=== PATIENT | female | born 1975 | race Caucasian/White ===

== ENCOUNTER → 2017-05-08 06:37 | Outpatient (CLI) | payer OTHER, SELFPAY ==
[2017-05-08 08:39] LABS: ALB/GLOB Ratio 1.1 RATIO (0.9-2.4); AST(SGOT) 11 U/L (15-37); Alanine Aminotransfer ALT/SGPT 33 U/L (13-56); Albumin, Serum 3.6 g/dL (3.2-5.0); Alkaline Phosphatase 66 U/L (45-117); Anion Gap 6 (5-15); BUN 11 mg/dL (7-18); BUN/Creat Ratio 15.3 RATIO (10-20); Calcium,Total 8.6 mg/dL (8.5-10.1); Chloride 106 mmol/L (98-107); Creatinine, Serum 0.72 mg/dL (0.55-1.02); EST Glomerular Filtration Rate 95 mL/min (>60); Est Glom Filt Rate - Afr Amer 115 mL/min (>60); Globulin 3.4 g/dL (2.2-4.2); Glucose 116 mg/dL (74-106); Potassium 3.6 mmol/L (3.5-5.1); Sodium Level 140 mmol/L (136-145); Thyroid Stim Hormone (TSH) 1.88 uIU/mL (0.358-3.74)
[2017-05-08 09:09] LABS: Vitamin D,25 Hydroxy 27.4 ng/mL (19.95-100.01)
== END ==
PROVIDERS: Family Provider Family Medicine; PCP Family Medicine; Visit Provider Internal Medicine Endocrinology, Diabetes & Metabolism
DX: E66.09 Other obesity due to excess calories (principal); E04.2 Nontoxic multinodular goiter; E55.9 Vitamin D deficiency, unspecified
CPT/HCPCS: 36415; 80053; 82306; 84443

== ENCOUNTER → 2017-08-13 09:47 | Outpatient (CLI) | payer OTHER, SELFPAY ==
[2017-08-13 11:11] LABS: ALB/GLOB Ratio 1.2 RATIO (0.9-2.4); AST(SGOT) 20 U/L (15-37); Alanine Aminotransfer ALT/SGPT 44 U/L (13-56); Alkaline Phosphatase 64 U/L (45-117); Anion Gap 7 (5-15); BUN 13 mg/dL (7-18); BUN/Creat Ratio 19.7 RATIO (10-20); Calcium,Total 8.8 mg/dL (8.5-10.1); Chloride 107 mmol/L (98-107); Creatinine, Serum 0.66 mg/dL (0.55-1.02); EST Glomerular Filtration Rate 105 mL/min (>60); Est Glom Filt Rate - Afr Amer 127 mL/min (>60); Globulin 3.3 g/dL (2.2-4.2); Glucose 86 mg/dL (74-106); Potassium 3.9 mmol/L (3.5-5.1); Protein, Total 7.3 g/dL (6.4-8.2); Sodium Level 140 mmol/L (136-145); Thyroid Stim Hormone (TSH) 0.99 uIU/mL (0.358-3.74)
== END ==
PROVIDERS: Family Provider Family Medicine; PCP Family Medicine; Visit Provider Internal Medicine Endocrinology, Diabetes & Metabolism
DX: E03.8 Other specified hypothyroidism (principal)
CPT/HCPCS: 80053; 84443

== ENCOUNTER 2017-08-20 12:31 | Day surgery (SDC) | payer OTHER, SELFPAY ==
--- NOTE | 2017-08-20 | IMM_PTH ---
PATIENT: BHAVYA ALBERTO LOC: EN U#:[id number] AGE/SX: 42/F ROOM: RE08/20/[address]: Dr. Chau Preston MD : 1975 BED: DIS: 08/20/2017 SPEC #: [id number] RECD: 08/22/17 12:53 STATUS: RYAN REManisha #: [id number] SAM: 08/20/17 00:[address]: Chau Preston DEPT: IMMUNOHISTOCHEMISTRY RECD BY: Daphney Blankenship ENTERED: 08/22/17 12:54 SP TYPE: IMMUNO OTHR DR: Dr. Krystina Calle DO Tissues: A - Stomach, NOS Procedures: H Pylori (initial) PHYSICIAN & INSTITUTION [place] [address] SPECIMEN INFORMATION: Tissue Source: A ? Antral biopsy Clinical Info: Reflux, epigastric pain Specimen Number: [id number] CPT code: 62352 METHODOLOGY: Deparaffinized sections of prefer/formalin-fixed tissue or PAP/DQ stained slides are incubated with monoclonal/polyclonal antibodies/oligonucleotide probes. Localization is made via biotin free immunoperoxidase method. Appropriate controls are performed and reacted as expected. Results on target cell population are indicated in the following table: RESULTS: ANTIBODY / CLONE RESULT Block A H Pylori (polyclonal) negative These tests were developed and their performance characteristics determined by [facility]. They may not have been cleared or approved by the U.S. Food and Drug Administration. The FDA has determined that such clearance or approval is not necessary. INTERPRETATION: A. Antral biopsy: Negative for Helicobacter pylori organisms. SJ:judy 08/22/17
--- NOTE | 2017-08-20 | EGD_PTH ---
PATIENT: BHAVYA ALBERTO LOC: EN U#:[id number] AGE/SX: 42/F ROOM: RE08/20/[address]: Dr. Chau Preston MD : 1975 BED: DIS: 08/20/2017 SPEC #: [id number] RECD: 08/20/17 16:25 STATUS: GUTIERREZMica ROBI #: [id number] SAM: 08/20/17 00:[address]: Chau Preston DEPT: SURGICAL PATHOLOGY RECD BY: Duong Hameed ENTERED: 08/21/17 08:58 SP TYPE: EGD BIOPSY JUNG DR: Dr. Krystina Calle DO Tissues: A - Gastric mucous membrane B - Gastric fundus C - Gastric mucous membrane D - Esophageal mucous membrane Procedures: Surgery Specimen Level IV HEADER OPERATION: EGD PRE-OP DIAGNOSIS: Reflux, epigastric pain TISSUE SUBMITTED: A ? Antral biopsy for path, B ? Fundic polyp biopsy, C ? GE function biopsy, D ? Mid esophageal biopsy MICROSCOPIC DIAGNOSIS A. Antral biopsy: Mild gastritis. See microscopic description and comment. B. Fundic polyp, biopsy: Consistent with fundic gland polyp. C. GE junction biopsy: Fragment of squamous mucosa with changes consistent with gastroesophageal reflux disease. D. Mid esophageal biopsy: Fragment of squamous mucosa with mild chronic inflammation. SJ:rg 08/22/17 COMMENT A. The results of immunohistochemistry for Helicobacter pylori will be reported separately ([id number]). MICROSCOPIC DESCRIPTION Slides are reviewed. A. The specimen shows fragments of gastric mucosa with chronic inflammatory cell infiltrates in the lamina propria consisting of lymphocytes and plasma cells, consistent with mild chronic gastritis. GROSS DESCRIPTION A - Received in fixative is one container labeled with the patient's name and designated antral biopsy. The specimen consists of one irregular fragment of light roach soft tissue that measures 0.5 x 0.2 x 0.1 cm. The specimen is totally submitted in one cassette. B - Received in fixative is one container labeled with the patient's name and designated fundic polyp biopsy. The specimen consists of one irregular fragment of light roach soft tissue that measures 0.4 x 0.3 x 0.1 cm. The specimen is totally submitted in one cassette. C - Received in fixative is one container labeled with the patient's name and designated GE junction biopsy. The specimen consists of one irregular fragment of light roach soft tissue that measures 0.7 x 0.2 x 0.1 cm. The specimen is totally submitted in one cassette. D - Received in fixative is one container labeled with the patient's name and designated mid esophageal biopsy. The specimen consists of one irregular fragment of light roach soft tissue that measures 0.7 x 0.3 x 0.1 cm. The specimen is totally submitted in one cassette. / SJ:rg 08/21/17 TC:3 CPT: 31146 x4
[2017-08-20 12:48] LABS: Internal QC Validated? YES +Cl - CLEAR BKGD; Pregnancy, Urine Negative Negative
[2017-08-20 13:01] VITALS: BP 112/54; PULSE 77; RESP 14; TEMP 36.9; O2SAT 97; BMI 37.2
[2017-08-20 16:16] VITALS: BP 105/69; BP 112/54; PULSE 87; RESP 16; TEMP 37; O2SAT 94
--- NOTE | 2017-08-20 16:18 | OP.PCM_ITS ---
Report of Operation Date of Procedure: 08/20/17 Pre-Operative Diagnosis: GERD, dysphagia to pills Post-Operative Diagnosis: proximal gastritis, small hiatal hernia, gastric polyp , distal esophagitis, Surgery/Procedure Performed:: EGD with Biopsy Type of Anesthesia:: MAC Anesthesiologist: Christian Roberts - ASA2 Specimen's removed: gastric, h pylori and path, gastric polyp, distal esophagus , mid esophagus Description of Procedure: The patient was brought to the endoscopy suite. Sign in was performed verifying patient, site, planned procedure, critical nursing information, the patient was monitored with cardiac, pulse oximetric, and blood pressure monitoring devices. Monitored anesthetic care was provided for sedation. Following IV sedation and after the oropharynx was sprayed with Cetacaine spray , a video gastroscope was inserted in the oropharynx and advanced down the esophagus without difficulty. The scope was advanced through the stomach, through the pylorus through the duodenum to the proximal jejunum. the jejunum and duodenum appeared unremarkable. The antral region appeared normal to trace gastritis. Biopsies obtained for H. pylori and pathology. As the scope was retroflexed. The patient noted to have a polyp in the proximal stomach. This was removed via polypectomy, biopsy with cold biopsy forceps. There was also some proximal gastric erosions consistent with proximal gastritis. The patient is small hiatal hernia. The distal esophagus demonstrated was felt to be reflux changes. A biopsy was performed. The distal esophagus. The mid esophagus appeared unremarkable. There was a mid esophageal biopsy to rule out eosinophilic esophagitis. The patient tolerated the procedure well and was brought to recovery in stable condition. she is being discharged with prescription for Prilosec and plans to follow up my office in one week.
[2017-08-20 16:20] VITALS: BP 105/69; BP 112/54; PULSE 80; RESP 18; O2SAT 95
[2017-08-20 16:25] VITALS: BP 112/54; BP 113/70; PULSE 78; RESP 18; O2SAT 96
[2017-08-20 16:34] VITALS: BP 112/54; BP 117/73; PULSE 70; RESP 16; TEMP 37; O2SAT 97
[2017-08-20 16:57] VITALS: BP 112/54
--- NOTE | 2017-08-21 19:12 | HP.PCM_ITS ---
History and Physical Date of Admission: 08/20/17 HISTORY AND PHYSICAL ? Libia Olivas 1975 ? REFERRING PHYSICIAN: ~~Krystina Calle DO ? CHIEF COMPLAINT: ~~Consult (Consult Gastritis/ dysphagia) ? HPI: The patient is a 42 year old female referred for endoscopy. ~Libia notes no history of colon complaints. ? The patient notes epigastric pain and difficulty swallowing for at least the last 2 months. ~She notes a burning more in the epigastrium. ~She notes the pain gets worse after eating foods. ~She has a long-standing history of acid reflux and has taken Tums in the past, but notes that her symptoms of worsened again over these last 2 months. ~The patient start [id number]-lhe-bxiotnd Prilosec for a few weeks and this caused resolution of her symptoms. ~When she stopped her medications, the symptoms returned immediately. ? Libia has not~undergone prior endoscopy. ~ ? The patient is being seen by me today at the request of Dr. Krystina Calle, ~ for my opinion and advice regarding epigastric pain likely peptic ulcer disease. ? ? PAST MEDICAL HISTORY PAST MEDICAL HISTORY Diagnosis Date ? Hypothyroid ? ? Obesity ? ? Sleep apnea ? ? ? PAST SURGICAL HISTORY PAST SURGICAL HISTORY Procedure Laterality Date ? SECTION HX ? ? ? D&C (MISSED AB 2ND TRIMESTER) ? ? HYSTERECTOMY HX ? 2013 ? LAP CHOLECYSTECT/CHOLANGIOGRAPHY ? 09/06/09 ? Normal IOC ? LASIK Bilateral 2006 ? ? CURRENT MEDICATIONS ? Current Outpatient Prescriptions: Cholecalciferol, Vitamin D3, (VITAMIN D) 1,000 unit cap Take 1,000 Units by mouth once daily. cyanocobalamin (VITAMIN B-12) 1,000 mcg tab Take 1,000 mcg by mouth once daily. Ascorbic Acid (VITAMIN C) 1,000 mg tablet Take 1,000 mg by mouth once daily. calcium carbonate (CALCARB 600 ORAL) Take by mouth. PROGESTERONE MICRONIZED ORAL Take ~by mouth. levothyroxine (SYNTHROID) 50 mcg tablet Take 75 mcg by mouth daily before breakfast. MULTI-VITAMIN ORAL Take ~by mouth. ? No current facility-administered medications for this visit. ? ALLERGIES: Nubain [Nalbuphine Hcl] ? PERSONAL HISTORY: SOCIAL HISTORY Social History ~~Marital status: ~~~~~~~~~~~~Spouse name: ~~~~~~~~~~~~~~~~~~ ~~Years of education: ~~~~~~~~~~~~~~~~Number of children: ~~~~~~~~~~ ? Social History Main Topics ~~Smoking status: Never Smoker ~~~~~~~~~~~~~~~~~~~~~~~~~~~~~~~~~~~~~~~~~~~~~~~~~ ~~~~~~~~ ? ~~Alcohol use: Yes ~~~~~~~~ ~~~~~Comment: Not often ~~Drug use: No ~~~~~~~~~ ~~Sexual activity: Yes ~~~~~~~~~~~~~~Partners with: Male ~~~~~ control/protection: Tubal Ligation ? ? FAMILY HISTORY: FAMILY HISTORY FAMILY HISTORY Problem Relation Age of Onset ? Hypertension Mother ? ? Heart Mother ? ? Heart Father ? ? Cancer Father ? ? ? thyroid ? Lipids Father ? ? Hypertension Father ? ? Stroke Paternal Grandfather ? ? REVIEW OF SYMPTOMS: ~~The review of systems data was entered by the nurse and reviewed by me ? There are no exam notes on file for this visit. ? REVIEW OF SYSTEMS: ?General:???The patient denies?fatigue, denies?weight loss, denies?weight gain, denies?feeling hot, and denies?feelings of cold. ?Eyes: ?The patient denies?glaucoma, denies?eye injury/surgery, wears? glasses or contacts. ?Ear/Nose/Throat: ?The patient denies?allergies, denies?hayfever, denies? ear infections, and denies?bloody noses. ?Cardiovascular: ?The patient denies?chest pain, denies?heart disease, denies?high blood pressure,denies?cardiac stent, denies?prior heart attack, denies?irregular heart beat, denies?high cholesterol, ?denies?poor circulation, denies?heart failure, other cardiac issues, denies?claudication, denies?cold feet, denies?peripheral arterial stent. ?Respiratory: ?The patient denies?tuberculosis, denies?pneumonia, denies? frequent cough, denies?pulmonary embolism, denies?shortness of breath, and denies?coughing up blood. ?Gastrointestinal: ?The patient NOTES?difficulty swallowing, denies?acid reflux, denies?ulcers, denies?vomiting, denies?jaundice/hepatitis, denies? gallbladder problems, denies?black or tarry stools, denies?hemorrhoids, denies? bleeding from rectum, denies?diverticulitis, denies?constipation, denies? diarrhea, denies?loss of stool control, and denies?hernias. ?Kidney/Bladder: ?The patient denies?kidney stones, denies?urine infections , and denies?bloody urine. ?Skin: ?The patient denies?a history of skin cancer, denies?bleeding/ changing moles, and denies?a history of skin rash. ?Neurologic: ?The patient denies?a history of epilepsy/convulsions, denies? headaches, denies?head/spinal injuries, and denies?stroke/TIA. ?Psychiatric: ?The patient denies?psychiatric medications, denies?depression , and denies?voices, denies?substance abuse. ?Endocrine: ?The patient NOTES?thyroid disorders, denies?diabetes, and denies?hormonal problems. ?Hematologic: ?The patient denies?a history of bruising, denies?bleeding, and denies?anemia, denies?blood clots. ?Infections: ?The patient denies?a history of measles and mumps, denies? rheumatic fever, and denies?sexually transmitted diseases. ?Musculoskeletal: ?The patient denies?back pain/injury, denies?back problems , denies?sciatica, denies?knee/foot trouble, denies?arthritis, or denies?gout. ? ? When was patient's last Mammogram screening? None ? ?Last Colonoscopy: ?None? ? Anika Cunningham LPN ? ? ~ PHYSICAL EXAMINATION: ? General: ~The patient is 42 year old female, well nourished, well hydrated in no acute distress. ~The patient is oriented to time, place, and person. ? VITALS: Blood pressure 128/68, pulse 84, temperature 37.2 ?C (98.9 ?F), height 167.6 cm (5' 6), weight 100.6 kg (221 lb 12.8 oz).~Body mass index is 35.8 kg/m ?.~ ? HEENT: ~Normal cephalic, ataumatic, pupils are equally round, sclera are anicteric, mucous membranes are moist, oropharynx is clear. ~Neck has no masses , asymmetry or lymphadenopathy. ~Thyroid is unremarkable. ? Respiratory: ~Clear to auscultation and percussion. ~Normal respiratory excursion and pattern. ? Cardiac: ~Examination is regular rate and rhythm. ? Abdominal exam: ~Soft, nontender, ~with no palpable masses. ~No hepatosplenomegaly. ~No palpable hernias. ? Rectal exam: exam deferred ? Extremities: ~no clubbing, cyanosis or edema. ~No adenopathy. ? Other: ? LABORATORY VALUES: As Noted ? RADIOLOGIC STUDIES: ~As Noted ? Assessment ~ IMPRESSION: Epigastric pain likely peptic ulcer disease ? PLAN: ~I plan to perform upper~endoscopy. ~~We discussed the risks and benefits of the planned endoscopy. ~I have informed the patient that complications can occur including failure to complete the endoscopy and perforation. ~The patient had the opportunity to ask questions concerning the planned endoscopy. ~My staff has also explained the procedure to the patient in understandable terms and has given the patient printed material concerning the procedure. ~The patient freely consents to surgery. ? ? ? I plan for monitored anesthetic care. ? Diagnoses: (R10.13) Epigastric pain ~(primary encounter diagnosis) ? A letter was sent to Dr. Krystina Calle DO~indicating the above finding for this patient. ~~ Return to Clinic: The patient is instructed to follow-up with me 1 week post operatively. ? Chau Preston MD
== END 2017-08-20 16:59 | disposition home or self-care (01) ==
LOC: EN 12:32 → AC 12:33
PROVIDERS: Family Provider Family Medicine; PCP Family Medicine; Visit Provider Surgery
PROC: 0DJ08ZZ Inspection of Upper Intestinal Tract, Via Natural or Artificial Opening Endoscopic (ICD-10-PCS; CPT 43235; principal; 2017-08-20 13:40)
DX: K21.9 Gastro-esophageal reflux disease without esophagitis (principal); K44.9 Diaphragmatic hernia without obstruction or gangrene; R13.10 Dysphagia, unspecified; K31.7 Polyp of stomach and duodenum; K29.70 Gastritis, unspecified, without bleeding; E03.9 Hypothyroidism, unspecified; E66.9 Obesity, unspecified; Z68.37 Body mass index [BMI] 37.0-37.9, adult; G47.30 Sleep apnea, unspecified; Z79.899 Other long term (current) drug therapy
CPT/HCPCS: 43239; 81025; 88305; 88342; J7120

== ENCOUNTER → 2018-01-29 11:31 | Outpatient (CLI) | payer OTHER, SELFPAY ==
[2018-02-01 11:06] LABS: HPV Reflexed? NOT INDICATED
== END ==
PROVIDERS: Visit Provider Obstetrics & Gynecology
DX: Z12.4 Encounter for screening for malignant neoplasm of cervix (principal)
CPT/HCPCS: 88175; G0145

== ENCOUNTER 2018-03-26 08:18 | Emergency (ER) | payer OTHER, SELFPAY ==
[2018-03-26 08:20] VITALS: BP 157/72; PULSE 83; RESP 12; TEMP 37.1; O2SAT 98; BMI 38.2
--- NOTE | 2018-03-26 08:32 | RAD_ITS ---
STUDY: X-RAY - LEFT KNEE REASON FOR EXAM: Female, 43 years old. Increasing knee pain and swelling. TECHNIQUE: 4 view(s) of the knee. COMPARISON: None. FINDINGS: Normal visualized distal femur. There is evidence of cortical scalloping in the proximal anterior tibia with overlying soft tissue swelling. Clinical correlation is recommended. Normal proximal tibiofibular articulation. Normal medial femorotibial compartment. Normal lateral femorotibial compartment. Normal patellofemoral articulation. Soft tissue swelling overlying the anterior proximal tibia. RAD/Knee 4 or More Views IMPRESSION: Cortical scalloping in the anterior proximal tibia as described with overlying soft tissue swelling. Clinical correlation is recommended with respect to the site of the pain. Electronically Signed: Gregg Flores MD at 9:30 EST Tel [phone], Service support ,
--- NOTE | 2018-03-26 08:32 | VDLE_ITS ---
Reason For Study: LLE pain RIGHT LEFT CFV is compressible, spontaneous, phasic, GSV is normal. competent and demonstrates normal CFV is compressible, spontaneous, phasic, augmentation. competent, and demonstrates normal Procedure augmentation. Exam performed portable in ED. FV is compressible, spontaneous, phasic, The exam was diagnostic. competent and demonstrates normal A preliminary report was called and/or faxed augmentation. to Dr. Leung & ED. POP V is compressible, spontaneous, phasic, competent and demonstrates normal augmentation. T/P Trunk is compressible. PTV is compressible. LT PerV is compressible. Interpretation Summary There is no evidence of left lower extremity deep vein thrombosis. Left greater saphenous vein appears patent and compressible segmentally. Normal flow patterns right common femoral vein. Ordering Physician: Popeye Leung Referring Physician: Krystina Calle Performed By: Conchis Bueno, PRINCE, RVT
--- NOTE | 2018-03-26 08:33 | ED.VISSUMM ---
- ER Visit Summary Date of Service: 03/26/18 Chief Complaint: Left knee and leg pain History of Present Illness: The patient is a 43 F who presents with pain to her left knee and leg that began approximately 10 days ago. Patient states the pain is constant. Patient states the pain started in her knee but is now going into her calf and ankle. Patient denies any specific trauma or injury. Patient does admit to some clicking and popping in her left knee. Patient states her swelling is worse after she has been on her feet for a long time. Patient states her pain and swelling is better in the morning when she first wakes up. Patient denies any paresthesias or weakness. She denies any fevers or chills. Physical Examination: Vital signs are stable. Patient is afebrile. Patient is in no acute distress. Musculoskeletal exam reveals tenderness over the medial aspect of the left knee. There is no effusion. There is no bony crepitance or step-off. There is no ecchymosis noted. There is no deformity noted. Range of motion was limited in flexion of the knee secondary to pain. There is pain with valgus stress testing. There is pain with Afia testing. There is no laxity appreciated. There is some mild tenderness of the left calf. There is no edema noted. Pedal pulses are equal bilateral. Sensation was intact to light touch in all digits. Test Results: X-rays of the left knee were obtained. There is no acute fracture or bony abnormality. Venous duplex of the left lower extremity was obtained. No evidence of DVT. Emergency Department Course and Treatment: Patient declined analgesics here in the emergency department. Patient was instructed to ice and elevate the left knee. Patient was instructed to follow-up with her primary care physician or Dr. Muñiz from orthopedics. Patient understood and was agreeable with the plan. All questions were answered. Disposition: Discharged home Impression: Left knee pain This note was generated with [employer] dictation software. It may contain incorrect words, spelling, and punctuation that were not noted in review of the chart prior to signing ED Disposition - Plan for ED Patient: Disposition: Home or Assisted Living Chief Complaint: Lower Extremity Injury Diagnosis: Left knee pain Instructions: ED Meniscal Injury Knee Poss Referrals: Krystina Calle DO [Primary Care Provider] - Escobar Muñiz DO [STAFF PHYSICIAN] -
== END 2018-03-26 09:41 | disposition home or self-care (01) ==
PROVIDERS: Emergency Provider Emergency Medicine; Family Provider Family Medicine; PCP Family Medicine
DX: M25.562 Pain in left knee (principal); M79.605 Pain in left leg; M79.89 Other specified soft tissue disorders; E03.9 Hypothyroidism, unspecified; Z79.899 Other long term (current) drug therapy
CPT/HCPCS: 73564; 93971; 99282

== ENCOUNTER → 2018-04-10 08:40 | Outpatient (CLI) | payer OTHER, SELFPAY ==
[2018-03-26 08:20] VITALS: BMI 38.2
--- NOTE | 2018-04-10 08:42 | BI_ITS ---
MAMMOGRAPHY - BILATERAL SCREENING REASON FOR EXAM: Female, 43 years old. Routine annual screening examination. PERTINENT HISTORY: Non-contributory. Occasional left breast pain. TECHNIQUE: Digital bilateral breast abdifatah (3D mammographic acquisition) in the CC and MLO projections. 2-D mediolateral oblique (MLO) and craniocaudad (CC) views of both breasts were obtained. CAD: Full Field Digital Mammography with Computer Added Detection was performed. COMPARISON: Comparison is made with prior study dated January 16, 2017 and May 27, 2015. FINDINGS: Breast Composition: There are scattered areas of fibroglandular density. There are no dominant masses or suspicious calcifications. The previously seen well-defined nodular density in the deep retroareolar region of the left breast is not seen at this time. No other significant abnormalities are identified. BI/SCREENING MAMM (CAD), BILAT IMPRESSION: Stable bilateral screening mammogram. Yearly follow-up mammogram recommended. (A) ASSESSMENT CATEGORY: BIRADS Category 1: Negative. A letter regarding these results will be sent to the patient by the facility within 30 days. Approximately 10% of breast cancers are not detected by mammography. A normal mammogram should not delay biopsy of a clinically suspicious abnormality. [id number] Electronically Signed: Gregg Flores MD at 10:51 EST Tel [phone], Service support ,
--- OUTSIDE RECORDS SUMMARY | 2018-06-14 21:39 | XMS RPT_ITS ---
:1975 Author Organization [facility] Support Name Relationship Address Phone MALISSA LARSON Unavailable [address] + [place] [address] PAXTON ALBERTO Unavailable [address] + [address] Unavailable [address] + [place] [address] MALISSA LARSON Unavailable [address] + [place] [address] PAXTON ALBERTO Unavailable [address] + [place] [id number] [facility] Unavailable [address] + [place] [address] MALISSA LARSON Unavailable [address] + [place] [address] PAXTON ALBERTO Unavailable [address] + [place] [phone] [facility] Unavailable [address] + [place] [address] MALISSA LARSON Unavailable [address] + [place] [address] PAXTON ALBERTO Unavailable [address] + [address] Unavailable [address] + [place] [address] MALISSA LARSON Unavailable [address] + [place] [address] PAXTON ALBERTO Unavailable [address] + [place] [phone] [facility] Unavailable [address] + [place] [address] MALISSA LARSON Unavailable [address] + [place] [phone] PAXTON ALBERTO Unavailable [address] + [address] Unavailable [address] + [place] [address] MALISSA LARSON Unavailable [address] + [place] [address] PAXTON ALBERTO Unavailable [address] + [address] Unavailable [address] + [place] [address] MALISSA LARSON Unavailable [address] + [place] [phone] PAXTON MATTA Unavailable [address] + [address] Unavailable [address] + [place] [address] Care Team Providers Name Role Phone CHAU MARTINEZ Attending Unavailable MALYS, KRYSTINA A Referring Unavailable Popeye Leung Attending Unavailable Malys, Krystina Primary Care Unavailable Deepa Shankar Attending Unavailable Deepa Shankar Referring Unavailable Malys, Krystina Primary Care Unavailable WIMYLENE, MIN Attending Unavailable WIMYLENE, MIN Referring Unavailable Malys, Krystina Primary Care Unavailable ALFREDO, MIN Attending Unavailable WIMYLENE, MIN Referring Unavailable Malys, Krystina Primary Care Unavailable Kary, Chau Attending Unavailable Malys, Krystina Primary Care Unavailable Kary, Chau Referring Unavailable Kary, Chau Attending Unavailable Malys, Krystina Primary Care Unavailable ASSESSMENT, HEALTH RISK Attending Unavailable ASSESSMENT, HEALTH RISK Referring Unavailable Malys, Krystina Primary Care Unavailable Deepa Shankar Attending Unavailable PROBLEMS PROBLEMS DATE TYPE CONDITION / CODE ATTENDING STATUS SOURCE 01/29/2018 Unknown Z12.4 - Encounter Deepa Shankar Active [facility] for screening for Community malignant neoplasm Hospital of cervix / Repository Z12.4(ICD-10) 08/13/2017 Unknown E03.8 - Other MIN FUENTES Active [facility] specified Community hypothyroidism / Hospital E03.8(ICD-10) Repository 05/08/2017 Unknown E66.09 - Other MIN FUENTES Active [facility] obesity due to Community excess calories / Hospital E66.09(ICD-10) Repository 05/08/2017 Unknown E04.2 - Nontoxic MIN FUENTES Active [facility] multinodular goiter Community / E04.2(ICD-10) Hospital Repository 05/08/2017 Unknown E55.9 - Vitamin D MIN FUENTES Active [facility] deficiency, Community unspecified / Hospital E55.9(ICD-10) Repository PROCEDURES PROCEDURES No Procedure Records FoundRESULTS RESULTS SCREENING MAMM (CAD), Observed: 04/10/2018 Status: F Source: [place] BILAT 8:42 AM [facility] REPOSITORY [facility] Imaging Services [address] [place] [address] SCREENING MAMM (CAD), BILAT MR#: [id number] Acct: [id number] Name: LIBIA ALBERTO Rep #: [id number] : 1975 F 43 From: Gregg Flores MD PCP: Krystina Calle DO Status: REG CLI Study: SCREENING MAMM (CAD), BILAT Date of Exam: 04/10/18 Exam# [id number] Ordering Dr: Deepa Shankar MD MAMMOGRAPHY - BILATERAL SCREENING REASON FOR EXAM: Female, 43 years old. Routine annual screening examination. PERTINENT HISTORY: Non-contributory. Occasional left breast pain. TECHNIQUE: Digital bilateral breast abdifatah (3D mammographic acquisition) in the CC and MLO projections. 2-D mediolateral oblique (MLO) and craniocaudad (CC) views of both breasts were obtained. CAD: Full Field Digital Mammography with Computer Added Detection was performed. COMPARISON: Comparison is made with prior study dated January 16, 2017 and May 27, 2015. FINDINGS: Breast Composition: There are scattered areas of fibroglandular density. There are no dominant masses or suspicious calcifications. The previously seen well-defined nodular density in the deep retroareolar region of the left breast is not seen at this time. No other significant abnormalities are identified. BI/SCREENING MAMM (CAD), BILAT IMPRESSION: Stable bilateral screening mammogram. Yearly follow-up mammogram recommended. (A) ASSESSMENT CATEGORY: BIRADS Category 1: Negative. A letter regarding these results will be sent to the patient by the facility within 30 days. Approximately 10% of breast cancers are not detected by mammography. A normal mammogram should not delay biopsy of a clinically suspicious abnormality. [id number] Electronically Signed: Gregg Flores MD at 10:51 EST Tel [phone], Service support , CC: Deepa Shankar MD; Krystina Calle DO Salt Refiner: Signed VENOUS DUPLEX LOWER Observed: 03/26/2018 Status: F Source: [place] EXTREMITY 4:55 PM [facility] REPOSITORY [facility] Cardiovascular Services [address] [place] [address] Venous Duplex US, Unilateral 03/26/18 0844 MR#: [id number] Acct: [id number] Name: LIBIA ALBERTO Rep #: [id number] : 1975 43 From: Ezra Tran MD Attending Dr: Status: DEP ER Ordering Dr: Popeye Leung DO Date: 03/26/18 Location: ED Sex: F C Admitted: Reason For Study: LLE pain RIGHT LEFT CFV is compressible, spontaneous, phasic, GSV is normal. competent and demonstrates normal CFV is compressible, spontaneous, phasic, augmentation. competent, and demonstrates normal Procedure augmentation. Exam performed portable in ED. FV is compressible, spontaneous, phasic, The exam was diagnostic. competent and demonstrates normal A preliminary report was called and/or faxed augmentation. to Dr. Leung AND ED. POP V is compressible, spontaneous, phasic, competent and demonstrates normal augmentation. T/P Trunk is compressible. PTV is compressible. LT PerV is compressible. Interpretation Summary There is no evidence of left lower extremity deep vein thrombosis. Left greater saphenous vein appears patent and compressible segmentally. Normal flow patterns right common femoral vein. Ordering Physician: Popeye Leung Referring Physician: Krystina Calle Performed By: Conchis Bueno RDCS, RVT 03/26/18 1654 Date Ezra Tran MD CC: Popeye Leung DO; Krystina Calle DO Date Dictated: 03/26/18 0844 Date Transcribed: 03/26/181653 Salt Refiner: Signed EMERGENCY DEPARTMENT Observed: 03/26/2018 Status: F Source: [place] SUMMARY 9:36 AM [facility] REPOSITORY [facility] Medical Records Department [address] [place] [address] Emergency Department Summary 03/26/18 0833 MR#: [id number] Acct: [id number] Name: LIBIA ALBERTO Rep #: [id number] : 1975 43 From: Popeye Leung DO PCP: Krystina Calle DO Status: REG ER - ER Visit Summary Date of Service: 03/26/18 Chief Complaint: Left knee and leg pain History of Present Illness: The patient is a 43 F who presents with pain to her left knee and leg that began approximately 10 days ago. Patient states the pain is constant. Patient states the pain started in her knee but is now going into her calf and ankle. Patient denies any specific trauma or injury. Patient does admit to some clicking and popping in her left knee. Patient states her swelling is worse after she has been on her feet for a long time. Patient states her pain and swelling is better in the morning when she first wakes up. Patient denies any paresthesias or weakness. She denies any fevers or chills. Physical Examination: Vital signs are stable. Patient is afebrile. Patient is in no acute distress. Musculoskeletal exam reveals tenderness over the medial aspect of the left knee. There is no effusion. There is no bony crepitance or step- off. There is no ecchymosis noted. There is no deformity noted. Range of motion was limited in flexion of the knee secondary to pain. There is pain with valgus stress testing. There is pain with Afia testing. There is no laxity appreciated. There is some mild tenderness of the left calf. There is no edema noted. Pedal pulses are equal bilateral. Sensation was intact to light touch in all digits. Test Results: X-rays of the left knee were obtained. There is no acute fracture or bony abnormality. Venous duplex of the left lower extremity was obtained. No evidence of DVT. Emergency Department Course and Treatment: Patient declined analgesics here in the emergency department. Patient was instructed to ice and elevate the left knee. Patient was instructed to follow-up with her primary care physician or Dr. Muñiz from orthopedics. Patient understood and was agreeable with the plan. All questions were answered. Disposition: Discharged home Impression: Left knee pain This note was generated with [email or web address] dictation software. It may contain incorrect words, spelling, and punctuation that were not noted in review of the chart prior to signing ED Disposition - Plan for ED Patient: Disposition: Home or Assisted Living Chief Complaint: Lower Extremity Injury Diagnosis: Left knee pain Instructions: ED Meniscal Injury Knee Poss Referrals: Krystina Calle DO [Primary Care Provider] - Escobar Muñiz DO [STAFF PHYSICIAN] - What to do if you have Problems For any increased pain, shortness of breath, bleeding, nausea or vomiting, chest pain, or any unexpected problems, contact your Primary Care Provider. Call [facility] ([phone]) or report to the closest Emergency Room. Call 911 if necessary. 03/26/18 0936 <Electronically signed by Popeye Leung DO> Date Popeye Leung DO Cosigner Signature (If Indicated): Date CC: Krystina Calle DO KNEE 4 OR MORE Observed: 03/26/2018 Status: F Source: [place] VIEWS 8:33 AM [facility] REPOSITORY [facility] Imaging Services [address] [place] [address] Knee 4 or More Views MR#: [id number] Acct: [id number] Name: LIBIA ALBERTO Rep #: [id number] : 1975 F 43 From: Gregg Flores MD PCP: Krystina Calle DO Status: REG ER Study: Knee 4 or More Views Date of Exam: 03/26/18 Exam# [id number] Ordering Dr: Popeye Leung DO STUDY: X-RAY - LEFT KNEE REASON FOR EXAM: Female, 43 years old. Increasing knee pain and swelling. TECHNIQUE: 4 view(s) of the knee. COMPARISON: None. FINDINGS: Normal visualized distal femur. There is evidence of cortical scalloping in the proximal anterior tibia with overlying soft tissue swelling. Clinical correlation is recommended. Normal proximal tibiofibular articulation. Normal medial femorotibial compartment. Normal lateral femorotibial compartment. Normal patellofemoral articulation. Soft tissue swelling overlying the anterior proximal tibia. RAD/Knee 4 or More Views IMPRESSION: Cortical scalloping in the anterior proximal tibia as described with overlying soft tissue swelling. Clinical correlation is recommended with respect to the site of the pain. Electronically Signed: Gregg Flores MD at 9:30 EST Tel [phone], Service support , CC: Popeye Leung DO; Krystina Calle DO Salt Refiner: Signed PAP I-G W/RFX HRHPV Collected: 01/29/2018 Status: F Source: [place] 9:45 AM [facility] REPOSITORY Order Comment: CYTOLOGY INFORMATION: - CLINICAL INFORMATION: HYSTERECTOMY - DATE LMP/MENOPAUSE: - COLLECTION VIAL: Thin Prep Vial - OBEDIENCE TRAINER SOURCE: VAGINAL - COLLECTION TECHNIQUE: BRUSH/SPATULA Specimen Comment: [id number] Specimen Comment: Source.............Vagina Specimen Comment: LMP / Prev Treat...Hyst Specimen Comment: No. of containers..01 ThinPrep Vial TYPE CODE TESTS RESULT OUT OF RANGE REFERENCE UNITS LAB L7400.0800 . Normal DIAGN Comment Result Comment: NEGATIVE FOR INTRAEPITHELIAL LESION AND MALIGNANCY. LAB L7400.0900 . Normal ADEQ Comment Result Comment: Satisfactory for evaluation. No endocervical cells are present. This is consistent with a history of hysterectomy. LAB L7400.1400 . Normal PERFORM Comment Result Comment: Irene Oakley, Teletypist (ASCP) LAB L7400.2575 . Normal TEST METHOD Comment Result Comment: This liquid based ThinPrep(R) pap test was screened with the use of an image guided system. LAB L7400.2600 . Normal . COMM LAB L7400.2700 . Normal PAPSMR Comment Result Comment: The Pap smear is a screening test designed to aid in the detection of premalignant and malignant conditions of the uterine cervix. It is not a diagnostic procedure and should not be used as the sole means of detecting cervical cancer. Both false-positive and false-negative reports do occur. LAB L7400.2800 . Normal HPV RFLX Comment Result Comment: The HPV DNA reflex criteria were not met with this specimen result therefore, no HPV testing was performed. Performed at: - [facility] [id number] Supervisor Paste Plant: Kira Pearl MD, Phone: [phone] Performed By: #### L7400.0350 #### [facility] (refer to report for specific site) refer to report for address and phone number SELENA MILLER Collected: 11/26/2017 Status: F Source: [place] 6:37 AM [facility] REPOSITORY TYPE CODE TESTS RESULT OUT OF RANGE REFERENCE UNITS LAB L100.1000 4.4-11.0 K/mm3 Normal WBC 7.3 LAB L100.1200 4.2-5.4 M/mm3 Normal RBC 4.83 LAB L100.1300 12.0-15.0 g/dl Normal HGB 13.0 LAB L100.1400 37-47 % Normal HCT 39.8 LAB L100.1500 81-99 fL Normal MCV 82.4 LAB L100.1600 27.0-32.0 pg Low MCH 26.9 LAB L100.1700 32-36 g/gl Normal MCHC 32.7 LAB L100.1810 11.6-14.6 % Normal RDW CV 13.3 LAB L100.1820 35.1-43.9 fl Normal RDW SD 39.6 LAB L100.1900 150-450 K/mm3 Normal PLT 286 LAB L100.2000 6.2-12.0 fl Normal MPV 9.9 LAB L100.2110 47-70 % Normal NEUT% 66.5 LAB L100.2210 19-41 % Normal LY% 22.9 LAB L100.2310 0-10 % Normal MONO% 7.1 LAB L100.2410 0-5 % Normal EO% 2.7 LAB L100.2510 0-1 % Normal BASO% 0.5 LAB L100.2620 2.0-7.7 X10 3/uL Normal Absolute Neut 4.9 LAB L100.2720 0.83-4.51 X10 3/ul Normal Absolute Lymph 1.68 Performed By: #### L100.0200 #### [facility] [address] [facility] [place], [address] NICOTINE URINE DRUG Collected: 11/26/2017 Status: F Source: [place] SCREEN 6:37 AM [facility] REPOSITORY TYPE CODE TESTS RESULT OUT OF RANGE REFERENCE UNITS LAB L505.6250 TO BE Normal CONFIRMED Result Comment: CONFIRMATORY TESTING FOR ALL POSITIVE URINE DRUG SCREEN RESULTS WILL ONLY BE SENT OUT UPON PHYSICIAN ORDER. The results of Urine Drug Screen methods provide only preliminary analytical test results. A more specific alternate chemical method must be used in order to obtain a confirmed analytical result. Gas chromatography/mass spectrometery (GC/MS) is the preferred confirmatory method. Clinical consideration and professional judgement should be applied to any drug of abuse test result, particularly when preliminary positive results are used. LAB L505.6270 <200 ng/mL Normal COT DRG Negative SCREEN Result Comment: Cotinine is the first-stage metabolite of Nicotine. Performed By: #### L505.6240 #### [facility] [address] [place], [address] EMPLOYEE PROFILE Collected: 11/26/2017 Status: F Source: [place] 6:37 AM [facility] REPOSITORY TYPE CODE TESTS RESULT OUT OF RANGE REFERENCE UNITS LAB L501.0100 74-106 mg/dL High GLU 120 Result Comment: Fasting Glucose result from 100 to 125 mg/dL suggests IMPAIRED HOMEOSTASIS per A.D.A. criteria. Please note revised GLUCOSE reference range effective 2017. LAB L501.1000 7-18 mg/dL Normal BUN 11 LAB L501.1100 0.55-1.02 mg/dL Normal CREAT,SERUM 0.73 Result Comment: The validity of the calculated GFR AND GFRAA in patients over 70 years has not been determined. Clinical correlation is essential. LAB L501.1110 >60 mL/min Normal EST GFR 94 Result Comment: Non- GFR Calc LAB L501.1115 >60 mL/min Normal EST GFR - AA 113 Result Comment: GFR Calc LAB L501.1300 10-20 RATIO Normal BUN/CRE 15.1 LAB L501.1400 2.6-6.0 mg/dL Normal URIC 5.8 Result Comment: The drugs N-Acetylcysteine and Metamizole may falsely depress this assay. LAB L501.1500 6.4-8.2 g/dL Normal T PROT 6.8 LAB L501.1800 3.2-5.0 g/dL Normal ALB 3.6 LAB L501.1950 2.2-4.2 g/dL Normal GLOB 3.2 LAB L501.2000 0.9-2.4 RATIO Normal A/G 1.1 LAB L501.2200 8.5-10.1 mg/dL Low CA 8.4 LAB L501.2300 2.5-4.9 mg/dL Normal PHOS 3.8 LAB L501.4100 15-37 U/L Normal AST 20 LAB L501.4305 45-117 U/L Normal ALK P 70 LAB L501.4405 13-56 U/L Normal ALT 49 LAB L501.4600 0.20-1.00 mg/dL Normal T BILI 0.40 LAB L501.4700 0.00-0.30 mg/dL Normal D BILI 0.11 LAB L501.4900 200 mg/dL Normal CHOL 150 Result Comment: <200 mg/dL Desirable 200-240 mg/dL Borderline >240 mg/dL High Risk LAB L501.5000 mg/dL Normal TRIG 130 Result Comment: The drugs N-Acetylcysteine and Metamizole may falsely depress this assay. Serum Triglycerides Reference Interval Normal <150 mg/dL Borderline high 150 - 199 mg/dL High 200 - 499 mg/dL Very High > or = 500 mg/dL LAB L501.5300 136-145 mmol/L Normal NA 144 LAB L501.5600 3.5-5.1 mmol/L Normal K 3.7 LAB L501.5900 98-107 mmol/L High CL 108 LAB L501.6100 21.0-32.0 mmol/L Normal CO2 26.0 LAB L501.6200 5-15 Normal GAP 10 LAB L501.6400 mg/dL Low HDL 32 Result Comment: The drugs N-Acetylcysteine and Metamizole may falsely depress this assay. Reference Range HDL <40 mg/dL Low HDL Cholesterol HDL >or= 60 mg/dL High HDL Cholesterol LAB L501.6475 Normal CHOL:HDL 4.70 LAB L501.6500 0-130 mg/dL Normal LDL 92 LAB L501.6600 5-40 mg/dL Normal VLDL 26 LAB L504.2610 84-246 U/L Normal LDH 132 Performed By: #### L500.2900 #### [facility] [address] [place], [address] URINALYSIS, EMPLOYEE Collected: 11/26/2017 Status: F Source: [place] 6:37 AM [facility] REPOSITORY TYPE CODE TESTS RESULT OUT OF RANGE REFERENCE UNITS LAB L400.3000 Yellow COLOR Normal Yellow LAB L400.3050 Clear Normal CLARITY Sl. Cloudy LAB L400.3200 Normal mg/dl Normal GLUCOSE, UR Normal LAB L400.3300 Negative mg/dL Normal BILIRUBIN URINE Negative LAB L400.3400 Negative mg/dl Normal KETONE UR Negative LAB L400.3465 1.002-1.030 Normal SP.GR. DIPSTX 1.025 LAB L400.3550 5.0 - 8.0 pH UR Normal 5.0 LAB L400.3600 Negative mg/dl High PROT 15 DIPSTX LAB L400.3700 Normal mg/dl Normal UROBILI Normal LAB L400.3750 Negative Normal NITRITE UR Negative LAB L400.3780 Negative /ul High 10 OCCULT BLOOD-UR LAB L400.3800 Negative /ul LEUK Normal ESTERASE Negative Performed By: #### L400.0100 #### [facility] [address] [place], [address] PROGRESS Observed: 08/25/2017 Status: COMPLETED Source: [place] 11:29 AM [facility] REPOSITORY O ID: [id number] Author: Chau Martinez Service: (none) Author Type: Physician Type: Progress Notes Filed: 08/25/2017 11:32 AM Note Text: OPERATIVE NOTATION FOR [facility] SURGICAL PROCEDURE. August 20, 2017 Libia Alberto 1975 [id number] female PROCEDURE: EGD WITH BIOPSY - [id number] SURGEON: Sukhjinder Martinez M.D. FACS RN CIRCULATING: None DEPT: W PROVIDER: [id number] Martinez MD POS: [id number] DIAGNOSIS: (K21.9) Gastroesophageal reflux disease without esophagitis (primary encounter diagnosis) ASA CLASS: 2 - mild FINDINGS: mild gastritis, mild GERD with esophagitis COMPLICATIONS: None PMHx - PAST MEDICAL HISTORY Diagnosis Date - Hypothyroid - Obesity - Sleep apnea COMORBIDITIES - None Post Op Occurrences - None Wound Classification - Clean Contaminated Operative note dictated in the [facility] dictation system. Chau Martinez MD HISTORY AND PHYSICAL Observed: 08/21/2017 Status: F Source: [place] EXAM 7:12 PM [facility] REPOSITORY [facility] Medical Records Department [address] [place] [address] History and Physical 08/21/17 191 MR#: [id number] Acct: [id number] Name: LIBIA ALBERTO Rep #: [id number] : 1975 42 From: Chau Martinez MD PCP: Krystina Calle DO Status: DEP [facility] Location: EN History and Physical Date of Admission: 08/20/17 HISTORY AND PHYSICAL Libia Alberto 1975 REFERRING PHYSICIAN: Krystina Calle DO CHIEF COMPLAINT: Consult (Consult Gastritis/ dysphagia) HPI: The patient is a 42 year old female referred for endoscopy. Libia notes no history of colon complaints. The patient notes epigastric pain and difficulty swallowing for at least the last 2 months. She notes a burning more in the epigastrium. She notes the pain gets worse after eating foods. She has a long-standing history of acid reflux and has taken Tums in the past, but notes that her symptoms of worsened again over these last 2 months. The patient start [id number] Prilosec for a few weeks and this caused resolution of her symptoms. When she stopped her medications, the symptoms returned immediately. Libia has not undergone prior endoscopy. The patient is being seen by me today at the request of Dr. Krystina Calle DO for my opinion and advice regarding epigastric pain likely peptic ulcer disease. PAST MEDICAL HISTORY PAST MEDICAL HISTORY Diagnosis Date Hypothyroid Obesity Sleep apnea PAST SURGICAL HISTORY PAST SURGICAL HISTORY Procedure Laterality Date SECTION HX D AND C (MISSED AB 2 ND TRIMESTER) 03 HYSTERECTOMY HX 2013 LAP CHOLECYSTECT/CHOLANGIOGRAPHY 09/06/09 N ormal IOCLASIK Bilateral 2006 CURRENT MEDICATIONS ALLERGIES: Nubain [Nalbuphine Hcl] PERSONAL HISTORY: SOCIAL HISTORY Social History Marital status: Spouse name: Years of education: Number of children: Social History Main Topics Smoki ng status: Never Smoker Alcohol u se: Yes Comment: Not often Drug use: No Sexual activity: Yes Partners with: Male control/protection: Tubal Ligation FAMILY HISTORY: FAMILY HISTORY FAMILY HISTORY Problem Relation Age of Onset Hypertension Mother Heart Mother He art Father Cancer Father thyroid Lipids Father Hypertension Father Str vivien Paternal Grandfather REVIEW OF SYMPTOMS: The review of systems data was entered by the nurse and reviewed by me There are no exam notes on file for this visit. REVIEW OF SYSTEMS: General: The patient denies fatigue, denies weight loss, denies weigh t gain, denies feeling hot, and denies feelings of cold. Eyes: The patient denies glaucom a, denies eye injury/surgery, wears glasses or contacts. Ear/Nose/Throat: The patient den ies allergies, denies hayfever, denies ear infections, and denies bloody noses. Cardiovasc ular: The patient denies chest pain, denies heart disease, denies high blood pressure,denies c ardiac stent, denies prior heart attack, denies irregular heart beat, denies high cholesterol, denies poor circulation, denies heart failure, other cardiac issues, denies claudication, trinidad es cold feet, denies peripheral arterial stent. Respiratory: The patient denies tuberculo sis, denies pneumonia, denies frequent cough, denies pulmonary embolism, denies shortness of br eath, and denies coughing up blood. Gastrointestinal: The patient NOTES difficulty swallo wing, denies acid reflux, denies ulcers, deniesvomiting, denies jaundice/hepatitis, denies gall bladder problems, denies black or tarry stools, denies hemorrhoids, denies bleeding from rectum , denies diverticulitis, denies constipation, denies diarrhea, denies loss of stool control, an d denies hernias. Kidney/Bladder: The patient denies kidney stones, denies urine infectio ns, and denies bloody urine. Skin: The patient denies a history of skin cancer, denies bl eeding/changing moles, and denies a history of skin rash. Neurologic: The patient denies a history of epilepsy/convulsions, denies headaches, denies head/spinal injuries, and denies st roke/TIA. Psychiatric: The patient denies psychiatric medications, denies depression, and denies voices, denies substance abuse. Endocrine: The patient NOTES thyroid disorders, d enies diabetes, and denies hormonal problems. Hematologic: The patient denies a history o f bruising, denies bleeding, and denies anemia, denies blood clots. Infections: The jose lemus denies a history of measles and mumps, denies rheumatic fever, and denies sexually transmitt ed diseases. Musculoskeletal: The patient denies back pain/injury, denies back problems, denies sciatica, denies knee/foot trouble, denies arthritis, or denies gout. When was jose lemus's last Mammogram screening? None Last Colonoscopy: None Anika Cunningham LPN PHYSICAL EXAMINATION: General: The patient is 42 year old female, well nourished, well hydrated in no acute distress. The patient is oriented to time, place, and person. VITALS: Blood pressure 128/68, pulse 84, temperature 37.2 C (98.9 F), height 167.6 cm (5' 6), weight 100.6 kg (221 lb 12.8 oz). Body mass index is 35.8 kg/m . HEENT: Normal cephalic, ataumatic, pupils are equally round, sclera are anicteric, mucous membranes are moist, oropharynx is clear. Neck has no masses, asymmetry or lymphadenopathy. Thyroid is unremarkable. Respiratory: Clear to auscultation and percussion. Normal respiratory excursion and pattern. Cardiac: Examination is regular rate and rhythm. Abdominal exam: Soft, nontender, with no palpable masses. No hepatosplenomegaly. No palpable hernias. Rectal exam: exam deferred Extremities: no clubbing, cyanosis or edema. No adenopathy. Other: LABORATORY VALUES: As Noted RADIOLOGIC STUDIES: As Noted Assessment IMPRESSION: Epigastric pain likely peptic ulcer disease PLAN: I plan to perform upper endoscopy. We discussed the risks and benefits of the planned endoscopy. I have informed the patient that complications can occur including failure to complete the endoscopy and perforation. The patient had the opportunity to ask questions concerning the planned endoscopy. My staff has also explained the procedure to the patient in understandable terms and has given the patient printed material concerning the procedure. The patient freely consents to surgery. I plan for monitored anesthetic care. Diagnoses: (R10.13) Epigastric pain (primary encounter diagnosis) A letter was sent to Dr. Krystina Calle DO indicating the above finding for this patient. Return to Clinic: The patient is instructed to follow-up with me 1 week post operatively. Chau Martinez MD 08/21/171911 <Electronically signed by Cahu Martinez MD> Date Chau Martinez MD Cosigner Signature: Date (if applicable) CC: Krystina Calle DO; hCau Martinez MD Signed OPERATIVE REPORT Observed: 08/20/2017 Status: F Source: [place] 7:00 PM [facility] REPOSITORY [facility] Medical Records Department [address] [place] [address] Operative Report 08/20/17 1616 MR#: [id number] Acct: [id number] Name: LIBIA ALBERTO Rep #: [id number] : 1975 42 From: Chau Martinez MD PCP: Krystina Calle DO Status: DEP [facility] Location: EN Report of Operation Date of Procedure: 08/20/17 Pre-Operative Diagnosis: GERD, dysphagia to pills Post-Operative Diagnosis: proximal gastritis, small hiatal hernia, gastric polyp, distal esophagitis, Surgery/Procedure Performed:: EGD with Biopsy Type of Anesthesia:: MAC Anesthesiologist: Christian Roberts - ASA2 Specimen's removed: gastric, h pylori and path, gastric polyp, distal esophagus, mid esophagus Description of Procedure: The patient was brought to the endoscopy suite. Sign in was performed verifying patient, site, planned procedure, critical nursing information, the patient was monitored with cardiac, pulse oximetric, and blood pressure monitoring devices. Monitored anesthetic care was provided for sedation. Following IV sedation and after the oropharynx was sprayed with Cetacaine spray, a video gastroscope was inserted in the oropharynx and advanced down the esophagus without difficulty. The scope was advanced through the stomach, through the pylorus through the duodenum to the proximal jejunum. the jejunum and duodenum appeared unremarkable. The antral region appeared normal to trace gastritis. Biopsies obtained for H. pylori and pathology. As the scope was retroflexed. The patient noted to have a polyp in the proximal stomach. This was removed via polypectomy, biopsy with cold biopsy forceps. There was also some proximal gastric erosions consistent with proximal gastritis. The patient is small hiatal hernia. The distal esophagus demonstrated was felt to be reflux changes. A biopsy was performed. The distal esophagus. The mid esophagus appeared unremarkable. There was a mid esophageal biopsy to rule out eosinophilic esophagitis. The patient tolerated the procedure well and was brought to recovery in stable condition. she is being discharged with prescription for Prilosec and plans to follow up my office in one week. 08/20/17 1900 <Electronically signed by Chau Martinez MD> Date Chau Martinez MD CC: Krystina Calle DO; Chau Martinez MD Signed ,URINE Collected: 08/20/2017 Status: F Source: [place] 12:40 PM [facility] REPOSITORY TYPE CODE TESTS RESULT OUT OF REFERENCE UNITS RANGE LAB L400.8000 Negative Normal HCGUQUAL Negative Result Comment: Very dilute urine specimens, as indicated by a low specific gravity, may not contain enrollment eligibility representative levels of hCG. If is still suspected, a first morning urine specimen should be collected 48 hours later and tested. Performed By: #### [id number] #### [facility] [address] [place], [address] CNOP Observed: 08/20/2017 Status: COMPLETED Source: [place] 12:00 AM [facility] REPOSITORY Operative Note (Enc) (GENSWS) Progress Notes: Chau Martinez MD 08/25/2017 11:32 AM Signed OPERATIVE NOTATION FOR [facility] SURGICAL PROCEDURE. August 20, 2017 Libia Alberto 1975 [id number] female PROCEDURE: EGD WITH BIOPSY - [id number] SURGEON: Sukhjinder Martinez M.D. FACS RN CIRCULATING: None DEPT: WQ PROVIDER: [id number] Martinez MD POS: [id number] DIAGNOSIS: (K21.9) Gastroesophageal reflux disease without esophagitis (primary encounter diagnosis) ASA CLASS: 2 - mild FINDINGS: mild gastritis, mild GERD with esophagitis COMPLICATIONS: None PMHx - PAST MEDICAL HISTORY Diagnosis Date - Hypothyroid - Obesity - Sleep apnea COMORBIDITIES - None Post Op Occurrences - None Wound Classification - Clean Contaminated Operative note dictated in the [facility] dictation system. Chau Martinez MD Encounter Status:Closed by CHAU MARTINEZ MD on 08/25/17 EGD ([facility] SITE) Observed: 08/20/2017 Status: F Source: [place] 12:00 AM [facility] REPOSITORY Patient: LIBIA ALBERTO : 1975 (42/F) Acct Num: [id number] Phys: Chau Martinez MD Unit Num: [id number] Loc: EN Specimen: [id number] Received: 08/20/17 - 1625 Spec Type: EGD BIOPSY TISSUES TISSUES: A. Gastric mucous membrane B. Gastric fundus C. Gastric mucous membrane D. Esophageal mucous membrane COMMENT A. The results of immunohistochemistry for Helicobacter pylori will be reported separately ([id number]). GROSS DESCRIPTION A - Received in fixative is one container labeled with the patient's name and designated antral biopsy. The specimen consists of one irregular fragment of light roach soft tissue that measures 0.5 x 0.2 x 0.1 cm. The specimen is totally submitted in one cassette. B - Received in fixative is one container labeled with the patient's name and designated fundic polyp biopsy. The specimen consists of one irregular fragment of light roach soft tissue that measures 0.4 x 0.3 x 0.1 cm. The specimen is totally submitted in one cassette. C - Received in fixative is one container labeled with the patient's name and designated GE junction biopsy. The specimen consists of one irregular fragment of light roach soft tissue that measures 0.7 x 0.2 x 0.1 cm. The specimen is totally submitted in one cassette. D - Received in fixative is one container labeled with the patient's name and designated mid esophageal biopsy. The specimen consists of one irregular fragment of light roach soft tissue that measures 0.7 x 0.3 x 0.1 cm. The specimen is totally submitted in one cassette. / SJ:judy 08/21/17 TC:3 CPT: 68627 x4 HEADER OPERATION: EGD PRE-OP DIAGNOSIS: Reflux, epigastric pain TISSUE SUBMITTED: A Antral biopsy for path, B Fundic polyp biopsy, C GE function biopsy, D Mid esophageal biopsy MICROSCOPIC DESCRIPTION Slides are reviewed. A. The specimen shows fragments of gastric mucosa with chronic inflammatory cell infiltrates in the lamina propria consisting of lymphocytes and plasma cells, consistent with mild chronic gastritis. MICROSCOPIC DIAGNOSIS A. Antral biopsy: Mild gastritis. See microscopic description and comment. B. Fundic polyp, biopsy: Consistent with fundic gland polyp. C. GE junction biopsy: Fragment of squamous mucosa with changes consistent with gastroesophageal reflux disease. D. Mid esophageal biopsy: Fragment of squamous mucosa with mild chronic inflammation. SJ:judy 08/22/17 Signed Erik Jarrett 08/22/17 <signature on file> Performed By: #### PEGD #### [facility] [address] [place] [address]. [place], [place], [id number] IMMUNOHISTOCHEMISTRY Observed: 08/20/2017 Status: F Source: [place] 12:00 [facility] REPOSITORY Patient: LIBIA ALBERTO : 1975 (42/F) Acct Num: [id number] Phys: Chau Martinez MD Unit Num: [id number] Loc: EN Specimen: [id number] Received: 08/22/17 - 1253 Spec Type: IMMUNO TISSUES TISSUES: A. Stomach, NOS SPECIMEN INFORMATION: Tissue Source: A Antral biopsy Clinical Info: Reflux, epigastric pain Specimen Number: [id number] CPT code: 29868 METHODOLOGY: Deparaffinized sections of prefer/formalin-fixed tissue or PAP/DQ stained slides are incubated with monoclonal/polyclonal antibodies/oligonucleotide probes. Localization is made via biotin free immunoperoxidase method. Appropriate controls are performed and reacted as expected. Results on target cell population are indicated in the following table: RESULTS: ANTIBODY / CLONE RESULT Block A H Pylori (polyclonal) negative These tests were developed and their performance characteristics determined by [facility]. They may not have been cleared or approved by the U.S. Food and Drug Administration. The FDA has determined that such clearance or approval is not necessary. INTERPRETATION: A. Antral biopsy: Negative for Helicobacter pylori organisms. SJ:judy 08/22/17 PHYSICIAN AND INSTITUTION [address] [address] Signed Erik Harrisin 08/22/17 <signature on file> Performed By: #### PIMM #### [facility] [address] [place], [address] PROGRESS Observed: 08/16/2017 Status: COMPLETED Source: [place] 1:[address] [facility] REPOSITORY HNO ID: [id number] Author: Chau Martinez Service: (none) Author Type: Physician Type: Progress Notes Filed: 08/17/2017 12:03 PM Note Text: HISTORY AND PHYSICAL Libia Alberto 1975 REFERRING PHYSICIAN: Krystina Calle DO CHIEF COMPLAINT: Consult (Consult Gastritis/ dysphagia) HPI: The patient is a 42 year old female referred for endoscopy. Libia notes no history of colon complaints. The patient notes epigastric pain and difficulty swallowing for at least the last 2 months. She notes a burning more in the epigastrium. She notes the pain gets worse after eating foods. She has a long-standing history of acid reflux and has taken Tums in the past, but notes that her symptoms of worsened again over these last 2 months. The patient start [id number] Prilosec for a few weeks and this caused resolution of her symptoms. When she stopped her medications, the symptoms returned immediately. Libia has not undergone prior endoscopy. The patient is being seen by me today at the request of Dr. Krystina Calle DO for my opinion and advice regarding epigastric pain likely peptic ulcer disease. PAST MEDICAL HISTORY Diagnosis Date - Hypothyroid - Obesity - Sleep apnea PAST SURGICAL HISTORY Procedure Laterality Date - SECTION HX - DANDC (MISSED AB 2ND TRIMESTER) 03 - HYSTERECTOMY HX 2013 - LAP CHOLECYSTECT/CHOLANGIOGRAPHY 09/06/09 Normal IOC - LASIK Bilateral 2006 Current Outpatient Prescriptions: Cholecalciferol, Vitamin D3, (VITAMIN D) 1,000 unit cap Take 1,000 Units by mouth once daily. cyanocobalamin (VITAMIN B-12) 1,000 mcg tab Take 1,000 mcg by mouth once daily. Ascorbic Acid (VITAMIN C) 1,000 mg tablet Take 1,000 mg by mouth once daily. calcium carbonate (CALCARB 600 ORAL) Take by mouth. PROGESTERONE MICRONIZED ORAL Take by mouth. levothyroxine (SYNTHROID) 50 mcg tablet Take 75 mcg by mouth daily before breakfast. MULTI-VITAMIN ORAL Take by mouth. No current facility-administered medications for this visit. ALLERGIES: Nubain [Nalbuphine Hcl] PERSONAL HISTORY: Social History Marital status: Spouse name: Years of education: Number of children: Social History Main Topics Smoking status: Never Smoker Alcohol use: Yes Comment: Not often Drug use: No Sexual activity: Yes Partners with: Male control/protection: Tubal Ligation FAMILY HISTORY: FAMILY HISTORY Problem Relation Age of Onset - Hypertension Mother - Heart Mother - Heart Father - Cancer Father thyroid - Lipids Father - Hypertension Father - Stroke Paternal Grandfather REVIEW OF SYMPTOMS: The review of systems data was entered by the nurse and reviewed by me There are no exam notes on file for this visit. REVIEW OF SYSTEMS: General: The patient denies fatigue, denies weight loss, denies weight gain, denies feeling hot, and denies feelings of cold. Eyes: The patient denies glaucoma, denies eye injury/surgery, wears glasses or contacts. Ear/Nose/Throat: The patient denies allergies, denies hayfever, denies ear infections, and denies bloody noses. Cardiovascular: The patient denies chest pain, denies heart disease, denies high blood pressure,denies cardiac stent, denies prior heart attack, denies irregular heart beat, denies high cholesterol, denies poor circulation, denies heart failure, other cardiac issues, denies claudication, denies cold feet, denies peripheral arterial stent. Respiratory: The patient denies tuberculosis, denies pneumonia, denies frequent cough, denies pulmonary embolism, denies shortness of breath, and denies coughing up blood. Gastrointestinal: The patient NOTES difficulty swallowing, denies acid reflux, denies ulcers, denies vomiting, denies jaundice/hepatitis, denies gallbladder problems, denies black or tarry stools, denies hemorrhoids, denies bleeding from rectum, denies diverticulitis, denies constipation, denies diarrhea, denies loss of stool control, and denies hernias. Kidney/Bladder: The patient denies kidney stones, denies urine infections, and denies bloody urine. Skin: The patient denies a history of skin cancer, denies bleeding/changing moles, and denies a history of skin rash. Neurologic: The patient denies a history of epilepsy/convulsions, denies headaches, denies head/spinal injuries, and denies stroke/TIA. Psychiatric: The patient denies psychiatric medications, denies depression, and denies voices, denies substance abuse. Endocrine: The patient NOTES thyroid disorders, denies diabetes, and denies hormonal problems. Hematologic: The patient denies a history of bruising, denies bleeding, and denies anemia, denies blood clots. Infections: The patient denies a history of measles and mumps, denies rheumatic fever, and denies sexually transmitted diseases. Musculoskeletal: The patient denies back pain/injury, denies back problems, denies sciatica, denies knee/foot trouble, denies arthritis, or denies gout. ? ? When was patient's last Mammogram screening? None ? Last Colonoscopy: None ? Anika Cunningham LPN ? PHYSICAL EXAMINATION: General: The patient is 42 year old female, well nourished, well hydrated in no acute distress. The patient is oriented to time, place, and person. VITALS: Blood pressure 128/68, pulse 84, temperature 37.2 ?C (98.9 ?F), height 167.6 cm (5' 6), weight 100.6 kg (221 lb 12.8 oz). Body mass index is 35.8 kg/m?. HEENT: Normal cephalic, ataumatic, pupils are equally round, sclera are anicteric, mucous membranes are moist, oropharynx is clear. Neck has no masses, asymmetry or lymphadenopathy. Thyroid is unremarkable. Respiratory: Clear to auscultation and percussion. Normal respiratory excursion and pattern. Cardiac: Examination is regular rate and rhythm. Abdominal exam: Soft, nontender, with no palpable masses. No hepatosplenomegaly. No palpable hernias. Rectal exam: exam deferred Extremities: no clubbing, cyanosis or edema. No adenopathy. Other: LABORATORY VALUES: As Noted RADIOLOGIC STUDIES: As Noted Assessment IMPRESSION: Epigastric pain likely peptic ulcer disease PLAN: I plan to perform upper endoscopy. We discussed the risks and benefits of the planned endoscopy. I have informed the patient that complications can occur including failure to complete the endoscopy and perforation. The patient had the opportunity to ask questions concerning the planned endoscopy. My staff has also explained the procedure to the patient in understandable terms and has given the patient printed material concerning the procedure. The patient freely consents to surgery. I plan for monitored anesthetic care. Diagnoses: (R10.13) Epigastric pain (primary encounter diagnosis) A letter was sent to Dr. Krystina Calle DO indicating the above finding for this patient. Return to Clinic: The patient is instructed to follow-up with me 1 week post operatively. Chau Martinez MD CNOV Observed: 08/15/2017 Status: COMPLETED Source: [place] 1:00 PM [facility] REPOSITORY Office Visit (GENSWS) LIBIA ALBERTO ([id number]) 1975 F Date Time Provider Department 08/15/17 1:00 PM CHAU MARTINEZ During your visit today, we recorded the following information about you: Temperature Pulse Blood pressure Weight 98.9 degrees 84/minute 128/68 100.6 kg Height 1.676 m Chau Martinez MD 08/17/2017 12:03 PM Signed HISTORY AND PHYSICAL Libia Deisy 1975 REFERRING PHYSICIAN: Krystina Calle DO CHIEF COMPLAINT: Consult (Consult Gastritis/ dysphagia) HPI: The patient is a 42 year old female referred for endoscopy. Libia notes no history of colon complaints. The patient notes epigastric pain and difficulty swallowing for at least the last 2 months. She notes a burning more in the epigastrium. She notes the pain gets worse after eating foods. She has a long-standing history of acid reflux and has taken Tums in the past, but notes that her symptoms of worsened again over these last 2 months. The patient start [id number] Prilosec for a few weeks and this caused resolution of her symptoms. When she stopped her medications, the symptoms returned immediately. Libia has not undergone prior endoscopy. The patient is being seen by me today at the request of Dr. Krystina A Malys, DO for my opinion and advice regarding epigastric pain likely peptic ulcer disease. PAST MEDICAL HISTORY Diagnosis Date - Hypothyroid - Obesity - Sleep apnea PAST SURGICAL HISTORY Procedure Laterality Date - SECTION HX - DANDC (MISSED AB 2ND TRIMESTER) 03 - HYSTERECTOMY HX 2013 - LAP CHOLECYSTECT/CHOLANGIOGRAPHY 09/06/09 Normal IOC - LASIK Bilateral 2006 Current Outpatient Prescriptions: Cholecalciferol, Vitamin D3, (VITAMIN D) 1,000 unit cap Take 1,000 Units by mouth once daily. cyanocobalamin (VITAMIN B-12) 1,000 mcg tab Take 1,000 mcg by mouth once daily. Ascorbic Acid (VITAMIN C) 1,000 mg tablet Take 1,000 mg by mouth once daily. calcium carbonate (CALCARB 600 ORAL) Take by mouth. PROGESTERONE MICRONIZED ORAL Take by mouth. levothyroxine (SYNTHROID) 50 mcg tablet Take 75 mcg by mouth daily before breakfast. MULTI-VITAMIN ORAL Take by mouth. No current facility-administered medications for this visit. ALLERGIES: Nubain [Nalbuphine Hcl] PERSONAL HISTORY: Social History Marital status: Spouse name: Years of education: Number of children: Social History Main Topics Smoking status: Never Smoker Alcohol use: Yes Comment: Not often Drug use: No Sexual activity: Yes Partners with: Male control/protection: Tubal Ligation FAMILY HISTORY: FAMILY HISTORY Problem Relation Age of Onset - Hypertension Mother - Heart Mother - Heart Father - Cancer Father thyroid - Lipids Father - Hypertension Father - Stroke Paternal Grandfather REVIEW OF SYMPTOMS: The review of systems data was entered by the nurse and reviewed by me There are no exam notes on file for this visit. REVIEW OF SYSTEMS: General: The patient denies fatigue, denies weight loss, denies weight gain, denies feeling hot, and denies feelings of cold. Eyes: The patient denies glaucoma, denies eye injury/surgery, wears glasses or contacts. Ear/Nose/Throat: The patient denies allergies, denies hayfever, denies ear infections, and denies bloody noses. Cardiovascular: The patient denies chest pain, denies heart disease, denies high blood pressure,denies cardiac stent, denies prior heart attack, denies irregular heart beat, denies high cholesterol, denies poor circulation, denies heart failure, other cardiac issues, denies claudication, denies cold feet, denies peripheral arterial stent. Respiratory: The patient denies tuberculosis, denies pneumonia, denies frequent cough, denies pulmonary embolism, denies shortness of breath, and denies coughing up blood. Gastrointestinal: The patient NOTES difficulty swallowing, denies acid reflux, denies ulcers, denies vomiting, denies jaundice/hepatitis, denies gallbladder problems, denies black or tarry stools, denies hemorrhoids, denies bleeding from rectum, denies diverticulitis, denies constipation, denies diarrhea, denies loss of stool control, and denies hernias. Kidney/Bladder: The patient denies kidney stones, denies urine infections, and denies bloody urine. Skin: The patient denies a history of skin cancer, denies bleeding/changing moles, and denies a history of skin rash. Neurologic: The patient denies a history of epilepsy/convulsions, denies headaches, denies head/spinal injuries, and denies stroke/TIA. Psychiatric: The patient denies psychiatric medications, denies depression, and denies voices, denies substance abuse. Endocrine: The patient NOTES thyroid disorders, denies diabetes, and denies hormonal problems. Hematologic: The patient denies a history of bruising, denies bleeding, and denies anemia, denies blood clots. Infections: The patient denies a history of measles and mumps, denies rheumatic fever, and denies sexually transmitted diseases. Musculoskeletal: The patient denies back pain/injury, denies back problems, denies sciatica, denies knee/foot trouble, denies arthritis, or denies gout. ? ? When was patient's last Mammogram screening? None ? Last Colonoscopy: None ? Anika Cunningham LPN ? PHYSICAL EXAMINATION: General: The patient is 42 year old female, well nourished, well hydrated in no acute distress. The patient is oriented to time, place, and person. VITALS: Blood pressure 128/68, pulse 84, temperature 37.2 ?C (98.9 ?F), height 167.6 cm (5' 6), weight 100.6 kg (221 lb 12.8 oz). Body mass index is 35.8 kg/m?. HEENT: Normal cephalic, ataumatic, pupils are equally round, sclera are anicteric, mucous membranes are moist, oropharynx is clear. Neck has no masses, asymmetry or lymphadenopathy. Thyroid is unremarkable. Respiratory: Clear to auscultation and percussion. Normal respiratory excursion and pattern. Cardiac: Examination is regular rate and rhythm. Abdominal exam: Soft, nontender, with no palpable masses. No hepatosplenomegaly. No palpable hernias. Rectal exam: exam deferred Extremities: no clubbing, cyanosis or edema. No adenopathy. Other: LABORATORY VALUES: As Noted RADIOLOGIC STUDIES: As Noted Assessment IMPRESSION: Epigastric pain likely peptic ulcer disease PLAN: I plan to perform upper endoscopy. We discussed the risks and benefits of the planned endoscopy. I have informed the patient that complications can occur including failure to complete the endoscopy and perforation. The patient had the opportunity to ask questions concerning the planned endoscopy. My staff has also explained the procedure to the patient in understandable terms and has given the patient printed material concerning the procedure. The patient freely consents to surgery. I plan for monitored anesthetic care. Diagnoses: (R10.13) Epigastric pain (primary encounter diagnosis) A letter was sent to Dr. Krystina Calle DO indicating the above finding for this patient. Return to Clinic: The patient is instructed to follow-up with me 1 week post operatively. MD Anika Richardson LPN 08/16/2017 3:29 PM Signed REVIEW OF SYSTEMS: General: The patient denies fatigue, denies weight loss, denies weight gain, denies feeling hot, and denies feelings of cold. Eyes: The patient denies glaucoma, denies eye injury/surgery, wears glasses or contacts. Ear/Nose/Throat: The patient denies allergies, denies hayfever, denies ear infections, and denies bloody noses. Cardiovascular: The patient denies chest pain, denies heart disease, denies high blood pressure,denies cardiac stent, denies prior heart attack, denies irregular heart beat, denies high cholesterol, denies poor circulation, denies heart failure, other cardiac issues, denies claudication, denies cold feet, denies peripheral arterial stent. Respiratory: The patient denies tuberculosis, denies pneumonia, denies frequent cough, denies pulmonary embolism, denies shortness of breath, and denies coughing up blood. Gastrointestinal: The patient NOTES difficulty swallowing, denies acid reflux, denies ulcers, denies vomiting, denies jaundice/hepatitis, denies gallbladder problems, denies black or tarry stools, denies hemorrhoids, denies bleeding from rectum, denies diverticulitis, denies constipation, denies diarrhea, denies loss of stool control, and denies hernias. Kidney/Bladder: The patient denies kidney stones, denies urine infections, and denies bloody urine. Skin: The patient denies a history of skin cancer, denies bleeding/changing moles, and denies a history of skin rash. Neurologic: The patient denies a history of epilepsy/convulsions, denies headaches, denies head/spinal injuries, and denies stroke/TIA. Psychiatric: The patient denies psychiatric medications, denies depression, and denies voices, denies substance abuse. Endocrine: The patient NOTES thyroid disorders, denies diabetes, and denies hormonal problems. Hematologic: The patient denies a history of bruising, denies bleeding, and denies anemia, denies blood clots. Infections: The patient denies a history of measles and mumps, denies rheumatic fever, and denies sexually transmitted diseases. Musculoskeletal: The patient denies back pain/injury, denies back problems, denies sciatica, denies knee/foot trouble, denies arthritis, or denies gout. When was patient's last Mammogram screening? None Last Colonoscopy: None Anika Cunningham LPN Referring Provider: KRYSTINA CALLE [[id number]] Allergies As of Date: 08/15/2017 Noted Allergy Reaction NUBAIN (NALBUPHINE HCL) 05/23/2015 11 - Vomiting Date Reviewed: 08/15/2017 Reviewed by: Teto Mazariegos LPN - Fully Assessed Reason for Visit: Consult [173] Cmt: Consult Gastritis/ dysphagia Reason For Visit History Recorded Primary Visit Diagnosis:Epigastric pain [R10.13] Prescriptions as of 08/15/2017 Sig: CHOLECALCIFEROL (VITAMIN D3) * Take 1,000 Units by mouth onc* CYANOCOBALAMIN (VIT B-12) 1,0* Take 1,000 mcg by mouth once * ASCORBIC ACID (VITAMIN C) 1,0* Take 1,000 mg by mouth once d* CALCARB 600 ORAL Take by mouth. PROGESTERONE MICRONIZED ORAL Take by mouth. LEVOTHYROXINE 50 MCG TABLET Take 75 mcg by mouth daily be* MULTI-VITAMIN ORAL Take by mouth. Problem List As Of Date 08/15/2017 Noted Resolved Other Specified Disorder of Gallbladder [K82.8] INVALID FOR* Sebaceous cyst [L72.3] INVALID FOR* Melanocytic nevi of scalp and neck [D22.4] INVALID FOR* Intradermal nevus [D23.9] INVALID FOR* Visit Notes: >> Anika Cunningham WILIAN SatAugust 16, 2017 3:28 PM Status: Signed REVIEW OF SYSTEMS: General: The patient denies fatigue, denies weight loss, denies weight gain, denies feeling hot, and denies feelings of cold. Eyes: The patient denies glaucoma, denies eye injury/surgery, wears glasses or contacts. Ear/Nose/Throat: The patient denies allergies, denies hayfever, denies ear infections, and denies bloody noses. Cardiovascular: The patient denies chest pain, denies heart disease, denies high blood pressure,denies cardiac stent, denies prior heart attack, denies irregular heart beat, denies high cholesterol, denies poor circulation, denies heart failure, other cardiac issues, denies claudication, denies cold feet, denies peripheral arterial stent. Respiratory: The patient denies tuberculosis, denies pneumonia, denies frequent cough, denies pulmonary embolism, denies shortness of breath, and denies coughing up blood. Gastrointestinal: The patient NOTES difficulty swallowing, denies acid reflux, denies ulcers, denies vomiting, denies jaundice/hepatitis, denies gallbladder problems, denies black or tarry stools, denies hemorrhoids, denies bleeding from rectum, denies diverticulitis, denies constipation, denies diarrhea, denies loss of stool control, and denies hernias. Kidney/Bladder: The patient denies kidney stones, denies urine infections, and denies bloody urine. Skin: The patient denies a history of skin cancer, denies bleeding/changing moles, and denies a history of skin rash. Neurologic: The patient denies a history of epilepsy/convulsions, denies headaches, denies head/spinal injuries, and denies stroke/TIA. Psychiatric: The patient denies psychiatric medications, denies depression, and denies voices, denies substance abuse. Endocrine: The patient NOTES thyroid disorders, denies diabetes, and denies hormonal problems. Hematologic: The patient denies a history of bruising, denies bleeding, and denies anemia, denies blood clots. Infections: The patient denies a history of measles and mumps, denies rheumatic fever, and denies sexually transmitted diseases. Musculoskeletal: The patient denies back pain/injury, denies back problems, denies sciatica, denies knee/foot trouble, denies arthritis, or denies gout. When was patient's last Mammogram screening? None Last Colonoscopy: None Anika Cunningham LPN Letter Text Encounter Status:Closed by CHAU MARTINEZ MD on 08/17/17 COMPREHENSIVE METABOLIC Collected: 08/13/2017 Status: F Source: AVELINO LORY 10:15 AM [facility] REPOSITORY TYPE CODE TESTS RESULT OUT OF RANGE REFERENCE UNITS LAB L501.0100 74-106 mg/dL Normal GLU 86 Result Comment: Please note revised GLUCOSE reference range effective 2017. LAB L501.1000 7-18 mg/dL Normal BUN 13 LAB L501.1100 0.55-1.02 mg/dL Normal CREAT,SERUM 0.66 Result Comment: The validity of the calculated GFR AND GFRAA in patients over 70 years has not been determined. Clinical correlation is essential. LAB L501.1110 >60 mL/min Normal EST GFR 105 Result Comment: Non- GFR Calc LAB L501.1115 >60 mL/min Normal EST GFR - AA 127 Result Comment: GFR Calc LAB L501.1300 10-20 RATIO Normal BUN/CRE 19.7 LAB L501.1500 6.4-8.2 g/dL T Normal PROT 7.3 LAB L501.1800 3.2-5.0 g/dL Normal ALB 4.0 LAB L501.1950 2.2-4.2 g/dL Normal GLOB 3.3 LAB L501.2000 0.9-2.4 RATIO Normal A/G 1.2 LAB L501.2200 8.5-10.1 mg/dL CA Normal 8.8 LAB L501.4100 15-37 U/L Normal AST 20 LAB L501.4305 45-117 U/L Normal ALK P 64 LAB L501.4405 13-56 U/L Normal ALT 44 LAB L501.4600 0.20-1.00 mg/dL T Normal BILI 0.40 LAB L501.5300 136-145 mmol/L NA Normal 140 LAB L501.5600 3.5-5.1 mmol/L K Normal 3.9 LAB L501.5900 98-107 mmol/L CL Normal 107 LAB L501.6100 21.0-32.0 mmol/L Normal CO2 26.0 LAB L501.6200 5-15 Normal GAP 7 Performed By: #### L500.4050, L501.9520 #### [facility] [address] [facility]. [place], [place], [address] THYROID STIM HORMONE Collected: 08/13/2017 Status: F Source: AVELINO (TSH) 10:15 AM [facility] REPOSITORY TYPE CODE TESTS RESULT OUT OF RANGE REFERENCE UNITS LAB L501.9520 0.358-3.74 uIU/mL Normal TSH 0.99 Performed By: #### L500.4050, L501.9520 #### [facility] [address] [facility] [place], [address] COMPREHENSIVE METABOLIC Collected: 05/08/2017 Status: F Source: AVELINO PROFIL 6:41 AM [facility] REPOSITORY TYPE CODE TESTS RESULT OUT OF RANGE REFERENCE UNITS LAB L501.0100 74-106 mg/dL High GLU 116 Result Comment: Fasting Glucose result from 100 to 125 mg/dL suggests IMPAIRED HOMEOSTASIS per A.D.A. criteria. Please note revised GLUCOSE reference range effective 2017. LAB L501.1000 7-18 mg/dL Normal BUN 11 LAB L501.1100 0.55-1.02 mg/dL Normal CREAT,SERUM 0.72 Result Comment: The validity of the calculated GFR AND GFRAA in patients over 70 years has not been determined. Clinical correlation is essential. LAB L501.1110 >60 mL/min Normal EST GFR 95 Result Comment: Non- GFR Calc LAB L501.1115 >60 mL/min Normal EST GFR - AA 115 Result Comment: GFR Calc LAB L501.1300 10-20 RATIO Normal BUN/CRE 15.3 LAB L501.1500 6.4-8.2 g/dL T Normal PROT 7.0 LAB L501.1800 3.2-5.0 g/dL Normal ALB 3.6 LAB L501.1950 2.2-4.2 g/dL Normal GLOB 3.4 LAB L501.2000 0.9-2.4 RATIO Normal A/G 1.1 LAB L501.2200 8.5-10.1 mg/dL CA Normal 8.6 LAB L501.4100 15-37 U/L Low AST 11 LAB L501.4305 45-117 U/L Normal ALK P 66 LAB L501.4405 13-56 U/L Normal ALT 33 Result Comment: Please note revised ALT reference range effective 2017. LAB L501.4600 0.20-1.00 mg/dL Normal T BILI 0.50 LAB L501.5300 136-145 mmol/L Normal NA 140 LAB L501.5600 3.5-5.1 mmol/L Normal K 3.6 LAB L501.5900 98-107 mmol/L Normal CL 106 LAB L501.6100 21.0-32.0 mmol/L Normal CO2 28.0 LAB L501.6200 5-15 Normal GAP 6 Performed By: #### L500.4050, L501.9520 #### [facility] [address] [facility]. [place], [place], [id number] THYROID STIM HORMONE Collected: 05/08/2017 Status: F Source: AVELINO (TSH) 6:41 AM [facility] REPOSITORY TYPE CODE TESTS RESULT OUT OF RANGE REFERENCE UNITS LAB L501.9520 0.358-3.74 uIU/mL Normal TSH 1.88 Performed By: #### L500.4050, L501.9520 #### [facility] [address] [facility] [place], [address] VITAMIN D,25 HYDROXY Collected: 05/08/2017 Status: F Source: AVELINO 6:41 AM [facility] REPOSITORY TYPE CODE TESTS RESULT OUT OF RANGE REFERENCE UNITS LAB L506.1000 19.95-100.01 ng/mL Normal Vitamin D 27.4 25-OH Result Comment: Vitamin D 25(OH) Status Range Deficiency <20 ng/mL (50nmol/L) Insuffciency 20 - 30 ng/mL (50 - 75 nmol/L) Sufficiency 30 - 100 ng/mL (75 - 250 nmol/L) Toxicity >100 ng/mL (>250 nmol/L) Performed By: #### L506.1000 #### [facility] [address] [place], [address] ALLERGIES ALLERGIES DATE TYPE / CODE NAME / CODE REACTION SEVERITY SOURCE 03/26/2018 Drug nalbuphine Vomiting Unknown Avelino Allergy/416 HCl/[id number](RX Community [id number]([facility] ED CT) Repository 05/23/2015 DRUG NALBUPHINE HCL Vomiting [facility] INGREDI/[address] [place] [id number](SN Repository ED CT) ENCOUNTERS ENCOUNTERS ADMIT/DISCHARGE ACCOUNT ADMITTING ENCOUNTER LOCATION SOURCE NUMBER CLASS 04/10/2018 [id number] [facility] ing:OPBI Repository 03/26/2018/03/26/19 [id number] Emergency [address] ing:ED Repository 01/29/2018 [id number] Ambulatory [facility] ing:LABSPEC Repository 11/26/2017 [id number] [facility] ing:EMPH Repository 08/20/2017/08/21/[id number] ing:ENRoom: Repository AC12 08/20/2017 [id number] [facility] ing:EN Repository 08/15/2017/08/21/19 [id number] Ambulatory [address] Repository 08/13/2017 [id number] [facility] ing:LAB Repository 05/08/2017 [id number] [facility] ing:LAB Repository PAYERS PAYERS ENCOUNTER GUARANTOR PAYER SUBSCRIBER SOURCE 04/10/2018 LIBIA Sharp Primary Insurance:[facility] LIBIA Sharp [address] [facility] B: [id number] Number: Repository [id number]: [phone] [id number] [phone] () Date:8430-59-96QN [address] [address], [place] [address]MF: CHECK WEBSITE 04/10/2018 Secondary NOT GIVENUNK Avelino Insurance:SELF PAY [facility] Number: Effective Repository Date:2018-01-31 03/26/2018 PEPPER A Primary Insurance:[facility] LIBIA Lawrenceoster [id number] [address] SERVICESPolicy B: [id number] Number: Repository [id number]: 419 [id number] [phone] () Date:7348-45-12LM [address] [address]QFRQE[place]X, [place] [address]UB: CHECK WEBSITE 03/26/2018 Secondary NOT GIVENUNK Avelino Insurance:SELF PAY [facility] Number: Effective Repository Date:2018-03-26 01/29/2018 PEPPER A Primary Insurance:[facility] LIBIA Sharp Wall [id number] [address] SERVICESPolicy B: [id number], [place] Number: Repository [id number]: 419 [id number] [phone] () Date:6063-71-78GT [address] [address], [place] [address]BX: CHECK WEBSITE 01/29/2018 Secondary NOT GIVENUNK Avelino Insurance:SELF PAY [facility] Number: Effective Repository Date:2018-01-29 11/26/2017 PEPPER A Primary NOT GIVENUNK Wall [id number] Insurance:SELF PAY [address] Number: Effective Repository [id number]: (419) Date:2017-11-26 [phone] () 08/20/2017 PEPPER A Primary Insurance:[facility] LIBIA Lawrenceoster [id number] [address] SERVICESPoly B: [id number] Number: Repository [address]Rfi: 419 [id number] [phone] () Date:2676-99-20HJ [address] [address], [place] [address]DZ: CHECK WEBSITE 08/20/2017 Secondary NOT GIVENUNK Avelino Insurance:SELF PAY [facility] Number: Effective Repository Date:2017-08-16 08/20/2017 PEPPER A Primary Insurance:[facility] LIBIA T[address]UBER[address] [place] [address] [address] SERVICESPolicy B: [id number] Number: Repository [address]Ygt: 419 [id number] [phone] () Date:6446-31-84JL [address] [address], [place] [address]UT: CHECK WEBSITE 08/20/2017 Secondary NOT GIVENUNK Avelino Insurance:SELF PAY [facility]ending [facility] Number: Effective Repository Date:2017-08-16 08/13/2017 Pepper Primary Insurance:[facility] Libia Alberto[address] SERVICESPolicy B: [id number] Number: Repository [address]Day: 419 [id number] [phone] () Date:7794-12-12NF [address] [address], [place] [address]PO: CHECK WEBSITE 08/13/2017 Secondary NOT GIVENUNK Wall Insurance:SELF PAY [facility] Number: Effective Repository Date:2017-08-13 05/08/2017 Pepper Primary Insurance:[facility] Libia [address]er[address] [place] [address] [address] SERVICESPolicy B: [id number] Number: Repository [address]Bwh: 419 [id number] [phone] () Date:9257-89-40PQ [address] [address], [place] [address]EF: CHECK WEBSITE 05/08/2017 Secondary NOT GIVENUNK Avelino Insurance:SELF PAY [facility] Number: Effective Repository Date:2017-05-08
== END ==
PROVIDERS: Family Provider Family Medicine; PCP Family Medicine; Referring Provider Obstetrics & Gynecology; Visit Provider Obstetrics & Gynecology
DX: Z12.31 Encounter for screening mammogram for malignant neoplasm of breast (principal)
CPT/HCPCS: 77063; 77067

== ENCOUNTER → 2018-05-06 17:35 | Outpatient (CLI) | payer OTHER, SELFPAY ==
--- NOTE | 2018-05-06 18:15 | MRI_ITS ---
STUDY: MRI LEFT KNEE REASON FOR EXAM: Female, 43 years old. Pain and swelling. TECHNIQUE: Standardized fat and water weighted pulse sequences were obtained in all 3 orthogonal planes. COMPARISON: x-ray March 26, 2018. FINDINGS: Normal medial meniscus. There is diffuse, less than 50% thickness articular cartilage loss of the medial femorotibial compartment. Normal medial femoral condyle and tibial plateau. There is a partial sprain of the MCL with interstitial and periligamentous edema. Normal distal semimembranosus, gracilis and semitendinosus tendons. Normal lateral meniscus. Normal hyaline cartilage of the lateral femorotibial compartment. Normal lateral femoral condyle and tibial plateau. Normal proximal tibiofibular articulation. Normal lateral collateral (fibular) ligament. Normal popliteus tendon. Normal biceps femoris tendon. Normal anterior cruciate ligament (ACL). Normal posterior cruciate ligament (PCL). Normal congruent patellofemoral articulation. There is focal, greater than 50% thickness articular cartilage loss of the patellofemoral compartment, series 3 image 13/30. Normal medial and lateral patellar retinaculum. Normal quadriceps tendon. Normal patellar tendon. Normal Hoffa's fat pad. There is a small volume joint effusion. There is a Casper's cyst. The soft tissues are unremarkable. The otherwise visualized osseous structures are unremarkable. MRI/Lower Ext Joint Only (Routine) IMPRESSION: No meniscal tear. Focal cartilaginous irregularity of the posterior patella. Medial collateral ligament sprain. Joint effusion with popliteal cyst. Electronically Signed: Evan Thompson MD at 22:04 EST , Service support ,
== END ==
PROVIDERS: Family Provider Family Medicine; PCP Family Medicine; Referring Provider Physician Assistant; Visit Provider Physician Assistant
DX: M25.562 Pain in left knee (principal)
CPT/HCPCS: 73721

== ENCOUNTER → 2018-05-22 12:33 | Outpatient (CLI) | payer OTHER, SELFPAY ==
[2018-05-22 16:09] LABS: Progesterone Level 3.93 ng/mL (See Comment); T3 Total - Triiodothyronine 1.02 ng/mL (0.6-1.81); Vitamin B12 1157 pg/mL (211-911)
[2018-05-22 22:48] LABS: ALB/GLOB Ratio 1.1 RATIO (0.9-2.4); Albumin, Serum 3.6 g/dL (3.2-5.0); BUN 10 mg/dL (7-18); BUN/Creat Ratio 14.9 RATIO (10-20); Globulin 3.3 g/dL (2.2-4.2)
[2018-05-22 22:49] LABS: Anion Gap 10 (5-15); Chloride 108 mmol/L (98-107); Potassium 4.1 mmol/L (3.5-5.1); Sodium Level 142 mmol/L (136-145); T4 Free Direct 0.92 ng/dL (0.76-1.46)
[2018-05-22 23:08] LABS: AST(SGOT) 23 U/L (15-37); Alanine Aminotransfer ALT/SGPT 55 U/L (13-56); Alkaline Phosphatase 72 U/L (45-117); Calcium,Total 8.3 mg/dL (8.5-10.1); Creatinine, Serum 0.64 mg/dL (0.55-1.02); EST Glomerular Filtration Rate 109 mL/min (>60); Est Glom Filt Rate - Afr Amer 132 mL/min (>60); Free T3 2.3 pg/mL (2.18-3.98); Glucose 72 mg/dL (74-106); Protein, Total 6.8 g/dL (6.4-8.2); Thyroid Stim Hormone (TSH) 1.07 uIU/mL (0.358-3.74)
== END ==
PROVIDERS: Family Provider Family Medicine; PCP Family Medicine; Visit Provider Family Medicine
DX: E03.9 Hypothyroidism, unspecified (principal); E55.9 Vitamin D deficiency, unspecified; R53.83 Other fatigue; E34.8 Other specified endocrine disorders; Z51.81 Encounter for therapeutic drug level monitoring
CPT/HCPCS: 36415; 80053; 82306; 82607; 82670; 84144; 84439; 84443; 84480; 84481

== ENCOUNTER → 2018-06-13 09:51 | Outpatient (CLI) | payer OTHER, SELFPAY ==
--- NOTE | 2018-06-13 09:52 | US_ITS ---
HISTORY: NODULES TECHNIQUE: Oquendo scale and color doppler imaging was performed of the thyroid gland. COMPARISON: 11/14/15 thyroid ultrasound. FINDINGS: RIGHT THYROID LOBE: 4.4 x 1.1 x 1.9 cm. Homogeneous echotexture with normal vascularity. No thyroid nodules are present. LEFT THYROID LOBE: 3.5 x 1.3 x 1.2 cm. Homogeneous echotexture with normal vascularity. No thyroid nodules are present. ISTHMUS: 0.2 cm thick. No thyroid nodules are present. The subcentimeter nodule in the right lobe seen on the previous study is not evident today. US/Thyroid IMPRESSION: Normal thyroid ultrasound examination. at 0452 Reported and signed by: Darion Delgado MD Electronically Signed: Darion Delgado, at 4:51 EDT Tel , Service support ,
== END ==
PROVIDERS: Family Provider Family Medicine; PCP Family Medicine; Referring Provider Family Medicine; Visit Provider Family Medicine
DX: E04.2 Nontoxic multinodular goiter (principal)
CPT/HCPCS: 76536

== ENCOUNTER → 2018-06-26 06:29 | Outpatient (CLI) | payer OTHER, SELFPAY ==
[2018-06-26 08:31] LABS: Magnesium 2.3 mg/dL (1.6-2.6)
[2018-06-26 11:10] LABS: PTHIN 36.3 pg/mL (18.4-80.1)
== END ==
PROVIDERS: Family Provider Family Medicine; PCP Family Medicine; Referring Provider Family Medicine; Visit Provider Family Medicine
DX: E83.51 Hypocalcemia (principal); R53.83 Other fatigue; E03.9 Hypothyroidism, unspecified; M62.838 Other muscle spasm; E27.40 Unspecified adrenocortical insufficiency
CPT/HCPCS: 36415; 82330; 82533; 83735; 83970

== ENCOUNTER 2019-01-13 07:05 | Emergency (ER) | payer OTHER, SELFPAY ==
[2019-01-13 07:06] VITALS: BP 150/72; PULSE 83; RESP 16; TEMP 36.5; O2SAT 98; BMI 39.9
[2019-01-13 07:24] LABS: Bacteria 0 SEEN /hpf (None Seen); Mucous, Urine 0 SEEN /hpf (<or=2+); Red Blood Cells-Urine 0 SEEN /hpf (0-5); White Blood Cells 0 SEEN /hpf (0-5)
[2019-01-13 07:27] LABS: Color, Urine Yellow (Yellow); Glucose, Dipstick Normal (Normal); Ketone-Dipstick Negative (Negative); Leukocyte Esterase-Dipstick Negative /ul (Negative); Nitrite-Dipstick Negative (Negative); Occult Blood-Urine 10 /ul (Negative); Protein-Dipstick Negative (Negative); Urine Bilirubin Dipstick Negative (Negative); Urine Clarity Clear (Clear); Urine Urobilinogen Normal (Normal)
[2019-01-13] MEDS: Ondansetron ODT 4 MG Tablet PO (07:30)
[2019-01-13 07:35] LABS: Squamous Epithelial Cells - UA 0-5 SEEN /hpf (5-10)
--- NOTE | 2019-01-13 07:40 | CT_ITS ---
STUDY: CT ABDOMEN AND PELVIS WITHOUT CONTRAST REASON FOR EXAM: Female, 43 years old. Abdominal pain RADIATION DOSAGE (If Supplied By Facility): CTDIvol = ( 20.39 ) mGy, DLP = ( 1059.59 ) mGycm TECHNIQUE: Transaxial images were obtained from the dome of the diaphragm to the symphysis pubis without oral contrast, and without intravenous contrast. Sagittal and coronal images were reconstructed. Individualized dose optimization techniques were used for this CT. COMPARISON: 09/02/2009 FINDINGS: The visualized lung bases are unremarkable. The visualized portions of the heart are within normal limits. There is decreased attenuation of the liver consistent with steatosis. There is non-visualization of the gallbladder, which may be secondary to either contraction or a prior cholecystectomy. Normal spleen. Normal pancreas. Normal bilateral adrenal glands. Normal right kidney. Normal left kidney. Normal visualized stomach. Normal small intestine. Normal colon. The appendix is visualized and appears normal. Normal abdominal aorta. Normal inferior vena cava. Normal retroperitoneum. Normal urinary bladder. Normal abdominal wall. Normal osseous structures. CT/Abdomen/Pelvis without Cont IMPRESSION: No acute abnormality. Fatty infiltration of the liver. Electronically Signed: Chau Martinez MD at 8:42 EDT Tel , Service support ,
[2019-01-13 08:00] LABS: Absolute Lymphocyte Count 1.62 X10^3/uL (0.83-4.51); Absolute Neutrophil Count 6.1 X10^3/uL (2.0-7.7); Basophil# 0.07 X10^3/uL; Basophil% 0.8 % (0-1); Eosinophil# 0.23 X10^3/uL; Eosinophils% 2.7 % (0-5); Hematocrit 40.1 % (37-47); Hemoglobin 13.2 g/dL (12.0-15.0); Lymphocyte # 1.62 X10^3/ul (4.0); Mean Corp Hgb Conc 32.9 g/dL (32-36); Mean Corpuscular Hgb 27.1 pg (27.0-32.0); Mean Corpuscular Volume 82.3 fL (81-99); Mean Platelet Vol. 9.7 fl (6.2-12.0); Monocyte# 0.51 X10^3/uL; NRBC Flagged by Analyzer 0 % (0-5); Neutrophil # 6.06 X10^3/uL (2.7-7.7); Platelet Count 317 K/mm3 (150-450); RBC Distribution Width CV 12.8 % (11.6-14.6); RBC Distribution Width SD 38.2 fl (35.1-43.9); Red Blood Count 4.87 M/mm3 (4.2-5.4); White Blood Count 8.5 K/mm3 (4.4-11.0)
[2019-01-13 08:15] LABS: ALB/GLOB Ratio 1.1 RATIO (0.9-2.4); AST(SGOT) 18 U/L (15-37); Alanine Aminotransfer ALT/SGPT 51 U/L (13-56); Albumin, Serum 3.7 g/dL (3.2-5.0); Alkaline Phosphatase 75 U/L (45-117); Anion Gap 5 (5-15); BUN 9 mg/dL (7-18); BUN/Creat Ratio 12.9 RATIO (10-20); Calcium,Total 9.4 mg/dL (8.5-10.1); Chloride 107 mmol/L (98-107); EST Glomerular Filtration Rate 98 mL/min (>60); Est Glom Filt Rate - Afr Amer 119 mL/min (>60); Estimated Creatinine Clearance 95.17 ml/min; Globulin 3.3 g/dL (2.2-4.2); Glucose 134 mg/dL (74-106); Lipase 74 U/L (73-393); Potassium 3.8 mmol/L (3.5-5.1); Sodium Level 139 mmol/L (136-145)
[2019-01-13 08:23] LABS: Lactic Acid 1.7 mmol/L (0.4-2.0)
[2019-01-13] MEDS: Ketorolac 30 MG/ML Syringe IV (08:34)
[2019-01-13] MEDS: 0.9% Normal Saline 1,000 ML 125 ML IV (08:34)
--- NOTE | 2019-01-13 08:53 | ED.DCSUM_ITS ---
- ER Visit Summary Date of Service: 01/13/19 Chief Complaint: [Back pain, abdominal pain, nausea] History of Present Illness: The patient is a 43 F [presents to the ER with 3 to 4-day history of lower back discomfort that is bilateral. Patient also complains of some lower abdominal discomfort. Patient had nausea. Patient had a headache yesterday that mostly resolved today. She denies any fever. She denies urinary symptoms other than she thinks there is a strong odor to the urine. Patient denies sick contacts. Denies any trauma to her back. She denies any pain rating down her legs. She denies weakness in extremities. She denies any paresthesias.] Physical Examination: [HEENT-PERRLA, EOMI. Cranial nerves II through XII grossly intact. TMs clear. Mucous membranes moist. No adenopathy. Cardiovascular-regular rate and rhythm without murmur or ectopy Lungs-clear to auscultation, chest wall stable without crepitus or subcu emphysema Abdomen-normoactive bowel sounds, soft. Patient has some mild diffuse tenderness to the lower abdomen. No rebound, rigidity, or perineal signs. Back exam-patient has bilateral CVA tenderness. Patient has tenderness over the paraspinal musculature bilaterally in the lumbar spine. No bony tenderness on exam. Negative straight leg raises. Extremities-intact ?4, normal range of motion, normal pulses, atraumatic] Test Results: [Urinalysis obtained was normal. CBC with differential obtained was normal. Chemistries normal. LFTs normal. Lipase was 74. CT flank showed nothing acute.] Emergency Department Course and Treatment: [Patient was given Toradol 30 mill grams IV as well as Zofran 4 mg.] Treatment Plan: [Will be given a prescription for naproxen as well as Flexeril. Patient given a prescription for Zofran.] Disposition: [Discharged home in stable condition.] Impression: [Back pain-suspect lumbar strain] This note was generated with [employer] dictation software. It may contain incorrect words, spelling, and punctuation that were not noted in review of the chart prior to signing ED Disposition - Plan for ED Patient: Referrals: Krystina Calle DO [Primary Care Provider] -
--- NOTE | 2019-01-13 08:56 | ED.DEP ---
ED Disposition - Plan for ED Patient: Instructions: FLANK PAIN, Uncertain Cause, BACK AND NECK PAIN, General, ABDOMINAL PAIN, Unknown Cause, (Female) Prescriptions: cycloBENZAPRine HCl [Flexeril] 10 mg PO TID PRN #20 tab PRN Reason: Muscle Spasm Prescription Printed Naproxen [Naprosyn] 500 mg PO BID PRN #20 tab Prescription Printed Ondansetron [Zofran Odt] 4 mg PO Q8H PRN PRN #10 tab PRN Reason: Nausea Prescription Printed Referrals: Krystina Calle DO [Primary Care Provider] - 5-7 Days
[2019-01-13 08:59] VITALS: BP 136/71; PULSE 82; RESP 16; O2SAT 98
== END 2019-01-13 09:01 | disposition home or self-care (01) ==
LOC: ED 07:25
PROVIDERS: Emergency Provider Emergency Medicine; Family Provider Family Medicine; PCP Family Medicine
DX: M54.5 Low back pain (principal); R10.30 Lower abdominal pain, unspecified; R11.0 Nausea; R51 Headache; E03.9 Hypothyroidism, unspecified; Z90.49 Acquired absence of other specified parts of digestive tract; Z79.899 Other long term (current) drug therapy
CPT/HCPCS: 74176; 80053; 81001; 83605; 83690; 85025; 96374; 99284; J7030; A4216

== ENCOUNTER → 2019-03-06 06:35 | Outpatient (CLI) | payer OTHER, SELFPAY ==
--- NOTE | 2019-03-06 06:42 | RAD_ITS ---
STUDY: X-RAY - CERVICAL SPINE REASON FOR EXAM: Female, 44 years old. Radiculopathy. TECHNIQUE: 7 view(s) of the cervical spine were obtained. COMPARISON: None FINDINGS: There are mild degenerative changes of the anterior atlantoaxial articulation. Normal odontoid process. There is 1.7 mm anterior subluxation of C4 in relation to C5. There is straightening of the normal cervical lordosis. Normal vertebral bodies and endplates. Normal disc space heights. Normal visualized intervertebral neuroforamina. The soft tissue structures are unremarkable. There is no demonstrated fracture of the cervical spine. RAD/Cerv Spine 4 or 5 Views IMPRESSION: Minimal anterolisthesis of C4 on C5 described above. If indicated, stability can be assessed with flexion extension views. Otherwise cervical spine unremarkable. Electronically Signed: Candis Mckay MD at 2:28 EST , Service support ,
== END ==
PROVIDERS: Family Provider Family Medicine; PCP Family Medicine
DX: M99.01 Segmental and somatic dysfunction of cervical region (principal); M54.12 Radiculopathy, cervical region
CPT/HCPCS: 72050

== ENCOUNTER 2019-05-08 11:25 | Emergency (ER) | payer OTHER, SELFPAY ==
[2019-03-26 13:42] VITALS: BMI 39.9
[2019-05-08 11:26] VITALS: BP 138/68; PULSE 108; RESP 20; TEMP 37.4; O2SAT 97; BMI 37.6
--- NOTE | 2019-05-08 11:38 | RAD_ITS ---
STUDY: X-RAY CHEST REASON FOR EXAM: Female, 44 years old. COUGH X 6 WEEKS, INTERMITTENT FEVER TECHNIQUE: PA and lateral views of the chest. COMPARISON: None. FINDINGS: The lungs are clear and expanded. Scattered calcified granulomas. There is no demonstrated pleural abnormality. Normal size heart. Normal mediastinum and staci. Normal visualized pulmonary arteries. Normal visualized aortic arch and descending thoracic aorta. Normal visualized thoracic spine. Normal visualized ribs, clavicles, and shoulders. There is no demonstrated abnormality of the visualized soft tissue structures of the upper abdomen. RAD/Chest PA and Lateral IMPRESSION: Normal x-ray examination of the chest. Electronically Signed: Gregg Flores, at 12:44 EST , Service support ,
--- NOTE | 2019-05-08 11:39 | ED.DCSUM_ITS ---
- ER Visit Summary Date of Service: 05/08/19 Chief Complaint: Fever, cough, headache History of Present Illness: The patient is a 44 F who presents with fever, cough, and headache that began yesterday. Patient states her fever was 101 at home. Patient states she took Tylenol approximately 2 hours prior to arrival. Patient admits to a sore throat and rhinorrhea. Patient admits to a cough with some green and white sputum. Patient admits to occasional shortness of breath. Patient also admits to occasional nausea but denies any vomiting. Patient denies any chest pain or palpitations. Patient does admit to general myalgias and back pain. Physical Examination: Vital signs are stable. Patient is afebrile. Patient is in no acute distress. Pupils are equal, round, and reactive to light bilaterally. Extraocular muscles are intact. Tympanic membranes are clear bilaterally. Oral mucosa is pink and moist. Neck is supple. Trachea is midline. There is no JVD or lymphadenopathy. Heart was regular rate and rhythm. Lungs are clear and equal bilaterally. Abdomen is soft. Bowel sounds are normal. There is no tenderness. Cranial nerves II through XII are intact. There are no focal motor or sensory deficits noted. Extremities are intact. There is no calf tenderness or edema. Test Results: CBC and comprehensive metabolic profile were within normal limits. PA and lateral chest x-ray does not show any acute cardiopulmonary process. This was interpreted by the radiologist and reviewed by myself. Rapid strep was negative. Influenza swab was positive for influenza A. Emergency Department Course and Treatment: Patient was given IV fluids. Patient was given her first dose of Tamiflu here. Patient was given a prescription for Tamiflu. Patient was instructed to follow-up with her primary care physician in 5 to 7 days. Patient was instructed to drink plenty of fluids. Patient was instructed to take Tylenol or ibuprofen as needed for any aches or fevers. Patient understood and was agreeable with the plan. All questions were answered. Disposition: Discharge home Impression: Influenza A This note was generated with [employer] dictation software. It may contain incorrect words, spelling, and punctuation that were not noted in review of the chart prior to signing ED Disposition - Plan for ED Patient: Disposition: Home or Assisted Living Diagnosis: Influenza A Instructions: INFLUENZA (Adult) Prescriptions: Oseltamivir Phosphate [Tamiflu] 75 mg PO BID #9 cap Transmission Status: Pending to [facility] Referrals: Krystina Calle DO [Primary Care Provider] - 5-7 Days
[2019-05-08 11:47] LABS: Absolute Neutrophil Count 5.1 X10^3/uL (2.0-7.7); Basophil# 0.03 X10^3/uL; Basophil% 0.5 % (0-1); Eosinophil# 0.05 X10^3/uL; Eosinophils% 0.8 % (0-5); Hematocrit 37.4 % (37-47); Hemoglobin 12.3 g/dL (12.0-15.0); Mean Corp Hgb Conc 32.9 g/dL (32-36); Mean Corpuscular Hgb 27.5 pg (27.0-32.0); Mean Corpuscular Volume 83.5 fL (81-99); Mean Platelet Vol. 9.8 fl (6.2-12.0); Monocyte# 0.55 X10^3/uL; Monocyte% 8.8 % (0-10); NRBC Flagged by Analyzer 0 % (0-5); Neutrophil # 5.12 X10^3/uL (2.7-7.7); Neutrophil % 81.7 % (47-70); POSITIVE DIFFERENTIAL YES; Platelet Count 227 K/mm3 (150-450); RBC Distribution Width CV 13.4 % (11.6-14.6); RBC Distribution Width SD 40.8 fl (35.1-43.9); Red Blood Count 4.48 M/mm3 (4.2-5.4); White Blood Count 6.3 K/mm3 (4.4-11.0)
[2019-05-08] MEDS: 0.9% Normal Saline 1,000 ML 1000 ML IV (11:57)
[2019-05-08 11:58] LABS: Differential Indicated SCAN CRITERIA MET
[2019-05-08 12:00] VITALS: BP 138/68; PULSE 108; RESP 20; TEMP 37.4; O2SAT 97
[2019-05-08 12:01] LABS: ALB/GLOB Ratio 1.1 RATIO (0.9-2.4); AST(SGOT) 12 U/L (15-37); Alanine Aminotransfer ALT/SGPT 35 U/L (13-56); Albumin, Serum 3.6 g/dL (3.2-5.0); Alkaline Phosphatase 72 U/L (45-117); Anion Gap 8 (5-15); BUN 11 mg/dL (7-18); BUN/Creat Ratio 14.7 RATIO (10-20); Calcium,Total 8.6 mg/dL (8.5-10.1); Chloride 111 mmol/L (98-107); Creatinine, Serum 0.75 mg/dL (0.55-1.02); EST Glomerular Filtration Rate 90 mL/min (>60); Est Glom Filt Rate - Afr Amer 109 mL/min (>60); Estimated Creatinine Clearance 87.93 ml/min; Globulin 3.4 g/dL (2.2-4.2); Glucose 122 mg/dL (74-106); Potassium 3.5 mmol/L (3.5-5.1); Sodium Level 141 mmol/L (136-145)
[2019-05-08] MEDS: Oseltamivir Phosphate 75 MG Capsule PO (13:02)
[2019-05-08 13:29] VITALS: TEMP 36.7
== END 2019-05-08 13:30 | disposition home or self-care (01) ==
PROVIDERS: Emergency Provider Emergency Medicine; PCP Family Medicine
DX: J10.1 Influenza due to other identified influenza virus with other respiratory manifestations (principal); E66.9 Obesity, unspecified; E03.9 Hypothyroidism, unspecified; Z79.899 Other long term (current) drug therapy
CPT/HCPCS: 71046; 80053; 85025; 87804; 87880; 96360; 99283; J7030; A4216

== ENCOUNTER → 2019-12-10 11:54 | Outpatient (CLI) | payer OTHER, SELFPAY ==
[2019-12-10 16:40] LABS: Free T3 2.5 pg/mL (2.18-3.98); T4 Free Direct 0.97 ng/dL (0.76-1.46)
== END ==
PROVIDERS: PCP Family Medicine; Visit Provider Family Medicine
DX: Z00.00 Encounter for general adult medical examination without abnormal findings (principal); E03.9 Hypothyroidism, unspecified
CPT/HCPCS: 84439; 84443; 84481

== ENCOUNTER → 2020-01-18 06:59 | Outpatient (CLI) | payer OTHER, SELFPAY ==
[2019-12-24 11:36] VITALS: BMI 37.6
--- NOTE | 2020-01-18 07:01 | BI_ITS ---
MAMMOGRAPHY - BILATERAL SCREENING REASON FOR EXAM: Female, 45 years old. Routine annual screening examination. PERTINENT HISTORY: Non-contributory. TECHNIQUE: Digital bilateral breast mi (3D mammographic acquisition) in the CC and MLO projections. 2-D mediolateral oblique (MLO) and craniocaudad (CC) views of both breasts were obtained. CAD: Full Field Digital Mammography with Computer Added Detection was performed. COMPARISON: Comparison is made with prior study dated 10/08/2018 and 01/16/2017. FINDINGS: Breast Composition: There are scattered areas of fibroglandular density. There are no dominant masses or suspicious calcifications. No other significant abnormalities are identified. There has been no significant change since the prior study. BI/SCREEN MAMM (CAD) W/MI BILAT IMPRESSION: Stable bilateral screening mammogram. Yearly follow-up mammogram recommended. (A) ASSESSMENT CATEGORY: BIRADS Category 1: Negative. A letter regarding these results will be sent to the patient by the facility within 30 days. Approximately 10% of breast cancers are not detected by mammography. A normal mammogram should not delay biopsy of a clinically suspicious abnormality. [id number] Electronically Signed: Gregg Flores, at 8:17 EDT , Service support ,
== END ==
PROVIDERS: PCP Family Medicine; Referring Provider Obstetrics & Gynecology; Visit Provider Obstetrics & Gynecology
DX: Z12.31 Encounter for screening mammogram for malignant neoplasm of breast (principal)
CPT/HCPCS: 77063; 77067

== ENCOUNTER → 2020-12-08 | Outpatient (CLI) | payer OTHER, SELFPAY | END | disposition home or self-care (01) | LOC: LABSPEC 10:17 | PROVIDERS: PCP Family Medicine; Referring Provider Family Medicine; Visit Provider Family Medicine | DX: R82.90 Unspecified abnormal findings in urine (principal) | CPT/HCPCS: 87086; 87088 ==

== ENCOUNTER → 2021-02-06 09:49 | Outpatient (CLI) | payer OTHER, SELFPAY ==
--- NOTE | 2021-02-06 09:51 | BI_ITS ---
MAMMOGRAPHY - BILATERAL SCREENING REASON FOR EXAM: Female, 46 years old. Routine annual screening examination. PERTINENT HISTORY: Non-contributory. TECHNIQUE: Digital bilateral breast mi (3D mammographic acquisition) in the CC and MLO projections. 2-D mediolateral oblique (MLO) and craniocaudad (CC) views of both breasts were obtained. CAD: Full Field Digital Mammography with Computer Added Detection was performed. COMPARISON: Comparison is made with prior study dated 01/18/2020 and 04/10/2018. FINDINGS: Breast Composition: There are scattered areas of fibroglandular density. There are no dominant masses or suspicious calcifications. Stable small benign-appearing bilateral axillary lymph nodes. No other significant abnormalities are identified. There has been no significant change since the prior study. BI/SCRN MAMM (CAD)W/MI BILAT IMPRESSION: Stable bilateral screening mammogram. Yearly follow-up mammogram recommended. (A) ASSESSMENT CATEGORY: BIRADS Category 2: Benign. A letter regarding these results will be sent to the patient by the facility within 30 days. Approximately 10% of breast cancers are not detected by mammography. A normal mammogram should not delay biopsy of a clinically suspicious abnormality. [id number] Electronically Signed: Gregg Flores MD at 10:55 EST , Service support ,
== END ==
PROVIDERS: PCP Family Medicine; Visit Provider Obstetrics & Gynecology
DX: Z12.31 Encounter for screening mammogram for malignant neoplasm of breast (principal)
CPT/HCPCS: 77063; 77067

== ENCOUNTER → 2021-03-10 | Outpatient (CLI) | payer OTHER, SELFPAY ==
--- NOTE | 2021-03-09 | IMM_PTH ---
PATIENT: BHAVYA ALBERTO LOC: [facility] U#:[id number] AGE/SX: 46/F ROOM: RE03/10/[address]: Dr. Krystina Calle DO : 1975 BED: DIS: 03/10/2021 SPEC #: [id number] RECD: 03/13/21 14:42 STATUS: RYAN REManisha #: [id number] SAM: 03/09/21 00:[address]: Krystina Calle DEPT: IMMUNOHISTOCHEMISTRY RECD BY: Daphney Blankenship Tissues: Skin of chest Procedures: P53 (add) Vimentin (add) Pankeratin (add) MELAN-A (add) S100 (initial) PHYSICIAN & INSTITUTION [place] [id number] SPECIMEN INFORMATION: Tissue Source: B ? Right medial chest, excision Clinical Info: Abnormal nevi Specimen Number: [id number] CPT code: 49726, 20142 x4 METHODOLOGY: Deparaffinized sections of prefer/formalin-fixed tissue or PAP/DQ stained slides are incubated with monoclonal/polyclonal antibodies/oligonucleotide probes. Localization is made via biotin free immunoperoxidase method. Appropriate controls are performed and reacted as expected. Results on target cell population are indicated in the following table: RESULTS: ANTIBODY / CLONE RESULT Block B S-100 (4C4.9) positive Vimentin (V9) positive Melan A (A103) positive P53 (DO-7) negative AE1-3 (AE1/AE3/PCK26) negative These tests were developed and their performance characteristics determined by [facility]. They may not have been cleared or approved by the U.S. Food and Drug Administration. The FDA has determined that such clearance or approval is not necessary. The above immunohistochemical/dualISH markers are ordered and reviewed by the Pathologist. INTERPRETATION: Right medial chest, excision: Compound nevus with moderate to severe melanocytic atypia. AM:judy 03/27/2021
--- NOTE | 2021-03-09 | LES_PTH ---
PATIENT: BHAVYA ALBERTO LOC: [facility]#:[id number] AGE/SX: 46/F ROOM: RE03/10/[address]: Dr. Krystina Calle DO : 1975 BED: DIS: 03/10/2021 SPEC #: [id number] RECD: 03/09/21 17:25 STATUS: RYAN ROBI #: [id number] SAM: 03/09/21 00:[address]: Krystina Calle DEPT: SURGICAL PATHOLOGY RECD BY: Jose Luis David Tissues: A - Skin of nipple B - Skin of chest Procedures: Surgery Specimen Level IV HEADER OPERATION: Excision lesion PRE-OP DIAGNOSIS: Abnormal nevi TISSUE SUBMITTED: A ? Left breast superior nipple, B ? Right chest medial FIXATION TIME: 80.5 hours MICROSCOPIC DIAGNOSIS A. Left breast, superior nipple, biopsy: Dermal fibrosis. No evidence of malignancy. B. Right medial chest, excision: Compound nevus with moderate to severe melanocytic atypia. See comment. AM:judy 03/27/2021 COMMENT B. Immunohistochemistry ([id number]) supports the above diagnosis. The lesion focally extends to the peripheral inked margin of excision. Re-excision of lesion is recommended. This case is reviewed in consultation with Dr. Muniz of [facility]. The complete consultative report is viewable in EMR. MICROSCOPIC DESCRIPTION Slides are reviewed. GROSS DESCRIPTION A - Received in fixative is one container labeled with the patient's name and designated left breast superior nipple. The specimen consists of two irregular fragments of roach tissue that in aggregate measure 0.6 x 0.6 x 0.1 cm. The specimen is totally submitted in one cassette. B - Received in fixative is one container labeled with the patient's name and designated right chest medial. The specimen consists of an irregular fragment of light roach excised skin measuring 1 x 1 x 0.2 cm. The specimen is inked, serially sectioned and totally submitted in one cassette. / AM:judy 03/10/21 TC:? CPT: 11136 x2
== END | disposition home or self-care (01) ==
LOC: LABSPEC 08:25
PROVIDERS: PCP Family Medicine; Referring Provider Family Medicine; Visit Provider Family Medicine
DX: D22.5 Melanocytic nevi of trunk (principal)
CPT/HCPCS: 88305; 88341; 88342

== ENCOUNTER → 2021-07-20 | Outpatient (CLI) | payer OTHER, SELFPAY | END | disposition home or self-care (01) | PROVIDERS: PCP Family Medicine; Referring Provider Family Medicine; Visit Provider Family Medicine | DX: R82.90 Unspecified abnormal findings in urine (principal) | CPT/HCPCS: 87086; 87088 ==

== ENCOUNTER → 2021-07-21 | Outpatient (CLI) | payer OTHER, SELFPAY ==
[2021-07-21 09:32] LABS: Absolute Lymphocyte Count 1.49 X10^3/uL (0.83-4.51); Absolute Neutrophil Count 5.3 X10^3/uL (2.0-7.7); Basophil# 0.04 X10^3/uL; Basophil% 0.5 % (0-1); Eosinophil# 0.14 X10^3/uL; Eosinophils% 1.9 % (0-5); Hematocrit 42.1 % (37-47); Hemoglobin 13.7 g/dL (12.0-15.0); Lymphocyte # 1.49 X10^3/ul (0.83-4.51); Lymphocyte % 19.9 % (19-41); Mean Corp Hgb Conc 32.5 g/dL (32-36); Mean Corpuscular Hgb 27.1 pg (27.0-32.0); Mean Corpuscular Volume 83.2 fL (81-99); Mean Platelet Vol. 10.2 fl (6.2-12.0); Monocyte% 6.7 % (0-10); NRBC Flagged by Analyzer 0 % (0-5); Neutrophil # 5.26 X10^3/uL (2.7-7.7); Neutrophil % 70.3 % (47-70); Platelet Count 287 K/mm3 (150-450); RBC Distribution Width CV 13.2 % (11.6-14.6); Red Blood Count 5.06 M/mm3 (4.2-5.4); White Blood Count 7.5 K/mm3 (4.4-11.0)
[2021-07-21 10:07] LABS: Hemoglobin A1c 5.4 % (3.8-5.6)
[2021-07-21 10:16] LABS: ALB/GLOB Ratio 0.9 RATIO (0.9-2.4); AST(SGOT) 21 U/L (15-37); Alanine Aminotransfer ALT/SGPT 56 U/L (13-56); Albumin, Serum 3.4 g/dL (3.2-5.0); Alkaline Phosphatase 84 U/L (45-117); Anion Gap 5 (5-15); BUN 12 mg/dL (7-18); BUN/Creat Ratio 17.6 RATIO (10-20); Calcium,Total 8.6 mg/dL (8.5-10.1); Chloride 112 mmol/L (98-107); Creatinine, Serum 0.68 mg/dL (0.55-1.02); EST Glomerular Filtration Rate 100 mL/min (>60); Est Glom Filt Rate - Afr Amer 120 mL/min (>60); Free T3 2.1 pg/mL (2.18-3.98); Globulin 3.6 g/dL (2.2-4.2); Glucose 126 mg/dL (74-106); Potassium 3.7 mmol/L (3.5-5.1); Sodium Level 141 mmol/L (136-145); T4 Free Direct 1.01 ng/dL (0.76-1.46); Thyroid Stim Hormone (TSH) 1.18 uIU/mL (0.358-3.74)
[2021-07-22 09:45] LABS: Cancer Antigen 125 22.3 U/mL (0.0-38.1); H. Pylori Antibody (IgG) 0.59 (0.00-0.79)
== END | disposition home or self-care (01) ==
LOC: LAB 08:18
PROVIDERS: PCP Family Medicine; Referring Provider Family Medicine; Visit Provider Family Medicine
DX: E03.9 Hypothyroidism, unspecified (principal); R10.9 Unspecified abdominal pain; R14.0 Abdominal distension (gaseous); R19.7 Diarrhea, unspecified; R81 Glycosuria
CPT/HCPCS: 36415; 80053; 83036; 84439; 84443; 84481; 85025; 86304; 86677

== ENCOUNTER → 2021-07-27 | Outpatient (CLI) | payer OTHER, SELFPAY ==
--- NOTE | 2021-07-27 12:28 | CT_ITS ---
STUDY: CT ABDOMEN AND PELVIS WITH CONTRAST REASON FOR EXAM: Female, 46 years old. ABDOMINAL PAIN, DIARRHEA. Postprandial bloating. RADIATION DOSAGE (If Supplied By Facility): CTDIvol = ( 14.39 ) mGy, DLP = ( 1152.18 ) mGycm TECHNIQUE: Transaxial images were obtained from the dome of the diaphragm to the symphysis pubis with oral contrast. Oral and amp; IV Gastrografin and amp; 100mL Isovue-300 was administered. Sagittal and coronal images were reconstructed. Individualized dose optimization techniques were used for this CT. COMPARISON: Comparison is made with prior study dated 01/13/2019. FINDINGS: The visualized lung bases are unremarkable. The visualized portions of the heart are within normal limits. There is decreased attenuation of the liver consistent with steatosis. The patient is status post cholecystectomy. Normal spleen. Normal pancreas. Normal bilateral adrenal glands. Normal right kidney. Normal left kidney. Normal visualized stomach. Normal small intestine. Normal colon. The appendix is visualized and appears normal. Normal abdominal aorta. Normal inferior vena cava. Normal retroperitoneum. Normal urinary bladder. There is absence of the uterus consistent with a prior hysterectomy. Normal abdominal wall. Loss of the normal lumbar lordosis. Marked degree of disc space narrowing and spondylosis at the L5-S1 level. Central disc bulge. CT/Abdomen/Pelvis WITH Contrast IMPRESSION: Diffuse fatty infiltration of the liver. Electronically Signed: Gregg Flores MD at 14:03 EDT ,
[2021-07-27] MEDS: Loratadine 10 MG Tablet PO (13:25)
[2021-07-27] MEDS: DiphenhydrAMINE 25 MG Capsule 50 MG PO (13:25)
--- NOTE | 2021-07-27 13:33 | NURSING ---
After contrast injection, patient's face immediately flush evolving into hives on face and neck. Patient denies SOB. Verbal order for PO benadryl and loratadine from Dr. Flores. Given per order.
== END | disposition home or self-care (01) ==
LOC: CT 12:27
PROVIDERS: PCP Family Medicine; Referring Provider Family Medicine; Visit Provider Family Medicine
DX: R10.9 Unspecified abdominal pain (principal); R19.7 Diarrhea, unspecified
CPT/HCPCS: 74177; Q9967

== ENCOUNTER → 2021-12-29 | Outpatient (CLI) | payer OTHER, SELFPAY ==
--- NOTE | 2021-12-29 06:40 | MRI_ITS ---
STUDY: MRI LUMBAR SPINE WITHOUT CONTRAST REASON FOR EXAM: Female, 46 years old. LUMBAR SPONDYLOLISTHESIS, PAIN INTO R LEG TECHNIQUE: Standardized fat and water weighted pulse sequences were obtained in the sagittal and axial planes. COMPARISON: CT abdomen and pelvis with contrast 07/27/2021 and 01/13/2019. FINDINGS: T10-T11, T11-T12 and T12-L1: (Sagittal only). Normal endplates. Normal disc height, hydration and morphology. No ventral extradural defects. Normal central canal and bilateral intervertebral neural foramina. Normal lumbar lordosis. There is no substantial scoliosis. Normal conus medullaris that terminates at the upper L1 vertebral body level. L1-2: Normal endplates. Normal disc height, hydration and morphology. Normal bilateral facet joints. Normal central canal and bilateral lateral recesses. Normal bilateral intervertebral neural foramina. L2-3: Normal endplates. Normal disc height, hydration and morphology. Normal bilateral facet joints. Normal central canal and bilateral lateral recesses. Normal bilateral intervertebral neural foramina. L3-4: Normal endplates. Minimal disc space height narrowing. No ventral extradural defect. Normal facet joints. Prominent dorsal epidural lipomatosis. Mild central canal stenosis with an AP canal diameter of 8.6 mm. Normal bilateral lateral recesses. Normal bilateral intervertebral neural foramina. L4-5: Normal endplates. Mild disc space height narrowing. Minimal ventral extradural defect due to small posterior bulging annulus. Mild bilateral degenerative facet arthropathy. Mild dorsal epidural lipomatosis. Moderate central canal stenosis with an AP canal diameter of 7 mm. Normal bilateral lateral recesses. Normal bilateral intervertebral neural foramina. L5-S1: Normal endplates. Pronounced disc space height narrowing. Prominent ventral extradural defect is slightly eccentric to the right of midline and protrudes slightly caudally. This corresponds to the calcified disc protrusion but unchanged when compared to CT abdomen and pelvis of 07/27/2021 and 01/13/2019. There is suspicious minimal lateral displacement of the right S1 nerve root sleeve. There is mild stenosis of the right lateral recess. Normal left lateral recess. Normal tapered termination of the thecal sac at the upper S1 body level rather than central canal stenosis. Normal bilateral intervertebral neural foramina. Normal visualized sacral ala. Normal visualized paraspinous soft tissue structures. MRI/Spine Lumbar (Routine) IMPRESSION: 1. Pronounced L5-S1 disc space height narrowing with partially calcified right posterior paramedian and slightly caudal disc protrusion causing mild right lateral recess stenosis and possible minimal lateral displacement of the right S1 nerve root sleeve. This corresponds to the calcified posterior annulus and the calcified disc protrusion seen on CT abdomen and pelvis of 07/27/2021 and 01/13/2019. In my opinion, this is unchanged. 2. Moderate central canal stenosis at L4-L5 disc space level with an AP canal diameter of 7 mm and small posterior bulging annulus. This is also unchanged. 3. Mild central canal stenosis at L3-L4 disc space level with an AP canal diameter of 8.6 mm. This level is unchanged. 4. No significant interval changes or any obvious new findings since CT abdomen and pelvis of 07/27/2021 and 01/13/2019. Electronically Signed: Jd Govea MD at 8:47 EDT ,
== END | disposition home or self-care (01) ==
LOC: MRI 06:11
PROVIDERS: PCP Family Medicine; Visit Provider Family Medicine
DX: M54.17 Radiculopathy, lumbosacral region (principal); M47.817 Spondylosis without myelopathy or radiculopathy, lumbosacral region; M51.36 Other intervertebral disc degeneration, lumbar region
CPT/HCPCS: 72148

== ENCOUNTER 2022-02-08 07:58 | Outpatient (CLI) | payer OTHER, SELFPAY ==
--- NOTE | 2022-02-08 08:03 | BI_ITS ---
MAMMOGRAPHY - BILATERAL SCREENING REASON FOR EXAM: Female, 47 years old. Routine annual screening examination. PERTINENT HISTORY: Non-contributory. TECHNIQUE: Digital bilateral breast mi (3D mammographic acquisition) in the CC and MLO projections. 2-D mediolateral oblique (MLO) and craniocaudad (CC) views of both breasts were obtained. CAD: Full Field Digital Mammography with Computer Added Detection was performed. COMPARISON: Comparison is made with prior study dated 02/06/2021 and 01/18/2020. FINDINGS: Breast Composition: There are scattered areas of fibroglandular density. There are no dominant masses or suspicious calcifications. Stable small benign-appearing bilateral axillary lymph nodes. No other significant abnormalities are identified. There has been no significant change since the prior study. BI/SCRN MAMM (CAD)W/MI BILAT IMPRESSION: Stable bilateral screening mammogram. Yearly follow-up mammogram recommended. (A) ASSESSMENT CATEGORY: BIRADS Category 2: Benign. A letter regarding these results will be sent to the patient by the facility within 30 days. Approximately 10% of breast cancers are not detected by mammography. A normal mammogram should not delay biopsy of a clinically suspicious abnormality. [id number] Electronically Signed: Gregg Flores MD at 9:24 EST ,
== END 2022-02-08 23:59 | disposition home or self-care (01) ==
LOC: OPBI 08:02
PROVIDERS: PCP Family Medicine; Visit Provider Obstetrics & Gynecology
DX: Z12.31 Encounter for screening mammogram for malignant neoplasm of breast (principal)
CPT/HCPCS: 77063; 77067

== ENCOUNTER → 2022-03-01 | Outpatient (CLI) | payer OTHER, SELFPAY ==
[2022-03-01 16:09] LABS: Free T3 2.6 pg/mL (2.18-3.98); Thyroid Stim Hormone (TSH) 0.59 uIU/mL (0.358-3.74)
== END | disposition home or self-care (01) ==
LOC: LAB 14:42
PROVIDERS: PCP Family Medicine; Visit Provider Obstetrics & Gynecology
DX: E07.9 Disorder of thyroid, unspecified (principal)
CPT/HCPCS: 36415; 84439; 84443; 84481

== ENCOUNTER → 2022-03-03 | Outpatient (CLI) | payer OTHER, SELFPAY ==
--- NOTE | 2022-03-03 08:15 | EKG12_ITS ---
Test Reason : NEW MEDICATION Blood Pressure : / mmHG Vent. Rate : 070 BPM Atrial Rate : 070 BPM P-R Int : 190 ms QRS Dur : 102 ms QT Int : 428 ms P-R-T Axes : 022 059 018 degrees QTc Int : 462 ms Normal sinus rhythm Normal ECG Confirmed by SAMANTHA RIVERA, MEREDITH ([id number]), editor in chief VANESA RUELAS ([id number]) on 03/06/2022 11:12:26 AM Referred By: REJI Confirmed By:IAN SINGH MD
== END | disposition home or self-care (01) ==
LOC: PSN 08:15
PROVIDERS: PCP Family Medicine; Visit Provider Obstetrics & Gynecology
DX: E66.8 Other obesity (principal); Z68.39 Body mass index [BMI] 39.0-39.9, adult
CPT/HCPCS: 93005

== ENCOUNTER → 2022-06-16 | Outpatient (CLI) | payer OTHER, SELFPAY ==
[2022-06-16 12:19] LABS: Cholesterol 151 mg/dL (200); Glucose 108 mg/dL (74-106); High Density Lipoprotein 23 mg/dL; Triglycerides 351 mg/dL; Very Low Density Lipoprotein 70 mg/dL (5-40)
[2022-06-17 18:43] LABS: Hemoglobin A1c 5.3 % (3.8-5.6)
[2022-06-19 16:31] LABS: Vitamin D 1,25-Dihydroxy 43.8 pg/mL (24.8-81.5)
== END | disposition home or self-care (01) ==
LOC: LAB 11:11
PROVIDERS: PCP Family Medicine; Visit Provider Obstetrics & Gynecology
DX: E66.8 Other obesity (principal)
CPT/HCPCS: 36415; 80061; 82652; 82947; 83036

== ENCOUNTER → 2022-07-21 | Outpatient (CLI) | payer OTHER, SELFPAY ==
[2022-07-21 08:33] LABS: Hematocrit 39.5 % (37-47); Hemoglobin 12.3 g/dL (12.0-15.0); Mean Corp Hgb Conc 31.1 g/dL (32-36); Mean Corpuscular Hgb 28.9 pg (27.0-32.0); Mean Corpuscular Volume 92.9 fL (81-99); Mean Platelet Vol. 10.2 fl (6.2-12.0); POSITIVE COUNT YES; POSITIVE DIFFERENTIAL YES; POSITIVE MORPHOLOGY YES; Platelet Count 211 K/mm3 (150-450); RBC Distribution Width CV 17.4 % (11.6-14.6); RBC Distribution Width SD 59.3 fl (35.1-43.9); Red Blood Count 4.25 M/mm3 (4.2-5.4)
[2022-07-21 09:02] LABS: Cholesterol 141 mg/dL (200); High Density Lipoprotein 24 mg/dL; Triglycerides 300 mg/dL; Very Low Density Lipoprotein 60 mg/dL (5-40)
[2022-07-21 09:22] LABS: Differential Indicated MANUAL DIFF; White Blood Count 131.8 K/mm3 (4.4-11.0)
[2022-07-21 10:38] LABS: Eosinophil 3 % (0-5); Lymphocyte 6 % (19-41); Metamyelocyte 6 % (0-1); Monocyte 2 % (0-10); Myelocyte 5 % (0-0); Neutrophil-Band 15 % (0-5); Neutrophil-Segmented 54 % (47-70); Promyelocyte 3 % (0-0); Total Cells Counted 100 (MANUAL DIFF)
[2022-07-21 10:39] LABS: Platelet Estimate ADEQUATE (ADEQ); Red Cell Morphology NORM C+C NORMAL (NORM C&C)
[2022-07-21 10:46] LABS: Blast 6 % (0-0)
[2022-07-21 10:47] LABS: Absolute Lymphocyte Count 7.91 X10^3/uL (0.83-4.51); Absolute Neutrophil Count 90.9 X10^3/uL (2.0-7.7)
[2022-07-24 09:58] LABS: Pathologist Review Reviewed
== END | disposition home or self-care (01) ==
LOC: LAB 08:22
PROVIDERS: PCP Family Medicine; Referring Provider Family Medicine; Visit Provider Family Medicine
DX: D72.829 Elevated white blood cell count, unspecified (principal); E78.1 Pure hyperglyceridemia
CPT/HCPCS: 36415; 80061; 85025

== ENCOUNTER → 2022-11-01 | Outpatient (CLI) | payer OTHER, SELFPAY ==
--- NOTE | 2022-11-01 09:43 | ECHOD_ITS ---
Reason For Study: CARDIOTOXIC DRUG MONITORING Procedure This was a 2D Doppler, Color Flow transthoracic echocardiogram. Myocardial strain analysis was performed in this exam to aid in the assessment of cardiac function. Exam performed in department. Left Ventricle Normal LV size. The estimated ejection fraction is 60-65 %. Normal diastology for age. No regional wall motion abnormalities noted. Right Ventricle Normal RV size. Normal systolic function. Atria The left atrium is mildly enlarged. Normal right atrium. No doppler evidence for ASD. Mitral Valve There is no mitral valve stenosis. No mitral valve insufficiency. Tricuspid Valve There is no tricuspid stenosis. Trivial tricuspid valve insufficiency. Pulmonary artery systolic pressure is 20-25 mmHg. Aortic Valve Trisinus/trileaflet aortic valve. There is no aortic stenosis. No aortic valve insufficiency. Pulmonic Valve There is no pulmonic valvular stenosis. No pulmonic valve insufficiency. Great Vessels Normal aortic root. Pericardium/Pleural No pericardial effusion. MMode/2D Measurements & Calculations LVIDd: 6.0 cm IVSd: 1.0 cm Ao root diam: 3.4 cm LVIDs: 4.5 cm LVPWd: 1.2 cm RVDd: 3.2 cm FS: 24.4 % LAV(MOD-bp): 86.3 ml LVAd ap4: 38.5 cm2 SV(MOD-sp4): 71.7 ml LAV(MOD-bp) Indexed: 41.1 ml/m2 LVLd ap4: 8.9 cm LAV(MOD-sp2): 86.6 ml EDV(MOD-sp4): 135.2 ml LAV(MOD-sp4): 75.0 ml EDV(sp4-el): 142.2 ml LVAs ap4: 23.5 cm2 LVLs ap4: 7.3 cm ESV(MOD-sp4): 63.6 ml ESV(sp4-el): 63.9 ml EF(MOD-sp4): 53.0 % EF(sp4-el): 55.0 % SV(sp4-el): 78.2 ml LA A4 area: 24.4 cm2 LA dimension(2D): 4.4 cm RA A4 area: 16.6 cm2 TAPSE: 2.5 cm Time Measurements MV dec time: 0.25 sec Doppler Measurements & Calculations MV E max vahid: 111.9 cm/sec Lat Peak E' Vahid: 9.4 cm/sec Med Peak E' Vahid: 8.5 cm/sec MV A max vahid: 89.2 cm/sec E/E' lat: 11.9 E/E' med: 13.2 MV E/A: 1.3 MV V2 max: 117.9 cm/sec Ao V2 max: 164.7 cm/sec MV max P.6 mmHg MV dec slope: 444.3 cm/sec2 Ao max P.9 mmHg MV V2 mean: 73.3 cm/sec Ao V2 mean: 115.4 cm/sec MV mean P.4 mmHg Ao mean P.0 mmHg MV V2 VTI: 46.6 cm Ao V2 VTI: 40.6 cm AV (velocity ratio): 0.78 LV V1 max: 126.7 cm/sec PA V2 max: 89.4 cm/sec LV V1 max P.4 mmHg PA V2 mean: 67.7 cm/sec LV V1 mean P.9 mmHg LV V1 mean: 93.0 cm/sec LV V1 VTI: 31.7 cm ECHO/Echo Complete Interpretation Summary The estimated ejection fraction is 60-65 %. The left atrium is mildly enlarged. Ordering Physician: Fabiano Liz Referring Physician: Fabiano Liz Performed By: Lizette Perkins RCS
== END | disposition home or self-care (01) ==
LOC: CVS 09:41
PROVIDERS: PCP Family Medicine; Referring Provider Internal Medicine Hematology & Oncology; Visit Provider Internal Medicine Hematology & Oncology
DX: C92.10 Chronic myeloid leukemia, BCR/ABL-positive, not having achieved remission (principal); Z51.81 Encounter for therapeutic drug level monitoring; Z79.899 Other long term (current) drug therapy
CPT/HCPCS: 93306

== ENCOUNTER → 2023-01-07 | Outpatient (CLI) | payer OTHER, SELFPAY ==
--- NOTE | 2023-01-07 08:53 | US_ITS ---
STUDY: ULTRASOUND BREAST - RIGHT REASON FOR EXAM: Female, 47 years old. Palpable lump in the right breast. TECHNIQUE: Axial and longitudinal images of the RIGHT breast were performed with a high resolution ultrasound transducer. # OF IMAGES: 20 COMPARISON: Comparison is made with prior mammogram done earlier in the day. FINDINGS: RIGHT Breast: The upper inner quadrant of the right breast was examined with ultrasound. There is a 5 mm x 4 mm x 3 mm cyst at the 1:00 position of the breast at 15 cm from the nipple. 2 benign appearing lymph nodes are seen in the region as well. US/Breast Limited Unilateral IMPRESSION: Small cyst and small benign-appearing lymph nodes seen at the 1:00 position of the breast at 5 cm from the nipple. ASSESSMENT CATEGORY: BIRADS Category 2: Benign. A letter regarding these results will be sent to the patient by the facility within 30 days. Electronically Signed: Gregg Flores MD at 9:33 EDT ,
--- NOTE | 2023-01-07 08:53 | BI_ITS ---
MAMMOGRAPHY - BILATERAL DIAGNOSTIC REASON FOR EXAM: Female, 47 years old. right breast lump PERTINENT HISTORY: Non-contributory. TECHNIQUE: Digital examination. Mediolateral oblique (MLO) and craniocaudad (CC) views of both breasts were obtained. CAD: CAD was performed on this study. COMPARISON: 02/08/2022 FINDINGS: Breast Composition: There are scattered areas of fibroglandular density. There are no dominant masses or suspicious calcifications. No other significant abnormalities are identified. BI/DIAG MAMM W/CAD, BILAT IMPRESSION: Stable bilateral diagnostic mammogram. Ultrasound of the palpable abnormality will be obtained. ASSESSMENT CATEGORY: BIRADS Category 0: Incomplete. Need additional imaging evaluation. A letter regarding these results will be sent to the patient by the facility within 30 days. FOLLOW UP RECOMMENDATION: Ultrasound Recommended. (I) Approximately 10% of breast cancers are not detected by mammography. A normal mammogram should not delay biopsy of a clinically suspicious abnormality. Electronically Signed: Chau Martinez MD at 10:59 EDT ,
== END | disposition home or self-care (01) ==
PROVIDERS: PCP Family Medicine; Referring Provider Nurse Practitioner Women's Health; Visit Provider Nurse Practitioner Women's Health
DX: N63.12 Unspecified lump in the right breast, upper inner quadrant (principal); C92.10 Chronic myeloid leukemia, BCR/ABL-positive, not having achieved remission
CPT/HCPCS: 76642; 77062; 77066; G0279

== ENCOUNTER → 2023-06-11 | Outpatient (CLI) | payer OTHER, SELFPAY ==
--- NOTE | 2023-06-11 12:47 | ECHOD_ITS ---
Reason For Study: Chronic Myeloid Leukemia Procedure This was a 2D Doppler, Color Flow transthoracic echocardiogram. Myocardial strain analysis was performed in this exam to aid in the assessment of cardiac function. Exam performed in department. Left Ventricle Normal LV size. Left ventricular systolic function is normal. The estimated ejection fraction is 55 %. No regional wall motion abnormalities noted. Right Ventricle Normal RV size. Normal systolic function. Atria The left atrium is mildly enlarged. Normal right atrium. Mitral Valve Normal mitral valve. Tricuspid Valve Normal tricuspid valve. Aortic Valve Trisinus/trileaflet aortic valve. Pulmonic Valve Normal pulmonic valve. Great Vessels Normal aortic root. The pulmonary artery is normal size. Inferior vena cava collapse with respiration. Pericardium/Pleural No pericardial effusion. MMode/2D Measurements & Calculations LVIDd: 5.9 cm IVSd: 1.3 cm Ao root diam: 3.7 cm LVIDs: 3.9 cm LVPWd: 0.96 cm LA dimension: 4.7 cm RVDd: 4.3 cm FS: 34.1 % LAV(MOD-bp): 83.7 ml LVAd ap4: 35.3 cm2 LVAd ap2: 35.5 cm2 LAV(MOD-bp) Indexed: 39.3 ml/m2 LVLd ap4: 8.2 cm LVLd ap2: 7.7 cm LAV(MOD-sp2): 79.4 ml EDV(MOD-sp4): 122.6 ml EDV(MOD-sp2): 134.7 ml LAV(MOD-sp4): 79.5 ml EDV(sp4-el): 128.6 ml EDV(sp2-el): 137.9 ml LVAs ap4: 21.5 cm2 LVAs ap2: 20.8 cm2 LVLs ap4: 6.8 cm LVLs ap2: 7.0 cm ESV(MOD-sp4): 55.8 ml ESV(MOD-sp2): 52.7 ml ESV(sp4-el): 57.2 ml ESV(sp2-el): 52.2 ml EF(MOD-sp4): 54.4 % EF(MOD-sp2): 60.9 % EF(sp4-el): 55.5 % SV(MOD-sp4): 66.7 ml SV(MOD-sp2): 82.1 ml SV(sp4-el): 71.4 ml TAPSE: 2.5 cm LA A4 area: 24.1 cm2 RA A4 area: 20.2 cm2 Time Measurements MV dec time: 0.27 sec Doppler Measurements & Calculations MV E max vahid: 109.9 cm/sec Lat Peak E' Vahid: 11.3 cm/sec Med Peak E' Vahid: 10.8 cm/sec MV A max vahid: 85.5 cm/sec E/E' lat: 9.7 E/E' med: 10.2 MV E/A: 1.3 MV V2 max: 126.5 cm/sec MV P1/2t max vahid: 129.6 cm/sec Ao V2 max: 181.6 cm/sec MV max P.4 mmHg MV P1/2t: 95.3 msec Ao max P.2 mmHg MV V2 mean: 67.2 cm/sec MV dec slope: 398.3 cm/sec2 Ao V2 mean: 126.5 cm/sec MV mean P.2 mmHg Ao mean P.3 mmHg MV V2 VTI: 42.0 cm MVA(P1/2t): 2.3 cm2 Ao V2 VTI: 41.8 cm AV (velocity ratio): 0.74 LV V1 max: 124.0 cm/sec PA V2 max: 103.3 cm/sec LV V1 max P.2 mmHg LV V1 mean P.7 mmHg LV V1 mean: 90.5 cm/sec LV V1 VTI: 31.0 cm ECHO/Echo Complete Interpretation Summary Normal LV size. Left ventricular systolic function is normal. The estimated ejection fraction is 55 %. The left atrium is mildly enlarged. The global longitudinal strain is normal. The global longitudinal strain = -17. 6 % (normal). Ordering Physician: Fabiano Liz Referring Physician: Krystina Calle Performed By: Ricardo Henry RCS
== END | disposition home or self-care (01) ==
PROVIDERS: PCP Family Medicine; Referring Provider Internal Medicine Hematology & Oncology; Visit Provider Internal Medicine Hematology & Oncology
DX: C92.10 Chronic myeloid leukemia, BCR/ABL-positive, not having achieved remission (principal); I51.7 Cardiomegaly
CPT/HCPCS: 93306

== ENCOUNTER → 2023-10-23 | Outpatient (CLI) | payer OTHER, SELFPAY | END | disposition home or self-care (01) | LOC: BFHLAB 13:43 → LABSPEC 13:45 | PROVIDERS: PCP Family Medicine; Referring Provider Family Medicine; Visit Provider Family Medicine | DX: R82.90 Unspecified abnormal findings in urine (principal) | CPT/HCPCS: 87086; 87088; 87186 ==

== ENCOUNTER → 2023-10-30 | Outpatient (CLI) | payer OTHER, SELFPAY ==
[2023-10-30 11:27] LABS: Ferritin 42 ng/mL (8-252); Iron 40 ug/dL (50-170); Iron Binding Capacity,Total 380 ug/dL (250-450); PERCENT IRON SATURATION 10.5 % (15.0-55.0)
== END | disposition home or self-care (01) ==
LOC: LAB 09:26
PROVIDERS: PCP Family Medicine; Referring Provider Internal Medicine Hematology & Oncology; Visit Provider Internal Medicine Hematology & Oncology
DX: D50.8 Other iron deficiency anemias (principal)
CPT/HCPCS: 36415; 82728; 83540; 83550

== ENCOUNTER 2023-11-04 06:54 | Day surgery (SDC) | payer OTHER, SELFPAY ==
--- NOTE | 2023-11-04 07:06 | PCM.PRE.AN2 ---
ASA Classification* ASA Classification ASA Classification: 2 Assessment & Plan Anesthesia* Anesthesia Assessment Anesthesia Assessment: Discussed sedation and/or anesthesia options, risks, benefits, and alternatives with patient/parents/legal guardian/POA. Questions invited. The patient/parents/legal guardian/POA seems to understand and agrees to proceed with anesthesia plan. Reviewed the physical assessment, medical history, allergy history and patient home medications list prior to surgery/procedure/anesthetic and documented any changes. Performed airway and anesthesia risk assessments. Anesthesia Type Anesthesia Type: MAC Anesthesia Focused Assessment* Airway Assessment Mouth opens: >3 cm Mallampati Score: II Focused Labs Anesthesia Preop lab: CBC WBC 131.8 K/mm3 (4.4-11.0) H* 07/21/22 08: RBC 4.25 M/mm3 (4.2-5.4) 07/21/22 08:23 Hgb 12.3 g/dL (12.0-15.0) 07/21/22 08:23 Hct 39.5 % (37-47) 07/21/22 08:23 Plt Count 211 K/mm3 (150-450) 07/21/22 08:23 CHEMISTRY Potassium 3.7 mmol/L (3.5-5.1) 07/21/21 08:27 Sodium 141 mmol/L (136-145) 07/21/21 08:27 Magnesium 2.3 mg/dL (1.6-2.6) 06/26/18 06:32 Phosphorus 3.6 mg/dL (2.5-4.9) 12/10/19 11:38 BUN 12 mg/dL (7-18) 07/21/21 08:27 Creatinine 0.68 mg/dL (0.55-1.02) 07/21/21 08:27 Glucose 108 mg/dL (74-106) H 06/16/22 11:29 TSH 0.59 uIU/mL (0.358-3.74) 03/01/22 14:45 COAG Urine Test Negative Negative 08/20/17 12:40 Pre-Assessment Diagnosis/Proposed Procedure Planned Operative Procedure(s): CSCOPE Anesthesia History 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 When Was Last Pacemaker Check QUESTION #4 FULL TEXT: You/Your Family Experience fever (hyperthermia) with Anesthesia Last Oral Intake Last Oral intake: Last Oral Intake NPO since Meds taken in AM with sips of water? 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 jack mechanic Female Yes 10/30/23 10:59 HX of Motion Sickness Yes 10/30/23 10:59 HX of N/V After Surgery Yes 10/30/23 10:59 Non-Smoker Yes 10/30/23 10:59 Duration of Surgery greater No 10/30/23 10:59 than 60 minutes Number of Risk Factors 4 10/30/23 10:59 PONV Score Severe Risk 10/30/23 10:59 Height & Weight Height & Weight: Anesthesia: Height & Weight Height 5 ft 5 in 09/16/23 14:51 Respiratory Assessment Respiratory Assessment - hydraulic jack mechanic: Respiratory Tract Infection Hx - hydraulic jack mechanic Hx Respiratory Tract Infection No 10/30/23 10:59 STOP Sleep Apnea STOP Sleep Apnea - hydraulic jack mechanic: STOP Sleep Apnea - hydraulic jack mechanic Hx Hypertension No 10/30/23 10:59 Hx Sleep Apnea Yes 10/30/23 10:59 CPAP Yes 10/30/23 10:59 BIPAP No 10/30/23 10:59 Do you snore loudly (louder than talking or can be heard Do you often feel tired/ fatigued/ sleepy during daytime? Has anyone observed you stop breathing during sleep? STOP Results Positive 10/30/23 10:59 QUESTION #5 FULL TEXT : Do you snore loudly (louder than talking or can be heard through closed doors)? 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 Specify any problems Hx of Preganancy in last 3 N/A 10/30/23 10:59 Months Nurse Filling Out Transfusion NBUCHER 10/30/23 10:59 & Questions: Date: 10/30/23 10/30/23 10:59 Time: 11:00 10/30/23 10:59 Patient unable to answer at this time (ie. confused, unrespo /Reproduction History /Reproductive History - hydraulic jack mechanic: /Reproductive Hx- hydraulic jack mechanic Hx Now No 10/30/23 10:59 Gestational Age (in weeks): EDC: Hx Hx Para Hx Section SAB No 10/30/23 10:59 Active Medications Active Medications: Current Medications Generic Name Dose Route Start Last Admin Trade Name Freq PRN Reason Stop Dose Admin Lactated Ringer's 1,000 mls @ 15 mls/hr 11/04/23 07:00 IV .Q48H BUCKY PFSH Medical History Wears glasses Wears contact lenses Post-menopausal Thyroid disease Fatty liver Low iron Gastric reflux Heartburn Non-smoker Shortness of breath on exertion CPAP (continuous positive airway pressure) dependence Sleep apnea History of edema History of leukemia Cancer History of irregular heartbeat History of echocardiogram 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 GERD (gastroesophageal reflux disease) Anemia Home Medications ?Medication ?Instructions ?Recorded ?Last Taken ?Type levothyroxine 125 mcg capsule 125 mcg PO DAILY #90 caps 04/13/19 Unknown Rx (Tirosint) allopurinol 300 mg tablet 300 mg PO DAILY 02/19/23 Unknown History bosutinib 400 mg tablet (Bosulif) 400 mg PO DAILY 02/19/23 Unknown History furosemide 20 mg tablet 20 mg PO Q OTHER DAY PRN edema 02/19/23 Unknown History potassium chloride 10 mEq 10 meq PO BID 02/19/23 Unknown History tablet,extended release (Klor-Con) ondansetron HCl 8 mg tablet 8 mg PO Q8H PRN nausea and vomiting 09/16/23 Unknown History Allergy/AdvReac Type Severity Reaction Status Date / Time Iodinated Contrast Media Allergy Hives Verified 10/30/23 10:57 nalbuphine HCl (From Nubain) AdvReac Vomiting Verified 10/30/23 10:57 Family History Father CAD (coronary artery disease) Diabetes Other Hypertension Myocardial infarction Thyroid disorder Surgical History History of bone marrow biopsy H/O tubal ligation (~2005) delivery delivered H/O: hysterectomy History of cholecystectomy Social History household members: spouse current occupational status: employed Smoking Status: Never smoker alcohol intake: current alcohol intake frequency: holidays/special occasions only details: social substance use type: does not use caffeine: Yes what type of physical activity do you participate in: walking and weight training seatbelt use: always do you feel safe at home: Yes additional 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: - [facility] ER NURSE YAKOV [facility] Review of Systems (Anesthesia) ROS Narrative System reviewed and no additional complaints, except as documented.
[2023-11-04 07:10] VITALS: BP 138/78; PULSE 68; RESP 16; TEMP 36.6; O2SAT 98; BMI 39.2
[2023-11-04] MEDS: Lactated Ringers 1,000 ML 15 ML IV (07:30)
--- NOTE | 2023-11-04 07:51 | PCM.HP.STD ---
[facility] - General General Date of Admission: 11/27/23 Date of Service: 11/04/23 Chief Complaint: Screening colonoscopy HPI Benigno ALBERTO, is a 48 F who presents today for screening colonoscopy. She has a past medical history of CML, hypercholesterolemia, gastroesophageal reflux disease who arrives here today for first colonoscopy. She is not have abdominal pain. Denied any cramping. She denied any chest pain or shortness of breath. 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 GERD (gastroesophageal reflux disease) Anemia Home Medications ?Medication ?Instructions ?Recorded ?Last Taken ?Type levothyroxine 125 mcg capsule 125 mcg PO DAILY #90 caps 04/13/19 Unknown Rx (Tirosint) allopurinol 300 mg tablet 300 mg PO DAILY 02/19/23 Unknown History bosutinib 400 mg tablet (Bosulif) 400 mg PO DAILY 02/19/23 Unknown History furosemide 20 mg tablet 20 mg PO Q OTHER DAY PRN edema 02/19/23 Unknown History potassium chloride 10 mEq 10 meq PO BID 02/19/23 Unknown History tablet,extended release (Klor-Con) ondansetron HCl 8 mg tablet 8 mg PO Q8H PRN nausea and vomiting 09/16/23 Unknown History Allergy/AdvReac Type Severity Reaction Status Date / Time Iodinated Contrast Media Allergy Hives Verified 11/04/23 07:08 nalbuphine HCl (From Nubain) AdvReac Vomiting Verified 11/04/23 07:08 Family History Father CAD (coronary artery disease) Diabetes Other Hypertension Myocardial infarction Thyroid disorder Surgical History History of bone marrow biopsy H/O tubal ligation (~2005) delivery delivered H/O: hysterectomy History of cholecystectomy Social History household members: spouse current occupational status: employed Smoking Status: Never smoker alcohol intake: current alcohol intake frequency: holidays/special occasions only details: social substance use type: does not use caffeine: Yes what type of physical activity do you participate in: walking and weight training seatbelt use: always do you feel safe at home: Yes additional 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: - [facility] ER NURSE YAKOV [facility] ROS Review of Systems ROS Unobtainable: other Constitutional Constitutional: Denies fatigue, fever(s), poor appetite, weight gain or weight loss ENT HEENT: Denies mouth lesions Cardiovascular Cardiovascular: Denies abdominal bloating, abdominal edema or abdominal pain Respiratory/Chest Respiratory/Chest: Denies change in mental status, change in phlegm color, chest congestion or chest tightness Gastrointestinal Gastrointestinal: Denies belching, bloating, change in bowel habits, change in stool character, chewing difficulty, coffee ground emesis, constipation, cramping, diarrhea, dyspepsia, dysphagia, early satiety, excessive flatus, fecal incontinence, heartburn, hematemesis, hematochezia, hemorrhoids, loose stools, melena, nausea, odynophagia, rectal bleeding, tenesmus, vomiting or weight changes Genitourinary Genitourinary: Denies abdominal discomfort, burning urination or itching Musculoskeletal Musculoskeletal: Reports as per HPI; Denies muscle weakness or myalgias Integumentary Integumentary: Denies jaundice Neurologic Neurologic: Denies lack of coordination or weakness Psychiatric Psychiatric: Denies confusion, depression, memory loss, mood swings, paranoia or suicidal ideation Endocrine Endocrinology: Denies systems reviewed and no addt'l complaints, except as documented Hematologic/Lymphatic Hematologic/Lymphatic: Denies anemia, easy bleeding, easy bruising or lymphadenopathy Allergic/Immunologic Allergic/Immunologic: Denies systems reviewed and no addt'l complaints, except as documented Vital Signs Vital Signs Vital Signs: 11/04/23 07:10 11/04/23 07:10 Temperature 98 F Temperature Source Temporal Pulse Rate 68 Respiratory Rate 16 Respiratory Pattern Normal Blood Pressure 138/78 H Blood Pressure Mean 98 Blood Pressure Source Monitor Blood Pressure Position Semi-Fowlers Blood Pressure Location Left Arm Pulse Ox 98 Oxygen Delivery Method Room Air Weight Weight: 235 lb 14.314 oz Body Mass Index (BMI) 39.2 Physical Exam Const alert General Appearance: cooperative Orientation / Consciousness: oriented to person HEENT hearing grossly normal bilaterally Head and Scalp: normal to inspection Face and Sinus: face symmetric Nose: external nose normal Mouth: oral and palatal mucosa normal Eyes conjunctivae normal General Eye: normal appearance of both eyes Neck full ROM General: normal visual inspection Lymph Lymphatic: no lymphadenopathy noted Chest inspection of chest normal and palpation of chest normal Chest: symmetrical chest wall rise Resp normal respiratory effort Effort and Inspection: able to speak in complete sentences Cardio regular rate GI non-distended Percussion: normal to percussion Rectal Exam: deferred Neuro Speech: speech normal Gait (Neuro): normal gait Assessment & Plan Assessment/Plan (1) Encounter for screening for malignant neoplasm of colon: PLAN: She was explained alternatives, risk, benefits include not withstanding bleeding, infection, sepsis, perforation, need for emergent urgent . She will have an ASA of 3.
[2023-11-04 08:22] VITALS: BP 138/78; BP 98/59; PULSE 67; RESP 16; TEMP 36.3; O2SAT 97
--- NOTE | 2023-11-04 08:24 | OP.CCLET_ITS ---
11/04/2023 Krystina Calle [address] [place] [address] Re : Colonoscopy procedure for Libia Cronintaniyamaikol Dear Dr. Calle This procedure was performed on Saturday, November 04, 2023. My impressions and recommendations are as follows: Impressions : - Diverticulosis in the recto-sigmoid colon and in the sigmoid colon. - The examination was otherwise normal. - No specimens collected. Recommendations : - Discharge patient to home. - Resume previous diet. - Continue present medications. - Repeat colonoscopy in 10 years for screening purposes. My findings are described in the full procedure note, which is enclosed. If I can be of further assistance, please feel free to contact me at . Sincerely, Ugo Friend, 11/04/2023 8:24:14 AM This report has been signed electronically.
--- NOTE | 2023-11-04 08:24 | OP.COLON_ITS ---
Patient Name: Libia Olivas Procedure Date: 11/04/2023 7:58 AM Date of : 1975 Age: 48 Procedure: Colonoscopy Indications: Screening for colorectal malignant neoplasm Providers: Ugo Kelley DO Referring MD: Krystina Calle Medicines: Monitored Anesthesia Care Patient Profile: This is a 48 year old female. Refer to note in patient chart for documentation of history and physical. Last Colonoscopy: 10 years ago. Complications: No immediate complications. Procedure: Pre-Anesthesia Assessment: - Prior to the procedure, a History and Physical was performed, and patient medications and allergies were reviewed. The patient is competent. The risks and benefits of the procedure and the sedation options and risks were discussed with the patient. All questions were answered and informed consent was obtained. Patient identification and proposed procedure were verified by the physician in the pre-procedure area. Mental Status Examination: alert and oriented. Airway Examination: normal oropharyngeal airway and neck mobility. Respiratory Examination: clear to auscultation. CV Examination: normal. Prophylactic Antibiotics: The patient does not require prophylactic antibiotics. Prior Anticoagulants: The patient has taken no anticoagulant or antiplatelet agents. ASA Grade Assessment: II - A patient with mild systemic disease. After reviewing the risks and benefits, the patient was deemed in satisfactory condition to undergo the procedure. The anesthesia plan was to use monitored anesthesia care (MAC). Immediately prior to administration of medications, the patient was re-assessed for adequacy to receive sedatives. The heart rate, respiratory rate, oxygen saturations, blood pressure, adequacy of pulmonary ventilation, and response to care were monitored throughout the procedure. The physical status of the patient was re-assessed after the procedure. After I obtained informed consent, the scope was passed under direct vision. Throughout the procedure, the patient's blood pressure, pulse, and oxygen saturations were monitored continuously. The colonoscope was introduced through the anus and advanced to the cecum, identified by appendiceal orifice and ileocecal valve. The colonoscopy was performed without difficulty. The patient tolerated the procedure well. The quality of the bowel preparation was adequate. The terminal ileum, ileocecal valve, appendiceal orifice, and rectum were photographed. Scope In: 8:07:01 AM Scope Withdrawal Time 0 hours 9 minutes 13 seconds Scope Out: 8:18:58 AM Total Procedure Duration Time 0 hours 11 minutes 57 seconds Findings: The perianal and digital rectal examinations were normal. Multiple small-mouthed diverticula were found in the recto-sigmoid colon and sigmoid colon. No additional abnormalities were found on retroflexion. The exam was otherwise without abnormality. Impression: - Diverticulosis in the recto-sigmoid colon and in the sigmoid colon. - The examination was otherwise normal. - No specimens collected. Recommendation: - Discharge patient to home. - Resume previous diet. - Continue present medications. - Repeat colonoscopy in 10 years for screening purposes. Procedure Code(s): --- Professional --- G0121, Colorectal cancer screening; colonoscopy on individual not meeting criteria for high risk CPT copyright 2021 [employer]. All rights reserved. The codes documented in this report are preliminary and upon global marketing operations manager review may be revised to meet current compliance requirements. Ugo Kelley DO 11/04/2023 8:24:14 AM This report has been signed electronically. Number of Addenda: 0 Note Initiated On: 11/04/2023 7:58 AM
[2023-11-04 08:25] VITALS: BP 138/78; BP 89/71; BP 98/59; PULSE 68; RESP 16; TEMP 36.2; O2SAT 96; O2SAT 97
--- NOTE | 2023-11-04 08:25 | PCM.POST.ANE ---
Anesthesia: Postop Eval I Current Vital Signs Temperature: 97.2 F Pulse Rate: 68 Blood Pressure: 98/59 Respiratory Rate: 16 Pulse Ox: 96 Oxygen Delivery Method: Room Air Assessment Airway patent: Yes Spontaneous unlabored respirations: Yes Mental status: Awake and Calm nausea: No Vomiting: No Anesthesia Complication: No Fluid Hydration Crystalloid volume administer (ml): 600 Total IV fluid infused: 600 Progress Note Anesthesia document: Postop Eval 1 completed: Yes
[2023-11-04 08:30] VITALS: BP 103/60; BP 138/78; PULSE 63; RESP 16; O2SAT 95
[2023-11-04 08:35] VITALS: BP 113/63; BP 138/78; PULSE 62; RESP 16; TEMP 36.2; O2SAT 97
[2023-11-04 08:59] VITALS: BP 138/78
--- NOTE | 2023-11-04 11:44 | PCM.POSTANE2 ---
Anesthesia Postop Eval I Sum Postop Eval Completion status Anesthesia document: Postop Eval 1 completed: Yes Anesthesia Postop Eval I Summary Anesthesia Postop Eval I Summary: Anesthesia Postop Eval I: Assessment Summary Airway patent Yes 11/04/23 08:25 [email or web address] Spontaneous unlabored Yes 11/04/23 08:25 [email or web address] respirations Mental status Awake,Calm 11/04/23 08:25 [email or web address] nausea No 11/04/23 08:25 [email or web address] Vomiting No 11/04/23 08:25 [email or web address] Anesthesia Postop Eval I: Fluid Summary Crystalloid volume administer 600 11/04/23 08:25 [email or web address] (ml) Colloids volume administered ( ml) Blood Product volume administered (ml) Total IV fluid infused 600 11/04/23 08:25 [email or web address] Anesthesia Postop Eval I: Summary Notes Anesthesia Complication No 11/04/23 08:25 [email or web address] Anesthesia Complication Comment: Post-operative progress note Anesthesia: Postop Eval II Evaluation Mental status: Awake and Calm Pain Level: 0 nausea: No Vomiting: No Complications Anesthesia Complication: No
== END 2023-11-04 09:01 | disposition home or self-care (01) ==
LOC: EN 06:54 → AC 06:55
PROVIDERS: PCP Family Medicine; Referring Provider Family Medicine; Visit Provider Internal Medicine Gastroenterology
PROC: 0DJD8ZZ Inspection of Lower Intestinal Tract, Via Natural or Artificial Opening Endoscopic (ICD-10-PCS; CPT 45378; principal; 2023-11-04 07:55)
DX: Z12.11 Encounter for screening for malignant neoplasm of colon (principal); C92.10 Chronic myeloid leukemia, BCR/ABL-positive, not having achieved remission; K57.30 Diverticulosis of large intestine without perforation or abscess without bleeding; E78.00 Pure hypercholesterolemia, unspecified; K21.9 Gastro-esophageal reflux disease without esophagitis; Z79.899 Other long term (current) drug therapy; E66.8 Other obesity; Z68.37 Body mass index [BMI] 37.0-37.9, adult
CPT/HCPCS: 45378; J7120; J2405

== ENCOUNTER 2023-11-08 09:15 | Outpatient (CLI) | payer OTHER, SELFPAY ==
[2023-11-08 09:34] VITALS: BP 131/75; PULSE 92; RESP 16; TEMP 36.3; O2SAT 95; BMI 39.1
[2023-11-08] MEDS: Sodium Ferric Gluconat/Sucrose 125 MG in 0.9% Normal Saline (100mL Bag) 100 ML 110 MG IV (09:46)
[2023-11-08 11:34] VITALS: BP 122/79; PULSE 61
== END 2023-11-08 23:59 | disposition home or self-care (01) ==
LOC: MEDOUTP 09:16
PROVIDERS: PCP Family Medicine; Referring Provider Internal Medicine Hematology & Oncology; Visit Provider Internal Medicine Hematology & Oncology
DX: D50.9 Iron deficiency anemia, unspecified (principal)
CPT/HCPCS: 96365; A4216; J2916

== ENCOUNTER 2023-11-12 12:56 | Outpatient (CLI) | payer OTHER, SELFPAY ==
[2023-11-12 13:23] VITALS: BP 129/73; PULSE 66; RESP 16; TEMP 36.2; O2SAT 98; BMI 39.1
[2023-11-12] MEDS: Sodium Ferric Gluconat/Sucrose 125 MG in 0.9% Normal Saline (100mL Bag) 100 ML 110 MG IV (13:39)
[2023-11-12 15:02] VITALS: BP 131/58; PULSE 63; RESP 16
== END 2023-11-12 23:59 | disposition home or self-care (01) ==
LOC: MEDOUTP 12:56
PROVIDERS: PCP Family Medicine; Referring Provider Internal Medicine Hematology & Oncology; Visit Provider Internal Medicine Hematology & Oncology
DX: D50.9 Iron deficiency anemia, unspecified (principal)
CPT/HCPCS: 96365; A4216; J2916

== ENCOUNTER 2023-11-22 09:44 | Outpatient (CLI) | payer OTHER, SELFPAY ==
[2023-11-22 09:56] VITALS: BP 129/62; PULSE 68; RESP 16; TEMP 36.3; O2SAT 99; BMI 39.1
[2023-11-22] MEDS: Sodium Ferric Gluconat/Sucrose 125 MG in 0.9% Normal Saline (100mL Bag) 100 ML 110 MG IV (10:10)
[2023-11-22 11:49] VITALS: BP 140/62; PULSE 66; RESP 16; TEMP 36.5; O2SAT 99
== END 2023-11-22 23:59 | disposition home or self-care (01) ==
LOC: MEDOUTP 09:44
PROVIDERS: PCP Family Medicine; Referring Provider Internal Medicine Hematology & Oncology; Visit Provider Internal Medicine Hematology & Oncology
DX: D50.9 Iron deficiency anemia, unspecified (principal)
CPT/HCPCS: 96365; J7050; A4216; J2916

== ENCOUNTER 2023-11-29 08:44 | Outpatient (CLI) | payer OTHER, SELFPAY ==
[2023-11-29 09:01] VITALS: BP 138/56; PULSE 72; RESP 16; TEMP 36.2; O2SAT 97; BMI 39.4
[2023-11-29] MEDS: Sodium Ferric Gluconat/Sucrose 125 MG in 0.9% Normal Saline (100mL Bag) 100 ML 110 MG IV (09:39)
[2023-11-29 11:13] VITALS: BP 135/71; PULSE 63; RESP 16; TEMP 36.4; O2SAT 99
== END 2023-11-29 23:59 | disposition home or self-care (01) ==
LOC: MEDOUTP 08:44
PROVIDERS: PCP Family Medicine; Referring Provider Internal Medicine Hematology & Oncology; Visit Provider Internal Medicine Hematology & Oncology
DX: D50.9 Iron deficiency anemia, unspecified (principal)
CPT/HCPCS: 96365; J7050; A4216; J2916

== ENCOUNTER 2023-12-02 10:23 | Outpatient (CLI) | payer OTHER, SELFPAY ==
[2023-12-02 10:49] VITALS: BP 138/57; PULSE 70; RESP 16; TEMP 36.6; O2SAT 95
[2023-12-02] MEDS: Sodium Ferric Gluconat/Sucrose 125 MG in 0.9% Normal Saline (100mL Bag) 100 ML 110 MG IV (11:14)
== END 2023-12-02 23:59 | disposition home or self-care (01) ==
LOC: MEDOUTP 10:23
PROVIDERS: PCP Family Medicine; Referring Provider Internal Medicine Hematology & Oncology; Visit Provider Internal Medicine Hematology & Oncology
DX: D50.9 Iron deficiency anemia, unspecified (principal)
CPT/HCPCS: 96365; J2916

== ENCOUNTER 2023-12-09 12:53 | Outpatient (CLI) | payer OTHER, SELFPAY ==
[2023-12-09] MEDS: Sodium Ferric Gluconat/Sucrose 125 MG in 0.9% Normal Saline (100mL Bag) 100 ML 110 MG IV (13:36)
[2023-12-09 13:37] VITALS: BP 117/67; PULSE 62; RESP 16; TEMP 36.8; O2SAT 100; BMI 39.1
[2023-12-09 14:56] VITALS: BP 117/58; PULSE 57; RESP 16; TEMP 36.5; O2SAT 100
== END 2023-12-09 23:59 | disposition home or self-care (01) ==
LOC: MEDOUTP 12:53
PROVIDERS: PCP Family Medicine; Referring Provider Internal Medicine Hematology & Oncology; Visit Provider Internal Medicine Hematology & Oncology
DX: D50.9 Iron deficiency anemia, unspecified (principal)
CPT/HCPCS: 96365; A4216; J2916

== ENCOUNTER 2023-12-19 08:53 | Outpatient (CLI) | payer OTHER, SELFPAY ==
[2023-12-19 09:09] VITALS: BP 126/57; PULSE 65; RESP 16; TEMP 35.9; O2SAT 99; BMI 39.1
[2023-12-19] MEDS: Sodium Ferric Gluconat/Sucrose 125 MG in 0.9% Normal Saline (100mL Bag) 100 ML 110 MG IV (09:34)
[2023-12-19 10:56] VITALS: BP 123/63; PULSE 67; RESP 16; TEMP 36.2; O2SAT 98
== END 2023-12-19 23:59 | disposition home or self-care (01) ==
LOC: MEDOUTP 08:53
PROVIDERS: PCP Family Medicine; Referring Provider Internal Medicine Hematology & Oncology; Visit Provider Internal Medicine Hematology & Oncology
DX: D50.9 Iron deficiency anemia, unspecified (principal)
CPT/HCPCS: 96365; J7050; A4216; J2916

== ENCOUNTER 2023-12-23 08:55 | Outpatient (CLI) | payer OTHER, SELFPAY ==
[2023-12-23 09:07] VITALS: BP 133/61; PULSE 67; RESP 16; TEMP 36.1; O2SAT 97
[2023-12-23] MEDS: 0.9% NaCl Peripheral Flush Adult/Peds IV (09:09)
[2023-12-23] MEDS: 0.9% NaCl IVPB Med Flush (250 mL) 15 ML IV (09:17)
[2023-12-23] MEDS: Sodium Ferric Gluconat 125 MG in 0.9% Normal Saline 100 ML 110 MG IV (09:26)
[2023-12-23 10:56] VITALS: BP 131/80; PULSE 58
== END 2023-12-23 23:59 | disposition home or self-care (01) ==
LOC: MEDOUTP 08:55
PROVIDERS: PCP Family Medicine; Referring Provider Internal Medicine Hematology & Oncology; Visit Provider Internal Medicine Hematology & Oncology
DX: D50.9 Iron deficiency anemia, unspecified (principal)
CPT/HCPCS: 96365; J7050; A4216; J2916

== ENCOUNTER → 2024-01-09 | Outpatient (CLI) | payer OTHER, SELFPAY ==
--- NOTE | 2024-01-09 09:41 | BI_ITS ---
MAMMOGRAPHY - BILATERAL SCREENING 3-D TOMOSYNTHESIS REASON FOR EXAM: Female, 48 years old. SCREENING PERTINENT HISTORY: No significant family history. TECHNIQUE: 2-D mammograms and 3-D Tomosynthesis of the breast (s) were performed. CAD was performed. COMPARISON: 01/07/2023 FINDINGS: The breast composition is composed of scattered fibroglandular density. Scattered benign calcifications are seen. No dense spiculated masses or suspicious microcalcifications are identified. No architectural distortion is identified. There is no skin thickening or retraction. There has been no significant change since the prior study. BI/SCRN MAMM (CAD)W/MI BILAT IMPRESSION: No mammographic signs of malignancy. Routine yearly mammograms recommended. ASSESSMENT CATEGORY: BIRADS Category 1: Negative. A letter regarding these results will be sent to the patient by the facility within 30 days. FOLLOW UP RECOMMENDATION: Yearly follow up mammogram recommended. (A) Approximately 10% of breast cancers are not detected by mammography. A normal mammogram should not delay biopsy of a clinically suspicious abnormality. Electronically Signed: Chau Martinez MD at 13:23 EDT ,
== END | disposition home or self-care (01) ==
LOC: OPBI 09:39
PROVIDERS: PCP Family Medicine; Referring Provider Family Medicine; Visit Provider Family Medicine
DX: Z12.31 Encounter for screening mammogram for malignant neoplasm of breast (principal)
CPT/HCPCS: 77063; 77067

== ENCOUNTER → 2024-06-15 | Outpatient (CLI) | payer OTHER, SELFPAY ==
[2024-06-15 14:44] LABS: Lipase 18 U/L (13-75)
== END | disposition home or self-care (01) ==
LOC: LAB 12:14
PROVIDERS: PCP Family Medicine; Referring Provider Internal Medicine Hematology & Oncology; Visit Provider Internal Medicine Hematology & Oncology
DX: C92.10 Chronic myeloid leukemia, BCR/ABL-positive, not having achieved remission (principal)
CPT/HCPCS: 36415; 83690

== ENCOUNTER → 2024-06-18 | Outpatient (CLI) | payer OTHER, SELFPAY ==
--- NOTE | 2024-06-18 11:50 | RAD_ITS ---
PROCEDURE: LUMBAR SPINE 2 OR 3 VIEWS 06/18/2024 REASON FOR EXAM: ACUTE LOW BACK PAIN TECHNIQUE: 3 view(s) of the lumbar spine COMPARISON: MRI lumbar spine dated 12/29/2021 FINDINGS: There are 5 lumbar-type vertebral bodies below the last set of paired ribs. The vertebral body heights are within normal limits. There is a proximally 3 mm of retrolisthesis of L5 in relationship to S1. There is a proximally 2 mm of anterolisthesis of L4 in relationship to L5. Very mild degenerative changes of the lumbar spine are noted. There is disc space narrowing involving the L4-L5 and L5-S1 disc spaces. The remaining disc spaces appear to be well preserved. Sacrum appears grossly unremarkable. RAD/Lumbar Spine 2 or 3 Views IMPRESSION: Degenerative disc disease involving the L4-L5 and L5-S1 disc spaces. This is mo st pronounced at the L5-S1 disc space. Recommendation: An MRI of the lumbar spine may be of value for further evaluati on of the disc space and nerve roots in this patient who has having increasing low back pain with radiculopathy type symptom s and abnormal plain film findings. Reading Location: [id number]
== END | disposition home or self-care (01) ==
PROVIDERS: PCP Family Medicine
DX: M54.41 Lumbago with sciatica, right side (principal)
CPT/HCPCS: 72100

== ENCOUNTER → 2024-07-14 | Outpatient (CLI) | payer OTHER, SELFPAY ==
--- NOTE | 2024-07-14 17:22 | RAD_ITS ---
PROCEDURE: L/S SPINE BENDING FLEX/EXT 07/14/2024 REASON FOR EXAM: PAIN TECHNIQUE: 2 view of the lumbar spine FINDINGS: Vertebrae: No fracture. Discs: Mild multilevel disc space narrowing. Alignment: 5 mm of retrolisthesis of L5 on S1. This is unchanged on the flexion and extension views. Other: RAD/L/S Spine Bending Flex/Ext IMPRESSION: 5 mm of retrolisthesis of L5 on S1 unchanged on the flexion and extension views . Reading Location: [id number]
== END | disposition home or self-care (01) ==
LOC: RAD 17:20
PROVIDERS: PCP Family Medicine; Visit Provider Student in an Organized Health Care Education/Training Program
DX: M54.50 Low back pain, unspecified (principal)
CPT/HCPCS: 72120

== ENCOUNTER → 2024-08-10 | Outpatient (CLI) | payer OTHER, SELFPAY ==
--- NOTE | 2024-08-10 16:06 | MRI_ITS ---
PROCEDURE: SPINE LUMBAR (ROUTINE) 08/10/2024 REASON FOR EXAM: PAIN TECHNIQUE: Multiplanar and multisequence images were obtained without IV contrast administration. COMPARISON: July 14, 2024 x-ray, December 29, 2021 MRI FINDINGS: There is grade 1 retrolisthesis at L5-S1, 0.6 cm. The vertebral body height is maintained. Vertebral body marrow signal is normal. Intervertebral disc signal shows desiccation from L3-S1. Normal appearing facets are noted. The L1-L2 level: There is no significant disk protrusion. There is no lateral recess stenosis or foraminal stenosis. There is no critical central canal stenosis. The L2-L3 level: There is no significant disk protrusion. There is no lateral recess stenosis or foraminal stenosis. There is no critical central canal stenosis. The L3-L4 level: There is disc extrusion which extends into the right lateral recess and into the right neural foramen, attached at the margin, measuring 0.3 by 0.9 by 1.5 cm. There is moderate right lateral recess effacement. There is moderate right foraminal narrowing secondary to disc protrusion and facet hypertrophy. There is no central canal stenosis. The L4-L5 level: There is mild central and moderate right and left paracentral disc protrusion. There is mild bilateral lateral recess effacement. There is mild bilateral foraminal narrowing secondary to disc protrusion and facet hypertrophy. There is mild central canal stenosis. The L5-S1 level: There is disc extrusion which extends beyond the S1 endplate, attached at the margin, measuring 0.6 by 1.0 by 1.0 cm. There is severe right and moderate left lateral recess effacement. There is mild right and moderate left foraminal narrowing secondary to disc protrusion and facet hypertrophy. There is moderate central canal stenosis. The visualized conus shows normal signal characteristics. Adjacent soft tissues are unremarkable. MRI/Spine Lumbar (Routine) IMPRESSION: There is grade 1 retrolisthesis at L5-S1, 0.6 cm. There is disc extrusion at L3-4 and L5-S1. There is mild central canal stenosis at L4-5, moderate central canal stenosis a t L5-S1, with lateral recess and foraminal narrowing. There is no significant interval change. Reading Location: [id number]
== END | disposition home or self-care (01) ==
LOC: MRI 16:02
PROVIDERS: PCP Family Medicine
DX: M48.061 Spinal stenosis, lumbar region without neurogenic claudication (principal)
CPT/HCPCS: 72148

== ENCOUNTER → 2024-10-29 | Outpatient (CLI) | payer OTHER, SELFPAY ==
--- OUTSIDE RECORDS SUMMARY | 2024-10-29 08:42 | XMS RPT_ITS | CCD ---
Author Organization [facility] Care Team Providers Care Fur Stretcher Name Role Phone EMPLOYEE, HEALTH Attending Unavailable MISC, DOCTOR Primary Care Unavailable EMPLOYEE, HEALTH Attending Unavailable MISC, DOCTOR Primary Care Unavailable Dr. Krystina Calle Primary Care Provider [phone] Dr. Krystina Calle Referring Provider [phone] Monie Mckeon Attending Provider [phone] Dr. Krystina Calle Primary Care Provider [phone] Dr. Krystina Calle Referring Provider Dr. Monie Mckeon Attending Provider Dr. Anabelle Peña Attending Provider Dr. Monie Mckeon Referring Provider Marycarmen GLOBAL MARKETING MANAGER, GLOBAL MARKETING MANAGER-C Mee Attending Provider Krystina Calle DO Primary Care Provider Dr. Krystina Calle Primary Care Provider Dr. Krystina Calle Referring Provider [phone] Monie Mckeon Attending Provider Monie Mckeon Unavailable Bibi RN, Ligia Unavailable Unavailable Dr. Krystina Calle Primary Care Provider Dr. Anabelle Peña Attending Provider Bibi RN, Ligia Unavailable Unavailable Dr. Krystina Calle Referring Provider [phone] Marycarmen GLOBAL MARKETING MANAGER, GLOBAL MARKETING MANAGERChinmay Caban Attending Provider Kasandra Rg Unavailable Unavailabl e Malys DO, Krystina A Primary Care Provider Erichi Fabiano HART Unavailable Luc, Dr. Flaherty Primary Care Provider Dr. Krystina Calle Referring Provider [phone]([facility])[phone] [facility] Mcke[facility] Malys DO, Krystina Sharp Primary Care Provider Monie Mckeon MD Unavailable Luc HART, Dr. Flaherty Primary Care Provider 1([facility])[phone] Luc HART, Dr. Flaherty Referring Provider 1([facility])[phone] Dr. Monie Mckeon MD Attending Provider Masci , Dr. Mario Attending Provider Masci DO, Dr. Mario Referring Provider ESHA READ Attending Provider ESHA READ Referring Provider Dr. Krystina Calle DO Primary Care Provider 1([facility])[phone] Mireya Ashton Attending Provider ESHA READ Attending Provider 1([facility])[phone] ESHA READ Referring Provider 1([facility])[phone] Luc HART, Dr. Flaherty Referring Provider [phone] Dallas Rojas MD Attending Provider Malys, Krystina Primary Care Unavailable Malys, Krystina Referring Unavailable Malys, Krystina Attending Unavailable Dallas Rojas Referring Unavailable Dallas Rojas Attending Unavailable Malys, Krystina Primary Care Unavailable Malys, Krystina Primary Care Unavailable Masci, Fabiano Attending Unavailable Masci, Fabiano Referring Unavailable Malys, Krystina Primary Care Unavailable Masci, Fabiano Attending Unavailable Masci, Fabiano Referring Unavailable Malys, Krystina Primary Care Unavailable Masci, Fabiano Attending Unavailable Masci, Fabiano Referring Unavailable Masci, Fabiano Referring Unavailable Malys, Krystina Primary Care Unavailable Masci, Fabiano Attending Unavailable Malys, Krystina Primary Care Unavailable Masci, Fabiano Attending Unavailable Masci, Fabiano Referring Unavailable Malys, Krystina Attending Unavailable Malys, Krystina Primary Care Unavailable Malys, Krystina Referring Unavailable Malys, Krystina Primary Care Unavailable Masci, Fabiano Referring Unavailable Masci, Fabiano Attending Unavailable Friend, Ugo Attending Unavailable Malys, Krystina Primary Care Unavailable Malys, Krystina Referring Unavailable Malys, Krystina Primary Care Unavailable Masci, Fabiano Attending Unavailable Masci, Fabiano Referring Unavailable NIRMALNATH Referring Unavailable NIRMALNATH Attending Unavailable Malys, Krystina Primary Care Unavailable NIRMALNATH Referring Unavailable NIRMALNATH Attending Unavailable Malys, Krystina Primary Care Unavailable Friend, Ugo Attending Unavailable Friend, Ugo Consulting Unavailable Malys, Krystina Primary Care Unavailable Malys, Krystina Referring Unavailable Monie Mckeon Attending Unavailable Malys, Krystina Primary Care Unavailable Malys, Krsytina Referring Unavailable Dallas Rojas Attending Unavailable Malys, Krystina Primary Care Unavailable Malys, Krystina Referring Unavailable Malys, Krystina Primary Care Unavailable Masci, Fabiano Referring Unavailable Masci, Fabiano Attending Unavailable Malys, Krystina Primary Care Unavailable Masci, Fabiano Attending Unavailable Masci, Fabiano Referring Unavailable Malys, Krystina Primary Care Unavailable Masci, Fabiano Attending Unavailable Masci, Fabiano Referring Unavailable Mireya Cortez Attending Unavailable Malys, Krystina Primary Care Unavailable MASCI, FABIANO A Attending Unavailable MASCI, FABIANO A Referring Unavailable MALYS, KRYSTINA A Primary Care Unavailable MALYS, KRYSTINA A Primary Care Unavailable MALYS, KRYSTINA A Primary Care Unavailable MASCI, FABIANO A Referring Unavailable MALYS, KRYSTINA A Primary Care Unavailable MASCI, FABIANO A Attending Unavailable MASCI, FABIANO A Referring Unavailable MALYS, KRYSTINA A Primary Care Unavailable MASCI, FABIANO A Referring Unavailable MALYS, KRYSTINA A Primary Care Unavailable DEVIKA BRUSH Attending Unavailable MASCI, FABIANO A Referring Unavailable MALYS, KRYSTINA A Primary Care Unavailable MASCI, FABIANO A Referring Unavailable MALYS, KRYSTINA A Primary Care Unavailable MASCI, FABIANO A Attending Unavailable MASCI, FABIANO A Referring Unavailable MALYS, KRYSTINA A Primary Care Unavailable MALYS, KRYSTINA A Primary Care Unavailable MASCI, FABIANO A Referring Unavailable MALYS, KRYSTINA A Primary Care Unavailable ESHA READ Attending Unavailable MASCI, FABIANO A Referring Unavailable KRYSTINA CALLE Primary Care Unavailable Allergies Allergy Classification Reported Allergen(s) Allergy Type Date of Onset Reaction(s) Facility (20 sources) Nalbuphine; Translations: [nalbuphine HCl] Drug Allergy 6 Vomiting [facility] (20 sources) Iodinated Contrast Media; Translations: [Iodinated Contrast Media] Allergy to substance 2 Hives, Swelling [facility] Medications Current Medications Medication Drug Class(es) Dates Sig (Normalized) Sig (Original) acetaminophen 325 mg oral tablet (20 sources) take 1 tablet by mouth every six hours as needed acetaminophen (TYLENOL) 325 mg tablet Take 325 mg by mouth every 6 hours as needed. Active Comment on above: Take 325 mg by mouth every 6 hours as needed. allopurinol 300 mg oral tablet (20 sources) Xanthine Oxidase Inhibitor Start: 07-23-2022 End: 05-13-2024 take 1 tablet by mouth once daily allopurinol (ZYLOPRIM) 300 mg tablet Take 1 tablet by mouth once daily. 30 tablet 5 05/14/2024 Active Comment on above: Take 1 tablet by [facility] once daily. asciminib (SCEMBLIX) 40 mg tablet (17 sources) Start: 09-29-2024 take 2 tablets by mouth once daily asciminib (SCEMBLIX) 40 mg tablet Take 2 tablets (80 mg) by mouth once daily on an empty stomach, 1 hour before or 2 hours after eating 60 tablet 5 10/01/2024 11:14 AM EDT 09/29/2024 Active Start: 09-29-[address] [facility] once daily asciminib (SCEMBLIX) 40 mg tablet Take 2 tablets (80 mg) by mouth once daily on an empty stomach, 1 hour before or 2 hours after eating 60 tablet 5 09/29/2024 Active Start: 06-08-2024 take 2 tablets by mo [facility] once daily asciminib (SCEMBLIX) 40 mg tablet Take 2 tablets (80 mg) by mouth once daily on an empty stomach, 1 hour before or 2 hours after eating 60 tablet 5 06/08/2024 Active Start: 04-27-2024 End: 06-08-2024 take 2 tablets by mouth once daily asciminib (SCEMBLIX) 40 mg tablet Take 2 tablets (80 mg) by mouth once daily on an empty stomach, 1 hour before or 2 hours after eating 60 tablet 5 06/01/2024 3:18 PM EDT 04/27/2024 06/08/2024 Discontinued Start: 04-27-2024 take 2 tablets by mo [facility] once daily asciminib (SCEMBLIX) 40 mg tablet Take 2 tablets (80 mg) by mouth once daily on an empty stomach, 1 hour before or 2 hours after eating 60 tablet 5 06/01/2024 3:18 PM EDT 04/27/2024 Active Start: 04-27-2024 take 2 tablets by mo [facility] once daily asciminib (SCEMBLIX) 40 mg tablet Take 2 tablets (80 mg) by mouth once daily. 60 tablet 5 04/27/2024 Active furosemide 20 mg oral tablet (20 sources) Loop Diuretic Start: 02-19-2023 take 1 tablet by mouth every other day as needed for edema Furosemide 20 mg tablet Active 20 mg PO every other day as needed for edema February 19, 2023 1:00am Start: 10-22-2022 take 1 tablet by todd th once daily furosemide (LASIX) 20 mg tablet Take 1 tablet by mouth once daily. 30 tablet 2 10/22/2022 Active Comment on above: Take 1 tablet by todd th once daily. ibuprofen 200 mg oral capsule (20 sources) Nonsteroidal Anti-inflammatory Drug take 1 capsule by mouth every six hours as needed Ibuprofen 200 mg cap Take 1 capsule by mouth every 6 hours as needed. Active Comment on above: Take by mouth every 6 hours as needed. levothyroxine sodium 0.125 mg oral capsule (20 sources) l-Thyroxine Start: 04-13-19 take 1 capsule by mouth once daily Levothyroxine (Tirosint) 125 mcg capsule Active 125 ug PO DAILY April 13, 2019 1:00am Start: 10-01-2013 End: 07-25-2022 Levothyroxine 50 MCG tablet Discontinued 75 ug PO DAILY October 01, 2013 12:00am April 13, 2019 5:03pm Start: 10-01-2013 End: 04-13-2019 take 75 ug by mouth once daily Levothyroxine Discontin ued 75 MCG PO DAILY October 01, 2013 12:00am April 13, 2019 5:03pm take 1 tablet by todd th once daily levothyroxine (SYNTHROID) 125 mcg tablet Take 125 mcg by mouth once daily. Active Comment on above: Take 75 mcg by mouth daily before breakfast. Take 125 mcg by mout h once daily. ondansetron 8 mg oral tablet (20 sources) Serotonin-3 Receptor Antagonist Start: 08-11-19 End: 03-31-19 take 1 tablet by mouth every eight hours as needed for nausea and vomiting ondansetron (ZOFRAN) 8 mg tablet Indications: CML (chronic myelocytic leukemia) (HCC) Take 1 tablet by mouth every 8 hours as needed (For chemotherapy induced nausea and vomiting). 30 tablet 2 03/31/2024 Active Comment on above: Take 1 tablet by todd th every 8 hours as needed (For chemotherapy induced nausea and vomiting). pantoprazole 40 mg delayed release oral tablet (5 sources) Proton Pump Inhibitor Start: 07-02-19 take 1 tablet by mouth once daily pantoprazole DR (PROTONIX) 40 mg tablet Take 1 tablet by mouth once daily. 90 tablet 3 07/01/2024 Active perflutren lipid microspheres 1.3 mL in NaCl (PF) 0.9% 10 mL injection (DEFINITY) (20 sources) Start: 10-25-19 End: 01-23-20 24 perflutren lipid microspheres 1.3 mL in NaCl (PF) 0.9% 10 mL injection (DEFINITY) potassium chloride 10 meq extended release oral tablet (20 sources) Start: 05-13-19 take 2 tablets by mouth once daily potassium chloride (K-TAB) 10 mEq tablet Take 2 tablets by mouth once daily. 180 tablet 3 05/13/2024 Active Start: 02-24-2024 Potassium Chlo ride (Klor-Con 10) 10 mEq tablet extended release Active 20 meq PO TWICE A DAY February 24, 2024 10:10am Start: 10-03-2023 End: 05-13-2024 potassium chloride (K-TAB) 1 0 mEq tablet Take 1 tablet by mouth once daily. Daily, If using Lasix BID 60 tablet 5 10/03/2023 05/13/2024 Discontinued Start: 02-19-2023 Potassium Chlo ride (Klor-Con 10) 10 mEq tablet extended release Active 10 MEQ PO DAILY February 19, 2023 1:00am Start: 10-22-2022 End: 02-24-2024 Potassium Chloride (Klor-Con 10) 10 mEq tablet extended release Discontinued 10 meq PO TWICE A DAY February 19, 2023 1:00am February 24, 2024 10:10am Start: 10-11-2022 End: 10-22-2022 take 1 tablet by mouth once daily potassium chloride (K-TAB) 10 mEq tablet Take 1 tablet by mouth once daily. 30 tablet 5 10/11/2022 10/22/2022 Discontinued Comment on above: Take 1 tablet by todd th twice daily. Take 1 tablet by todd th once daily. predniSONE 20 mg oral tablet (1 source) Start: 07-01-2024 End: 07-13-2024 take 2 tablets by mouth once daily, then take 1 tablet by mouth once daily, then take 0.5 tablet by mouth once daily predniSONE (DELTASONE) 20 mg tablet Take 2 tablets by mouth once daily for 4 days, THEN 1 tablet once daily for 4 days, THEN 0.5 tablets once daily for 4 days. 14 tablet 07/01/2024 07/13/2024 Active 125 ml sodium chloride 9 mg/ml prefilled syringe (20 sources) Start: 10-24-2022 End: 01-23-2024 sodium chloride 0.9 % (flush) 10 mL (BD POSIFLUSH) Vit E-Vit K-Safflower Oil (11 sources) Start: 01-13-2019 Vit E-Vit K-Safflower Oil Active January 13, 2019 7:31am Start: 01-13-2019 End: 02-19-2023 Vit E-Vit K-Safflower Oil Di scontinued January 13, 2019 12:00am February 19, 2023 10:31am Start: 01-13-2019 Vit E-Vit K-Sa fflower Oil Active January 13, 2019 12:00am Start: 01-13-2019 Vit E-Vit K-Sa fflower Oil Active January 12, 2019 11:00pm Completed/Discontinued Medications Medication Drug Class(es) Dates Sig (Normalized) Sig (Original) acetaminophen 325 mg / oxyCODONE hydrochloride 5 mg oral tablet (6 sources) Opioid Agonist Start: 07-25-2022 End: 07-25-2022 oxyCODONE-acetamin ophen (PERCOCET) 5-325 mg tablet Indications: Other elevated white blood cell (WBC) count , CML (chronic myelocytic leukemia) (HCC) Take 1 tablet by mouth one time only for 1 dose. Take 1 tablet 1 hour prior to bone marrow biopsy. Do not start before July 25, 2022. 1 tablet 0 07/25/2022 07/25/2022 Comment on above: Take 1 tablet by todd one time only for 1 dose. Take 1 tablet 1 hour prior to bone marrow biopsy. Do not start before July 25, 2022. ascorbic acid 1000 mg oral tablet (20 sources) Vitamin C Start: 08-16-2017 End: 02-19-2023 take 1 tablet by mouth once daily Ascorbic Acid (Vitamin C) (Vitamin C) 1,000 MG tablet Discontinued 1000 mg PO DAILY August 16, 2017 12:00am February 19, 2023 10:30am Comment on above: Take 1,000 mg by todd once daily. bosutinib 400 mg oral tablet (20 sources) Kinase Inhibitor Start: 07-26-2022 End: 08-20-2024 take 1 tablet by mouth once daily at mealtime Bosutinib (Bosulif) 400 mg tablet Discontinued 400 mg PO DAILY February 19, 2023 1:00am August 20, 2024 8:22am must administer with a meal/food Comment on above: Take 1 tablet (400 m g) by mouth once daily. Take 1 tablet (400 m g) by mouth once daily with food. TAKE 1 TABLET ONCE D AILY WITH FOOD. Calcium Carbonate (3 sources) End: 07-24-2022 calcium carbonate (CALCARB 600 ORAL) Take by mouth. 0 07/24/2022 Discontinued calcium carbonat e (CALCARB 600 ORAL) Take by mouth. 0 Active Comment on above: Take by mouth. calcium carbonate 1250 mg / cholecalciferol 600 unt oral tablet (16 sources) Vitamin D Start: 08-16-2017 End: 02-19-2023 Calcium Carbonate-Vitamin D3 1 EACH tablet Discontinued 2 NMA PO DAILY August 16, 2017 12:00am February 19, 2023 10:30am Start: 08-16-2017 End: 02-19-2023 Calcium Carbonate-Vitamin D3 Discontinued 2 EACH PO DAILY August 16, 2017 12:00am February 19, 2023 10:30am celecoxib 200 mg oral capsule (16 sources) Nonsteroidal Anti-inflammatory Drug Start: 05-08-2019 End: 12-24-2019 take 1 capsule by mouth once daily Celecoxib 200 MG capsule Discontinued 200 mg PO DAILY May 08, 2019 1:00am December 24, 2019 11:33am cholecalciferol 0.025 mg oral tablet (20 sources) Vitamin D Start: 08-16-2017 End: 02-19-2023 take 2 tablets by mouth once daily Cholecalciferol (Vitamin D3) 1,000 UNIT tablet Discontinued 2000 U PO DAILY August 16, 2017 12:00am February 19, 2023 10:30am Start: 08-16-2017 End: 02-19-2023 take 2000 [IU] by mouth once daily Cholecalciferol (Vitamin D3) Discontinued 2000 UNIT PO DAILY August 16, 2017 12:00am February 19, 2023 10:30am End: 07-25-2022 take 1 capsule by mouth once daily Cholecalciferol, Vitamin D3, (VITAMIN D) 1,000 unit cap Take 1,000 Units by mouth once daily. 0 07/25/2022 Discontinued Comment on above: Take 1,000 Units by mouth once daily. cyclobenzaprine hydrochloride 10 mg oral tablet (16 sources) Muscle Relaxant Start: End: take 1 tablet by mouth three times daily as needed for muscle spasms Cyclobenzaprine 10 MG tablet Discontinued 10 mg PO THREE TIMES A DAY as needed for Muscle Spasm January 13, 2019 12:00am December 24, 2019 11:34am LORazepam 1 mg oral tablet (6 sources) Benzodiazepine Start: 023 End: LORazepam (ATIVAN) 1 mg tablet Indications: Other elevated white blood cell (WBC) count , CML (chronic myelocytic leukemia) (HCC) Take 1 tablet by mouth one time only for 1 dose. Take 1 tablet 1 hour prior to bone marrow biopsy. Do not start before July 25, 2022. 1 tablet 0 07/25/2022 07/25/2022 Comment on above: Take 1 tablet by [facility] one time only for 1 dose. Take 1 tablet 1 hour prior to bone marrow biopsy. Do not start before July 25, 2022. MULTI-VITAMIN ORAL (5 sources) End: 023 MULTI-VITAMIN ORAL Take by mouth. 0 07/25/2022 Discontinued MULTI-VITAMIN OR AL Take by mouth. 0 Active Comment on above: Take by mouth. omeprazole 20 mg delayed release oral capsule (20 sources) Proton Pump Inhibitor Start: 08-20-2017 End: 02-19-2023 Omeprazole 20 MG capsule Discontinued 40 mg PO NEEDED as needed for reflux January 13, 2019 7:35am February 19, 2023 10:31am Start: 08-20-2017 End: 02-19-2023 Omeprazole Discontinued 40 M G PO NEEDED January 13, 2019 7:35am February 19, 2023 10:31am oseltamivir 75 mg oral capsule (16 sources) Neuraminidase Inhibitor Start: 05-08-2019 End: 12-24-2019 take 1 capsule by mouth twice daily Oseltamivir 75 MG capsule Discontinued 75 mg PO TWICE A DAY May 08, 2019 1:00am December 24, 2019 11:34am phentermine hydrochloride 37.5 mg oral tablet (20 sources) Sympathomimetic Amine Anorectic Start: 05-21-2022 End: 02-19-2023 Phentermine (Adipex-P) 37.5 mg tablet Discontinued 18.75 mg PO daily June 28, 2022 9:49am February 19, 2023 10:31am BMI 36 Start: 03-01-2022 End: 05-21-2022 take 1 tablet by mouth once daily Phentermine (Adipex-P) 37.5 mg tablet Discontinued 37.5 mg PO daily April 24, 2022 5:07pm May 21, 2022 5:27pm BMI 37 Progesterone (5 sources) Progesterone End: 07-25-2022 PROGESTERONE MICRONIZED ORAL Take by mouth. 0 07/25/2022 Discontinued PROGESTERONE MISSY RONIZED ORAL Take by mouth. 0 Active Comment on above: Take by mouth. topiramate 25 mg oral tablet (20 sources) Start: 06-28-2022 End: 07-04-2022 take 1 capsule by mouth once daily Topiramate 50 mg capsule,extended release 24hr Discontinued 50 mg PO DAILY June 28, 2022 12:00am July 04, 2022 7:58am Start: 06-28-2022 End: 07-04-2022 take 50 mg by mouth once daily Topiramate Discontinued 50 MG PO DAILY 30 June 28, 2022 12:00am July 04, 2022 7:58am Start: 05-21-2022 End: 02-19-2023 take 1-2 tablets by mouth once daily Topiramate (Topamax) 25 mg tablet Discontinued 25 mg PO TWICE A DAY 60 July 04, 2022 7:57am February 19, 2023 10:31am 1-2 x daily. Vit E-Vit K-Safflower Oil 52 ML oil (5 sources) Start: 01-13-2019 End: 02-19-2023 Vit E-Vit K-Safflower Oil 52 ML oil Discontinued January 13, 2019 12:00am February 19, 2023 10:31am vitamin a 2.4 mg oral capsule (16 sources) Vitamin A Start: 12-24-2019 End: 02-19-2023 Vitamin A 8,000 unit capsule Discontinued 8000 U PO DAILY December 24, 2019 12:00am February 19, 2023 10:31am vitamin b12 1 mg oral tablet (20 sources) Vitamin B12 Start: 08-16-2017 End: 02-19-2023 take 1 tablet by mouth once daily Cyanocobalamin (Vitamin B-12) (Vitamin B-12) 1,000 MCG tablet Discontinued 1000 ug PO DAILY August 16, 2017 12:00am February 19, 2023 10:30am Comment on above: Take 1,000 mcg by mo ut once daily. Problems Active Problems Problem Classification Problem Date Documented Date Episodic/Chronic Deficiency and other anemia (2 sources) Iron deficiency anemia; Translations: [Iron deficiency anemia, unspecified] 10-22-2022 Episodic Deficiency and other anemia (1 source) Iron deficiency anemia secondary to inadequate dietary iron intake; Translations: [Other iron deficiency anemias] 10-30-2023 Episodic Diabetes mellitus without complication (1 source) Impaired fasting glucose; Translations: [Impaired fasting glucose] Onset: 10-27-2024 Episodic Diseases of white blood cells (5 sources) Leukocytosis; Translations: [Other elevated white blood cell count] Chronic Disorders of lipid metabolism (11 sources) Hypercholesterolemia; Translations: [Pure hypercholesterolemia, unspecified] 06-18-2022 Chronic Comment on above: continue weight loss , nutrition consult placed, referral to PCP to see if medication is desired Esophageal disorders (20 sources) Gastroesophageal reflux disease; Translations: [Gastro-esophageal reflux disease without esophagitis] Onset: 10-12-2024 Chronic Comment on above: weight loss planned Influenza (16 sources) Influenza due to Influenza A virus; Translations: [Influenza due to other identified influenza virus with other respiratory manifestations] 05-09-2019 Episodic Leukemias (20 sources) Chronic myeloid leukemia; Translations: [Chronic myeloid leukemia, BCR/ABL-positive, not having achieved remission] Onset: 06-22-2024 Chronic Menopausal disorders (20 sources) Menopausal syndrome; Translations: [Menopausal and female climacteric states] Chronic Comment on above: vaginal dryness, patrizia allie and sensation changes. support given reviewed interventions if desired. AEH ordered Nonmalignant breast conditions (8 sources) Breast lump; Translations: [Unspecified lump in the right breast, unspecified quadrant] 12-31-2022 Episodic Other acquired deformities (1 source) Spondylolisthesis, lumbar region; Translations: [Spondylolisthesis, lumbar region] Onset: 10-26-2024 Episodic Other aftercare (1 source) Drug therapy finding; Translations: [Encounter for therapeutic drug level monitoring] 10-24-2022 Episodic Other ear and sense organ disorders (1 source) Impacted cerumen in left ear; Translations: [Impacted cerumen, left ear] Episodic Other ear and sense organ disorders (1 source) Hearing loss of left ear; Translations: [Impacted cerumen, left ear] Episodic Other lower respiratory disease (2 sources) Cough; Translations: [Acute cough] Episodic Other lower respiratory disease (2 sources) Dyspnea; Translations: [Dyspnea, unspecified] 04-26-2023 Episodic Other non-traumatic joint disorders (16 sources) Pain in left knee; Translations: [Left knee pain] 03-27-2018 Episodic Other nutritional; endocrine; and metabolic disorders (13 sources) Obesity; Translations: [Other obesity] 05-21-2022 Chronic Comment on above: IF 16:8. discussed w eight management options, patient to decide on nutritional plan. [id number] discussed options- plan making generic qsymia with 1/2 dose phenteramine and switch to topamax extended release 50 mg. discussed calorie restriction [id number] mahi when in her eating window. use [employer] for tracking. nutrition consult Other nutritional; endocrine; and metabolic disorders (13 sources) Body mass index 30+ - obesity; Translations: [Body mass index (BMI) 39.0-39.9, adult] 05-21-2022 Chronic Comment on above: discussed calorie re striction during fasting window- [id number] mahi depending on activity Other nutritional; endocrine; and metabolic disorders (5 sources) Body mass index (BMI) 39.0-39.9, adult; Translations: [Body Mass Index 39.0-39.9, adult] Chronic Other nutritional; endocrine; and metabolic disorders (11 sources) Other obesity; Translations: [Obesity, unspecified] Chronic Other nutritional; endocrine; and metabolic disorders (3 sources) Body mass index (BMI) 37.0-37.9, adult; Translations: [Body Mass Index 37.0-37.9, adult] 05-21-2022 Chronic Other nutritional; endocrine; and metabolic disorders (1 source) History of iron deficiency; Translations: [Personal history of other endocrine, nutritional and metabolic disease] 04-27-2024 Episodic Other upper respiratory infections (1 source) Acute upper respiratory infection; Translations: [Acute upper respiratory infection, unspecified] 06-11-2023 Episodic Spondylosis; intervertebral disc disorders; other back problems (12 sources) Acute back pain with sciatica; Translations: [Lumbago with sciatica, right side] Onset: 06-23-2024 06-19-2024 Episodic Thyroid disorders (3 sources) Acquired hypothyroidism; Translations: [Hypothyroidism, unspecified] Onset: 10-27-2024 10-22-2022 Chronic Unclassified (1 source) Low back pain, unspecified; Translations: [Low back pain, unspecified] Onset: 08-20-2024 Past or Other Problems Problem Classification Problem Date Documented Da te Episodic/Chronic Biliary tract disease (20 sources) Disorder of gallbladder; Translations: [Other specified diseases of gallbladder] Onset: 09-07-2009 09-07-2009 Episodic Deficiency and other anemia (1 source) Iron deficiency anemia, unspecified; Translations: [Iron deficiency anemia, unspecified] Onset: 01-15-2024 Episodic Deficiency and other anemia (2 sources) Other iron deficiency anemias; Translations: [Other iron deficiency anemias] Onset: 11-28-2023 Episodic Other and unspecified benign neoplasm (20 sources) Melanocytic nevus of skin ; Translations: [Melanocytic nevi of scalp and neck] Onset: 05-23-2015 05-23-2015 Episodic Other and unspecified benign neoplasm (20 sources) Dermal cellular nevus ; Translations: [Other benign neoplasm of skin, unspecified] Onset: 06-14-2015 06-14-2015 Episodic Other screening for suspected conditions (not mental disorders or infectious disease) (8 sources) Patient encounter status; Translations: [Encounter for screening for malignant neoplasm of colon] Onset: 11-12-2023 09-16-2023 Episodic Other skin disorders (20 sources) Sebaceous cyst of skin; Translations: [Sebaceous cyst] Onset: 05-23-2015 05-23-2015 Episodic Results Test Name Value Interpretation Reference Range Facility BCR/ABL1 P190 QUANTITATIVE P CR BLOODon 10-12-2024 BCR/ABL1 P190 INTERPRETATION Normal [facility] Comment on above: Order Comment: Speci men Type: BLOOD SPECIMEN Ordering Facility: [facility] Address: [address] [place] [address] Result Comment: BCR/ ABL1 p190 Quantitative PCR Laboratory Accession Number: [id number] Result: UNDETECTED NCN: N/A Interpretation: p190 BCR/ABL1 transcripts were not detected. This result does not exclude the possibility of very low level transcripts below the limit of detection of this assay (>MR4.6), and a result of not detected does not exclude the presence of other BCR/ABL1 transcripts not targeted by this assay. Clinical correlation is suggested. Methodology: RNA was extracted from this sample, and cDNA prepared by reverse talent acquisition operations manager. Real time PCR was performed using primers for e1a2 BCR/ABL1 fusion transcripts and ABL1 transcripts (qPCR BCR/ABL minor, [employer], [place], [place]). This test does not detect p210 (e13a2 or e14a2) or other rare BCR/ABL1 transcripts. This assay has a limit of quantification of 0.0036% (LR4.4) and limit of detection of 0.0025% (LR4.6). Disclaimer: This test was developed and its performance characteristics determined by [facility]'s Pathology and Laboratory Medicine Department. It has not been cleared or approved by the FDA. [facility]'s Pathology and Laboratory Medicine Department is regulated under CLIA as certified to perform high-complexity testing. This test is used for clinical purposes. It should not be regarded as investigational or for research. Test performed at [facility], [address] [place] [address]. CLIA Number: [id number] Interpretation performed by Jessica Bennett, PhD, [facility] Performed By: #### 2 4323-8 #### [facility] CLIA [id number] [address] [place] [address] [place] BCR/ABL1 [id number] BLOOD( AND BCR/ABL1:ABL1)on 10-12-2024 BCR/ABL1 P190 NCN(%BCR/ABL1:ABL1) N/A Normal [facility] Comment on above: Order Comment: Speci men Type: BLOOD SPECIMENOrdering Facility: [facility] Address: [address] [place] [address] Performed By: #### P 210P, P190P ####[facility] LIMSCLIA [id number] [place] [address] [place]#### 190NCBP, 210ISBP ####[facility] LABCLIA [id number] [place] [address] [place] BCR/ABL1 P210 %IS PANELon BCR/ABL1 P210 %IS 0.003 Normal [facility] Comment on above: Order Comment: Speci men Type: BLOOD SPECIMENOrdering Facility: [facility] Address: [address] [place] [address] Performed By: #### P 210P, P190P ####[facility] LIMSCLIA [id number] [place] [address] [place]#### 190NCBP, 210ISBP ####[facility] LABCLIA [id number] [place] [address] [place] BCR/ABL1 P210 MR 4.53 Normal [facility] Comment on above: Order Comment: Speci men Type: BLOOD SPECIMENOrdering Facility: [facility] Address: [address] [place] [address] Performed By: #### P 210P, P190P ####[facility] LIMSCLIA [id number] [place] [address] [place]#### 190NCBP, 210ISBP ####[facility] LABCLIA [id number] [place] [address] [place] BCR/ABL1 P210 QUANTITATIVE P CR BLOODon 10-12-2024 BCR/ABL1 P210 INTERPRETATION Normal [facility] Comment on above: Order Comment: Speci men Type: BLOOD SPECIMEN Ordering Facility: [facility] Address: [address] [place] [address] Result Comment: BCR/ ABL1 p210 Quantitative PCR Laboratory Accession Number: [id number] Result: DETECTED MR: 4.53 %IS: 0.003 Interpretation: p210 BCR/ABL1 transcripts were detected. Quantitative results are expressed on the International Scale (IS) and a log molecular response (MR) is calculated. On this scale, a value of less than or equal to 0.1% corresponds to a major molecular response (MMR or MR3.0). Methodology: The [employer] QuantideX BCR/ABL IS assay is an FDA-cleared in vitro diagnostic test for the quantitation of BCR/ABL1 and ABL1 transcripts in total RNA from whole blood of diagnosed t(9;22) positive chronic myeloid leukemia patients expressing e13a2 and/or e14a2 fusion transcripts. This test does not detect p190 (e1a2) or other rare BCR/ABL1 transcripts. This assay has a limit of quantification and limit of detection of 0.002% IS or MR4.7. References: 1) Jaciel et al, Blood 2006;108:28-37; Cross et al, Leukemia 2015;29:999-1003 Interpretation performed by Jessica Bennett, PhD, [facility] Performed By: #### 2 4323-8 #### [facility] CLIA [id number] [address] [place] [address] [place] CBC W Auto Differential pane l (Bld)on 10-12-2024 Basophils (Bld) [#/Vol] 0.06 10*3/uL Normal <0.11 [facility] Comment on above: Order Comment: Speci men Type: BLOOD SPECIMENOrdering Facility: [facility] Address: [address] [place] [address] Performed By: #### 5 7021-8 ####[facility]LIA [id number] [place] [address] [place] Basophils/100 WBC (Bld) 0.6 % Normal [facility] Comment on above: Order Comment: Speci men Type: BLOOD SPECIMENOrdering Facility: [facility] Address: [address] [place] [address] Performed By: #### 5 7021-8 ####[facility]LIA [id number] [place] [address] [place] Differential cell count method Nom (Bld) Auto Normal [facility] Comment on above: Order Comment: Speci men Type: BLOOD SPECIMENOrdering Facility: [facility] Address: [address] [place] [address] Performed By: #### 5 7021-8 ####[facility] ERA [id number] [place] [address] [place] Eosinophils (Bld) [#/Vol] 0.18 10*3/uL Normal <0.46 [facility] Comment on above: Order Comment: Speci men Type: BLOOD SPECIMENOrdering Facility: [facility] Address: [address] [place] [address] Performed By: #### 5 7021-8 ####[facility]IA [id number] [place] [address] [place] Eosinophils/100 WBC (Bld) 1.8 % Normal [facility] Comment on above: Order Comment: Speci men Type: BLOOD SPECIMENOrdering Facility: [facility] Address: [address] [place] [address] Performed By: #### 5 7021-8 ####[facility]ITAL[facility]CLIA [id number] [place] [address] [place] Erythrocyte distribution width (RBC) [Ratio] 13.2 % Normal 11.5-15.0 [facility] Comment on above: Order Comment: Speci men Type: BLOOD SPECIMENOrdering Facility: [facility] Address: [address] [place] [address] Performed By: #### 5 7021-8 ####[facility] [id number] [place] [address] [place] Hematocrit (Bld) [Volume fraction] 39.8 % Normal 36.0-46.0 [facility] Comment on above: Order Comment: Speci men Type: BLOOD SPECIMENOrdering Facility: [facility] Address: [address] [place] [address] Performed By: #### 5 7021-8 ####[facility] [id number] [place] [address] [place] Hemoglobin (Bld) [Mass/Vol] 13.4 g/dL Normal 11.5-15.5 [facility] Comment on above: Order Comment: Speci men Type: BLOOD SPECIMENOrdering Facility: [facility] Address: [address] [place] [address] Performed By: #### 5 7021-8 ####[facility]LI [id number] [place] [address] [place] Immature granulocytes (Bld) [#/Vol] 0.06 10*3/uL Normal <0.10 [facility] Comment on above: Order Comment: Speci men Type: BLOOD SPECIMENOrdering Facility: [facility] Address: [address] [place] [address] Performed By: #### 5 7021-8 ####[facility] [id number] [place] [address] [place] Immature granulocytes/100 WBC (Bld) 0.6 % Normal [facility] Comment on above: Order Comment: Speci men Type: BLOOD SPECIMENOrdering Facility: [facility] Address: [address] [place] [address] Performed By: #### 5 7021-8 ####[facility] [id number] [place] [address] [place] Lymphocytes (Bld) [#/Vol] 1.85 10*3/uL Normal 1.00-4.00 [facility] Comment on above: Order Comment: Speci men Type: BLOOD SPECIMENOrdering Facility: [facility] Address: [address] [place] [address] Performed By: #### 5 7021-8 ####[facility] [id number] [place] [address] [place] Lymphocytes/100 WBC (Bld) 18.1 % Normal [facility] Comment on above: Order Comment: Speci men Type: BLOOD SPECIMENOrdering Facility: [facility] Address: [address] [place] [address] Performed By: #### 5 7021-8 ####[facility]ITALNCLI [id number] [place] [address] [place] MCH (RBC) [Entitic mass] 26.8 pg Normal 26.0-34.0 [facility] Comment on above: Order Comment: Speci men Type: BLOOD SPECIMENOrdering Facility: [facility] Address: [address] [place] [address] Performed By: #### 5 7021-8 ####[facility]ITALNCLI [id number] [place] [address] [place] MCHC (RBC) [Mass/Vol] 33.7 g/dL Normal 30.5-36.0 [facility] Comment on above: Order Comment: Speci men Type: BLOOD SPECIMENOrdering Facility: [facility] Address: [address] [place] [address] Performed By: #### 5 7021-8 ####[facility] DEEJAYMandyNCLETICIA [id number] [place] [address] [place] MCV (RBC) [Entitic vol] 79.6 fL Low 80.0-100.0 [facility] Comment on above: Order Comment: Speci men Type: BLOOD SPECIMENOrdering Facility: [facility] Address: [address] [place] [address] Performed By: #### 5 7021-8 ####[facility]OSPITALNCAron [id number] [place] [address] [place] Monocytes (Bld) [#/Vol] 0.55 10*3/uL Normal <0.87 [facility] Comment on above: Order Comment: Speci men Type: BLOOD SPECIMENOrdering Facility: [facility] Address: [address] [place] [address] Performed By: #### 5 7021-8 ####[facility]ITALNCLIA [id number] [place] [address] [place] Monocytes/100 WBC (Bld) 5.4 % Normal [facility] Comment on above: Order Comment: Speci men Type: BLOOD SPECIMENOrdering Facility: [facility] Address: [address] [place] [address] Performed By: #### 5 7021-8 ####[facility]ITALNCLIA [id number] [place] [address] [place] Neutrophils (Bld) [#/Vol] 7.53 10*3/uL High 1.45-7.50 [facility] Comment on above: Order Comment: Speci men Type: BLOOD SPECIMENOrdering Facility: [facility] Address: [address] [place] [address] Performed By: #### 5 7021-8 ####[facility] CENTERWTINALIA [id number] [place] [address] [place] Neutrophils/100 WBC (Bld) 73.5 % Normal [facility] Comment on above: Order Comment: Speci men Type: BLOOD SPECIMENOrdering Facility: [facility] Address: [address] [place] [address] Performed By: #### 5 7021-8 ####[facility]LIA [id number] [place] [address] [place] Nucleated RBC (Bld) [#/Vol] 10*3/uL Normal <0.01 [facility] Comment on above: Order Comment: Speci men Type: BLOOD SPECIMENOrdering Facility: [facility] Address: [address] [place] [address] Performed By: #### 5 7021-8 ####[facility] [id number] [place] [address] [place] Nucleated RBC/100 WBC (Bld) [Ratio] 0.0 /100 WBC Normal [facility] Comment on above: Order Comment: Speci men Type: BLOOD SPECIMENOrdering Facility: [facility] Address: [address] [place] [address] Performed By: #### 5 7021-8 ####[facility]BUSLIA [id number] [place] [address] [place] Platelet mean volume (Bld) [Entitic vol] 10.0 fL Normal 9.0-12.7 [facility] Comment on above: Order Comment: Speci men Type: BLOOD SPECIMENOrdering Facility: [facility] Address: [address] [place] [address] Performed By: #### 5 7021-8 ####[facility]ITALNCCEN[facility] [id number] [place] [address] [place] Platelets (Bld) [#/Vol] 254 10*3/uL Normal 150-400 [facility] Comment on above: Order Comment: Speci men Type: BLOOD SPECIMENOrdering Facility: [facility] Address: [address] [place] [address] Performed By: #### 5 7021-8 ####[facility]OSPITALNCJOANA [id number] [place] [address] [place] RBC (Bld) [#/Vol] 5.00 10*6/uL Normal 3.90-5.20 [facility] Comment on above: Order Comment: Speci men Type: BLOOD SPECIMENOrdering Facility: [facility] Address: [address] [place] [address] Performed By: #### 5 7021-8 ####[facility] ERA [id number] [place] [address] [place] WBC (Bld) [#/Vol] 10.23 10*3/uL Normal 3.70-11.00 [facility] Comment on above: Order Comment: Speci men Type: BLOOD SPECIMENOrdering Facility: [facility] Address: [address] [place] [address] Performed By: #### 5 7021-8 ####[facility] COLUMBUSJOANA [id number] [place] [address] [place] Comprehensive metabolic 2000 panelon 10-12-2024 Albumin [Mass/Vol] 4.4 g/dL Normal 3.9-4.9 [facility] Comment on above: Order Comment: Speci men Type: BLOOD SPECIMEN [facility]ing Facility[facility] Address: [address] [place] [address] Performed By: #### 2 4323-8 #### [facility] CLIA [id number] [address] [place] [address] [place] ALP [Catalytic activity/Vol] 81 U/L Normal 34-123 [facility] Comment on above: Order Comment: Speci men Type: BLOOD SPECIMEN [facility]ing Facility: [facility] Address: [facility] [place] [address] Performed By: #### 2 4323-8 #### [facility] CLIA [id number] [address] [place] [address] [place] ALT [Catalytic activity/Vol] 34 U/L Normal 7-38 [facility] Comment on above: Order Comment: Speci men Type: BLOOD SPECIMEN [facility]ing Facility: [facility] Address: [address] [place] [address] Performed By: #### 2 4323-8 #### [facility] CLIA [id number] [address] [place] [address] [place] Anion gap [Moles/Vol] 16 mmol/L High 8-15 [facility] Comment on above: Order Comment: Speci men Type: BLOOD SPECIMEN [facility] Address: [address] [place] [address] Performed By: #### 2 4323-8 #### [facility] CLIA [id number] [address] [place] [address] [place] AST [Catalytic activity/Vol] 14 U/L Normal 13-35 [facility] Comment on above: Order Comment: Speci men Type: BLOOD SPECIMEN Ordering Facility: [facility] Address: [address] [place] [address] Performed By: #### 2 4323-8 #### [facility] CLIA [id number] [address] [place] [address] [place] Bilirubin [Mass/Vol] 0.5 mg/dL Normal 0.2-1.3 [facility] Comment on above: Order Comment: Speci men Type: BLOOD SPECIMEN [facility] Address: [address] [place] [address] Performed By: #### 2 4323-8 #### [facility] MILLW CLIA [id number] [address] [place] [address] [place] Calcium [Mass/Vol] 9.0 mg/dL Normal 8.5-10.2 [facility] Comment on above: Order Comment: Speci men Type: BLOOD SPECIMEN [facility]ing Facility[facility] Address: [address] [place] [address] Performed By: #### 2 4323-8 #### [facility] CLIA [id number] [address] [place] [address] [place] Chloride [Moles/Vol] 104 mmol/L Normal 98-107 [facility] Comment on above: Order Comment: Speci men Type: BLOOD SPECIMEN [facility]ing Facility[facility] Address: [address] [place] [address] Performed By: #### 2 4323-8 #### [facility] CLIA [id number] [address] [place] [address] [place] CO2 [Moles/Vol] 21 mmol/L Low 22-30 [facility] Comment on above: Order Comment: Speci men Type: BLOOD SPECIMEN [facility]ing Facility[facility] Address: [address] [place] [address] Performed By: #### 2 4323-8 #### [facility] CLIA [id number] [address] [place] [address] [place] Creatinine [Mass/Vol] 0.60 mg/dL Normal 0.58-0.96 [facility] Comment on above: Order Comment: Speci men Type: BLOOD SPECIMEN [facility] Address: [address] [place] [address] Performed By: #### 2 4323-8 #### [facility] CLIA [id number] [address] [place] [address] [place] eGFRcr SerPlBld CKD-EPI 2020 112 mL/min/1.73m??? Normal >=60 [facility] Comment on above: Order Comment: Kaitlin shafer Type: BLOOD SPECIMEN Ordering Facility: [facility] Address: [address] [place] [address] Result Comment: Antoinette mated Glomerular Filtration Rate (eGFR) is calculated using the 2020 CKD-EPI creatinine equation. This equation utilizes serum creatinine, sex, and age as parameters. The creatinine assay has traceable calibration to isotope dilution-mass spectrometry. Refer to KDIGO guidelines for clinical interpretation. In patients with unstable renal function, e.g. those with acute kidney injury, the eGFR may not accurately reflect actual GFR. Performed By: #### 2 4323-8 #### [facility]PITALIA [id number] [address] [place] [address] [place] Glucose [Mass/Vol] 116 mg/dL High 74-99 [facility] Comment on above: Order Comment: Kaitlin shafer Type: BLOOD SPECIMEN [facility]ing [facility]: [facility] Address: [address] [place] [address] Result Comment: The [place] [employer] (ADA) provides guidance for cutoff values for fasting glucose and random glucose. The ADA defines fasting as no caloric intake for at least 8 hours. Fasting plasma glucose results between 100 to 125 mg/dL indicate increased risk for diabetes (prediabetes). Fasting plasma glucose results greater than or equal to 126 mg/dL meet the criteria for diagnosis of diabetes. In the absence of unequivocal hyperglycemia, results should be confirmed by repeat testing. In a patient with classic symptoms of hyperglycemia or hyperglycemic crisis, random plasma glucose results greater than or equal to 200 mg/dL meet the criteria for diagnosis of diabetes. Reference: Standards of Medical Care in Diabetes 2016, [place] [employer]. Diabetes Care. 2016.39(Suppl 1). Performed By: #### 2 4323-8 #### [facility]PITALIA [id number] [address] [place] [address] [place] Potassium [Moles/Vol] 3.9 mmol/L Normal 3.7-5.1 [facility] Comment on above: Order Comment: Speci men Type: BLOOD SPECIMEN [facility]ing Facility[facility] Address: [address] [place] [id number] Performed By: #### 2 4323-8 #### [facility] CLIA [id number] [address] [place] [address] [place] Protein [Mass/Vol] 6.8 g/dL Normal 6.3-8.0 [facility] Comment on above: Order Comment: Speci men Type: BLOOD SPECIMEN [facility]ing Facility: [facility] Address: [address] [place] [address] Performed By: #### 2 4323-8 #### [facility] CLIA [id number] [address] [place] [address] [place] Sodium [Moles/Vol] 141 mmol/L Normal 136-144 [facility] Comment on above: Order Comment: Speci men Type: BLOOD SPECIMEN [facility]ing [facility] Address: [address] [place] [address] Performed By: #### 2 4323-8 #### [facility] CLIA [id number] [address] [place] [address] [place] Urea nitrogen [Mass/Vol] 10 mg/dL Normal 7-21 [facility] Comment on above: Order Comment: Speci men Type: BLOOD SPECIMEN [facility] Address: [address] [place] [address] Performed By: #### 2 4323-8 #### [facility] CLIA [id number] [address] [place] [address] [place] CNPChristina 09-28-2024 [place] Telephone (PATRICK) REMYLIBIA ([id number]) 1975 F Date Time Provider Department 09/28/24 FABIANO LIZ HEMMIRYAM During your visit today, we recorded the following information about you: Sona Carlos 09/28/2024 3:45 PM Signed Patient called stating she contacted [facility] to fill prescription Scemblix. She was informed that is not available. They do not know when they would get it in. Patient has 2 days left of medication. She states if we contact [facility] they will be able to transfer the prescription to another location. Patient says that will save her some money. Please advise patient. Alisha Romero LPN 09/28/2024 4:06 PM Signed I reached out to [facility] and to the patient. Transfers are pharmacy to pharmacy, therefore, [facility] will need to reach out to [facility] to initiate the transfer of the Rx. I contacted [facility] and a message will be given to the pharmacist to contact [facility] to transfer the Rx. Dr. Liz is currently out of the office. WILIAN Mei Melissa 09/30/2024 10:55 AM Signed Patient calling on status of medication. She states she has 1 left. Please advise. Alisha Romero LPN 09/30/2024 11:02 AM Signed Patient is aware that [facility] will contact her today to schedule delivery. Alisha Romero LPN Allergies As of Date: 09/28/2024 Noted Allergy Reaction IV DYE (IODINATED CONTRAST MEDIA) 07/25/2022 4 - Hives 7 - Swelling NUBAIN (NALBUPHINE HCL) 05/23/2015 11 - Vomiting Date Reviewed: 07/01/2024 Reviewed by: Fabiano Liz DO - Fully Assessed Reason for Visit: Medication Problem [65] Prescriptions as of 09/30/2024 - asciminib (SCEMBLIX) 40 mg tablet Take 2 tablets (80 mg) by mouth once daily on an empty stomach, 1 hour before or 2 hours after eating - pantoprazole DR (PROTONIX) 40 mg tablet Take 1 tablet by mouth once daily. - asciminib (SCEMBLIX) 40 mg tablet Take 2 tablets (80 mg) by mouth once daily on an empty stomach, 1 hour before or 2 hours after eating - allopurinol (ZYLOPRIM) 300 mg tablet Take 1 tablet by mouth once daily. - potassium chloride (K-TAB) 10 mEq tablet Take 2 tablets by mouth once daily. - ondansetron (ZOFRAN) 8 mg tablet Take 1 tablet by mouth every 8 hours as needed (For chemotherapy induced nausea and vomiting). - acetaminophen (TYLENOL) 325 mg tablet Take 325 mg by mouth every 6 hours as needed. - Ibuprofen 200 mg cap Take 1 capsule by mouth every 6 hours as needed. - furosemide (LASIX) 20 mg tablet Take 1 tablet by mouth once daily. - levothyroxine (SYNTHROID) 125 mcg tablet Take 125 mcg by mouth once daily. Problem List As Of Date 09/28/2024 Noted Resolved Other Specified Disorder of Gallbladder [K82.8] 09/07/2009 Sebaceous cyst [L72.3] 05/23/2015 Melanocytic nevi of scalp and neck [D22.4] 05/23/2015 Intradermal nevus [D23.9] 06/14/2015 Encounter Status:Closed by ALISHA ROMERO on 09/29/24 Normal [facility] Orthopedic Visit Reporton Orthopedic Visit Report [facility] [address] [place] [address] OFFICE VISIT Date of Service: 08/20/24 MR#: [id number] Acct: [id number] Name: LIBIA OLIVAS FRIDA Rep #: [id number] : 1975 Provider: Dr. Dallas Rojas MD Age/Sex: 49/F Location: [facility] Status: Signed Intake Vital Signs 02/24/24 09:07 08/20/24 08:06 Height 5 ft 5 in 5 ft 5 in Weight: 234 lb BMI 38.9 Intake Visit Reasons: LUMBAR SPINE Accompanied by: Self Is patient in pain?: Yes Pain scale (1-10): 2 Allergies Iodinated Contrast Media Allergy (Verified 08/20/24 08:07) Hives nalbuphine HCl (From Nubain) Adverse Reaction (Verified 08/20/24 08:07) Vomiting Medications ???Medication ???Instructions ???Recorded ???Confirmed ???Type levothyroxine 125 mcg capsule 125 mcg PO DAILY #90 caps 04/13/19 08/20/24 Rx (Tirosint) allopurinol 300 mg tablet 300 mg PO DAILY 02/19/23 08/20/24 History furosemide 20 mg tablet 20 mg PO Q OTHER DAY PRN edema 08/20/24 History ondansetron HCl 8 mg tablet 8 mg PO Q8H PRN nausea and vomitin g 09/16/23 08/20/24 History potassium chloride 10 mEq 20 meq PO BID 02/24/24 08/20/24 Hi story tablet,extended release (Klor-Con) 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 GERD (gastroesophageal reflux disease) Anemia Surgical History History of bone marrow biopsy H/O tubal ligation ( 2005) delivery delivered H/O: hysterectomy History of cholecystectomy Family History Father CAD (coronary artery disease) Diabetes Other Hypertension Myocardial infarction Thyroid disorder Social History (Updated 02/24/24 @ 09:11 by Mee Irizaryr) household members: spouse current occupational status: employed Smoking Status: Never smoker alcohol intake: current alcohol intake frequency: holidays/special occasions only details: social substance use type: does not use caffeine: Yes what type of physical activity do you participate in: walking and weight training seatbelt use: always do you feel safe at home: Yes additional 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: - [facility] ER NURSE HPI LUMBAR SPINE Details: This documentation accurately reflects the service provided and the decisions made by me, Dr. Dallas Rojas MD 08/20/24 7951. Part of today???s visit was documented by [ ], acting as scribe. LIBIA OLIVAS is a 49 year old F here today for lumbar spine pain. Patient notes that she has had pain for about 21 years after having her daughter. She had a blood patch completed and as soon as the needle was inserted she had a right leg pain. 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 She was diagnosed 2 years ago and has been doing the chemo since. Patient notes that her pain is over her right sided low back and into her right leg. The pain goes into her right foot. Patient is unable to lay on her right side or lay flat due to pain. 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 She denies any physical therapy. She was put on a short dose of prednisone which was helpful while she was taking. She takes 2 tylenol and 4 ibuprofen which is helpful, which her oncologist does not like her taking. She denies any injections. She had xrays or MRI. When she does have an episode she can take the Tylenol and Ibuprofen and it will go away in a couple days. This episode it has been ongoing for at least 2 months. She was prescribed a taper dose of prednisone. Non-diabetic, not currently taking blood thinners, denies balance issues, denies numbness in the feet, no history of strokes. Ortho Exam General General: Yes no acute distress and Yes well groomed Neurologic: Yes alert and Yes oriented x3 Psychologic: Yes reasonable and appropriate Spine SPINE TESTING CERVICAL THORACIC LUMBAR Musculoskeletal Strength 0=absent - 5=normal Details: Examination of the back shows midline right paraspinal tenderness to lower lumbar spine. Neurologic valuation of lower extremity shows 5 out of 5 power lower extremities normal sensations in all dermatomes. Right s (more content not included)... Normal [facility] Magnetic resonance imaging r eportOrdered By: Lalit Romero on 08-11-2024 Study report [facility] Imaging Services [address] [place], [place] [address] Spine Lumbar (Routine) MR#: [id number] Acct: [id number] Name: LIBIA OLIVAS FRIDA Rep #: [id number] : 1975 F 49 From: Lupe Romero MD PCP: Dr. Krystina Calle, DO Status: REG CLI Study:Spine Lumbar (Routine) Date of Exam: 08/10/24 Exam# [id number] Ordering Dr: Avelino READ PROCEDURE: SPINE LUMBAR (ROUTINE) 08/10/2024 REASON FOR EXAM: PAIN TECHNIQUE: Multiplanar and multisequence images were obtained without IV contrast administration. COMPARISON: July 14, 2024 x-ray, December 29, 2021 MRI FINDINGS: There is grade 1 retrolisthesis at L5-S1, 0.6 cm. The vertebral body height is maintained. Vertebral body marrow signal is normal. Intervertebral disc signal shows desiccation from L3-S1. Normal appearing facets are noted. The L1-L2 level: There is no significant disk protrusion. There is no lateral recess stenosis or foraminal stenosis. There is no critical central canal stenosis. The L2-L3 level: There is no significant disk protrusion. There is no lateral recess stenosis or foraminal stenosis. There is no critical central canal stenosis. The L3-L4 level: There is disc extrusion which extends into the right lateral recess and into the right neural foramen, attached at the margin, measuring 0.3 by 0.9 by 1.5 cm. There is moderate right lateral recess effacement. There is moderate right foraminal narrowing secondary to disc protrusion and facet hypertrophy. There is no central canal stenosis. The L4-L5 level: There is mild central and moderate right and left paracentral disc protrusion. There is mild bilateral lateral recess effacement. There is mild bilateral foraminal narrowing secondary to disc protrusion and facet hypertrophy. There is mild central canal stenosis. The L5-S1 level: There is disc extrusion which extends beyond the S1 endplate, attached at the margin, measuring 0.6 by 1.0 by 1.0 cm. There is severe right and moderate left lateral recess effacement. There is mild right and moderate left foraminal narrowing secondary to disc protrusion and facet hypertrophy. There is moderatecentral canal stenosis. The visualized conus shows normal signal characteristics. Adjacent soft tissuesare unremarkable. MRI/Spine Lumbar (Routine) IMPRESSION: There is grade 1 retrolisthesis at L5-S1, 0.6 cm. There is disc extrusion at L3-4 and L5-S1. There is mild central canal stenosis at L4-5, moderate central canal stenosis atL5-S1, with lateral recess and foraminal narrowing. There is no significant interval change. Reading Location: [place] CC: ESHA READ; Dr. Krystina Calle DO ~ Dye Box Operator: Signed [facility] Spine Lumbar (Routine)on Spine Lumbar (Routine) [facility] Imaging Services [address] [place] [address] Spine Lumbar (Routine) MR#: [id number] Acct: [id number] Name: LIBIA OLIVAS FRIDA Rep #: [id number] : 1975 F 49 From: Lalit Romero MD PCP: Dr. Krystina Calle DO Status: REG CLI Study: Spine Lumbar (Routine) Date of Exam: 08/10/24 Exam# [id number] Ordering Dr: ESHA READ PROCEDURE: SPINE LUMBAR (ROUTINE) 08/10/2024 REASON FOR EXAM: PAIN TECHNIQUE: Multiplanar and multisequence images were obtained without IV contrast administration. COMPARISON: July 14, 2024 x-ray, December 29, 2021 MRI FINDINGS: There is grade 1 retrolisthesis at L5-S1, 0.6 cm. The vertebral body height is maintained. Vertebral body marrow signal is normal. Intervertebral disc signal shows desiccation from L3-S1. Normal appearing facets are noted. The L1-L2 level: There is no significant disk protrusion. There is no lateral recess stenosis or foraminal stenosis. There is no critical central canal stenosis. The L2-L3 level: There is no significant disk protrusion. There is no lateral recess stenosis or foraminal stenosis. There is no critical central canal stenosis. The L3-L4 level: There is disc extrusion which extends into the right lateral recess and into the right neural foramen, attached at the margin, measuring 0.3 by 0.9 by 1.5 cm. There is moderate right lateral recess effacement. There is moderate right foraminal narrowing secondary to disc protrusion and facet hypertrophy. There is no central canal stenosis. The L4-L5 level: There is mild central and moderate right and left paracentral disc protrusion. There is mild bilateral lateral recess effacement. There is mild bilateral foraminal narrowing secondary to disc protrusion and facet hypertrophy. There is mild central canal stenosis. The L5-S1 level: There is disc extrusion which extends beyond the S1 endplate, attached at the margin, measuring 0.6 by 1.0 by 1.0 cm. There is severe right and moderate left lateral recess effacement. There is mild right and moderate left foraminal narrowing secondary to disc protrusion and facet hypertrophy. There is moderate central canal stenosis. The visualized conus shows normal signal characteristics. Adjacent soft tissues are unremarkable. MRI/Spine Lumbar (Routine) IMPRESSION: There is grade 1 retrolisthesis at L5-S1, 0.6 cm. There is disc extrusion at L3-4 and L5-S1. There is mild central canal stenosis at L4-5, moderate central canal stenosis at L5-S1, with lateral recess and foraminal narrowing. There is no significant interval change. Reading Location: [place] CC: ESHA READ; Dr. Krystina Calle DO Dye Box Operator: Signed Normal [facility] CBC W Auto Differential pane l (Bld)on 07-29-2024 Basophils (Bld) [#/Vol] 0.07 10*3/uL Normal <0.11 [facility] Comment on above: Order Comment: Speci men Type: BLOOD SPECIMEN Ordering Facility: [facility] Address: [address] [place] [address] Performed By: #### 2 4323-8 #### [facility] CLIA [id number] [address] [place] [address] [place] Basophils/100 WBC (Bld) 0.7 % Normal [facility] Comment on above: Order Comment: Speci men Type: BLOOD SPECIMEN Ordering Facility: [facility] Address: [address] [place] [address] Performed By: #### 2 4323-8 #### [facility] CLIA [id number] [address] [place] [address] [place] Differential cell count method Nom (Bld) Auto Normal [facility] Comment on above: Order Comment: Speci men Type: BLOOD SPECIMEN Ordering Facility: [facility] Address: [address] [place] [address] Performed By: #### 2 4323-8 #### [facility] CLIA [id number] [address] [place] [address] [place] Eosinophils (Bld) [#/Vol] 0.22 10*3/uL Normal <0.46 [facility] Comment on above: Order Comment: Speci men Type: BLOOD SPECIMEN Ordering Facility: [facility] Address: [address] [place] [address] Performed By: #### 2 4323-8 #### [facility] CLIA [id number] [address] [place] [address] [place] Eosinophils/100 WBC (Bld) 2.4 % Normal [facility] Comment on above: Order Comment: Speci men Type: BLOOD SPECIMEN Ordering Facility: [facility] Address: [address] [place] [address] Performed By: #### 2 4323-8 #### [facility] CLIA [id number] [address] [place] [address] [place] Erythrocyte distribution width (RBC) [Ratio] 13.2 % Normal 11.5-15.0 [facility] Comment on above: Order Comment: Speci men Type: BLOOD SPECIMEN Ordering Facility: [facility] Address: [address] [place] [address] Performed By: #### 2 4323-8 #### [facility] CLIA [id number] [address] [place] [address] [place] Hematocrit (Bld) [Volume fraction] 39.1 % Normal 36.0-46.0 [facility] Comment on above: Order Comment: Speci men Type: BLOOD SPECIMEN Ordering Facility: [facility] Address: [address] [place] [address] Performed By: #### 2 4323-8 #### [facility] CLIA [id number] [address] [place] [address] [place] Hemoglobin (Bld) [Mass/Vol] 13.0 g/dL Normal 11.5-15.5 [facility] Comment on above: Order Comment: Speci men Type: BLOOD SPECIMEN Ordering Facility: [facility] Address: [address] [place] [address] Performed By: #### 2 4323-8 #### [facility] CLIA [id number] [address] [place] [address] [place] Immature granulocytes (Bld) [#/Vol] 0.06 10*3/uL Normal <0.10 [facility] Comment on above: Order Comment: Speci men Type: BLOOD SPECIMEN Ordering Facility: [facility] Address: [address] [place] [address] Performed By: #### 2 4323-8 #### [facility] CLIA [id number] [address] [place] [address] [place] Immature granulocytes/100 WBC (Bld) 0.6 % Normal [facility] Comment on above: Order Comment: Speci men Type: BLOOD SPECIMEN Ordering Facility: [facility] Address: [address] [place] [address] Performed By: #### 2 4323-8 #### [facility] CLIA [id number] [address] [place] [address] [place] Lymphocytes (Bld) [#/Vol] 1.48 10*3/uL Normal 1.00-4.00 [facility] Comment on above: Order Comment: Speci men Type: BLOOD SPECIMEN Ordering Facility: [facility] Address: [address] [place] [address] Performed By: #### 2 4323-8 #### [facility] CLIA [id number] [address] [place] [address] [place] Lymphocytes/100 WBC (Bld) 15.8 % Normal [facility] Comment on above: Order Comment: Speci men Type: BLOOD SPECIMEN Ordering Facility: [facility] Address: [address] [place] [address] Performed By: #### 2 4323-8 #### [facility] CLIA [id number] [address] [place] [address] [place] MCH (RBC) [Entitic mass] 27.0 pg Normal 26.0-34.0 [facility] Comment on above: Order Comment: Speci men Type: BLOOD SPECIMEN Ordering Facility: [facility] Address: [address] [place] [address] Performed By: #### 2 4323-8 #### [facility] CLIA [id number] [address] [place] [address] [place] MCHC (RBC) [Mass/Vol] 33.2 g/dL Normal 30.5-36.0 [facility] Comment on above: Order Comment: Speci men Type: BLOOD SPECIMEN Ordering Facility: [facility] Address: [address] [place] [address] Performed By: #### 2 4323-8 #### [facility] CLIA [id number] [address] [place] [address] [place] MCV (RBC) [Entitic vol] 81.3 fL Normal 80.0-100.0 [facility] Comment on above: Order Comment: Speci men Type: BLOOD SPECIMEN Ordering Facility: [facility] Address: [address] [place] [address] Performed By: #### 2 4323-8 #### [facility] CLIA [id number] [address] [place] [address] [place] Monocytes (Bld) [#/Vol] 0.67 10*3/uL Normal <0.87 [facility] Comment on above: Order Comment: Speci men Type: BLOOD SPECIMEN Ordering Facility: [facility] Address: [address] [place] [address] Performed By: #### 2 4323-8 #### [facility] CLIA [id number] [address] [place] [address] [place] Monocytes/100 WBC (Bld) 7.2 % Normal [facility] Comment on above: Order Comment: Speci men Type: BLOOD SPECIMEN Ordering Facility: [facility] Address: [address] [place] [address] Performed By: #### 2 4323-8 #### [facility] CLIA [id number] [address] [place] [address] [place] Neutrophils (Bld) [#/Vol] 6.84 10*3/uL Normal 1.45-7.50 [facility] Comment on above: Order Comment: Speci men Type: BLOOD SPECIMEN Ordering Facility: [facility] Address: [address] [place] [address] Performed By: #### 2 4323-8 #### [facility] CLIA [id number] [address] [place] [address] [place] Neutrophils/100 WBC (Bld) 73.3 % Normal [facility] Comment on above: Order Comment: Speci men Type: BLOOD SPECIMEN Ordering Facility: [facility] Address: [address] [place] [address] Performed By: #### 2 4323-8 #### [facility] CLIA [id number] [address] [place] [address] [place] Nucleated RBC (Bld) [#/Vol] 10*3/uL Normal <0.01 [facility] Comment on above: Order Comment: Speci men Type: BLOOD SPECIMEN Ordering Facility: [facility] Address: [address] [place] [address] Performed By: #### 2 4323-8 #### [facility] CLIA [id number] [address] [place] [address] [place] Nucleated RBC/100 WBC (Bld) [Ratio] 0.0 /100 WBC Normal [facility] Comment on above: Order Comment: Speci men Type: BLOOD SPECIMEN Ordering Facility: [facility] Address: [address] [place] [address] Performed By: #### 2 4323-8 #### [facility] CLIA [id number] [address] [place] [address] [place] Platelet mean volume (Bld) [Entitic vol] 9.5 fL Normal 9.0-12.7 [facility] Comment on above: Order Comment: Speci men Type: BLOOD SPECIMEN Ordering Facility: [facility] Address: [address] [place] [address] Performed By: #### 2 4323-8 #### [facility] CLIA [id number] [address] [place] [address] [place] Platelets (Bld) [#/Vol] 227 10*3/uL Normal 150-400 [facility] Comment on above: Order Comment: Speci men Type: BLOOD SPECIMEN Ordering Facility: [facility] Address: [address] [place] [address] Performed By: #### 2 4323-8 #### [facility] CLIA [id number] [address] [place] [address] [place] RBC (Bld) [#/Vol] 4.81 10*6/uL Normal 3.90-5.20 [facility] Comment on above: Order Comment: Speci men Type: BLOOD SPECIMEN Ordering Facility: [facility] Address: [address] [place] [address] Performed By: #### 2 4323-8 #### [facility] CLIA [id number] [address] [place] [address] [place] WBC (Bld) [#/Vol] 9.34 10*3/uL Normal 3.70-11.00 [facility] Comment on above: Order Comment: Speci men Type: BLOOD SPECIMEN Ordering Facility: [facility] Address: [address] [place] [address] Performed By: #### 2 4323-8 #### [facility] CLIA [id number] [address] [place] [address] [place] Comprehensive metabolic 2000 panelon 07-29-2024 Albumin [Mass/Vol] 4.1 g/dL Normal 3.9-4.9 [facility] Comment on above: Order Comment: Speci men Type: BLOOD SPECIMENOrdering Facility: [facility] Address: [address] [place] [address] Performed By: #### 2 4323-8 ####[facility] [id number] [place] [address] [place] ALP [Catalytic activity/Vol] 71 U/L Normal 34-123 [facility] Comment on above: Order Comment: Speci men Type: BLOOD SPECIMENOrdering Facility: [facility] Address: [address] [place] [address] Performed By: #### 2 4323-8 ####[facility] [id number] [address] [place] ALT [Catalytic activity/Vol] 22 U/L Normal 7-38 [facility] Comment on above: Order Comment: Speci men Type: BLOOD SPECIMENOrdering Facility: [facility] Address: [address] [place] [address] Performed By: #### 2 4323-8 ####[facility] [id number] [place] [address] [place] Anion gap [Moles/Vol] 7 mmol/L Low 8-15 [facility] Comment on above: Order Comment: Speci men Type: BLOOD SPECIMENOrdering Facility: [facility] Address: [address] [place] [address] Performed By: #### 2 4323-8 ####[facility] MILL[facility]OWNCL[facility] [id number] [place] [address] [place] AST [Catalytic activity/Vol] 10 U/L Low 13-35 [facility] Comment on above: Order Comment: Speci men Type: BLOOD SPECIMENOrdering Facility: [facility] Address: [address] [place] [address] Performed By: #### 2 4323-8 ####[facility] MILL[facility]OWNCLIA [id number] [place] [address] [place] Bilirubin [Mass/Vol] 0.4 mg/dL Normal 0.2-1.3 [facility] Comment on above: Order Comment: Speci men Type: BLOOD SPECIMENOrdering Facility: [facility] Address: [address] [place] [address] Performed By: #### 2 4323-8 ####[facility]ENTERWNCLIA [id number] [place] [address] [place] Calcium [Mass/Vol] 8.9 mg/dL Normal 8.5-10.2 [facility] Comment on above: Order Comment: Speci men Type: BLOOD SPECIMENOrdering Facility: [facility] Address: [address] [place] [address] Performed By: #### 2 4323-8 ####[facility]ENTERWNCLIA [id number] [place] [address] [place] Chloride [Moles/Vol] 107 mmol/L Normal 98-107 [facility] Comment on above: Order Comment: Speci men Type: BLOOD SPECIMENOrdering Facility: [facility] Address: [address] [place] [address] Performed By: #### 2 4323-8 ####[facility] [facility] [id number] [place] [address] [place] CO2 [Moles/Vol] 26 mmol/L Normal 22-30 [facility] Comment on above: Order Comment: Speci men Type: BLOOD SPECIMENOrdering Facility: [facility] Address: [address] [place] [address] Performed By: #### 2 4323-8 ####[facility] [id number] [place] [address] [place] Creatinine [Mass/Vol] 0.65 mg/dL Normal 0.58-0.96 [facility] Comment on above: Order Comment: Speci men Type: BLOOD SPECIMENOrdering Facility: [facility] Address: [address] [place] [address] Performed By: #### 2 4323-8 ####[facility] [id number] [place] [address] [place] Creatinine and Glomerular filtration rate.predicted panel (S/P/Bld) 109 mL/min/1.73m??? Normal >=60 [facility] Comment on above: Order Comment: Speci men Type: BLOOD SPECIMENOrdering Facility: [facility] Address: [address] [place] [address] Result Comment: Antoinette mated Glomerular Filtration Rate (eGFR) is calculated using the 2020 CKD-EPI creatinine equation. This equation utilizes serum creatinine, sex, and age as parameters. The creatinine assay has traceable calibration to isotope dilution-mass spectrometry. Refer to KDIGO guidelines for clinical interpretation. In patients with unstable renal function, e.g. those with acute kidney injury, the eGFR may not accurately reflect actual GFR. Performed By: #### 2 4323-8 ####[facility] [id number] [place] [address] [place] Glucose [Mass/Vol] 130 mg/dL High 74-99 [facility] Comment on above: Order Comment: Speci men Type: BLOOD SPECIMENOrdering Facility: [facility] Address: [address] [place] [address] Result Comment: The [place] Diabetes Association (ADA) provides guidance for cutoff values for fasting glucose and random glucose. The ADA defines fasting as no caloric intake for at least 8 hours. Fasting plasma glucose results between 100 to 125 mg/dL indicate increased risk for diabetes (prediabetes). Fasting plasma glucose results greater than or equal to 126 mg/dL meet the criteria for diagnosis of diabetes. In the absence of unequivocal hyperglycemia, results should be confirmed by repeat testing. In a patient with classic symptoms of hyperglycemia or hyperglycemic crisis, random plasma glucose results greater than or equal to 200 mg/dL meet the criteria for diagnosis of diabetes. Reference: Standards of Medical Care in Diabetes 2016, [place] [employer] Association. Diabetes Care. 2016.39(Suppl 1). Performed By: #### 2 4323-8 ####[facility] [id number] [place] [address] [place] Potassium [Moles/Vol] 4.1 mmol/L Normal 3.7-5.1 [facility] Comment on above: Order Comment: Speci men Type: BLOOD SPECIMENOrdering Facility: [facility] Address: [address] [place] [address] Performed By: #### 2 4323-8 ####[facility] [id number] [place] [address] [place] Protein [Mass/Vol] 6.4 g/dL Normal 6.3-8.0 [facility] Comment on above: Order Comment: Speci men Type: BLOOD SPECIMENOrdering Facility: [facility] Address: [address] [place] [address] Performed By: #### 2 4323-8 ####[facility] [id number] [place] [address] [place] Sodium [Moles/Vol] 140 mmol/L Normal 136-144 [facility] Comment on above: Order Comment: Speci men Type: BLOOD SPECIMENOrdering Facility: [facility] Address: [address] [place] [address] Performed By: #### 2 4323-8 ####[facility] [id number] [place] [address] [place] Urea nitrogen [Mass/Vol] 10 mg/dL Normal 7-21 [facility] Comment on above: Order Comment: Speci men Type: BLOOD SPECIMENOrdering Facility: [facility] Address: [address] [place] [address] Performed By: #### 2 4323-8 ####[facility] [id number] [place] [address] [place] L/S Spine Bending Flex/Viola 07-14-2024 L/S Spine Bending Flex/Ext [facility] [address] [place] [address] L/S Spine Bending Flex/Ext MR#: [id number] Acct: [id number] Name: LIBIA OLIVAS FRIDA Rep #: [id number] : 1975 F 49 From: Chau aMrtinez MD PCP: Dr. Krystina Calle DO Status: REG CLI Study: L/S Spine Bending Flex/Ext Date of Exam: 07/14 Exam# [id number] Ordering Dr: Mireya Cortez PROCEDURE: L/S SPINE BENDING FLEX/EXT 07/14/2024 REASON FOR EXAM: PAIN TECHNIQUE: 2 view of the lumbar spine FINDINGS: Vertebrae: No fracture. Discs: Mild multilevel disc space narrowing. Alignment: 5 mm of retrolisthesis of L5 on S1. This is unchanged on the flexion and extension views. Other: RAD/L/S Spine Bending Flex/Ext IMPRESSION: 5 mm of retrolisthesis of L5 on S1 unchanged on the flexion and extension views. Reading Location: TPL-[id number]-ES CC: AZEB Love; Dr. Krystina Calle DO Dye Box Operator: Signed Normal [facility] CBC W Auto Differential pane l (Bld)on 07-01-2024 Basophils (Bld) [#/Vol] 0.05 10*3/uL Normal <0.11 [facility] Comment on above: Order Comment: Speci men Type: BLOOD SPECIMEN [facility] Address: [facility] [place] [address] Performed By: #### 5 7021-8 #### [facility] CLIA [id number] [address] [place] [address] [place] Basophils/100 WBC (Bld) 0.9 % Normal [facility] Comment on above: Order Comment: Speci men Type: BLOOD SPECIMEN [facility] Address: [address] [place] [address] Performed By: #### 5 7021-8 #### [facility] CLIA [id number] [address] [place] [address] [place] Differential cell count method Nom (Bld) Auto Normal [facility] Comment on above: Order Comment: Speci men Type: BLOOD SPECIMEN [facility] Address: [address] [place] [address] Performed By: #### 5 7021-8 #### [facility] CLIA [id number] [address] [place] [address] [place] Eosinophils (Bld) [#/Vol] 0.18 10*3/uL Normal <0.46 [facility] Comment on above: Order Comment: Speci men Type: BLOOD SPECIMEN [facility] Address: [address] [place] [address] Performed By: #### 5 7021-8 #### [facility] CLIA [id number] [address] [place] [address] [place] Eosinophils/100 WBC (Bld) 3.2 % Normal [facility] Comment on above: Order Comment: Speci men Type: BLOOD SPECIMEN [facility] Address: [address] [place] [address] Performed By: #### 5 7021-8 #### [facility] CLIA [id number] [address] [place] [address] [place] Erythrocyte distribution width (RBC) [Ratio] 12.8 % Normal 11.5-15.0 [facility] Comment on above: Order Comment: Speci men Type: BLOOD SPECIMEN [facility] Address: [address] [place] [address] Performed By: #### 5 7021-8 #### [facility] CLIA [id number] [address] [place] [address] [place] Hematocrit (Bld) [Volume fraction] 39.1 % Normal 36.0-46.0 [facility] Comment on above: Order Comment: Speci men Type: BLOOD SPECIMEN [facility] Address: [address] [place] [address] Performed By: #### 5 7021-8 #### [facility] [id number] [address] [place] [address] [place] Hemoglobin (Bld) [Mass/Vol] 13.2 g/dL Normal 11.5-15.5 [facility] Comment on above: Order Comment: Speci men Type: BLOOD SPECIMEN [facility] Address: [address] [place] [address] Performed By: #### 5 7021-8 #### [facility] CLIA [id number] [address] [place] [address] [place] Immature granulocytes (Bld) [#/Vol] 0.03 10*3/uL Normal <0.10 [facility] Comment on above: Order Comment: Speci men Type: BLOOD SPECIMEN [facility] Address: [address] [place] [address] Performed By: #### 5 7021-8 #### [facility] [id number] [address] [place] [address] [place] Immature granulocytes/100 WBC (Bld) 0.5 % Normal [facility] Comment on above: Order Comment: Speci men Type: BLOOD SPECIMEN [facility] Address: [address] [place] [address] Performed By: #### 5 7021-8 #### [facility] CLIA [id number] [address] [place] [address] [place] Lymphocytes (Bld) [#/Vol] 1.25 10*3/uL Normal 1.00-4.00 [facility] Comment on above: Order Comment: Speci men Type: BLOOD SPECIMEN [facility] Address: [address] [place], [place] [address] Performed By: #### 5 7021-8 #### [facility] [id number] [address] [place] [address] [place] Lymphocytes/100 WBC (Bld) 22.2 % Normal [facility] Comment on above: Order Comment: Speci men Type: BLOOD SPECIMEN [facility] Address: [address] [place] [address] Performed By: #### 5 7021-8 #### [facility] CLIA [id number] [address] [place] [address] [place] MCH (RBC) [Entitic mass] 27.3 pg Normal 26.0-34.0 [facility] Comment on above: Order Comment: Speci men Type: BLOOD SPECIMEN [facility] Address: [address] [place] [address] Performed By: #### 5 7021-8 #### [facility] [id number] [address] [place] [address] [place] MCHC (RBC) [Mass/Vol] 33.8 g/dL Normal 30.5-36.0 [facility] Comment on above: Order Comment: Speci men Type: BLOOD SPECIMEN [facility] Address: [address] [place] [address] Performed By: #### 5 7021-8 #### [facility] CLIA [id number] [address] [place] [address] [place] MCV (RBC) [Entitic vol] 81.0 fL Normal 80.0-100.0 [facility] Comment on above: Order Comment: Speci men Type: BLOOD SPECIMEN [facility] Address: [address] [place] [address] Performed By: #### 5 7021-8 #### [facility] CLIA [id number] [address] [place] [address] [place] Monocytes (Bld) [#/Vol] 0.48 10*3/uL Normal <0.87 [facility] Comment on above: Order Comment: Speci men Type: BLOOD SPECIMEN [facility] Address: [address] [place] [address] Performed By: #### 5 7021-8 #### [facility] CLIA [id number] [address] [place] [address] [place] Monocytes/100 WBC (Bld) 8.5 % Normal [facility] Comment on above: Order Comment: Speci men Type: BLOOD SPECIMEN [facility] Address: [address] [place] [address] Performed By: #### 5 7021-8 #### [facility] CLIA [id number] [address] [place] [address] [place] Neutrophils (Bld) [#/Vol] 3.65 10*3/uL Normal 1.45-7.50 [facility] Comment on above: Order Comment: Speci men Type: BLOOD SPECIMEN [facility] Address: [address] [place] [address] Performed By: #### 5 7021-8 #### [facility] CLIA [id number] [address] [place] [address] [place] Neutrophils/100 WBC (Bld) 64.7 % Normal [facility] Comment on above: Order Comment: Speci men Type: BLOOD SPECIMEN [facility] Address: [address] [place] [address] Performed By: #### 5 7021-8 #### [facility] CLIA [id number] [address] [place] [address] [place] Nucleated RBC (Bld) [#/Vol] 10*3/uL Normal <0.01 [facility] Comment on above: Order Comment: Speci men Type: BLOOD SPECIMEN [facility] Address: [address] [place] [address] Performed By: #### 5 7021-8 #### [facility] CLIA [id number] [address] [place] [address] [place] Nucleated RBC/100 WBC (Bld) [Ratio] 0.0 /100 WBC Normal [facility] Comment on above: Order Comment: Speci men Type: BLOOD SPECIMEN [facility] Address: [address] [place] [address] Performed By: #### 5 7021-8 #### [facility] CLIA [id number] [address] [place] [address] [place] Platelet mean volume (Bld) [Entitic vol] 10.1 fL Normal 9.0-12.7 [facility] Comment on above: Order Comment: Speci men Type: BLOOD SPECIMEN [facility] Address: [address] [place] [address] Performed By: #### 5 7021-8 #### [facility] CLIA [id number] [address] [place] [address] [place] Platelets (Bld) [#/Vol] 209 10*3/uL Normal 150-400 [facility] Comment on above: Order Comment: Speci men Type: BLOOD SPECIMEN [facility] Address: [address] [place] [address] Performed By: #### 5 7021-8 #### [facility] CLIA [id number] [address] [place] [address] [place] RBC (Bld) [#/Vol] 4.83 10*6/uL Normal 3.90-5.20 [facility] Comment on above: Order Comment: Speci men Type: BLOOD SPECIMEN [facility] Address: [address] [place] [address] Performed By: #### 5 7021-8 #### [facility] CLIA [id number] [address] [place] [address] [place] WBC (Bld) [#/Vol] 5.64 10*3/uL Normal 3.70-11.00 [facility] Comment on above: Order Comment: Speci men Type: BLOOD SPECIMEN [facility] Address: [address] [place] [address] Performed By: #### 5 7021-8 #### [facility] CLIA [id number] [address] [place] [address] [place] CNOVSPon 07-01-2024 CNOVSP Visit (SP) Office (H EMAWS) LIBIA OLIVAS ([id number]) 1975 F Date Time Provider Department 07/01/24 11:10 AM FABIANO LIZ During your visit today, we recorded the following information about you: Temperature Pulse Blood pressure Weight 98.7 degrees 73/minute 155/82 104.6 kg Fabiano Liz DO 07/01/2024 11:54 AM Signed Diagnosis: 1) Chronic phase CML. HPI: The patient is a 49-year-old female with past medical history significant for hypothyroidism, sleep apnea (CPAP) and obesity. Was in [place]. On return had found to have elevated triglycerides when had labs done by Dr. Mckeon as part of screening labs for weight loss medications. Had recheck of triglycerides (and a CBC since hadn't had in a year) at [facility] and incidental leukocytosis with WBC count 135.68K. Hgb and platelets normal. Recheck at [facility] 07/21/2022 revealed total white count 131.8 thousand. Hemoglobin 12.3 g/dL. Platelet count 211,000. Absolute neutrophil count 90,000. Absolute lymphocyte count 8000. 15% bands, 2% monocytes, 3% eosinophils, 6% metamyelocytes, 5% myelocytes, 3% promyelocytes and 6% blasts were quantitated on the differential. She does not have any chronic recurring fever or drenching night sweats. Normal appetite. No early satiety. No left upper quadrant pain. No bleeding issues or unexplained bruising. Had partial hysterectomy previously. No longer has menses. No history of cardiac disease, renal disease or pancreatic disease. No chronic respiratory illnesses. Uses omeprazole on occasion as needed. Previous therapy: 1) Bosutinib. Began 08/11/2022. Current therapy: 1) Asciminib. Changed so she could resume PPI. Presents for ongoing oncologic management. Interim history: Shortly after starting Scemblix, she had worsening right sided sciatica pain. Evidently years ago she had a blood patch done following an epidural after delivery of one of her children. This was done on the right paralumbar region. She has had occasional sciatica pain but significantly worsened after starting Scemblix. Plain film was done at [facility] indicating disc space narrowing at L4-L5 and L5-S1 most pronounced at the L5-S1 space. There was an approximate 3 mm retrolisthesis of L5 on S1 and approximately 2 mm anterolisthesis of L4 on L5. Other very mild degenerative changes lumbar spine were noted. She is scheduled for MRI August 10. She has some cervical pain. No other pain. No other side effects from Scemblix. PMH, medications and allergies personally reviewed by me today. Any changes documented in appropriate section. ROS: Constitutional: See HPI. Neuro: Denies BAÑUELOS, vertigo, dizziness and imbalance. Denies symptoms of neuropathy. HEENT: No recent change in voice, vision or hearing. Resp: Denies cough, wheeze and hemoptysis. Denies shortness of breath at rest. CVS: Denies exertional chest pain, PND, orthopnea and LE edema. GI: See HPI. : Denies dysuria or gross hematuria. No symptoms of bladder outlet obstruction. Endo: Denies hot flashes. Denies polyuria and polydipsia. Denies heat and cold intolerance. Musculoskeletal: Chronic right posterior hip pain--see above. Derm: See HPI. Heme: Denies unusual bleeding and unexplained bruising. Psych: Normal mood. PHYSICAL EXAM: Vitals: Blood pressure 155/82, pulse 73, temperature 37.1 ?C (98.7 ?F), temperature source Temporal, weight 104.6 kg (230 lb 8 oz), SpO2 97%. Well-appearing and in no acute distress. EYES: Sclerae are anicteric bilaterally. LYMPHATIC: There is no palpable cervical, supraclavicular adenopathy. RESPIRATORY: Inspiratory breath sounds are of normal intensity in all thakur. No rales, wheezes or rhonchi. CARDIOVASCULAR: Rhythm is regular. ABDOMEN: The abdomen is nondistended. Cannot appreciate splenomegaly. Extremities: No swelling currently. SKIN: No jaundice. Absent patellar reflex on the right. Straight leg test on right positive. ASSESSMENT/PLAN: (C92.10) CML (chronic myelocytic leukemia) (HCC) (primary encounter diagnosis) (K21.9) Gastroesophageal reflux disease, unspecified whether esophagitis Right sided sciatica. 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 She had not had any bleeding or bruising issues. No recent illnesses at the time of presentation. No fever, night sweats or early satiety. -Initial diagnostic PCR for BCR/ABL on peripheral blood demonstrated both p210 and p190 fusion transcripts with p210 being far greater. -MR for p210 at 9 months. p190 undetectable in under 2 months. -DMR. -Tolerating Scemblix very well. Reviewed CBC. Normal. - Discussed a trial of prednisone to see if gives her some relief from sciatica. She has an appointment with orthomattie galeas (more content not included)... Normal [facility] Lipase SerPl-cCncon 07-02-19 25 Lipase [Catalytic activity/Vol] 13 U/L Low 16-61 [facility] Comment on above: Order Comment: Speci men Type: BLOOD SPECIMENOrdering Facility: [facility] Address: [address] [place] [address] Performed By: #### 3 040-3 ####[facility] LABCLIA [id number] [address] [facility] Nelli 06-26-2024 MARY Telephone (PATRICK) LIBIA OLIVAS ([id number]) 1975 F Date Time Provider Department 06/26/24 ESHA READ During your visit today, we recorded the following information about you: Esha Read 06/26/2024 2:22 PM Signed Called patient to review XR of spine. Recommend MRI lumbar to further evaluate. Should also get in to see ortho. Pt is agreeable. Will need imaging at [facility]. PSR: Can you please fax orders and get her set up to have MRI lumbar at [facility] please? Referral placed to ORTHO also at [facility]. Esha Read APRN.Mode Clark 06/26/2024 3:51 PM Signed Referrals have been faxed to [facility], confirmation scanned into docs. Mode Moss Allergies As of Date: 06/26/2024 Noted Allergy Reaction IV DYE (IODINATED CONTRAST MEDIA) 07/25/2022 4 - Hives 7 - Swelling NUBAIN (NALBUPHINE HCL) 05/23/2015 11 - Vomiting Date Reviewed: 06/18/2024 Reviewed by: Esha Read - Fully Assessed Primary Visit Diagnosis:Spinal stenosis of lumbar region, unspecified whether neurogenic claudication present [M48.061] Order(s):MRI LUMBAR SPINE WO IVCON [5092540] Order #: [id number] FUTURE CONSULT TO ORTHOPAEDICS [9055] Order #: [id number]: 1 FUTURE Prescriptions as of 06/26/2024 - asciminib (SCEMBLIX) 40 mg tablet Take 2 tablets (80 mg) by mouth once daily on an empty stomach, 1 hour before or 2 hours after eating - allopurinol (ZYLOPRIM) 300 mg tablet Take 1 tablet by mouth once daily. - potassium chloride (K-TAB) 10 mEq tablet Take 2 tablets by mouth once daily. - ondansetron (ZOFRAN) 8 mg tablet Take 1 tablet by mouth every 8 hours as needed (For chemotherapy induced nausea and vomiting). - acetaminophen (TYLENOL) 325 mg tablet Take 325 mg by mouth every 6 hours as needed. - Ibuprofen 200 mg cap Take by mouth every 6 hours as needed. - furosemide (LASIX) 20 mg tablet Take 1 tablet by mouth once daily. - levothyroxine (SYNTHROID) 125 mcg tablet Take 125 mcg by mouth once daily. Problem List As Of Date 06/26/2024 Noted Resolved Other Specified Disorder of Gallbladder [K82.8] 09/07/2009 Sebaceous cyst [L72.3] 05/23/2015 Melanocytic nevi of scalp and neck [D22.4] 05/23/2015 Intradermal nevus [D23.9] 06/14/2015 Encounter Status:Closed by MODE MOSS on 06/26/24 Normal [facility] CBC W Auto Differential pane l (Bld)on 06-18-2024 Basophils (Bld) [#/Vol] 0.06 10*3/uL Normal <0.11 [facility] Comment on above: Order Comment: Speci men Type: BLOOD SPECIMEN [facility] Address: [address] [facility] [place] [address] Performed By: #### 2 4323-8 #### [facility] CLIA [id number] [address] [place], [place] [id number] [place] Basophils/100 WBC (Bld) 0.8 % Normal [facility] Comment on above: Order Comment: Speci men Type: BLOOD SPECIMEN [facility] Address: [address] [place] [address] Performed By: #### 2 4323-8 #### [facility] CLIA [id number] [address] [place] [address] [place] Differential cell count method Nom (Bld) Auto Normal [facility] Comment on above: Order Comment: Speci men Type: BLOOD SPECIMEN [facility] Address: [address] [place] [address] Performed By: #### 2 4323-8 #### [facility] CLIA [id number] [address] [place] [address] [place] Eosinophils (Bld) [#/Vol] 0.18 10*3/uL Normal <0.46 [facility] Comment on above: Order Comment: Speci men Type: BLOOD SPECIMEN [facility] Address: [address] [place] [address] Performed By: #### 2 4323-8 #### [facility] CLIA [id number] [address] [place] [address] [place] Eosinophils/100 WBC (Bld) 2.3 % Normal [facility] Comment on above: Order Comment: Speci men Type: BLOOD SPECIMEN Ordering Facility: [facility] Address: [address] [place] [address] Performed By: #### 2 4323-8 #### [facility] CLIA [id number] [address] [place] [address] [place] Erythrocyte distribution width (RBC) [Ratio] 13.0 % Normal 11.5-15.0 [facility] Comment on above: Order Comment: Speci men Type: BLOOD SPECIMEN Ordering Facility: [facility] Address: [address] [place] [address] Performed By: #### 2 4323-8 #### [facility] CLIA [id number] [address] [place] [address] [place] Hematocrit (Bld) [Volume fraction] 36.0 % Normal 36.0-46.0 [facility] Comment on above: Order Comment: Speci men Type: BLOOD SPECIMEN Ordering Facility: [facility] Address: [address] [place] [address] Performed By: #### 2 4323-8 #### [facility] CLIA [id number] [address] [place] [address] [place] Hemoglobin (Bld) [Mass/Vol] 12.4 g/dL Normal 11.5-15.5 [facility] Comment on above: Order Comment: Speci men Type: BLOOD SPECIMEN Ordering Facility: [facility] Address: [address] [place] [address] Performed By: #### 2 4323-8 #### [facility] CLIA [id number] [address] [place] [address] [place] Immature granulocytes (Bld) [#/Vol] 0.05 10*3/uL Normal <0.10 [facility] Comment on above: Order Comment: Speci men Type: BLOOD SPECIMEN Ordering Facility: [facility] Address: [address] [place] [address] Performed By: #### 2 4323-8 #### [facility] CLIA [id number] [address] [place] [address] [place] Immature granulocytes/100 WBC (Bld) 0.6 % Normal [facility] Comment on above: Order Comment: Speci men Type: BLOOD SPECIMEN Ordering Facility: [facility] Address: [address] [place] [address] Performed By: #### 2 4323-8 #### [facility] CLIA [id number] [address] [place] [address] [place] Lymphocytes (Bld) [#/Vol] 1.50 10*3/uL Normal 1.00-4.00 [facility] Comment on above: Order Comment: Speci men Type: BLOOD SPECIMEN Ordering Facility: [facility] Address: [address] [place] [address] Performed By: #### 2 4323-8 #### [facility] CLIA [id number] [address] [place] [address] [place] Lymphocytes/100 WBC (Bld) 18.9 % Normal [facility] Comment on above: Order Comment: Speci men Type: BLOOD SPECIMEN Ordering Facility: [facility] Address: [address] [place] [address] Performed By: #### 2 4323-8 #### [id number] [address] [place] [address] [place] MCH (RBC) [Entitic mass] 28.1 pg Normal 26.0-34.0 [facility] Comment on above: Order Comment: Speci men Type: BLOOD SPECIMEN Ordering Facility: [facility] Address: [address] [place] [address] Performed By: #### 2 4323-8 #### [facility] [id number] [address] [place] [address] [place] MCHC (RBC) [Mass/Vol] 34.4 g/dL Normal 30.5-36.0 [facility] Comment on above: Order Comment: Speci men Type: BLOOD SPECIMEN Ordering Facility: [facility] Address: [address] [place] [address] Performed By: #### 2 4323-8 #### [facility] [id number] [address] [place] [address] [place] MCV (RBC) [Entitic vol] 81.6 fL Normal 80.0-100.0 [facility] Comment on above: Order Comment: Speci men Type: BLOOD SPECIMEN Ordering Facility: [facility] Address: [address] [place] [address] Performed By: #### 2 4323-8 #### [facility] CLIA [id number] [address] [place] [address] [place] Monocytes (Bld) [#/Vol] 0.47 10*3/uL Normal <0.87 [facility] Comment on above: Order Comment: Speci men Type: BLOOD SPECIMEN Ordering Facility: [facility] Address: [address] [place] [address] Performed By: #### 2 4323-8 #### [facility] CLIA [id number] [address] [place] [address] [place] Monocytes/100 WBC (Bld) 5.9 % Normal [facility] Comment on above: Order Comment: Speci men Type: BLOOD SPECIMEN Ordering Facility: [facility] Address: [address] [place] [address] Performed By: #### 2 4323-8 #### [facility] CLIA [id number] [address] [place] [address] [place] Neutrophils (Bld) [#/Vol] 5.66 10*3/uL Normal 1.45-7.50 [facility] Comment on above: Order Comment: Speci men Type: BLOOD SPECIMEN Ordering Facility: [facility] Address: [address] [place] [address] Performed By: #### 2 4323-8 #### [facility] CLIA [id number] [address] [place] [address] [place] Neutrophils/100 WBC (Bld) 71.5 % Normal [facility] Comment on above: Order Comment: Speci men Type: BLOOD SPECIMEN Ordering Facility: [facility] Address: [address] [place] [address] Performed By: #### 2 4323-8 #### [facility] CLIA [id number] [address] [place] [address] [place] Nucleated RBC (Bld) [#/Vol] 10*3/uL Normal <0.01 [facility] Comment on above: Order Comment: Speci men Type: BLOOD SPECIMEN Ordering Facility: [facility] Address: [address] [place] [address] Performed By: #### 2 4323-8 #### [facility] CLIA [id number] [address] [place] [address] [place] Nucleated RBC/100 WBC (Bld) [Ratio] 0.0 /100 WBC Normal [facility] Comment on above: Order Comment: Speci men Type: BLOOD SPECIMEN Ordering Facility: [facility] Address: [address] [place] [address] Performed By: #### 2 4323-8 #### [facility] CLIA [id number] [address] [place] [address] [place] Platelet mean volume (Bld) [Entitic vol] 10.5 fL Normal 9.0-12.7 [facility] Comment on above: Order Comment: Speci men Type: BLOOD SPECIMEN Ordering Facility: [facility] Address: [address] [place] [address] Performed By: #### 2 4323-8 #### [facility] CLIA [id number] [address] [place] [address] [place] Platelets (Bld) [#/Vol] 240 10*3/uL Normal 150-400 [facility] Comment on above: Order Comment: Speci men Type: BLOOD SPECIMEN Ordering Facility: [facility] Address: [address] [place] [address] Performed By: #### 2 4323-8 #### [facility] CLIA [id number] [address] [place] [address] [place] RBC (Bld) [#/Vol] 4.41 10*6/uL Normal 3.90-5.20 [facility] Comment on above: Order Comment: Speci men Type: BLOOD SPECIMEN Ordering Facility: [facility] Address: [address] [place] [address] Performed By: #### 2 4323-8 #### [facility] CLIA [id number] [address] [place] [address] [place] WBC (Bld) [#/Vol] 7.92 10*3/uL Normal 3.70-11.00 [facility] Comment on above: Order Comment: Speci men Type: BLOOD SPECIMEN Ordering Facility: [facility] Address: [address] [place], [place] [address] Performed By: #### 2 4323-8 #### [facility] CLIA [id number] [address] [place] [address] OF [place] CNOVSPon 06-18-2024 CNOVSP Visit (SP) Office (H EMAWS) LIBIA OLIVAS ([id number]) 1975 F Date Time Provider Department 06/18/24 10:30 AM ESHA READ During your visit today, we recorded the following information about you: Temperature Pulse Blood pressure Weight 98.6 degrees 53/minute 146/86 105 kg Esha Read 06/19/2024 12:27 PM Signed Diagnosis: 1) Chronic phase CML. HPI: The patient is a 49-year-old female with past medical history significant for hypothyroidism, sleep apnea (CPAP) and obesity. Was in [place]. On return had found to have elevated triglycerides when had labs done by Dr. Mckeon as part of screening labs for weight loss medications. Had recheck of triglycerides (and a CBC since hadn't had in a year) at [facility] and incidental leukocytosis with WBC count 135.68K. Hgb and platelets normal. Recheck at [facility] 07/21/2022 revealed total white count 131.8 thousand. Hemoglobin 12.3 g/dL. Platelet count 211,000. Absolute neutrophil count 90,000. Absolute lymphocyte count 8000. 15% bands, 2% monocytes, 3% eosinophils, 6% metamyelocytes, 5% myelocytes, 3% promyelocytes and 6% blasts were quantitated on the differential. She does not have any chronic recurring fever or drenching night sweats. Normal appetite. No early satiety. No left upper quadrant pain. No bleeding issues or unexplained bruising. Had partial hysterectomy previously. No longer has menses. No history of cardiac disease, renal disease or pancreatic disease. No chronic respiratory illnesses. Uses omeprazole on occasion as needed. Current therapy: 1) Bosutinib. Began 08/11/2022. Presents for ongoing oncologic management. Interim history: Back pain starting after blood patch 21 years ago, nerve sheath disruption indicated on MRI Dec [address] Felix. Stenosis. She has not seen ortho or spine in the past. Physical job, Worsening pain starting 3 days after starting new medication. Now constant low back pain. Also has bulging disc C spine causing pain which is also more promenent. Sciatic pain to knee regularly all the way down leg if laying down. Unable to lay flat or on right - r sciatic Heat helps, taking ibuprofen and tylenol 2-3 times daily. Has been following with Chiropractor for several years was regularly seeing once ever few weeks, now up to a few times a week. Helps for a tiny bit, maybe a day. Bowel habits have changed since being on the bosutinib, previously having diarrhea, now can go a few days without a BM. PMH, medications and allergies personally reviewed by me today. Any changes documented in appropriate section. ROS: Constitutional: No fevers, chills or NS. PHYSICAL EXAM: Vitals: Blood pressure 146/86, pulse (!) 53, temperature 37 ?C (98.6 ?F), temperature source Temporal, weight 105 kg (231 lb 8 oz), SpO2 98%. Well-appearing and in no acute distress. EYES: Sclerae are anicteric bilaterally. LYMPHATIC: There is no palpable cervical, supraclavicular adenopathy. RESPIRATORY: Inspiratory breath sounds are of normal intensity in all thakur. No rales, wheezes or rhonchi. CARDIOVASCULAR: Rhythm is regular. ABDOMEN: The abdomen is nondistended. Cannot appreciate splenomegaly. Extremities: No swelling currently. SKIN: No jaundice. LABS: ASSESSMENT/PLAN: (C92.10) CML (chronic myelocytic leukemia) (HCC) (primary encounter diagnosis) (K21.9) Gastroesophageal reflux disease, unspecified whether esophagitis present (Z86.39) History of iron deficiency (K21.9) Gastroesophageal reflux disease, unspecified whether esophagitis Assessment: -The patient is a 49-year-old female incidentally found to have leukocytosis with immature granulocytes and mild splenomegaly suggestive of CML. She had not had any bleeding or bruising issues. No recent illnesses at the time of presentation. No fever, night sweats or early satiety. -Initial diagnostic PCR for BCR/ABL on peripheral blood demonstrated both p210 and p190 fusion transcripts with p210 being far greater. -MR for p210 at 9 months. p190 undetectable and under 2 months. -Now in DMR. -She was tolerating bosutinib overall well other than the prevents her from using PPI and reflux continues to be a significant symptom for her. -She was rotated to Scemblix so she can resume PPI. Started about a month ago Plan: -Continue with CBC/CMP in 3 months, as scheduled Acute on chronic lowe back pain - started >20 years ago following blood patch per MRI from 2021 nerve sheath disruption, spinal stenosis - pain worse and now constant after starting Scemblix - following with chiropractor - lipase pending - will plan for xray to be done at [facility] - also recommended establishing with ortho for chronic spinal issues. - follow up pending XR, otherwise keep future appts as scheduled Esha Read, NATALIA.SHOVEL LOG LOADER OPERATOR I spent (more content not included)... Normal [facility] Lipase SerPl-cCncon 06-19-19 25 Lipase [Catalytic activity/Vol] 15 U/L Low 16-61 [facility] Comment on above: Order Comment: Speci men Type: BLOOD SPECIMENOrdering Facility: [facility] Address: [address] [place] [address] Performed By: #### 3 040-3 ####[facility] LABCLIA [id number] [place] [id number] [place] [facility] Lumbar Spine 2 or 3 Viewson 06-18-2024 Lumbar Spine 2 or 3 Views [facility] Imaging Services [address] [place] [address] Lumbar Spine 2 or 3 Views MR#: [id number] Acct: [id number] Name: LIBIA OLIVAS FRIDA Rep #: [id number] : 1975 F 49 From: Jana Emerson PCP: Dr. Krystina Calle DO Status: REG CLI Study: Lumbar Spine 2 or 3 Views Date of Exam: Exam# [id number] Ordering Dr: Toño Brandon o. PROCEDURE: LUMBAR SPINE 2 OR 3 VIEWS 06/18/2024 REASON FOR EXAM: ACUTE LOW BACK PAIN TECHNIQUE: 3 view(s) of the lumbar spine COMPARISON: MRI lumbar spine dated 12/29/2021 FINDINGS: There are 5 lumbar-type vertebral bodies below the last set of paired ribs. The vertebral body heights are within normal limits. There is a proximally 3 mm of retrolisthesis of L5 in relationship to S1. There is a proximally 2 mm of anterolisthesis of L4 in relationship to L5. Very mild degenerative changes of the lumbar spine are noted. There is disc space narrowing involving the L4-L5 and L5-S1 disc spaces. The remaining disc spaces appear to be well preserved. Sacrum appears grossly unremarkable. RAD/Lumbar Spine 2 or 3 Views IMPRESSION: Degenerative disc disease involving the L4-L5 and L5-S1 disc spaces. This is most pronounced at the L5-S1 disc space. Recommendation: An MRI of the lumbar spine may be of value for further evaluation of the disc space and nerve roots in this patient who has having increasing low back pain with radiculopathy type symptoms and abnormal plain film findings. Reading Location: [id number] CC: ESHA READ; Dr. Krystina Calle DO Dye Box Operator: Signed Normal [facility] Lipaseon 06-15-2024 Lipase [Catalytic activity/Vol] 18 U/L Normal 13-75 [facility] Comment on above: Result Comment: Plea se note: LIPASE revised reference range effective 22. New Lipase methodology. Expected to produce lower values than the previous assay method. NEW Reference Range: 13 - 75 U/L Performed By: #### L [phone] #### [facility] [address] [place], [address] Lipase measurementOrdered By : Fabiano Liz on 06-15-2024 Lipase [Catalytic activity/Vol] 18 U/L 13-75 [facility] Comment on above: Please note:LIPASE r evised reference range effective 22. New Lipase methodology. Expected to produce lower values than the previous assay method. NEW Reference Range: 13 - 75 U/L Nelli 06-12-2024 MARY Telephone (PATRICK) LIBIA OLIVAS ([id number]) 1975 F Date Time Provider Department 06/12/24 LIGIA MTZ During your visit today, we recorded the following information about you: Ligia Mtz RN 06/12/2024 1:32 PM Signed ORAL ANTI-CANCER AGENTS FOLLOW-UP PHONE CALL/VISIT Called patient, no answer, left a VM requesting a call back from patient. WENDIE To Amber, RN 06/15/2024 11:15 AM Signed [facility] ANTI-CANCER AGENTS FOLLOW-UP PHONE CALL/VISIT Patient identified by name and date of . YES Patient started asciminib 06/03 for Chronic Myelogenous Leukemia (CML). SYMPTOM ASSESSMENT Headache: No Visual Changes: Yes blurry vision that happens when my neck starts hurting, that disc just throws everything off. Goes to a chiropractor which helps. Dizziness: No Do you have any periods of confusion? No Mood changes: No Mouth or throat pain: No Appetite: no changes in appetite, appetite fair Taste changes: No Nausea: Yes every once in awhile-- possible acid reflux Vomiting: No Heartburn: Yes: taking tums for acid reflux. Weight gain/loss: scale is stable but has been told it looks like she has lost weight. 225-230 lbs. Episodes of palpitations/chest discomfort/pressure/pain No Shortness of breath: No Cough: No Diarrhea: no Constipation: yes, started Miralax. Bladder/Urinary Changes: None Pain: Yes, pain rated 2-5 on a scale of 0-10 (0=none, 10=worst). Location: back pain mid and lower back. Also has neck discomfort I have a disc that keeps slipping out. Character: aching. Duration: last week and a half Frequency: occurs constantly. Not a new pain but worse from baseline. Going to a chiropractor twice a week which helps with the pain for a day. Ibuprofen 4 tablets and tylenol 2 tablets together; took twice yesterday. Patient has not taken anything for pain today because she is not on her feet. Aggravating: sitting, lifting, bending over with mopping (5/10), and up/down steps Alleviating: ibuprofen/tylenol, heat helps. Fever: No Chills: No Cold sensitivity: No Numbness/weakness: Yes in my arms but I think that's also related to my neck, that's not a new thing Edema: Not anymore than normal. Skin changes: my face is breaking out like crazy, cheeks, nose, mouth has pimples. Using normal soap and water. Started after asciminib. Itching: No Yellowing of skin or eyes: No Musculoskeletal/joint changes/issues achy at times not any worse, the back is the worst Bleeding issues: No Activity Level: okay Do you need to take naps? No Does the patient need interventions or same day appointment: will discuss pain with Dr. Liz. ADDITIONAL FOLLOW UP: The next outreach call is due on: TBD and was scheduled patient instructed to call with any new questions/concerns. The following lab tests are due: CBC/lipase/BP check 06/18 Verified patient is aware of next appointment in the cancer center: Yes. Verified patient verbalized how to correctly refill the oral agent prescription. Yes Does the patient have any financial difficulties affording this medication? No Patient verbalizes understanding of when to seek Medical Attention? YES Patient verbalizes understanding of after-hours and weekend phone number? YES Patient verbalized importance of medication compliance in taking the oral agent as prescribed. Patient instructed to call if unable to comply. WENDIE To Amber, RN 06/15/2024 11:[address] Liz would like to check a lipase today. Called patient, no answer, left a VM requesting a call back. Order pended. WENDIE To Paul A, DO 06/15/2024 11:39 AM Signed Thank you. Order filed. If lipase is normal then we will obtain plain film x-rays and schedule an GLOBAL MARKETING MANAGER visit. DO Bibi Rodriguez Amber, RN 06/15/2024 11:46 AM Signed Patient would like to have lab checked at [facility]. Order faxed. Patient informed of Dr. Liz's response and stated understanding. WENDIE To Amber, RN 06/15/2024 4:14 PM Addendum Copied from [facility]: LIPASE 18 13-75 U/L Please note: LIPASE revised reference range effective 22. New Lipase methodology. Expected to produce lower values than the previous assay method. NEW Reference Range: 13 - 75 U/L WENDIE To Paul A, DO 06/15/2024 4:55 PM Signed That's good. Can we set up OV with GLOBAL MARKETING MANAGER to assess back pain further? DO Leilani Rodriguez, Judith 06/15/2024 5:04 PM Addendum I called and spoke to Pepper and schedule her to see Esha Read on 06/18/24 she was schedule already that day for blood pressure check Patient confirmed this date and time Judith Duke Pss Allergies As of Date: 06/12/2024 Noted Allergy Reaction IV DYE (IODINATED CONTRAST MEDIA) 07/25/2022 4 - Hives 7 - Swelling NUBAIN (NALBUPHINE HCL) 05/23/2015 11 - Vomiting Date Reviewed: 0 (more content not included)... Normal [facility] Nelli 05-05-2024 CNPN Telephone (HEMNutonian) LIBIA OLIVAS ([id number]) 1975 F Date Time Provider Department 05/05/24 MARCIOLIGIA During your visit today, we recorded the following information about you: Ligia Mtz, RN 05/05/2024 3:12 PM Signed ORAL ANTI-CANCER AGENTS EDUCATION patient called today for oral medication education of asciminib for Chronic Myelogenous Leukemia (CML) Anticipated/Scheduled start date: TBD READINESS TO LEARN Cognitive Ability: Alert and oriented Motivation to Learn: Interested Family Support: Unable to assess - Family not present Instruction Provided to: Patient Patient learns best by: Multiple Methods Factors affecting learning: None Physical limitation affecting learning: None SANTIAGO ASSESSMENT: 1.) Verified that patient knows that the oral agents are for cancer and are taken by mouth. Yes 2.) Medication review completed during visit. No 3.) Patient is able to swallow pills. Yes 4.) Patient is able to read the drug label/information. Yes 5.) Patient is able to open the medication bottles and packages. Yes 6.) Has patient taken other pills for cancer? YES, please explain: currently on bosutinib but will be switching to asciminib d/t needing to be on a PPI. 7.) Is patient experiencing any symptoms that would affect their ability to keep down pills, for example nausea or vomiting? No 8.) Verified that patient understands prescription delivery, benefit investigation and refill process. Yes DRUG-SPECIFIC EDUCATION: 1.) Verified patient knows the drug name. Yes 2.) Verified patient understands the dose and schedule of oral anti cancer agent. Yes 3.) Verified patient knows what to do if a medication dose is missed. Yes 4.) Verified patient understands where to store the drug. Yes 5.) Verified patient understands potential side effects and how to manage them. Yes 6.)Verified patient understands handling precautions of oral anti cancer agent. Yes 7.) Verified patient was given written instructions and understands when and whom to call with questions. Yes 8.) Verified patient understands where and how to return drug. Yes 9.) Verified patient received drug specific adult education handout and neutropenic wallet card Yes EVALUATE: The patient demonstrated an understanding of all the above education using the teach-back method. Yes Instructed to call us with any questions, concerns, and/or unresolved symptoms. Will continue to follow up and provide reinforcement of teaching topics as needed. 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 - potassium chloride (K-TAB) 10 mEq tablet Take 2 tablets by mouth once daily. - asciminib (SCEMBLIX) 40 mg tablet Take 2 tablets (80 mg) by mouth once daily on an empty stomach, 1 hour before or 2 hours after eating - ondansetron (ZOFRAN) 8 mg tablet Take 1 tablet by mouth every 8 hours as needed (For chemotherapy induced nausea and vomiting). - acetaminophen (TYLENOL) 325 mg tablet Take 325 mg by mouth every 6 hours as needed. - Ibuprofen 200 mg cap Take by mouth every 6 hours as needed. - furosemide (LASIX) 20 mg tablet Take 1 tablet by mouth once daily. - levothyroxine (SYNTHROID) 125 mcg tablet Take 125 mcg by mouth once daily. Problem List As Of Date 05/05/2024 Noted Resolved Other Specified Disorder of Gallbladder [K82.8] 09/07/2009 Sebaceous cyst [L72.3] 05/23/2015 Melanocytic nevi of scalp and neck [D22.4] 05/23/2015 Intradermal nevus [D23.9] 06/14/2015 Encounter Status:Closed by LIGIA MTZ on 06/02/24 [facility] CNOVSPon 04-27-2024 CNOVSP Visit (SP) Office (H EMAWS) REMYLIBIA ([id number]) 1975 F Date Time Provider Department 04/27/24 8:30 AM FABIANO LIZ During your visit today, we recorded the following information about you: Temperature Pulse Blood pressure Weight 97.6 degrees 69/minute 120/77 103.2 kg Fabiano Liz DO 04/27/2024 9:06 AM Signed Diagnosis: 1) Chronic phase CML. HPI: The patient is a 49-year-old female with past medical history significant for hypothyroidism, sleep apnea (CPAP) and obesity. Was in [place]. On return had found to have elevated triglycerides when had labs done by Dr. Mckeon as part of screening labs for weight loss medications. Had recheck of triglycerides (and a CBC since hadn't had in a year) at [facility] and incidental leukocytosis with WBC count 135.68K. Hgb and platelets normal. Recheck at [facility] 07/21/2022 revealed total white count 131.8 thousand. Hemoglobin 12.3 g/dL. Platelet count 211,000. Absolute neutrophil count 90,000. Absolute lymphocyte count 8000. 15% bands, 2% monocytes, 3% eosinophils, 6% metamyelocytes, 5% myelocytes, 3% promyelocytes and 6% blasts were quantitated on the differential. She does not have any chronic recurring fever or drenching night sweats. Normal appetite. No early satiety. No left upper quadrant pain. No bleeding issues or unexplained bruising. Had partial hysterectomy previously. No longer has menses. No history of cardiac disease, renal disease or pancreatic disease. No chronic respiratory illnesses. Uses omeprazole on occasion as needed. Current therapy: 1) Bosutinib. Began 08/11/2022. Presents for ongoing oncologic management. Interim history: Several day h/o fever, nausea/vomiting and diarrhea. No fever since Saturday. N/V and diarrhea slowing. Has Zofran on hand--helped. Home Covid test negative. Still having a lot of difficulty with reflux. Not using Gaviscon due to the texture. Only using Tums. PMH, medications and allergies personally reviewed by me today. Any changes documented in appropriate section. ROS: Constitutional: See HPI. Neuro: Denies BAÑUELOS, vertigo, dizziness and imbalance. Denies symptoms of neuropathy. HEENT: No recent change in voice, vision or hearing. Resp: Denies cough, wheeze and hemoptysis. Denies shortness of breath at rest. CVS: Denies exertional chest pain, PND, orthopnea and LE edema. GI: See HPI. : Denies dysuria or gross hematuria. No symptoms of bladder outlet obstruction. Endo: Denies hot flashes. Denies polyuria and polydipsia. Denies heat and cold intolerance. Musculoskeletal: Chronic right posterior hip pain. Derm: See HPI. Heme: Denies unusual bleeding and unexplained bruising. Psych: Normal mood. PHYSICAL EXAM: Vitals: Blood pressure 120/77, pulse 69, temperature 36.4 ?C (97.6 ?F), temperature source Temporal, weight 103.2 kg (227 lb 8 oz), SpO2 99%. Well-appearing and in no acute distress. EYES: Sclerae are anicteric bilaterally. LYMPHATIC: There is no palpable cervical, supraclavicular adenopathy. RESPIRATORY: Inspiratory breath sounds are of normal intensity in all thakur. No rales, wheezes or rhonchi. CARDIOVASCULAR: Rhythm is regular. ABDOMEN: The abdomen is nondistended. Cannot appreciate splenomegaly. Extremities: No swelling currently. SKIN: No jaundice. LABS: ASSESSMENT/PLAN: (C92.10) CML (chronic myelocytic leukemia) (HCC) (primary encounter diagnosis) (K21.9) Gastroesophageal reflux disease, unspecified whether esophagitis present (Z86.39) History of iron deficiency (K21.9) Gastroesophageal reflux disease, unspecified whether esophagitis Assessment: -The patient is a 49-year-old female incidentally found to have leukocytosis with immature granulocytes and mild splenomegaly suggestive of CML. She had not had any bleeding or bruising issues. No recent illnesses at the time of presentation. No fever, night sweats or early satiety. -Initial diagnostic PCR for BCR/ABL on peripheral blood demonstrated both p210 and p190 fusion transcripts with p210 being far greater. -MR for p210 at 9 months. p190 undetectable and under 2 months. -Now in DMR. -Tolerating bosutinib overall well other than the prevents her from using PPI and reflux continues to be a significant symptom for her. -Discussed rotating to Scemblix so she can resume PPI. Plan: -Triall of rotating to Scemblix. Rx sent. -CBC/CMP in 3 months. -Continue Tums taken at least 2 hours before or at least 2 hours after taking bosutinib. Portions of this documentation were copied and pasted from my previous office visit note dated 10/30/2023 in order to provide a cohesive continuity of the history. The note has been reviewed and edited and updated as necessary. Fabiano Liz DO Referring Provider: FABIANO LIZ [[id number]] Allergies As of Date: 04/27/2024 (more content not included)... Normal [facility] BCR/ABL1 P210 %IS PANELon BCR/ABL1 P210 %IS 0.01 Normal [facility] Comment on above: Order Comment: Kaitlin shafer Type: BLOOD SPECIMEN Ordering Facility: [facility] Address: [address] [place] [address] Performed By: #### 2 4323-8 #### [facility] CLIA [id number] [address] [place] [address] [place] BCR/ABL1 P210 MR 4 Normal [facility] Comment on above: Order Comment: Kaitlin shafer Type: BLOOD SPECIMEN Ordering Facility: [facility] Address: [address] [place] [address] Performed By: #### 2 4323-8 #### [facility] CLIA [id number] [address] [place] [address] [place] BCR/ABL1 P210 QUANTITATIVE P CR BLOODon 04-20-2024 BCR/ABL1 P210 INTERPRETATION Normal [facility] Comment on above: Order Comment: Kaitlin shafer Type: BLOOD SPECIMEN Ordering Facility: [facility] Address: [address] [place] [address] Result Comment: BCR/ ABL1 p210 Quantitative PCR Laboratory Accession Number: [id number] Result: DETECTED MR: 4 %IS: 0.01 Interpretation: p210 BCR/ABL1 transcripts were detected. Quantitative results are expressed on the International Scale (IS) and a log molecular response (MR) is calculated. On this scale, a value of less than or equal to 0.1% corresponds to a major molecular response (MMR or MR3.0). Methodology: The [employer] QuantideX BCR/ABL IS assay is an FDA-cleared in vitro diagnostic test for the quantitation of BCR/ABL1 and ABL1 transcripts in total RNA from whole blood of diagnosed t(9;22) positive chronic myeloid leukemia patients expressing e13a2 and/or e14a2 fusion transcripts. This test does not detect p190 (e1a2) or other rare BCR/ABL1 transcripts. This assay has a limit of quantification and limit of detection of 0.002% IS or MR4.7. References: 1) Jaciel et al, Blood 2006;108:28-37; Cornelio et al, Leukemia 2015;29:999-1003 As reviewed by Aaron Garcia MD Performed By: #### 2 4323-8 #### [facility] CLIA [id number] [address] [place] [address] [place] CBC W Auto Differential pane l (Bld)on 04-20-2024 Basophils (Bld) [#/Vol] 0.04 10*3/uL Normal <0.11 [facility] Comment on above: Order Comment: Speci men Type: BLOOD SPECIMEN Ordering Facility: [facility] Address: [address] [place] [address] Performed By: #### 2 4323-8 #### [facility] CLIA [id number] [address] [place] [address] [place] Basophils/100 WBC (Bld) 0.6 % Normal [facility] Comment on above: Order Comment: Speci men Type: BLOOD SPECIMEN Ordering Facility: [facility] Address: [address] [place] [address] Performed By: #### 2 4323-8 #### [facility] CLIA [id number] [address] [place] [address] [place] Differential cell count method Nom (Bld) Auto Normal [facility] Comment on above: Order Comment: Speci men Type: BLOOD SPECIMEN Ordering Facility: [facility] Address: [address] [place] [address] Performed By: #### 2 4323-8 #### [facility] CLIA [id number] [address] [place] [address] [place] Eosinophils (Bld) [#/Vol] 0.25 10*3/uL Normal <0.46 [facility] Comment on above: Order Comment: Speci men Type: BLOOD SPECIMEN Ordering Facility: [facility] Address: [address] [place] [address] Performed By: #### 2 4323-8 #### [facility] CLIA [id number] [address] [place] [address] [place] Eosinophils/100 WBC (Bld) 3.5 % Normal [facility] Comment on above: Order Comment: Speci men Type: BLOOD SPECIMEN Ordering Facility: [facility] Address: [address] [place] [address] Performed By: #### 2 4323-8 #### [facility] CLIA [id number] [address] [place] [address] [place] Erythrocyte distribution width (RBC) [Ratio] 13.8 % Normal 11.5-15.0 [facility] Comment on above: Order Comment: Speci men Type: BLOOD SPECIMEN Ordering Facility: [facility] Address: [address] [place] [address] Performed By: #### 2 4323-8 #### [facility] CLIA [id number] [address] [place] [address] [place] Hematocrit (Bld) [Volume fraction] 37.1 % Normal 36.0-46.0 [facility] Comment on above: Order Comment: Speci men Type: BLOOD SPECIMEN Ordering Facility: [facility] Address: [address] [place] [address] Performed By: #### 2 4323-8 #### [facility] CLIA [id number] [address] [place] [address] [place] Hemoglobin (Bld) [Mass/Vol] 12.4 g/dL Normal 11.5-15.5 [facility] Comment on above: Order Comment: Speci men Type: BLOOD SPECIMEN Ordering Facility: [facility] Address: [address] [place] [address] Performed By: #### 2 4323-8 #### [facility] CLIA [id number] [address] [place] [address] [place] Immature granulocytes (Bld) [#/Vol] 10*3/uL Normal <0.10 [facility] Comment on above: Order Comment: Speci men Type: BLOOD SPECIMEN Ordering Facility: [facility] Address: [address] [place] [address] Performed By: #### 2 4323-8 #### [facility] CLIA [id number] [address] [place] [address] [place] Immature granulocytes/100 WBC (Bld) 0.1 % Normal [facility] Comment on above: Order Comment: Speci men Type: BLOOD SPECIMEN Ordering Facility: [facility] Address: [address] [place] [address] Performed By: #### 2 4323-8 #### [facility] CLIA [id number] [address] [place] [address] [place] Lymphocytes (Bld) [#/Vol] 1.47 10*3/uL Normal 1.00-4.00 [facility] Comment on above: Order Comment: Speci men Type: BLOOD SPECIMEN Ordering Facility: [facility] Address: [address] [place] [address] Performed By: #### 2 4323-8 #### [facility] CLIA [id number] [address] [place] [address] [place] Lymphocytes/100 WBC (Bld) 20.9 % Normal [facility] Comment on above: Order Comment: Speci men Type: BLOOD SPECIMEN Ordering Facility: [facility] Address: [address] [place] [address] Performed By: #### 2 4323-8 #### [facility] CLIA [id number] [address] [place] [address] [place] MCH (RBC) [Entitic mass] 27.7 pg Normal 26.0-34.0 [facility] Comment on above: Order Comment: Speci men Type: BLOOD SPECIMEN Ordering Facility: [facility] Address: [address] [place] [address] Performed By: #### 2 4323-8 #### [facility] CLIA [id number] [address] [place] [address] [place] MCHC (RBC) [Mass/Vol] 33.4 g/dL Normal 30.5-36.0 [facility] Comment on above: Order Comment: Speci men Type: BLOOD SPECIMEN Ordering Facility: [facility] Address: [address] [place] [address] Performed By: #### 2 4323-8 #### [facility] CLIA [id number] [address] [place] [address] [place] MCV (RBC) [Entitic vol] 83.0 fL Normal 80.0-100.0 [facility] Comment on above: Order Comment: Speci men Type: BLOOD SPECIMEN Ordering Facility: [facility] Address: [address] [place] [address] Performed By: #### 2 4323-8 #### [facility] [id number] [address] [place] [address] [place] Monocytes (Bld) [#/Vol] 0.38 10*3/uL Normal <0.87 [facility] Comment on above: Order Comment: Speci men Type: BLOOD SPECIMEN Ordering Facility: [facility] Address: [address] [place] [address] Performed By: #### 2 4323-8 #### [facility] CLIA [id number] [address] [place] [address] [place] Monocytes/100 WBC (Bld) 5.4 % Normal [facility] Comment on above: Order Comment: Speci men Type: BLOOD SPECIMEN Ordering Facility: [facility] Address: [address] [place] [address] Performed By: #### 2 4323-8 #### [facility] CLIA [id number] [address] [place] [address] [place] Neutrophils (Bld) [#/Vol] 4.90 10*3/uL Normal 1.45-7.50 [facility] Comment on above: Order Comment: Speci men Type: BLOOD SPECIMEN Ordering Facility: [facility] Address: [address] [place] [address] Performed By: #### 2 4323-8 #### [facility] CLIA [id number] [address] [place] [address] [place] Neutrophils/100 WBC (Bld) 69.5 % Normal [facility] Comment on above: Order Comment: Speci men Type: BLOOD SPECIMEN Ordering Facility: [facility] Address: [address] [place] [address] Performed By: #### 2 4323-8 #### [facility] CLIA [id number] [address] [place] [address] [place] Nucleated RBC (Bld) [#/Vol] 10*3/uL Normal <0.01 [facility] Comment on above: Order Comment: Speci men Type: BLOOD SPECIMEN Ordering Facility: [facility] Address: [address] [place] [address] Performed By: #### 2 4323-8 #### [facility] CLIA [id number] [address] [place] [address] [place] Nucleated RBC/100 WBC (Bld) [Ratio] 0.0 /100 WBC Normal [facility] Comment on above: Order Comment: Speci men Type: BLOOD SPECIMEN Ordering Facility: [facility] Address: [address] [place] [address] Performed By: #### 2 4323-8 #### [facility] CLIA [id number] [address] [place] [address] [place] Platelet mean volume (Bld) [Entitic vol] 10.4 fL Normal 9.0-12.7 [facility] Comment on above: Order Comment: Speci men Type: BLOOD SPECIMEN Ordering Facility: [facility] Address: [address] [place] [address] Performed By: #### 2 4323-8 #### [facility] CLIA [id number] [address] [place] [address] [place] Platelets (Bld) [#/Vol] 221 10*3/uL Normal 150-400 [facility] Comment on above: Order Comment: Speci men Type: BLOOD SPECIMEN Ordering Facility: [facility] Address: [address] [place] [address] Performed By: #### 2 4323-8 #### [facility] CLIA [id number] [address] [place] [address] [place] RBC (Bld) [#/Vol] 4.47 10*6/uL Normal 3.90-5.20 [facility] Comment on above: Order Comment: Speci men Type: BLOOD SPECIMEN Ordering Facility: [facility] Address: [address] [place] [address] Performed By: #### 2 4323-8 #### [facility] CLIA [id number] [address] [place] [address] [place] WBC (Bld) [#/Vol] 7.05 10*3/uL Normal 3.70-11.00 [facility] Comment on above: Order Comment: Speci men Type: BLOOD SPECIMEN Ordering Facility: [facility] Address: [address] [place] [address] Performed By: #### 2 4323-8 #### [facility] CLIA [id number] [address] [place] [id number] [place] Comprehensive metabolic 2000 panelon 04-20-2024 Albumin [Mass/Vol] 4.2 g/dL Normal 3.9-4.9 [facility] Comment on above: Order Comment: Speci men Type: BLOOD SPECIMENOrdering Facility: [facility] Address: [address] [place] [address] Performed By: #### 2 4323-8, 30963-7, 1 ####[facility] [id number] [place] [address] [place] ALP [Catalytic activity/Vol] 75 U/L Normal 34-123 [facility] Comment on above: Order Comment: Speci men Type: BLOOD SPECIMENOrdering Facility: [facility] Address: [address] [place] [address] Performed By: #### 2 4323-8, 34351-0, 2771 ####[facility] [id number] [place] [address] [place] ALT [Catalytic activity/Vol] 24 U/L Normal 7-38 [facility] Comment on above: Order Comment: Speci men Type: BLOOD SPECIMENOrdering Facility: [facility] Address: [address] [place] [address] Performed By: #### 2 4323-8, , 2776-03 ####[facility] [id number] [place] [address] [place] Anion gap [Moles/Vol] 8 mmol/L Normal 8-15 [facility] Comment on above: Order Comment: Speci men Type: BLOOD SPECIMENOrdering Facility: [facility] Address: [address] [place] [address] Performed By: #### 2 4323-8, 91463-3, 2776-03 ####[facility] AVELINO HENSLEYWNCJOANA [id number] [place] [address] [place] AST [Catalytic activity/Vol] 11 U/L Low 13-35 [facility] Comment on above: Order Comment: Speci men Type: BLOOD SPECIMENOrdering Facility: [facility] Address: [address] [place] [address] Performed By: #### 2 4323-8, , 2776-03 ####[facility] DEEJAYHERMELINDONCJOANA [id number] [place] [address] [place] Bilirubin [Mass/Vol] 0.3 mg/dL Normal 0.2-1.3 [facility] Comment on above: Order Comment: Speci men Type: BLOOD SPECIMENOrdering Facility: [facility] Address: [address] [place] [address] Performed By: #### 2 4323-8, , 27709-22 ####[facility] DEEJAYALEXANDRIANCJOANA [id number] [place] [address] [place] Calcium [Mass/Vol] 8.8 mg/dL Normal 8.5-10.2 [facility] Comment on above: Order Comment: Speci men Type: BLOOD SPECIMENOrdering Facility: [facility] Address: [address] [place], [place] [address] Performed By: #### 2 4323-8, 33451-3, 27709-22 ####[facility] [id number] [place] [address] [place] Chloride [Moles/Vol] 109 mmol/L High 98-107 [facility] Comment on above: Order Comment: Speci men Type: BLOOD SPECIMENOrdering Facility: [facility] Address: [address] [place], [place] [address] Performed By: #### 2 4323-8, 26938-4, 1 ####[facility] AVELINO VILLALBAALEXANDRIANCLETICIA [id number] [place] [address] [place] CO2 [Moles/Vol] 25 mmol/L Normal 22-30 [facility] Comment on above: Order Comment: Speci men Type: BLOOD SPECIMENOrdering Facility: [facility] Address: [address] [place], [place] [address] Performed By: #### 2 4323-8, , 2776-03 ####[facility] DEEJAYALEXANDRIANCLIA [id number] [place] [address] [place] Creatinine [Mass/Vol] 0.70 mg/dL Normal 0.58-0.96 [facility] Comment on above: Order Comment: Speci men Type: BLOOD SPECIMENOrdering Facility: [facility] Address: [address] [place] [address] Performed By: #### 2 4323-8, , 1 ####[facility] [id number] [address] [place] Creatinine and Glomerular filtration rate.predicted panel (S/P/Bld) 108 mL/min/1.73m??? Normal >=60 [facility] Comment on above: Order Comment: Kaitlin shafer Type: BLOOD SPECIMENOrdering Facility: [facility] Address: [address] [place] [address] Result Comment: Antoinette mated Glomerular Filtration Rate (eGFR) is calculated using the 2020 CKD-EPI creatinine equation. This equation utilizes serum creatinine, sex, and age as parameters. The creatinine assay has traceable calibration to isotope dilution-mass spectrometry. Refer to KDIGO guidelines for clinical interpretation. In patients with unstable renal function, e.g. those with acute kidney injury, the eGFR may not accurately reflect actual GFR. Performed By: #### 2 4323-8, 59715-9, 2776-03 ####[facility] DEEJAYTOWNCLIA [id number] [place] [address] [place] Glucose [Mass/Vol] 97 mg/dL Normal 74-99 [facility] Comment on above: Order Comment: Speci men Type: BLOOD SPECIMENOrdering Facility: [facility] Address: [address] [place] [address] Result Comment: The [place] [employer] (ADA) provides guidance for cutoff values for fasting glucose and random glucose. The ADA defines fasting as no caloric intake for at least 8 hours. Fasting plasma glucose results between 100 to 125 mg/dL indicate increased risk for diabetes (prediabetes). Fasting plasma glucose results greater than or equal to 126 mg/dL meet the criteria for diagnosis of diabetes. In the absence of unequivocal hyperglycemia, results should be confirmed by repeat testing. In a patient with classic symptoms of hyperglycemia or hyperglycemic crisis, random plasma glucose results greater than or equal to 200 mg/dL meet the criteria for diagnosis of diabetes. Reference: Standards of Medical Care in Diabetes 2016, [place] [employer]. Diabetes Care. 2016.39(Suppl 1). Performed By: #### 2 4323-8, 97534-6, 2776-03 ####[facility] DEEJAYWNCLIA [id number] [place] [address] [place] Potassium [Moles/Vol] 3.7 mmol/L Normal 3.7-5.1 [facility] Comment on above: Order Comment: Speci men Type: BLOOD SPECIMENOrdering Facility: [facility] Address: [address] [id number] Performed By: #### 2 4323-8, 12164-5, 277-1 ####[facility] DEEJAYWNCLIA [id number] [place] [address] [place] Protein [Mass/Vol] 6.1 g/dL Low 6.3-8.0 [facility] Comment on above: Order Comment: Speci men Type: BLOOD SPECIMENOrdering Facility: [facility] Address: [address] [place], [place] [address] Performed By: #### 2 4323-8, 91759-2, 2777-1 ####[facility] [id number] [place] [address] [place] Sodium [Moles/Vol] 142 mmol/L Normal 136-144 [facility] Comment on above: Order Comment: Speci men Type: BLOOD SPECIMENOrdering Facility: [facility] Address: [address] [place] [address] Performed By: #### 2 4323-8, 20167-3, 2777-1 ####[facility] [id number] [place] [address] [place] Urea nitrogen [Mass/Vol] 11 mg/dL Normal 7-21 [facility] Comment on above: Order Comment: Speci men Type: BLOOD SPECIMENOrdering Facility: [facility] Address: [address] [place] [address] Performed By: #### 2 4323-8, 34272-3, 2777-1 ####[facility]CL[facility] [id number] [place] [address] [place] Ferritin SerPl-mCncon 2024 Ferritin [Mass/Vol] 169.0 ng/mL Normal 14.7-205.1 [facility] Comment on above: Order Comment: Speci men Type: BLOOD SPECIMENOrdering Facility: [facility] Address: [address] [place] [address] Performed By: #### 2 276-4, 06747-0 ####[facility] [facility] LABCLIA [id number] [place] [id number] [place] Iron and Iron binding capaci ty panelon 04-20-2024 Iron [Mass/Vol] 55 ug/dL Normal 41-186 [facility] Comment on above: Order Comment: Speci men Type: BLOOD SPECIMENOrdering Facility: [facility] Address: [address] [place], [place] [address] Performed By: #### 2 276-4, 41816-9 ####[facility] LABIA [id number] [place] [id number] [place] Iron binding capacity [Mass/Vol] 318 ug/dL Normal 232-386 [facility] Comment on above: Order Comment: Speci men Type: BLOOD SPECIMENOrdering Facility: [facility] Address: [address] [place], [place] [address] Performed By: #### 2 276-4, 81835-0 ####[facility] LABIA [id number] [place] [address] [place] Iron/TIBC [Molar ratio] 17.3 % Normal 15.0-57.0 [facility] Comment on above: Order Comment: Speci men Type: BLOOD SPECIMENOrdering Facility: [facility] Address: [address] [place] [address] Performed By: #### 2 276-4, 23338-7 ####[facility] LABIA [id number] [place] [address] [place] Magnesium SerPl-mCncon 04-20 Magnesium [Mass/Vol] 2.0 mg/dL Normal 1.7-2.3 [facility] Comment on above: Order Comment: Speci men Type: BLOOD SPECIMENOrdering Facility: [facility] Address: [address] [place] [address] Performed By: #### 2 4323-8, 80671-6, 2777-1 ####[facility]ENTERCARYL [id number] [place] [address] [place] Phosphate SerPl-mCncon 04-20 Phosphate [Mass/Vol] 2.9 mg/dL Normal 2.7-4.8 [facility] Comment on above: Order Comment: Speci men Type: BLOOD SPECIMENOrdering Facility: [facility] Address: [address] [place], [place] [address] [address] Performed By: #### 2 4323-8, 90410-2, 2777-1 ####[facility] [id number] [place] [address] [place] Automation Consultant Office Visit Reporton 02-24-2024 Automation Consultant Office Visit Report [facility] [address], [address] [place] [address] OFFICE VISIT Date of Service: 02/24/24 MR#: [id number] Acct: [id number] Name: LIBIA OLIVAS FRIDA Rep #: [id number] : 1975 Provider: Dr. 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: No Is patient in pain?: No Feel stressed/tense/nervous/anxi ous/difficulty sleeping: not at all Allergies Iodinated Contrast Media Allergy (Verified 02/24/24 09:09) Hives nalbuphine HCl (From Nubain) Adverse Reaction (Verified 02/24/24 09:09) Vomiting Medications ???Medication ???Instructions ???Recorded ???Confirmed ???Type levothyroxine 125 mcg capsule 125 mcg PO DAILY #90 caps 04/13/19 12/19/23 Rx (Tirosint) allopurinol 300 mg tablet 300 mg PO DAILY 02/19/23 12/19/23 History bosutinib 400 mg tablet (Bosulif) 400 mg PO DAILY 02/19/23 12/19/23 History furosemide 20 mg tablet 20 mg PO Q OTHER DAY PRN edema 02/19/23 12/19/23 History ondansetron HCl 8 mg tablet 8 mg PO Q8H PRN nausea and vomiting 09/16/23 12/19/23 History potassium chloride 10 mEq 20 meq PO BID 02/24/24 02/24/24 History tablet,extended release (Klor-Con) Is last menstrual period known: No Patient : No : No PFSH Medical History Wears glasses Wears contact lenses Post-menopausal Thyroid disease Fatty liver Low iron Gastric reflux Heartburn Non-smoker Shortness of breath on exertion CPAP (continuous positive airway pressure) dependence Sleep apnea History of edema History of leukemia Cancer History of irregular heartbeat History of echocardiogram 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 GERD (gastroesophageal reflux disease) Anemia Surgical History History of bone marrow biopsy H/O tubal ligation ( 2005) delivery delivered H/O: hysterectomy History of cholecystectomy Family History Father CAD (coronary artery disease) Diabetes Other Hypertension Myocardial infarction Thyroid disorder Social History (Updated 02/24/24 @ 09:11 by Mee Irizarry) household members: spouse current occupational status: employed Smoking Status: Never smoker alcohol intake: current alcohol intake frequency: holidays/special occasions only details: social substance use type: does not use caffeine: Yes what type of physical activity do you participate in: walking and weight training seatbelt use: always do you feel safe at home: Yes 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 Date Name GA/Weeks Outcome Route Bth Weight Gen Labor Lgth Anesthesia Del Locatn Provider FOB Unknown 1995 Ciaran Unknown summer Unknown 2003 [place] HPI Encounter for routine gynecological examination Details: LIBIA OLIVAS is a 49 year old who presents for annual exam. Last PAP: partial hyst History of abnormal PAP: Last mammogram: 01/09/2024 History of abnormal mammogram: Colon cancer screening: colonoscopy in December - normal, due in 10 years Other preventative health care screenings: PCP is Dr. Malys - labs have been getting done through oncologist. ROS Const Constitutional: Reports as per HPI; Denies fatigue, increased appetite, poor appetite, weight gain or weight loss Cardio Card: Denies chest pain Resp Resp: Denies cough or dyspnea GI GI: Reports as per HPI; Denies abdominal pain, bloating, constipation, nausea or vomiting : Reports as per HPI and other; Denies difficulty voiding, dysuria, hematuria, nipple discharge, pelvic pain, prolapse symptoms, urinary frequency, urinary incontinence, urinary urgency, vaginal discharge, vaginal dryness, vaginal odor or vaginal pruritus Skin Skin/Breast: Denies changing lesions, breast mass, breast pain, breast skin changes or nipple discharge Psych Psych: Denies anxiety or depression Exam Const General: cooperative, healthy appearing, comfortable, no acute distress, well developed and well groomed HENCA Head: normal to inspection and normocephalic Ears: hearing grossly normal bilaterally and external ea (more content not included)... Normal [facility] CBC W Auto Differential pane l (Bld)on 01-30-2024 Basophils (Bld) [#/Vol] 0.07 10*3/uL Normal <0.11 [facility] Comment on above: Order Comment: Speci men Type: BLOOD SPECIMEN [facility] Address: [address] [place] [address] Performed By: #### 2 4323-8 #### [facility] CLIA [id number] [address] [place] [address] [place] Basophils/100 WBC (Bld) 0.8 % Normal [facility] Comment on above: Order Comment: Speci men Type: BLOOD SPECIMEN [facility] Address: [address] [place] [address] Performed By: #### 2 4323-8 #### [facility] CLIA [id number] [address] [place] [address] [place] Differential cell count method Nom (Bld) Auto Normal [facility] Comment on above: Order Comment: Speci men Type: BLOOD SPECIMEN [facility] Address: [address] [place] [address] Performed By: #### 2 4323-8 #### [facility] CLIA [id number] [address] [place] [address] [place] Eosinophils (Bld) [#/Vol] 0.27 10*3/uL Normal <0.46 [facility] Comment on above: Order Comment: Speci men Type: BLOOD SPECIMEN [facility] Address: [address] [place] [address] Performed By: #### 2 4323-8 #### [facility] CLIA [id number] [address] [place] [address] [place] Eosinophils/100 WBC (Bld) 2.9 % Normal [facility] Comment on above: Order Comment: Speci men Type: BLOOD SPECIMEN [facility] Address: [address] [place] [address] Performed By: #### 2 4323-8 #### [facility] CLIA [id number] [address] [place] [address] [place] Erythrocyte distribution width (RBC) [Ratio] 14.2 % Normal 11.5-15.0 [facility] Comment on above: Order Comment: Speci men Type: BLOOD SPECIMEN [facility] Address: [address] [place] [address] Performed By: #### 2 4323-8 #### [facility] CLIA [id number] [address] [place] [address] [place] Hematocrit (Bld) [Volume fraction] 37.7 % Normal 36.0-46.0 [facility] Comment on above: Order Comment: Speci men Type: BLOOD SPECIMEN [facility] Address: [address] [place] [address] Performed By: #### 2 4323-8 #### [facility] CLIA [id number] [address] [place] [address] [place] Hemoglobin (Bld) [Mass/Vol] 12.3 g/dL Normal 11.5-15.5 [facility] Comment on above: Order Comment: Speci men Type: BLOOD SPECIMEN [facility] Address: [address] [place] [address] Performed By: #### 2 4323-8 #### [facility] CLIA [id number] [address] [place] [address] [place] Immature granulocytes (Bld) [#/Vol] 0.04 10*3/uL Normal <0.10 [facility] Comment on above: Order Comment: Speci men Type: BLOOD SPECIMEN [facility] Address: [address] [place] [address] Performed By: #### 2 4323-8 #### [facility] CLIA [id number] [address] [place] [address] [place] Immature granulocytes/100 WBC (Bld) 0.4 % Normal [facility] Comment on above: Order Comment: Speci men Type: BLOOD SPECIMEN [facility] Address: [address] [place] [address] Performed By: #### 2 4323-8 #### [facility] CLIA [id number] [address] [place] [address] [place] Lymphocytes (Bld) [#/Vol] 1.54 10*3/uL Normal 1.00-4.00 [facility] Comment on above: Order Comment: Speci men Type: BLOOD SPECIMEN [facility] Address: [address] [place] [address] Performed By: #### 2 4323-8 #### [facility] CLIA [id number] [address] [place] [address] [place] Lymphocytes/100 WBC (Bld) 16.7 % Normal [facility] Comment on above: Order Comment: Speci men Type: BLOOD SPECIMEN [facility] Address: [address] [place] [address] Performed By: #### 2 4323-8 #### [facility] CLIA [id number] [address] [place] [address] MCH (RBC) [Entitic mass] 27.3 pg Normal 26.0-34.0 [facility] Comment on above: Order Comment: Speci men Type: BLOOD SPECIMEN [facility] Address: [address] [place] [address] Performed By: #### 2 4323-8 #### [facility] CLIA [id number] [address] [place] [address] [place] MCHC (RBC) [Mass/Vol] 32.6 g/dL Normal 30.5-36.0 [facility] Comment on above: Order Comment: Speci men Type: BLOOD SPECIMEN [facility] Address: [address] [place] [address] Performed By: #### 2 4323-8 #### [facility] [id number] [address] [place] [address] [place] MCV (RBC) [Entitic vol] 83.6 fL Normal 80.0-100.0 [facility] Comment on above: Order Comment: Speci men Type: BLOOD SPECIMEN [facility] Address: [address] [place] [address] Performed By: #### 2 4323-8 #### [facility] CLIA [id number] [address] [place] [address] [place] Monocytes (Bld) [#/Vol] 0.49 10*3/uL Normal <0.87 [facility] Comment on above: Order Comment: Speci men Type: BLOOD SPECIMEN [facility] Address: [address] [place] [address] Performed By: #### 2 4323-8 #### [facility] CLIA [id number] [address] [place] [address] [place] Monocytes/100 WBC (Bld) 5.3 % Normal [facility] Comment on above: Order Comment: Speci men Type: BLOOD SPECIMEN [facility] Address: [address] [place] [address] Performed By: #### 2 4323-8 #### [facility] CLIA [id number] [address] [place] [address] [place] Neutrophils (Bld) [#/Vol] 6.83 10*3/uL Normal 1.45-7.50 [facility] Comment on above: Order Comment: Speci men Type: BLOOD SPECIMEN [facility] Address: [address] [place] [address] Performed By: #### 2 4323-8 #### [facility] CLIA [id number] [address] [place] [address] [place] Neutrophils/100 WBC (Bld) 73.9 % Normal [facility] Comment on above: Order Comment: Speci men Type: BLOOD SPECIMEN [facility] Address: [address] [place] [address] Performed By: #### 2 4323-8 #### [facility] CLIA [id number] [address] [place] [address] [place] Nucleated RBC (Bld) [#/Vol] 10*3/uL Normal <0.01 [facility] Comment on above: Order Comment: Speci men Type: BLOOD SPECIMEN [facility] Address: [address] [place] [address] Performed By: #### 2 4323-8 #### [facility] CLIA [id number] [address] [place] [address] [place] Nucleated RBC/100 WBC (Bld) [Ratio] 0.0 /100 WBC Normal [facility] Comment on above: Order Comment: Speci men Type: BLOOD SPECIMEN [facility] Address: [address] [place] [address] Performed By: #### 2 4323-8 #### [facility] CLIA [id number] [address] [place] [address] [place] Platelet mean volume (Bld) [Entitic vol] 10.3 fL Normal 9.0-12.7 [facility] Comment on above: Order Comment: Speci men Type: BLOOD SPECIMEN [facility] Address: [address] [place] [address] Performed By: #### 2 4323-8 #### [facility] CLIA [id number] [address] [place] [address] [place] Platelets (Bld) [#/Vol] 236 10*3/uL Normal 150-400 [facility] Comment on above: Order Comment: Speci men Type: BLOOD SPECIMEN [facility] Address: [address] [place] [address] Performed By: #### 2 4323-8 #### [facility] CLIA [id number] [address] [place] [address] [place] RBC (Bld) [#/Vol] 4.51 10*6/uL Normal 3.90-5.20 [facility] Comment on above: Order Comment: Speci men Type: BLOOD SPECIMEN [facility] Address: [address] [place] [address] Performed By: #### 2 4323-8 #### [facility] CLIA [id number] [address] [place] [address] [place] WBC (Bld) [#/Vol] 9.24 10*3/uL Normal 3.70-11.00 [facility] Comment on above: Order Comment: Speci men Type: BLOOD SPECIMEN [facility] Address: [address] [place] [address] Performed By: #### 2 4323-8 #### [facility] CLIA [id number] [address] [place] [address] [place] CNOVSPon 01-30-2024 CNOVSP Visit (SP) Office (H EMAWS) RENULIBIA TELLES ([id number]) 1975 F Date Time Provider Department 01/30/24 8:00 AM DEVIKA BRUSH During your visit today, we recorded the following information about you: Temperature Pulse Blood pressure Weight 97.5 degrees 99/minute 126/82 106.5 kg Devika Brush APRN.SHOVEL LOG LOADER OPERATOR 01/30/2024 1:04 PM Signed Chief Complaint Patient presents with: Established Patient HPI: Libia Grangernorimaikol is a 49 year old female who presents here today for follow up CML. Per Dr. Liz's previous note: H/o hypothyroidism, sleep apnea (CPAP) and obesity. Was in [place]. On return had found to have elevated triglycerides when had labs done by Dr. Mckeon as part of screening labs for weight loss medications. Had recheck of triglycerides (and a CBC since hadn't had in a year) at [facility] and incidental leukocytosis with WBC count 135.68K. Hgb and platelets normal. Recheck at [facility] 07/21/2022 revealed total white count 131.8 thousand. Hemoglobin 12.3 g/dL. Platelet count 211,000. Absolute neutrophil count 90,000. Absolute lymphocyte count 8000. 15% bands, 2% monocytes, 3% eosinophils, 6% metamyelocytes, 5% myelocytes, 3% promyelocytes and 6% blasts were quantitated on the differential. She does not have any chronic recurring fever or drenching night sweats. Normal appetite. No early satiety. No left upper quadrant pain. No bleeding issues or unexplained bruising. Had partial hysterectomy previously. No longer has menses. No history of cardiac disease, renal disease or pancreatic disease. No chronic respiratory illnesses. Uses omeprazole on occasion as needed. Current therapy: 1) Bosutinib. Began 08/11/2022. Pt. here today with spouse. Appetite:Comes and goes. Energy level:Ok. Denies fevers. Mouth:denies sores Resp:denies cough or sob Cardiac:denies chest pain/palpitations GI:occ. abd pain, occ. nausea, denies vomiting, +reflux, moving bowels regularly :denies dysuria/hematuria Extrem:denies pain Neuro:denies symptoms of neuropathy Skin:denies rashes Heme:denies bleeding The ROS is otherwise negative. Past medical history, appointments, medications, allergies reviewed. No changes. EXAM: BP 126/82 Pulse 99 Temp 36.4 ?C (97.5 ?F) (Temporal) Wt 106.5 kg (234 lb 12.6 oz) SpO2 93% BMI 38.77 kg/m? APPEARANCE Well appearing, alert, in no acute distress, well-hydrated, well nourished. HEART RRR with normal S1 and S2, no murmurs LUNG clear to auscultation LYMPH NODES No cervical lymphadenopathy, No supraclavicular lymphadenopathy, and No axillary lymphadenopathy. ABDOMEN bowel sounds normoactive, soft, non-tender EXTREMITIES No edema NEURO Awake, alert and oriented x 3, Normal gait, and No involuntary motions. SKIN Skin color, texture, turgor normal, no suspicious rashes or lesions LABS: Latest Ref Rng 10/23/2023 01/30/2024 WBC 3.70 - 11.00 k/uL 9.47 9.24 RBC 3.90 - 5.20 m/uL 4.79 4.51 Hemoglobin 11.5 - 15.5 g/dL 12.3 12.3 Hematocrit 36.0 - 46.0 % 38.5 37.7 MCV 80.0 - 100.0 fL 80.4 83.6 MCH 26.0 - 34.0 pg 25.7 (L) 27.3 MCHC 30.5 - 36.0 g/dL 31.9 32.6 RDW-CV 11.5 - 15.0 % 14.2 14.2 Platelet Count 150 - 400 k/uL 243 236 MPV 9.0 - 12.7 fL 10.7 10.3 Neut% % 75.4 73.9 Abs Neut (ANC) 1.45 - 7.50 k/uL 7.14 6.83 Lymph% % 16.8 16.7 Abs Lymph 1.00 - 4.00 k/uL 1.59 1.54 Robeson% % 5.5 5.3 Abs Robeson <0.87 k/uL 0.52 0.49 Eosin% % 1.6 2.9 Abs Eosin <0.46 k/uL 0.15 0.27 Baso% % 0.5 0.8 Abs Baso <0.11 k/uL 0.05 0.07 Immature Gran % % 0.2 0.4 IMMATURE GRANS (ABS) <0.10 k/uL <0.03 0.04 NRBC /100 WBC 0.0 0.0 Absolute nRBC <0.01 k/uL <0.01 <0.01 DTYPE Auto Auto Latest Ref Rng 10/23/2023 01/30/2024 Protein, Total 6.3 - 8.0 g/dL 6.3 6.2 (L) Albumin 3.9 - 4.9 g/dL 4.3 4.1 Calcium 8.5 - 10.2 mg/dL 8.8 9.3 Bilirubin, Total 0.2 - 1.3 mg/dL 0.4 0.4 Alkaline Phosphatase 34 - 123 U/L 79 89 AST 13 - 35 U/L 16 11 (L) ALT 7 - 38 U/L 29 25 Glucose 74 - 99 mg/dL 118 (H) 142 (H) BUN 7 - 21 mg/dL 10 14 Creatinine 0.58 - 0.96 mg/dL 0.70 0.75 Sodium 136 - 144 mmol/L 140 136 Potassium 3.7 - 5.1 mmol/L 3.8 3.8 Chloride 98 - 107 mmol/L 107 105 CO2 22 - 30 mmol/L 23 21 (L) Anion Gap 8 - 15 mmol/L 10 10 eGFR >=60 mL/min/1.73m? 108 99 ASSESSMENT/PLAN: 1. 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 - Tolerating bosulif well except for relfux-unable to take PPI. - Reviewed labs with pt. - Continue bosulif at current dose. - Continue follow up with GI. - Continue current medications. - Add iron studies to labs end of 2024. - Follow up with Dr. Liz as scheduled. - Pt. aware to call office with any questions/concerns. The patient indicates understanding of these issues and agrees with the plan. All documentation from previous visit of 10/29 (more content not included)... Normal [facility] Comprehensive metabolic 2000 panelon 01-30-2024 Albumin [Mass/Vol] 4.1 g/dL Normal 3.9-4.9 [facility] Comment on above: Order Comment: Speci men Type: BLOOD SPECIMENOrdering Facility: [facility] Address: [address] [place] [address] Performed By: #### 2 4323-8 ####[facility] MILLTOWNCLIA [id number] [place] [address] [place] ALP [Catalytic activity/Vol] 89 U/L Normal 34-123 [facility] Comment on above: Order Comment: Speci men Type: BLOOD SPECIMENOrdering Facility: [facility] Address: [address] [place] [address] Performed By: #### 2 4323-8 ####[facility]CLIA [id number] [place] [address] [place] ALT [Catalytic activity/Vol] 25 U/L Normal 7-38 [facility] Comment on above: Order Comment: Speci men Type: BLOOD SPECIMENOrdering Facility: [facility] Address: [address] [place] [address] Performed By: #### 2 4323-8 ####[facility] [id number] [place] [address] [place] Anion gap [Moles/Vol] 10 mmol/L Normal 8-15 [facility] Comment on above: Order Comment: Speci men Type: BLOOD SPECIMENOrdering Facility: [facility] Address: [address] [place] [address] Performed By: #### 2 4323-8 ####[facility] MILLTOWNCLIA [id number] [place] [address] [place] AST [Catalytic activity/Vol] 11 U/L Low 13-35 [facility] Comment on above: Order Comment: Speci men Type: BLOOD SPECIMENOrdering Facility: [facility] Address: [address] [place] [address] Performed By: #### 2 4323-8 ####[facility] MILLTOWNCLIA [id number] [place] [address] [place] Bilirubin [Mass/Vol] 0.4 mg/dL Normal 0.2-1.3 [facility] Comment on above: Order Comment: Speci men Type: BLOOD SPECIMENOrdering Facility: [facility] Address: [address] [place] [address] Performed By: #### 2 4323-8 ####[facility]ENTERWNCLIA [id number] [place] [address] [place] Calcium [Mass/Vol] 9.3 mg/dL Normal 8.5-10.2 [facility] Comment on above: Order Comment: Speci men Type: BLOOD SPECIMENOrdering Facility: [facility] Address: [address] [place] [address] Performed By: #### 2 4323-8 ####[facility]ENTERWNCLIA [id number] [place] [address] [place] Chloride [Moles/Vol] 105 mmol/L Normal 98-107 [facility] Comment on above: Order Comment: Speci men Type: BLOOD SPECIMENOrdering Facility: [facility] Address: [address] [place], [place] [address] Performed By: #### 2 4323-8 ####[facility] [id number] [place] [address] [place] CO2 [Moles/Vol] 21 mmol/L Low 22-30 [facility] Comment on above: Order Comment: Speci men Type: BLOOD SPECIMENOrdering Facility: [facility] Address: [address] [place] [address] Performed By: #### 2 4323-8 ####[facility] [facility] [id number] [place] [address] [place] Creatinine [Mass/Vol] 0.75 mg/dL Normal 0.58-0.96 [facility] Comment on above: Order Comment: Speci men Type: BLOOD SPECIMENOrdering Facility: [facility] Address: [address] [place] [address] Performed By: #### 2 4323-8 ####[facility] [id number] [address] [place] Creatinine and Glomerular filtration rate.predicted panel (S/P/Bld) 99 mL/min/1.73m??? Normal >=60 [facility] Comment on above: Order Comment: Speci men Type: BLOOD SPECIMENOrdering Facility: [facility] Address: [address] [place] [address] Result Comment: Antoinette mated Glomerular Filtration Rate (eGFR) is calculated using the 2020 CKD-EPI creatinine equation. This equation utilizes serum creatinine, sex, and age as parameters. The creatinine assay has traceable calibration to isotope dilution-mass spectrometry. Refer to KDIGO guidelines for clinical interpretation. In patients with unstable renal function, e.g. those with acute kidney injury, the eGFR may not accurately reflect actual GFR. Performed By: #### 2 4323-8 ####[facility] [id number] [place] [address] [place] Glucose [Mass/Vol] 142 mg/dL High 74-99 [facility] Comment on above: Order Comment: Speci men Type: BLOOD SPECIMENOrdering Facility: [facility] Address: [address] [place] [address] Result Comment: The [place] Diabetes Association (ADA) provides guidance for cutoff values for fasting glucose and random glucose. The ADA defines fasting as no caloric intake for at least 8 hours. Fasting plasma glucose results between 100 to 125 mg/dL indicate increased risk for diabetes (prediabetes). Fasting plasma glucose results greater than or equal to 126 mg/dL meet the criteria for diagnosis of diabetes. In the absence of unequivocal hyperglycemia, results should be confirmed by repeat testing. In a patient with classic symptoms of hyperglycemia or hyperglycemic crisis, random plasma glucose results greater than or equal to 200 mg/dL meet the criteria for diagnosis of diabetes. Reference: Standards of Medical Care in Diabetes 2016, [place] [employer] Association. Diabetes Care. 2016.39(Suppl 1). Performed By: #### 2 4323-8 ####[facility] [id number] [place] [address] [place] Potassium [Moles/Vol] 3.8 mmol/L Normal 3.7-5.1 [facility] Comment on above: Order Comment: Speci men Type: BLOOD SPECIMENOrdering Facility: [facility] Address: [address] [place], [place] [id number] Performed By: #### 2 4323-8 ####[facility]LETICIA [id number] [place] [address] [place] Protein [Mass/Vol] 6.2 g/dL Low 6.3-8.0 [facility] Comment on above: Order Comment: Speci men Type: BLOOD SPECIMENOrdering Facility: [facility] Address: [address] [place] [address] Performed By: #### 2 4323-8 ####[facility] ERAron [id number] [place] [address] [place] Sodium [Moles/Vol] 136 mmol/L Normal 136-144 [facility] Comment on above: Order Comment: Speci men Type: BLOOD SPECIMENOrdering Facility: [facility] Address: [address] [id number] Performed By: #### 2 4323-8 ####[facility]ENTERWNCLIA [id number] [place] [address] [place] Urea nitrogen [Mass/Vol] 14 mg/dL Normal 7-21 [facility] Comment on above: Order Comment: Speci men Type: BLOOD SPECIMENOrdering Facility: [facility] Address: [facility] [address] [place] [id number] Performed By: #### 2 4323-8 ####[facility] [id number] [place] [address] [place] SCRN MAMM (CAD)W/MI BILATo n 01-09-2024 SCRN MAMM (CAD)W/MI BILAT [facility] Imaging Services [address] [place] [address] SCRN MAMM (CAD)W/MI BILAT MR#: [id number] Acct: [id number] Name: NEELNORILIBIA TELLES FRIDA Rep #: [id number] : 1975 F 48 From: Chau Martinez MD PCP: Dr. Krystina Calle DO Status: [facility] Study: SCRN MAMM (CAD)W/MI BILAT Date of Exam: 12/23 10/15 Exam# [id number] Ordering Dr: Krystina Calle DO [id number] MAMMOGRAPHY - BILATERAL SCREENING 3-D TOMOSYNTHESIS REASON FOR EXAM: Female, 48 years old. SCREENING PERTINENT HISTORY: No significant family history. TECHNIQUE: 2-D mammograms and 3-D Tomosynthesis of the breast (s) were performed. CAD was performed. COMPARISON: 01/07/2023 FINDINGS: The breast composition is composed of scattered fibroglandular density. Scattered benign calcifications are seen. No dense spiculated masses or suspicious microcalcifications are identified. No architectural distortion is identified. There is no skin thickening or retraction. There has been no significant change since the prior study. BI/SCRN MAMM (CAD)W/MI BILAT IMPRESSION: No mammographic signs of malignancy. Routine yearly mammograms recommended. ASSESSMENT CATEGORY: BIRADS Category 1: Negative. A letter regarding these results will be sent to the patient by the facility within 30 days. FOLLOW UP RECOMMENDATION: Yearly follow up mammogram recommended. (A) Approximately 10% of breast cancers are not detected by mammography. A normal mammogram should not delay biopsy of a clinically suspicious abnormality. Electronically Signed: Chau Martinez MD at 13:23 EDT , CC: Dr. Krystina Calle DO Dye Box Operator: Signed Normal [facility] C[facility] Telephone (HEMAWS) LIBIA OLIVAS ([id number]) 1975 F Date Time Provider Department 11/04/23 FABIANO LIZ During your visit today, we recorded the following information about you: Alisha Romero LPN 11/04/2023 3:53 PM Addendum Per OV note 10/30/2023- Intolerant to oral iron. Iron study result received from [facility]. Patient is iron deficient. Patient prefers to have her iron infusions at [facility] d/t insurance. Orders and demographics faxed to [facility] Infusion Suite. Patient is aware. Alisha Romero LPN Allergies As of Date: 11/04/2023 Noted Allergy Reaction IV DYE (IODINATED CONTRAST MEDIA) 07/25/2022 4 - Hives 7 - Swelling NUBAIN (NALBUPHINE HCL) 05/23/2015 11 - Vomiting Date Reviewed: 10/30/2023 Reviewed by: Fabiano Liz DO - Fully Assessed Reason for Visit: Orders [681] Prescriptions as of 11/04/2023 - allopurinol (ZYLOPRIM) 300 mg tablet Take 1 tablet by mouth once daily. - potassium chloride (K-TAB) 10 mEq tablet Take 1 tablet by mouth once daily. Daily, If using Lasix BID - bosutinib (BOSULIF) 400 mg tablet Take 1 tablet once daily with food. - acetaminophen (TYLENOL) 325 mg tablet Take 325 mg by mouth every 6 hours as needed. - Ibuprofen 200 mg cap Take by mouth every 6 hours as needed. - furosemide (LASIX) 20 mg tablet Take 1 tablet by mouth once daily. - ondansetron (ZOFRAN) 8 mg tablet Take 1 tablet by mouth every 8 hours as needed (For chemotherapy induced nausea and vomiting). - levothyroxine (SYNTHROID) 125 mcg tablet Take 125 mcg by mouth once daily. Facility-Administered Medications as of 11/04/2023 - perflutren lipid microspheres 1.3 mL in NaCl (PF) 0.9% 10 mL injection (DEFINITY) - sodium chloride 0.9 % (flush) 10 mL (BD POSIFLUSH) Problem List As Of Date 11/04/2023 Noted Resolved Other Specified Disorder of Gallbladder [K82.8] 09/07/2009 Sebaceous cyst [L72.3] 05/23/2015 Melanocytic nevi of scalp and neck [D22.4] 05/23/2015 Intradermal nevus [D23.9] 06/14/2015 Encounter Status:Closed by ALISHA ROMERO on 11/04/23 Normal [facility] Colonoscopy Reporton 024 Colonoscopy [address] [facility] Medical Records Department [address] [place] [address] Colonoscopy Report MR#: [id number] Acct: [id number] Name: NEELNORILIBIA TELLES FRIDA Rep #: [id number] : 1975 48 From: Ugo Kelley DO PCP: Dr. Krystina Calle DO Status:[facility] Patient Name: Libia Olivas Procedure Date: 11/04/2023 7:58 AM Date of : 1975 Age: 48 Procedure: Colonoscopy Indications: Screening for colorectal malignant neoplasm Providers: Ugo Kelley DO Referring MD: Krystina Calle Medicines: Monitored Anesthesia Care Patient Profile: This is a 48 year old female. Refer to note in patient chart for documentation of history and physical. Last Colonoscopy: 10 years ago. Complications: No immediate complications. Procedure: Pre-Anesthesia Assessment: - Prior to the procedure, a History and Physical was performed, and patient medications and allergies were reviewed. The patient is competent. The risks and benefits of the procedure and the sedation options and risks were discussed with the patient. All questions were answered and informed consent was obtained. Patient identification and proposed procedure were verified by the physician in the pre-procedure area. Mental Status Examination: alert and oriented. Airway Examination: normal oropharyngeal airway and neck mobility. Respiratory Examination: clear to auscultation. CV Examination: normal. Prophylactic Antibiotics: The patient does not require prophylactic antibiotics. Prior Anticoagulants: The patient has taken no anticoagulant or antiplatelet agents. ASA Grade Assessment: II - A patient with mild systemic disease. After reviewing the risks and benefits, the patient was deemed in satisfactory condition to undergo the procedure. The anesthesia plan was to use monitored anesthesia care (MAC). Immediately prior to administration of medications, the patient was re-assessed for adequacy to receive sedatives. The heart rate, respiratory rate, oxygen saturations, blood pressure, adequacy of pulmonary ventilation, and response to care were monitored throughout the procedure. The physical status of the patient was re-assessed after the procedure. After I obtained informed consent, the scope was passed under direct vision. Throughout the procedure, the patient's blood pressure, pulse, and oxygen saturations were monitored continuously. The colonoscope was introduced through the anus and advanced to the cecum, identified by appendiceal orifice and ileocecal valve. The colonoscopy was performed without difficulty. The patient tolerated the procedure well. The quality of the bowel preparation was adequate. The terminal ileum, ileocecal valve, appendiceal orifice, and rectum were photographed. Scope In: 8:07:01 AM Scope Withdrawal Time 0 hours 9 minutes 13 seconds Scope Out: 8:18:58 AM Total Procedure Duration Time 0 hours 11 minutes 57 seconds Findings: The perianal and digital rectal examinations were normal. Multiple small-mouthed diverticula were found in the recto-sigmoid colon and sigmoid colon. No additional abnormalities were found on retroflexion. The exam was otherwise without abnormality. Impression: - Diverticulosis in the recto-sigmoid colon and in the sigmoid colon. - The examination was otherwise normal. - No specimens collected. Recommendation: - Discharge patient to home. - Resume previous diet. - Continue present medications. - Repeat colonoscopy in 10 years for screening purposes. Procedure Code(s): --- Professional --- G0121, Colorectal cancer screening; colonoscopy on individual not meeting criteria for high risk CPT copyright 2021 [place] [employer]. All rights reserved. The codes documented in this report are preliminary and upon assembler dc field ring review may be revised to meet current compliance requirements. Ugo Kelley DO 11/04/2023 8:24:14 AM This report has been signed electronically. Number of Addenda: 0 Note Initiated On: 11/04/2023 7:58 AM 11/04/23823 Date Ugo Kelley DO Cosigner Signature: Date (if indicated) CC: Dr. Krystina Calle DO; Ugo Kelley DO Date Dictated: 11/04/23757 Date Transcribed: Dye Box Operator: MISHA Signed [facility] MR/POSTOP.[facility] 11-04-2023 MR/POSTOP.[facility] Medical Records Department [address] [place] [address] Anesthesia Postop Eval I 11/04/23824 MR#: [id number] Acct: [id number] Name: NEELNORILIBIA TELLES FRIDA Rep #: [id number] : 1975 48 From: Tulio Pond PCP: Dr. Krystina Calle DO Status:REG SDC Y Race: C Location: [address] Anesthesia: Postop Eval I Current Vital Signs Temperature: 97.2 F Pulse Rate: 68 Blood Pressure: 98/59 Respiratory Rate: 16 Pulse Ox: 96 Oxygen Delivery Method: Room Air Assessment Airway patent: Yes Spontaneous unlabored respirations: Yes Mental status: Awake and Calm nausea: No Vomiting: No Anesthesia Complication: No Fluid Hydration Crystalloid volume administer (ml): 600 Total IV fluid infused: 600 Progress Note Anesthesia document: Postop Eval 1 completed: Yes 11/04/23825 Tulio Moreno Signature: Date CC: Signed Normal [facility] MR/OHTAPNTK2fj 11-04-2023 MR/POSTOPAN2 [facility] Medical Records Department [address] [facility] [place] [address] Anesthesia Postop Eval II 11/04/23 1144 MR#: [id number] Acct: [id number] Name: LIBIA OLIVAS FRIDA Rep #: [id number] : 1975 48 From: Christian Roberts MD PCP: Dr. Krystina Calle, DO Status:[facility] Y Race: C Location: EN Anesthesia Postop Eval I Sum Postop Eval Completion status Anesthesia document: Postop Eval 1 completed: Yes Anesthesia Postop Eval I Summary Anesthesia Postop Eval I Summary: Anesthesia Postop Eval I: Assessment Summary Airway patent Yes 11/04/23 08:25 [email or web address] Spontaneous unlabored Yes 11/04/23 08:25 [email or web address] respirations Mental status Awake,Calm 11/04/23 08:25 [email or web address] nausea No 11/04/23 08:25 [email or web address] Vomiting No 11/04/23 08:25 [email or web address] Anesthesia Postop Eval I: Fluid Summary Crystalloid volume administer 600 11/04/23 08:25 [email or web address] (ml) Colloids volume administered ( ml) Blood Product volume administered (ml) Total IV fluid infused 600 11/04/23 08:25 [email or web address] Anesthesia Postop Eval I: Summary Notes Anesthesia Complication No 11/04/23 08:25 [email or web address] Anesthesia Complication Comment: Post-operative progress note Anesthesia: Postop Eval II Evaluation Mental status: Awake and Calm Pain Level: 0 nausea: No Vomiting: No Complications Anesthesia Complication: No 11/04/23 1145 Date Christian Robledoignshane Signature: Date CC: Signed Normal [facility] CNOVSPon 10-30-2023 CNOVSP Visit (SP) Office (H EMAWS) LIBIA OLIVAS ([id number]) 1975 F Date Time Provider Department 10/30/23 8:30 AM AFBIANO LIZ During your visit today, we recorded the following information about you: Temperature Pulse Blood pressure Weight 98.5 degrees 65/minute 135/78 108.2 kg Fabiano Liz DO 10/30/2023 9:05 AM Signed Diagnosis: 1) Chronic phase CML. HPI: The patient is a 48-year-old female with past medical history significant for hypothyroidism, sleep apnea (CPAP) and obesity. Was in [place]. On return had found to have elevated triglycerides when had labs done by Dr. Mckeon as part of screening labs for weight loss medications. Had recheck of triglycerides (and a CBC since hadn't had in a year) at [facility] and incidental leukocytosis with WBC count 135.68K. Hgb and platelets normal. Recheck at [facility] 07/21/2022 revealed total white count 131.8 thousand. Hemoglobin 12.3 g/dL. Platelet count 211,000. Absolute neutrophil count 90,000. Absolute lymphocyte count 8000. 15% bands, 2% monocytes, 3% eosinophils, 6% metamyelocytes, 5% myelocytes, 3% promyelocytes and 6% blasts were quantitated on the differential. She does not have any chronic recurring fever or drenching night sweats. Normal appetite. No early satiety. No left upper quadrant pain. No bleeding issues or unexplained bruising. Had partial hysterectomy previously. No longer has menses. No history of cardiac disease, renal disease or pancreatic disease. No chronic respiratory illnesses. Uses omeprazole on occasion as needed. Current therapy: 1) Bosutinib. Began 08/11/2022. Presents for ongoing oncologic management. Interim history: AKERS continues. Currently on cipro for UTI. Symptoms getting better. PMH, medications and allergies personally reviewed by me today. Any changes documented in appropriate section. ROS: Constitutional: See HPI. Neuro: Denies BAÑUELOS, vertigo, dizziness and imbalance. Denies symptoms of neuropathy. HEENT: No recent change in voice, vision or hearing. Resp: Denies cough, wheeze and hemoptysis. Denies shortness of breath at rest. CVS: Denies exertional chest pain, PND, orthopnea and LE edema. GI: See HPI. : Denies dysuria or gross hematuria. No symptoms of bladder outlet obstruction. Endo: Denies hot flashes. Denies polyuria and polydipsia. Denies heat and cold intolerance. Musculoskeletal: Chronic right posterior hip pain. Derm: See HPI. Heme: Denies unusual bleeding and unexplained bruising. Psych: Normal mood. PHYSICAL EXAM: Vitals: Blood pressure 135/78, pulse 65, temperature 36.9 ?C (98.5 ?F), temperature source Temporal, weight 108.2 kg (238 lb 8 oz), SpO2 98%. Well-appearing and in no acute distress. EYES: Sclerae are anicteric bilaterally. LYMPHATIC: There is no palpable cervical, supraclavicular, axillary adenopathy. RESPIRATORY: Inspiratory breath sounds are of normal intensity in all thakur. No rales, wheezes or rhonchi. CARDIOVASCULAR: Rhythm is regular. ABDOMEN: The abdomen is nondistended. Cannot appreciate splenomegaly. Extremities: No swelling currently. SKIN: No jaundice. LABS: Latest Ref Rng 10/23/2023 WBC 3.70 - 11.00 k/uL 9.47 RBC 3.90 - 5.20 m/uL 4.79 Hemoglobin 11.5 - 15.5 g/dL 12.3 Hematocrit 36.0 - 46.0 % 38.5 MCV 80.0 - 100.0 fL 80.4 MCH 26.0 - 34.0 pg 25.7 (L) MCHC 30.5 - 36.0 g/dL 31.9 RDW-CV 11.5 - 15.0 % 14.2 Platelet Count 150 - 400 k/uL 243 MPV 9.0 - 12.7 fL 10.7 Neut% % 75.4 Abs Neut (ANC) 1.45 - 7.50 k/uL 7.14 Lymph% % 16.8 Abs Lymph 1.00 - 4.00 k/uL 1.59 Robeson% % 5.5 Abs Robeson <0.87 k/uL 0.52 Eosin% % 1.6 Abs Eosin <0.46 k/uL 0.15 Baso% % 0.5 Abs Baso <0.11 k/uL 0.05 Immature Gran % % 0.2 IMMATURE GRANS (ABS) <0.10 k/uL <0.03 NRBC /100 WBC 0.0 Absolute nRBC <0.01 k/uL <0.01 DTYPE Auto Protein, Total 6.3 - 8.0 g/dL 6.3 Albumin 3.9 - 4.9 g/dL 4.3 Calcium 8.5 - 10.2 mg/dL 8.8 Bilirubin, Total 0.2 - 1.3 mg/dL 0.4 Alkaline Phosphatase 34 - 123 U/L 79 AST 13 - 35 U/L 16 ALT 7 - 38 U/L 29 Glucose 74 - 99 mg/dL 118 (H) BUN 7 - 21 mg/dL 10 Creatinine 0.58 - 0.96 mg/dL 0.70 Sodium 136 - 144 mmol/L 140 Potassium 3.7 - 5.1 mmol/L 3.8 Chloride 98 - 107 mmol/L 107 CO2 22 - 30 mmol/L 23 Anion Gap 8 - 15 mmol/L 10 eGFR >=60 mL/min/1.73m? 108 ASSESSMENT/PLAN: (C92.10) CML (chronic myelocytic leukemia) (HCC) (primary encounter diagnosis) (R06.00, R06.89) Dyspnea and respiratory abnormalities (K21.9) Gastroesophageal reflux disease, unspecified whether esophagitis present Assessment: -The patient is a 48-year-old female incidentally found to have leukocytosis with immature granulocytes and mild splenomegaly suggestive of CML. She had not had any bleeding or bruising issues. No recent illnesses at the time of presentation. No fever, night sweats or early satiet (more content not included)... Normal [facility] Ferritinon 10-30-2023 Ferritin [Mass/Vol] 42 ng/mL Normal 8-252 [facility] Comment on above: Performed By: #### L 503.6550, L503.6030 #### [facility] [address] [place], [address] Iron+Iron Binding Capacityon 10-30-2023 Iron [Mass/Vol] 40 ug/dL Low 50-170 [facility] Comment on above: Performed By: #### L 503.6550, L503.6030 #### [facility] [address] [place], [address] IRON SATURATION 10.5 Low 15.0-55.0 [facility] Comment on above: Performed By: #### L 503.6550, L503.6030 #### [facility] [address] [place], [address] TIBC 380 ug/dL Normal 250-450 [facility] Comment on above: Performed By: #### L 503.6550, L503.6030 #### [facility] [address] [place], [address] COVID & INFLUENZA A/B & RSV NAAT, ROUTINEon 06-11-2023 FLUAV RNA ABBIE+probe Ql (Unsp spec) Detected Abnormal Not Detected [facility] FLUBV RNA ABBIE+probe Ql (Unsp spec) Not detected Not Detected [facility] RSV A RNA ABBIE+probe Ql (Unsp spec) Not detected Not Detected [facility] SARS-CoV-2 (COVID-19) RNA ABBIE+probe Ql (Resp) Not detected See comment [facility] No Panel Informationon 04-26 [facility] FERRITIN BLDon 10-23-2022 Ferritin [Mass/Vol] 109.0 ng/mL 14.7 - 205.1 ng/mL [facility] Iron and Iron binding capaci ty panelon 10-23-2022 Iron [Mass/Vol] 39 ug/dL Low 41 - 186 ug/dL [facility] Iron binding capacity [Mass/Vol] 325 ug/dL 232 - 386 ug/dL [facility] Iron/TIBC [Molar ratio] 12.0 % Low 15.0 - 57.0 % [facility]2022 Lipase [Catalytic activity/Vol] 38 U/L 16 - 61 U/L [facility] T4 FREE/FREE THYROXon 2022 Free T4 [Mass/Vol] 1.4 ng/dL 0.9 - 1.7 ng/dL [facility] TSH [facility] 10-23-2022 TSH Qn 0.762 m[IU]/L 0.270 - 4.200 mIU/L [facility]ESIUM [facility] 10-22-2022 Magnesium [Mass/Vol] 2.2 mg/dL 1.7 - 2 .3 mg/dL [facility] PHOSPHORUS INORGANICon 10-22 Phosphate [Mass/Vol] 3.6 mg/dL 2.7 - 4 .8 mg/dL [facility] XR CHEST 2V FRONTAL/LATon [facility] XR CHEST 2V FRONTAL/LATon [facility] XR Chest PA and Lateralon IMPRESSION: Within normal limits. No acute radiographic abnormality. Dye Box Operator: CHRISTINA Transcribe Date/Time: Aug 27 2022 5:37P Dictated by : LEN BONNER MD This examination was interpreted and the report reviewed and electronically signed by: LEN BONNER MD on Aug 27 2022 5:37PM [facility] DIVISION OF RADIOLOGY * * *Final Report* * * DATE OF EXAM: Aug 27 2022 5:35PM WOX [id number] - XR CHEST 2V FRONTAL/LAT / PROCEDURE REASON: Acute cough * * * * Physician Interpretation * * * * EXAMINATION: CHEST RADIOGRAPH (2 VIEW FRONTAL & LATERAL), 08/27/2022 CLINICAL HISTORY: Acute cough MQ: XC2_6 EXAM DATE/TIME: 08/27/2022 5:35 PM COMPARISON: No relevant prior studies available. RESULT: Lines, tubes, and devices: None. Lungs and pleura: The lungs appear clear. No pleural effusion. No pneumothorax. Cardiomediastinal silhouette: Normal cardiomediastinal silhouette. Bones and soft tissues: Mild degenerative changes in the thoracic spine. DIVISION OF RADIOLOGY Provider, Jennifer Genao [facility] - 08/27/2022 * * *Final Report* * * DATE OF EXAM: Aug 27 2022 5:35PM WOX [id number] - XR CHEST 2V FRONTAL/LAT / PROCEDURE REASON: Acute cough * * * * Physician Interpretation * * * * EXAMINATION: CHEST RADIOGRAPH (2 VIEW FRONTAL & LATERAL), 08/27/2022 CLINICAL HISTORY: Acute cough MQ: XC2_6 EXAM DATE/TIME: 08/27/2022 5:35 PM COMPARISON: No relevant prior studies available. RESULT: Lines, tubes, and devices: None. Lungs and pleura: The lungs appear clear. No pleural effusion. No pneumothorax. Cardiomediastinal silhouette: Normal cardiomediastinal silhouette. Bones and soft tissues: Mild degenerative changes in the thoracic spine. IMPRESSION IMPRESSION: Within normal limits. No acute radiographic abnormality. Dye Box Operator: PSCB Transcribe Date/Time: Aug 27 2022 5:37P Dictated by : LEN BONNER MD This examination was interpreted and the report reviewed and electronically signed by: LEN BONNER MD on Aug 27 2022 5:37PM EST [facility] Radiology Study observation (narrative) [facility] XR Chest PA and LateralOrder ed By: [facility] Provider on 08-27-2022 [facility] BONE MARROW ANALYSISon 07-27 Case Report Bone Marrow Patholog y Report Case: [id number] Authorizing Provider: Fabiano Liz DO Collected: 07/25/2022 12:40 PM Ordering Location: Hematology/Oncology Received: 07/25/2022 02:43 PM Pathologist: Flora Rosas MD Specimens: A) - BONE MARROW ASPIRATE RIGHT POSTERIOR ILIAC CREST B) - BONE MARROW BIOPSY RIGHT POSTERIOR ILIAC CREST C) - BONE MARROW CLOT RIGHT POSTERIOR ILIAC CREST [facility] Diagnosis Comment The patient is a 47-year-old female presenting with marked peripheral blood leukocytosis with left shift. Morphologic review demonstrates a markedly hypercellular bone marrow (greater than 90%) showing marked granulocytic hyperplasia with left shift. There is no evidence of increase in blasts or basophils. Molecular BCR::ABL1 quantitative PCR studies performed on the peripheral blood were positive, detecting high levels of BCR::ABL1 p210 fusion transcripts. Overall, the findings are diagnostic of chronic myeloid leukemia (2021 ICC and 2021 WHO). Correlation with the clinical findings and the results of the pending cytogenetic and molecular studies is recommended. [facility] FINAL DIAGNOSIS A-C. Bone marrow, as pirate smear, touch imprint and core biopsy, with clot section: - Chronic myeloid leukemia. - Stainable iron is decreased. - See comment. July 27, 2022 [facility] Gross Description A. BONE MARROW ASPIR ATE RIGHT POSTERIOR ILIAC CREST Received are air-dried bone marrow aspirate smears. Submitted for light microscopy. B. BONE MARROW BIOPSY RIGHT POSTERIOR ILIAC CREST Received in formalin is one segment of cylindrical tissue measuring 1.7 x 0.4 x 0.3 cm, roach and of a firm consistency. Totally submitted in one cassette after decalcification. Bone marrow touch imprints also received. Submitted for light microscopy. C. BONE MARROW CLOT RIGHT POSTERIOR ILIAC CREST Received in formalin is one segment of red, hemorrhagic material measuring 2.3 x 1.8 x 0.9 cm. Totally submitted in one cassette. Gross examination performed at [facility], [address] [place] [address] FFS 07/25/2022 7:59 PM [facility] Microscopic Description PERIPHERAL BLOOD: CBC (07/25/2022 11:07 AM) Diff: Manual WBC 134.09 k/uL Neutrophils % 63 Hemoglobin 11.9 g/dL Lymphocytes % 5 MCV 89.3 fL Monocytes % 6 RDW-CV 17.2 % Eosinophils % 0 Platelet Count 220 k/uL Basophils % 1 Other: 10% Friendship, 14% Myelo, 1% Blasts Morphology/Interpretation: A peripheral blood smear is not available for review. BONE MARROW ASPIRATE: Result Normal Range 2 % Blasts 0-2 6 % Promyelocytes 1-5 74 % Myelos/Metas/Bands/Segs 32-72 6 % Eosinophils 1-6 1 % Basophils 0-1 3 % Monocytes 0-4 6 % Erythroid precursors 13-37 2 % Lymphocytes 7-23 0 % Plasma cells 0-2 Myeloid/Erythro (1.5-4): 12 Cells counted: 300. Iron stain result: Stainable iron is decreased. No ring sideroblasts are seen. Specimen Quality: Adequately spicular and hypercellular aspirate smears. Megakaryocytes: Present, morphologically unremarkable forms and dwarf megakaryocytes seen. Erythropoiesis: Significantly reduced in number, show progressive maturation. Granulopoiesis: Markedly increased number, showing progressive maturation with left shift. Other: Blasts and basophils are not increased. BONE MARROW BIOPSY: Adequacy: Adequate, but with aspiration artifact. Cellularity: Markedly increased (greater than 90%). ME ratio: Markedly increased. Hematopoiesis: Marked granulocytic hyperplasia with left shift. Megakaryocytes: Adequate. 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 Lymphoid infiltrate: No aggregates. Bone trabeculae: Unremarkable. CLOT SECTION: Marrow particles: Many. Morphology: Similar to biopsy. ANCILLARY TESTS: Flow cytometry: Performed. See associated flow cytometry report [id number]. Cytogenetics: Pending. FISH: Not performed. Molecular: Buffy coat stored. BCR::ABL1 quantitative PCR studies performed on the peripheral blood were positive, detecting high levels of BCR::ABL1 p210 fusion transcripts. [facility] Performing Lab Diagnostic interpret ation performed at [facility], [address] [place] [address] CLIA# [id number] Program Manager Rn: Jesus Sands M.D. [facility] FLOW CYTOMETRY BONE MARROW R EFLEXon 07-27-2022 Case Report Flow Cytometry Case: [id number] Authorizing Provider: Fabiano Liz DO Collected: 07/25/2022 01:17 PM Ordering Location: Hematology/Oncology Received: 07/26/2022 09:23 AM Pathologist: Flora Rosas MD Specimen: Bone Marrow [facility] Diagnosis Comment This assay is not de signed to detect minimal residual disease, plasma cell neoplasms, or myeloid antigen maturational patterns. This test was developed and its performance characteristics determined by [facility]'s Ezra JBriseyda [facility] Pathology and Laboratory Medicine [place] ([facility]). It has not been cleared or approved by the FDA. [facility] is regulated under CLIA as qualified to perform high-complexity testing. This test is used for clinical purposes. It should not be regarded as investigational or for research. [facility] Gross Description A. Bone Marrow Received 8 mL bone marrow in sodium heparin. [facility] Interpretation There is no evidence of involvement by a lymphoproliferative disorder or abnormal blast population. There is a notable granulocytic predominance. Correlation with the clinical and bone marrow histopathologic findings is suggested. [facility] Performing Lab Diagnostic interpret ation performed at [facility], [address] [place] [address] CLIA# [id number] Program Manager Rn: Jesus Sands M.D. [facility] Results Specimen type: Bone marrow aspirate Morphology comments: See associated bone marrow pathology report [id number]. Viability: 89% Flow Cytometry Bone Marrow Immunophenotyping Marker Normal Cell Type Result (Lymphocytes) CD3 T-cells Normal Pattern CD4 T-cell subset Normal Pattern CD5 T-cells Normal Pattern CD7 T/NK-cells Normal Pattern CD8 T-cell subset Normal Pattern CD13 Myeloid Normal Pattern CD16/56 NK cells Normal Pattern CD19 B-cells Normal Pattern CD34 Blasts Normal Pattern CD45 Dejesus-leukocyte Normal Pattern kappa/lambda B-cells Normal Pattern Flow cytometric analysis of the bone marrow aspirate reveals that 1% of total events have the CD45 and light scatter properties of lymphocytes. The lymphocytes are composed of T cells (84%, CD4:CD8 ratio = 1.88), NK cells (less than 1%) and polytypic B cells (14%). Granulocytic elements are 90% of events. Blasts are not increased. SB/NZ 07/26/2022 [facility] FLOW CYTOMETRY BONE MARROW H OLD (BMHOLD)on 07-26-2022 Flow Cytometry Order Status See Results in chart under F case ID [facility] ACTIVATED PTTon 07-23-2022 aPTT Coag (PPP) [Time] 24.8 s 23.0 - 32.4 sec [facility] Comprehensive metabolic 2000 panelon 07-23-2022 Albumin [Mass/Vol] 4.7 g/dL 3.9 - 4.9 g/dL [facility] ALP [Catalytic activity/Vol] 92 U/L 34 - 123 U/L [facility] ALT [Catalytic activity/Vol] 38 U/L 7 - 38 U/L [facility] Anion gap [Moles/Vol] 13 mmol/L 9 - 18 mmol/L [facility] AST [Catalytic activity/Vol] 25 U/L 13 - 35 U/L [facility] Bilirubin [Mass/Vol] 0.4 mg/dL 0.2 - 1 .3 mg/dL [facility] Calcium [Mass/Vol] 9.1 mg/dL 8.5 - 10. 2 mg/dL [facility] Chloride [Moles/Vol] 105 mmol/L 97 - 10 5 mmol/L [facility] CO2 [Moles/Vol] 22 mmol/L 22 - 30 mmol/L [facility] Creatinine [Mass/Vol] 0.76 mg/dL 0.58 - 0.96 mg/dL [facility] Estimated Glomerular Filtration Rate 99 mL/min/1.73m >=60 mL/min/1.73 m [facility] Glucose [Mass/Vol] 92 mg/dL 74 - 99 mg/dL [facility] Potassium [Moles/Vol] 3.4 mmol/L Low 3.7 - 5.1 mmol/L [facility] Protein [Mass/Vol] 6.9 g/dL 6.3 - 8.0 g/dL [facility] Sodium [Moles/Vol] 140 mmol/L 136 - 144 mmol/L [facility] Urea nitrogen [Mass/Vol] 12 mg/dL 7 - 21 mg/dL [facility] LD LACTATE DEHYDROon 023 LDH [Catalytic activity/Vol] 771 U/L High 135 - 214 U/L [facility] PT panel Coag (PPP)on 2022 INR Coag (PPP) [Relative time] 1.0 {INR} 0.9 - 1.3 [facility] PT Coag (PPP) [Time] 10.0 s <13.1 sec [facility] RETIC COUNTon 07-23-2022 Reticulocytes (Bld) [#/Vol] 0.94850 10*3/uL High 0.018 - 0.100 M/uL [facility] Reticulocytes (Bld) [#/Vol]o n 07-23-2022 Reticulocytes/100 RBC (Bld) 3.4 % High 0.4 - 2.0 % [facility] URIC ACID BLOODon 07-23-2022 Urate [Mass/Vol] 8.7 mg/dL High 2.5 - 6.6 mg/dL [facility] Absolute lymphocyte countOrd ered By: Dr. Calle on 07-21-2022 Lymphocytes Auto (Unsp spec) [#/Vol] 7.91 10*3/uL 0.83-4.51 [facility] Basophil percentageOrdered B y: Dr. Calle on 07-21-2022 Basophil percentage Not Reportable [facility] Cholesterol [Mass/Vol] 141 mg/dL <200 [facility] Comment on above: <200 mg/dL Desirable 200-240 mg/dL Borderline >240 mg/dL High Risk Neutrophils (Bld) [#/Vol] 90.9 10*3/uL 2.0-7.7 [facility] Triglyceride [Mass/Vol] 300 mg/dL <199 [facility] Comment on above: The drugs N-Acetylcy steine and Metamizole may falsely depress this assay.Serum Triglycerides Reference Interval Normal <150 mg/dL Borderline high 150 - 199 mg/dL High 200 - 499 mg/dL Very High > or = 500 mg/dL WBC (Bld) [#/Vol] 131.8 10*3/uL 4.4-11.0 [facility] Comment on above: CRITICAL VALUE VERIF IED. CALLED TO DR. CALLE07/21/22 0922 Yanely Duran.RESULTS READ BACK BY SAME . Blood band neutrophil count as percentage of total leukocytesOrdered By: Dr. Calle on 07-21-2022 Band form neutrophils/100 WBC (Bld) 15 % 0-5 [facility] Blood blasts/100 leukocytesO rdered By: Dr. Calle on 07-21-2022 Blasts/100 WBC (Bld) 6 % 0-0 [facility] Comment on above: RESULTS CALLED TO DR Briseyda CALLE 07/21/22 1042 Yanely Duran.REPORT READ BACK BY [].Previous reported result: 6 %Edited by: OSCAR on 07/21/22:1046 AMENDED REPORT 07/21/22 1046 BLAST previously reported as: 6 *H % Blood eosinophils/100 leukoc ytesOrdered By: Dr. Calle on 07-21-2022 Eosinophils/100 WBC (Bld) 3 % 0-5 [facility] Blood erythrocytes count (nu mber/volume)Ordered By: Dr. Calle on 07-21-2022 RBC (Bld) [#/Vol] 4.25 10*6/uL 4.2-5.4 [facility] Blood hemoglobin measurement (mass/volume)Ordered By: Dr. Calle on 07-21-2022 Hemoglobin (Bld) [Mass/Vol] 12.3 g/dL 12.0-15.0 [facility] Blood lymphocytes/100 leukoc ytesOrdered By: Dr. Calle on 07-21-2022 Lymphocytes/100 WBC (Bld) 6 % 19-41 [facility] Blood metamyelocytes/100 nancy kocytesOrdered By: Dr. Calle on 07-21-2022 Metamyelocytes/100 WBC (Bld) 6 % 0-1 [facility] Blood monocytes/100 leukocyt esOrdered By: Dr. Calle on 07-21-2022 Monocytes/100 WBC (Bld) 2 % 0-10 [facility] Blood platelet adequacy dete ction by light microscopyOrdered By: Dr. Calle on 07-21-2022 Platelets LM Ql (Bld) ADEQUATE ADEQ [facility] Blood platelet mean volumeOr dered By: Dr. Calle on 07-21-2022 Platelet mean volume (Bld) [Entitic vol] 10.2 fL 6.2-12.0 [facility] Blood promyelocytes/100 leuk ocytesOrdered By: Dr. Calle on 07-21-2022 Promyelocytes/100 WBC (Bld) 3 % 0-0 [facility] Blood segmented neutrophils/ [address]: [address] Calle on 07-21-2022 Segmented neutrophils/100 WBC (Bld) 54 % 47-70 [facility] Determination of erythrocyte mean corpuscular volume (MCV)Ordered By: Dr. Calle on 07-21-2022 MCV (RBC) [Entitic vol] 92.9 fL 81-99 [facility] Hematocrit Auto (Bld) [Volum e fraction]Ordered By: Dr. Calle on 07-21-2022 Hematocrit (Bld) [Volume fraction] 39.5 % 37-47 [facility] Laboratory - Hematology and Cell countsOrdered By: Dr. Calle on 07-21-2022 Erythrocyte distribution width (RBC) [Entitic vol] 59.3 fL 35.1-43.9 [facility] Erythrocyte distribution width (RBC) [Ratio] 17.4 % 11.6-14.6 [facility] MCH (RBC) [Entitic mass] 28.9 pg 27.0-32.0 [facility] Myelocytes/100 WBC (Bld) 5 % 0-0 [facility] MCHC Auto (RBC) [Mass/Vol]Or dered By: Dr. Calle on 07-21-2022 MCHC (RBC) [Mass/Vol] 31.1 g/dL 32-36 [facility] Platelets bldOrdered By: Dr. Calle on 07-21-2022 Platelets (Bld) [#/Vol] 211 10*3/uL 150-450 [facility] RBC morphologyOrdered By: Dr Briseyda Calle on 07-21-2022 RBC morphology finding Nom (Bld) NORM C+C NORMAL NORM C&C [facility] Review by pathologistOrdered By: Dr. Calle on 07-21-2022 Pathologist review Martinez (Unsp spec) [Interp] Reviewed [facility] Comment on above: Previous reported re sult: Gayle jefferson Edited by: RGOOD on 07/24/22:0955Neutrophilic leukemoid reaction with left shift. Immature cells consistent with blasts.NRBCs are noted.Clinical correlation necessary.Erik Jarrett M.D. 07/24/22This case was reviewed with Dr. Torres who concurs with the above diagnosis.This case is discussed with Dr. Calle and Dr. Liz on 07/23/22. AMENDED REPORT 07/24/22 0955 PATH REV previously reported as: Gayle jefferson Serum or plasma cholesterol in HDL measurement (mass/volume)Ordered By: Dr. Calle on 07-21-2022 Cholesterol in HDL [Mass/Vol] 24 mg/dL >40 [facility] Comment on above: The drugs N-Acetylcy steine and Metamizole may falsely depress this assay. Reference Range HDL <40 mg/dL Low HDL Cholesterol HDL >or= 60 mg/dL High HDL Cholesterol Serum or plasma cholesterol in VLDL measurement (mass/volume)Ordered By: Dr. Calle on 07-21-2022 Cholesterol in VLDL [Mass/Vol] 60 mg/dL 5-40 [facility] Serum or plasma low density lipoprotein (LDL) cholesterol measurement (mass/volume)Ordered By: Dr. Calle on 07-21-2022 Cholesterol in LDL [Mass/Vol] 57 mg/dL 0-130 [facility] Total cell countOrdered By: Dr. Calle on 07-21-2022 Cells counted Molgen (Bld/Tiss) [#] 100 MANUAL DIFF [facility] Basophil percentageOrdered B y: Dr. Mckeon on 06-16-2022 Cholesterol [Mass/Vol] 151 mg/dL <200 [facility] Comment on above: <200 mg/dL Desirable 200-240 mg/dL Borderline >240 mg/dL High Risk Glucose [Mass/Vol] 108 mg/dL 74-106 [facility] Comment on above: Fasting Glucose resu lt from 100 to 125 mg/dL suggests IMPAIRED HOMEOSTASIS per A.D.A. criteria. Triglyceride [Mass/Vol] 351 mg/dL <199 [facility] Comment on above: The drugs N-Acetylcy steine and Metamizole may falsely depress this assay.Serum Triglycerides Reference Interval Normal <150 mg/dL Borderline high 150 - 199 mg/dL High 200 - 499 mg/dL Very High > or = 500 mg/dL Serum or plasma calcitriol m easurement (mass/volume)Ordered By: Dr. Mckeon on 06-16-2022 1,25-dihydroxyvitamin D3 [Mass/Vol] 43.8 pg/mL 24.8-81.5 [facility] Comment on above: Performed at: [address] [id number] Director: Anette Johnson MD, Phone: [phone] Serum or plasma cholesterol in HDL measurement (mass/volume)Ordered By: Dr. Mckeon on 06-16-2022 Cholesterol in HDL [Mass/Vol] 23 mg/dL >40 [facility] Comment on above: The drugs N-Acetylcy steine and Metamizole may falsely depress this assay. Reference Range HDL <40 mg/dL Low HDL Cholesterol HDL >or= 60 mg/dL High HDL Cholesterol Serum or plasma cholesterol in VLDL measurement (mass/volume)Ordered By: Dr. Mckeon on 06-16-2022 Cholesterol in VLDL [Mass/Vol] 70 mg/dL 5-40 [facility] Serum or plasma low density lipoprotein (LDL) cholesterol measurement (mass/volume)Ordered By: Dr. Mckeon on 06-16-2022 Cholesterol in LDL [Mass/Vol] 58 mg/dL 0-130 [facility] Whole blood hemoglobin A1c/t otal hemoglobin ratio (mass fraction)Ordered By: Dr. Mckeon on 06-16-2022 HbA1c (Bld) [Mass fraction] 5.3 % 3.8-5.6 [facility] Comment on above: Normal < 5.7 % Predi abetic 5.7 - 6.4 % Diabetic >or= 6.5 % Please note range changes. Laboratory - Chemistry and C hemistry - challengeOrdered By: Dr. Mckeon on 03-01-2022 Free T4 [Mass/Vol] 1.20 ng/dL 0.76-1.46 [facility] No Panel InformationOrdered By: Dr. Mckeon on 03-01-2022 Free Triiodothyronine (T3) pg/dL 2.6 pg/mL 2.18-3.98 [facility] Thyroid Stimulating Hormone (TSH) 0.59 uIU/mL 0.358-3.74 [facility] Varicella-Zoster V Ab, IgGon 01-02-2022 Varicella-Zoster V Ab, IgG Assay performed using [employer] CLIA methodology. VARICELLA ZOSTER IGG: Immune Testing Performed At: [facility] [address] [place] [address] [facility] Comment on above: Performed By: #### V ARG #### [facility] (DEFAULT) [address] [place] [address] Absolute lymphocyte counton 07-21-2021 Lymphocytes Auto (Unsp spec) [#/Vol] 1.49 10*3/uL 0.83-4.51 [facility] Work Phone: Basophil percentageon 2021 Basophils/100 WBC (Bld) 0.5 % 0-1 [facility] Work Phone: Bilirubin [Mass/Vol] 0.40 mg/dL 0.20-1.00 [facility] Work Phone: Comment on above: For patients on eltr ombopag therapy, use of Dimension [place] TBIL is not recommended. Chloride [Moles/Vol] 112 mmol/L 98-107 [facility] Work Phone: Eosinophils/100 WBC (Bld) 1.9 % 0-5 [facility] Work Phone: [phone] Glucose [Mass/Vol] 126 mg/dL 74-106 [facility] Work Phone: Comment on above: Fasting Glucose resu lt greater than or equal to 126 mg/dL suggests DIABETES MELLITUS per A.D.A. criteria. Neutrophils (Bld) [#/Vol] 5.3 10*3/uL 2.0-7.7 [facility] Work Phone: [phone] Neutrophils/100 WBC (Bld) 70.3 % 47-70 [facility] Work Phone: Potassium [Moles/Vol] 3.7 mmol/L 3.5-5.1 [facility] Work Phone: [phone] Protein [Mass/Vol] 7.0 g/dL 6.4-8.2 [facility] Work Phone: [phone] Sodium [Moles/Vol] 141 mmol/L 136-145 [facility] Work Phone: [phone] WBC (Bld) [#/Vol] 7.5 10*3/uL 4.4-11.0 [facility] Work Phone: [phone] Blood erythrocytes count (nu mber/volume)on 07-21-2021 RBC (Bld) [#/Vol] 5.06 10*6/uL 4.2-5.4 [facility] Work Phone: [phone] Blood hemoglobin measurement (mass/volume)on 07-21-2021 Hemoglobin (Bld) [Mass/Vol] 13.7 g/dL 12.0-15.0 [facility] Work Phone: [phone] Blood lymphocytes/100 leukoc yteson 07-21-2021 Lymphocytes/100 WBC (Bld) 19.9 % 19-41 [facility] Work Phone: [phone] Blood monocytes/100 leukocyt eson 07-21-2021 Monocytes/100 WBC (Bld) 6.7 % 0-10 [facility] Work Phone: Blood platelet mean volumeon 07-21-2021 Platelet mean volume (Bld) [Entitic vol] 10.2 fL 6.2-12.0 [facility] Work Phone: Determination of erythrocyte mean corpuscular volume (MCV)on 07-21-2021 MCV (RBC) [Entitic vol] 83.2 fL 81-99 [facility] Work Phone: Hematocrit Auto (Bld) [Volum e fraction]on 07-21-2021 Hematocrit (Bld) [Volume fraction] 42.1 % 37-47 [facility] Work Phone: Laboratory - Chemistry and C hemistry - challengeon 07-21-2021 ALP [Catalytic activity/Vol] 84 U/L 45-117 [facility] Work Phone: ALT [Catalytic activity/Vol] 56 U/L 13-56 [facility] Work Phone: CO2 [Moles/Vol] 24.0 mmol/L 21.0-32.0 [facility] Work Phone: Free T4 [Mass/Vol] 1.01 ng/dL 0.76-1.46 [facility] Work Phone: Globulin (S) [Mass/Vol] 3.6 g/dL 2.2-4.2 [facility] Work Phone: Urea nitrogen/Creatinine [Mass ratio] 17.6 mg/mg 10-20 [facility] Work Phone: Laboratory - Hematology and Cell countson 07-21-2021 Erythrocyte distribution width (RBC) [Entitic vol] 40.0 fL 35.1-43.9 [facility] Work Phone: Erythrocyte distribution width (RBC) [Ratio] 13.2 % 11.6-14.6 [facility] Work Phone: Immature granulocytes/100 WBC (Bld) 0.700 % 0.0-0.9 [facility] Work Phone: Comment on above: IG% - Immature Granu locytes (promyelocytes, myelocytes and metamyelocytes) > 1% indicates that a LEFT SHIFT is Present. MCH (RBC) [Entitic mass] 27.1 pg 27.0-32.0 [facility] Work Phone: Nucleated RBC/100 WBC (Bld) [Ratio] 0 % 0-5 [facility] Work Phone: MCHC Auto (RBC) [Mass/Vol]on 07-21-2021 MCHC (RBC) [Mass/Vol] 32.5 g/dL 32-36 [facility] Work Phone: No Panel Informationon 07-21 CA 125 Antigen 22.3 U/mL [facility] Work Phone: Comment on above: [facility] El ectrochemiluminescence Immunoassay(ECLIA)Values obtained with different assay methods or kits cannotbe used interchangeably. Results cannot be interpreted asabsolute evidence of the presence or absence of malignantdisease. Estimated GFR (MDRD) Amer 120 mL/min >60 [facility] Work Phone: Comment on above: GFR Calc Estimated GFR (MDRD) Non-Af Amer 100 mL/min >60 [facility] Work Phone: Comment on above: Non- GFR Calc Free Triiodothyronine (T3) pg/dL 2.1 pg/mL 2.18-3.98 [facility] Work Phone: Thyroid Stimulating Hormone (TSH) 1.18 uIU/mL 0.358-3.74 [facility] Work Phone: Platelets bldon 07-21-2021 Platelets (Bld) [#/Vol] 287 10*3/uL 150-450 [facility] Work Phone: Serum Helicobacter pylori Ig G antibody assay (units/volume)on 07-21-2021 H. pylori IgG Qn (S) 0.59 [facility] Work Phone: Comment on above: Result Units: Index Value Negative <0.80 Equivocal 0.80 - 0.89 Positive >0.89Performed at: [facility] - [facility] [id number] [place], [place] [id number] Director: Raffaele Barrera PhD, Phone: [phone] Serum or plasma albumin emmanuelle urement (mass/volume)on 07-21-2021 Albumin [Mass/Vol] 3.4 g/dL 3.2-5.0 [facility] Work Phone: Serum or plasma albumin/glob ulin mass ratioon 07-21-2021 Albumin/Globulin [Mass ratio] 0.9 {ratio} 0.9-2.4 [facility] Work Phone: Serum or plasma calcium emmanuelle urement (mass/volume)on 07-21-2021 Calcium [Mass/Vol] 8.6 mg/dL 8.5-10.1 [facility] Work Phone: Serum or plasma creatinine m easurement (mass/volume)on 07-21-2021 Creatinine [Mass/Vol] 0.68 mg/dL 0.55-1.02 [facility] Work Phone: Comment on above: The validity of the calculated GFR & GFRAA in patients over 70 years has not been determined. Clinical correlation is essential. Serum or plasma urea nitroge n measurement (mass/volume)on 07-21-2021 Urea nitrogen [Mass/Vol] 12 mg/dL 7-18 [facility] Work Phone: Thin prep Papanicolaou smear with manual screeningon 07-21-2021 Thin prep Papanicolaou smear with manual screening 21 U/L 15-37 [facility] Work Phone: Thin prep Papanicolaou smear with manual screening 5 5-15 [facility] Work Phone: Whole blood hemoglobin A1c/t otal hemoglobin ratio (mass fraction)on 07-21-2021 HbA1c (Bld) [Mass fraction] 5.4 % 3.8-5.6 [facility] Work Phone: Comment on above: Normal < 5.7 % Predi abetic 5.7 - 6.4 % Diabetic >or= 6.5 % Please note range changes. Culture, urineon 07-20-2021 Bacteria identified Cx Nom (U) Positive [facility] Work Phone: BONE MARROW BIOPSY [facility] Vital Signs Date Time Vital Sign Value Performing Clinician Facility 08-20-2024 08:06-0400 Body height 165.[address] Krystina Calle DO Work Phone: [facility] 08-20-2024 08:06-0400 Body mass index (BMI) [Ratio] 38.9 kg/m2 Dr. Krystina Calle DO Work Phone: [facility] 08-20-2024 08:06-0400 Body weight 106.[address] Krystina Calle DO Work Phone: [facility] 07-01-2024 11:00-0400 Body mass index (BMI) [Ratio] 38.06 kg/m2 Fabiano Netsket Work Phone: [facility] 07-01-2024 11:00-0400 Body temperature 98.71 [degF] Fabiano Agilysi DO Work Phone: [facility] 07-01-2024 11:00-0400 Body weight 104.55 kg Fabiano Agilysi DO Work Phone: [facility] 07-01-2024 11:00-0400 Diastolic blood pressure 82 mm[Hg] Fabiano Agilysi DO Work Phone: [facility] 07-01-2024 11:00-0400 Heart rate 73 /min Fabiano Agilysi DO Work Phone: [facility] 07-01-2024 11:00-0400 SaO2% (BldA) [Mass fraction] 97 % Fabiano Agilysi DO Work Phone: [facility] 07-01-2024 11:00-0400 Systolic blood pressure 155 mm[Hg] Fabiano Masci DO Work Phone: [facility] 06-18-2024 10:33-0400 Body mass index (BMI) [Ratio] 38.23 kg/m2 Esha Read Work Phone: [facility] 06-18-2024 10:33-0400 Body temperature 98.6 [degF] Esha Read Work Phone: [facility] 06-18-2024 10:33-0400 Body weight 105.01 kg Esha Read Work Phone: [facility] 06-18-2024 10:33-0400 Diastolic blood pressure 86 mm[Hg] Esha Read Work Phone: [facility] 06-18-2024 10:33-0400 Heart rate 53 /min Esha Read Work Phone: [facility] 06-18-2024 10:33-0400 SaO2% (BldA) [Mass fraction] 98 % Esha Read Work Phone: [facility] 06-18-2024 10:33-0400 Systolic blood pressure 146 mm[Hg] Esha Read Work Phone: [facility] 04-27-2024 08:23-0500 Body mass index (BMI) [Ratio] 37.57 kg/m2 Fabiano Erichi DO Work Phone: [facility] 04-27-2024 08:23-0500 Body temperature 97.59 [degF] Fabiano Masci DO Work Phone: [facility] 04-27-2024 08:23-0500 Body weight 103.19 kg Fabiano Masci DO Work Phone: [facility] 04-27-2024 08:23-0500 Diastolic blood pressure 77 mm[Hg] Fabiano Masci DO Work Phone: [facility] 04-27-2024 08:23-0500 Heart rate 69 /min Fabiano Masci DO Work Phone: [facility] 04-27-2024 08:23-0500 SaO2% (BldA) [Mass fraction] 99 % Fabiano Masci DO Work Phone: [facility] 04-27-2024 08:23-0500 Systolic blood pressure 120 mm[Hg] Fabiano Masci DO Work Phone: [facility] 02-24-2024 09:13-0500 Diastolic blood pressure 83 mm[Hg] Dr. Krystina Calle DO Work Phone: [facility] 02-24-2024 09:13-0500 Systolic blood pressure 144 mm[Hg] Dr. Krystina Calle DO Work Phone: [facility] 02-24-2024 09:07-0500 Body height 165.[address] Krystina Calle DO Work Phone: [facility] 02-24-2024 09:07-0500 Body mass index (BMI) [Ratio] 39.2 kg/m2 Dr. Krystina Calle DO Work Phone: [facility] 02-24-2024 09:07-0500 Body weight 106.[address] Krystina aClle DO Work Phone: [facility] 01-30-2024 07:56-0500 Body mass index (BMI) [Ratio] 38.77 kg/m2 Devika Brush PHLEBOTOMY SUPERVISOR.SHOVEL LOG LOADER OPERATOR Work Phone: [facility] 01-30-2024 07:56-0500 Body temperature 97.5 [degF] Devika Brush PHLEBOTOMY SUPERVISOR.SHOVEL LOG LOADER OPERATOR Work Phone: [facility] 01-30-2024 07:56-0500 Body weight 106.5 kg Devika Brush PHLEBOTOMY SUPERVISOR.SHOVEL LOG LOADER OPERATOR Work Phone: [facility] 01-30-2024 07:56-0500 Diastolic blood pressure 82 mm[Hg] Devika Brush PHLEBOTOMY SUPERVISOR.SHOVEL LOG LOADER OPERATOR Work Phone: [facility] 01-30-2024 07:56-0500 Heart rate 99 /min Devika Brush PHLEBOTOMY SUPERVISOR.SHOVEL LOG LOADER OPERATOR Work Phone: [facility] 01-30-2024 07:56-0500 SaO2% (BldA) [Mass fraction] 93 % Devika Brush PHLEBOTOMY SUPERVISOR.SHOVEL LOG LOADER OPERATOR Work Phone: [facility] 11-07-2024 07:56-0500 Systolic blood pressure 126 mm[Hg] Brussels Brush PHLEBOTOMY SUPERVISOR.SHOVEL LOG LOADER OPERATOR Work Phone: [facility] 10-30-2023 08:31-0400 Body mass index (BMI) [Ratio] 39.38 kg/m2 Fabiano Masci DO Work Phone: [facility] 10-30-2023 08:31-0400 Body temperature 98.49 [degF] Fabiano Masci DO Work Phone: [facility] 10-30-2023 08:31-0400 Body weight 108.18 kg Fabiano Masci DO Work Phone: [facility] 10-30-2023 08:31-0400 Diastolic blood pressure 78 mm[Hg] Fabiano Masci DO Work Phone: [facility] 10-30-2023 08:31-0400 Heart rate 65 /min Fabiano Masci DO Work Phone: [facility] 10-30-2023 08:31-0400 SaO2% (BldA) [Mass fraction] 98 % Fabiano Masci DO Work Phone: [facility] 10-30-2023 08:31-0400 Systolic blood pressure 135 mm[Hg] Fabiano Masci DO Work Phone: [facility] 07-25-2023 08:24-0400 Body mass index (BMI) [Ratio] 38.86 kg/m2 Brussels Brush PHLEBOTOMY SUPERVISOR.SHOVEL LOG LOADER OPERATOR Work Phone: [facility] 07-25-2023 08:24-0400 Body temperature 98.71 [degF] Devika Brush PHLEBOTOMY SUPERVISOR.SHOVEL LOG LOADER OPERATOR Work Phone: [facility] 07-25-2023 08:24-0400 Body weight 106.73 kg Brussels Brush PHLEBOTOMY SUPERVISOR.SHOVEL LOG LOADER OPERATOR Work Phone: [facility] 07-25-2023 08:24-0400 Diastolic blood pressure 70 mm[Hg] Devika Brush PHLEBOTOMY SUPERVISOR.SHOVEL LOG LOADER OPERATOR Work Phone: [facility] 07-25-2023 08:24-0400 Heart rate 70 /min Devika Brush PHLEBOTOMY SUPERVISOR.SHOVEL LOG LOADER OPERATOR Work Phone: [facility] 07-25-2023 08:24-0400 SaO2% (BldA) [Mass fraction] 99 % Devika Brothersenter PHLEBOTOMY SUPERVISOR.SHOVEL LOG LOADER OPERATOR Work Phone: [facility] 07-25-2023 08:24-0400 Systolic blood pressure 152 mm[Hg] Devika Brothersenter PHLEBOTOMY SUPERVISOR.SHOVEL LOG LOADER OPERATOR Work Phone: [facility] 06-11-2023 13:43-0400 Body temperature 98.01 [degF] Bee Athy PA-C Work Phone: [facility] 06-11-2023 13:43-0400 Body weight 106.7 kg Bee Athy PA-C Work Phone: [facility] 06-11-2023 13:43-0400 Diastolic blood pressure 72 mm[Hg] Bee Athy PA-C Work Phone: [facility] 06-11-2023 13:43-0400 Heart rate 76 /min Bee Athy PA-C Work Phone: [facility] 06-11-2023 13:43-0400 Respiratory rate 16 /min Bee Athy PA-C Work Phone: [facility] 06-11-2023 13:43-0400 SaO2% (BldA) [Mass fraction] 98 % Bee Athy PA-C Work Phone: [facility] 06-11-2023 13:43-0400 Systolic blood pressure 134 mm[Hg] Bee Athy PA-C Work Phone: [facility] 04-26-2023 08:36-0500 Body temperature 98.71 [degF] Fabiano Jungi DO Work Phone: [facility] 04-26-2023 08:36-0500 Body weight 105.69 kg Fabiano Jungi DO Work Phone: [facility] 04-26-2023 08:36-0500 Diastolic blood pressure 69 mm[Hg] Fabiano Jungi DO Work Phone: [facility] 04-26-2023 08:36-0500 Heart rate 62 /min Fabiano Liz DO Work Phone: [facility] 04-26-2023 08:36-0500 SaO2% (BldA) [Mass fraction] 99 % Fabiano Liz DO Work Phone: [facility] 04-26-2023 08:36-0500 Systolic blood pressure 135 mm[Hg] Fabiano Jungjesenia HART Work Phone: [facility] 02-19-2023 09:39-0500 Body height 167.[address] Krystina Calle Work Phone: [facility] 02-19-2023 09:28-0500 Body mass index (BMI) [Ratio] 37.5 kg/m2 Dr. Krystina Calle Work Phone: [facility] 02-19-2023 09:28-0500 Body weight 105.[address] Krystina Calle Work Phone: [facility] 02-19-2023 09:28-0500 Diastolic blood pressure 85 mm[Hg] Dr. Krystina Calle Work Phone: [facility] 02-19-2023 09:28-0500 Systolic blood pressure 137 mm[Hg] Dr. Krystina Calle Work Phone: [facility] 12-31-2022 12:59-0400 Body height 167.[address] Krystina Calle Work Phone: [facility] 12-31-2022 12:55-0400 Body mass index (BMI) [Ratio] 37.7 kg/m2 Dr. Krystina Calle Work Phone: [facility] 12-31-2022 12:55-0400 Body weight 105.[address] Krystina Calle Work Phone: [facility] 12-31-2022 12:55-0400 Diastolic blood pressure 88 mm[Hg] Dr. Krystina Calle Work Phone: [facility] 12-31-2022 12:55-0400 Systolic blood pressure 120 mm[Hg] Dr. Krystina Calle Work Phone: [facility] 10-22-2022 15:47-0400 Body temperature 99.1 [degF] Fabiano Erichi DO Work Phone: [facility] 10-22-2022 15:47-0400 Body weight 104.1 kg Fabiano Masci DO Work Phone: [facility] 10-22-2022 15:47-0400 Diastolic blood pressure 79 mm[Hg] Fabiano Masci DO Work Phone: [facility] 10-22-2022 15:47-0400 Heart rate 70 /min Fabiano Masci DO Work Phone: [facility] 10-22-2022 15:47-0400 SaO2% (BldA) [Mass fraction] 98 % Fabiano Erichi DO Work Phone: [facility] 10-22-2022 15:47-0400 Systolic blood pressure 122 mm[Hg] Fabiano Masci DO Work Phone: [facility] 08-27-2022 17:07-0400 Body temperature 98.91 [degF] Lori Solano PHLEBOTOMY SUPERVISOR.SHOVEL LOG LOADER OPERATOR Work Phone: [facility] 08-27-2022 17:07-0400 Body weight 102.06 kg Lori Solano PHLEBOTOMY SUPERVISOR.SHOVEL LOG LOADER OPERATOR Work Phone: [facility] 08-27-2022 17:07-0400 Diastolic blood pressure 74 mm[Hg] Lori Solano PHLEBOTOMY SUPERVISOR.SHOVEL LOG LOADER OPERATOR Work Phone: [facility] 08-27-2022 17:07-0400 Heart rate 76 /min Lori Solano PHLEBOTOMY SUPERVISOR.SHOVEL LOG LOADER OPERATOR Work Phone: [facility] 08-27-2022 17:07-0400 Respiratory rate 16 /min Lori Solano PHLEBOTOMY SUPERVISOR.SHOVEL LOG LOADER OPERATOR Work Phone: [facility] 08-27-2022 17:07-0400 SaO2% (BldA) [Mass fraction] 95 % Lori Solano PHLEBOTOMY SUPERVISOR.SHOVEL LOG LOADER OPERATOR Work Phone: [facility] 08-27-2022 17:07-0400 Systolic blood pressure 124 mm[Hg] Lori Solano PHLEBOTOMY SUPERVISOR.SHOVEL LOG LOADER OPERATOR Work Phone: [facility] 07-25-2022 13:08-0400 Diastolic blood pressure 80 mm[Hg] Fabiano Masci DO Work Phone: [facility] 07-25-2022 13:08-0400 Heart rate 79 /min Fabiano Masci DO Work Phone: [facility] 07-25-2022 13:08-0400 Systolic blood pressure 127 mm[Hg] Fabiano Masci DO Work Phone: [facility] 07-25-2022 11:23-0400 Body height 165.7 cm Fabiano Masci DO Work Phone: [facility] 07-25-2022 11:23-0400 Body temperature 98.4 [degF] Fabiano Masci DO Work Phone: [facility] 07-25-2022 11:23-0400 Body weight 102.06 kg Fabiano Masci DO Work Phone: [facility] 07-25-2022 11:23-0400 Diastolic blood pressure 83 mm[Hg] Fabiano Masci DO Work Phone: [facility] 07-25-2022 11:23-0400 Heart rate 80 /min Fabiano Masci DO Work Phone: [facility] 07-25-2022 11:23-0400 Systolic blood pressure 136 mm[Hg] Fabiano Masci DO Work Phone: [facility] 06-28-2022 09:18-0400 Body height 167.[address] Krystina Calle Work Phone: [facility] 06-28-2022 09:16-0400 Body mass index (BMI) [Ratio] 36.5 kg/m2 Dr. Krystina Calle Work Phone: [facility] 06-28-2022 09:16-0400 Body weight 102.[address] Krystina Calle Work Phone: [facility] 06-28-2022 09:16-0400 Diastolic blood pressure 82 mm[Hg] Dr. Krystina Calle Work Phone: [facility] 06-28-2022 09:16-0400 Systolic blood pressure 132 mm[Hg] Dr. Krystina Calle Work Phone: [facility] 05-21-2022 15:55-0500 Body mass index (BMI) [Ratio] 37.8 kg/m2 Dr. Krystina Calle Work Phone: [facility] 05-21-2022 15:55-0500 Body weight 106.[address] Krystina Calle Work Phone: [facility] 05-21-2022 15:55-0500 Diastolic blood pressure 85 mm[Hg] Dr. Krystina Calle Work Phone: [facility] 05-21-2022 15:55-0500 Systolic blood pressure 134 mm[Hg] Dr. Krystina Calle Work Phone: [facility] 04-24-2022 15:29-0500 Body mass index (BMI) [Ratio] 37.8 kg/m2 Dr. Krystina Calle Work Phone: [facility] 04-24-2022 15:29-0500 Body weight 106.[address] Krystina Calle Work Phone: [facility] 04-24-2022 15:29-0500 Diastolic blood pressure 83 mm[Hg] Dr. Krystina Calle Work Phone: [facility] 04-24-2022 15:29-0500 Systolic blood pressure 130 mm[Hg] Dr. Krystina Calle Work Phone: [facility] 03-27-2022 15:47-0500 Body mass index (BMI) [Ratio] 39.2 kg/m2 Dr. Krystina Calle Work Phone: [facility] 03-27-2022 15:47-0500 Body weight 110.[address] Krystina Calle Work Phone: [facility] 03-27-2022 15:47-0500 Diastolic blood pressure 83 mm[Hg] Dr. Krystina Calle Work Phone: [facility] 03-27-2022 15:47-0500 Heart rate 85 /min Dr. Krystina Calle Work Phone: [facility] 03-27-2022 15:47-0500 Systolic blood pressure 134 mm[Hg] Dr. Krystina Calle Work Phone: [facility] 03-01-2022 15:01-0500 Body height 167.[address] Krystina Calle Work Phone: [facility] Work Phone: 03-01-2022 15:01-0500 Body mass index (BMI) [Ratio] 43 kg/m2 Dr. Krystina Calle Work Phone: [facility] 03-01-2022 15:01-0500 Body weight 110.[address] Krystina Calle Work Phone: [facility] 03-01-2022 15:01-0500 Diastolic blood pressure 73 mm[Hg] Dr. Krystina Calle Work Phone: [facility] 03-01-2022 15:01-0500 Heart rate 79 /min Dr. Krystina Calle Work Phone: [facility] 03-01-2022 15:01-0500 Systolic blood pressure 118 mm[Hg] Dr. Krystina Calle Work Phone: [facility] 02-08-2022 08:28-0500 Body height 167.[address] Krystina Calle Work Phone: [facility] Work Phone: 02-08-2022 08:25-0500 Body mass index (BMI) [Ratio] 39.6 kg/m2 Dr. Krystina Calle Work Phone: [facility] Work Phone: 02-08-2022 08:25-0500 Body weight 111.[address] Krystina Calle Work Phone: [facility] Work Phone: 02-08-2022 08:25-0500 Diastolic blood pressure 81 mm[Hg] Dr. Krystina Calle Work Phone: [facility] Work Phone: 02-08-2022 08:25-0500 Systolic blood pressure 148 mm[Hg] Dr. Krystina Calle Work Phone: [facility] Work Phone: Encounters Encounter Date Encounter Type Care Provider Facility Start: 11-02-2024 ambulatory Krystina Calle Facility:[facility] Start: 10-26-2024 End: 10-26-2024 Specialty Pharmacy [facility] Comment on above: SPP Oral Oncology/he matology - Medication Refill (Scemblix) Start: 10-12-2024 End: 10-12-2024 ambulatory KRYSTINA CALLE Facility:[facility] Start: 09-30-2024 End: 09-30-2024 Specialty Pharmacy [facility] Comment on above: SPP Oral Oncology/he matology - Medication Refill (Scemblix) Start: 09-28-2024 End: 09-29-2024 Refill Fabiano Liz DO Work Phone: Hematology/Oncology Comment on above: Refill Request Medication Problem Start: 08-20-2024 End: 08-20-[address] Dallas Rojas MD -[facility] Work Phone: Start: 08-20-2024 End: 08-20-[address] Krystina Calle DO Work Phone: [facility] Work Phone: Start: 08-10-2024 End: 08-10-[address] Krystina aClle DO Work Phone: [facility] Work Phone: Start: 08-10-2024 End: 08-10-[address] Krystina Calle DO Work Phone: [facility] Work Phone: Start: 08-10-2024 End: 08-10-2024 ambulatory QING Facility:[facility] Start: 07-29-2024 End: 07-29-2024 ambulatory KRYSTINA CALLE Facility:[facility] Start: 07-14-2024 End: 07-14-[address] Krystina Calle DO Work Phone: [facility] Work Phone: Start: 07-14-2024 End: 07-14-2024 Patient encounter procedure Mireya BOWIE -Radiology, [facility] Work Phone: Start: 07-14-2024 End: 07-14-2024 ambulatory Mireya Cortez Facility:[facility] Start: 07-01-2024 End: 07-01-2024 Office outpatient visit 25 minutes Fabiano Liz DO Work Phone: Hematology/Oncology Comment on above: CML (chronic myelocy tic leukemia) (HCC) (Primary Dx); Gastroesophageal reflux disease, unspecified whether esophagitis present; Sciatica, right side Start: 07-01-2024 End: 07-01-2024 ambulatory FABIANO LIZ Facility:[facility] Start: 06-26-2024 End: 06-26-2024 Telephone encounter Esha Read Work Phone: Hematology/Oncology Start: 06-18-2024 End: 06-18-[address] Krystina Calle DO Work Phone: [facility] Work Phone: Start: 06-18-2024 End: 06-18-[address] Krystina Calle DO Work Phone: -Radiology, [facility] Work Phone: Start: 06-18-2024 End: 06-18-2024 Patient encounter procedure Esha Read Work Phone: Hematology/Oncology Start: 06-18-2024 End: 06-18-2024 ambulatory Esha Roro Work Phone: Hematology/Oncology Comment on above: Acute bilateral low back pain with right-sided sciatica (Primary Dx); CML (chronic myelocytic leukemia) (HCC) Start: 06-18-2024 End: 06-18-2024 ambulatory [facility] Facility:[facility] Start: 06-15-2024 End: 06-15-[address] Krystina Calle DO Work Phone: [facility] Work Phone: Start: 06-15-2024 End: 06-15-[address] Fabiano Liz DO -Laboratory Work Phone: Start: 06-15-2024 End: 06-15-2024 [facility] Start: 06-12-2024 End: 06-15-2024 Telephone encounter Ligia Mtz RN Hematology/Oncology Comment on above: 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 - O ther (Oral Anti-Cancer Agents Follow-up ) Start: 06-09-2024 End: 06-23-2024 ambulatory KRYSTINA CALLE Facility:[facility] Start: 06-08-2024 End: 06-08-2024 ambulatory Fabiano Liz DO Work Phone: Hematology/Oncology Comment on above: Scemblix Start: 05-13-2024 End: 05-13-2024 Refill Devika Brush PHLEBOTOMY SUPERVISOR.SHOVEL LOG LOADER OPERATOR Work Phone: Hematology/Oncology Comment on above: Refill Request Start: 05-13-2024 End: 05-14-2024 Refill Devika Brush PHLEBOTOMY SUPERVISOR.SHOVEL LOG LOADER OPERATOR Work Phone: Hematology/Oncology Comment on above: Refill Request Start: 05-05-2024 End: 06-02-2024 Telephone encounter Ligia Mtz RN Hematology/Oncology Comment on above: 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 - O ther (Oral Anti-Cancer Agents Education (asciminib)) Start: 04-28-2024 End: 04-28-2024 ambulatory Jefferson Vuong [facility] Start: 04-28-2024 End: 04-28-2024 Patient encounter procedure Jefferson Vuong [facility] Comment on above: SPP Oral Oncology/he matology - Treatment Referral (Scemblix 40 mg) Start: 04-27-2024 End: 04-27-2024 ambulatory FABIANO LIZ Facility:[facility] Start: 04-27-2024 End: 04-27-2024 Office outpatient visit 25 minutes Fabiano Liz DO Work Phone: Hematology/Oncology Comment on above: CML (chronic myelocy tic leukemia) (HCC) (Primary Dx); History of iron deficiency; Gastroesophageal reflux disease, unspecified whether esophagitis present Start: 04-20-2024 End: 04-20-2024 ambulatory FABIANO LIZ Facility:[facility] Start: 04-03-2024 End: 04-03-2024 Refill Fabiano Liz DO Work Phone: Hematology/Oncology Comment on above: Refill Request Start: 03-31-2024 End: 03-31-2024 Refill Fabiano Liz DO Work Phone: Hematology/Oncology Comment on above: Refill Request Start: 02-24-2024 End: 02-24-[address] Monie Mckeon MD -[facility] Work Phone: Start: 02-24-2024 End: 02-24-[address] Monie Mckeon MD [facility] Start: 02-24-2024 End: 02-24-2024 ambulatory Monie Mckeon Facility:[facility] Start: 01-30-2024 End: 01-30-2024 Patient encounter procedure Devika Brush APRN.SHOVEL LOG LOADER OPERATOR Work Phone: Hematology/Oncology Start: 01-30-2024 End: 01-30-2024 ambulatory Devika Brush APRN.SHOVEL LOG LOADER OPERATOR Work Phone: Hematology/Oncology Comment on above: CML (chronic myelocy tic leukemia) (HCC) (Primary Dx) Start: 01-28-2024 End: 01-28-2024 Orders Only Fabiano Liz DO Work Phone: Hematology/Oncology Start: 01-09-2024 End: 01-09-2024 ambulatory Krystina Malys Facility:[facility] Start: 12-23-2023 End: 12-23-2023 ambulatory Krystina Malys Facility:[facility] Start: 12-19-2023 End: 12-19-2023 ambulatory Krystina Malys Facility:[facility] Start: 12-09-2023 End: 12-09-2023 ambulatory Fabiano Liz Facility:[facility] Start: 12-02-2023 End: 12-02-2023 ambulatory Krystina Malys Facility:[facility] Start: 11-29-2023 End: 11-29-2023 [facility] Start: 11-22-2023 End: 11-22-2023 ambulatory Krystina Malys Facility:[facility] Start: 11-12-2023 End: 11-12-2023 [facility] Start: 11-10-2023 End: 11-11-2023 Refill Fabiano Liz DO Work Phone: Hematology/Oncology Comment on above: Refill Request Start: 11-08-2023 End: 11-08-2023 [facility] Start: 11-04-2023 Telephone encounter Fabiano ventura DO Work Phone: Hematology/Oncology Comment on above: Orders Start: 11-04-2023 End: 11-04-2023 ambulatory [place] Friend Facility:[facility] Start: 10-30-2023 End: 10-30-2023 ambulatory Fabiano Liz DO Work Phone: Hematology/Oncology Comment on above: CML (chronic myelocy tic leukemia) (HCC) (Primary Dx); Iron deficiency anemia secondary to inadequate dietary iron intake Start: 10-30-2023 End: 10-30-2023 Patient encounter procedure Fabiano A Masci DO Work Phone: Hematology/Oncology Start: 10-30-2023 End: 10-30-2023 [facility] Start: 09-30-2023 ambulatory Fabiano Anderson O Work Phone: Hematology/Oncology Comment on above: New pharmacy Start: 07-30-2023 ambulatory Brussels Carpente r PHLEBOTOMY SUPERVISOR.SHOVEL LOG LOADER OPERATOR Work Phone: Hematology/Oncology Start: 07-30-2023 Patient encounter procedure Devika Brush PHLEBOTOMY SUPERVISOR.SHOVEL LOG LOADER OPERATOR Work Phone: Hematology/Oncology Comment on above: Next appointment Start: 07-29-2023 ambulatory Devika Carpente r PHLEBOTOMY SUPERVISOR.SHOVEL LOG LOADER OPERATOR Work Phone: Hematology/Oncology Comment on above: Response to voicemai l Start: 07-29-2023 Telephone encounter Devika carlson PHLEBOTOMY SUPERVISOR.SHOVEL LOG LOADER OPERATOR Work Phone: Hematology/Oncology Start: 07-25-2023 End: 07-25-2023 Subsequent hospital visit by physician [facility] Work Phone: Radiology Comment on above: 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] Start: 07-25-2023 End: 07-25-2023 ambulatory Brussels Brush PHLEBOTOMY SUPERVISOR.SHOVEL LOG LOADER OPERATOR Work Phone: Hematology/Oncology Comment on above: CML (chronic myelocy tic leukemia) (HCC) (Primary Dx) Start: 07-25-2023 End: 07-25-2023 Patient encounter procedure Brussels Brush PHLEBOTOMY SUPERVISOR.SHOVEL LOG LOADER OPERATOR Work Phone: Hematology/Oncology Start: 07-16-2023 Orders Only Fabiano Anderson O Work Phone: Hematology/Oncology Comment on above: CML (chronic myelocy tic leukemia) (HCC) (Primary Dx) Start: 07-15-2023 Refill Brussels Carpente r PHLEBOTOMY SUPERVISOR.SHOVEL LOG LOADER OPERATOR Work Phone: Hematology/Oncology Comment on above: Refill Request Start: 06-12-2023 ambulatory Fabiano Anderson O Work Phone: Hematology/Oncology Comment on above: Viral test Start: 06-11-2023 End: 06-11-2023 ambulatory Fabiano Liz DO Work Phone: Hematology/Oncology Comment on above: Fever Start: 06-11-2023 End: 06-11-2023 Patient encounter procedure Bee LITTLEC Work Phone: [facility] Comment on above: URI, acute (Primary Dx) Start: 06-11-2023 Non-patient / Non-visit Dr. Joan Calle Work Phone: [facility] Start: 06-11-2023 End: 06-11-[address] Krystina Calle Work Phone: [facility]-Cardiovascul ar Services Work Phone: Start: 06-03-2023 Telephone encounter Fabiano ventura DO Work Phone: Hematology/Oncology Comment on above: medication PA Start: 05-30-2023 ambulatory Fabiano Liz D O Work Phone: Hematology/Oncology Comment on above: Bosulif Start: 04-26-2023 End: 04-26-2023 Subsequent hospital visit by physician Xr [facility] [place] Work Phone: Radiology Comment on above: 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] Start: 04-26-2023 End: 04-26-2023 Office outpatient visit 25 minutes Fabiano Liz DO Work Phone: Hematology/Oncology Comment on above: CML (chronic myelocy tic leukemia) (HCC) (Primary Dx); Dyspnea and respiratory abnormalities; Gastroesophageal reflux disease, unspecified whether esophagitis present Start: 02-19-[address] Octavio Calle Work Phone: [facility] Start: 02-19-2023 End: 02-19-[address] Krystina Calle Work Phone: [facility] Start: 02-19-2023 End: 02-19-[address] Krystina Calle Work Phone: [facility] Work Phone: Start: 02-03-2023 Telephone encounter Fabiano ventura DO Work Phone: Hematology/Oncology Comment on above: Results Start: 01-23-2023 Orders Only Fabiano Emerson Work Phone: Hematology/Oncology Comment on above: CML (chronic myelocy tic leukemia) (HCC) (Primary Dx) Start: 01-07-2023 End: 01-07-[address] Krystina Calle Work Phone: [facility] Work Phone: Start: 01-07-2023 End: 01-07-[address] Krystina Calle Work Phone: [facility]-Outpatient Breast Imaging Work Phone: Start: 12-31-2022 End: 12-31-[address] Krystina Calle Work Phone: [facility] Work Phone: Start: 12-28-2022 Refill Devika francis APRN.CNP Work Phone: Hematology/Oncology Comment on above: Refill Request Allopurinal Start: 11-01-2022 Non-patient / Non-visit Dr. Joan Calle Work Phone: [facility] Start: 11-01-2022 End: 11-01-[address] Krystina Calle Work Phone: [facility] Work Phone: Start: 11-01-2022 End: 11-01-[address] Krystina Calle Work Phone: [facility]-Cardiovascul ar Services Work Phone: Start: 10-24-2022 Telephone encounter Fabiano ventura DO Work Phone: Hematology/Oncology Comment on above: Results (CXR) Start: 10-23-2022 ambulatory Fabiano Anderson O Work Phone: Hematology/Oncology Comment on above: Blood work Start: 10-22-2022 End: 10-22-2022 Subsequent hospital visit by physician Ehsan [facility] Work Phone: Radiology Comment on above: Acquired hypothyroid ism [E03.9] Start: 10-22-2022 End: 10-22-2022 ambulatory Fabiano Liz DO Work Phone: Hematology/Oncology Comment on above: CML (chronic myelocy tic leukemia) (HCC) (Primary Dx); Acquired hypothyroidism; Iron deficiency anemia, unspecified iron deficiency anemia type Start: 10-22-2022 End: 10-22-2022 Patient encounter procedure Fabiano Liz DO Work Phone: [facility] Start: 09-20-2022 ambulatory Fabiano Anderson O Work Phone: Hematology/Oncology Comment on above: Dental implant infec tion Start: 08-30-2022 Telephone encounter Fabiano ventura DO Work Phone: Hematology/Oncology Comment on above: Results Start: 08-27-2022 End: 08-27-2022 Subsequent hospital visit by physician Ehsan [facility] Work Phone: Radiology Comment on above: Acute cough [R05.1] Start: 08-27-2022 End: 08-27-2022 Patient encounter procedure Lori Solano APRN.SHOVEL LOG LOADER OPERATOR Work Phone: [facility] Comment on above: Acute cough (Primary Dx); Impacted cerumen, left ear; Hearing loss due to cerumen impaction, left Start: 08-23-2022 Telephone encounter Ligia Mtz RN He matology/Oncology Comment on above: 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 - O ther (Follow-up ) Start: 08-17-2022 Telephone encounter Ligia Navarro matology/Oncology Comment on above: 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 - O ther (Oral Anti-Cancer Agents Follow-up (Bosutinib) ) Start: 08-02-2022 Telephone encounter Fabiano ventura DO Work Phone: Hematology/Oncology Comment on above: Refill Request Start: 07-26-2022 ambulatory Duong Avila [facility] Start: 07-26-2022 Patient encounter procedure Duong Avila [facility] Comment on above: SPP Oral Oncology/he matology - Treatment Referral (Kalebf); Insurance Authorization ([place] pending) Start: 07-26-2022 Telephone encounter Fabiano ventura DO Work Phone: Hematology/Oncology Comment on above: Results (Blood PCR t esting) Start: 07-25-2022 Telephone encounter Fabiano ventura DO Work Phone: Hematology/Oncology Comment on above: urgent results Start: 07-25-2022 End: 07-25-2022 ambulatory Fabiano Liz DO Work Phone: Hematology/Oncology Comment on above: Bandemia (Primary Dx ) Start: 07-25-2022 End: 07-25-2022 Patient encounter procedure Fabiano Liz DO Work Phone: [facility] Start: 07-24-2022 Orders Only Fabiano Anderson O Work Phone: Hematology/Oncology Comment on above: CML (chronic myelocy tic leukemia) (HCC) (Primary Dx); Other elevated white blood cell (WBC) count Start: 07-23-2022 Refill Fabiano Emerson Work Phone: Hematology/Oncology Comment on above: Results (High uric a brad) Start: 07-21-2022 End: 07-21-[address] Krystina Calle Work Phone: [facility] Work Phone: Start: 07-21-2022 End: 07-21-[address] Krystina Calle Work Phone: [facility]-Laboratory Start: 06-28-2022 End: 06-28-[address] Krystina Calle Work Phone: [facility] Start: 06-16-2022 End: 06-16-[address] Krystina Calle Work Phone: [facility] Work Phone: Start: 06-16-2022 End: 06-16-[address] Krystina Calle Work Phone: [facility]Labor[facility] Start: 05-21-2022 End: 05-21-[address] Krystina Calle Work Phone: [facility] Start: 04-24-2022 End: 04-24-[address] Krystnia Calle Work Phone: [facility] Start: 03-27-2022 End: 03-27-[address] Krystina Calle Work Phone: [facility] Start: 03-03-2022 End: 03-03-2022 Non-patient / Non-visit Dr. Krystina Calle Work Phone: [facility] Start: 03-03-2022 End: 03-03-[address] Krystina Calle Work Phone: [facility] Work Phone: Start: 03-03-2022 End: 03-03-[address] Krystina Calle Work Phone: [facility]-Pulmonary Services/Neurology Start: 03-01-2022 End: 03-01-[address] Krystina Calle Work Phone: [facility] Work Phone: Start: 03-01-2022 End: 03-01-[address] Krystina Calle Work Phone: [facility] Start: 02-08-2022 End: 02-08-[address] Krystina Calle Work Phone: [facility] Work Phone: Start: 02-08-2022 End: 02-08-[address] Krystina Calle Work Phone: [facility] Start: 01-02-2022 End: 01-02-2022 ambulatory [employer] EM[employer]OYEE Facility:[facility] Start: 12-29-2021 End: 12-29-[address] Krystina Calle Work Phone: [facility]-MRI - [facility] Start: 12-19-2021 End: 12-19-2021 ambulatory HEALTH EMPLOYEE Facility:[facility] Start: 07-27-2021 End: 07-27-2021 Patient encounter procedure [facility]-Cat Scan, [facility] Start: 07-21-2021 End: 07-21-2021 Patient encounter procedure [facility] Start: 07-20-2021 End: 07-20-2021 Patient encounter procedure [facility]Laboratory, Specimen Procedures Date Procedure Procedure Detail Performing Clinician Start: 08-10-2024 MRI of lumbar spine Dr. Krystina Calle DO Work Phone: Start: 07-14-2024 X-ray of lumbosacral spine Dr. Krystina Calle DO Work Phone: Start: 06-18-2024 X-ray of lumbar spin e, two or three views Dr. Krystina Calle DO Work Phone: Start: 06-11-2023 COVID & INFLUENZA A/ B & RSV NAAT, ROUTINE Bee R Athy PA-C Work Phone: Start: 04-26-2023 Radiologic exam ches t 2 views Fabiano Liz DO Work Phone: Start: 01-07-2023 Bilateral mammography Monica Calle Work Phone: Start: 01-07-[address] Krystina Calle Work Phone: Start: 10-22-2022 Radiologic exam ches t 2 views Fabiano Aron Masci DO Work Phone: Start: 08-27-2022 Radiologic exam ches t 2 views Lori Solano PHLEBOTOMY SUPERVISOR.SHOVEL LOG LOADER OPERATOR Work Phone: Start: 07-25-2022 FLOW CYTOMETRY BONE MARROW HOLD (BMHOLD) Fabiano Aron Masci DO Work Phone: Start: 07-25-2022 FLOW CYTOMETRY BONE MARROW REFLEX Fabiano A Masci DO Work Phone: Start: 07-25-2022 Diagnostic bone idania ow biopsies & aspirations Fabiano Aron Masci DO Work Phone: Start: 07-25-2022 BONE MARROW ANALYSIS Pa meli A Masci DO Work Phone: Start: 02-08-2022 Screening mammography Monica Calle Work Phone: Start: 12-29-2021 MRI of lumbar spine Dr. Krystina Calle Work Phone: Start: 07-27-2021 Computed tomography of abdomen and pelvis with contrast Start: 07-20-2021 Urine culture Plan of Treatment Date Care Activity Detail Author Start: 10-13-2027 Diabetes Screening Diabetes Screening [facility] Start: 07-30-2027 Diabetes Screening Diabetes Screening [facility] Start: 04-20-2027 Diabetes Screening Diabetes Screening [facility] Start: 01-29-2027 Diabetes Screening Diabetes Screening [facility] Start: 10-22-2026 Diabetes Screening Diabetes Screening [facility] Start: 07-16-2026 Diabetes Screening Diabetes Screening [facility] Start: 04-26-2026 Diabetes Screening Diabetes Screening [facility] Start: 01-24-2026 Diabetes Screening Diabetes Screening [facility] Start: 12-20-2025 Diabetes Screening Diabetes Screening [facility] Start: 10-22-2025 DIABETES SCREEN DIABETES SCREEN [facility] Start: 09-20-2025 DIABETES SCREEN DIABETES SCREEN [facility] Start: 08-29-2025 DIABETES SCREEN DIABETES SCREEN [facility] Start: 08-16-2025 DIABETES SCREEN DIABETES SCREEN [facility] Start: 07-23-2025 DIABETES SCREEN DIABETES SCREEN [facility] Start: 11-23-2024 Influenza [facility] Start: 11-20-2024 End: 11-20-2024 Specialty Pharmacy 11/20/2024 7:45 AM EDT Specialty Pharmacy [facility] [address] [place] [address]- [place] [address] Pharmacist, [facility] [address] [place], [place] [address] [address] Refill Scemblix (30 mg) [facility] Comment on above: Refill Scemblix (30 mg) Start: 11-04-2024 End: 11-04-2024 ambulatory Hematology/Oncolog y Comment on above: Q6MO OV/ LABS 07/29 & 10/26* Q6MO OV/ LABS 10/12* Start: 10-26-2024 End: 10-26-2024 ambulatory 10/26/2024 8:00 AM EDT Results Only [facility] [address] [place] [address] CBC/CMP* [facility] Comment on above: CBC/CMP* Start: 10-22-2024 End: 10-22-2024 ambulatory 10/22/2024 9:10 AM EDT Visit (SP) Office Hematology/Oncology [address] [place] [address] Fabiano Liz, [address] [place] [address] OV/LABS 10/12* Hematology/Oncolog y Comment on above: OV/LABS 10/12* Start: 10-21-2024 End: 10-21-2024 Specialty Pharmacy 10/21/2024 7:30 AM EDT Specialty Pharmacy [facility] [address] [place] [address] [place] [address] Pharmacist, [facility] [address] [place] [address] [place] [address] Refill Scemblix (30 mg) [facility] Comment on above: Refill Scemblix (30 mg) Start: 10-12-2024 End: 10-12-2024 ambulatory 10/12/2024 10:00 AM EDT Results [facility] [address] [place] [id number] CBC/CMP/BCR ABL P210 and P190 [facility] Comment on above: CBC/CMP/BCR ABL P210 and P190 Start: 07-29-2024 End: 07-29-2024 ambulatory 07/29/2024 8:00 AM EDT Results Only [facility] [address] [place] [id number] CBC/CMP* [facility] Comment on above: CBC/CMP* Start: 07-01-2024 End: 07-01-2024 ambulatory [facility] Comment on above: CBC/Lipase-On Scemblix CBC/LIPASE/OV-On Sce mblix* Start: 06-23-2024 End: 06-23-2024 Specialty Pharmacy 06/23/2024 7:15 AM EDT Specialty Pharmacy [facility] [address] [place] [id number] [place] [address] Pharmacist, [facility] [address] [place] [id number] Refill - Scemblix [30ds] [facility] Comment on above: Refill - Scemblix [30ds] Start: 06-18-2024 End: 06-18-2024 ambulatory [facility] Comment on above: CBC/Lipase-On Scemblix Blood pressure check -On Scemblix CBC/Lipase-On Scembl ix(LIPASE COMPLETED AT [facility]) OV-Per ,see phone note 06/15 Start: 06-15-2024 End: 09-14-2024 CBC W Auto Differential panel - Blood COMPLETE BLOOD COUNT AND DIFFERENTIAL Lab STAT CML (chronic myelocytic leukemia) (HCC) Expected: 06/15/2024, Expires: 09/14/2024 [facility] Work Phone: Comment on above: Expected: 06/15/2024, Expires: Start: 06-15-2024 End: 09-14-2024 Lipase [Enzymatic activity/volume] in Serum or Plasma LIPASE Lab Routine CML (chronic myelocytic leukemia) (HCC) Expected: 06/15/2024, Expires: 09/14/2024 [facility] Comment on above: Expected: 06/15/2024, Expires: Start: 04-27-2024 End: 04-27-2024 ambulatory 04/27/2024 8:30 AM EST Visit (SP) Office Hematology/Oncology [address] [place] [address] Fabiano Liz DO [address], [place] [id number] Q3MO OV/ LABS 04/20* Hematology/Oncolog y Comment on above: Q3MO OV/ LABS 04/20* Start: 04-20-2024 End: 04-20-2024 ambulatory [facility] Comment on above: CBC/CMP/MAG/PHOS/BCR ABL1 P190 and P210* CBC/CMP/MAG/PHOS/BCR ABL1 P190 and P210* IRON STUDIES Start: 01-30-2024 End: 01-30-2024 ambulatory [facility] Comment on above: CBC/CMP* Q3MO OV/ LABS EARLY* CBC/CMP(S)* Start: 11-24-2023 Influenza [facility] Start: 10-30-2023 End: 01-29-2024 Ferritin [Mass/volume] in Serum or Plasma FERRITIN Lab Routine Iron deficiency anemia secondary to inadequate dietary iron intake Expected: 10/30/2023, Expires: 01/29/2024 [facility] Comment on above: Expected: 10/30/2023, Expires: Start: 10-30-2023 End: 01-29-2024 Iron and Iron binding capacity panel - Serum or Plasma IRON AND TIBC Lab Routine Iron deficiency anemia secondary to inadequate dietary iron intake Expected: 10/30/2023, Expires: 01/29/2024 [facility] Work Phone: Comment on above: Expected: 10/30/2023, Expires: Start: 10-30-2023 End: 10-30-2023 ambulatory 10/30/2023 8:30 AM EDT Visit (SP) Office Hematology/Oncology [address] [place], [place] [id number] Fabiano Liz, DO [address] [place] [address] Q3MO OV/ LABS 10/22* Hematology/Oncolog y Comment on above: Q3MO OV/ LABS 10/22* Start: 10-23-2023 End: 10-23-2023 ambulatory 10/23/2023 4:00 PM EDT Results Only [facility] [address] [place] [address] (SO)CBC/CMP(S)/PCR BCR/ABL for both p210 and p190* [facility] Comment on above: (SO)CBC/CMP(S)/PCR BCR/ABL for both p210 and p190* Start: 07-25-2023 End: 07-25-2023 ambulatory 07/25/2023 8:30 AM EDT Visit (SP) Office Hematology/Oncology [address] [place], [place] [id number] Fabiano Liz, DO [address] [place] [address] Q3MO OV/ LABS 07/16* Hematology/Oncolog y Comment on above: Q3MO OV/ LABS 07/16* Start: 07-17-2023 End: 07-17-2023 ambulatory [facility] Comment on above: CBC/CMP/PCR BCR/ABL for both p210 and p1 90 (SO)CBC/CMP(S)/PCR B CR/ABL for both p210 and p190* Start: 07-17-2023 End: 10-16-2023 BCR/ABL1 P190 QUANTITATIVE PCR BLOOD BCR/ABL1 P190 QUANTITATIVE PCR BLOOD Lab Routine CML (chronic myelocytic leukemia) ([facility]) Expected: 07/17/2023, Expires: 10/16/2023 [facility] Work Phone: Comment on above: Expected: 07/17/2023, Expires: Start: 07-17-2023 End: 10-16-2023 BCR/ABL1 P210 QUANTITATIVE PCR BLOOD BCR/ABL1 P210 QUANTITATIVE PCR BLOOD Lab Routine CML (chronic myelocytic leukemia) ([facility]) Expected: 07/17/2023, Expires: 10/16/2023 [facility] Comment on above: Expected: 07/17/2023, Expires: Start: 04-26-2023 End: 07-26-2023 BCR/ABL1 P190 QUANTITATIVE PCR BLOOD [facility] Work Phone: Comment on above: Expected: 04/26/2023, Expires: Start: 04-26-2023 End: 07-26-2023 BCR/ABL1 P210 QUANTITATIVE PCR BLOOD [facility] Work Phone: Comment on above: Expected: 04/26/2023, Expires: Start: 03-25-2023 Behavioral Health Screening Behavioral Health Screening [facility] Start: 03-25-2023 Depression Assessment Depression Assessment [facility] Start: 01-24-2023 End: 04-25-2023 BCR/ABL1 P210 QUANTITATIVE PCR BLOOD BCR/ABL1 P210 QUANTITATIVE PCR BLOOD Lab Routine CML (chronic myelocytic leukemia) ([facility]) Expected: 01/24/2023, Expires: 04/25/2023 [facility] Work Phone: Comment on above: Expected: 01/24/2023, Expires: Start: 01-23-2023 End: 04-24-2023 BCR/ABL1 P190 QUANTITATIVE PCR BLOOD BCR/ABL1 P190 QUANTITATIVE PCR BLOOD Lab Routine CML (chronic myelocytic leukemia) ([facility]) Expected: 01/23/2023, Expires: 04/24/2023 [facility] Work Phone: Comment on above: Expected: 01/23/2023, Expires: 4 Start: 11-23-2022 Influenza vaccination INFLUENZA (#1) [facility] Start: 10-22-2022 End: 12-22-2022 BCR/ABL1 P190 QUANTITATIVE PCR BLOOD [facility] Work Phone: Comment on above: Expected: 10/22/2022, Expires: 3 Start: 10-22-2022 End: 12-22-2022 BCR/ABL1 P210 QUANTITATIVE PCR BLOOD [facility] Work Phone: Comment on above: Expected: 10/22/2022, Expires: 3 Start: 07-25-2022 End: 09-24-2022 CBC W Auto Differential panel - Blood CBC + DIFF Lab STAT CML (chronic myelocytic leukemia) (HCC) Other elevated white blood cell (WBC) count Expected: 07/25/2022, Expires: 09/24/2022 [facility] Work Phone: Comment on above: Expected: 07/25/2022, Expires: 3 Start: 07-23-2022 End: 09-22-2022 BCR/ABL1 P210 AND P190 DIAGNOSTIC PCR BLOOD [facility] Work Phone: Comment on above: Expected: 07/23/2022, Expires: 3 Start: 07-23-2022 End: 09-22-2022 Chronic hepatitis differentiation between hepatitis B and C virus panel - Serum or Plasma [facility] Work Phone: Comment on above: Expected: 07/23/2022, Expires: 3 Start: 07-23-2022 End: 09-22-2022 HIV 1+2 Ab [Presence] in Serum or Plasma by Immunoassay [facility] Work Phone: Comment on above: Expected: 07/23/2022, Expires: 3 Start: 03-25-2022 DEPRESSION ASSESSMENT DEPRESSION ASSESSMENT [facility] Start: 2022 COLOGUARD (FIT-DNA) COLOGUARD (FIT-DNA) [facility] Start: 2022 Colonoscopy COLONOSCOPY [facility] Start: 2022 COLORECTAL CANCER SCREENING COLORECTAL CANCER SCREENING [facility] Start: [address] COLONOGRAPHY [facility] Start: 2022 FECAL OCCULT BLOOD FECAL OCCULT BLOOD [facility] Start: 2022 Lipid 1996 panel - Serum or Plasma Lipid Screening [facility] Start: 2022 Lipid panel Lipid Screening [facility] Start: 2022 LIPID SCREEN LIPID SCREEN [facility] Start: 2022 Screening for malignant neoplasm of colon [facility] Start: 2022 SIGMOIDOSCOPY SIGMOIDOSCOPY [facility] Start: 03-03-2021 COVID-19 VACCINE (3 - Booster for Moderna series) COVID-19 VACCINE (3 - Booster for Moderna series) [facility] Start: 02-03-2021 COVID-19 VACCINE (3 - Moderna risk series) COVID-19 VACCINE (3 - Moderna risk series) [facility] Start: 10-23-2017 Urine microalbumin profile DTaP,Tdap,Td Vaccine (2 - Td or Tdap) [facility] Start: 2017 Mammography [facility] Start: 2017 Screening for malignant neoplasm of breast Mammogram Screening [facility] Start: 06-28-2007 PAP TESTING PAP TESTING [facility] Start: 06-28-2007 Screening for malignant neoplasm of cervix Pap Testing [facility] Start: 2007 HPV TESTING HPV TESTING [facility] Start: 2007 Screening for malignant neoplasm of cervix HPV Testing [facility] Start: 06-28-2003 Screening for malignant neoplasm of cervix Cervical Cancer Screening [facility] Start: 01-18-1996 Pneumococcal vaccination Pneumococcal Vaccine (1 of 2 - PCV) [facility] Start: 01-18-1996 SHINGRIX VACCINE (1 of 2) SHINGRIX VACCINE (1 of 2) [facility] Start: 01-18-1996 Urine microalbumin profile [facility] Start: 1995 Anxiety Screening Anxiety Screening [facility] Start: 1995 Depression Screening Depression Screening [facility] Start: 1995 HEPATITIS C SCREENING HEPATITIS C SCREENING [facility] Start: 1995 HIV SCREENING HIV SCREENING [facility] Start: 1983 PNEUMOCOCCAL (1 - PCV) PNEUMOCOCCAL (1 - PCV) [facility] Start: 1983 [facility] Start: [facility] HEPATITIS B (1 of 3 - 3-dose series) HEPATITIS B (1 of 3 - 3-dose series) [facility] BCR/ABL1 P190 NCN P2 10 % IS MR BONE MARROW BCR/ABL1 P190 NCN P210 % IS MR BONE MARROW Lab Routine Bandemia 07/25/2022 1:17 PM EDT [facility] Work Phone: BCR/ABL1 P210 AND P1 90 DIAGNOSTIC PCR BONE MARROW BCR/ABL1 P210 AND P190 DIAGNOSTIC PCR BONE MARROW Lab Routine Bandemia 07/25/2022 1:17 PM EDT [facility] Work Phone: BCR/ABL1 P210 AND P1 90 DIAGNOSTIC PCR BONE MARROW BCR/ABL1 P210 AND P190 DIAGNOSTIC PCR BONE MARROW Lab Routine Bandemia 07/25/2022 1:17 PM EDT [facility] Work Phone: BONE MARROW CHROMOSOME ANAL BONE MARROW CHROMOSOME ANAL Lab Routine Bandemia 07/25/2022 1:17 PM EDT [facility] Work Phone: CBC W Ordered Manual Differential panel - Blood PATHOLOGIST INTERPRETATION WITH CBC AND DIFF Lab STAT Other elevated white blood cell (WBC) count 07/23/2022 2:52 PM EDT [facility] Work Phone: DNA EXTRACTION BONE MARROW (BUFFY COAT) DNA EXTRACTION BONE MARROW (BUFFY COAT) Lab Routine Bandemia 07/25/2022 1:17 PM T [facility] Work Phone: End: 04-26-2024 ECG COMPLETE ECG COMPLETE ECG Routine CML (chronic myelocytic leukemia) (HCC) Dyspnea and respiratory abnormalities 1 Occurrences starting 04/26/2023 until 04/26/2024 [facility] Work Phone: Comment on above: 1 Occurrences starting 04/26/2023 until 04/26/2024 End: 10-25-2023 Echocardiography ECHO Cardiology Routine CML (chronic myeloid leukemia) (HCC) Encounter for monitoring cardiotoxic drug therapy 1 Occurrences starting 10/24/2022 until 10/25/2023 [facility] Work Phone: Comment on above: 1 Occurrences starting 10/24/2022 until 10/25/2023 End: 04-26-2024 Echocardiography ECHO Cardiology Routine CML (chronic myelocytic leukemia) ([facility]) 1 Occurrences starting 04/26/2023 until 04/26/2024 [facility] Work Phone: Comment on above: 1 Occurrences starting 04/26/2023 until 04/26/2024 Electrocardiographic procedure [facility] Work Phone: End: 07-26-2025 MR Lumbar spine WO contrast MRI LUMBAR SPINE WO IVCON Radiology Routine Spinal stenosis of lumbar region, unspecified whether neurogenic claudication present 1 Occurrences starting 06/26/2024 until 07/26/2025 [facility] Work Phone: Comment on above: 1 Occurrences starting 06/26/2024 until 07/26/2025 End: 11-21-2023 Radiologic exam chest 2 views XR CHEST 2V FRONTAL/LAT Radiology Routine Acquired hypothyroidism Iron deficiency anemia, unspecified iron deficiency anemia type CML (chronic myelocytic leukemia) ([facility]) 1 Occurrences starting 10/22/2022 until 11/21/2023 [facility] Work Phone: Comment on above: 1 Occurrences starting 10/22/2022 until 11/21/2023 Radiologic exam chest 2 views XR CHEST 2V FRONTAL/LAT Radiology Routine Acquired hypothyroidism Iron deficiency anemia, unspecified iron deficiency anemia type CML (chronic myelocytic leukemia) ([facility]) 10/22/2022 4:56 PM EDT [facility] Work Phone: Removal impacted cer umen irrigation/lvg unilat AMBULATORY EAR LAVAGE/IRRIGATION Procedures Routine Impacted cerumen, left ear Ordered: 08/27/2022 [facility] Work Phone: Comment on above: Ordered: 08/27/2022 T4 free measurement [facility] Work Phone: Thyroid stimulating hormone measurement [facility] Work Phone: Triiodothyronine, fr ee measurement [facility] Work Phone: XR Femur - left AP a nd Lateral XR FEMUR GENERAL 2V AP/LAT LEFT Radiology Routine CML (chronic myelocytic leukemia) (HCC) 07/25/2023 9:12 AM EDT [facility] Work Phone: End: 08-23-2024 XR Femur - left AP and Lateral XR FEMUR GENERAL 2V AP/LAT LEFT Radiology Routine CML (chronic myelocytic leukemia) ([facility]) 1 Occurrences starting 07/25/2023 until 08/23/2024 [facility] Work Phone: Comment on above: 1 Occurrences starting 07/25/2023 until 08/23/2024 End: 07-18-2025 XR Lumbar spine AP and Lateral XR LUMBAR LIMITED 2V AP/LAT Radiology Routine Acute bilateral low back pain with right-sided sciatica 1 Occurrences starting 06/18/2024 until 07/18/2025 [facility] Work Phone: Comment on above: 1 Occurrences starting 06/18/2024 until 07/18/2025 [facility] Immunizations Immunization Date Immunization Notes Care Provider [facility] 01-23-2024 influenza, seasonal, injectable, preservative free Dr. Krystina Calle DO Work Phone: [facility] 01-23-2024 influenza virus vaccine, unspecified formulation Fabiano Liz DO Work Phone: [facility] 12-07-2022 influenza virus vaccine, unspecified formulation Fabiano Liz DO Work Phone: [facility] 01-06-2021 Covid (Moderna) [facility] 12-20-2020 influenza, injectabl e, quadrivalent, preservative free Dr. Krystina Calle Work Phone: [facility] 12-20-2020 influenza, seasonal, injectable [facility] 12-09-2020 Covid (Moderna) [facility] 12-22-2019 influenza, injectabl e, quadrivalent, preservative free Dr. Krystina Calle Work Phone: [facility] 12-22-2019 influenza, seasonal, injectable [facility] 12-18-2018 influenza, injectabl e, quadrivalent, preservative free Dr. Krystina Calle Work Phone: [facility] 12-18-2018 influenza, seasonal, injectable [facility] 12-18-2017 influenza, injectabl e, quadrivalent, preservative free Dr. Krystina Calle Work Phone: [facility] 12-18-2017 influenza, seasonal, injectable [facility] 12-19-2016 influenza, injectabl e, quadrivalent, preservative free Dr. Krystina Calle Work Phone: [facility] 12-19-2016 influenza, seasonal, injectable [facility] 12-22-2015 influenza, injectabl e, quadrivalent, preservative free Dr. Krystina Calle Work Phone: [facility] 12-22-2015 influenza, seasonal, injectable [facility] 12-22-2014 influenza, injectabl e, quadrivalent, preservative free Dr. Krystina Calle Work Phone: [facility] 12-22-2014 influenza, seasonal, injectable [facility] 12-23-2013 influenza, injectabl e, quadrivalent, preservative free Dr. Krystina Calle Work Phone: [facility] 12-23-2013 influenza, seasonal, injectable [facility] Payers Date Payer Category Payer Self-pay [id number] 2023 Private Health Insurance [id number] 2023 Unknown [id number] 2022 Unknown [id number] 2016 Unknown [id number] Unknown 0000 Unknown [id number] 2.16.8 [id number] Unknown [id number] 2.16.8 40.1.750626.3.579.2.383 Unknown [id number] 2.16.8 40.1.389813.3.579.2.462 Unknown [id number] 2.16.8 40.1.508715.3.579.2.462 Unknown [id number] 2.16.8 40.1.354077.3.579.2.462 Unknown [id number] 2.16.8 40.1.930075.3.579.2.462 Unknown [id number] 2.16.8 40.1.153046.3.579.2.462 Unknown [id number] 2.16.8 40.1.110480.3.579.2.462 Unknown [id number] 2.16.8 40.1.764442.3.579.2.462 Unknown [id number] 2.16.8 40.1.385604.3.579.2.462 Unknown [id number] 2.16.8 40.1.892581.3.579.2.462 Unknown [id number] 2.16.8 40.1.767352.3.579.2.462 Unknown [id number] 2.16.8 40.1.592511.3.579.2.462 Unknown [id number] 2.16.8 40.1.655595.3.579.2.462 Unknown [id number] 2.16.8 40.1.141974.3.579.2.462 Unknown [id number] 2.16.8 40.1.945403.3.579.2.462 Unknown [id number] 2.16.8 40.1.270275.3.579.2.462 Unknown [id number] 2.16.8 40.1.127231.3.579.2.462 Unknown [id number] 2.16.8 40.1.515370.3.579.2.462 Unknown [id number] 2.16.8 40.1.051513.3.579.2.462 Unknown [id number] 2.16.8 40.1.545094.3.579.2.462 Unknown [id number] 2.16.8 40.1.758893.3.579.2.462 Social History Date Type Detail Facility Start: 12-26-2020 End: 02-19-2023 Tobacco smoking status INIS Unknown if ever smoked [facility] Start: 1975 Sex Assigned At Female [facility] Start: 07-25-2022 End: 02-24-2024 Tobacco smoking status INIS Never smoked tobacco [facility] Start: 08-25-2017 End: 08-27-2022 Alcohol intake Current drinker of alcohol (finding) [facility] Start: 09-20-2009 Alcohol Comment Not often [facility] Start: 1975 Sex Assigned At Not on file [facility] Start: 07-25-2022 Tobacco use and exposure Smokeless tobacco non-user [facility] Start: 10-22-2022 End: 07-01-2024 Alcohol intake Ex-drinker (finding) [facility] Start: 10-22-2022 End: 06-18-2024 History of Social function [facility] Start: 10-22-2022 End: 06-18-2024 Tobacco use panel [facility] Adult Depression Screening Assessment 0 [facility] Start: 06-22-2024 End: 07-20-2024 Sex Female (finding) [facility] Clinical Notes 07-23-2022 to 10-26-2024 Mila (Manager Solar)Margaret - 10/26/2024 12:20 PM EDTStacia Grady - 09/30/2024 11:39 AM EDTTelephone Encounter - Marie Malhotra [facility] - 09/28/2024 4:29 PM EDT Note Date & Type Note Facility 10-26-2024 History of Presen t illness Narrative [facility] Refill Assessment Medication(s): Scemblix Patient's current medication list and adherence status to current therapy were reviewed by Specialty Pharmacy clinical pharmacist to identify any new drug interactions or non-compliance to therapy. Therapy continues to be appropriate for disease, patient response, and medical condition. Verification of therapeutic benefit and effectiveness with current therapy was completed. Adverse events, barriers in adherence, and side effects were assessed and addressed if applicable. Will proceed with refill with no changes in therapy - patient progressing towards achieving therapeutic goals based on medication-specific laboratory parameters, disease state markers and outcomes. Office/provider notes have been reviewed prior to dispensing the medication. 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 Patient confirmed: Yes Med/dose confirmed: Yes Supplies needed: No supplies needed Missed doses: No Estimated days supply on hand: 6 Copay amount: 0 Payment confirmed: Yes Delivery method: FedEx Signature required: Waived on patient request Delivery address: [address] [place] [address] [address] [place] [address] Delivery date: 10/29/24 Questions or concerns for the pharmacist?: No Did you have any side effects believed to be related to this medication, that resulted in hospitalization?: No Current Outpatient Medications on File Prior to Visit Medication Sig asciminib (SCEMBLIX) 40 mg tablet Take 2 tablets (80 mg) by mouth once daily on an empty stomach, 1 hour before or [address] hours after eating pantoprazole [address] (PROTONIX) 40 mg tablet Take 1 tablet by mouth once daily. allopurinol (ZYLOPRIM) 300 mg tablet Take 1 tablet by mouth once daily. potassium chloride (K-TAB) 10 mEq tablet Take 2 tablets by mouth once daily. ondansetron (ZOFRAN) 8 mg tablet Take 1 tablet by mouth every 8 hours as needed (For chemotherapy induced nausea and vomiting). acetaminophen (TYLENOL) 325 mg tablet Take 325 mg by mouth every 6 hours as needed. Ibuprofen 200 mg cap Take 1 capsule by mouth every 6 hours as needed. furosemide (LASIX) 20 mg tablet Take 1 tablet by mouth once daily. levothyroxine (SYNTHROID) 125 mcg tablet Take 125 mcg by mouth once daily. No current facility-administered medications on file prior to visit. [facility] RX SPECIALTY CLINICAL ASSESSMENT - HEMATOLOGY ONCOLOGY V6: Assessment to use: Refill Date of influenza vaccination reminder: 05/28/2024 Date of most recent vaccination assessment: 05/28/2024 Treatment Plan Information: Diagnosis: CML Previous treatment(s): bosulif New treatment regimen: Scemblix (asciminib) Starting Dose/Titration: 80mg Sig:Take 2 tablets (80 mg) by mouth once daily on an empty stomach, 1 hour before or 2 hours after eating Administration: - Take on an empty stomach (1 hour before or 2 hours after eating) - Swallow whole, take at the same time(s) every day Warnings: include but are not limited to - Bone marrow suppress (thrombocytopenia, anemia, and neutropenia) - can be G3/4 - Cardio toxicity (ischemic cardiac and ORTHOPEDIC PODIATRIST events, thrombotic and embolic events, HF reported) - GI Toxicity (pancreatitis) - HTN (G3/4 elevations possible, med onset 14 weeks) Side effects: include but are not limited to - HTN*, skin rash, low Ca/phos; elevated TC, TG, uric acid; diarrhea; N/V (min - low); elevated AST/ALT/T Bili; Fatigue; BAÑUELOS; musculoskeletal pain Monitoring: - CBC (every 2 weeks x 3 months, then monthly) - Lipase / Amylas (Monthly or as clinically needed) - BP - S/S hypersensitivity reactions, myelosuppression, CV toxicity, pancreatic toxicity - Adherence - Hep B screening Drug-Drug Interactions: No major interactions identified 06/01/24 Baseline: - CBC: Hgb 12.4, plt 221, anc 4.9 - BP: 120/77 - Hep B: 07/23/22 14:51 Hep B Core Ab, Total: Negative Hep B Surf Ab Quant: 23.54 Hep B Surface Ab, Qual: Positive Hep B Surface Ag: Negative Baseline: 04/20/24 09:54 BCR/ABL1 p210 MR: 4 BCR/ABL1 p210 Interpretation: BCR/ABL1 p210 Quantitative PCR Est. Tx Plan Start Date: No information available Estimated Start Date Info: Per Dr. Liz Est. Estimated Treatment Duration: Continue until disease progression or unacceptable toxicity. Margaret Zaragoza ([employer]) documented in this encounter [facility] 10-26-2024 Note HNO ID: [id number] Author: JEFFERSON VUONG RPh Service: ? Author Type: ? Type: Progress Notes Filed: 10/27/2024 11:26 Note Text: [facility] Refill Assessment Medication(s): Scemblix No new clinic notes to review since last [facility] refill encounter. Labs from 10/12 reviewed. - CMP/CBC stable with no dose limiting toxicities 10/12/24 09:44 BCR/ABL1 p210 MR 4.53 BCR/ABL1 P210 %IS 0.003 Next OV scheduled 11/04/24. ALLERGIES Allergen Reactions Iv Dye [Iodinated C* Hives, Swelling Nubain [Nalbuphine * Vomiting Patient's current medication list and adherence status to current therapy were reviewed by Specialty Pharmacy clinical pharmacist to identify any new drug interactions or non-compliance to therapy. Therapy continues to be appropriate for disease, patient response, and medical condition. Verification of therapeutic benefit and effectiveness with current therapy was completed. Adverse events, barriers in adherence, and side effects were assessed and addressed if applicable. Will proceed with refill with no changes in therapy - patient progressing towards achieving therapeutic goals based on medication-specific laboratory parameters, disease state markers and outcomes. Office/provider notes have been reviewed prior to dispensing the medication. Jefferson Vuong, DavidD Clinical Pharmacist, Oncology [facility] P: , F: Pool: P [facility] ONCOLOG[facility] Pool #: [id number] 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 Patient confirmed: Yes Med/dose confirmed: Yes Supplies needed: No supplies needed Missed doses: No Estimated days supply on hand: 6 Copay amount: 0 Payment confirmed: Yes Delivery method: FedEx Signature required: Waived on patient request Delivery address: [address] [place] [address] [address] [place] [address] Delivery date: 10/29/24 Questions or concerns for the pharmacist?: No Did you have any side effects believed to be related to this medication, that resulted in hospitalization?: No Current Outpatient Medications on File Prior to Visit Medication Sig asciminib (SCEMBLIX) 40 mg tablet Take 2 tablets (80 mg) by mouth once daily on an empty stomach, 1 hour before or 2 hours after eating pantoprazole DR (PROTONIX) 40 mg tablet Take 1 tablet by mouth once daily. allopurinol (ZYLOPRIM) 300 mg tablet Take 1 tablet by mouth once daily. potassium chloride (K-TAB) 10 mEq tablet Take 2 tablets by mouth once daily. ondansetron (ZOFRAN) 8 mg tablet Take 1 tablet by mouth every 8 hours as needed (For chemotherapy induced nausea and vomiting). acetaminophen (TYLENOL) 325 mg tablet Take 325 mg by mouth every 6 hours as needed. Ibuprofen 200 mg cap Take 1 capsule by mouth every 6 hours as needed. furosemide (LASIX) 20 mg tablet Take 1 tablet by mouth once daily. levothyroxine (SYNTHROID) 125 mcg tablet Take 125 mcg by mouth once daily. No current facility-administered medications on file prior to visit. [facility] RX SPECIALTY CLINICAL ASSESSMENT - HEMATOLOGY ONCOLOGY V6: Assessment to use: Refill Date of influenza vaccination reminder: 05/28/2024 Date of most recent vaccination assessment: 05/28/2024 Treatment Plan Information: Diagnosis: CML Previous treatment(s): bosulif New treatment regimen: Scemblix (asciminib) Starting Dose/Titration: 80mg Sig:Take 2 tablets (80 mg) by mouth once daily on an empty stomach, 1 hour before or 2 hours after eating Administration: - Take on an empty stomach (1 hour before or 2 hours after eating) - Swallow whole, take at the same time(s) every day Warnings: include but are not limited to - Bone marrow suppress (thrombocytopenia, anemia, and neutropenia) - can be G3/4 - Cardio toxicity (ischemic cardiac and ORTHOPEDIC PODIATRIST events, thrombotic and embolic events, HF reported) - GI Toxicity (pancreatitis) - HTN (G3/4 elevations possible, med onset 14 weeks) Side effects: include but are not limited to - HTN*, skin rash, low Ca/phos; elevated TC, TG, uric acid; diarrhea; N/V (min - low); elevated AST/ALT/T Bili; Fatigue; BAÑUELOS; musculoskeletal pain Monitoring: - CBC (every 2 weeks x 3 months, then monthly) - Lipase / Amylas (Monthly or as clinically needed) - BP - S/S hypersensitivity reactions, myelosuppression, CV toxicity, pancreatic toxicity - Adherence - Hep B screening Drug-Drug Interactions: No major interactions identified 06/01/24 Baseline: - CBC: Hgb 12.4, plt 221, anc 4.9 - BP: 120/77 - Hep B: 07/23/22 14:51 Hep B Core Ab, Total: Negative Hep B Surf Ab Quant: 23.54 Hep B Surface Ab, Qual: Positive Hep B Surface Ag: Negative Baseline: 04/20/24 09:54 BCR/ABL1 p210 MR: 4 BCR/ABL1 p210 Interpretation: BCR/ABL1 p210 Quantitative PCR Est. Tx Plan Start Date: No information available Estimated Start Date Info: Per Dr. Liz Est. Estimated Treatment Duration: Continue until disease progression or unacceptable toxicity. Margaret Zaragoza (Manager Solar) [facility] 09-30-2024 History of Presen t illness Narrative [facility] Ref[facility] Assessment Medication(s): scemblix Patient's current medication list and adherence status to current therapy were reviewed by Specialty Pharmacy clinical pharmacist to identify any new drug interactions or non-compliance to therapy. Therapy continues to be appropriate for disease, patient response, and medical condition. Verification of therapeutic benefit and effectiveness with current therapy was completed. Adverse events, barriers in adherence, and side effects were assessed and addressed if applicable. Will proceed with refill with no changes in therapy - patient progressing towards achieving therapeutic goals based on medication-specific laboratory parameters, disease state markers and outcomes. Office/provider notes have been reviewed prior to dispensing the medication. 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 Patient confirmed: Yes Med/dose confirmed: Yes Supplies needed: No supplies needed Missed doses: No Estimated days supply on hand: 1 Copay amount: 0 Payment confirmed: Yes Delivery method: FedEx Signature required: No Delivery address: [address] [place] [address] Delivery date: 10/02/24 Questions or concerns for the pharmacist?: No Did you have any side effects believed to be related to this medication, that resulted in hospitalization?: No Current Outpatient Medications on File Prior to Visit Medication Sig asciminib (SCEMBLIX) 40 mg tablet Take 2 tablets (80 mg) by mouth once daily on an empty stomach, 1 hour before or 2 hours after eating pantoprazole DR (PROTONIX) 40 mg tablet Take 1 tablet by mouth once daily. asciminib (SCEMBLIX) 40 mg tablet Take 2 tablets (80 mg) by mouth once daily on an empty stomach, 1 hour before or 2 hours after eating allopurinol (ZYLOPRIM) 300 mg tablet Take 1 tablet by mouth once daily. potassium chloride (K-TAB) 10 mEq tablet Take 2 tablets by mouth once daily. ondansetron (ZOFRAN) 8 mg tablet Take 1 tablet by mouth every 8 hours as needed (For chemotherapy induced nausea and vomiting). acetaminophen (TYLENOL) 325 mg tablet Take 325 mg by mouth every 6 hours as needed. Ibuprofen 200 mg cap Take 1 capsule by mouth every 6 hours as needed. furosemide (LASIX) 20 mg tablet Take 1 tablet by mouth once daily. levothyroxine (SYNTHROID) 125 mcg tablet Take 125 mcg by mouth once daily. No current facility-administered medications on file prior to visit. [facility] RX SPECIALTY CLINICAL ASSESSMENT - HEMATOLOGY ONCOLOGY V6: Assessment to use: Refill Date of influenza vaccination reminder: 05/28/2024 Date of most recent vaccination assessment: 05/28/2024 Treatment Plan Information: Diagnosis: CML Previous treatment(s): bosulif New treatment regimen: Scemblix (asciminib) Starting Dose/Titration: 80mg Sig:Take 2 tablets (80 mg) by mouth once daily on an empty stomach, 1 hour before or 2 hours after eating Administration: - Take on an empty stomach (1 hour before or 2 hours after eating) - Swallow whole, take at the same time(s) every day Warnings: include but are not limited to - Bone marrow suppress (thrombocytopenia, anemia, and neutropenia) - can be G3/4 - Cardio toxicity (ischemic cardiac and ORTHOPEDIC PODIATRIST events, thrombotic and embolic events, HF reported) - GI Toxicity (pancreatitis) - HTN (G3/4 elevations possible, med onset 14 weeks) Side effects: include but are not limited to - HTN*, skin rash, low Ca/phos; elevated TC, TG, uric acid; diarrhea; N/V (min - low); elevated AST/ALT/T Bili; Fatigue; BAÑUELOS; musculoskeletal pain Monitoring: - CBC (every 2 weeks x 3 months, then monthly) - Lipase / Amylas (Monthly or as clinically needed) - BP - S/S hypersensitivity reactions, myelosuppression, CV toxicity, pancreatic toxicity - Adherence - Hep B screening Drug-Drug Interactions: No major interactions identified 06/01/24 Baseline: - CBC: Hgb 12.4, plt 221, anc 4.9 - BP: 120/77 - Hep B: 07/23/22 14:51 Hep B Core Ab, Total: Negative Hep B Surf Ab Quant: 23.54 Hep B Surface Ab, Qual: Positive Hep B Surface Ag: Negative Baseline: 04/20/24 09:54 BCR/ABL1 p210 MR: 4 BCR/ABL1 p210 Interpretation: BCR/ABL1 p210 Quantitative PCR Est. Tx Plan Start Date: No information available Estimated Start Date Info: Per Dr. Liz Est. Estimated Treatment Duration: Continue until disease progression or unacceptable toxicity. Stacia Grady documented in this encounter [facility] 09-30-2024 Note HNO ID: [id number] Author: JEFFERSON VUONG RPh Service: ? Author Type: ? Type: Progress Notes Filed: 10/01/2024 09:42 Note Text: [facility] Specialty Refill Assessment Medication(s): scemblix Reviewed OV note on 07/01. Pt previously endorsed worsening right sided sciatica pain and some cervical pain - otherwise no other concerns or ADRS reported. Dr. Liz recommends continuation of therapy with no changes at this time. Refill appropriate. Labs reviewed from 07/29: - CBC/CMP stable within treatment parameters - no dose limiting toxicities Next clinic visit scheduled 11/04/24. ALLERGIES Allergen Reactions Iv Dye [Iodinated C* Hives, Swelling Nubain [Nalbuphine * Vomiting Patient's current medication list and adherence status to current therapy were reviewed by Specialty Pharmacy clinical pharmacist to identify any new drug interactions or non-compliance to therapy. Therapy continues to be appropriate for disease, patient response, and medical condition. Verification of therapeutic benefit and effectiveness with current therapy was completed. Adverse events, barriers in adherence, and side effects were assessed and addressed if applicable. Will proceed with refill with no changes in therapy - patient progressing towards achieving therapeutic goals based on medication-specific laboratory parameters, disease state markers and outcomes. Office/provider notes have been reviewed prior to dispensing the medication. Dispensing Note: Pt has filled medication through another pharmacy the last few months out of preference, but they now are on backorder of medication so she is transferring back to [facility] for refills at this time. Jefferson Vuong, PharmD Clinical Pharmacist, Oncology [facility] P: , F: Pool: P [facility] Pool #: [id number] 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 Patient confirmed: Yes Med/dose confirmed: Yes Supplies needed: No supplies needed Missed doses: No Estimated days supply on hand: 1 Copay amount: 0 Payment confirmed: Yes Delivery method: FedEx Signature required: No Delivery address: [facility] [address] [place], [place] [id number] Delivery date: 10/02/24 Questions or concerns for the pharmacist?: No Did you have any side effects believed to be related to this medication, that resulted in hospitalization?: No Current Outpatient Medications on File Prior to Visit Medication Sig asciminib (SCEMBLIX) 40 mg tablet Take 2 tablets (80 mg) by mouth once daily on an empty stomach, 1 hour before or [address] eating pantop[address]ole [address] (PROTONIX) 40 mg tablet Take 1 tablet by mouth once daily. asciminib (SCEMBLIX) 40 mg tablet Take 2 tablets (80 mg) by mouth once daily on an empty stomach, 1 hour before or 2 hours after eating allopurinol (ZYLOPRIM) 300 mg tablet Take 1 tablet by mouth once daily. potassium chloride (K-TAB) 10 mEq tablet Take 2 tablets by mouth once daily. ondansetron (ZOFRAN) 8 mg tablet Take 1 tablet by mouth every 8 hours as needed (For chemotherapy induced nausea and vomiting). acetaminophen (TYLENOL) 325 mg tablet Take 325 mg by mouth every 6 hours as needed. Ibuprofen 200 mg cap Take 1 capsule by mouth every 6 hours as needed. furosemide (LASIX) 20 mg tablet Take 1 tablet by mouth once daily. levothyroxine (SYNTHROID) 125 mcg tablet Take 125 mcg by mouth once daily. No current facility-administered medications on file prior to visit. [facility] CLINICAL ASSESSMENT - HEMATOLOGY ONCOLOGY V6: Ivent complete: No Assessment to use: Refill Lab monitoring inclusive of CBC, Chem-7, and other labs as pertinent for therapy: Yes Chemo cycle timing assessment: N/A Assessment of injection issues: N/A Current medication list (including drug interaction assessment): Yes Experience of adverse reactions to the medication: Yes Date of influenza vaccination reminder: 05/28/2024 Date of most recent vaccination assessment: 05/28/2024 Treatment Plan Information: Diagnosis: CML Previous treatment(s): bosulif New treatment regimen: Scemblix (asciminib) Starting Dose/Titration: 80mg Sig:Take 2 tablets (80 mg) by mouth once daily on an empty stomach, 1 hour before or 2 hours after eating Administration: - Take on an empty stomach (1 hour before or 2 hours after eating) - Swallow whole, take at the same time(s) every day Warnings: include but are not limited to - Bone marrow suppress (thrombocytopenia, anemia, and neutropenia) - can be G3/4 - Cardio toxicity (ischemic cardiac and ORTHOPEDIC PODIATRIST events, thrombotic and embolic events, HF reported) - GI Toxicity (pancreatitis) - HTN (G3/4 elevations possible, med onset 14 weeks) Side effects: include but are not limited to - HTN*, skin rash, low Ca/phos; elevated TC, TG, uric acid; diarrhea; N/V (min - low); elevated AST/ALT/T Bili; Fatigue; BAÑUELOS; musculoskeletal pain Monitoring: - CBC (every 2 weeks x 3 months, then monthly) - Lipase / Amylas (Mo (more content not included)... [facility] 09-28-2024 Miscellaneous Notes Patient would like to fill Scemblix through [facility], please sign attached prescription as appropriate. Marie Malhotra PharmD, ALEX, JENY Clinical Pharmacist, Oncology [facility] P: , F: Pool: P [facility] Pool #: [id number] documented in this encounter [facility] 09-28-2024 Telephone encounter Note Patient would like to fill Scemblix through [facility], please sign attached prescription as appropriate. Marie Malhotra PharmD, ALEX, JENY Clinical Pharmacist, Oncology [facility] P: , F: Pool: P [facility] Pool #: [id number] [facility] 09-28-2024 Telephone encounter Note I reached out to [facility] and to the patient. Transfers are pharmacy to pharmacy, therefore, [facility] will need to reach out to [facility] to initiate the transfer of the Rx. I contacted [facility] and a message will be given to the pharmacist to contact [facility] to transfer the Rx. Dr. Liz is currently out of the office. Alisha Romero LPN [facility] 09-28-2024 Miscellaneous Notes I reached out to [facility] and to the patient. Transfers are pharmacy to pharmacy, therefore, [facility] will need to reach out to [facility] to initiate the transfer of the Rx. I contacted [facility] and a message will be given to the pharmacist to contact [facility] to transfer the Rx. Dr. Liz is currently out of the office. Alisha Romero LPN Patient called stating she contacted [facility] to fill prescription Scemblix. She was informed that is not available. They do not know when they would get it in. Patient has 2 days left of medication. She states if we contact [facility] they will be able to transfer the prescription to another location. Patient says that will save her some money. Please advise patient. documented in this encounter [facility] 09-28-2024 Telephone encounter Note Patient called stating she contacted [facility] to fill prescription Scemblix. She was informed that is not available. They do not know when they would get it in. Patient has 2 days left of medication. She states if we contact [facility] they will be able to transfer the prescription to another location. Patient says that will save her some money. Please advise patient. [facility] Work Phone: 07-14-2024 Radiology Diagnostic study note [facility] Imaging Services [address] [place], [place] [id number] L/S Spine Bending Flex/Ext MR#: [id number] Acct: [id number] Name: LIBIA OLIVAS FRIDA Rep #: [id number] : 1975 F 49 From: Roverto Martinez MD PCP: Dr. Krystina Calle DO Status: REG CLI Study:L/S Spine Bending Flex/Ext Date of Exam : 07/14/24 Exam# [id number] Ordering Dr: Murray Cortez PROCEDURE: L/S SPINE BENDING FLEX/EXT 07/14/2024 REASON FOR EXAM: PAIN TECHNIQUE: 2 view of the lumbar spine FINDINGS: Vertebrae: No fracture. Discs: Mild multilevel disc space narrowing. Alignment: 5 mm of retrolisthesis of L5 on S1. This is unchanged on the flexionand extension views. Other: RAD/L/S Spine Bending Flex/Ext IMPRESSION: 5 mm of retrolisthesis of L5 on S1 unchanged on the flexion and extension views. Reading Location: [id number] CC: AZEB Love; Dr. Krystina Calle DO ~ Dye Box Operator: Signed [facility] 07-01-2024 Note HNO ID: [id number] Author: FABIANO LIZ DO Service: ? Author Type: Physician Type: Progress Notes Filed: 07/01/2024 11:54 Note Text: Diagnosis: 1) Chronic phase CML. HPI: The patient is a 49-year-old female with past medical history significant for hypothyroidism, sleep apnea (CPAP) and obesity. Was in [place]. On return had found to have elevated triglycerides when had labs done by Dr. Mckeon as part of screening labs for weight loss medications. Had recheck of triglycerides (and a CBC since hadn't had in a year) at [facility] and incidental leukocytosis with WBC count 135.68K. Hgb and platelets normal. Recheck at [facility] 07/21/2022 revealed total white count 131.8 thousand. Hemoglobin 12.3 g/dL. Platelet count 211,000. Absolute neutrophil count 90,000. Absolute lymphocyte count 8000. 15% bands, 2% monocytes, 3% eosinophils, 6% metamyelocytes, 5% myelocytes, 3% promyelocytes and 6% blasts were quantitated on the differential. She does not have any chronic recurring fever or drenching night sweats. Normal appetite. No early satiety. No left upper quadrant pain. No bleeding issues or unexplained bruising. Had partial hysterectomy previously. No longer has menses. No history of cardiac disease, renal disease or pancreatic disease. No chronic respiratory illnesses. Uses omeprazole on occasion as needed. Previous therapy: 1) Bosutinib. Began 08/11/2022. Current therapy: 1) Asciminib. Changed so she could resume PPI. Presents for ongoing oncologic management. Interim history: Shortly after starting Scemblix, she had worsening right sided sciatica pain. Evidently years ago she had a blood patch done following an epidural after delivery of one of her children. This was done on the right paralumbar region. She has had occasional sciatica pain but significantly worsened after starting Scemblix. Plain film was done at [facility] indicating disc space narrowing at L4-L5 and L5-S1 most pronounced at the L5-S1 space. There was an approximate 3 mm retrolisthesis of L5 on S1 and approximately 2 mm anterolisthesis of L4 on L5. Other very mild degenerative changes lumbar spine were noted. She is scheduled for MRI August 10. She has some cervical pain. No other pain. No other side effects from Scemblix. PMH, medications and allergies personally reviewed by me today. Any changes documented in appropriate section. ROS: Constitutional: See HPI. Neuro: Denies BAÑUELOS, vertigo, dizziness and imbalance. Denies symptoms of neuropathy. HEENT: No recent change in voice, vision or hearing. Resp: Denies cough, wheeze and hemoptysis. Denies shortness of breath at rest. CVS: Denies exertional chest pain, PND, orthopnea and LE edema. GI: See HPI. : Denies dysuria or gross hematuria. No symptoms of bladder outlet obstruction. Endo: Denies hot flashes. Denies polyuria and polydipsia. Denies heat and cold intolerance. Musculoskeletal: Chronic right posterior hip pain--see above. Derm: See HPI. Heme: Denies unusual bleeding and unexplained bruising. Psych: Normal mood. PHYSICAL EXAM: Vitals: Blood pressure 155/82, pulse 73, temperature 37.1 ?C (98.7 ?F), temperature source Temporal, weight 104.6 kg (230 lb 8 oz), SpO2 97%. Well-appearing and in no acute distress. EYES: Sclerae are anicteric bilaterally. LYMPHATIC: There is no palpable cervical, supraclavicular adenopathy. RESPIRATORY: Inspiratory breath sounds are of normal intensity in all thakur. No rales, wheezes or rhonchi. CARDIOVASCULAR: Rhythm is regular. ABDOMEN: The abdomen is nondistended. Cannot appreciate splenomegaly. Extremities: No swelling currently. SKIN: No jaundice. Absent patellar reflex on the right. Straight leg test on right positive. ASSESSMENT/PLAN: (C92.10) CML (chronic myelocytic leukemia) (HCC) (primary encounter diagnosis) (K21.9) Gastroesophageal reflux disease, unspecified whether esophagitis Right sided sciatica. 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 She had not had any bleeding or bruising issues. No recent illnesses at the time of presentation. No fever, night sweats or early satiety. -Initial diagnostic PCR for BCR/ABL on peripheral blood demonstrated both p210 and p190 fusion transcripts with p210 being far greater. -MR for p210 at 9 months. p190 undetectable in under 2 months. -DMR. -Tolerating Scemblix very well. Reviewed CBC. Normal. - Discussed a trial of prednisone to see if gives her some relief from sciatica. She has an appointment with orthospine following upcoming MRI. Also advised her to resume PPI particularly since going on prednisone. Plan: -Continue Scemblix. - Lab work including CBC/CMP and PCR for BCR::ABL for both the P190 and P210 transcript in September. -Rx pantoprazole 40 mg once daily. -Rx prednisone taper. P (more content not included)... [facility] 07-01-2024 History of Presen t illness Narrative Diagnosis: 1) Chronic phase CML. HPI: The patient is a 49-year-old female with past medical history significant for hypothyroidism, sleep apnea (CPAP) and obesity. Was in [place]. On return had found to have elevated triglycerides when had labs done by Dr. Mckeon as part of screening labs for weight loss medications. Had recheck of triglycerides (and a CBC since hadn't had in a year) at [facility] and incidental leukocytosis with WBC count 135.68K. Hgb and platelets normal. Recheck at [facility] 07/21/2022 revealed total white count 131.8 thousand. Hemoglobin 12.3 g/dL. Platelet count 211,000. Absolute neutrophil count 90,000. Absolute lymphocyte count 8000. 15% bands, 2% monocytes, 3% eosinophils, 6% metamyelocytes, 5% myelocytes, 3% promyelocytes and 6% blasts were quantitated on the differential. She does not have any chronic recurring fever or drenching night sweats. Normal appetite. No early satiety. No left upper quadrant pain. No bleeding issues or unexplained bruising. Had partial hysterectomy previously. No longer has menses. No history of cardiac disease, renal disease or pancreatic disease. No chronic respiratory illnesses. Uses omeprazole on occasion as needed. Previous therapy: 1) Bosutinib. Began 08/11/2022. Current therapy: 1) Asciminib. Changed so she could resume PPI. Presents for ongoing oncologic management. Interim history: Shortly after starting Scemblix, she had worsening right sided sciatica pain. Evidently years ago she had a blood patch done following an epidural after delivery of one of her children. This was done on the right paralumbar region. She has had occasional sciatica pain but significantly worsened after starting Scemblix. Plain film was done at [facility] indicating disc space narrowing at L4-L5 and L5-S1 most pronounced at the L5-S1 space. There was an approximate 3 mm retrolisthesis of L5 on S1 and approximately 2 mm anterolisthesis of L4 on L5. Other very mild degenerative changes lumbar spine were noted. She is scheduled for MRI August 10. She has some cervical pain. No other pain. No other side effects from Scemblix. PMH, medications and allergies personally reviewed by me today. Any changes documented in appropriate section. ROS: Constitutional: See HPI. Neuro: Denies BAÑUELOS, vertigo, dizziness and imbalance. Denies symptoms of neuropathy. HEENT: No recent change in voice, vision or hearing. Resp: Denies cough, wheeze and hemoptysis. Denies shortness of breath at rest. CVS: Denies exertional chest pain, PND, orthopnea and LE edema. GI: See HPI. : Denies dysuria or gross hematuria. No symptoms of bladder outlet obstruction. Endo: Denies hot flashes. Denies polyuria and polydipsia. Denies heat and cold intolerance. Musculoskeletal: Chronic right posterior hip pain--see above. Derm: See HPI. Heme: Denies unusual bleeding and unexplained bruising. Psych: Normal mood. PHYSICAL EXAM: Vitals: Blood pressure 155/82, pulse 73, temperature 37.1 C (98.7 F), temperature source Temporal, weight 104.6 kg (230 lb 8 oz), SpO2 97%. Well-appearing and in no acute distress. EYES: Sclerae are anicteric bilaterally. LYMPHATIC: There is no palpable cervical, supraclavicular adenopathy. RESPIRATORY: Inspiratory breath sounds are of normal intensity in all thakur. No rales, wheezes or rhonchi. CARDIOVASCULAR: Rhythm is regular. ABDOMEN: The abdomen is nondistended. Cannot appreciate splenomegaly. Extremities: No swelling currently. SKIN: No jaundice. Absent patellar reflex on the right. Straight leg test on right positive. ASSESSMENT/PLAN: (C92.10) CML (chronic myelocytic leukemia) (HCC) (primary encounter diagnosis) (K21.9) Gastroesophageal reflux disease, unspecified whether esophagitis Right sided sciatica. 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 She had not had any bleeding or bruising issues. No recent illnesses at the time of presentation. No fever, night sweats or early satiety. -Initial diagnostic PCR for BCR/ABL on peripheral blood demonstrated both p210 and p190 fusion transcripts with p210 being far greater. -MR for p210 at 9 months. p190 undetectable in under 2 months. -DMR. -Tolerating Scemblix very well. Reviewed CBC. Normal. - Discussed a trial of prednisone to see if gives her some relief from sciatica. She has an appointment with orthospine following upcoming MRI. Also advised her to resume PPI particularly since going on prednisone. Plan: -Continue Scemblix. - Lab work including CBC/CMP and PCR for BCR::ABL for both the P190 and P210 transcript in September. -Rx pantoprazole 40 mg once daily. -Rx prednisone taper. Portions of this documentation were copied and pasted from my previous office visit note dated 04/27/2024 in order to provide a cohesive continuity of the history. The note has been reviewed and edited and updated as necessary. Fabiano Liz DO documented in this encounter [facility] 06-26-2024 Telephone encounter Note Referrals have been faxed to [facility], confirmation scanned into docs. Mode Moss [facility] 06-26-2024 Miscellaneous Notes Referrals have been faxed to [facility], confirmation scanned into docs. Mode Moss Called patient to review XR of spine. Recommend MRI lumbar to further evaluate. Should also get in to see ortho. Pt is agreeable. Will need imaging at [facility]. PSR: Can you please fax orders and get her set up to have MRI lumbar at [facility] please? Referral placed to ORTHO also at [facility]. Esha Read APRN.SHOVEL LOG LOADER OPERATOR documented in this encounter [facility] 06-26-2024 Telephone encounter Note Called patient to review XR of spine. Recommend MRI lumbar to further evaluate. Should also get in to see ortho. Pt is agreeable. Will need imaging at [facility]. PSR: Can you please fax orders and get her set up to have MRI lumbar at [facility] please? Referral placed to ORTHO also at [facility]. Esha Read APRN.SHOVEL LOG LOADER OPERATOR [facility] 06-19-2024 Radiology Diagnostic study note [facility] Imaging Services [address] [place] [address] Lumbar Spine 2 or 3 Views MR#: [id number] Acct: [id number] Name: LIBIA OLIVAS FRIDA Rep #: [id number] : 1975 F 49 From: Ezekiel Rock DO PCP: Dr. Krystina Calle DO Status: REG CLI Study:Lumbar Spine 2 or 3 Views Date of Exam: 06/18/24 Exam# [id number] Ordering Dr: Milana harrison,Out o. PROCEDURE: LUMBAR SPINE 2 OR 3 VIEWS 06/18/2024 REASON FOR EXAM: ACUTE LOW BACK PAIN TECHNIQUE: 3 view(s) of the lumbar spine COMPARISON: MRI lumbar spine dated 12/29/2021 FINDINGS: There are 5 lumbar-type vertebral bodies below the last set of paired ribs. Thevertebral body heights are within normal limits. There is a proximally 3 mm of retrolisthesis of L5 in relationship to S1. Thereis a proximally 2 mm of anterolisthesis of L4 in relationship to L5. Very mild degenerative changes of the lumbar spine are noted. There is disc space narrowing involving the L4-L5 and L5-S1 disc spaces. The remaining disc spaces appear to be well preserved. Sacrum appears grossly unremarkable. RAD/Lumbar Spine 2 or 3 Views IMPRESSION: Degenerative disc disease involving the L4-L5 and L5-S1 disc spaces. This is most pronounced at the L5-S1 disc space. Recommendation: An MRI of the lumbar spine may be of value for further evaluation of the disc space and nerve roots in this patient who has having increasing low back pain with radiculopathy type symptomsand abnormal plain film findings. Reading Location: [id number] CC: ESHA READ; Dr. Krystina Calle DO ~ Dye Box Operator: Signed [facility] 06-18-2024 History of Presen t illness Narrative Diagnosis: 1) Chronic phase CML. HPI: The patient is a 49-year-old female with past medical history significant for hypothyroidism, sleep apnea (CPAP) and obesity. Was in [place]. On return had found to have elevated triglycerides when had labs done by Dr. Mckeon as part of screening labs for weight loss medications. Had recheck of triglycerides (and a CBC since hadn't had in a year) at [facility] and incidental leukocytosis with WBC count 135.68K. Hgb and platelets normal. Recheck at [facility] 07/21/2022 revealed total white count 131.8 thousand. Hemoglobin 12.3 g/dL. Platelet count 211,000. Absolute neutrophil count 90,000. Absolute lymphocyte count 8000. 15% bands, 2% monocytes, 3% eosinophils, 6% metamyelocytes, 5% myelocytes, 3% promyelocytes and 6% blasts were quantitated on the differential. She does not have any chronic recurring fever or drenching night sweats. Normal appetite. No early satiety. No left upper quadrant pain. No bleeding issues or unexplained bruising. Had partial hysterectomy previously. No longer has menses. No history of cardiac disease, renal disease or pancreatic disease. No chronic respiratory illnesses. Uses omeprazole on occasion as needed. Current therapy: 1) Bosutinib. Began 08/11/2022. Presents for ongoing oncologic management. Interim history: Back pain starting after blood patch 21 years ago, nerve sheath disruption indicated on MRI Dec [address] Felix. Stenosis. She has not seen ortho or spine in the past. Physical job, Worsening pain starting 3 days after starting new medication. Now constant low back pain. Also has bulging disc C spine causing pain which is also more promenent. Sciatic pain to knee regularly all the way down leg if laying down. Unable to lay flat or on right - r sciatic Heat helps, taking ibuprofen and tylenol 2-3 times daily. Has been following with Chiropractor for several years was regularly seeing once ever few weeks, now up to a few times a week. Helps for a tiny bit, maybe a day. Bowel habits have changed since being on the bosutinib, previously having diarrhea, now can go a few days without a BM. PMH, medications and allergies personally reviewed by me today. Any changes documented in appropriate section. ROS: Constitutional: No fevers, chills or NS. PHYSICAL EXAM: Vitals: Blood pressure 146/86, pulse (!) 53, temperature 37 C (98.6 F), temperature source Temporal, weight 105 kg (231 lb 8 oz), SpO2 98%. Well-appearing and in no acute distress. EYES: Sclerae are anicteric bilaterally. LYMPHATIC: There is no palpable cervical, supraclavicular adenopathy. RESPIRATORY: Inspiratory breath sounds are of normal intensity in all thakur. No rales, wheezes or rhonchi. CARDIOVASCULAR: Rhythm is regular. ABDOMEN: The abdomen is nondistended. Cannot appreciate splenomegaly. Extremities: No swelling currently. SKIN: No jaundice. LABS: ASSESSMENT/PLAN: (C92.10) CML (chronic myelocytic leukemia) (HCC) (primary encounter diagnosis) (K21.9) Gastroesophageal reflux disease, unspecified whether esophagitis present (Z86.39) History of iron deficiency (K21.9) Gastroesophageal reflux disease, unspecified whether esophagitis Assessment: -The patient is a 49-year-old female incidentally found to have leukocytosis with immature granulocytes and mild splenomegaly suggestive of CML. She had not had any bleeding or bruising issues. No recent illnesses at the time of presentation. No fever, night sweats or early satiety. -Initial diagnostic PCR for BCR/ABL on peripheral blood demonstrated both p210 and p190 fusion transcripts with p210 being far greater. -MR for p210 at 9 months. p190 undetectable and under 2 months. -Now in DMR. -She was tolerating bosutinib overall well other than the prevents her from using PPI and reflux continues to be a significant symptom for her. -She was rotated to Scemblix so she can resume PPI. Started about a month ago Plan: -Continue with CBC/CMP in 3 months, as scheduled Acute on chronic lowe back pain - started >20 years ago following blood patch per MRI from 2021 nerve sheath disruption, spinal stenosis - pain worse and now constant after starting Scemblix - following with chiropractor - lipase pending - will plan for xray to be done at [facility] - also recommended establishing with ortho for chronic spinal issues. - follow up pending XR, otherwise keep future appts as scheduled Esha Read APRN.SHOVEL LOG LOADER OPERATOR I spent a total of 35 minutes on the date of the service which included preparing to see the patient, [id number] patient care, completing clinical documentation, obtaining and/or reviewing separately obtained history, performing a medically appropriate examination, and ordering medications, tests, or procedures. Portions of this note including HPI, ROS, impression/plan may have been copied forward as to provide important historical information essential in contributing to medical decision making. Documentation has been reviewed and edited as necessary to support clinical decision making for today's visit and to reflect my own independent evaluation of this patient. documented in this encounter [facility] 06-18-2024 Note HNO ID: [id number] Author: ESHA READ, ? Service: ? Author Type: Nurse Practitioner Type: Progress Notes Filed: 06/19/2024 12:27 Note Text: Diagnosis: 1) Chronic phase CML. HPI: The patient is a 49-year-old female with past medical history significant for hypothyroidism, sleep apnea (CPAP) and obesity. Was in [place]. On return had found to have elevated triglycerides when had labs done by Dr. Mckeon as part of screening labs for weight loss medications. Had recheck of triglycerides (and a CBC since hadn't had in a year) at [facility] and incidental leukocytosis with WBC count 135.68K. Hgb and platelets normal. Recheck at [facility] 07/21/2022 revealed total white count 131.8 thousand. Hemoglobin 12.3 g/dL. Platelet count 211,000. Absolute neutrophil count 90,000. Absolute lymphocyte count 8000. 15% bands, 2% monocytes, 3% eosinophils, 6% metamyelocytes, 5% myelocytes, 3% promyelocytes and 6% blasts were quantitated on the differential. She does not have any chronic recurring fever or drenching night sweats. Normal appetite. No early satiety. No left upper quadrant pain. No bleeding issues or unexplained bruising. Had partial hysterectomy previously. No longer has menses. No history of cardiac disease, renal disease or pancreatic disease. No chronic respiratory illnesses. Uses omeprazole on occasion as needed. Current therapy: 1) Bosutinib. Began 08/11/2022. Presents for ongoing oncologic management. Interim history: Back pain starting after blood patch 21 years ago, nerve sheath disruption indicated on MRI Dec [address] Felix. Stenosis. She has not seen ortho or spine in the past. Physical job, Worsening pain starting 3 days after starting new medication. Now constant low back pain. Also has bulging disc C spine causing pain which is also more promenent. Sciatic pain to knee regularly all the way down leg if laying down. Unable to lay flat or on right - r sciatic Heat helps, taking ibuprofen and tylenol 2-3 times daily. Has been following with Chiropractor for several years was regularly seeing once ever few weeks, now up to a few times a week. Helps for a tiny bit, maybe a day. Bowel habits have changed since being on the bosutinib, previously having diarrhea, now can go a few days without a BM. PMH, medications and allergies personally reviewed by me today. Any changes documented in appropriate section. ROS: Constitutional: No fevers, chills or NS. PHYSICAL EXAM: Vitals: Blood pressure 146/86, pulse (!) 53, temperature 37 ?C (98.6 ?F), temperature source Temporal, weight 105 kg (231 lb 8 oz), SpO2 98%. Well-appearing and in no acute distress. EYES: Sclerae are anicteric bilaterally. LYMPHATIC: There is no palpable cervical, supraclavicular adenopathy. RESPIRATORY: Inspiratory breath sounds are of normal intensity in all thakur. No rales, wheezes or rhonchi. CARDIOVASCULAR: Rhythm is regular. ABDOMEN: The abdomen is nondistended. Cannot appreciate splenomegaly. Extremities: No swelling currently. SKIN: No jaundice. LABS: ASSESSMENT/PLAN: (C92.10) CML (chronic myelocytic leukemia) (HCC) (primary encounter diagnosis) (K21.9) Gastroesophageal reflux disease, unspecified whether esophagitis present (Z86.39) History of iron deficiency (K21.9) Gastroesophageal reflux disease, unspecified whether esophagitis Assessment: -The patient is a 49-year-old female incidentally found to have leukocytosis with immature granulocytes and mild splenomegaly suggestive of CML. She had not had any bleeding or bruising issues. No recent illnesses at the time of presentation. No fever, night sweats or early satiety. -Initial diagnostic PCR for BCR/ABL on peripheral blood demonstrated both p210 and p190 fusion transcripts with p210 being far greater. -MR for p210 at 9 months. p190 undetectable and under 2 months. -Now in DMR. -She was tolerating bosutinib overall well other than the prevents her from using PPI and reflux continues to be a significant symptom for her. -She was rotated to Scemblix so she can resume PPI. Started about a month ago Plan: -Continue with CBC/CMP in 3 months, as scheduled Acute on chronic lowe back pain - started >20 years ago following blood patch per MRI from 2021 nerve sheath disruption, spinal stenosis - pain worse and now constant after starting Scemblix - following with chiropractor - lipase pending - will plan for xray to be done at [facility] - also recommended establishing with ortho for chronic spinal issues. - follow up pending XR, otherwise keep future appts as scheduled Esha Read APRN.SHOVEL LOG LOADER OPERATOR I spent a total of 35 minutes on the date of the service which included preparing to see the patient, [id number] patient care, completing clinical documentation, obtaining and/or reviewing separately obtained history, performing a medically appropriate examination, and orderi (more content not included)... [facility] 06-15-2024 Telephone encounter Note I called and spoke to Libia and schedule her to see Esha Roro on 06/18/24 she was schedule already that day for blood pressure check Patient confirmed this date and time Judith Yeboah [facility] 06-15-2024 Miscellaneous Notes I called and spoke to Libia and schedule her to see Esha Roro on 06/18/24 she was schedule already that day for blood pressure check Patient confirmed this date and time Judith Duke Pss That's good. Can we set up OV with GLOBAL MARKETING MANAGER to assess back pain further? Fabiano Liz DO Copied from [facility]: LIPASE 18 13-75 U/L Please note: LIPASE revised reference range effective 22. New Lipase methodology. Expected to produce lower values than the previous assay method. NEW Reference Range: 13 - 75 U/L Ligia Mtz RN Patient would like to have lab checked at [facility]. Order faxed. Patient informed of Dr. Liz's response and stated understanding. Ligia Mtz RN Thank you. Order filed. If lipase is normal then we will obtain plain film x-rays and schedule an GLOBAL MARKETING MANAGER visit. Fabiano Liz DO Dr. Liz would like to check a lipase today. Called patient, no answer, left a VM requesting a call back. Order pended. Ligia Mtz RN ORAL ANTI-CANCER AGENTS FOLLOW-UP PHONE CALL/VISIT Patient identified by name and date of . YES Patient started asciminib 06/03 for Chronic Myelogenous Leukemia (CML). SYMPTOM ASSESSMENT Headache: No Visual Changes: Yes blurry vision that happens when my neck starts hurting, that disc just throws everything off. Goes to a chiropractor which helps. Dizziness: No Do you have any periods of confusion? No Mood changes: No Mouth or throat pain: No Appetite: no changes in appetite, appetite fair Taste changes: No Nausea: Yes every once in awhile-- possible acid reflux Vomiting: No Heartburn: Yes: taking tums for acid reflux. Weight gain/loss: scale is stable but has been told it looks like she has lost weight. 225-230 lbs. Episodes of palpitations/chest discomfort/pressure/pain No Shortness of breath: No Cough: No Diarrhea: no Constipation: yes, started Miralax. Bladder/Urinary Changes: None Pain: Yes, pain rated 2-5 on a scale of 0-10 (0=none, 10=worst). Location: back pain mid and lower back. Also has neck discomfort I have a disc that keeps slipping out. Character: aching. Duration: last week and a half Frequency: occurs constantly. Not a new pain but worse from baseline. Going to a chiropractor twice a week which helps with the pain for a day. Ibuprofen 4 tablets and tylenol 2 tablets together; took twice yesterday. Patient has not taken anything for pain today because she is not on her feet. Aggravating: sitting, lifting, bending over with mopping (5/10), and up/down steps Alleviating: ibuprofen/tylenol, heat helps. Fever: No Chills: No Cold sensitivity: No Numbness/weakness: Yes in my arms but I think that's also related to my neck, that's not a new thing Edema: Not anymore than normal. Skin changes: my face is breaking out like crazy, cheeks, nose, mouth has pimples. Using normal soap and water. Started after asciminib. Itching: No Yellowing of skin or eyes: No Musculoskeletal/joint changes/issues achy at times not any worse, the back is the worst Bleeding issues: No Activity Level: okay Do you need to take naps? No Does the patient need interventions or same day appointment: will discuss pain with Dr. Liz. ADDITIONAL FOLLOW UP: The next outreach call is due on: TBD and was scheduled patient instructed to call with any new questions/concerns. The following lab tests are due: CBC/lipase/BP check 06/18 Verified patient is aware of next appointment in the cancer center: Yes. Verified patient verbalized how to correctly refill the oral agent prescription. Yes Does the patient have any financial difficulties affording this medication? No Patient verbalizes understanding of when to seek Medical Attention? YES Patient verbalizes understanding of after-hours and weekend phone number? YES Patient verbalized importance of medication compliance in taking the oral agent as prescribed. Patient instructed to call if unable to comply. Ligia Mtz RN ORAL ANTI-CANCER AGENTS FOLLOW-UP PHONE CALL/VISIT Called patient, no answer, left a VM requesting a call back from patient. Ligia Mtz RN documented in this encounter [facility] 06-15-2024 Telephone encounter Note That's good. Can we set up OV with GLOBAL MARKETING MANAGER to assess back pain further? Fabiano Liz DO [facility] 06-15-2024 Telephone encounter Note Copied from [facility]: LIPASE 18 13-75 U/L Please note: LIPASE revised reference range effective 22. New Lipase methodology. Expected to produce lower values than the previous assay method. NEW Reference Range: 13 - 75 U/L Ligia Mtz RN [facility] 06-15-2024 Telephone encounter Note Patient would like to have lab checked at [facility]. Order faxed. Patient informed of Dr. Liz's response and stated understanding. Ligia Mtz RN [facility] 06-15-2024 Telephone encounter Note Thank you. Order filed. If lipase is normal then we will obtain plain film x-rays and schedule an GLOBAL MARKETING MANAGER visit. Fabiano Liz DO [facility] 06-15-[address] Liz would like to check a lipase today. Called patient, no answer, left a VM requesting a call back. Order pended. Ligia Mtz RN [facility] 06-15-2024 Telephone encounter Note ORAL ANTI-CANCER AGENTS FOLLOW-UP PHONE CALL/VISIT Patient identified by name and date of . YES Patient started asciminib 06/03 for Chronic Myelogenous Leukemia (CML). SYMPTOM ASSESSMENT Headache: No Visual Changes: Yes blurry vision that happens when my neck starts hurting, that disc just throws everything off. Goes to a chiropractor which helps. Dizziness: No Do you have any periods of confusion? No Mood changes: No Mouth or throat pain: No Appetite: no changes in appetite, appetite fair Taste changes: No Nausea: Yes every once in awhile-- possible acid reflux Vomiting: No Heartburn: Yes: taking tums for acid reflux. Weight gain/loss: scale is stable but has been told it looks like she has lost weight. 225-230 lbs. Episodes of palpitations/chest discomfort/pressure/pain No Shortness of breath: No Cough: No Diarrhea: no Constipation: yes, started Miralax. Bladder/Urinary Changes: None Pain: Yes, pain rated 2-5 on a scale of 0-10 (0=none, 10=worst). Location: back pain mid and lower back. Also has neck discomfort I have a disc that keeps slipping out. Character: aching. Duration: last week and a half Frequency: occurs constantly. Not a new pain but worse from baseline. Going to a chiropractor twice a week which helps with the pain for a day. Ibuprofen 4 tablets and tylenol 2 tablets together; took twice yesterday. Patient has not taken anything for pain today because she is not on her feet. Aggravating: sitting, lifting, bending over with mopping (5/10), and up/down steps Alleviating: ibuprofen/tylenol, heat helps. Fever: No Chills: No Cold sensitivity: No Numbness/weakness: Yes in my arms but I think that's also related to my neck, that's not a new thing Edema: Not anymore than normal. Skin changes: my face is breaking out like crazy, cheeks, nose, mouth has pimples. Using normal soap and water. Started after asciminib. Itching: No Yellowing of skin or eyes: No Musculoskeletal/joint changes/issues achy at times not any worse, the back is the worst Bleeding issues: No Activity Level: okay Do you need to take naps? No Does the patient need interventions or same day appointment: will discuss pain with Dr. Liz. ADDITIONAL FOLLOW UP: The next outreach call is due on: TBD and was scheduled patient instructed to call with any new questions/concerns. The following lab tests are due: CBC/lipase/BP check 06/18 Verified patient is aware of next appointment in the cancer center: Yes. Verified patient verbalized how to correctly refill the oral agent prescription. Yes Does the patient have any financial difficulties affording this medication? No Patient verbalizes understanding of when to seek Medical Attention? YES Patient verbalizes understanding of after-hours and weekend phone number? YES Patient verbalized importance of medication compliance in taking the oral agent as prescribed. Patient instructed to call if unable to comply. Ligia Mtz RN [facility] 06-12-2024 Telephone encounter Note ORAL ANTI-CANCER AGENTS FOLLOW-UP PHONE CALL/VISIT Called patient, no answer, left a VM requesting a call back from patient. Ligia Mtz RN [facility] 05-13-2024 Telephone encounter Note Patient states she is taking potassium 10 meq, 2 tabs, once a day (20 meq). She is only taking Lasix prn and it's been a while since she's used that. Alisha Romero LPN [facility] 05-13-2024 Miscellaneous Notes Patient states she is taking potassium 10 meq, 2 tabs, once a day (20 meq). She is only taking Lasix prn and it's been a while since she's used that. Alisha Romero LPN documented in this encounter [facility] 05-13-2024 Miscellaneous Notes Refill request received from [facility] Next follow up 11/04/24 documented in this encounter [facility] 05-13-2024 Telephone encounter Note Refill request received from [facility] Next follow up 11/04/24 [facility] 05-05-2024 Telephone encounter Note ORAL ANTI-CANCER AGENTS EDUCATION patient called today for oral medication education of asciminib for Chronic Myelogenous Leukemia (CML) Anticipated/Scheduled start date: TBD READINESS TO LEARN Cognitive Ability: Alert and oriented Motivation to Learn: Interested Family Support: Unable to assess - Family not present Instruction Provided to: Patient Patient learns best by: Multiple Methods Factors affecting learning: None Physical limitation affecting learning: None SANTIAGO ASSESSMENT: 1.) Verified that patient knows that the oral agents are for cancer and are taken by mouth. Yes 2.) Medication review completed during visit. No 3.) Patient is able to swallow pills. Yes 4.) Patient is able to read the drug label/information. Yes 5.) Patient is able to open the medication bottles and packages. Yes 6.) Has patient taken other pills for cancer? YES, please explain: currently on bosutinib but will be switching to asciminib d/t needing to be on a PPI. 7.) Is patient experiencing any symptoms that would affect their ability to keep down pills, for example nausea or vomiting? No 8.) Verified that patient understands prescription delivery, benefit investigation and refill process. Yes DRUG-SPECIFIC EDUCATION: 1.) Verified patient knows the drug name. Yes 2.) Verified patient understands the dose and schedule of oral anti cancer agent. Yes 3.) Verified patient knows what to do if a medication dose is missed. Yes 4.) Verified patient understands where to store the drug. Yes 5.) Verified patient understands potential side effects and how to manage them. Yes 6.)Verified patient understands handling precautions of oral anti cancer agent. Yes 7.) Verified patient was given written instructions and understands when and whom to call with questions. Yes 8.) Verified patient understands where and how to return drug. Yes 9.) Verified patient received drug specific adult education handout and neutropenic wallet card Yes EVALUATE: The patient demonstrated an understanding of all the above education using the teach-back method. Yes Instructed to call us with any questions, concerns, and/or unresolved symptoms. Will continue to follow up and provide reinforcement of teaching topics as needed. Ligia Mtz RN [facility] 05-05-2024 Miscellaneous Notes ORAL ANTI-CANCER AGENTS EDUCATION patient called today for oral medication education of asciminib for Chronic Myelogenous Leukemia (CML) Anticipated/Scheduled start date: TBD READINESS TO LEARN Cognitive Ability: Alert and oriented Motivation to Learn: Interested Family Support: Unable to assess - Family not present Instruction Provided to: Patient Patient learns best by: Multiple Methods Factors affecting learning: None Physical limitation affecting learning: None SANTIAGO ASSESSMENT: 1.) Verified that patient knows that the oral agents are for cancer and are taken by mouth. Yes 2.) Medication review completed during visit. No 3.) Patient is able to swallow pills. Yes 4.) Patient is able to read the drug label/information. Yes 5.) Patient is able to open the medication bottles and packages. Yes 6.) Has patient taken other pills for cancer? YES, please explain: currently on bosutinib but will be switching to asciminib d/t needing to be on a PPI. 7.) Is patient experiencing any symptoms that would affect their ability to keep down pills, for example nausea or vomiting? No 8.) Verified that patient understands prescription delivery, benefit investigation and refill process. Yes DRUG-SPECIFIC EDUCATION: 1.) Verified patient knows the drug name. Yes 2.) Verified patient understands the dose and schedule of oral anti cancer agent. Yes 3.) Verified patient knows what to do if a medication dose is missed. Yes 4.) Verified patient understands where to store the drug. Yes 5.) Verified patient understands potential side effects and how to manage them. Yes 6.)Verified patient understands handling precautions of oral anti cancer agent. Yes 7.) Verified patient was given written instructions and understands when and whom to call with questions. Yes 8.) Verified patient understands where and how to return drug. Yes 9.) Verified patient received drug specific adult education handout and neutropenic wallet card Yes EVALUATE: The patient demonstrated an understanding of all the above education using the teach-back method. Yes Instructed to call us with any questions, concerns, and/or unresolved symptoms. Will continue to follow up and provide reinforcement of teaching topics as needed. Ligia Mtz RN documented in this encounter [facility] 04-28-2024 History of Presen t illness Narrative [facility] received prescription(s) for Scemblix [address] Liz's office. Benefits investigation was conducted, indicating that a prior authorization is required by patient's insurance plan with [employer]. Encounter will be updated once prior authorization has been submitted by [facility]. Margaret Zaragoza WOOD GRINDER documented in this encounter [facility] 04-28-2024 Note HNO ID: [id number] Author: JEFFERSON VUONG RPh Service: ? Author Type: Pharmacist Type: Progress Notes Filed: 06/01/2024 11:47 Note Text: [facility] received prescription(s) for asciminib from Dr. Liz's office. Benefits investigation was conducted, indicating that a prior authorization is required. PA was approved with details listed below: Plan Name: [employer] / Rx Benefits Commercial [place] reference number: Prior Auth (EOC) ID: [id number] Approval Dates: 05/27/24 - 05/26/25 Pt's copay is $0 (copay card applied). Shipment has been arranged, and pt will receive medication(s) on 06/02/24. Pt has been instructed to follow-up with clinic to confirm start date. A full drug interaction report was conducted, and no pertinent interactions identified. I reviewed with Pepper appropriate dose and dosing frequency, administration directions (Take 2 tablets (80 mg) by mouth once daily on an empty stomach, 1 hour before or 2 hours after eating), potential side effects, ability to self-administer and proper storage and handling requirements. She expressed understanding of the information we provided today, and received our contact information for the pharmacy if she had any other questions. Office/provider notes have been reviewed prior to dispensing the medication. PAST MEDICAL HISTORY Diagnosis Date Hypothyroid Obesity Sleep apnea Current Outpatient Medications on File Prior to Visit Medication Sig asciminib (SCEMBLIX) 40 mg tablet Take 2 tablets (80 mg) by mouth once daily on an empty stomach, 1 hour before or 2 hours after eating bosutinib (BOSULIF) 400 mg tablet TAKE 1 TABLET BY MOUTH ONCE DAILY WITH FOOD ondansetron (ZOFRAN) 8 mg tablet Take 1 tablet by mouth every 8 hours as needed (For chemotherapy induced nausea and vomiting). acetaminophen (TYLENOL) 325 mg tablet Take 325 mg by mouth every 6 hours as needed. Ibuprofen 200 mg cap Take by mouth every 6 hours as needed. furosemide (LASIX) 20 mg tablet Take 1 tablet by mouth once daily. (Patient taking differently: Take 20 mg by mouth as needed.) levothyroxine (SYNTHROID) 125 mcg tablet Take 125 mcg by mouth once daily. No current facility-administered medications on file prior to visit. ALLERGIES Allergen Reactions Iv Dye [Iodinated C* Hives, Swelling Nubain [Nalbuphine * Vomiting Problem List Noted Noted By Resolved Resolved By Intradermal nevus 06/14/2015 Katheryn Dinh PA-C No Sebaceous cyst 05/23/2015 Chau Preston MD No Melanocytic nevi of scalp and neck 05/23/2015 Chau Preston MD No Other specified disorder of gallbladder 09/07/2009 Chau Preston MD No 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 Patient confirmed: Yes Med/dose confirmed: Yes Supplies needed: Welcome packet Missed doses: No Estimated days supply on hand: 0 Next cycle/dose due: (Per Dr. Liz's discretion) Copay amount: 30 Copay form of payment: (Copay Card) Payment confirmed: Yes Delivery method: FedEx Signature required: Waived on patient request Delivery address: [address] [place] [address] Delivery date: 06/02/24 Questions or concerns for the pharmacist?: Yes Patient questions/concerns: Medication cost, Co-pay/assistance programs, Medication dose, Medication route, Medication storage, Side effects, Delivery Did you have any side effects believed to be related to this medication, that resulted in hospitalization?: No [facility] SPECIALTY CLINICAL ASSESSMENT - HEMATOLOGY ONCOLOGY V6: Ivent complete: No Assessment to use: Initial testing and baseline labs: Yes Reviewed supportive care medication appropriateness based on emetogenic risk of therapy: Yes Counseling on intended outcome of therapy: Palliative Reviewed intended chemotherapy cycling and dosing regimen: N/A Patient device teaching: N/A Diagnosis: Yes Prior therapy and current medication list (including drug interaction assessment): Yes Comorbidities: Yes Medical history: Yes Ability to properly self-adminster medication: Yes Therapeutic goals based on possible outcomes of therapy: Yes Does the patient have any additional functional limitations, dietary needs, or safety measures?: No Date of influenza vaccination reminder: 05/28/2024 Date of most recent vaccination assessment: 05/28/2024 Treatment Plan Information: Diagnosis: CML Previous treatment(s): bosulif New treatment regimen: Scemblix (asciminib) Starting Dose/Titration: 80mg Sig:Take 2 tablets (80 mg) by mouth once daily on an empty stomach, 1 hour before or 2 hours after eating Administration: - Take on an empty stomach (1 hour before or 2 hours after eating) - Swallow whole, take at the same time(s) every day Warnings: include but are not limited to - Bone marrow suppress (thrombocytopenia, anemia, and neutropenia) - can be G3/4 - Cardio toxicity (ischemic cardiac and ORTHOPEDIC PODIATRIST events, thrombotic and embolic events, HF reported) - GI Toxici (more content not included)... [facility] 04-28-2024 Note HNO ID: [id number] Author: MARIE MALHOTRA Formerly [facility] Service: ? Author Type: Pharmacist Type: Progress Notes Filed: 06/09/2024 16:42 Note Text: [facility] Discontinuation Assessment: Disease group: Oral Oncology/Hematology Medication: SCEMBLIX ORAL Discontinue reason: Change of pharmacy Chart notes indicate patient is filling through [facility] pharmacy, office already sent rx. No further follow-up required from [facility]. Marie Malhotra, PharmD, BCACP, BCOP Clinical Pharmacist, Oncology [facility] P: , F: Pool: P [facility] Pool #: [id number] [facility] 04-28-2024 Note HNO ID: [id number] Author: ?, ?, ? Service: ? Author Type: ? Type: Progress Notes Filed: 04/28/2024 08:03 Note Text: [facility] received prescription(s) for Scemblix [address] Liz's office. Benefits investigation was conducted, indicating that a prior authorization is required by patient's insurance plan with [employer]. Encounter will be updated once prior authorization has been submitted by [facility]. Margaret Zaragoza [facility] 04-28-2024 Note HNO ID: [id number] Author: MARIE MALHOTRA RPh Service: ? Author Type: Pharmacist Type: Progress Notes Filed: 05/28/2024 09:33 Note Text: [facility] received prescription(s) for asciminib (Scemblix) from Agusto's office. Benefits investigation was conducted, indicating that a prior authorization is required. PA was initiated and pending review. Plan Name: [employer] / Rx Benefits Commercial (Prompt PA portal: [email or web address]) Case: Prior Auth (EOC) ID: [id number] Timeline: Urgent Esperanza Seay PharmD, BCPS, BCOP Clinical Coordinator, Specialty Pharmacy [facility] P: , F: Pool: P [facility] Pool #: [id number] Addendum May 28, 2024 5:47 AM : PA approved but unclear for how long. Will await letter and if not received by next week this pharmacist will check chart and call for dates. Esperanza Seay PharmD, BCPS, BCOP Clinical Coordinator, Specialty Pharmacy [facility] P: , F: Pool: P [facility] Pool #: [id number] Marie Malhotra PharmD, BCACP, BCOP Clinical Pharmacist, Oncology [facility] P: , F: Pool: P [facility] Pool #: [id number] [facility] 04-27-2024 Note HNO ID: [id number] Author: FABIANO LIZ DO Service: ? Author Type: Physician Type: Progress Notes Filed: 04/27/2024 09:06 Note Text: Diagnosis: 1) Chronic phase CML. HPI: The patient is a 49-year-old female with past medical history significant for hypothyroidism, sleep apnea (CPAP) and obesity. Was in [place]. On return had found to have elevated triglycerides when had labs done by Dr. Mckeon as part of screening labs for weight loss medications. Had recheck of triglycerides (and a CBC since hadn't had in a year) at [facility] and incidental leukocytosis with WBC count 135.68K. Hgb and platelets normal. Recheck at [facility] 07/21/2022 revealed total white count 131.8 thousand. Hemoglobin 12.3 g/dL. Platelet count 211,000. Absolute neutrophil count 90,000. Absolute lymphocyte count 8000. 15% bands, 2% monocytes, 3% eosinophils, 6% metamyelocytes, 5% myelocytes, 3% promyelocytes and 6% blasts were quantitated on the differential. She does not have any chronic recurring fever or drenching night sweats. Normal appetite. No early satiety. No left upper quadrant pain. No bleeding issues or unexplained bruising. Had partial hysterectomy previously. No longer has menses. No history of cardiac disease, renal disease or pancreatic disease. No chronic respiratory illnesses. Uses omeprazole on occasion as needed. Current therapy: 1) Bosutinib. Began 08/11/2022. Presents for ongoing oncologic management. Interim history: Several day h/o fever, nausea/vomiting and diarrhea. No fever since Saturday. N/V and diarrhea slowing. Has Zofran on hand--helped. Home Covid test negative. Still having a lot of difficulty with reflux. Not using Gaviscon due to the texture. Only using Tums. PMH, medications and allergies personally reviewed by me today. Any changes documented in appropriate section. ROS: Constitutional: See HPI. Neuro: Denies BAÑUELOS, vertigo, dizziness and imbalance. Denies symptoms of neuropathy. HEENT: No recent change in voice, vision or hearing. Resp: Denies cough, wheeze and hemoptysis. Denies shortness of breath at rest. CVS: Denies exertional chest pain, PND, orthopnea and LE edema. GI: See HPI. : Denies dysuria or gross hematuria. No symptoms of bladder outlet obstruction. Endo: Denies hot flashes. Denies polyuria and polydipsia. Denies heat and cold intolerance. Musculoskeletal: Chronic right posterior hip pain. Derm: See HPI. Heme: Denies unusual bleeding and unexplained bruising. Psych: Normal mood. PHYSICAL EXAM: Vitals: Blood pressure 120/77, pulse 69, temperature 36.4 ?C (97.6 ?F), temperature source Temporal, weight 103.2 kg (227 lb 8 oz), SpO2 99%. Well-appearing and in no acute distress. EYES: Sclerae are anicteric bilaterally. LYMPHATIC: There is no palpable cervical, supraclavicular adenopathy. RESPIRATORY: Inspiratory breath sounds are of normal intensity in all thakur. No rales, wheezes or rhonchi. CARDIOVASCULAR: Rhythm is regular. ABDOMEN: The abdomen is nondistended. Cannot appreciate splenomegaly. Extremities: No swelling currently. SKIN: No jaundice. LABS: ASSESSMENT/PLAN: (C92.10) CML (chronic myelocytic leukemia) (HCC) (primary encounter diagnosis) (K21.9) Gastroesophageal reflux disease, unspecified whether esophagitis present (Z86.39) History of iron deficiency (K21.9) Gastroesophageal reflux disease, unspecified whether esophagitis Assessment: -The patient is a 49-year-old female incidentally found to have leukocytosis with immature granulocytes and mild splenomegaly suggestive of CML. She had not had any bleeding or bruising issues. No recent illnesses at the time of presentation. No fever, night sweats or early satiety. -Initial diagnostic PCR for BCR/ABL on peripheral blood demonstrated both p210 and p190 fusion transcripts with p210 being far greater. -MR for p210 at 9 months. p190 undetectable and under 2 months. -Now in DMR. -Tolerating bosutinib overall well other than the prevents her from using PPI and reflux continues to be a significant symptom for her. -Discussed rotating to Scemblix so she can resume PPI. Plan: -Triall of rotating to Scemblix. Rx sent. -CBC/CMP in 3 months. -Continue Tums taken at least 2 hours before or at least 2 hours after taking bosutinib. Portions of this documentation were copied and pasted from my previous office visit note dated 10/30/2023 in order to provide a cohesive continuity of the history. The note has been reviewed and edited and updated as necessary. Fabiano Liz DO [facility] 04-27-2024 History of Presen t illness Narrative Diagnosis: 1) Chronic phase CML. HPI: The patient is a 49-year-old female with past medical history significant for hypothyroidism, sleep apnea (CPAP) and obesity. Was in [place]. On return had found to have elevated triglycerides when had labs done by Dr. Mckeon as part of screening labs for weight loss medications. Had recheck of triglycerides (and a CBC since hadn't had in a year) at [facility] and incidental leukocytosis with WBC count 135.68K. Hgb and platelets normal. Recheck at [facility] 07/21/2022 revealed total white count 131.8 thousand. Hemoglobin 12.3 g/dL. Platelet count 211,000. Absolute neutrophil count 90,000. Absolute lymphocyte count 8000. 15% bands, 2% monocytes, 3% eosinophils, 6% metamyelocytes, 5% myelocytes, 3% promyelocytes and 6% blasts were quantitated on the differential. She does not have any chronic recurring fever or drenching night sweats. Normal appetite. No early satiety. No left upper quadrant pain. No bleeding issues or unexplained bruising. Had partial hysterectomy previously. No longer has menses. No history of cardiac disease, renal disease or pancreatic disease. No chronic respiratory illnesses. Uses omeprazole on occasion as needed. Current therapy: 1) Bosutinib. Began 08/11/2022. Presents for ongoing oncologic management. Interim history: Several day h/o fever, nausea/vomiting and diarrhea. No fever since Saturday. N/V and diarrhea slowing. Has Zofran on hand--helped. Home Covid test negative. Still having a lot of difficulty with reflux. Not using Gaviscon due to the texture. Only using Tums. PMH, medications and allergies personally reviewed by me today. Any changes documented in appropriate section. ROS: Constitutional: See HPI. Neuro: Denies BAÑUELOS, vertigo, dizziness and imbalance. Denies symptoms of neuropathy. HEENT: No recent change in voice, vision or hearing. Resp: Denies cough, wheeze and hemoptysis. Denies shortness of breath at rest. CVS: Denies exertional chest pain, PND, orthopnea and LE edema. GI: See HPI. : Denies dysuria or gross hematuria. No symptoms of bladder outlet obstruction. Endo: Denies hot flashes. Denies polyuria and polydipsia. Denies heat and cold intolerance. Musculoskeletal: Chronic right posterior hip pain. Derm: See HPI. Heme: Denies unusual bleeding and unexplained bruising. Psych: Normal mood. PHYSICAL EXAM: Vitals: Blood pressure 120/77, pulse 69, temperature 36.4 C (97.6 F), temperature source Temporal, weight 103.2 kg (227 lb 8 oz), SpO2 99%. Well-appearing and in no acute distress. EYES: Sclerae are anicteric bilaterally. LYMPHATIC: There is no palpable cervical, supraclavicular adenopathy. RESPIRATORY: Inspiratory breath sounds are of normal intensity in all thakur. No rales, wheezes or rhonchi. CARDIOVASCULAR: Rhythm is regular. ABDOMEN: The abdomen is nondistended. Cannot appreciate splenomegaly. Extremities: No swelling currently. SKIN: No jaundice. LABS: ASSESSMENT/PLAN: (C92.10) CML (chronic myelocytic leukemia) (HCC) (primary encounter diagnosis) (K21.9) Gastroesophageal reflux disease, unspecified whether esophagitis present (Z86.39) History of iron deficiency (K21.9) Gastroesophageal reflux disease, unspecified whether esophagitis Assessment: -The patient is a 49-year-old female incidentally found to have leukocytosis with immature granulocytes and mild splenomegaly suggestive of CML. She had not had any bleeding or bruising issues. No recent illnesses at the time of presentation. No fever, night sweats or early satiety. -Initial diagnostic PCR for BCR/ABL on peripheral blood demonstrated both p210 and p190 fusion transcripts with p210 being far greater. -MR for p210 at 9 months. p190 undetectable and under 2 months. -Now in DMR. -Tolerating bosutinib overall well other than the prevents her from using PPI and reflux continues to be a significant symptom for her. -Discussed rotating to Scemblix so she can resume PPI. Plan: -Triall of rotating to Scemblix. Rx sent. -CBC/CMP in 3 months. -Continue Tums taken at least 2 hours before or at least 2 hours after taking bosutinib. Portions of this documentation were copied and pasted from my previous office visit note dated 10/30/2023 in order to provide a cohesive continuity of the history. The note has been reviewed and edited and updated as necessary. Fabiano Liz DO documented in this encounter [facility] 02-24-2024 Evaluation note Diagnosis Onset Date Resolution Climacteric acute February 24, 2024 9:00am Encounter for routine gynecological examination noneactive February 23 9:00am [facility] Work Phone: [phone] 602-284311-07-2024 NoteHNO ID: [id number] Author: DEVIKA BRUSH APRN.SHOVEL LOG LOADER OPERATOR Service: ? Author Type: Nurse Practitioner Type: Progress Notes Filed: 01/30/2024 13:04 Note Text: Chief Complaint Patient presents with: Established Patient HPI: Libia Olivas is a 49 year old female who presents here today for follow up CML. Per Dr. Liz's previous note: H/o hypothyroidism, sleep apnea (CPAP) and obesity. Was in [place]. On return had found to have elevated triglycerides when had labs done by Dr. Mckeon as part of screening labs for weight loss medications. Had recheck of triglycerides (and a CBC since hadn't had in a year) at [facility] and incidental leukocytosis with WBC count 135.68K. Hgb and platelets normal. Recheck at [facility] 07/21/2022 revealed total white count 131.8 thousand. Hemoglobin 12.3 g/dL. Platelet count 211,000. Absolute neutrophil count 90,000. Absolute lymphocyte count 8000. 15% bands, 2% monocytes, 3% eosinophils, 6% metamyelocytes, 5% myelocytes, 3% promyelocytes and 6% blasts were quantitated on the differential. She does not have any chronic recurring fever or drenching night sweats. Normal appetite. No early satiety. No left upper quadrant pain. No bleeding issues or unexplained bruising. Had partial hysterectomy previously. No longer has menses. No history of cardiac disease, renal disease or pancreatic disease. No chronic respiratory illnesses. Uses omeprazole on occasion as needed. Current therapy: 1) Bosutinib. Began 08/11/2022. Pt. here today with spouse. Appetite:Comes and goes. Energy level:Ok. Denies fevers. Mouth:denies sores Resp:denies cough or sob Cardiac:denies chest pain/palpitations GI:occ. abd pain, occ. nausea, denies vomiting, +reflux, moving bowels regularly :denies dysuria/hematuria Extrem:denies pain Neuro:denies symptoms of neuropathy Skin:denies rashes Heme:denies bleeding The ROS is otherwise negative. Past medical history, appointments, medications, allergies reviewed. No changes. EXAM: BP 126/82 Pulse 99 Temp 36.4 ?C (97.5 ?F) (Temporal) Wt 106.5 kg (234 lb 12.6 oz) SpO2 93% BMI 38.77 kg/m? APPEARANCE Well appearing, alert, in no acute distress, well-hydrated, well nourished. HEART RRR with normal S1 and S2, no murmurs LUNG clear to auscultation LYMPH NODES No cervical lymphadenopathy, No supraclavicular lymphadenopathy, and No axillary lymphadenopathy. ABDOMEN bowel sounds normoactive, soft, non-tender EXTREMITIES No edema NEURO Awake, alert and oriented x 3, Normal gait, and No involuntary motions. SKIN Skin color, texture, turgor normal, no suspicious rashes or lesions LABS: Latest Ref Rng 10/23/2023 01/30/2024 WBC 3.70 - 11.00 k/uL 9.47 9.24 RBC 3.90 - 5.20 m/uL 4.79 4.51 Hemoglobin 11.5 - 15.5 g/dL 12.3 12.3 Hematocrit 36.0 - 46.0 % 38.5 37.7 MCV 80.0 - 100.0 fL 80.4 83.6 MCH 26.0 - 34.0 pg 25.7 (L) 27.3 MCHC 30.5 - 36.0 g/dL 31.9 32.6 RDW-CV 11.5 - 15.0 % 14.2 14.2 Platelet Count 150 - 400 k/uL 243 236 MPV 9.0 - 12.7 fL 10.7 10.3 Neut% % 75.4 73.9 Abs Neut (ANC) 1.45 - 7.50 k/uL 7.14 6.83 Lymph% % 16.8 16.7 Abs Lymph 1.00 - 4.00 k/uL 1.59 1.54 Robeson% % 5.5 5.3 Abs Robeson <0.87 k/uL 0.52 0.49 Eosin% % 1.6 2.9 Abs Eosin <0.46 k/uL 0.15 0.27 Baso% % 0.5 0.8 Abs Baso <0.11 k/uL 0.05 0.07 Immature Gran % % 0.2 0.4 IMMATURE GRANS (ABS) <0.10 k/uL <0.03 0.04 NRBC /100 WBC 0.0 0.0 Absolute nRBC <0.01 k/uL <0.01 <0.01 DTYPE Auto Auto Latest Ref Rng 10/23/2023 01/30/2024 Protein, Total 6.3 - 8.0 g/dL 6.3 6.2 (L) Albumin 3.9 - 4.9 g/dL 4.3 4.1 Calcium 8.5 - 10.2 mg/dL 8.8 9.3 Bilirubin, Total 0.2 - 1.3 mg/dL 0.4 0.4 Alkaline Phosphatase 34 - 123 U/L 79 89 AST 13 - 35 U/L 16 11 (L) ALT 7 - 38 U/L 29 25 Glucose 74 - 99 mg/dL 118 (H) 142 (H) BUN 7 - 21 mg/dL 10 14 Creatinine 0.58 - 0.96 mg/dL 0.70 0.75 Sodium 136 - 144 mmol/L 140 136 Potassium 3.7 - 5.1 mmol/L 3.8 3.8 Chloride 98 - 107 mmol/L 107 105 CO2 22 - 30 mmol/L 23 21 (L) Anion Gap 8 - 15 mmol/L 10 10 eGFR >=60 mL/min/1.73m? 108 99 ASSESSMENT/PLAN: 1. 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 - Tolerating bosulif well except for relfux-unable to take PPI. - Reviewed labs with pt. - Continue bosulif at current dose. - Continue follow up with GI. - Continue current medications. - Add iron studies to labs end of 2024. - Follow up with Dr. Liz as scheduled. - Pt. aware to call office with any questions/concerns. The patient indicates understanding of these issues and agrees with the plan. All documentation from previous visit of 10/30/23-Dr. Liz was copied and pasted, documentation has been reviewed and edited as necessary for today's visit. Dev[facility] Brush APRN.[facility] History of Present illness Narrative* Devika Brush APRN.SHOVEL LOG LOADER OPERATOR - 01/30/2024 8:15 AM EST Chief Complaint Patient presents with: Established Patient HPI: Libia Olivas is a 49 year old female who presents here today for follow up CML. Per Dr. Liz's previous note: H/o hypothyroidism, sleep apnea (CPAP) and obesity. Was in [place]. On return had found to have elevated triglycerides when had labs done by Dr. Mckeon as part of screening labs for weight loss medications. Had recheck of triglycerides (and a CBC since hadn't had in a year) at [facility] and incidental leukocytosis with WBC count 135.68K. Hgb and platelets normal. Recheck at [facility] 07/21/2022 revealed total white count 131.8 thousand. Hemoglobin 12.3 g/dL. Platelet count 211,000. Absolute neutrophil count 90,000. Absolute lymphocyte count 8000. 15% bands, 2% monocytes, 3% eosinophils, 6% metamyelocytes, 5% myelocytes, 3% promyelocytes and 6% blasts were quantitated on the differential. She does not have any chronic recurring fever or drenching night sweats. Normal appetite. No early satiety. No left upper quadrant pain. No bleeding issues or unexplained bruising. Had partial hysterectomy previously. No longer has menses. No history of cardiac disease, renal disease or pancreatic disease. No chronic respiratory illnesses. Uses omeprazole on occasion as needed. Current therapy: 1) Bosutinib. Began 08/11/2022. Pt. here today with spouse. Appetite:Comes and goes. Energy level:Ok. Denies fevers. Mouth:denies sores Resp:denies cough or sob Cardiac:denies chest pain/palpitations GI:occ. abd pain, occ. nausea, denies vomiting, +reflux, moving bowels regularly :denies dysuria/hematuria Extrem:denies pain Neuro:denies symptoms of neuropathy Skin:denies rashes Heme:denies bleeding The ROS is otherwise negative. Past medical history, appointments, medications, allergies reviewed. No changes. EXAM: BP 126/82 Pulse 99 Temp 36.4 C (97.5 F) (Temporal) Wt 106.5 kg (234 lb 12.6 oz) SpO2 93% BMI 38.77 kg/m APPEARANCE Well appearing, alert, in no acute distress, well-hydrated, well nourished. HEART RRR with normal S1 and S2, no murmurs LUNG clear to auscultation LYMPH NODES No cervical lymphadenopathy, No supraclavicular lymphadenopathy, and No axillary lymphadenopathy. ABDOMEN bowel sounds normoactive, soft, non-tender EXTREMITIES No edema NEURO Awake, alert and oriented x 3, Normal gait, and No involuntary motions. SKIN Skin color, texture, turgor normal, no suspicious rashes or lesions LABS: Latest Ref Rng 10/23/2023 01/30/2024 WBC 3.70 - 11.00 k/uL 9.47 9.24 RBC 3.90 - 5.20 m/uL 4.79 4.51 Hemoglobin 11.5 - 15.5 g/dL 12.3 12.3 Hematocrit 36.0 - 46.0 % 38.5 37.7 MCV 80.0 - 100.0 fL 80.4 83.6 MCH 26.0 - 34.0 pg 25.7 (L) 27.3 MCHC 30.5 - 36.0 g/dL 31.9 32.6 RDW-CV 11.5 - 15.0 % 14.2 14.2 Platelet Count 150 - 400 k/uL 243 236 MPV 9.0 - 12.7 fL 10.7 10.3 Neut% % 75.4 73.9 Abs Neut (ANC) 1.45 - 7.50 k/uL 7.14 6.83 Lymph% % 16.8 16.7 Abs Lymph 1.00 - 4.00 k/uL 1.59 1.54 Robeson% % 5.5 5.3 Abs Robeson <0.87 k/uL 0.52 0.49 Eosin% % 1.6 2.9 Abs Eosin <0.46 k/uL 0.15 0.27 Baso% % 0.5 0.8 Abs Baso <0.11 k/uL 0.05 0.07 Immature Gran % % 0.2 0.4 IMMATURE GRANS (ABS) <0.10 k/uL <0.03 0.04 NRBC /100 WBC 0.0 0.0 Absolute nRBC <0.01 k/uL <0.01 <0.01 DTYPE Auto Auto Latest Ref Rng 10/23/2023 01/30/2024 Protein, Total 6.3 - 8.0 g/dL 6.3 6.2 (L) Albumin 3.9 - 4.9 g/dL 4.3 4.1 Calcium 8.5 - 10.2 mg/dL 8.8 9.3 Bilirubin, Total 0.2 - 1.3 mg/dL 0.4 0.4 Alkaline Phosphatase 34 - 123 U/L 79 89 AST 13 - 35 U/L 16 11 (L) ALT 7 - 38 U/L 29 25 Glucose 74 - 99 mg/dL 118 (H) 142 (H) BUN 7 - 21 mg/dL 10 14 Creatinine 0.58 - 0.96 mg/dL 0.70 0.75 Sodium 136 - 144 mmol/L 140 136 Potassium 3.7 - 5.1 mmol/L 3.8 3.8 Chloride 98 - 107 mmol/L 107 105 CO2 22 - 30 mmol/L 23 21 (L) Anion Gap 8 - 15 mmol/L 10 10 eGFR >=60 mL/min/1.73m 108 99 ASSESSMENT/PLAN: 1. 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 - Tolerating bosulif well except for relfux-unable to take PPI. - Reviewed labs with pt. - Continue bosulif at current dose. - Continue follow up with GI. - Continue current medications. - Add iron studies to labs end of 2024. - Follow up with Dr. Liz as scheduled. - Pt. aware to call office with any questions/concerns. The patient indicates understanding of these issues and agrees with the plan. All documentation from previous visit of 10/30/23-Dr. Liz was copied and pasted, documentation has been reviewed and edited as necessary for today's visit. Devika Brush APRN.[place] documented in this encounterOhio[facility]24 Telephone encounter Note * Telephone Encounter - Gia Reinoso LPN - 11/11/2023 7:52 AM EDT Prescription Refill Information The patient has been identified by name and date of : Yes Caregiver verified no other encounters exist for this prescription request: Yes Caregiver confirmed with patient/requestor that no other refills are due, in the near future, with this provider at this time: Yes The last office visit in the department:10/30/2023 Does the patient have a future office visit with this provider/department: Yes Requested Prescriptions Pending Prescriptions Disp Refills bosutinib (BOSULIF) 400 mg tablet [Pharmacy Med Name: BOSULIF 400MG TAB] 5 Sig: TAKE 1 TABLET BY MOUTH ONCE DAILY WITH FOOD Gia Reinoso LPN November 11, 2023 7:53 AM [facility]08-19-2024 Miscellaneous Notes* Telephone Encounter - Gia Reinoso LPN - 11/11/2023 7:52 AM EDT Prescription Refill Information The patient has been identified by name and date of : Yes Caregiver verified no other encounters exist for this prescription request: Yes Caregiver confirmed with patient/requestor that no other refills are due, in the near future, with this provider at this time: Yes The last office visit in the department:10/30/2023 Does the patient have a future office visit with this provider/department: Yes Requested Prescriptions Pending Prescriptions Disp Refills bosutinib (BOSULIF) 400 mg tablet [Pharmacy Med Name: BOSULIF 400MG TAB] 5 Sig: TAKE 1 TABLET BY MOUTH ONCE DAILY WITH FOOD Gia Reinoso LPN November 11, 2023 7:53 AM documented in this encounterOhiohealth [facility]in [facility]08-12-2024 Telephone encounter Note * Telephone Encounter - Alisha Romero LPN - 11/04/2023 3:26 PM EDT Per OV note 10/30/2023- Intolerant to oral iron. Iron study result received from [facility]. Patient is iron deficient. Patient prefers to have her iron infusions at [facility] d/t insurance. Orders and demographics faxed to [facility] Infusion Suite. Patient is aware. Alisha Romero LPN [facility]08-12-2024 Miscellaneous Notes* Telephone Encounter - Alisha Romero LPN - 11/04/2023 3:26 PM EDT Per OV note 10/30/2023- Intolerant to oral iron. Iron study result received from [facility]. Patient is iron deficient. Patient prefers to have her iron infusions at [facility] d/t insurance. Orders and demographics faxed to [facility] Infusion Suite. Patient is aware. Alisha Romero LPN documented in this encounterOhiohealth [facility]in [facility]08-12-2024 [facility] Medical Records Department [address] [place] [id number] History Physical Exam 11/04/23 0751 MR#: [id number] Acct: [id number] Name: LIBIA OLIVAS FRIDA Rep #: [id number] : 1975 48 From: Ugo Kelley DO PCP: Dr. Krystina Calle, Status:[facility] Location: [place] [address] HPI - General General Date of Admission: 11/27/23 Date of Service: 11/04/23 Chief Complaint: Screening colonoscopy HPI Narrative LIBIA OLIVAS, is a 48 F who presents today for screening colonoscopy. She has a past medical history of CML, hypercholesterolemia, gastroesophageal reflux disease who arrives here today for first colonoscopy. She is not have abdominal pain. Denied any cramping. She denied any chest pain or shortness of breath. 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 GERD (gastroesophageal reflux disease) Anemia Home Medications ???Medication ???Instructions ???Recorded ???Last Taken ???Type levothyroxine 125 mcg capsule 125 mcg PO DAILY #90 caps 04/13/19 Unknown Rx (Tirosint) allopurinol 300 mg tablet 300 mg PO DAILY 02/19/23 Unknown History bosutinib 400 mg tablet (Bosulif) 400 mg PO DAILY 02/19/23 Unknown History furosemide 20 mg tablet 20 mg PO Q OTHER DAY PRN edema 02/19/23 Unknown History potassium chloride 10 mEq 10 meq PO BID 02/19/23 Unknown History tablet,extended release (Klor-Con) ondansetron HCl 8 mg tablet 8 mg PO Q8H PRN nausea and vomiting 09/16/23 Unknown History Allergy/AdvReac Type Severity Reaction Status Date / Time Iodinated Contrast Media Allergy Hives Verified 11/04/23 07:08 nalbuphine HCl (From Nubain) AdvReac Vomiting Verified 11/04/23 07:08 Family History Father CAD (coronary artery disease) Diabetes Other Hypertension Myocardial infarction Thyroid disorder Surgical History History of bone marrow biopsy H/O tubal ligation ( 2005) delivery delivered H/O: hysterectomy History of cholecystectomy Social History household members: spouse current occupational status: employed Smoking Status: Never smoker alcohol intake: current alcohol intake frequency: holidays/special occasions only details: social substance use type: does not use caffeine: Yes what type of physical activity do you participate in: walking and weight training seatbelt use: always do you feel safe at home: Yes additional 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: - [facility] ER NURSE YAKOV [facility] ROS Review of Systems ROS Unobtainable: other Constitutional Constitutional: Denies fatigue, fever(s), poor appetite, weight gain or weight loss ENT HEENT: Denies mouth lesions Cardiovascular Cardiovascular: Denies abdominal bloating, abdominal edema or abdominal pain Respiratory/Chest Respiratory/Chest: Denies change in mental status, change in phlegm color, chest congestion or chest tightness Gastrointestinal Gastrointestinal: Denies belching, bloating, change in bowel habits, change in stool character, chewing difficulty, coffee ground emesis, constipation, cramping, diarrhea, dyspepsia, dysphagia, early satiety, excessive flatus, fecal incontinence, heartburn, hematemesis, hematochezia, hemorrhoids, loose stools, melena, nausea, odynophagia, rectal bleeding, tenesmus, vomiting or weight changes Genitourinary Genitourinary: Denies abdominal discomfort, burning urination or itching Musculoskeletal Musculoskeletal: Reports as per HPI; Denies muscle weakness or myalgias Integumentary Integumentary: Denies jaundice Neurologic Neurologic: Denies lack of coordination or weakness Psychiatric Psychiatric: Denies confusion, depression, memory loss, mood swings, paranoia or suicidal ideation Endocrine Endocrinology: Denies systems reviewed and no addt'l complaints, except as documented Hematologic/Lymphatic Hematologic/Lymphatic: Denies anemia, easy bleeding, easy bruising or lymphadenopathy Allergic/Immunologic Allergic/Immunologic: Denies systems reviewed and no addt'l complaints, except as documented Vital Signs Vital Signs Vital Signs: 11/04/23 07:10 11/04/23 07:10 Temperature 98 F Temperature Source Temporal Pulse Rate 68 Respiratory Rate 16 Respira (more content not included)...[facility]08-07-2024 Note HNO ID: [id number] Author: FABIANO LIZ, DO Service: ? Author Type: Physician Type: Progress Notes Filed: 10/30/2023 09:05 Note Text: Diagnosis: 1) Chronic phase CML. HPI: The patient is a 48-year-old female with past medical history significant for hypothyroidism, sleep apnea (CPAP) and obesity. Was in [place]. On return had found to have elevated triglycerides when had labs done by Dr. Mckeon as part of screening labs for weight loss medications. Had recheck of triglycerides (and a CBC since hadn't had in a year) at [facility] and incidental leukocytosis with WBC count 135.68K. Hgb and platelets normal. Recheck at [facility] 07/21/2022 revealed total white count 131.8 thousand. Hemoglobin 12.3 g/dL. Platelet count 211,000. Absolute neutrophil count 90,000. Absolute lymphocyte count 8000. 15% bands, 2% monocytes, 3% eosinophils, 6% metamyelocytes, 5% myelocytes, 3% promyelocytes and 6% blasts were quantitated on the differential. She does not have any chronic recurring fever or drenching night sweats. Normal appetite. No early satiety. No left upper quadrant pain. No bleeding issues or unexplained bruising. Had partial hysterectomy previously. No longer has menses. No history of cardiac disease, renal disease or pancreatic disease. No chronic respiratory illnesses. Uses omeprazole on occasion as needed. Current therapy: 1) Bosutinib. Began 08/11/2022. Presents for ongoing oncologic management. Interim history: AKERS continues. Currently on cipro for UTI. Symptoms getting better. PMH, medications and allergies personally reviewed by me today. Any changes documented in appropriate section. ROS: Constitutional: See HPI. Neuro: Denies BAÑUELOS, vertigo, dizziness and imbalance. Denies symptoms of neuropathy. HEENT: No recent change in voice, vision or hearing. Resp: Denies cough, wheeze and hemoptysis. Denies shortness of breath at rest. CVS: Denies exertional chest pain, PND, orthopnea and LE edema. GI: See HPI. : Denies dysuria or gross hematuria. No symptoms of bladder outlet obstruction. Endo: Denies hot flashes. Denies polyuria and polydipsia. Denies heat and cold intolerance. Musculoskeletal: Chronic right posterior hip pain. Derm: See HPI. Heme: Denies unusual bleeding and unexplained bruising. Psych: Normal mood. PHYSICAL EXAM: Vitals: Blood pressure 135/78, pulse 65, temperature 36.9 ?C (98.5 ?F), temperature source Temporal, weight 108.2 kg (238 lb 8 oz), SpO2 98%. Well-appearing and in no acute distress. EYES: Sclerae are anicteric bilaterally. LYMPHATIC: There is no palpable cervical, supraclavicular, axillary adenopathy. RESPIRATORY: Inspiratory breath sounds are of normal intensity in all thakur. No rales, wheezes or rhonchi. CARDIOVASCULAR: Rhythm is regular. ABDOMEN: The abdomen is nondistended. Cannot appreciate splenomegaly. Extremities: No swelling currently. SKIN: No jaundice. LABS: Latest Ref Rng 10/23/2023 WBC 3.70 - 11.00 k/uL 9.47 RBC 3.90 - 5.20 m/uL 4.79 Hemoglobin 11.5 - 15.5 g/dL 12.3 Hematocrit 36.0 - 46.0 % 38.5 MCV 80.0 - 100.0 fL 80.4 MCH 26.0 - 34.0 pg 25.7 (L) MCHC 30.5 - 36.0 g/dL 31.9 RDW-CV 11.5 - 15.0 % 14.2 Platelet Count 150 - 400 k/uL 243 MPV 9.0 - 12.7 fL 10.7 Neut% % 75.4 Abs Neut (ANC) 1.45 - 7.50 k/uL 7.14 Lymph% % 16.8 Abs Lymph 1.00 - 4.00 k/uL 1.59 Robeson% % 5.5 Abs Robeson <0.87 k/uL 0.52 Eosin% % 1.6 Abs Eosin <0.46 k/uL 0.15 Baso% % 0.5 Abs Baso <0.11 k/uL 0.05 Immature Gran % % 0.2 IMMATURE GRANS (ABS) <0.10 k/uL <0.03 NRBC /100 WBC 0.0 Absolute nRBC <0.01 k/uL <0.01 DTYPE Auto Protein, Total 6.3 - 8.0 g/dL 6.3 Albumin 3.9 - 4.9 g/dL 4.3 Calcium 8.5 - 10.2 mg/dL 8.8 Bilirubin, Total 0.2 - 1.3 mg/dL 0.4 Alkaline Phosphatase 34 - 123 U/L 79 AST 13 - 35 U/L 16 ALT 7 - 38 U/L 29 Glucose 74 - 99 mg/dL 118 (H) BUN 7 - 21 mg/dL 10 Creatinine 0.58 - 0.96 mg/dL 0.70 Sodium 136 - 144 mmol/L 140 Potassium 3.7 - 5.1 mmol/L 3.8 Chloride 98 - 107 mmol/L 107 CO2 22 - 30 mmol/L 23 Anion Gap 8 - 15 mmol/L 10 eGFR >=60 mL/min/1.73m? 108 ASSESSMENT/PLAN: (C92.10) CML (chronic myelocytic leukemia) (HCC) (primary encounter diagnosis) (R06.00, R06.89) Dyspnea and respiratory abnormalities (K21.9) Gastroesophageal reflux disease, unspecified whether esophagitis present Assessment: -The patient is a 48-year-old female incidentally found to have leukocytosis with immature granulocytes and mild splenomegaly suggestive of CML. She had not had any bleeding or bruising issues. No recent illnesses at the time of presentation. No fever, night sweats or early satiety. -Initial diagnostic PCR for BCR/ABL on peripheral blood demonstrated both p210 and p190 fusion transcripts with p210 being far greater. -MR for p210 at 9 months. p190 undetectable and under 2 months. -Tolerating bosutinib overall well. Reviewed CBC and chemistry panel. No (more content not included)...[facility]08-07-2024 History of Present illness Narrative* Fabiano Liz, - 10/30/2023 8:39 AM EDT Diagnosis: 1) Chronic phase CML. HPI: The patient is a 48-year-old female with past medical history significant for hypothyroidism, sleep apnea (CPAP) and obesity. Was in [place]. On return had found to have elevated triglycerides when had labs done by Dr. Mckeon as part of screening labs for weight loss medications. Had recheck of triglycerides (and a CBC since hadn't had in a year) at [facility] and incidental leukocytosis with WBC count 135.68K. Hgb and platelets normal. Recheck at [facility] 07/21/2022 revealed total white count 131.8 thousand. Hemoglobin 12.3 g/dL. Platelet count 211,000. Absolute neutrophil count 90,000. Absolute lymphocyte count 8000. 15% bands, 2% monocytes, 3% eosinophils, 6% metamyelocytes, 5% myelocytes, 3% promyelocytes and 6% blasts were quantitated on the differential. She does not have any chronic recurring fever or drenching night sweats. Normal appetite. No early satiety. No left upper quadrant pain. No bleeding issues or unexplained bruising. Had partial hysterectomy previously. No longer has menses. No history of cardiac disease, renal disease or pancreatic disease. No chronic respiratory illnesses. Uses omeprazole on occasion as needed. Current therapy: 1) Bosutinib. Began 08/11/2022. Presents for ongoing oncologic management. Interim history: AKERS continues. Currently on cipro for UTI. Symptoms getting better. PMH, medications and allergies personally reviewed by me today. Any changes documented in appropriate section. ROS: Constitutional: See HPI. Neuro: Denies BAÑUELOS, vertigo, dizziness and imbalance. Denies symptoms of neuropathy. HEENT: No recent change in voice, vision or hearing. Resp: Denies cough, wheeze and hemoptysis. Denies shortness of breath at rest. CVS: Denies exertional chest pain, PND, orthopnea and LE edema. GI: See HPI. : Denies dysuria or gross hematuria. No symptoms of bladder outlet obstruction. Endo: Denies hot flashes. Denies polyuria and polydipsia. Denies heat and cold intolerance. Musculoskeletal: Chronic right posterior hip pain. Derm: See HPI. Heme: Denies unusual bleeding and unexplained bruising. Psych: Normal mood. PHYSICAL EXAM: Vitals: Blood pressure 135/78, pulse 65, temperature 36.9 C (98.5 F), temperature source Temporal, weight 108.2 kg (238 lb 8 oz), SpO2 98%. Well-appearing and in no acute distress. EYES: Sclerae are anicteric bilaterally. LYMPHATIC: There is no palpable cervical, supraclavicular, axillary adenopathy. RESPIRATORY: Inspiratory breath sounds are of normal intensity in all thakur. No rales, wheezes or rhonchi. CARDIOVASCULAR: Rhythm is regular. ABDOMEN: The abdomen is nondistended. Cannot appreciate splenomegaly. Extremities: No swelling currently. SKIN: No jaundice. LABS: Latest Ref [facility] 10/23/2023 WBC 3.70 - 11.00 k/uL 9.47 RBC 3.90 - 5.20 m/uL 4.79 Hemoglobin 11.5 - 15.5 g/dL 12.3 Hematocrit 36.0 - 46.0 % 38.5 MCV 80.0 - 100.0 fL 80.4 MCH 26.0 - 34.0 pg 25.7 (L) MCHC 30.5 - 36.0 g/dL 31.9 RDW-CV 11.5 - 15.0 % 14.2 Platelet Count 150 - 400 k/uL 243 MPV 9.0 - 12.7 fL 10.7 Neut% % 75.4 Abs Neut (ANC) 1.45 - 7.50 k/uL 7.14 Lymph% % 16.8 Abs Lymph 1.00 - 4.00 k/uL 1.59 Robeson% % 5.5 Abs Robeson <0.87 k/uL 0.52 Eosin% % 1.6 Abs Eosin <0.46 k/uL 0.15 Baso% % 0.5 Abs Baso <0.11 k/uL 0.05 Immature Gran % % 0.2 IMMATURE GRANS (ABS) <0.10 k/uL <0.03 NRBC /100 WBC 0.0 Absolute nRBC <0.01 k/uL <0.01 DTYPE Auto Protein, Total 6.3 - 8.0 g/dL 6.3 Albumin 3.9 - 4.9 g/dL 4.3 Calcium 8.5 - 10.2 mg/dL 8.8 Bilirubin, Total 0.2 - 1.3 mg/dL 0.4 Alkaline Phosphatase 34 - 123 U/L 79 AST 13 - 35 U/L 16 ALT 7 - 38 U/L 29 Glucose 74 - 99 mg/dL 118 (H) BUN 7 - 21 mg/dL 10 Creatinine 0.58 - 0.96 mg/dL 0.70 Sodium 136 - 144 mmol/L 140 Potassium 3.7 - 5.1 mmol/L 3.8 Chloride 98 - 107 mmol/L 107 CO2 22 - 30 mmol/L 23 Anion Gap 8 - 15 mmol/L 10 eGFR >=60 mL/min/1.73m 108 ASSESSMENT/PLAN: (C92.10) CML (chronic myelocytic leukemia) (HCC) (primary encounter diagnosis) (R06.00, R06.89) Dyspnea and respiratory abnormalities (K21.9) Gastroesophageal reflux disease, unspecified whether esophagitis present Assessment: -The patient is a 48-year-old female incidentally found to have leukocytosis with immature granulocytes and mild splenomegaly suggestive of CML. She had not had any bleeding or bruising issues. No recent illnesses at the time of presentation. No fever, night sweats or early satiety. -Initial diagnostic PCR for BCR/ABL on peripheral blood demonstrated both p210 and p190 fusion transcripts with p210 being far greater. -MR for p210 at 9 months. p190 undetectable and under 2 months. -Tolerating bosutinib overall well. Reviewed CBC and chemistry panel. No evidence of hepatotoxicity. CBC low MCV and MCH. -Acid reflux. Cannot use PPI while on bosutinib. Affecting her teeth. -Low MCV and MCH. Still with AKERS. Likely iron deficiency. Intolerant to oral iron. Partial hysterectomy 2015 for fibroid. Heavy menses prior to that. -CXR 04/2023 and Echo 05/2023 normal. -Not requiring Lasix. Plan: -Check iron. Will need parenteral iron if low. -Scheduled for screening colonoscopy next week. -Labs in 3 months. PCR in 6 months. -Can use Gaviscon or Tums if taken at least 2 hours before or at least 2 hours after taking bosutinib. Portions of this documentation were copied and pasted from previous office visit notes in order to provide a cohesive continuity of the history. The note has been reviewed and edited and updated as necessary. I spent a total of 20 minutes on the date of the service which included preparing to see the patient, [id number] patient care, completing clinical documentation, obtaining and/or reviewing separately obtained history, performing a medically appropriate examination, counseling and educating the pat ient/family/caregiver, ordering medications, tests, or procedures, communicating with other HCPs (not separately reported), and communicating results to the patient/family/caregiver. Fabiano Liz DO documented in this encounterOhio[facility]07-[facility]-2024 Telephone encounter Note * Telephone Encounter - Devika Brush APRN.CNP - 10/03/2023 11:30 AM EDT The following approved medication requests have been transmitted electronically. Requested Prescriptions Signed Prescriptions Disp Refills allopurinol (ZYLOPRIM) 300 mg tablet 30 tablet 5 Sig: Take 1 tablet by mouth once daily. potassium chloride (K-TAB) 10 mEq tablet 60 tablet 5 Sig: Take 1 tablet by mouth once daily. Daily, If using Lasix BID Devika Brush APRN.CNP [facility]07-11-2024 Miscellaneous Notes* Telephone Encounter - Devika Brush APRN.CNP - 10/03/2023 11:30 AM EDT The following approved medication requests have been transmitted electronically. Requested Prescriptions Signed Prescriptions Disp Refills allopurinol (ZYLOPRIM) 300 mg tablet 30 tablet 5 Sig: Take 1 tablet by mouth once daily. potassium chloride (K-TAB) 10 mEq tablet 60 tablet 5 Sig: Take 1 tablet by mouth once daily. Daily, If using Lasix BID Devika Brush APRN.SHOVEL LOG LOADER OPERATOR * Telephone Encounter - Alisha Romero LPN - 10/03/2023 10:06 AM EDT Please send Rx. Alisha Romero LPN * Telephone Encounter - Sona Carlos - 10/03/2023 9:50 AM EDT Patient calling on status of refills to be sent to [facility]. * Telephone Encounter - Alisha Romero LPN - 09/30/2023 10:53 AM EDT It doesn't look like we prescribe the levothyroxine. Alisha Romero LPN documented in this encounterOhiohealth [facility]07-11-2024 Telephone encounter Note * Telephone Encounter - Alisha Romero LPN - 10/03/2023 10:06 AM EDT Please send Rx. Alisha Romero LPN [facility] Telephone encounter Note* Telephone Encounter - Sona Carlos - 10/03/2023 9:50 AM EDT Patient calling on status of refills to be sent to [facility]. [facility]07-08-2024 Telephone encounter Note* Telephone Encounter - Alisha Romero LPN - 09/30/2023 10:53 AM EDT It doesn't look like we prescribe the levothyroxine. Alisha Romero LPN [facility]05-07-20[facility] Telephone encounter Note* Telephone Encounter - Devika Brush APRN.CNP - 07/30/2023 12:58 PM EDT Please schedule follow up OV with Dr. Liz in 3 months with same labs as on 07/16. Thank you. Devika Brush APRN.SHOVEL LOG LOADER OPERATOR [facility]05-07-2024 Miscellaneous Notes* Telephone Encounter - Devika Brush APRN.[place] - 07/30/2023 12:58 PM EDT Please schedule follow up OV with Dr. Liz in 3 months with same labs as on 07/16. Thank you. Devika Brush APRN.SHOVEL LOG LOADER OPERATOR documented in this encounterOhiohealth [facility]in [facility]05-07-2024 Telephone encounter Note * Telephone Encounter - Ligia Mtz RN - 07/30/2023 12:28 PM EDT See MC message. Ligia Mtz RN [facility]05-07-2024 Miscellaneous Notes* Telephone Encounter - Ligia Mtz RN - 07/30/2023 12:28 PM EDT See MC message. Ligia Mtz RN * Telephone Encounter - Devika Brush APRN.CNP - 07/29/2023 2:34 PM EDT Left VM for pt. re:her labs last week and discussing plan with Dr. Liz. Advised pt. to call/my chart back with her decision on keeping current treatment or pricing Sprycel. Current therapy is very expensive out of pocket for pt. Devika Brush APRN.CNP documented in this encounterOhiohealth [facility]05-06-2024 Telephone encounter Note * Telephone Encounter - Devika Brush APRN.CNP - 07/29/2023 2:59 PM EDT Pt. prefers [facility] for future refills of bosutinib. Devika Brush APRN.CNP [facility]05-06-2024 Miscellaneous Notes* Telephone Encounter - Devika Brush APRN.CNP - 07/29/2023 2:59 PM EDT Pt. prefers [facility] for future refills of bosutinib. Devika Brush APRN.CNP documented in this encounterOhiohealth [facility]in [facility]05-06-2024 Telephone encounter Note * Telephone Encounter - Devika Brush APRN.CNP - 07/29/2023 2:34 PM EDT Left VM for pt. re:her labs last week and discussing plan with Dr. Liz. Advised pt. to call/my chart back with her decision on keeping current treatment or pricing Sprycel. Current therapy is very expensive out of pocket for pt. Devika Brush APRN.SHOVEL LOG LOADER OPERATOR [facility] History of Present illness Narrative* Beatris Saba RT(R) - 07/25/2023 9:10 AM EDT Radiology Service Progress Note PATIENT NAME: Libia Olivas DATE OF SERVICE: July 25, 2023 TIME: 9:03 AM PATIENT IDENTITY VERIFICATION COMPLETED USING TWO (2) IDENTIFIERS: Name and Date of confirmedby patient verbally. FALL SCREENING: Has the patient had 2 falls in the last year or 1 fall with injury or currently using an Ambulatory Assistive Device (Walker, Cane, Wheelchair, Crutches, etc.)? No PATIENT GENDER DATA: Female. status: : No status: NO. PATIENT RELEVANT IMPLANT DATA REVIEWED: Not Applicable PATIENT PRESENTS WITH AN IMPLANTABLE OR ATTACHED COMMERCIAL APPRAISER: No RADIOLOGY DEPARTMENT: General X-ray: Exam(s) Completed: Lower Extremity X- Ray(s): Femur, Left PERIPHERAL IV DATA: Not applicable SIGNED BY: RT Velma(R) July 25, 2023 9:03 AM documented in this encounterOhiohealth [facility]in [facility]05-02-2024 History of Present illness Narrative* Devika Brush APRN.SHOVEL LOG LOADER OPERATOR - 07/25/2023 8:28 AM EDT Chief Complaint Patient presents with: Established Patient HPI: Libia Olivas is a 48 year old female who presents here today for follow up CML. Per Dr. Liz's previous note: H/o hypothyroidism, sleep apnea (CPAP) and obesity. Was in [place]. On return had found to have elevated triglycerides when had labs done by Dr. Mckeon as part of screening labs for weight loss medications. Had recheck of triglycerides (and a CBC since hadn't had in a year) at [facility] and incidental leukocytosis with WBC count 135.68K. Hgb and platelets normal. Recheck at [facility] 07/21/2022 revealed total white count 131.8 thousand. Hemoglobin 12.3 g/dL. Platelet count 211,000. Absolute neutrophil count 90,000. Absolute lymphocyte count 8000. 15% bands, 2% monocytes, 3% eosinophils, 6% metamyelocytes, 5% myelocytes, 3% promyelocytes and 6% blasts were quantitated on the differential. She does not have any chronic recurring fever or drenching night sweats. Normal appetite. No early satiety. No left upper quadrant pain. No bleeding issues or unexplained bruising. Had partial hysterectomy previously. No longer has menses. No history of cardiac disease, renal disease or pancreatic disease. No chronic respiratory illnesses. Uses omeprazole on occasion as needed. Current therapy: 1) Bosutinib. Began 08/11/2022. Appetite:Fine. Energy level:I'm working almost 80 hours/week. Denies fevers or recent illness. Noro virus in 2023 Resp:denies cough or sob Cardiac:denies chest pain/palpitations h/o PVC's GI:denies abd pain, n/v, occ. diarrhea-takes imodium prn :denies dysuria/hematuria Extrem:L femur pain-denies injury, denies pain elsewhere Neuro:denies symptoms of neuropathy Skin:denies rashes/lesions Heme:denies bleeding The ROS is otherwise negative. Past medical history, appointments, medications, allergies reviewed. No changes. EXAM: BP 152/70 Pulse 70 Temp 37.1 C (98.7 F) (Temporal) Wt 106.7 kg (235 lb 4.8 oz) SpO2 99% BMI 38.86 kg/m APPEARANCE Well appearing, alert, in no acute distress, well-hydrated, well nourished. HEART RRR with normal S1 and S2, no murmurs LUNG clear to auscultation LYMPH NODES No cervical lymphadenopathy, No supraclavicular lymphadenopathy, and No axillary lymphadenopathy. ABDOMEN bowel sounds normoactive, soft, non-tender EXTREMITIES No edema NEURO Awake, alert and oriented x 3, Normal gait, and No involuntary motions. SKIN Skin color, texture, turgor normal, no suspicious rashes or lesions LABS: Latest Ref Rng 03/28/2023 04/26/2023 07/17/2023 WBC 3.70 - 11.00 k/uL 8.58 6.57 6.91 RBC 3.90 - 5.20 m/uL 4.70 4.61 4.67 Hemoglobin 11.5 - 15.5 g/dL 12.4 12.3 12.2 Hematocrit 36.0 - 46.0 % 38.1 38.0 37.9 MCV 80.0 - 100.0 fL 81.1 82.4 81.2 MCH 26.0 - 34.0 pg 26.4 26.7 26.1 MCHC 30.5 - 36.0 g/dL 32.5 32.4 32.2 RDW-CV 11.5 - 15.0 % 14.5 13.9 14.6 Platelet Count 150 - 400 k/uL 264 244 238 MPV 9.0 - 12.7 fL 10.4 10.3 10.4 Neut% % 68.1 68.1 64.0 Abs Neut (ANC) 1.45 - 7.50 k/uL 5.84 4.48 4.42 Lymph% % 21.7 23.3 24.0 Abs Lymph 1.00 - 4.00 k/uL 1.86 1.53 1.66 Robeson% % 6.9 5.5 7.2 Abs Robeson <0.87 k/uL 0.59 0.36 0.50 Eosin% % 2.3 2.1 3.6 Abs Eosin <0.46 k/uL 0.20 0.14 0.25 Baso% % 0.8 0.8 0.9 Abs Baso <0.11 k/uL 0.07 0.05 0.06 Immature Gran % % 0.2 0.2 0.3 IMMATURE GRANS (ABS) <0.10 k/uL <0.03 <0.03 <0.03 NRBC /100 WBC 0.0 0.0 0.0 Absolute nRBC <0.01 k/uL <0.01 <0.01 <0.01 DTYPE Auto Auto Auto Latest Ref Rng 03/28/2023 04/26/2023 07/17/2023 Protein, Total 6.3 - 8.0 g/dL 6.6 6.6 6.9 Albumin 3.9 - 4.9 g/dL 4.4 4.4 4.4 Calcium 8.5 - 10.2 mg/dL 8.9 8.5 9.8 Bilirubin, Total 0.2 - 1.3 mg/dL 0.3 0.3 0.5 Alkaline Phosphatase 34 - 123 U/L 85 84 86 AST 13 - 35 U/L 17 15 16 ALT 7 - 38 U/L 38 27 30 Glucose 74 - 99 mg/dL 118 (H) 107 (H) 96 BUN 7 - 21 mg/dL 10 11 7 Creatinine 0.58 - 0.96 mg/dL 0.77 0.79 0.80 Sodium 136 - 144 mmol/L 139 142 140 Potassium 3.7 - 5.1 mmol/L 3.5 (L) 3.8 3.5 (L) Chloride 97 - 105 mmol/L 106 (H) 109 (H) 105 CO2 22 - 30 mmol/L 26 24 28 Anion Gap 9 - 18 mmol/L 7 (L) 9 7 (L) eGFR >=60 mL/min/1.73m 96 94 92 ASSESSMENT/PLAN: 1. 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 Incidentally found to have leukocytosis with immature granulocytes and mild splenomegaly suggestiveof CML. She had not had any bleeding or bruising issues. No recent illnesses at the time of presentation. No fever, night sweats or early satiety. -Initial diagnostic PCR for BCR/ABL on peripheral blood demonstrated both p210 and p190 fusion transcripts with p210 being far greater. - L femur pain. - Overall tolerating bosutinib well. - Reviewed labs with pt. - Continue current medications. - Continue bosutinib. - Xray femur today. - Follow up pending review of labs with Dr. Liz and xray results. - Pt. aware to call office with any questions/concerns. The patient indicates understanding of these issues and agrees with the plan. All documentation from previous visit of 04/26/23-Dr. Liz was copied and pasted, documentation has been reviewed and edited as necessary for today's visit. Devika Brush APRN.[place] documented in this encounterOhiohealth [facility]in [facility]04-22-2024 Telephone encounter Note * Telephone Encounter - Gia Reinoso LPN - 07/15/2023 11:00 AM EDT Patient has been identified by name and date of : Yes Requested Prescriptions Pending Prescriptions Disp Refills allopurinol (ZYLOPRIM) 300 mg tablet [Pharmacy Med Name: allopurinol 300 mg tablet] 30 tablet 5 Sig: take 1 tablet by mouth once daily. RX INSTRUCTIONS: Patient aware RX will be sent to pharmacy. No need to notify patient. Gia Reinoso LPN [facility]04-22-2024 Miscellaneous Notes* Telephone Encounter - Gia Reinoso LPN - 07/15/2023 11:00 AM EDT Patient has been identified by name and date of : Yes Requested Prescriptions Pending Prescriptions Disp Refills allopurinol (ZYLOPRIM) 300 mg tablet [Pharmacy Med Name: allopurinol 300 mg tablet] 30 tablet 5 Sig: take 1 tablet by mouth once daily. RX INSTRUCTIONS: Patient aware RX will be sent to pharmacy. No need to notify patient. Gia Reinoso LPN documented in this encounterOhiohealth [facility]in [facility]03-20-2024 Miscellaneous Notes* Telephone Encounter - Ligia Mtz RN - 06/12/2023 11:36 AM EDT Spoke to patient. Patient stated she was feeling much better this morning but went to work and started to feel worse so she is heading home to rest. Encouraged pushing fluids, rest, mucinex, and OTC medications for symptom management. Patient instructed to see PCP or express care if she feels symptoms are not improving. Patient stated understanding. Ligia Mtz RN documented in this encounterOhiohealth Hardin [facility]03-19-2024 History of Present illness Narrative* Bee Patterson PA-C - 06/11/2023 2:18 PM EDT This note was created using [employer]. Shiva Olvias is a 48 year old female. HPI Patient presents with cough, congestion, fever over the past 2 and half days. Fevers seem to have resolved today, she did take Mucinex max a couple of hours ago. 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 She states she has been exposed to RSV twice this week on peoplewho were sick and have her shorts and mo her sheets and denies normal bleeding Tylenol admitted. She does have a history of CML and is currently under active treatment for this. She has a cough, sometimes productive. She denies chest pain. Sometimes in a coughing fit she will feel short of breath. She did do a COVID test this morning which was negative. No vomiting or diarrhea. She has had bodya ches. She has not had influenza this season. Review of Systems Constitutional: Positive for chills, fatigue and fever. HENT: Positive for congestion, rhinorrhea and sore throat. Negative for ear pain. Respiratory: Positive for cough and shortness of breath. Negative for wheezing. Cardiovascular: Negative. Gastrointestinal: Negative. Genitourinary: Negative. Musculoskeletal: Positive for myalgias. Neurological: Positive for headaches. All other systems reviewed and are negative. PAST MEDICAL HISTORY Diagnosis Date Hypothyroid Obesity Sleep apnea Current Outpatient Medications Medication Sig Dispense Refill bosutinib (BOSULIF) 400 mg tablet Take 1 tablet once daily with food. 30 tablet 5 allopurinol (ZYLOPRIM) 300 mg tablet Take 1 tablet by mouth once daily. 30 tablet 5 acetaminophen (TYLENOL) 325 mg tablet Take 325 mg by mouth every 6 hours as needed. Ibuprofen 200 mg cap Take by mouth every 6 hours as needed. furosemide (LASIX) 20 mg tablet Take 1 tablet by mouth once daily. (Patient taking differently: Take 20 mg by mouth as needed.) 30 tablet 2 potassium chloride (K-TAB) 10 mEq tablet Take 1 tablet by mouth twice daily. (Patient taking differently: Take 10 mEq by mouth once daily. Daily, If using Lasix BID) 60 tablet 5 ondansetron (ZOFRAN) 8 mg tablet Take 1 tablet by mouth every 8 hours as needed (For chemotherapy induced nausea and vomiting). 30 tablet 2 levothyroxine (SYNTHROID) 125 mcg tablet Take 125 mcg by mouth once daily. Current Facility-Administered Medications Medication Dose Route Frequency Provider Last Rate Last Admin perflutren lipid microspheres 1.3 mL in NaCl (PF) 0.9% 10 mL injection (DEFINITY) INTRAVENOUS DIRECTED PRN Fabiano Liz DO sodium chloride 0.9 % (flush) 10 mL (BD POSIFLUSH) 10 mL INTRAVENOUS DIRECTED PRN Fabiano Liz DO PAST SURGICAL HISTORY Procedure Laterality Date SECTION HX 08/28/1995 SECTION HX 06/29/2003 D&C (MISSED AB 2ND TRIMESTER) 2002 ESOPHAGOGASTRODUODENOSCOPY TRANSORAL DIAGNOSTIC 08/20/2017 EGD - gastritis, mild reflux esophagitis HYSTERECTOMY HX 2014 LAPS SURG CHOLECYSTECTOMY W/CHOLANGIOGRAPHY 09/06/2009 Normal IOC LASIK Bilateral 2006 FAMILY HISTORY Problem Relation Age of Onset Hypertension Mother Heart Mother other (Thoracic outlet syndrome) Mother Heart Father Cancer Father thyroid Lipids Father Hypertension Father Stroke Paternal Grandfather Dementia Paternal Grandfather other (Neuroblastoma) Granddaughter other (other) Granddaughter Social History Tobacco Use Smoking status: Never Smokeless tobacco: Never Vaping Use Vaping Use: Never used Substance Use Topics Alcohol use: Not Currently Comment: Not often Drug use: No Objective BP 134/72 Pulse 76 Temp 36.7 C (98 F) Resp 16 Wt 106.7 kg (235 lb 3.7 oz) SpO2 98% BMI 38.85 kg/m Physical Exam Vitals reviewed. Constitutional: Appearance: Normal appearance. HENT: Head: Normocephalic and atraumatic. Right Ear: Tympanic membrane, ear canal and external ear normal. Left Ear: Tympanic membrane, ear canal and external ear normal. Nose: Congestion present. Mouth/Throat: Mouth: Mucous membranes are moist. Pharynx: Oropharynx is clear. Cardiovascular: Rate and Rhythm: Normal rate and regular rhythm. Heart sounds: Normal heart sounds. Pulmonary: Effort: Pulmonary effort is normal. No respiratory distress. Breath sounds: No wheezing or rhonchi. Musculoskeletal: Cervical back: Neck supple. Lymphadenopathy: Cervical: No cervical adenopathy. Skin: General: Skin is warm and dry. Findings: No rash. Neurological: Mental Status: She is alert. Assessment and Plan ASSESSMENT/PLAN: 1. URI, acute - ICD9: 465.9, ICD10: J06.9 - Discussed viral etiology and rationale for treatment. - Symptomatic treatment with prn analgesia - Supportive care with fluids and rest - The patient may also use OTC cough and cold meds as needed. -COVID flu RSV test pending. She is out of the window for Tamiflu at this point. Lungs are clear, Idid discuss possibly doing a chest x-ray due to the shortness of breath and productive cough however symptoms have only been for 2-1/2 days. Patient declined. Discussed if worsening be seen again or fevers persist past 5 days. Patient agreeable with plan. Patient agreeable with plan. - COVID & INFLUENZA A/B & RSV NAAT, ROUTINE Bee R Athy, PA-C documented in this encounterOhiohealth Hardin [facility]03-19-2024 Miscellaneous Notes* Telephone Encounter - Ligia Mtz RN - 06/11/2023 8:54 AM EDT Care Coordination Triage Note [facility] Situation: Patient reports Cough/Respiratory Concerns/SOB, Fever, and Flu/Covid Background: CML- on bosutinib Assessment: When did your symptoms first start? Saturday Do you have a fever, cough, diarrhea, body aches, congestion, runny nose, sore throat or feel shortof breath? Intermittent fevers/chills since Saturday. Currently afebrile, last dose of motrin was last night before bed. Saturday she was SOB, has SOB with exertion still. Pulse oximeter is 97%. Positivefor congestion and body aches. Cough-green mucous so thick I'm having a hard time getting it out.Fluid intake- not as much as I need to. Appetite decreased. Taking Mucinex. Advised increasing her fluids, taking mucinex around the clock, express/urgent care evaluation to rule out influenza/RSV/covid. Patient instructed to send this nurse a message with an update after she is evaluated today. Patient stated understanding. Have you been around anyone diagnosed with strep or the flu/influenza? 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 Have you been tested for covid? Yes, negative today. Recommendations: Per RNCC, patient directed to: express/urgent care. Send [facility] message with an update. Ligia Mtz RN June 11, 2023 9:01 AM documented in this encounterOhiohealth Hardin [facility] Hospital03-11-2024 Miscellaneous Notes* Telephone Encounter - Gia Reinoso LPN - 06/03/2023 8:50 AM EDT PA obtained for Bosulif 400 mg daily. 05/31/2023 thru 05/29/2024 Gia Reinoso LPN documented in this encounterOhiohealth Hardin [facility]03-07-2024 Miscellaneous Notes* Telephone Encounter - Fabiano Liz DO - 05/30/2023 12:50 PM EST Thank you. The following approved medication requests have been transmitted electronically. Requested Prescriptions Signed Prescriptions Disp Refills bosutinib (BOSULIF) 400 mg tablet 30 tablet 5 Sig: Take 1 tablet once daily with food. Fabiano Liz DO * Telephone Encounter - Alisha Romero LPN - 05/30/2023 10:13 AM EST Rx pended to [facility]. Alisha Romero LPN documented in this encounterOhiohealth Hardin [facility] Hospital02-02-2024 History of Present illness Narrative* Ángela Johnson RT(R) - 04/26/2023 9:40 AM EST Radiology Service Progress Note PATIENT NAME: Libia Olivas DATE OF SERVICE: April 26, 2023 TIME: 9:38 AM PATIENT IDENTITY VERIFICATION COMPLETED USING TWO (2) IDENTIFIERS: Name and Date of confirmedby patient verbally. FALL SCREENING: Has the patient had 2 falls in the last year or 1 fall with injury or currently using an Ambulatory Assistive Device (Walker, Cane, Wheelchair, Crutches, etc.)? No PATIENT GENDER DATA: Female. status: : No status: NO. PATIENT RELEVANT IMPLANT DATA REVIEWED: Yes PATIENT PRESENTS WITH AN IMPLANTABLE OR ATTACHED COMMERCIAL APPRAISER: No RADIOLOGY DEPARTMENT: General X-ray: Exam(s) Completed: Chest X-Ray PERIPHERAL IV DATA: Not applicable SIGNED BY: RT Stanford(R) April 26, 2023 9:38 AM documented in this encounterOhiohealth Hardin [facility] Hospital02-02-2024 History of Present illness Narrative* Fabiano Liz DO - 04/26/2023 8:47 AM EST Diagnosis: 1) Chronic phase CML. HPI: The patient is a 48-year-old female with past medical history significant for hypothyroidism, sleep apnea (CPAP) and obesity. Was in [place]. On return had found to have elevated triglycerides when had labs done by Dr. Mckeon as part of screening labs for weight loss medications. Had recheck of triglycerides (and a CBC since hadn't had in a year) at [facility] and incidental leukocytosis with WBC count 135.68K. Hgb and platelets normal. Recheck at [facility] 07/21/2022 revealed total white count 131.8 thousand. Hemoglobin 12.3 g/dL. Platelet count 211,000. Absolute neutrophil count 90,000. Absolute lymphocyte count 8000. 15% bands, 2% monocytes, 3% eosinophils, 6% metamyelocytes, 5% myelocytes, 3% promyelocytes and 6% blasts were quantitated on the differential. She does not have any chronic recurring fever or drenching night sweats. Normal appetite. No early satiety. No left upper quadrant pain. No bleeding issues or unexplained bruising. Had partial hysterectomy previously. No longer has menses. No history of cardiac disease, renal disease or pancreatic disease. No chronic respiratory illnesses. Uses omeprazole on occasion as needed. Current therapy: 1) Bosutinib. Began 08/11/2022. Presents for ongoing oncologic management. Interim history: Change in visual acuity rather abruptly--about 2 weeks. Saw consumer loan processor. No structural abnormality of eye. Got new Rx and okay now. Legs well end of day. 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 Down in the mornings. Diarrhea off and on. Imodium stops if for a couple days. Her dentist asked her to inquire about the use of Tums or Gaviscon for acid reflux. Evidently her reflux is starting to affect her teeth. Has noticed change in resting pulse rate--has gone from the 60s to the 50s on average. More short of breath with walking. She is on her feet most of the day working in the ER. No chest pain but gets occasional pain in her left shoulder blade. No chest pressure. PMH, medications and allergies personally reviewed by me today. Any changes documented in appropriate section. ROS: Constitutional: See HPI. Neuro: Denies BAÑUELOS, vertigo, dizziness and imbalance. Denies symptoms of neuropathy. HEENT: No recent change in voice, vision or hearing. Resp: Denies cough, wheeze and hemoptysis. Denies shortness of breath at rest. CVS: Denies exertional chest pain, PND, orthopnea and LE edema. GI: See HPI. : Denies dysuria or gross hematuria. No symptoms of bladder outlet obstruction. Endo: Denies hot flashes. Denies polyuria and polydipsia. Denies heat and cold intolerance. Musculoskeletal: Chronic right posterior hip pain. Derm: See HPI. Heme: Denies unusual bleeding and unexplained bruising. Psych: Normal mood. PHYSICAL EXAM: Vitals: Blood pressure 135/69, pulse 62, temperature 37.1 C (98.7 F), weight 105.7 kg (233 lb), SpO2 99%. Well-appearing and in no acute distress. EYES: Sclerae are anicteric bilaterally. ENT: Oral mucosa is unremarkable. There is no sign of thrush or mucositis. LYMPHATIC: There is no palpable cervical, supraclavicular, axillary adenopathy. RESPIRATORY: Inspiratory breath sounds are of normal intensity in all thakur. No rales, wheezes or rhonchi. CARDIOVASCULAR: Rhythm is regular. ABDOMEN: The abdomen is nondistended. Cannot appreciate splenomegaly. Extremities: No swelling currently. SKIN: No jaundice. LABORATORY DATA: Component Latest Ref Rng & Units 04/26/2023 WBC 3.70 - 11.00 k/uL 6.57 RBC 3.90 - 5.20 m/uL 4.61 Hemoglobin 11.5 - 15.5 g/dL 12.3 Hematocrit 36.0 - 46.0 % 38.0 MCV 80.0 - 100.0 fL 82.4 MCH 26.0 - 34.0 pg 26.7 MCHC 30.5 - 36.0 g/dL 32.4 RDW-CV 11.5 - 15.0 % 13.9 Platelet Count 150 - 400 k/uL 244 MPV 9.0 - 12.7 fL 10.3 Neut% % 68.1 Abs Neut (ANC) 1.45 - 7.50 k/uL 4.48 Lymph% % 23.3 Abs Lymph 1.00 - 4.00 k/uL 1.53 Robeson% % 5.5 Abs Robeson <0.87 k/uL 0.36 Eosin% % 2.1 Abs Eosin <0.46 k/uL 0.14 Baso% % 0.8 Abs Baso <0.11 k/uL 0.05 Immature Gran % % 0.2 IMMATURE GRANS (ABS) <0.10 k/uL <0.03 NRBC /100 WBC 0.0 Absolute nRBC <0.01 k/uL <0.01 DTYPE Auto ASSESSMENT/PLAN: (C92.10) CML (chronic myelocytic leukemia) (HCC) (primary encounter diagnosis) (R06.00, R06.89) Dyspnea and respiratory abnormalities (K21.9) Gastroesophageal reflux disease, unspecified whether esophagitis present Assessment: -The patient is a 48-year-old female incidentally found to have leukocytosis with immature granulocytes and mild splenomegaly suggestive of CML. She had not had any bleeding or bruising issues. No recent illnesses at the time of presentation. No fever, night sweats or early satiety. -Initial diagnostic PCR for BCR/ABL on peripheral blood demonstrated both p210 and p190 fusion transcripts with p210 being far greater. -As of 01/2023, meeting milestones for decrease in percent I-S. -Tolerating bosutinib overall well. Reviewed CBC and chemistry panel. No evidence of hepatotoxicity. CBC now normal. -Increasing dyspnea with exertion. No findings suggestive of cardiomyopathy or pleural effusion presently. -Acid reflux. Cannot use PPI while on bosutinib. Affecting her teeth. Plan: -Lasix 20 mg as needed for greater than 3 pound weight gain from the preceding day. She will take 20 mEq of potassium on days she takes Lasix. -EKG and chest x-ray today. -Echocardiogram. -Add on quantification of BCR/ABL both p190 and p210 transcript today. This will assess her 9-monthLa Gamaliel. -Lab work including repeat PCR followed by office visit in 3 months. -Can use Gaviscon or Tums if taken at least 2 hours before or at least 2 hours after taking bosutinib. Portions of this documentation were copied and pasted from previous office visit notes in order to provide a cohesive continuity of the history. The note has been reviewed and edited and updated as necessary. Fabiano Liz DO documented in this encounterOhiohealth Hardin [facility] Hospital11-13-2023 Miscellaneous Notes* Telephone Encounter - Gia Reinoso LPN - 02/04/2023 9:28 AM EST Pt. Notifed molecular testing shows the leukemia is responding very well to current medication. Deeper molecular response. Pt. Voiced understanding. Gia Reinoso LPN * Telephone Encounter - Fabiano Liz DO - 02/03/2023 3:28 PM EST Can let her know that her molecular testing shows the leukemia is responding very well to current medication. Deeper molecular response. Fabiano Liz DO documented in this encounterOhiohealth Hardin [facility] Hospital10-06-2023 Miscellaneous Notes* Telephone Encounter - Alisha Romero LPN - 12/28/2022 1:07 PM EDT Patient notified that Rx was sent in to [facility] in [place] as requested. Alisha Romero LPN documented in this encounterOhiohealth Hardin [facility] Hospital10-06-2023 Miscellaneous Notes* Telephone Encounter - Gia Reinoso LPN - 12/28/2022 10:55 AM EDT Per my chart request , pt. Is completely out of medication Patient has been identified by name and date of : Yes Requested Prescriptions Pending Prescriptions Disp Refills allopurinol (ZYLOPRIM) 300 mg tablet 30 tablet 5 Sig: Take 1 tablet by mouth once daily. RX INSTRUCTIONS: Patient aware RX will be sent to pharmacy. No need to notify patient. Gia Reinoso LPN documented in this [facility]08-02-2023 Miscellaneous Notes* Telephone Encounter - Alisha Romero LPN - 10/24/2022 9:39 AM EDT Order and demographics faxed to [facility]. Alisha Romero LPN * Telephone Encounter - Sona Carlos - 10/24/2022 9:32 AM EDT Message relayed to patient. She is requesting order to be faxed to [facility] for Echo * Telephone Encounter - Alisha Romero LPN - 10/24/2022 8:54 AM EDT Message left on patient's VM asking her to contact the office. GMEX message also sent. Alisha Romero LPN * Telephone Encounter - Fabiano Liz DO - 10/24/2022 7:52 AM EDT Can let her know that the lab testing showed her serum iron was a little low so she may benefit from starting OTC ferrous sulfate 325 mg tablet 1 every other day. Chest x-ray was clear. Radiologist thought the heart was a little enlarged which is a subjective interpretation, but since medication for CML can cause pericardial effusion, I recommend echocardiogram to further evaluate. Can be done at [facility] if better for her. Still awaiting molecular testing which may take several more days. Fabiano Liz DO documented in this encounterOhiohealth [facility]07-31-[facility]23 History of Present illness Narrative* Fabiano Liz DO - 10/22/2022 3:53 PM EDT Diagnosis: 1) Chronic phase CML. HPI: The patient is a 47-year-old female with past medical history significant for hypothyroidism, sleep apnea (CPAP) and obesity. Was in [place]. On return had found to have elevated triglycerides when had labs done by Dr. Mckeon as part of screening labs for weight loss medications. Had recheck of triglycerides (and a CBC since hadn't had in a year) at [facility] and incidental leukocytosis with WBC count 135.68K. Hgb and platelets normal. Recheck at [facility] 07/21/2022 revealed total white count 131.8 thousand. Hemoglobin 12.3 g/dL. Platelet count 211,000. Absolute neutrophil count 90,000. Absolute lymphocyte count 8000. 15% bands, 2% monocytes, 3% eosinophils, 6% metamyelocytes, 5% myelocytes, 3% promyelocytes and 6% blasts were quantitated on the differential. She does not have any chronic recurring fever or drenching night sweats. Normal appetite. No early satiety. No left upper quadrant pain. No bleeding issues or unexplained bruising. Had partial hysterectomy previously. No longer has menses. No history of cardiac disease, renal disease or pancreatic disease. No chronic respiratory illnesses. Uses omeprazole on occasion as needed. Current therapy: 1) Bosutinib. Began 08/11/2022. Presents for ongoing oncologic management. Interim history: Has noticed quite a bit of hair thinning. More acne lesion face. Tattoo borders puffed up. Leg and arm swelling depending on how much she is doing that day. Weight can go up 10 lbs in a day. Choking on food when swallowing in the evening. Always had hard time swallowing food. Insomnia. Fatigue. Diarrhea off an on. PMH, medications and allergies personally reviewed by me today. Any changes documented in appropriate section. ROS: Constitutional: See HPI. Neuro: Denies BAÑUELOS, vertigo, dizziness and imbalance. Denies symptoms of neuropathy. HEENT: No recent change in voice, vision or hearing. Resp: Denies cough, wheeze and hemoptysis. Denies shortness of breath at rest. CVS: Denies exertional chest pain, PND, orthopnea and LE edema. GI: See HPI. : Denies dysuria or gross hematuria. No symptoms of bladder outlet obstruction. Endo: Denies hot flashes. Denies polyuria and polydipsia. Denies heat and cold intolerance. Musculoskeletal: Chronic right posterior hip pain. Derm: See HPI. Heme: Denies unusual bleeding and unexplained bruising. Psych: Normal mood. PHYSICAL EXAM: Vitals: Blood pressure 122/79, pulse 70, temperature 37.3 C (99.1 F), weight 104.1 kg (229 lb 8 oz), SpO2 98 %. Well-appearing and in no acute distress. Mild generalized hair thinning. EYES: Sclerae are anicteric bilaterally. ENT: Oral mucosa is unremarkable. There is no sign of thrush or mucositis. LYMPHATIC: There is no palpable cervical, supraclavicular, axillary adenopathy. RESPIRATORY: Inspiratory breath sounds are of normal intensity in all thakur. No rales, wheezes or rhonchi. CARDIOVASCULAR: Rhythm is regular. ABDOMEN: The abdomen is nondistended. Cannot appreciate splenomegaly today. Extremities: Mild symmetric swelling of both lower extremities without pitting. SKIN: No jaundice. Tattoo lower back okay now. Small rectangular shaped black nevus left side of tattoo. LABORATORY DATA: Component Latest Ref Rng & Units 08/16/2022 09/06/2022 09/27/2022 10/18/2022 WBC 3.70 - 11.00 k/uL 156.84 (H) 7.07 7.14 8.41 RBC 3.90 - 5.20 m/uL 4.03 3.58 (L) 3.96 4.45 Hemoglobin 11.5 - 15.5 g/dL 11.7 10.5 (L) 11.3 (L) 12.1 Hematocrit 36.0 - 46.0 % 36.2 32.9 (L) 34.8 (L) 38.0 MCV 80.0 - 100.0 fL 89.8 91.9 87.9 85.4 MCH 26.0 - 34.0 pg 29.0 29.3 28.5 27.2 MCHC 30.5 - 36.0 g/dL 32.3 31.9 32.5 31.8 RDW-CV 11.5 - 15.0 % 17.8 (H) 18.4 (H) 15.2 (H) 14.1 Platelet Count 150 - 400 k/uL 177 159 229 279 MPV 9.0 - 12.7 fL 9.6 10.2 9.7 9.8 NRBC /100 WBC 0.0 0.0 0.0 0.0 Absolute nRBC <0.01 k/uL <0.01 <0.01 <0.01 <0.01 Neut% % 57.0 58.2 65.6 66.7 Abs Neut (ANC) 1.45 - 7.50 k/uL 89.40 (H) 4.11 4.68 5.61 Lymph% % 6.0 20.9 21.7 21.8 Abs Lymph 1.00 - 4.00 k/uL 9.41 (H) 1.48 1.55 1.83 Robeson% % 8.0 10.6 9.5 7.1 Abs Robeson <0.87 k/uL 12.55 (H) 0.75 0.68 0.60 Eosin% % 5.0 6.9 1.8 3.2 Abs Eosin <0.46 k/uL 7.84 (H) 0.49 (H) 0.13 0.27 Baso% % 6.0 1.7 1.1 1.0 Abs Baso <0.11 k/uL 9.41 (H) 0.12 (H) 0.08 0.08 Friendship% % 6.0 Myelo% % 10.0 Blast <=0.0 % 2.0 (H) Left Shift Present Platelet Estimate Adequate Red Cell Morph Reviewed: see results of individual morphologies Polychromasia Slight Anisocytosis Present Tear Drop Few DTYPE Manual Auto Auto Auto Immature Gran % % 1.7 0.3 0.2 IMMATURE GRANS (ABS) <0.10 k/uL 0.12 (H) <0.03 <0.03 Protein, Total 6.3 - 8.0 g/dL 7.3 7.2 Albumin 3.9 - 4.9 g/dL 4.6 4.7 Calcium 8.5 - 10.2 mg/dL 9.6 9.0 Bilirubin, Total 0.2 - 1.3 mg/dL 0.4 0.4 Alkaline Phosphatase 34 - 123 U/L 95 97 AST 13 - 35 U/L 25 14 ALT 7 - 38 U/L 34 33 Glucose 74 - 99 mg/dL 85 88 BUN 7 - 21 mg/dL 12 10 Creatinine 0.58 - 0.96 mg/dL 0.80 0.79 Sodium 136 - 144 mmol/L 140 140 Potassium 3.7 - 5.1 mmol/L 3.8 3.7 Chloride 97 - 105 mmol/L 103 106 (H) CO2 22 - 30 mmol/L 23 22 Anion Gap 9 - 18 mmol/L 14 12 eGFR >=60 mL/min/1.73m 93 94 ASSESSMENT/PLAN: (D72.825) Bandemia (primary encounter diagnosis) Assessment: -The patient is a 47-year-old female incidentally found to have leukocytosis with immature granulocytes and mild splenomegaly suggestive of CML. She had not had any bleeding or bruising issues. No recent illnesses at the time of presentation. No fever, night sweats or early satiety. -Initial diagnostic PCR for BCR/ABL on peripheral blood demonstrated both P2 10 and P1 90 fusion transcripts with P210 being far greater. -She is having a lot of side effects from bosutinib although it is working very nicely. -Discussed checking iron and thyroid function due to hair thinning. -She feels diarrhea is manageable. -Discussed strategy for mitigating fluid retention. Plan: -Lasix 20 mg as needed for greater than 3 pound weight gain from the preceding day. She will take 20 mill equivalents of potassium on days she takes Lasix. -Check TSH and T4. -Check iron studies. -Chest x-ray today. -Check lipase and phosphorus. -Assess quantification of BCR ABL both P190 and P210 transcript today. -Continue monthly CBC/CMP. -Lab work including repeat PCR followed by office visit in 3 months. Portions of this documentation were copied and pasted from previous office visit notes in order to provide a cohesive continuity of the history. The note has been reviewed and edited and updated as necessary. I spent a total of 40 minutes on the date of the service which included preparing to see the patient, [id number] patient care, completing clinical documentation, obtaining and/or reviewing separately obtained history, performing a medically appropriate examination, counseling and educating the pat ient/family/caregiver, ordering medications, tests, or procedures, communicating with other HCPs (not separately reported), and communicating results to the patient/family/caregiver. Fabiano Liz DO documented in this encounterOhiohealth [facility]in [facility]06-29-2023 Miscellaneous Notes* Telephone Encounter - Ligia Mtz RN - 09/20/2022 4:29 PM EDT Patient informed of Dr. Liz's verbal response, stated understanding. Patient informed to contact her dentist if she has any worsening s/s. Patient stated understanding. Ligia Mtz RN documented in this encounterOhiohealth [facility]in [facility]06-08-2023 Miscellaneous Notes* Telephone Encounter - Alisha Romero LPN - 08/30/2022 8:32 AM EDT Patient aware of all information. Appointment notes updated for CMP. Alisha Romero LPN * Telephone Encounter - Fabiano Liz DO - 08/30/2022 6:14 AM EDT Blood counts continue to improve very nicely. ALT mildly elevated which can occur with bosutinib. Continue present therapy and add weekly CMP. Currently getting every other week CMP. Fabiano Liz DO documented in this encounterOhiohealth [facility]in [facility]06-06-2023 Miscellaneous Notes* Telephone Encounter - Ligia Mtz RN - 08/28/2022 4:02 PM EDT Patient went to express care yesterday. CXR unremarkable. NO antibiotics were given. Patient was instructed to continue with zyrtec and OTC decongestants. Ligia Mtz RN * Telephone Encounter - Fabiano Liz DO - 08/27/2022 4:48 PM EDT Agree. Thank you. Fabiano Liz DO * Telephone Encounter - Ligia Mtz RN - 08/27/2022 4:42 PM EDT Disposition: per Dr. Liz, patient directed to: Same day/next day appointment in [place] Patient should proceed to urgent/express care to be evaluated. Patient is on her way to the [facility] on [facility]. Patient stated she is prone to yeast infections if she goes on antibiotics;per mauromp diflucan and Bosutinib should be avoided. Patient advised to picket [employer] (if prescribed antibiotics), increase probiotics and space out 2 hours apart from antibiotics, and eat yogurt . Patient stated understanding. This nurse will review express care notes tomorrow. Ligia Mtz RN * Telephone Encounter - Ligia Mtz RN - 08/27/2022 4:05 PM EDT [facility] Coordination FOLLOW-UP NOTE Patient identified by name and date of . YES Spoke to patient. Patient stated she is now coughing up green mucous, still has a hoarse voice, has pain in her chestand back from coughing rates pain 3/10 and only has pain when she coughs, denies chest pressure. Patient stated she has SOB from time to time but not on a regular basis.Patient stated she no longer has stuffy sinuses and feels this has moved into her chest. Patient denies fever or chills. Patient has not tired Mucinex but she has increased fluid intake. Patient has continued zyrtec. Care Coordination Plan: will discuss with Dr. Liz. Ligia Mtz RN August 27, 2022 * Telephone Encounter - Sona Berrios Pss - 08/27/2022 10:26 AM EDT Patient called to update. Phone rings busy. Please call when able. * Telephone Encounter - Ligia Mtz RN - 08/23/2022 4:32 PM EDT [facility] Coord[facility] FOLLOW-UP NOTE Patient identified by name and date of . YES Spoke to patient Summary: (Reason for follow-up) Called patient to follow-up on symptoms. Patient stated she was nauseous earlier, took Zofran whichalleviated the nausea. Diarrhea has resolved. Patient stated she still has an occasional cough thathas changed from a dry cough to a more productive cough. Patient stated she doesn't feel terrible but she does have a hoarse voice. Stuffy nose has resolved. Patient denies fever, chills, chest pain/pressure/discomfort, SOB or wheezing. Patient is still taking zyrtec at night. Patient stated she has also been taking motrin 800 mg once daily if that if she has any body aches or pains. Patient has not taken motrin today. Patient had labs drawn today. Patient aware our office will notify her if there are any concerns with her lab work. Patient was also instructed to use Mucinex if needed for the cough and increase decaffeinated fluids since she has only had 2 cups of coffee and 1 cup of water today. Patient instructed to call if he has worsening symptoms, continues to have cold or URI symptoms that do not get better with discussed interventions, or if she has any further questions/concern s. Patient stated understanding. Care Coordination Plan: Will follow up pending labs and if there are further instructions from Dr. Liz. Ligia Mtz RN August 23, 2022 documented in this encounterOhiohealth [facility]in [facility]06-05-2023 History of Present illness Narrative* Beatris Saba RT(R) - 08/27/2022 5:20 PM EDT Radiology Service Progress Note PATIENT NAME: Libia Olivas DATE OF SERVICE: August 27, 2022 TIME: 5:29 PM PATIENT IDENTITY VERIFICATION COMPLETED USING TWO (2) IDENTIFIERS: Name and Date of confirmedby patient verbally. FALL SCREENING: Has the patient had 2 falls in the last year or 1 fall with injury or currently using an Ambulatory Assistive Device (Walker, Cane, Wheelchair, Crutches, etc.)? No PATIENT GENDER DATA: Female. status: : No status: NO. PATIENT RELEVANT IMPLANT DATA REVIEWED: Not Applicable RADIOLOGY DEPARTMENT: General X-ray: Exam(s) Completed: Chest X-Ray PERIPHERAL IV DATA: Not applicable SIGNED BY: RT Velma(R) August 27, 2022 5:29 PM documented in this encounterOhiohealth Hardin [facility]06-05-2023 History of Present illness Narrative* Lori Solano APRN.SHOVEL LOG LOADER OPERATOR - 08/27/2022 5:14 PM EDT This note was created using ClickMagicriter. Subjective Libia Olivas is a 47 year old female. 47 year old female with PMH CML presents for illness. Acute onset 8 days ago +cough +productive, initially clear sputum Has since turned green. Endorses cough is worsening. Morning she will experience wheezing. Denies hemoptysis. Denies SOB or CP Denies fever or chills. She is complaining of left ear fullness. Of note recent diagnosis CML Dr. Liz hem/onc and referred patient for CXR. Denies tobacco usage Has been using Zyrtec She is leaving for [place] this . The history is provided by the patient. No sign language interpreter was used. Cough This is a new problem. The current episode started more than 1 week ago. The problem occurs constantly. The problem has been gradually worsening. The cough is Productive of sputum. There has been no fever. Associated symptoms include ear congestion and wheezing (in mornings). Pertinent negatives include no chest pain, no chills, no sweats, no weight loss, no ear pain, no headaches, no rhinorrhea,no sore throat, no myalgias, no shortness of breath and no eye redness. Treatments tried: Zyrtec. The treatment provided mild relief. She is not a smoker. Her past medical history does not include bronchitis, pneumonia, bronchiectasis, COPD, emphysema or asthma. PAST MEDICAL HISTORY Diagnosis Date Hypothyroid Obesity Sleep apnea PAST SURGICAL HISTORY Procedure Laterality Date SECTION HX 08/28/1995 SECTION HX 06/29/2003 D&C (MISSED AB 2ND TRIMESTER) 2003 ESOPHAGOGASTRODUODENOSCOPY TRANSORAL DIAGNOSTIC 08/20/2017 EGD - gastritis, mild reflux esophagitis HYSTERECTOMY HX 2014 LAPS SURG CHOLECYSTECTOMY W/CHOLANGIOGRAPHY 09/06/2009 Normal IOC LASIK Bilateral 2006 ALLERGIES Iv Dye [Iodinated Contrast Media] and Nubain [Nalbuphine Hcl] MEDICATIONS ondansetron (ZOFRAN) 8 mg tablet Take 1 tablet by mouth every 8 hours as needed (For chemotherapy induced nausea and vomiting). bosutinib (BOSULIF) 400 mg tablet Take 1 tablet (400 mg) by mouth once daily with food. levothyroxine (SYNTHROID) 125 mcg tablet Take 125 mcg by mouth once daily. allopurinol (ZYLOPRIM) 300 mg tablet Take 1 tablet by mouth once daily. FAMILY HISTORY Problem Relation Age of Onset Hypertension Mother Heart Mother other (Thoracic outlet syndrome) Mother Heart Father Cancer Father thyroid Lipids Father Hypertension Father Stroke Paternal Grandfather Dementia Paternal Grandfather other (Neuroblastoma) Granddaughter other (other) Granddaughter Social History Tobacco Use Smoking status: Never Smokeless tobacco: Never Substance Use Topics Alcohol use: Yes Comment: Not often Drug use: No Review of Systems Constitutional: Negative for chills, fatigue, fever and weight loss. HENT: Positive for hearing loss. Negative for ear pain, rhinorrhea and sore throat. Eyes: Negative for pain, discharge, redness and itching. Respiratory: Positive for cough and wheezing (in mornings). Negative for shortness of breath. Cardiovascular: Negative for chest pain. Gastrointestinal: Negative for abdominal pain, diarrhea, nausea and vomiting. Musculoskeletal: Negative for arthralgias, back pain, gait problem and myalgias. Skin: Negative for pallor. Allergic/Immunologic: Negative for environmental allergies, food allergies and immunocompromised state. Neurological: Negative for dizziness, facial asymmetry, light-headedness, numbness and headaches. Hematological: Negative for adenopathy. Does not bruise/bleed easily. Psychiatric/Behavioral: Negative for agitation and behavioral problems. Objective BP 124/74 Pulse 76 Temp 37.2 C (98.9 F) Resp 16 Wt 102.1 kg (225 lb) SpO2 95% BMI 37.16kg/m Physical Exam Vitals and nursing note reviewed. Constitutional: General: She is not in acute distress. Appearance: Normal appearance. She is normal weight. She is not ill-appearing, toxic-appearing or diaphoretic. HENT: Head: Normocephalic and atraumatic. Right Ear: Ear canal and external ear normal. Left Ear: There is impacted cerumen. Ears: Comments: Left EAC with impacted cerumen. Nursing staff irrigates and resolves impaction TM visualized and normal. Hearing improved. Nose: Nose normal. No congestion or rhinorrhea. Mouth/Throat: Mouth: Mucous membranes are moist. Pharynx: No oropharyngeal exudate or posterior oropharyngeal erythema. Eyes: General: Right eye: No discharge. Left eye: No discharge. Extraocular Movements: Extraocular movements intact. Conjunctiva/sclera: Conjunctivae normal. Pupils: Pupils are equal, round, and reactive to light. Cardiovascular: Rate and Rhythm: Normal rate and regular rhythm. Pulses: Normal pulses. Heart sounds: Normal heart sounds. No murmur heard. No friction rub. Pulmonary: Effort: Pulmonary effort is normal. No respiratory distress. Breath sounds: Normal breath sounds. No stridor. No wheezing, rhonchi or rales. Chest: Chest wall: No tenderness. Abdominal: General: Abdomen is flat. There is no distension. Palpations: Abdomen is soft. There is no mass. Tenderness: There is no abdominal tenderness. There is no right CVA tenderness, left CVA tenderness, guarding or rebound. Hernia: No hernia is present. Musculoskeletal: General: No swelling, tenderness, deformity or signs of injury. Normal range of motion. Cervical back: Normal range of motion and neck supple. No rigidity. Right lower leg: No edema. Left lower leg: No edema. Lymphadenopathy: Cervical: No cervical adenopathy. Skin: General: Skin is warm and dry. Coloration: Skin is not jaundiced or pale. Findings: No bruising, erythema, lesion or rash. Neurological: General: No focal deficit present. Mental Status: She is alert and oriented to person, place, and time. Cranial Nerves: No cranial nerve deficit. Sensory: No sensory deficit. Motor: No weakness. Coordination: Coordination normal. Gait: Gait normal. Psychiatric: Mood and Affect: Mood normal. Behavior: Behavior normal. Thought Content: Thought content normal. Judgment: Judgment normal. Assessment and Plan ASSESSMENT/PLAN: 1. Acute cough - ICD9: 786.2, ICD10: R05.1 (primary diagnosis) X 8 days No red flags Lungs CTA - XR CHEST 2V FRONTAL/LAT-negative for acute process Continue Zyrtec May utilize decongestants 2. Impacted cerumen, left ear - ICD9: 380.4, ICD10: H61.22 Left EAC with impacted cerumen. Nursing staff irrigates and resolves impaction TM visualized and normal. Hearing improved. - AMBULATORY EAR LAVAGE/IRRIGATION 3. Hearing loss due to cerumen impaction, left - ICD9: 389.8, 380.4, ICD10: H61.22 Left EAC with impacted cerumen. Nursing staff irrigates and resolves impaction TM visualized and normal. Hearing improved. Lori Solano APRN.SHOVEL LOG LOADER OPERATOR documented in this encounterOhiohealth [facility]in [facility]05-31-2023 Miscellaneous Notes* Telephone Encounter - Sona Berrois Pss - 08/22/2022 3:10 PM EDT Scheduled appts with pt * Telephone Encounter - Ligia Mtz RN - 08/22/2022 2:[address] Liz's note on 08/10 in 08/09 phone encounter: Can start medication tomorrow. Then schedule for weekly CBC beginning next or Saturday. Every 2 weeks CMP beginning with for CBC. Office visit in about 8 weeks. Patient started medication on 08/11/22. Patient needs the rest of her weekly lab draws scheduled andalso an OV. Thank you. Ligia Mtz RN * Telephone Encounter - Ligia Mtz RN - 08/22/2022 1:22 PM EDT Patient informed of Dr. Liz's response, stated understanding. Patient stated she has had difficulty sleeping the past two nights. The first night she was achy, last night she had 4 episodes of semi-formed stool. Patient denies having watery stool. Patient took imodium with the first two episodes. Since she has been up today, she has had three more episodes and has not taken anymore imodium. Patient stated she was getting ready to take another imodium tablet. Patient stated she took Zofran and zyrtec at bedtime last night d/t feeling nauseous and unwell. Patient stated she checked her temperature last night and it was 97 F. Reviewed how to take imodium, encouraged the BRAT diet, and increase fluid intake. Discussed fiber with patient before and she hasnot started yet. Patient informed she can take benadryl or melatonin at night to help her sleep if needed. Patient is going to increase imodium today, patient instructed to call this nurse tomorrow morning if she is still having diarrhea issues despite taking imodium. Patient instructed to call our office or after hour number if she develops a temperature of 100.4 F or higher. Patient stated understanding. Ligia Mtz RN * Telephone Encounter - Ligia Mtz RN - 08/21/2022 10:25 AM EDT [facility] [employer] FOLLOW-UP PHONE CALL/VISIT Patient identified by name and date of . YES Patient is on bosutinib SYMPTOM ASSESSMENT Headache: No Mouth or throat pain: Yes tickle in her throat Episodes of palpitations/chest discomfort/pressure/pain No Shortness of breath: Yes felt SOB when she was outside yesterday. Patient stated she felt better when she came inside in the A/C. Patient stated a year ago she was on a motorcycle ride and felt like she was going to have a panic attack due to the heat and feeling SOB. Pulse oximeter within normal range. Cough: Yes; started yesterday, yellow sputum. Patient stated she get this every year around this time d/t allergies. Patient has sinus drainage, denies wheezing or chest pain/pressure. Pain: body aches Fever: No Chills: No Patient denies having a headache over the weekend or needing Tums. Patient stated she gets hay fever symptoms every year this time of year for a few days and then symptoms resolve without intervention. Patient has body aches, sinus drainage, and an occasional cough with yellow phlegm. Patient stated yesterday when she was outside in the heat, she felt SOB and had a harder time catching her breath. Patient stated when she went inside in the A/C, symptoms resolved. Patient stated a year ago she was on a motorcycle ride and felt like she was going to have a panic attack due to the heat and feeling SOB. Pulse oximeter within normal range. Patient stated she was not drinking enough water yesterday and realizes she needs to increase fluid intake. Patient denies fever, chills, wheezing, irregular heartbeats, or dizziness with standing. Patient informed she can take Claritin or Flonase if needed; verified in lexicomp that there are no drug interactions. Will provide Dr. Liz with an update and will call back if needed. Patient stated she received literature from the pharmacy that states patient should avoid hot tubs,saunas, and swimming pools. Patient is asking if it would be okay for her to use her own hot tub swimming pool. Patient aware this nurse will call back after speaking to Dr. Liz. Ligia Mtz RN * Telephone Encounter - Sasha Bulladr - 08/17/2022 4:59 PM EDT Patient called to return Ligia's call. Please call back on Saturday. Sasha Bullard * Telephone Encounter - Ligia Mtz RN - 08/17/2022 1:00 PM EDT [employer]ER [employer] FOLLOW-UP PHONE CALL/VISIT Patient identified by name and date of . YES Patient is on cycle 1, week 1, day 7 of Bosulif (bosutinib) for Chronic Myelogenous Leukemia (CML). SYMPTOM ASSESSMENT Headache: Yes 2-3/10 in the morning. Patient takes tylenol or ibuprofen in the morning and the headache resolves until the next morning. Patient wears a CPAP at night but this has never bothered her before. Visual Changes: No Dizziness: No Do you have any periods of confusion? No Mood changes: No Mouth or throat pain: No Appetite: no changes in appetite, appetite fair Taste changes: No Nausea: Yes in the morning that feels like morning sickness patient denies emesis. Vomiting: No Heartburn: Yes: I do all the time, if I eat anything tomato it's real bad. Patient stated she hasbeen eating more fruits and vegetables and a glass of milk at bedtime which helps. Patient was on omeprazole which was discontinued for bosutinib. Weight gain/loss: 220 lbs this morning, naked weight Episodes of palpitations/chest discomfort/pressure/pain Yes I had PVCs before every once in awhile, and every once in awhile I can feel those. Does not occur every often, not continuous. Shortness of breath: No Cough: Yes; every once in awhile, dry Diarrhea: yes, 3 days not consecutively. One day patient had 10 episodes. Patient has used imodium when needed. See constipation notes. Constipation: yes, last BM patient has alternated with diarrhea. Patient went 1.5 days without a BM. Patient stated she had straining which is not normal for her. Patient stated yesterday and today her bowels have been normal. This nurse recommended fiber supplement like metamucil, take 1/2 dose for 1 week and increase to full dose. Bladder/Urinary Changes: I'm going a lot, but patient stated she is drinking a lot of water. Pain: No=0 (pain 0 on a scale of 0-10). Fever: No Chills: No Cold sensitivity: No Numbness/weakness: No Edema: No Skin changes: No. Itching: No Yellowing of skin or eyes: No Musculoskeletal/joint changes/issues Yes patient stated she has had muscle spasms in her right foot3/5 days. Patient stated its usually at night when she puts her feet up. Patient advised to roll the bottom of her foot on a hard or glass bottle to stretch out her foot to see if that helps alleviate the discomfort. Bleeding issues: Yes patient stated if she hits her arm on something she does seem to bruise easier. Denies unusual bleeding. Activity Level: Good until 2 pm then she hits a wall and then she feels more fatigued. Do you need to take naps? Once a day, about an hour nap. Blood sugar: patient stated she is concerned about her blood sugar. Yesterday prior to having labs drawn, she had chicken nuggets with honey and a sweet tea and her glucose was only 85. Patient started bosutinib on 08/11/22. Patient has c/o 2-3 headache pain every morning that resolvesafter taking tylenol or motrin. Patient denies visual changes with headache. Patient has nausea in the morning that feels like morning sickness. Per patient, the nausea is not bad enough to take Zofran. Patient has issues with reflux and used to take omeprazole but this was discontinued d/t taking bosutinib. Spoke to Dr. Liz. Patient can take tess's as long as its 2 hours before or 2 hours after taking bosutinib. Called patient to inform her of Dr. Liz's response with tums, there was no answer, a message was left requesting a call back from patient. Called patient again, no answer, left a detailed message on how she can take tums. Does the patient need interventions or same day appointment:No ADDITIONAL FOLLOW UP: The next outreach call is due on: TBD and was scheduled patient instructed to call with any questions or concerns. The following lab tests are due: CBC 08/23/22 Verified patient is aware of next appointment in the cancer center: Yes. Verified patient verbalized how to correctly refill the oral agent prescription. Yes Does the patient have any financial difficulties affording this medication? No Patient verbalizes understanding of when to seek Medical Attention? YES Patient verbalizes understanding of after-hours and weekend phone number? YES Patient verbalized importance of medication compliance in taking the oral agent as prescribed. Patient instructed to call if unable to comply. Ligia Mtz RN documented in this encounterOhio[facility]05-11-2023 Miscellaneous Notes* Telephone Encounter - Fabiano Liz DO - 08/02/2022 10:50 PM EDT The following approved medication requests have been transmitted electronically. Requested Prescriptions Signed Prescriptions Disp Refills bosutinib (BOSULIF) 400 mg tablet 30 tablet 5 Sig: Take 1 tablet (400 mg) by mouth once daily with food. Authorizing Provider: FABIANO LIZ DO * Telephone Encounter - Vilma Naqvi, [facility] - 08/02/2022 2:22 PM EDT Prior authorization was approved for Bosulif. Plan Name: Jasmyne BOWIE reference number: [id number] Approval Dates: 07/01/2022 - 07/31/2023 However, s/he is required to use [facility] to fill this medication. Will queue prescription(s) to go to designated specialty pharmacy. For reference, their pharmacy phone number is [phone]. No further action by [facility]. Vilma Naqvi, PharmD Clinical Pharmacist, Oncology [facility] P: , F: Pool: P CC [facility] Pool #: [id number] documented in this encounterOhiohealth Hardin [facility]05-04-2023 History of Present illness Narrative* Margaret Zaragoza ([employer]) - 07/26/2022 2:52 PM EDT [facility] received prescription(s) for Bosulif from Dr. Liz's office. Benefits investigation was conducted, indicating that a prior authorization is required by patient's insurance plan with [employer]. Encounter will be updated once prior authorization has been submitted by [facility]. Margaret Zaragoza [facility] documented in this encounterOhiohealth Hardin [facility]05-04-2023 Miscellaneous Notes* Telephone Encounter - Gia Marsh LPN - 07/26/2022 2:03 PM EDT Pt. Notified of blood results confirmed the Dx of CML. Rx was sent to specialty pharmacy. Informed it may take a couple of weekds she gets medications due to benefits investigations. She is to contact office once she receives the medication. We will then instruct her when to start and lab protocol. Pt. Voiced understanding. Gia Marsh LPN * Telephone Encounter - Fabiano Liz DO - 07/26/2022 1:51 PM EDT Can let her know that the blood testing confirmed the diagnosis of CML. I will send a prescription for bosutinib to the specialty pharmacy. Fabiano Liz DO documented in this encounterOhiohealth [facility]in [facility]05-03-2023 Miscellaneous Notes* Telephone Encounter - Gia Marsh LPN - 07/25/2022 2:41 PM EDT Patient s identity has been confirmed by name and birthdate: Yes Call received from Ray at 2:40 PM to report an urgent value for WBC with a result of 134.[address] Liz was notified of the result at 11:07AM. When Dr. Liz seen pt. In office. Gia Marsh LPN documented in this encounterOhiohealth Hardin [facility]05-03-2023 Procedure note* Fabiano Liz DO - 07/25/2022 1:13 PM EDTAssociated Order(s): BONE MARROW BIOPSY Post-Procedure Diagnose(s): Bandemia BEDSIDE PROCEDURE NOTE BONE MARROW BIOPSY Performed by: Fabiano Liz DO Authorized by: Fabiano Liz DO Where was Patient When this Procedure was Performed [facility] Informed Consent Consent Obtained: Written [place] Protocol A moment to CARE was completed. SIGN IN Personnel directly involved with the procedure wore the appropriate PPE. Special Equipment: Yes (OnCShoulder Tap biopsy system) Patient/Surrogate Stated/Verified: Patient name, Date of , Relevant allergies and Intended procedure TIME OUT Intended patient and procedure match the source document(s). Consent documented and matches the intended procedure. No relevant labs, photos, and/or imaging studies were applicable for review. Correct side/site marked and visible. No medications required for procedure. Fire risk assessed and interventions discussed. No implant(s) inserted. Pre-procedure Details: The area was prepped with povidone Iodine (Betadine) and allowed to dry. A sterile partial body drape was applied following the usual aseptic technique. Medications: Local Anesthesia (see MAR): Lidocaine 1% Procedure Details: Patient Position: Left lateral decubitus Aspiration Laterality: Unilateral Aspiration Site: Right posterior superior iliac crest Biopsy Laterality: Unilateral Biopsy Site: Right posterior sperior iliac crest . OnControl biopsy system was used. Using aseptic technique, bone marrow aspiration was performed. A touch prep was taken. Core biopsy was obtained 2 cm. The core biopsy was confirmed. Post-procedure Details: Patient tolerated the procedure well with no immediate complications Estimated Blood Loss: Scant Specimens Sent: bone marrow analysis, DNA extraction, flow cytometry and bone marrow chromosome analysis (Additional specimen for marrow BCR/ABL P210 and P190 PCR) Teaching Complete: Bone Marrow Biopsy Post-procedure teaching complete Post-procedure care was reviewed and explained. Patient instructed to communicate complaints of redness, swelling, increased or unresolved pain, bleeding chills, bruising, and/or fever. Patient verbalized understanding. SIGN OUT No instruments, equipment or retained foreign bodies applicable. SIGNATURE: Fabiano Liz DO PATIENT NAME: Libia Olivas DATE: July 25, 2022 TIME: 1:13 PM documented in this encounterOhiohealth Hardin [facility]05-03-2023 History of Present illness Narrative* Claudia Foote RN - 07/25/2022 1:00 PM EDT Pt discharged to home with after BMBX with dry sterile dressing in place. No drainage noted. Post-procedure care reviewed with patient. Pt to call with any complaints of redness, swelling, increased or unresolved pain, bleeding, chills, bruising, and/or fever. Pt verbalized understanding. Claudia Foote RN documented in this encounterOhiohealth Hardin [facility]05-03-2023 History of Present illness Narrative* Fabiano Liz DO - 07/25/2022 11:49 AM EDT Patient referred by Dr. Calle for leukocytosis with blasts. The impression and plan will be communicated by way of the shared electronic record or faxed under separate cover letter. HPI: The patient is a 47-year-old female with past medical history significant for hypothyroidism, sleep apnea (CPAP) and obesity. Was in [place]. On return had found to have elevated triglycerides when had labs done by Dr. Mckeon as part of screening labs for weight loss medications. Had recheck of triglycerides (and a CBC since hadn't had in a year) at [facility] and incidental leukocytosis with WBC count 135.68K. Hgb and platelets normal. Recheck at [facility] 07/21/2022 revealed total white count 131.8 thousand. Hemoglobin 12.3 g/dL. Platelet count 211,000. Absolute neutrophil count 90,000. Absolute lymphocyte count 8000. 15% bands, 2% monocytes, 3% eosinophils, 6% metamyelocytes, 5% myelocytes, 3% promyelocytes and 6% blasts were quantitated on the differential. Feels well in general and offers no complaints today. She does not have any chronic recurring fever or drenching night sweats. Normal appetite. No early satiety. No left upper quadrant pain. No bleeding issues or unexplained bruising. Had partial hysterectomy previously. No longer has menses. No history of cardiac disease, renal disease or pancreatic disease. No chronic respiratory illnesses. Uses omeprazole on occasion as needed. PAST MEDICAL HISTORY Diagnosis Date Hypothyroid Obesity Sleep apnea PAST SURGICAL HISTORY Procedure Laterality Date SECTION HX 08/28/1995 SECTION HX 06/29/2003 D&C (MISSED AB 2ND TRIMESTER) 2002 ESOPHAGOGASTRODUODENOSCOPY TRANSORAL DIAGNOSTIC 08/20/2017 EGD - gastritis, mild reflux esophagitis HYSTERECTOMY HX 2014 LAPS SURG CHOLECYSTECTOMY W/CHOLANGIOGRAPHY 09/06/2009 Normal IOC LASIK Bilateral 2006 ALLERGIES Allergen Reactions Iv Dye [Iodinated C* Hives, Swelling Nubain [Nalbuphine * Vomiting Current Outpatient Medications Medication Sig levothyroxine (SYNTHROID) 125 mcg tablet Take 125 mcg by mouth once daily. LORazepam (ATIVAN) 1 mg tablet Take 1 tablet by mouth one time only for 1 dose. Take 1 tablet 1 hour prior to bone marrow biopsy. Do not start before July 25, 2022. oxyCODONE-acetaminophen (PERCOCET) 5-325 mg tablet Take 1 tablet by mouth one time only for 1 dose.Take 1 tablet 1 hour prior to bone marrow biopsy. Do not start before July 25, 2022. allopurinol (ZYLOPRIM) 300 mg tablet Take 1 tablet by mouth once daily. No current facility-administered medications for this visit. Social History Tobacco Use Smoking status: Never Smokeless tobacco: Never Substance Use Topics Alcohol use: Yes Comment: Not often Drug use: No Family History Problem Relation Age of Onset Hypertension Mother Heart Mother other (Thoracic outlet syndrome) Mother Heart Father Cancer Father thyroid Lipids Father Hypertension Father Stroke Paternal Grandfather Dementia Paternal Grandfather other (Neuroblastoma) Granddaughter other (other) Granddaughter Father thyroid cancer age 19. Two granddaughters with neuroblastoma. ROS: Constitutional: See HPI. Neuro: Denies BAÑUELOS, vertigo, dizziness and imbalance. Denies symptoms of neuropathy. HEENT: No recent change in voice, vision or hearing. Resp: Denies cough, wheeze and hemoptysis. Denies shortness of breath at rest. Denies AKERS. CVS: Denies exertional chest pain, PND, orthopnea and LE edema. GI: Denies dysphagia and odynophagia. Denies n/v, change in bowel habits and abdominal pain. : Denies dysuria or gross hematuria. No symptoms of bladder outlet obstruction. Endo: Denies hot flashes. Denies polyuria and polydipsia. Denies heat and cold intolerance. Musculoskeletal: Chronic right posterior hip pain. Derm: Denies rash. Denies jaundice and diffuse pruritis. Heme: Denies unusual bleeding and unexplained bruising. Psych: Normal mood. PHYSICAL EXAM: Vitals: Blood pressure 136/83, pulse 80, temperature 36.9 C (98.4 F), temperature source Temporal, height 165.7 cm (5' 5.25), weight 102.1 kg (225 lb). Well-appearing and in no acute distress. EYES: Sclerae are anicteric bilaterally. ENT: Oral mucosa is unremarkable. There is no sign of thrush or mucositis. LYMPHATIC: There is no palpable cervical, supraclavicular, axillary or inguinal adenopathy. RESPIRATORY: Inspiratory breath sounds are of normal intensity in all thakur. No rales, wheezes or rhonchi. CARDIOVASCULAR: Rhythm is regular. ABDOMEN: The abdomen is nondistended. Non-tender splenomegaly to two fingerbreadths below left costal margin in mid-clavicular line. Extremities: No swelling or edema. SKIN: No jaundice or rash. No petechiae. NEUROLOGIC: transmission design engineer II-XII are grossly intact. No focal motor weakness. DTRs are symmetric and normal. MUSCULOSKELETAL: No muscle wasting. LABORATORY DATA: Component Latest Ref Rng & Units 07/23/2022 07/25/2022 WBC 3.70 - 11.00 k/uL 140.79 (H) RBC 3.90 - 5.20 m/uL 4.20 4.03 Hemoglobin 11.5 - 15.5 g/dL 12.3 11.9 Hematocrit 36.0 - 46.0 % 37.5 36.0 MCV 80.0 - 100.0 fL 89.3 89.3 MCH 26.0 - 34.0 pg 29.3 29.5 MCHC 30.5 - 36.0 g/dL 32.8 33.1 RDW-CV 11.5 - 15.0 % 17.4 (H) 17.2 (H) Platelet Count 150 - 400 k/uL 226 220 MPV 9.0 - 12.7 fL 10.0 10.4 NRBC /100 WBC 0.0 Absolute nRBC <0.01 k/uL <0.01 Neut% % 58.0 Abs Neut (ANC) 1.45 - 7.50 k/uL 81.66 (H) Lymph% % 3.0 Abs Lymph 1.00 - 4.00 k/uL 4.22 (H) Robeson% % 11.0 Abs Robeson <0.87 k/uL 15.49 (H) Eosin% % 2.0 Abs Eosin <0.46 k/uL 2.82 (H) Baso% % 1.0 Abs Baso <0.11 k/uL 1.41 (H) Friendship% % 6.0 Myelo% % 17.0 Blast <=0.0 % 2.0 (H) Left Shift Present Platelet Estimate Adequate Red Cell Morph Reviewed: see results of individual morphologies Polychromasia Slight Anisocytosis Present Ovalocytes Few DTYPE Manual Protein, Total 6.3 - 8.0 g/dL 6.9 Albumin 3.9 - 4.9 g/dL 4.7 Calcium 8.5 - 10.2 mg/dL 9.1 Bilirubin, Total 0.2 - 1.3 mg/dL 0.4 Alkaline Phosphatase 34 - 123 U/L 92 AST 13 - 35 U/L 25 ALT 7 - 38 U/L 38 Glucose 74 - 99 mg/dL 92 BUN 7 - 21 mg/dL 12 Creatinine 0.58 - 0.96 mg/dL 0.76 Sodium 136 - 144 mmol/L 140 Potassium 3.7 - 5.1 mmol/L 3.4 (L) Chloride 97 - 105 mmol/L 105 CO2 22 - 30 mmol/L 22 Anion Gap 9 - 18 mmol/L 13 eGFR >=60 mL/min/1.73m 99 HIV 12 Combo (Ag/Ab) Nonreactive Nonreactive HIV 1/2 Ab HIV Interpretation Retic % 0.4 - 2.0 % 3.4 (H) Abs Retic 0.018 - 0.100 M/uL 0.142 (H) PT Sec <13.1 sec 10.0 PT INR 0.9 - 1.3 1.0 Hep B Surface Ab, Qual Positive Positive Hep B Surf Ab Quant >=12.00 mIU/mL 23.54 Pathologist Interpretation, CBCDIF Neutrophilic leukocytosis with left shift. . . . Pathologist (POWER) Reviewed by Virginie Agosto MD LD 135 - 214 U/L 771 (H) Uric Acid 2.5 - 6.6 mg/dL 8.7 (H) APTT 23.0 - 32.4 sec 24.8 Hep C Antibody IA Negative Negative Hep B Surface Ag Negative Negative Hep B Core Ab, Total Negative Negative ASSESSMENT/PLAN: (D72.825) Bandemia (primary encounter diagnosis) Assessment: -The patient is a 47-year-old female recently incidentally found to have leukocytosis with immaturegranulocytes and mild splenomegaly suggestive of CML. She has not had any bleeding or bruising issues. No recent illnesses. No fever, night sweats or early satiety. -I reviewed her recent CBC and differential done at [facility] and discussed the work- up with her and her . -Discussed typical approach to therapy with TKI. Will use second generation TKI pending if her insurance has a preference. -Discussed RBA of bone marrow biopsy. She agrees to proceed. Plan: -PCR for BCR/ABL translocation on peripheral blood pending from Saturday. -Bone marrow aspiration and biopsy today. -She will be contacted with the results of the above. Plan to send Rx for TKI once diagnosis confirmed with peripheral blood PCR. I spent a total of 60 minutes on the date of the service which included preparing to see the patient, [id number] patient care, completing clinical documentation, obtaining and/or reviewing separately obtained history, performing a medically appropriate examination, counseling and educating the pat ient/family/caregiver, communicating with other HCPs (not separately reported), independently interpreting results (not separately reported), and communicating results to the patient/family/caregiver. Fabiano Liz DO documented in this encounterMatthew Ville [id number] Miscellaneous Notes* Telephone Encounter - Alisha Romero LPN - 07/24/2022 8:53 AM EDT Patient read [employer] message. Alisha Romero LPN * Telephone Encounter - Fabiano Liz DO - 07/23/2022 6:06 PM EDT Her uric acid is elevated. Please advise her to start allopurinol 300 mg tablet once daily beginning tomorrow if possible. Fabiano Liz DO documented in this encounterOhiohealth [facility]in [facility]05-01-2023 Miscellaneous Notes* Telephone Encounter - Alisha Romero LPN - 07/23/2022 3:12 PM EDT Patient has taken Percocet in the past without incident. Pharmacy updated. Medications pended. Patient is aware of all instructions. Alisha Romero LPN * Telephone Encounter - Judith Duke Pss - 07/23/2022 2:17 PM EDT Patient is scheduled as requested below. We do need to get her insurance card form her when she comes in so please have patient stop at the Hem./Onc. PSS desk. Thank you, Judith Duke Pss * Telephone Encounter - Fabiano Liz DO - 07/23/2022 1:28 PM EDT Thank you. She does not have a pharmacy listed. Also has an allergy to Nubain so see if she is evertaken Percocet before. Fabiano Liz DO * Telephone Encounter - Alisha Romero LPN - 07/23/2022 1:12 PM EDT PSS- please schedule patient for a lab appointment for now, TODAY. Also schedule patient to see on 07/25/2022 @ 11:30 with a BMBX to follow OV. Patient is aware of all information and will stop by to see this nurse today for information regarding BMBX. Pharmacy (for BMBX premeds) to be added once patient stops in. Dr. Liz- please file lab orders. All changed to STAT. Alisha Romero LPN * Telephone Encounter - Alisha Romreo LPN - 07/23/2022 12:00 PM EDT Information received placed in Dr. Liz's mailbox for review. Requested OV note and additional labs. Alisha Romero LPN * Telephone Encounter - Judith Duke Pss - 07/23/2022 11:12 AM EDT , Dr.Lisa Calle called wanting to speak to you about Pepper. She stated they had sent over a new patient referral, our nurses have requested additional information from their office. Krystina is requesting a call back to her on her cell phone when you are able at [phone] Judith Duke Pss documented in this encounterOhiohealth Hardin Memorial HospitalEvaluation noteNo assessment information availableWFort Hamilton Hospital Work Phone: Evaluation note* Diagnosis Onset Date Resolution Status BMI 39.0-39.9,adult acute Climacteric acute Other obesity acute Encounter for routine gynecological examination noneactive [facility] Work Phone: Evaluation note* Diagnosis Onset Date Resolution Status BMI 39.0-39.9,adult acute Climacteric acute Other obesity acute Encounter for routine gynecological examination noneactive BMI 39.0-39.9,adult acute Climacteric acute GERD (gastroesophageal reflux disease) acute Other obesity acute [facility] Work Phone: evaluation note* Diagnosis Onset Date Resolution Status Climacteric acute GERD (gastroesophageal reflux disease) acute Other obesity acute Other obesity acute BMI 37.0-37.9, adult acute GERD (gastroesophageal reflux disease) acute Other obesity acute [facility] Work Phone: Evaluation note* Diagnosis Other elevated white blood cell (WBC) count- Primary CML (chronic myelocytic leukemia) (HCC) Chronic myeloid leukemia, without mention of having achieved remission [facility] Diagnosis Onset Date Resolution Status Other obesity acute BMI 37.0-37.9, adult acute GERD (gastroesophageal reflux disease) acute Other obesity acute BMI 37.0-37.9, adult acute GERD (gastroesophageal reflux disease) acute Hypercholesterolemia acute Other obesity acute [facility] Work Phone: evaluation note* Diagnosis CML (chronic myelocytic leukemia) (HCC)- Primary Chronic myeloid leukemia, without mention of having achieved remission Other elevated white blood cell (WBC) count [facility]* Diagnosis Bandemia- Primary [facility]* Diagnosis Bandemia- Primary [facility]* Diagnosis Bandemia- Primary [facility] Diagnosis CML (chronic myelocytic leukemia) (HCC)- Primary Chronic myeloid leukemia, without mention of having achieved remission [facility]* Diagnosis Acute cough- Primary Impacted cerumen, left ear Hearing loss due to cerumen impaction, left [facility]* Diagnosis CML (chronic myelocytic leukemia) (HCC)- Primary Chronic myeloid leukemia, without mention of having achieved remission Acquired hypothyroidism Unspecified hypothyroidism Iron deficiency anemia, unspecified iron deficiency anemia type [facility]* Diagnosis Encounter for monitoring cardiotoxic drug therapy- Primary Encounter for therapeutic drug monitoring CML (chronic myeloid leukemia) (HCC) Chronic myeloid leukemia, without mention of having achieved remission [facility]* Diagnosis Onset Date Resolution Status Breast mass, right acute [facility] Work Phone: Evaluation note* Diagnosis CML (chronic myelocytic leukemia) (HCC)- Primary Chronic myeloid leukemia, without mention of having achieved remission [facility] Diagnosis Acquired hypothyroidism Unspecified hypothyroidism Iron deficiency anemia, unspecified iron deficiency anemia type CML (chronic myelocytic leukemia) (HCC) Chronic myeloid leukemia, without mention of having achieved remission [facility] Diagnosis CML (chronic myelocytic leukemia) (HCC)- Primary Chronic myeloid leukemia, without mention of having achieved remission Dyspnea and respiratory abnormalities Other dyspnea and respiratory abnormality Gastroesophageal reflux disease, unspecified whether esophagitis present [facility] Diagnosis CML (chronic myelocytic leukemia) (HCC) Chronic myeloid leukemia, without mention of having achieved remission Dyspnea and respiratory abnormalities Other dyspnea and respiratory abnormality [facility] Diagnosis CML (chronic myelocytic leukemia) (HCC) Chronic myeloid leukemia, without mention of having achieved remission [facility] Diagnosis URI, acute- Primary Acute upper respiratory infections of unspecified site [facility] Diagnosis Onset Date Resolution Status Climacteric acute [id number] acute [facility] Work Phone: Evaluation note* Diagnosis CML (chronic myelocytic leukemia) (HCC)- Primary Chronic myeloid leukemia, without mention of having achieved remission [facility] Diagnosis CML (chronic myelocytic leukemia) (HCC) Chronic myeloid leukemia, without mention of having achieved remission [facility] Diagnosis CML (chronic myelocytic leukemia) (HCC)- Primary Chronic myeloid leukemia, without mention of having achieved remission [facility] Diagnosis CML (chronic myelocytic leukemia) (HCC)- Primary Chronic myeloid leukemia, without mention of having achieved remission Iron deficiency anemia secondary to inadequate dietary iron intake [facility] Diagnosis CML (chronic myelocytic leukemia) (HCC) Chronic myeloid leukemia, without mention of having achieved remission [facility] Diagnosis Acute cough [facility] Diagnosis CML (chronic myelocytic leukemia) (HCC)- Primary Chronic myeloid leukemia, without mention of having achieved remission [facility] Diagnosis CML (chronic myelocytic leukemia) (HCC) Chronic myeloid leukemia, without mention of having achieved remission [facility] Diagnosis CML (chronic myelocytic leukemia) (HCC)- Primary Chronic myeloid leukemia, without mention of having achieved remission History of iron deficiency Personal history of diseases of blood and blood-forming organs Gastroesophageal reflux disease, unspecified whether esophagitis present [facility] Diagnosis CML (chronic myelocytic leukemia) (HCC)- Primary Chronic myeloid leukemia, without mention of having achieved remission [facility] Diagnosis CML (chronic myelocytic leukemia) (HCC)- Primary Chronic myeloid leukemia, without mention of having achieved remission [facility] Diagnosis Acute bilateral low back pain with right-sided sciatica- Primary CML (chronic myelocytic leukemia) (HCC) Chronic myeloid leukemia, without mention of having achieved remission [facility]* Diagnosis Spinal stenosis of lumbar region, unspecified whether neurogenic claudication present- Primary [facility] CML (chronic myelocytic leukemia) (HCC)- Primary Chronic myeloid leukemia, without mention of having achieved remission Gastroesophageal reflux disease, unspecified whether esophagitis present Sciatica, right side [facility] Diagnosis CML (chronic myelocytic leukemia) (HCC)- Primary Chronic myeloid leukemia, without mention of having achieved remission [facility] Diagnosis CML (chronic myelocytic leukemia) (HCC)- Primary Chronic myeloid leukemia, without mention of having achieved remission [facility] Outpatient Procedure (Routine) - Pending Review Specialty Diagnoses / Procedures Referred By Contac t Referred To [facility] Diagnoses CML (chronic myeloid leukemia) (HCC) Encounter for monitoring cardiotoxic drug therapy Procedures ECHO ECHO TTHRC R-T 2D W/WOM-MODE COMPL SPEC&COLR D Fabiano Liz, [address] [place] [address] [facility] [place] [address] [place] [address] Referral ID Status Reason Start Date Expiration Date Visits Requested Visits Authorized [id number] Pending Review Auto-Generat ed Referral 10/24/2022 10/24/2023 1 1 [facility] for referral (narrative)* Outpatient Procedure (Routine) - Closed Specialty Diagnoses / Procedures Referred By Goldieac t Referred To Contact [facility] Diagnoses CML (chronic myelocytic leukemia) (HCC) Procedures ECHO ECHO TTHRC R-T 2D W/WOM-MODE COMPL SPEC&COLR D Fabiano Liz, DO [address] [place] [address] [facility] [place] [address] [place] [id number] Referral ID Status Reason Start Date Expiration Date V isits Requested Visits Authorized [id number] Closed Auto-Generate d Referral 04/26/2023 03/24/2024 1 1 * Outpatient Procedure (Routine) - Closed Specialty Diagnoses / Procedures [facility] To [facility] Diagnoses CML (chronic myelocytic leukemia) (HCC) Dyspnea and respiratory abnormalities Procedures ECG COMPLETE ECG ROUTINE ECG W/LEAST 12 LDS W/I&R Fabiano Liz DO [address] [place] [address] [facility] [place] [address] [place] [id number] Referral ID Status Reason Start Date Expiration Date V isits Requested Visits Authorized [id number] Closed Auto-Generate d Referral 04/26/2023 04/25/2024 1 1 [facility] for referral (narrative)* Diagnostic Procedure Only (Routine) - Closed Specialty Diagnoses / Procedures [facility] Referred To Contact [facility] Diagnoses CML (chronic myelocytic leukemia) (HCC) Procedures XR FEMUR GENERAL 2V AP/LAT LEFT RADIOLOGIC EXAMINATION FEMUR MINIMUM 2 VIEWS Devika Brush APRN.SHOVEL LOG LOADER OPERATOR [address] [place] [address] [place] [id number] Referral ID Status Reason Start Date Expiration Date V isits Requested Visits Authorized [id number] Closed Auto-Generate d Referral 07/25/2023 08/23/2024 1 1 [facility]No reason for referral information [facility]WFort [facility] Work Phone: Reason for visit Narrative* Diagnostic Procedure Only (Routine) - Closed Specialty Diagnoses / Procedures Referred By Contac t Referred To Contact XR IMAGING Diagnoses CML (chronic myelocytic leukemia) (HCC) Procedures XR FEMUR GENERAL 2V AP/LAT LEFT RADIOLOGIC EXAMINATION FEMUR MINIMUM 2 VIEWS Devika Brush APRN.CNP [address] [place] [address] [place] [address] Referral ID Status Reason Start Date Expiration Date V isits Requested Visits Authorized [id number] Closed Auto-Generate d Referral 07/25/2023 08/23/2024 1 1 [facility] Family History No Family History Records Found Relationship Condition Age at Onset Recorded Date/T brad Not Specified Myocardial infarction Unknown Hypertension Unknown Disorder of thyroid Unknown father Coronary artery disease Unknown Diabetes mellitus Unknown Advance Directives No Advanced Directives Records Found Advance Directive Response Recorded Date/ Time Advance Directives No October 01 2:28pm Living Will Yes May 08 12:54pm Power of Power Line Lineman Yes May 08, 2019 12:54pm Advance Directive Response Recorded Date/ Time Advance Directives No October 01 1:28pm Living Will Yes May 08 11:54am Power of Power Line Lineman Yes May 08, 2019 11:54am Advance Directive Response Recorded Date/ Time Advance Directives No April 5:39pm Living Will Yes May 21 5:39pm Power of Power Line Lineman Yes May 21, 2022 5:39pm Advance Directive Response Recorded Date/ Time Living Will Yes October 30, 2023 10:59am Do you have a Healthcare Power of Power Line Lineman? 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) E ORDER 3 WK FU, weight loss Reason for Visit BMI 39.0-39.9,adult Climacteric Other obesity Encounter for routine gynecological examination BMI 39.0-39.9,adult Climacteric GERD (gastroesophageal reflux disease) Other obesity Chief Complaint LUMBAR SPONDY SCREENING 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) E ORDER 3 WK FU, weight loss obesity Reason for Visit BMI 39.0-39.9,adult Climacteric Other obesity Encounter for routine gynecological examination BMI 39.0-39.9,adult Climacteric GERD (gastroesophageal reflux disease) Other obesity Chief Complaint E ORDER 3 WK FU, weight loss obesity EKG weight check/BP/HR weight check/BP/HR 3 mo weight management check E ORDER Reason for Visit Climacteric GERD (gastroesophageal reflux disease) Other obesity Other obesity BMI 37.0-37.9, adult GERD (gastroesophageal reflux disease) Other obesity Chief Complaint weight check/BP/HR weight check/BP/HR 3 mo weight management check E ORDER 1 mo f/u weight management Reason for Visit Other obesity BMI 37.0-37.9, adult GERD (gastroesophageal reflux disease) Other obesity BMI 37.0-37.9, adult GERD (gastroesophageal reflux disease) Hypercholesterolemia Other obesity Chief Complaint CML, MONITOR CARIOTO XIC DRUG THERAPY Chief Complaint CML, MONITOR CARIOTO XIC DRUG THERAPY rt breast lump BREAST MASS, RIGHT Reason for Visit Breast mass, right Chief Complaint 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) CML Reason for Visit Climacteric [id number] Chief Complaint Admit Date 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) February 24, 2024 9 :00am Reason for Visit Admit Date Climacteric February 24, 2024 9 :00am Encounter for routine gynecological exam ination February 24, 2024 9:00am Chief Complaint Admit Date pain July 14, 2024 5:1 9pm Chief Complaint Admit Date pain July 14, 2024 5:1 9pm SPINAL STENOSIS August 10, 2024 4:02p m Chief Complaint Admit Date pain July 14, 2024 5:1 9pm SPINAL STENOSIS August 10, 2024 4:02p m LUMBAR SPINE August 20, 2024 7:45a m Summary Purpose Health Concerns Infection Onset Date Last Indicated Resolved Time Influenza 06/11/2023 06/11/2023 Additional Source Comments Goals (unrecognized section and content) Goals may be documented in a n alternate sectionGoals may be documented in an alternate sectionGoals may be documented in an alternate sectionGoals may be documented in an alternate sectionGoals may be documented in an alternate sectionGoals may be documented in an alternate sectionGoals may be documented in an alternate sectionGoals may be documented in an alternate sectionGoals may be documented in an alternate sectionGoals may be documented in an alternate sectionGoals may be documented in an alternate sectionGoals may be documented in an alternate sectionGoals may be documented in an alternate sectionGoals may be documented in an alternate sectionGoals may be documented in an alternate section INFORMATION SOURCE (unrecogn ized section and content) DATE CREATED AUTHOR 01/03/2022 [facility] DATE CREATED AUTHOR AUTHOR'S ORGANIZ ATION 10/27/2024 [facility] DATE CREATED AUTHOR AUTHOR'S ORGANIZ ATION 10/28/2024 [facility] Care Teams (unrecognized sec tion and content) Team Status: Active Member Role Status Dates Dr. Krystina Calle DO Primary Care Provider Active Team Status: Inactive Member Role Status Dates Dr. Krystina Calle DO Primary Care Provider, Referring P rovider Active Dr. Monie Mckeon MD Attending Provider Active Team Status: Active Member Role Status Dates Dr. Krystina Calle DO Primary Care Provider Active Dr. Reggie Winslow MD Attending Provider Active Team Status: Inactive Member Role Status Dates Dr. Krystina Calle DO Primary Care Provider Active Dr. Fabiano Liz DO Attending Provider, Referring Prov ider Active Team Status: Active Member Role Status Dates Dr. Krystina Calle DO Primary Care Provider Active Dr. Anabelle Peña MD Attending Provider Activ e Team Status: Inactive Member Role Status Dates Dr. Krystina Calle DO Primary Care Provide r, Attending Provider, Referring Provider Active Team Status: Inactive Member Role Status Dates Dr. Krystina Calle DO Primary Care Provider, Referring P rovider Active Mee Conroy GLOBAL MARKETING MANAGER, GLOBAL MARKETING MANAGER-C Attending Provider Active Team Status: Active Member Role Status Dates Dr. Krystina Calle DO Primary Care Provider Active Dr. Anabelle Peña MD Attending Provider Activ e Dr. Monie Mckeon MD Referring Provider Active Team Status: Inactive Member Role Status Dates Dr. Krystina Calle DO Primary Care Provider Active Dr. Monie Mckeon MD Attending Provider Active Fur Stretcher Relationship Specialty Start Date End Date Krystina Calle DO PCP - General Family Medicine 05/20/15 Fur Stretcher Relationship Specialty Start Date End Date Krystina Calle DO PCP - General Family Medicine 05/20/15 Fur Stretcher Relationship Specialty Start Date End Date Krystina Calle PCP - General Family Medicine 05/20/15 Fur Stretcher Relationship Specialty Start Date End Date Krystina CalleDO PCP - General Family Medicine 05/20/15 [address]on [address] [place] [address] ASSOCIATE PROFESSOR OF PHYSICS 07/25/22 Fur Stretcher Relationship Specialty Start Date End Date Krystina Calle DO PCP - General Family Medicine 05/20/15 Monie Mckeon [address] [place] [address] ASSOCIATE PROFESSOR OF PHYSICS 07/25/22 Fur Stretcher Relationship Specialty Start Date End Date Krystina Calle DO PCP - General Family Medicine 05/20/15 Monie Mckeon [address] [place] [address] ASSOCIATE PROFESSOR OF PHYSICS 07/25/22 Fur Stretcher Relationship Specialty Start Date End Date Krystina Calle DO PCP - General Family Medicine 05/20/15 [address] [facility] [place] [address] ASSOCIATE PROFESSOR OF PHYSICS 07/25/22 Fur Stretcher Relationship Specialty Start Date End Date Krystina Calle PCP - General Family Medicine 05/20/15 Monie Mckoen [address] [facility] [place] [address] ASSOCIATE PROFESSOR OF PHYSICS 07/25/22 Fur Stretcher Relationship Specialty Start Date End Date Krystina Calle PCP - General Family Medicine 05/20/15 Monie Mckeon [address] [facility] [place] [address] ASSOCIATE PROFESSOR OF PHYSICS 07/25/22 Ligia Mtz RN Specialty 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 Oncology 07/30/22 Fur Stretcher Relationship Specialty Start Date End Date Krystina Calle DO PCP - General Family Medicine 05/20/15 [address] [facility] [place] [address] ASSOCIATE PROFESSOR OF PHYSICS 07/25/22 Ligia Mtz RN Specialty 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 Oncology 07/30/22 Fur Stretcher Relationship Specialty Start Date End Date Krystina Calle PCP - General Family Medicine 05/20/15 Monie Mckeon [address] [facility] [place] [address] ASSOCIATE PROFESSOR OF PHYSICS 07/25/22 Ligia Mtz RN Specialty 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 Oncology 07/30/22 Fur Stretcher Relationship Specialty Start Date End Date CarlyleatulKrystina DO PCP - General Family Medicine 05/20/15 Monie Mckeon [address] [address] ASSOCIATE PROFESSOR OF PHYSICS 07/25/22 Ligia Mtz RN Specialty 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 Oncology 07/30/22 Fur Stretcher Relationship Specialty Start Date End Date LucKrystina DO PCP - General Family Medicine 05/20/15 Monie Mckeon [address] [id number] ASSOCIATE PROFESSOR OF PHYSICS 07/25/22 Ligia Mtz RN Specialty 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 Oncology 07/30/22 Fur Stretcher Relationship Specialty Start Date End Date Bisi Callea Aron PCP - General Family Medicine 05/20/15 Monie Mckeon [address] [id number] ASSOCIATE PROFESSOR OF PHYSICS 07/25/22 Ligia Mtz RN Specialty 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 Oncology 07/30/22 Fur Stretcher Relationship Specialty Start Date End Date LucKrystina DO PCP - General Family Medicine 05/20/15 Monie Mckeon [address] [address] ASSOCIATE PROFESSOR OF PHYSICS 07/25/22 Ligia Mtz RN Specialty 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 Oncology 07/30/22 Fur Stretcher Relationship Specialty Start Date End Date Krystina Calle DO PCP - General Family Medicine 05/20/15 Monie Mckeon [address] [facility], [place] [id number] ASSOCIATE PROFESSOR OF PHYSICS 07/25/22 Ligia Mtz RN Specialty 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 Oncology 07/30/22 Fur Stretcher Relationship Specialty Start Date End Date Krystina Calle DO PCP - General Family Medicine 05/20/[address] [place] [address], [place] [id number] ASSOCIATE PROFESSOR OF PHYSICS 07/25/22 Ligia Mtz RN Specialty 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 Oncology 07/30/22 Team Status: Inactive Member Role Status Dates Dr. Krystina Calle DO Primary Care Provider Active Mee Conroy GLOBAL MARKETING MANAGER, GLOBAL MARKETING MANAGER-C Attending Provider, Referring Provider Active Fur Stretcher Relationship Specialty Start Date End Date Krystina Calle DO PCP - General Family Medicine 05/20/15 [address]keon [address] [place] [address], [place] [id number] ASSOCIATE PROFESSOR OF PHYSICS 07/25/22 Ligia Mtz RN Specialty 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 Oncology 07/30/22 Fur Stretcher Relationship Specialty Start Date End Date Krystina Calle DO PCP - General Family Medicine 05/20/15 Monie Mckeon [address] [place] [address], [place] [id number] ASSOCIATE PROFESSOR OF PHYSICS 07/25/22 Ligia Mtz, RN Specialty 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 Oncology 07/30/22 Kasandra Jones LISW [address] [place] [address] Form Raiser Hematology/Oncology 01/24/23 Fur Stretcher Relationship Specialty Start Date End Date Luc Krystina A, PCP - General Family Medicine 05/20/15 Monie Mckeon [address] [facility] [place] [address] Automation Consultant 07/25/22 Ligia Mtz RN Specialty 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 Oncology 07/30/22 Kasandra Jones LISW [address] [place] [address] Form Raiser Hematology/Oncology 01/24/23 Fabiano Liz DO [address] [place] [address] Hematology/Oncology 04/26/23 Fur Stretcher Relationship Specialty Start Date End Date Krystina Calle PCP - General Family Medicine 05/20/15 Monie Mckeon [address] [facility] [place] [address] Automation Consultant 07/25/22 Ligia Mtz RN Specialty 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 Oncology 07/30/22 Kasandra Jones LISW [address] [place] [address] Form [employer]aiser Hematology/Oncology 01/24/23 Fabiano Liz DO [address] [place] [address] Hematology/Oncology 04/26/23 Fur Stretcher Relationship Specialty Start Date End Date Krystina Calle DO PCP - General Family Medicine 05/20/15 Monie Mckeon [address] [place] [address] Automation Consultant 07/25/22 Ligia Mtz, RN Specialty 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 Oncology 07/30/22 Kasandra Jones, WOUND CARE TECHNICIAN [address] [place] [address] Form [employer]aiser Hematology/Oncology 01/24/23 Fabiano Liz DO [address] [place] [address] Hematology/Oncology 04/26/23 Fur Stretcher Relationship Specialty Start Date End Date Krystina Calle DO PCP - General Family Medicine 05/20/15 Monie Mckeon [address] [facility] [place] [address] Automation Consultant 07/25/22 Ligia Mtz RN Specialty 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 Oncology 07/30/22 Kasandra Jones LISW [address] [place] [address] Form [employer]aiser Hematology/Oncology 01/24/23 Fabiano Liz DO [address] [place] [address] Hematology/Oncology 04/26/23 Fur Stretcher Relationship Specialty Start Date End Date Krystina Calle DO PCP - General Family Medicine 05/20/15 Monie Mckeon MD [address] [facility] [place] [address] Automation Consultant 07/25/22 Ligia Mtz, RN Specialty 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 Oncology 07/30/22 Kasandra Jones LISW [address] [place] [address] Form [employer] Hematology/Oncology 01/24/23 Fabiano Liz DO [address] [place] [place] [address] Hematology/Oncology 04/26/23 Fur Stretcher Relationship Specialty Start Date End Date LucKrystina DO PCP - General Family Medicine 05/20/15 Monie Mckeon MD [address] [facility] [place] [address] Automation Consultant 07/25/22 Ligia Mtz RN Specialty 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 Oncology 07/30/22 Kasandra Jnoes LISW [address] [place] [address] Form [employer]aiser Hematology/Oncology 01/24/23 Fabiano Liz DO [address] [place] [address] Hematology/Oncology 04/26/23 Fur Stretcher Relationship Specialty Start Date End Date LucKrystina DO PCP - General Family Medicine 05/20/15 Monie Mckeon MD [address] [facility] [place] [address] Automation Consultant 07/25/22 Ligia Mtz RN Specialty 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 Oncology 07/30/22 Kasandra Jones, ERNESTO [address] [place] [address] Form [employer] Hematology/Oncology 01/24/23 Fabiano Liz DO [address] [place] [address] Hematology/Oncology 04/26/23 Fur Stretcher Relationship Specialty Start Date End Date Krystina Calle PCP - General Family Medicine 05/20/15 Monie Mckeon MD [address] [place] [address] Automation Consultant 07/25/22 Ligia Mtz, WENDIE Specialty 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 Oncology 07/30/22 Kasandra Jones LISW [address] [place] [address] Form [employer] Hematology/Oncology 01/24/23 Fabiano Liz DO [address] [place] [address] Hematology/Oncology 04/26/23 Fur Stretcher Relationship Specialty Start Date End Date Krystina Calle PCP - General Family Medicine 05/20/15 Monie Mckeon MD [address] [place] [address] Automation Consultant 07/25/22 Ligia Mtz RN Specialty 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 Oncology 07/30/22 Kasandra Jones LISW [address] [place] [address] Form [employer]aiser Hematology/Oncology 01/24/23 Fabiano Liz DO [address] [place] [address] Hematology/Oncology 04/26/23 Fur Stretcher Relationship Specialty Start Date End Date CarlyleatulKrystina DO PCP - General Family Medicine 05/20/15 Monie Mckeon MD [address] [facility] [place] [address] Automation Consultant 07/25/22 Ligia Mtz, RN Specialty 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 Oncology 07/30/22 Kasandra Jones, WOUND CARE TECHNICIAN [address] [place] [address] Form [employer]aiser Hematology/Oncology 01/24/23 Fabiano Liz DO [address] [place] [address] Hematology/Oncology 04/26/23 Fur Stretcher Relationship Specialty Start Date End Date Krystina Calle DO PCP - General Family Medicine 05/20/15 Monie Mkceon MD [address] [facility] [place] [address] Automation Consultant 07/25/22 Ligia Mtz RN Specialty 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 Oncology 07/30/22 Kasandra Jones LISW [address] [place] [address] Form [employer]aiser Hematology/Oncology 01/24/23 Fabiano Liz DO [address] [place] [address] Hematology/Oncology 04/26/23 Fur Stretcher Relationship Specialty Start Date End Date Krystina Calle DO PCP - General Family Medicine 05/20/15 Monie Mckeon MD [address] [place] [address] Automation Consultant 07/25/22 Ligia Mtz RN Specialty 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 Oncology 07/30/22 Kasandra Jones, WOUND CARE TECHNICIAN [address] [place] [address] Form [employer]aiser Hematology/Oncology 01/24/23 Fabiano Liz DO [address] [place] [address] Hematology/Oncology 04/26/23 Fur Stretcher Relationship Specialty Start Date End Date CarlyleatulKrystina DO PCP - General Family Medicine 05/20/15 Monie Mckeon MD [address] [place] [address] Automation Consultant 07/25/22 Ligia Mtz RN Specialty 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 Oncology 07/30/22 Kasandra Jones, WOUND CARE TECHNICIAN [address] [place] [address] Form [facility]aiser Hematology/Oncology 01/24/23 Fabiano Liz DO [address] [place] [address] Hematology/Oncology 04/26/23 Fur Stretcher Relationship Specialty Start Date End Date Krystina Calle DO PCP - General Family Medicine 05/20/15 Monie Mckeon MD [address] [place] [address] Automation Consultant 07/25/22 Doup, Ligia, RN Specialty 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 Oncology 07/30/22 Fur Stretcher Relationship Specialty Start Date End Date Krystina Calle DO PCP - General Family Medicine 05/20/15 Monie Mckeon MD [address] [place] [address] Automation Consultant 07/25/22 Ligia Mtz RN Specialty 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 Oncology 07/30/22 Kasandra Jones, WOUND CARE TECHNICIAN [address] [place] [address] [employer] [facility] Hematology/Oncology 01/24/23 Fabiano Liz DO [address] [place] [address] Hematology/Oncology 04/26/23 Fur Stretcher Relationship Specialty Start Date End Date Krystina Calle DO PCP - General Family Medicine 05/20/15 Monie Mckeon MD [address] [place] [address] Automation Consultant 07/25/22 Ligia Mtz RN Specialty 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 Oncology 07/30/22 Kasandra Jones, WOUND CARE TECHNICIAN [address] [place] [address] [employer] [facility] Hematology/Oncology 01/24/23 Fabiano Liz DO [address] [place] [address] Hematology/Oncology 04/26/23 Fur Stretcher Relationship Specialty Start Date End Date Krystina Calle DO PCP - General Family Medicine 05/20/15 Monie Mckeon MD [address] [place] [address] Automation Consultant 07/25/22 Ligia Mtz RN Specialty 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 Oncology 07/30/22 Kasandra Jones, WOUND CARE TECHNICIAN [address] [place] [address] [employer] [facility] Hematology/Oncology 01/24/23 Fabiano Liz DO [address] [facility] [place] [address] Hematology/Oncology 04/26/23 Fur Stretcher Relationship Specialty Start Date End Date Krystina Calle DO PCP - General Family Medicine 05/20/15 Monie Mckeon MD [address] [place] [address] Automation Consultant 07/25/22 Ligia Mtz RN Specialty 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 Oncology 07/30/22 Kasandra Jones, WOUND CARE TECHNICIAN [address] [place] [address] [employer] [facility] Hematology/Oncology 01/24/23 Fabiano Liz DO [address] [facility] [address] [place] [address] Hematology/Oncology 04/26/23 Fur Stretcher Relationship Specialty Start Date End Date Krystina Calle DO PCP - General Family Medicine 05/20/15 Monie Mckeon MD [address] [place] [address] Automation Consultant 07/25/22 Ligia Mtz RN Specialty 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 Oncology 07/30/22 Kasandra Jones LISW [address] [place] [address] [employer] [facility] Hematology/Oncology 01/24/23 Fabiano Liz DO [address] [place] [address] Hematology/Oncology 04/26/23 Fur Stretcher Relationship Specialty Start Date End Date Krystina Calle DO PCP - General Family Medicine 05/20/15 Monie Mckeon MD [address] [facility] [place] [address] Automation Consultant 07/25/22 Ligia Mtz, WENDIE Specialty 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 Oncology 07/30/22 Kasandra Jones LISW [address] [place] [address] [employer] [facility] Hematology/Oncology 01/24/23 Fabiano Liz DO [address] [place] [address] Hematology/Oncology 04/26/23 Team Status: Inactive Member Role Status Dates Dr. Krystina Calle DO Primary Care Provider Active Start: February 24, 2024 End: February 24, 2024 Dr. Krystina Calle DO Referring Provider Active St art: February 24, 2024 End: February 24, 2024 Dr. Monie Mckeon MD Attending Provider Active Start: February 24, 2024 End: February 24, 2024 Team Status: Inactive Member Role Status Dates Dr. Krystina Calle DO Primary Care Provider Active Start: June 15, 2024 End: June 15, 2024 Dr. Fabiano Liz DO Attending Provider Active St art: June 15, 2024 End: June 15, 2024 Dr. Fabiano Liz DO Referring Provider Active St art: June 15, 2024 End: June 15, 2024 Team Status: Active Member Role Status Dates Dr. Krystina Calle DO Primary Care Provider Active Start: June 18, 2024 RORO VERDUGO Attending Provider Active Start: June 18, 2024 RORO VERDUGO Referring Provider Active Start: June 18, 2024 Team Status: Inactive Member Role Status Dates Dr. Krystina Calle DO Primary Care Provider Active Start: June 18, 2024 End: June 18, 2024 RORO VERDUGO Attending Provider Active Start: June 18, 2024 End: June 18, 2024 RORO VERDUGO Referring Provider Active Start: June 18, 2024 End: June 18, 2024 Fur Stretcher Relationship Specialty Start Date End Date Krystina Calle DO PCP - General Family Medicine 05/20/15 Monie Mckeon MD [address] [place] [id number] Automation Consultant 07/25/22 Ligia Mtz RN Specialty 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 Oncology 07/30/22 Kasandra Jones LISW [address] [place] [address] [employer] [facility] Hematology/Oncology 01/24/23 Fabiano Liz DO [address] [facility] [place] [id number] Hematology/Oncology 04/26/23 Team Status: Inactive Member Role Status Dates Dr. Krystina Calle DO Primary Care Provider Active Start: July 14, 2024 End: July 14, 2024 AZEB Love Attending Provider Active Star t: July 14, 2024 End: July 14, 2024 Team Status: Inactive Member Role Status Dates Dr. Krystina Calle DO Primary Care Provider Active Start: August 10, 2024 End: August 10, 2024 RORO VERDUGO Attending Provider Active Start: August 10, 2024 End: August 10, 2024 RORO VERDUGO Referring Provider Active Start: August 10, 2024 End: August 10, 2024 Team Status: Inactive Member Role Status Dates Dr. Krystina Calle DO Primary Care Provider Active Start: August 20, 2024 End: August 20, 2024 Dr. Krystina Calle DO Referring Provider Active St art: August 20, 2024 End: August 20, 2024 Dr. Dallas Rojas MD Attending Provider Active Start: August 20, 2024 End: August 20, 2024 Source Comments (unrecognize d section and content) In the event this informatio n is protected by the Federal Confidentiality of Alcohol and Drug Abuse Patient Records regulations: The Federal rules restrict any use of the information to criminally investigate or prosecute any alcohol or drug abuse patient.[facility] the event this information is protected by the Federal Confidentiality of Alcohol and Drug Abuse Patient Records regulations: The Federal rules restrict any use of the information to criminally investigate or prosecute any alcohol or drug abuse patient.[facility] HospitalIn the event this information is protected by the Federal Confidentiality of Alcohol and Drug Abuse Patient Records regulations: The Federal rules restrict any use of the information to criminally investigate or prosecute any alcohol or drug abuse patient.[facility] HospitalIn the event this information is protected by the Federal Confidentiality of Alcohol and Drug Abuse Patient Records regulations: The Federal rules restrict any use of the information to criminally investigate or prosecute any alcohol or drug abuse patient.[facility] HospitalIn the event this information is protected by the Federal Confidentiality of Alcohol and Drug Abuse Patient Records regulations: The Federal rules restrict any use of the information to criminally investigate or prosecute any alcohol or drug abuse patient.[facility] HospitalIn the event this information is protected by the Federal Confidentiality of Alcohol and Drug Abuse Patient Records regulations: The Federal rules restrict any use of the information to criminally investigate or prosecute any alcohol or drug abuse patient.[facility] HospitalIn the event this information is protected by the Federal Confidentiality of Alcohol and Drug Abuse Patient Records regulations: The Federal rules restrict any use of the information to criminally investigate or prosecute any alcohol or drug abuse patient.[facility] HospitalIn the event this information is protected by the Federal Confidentiality of Alcohol and Drug Abuse Patient Records regulations: The Federal rules restrict any use of the information to criminally investigate or prosecute any alcohol or drug abuse patient.[facility] HospitalIn the event this information is protected by the Federal Confidentiality of Alcohol and Drug Abuse Patient Records regulations: The Federal rules restrict any use of the information to criminally investigate or prosecute any alcohol or drug abuse patient.[facility] HospitalIn the event this information is protected by the Federal Confidentiality of Alcohol and Drug Abuse Patient Records regulations: The Federal rules restrict any use of the information to criminally investigate or prosecute any alcohol or drug abuse patient.[facility] HospitalIn the event this information is protected by the Federal Confidentiality of Alcohol and Drug Abuse Patient Records regulations: The Federal rules restrict any use of the information to criminally investigate or prosecute any alcohol or drug abuse patient.[facility] HospitalIn the event this information is protected by the Federal Confidentiality of Alcohol and Drug Abuse Patient Records regulations: The Federal rules restrict any use of the information to criminally investigate or prosecute any alcohol or drug abuse patient.[facility] HospitalIn the event this information is protected by the Federal Confidentiality of Alcohol and Drug Abuse Patient Records regulations: The Federal rules restrict any use of the information to criminally investigate or prosecute any alcohol or drug abuse patient.[facility] HospitalIn the event this information is protected by the Federal Confidentiality of Alcohol and Drug Abuse Patient Records regulations: The Federal rules restrict any use of the information to criminally investigate or prosecute any alcohol or drug abuse patient.[facility] HospitalIn the event this information is protected by the Federal Confidentiality of Alcohol and Drug Abuse Patient Records regulations: The Federal rules restrict any use of the information to criminally investigate or prosecute any alcohol or drug abuse patient.[facility] HospitalIn the event this information is protected by the Federal Confidentiality of Alcohol and Drug Abuse Patient Records regulations: The Federal rules restrict any use of the information to criminally investigate or prosecute any alcohol or drug abuse patient.[facility] HospitalIn the event this information is protected by the Federal Confidentiality of Alcohol and Drug Abuse Patient Records regulations: The Federal rules restrict any use of the information to criminally investigate or prosecute any alcohol or drug abuse patient.[facility] HospitalIn the event this information is protected by the Federal Confidentiality of Alcohol and Drug Abuse Patient Records regulations: The Federal rules restrict any use of the information to criminally investigate or prosecute any alcohol or drug abuse patient.[facility] HospitalIn the event this information is protected by the Federal Confidentiality of Alcohol and Drug Abuse Patient Records regulations: The Federal rules restrict any use of the information to criminally investigate or prosecute any alcohol or drug abuse patient.[facility] HospitalIn the event this information is protected by the Federal Confidentiality of Alcohol and Drug Abuse Patient Records regulations: The Federal rules restrict any use of the information to criminally investigate or prosecute any alcohol or drug abuse patient.[facility] HospitalIn the event this information is protected by the Federal Confidentiality of Alcohol and Drug Abuse Patient Records regulations: The Federal rules restrict any use of the information to criminally investigate or prosecute any alcohol or drug abuse patient.[facility] HospitalIn the event this information is protected by the Federal Confidentiality of Alcohol and Drug Abuse Patient Records regulations: The Federal rules restrict any use of the information to criminally investigate or prosecute any alcohol or drug abuse patient.[facility] HospitalIn the event this information is protected by the Federal Confidentiality of Alcohol and Drug Abuse Patient Records regulations: The Federal rules restrict any use of the information to criminally investigate or prosecute any alcohol or drug abuse patient.[facility] HospitalIn the event this information is protected by the Federal Confidentiality of Alcohol and Drug Abuse Patient Records regulations: The Federal rules restrict any use of the information to criminally investigate or prosecute any alcohol or drug abuse patient.[facility] HospitalIn the event this information is protected by the Federal Confidentiality of Alcohol and Drug Abuse Patient Records regulations: The Federal rules restrict any use of the information to criminally investigate or prosecute any alcohol or drug abuse patient.[facility] HospitalIn the event this information is protected by the Federal Confidentiality of Alcohol and Drug Abuse Patient Records regulations: The Federal rules restrict any use of the information to criminally investigate or prosecute any alcohol or drug abuse patient.[facility] HospitalIn the event this information is protected by the Federal Confidentiality of Alcohol and Drug Abuse Patient Records regulations: The Federal rules restrict any use of the information to criminally investigate or prosecute any alcohol or drug abuse patient.[facility] HospitalIn the event this information is protected by the Federal Confidentiality of Alcohol and Drug Abuse Patient Records regulations: The Federal rules restrict any use of the information to criminally investigate or prosecute any alcohol or drug abuse patient.[facility] HospitalIn the event this information is protected by the Federal Confidentiality of Alcohol and Drug Abuse Patient Records regulations: The Federal rules restrict any use of the information to criminally investigate or prosecute any alcohol or drug abuse patient.[facility] HospitalIn the event this information is protected by the Federal Confidentiality of Alcohol and Drug Abuse Patient Records regulations: The Federal rules restrict any use of the information to criminally investigate or prosecute any alcohol or drug abuse patient.[facility]In the event this information is protected by the Federal Confidentiality of Alcohol and Drug Abuse Patient Records regulations: The Federal rules restrict any use of the information to criminally investigate or prosecute any alcohol or drug abuse patient.[facility] HospitalIn the event this information is protected by the Federal Confidentiality of Alcohol and Drug Abuse Patient Records regulations: The Federal rules restrict any use of the information to criminally investigate or prosecute any alcohol or drug abuse patient.[facility] HospitalIn the event this information is protected by the Federal Confidentiality of Alcohol and Drug Abuse Patient Records regulations: The Federal rules restrict any use of the information to criminally investigate or prosecute any alcohol or drug abuse patient.[facility] HospitalIn the event this information is protected by the Federal Confidentiality of Alcohol and Drug Abuse Patient Records regulations: The Federal rules restrict any use of the information to criminally investigate or prosecute any alcohol or drug abuse patient.[facility] HospitalIn the event this information is protected by the Federal Confidentiality of Alcohol and Drug Abuse Patient Records regulations: The Federal rules restrict any use of the information to criminally investigate or prosecute any alcohol or drug abuse patient.[facility] HospitalIn the event this information is protected by the Federal Confidentiality of Alcohol and Drug Abuse Patient Records regulations: The Federal rules restrict any use of the information to criminally investigate or prosecute any alcohol or drug abuse patient.[facility] HospitalIn the event this information is protected by the Federal Confidentiality of Alcohol and Drug Abuse Patient Records regulations: The Federal rules restrict any use of the information to criminally investigate or prosecute any alcohol or drug abuse patient.[facility] HospitalIn the event this information is protected by the Federal Confidentiality of Alcohol and Drug Abuse Patient Records regulations: The Federal rules restrict any use of the information to criminally investigate or prosecute any alcohol or drug abuse patient.[facility] HospitalIn the event this information is protected by the Federal Confidentiality of Alcohol and Drug Abuse Patient Records regulations: The Federal rules restrict any use of the information to criminally investigate or prosecute any alcohol or drug abuse patient.[facility] HospitalIn the event this information is protected by the Federal Confidentiality of Alcohol and Drug Abuse Patient Records regulations: The Federal rules restrict any use of the information to criminally investigate or prosecute any alcohol or drug abuse patient.[facility] HospitalIn the event this information is protected by the Federal Confidentiality of Alcohol and Drug Abuse Patient Records regulations: The Federal rules restrict any use of the information to criminally investigate or prosecute any alcohol or drug abuse patient.[facility] HospitalIn the event this information is protected by the Federal Confidentiality of Alcohol and Drug Abuse Patient Records regulations: The Federal rules restrict any use of the information to criminally investigate or prosecute any alcohol or drug abuse patient.[facility] HospitalIn the event this information is protected by the Federal Confidentiality of Alcohol and Drug Abuse Patient Records regulations: The Federal rules restrict any use of the information to criminally investigate or prosecute any alcohol or drug abuse patient.[facility] HospitalIn the event this information is protected by the Federal Confidentiality of Alcohol and Drug Abuse Patient Records regulations: The Federal rules restrict any use of the information to criminally investigate or prosecute any alcohol or drug abuse patient.[facility] HospitalIn the event this information is protected by the Federal Confidentiality of Alcohol and Drug Abuse Patient Records regulations: The Federal rules restrict any use of the information to criminally investigate or prosecute any alcohol or drug abuse patient.[facility] HospitalIn the event this information is protected by the Federal Confidentiality of Alcohol and Drug Abuse Patient Records regulations: The Federal rules restrict any use of the information to criminally investigate or prosecute any alcohol or drug abuse patient.[facility] HospitalIn the event this information is protected by the Federal Confidentiality of Alcohol and Drug Abuse Patient Records regulations: The Federal rules restrict any use of the information to criminally investigate or prosecute any alcohol or drug abuse patient.[facility] HospitalIn the event this information is protected by the Federal Confidentiality of Alcohol and Drug Abuse Patient Records regulations: The Federal rules restrict any use of the information to criminally investigate or prosecute any alcohol or drug abuse patient.[facility] HospitalIn the event this information is protected by the Federal Confidentiality of Alcohol and Drug Abuse Patient Records regulations: The Federal rules restrict any use of the information to criminally investigate or prosecute any alcohol or drug abuse patient.[facility] HospitalIn the event this information is protected by the Federal Confidentiality of Alcohol and Drug Abuse Patient Records regulations: The Federal rules restrict any use of the information to criminally investigate or prosecute any alcohol or drug abuse patient.[facility] HospitalIn the event this information is protected by the Federal Confidentiality of Alcohol and Drug Abuse Patient Records regulations: The Federal rules restrict any use of the information to criminally investigate or prosecute any alcohol or drug abuse patient.[facility] HospitalIn the event this information is protected by the Federal Confidentiality of Alcohol and Drug Abuse Patient Records regulations: The Federal rules restrict any use of the information to criminally investigate or prosecute any alcohol or drug abuse patient.[facility] HospitalIn the event this information is protected by the Federal Confidentiality of Alcohol and Drug Abuse Patient Records regulations: The Federal rules restrict any use of the information to criminally investigate or prosecute any alcohol or drug abuse patient.[facility] HospitalIn the event this information is protected by the Federal Confidentiality of Alcohol and Drug Abuse Patient Records regulations: The Federal rules restrict any use of the information to criminally investigate or prosecute any alcohol or drug abuse patient.[facility] HospitalIn the event this information is protected by the Federal Confidentiality of Alcohol and Drug Abuse Patient Records regulations: The Federal rules restrict any use of the information to criminally investigate or prosecute any alcohol or drug abuse patient.[facility] HospitalIn the event this information is protected by the Federal Confidentiality of Alcohol and Drug Abuse Patient Records regulations: The Federal rules restrict any use of the information to criminally investigate or prosecute any alcohol or drug abuse patient.[facility] HospitalIn the event this information is protected by the Federal Confidentiality of Alcohol and Drug Abuse Patient Records regulations: The Federal rules restrict any use of the information to criminally investigate or prosecute any alcohol or drug abuse patient.[facility] HospitalIn the event this information is protected by the Federal Confidentiality of Alcohol and Drug Abuse Patient Records regulations: The Federal rules restrict any use of the information to criminally investigate or prosecute any alcohol or drug abuse patient.[facility] HospitalIn the event this information is protected by the Federal Confidentiality of Alcohol and Drug Abuse Patient Records regulations: The Federal rules restrict any use of the information to criminally investigate or prosecute any alcohol or drug abuse patient.[facility] Reason for Visit (unrecogniz ed section and content) Reason Comments Results High uric acid Reason Comments New Patient Evaluation Specialty Diagnoses / Procedures Referred By Freedom roman Referred To Contact Hematology/Oncology / HEMATOLOGY/ONCOLOGY 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.LISA CALLE* Procedures NEW PATIENT Fabiano Liz, DO [address] [place] [address] Fabiano Liz, DO [address] [place] [address] Referral ID Status Reason Start Date Expiration Date V isits Requested Visits Authorized [id number] Pending Review 07/25/2022 10/23/2022 1 1 Reason Comments urgent results Reason Comments Results Blood PCR testing Reason Onset Date Comments SPP Oral Oncology/hematology - Treatment Referra l 07/26/2022 Bosulif Insurance Authorization 07/26/2022 AZEB villanueva Reason Comments Bone Marrow Aspirate/Biopsy Reason Onset Date Comments Refill Request 08/02/2022 Reason Comments 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 - Other Oral Anti-Cance r Agents Follow-up (Bosutinib) Reason Comments Chest Congestion cough x 8 days Reason Comments 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 - Other Follow-up Reason Comments Results Reason Comments Established Patient Reason Comments Results CXR Reason Onset Date Comments Refill Request 12/28/2022 Reason Comments Established Patient Specialty Diagnoses / Procedures Referred By Contac t Referred To [facility] Diagnoses CML (chronic myelocytic leukemia) (HCC) Procedures ECHO ECHO TTHRC R-T 2D W/WOM-MODE COMPL SPEC&COLR D Fabiano Liz, DO [address] [place] [address] [facility] [place] [address] [facility] [place] [address] Referral ID Status Reason Start Date Expiration Date V isits Requested Visits Authorized [id number] Closed Auto-Generate d Referral 04/26/2023 03/24/2024 1 1 Reason Comments medication PA Reason Comments Chest Congestion cough, sob and fever x 2 days Reason Comments Refill Request Reason Comments Established Patient Reason Comments Orders Reason Onset Date Comments Refill Request 03/31/2024 Reason Onset Date Comments SPP Oral Oncology/hematology - Treatment Referra l 04/28/2024 Scemblix 40 mg Reason Onset Date Comments Refill Request 05/13/2024 Reason Comments 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 - Other Oral Anti-Cance r Agents Education (asciminib) Reason Comments 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 - Other Oral Anti-Cance r Agents Follow-up Reason Comments Medication Problem Reason Onset Date Comments SPP Oral Oncology/hematology - Medication Refill 09/30/2024 Scemblix Reason Onset Date Comments [facility]PP Oral Oncology/hematology - Medication Refill 10/26/2024 Scemblix FOR RECORDS PERTAINING TO PATIENTS WHO ARE OR HAVE BEEN ENROLLED IN A CHEMICAL DEPENDENCY/SUBSTANCEABUSE PROGRAM, SOME INFORMATION MAY BE OMITTED. This clinical summary was aggregated from multiple sources. Caution should be exercised in using it in the provision of clinical care. This summary normalizes information from multiple sources, and as a consequence, information in this document may materially change the coding, format and clinical context of patient data. In addition, data may be omitted in some cases. CLINICAL DECISIONS SHOULD BE BASED ON THE PRIMARY CLINICAL RECORDS. [employer] provides no warranty or guarantee of the accuracy or completeness of information in this document.
--- OUTSIDE RECORDS SUMMARY | 2024-10-29 08:42 | XMS RPT_ITS | CCD ---
Author Organization [facility] Care Team Providers Care Med Surg Rn Name Role Phone EMPLOYEE, HEALTH Attending Unavailable MISC, DOCTOR Primary Care Unavailable EMPLOYEE, HEALTH Attending Unavailable MISC, DOCTOR Primary Care Unavailable Dr. Krystina Calle Primary Care Provider Dr. Krystina Calle Referring Provider [phone] Monie Mckeon Attending Provider Dr. Krystina Calle Primary Care Provider Dr. Krystina Calle Referring Provider Dr. Monie Mckeon Attending Provider Dr. Anabelle Peña Attending Provider Dr. Monie Mckeon Referring Provider Marycarmen WELFARE VISITOR, WELFARE VISITOR-C Mee Attending Provider Krystina Calle DO Primary Care Provider [phone] Dr. Krystina Calle Primary Care Provider Dr. Krystina Calle Referring Provider [phone] Monie Mckeon Attending Provider Monie Mckeon Unavailable Bibi RN, Ligia Unavailable Unavailable Dr. Krystina Calle Primary Care Provider Dr. Anabelle Peña Attending Provider Bibi RN, Ligia Unavailable Unavailable Dr. Krystina Calle Referring Provider [phone] Marycarmen WELFARE VISITOR, WELFARE VISITORChinmay Caban Attending Provider Kasandra Rg Unavailable Unavailabl e Malys DO, Krystina A Primary Care Provider Erichi Fabiano HART Unavailable Luc, Dr. Flaherty Primary Care Provider Dr. Krystina Calle Referring Provider 1([facility])[phone] Monie Mckeon Attending Provider [facility] Attending Provider Malys DO, Krystina Sharp Primary Care Provider Monie Mckeon MD Unavailable Luc HART, Dr. Flaherty Primary Care Provider 1([facility])[phone] Luc HART, Dr. Flaherty Referring Provider 1([facility])[phone] Dr. Monie Mckeon MD Attending Provider Masci , Dr. Mario Attending Provider Masci DO, Dr. Mario Referring Provider ESHA READ Attending Provider ESHA READ Referring Provider Dr. Krystina Calle DO Primary Care Provider 1([facility])[phone] Mireya Ashton Attending Provider ESHA READ Attending Provider 1([facility])[phone] ESHA READ Referring Provider 1([facility])[phone] Luc HART, Dr. Flaherty Referring Provider [phone] Dallas Rojas MD Attending Provider Malys, [...] Primary Care Unavailable Malys, Krystina Referring Unavailable Dallas Rojas Attending Unavailable Malys, [...] Translations: [nalbuphine HCl] Drug Allergy 6 Vomiting [facility] (20 sources) Iodinated Contrast Media; Translations: [Iodinated Contrast Media] Allergy to substance 2 Hives, Swelling [facility] Medications Current Medications Medication Drug Class(es) [...] Comment on above: Take 1 tablet by [facility] once daily. asciminib (SCEMBLIX) 40 mg tablet (17 sources) Start: 09-29-2024 take 2 tablets by mouth once daily asciminib (SCEMBLIX) 40 mg tablet Take 2 tablets (80 mg) by mouth once daily on an empty stomach, 1 hour before or 2 hours after eating 60 tablet 5 10/01/2024 11:14 AM EDT 09/29/2024 Active Start: 09-29-2024 take 2 tablets by [facility] once daily asciminib (SCEMBLIX) 40 mg tablet Take 2 tablets (80 mg) by mouth once daily on an empty stomach, 1 hour before or 2 hours after eating 60 tablet 5 09/29/2024 Active Start: 06-08-2024 take 2 tablets by mo [facility] once daily asciminib (SCEMBLIX) 40 mg [...] Comment on above: Take 1 tablet by [facility] one time only for 1 [...] extended release 50 mg. discussed calorie restriction [phone] mahi when in her eating window. use [employer] for tracking. nutrition consult Other nutritional; endocrine; and metabolic disorders (13 sources) Body mass index 30+ - obesity; Translations: [Body mass index (BMI) 39.0-39.9, adult] 05-21-2022 Chronic Comment on above: discussed calorie re striction during fasting window- [phone] mahi depending on activity Other nutritional; endocrine; [...] CR BLOODon 10-12-2024 BCR/ABL1 P190 INTERPRETATION Normal [facility] Comment on above: Order Comment: Speci men Type: BLOOD SPECIMEN Ordering Facility: [facility] Address: [address] [place] [address] Result Comment: BCR/ ABL1 p190 Quantitative PCR Laboratory Accession Number: [id number] Result: UNDETECTED NCN: N/A Interpretation: p190 BCR/ABL1 [...] this sample, and cDNA prepared by reverse dry folder cloth. Real time PCR was performed using primers for e1a2 BCR/ABL1 fusion transcripts and ABL1 transcripts (qPCR BCR/ABL minor, [employer], [place], [place]). This test does not detect p210 (e13a2 or e14a2) or other rare BCR/ABL1 transcripts. This assay has a limit of quantification of 0.0036% (LR4.4) and limit of detection of 0.0025% (LR4.6). Disclaimer: This test was developed and its performance characteristics determined by [facility]'s Pathology and Laboratory Medicine Department. It has not been cleared or approved by the FDA. [facility]'s Pathology and Laboratory Medicine Department is regulated under CLIA as certified to perform high-complexity testing. This test is used for clinical purposes. It should not be regarded as investigational or for research. Test performed at [facility], [address] [place] [address]. CLIA Number: [id number] Interpretation performed by Jessica Bennett, PhD, [facility] Performed By: #### 2 4323-8 #### [facility] CLIA [id number] [address] [place] [address] [place] BCR/ABL1 H266GAT BLOOD( AND BCR/ABL1:ABL1)on 10-12-2024 BCR/ABL1 P190 NCN(%BCR/ABL1:ABL1) N/A Normal [facility] Comment on above: Order Comment: Speci men Type: BLOOD SPECIMENOrdering Facility: [facility] Address: [address] [place] [address] Performed By: #### P 210P, P190P ####[facility] LIMSCLIA [id number] [place] [address] [place]#### 190NCBP, 210ISBP ####[facility] LABCLIA [id number] [place] [address] [place] BCR/ABL1 P210 %IS PANELon BCR/ABL1 P210 %IS 0.003 Normal [facility] Comment on above: Order Comment: Speci men Type: BLOOD SPECIMENOrdering Facility: [facility] Address: [address] [place] [address] Performed By: #### P 210P, P190P ####[facility] LIMSCLIA [id number] [place] [address] [place]#### 190NCBP, 210ISBP ####[facility] LABCL[facility] [id number] [place] [address] [place] BCR/ABL1 P210 MR 4.53 Normal [facility] Comment on above: Order Comment: Speci men Type: BLOOD SPECIMENOrdering Facility: [facility] Address: [address] [place] [address] Performed By: #### P 210P, P190P ####[facility] LIMSCLIA [id number] [place] [address] [place]#### 190NCBP, 210ISBP ####[facility] LABCL[facility] [id number] [place] [address] [place] BCR/ABL1 P210 QUANTITATIVE P CR BLOODon 10-12-2024 BCR/ABL1 P210 INTERPRETATION Normal [facility] Comment on above: Order Comment: Speci men Type: BLOOD SPECIMEN Ordering Facility: [facility] Address: [address] [place] [address] Result Comment: BCR/ ABL1 p210 Quantitative PCR Laboratory Accession Number: [id number] Result: DETECTED MR: 4.53 %IS: 0.003 Interpretation: p210 BCR/ABL1 transcripts were detected. Quantitative results are expressed on the International Scale (IS) and a log molecular response (MR) is calculated. On this scale, a value of less than or equal to 0.1% corresponds to a major molecular response (MMR or MR3.0). Methodology: The [employer] Quant[employer] BCR/ABL IS assay is an FDA-cleared [...] 2015;29:999-1003 Interpretation performed by Jessica Bennett, PhD, [facility] Performed By: #### 2 4323-8 #### [facility] CLIA [id number] [address] [place] [address] [place] CBC W Auto Differential pane l (Bld)on 10-12-2024 Basophils (Bld) [#/Vol] 0.06 10*3/uL Normal <0.11 [facility] Comment on above: Order Comment: Speci men Type: BLOOD SPECIMENOrdering Facility: [facility] Address: [address] [place] [address] Performed By: #### 5 7021-8 ####[facility]IT[facility]IA [id number] [place] [address] [place] Basophils/100 WBC (Bld) 0.6 % Normal [facility] Comment on above: Order Comment: Speci men Type: BLOOD SPECIMENOrdering Facility: [facility] Address: [address] [place] [address] Performed By: #### 5 7021-8 ####[facility] [id number] [place] [address] [place] Differential cell count method Nom (Bld) Auto Normal [facility] Comment on above: Order Comment: Speci men Type: BLOOD SPECIMENOrdering Facility: [facility] Address: [address] [place] [address] Performed By: #### 5 7021-8 ####[facility] [id number] [place] [address] [place] Eosinophils (Bld) [#/Vol] 0.18 10*3/uL Normal <0.46 [facility] Comment on above: Order Comment: Speci men Type: BLOOD SPECIMENOrdering Facility: [facility] Address: [address] [place] [address] Performed By: #### 5 7021-8 ####[facility] [id number] [place] [address] [place] Eosinophils/100 WBC (Bld) 1.8 % Normal [facility] Comment on above: Order Comment: Speci men Type: BLOOD SPECIMENOrdering Facility: [facility] Address: [address] [place] [address] Performed By: #### 5 7021-8 ####[facility] [id number] [place] [address] [place] Erythrocyte distribution width (RBC) [Ratio] 13.2 % Normal 11.5-15.0 [facility] Comment on above: Order Comment: Speci men Type: BLOOD SPECIMENOrdering Facility: [facility] Address: [address] [place] [address] Performed By: #### 5 7021-8 ####[facility] [id number] [place] [address] [place] Hematocrit (Bld) [Volume fraction] 39.8 % Normal 36.0-46.0 [facility] Comment on above: Order Comment: Speci men Type: BLOOD SPECIMENOrdering Facility: [facility] Address: [address] [place] [address] Performed By: #### 5 7021-8 ####[facility] [id number] [place] [address] [place] Hemoglobin (Bld) [Mass/Vol] 13.4 g/dL Normal 11.5-15.5 [facility] Comment on above: Order Comment: Speci men Type: BLOOD SPECIMENOrdering Facility: [facility] Address: [address] [place] [address] Performed By: #### 5 7021-8 ####[facility] [id number] [place] [address] [place] Immature granulocytes (Bld) [#/Vol] 0.06 10*3/uL Normal <0.10 [facility] Comment on above: Order Comment: Speci men Type: BLOOD SPECIMENOrdering Facility: [facility] Address: [address] [place] [address] Performed By: #### 5 7021-8 ####[facility] [id number] [place] [address] [place] Immature granulocytes/100 WBC (Bld) 0.6 % Normal [facility] Comment on above: Order Comment: Speci men Type: BLOOD SPECIMENOrdering Facility: [facility] Address: [address] [place] [address] Performed By: #### 5 7021-8 ####[facility] [id number] [place] [address] [place] Lymphocytes (Bld) [#/Vol] 1.85 10*3/uL Normal 1.00-4.00 [facility] Comment on above: Order Comment: Speci men Type: BLOOD SPECIMENOrdering Facility: [facility] Address: [address] [place] [address] Performed By: #### 5 7021-8 ####[facility] [id number] [place] [address] [place] Lymphocytes/100 WBC (Bld) 18.1 % Normal [facility] Comment on above: Order Comment: Speci men Type: BLOOD SPECIMENOrdering Facility: [facility] Address: [address] [place] [address] Performed By: #### 5 7021-8 ####[facility]NCLI [id number] [place] [address] [place] MCH (RBC) [Entitic mass] 26.8 pg Normal 26.0-34.0 [facility] Comment on above: Order Comment: Speci men Type: BLOOD SPECIMENOrdering Facility: [facility] Address: [address] [place] [address] Performed By: #### 5 7021-8 ####[facility] [id number] [place] [address] [place] MCHC (RBC) [Mass/Vol] 33.7 g/dL Normal 30.5-36.0 [facility] Comment on above: Order Comment: Speci men Type: BLOOD SPECIMENOrdering Facility: [facility] Address: [address] [place] [address] Performed By: #### 5 7021-8 ####[facility] DEEJAYMandyNCLETICIA [id number] [place] [address] [place] MCV (RBC) [Entitic vol] 79.6 fL Low 80.0-100.0 [facility] Comment on above: Order Comment: Speci men Type: BLOOD SPECIMENOrdering Facility: [facility] Address: [address] [place] [address] Performed By: #### 5 7021-8 ####[facility] MEMORIALNCAron [id number] [place] [address] [place] Monocytes (Bld) [#/Vol] 0.55 10*3/uL Normal <0.87 [facility] Comment on above: Order Comment: Speci men Type: BLOOD SPECIMENOrdering Facility: [facility] Address: [address] [place] [address] Performed By: #### 5 7021-8 ####[facility]IALNCL[facility] [id number] [place] [address] [place] Monocytes/100 WBC (Bld) 5.4 % Normal [facility] Comment on above: Order Comment: Speci men Type: BLOOD SPECIMENOrdering Facility: [facility] Address: [address] [place] [address] Performed By: #### 5 7021-8 ####[facility]IALNCLIA [id number] [place] [address] [place] Neutrophils (Bld) [#/Vol] 7.53 10*3/uL High 1.45-7.50 [facility] Comment on above: Order Comment: Speci men Type: BLOOD SPECIMENOrdering Facility: [facility] Address: [address] [place] [address] Performed By: #### 5 7021-8 ####[facility]ENWTINALIA [id number] [place] [address] [place] Neutrophils/100 WBC (Bld) 73.5 % Normal [facility] Comment on above: Order Comment: Speci men Type: BLOOD SPECIMENOrdering Facility: [facility] Address: [address] [place] [address] Performed By: #### 5 7021-8 ####[facility] [id number] [place] [address] [place] Nucleated RBC (Bld) [#/Vol] 10*3/uL Normal <0.01 [facility] Comment on above: Order Comment: Speci men Type: BLOOD SPECIMENOrdering Facility: [facility] Address: [address] [place] [address] Performed By: #### 5 7021-8 ####[facility] [id number] [place] [address] [place] Nucleated RBC/100 WBC (Bld) [Ratio] 0.0 /100 WBC Normal [facility] Comment on above: Order Comment: Speci men Type: BLOOD SPECIMENOrdering Facility: [facility] Address: [address] [place] [address] Performed By: #### 5 7021-8 ####[facility] [id number] [place] [address] [place] Platelet mean volume (Bld) [Entitic vol] 10.0 fL Normal 9.0-12.7 [facility] Comment on above: Order Comment: Speci men Type: BLOOD SPECIMENOrdering Facility: [facility] Address: [address] [place] [address] Performed By: #### 5 7021-8 ####[facility] [id number] [place] [address] [place] Platelets (Bld) [#/Vol] 254 10*3/uL Normal 150-400 [facility] Comment on above: Order Comment: Speci men Type: BLOOD SPECIMENOrdering Facility: [facility] Address: [address] [place] [address] Performed By: #### 5 7021-8 ####[facility]ORIALNCJOANA [id number] [place] [address] [place] RBC (Bld) [#/Vol] 5.00 10*6/uL Normal 3.90-5.20 [facility] Comment on above: Order Comment: Speci men Type: BLOOD SPECIMENOrdering Facility: [facility] Address: [address] [place] [address] Performed By: #### 5 7021-8 ####[facility] [id number] [place] [address] [place] WBC (Bld) [#/Vol] 10.23 10*3/uL Normal 3.70-11.00 [facility] Comment on above: Order Comment: Speci men Type: BLOOD SPECIMENOrdering Facility: [facility] Address: [address] [place] [address] Performed By: #### 5 7021-8 ####[facility] HOSPITALJOANA [id number] [place] [address] [place] Comprehensive metabolic 2000 panelon 10-12-2024 Albumin [Mass/Vol] 4.4 g/dL Normal 3.9-4.9 [facility] Comment on above: Order Comment: Speci men Type: BLOOD SPECIMEN Order[facility] Facility[facility] Address: [address] [place] [address] Performed By: #### 2 4323-8 #### [facility] CLIA [id number] [address] [place] [address] [place] ALP [Catalytic activity/Vol] 81 U/L Normal 34-123 [facility] Comment on above: Order Comment: Speci men Type: BLOOD SPECIMEN Ordering Facility: [facility] Address: [address] [place] [address] Performed By: #### 2 4323-8 #### [facility] CLIA [id number] [address] [place] [address] [place] ALT [Catalytic activity/Vol] 34 U/L Normal 7-38 [facility] Comment on above: Order Comment: Speci men Type: BLOOD SPECIMEN Ordering Facility: [facility] Address: [address] [place] [address] Performed By: #### 2 4323-8 #### [facility] CLIA [id number] [address] [place] [address] [place] Anion gap [Moles/Vol] 16 mmol/L High 8-15 [facility] Comment on above: Order Comment: Speci men Type: BLOOD SPECIMEN Order[facility] Facility: [facility] Address: [address] [place] [address] Performed By: #### 2 4323-8 #### [facility] CLIA [id number] [address] [place] [address] [place] AST [Catalytic activity/Vol] 14 U/L Normal 13-35 [facility] Comment on above: Order Comment: Speci men Type: BLOOD SPECIMEN Ordering Facility: [facility] Address: [address] [place] [address] Performed By: #### 2 4323-8 #### [facility] CLIA [id number] [address] [place] [address] [place] Bilirubin [Mass/Vol] 0.5 mg/dL Normal 0.2-1.3 [facility] Comment on above: Order Comment: Speci men Type: BLOOD SPECIMEN Ordering Facility: [facility] Address: [address] [place] [address] Performed By: #### 2 4323-8 #### [facility] MILLW CLIA [id number] [address] [place] [address] [place] Calcium [Mass/Vol] 9.0 mg/dL Normal 8.5-10.2 [facility] Comment on above: Order Comment: Speci men Type: BLOOD SPECIMEN Ordering Facility: [facility] Address: [address] [place] [address] Performed By: #### 2 4323-8 #### [facility] CLIA [id number] [address] [place] [address] [place] Chloride [Moles/Vol] 104 mmol/L Normal 98-107 [facility] Comment on above: Order Comment: Speci men Type: BLOOD SPECIMEN Ordering Facility: [facility] Address: [address] [place] [address] Performed By: #### 2 4323-8 #### [facility] CLIA [id number] [address] [place] [address] [place] CO2 [Moles/Vol] 21 mmol/L Low 22-30 [facility] Comment on above: Order Comment: Speci men Type: BLOOD SPECIMEN Ordering Facility: [facility] Address: [address] [place] [address] Performed By: #### 2 4323-8 #### [facility] CLIA [id number] [address] [place] [address] [place] Creatinine [Mass/Vol] 0.60 mg/dL Normal 0.58-0.96 [facility] Comment on above: Order Comment: Speci men Type: BLOOD SPECIMEN Order[facility] Facility[facility] Address: [address] [place] [address] Performed By: #### 2 4323-8 #### [facility] CLIA [id number] [address] [place] [address] [place] eGFRcr SerPlBld CKD-EPI 2020 112 mL/min/1.73m??? Normal >=60 [facility] Comment on above: Order Comment: Kaitlin shafer Type: BLOOD SPECIMEN Ordering Facility[facility] Address: [address] [place] [address] Result Comment: Antoinette mated Glomerular Filtration Rate [...] GFR. Performed By: #### 2 4323-8 #### [facility] [id number] [address] [place] [address] [place] Glucose [Mass/Vol] 116 mg/dL High 74-99 [facility] Comment on above: Order Comment: Kaitlin shafer Type: BLOOD SPECIMEN Ordering Facility[facility] Address: [address] [place] [address] Result Comment: The [place] [employer] (ADA) provides guidance for cutoff [...] Standards of Medical Care in Diabetes 2016, [place]. Diabetes Care. 2016.39(Suppl 1). Performed By: #### 2 4323-8 #### [facility] [id number] [address] [place] [address] [place] Potassium [Moles/Vol] 3.9 mmol/L Normal 3.7-5.1 [facility] Comment on above: Order Comment: Speci men Type: BLOOD SPECIMEN Ordering Facility: [facility] Address: [address] [place] [id number] Performed By: #### 2 4323-8 #### [facility] CLIA [id number] [address] [place] [address] [place] Protein [Mass/Vol] 6.8 g/dL Normal 6.3-8.0 [facility] Comment on above: Order Comment: Speci men Type: BLOOD SPECIMEN Ordering Facility: [facility] Address: [address] [place] [address] Performed By: #### 2 4323-8 #### [facility] CLIA [id number] [address] [place] [address] [place] Sodium [Moles/Vol] 141 mmol/L Normal 136-144 [facility] Comment on above: Order Comment: Speci men Type: BLOOD SPECIMEN Ordering Facility: [facility] Address: [address] [place] [address] Performed By: #### 2 4323-8 #### [facility] CLIA [id number] [address] [place] [address] [place] Urea nitrogen [Mass/Vol] 10 mg/dL Normal 7-21 [facility] Comment on above: Order Comment: Speci men Type: BLOOD SPECIMEN Ordering Facility: [facility] Address: [address] [place] [address] Performed By: #### 2 4323-8 #### [facility] CLIA [id number] [address] [place] [address] [place] CNPChristina 09-28-2024 [place]ON[place] Telephone (PATRICK) REMYLIBIA ([id number]) 1975 F Date Time Provider Department 09/28/24 FABIANO LIZ HEMMIRYAM During your visit today, we recorded the following information about you: Sona Carlos 09/28/2024 3:45 PM Signed Patient called stating she contacted [facility] to fill prescription Scemblix. She was informed that is not available. They do not know when they would get it in. Patient has 2 days left of medication. She states if we contact [facility] they will be able to transfer the prescription to another location. Patient says that will save her some money. Please advise patient. Alisha Romero LPN 09/28/2024 4:06 PM Signed I reached out to [facility] Pharmacy and to the patient. Transfers are pharmacy to pharmacy, therefore, [facility] will need to reach out to [facility] Pharm[facility] to initiate the transfer of the Rx. I contacted [facility] and a message will be given to the pharmacist to contact [facility] to transfer the Rx. Dr. Liz is [...] Status:Closed by ALISHA ROMERO on 09/29/24 Normal [facility] Orthopedic Visit Reporton Orthopedic Visit Report [facility] [address] [place] [address] OFFICE VISIT Date of Service: 08/20/24 MR#: [id number] Acct: [id number] Name: LIBIA OLIVAS FRIDA Rep #: [id number] : 1975 Provider: Dr. Dallas Rjoas MD Age/Sex: 49/F Location: [email or web address] Status: Signed Intake Vital Signs 02/24/24 09:07 [...] 02/24/24 08/20/24 Hi story tablet,extended release (Klor-Con) [facility] Medical History Wears glasses Wears [...] home: Yes additional 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: - Rodolfo [facility] ER NURSE HPI LUMBAR SPINE Details: This documentation accurately reflects the service provided and the decisions made by me, Dr. Dallas Rojas MD 08/20/24 6626. 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 She denies any physical therapy. She was [...] Right s (more content not included)... Normal [facility] Magnetic resonance imaging r eportOrdered By: Lalit Romero on 08-11-2024 Study report [facility] Imaging Services [address] [place], [place] [address] Spine Lumbar (Routine) MR#: [id number] Acct: [id number] Name: LIBIA OLIVAS FRIDA Rep #: [id number] : 1975 F 49 From: Lupe Romero MD PCP: Dr. Krystina Calle, DO Status: REG CLI Study:Spine Lumbar (Routine) Date of Exam: 08/10/24 Exam# [id number] Ordering Dr: Avelino READ PROCEDURE: SPINE LUMBAR [...] ESHA READ; Dr. Krystina Calle DO ~ Chocolate Finisher: Signed [facility] Spine Lumbar (Routine)on Spine Lumbar (Routine) [facility] Imaging Services [address] [place] [address] Spine Lumbar (Routine) MR#: [id number] Acct: [id number] Name: LIBIA OLIVAS FRIDA Rep #: [id number] : 1975 F 49 From: Lalit Romero MD PCP: Dr. Krystina Calle DO Status: REG CLI Study: Spine Lumbar (Routine) Date of Exam: 08/10/24 Exam# [id number] Ordering Dr: ESHA READ PROCEDURE: SPINE LUMBAR [...] CC: ESHA READ; Dr. Krystina Calle DO Chocolate Finisher: Signed Normal [facility] CBC W Auto Differential pane l (Bld)on 07-29-2024 Basophils (Bld) [#/Vol] 0.07 10*3/uL Normal <0.11 [facility] Comment on above: Order Comment: Speci men Type: BLOOD SPECIMEN Ordering Facility: [facility] Address: [address] [place] [address] Performed By: #### 2 4323-8 #### [facility] CLIA [id number] [address] [place] [address] [place] Basophils/100 WBC (Bld) 0.7 % Normal [facility] Comment on above: Order Comment: Speci men Type: BLOOD SPECIMEN Ordering Facility: [facility] Address: [address] [place] [address] Performed By: #### 2 4323-8 #### [facility] CLIA [id number] [address] [place] [address] [place] Differential cell count method Nom (Bld) Auto Normal [facility] Comment on above: Order Comment: Speci men Type: BLOOD SPECIMEN Ordering Facility: [facility] Address: [address] [place] [address] Performed By: #### 2 4323-8 #### [facility] CLIA [id number] [address] [place] [address] [place] Eosinophils (Bld) [#/Vol] 0.22 10*3/uL Normal <0.46 [facility] Comment on above: Order Comment: Speci men Type: BLOOD SPECIMEN Ordering Facility: [facility] Address: [address] [place] [address] Performed By: #### 2 4323-8 #### [facility] CLIA [id number] [address] [place] [address] [place] Eosinophils/100 WBC (Bld) 2.4 % Normal [facility] Comment on above: Order Comment: Speci men Type: BLOOD SPECIMEN Ordering Facility: [facility] Address: [address] [place] [address] Performed By: #### 2 4323-8 #### [facility] CLIA [id number] [address] [place] [address] [place] Erythrocyte distribution width (RBC) [Ratio] 13.2 % Normal 11.5-15.0 [facility] Comment on above: Order Comment: Speci men Type: BLOOD SPECIMEN Ordering Facility: [facility] Address: [address] [place] [address] Performed By: #### 2 4323-8 #### [facility] CLIA [id number] [address] [place] [address] [place] Hematocrit (Bld) [Volume fraction] 39.1 % Normal 36.0-46.0 [facility] Comment on above: Order Comment: Speci men Type: BLOOD SPECIMEN Ordering Facility: [facility] Address: [address] [place] [address] Performed By: #### 2 4323-8 #### [facility] CLIA [id number] [address] [place] [address] [place] Hemoglobin (Bld) [Mass/Vol] 13.0 g/dL Normal 11.5-15.5 [facility] Comment on above: Order Comment: Speci men Type: BLOOD SPECIMEN Ordering Facility: [facility] Address: [address] [place] [address] Performed By: #### 2 4323-8 #### [facility] CLIA [id number] [address] [place] [address] [place] Immature granulocytes (Bld) [#/Vol] 0.06 10*3/uL Normal <0.10 [facility] Comment on above: Order Comment: Speci men Type: BLOOD SPECIMEN Ordering Facility: [facility] Address: [address] [place] [address] Performed By: #### 2 4323-8 #### [facility] CLIA [id number] [address] [place] [address] [place] Immature granulocytes/100 WBC (Bld) 0.6 % Normal [facility] Comment on above: Order Comment: Speci men Type: BLOOD SPECIMEN Ordering Facility: [facility] Address: [address] [place] [address] Performed By: #### 2 4323-8 #### [facility] CLIA [id number] [address] [place] [address] [place] Lymphocytes (Bld) [#/Vol] 1.48 10*3/uL Normal 1.00-4.00 [facility] Comment on above: Order Comment: Speci men Type: BLOOD SPECIMEN Ordering Facility: [facility] Address: [address] [place] [address] Performed By: #### 2 4323-8 #### [facility] CLIA [id number] [address] [place] [address] [place] Lymphocytes/100 WBC (Bld) 15.8 % Normal [facility] Comment on above: Order Comment: Speci men Type: BLOOD SPECIMEN Ordering Facility: [facility] Address: [address] [place] [address] Performed By: #### 2 4323-8 #### [facility] CLIA [id number] [address] [place] [address] [place] MCH (RBC) [Entitic mass] 27.0 pg Normal 26.0-34.0 [facility] Comment on above: Order Comment: Speci men Type: BLOOD SPECIMEN Ordering Facility: [facility] Address: [address] [place] [address] Performed By: #### 2 4323-8 #### [facility] CLIA [id number] [address] [place] [address] [place] MCHC (RBC) [Mass/Vol] 33.2 g/dL Normal 30.5-36.0 [facility] Comment on above: Order Comment: Speci men Type: BLOOD SPECIMEN Ordering Facility: [facility] Address: [address] [place] [address] Performed By: #### 2 4323-8 #### [facility] CLIA [id number] [address] [place] [address] [place] MCV (RBC) [Entitic vol] 81.3 fL Normal 80.0-100.0 [facility] Comment on above: Order Comment: Speci men Type: BLOOD SPECIMEN Ordering Facility: [facility] Address: [address] [place] [address] Performed By: #### 2 4323-8 #### [facility] CLIA [id number] [address] [place] [address] [place] Monocytes (Bld) [#/Vol] 0.67 10*3/uL Normal <0.87 [facility] Comment on above: Order Comment: Speci men Type: BLOOD SPECIMEN Ordering Facility: [facility] Address: [address] [place] [address] Performed By: #### 2 4323-8 #### [facility] CLIA [id number] [address] [place] [address] [place] Monocytes/100 WBC (Bld) 7.2 % Normal [facility] Comment on above: Order Comment: Speci men Type: BLOOD SPECIMEN Ordering Facility: [facility] Address: [address] [place] [address] Performed By: #### 2 4323-8 #### [facility] CLIA [id number] [address] [place] [address] [place] Neutrophils (Bld) [#/Vol] 6.84 10*3/uL Normal 1.45-7.50 [facility] Comment on above: Order Comment: Speci men Type: BLOOD SPECIMEN Ordering Facility: [facility] Address: [address] [place] [address] Performed By: #### 2 4323-8 #### [facility] CLIA [id number] [address] [place] [address] [place] Neutrophils/100 WBC (Bld) 73.3 % Normal [facility] Comment on above: Order Comment: Speci men Type: BLOOD SPECIMEN Ordering Facility: [facility] Address: [address] [place] [address] Performed By: #### 2 4323-8 #### [facility] CLIA [id number] [address] [place] [address] [place] Nucleated RBC (Bld) [#/Vol] 10*3/uL Normal <0.01 [facility] Comment on above: Order Comment: Speci men Type: BLOOD SPECIMEN Ordering Facility: [facility] Address: [address] [place] [address] Performed By: #### 2 4323-8 #### [facility] CLIA [id number] [address] [place] [address] [place] Nucleated RBC/100 WBC (Bld) [Ratio] 0.0 /100 WBC Normal [facility] Comment on above: Order Comment: Speci men Type: BLOOD SPECIMEN Ordering Facility: [facility] Address: [address] [place] [address] Performed By: #### 2 4323-8 #### [facility] CLIA [id number] [address] [place] [address] [place] Platelet mean volume (Bld) [Entitic vol] 9.5 fL Normal 9.0-12.7 [facility] Comment on above: Order Comment: Speci men Type: BLOOD SPECIMEN Ordering Facility: [facility] Address: [address] [place] [address] Performed By: #### 2 4323-8 #### [facility] CLIA [id number] [address] [place] [address] [place] Platelets (Bld) [#/Vol] 227 10*3/uL Normal 150-400 [facility] Comment on above: Order Comment: Speci men Type: BLOOD SPECIMEN Ordering Facility: [facility] Address: [address] [place] [address] Performed By: #### 2 4323-8 #### [facility] CLIA [id number] [address] [place] [address] [place] RBC (Bld) [#/Vol] 4.81 10*6/uL Normal 3.90-5.20 [facility] Comment on above: Order Comment: Speci men Type: BLOOD SPECIMEN Ordering Facility: [facility] Address: [address] [place] [address] Performed By: #### 2 4323-8 #### [facility] CLIA [id number] [address] [place] [address] [place] WBC (Bld) [#/Vol] 9.34 10*3/uL Normal 3.70-11.00 [facility] Comment on above: Order Comment: Speci men Type: BLOOD SPECIMEN Ordering Facility: [facility] Address: [address] [place] [address] Performed By: #### 2 4323-8 #### [facility] CLIA [id number] [address] [place] [address] [place] Comprehensive metabolic 2000 panelon 07-29-2024 Albumin [Mass/Vol] 4.1 g/dL Normal 3.9-4.9 [facility] Comment on above: Order Comment: Speci men Type: BLOOD SPECIMENOrdering Facility: [facility] Address: [address] [place] [address] Performed By: #### 2 4323-8 ####[facility] [id number] [place] [address] [place] ALP [Catalytic activity/Vol] 71 U/L Normal 34-123 [facility] Comment on above: Order Comment: Speci men Type: BLOOD SPECIMENOrdering Facility: [facility] Address: [address] [place] [address] Performed By: #### 2 4323-8 ####[facility] [id number] [address] [place] ALT [Catalytic activity/Vol] 22 U/L Normal 7-38 [facility] Comment on above: Order Comment: Speci men Type: BLOOD SPECIMENOrdering Facility: [facility] Address: [address] [place] [address] Performed By: #### 2 4323-8 ####[facility] [id number] [place] [address] [place] Anion gap [Moles/Vol] 7 mmol/L Low 8-15 [facility] Comment on above: Order Comment: Speci men Type: BLOOD SPECIMENOrdering Facility: [facility] Address: [address] [place] [address] Performed By: #### 2 4323-8 ####[facility] MILLTOWNCLIA [id number] [place] [address] [place] AST [Catalytic activity/Vol] 10 U/L Low 13-35 [facility] Comment on above: Order Comment: Speci men Type: BLOOD SPECIMENOrdering Facility: [facility] Address: [address] [place] [address] Performed By: #### 2 4323-8 ####[facility] MILLTOWNCLIA [id number] [place] [address] [place] Bilirubin [Mass/Vol] 0.4 mg/dL Normal 0.2-1.3 [facility] Comment on above: Order Comment: Speci men Type: BLOOD SPECIMENOrdering Facility: [facility] Address: [address] [place] [address] Performed By: #### 2 4323-8 ####[facility] [id number] [place] [address] [place] Calcium [Mass/Vol] 8.9 mg/dL Normal 8.5-10.2 [facility] Comment on above: Order Comment: Speci men Type: BLOOD SPECIMENOrdering Facility: [facility] Address: [address] [place] [address] Performed By: #### 2 4323-8 ####[facility] [id number] [place] [address] [place] Chloride [Moles/Vol] 107 mmol/L Normal 98-107 [facility] Comment on above: Order Comment: Speci men Type: BLOOD SPECIMENOrdering Facility: [facility] Address: [address] [place] [address] Performed By: #### 2 4323-8 ####[facility] MILLTOWNCLIA [id number] [place] [address] [place] CO2 [Moles/Vol] 26 mmol/L Normal 22-30 [facility] Comment on above: Order Comment: Speci men Type: BLOOD SPECIMENOrdering Facility: [facility] Address: [address] [place] [address] Performed By: #### 2 4323-8 ####[facility] [id number] [place] [address] [place] Creatinine [Mass/Vol] 0.65 mg/dL Normal 0.58-0.96 [facility] Comment on above: Order Comment: Speci men Type: BLOOD SPECIMENOrdering Facility: [facility] Address: [address] [place] [address] Performed By: #### 2 4323-8 ####[facility] [id number] [place] [address] [place] Creatinine and Glomerular filtration rate.predicted panel (S/P/Bld) 109 mL/min/1.73m??? Normal >=60 [facility] Comment on above: Order Comment: Speci men Type: BLOOD SPECIMENOrdering Facility: [facility] Address: [address] [place] [address] Result Comment: Antoinette mated Glomerular Filtration Rate [...] actual GFR. Performed By: #### 2 4323-8 ####[facility] [id number] [place] [address] [place] Glucose [Mass/Vol] 130 mg/dL High 74-99 [facility] Comment on above: Order Comment: Speci men Type: BLOOD SPECIMENOrdering Facility: [facility] Address: [address] [place] [address] Result Comment: The [place] Diabetes Association (ADA) provides guidance for cutoff [...] Standards of Medical Care in Diabetes 2016, [place] [employer]. Diabetes Care. 2016.39(Suppl 1). Performed By: #### 2 4323-8 ####[facility] [id number] [place] [address] [place] Potassium [Moles/Vol] 4.1 mmol/L Normal 3.7-5.1 [facility] Comment on above: Order Comment: Speci men Type: BLOOD SPECIMENOrdering Facility: [facility] Address: [address] [place] [address] Performed By: #### 2 4323-8 ####[facility] [id number] [place] [address] [place] Protein [Mass/Vol] 6.4 g/dL Normal 6.3-8.0 [facility] Comment on above: Order Comment: Speci men Type: BLOOD SPECIMENOrdering Facility: [facility] Address: [address] [place] [address] Performed By: #### 2 4323-8 ####[facility] [id number] [place] [address] [place] Sodium [Moles/Vol] 140 mmol/L Normal 136-144 [facility] Comment on above: Order Comment: Speci men Type: BLOOD SPECIMENOrdering Facility: [facility] Address: [address] [place] [address] Performed By: #### 2 4323-8 ####[facility] [id number] [place] [address] [place] Urea nitrogen [Mass/Vol] 10 mg/dL Normal 7-21 [facility] Comment on above: Order Comment: Speci men Type: BLOOD SPECIMENOrdering Facility: [facility] Address: [address] [place] [address] Performed By: #### 2 4323-8 ####[facility] [id number] [place] [address] [place] L/S Spine Bending Flex/[place] 07-14-2024 L/S Spine Bending Flex/Ext [facility] Imaging Services [address] [place] [address] L/S Spine Bending Flex/Ext MR#: [id number] Acct: [id number] Name: LIBIA OLIVAS FRIDA Rep #: [id number] : 1975 F 49 From: Chau Martinez MD PCP: Dr. Krystina Calle DO Status: REG CLI Study: L/S Spine Bending Flex/Ext Date of Exam: 07/14 Exam# [id number] Ordering Dr: Mireya Cortez PROCEDURE: L/S SPINE [...] the flexion and extension views. Reading Location: [id number] CC: AZEB Love; Dr. Krystina Calle DO Chocolate Finisher: Signed Normal [facility] CBC W Auto Differential pane l (Bld)on 07-01-2024 Basophils (Bld) [#/Vol] 0.05 10*3/uL Normal <0.11 [facility] Comment on above: Order Comment: Speci men Type: BLOOD SPECIMEN Ordering Facility: [facility] Address: [facility] [place] [address] Performed By: #### 5 7021-8 #### [facility] CLIA [id number] [address] [place] [address] [place] Basophils/100 WBC (Bld) 0.9 % Normal [facility] Comment on above: Order Comment: Speci men Type: BLOOD SPECIMEN Ordering Facility: [facility] Address: [address] [place] [address] Performed By: #### 5 7021-8 #### [facility] CLIA [id number] [address] [place] [address] [place] Differential cell count method Nom (Bld) Auto Normal [facility] Comment on above: Order Comment: Speci men Type: BLOOD SPECIMEN Ordering Facility: [facility] Address: [address] [place] [address] Performed By: #### 5 7021-8 #### [facility] CLIA [id number] [address] [place] [address] [place] Eosinophils (Bld) [#/Vol] 0.18 10*3/uL Normal <0.46 [facility] Comment on above: Order Comment: Speci men Type: BLOOD SPECIMEN Ordering Facility: [facility] Address: [address] [place] [address] Performed By: #### 5 7021-8 #### [facility] CLIA [id number] [address] [place] [address] [place] Eosinophils/100 WBC (Bld) 3.2 % Normal [facility] Comment on above: Order Comment: Speci men Type: BLOOD SPECIMEN Ordering Facility: [facility] Address: [address] [place] [address] Performed By: #### 5 7021-8 #### [facility] CLIA [id number] [address] [place] [address] [place] Erythrocyte distribution width (RBC) [Ratio] 12.8 % Normal 11.5-15.0 [facility] Comment on above: Order Comment: Speci men Type: BLOOD SPECIMEN Ordering Facility: [facility] Address: [address] [place] [address] Performed By: #### 5 7021-8 #### [facility] CLIA [id number] [address] [place] [address] [place] Hematocrit (Bld) [Volume fraction] 39.1 % Normal 36.0-46.0 [facility] Comment on above: Order Comment: Speci men Type: BLOOD SPECIMEN Ordering Facility: [facility] Address: [address] [place] [address] Performed By: #### 5 7021-8 #### [facility] [id number] [address] [place] [address] [place] Hemoglobin (Bld) [Mass/Vol] 13.2 g/dL Normal 11.5-15.5 [facility] Comment on above: Order Comment: Speci men Type: BLOOD SPECIMEN Ordering Facility: [facility] Address: [address] [place] [address] Performed By: #### 5 7021-8 #### [facility] CLIA [id number] [address] [place] [address] [place] Immature granulocytes (Bld) [#/Vol] 0.03 10*3/uL Normal <0.10 [facility] Comment on above: Order Comment: Speci men Type: BLOOD SPECIMEN Ordering Facility: [facility] Address: [address] [place] [address] Performed By: #### 5 7021-8 #### [facility] [id number] [address] [place] [address] [place] Immature granulocytes/100 WBC (Bld) 0.5 % Normal [facility] Comment on above: Order Comment: Speci men Type: BLOOD SPECIMEN Ordering Facility: [facility] Address: [address] [place] [address] Performed By: #### 5 7021-8 #### [facility] CLIA [id number] [address] [place] [address] [place] Lymphocytes (Bld) [#/Vol] 1.25 10*3/uL Normal 1.00-4.00 [facility] Comment on above: Order Comment: Speci men Type: BLOOD SPECIMEN Ordering Facility: [facility] Address: [address] [place], [place] [id number] Performed By: #### 5 7021-8 #### [facility] [id number] [address] [place] [address] [place] Lymphocytes/100 WBC (Bld) 22.2 % Normal [facility] Comment on above: Order Comment: Speci men Type: BLOOD SPECIMEN Ordering Facility: [facility] Address: [address] [place] [address] Performed By: #### 5 7021-8 #### [facility] CLIA [id number] [address] [place] [address] [place] MCH (RBC) [Entitic mass] 27.3 pg Normal 26.0-34.0 [facility] Comment on above: Order Comment: Speci men Type: BLOOD SPECIMEN Ordering Facility: [facility] Address: [address] [place] [address] Performed By: #### 5 7021-8 #### [facility] [id number] [address] [place] [address] [place] MCHC (RBC) [Mass/Vol] 33.8 g/dL Normal 30.5-36.0 [facility] Comment on above: Order Comment: Speci men Type: BLOOD SPECIMEN Ordering Facility: [facility] Address: [address] [place] [address] Performed By: #### 5 7021-8 #### [facility] CLIA [id number] [address] [place] [address] [place] MCV (RBC) [Entitic vol] 81.0 fL Normal 80.0-100.0 [facility] Comment on above: Order Comment: Speci men Type: BLOOD SPECIMEN Ordering Facility: [facility] Address: [address] [place] [address] Performed By: #### 5 7021-8 #### [facility] CLIA [id number] [address] [place] [address] [place] Monocytes (Bld) [#/Vol] 0.48 10*3/uL Normal <0.87 [facility] Comment on above: Order Comment: Speci men Type: BLOOD SPECIMEN Ordering Facility: [facility] Address: [address] [place] [address] Performed By: #### 5 7021-8 #### [facility] CLIA [id number] [address] [place] [address] [place] Monocytes/100 WBC (Bld) 8.5 % Normal [facility] Comment on above: Order Comment: Speci men Type: BLOOD SPECIMEN Ordering Facility: [facility] Address: [address] [place] [address] Performed By: #### 5 7021-8 #### [facility] CLIA [id number] [address] [place] [address] [place] Neutrophils (Bld) [#/Vol] 3.65 10*3/uL Normal 1.45-7.50 [facility] Comment on above: Order Comment: Speci men Type: BLOOD SPECIMEN Ordering Facility: [facility] Address: [address] [place] [address] Performed By: #### 5 7021-8 #### [facility] CLIA [id number] [address] [place] [address] [place] Neutrophils/100 WBC (Bld) 64.7 % Normal [facility] Comment on above: Order Comment: Speci men Type: BLOOD SPECIMEN Ordering Facility: [facility] Address: [address] [place] [address] Performed By: #### 5 7021-8 #### [facility] CLIA [id number] [address] [place] [address] [place] Nucleated RBC (Bld) [#/Vol] 10*3/uL Normal <0.01 [facility] Comment on above: Order Comment: Speci men Type: BLOOD SPECIMEN Ordering Facility: [facility] Address: [address] [place] [address] Performed By: #### 5 7021-8 #### [facility] CLIA [id number] [address] [place] [address] [place] Nucleated RBC/100 WBC (Bld) [Ratio] 0.0 /100 WBC Normal [facility] Comment on above: Order Comment: Speci men Type: BLOOD SPECIMEN Ordering Facility: [facility] Address: [address] [place] [address] Performed By: #### 5 7021-8 #### [facility] CLIA [id number] [address] [place] [address] [place] Platelet mean volume (Bld) [Entitic vol] 10.1 fL Normal 9.0-12.7 [facility] Comment on above: Order Comment: Speci men Type: BLOOD SPECIMEN Ordering Facility: [facility] Address: [address] [place] [address] Performed By: #### 5 7021-8 #### [facility] CLIA [id number] [address] [place] [address] [place] Platelets (Bld) [#/Vol] 209 10*3/uL Normal 150-400 [facility] Comment on above: Order Comment: Speci men Type: BLOOD SPECIMEN Ordering Facility: [facility] Address: [address] [place] [address] Performed By: #### 5 7021-8 #### [facility] CLIA [id number] [address] [place] [address] [place] RBC (Bld) [#/Vol] 4.83 10*6/uL Normal 3.90-5.20 [facility] Comment on above: Order Comment: Speci men Type: BLOOD SPECIMEN Ordering Facility: [facility] Address: [address] [place] [address] Performed By: #### 5 7021-8 #### [facility] CLIA [id number] [address] [place] [address] [place] WBC (Bld) [#/Vol] 5.64 10*3/uL Normal 3.70-11.00 [facility] Comment on above: Order Comment: Speci men Type: BLOOD SPECIMEN Ordering Facility: [facility] Address: [address] [place] [address] Performed By: #### 5 7021-8 #### [facility] CLIA [id number] [address] [place] [address] [place] CNOVSPon 07-01-2024 CNOVSP Visit (SP) Office (H EMAWS) LIBIA OLIVAS ([id number]) 1975 F Date Time Provider Department 07/01/24 [...] since hadn't had in a year) at [facility] and incidental leukocytosis with WBC count 135.68K. Hgb and platelets normal. Recheck at [facility] 07/21/2022 revealed total white count 131.8 [...] starting Scemblix. Plain film was done at [facility] indicating disc space narrowing at L4-L5 and [...] orthomattie galeas (more content not included)... Normal [facility] Lipase SerPl-cCncon 07-02-19 25 Lipase [Catalytic activity/Vol] 13 U/L Low 16-61 [facility] Comment on above: Order Comment: Speci men Type: BLOOD SPECIMENOrdering Facility: [facility] Address: [address] [place] [address] Performed By: #### 3 040-3 ####[facility] [id number] [address] OF [facility] Nelli 06-26-2024 MARY Telephone (PATRICK) LIBIA OLIVAS ([id number]) 1975 F Date Time Provider Department 06/26/24 ESHA READ During your visit today, we recorded the following information about you: Esha Read 06/26/2024 2:22 PM Signed Called patient to review XR of spine. Recommend MRI lumbar to further evaluate. Should also get in to see ortho. Pt is agreeable. Will need imaging at [facility]. PSR: Can you please fax orders and get her set up to have MRI lumbar at [facility] please? Referral placed to ORTHO also at [facility]. Esha Read APRN.Mode Clark 06/26/2024 3:51 PM Signed Referrals have been faxed to [facility], confirmation scanned into docs. Mode Moss Allergies As of Date: 06/26/2024 Noted Allergy Reaction IV DYE (IODINATED CONTRAST MEDIA) 07/25/2022 4 - Hives 7 - Swelling NUBAIN (NALBUPHINE HCL) 05/23/2015 11 - Vomiting Date Reviewed: 06/18/2024 Reviewed by: Esha Read - Fully Assessed Primary Visit Diagnosis:Spinal stenosis of lumbar region, unspecified whether neurogenic claudication present [M48.061] Order(s):MRI LUMBAR SPINE WO IVCON [0841266] Order #: [id number] FUTURE CONSULT TO ORTHOPAEDICS [9033] Order #: [id number]: 1 FUTURE Prescriptions as of 06/26/2024 - [...] Status:Closed by MODE MOSS on 06/26/24 Normal [facility] CBC W Auto Differential pane l (Bld)on 06-18-2024 Basophils (Bld) [#/Vol] 0.06 10*3/uL Normal <0.11 [facility] Comment on above: Order Comment: Speci men Type: BLOOD SPECIMEN Ordering Facility: [facility] Address: [address] [facility] [address] Performed By: #### 2 4323-8 #### [facility] CLIA [id number] [address] [place], [place] [id number] [place] Basophils/100 WBC (Bld) 0.8 % Normal [facility] Comment on above: Order Comment: Speci men Type: BLOOD SPECIMEN Ordering Facility: [facility] Address: [address] [place] [address] Performed By: #### 2 4323-8 #### [facility] CLIA [id number] [address] [place] [address] [place] Differential cell count method Nom (Bld) Auto Normal [facility] Comment on above: Order Comment: Speci men Type: BLOOD SPECIMEN Ordering Facility: [facility] Address: [address] [place] [address] Performed By: #### 2 4323-8 #### [facility] CLIA [id number] [address] [place] [address] [place] Eosinophils (Bld) [#/Vol] 0.18 10*3/uL Normal <0.46 [facility] Comment on above: Order Comment: Speci men Type: BLOOD SPECIMEN Ordering Facility: [facility] Address: [address] [place] [address] Performed By: #### 2 4323-8 #### [facility] CLIA [id number] [address] [place] [address] [place] Eosinophils/100 WBC (Bld) 2.3 % Normal [facility] Comment on above: Order Comment: Speci men Type: BLOOD SPECIMEN Ordering Facility: [facility] Address: [address] [place] [address] Performed By: #### 2 4323-8 #### [facility] CLIA [id number] [address] [place] [address] [place] Erythrocyte distribution width (RBC) [Ratio] 13.0 % Normal 11.5-15.0 [facility] Comment on above: Order Comment: Speci men Type: BLOOD SPECIMEN Ordering Facility: [facility] Address: [address] [place] [address] Performed By: #### 2 4323-8 #### [facility] CLIA [id number] [address] [place] [address] [place] Hematocrit (Bld) [Volume fraction] 36.0 % Normal 36.0-46.0 [facility] Comment on above: Order Comment: Speci men Type: BLOOD SPECIMEN Ordering Facility: [facility] Address: [address] [place] [address] Performed By: #### 2 4323-8 #### [facility] CLIA [id number] [address] [place] [address] [place] Hemoglobin (Bld) [Mass/Vol] 12.4 g/dL Normal 11.5-15.5 [facility] Comment on above: Order Comment: Speci men Type: BLOOD SPECIMEN Ordering Facility: [facility] Address: [address] [place] [address] Performed By: #### 2 4323-8 #### [facility] CLIA [id number] [address] [place] [address] [place] Immature granulocytes (Bld) [#/Vol] 0.05 10*3/uL Normal <0.10 [facility] Comment on above: Order Comment: Speci men Type: BLOOD SPECIMEN Ordering Facility: [facility] Address: [address] [place] [address] Performed By: #### 2 4323-8 #### [facility] CLIA [id number] [address] [place] [address] [place] Immature granulocytes/100 WBC (Bld) 0.6 % Normal [facility] Comment on above: Order Comment: Speci men Type: BLOOD SPECIMEN Ordering Facility: [facility] Address: [address] [place] [address] Performed By: #### 2 4323-8 #### [facility] CLIA [id number] [address] [place] [address] [place] Lymphocytes (Bld) [#/Vol] 1.50 10*3/uL Normal 1.00-4.00 [facility] Comment on above: Order Comment: Speci men Type: BLOOD SPECIMEN Ordering Facility: [facility] Address: [address] [place] [address] Performed By: #### 2 4323-8 #### [facility] CLIA [id number] [address] [place] [address] [place] Lymphocytes/100 WBC (Bld) 18.9 % Normal [facility] Comment on above: Order Comment: Speci men Type: BLOOD SPECIMEN Ordering Facility: [facility] Address: [address] [place] [address] Performed By: #### 2 4323-8 #### [facility] [id number] [address] [place] [address] [place] MCH (RBC) [Entitic mass] 28.1 pg Normal 26.0-34.0 [facility] Comment on above: Order Comment: Speci men Type: BLOOD SPECIMEN Ordering Facility: [facility] Address: [address] [place] [address] Performed By: #### 2 4323-8 #### [facility] [id number] [address] [place] [address] [place] MCHC (RBC) [Mass/Vol] 34.4 g/dL Normal 30.5-36.0 [facility] Comment on above: Order Comment: Speci men Type: BLOOD SPECIMEN Ordering Facility: [facility] Address: [address] [place] [address] Performed By: #### 2 4323-8 #### [facility] [id number] [address] [place] [address] [place] MCV (RBC) [Entitic vol] 81.6 fL Normal 80.0-100.0 [facility] Comment on above: Order Comment: Speci men Type: BLOOD SPECIMEN Ordering Facility: [facility] Address: [address] [place] [address] Performed By: #### 2 4323-8 #### [facility] CLIA [id number] [address] [place] [address] [place] Monocytes (Bld) [#/Vol] 0.47 10*3/uL Normal <0.87 [facility] Comment on above: Order Comment: Speci men Type: BLOOD SPECIMEN Ordering Facility: [facility] Address: [address] [place] [address] Performed By: #### 2 4323-8 #### [facility] CLIA [id number] [address] [place] [address] [place] Monocytes/100 WBC (Bld) 5.9 % Normal [facility] Comment on above: Order Comment: Speci men Type: BLOOD SPECIMEN Ordering Facility: [facility] Address: [address] [place] [address] Performed By: #### 2 4323-8 #### [facility] CLIA [id number] [address] [place] [address] [place] Neutrophils (Bld) [#/Vol] 5.66 10*3/uL Normal 1.45-7.50 [facility] Comment on above: Order Comment: Speci men Type: BLOOD SPECIMEN Ordering Facility: [facility] Address: [address] [place] [address] Performed By: #### 2 4323-8 #### [facility] CLIA [id number] [address] [place] [address] [place] Neutrophils/100 WBC (Bld) 71.5 % Normal [facility] Comment on above: Order Comment: Speci men Type: BLOOD SPECIMEN Ordering Facility: [facility] Address: [address] [place] [address] Performed By: #### 2 4323-8 #### [facility] CLIA [id number] [address] [place] [address] [place] Nucleated RBC (Bld) [#/Vol] 10*3/uL Normal <0.01 [facility] Comment on above: Order Comment: Speci men Type: BLOOD SPECIMEN Ordering Facility: [facility] Address: [address] [place] [address] Performed By: #### 2 4323-8 #### [facility] CLIA [id number] [address] [place] [address] [place] Nucleated RBC/100 WBC (Bld) [Ratio] 0.0 /100 WBC Normal [facility] Comment on above: Order Comment: Speci men Type: BLOOD SPECIMEN Ordering Facility: [facility] Address: [address] [place] [address] Performed By: #### 2 4323-8 #### [facility] CLIA [id number] [address] [place] [address] [place] Platelet mean volume (Bld) [Entitic vol] 10.5 fL Normal 9.0-12.7 [facility] Comment on above: Order Comment: Speci men Type: BLOOD SPECIMEN Ordering Facility: [facility] Address: [address] [place] [address] Performed By: #### 2 4323-8 #### [facility] CLIA [id number] [address] [place] [address] [place] Platelets (Bld) [#/Vol] 240 10*3/uL Normal 150-400 [facility] Comment on above: Order Comment: Speci men Type: BLOOD SPECIMEN Ordering Facility: [facility] Address: [address] [place] [address] Performed By: #### 2 4323-8 #### [facility] CLIA [id number] [address] [place] [address] [place] RBC (Bld) [#/Vol] 4.41 10*6/uL Normal 3.90-5.20 [facility] Comment on above: Order Comment: Speci men Type: BLOOD SPECIMEN Ordering Facility: [facility] Address: [address] [place] [address] Performed By: #### 2 4323-8 #### [facility] CLIA [id number] [address] [place] [address] [place] WBC (Bld) [#/Vol] 7.92 10*3/uL Normal 3.70-11.00 [facility] Comment on above: Order Comment: Speci men Type: BLOOD SPECIMEN Ordering Facility: [facility] Address: [address] [place], [place] [address] Performed By: #### 2 4323-8 #### [facility] CLIA [id number] [address] [place] [address] [place] CNOVSPon 06-18-2024 CNOVSP Visit (SP) Office (H EMAWS) LIBIA OLIVAS ([id number]) 1975 F Date Time Provider Department 06/18/24 [...] since hadn't had in a year) at [facility] and incidental leukocytosis with WBC count 135.68K. Hgb and platelets normal. Recheck at [facility] 07/21/2022 revealed total white count 131.8 [...] plan for xray to be done at [facility] - also recommended establishing with ortho for chronic spinal issues. 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 Normal [facility] Lipase SerPl-cCncon 06-19-19 25 Lipase [Catalytic activity/Vol] 15 U/L Low 16-61 [facility] Comment on above: Order Comment: Speci men Type: BLOOD SPECIMENOrdering Facility: [facility] Address: [address] [place] [address] Performed By: #### 3 040-3 ####[facility] [id number] [place] [id number] [place] [facility] Lumbar Spine 2 or 3 Viewson 06-18-2024 Lumbar Spine 2 or 3 Views [facility] [address] [place] [address] Lumbar Spine 2 or 3 Views MR#: [id number] Acct: [id number] Name: LIBIA OLIVAS FRIDA Rep #: [id number] : 1975 F 49 From: Jana Emerson PCP: Dr. Krystina Calle DO Status: REG CLI Study: Lumbar Spine 2 or 3 Views Date of Exam: Exam# [id number] Ordering Dr: Toño Brandon o. PROCEDURE: LUMBAR [...] and abnormal plain film findings. Reading Location: [facility]PI CC: ESHA READ; Dr. 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 New Lipase methodology. Expected to produce lower values than the previous assay method. NEW Reference Range: 13 - 75 U/L Performed By: #### L 501.2450 #### [facility] [address] [place], [address] Lipase measurementOrdered By : Fabiano Liz on 06-15-2024 Lipase [Catalytic activity/Vol] 18 U/L 13-75 [facility] Comment on above: Please note:LIPASE r evised reference range effective 22. New Lipase methodology. Expected to produce lower values than the previous assay method. NEW Reference Range: 13 - 75 U/L Nelli 06-12-2024 MARY Telephone (PATRICK) LIBIA OLIVAS ([id number]) 1975 F Date Time Provider Department 06/12/24 [...] obtain plain film x-rays and schedule an WELFARE VISITOR visit. DO Bibi Rodriguez Amber, RN 06/15/2024 11:46 AM Signed Patient would like to have lab checked at [facility]. Order faxed. Patient informed of Dr. Liz's response and stated understanding. WENDIE To Amber, RN 06/15/2024 4:14 PM Addendum Copied from [facility]: LIPASE 18 13-75 U/L Please note: LIPASE revised reference range effective 22. New Lipase methodology. Expected to produce lower values than the previous assay method. NEW Reference Range: 13 - 75 U/L WENDIE To Paul A, DO 06/15/2024 4:55 PM Signed That's good. Can we set up OV with WELFARE VISITOR to assess back pain further? DO Leilani [...] Reviewed: 0 (more content not included)... 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 Hgb and platelets normal. Recheck at [facility] 07/21/2022 revealed total white count 131.8 [...] Fabiano Liz DO Referring Provider: FABIANO LIZ [[id number]] Allergies As of Date: 04/27/2024 (more content not included)... Normal [facility] BCR/ABL1 P210 %IS PANELon BCR/ABL1 P210 %IS 0.01 Normal [facility] Comment on above: Order Comment: Kaitlin shafer Type: BLOOD SPECIMEN Ordering Facility: [facility] Address: [address] [place] [address] Performed By: #### 2 4323-8 #### [facility] CLIA [id number] [address] [place] [address] [place] BCR/ABL1 P210 MR 4 Normal [facility] Comment on above: Order Comment: Kaitlin shafer Type: BLOOD SPECIMEN Ordering Facility: [facility] Address: [address] [place] [address] Performed By: #### 2 4323-8 #### [facility] CLIA [id number] [address] [place] [address] [place] BCR/ABL1 P210 QUANTITATIVE P CR BLOODon 04-20-2024 BCR/ABL1 P210 INTERPRETATION Normal [facility] Comment on above: Order Comment: Kaitlin shafer Type: BLOOD SPECIMEN Ordering Facility: [facility] Address: [address] [place] [address] Result Comment: BCR/ ABL1 p210 Quantitative PCR Laboratory Accession Number: [id number] Result: DETECTED MR: 4 %IS: 0.01 Interpretation: p210 BCR/ABL1 transcripts were detected. Quantitative results are expressed on the International Scale (IS) and a log molecular response (MR) is calculated. On this scale, a value of less than or equal to 0.1% corresponds to a major molecular response (MMR or MR3.0). Methodology: The [employer] QuantideX BCR/ABL IS assay is an FDA-cleared [...] MD Performed By: #### 2 4323-8 #### [facility] CLIA [id number] [address] [place] [address] [place] CBC W Auto Differential pane l (Bld)on 04-20-2024 Basophils (Bld) [#/Vol] 0.04 10*3/uL Normal <0.11 [facility] Comment on above: Order Comment: Speci men Type: BLOOD SPECIMEN Ordering Facility: [facility] Address: [address] [place] [address] Performed By: #### 2 4323-8 #### [facility] CLIA [id number] [address] [place] [address] [place] Basophils/100 WBC (Bld) 0.6 % Normal [facility] Comment on above: Order Comment: Speci men Type: BLOOD SPECIMEN Ordering Facility: [facility] Address: [address] [place] [address] Performed By: #### 2 4323-8 #### [facility] CLIA [id number] [address] [place] [address] [place] Differential cell count method Nom (Bld) Auto Normal [facility] Comment on above: Order Comment: Speci men Type: BLOOD SPECIMEN Ordering Facility: [facility] Address: [address] [place] [address] Performed By: #### 2 4323-8 #### [facility] CLIA [id number] [address] [place] [address] [place] Eosinophils (Bld) [#/Vol] 0.25 10*3/uL Normal <0.46 [facility] Comment on above: Order Comment: Speci men Type: BLOOD SPECIMEN Ordering Facility: [facility] Address: [address] [place] [address] Performed By: #### 2 4323-8 #### [facility] CLIA [id number] [address] [place] [address] [place] Eosinophils/100 WBC (Bld) 3.5 % Normal [facility] Comment on above: Order Comment: Speci men Type: BLOOD SPECIMEN Ordering Facility: [facility] Address: [address] [place] [address] Performed By: #### 2 4323-8 #### [facility] CLIA [id number] [address] [place] [address] [place] Erythrocyte distribution width (RBC) [Ratio] 13.8 % Normal 11.5-15.0 [facility] Comment on above: Order Comment: Speci men Type: BLOOD SPECIMEN Ordering Facility: [facility] Address: [address] [place] [address] Performed By: #### 2 4323-8 #### [facility] CLIA [id number] [address] [place] [address] [place] Hematocrit (Bld) [Volume fraction] 37.1 % Normal 36.0-46.0 [facility] Comment on above: Order Comment: Speci men Type: BLOOD SPECIMEN Ordering Facility: [facility] Address: [address] [place] [address] Performed By: #### 2 4323-8 #### [facility] CLIA [id number] [address] [place] [address] [place] Hemoglobin (Bld) [Mass/Vol] 12.4 g/dL Normal 11.5-15.5 [facility] Comment on above: Order Comment: Speci men Type: BLOOD SPECIMEN Ordering Facility: [facility] Address: [address] [place] [address] Performed By: #### 2 4323-8 #### [facility] CLIA [id number] [address] [place] [address] [place] Immature granulocytes (Bld) [#/Vol] 10*3/uL Normal <0.10 [facility] Comment on above: Order Comment: Speci men Type: BLOOD SPECIMEN Ordering Facility: [facility] Address: [address] [place] [address] Performed By: #### 2 4323-8 #### [facility] CLIA [id number] [address] [place] [address] [place] Immature granulocytes/100 WBC (Bld) 0.1 % Normal [facility] Comment on above: Order Comment: Speci men Type: BLOOD SPECIMEN Ordering Facility: [facility] Address: [address] [place] [address] Performed By: #### 2 4323-8 #### [facility] CLIA [id number] [address] [place] [address] [place] Lymphocytes (Bld) [#/Vol] 1.47 10*3/uL Normal 1.00-4.00 [facility] Comment on above: Order Comment: Speci men Type: BLOOD SPECIMEN Ordering Facility: [facility] Address: [address] [place] [address] Performed By: #### 2 4323-8 #### [facility] CLIA [id number] [address] [place] [address] [place] Lymphocytes/100 WBC (Bld) 20.9 % Normal [facility] Comment on above: Order Comment: Speci men Type: BLOOD SPECIMEN Ordering Facility: [facility] Address: [address] [place] [address] Performed By: #### 2 4323-8 #### [facility] CLIA [id number] [address] [place] [address] [place] MCH (RBC) [Entitic mass] 27.7 pg Normal 26.0-34.0 [facility] Comment on above: Order Comment: Speci men Type: BLOOD SPECIMEN Ordering Facility: [facility] Address: [address] [place] [address] Performed By: #### 2 4323-8 #### [facility] CLIA [id number] [address] [place] [address] [place] MCHC (RBC) [Mass/Vol] 33.4 g/dL Normal 30.5-36.0 [facility] Comment on above: Order Comment: Speci men Type: BLOOD SPECIMEN Ordering Facility: [facility] Address: [address] [place] [address] Performed By: #### 2 4323-8 #### [facility] CLIA [id number] [address] [place] [address] [place] MCV (RBC) [Entitic vol] 83.0 fL Normal 80.0-100.0 [facility] Comment on above: Order Comment: Speci men Type: BLOOD SPECIMEN Ordering Facility: [facility] Address: [address] [place] [address] Performed By: #### 2 4323-8 #### [id number] [address] [place] [address] [place] Monocytes (Bld) [#/Vol] 0.38 10*3/uL Normal <0.87 [facility] Comment on above: Order Comment: Speci men Type: BLOOD SPECIMEN Ordering Facility: [facility] Address: [address] [place] [address] Performed By: #### 2 4323-8 #### [facility] CLIA [id number] [address] [place] [address] [place] Monocytes/100 WBC (Bld) 5.4 % Normal [facility] Comment on above: Order Comment: Speci men Type: BLOOD SPECIMEN Ordering Facility: [facility] Address: [address] [place] [address] Performed By: #### 2 4323-8 #### [facility] CLIA [id number] [address] [place] [address] [place] Neutrophils (Bld) [#/Vol] 4.90 10*3/uL Normal 1.45-7.50 [facility] Comment on above: Order Comment: Speci men Type: BLOOD SPECIMEN Ordering Facility: [facility] Address: [address] [place] [address] Performed By: #### 2 4323-8 #### [facility] CLIA [id number] [address] [place] [address] [place] Neutrophils/100 WBC (Bld) 69.5 % Normal [facility] Comment on above: Order Comment: Speci men Type: BLOOD SPECIMEN Ordering Facility: [facility] Address: [address] [place] [address] Performed By: #### 2 4323-8 #### [facility] CLIA [id number] [address] [place] [address] [place] Nucleated RBC (Bld) [#/Vol] 10*3/uL Normal <0.01 [facility] Comment on above: Order Comment: Speci men Type: BLOOD SPECIMEN Ordering Facility: [facility] Address: [address] [place] [address] Performed By: #### 2 4323-8 #### [facility] CLIA [id number] [address] [place] [address] [place] Nucleated RBC/100 WBC (Bld) [Ratio] 0.0 /100 WBC Normal [facility] Comment on above: Order Comment: Speci men Type: BLOOD SPECIMEN Ordering Facility: [facility] Address: [address] [place] [address] Performed By: #### 2 4323-8 #### [facility] CLIA [id number] [address] [place] [address] [place] Platelet mean volume (Bld) [Entitic vol] 10.4 fL Normal 9.0-12.7 [facility] Comment on above: Order Comment: Speci men Type: BLOOD SPECIMEN Ordering Facility: [facility] Address: [address] [place] [address] Performed By: #### 2 4323-8 #### [facility] CLIA [id number] [address] [place] [address] [place] Platelets (Bld) [#/Vol] 221 10*3/uL Normal 150-400 [facility] Comment on above: Order Comment: Speci men Type: BLOOD SPECIMEN Ordering Facility: [facility] Address: [address] [place] [address] Performed By: #### 2 4323-8 #### [facility] CLIA [id number] [address] [place] [address] [place] RBC (Bld) [#/Vol] 4.47 10*6/uL Normal 3.90-5.20 [facility] Comment on above: Order Comment: Speci men Type: BLOOD SPECIMEN Ordering Facility: [facility] Address: [address] [place] [address] Performed By: #### 2 4323-8 #### [facility] CLIA [id number] [address] [place] [address] [place] WBC (Bld) [#/Vol] 7.05 10*3/uL Normal 3.70-11.00 [facility] Comment on above: Order Comment: Speci men Type: BLOOD SPECIMEN Ordering Facility: [facility] Address: [address] [place] [address] Performed By: #### 2 4323-8 #### [facility] CLIA [id number] [address] [place] [id number] [place] Comprehensive metabolic 2000 panelon 04-20-2024 Albumin [Mass/Vol] 4.2 g/dL Normal 3.9-4.9 [facility] Comment on above: Order Comment: Speci men Type: BLOOD SPECIMENOrdering Facility: [facility] Address: [address] [place] [address] Performed By: #### 2 4323-8, 29166-1, 1 ####[facility] [id number] [place] [address] [place] ALP [Catalytic activity/Vol] 75 U/L Normal 34-123 [facility] Comment on above: Order Comment: Speci men Type: BLOOD SPECIMENOrdering Facility: [facility] Address: [address] [place] [address] Performed By: #### 2 4323-8, 53769-8, 2771 ####[facility] [id number] [place] [address] [place] ALT [Catalytic activity/Vol] 24 U/L Normal 7-38 [facility] Comment on above: Order Comment: Speci men Type: BLOOD SPECIMENOrdering Facility: [facility] Address: [address] [place] [address] Performed By: #### 2 4323-8, , 2776-03 ####[facility] [id number] [place] [address] [place] Anion gap [Moles/Vol] 8 mmol/L Normal 8-15 [facility] Comment on above: Order Comment: Speci men Type: BLOOD SPECIMENOrdering Facility: [facility] Address: [address] [place] [address] Performed By: #### 2 4323-8, 92726-7, 2776-03 ####[facility] AVELINO HENSLEYWNCJOANA [id number] [place] [address] [place] AST [Catalytic activity/Vol] 11 U/L Low 13-35 [facility] Comment on above: Order Comment: Speci men Type: BLOOD SPECIMENOrdering Facility: [facility] Address: [address] [place] [address] Performed By: #### 2 4323-8, , 2776-03 ####[facility] DEEJAYHERMELINDONCJOANA [id number] [place] [address] [place] Bilirubin [Mass/Vol] 0.3 mg/dL Normal 0.2-1.3 [facility] Comment on above: Order Comment: Speci men Type: BLOOD SPECIMENOrdering Facility: [facility] Address: [address] [place] [address] Performed By: #### 2 4323-8, , 27709-22 ####[facility] DEEJAYMONTOURSVILLENCJOANA [id number] [place] [address] [place] Calcium [Mass/Vol] 8.8 mg/dL Normal 8.5-10.2 [facility] Comment on above: Order Comment: Speci men Type: BLOOD SPECIMENOrdering Facility: [facility] Address: [address] [place], [place] [address] Performed By: #### 2 4323-8, 13251-0, 27709-22 ####[facility] [id number] [place] [address] [place] Chloride [Moles/Vol] 109 mmol/L High 98-107 [facility] Comment on above: Order Comment: Speci men Type: BLOOD SPECIMENOrdering Facility: [facility] Address: [address] [place], [place] [address] Performed By: #### 2 4323-8, 18763-2, 1 ####[facility] AVELINO VILLALBAMONTOURSVILLENCLETICIA [id number] [place] [address] [place] CO2 [Moles/Vol] 25 mmol/L Normal 22-30 [facility] Comment on above: Order Comment: Speci men Type: BLOOD SPECIMENOrdering Facility: [facility] Address: [address] [place], [place] [address] Performed By: #### 2 4323-8, , 2776-03 ####[facility] DEEJAYMONTOURSVILLENCLIA [id number] [place] [address] [place] Creatinine [Mass/Vol] 0.70 mg/dL Normal 0.58-0.96 [facility] Comment on above: Order Comment: Speci men Type: BLOOD SPECIMENOrdering Facility: [facility] Address: [address] [place] [address] Performed By: #### 2 4323-8, , 1 ####[facility] [id number] [address] [place] Creatinine and Glomerular filtration rate.predicted panel (S/P/Bld) 108 mL/min/1.73m??? Normal >=60 [facility] Comment on above: Order Comment: Kaitlin shafer Type: BLOOD SPECIMENOrdering Facility: [facility] Address: [address] [place] [address] Result Comment: Antoinette mated Glomerular Filtration Rate [...] actual GFR. Performed By: #### 2 4323-8, 11764-7, 2776-03 ####[facility] AVELINO DEEJAYTOWNCLIA [id number] [place] [address] [place] Glucose [Mass/Vol] 97 mg/dL Normal 74-99 [facility] Comment on above: Order Comment: Speci men Type: BLOOD SPECIMENOrdering Facility: [facility] Address: [address] [place] [address] Result Comment: The [place] Diabetes [employer] (ADA) provides guidance for cutoff [...] Standards of Medical Care in Diabetes 2016, [place]. Diabetes Care. 2016.39(Suppl 1). Performed By: #### 2 4323-8, 95192-5, 2776-03 ####[facility] DEEJAYWNCLIA [id number] [place] [address] [place] Potassium [Moles/Vol] 3.7 mmol/L Normal 3.7-5.1 [facility] Comment on above: Order Comment: Speci men Type: BLOOD SPECIMENOrdering Facility: [facility] Address: [address] [place] [place] [id number] Performed By: #### 2 4323-8, 84344-2, 277-1 ####[facility] DEEJAYWNCLIA [id number] [place] [address] [place] Protein [Mass/Vol] 6.1 g/dL Low 6.3-8.0 [facility] Comment on above: Order Comment: Speci men Type: BLOOD SPECIMENOrdering Facility: [facility] Address: [address] [place], [place] [address] Performed By: #### 2 4323-8, 07242-9, 2777-1 ####[facility] [id number] [place] [address] [place] Sodium [Moles/Vol] 142 mmol/L Normal 136-144 [facility] Comment on above: Order Comment: Speci men Type: BLOOD SPECIMENOrdering Facility: [facility] Address: [address] [place] [address] Performed By: #### 2 4323-8, 48496-1, 2777-1 ####[facility] [id number] [place] [address] [place] Urea nitrogen [Mass/Vol] 11 mg/dL Normal 7-21 [facility] Comment on above: Order Comment: Speci men Type: BLOOD SPECIMENOrdering Facility: [facility] Address: [address] [place] [address] Performed By: #### 2 4323-8, 35052-2, 2777-1 ####[facility] [id number] [place] [address] [place] Ferritin SerPl-mCncon 2024 Ferritin [Mass/Vol] 169.0 ng/mL Normal 14.7-205.1 [facility] Comment on above: Order Comment: Speci men Type: BLOOD SPECIMENOrdering Facility: [facility] Address: [address] [place] [address] Performed By: #### 2 276-4, 09326-4 ####[facility] [id number] [place] [id number] [place] Iron and Iron binding capaci ty panelon 04-20-2024 Iron [Mass/Vol] 55 ug/dL Normal 41-186 [facility] Comment on above: Order Comment: Speci men Type: BLOOD SPECIMENOrdering Facility: [facility] Address: [address] [place], [place] [address] Performed By: #### 2 276-4, 29602-0 ####[facility] [id number] [place] [id number] [place] Iron binding capacity [Mass/Vol] 318 ug/dL Normal 232-386 [facility] Comment on above: Order Comment: Speci men Type: BLOOD SPECIMENOrdering Facility: [facility] Address: [address] [place], [place] [address] Performed By: #### 2 276-4, 79533-0 ####[facility]IA [id number] [place] [address] [place] Iron/TIBC [Molar ratio] 17.3 % Normal 15.0-57.0 [facility] Comment on above: Order Comment: Speci men Type: BLOOD SPECIMENOrdering Facility: [facility] Address: [address] [place] [address] Performed By: #### 2 276-4, 88160-8 ####[facility] [id number] [place] [address] [place] Magnesium SerPl-mCncon 04-20 Magnesium [Mass/Vol] 2.0 mg/dL Normal 1.7-2.3 [facility] Comment on above: Order Comment: Speci men Type: BLOOD SPECIMENOrdering Facility: [facility] Address: [address] [place] [address] Performed By: #### 2 4323-8, 97723-4, 2777-1 ####[facility] AVELINO [facility]CARYL [id number] [place] [address] [place] Phosphate SerPl-mCncon 04-20 Phosphate [Mass/Vol] 2.9 mg/dL Normal 2.7-4.8 [facility] Comment on above: Order Comment: Speci men Type: BLOOD SPECIMENOrdering Facility: [facility] Address: [address] [place], [place] [address] [address] Performed By: #### 2 4323-8, 25790-7, 2777-1 ####[facility] [id number] [place] [address] [place] Independent Freight Agent Office Visit Reporton 02-24-2024 Independent Freight Agent Office Visit Report [facility] [address], [address] [place] [address] OFFICE VISIT Date of Service: 02/24/24 MR#: [id number] Acct: [id number] Name: LIBIA OLIVAS FRIDA Rep #: [id number] : 1975 Provider: Dr. 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 Normal [facility] CBC W Auto Differential pane l (Bld)on 01-30-2024 Basophils (Bld) [#/Vol] 0.07 10*3/uL Normal <0.11 [facility] Comment on above: Order Comment: Speci men Type: BLOOD SPECIMEN Ordering Facility[facility] Address: [address] [place] [address] Performed By: #### 2 4323-8 #### [facility] CLIA [id number] [address] [place] [address] [place] Basophils/100 WBC (Bld) 0.8 % Normal [facility] Comment on above: Order Comment: Speci men Type: BLOOD SPECIMEN Ordering Facility: [facility] Address: [address] [place] [address] Performed By: #### 2 4323-8 #### [facility] CLIA [id number] [address] [place] [address] [place] Differential cell count method Nom (Bld) Auto Normal [facility] Comment on above: Order Comment: Speci men Type: BLOOD SPECIMEN Ordering Facility: [facility] Address: [address] [place] [address] Performed By: #### 2 4323-8 #### [facility] CLIA [id number] [address] [place] [address] [place] Eosinophils (Bld) [#/Vol] 0.27 10*3/uL Normal <0.46 [facility] Comment on above: Order Comment: Speci men Type: BLOOD SPECIMEN Ordering Facility: [facility] Address: [address] [place] [address] Performed By: #### 2 4323-8 #### [facility] CLIA [id number] [address] [place] [address] [place] Eosinophils/100 WBC (Bld) 2.9 % Normal [facility] Comment on above: Order Comment: Speci men Type: BLOOD SPECIMEN Ordering Facility: [facility] Address: [address] [place] [address] Performed By: #### 2 4323-8 #### [facility] CLIA [id number] [address] [place] [address] [place] Erythrocyte distribution width (RBC) [Ratio] 14.2 % Normal 11.5-15.0 [facility] Comment on above: Order Comment: Speci men Type: BLOOD SPECIMEN Ordering Facility: [facility] Address: [address] [place] [address] Performed By: #### 2 4323-8 #### [facility] CLIA [id number] [address] [place] [address] [place] Hematocrit (Bld) [Volume fraction] 37.7 % Normal 36.0-46.0 [facility] Comment on above: Order Comment: Speci men Type: BLOOD SPECIMEN Ordering Facility: [facility] Address: [address] [place] [address] Performed By: #### 2 4323-8 #### [facility] CLIA [id number] [address] [place] [address] [place] Hemoglobin (Bld) [Mass/Vol] 12.3 g/dL Normal 11.5-15.5 [facility] Comment on above: Order Comment: Speci men Type: BLOOD SPECIMEN Ordering Facility: [facility] Address: [address] [place] [address] Performed By: #### 2 4323-8 #### [facility] CLIA [id number] [address] [place] [address] [place] Immature granulocytes (Bld) [#/Vol] 0.04 10*3/uL Normal <0.10 [facility] Comment on above: Order Comment: Speci men Type: BLOOD SPECIMEN Ordering Facility: [facility] Address: [address] [place] [address] Performed By: #### 2 4323-8 #### [facility] CLIA [id number] [address] [place] [address] [place] Immature granulocytes/100 WBC (Bld) 0.4 % Normal [facility] Comment on above: Order Comment: Speci men Type: BLOOD SPECIMEN Ordering Facility: [facility] Address: [address] [place] [address] Performed By: #### 2 4323-8 #### [facility] CLIA [id number] [address] [place] [address] [place] Lymphocytes (Bld) [#/Vol] 1.54 10*3/uL Normal 1.00-4.00 [facility] Comment on above: Order Comment: Speci men Type: BLOOD SPECIMEN Ordering Facility: [facility] Address: [address] [place] [address] Performed By: #### 2 4323-8 #### [facility] CLIA [id number] [address] [place] [address] [place] Lymphocytes/100 WBC (Bld) 16.7 % Normal [facility] Comment on above: Order Comment: Speci men Type: BLOOD SPECIMEN Ordering Facility: [facility] Address: [address] [place] [address] Performed By: #### 2 4323-8 #### [facility] CLIA [id number] [address] [place] [address] MCH (RBC) [Entitic mass] 27.3 pg Normal 26.0-34.0 [facility] Comment on above: Order Comment: Speci men Type: BLOOD SPECIMEN Ordering Facility: [facility] Address: [address] [place] [address] Performed By: #### 2 4323-8 #### [facility] CLIA [id number] [address] [place] [address] [place] MCHC (RBC) [Mass/Vol] 32.6 g/dL Normal 30.5-36.0 [facility] Comment on above: Order Comment: Speci men Type: BLOOD SPECIMEN Ordering Facility: [facility] Address: [address] [place] [address] Performed By: #### 2 4323-8 #### [id number] [address] [place] [address] [place] MCV (RBC) [Entitic vol] 83.6 fL Normal 80.0-100.0 [facility] Comment on above: Order Comment: Speci men Type: BLOOD SPECIMEN Ordering Facility: [facility] Address: [address] [place] [address] Performed By: #### 2 4323-8 #### [facility] CLIA [id number] [address] [place] [address] [place] Monocytes (Bld) [#/Vol] 0.49 10*3/uL Normal <0.87 [facility] Comment on above: Order Comment: Speci men Type: BLOOD SPECIMEN Ordering Facility: [facility] Address: [address] [place] [address] Performed By: #### 2 4323-8 #### [facility] CLIA [id number] [address] [place] [address] [place] Monocytes/100 WBC (Bld) 5.3 % Normal [facility] Comment on above: Order Comment: Speci men Type: BLOOD SPECIMEN Ordering Facility: [facility] Address: [address] [place] [address] Performed By: #### 2 4323-8 #### [facility] CLIA [id number] [address] [place] [address] [place] Neutrophils (Bld) [#/Vol] 6.83 10*3/uL Normal 1.45-7.50 [facility] Comment on above: Order Comment: Speci men Type: BLOOD SPECIMEN Ordering Facility: [facility] Address: [address] [place] [address] Performed By: #### 2 4323-8 #### [facility] CLIA [id number] [address] [place] [address] [place] Neutrophils/100 WBC (Bld) 73.9 % Normal [facility] Comment on above: Order Comment: Speci men Type: BLOOD SPECIMEN Ordering Facility: [facility] Address: [address] [place] [address] Performed By: #### 2 4323-8 #### [facility] CLIA [id number] [address] [place] [address] [place] Nucleated RBC (Bld) [#/Vol] 10*3/uL Normal <0.01 [facility] Comment on above: Order Comment: Speci men Type: BLOOD SPECIMEN Ordering Facility: [facility] Address: [address] [place] [address] Performed By: #### 2 4323-8 #### [facility] CLIA [id number] [address] [place] [address] [place] Nucleated RBC/100 WBC (Bld) [Ratio] 0.0 /100 WBC Normal [facility] Comment on above: Order Comment: Speci men Type: BLOOD SPECIMEN Ordering Facility: [facility] Address: [address] [place] [address] Performed By: #### 2 4323-8 #### [facility] CLIA [id number] [address] [place] [address] [place] Platelet mean volume (Bld) [Entitic vol] 10.3 fL Normal 9.0-12.7 [facility] Comment on above: Order Comment: Speci men Type: BLOOD SPECIMEN Ordering Facility: [facility] Address: [address] [place] [address] Performed By: #### 2 4323-8 #### [facility] CLIA [id number] [address] [place] [address] [place] Platelets (Bld) [#/Vol] 236 10*3/uL Normal 150-400 [facility] Comment on above: Order Comment: Speci men Type: BLOOD SPECIMEN Ordering Facility: [facility] Address: [address] [place] [address] Performed By: #### 2 4323-8 #### [facility] CLIA [id number] [address] [place] [address] [place] RBC (Bld) [#/Vol] 4.51 10*6/uL Normal 3.90-5.20 [facility] Comment on above: Order Comment: Speci men Type: BLOOD SPECIMEN Ordering Facility: [facility] Address: [address] [place] [address] Performed By: #### 2 4323-8 #### [facility] CLIA [id number] [address] [place] [address] [place] WBC (Bld) [#/Vol] 9.24 10*3/uL Normal 3.70-11.00 [facility] Comment on above: Order Comment: Speci men Type: BLOOD SPECIMEN Ordering Facility: [facility] Address: [address] [place] [address] Performed By: #### 2 4323-8 #### [facility] CLIA [id number] [address] [place] [address] [place] CNOVSPon 01-30-2024 CNOVSP Visit (SP) Office (H EMAWS) RENULIBIA TELLES ([id number]) 1975 F Date Time Provider Department 01/30/24 8:00 AM DEVIKA BRUSH During your visit today, we recorded the following information about you: Temperature Pulse Blood pressure Weight 97.5 degrees 99/minute 126/82 106.5 kg Devika Brush APRN.[employer] SUPERVISOR 01/30/2024 1:04 PM Signed Chief Complaint Patient [...] since hadn't had in a year) at [facility] and incidental leukocytosis with WBC count 135.68K. Hgb and platelets normal. Recheck at [facility] 07/21/2022 revealed total white count 131.8 [...] Lymph 1.00 - 4.00 k/uL 1.59 1.54 Armstrong% % 5.5 5.3 Abs Armstrong <0.87 k/uL 0.52 0.49 Eosin% % 1.6 [...] of 10/29 (more content not included)... Normal [facility] Comprehensive metabolic 2000 panelon 01-30-2024 Albumin [Mass/Vol] 4.1 g/dL Normal 3.9-4.9 [facility] Comment on above: Order Comment: Speci men Type: BLOOD SPECIMENOrdering Facility: [facility] Address: [address] [place] [address] Performed By: #### 2 4323-8 ####[facility] MILLTOWNCLIA [id number] [place] [address] [place] ALP [Catalytic activity/Vol] 89 U/L Normal 34-123 [facility] Comment on above: Order Comment: Speci men Type: BLOOD SPECIMENOrdering Facility: [facility] Address: [address] [place] [address] Performed By: #### 2 4323-8 ####[facility] [id number] [place] [address] [place] ALT [Catalytic activity/Vol] 25 U/L Normal 7-38 [facility] Comment on above: Order Comment: Speci men Type: BLOOD SPECIMENOrdering Facility: [facility] Address: [address] [place] [address] Performed By: #### 2 4323-8 ####[facility] [id number] [place] [address] [place] Anion gap [Moles/Vol] 10 mmol/L Normal 8-15 [facility] Comment on above: Order Comment: Speci men Type: BLOOD SPECIMENOrdering Facility: [facility] Address: [address] [place] [address] Performed By: #### 2 4323-8 ####[facility] MILLTOWNCLIA [id number] [place] [address] [place] AST [Catalytic activity/Vol] 11 U/L Low 13-35 [facility] Comment on above: Order Comment: Speci men Type: BLOOD SPECIMENOrdering Facility: [facility] Address: [address] [place] [address] Performed By: #### 2 4323-8 ####[facility] MILLTOWNCLIA [id number] [place] [address] [place] Bilirubin [Mass/Vol] 0.4 mg/dL Normal 0.2-1.3 [facility] Comment on above: Order Comment: Speci men Type: BLOOD SPECIMENOrdering Facility: [facility] Address: [address] [place] [address] Performed By: #### 2 4323-8 ####[facility] [id number] [place] [address] [place] Calcium [Mass/Vol] 9.3 mg/dL Normal 8.5-10.2 [facility] Comment on above: Order Comment: Speci men Type: BLOOD SPECIMENOrdering Facility: [facility] Address: [address] [place] [address] Performed By: #### 2 4323-8 ####[facility] [id number] [place] [address] [place] Chloride [Moles/Vol] 105 mmol/L Normal 98-107 [facility] Comment on above: Order Comment: Speci men Type: BLOOD SPECIMENOrdering Facility: [facility] Address: [address] [place], [place] [address] Performed By: #### 2 4323-8 ####[facility] [id number] [place] [address] [place] CO2 [Moles/Vol] 21 mmol/L Low 22-30 [facility] Comment on above: Order Comment: Speci men Type: BLOOD SPECIMENOrdering Facility: [facility] Address: [address] [place] [address] Performed By: #### 2 4323-8 ####[facility] [id number] [place] [address] [place] Creatinine [Mass/Vol] 0.75 mg/dL Normal 0.58-0.96 [facility] Comment on above: Order Comment: Speci men Type: BLOOD SPECIMENOrdering Facility: [facility] Address: [address] [place] [address] Performed By: #### 2 4323-8 ####[facility] [id number] [address] [place] Creatinine and Glomerular filtration rate.predicted panel (S/P/Bld) 99 mL/min/1.73m??? Normal >=60 [facility] Comment on above: Order Comment: Speci men Type: BLOOD SPECIMENOrdering Facility: [facility] Address: [address] [place] [address] Result Comment: Antoinette mated Glomerular Filtration Rate [...] actual GFR. Performed By: #### 2 4323-8 ####[facility]CL[facility] [id number] [place] [address] [place] Glucose [Mass/Vol] 142 mg/dL High 74-99 [facility] Comment on above: Order Comment: Speci men Type: BLOOD SPECIMENOrdering Facility: [facility] Address: [address] [place] [address] Result Comment: The [employer] Diabetes Association (ADA) provides guidance for cutoff [...] Standards of Medical Care in Diabetes 2016, [employer]. Diabetes Care. 2016.39(Suppl 1). Performed By: #### 2 4323-8 ####[facility]IALCARYL [id number] [place] [address] [place] Potassium [Moles/Vol] 3.8 mmol/L Normal 3.7-5.1 [facility] Comment on above: Order Comment: Speci men Type: BLOOD SPECIMENOrdering Facility: [facility] Address: [address] [place], [place] [address] Performed By: #### 2 4323-8 ####[facility]ITALLETICIA [id number] [place] [address] [place] Protein [Mass/Vol] 6.2 g/dL Low 6.3-8.0 [facility] Comment on above: Order Comment: Speci men Type: BLOOD SPECIMENOrdering Facility: [facility] Address: [address] [place] [address] Performed By: #### 2 4323-8 ####[facility] HOSPITALAron [id number] [place] [address] [place] Sodium [Moles/Vol] 136 mmol/L Normal 136-144 [facility] Comment on above: Order Comment: Speci men Type: BLOOD SPECIMENOrdering Facility: [facility] Address: [address] [place] [id number] Performed By: #### 2 4323-8 ####[facility]CL[facility] [id number] [place] [address] [place] Urea nitrogen [Mass/Vol] 14 mg/dL Normal 7-21 [facility] Comment on above: Order Comment: Speci men Type: BLOOD SPECIMENOrdering Facility: [facility] Address: [facility] [place] [id number] Performed By: #### 2 4323-8 ####[facility]CLIA [id number] [place] [address] [place] SCRN MAMM (CAD)W/MI BILATo n 01-09-2024 SCRN MAMM (CAD)W/MI BILAT [facility] Imaging Services [address] [place] [address] SCRN MAMM (CAD)W/MI BILAT MR#: [id number] Acct: [id number] Name: NEELNORILIBIA TELLES FRIDA Rep #: [id number] : 1975 F 48 From: Chau Martinez MD PCP: Dr. Krystina Calle DO Status: [facility] Study: SCRN MAMM (CAD)W/MI BILAT Date of Exam: 12/23 10/15 Exam# [id number] Ordering Dr: Krystina Calle DO [id number] MAMMOGRAPHY - BILATERAL SCREENING 3-D TOMOSYNTHESIS REASON [...] EDT , CC: Dr. Krystina Calle DO Chocolate Finisher: Signed Normal [facility] Tele[facility] (HEMAWS) LIBIA OLIVAS ([id number]) 1975 F Date Time Provider Department 11/04/23 FABIANO LIZ During your visit today, we recorded the following information about you: Alisha Romero LPN 11/04/2023 3:53 PM Addendum Per OV note 10/30/2023- Intolerant to oral iron. Iron study result received from [facility]. Patient is iron deficient. Patient prefers to have her iron infusions at [facility] d/t insurance. Orders and demographics faxed to [facility] Infusion Suite. Patient is aware. Alisha Romero [...] Status:Closed by ALISHA ROMERO on 11/04/23 Normal [facility] Colonoscopy Reporton 024 Colonoscopy Report [facility] Medical Records Department [address] [place] [address] Colonoscopy Report MR#: [id number] Acct: [id number] Name: NEELNORILIBIA TELLES FRIDA Rep #: [id number] : 1975 48 From: Ugo Kelley DO PCP: Dr. Krystina Calle DO Status:[facility] Patient Name: Libia Olivas Procedure Date: 11/04/2023 [...] criteria for high risk CPT copyright 2021 [employer]. All rights reserved. The codes documented in this report are preliminary and upon still pump operator review may be revised to meet current compliance requirements. Ugo Kelley DO 11/04/2023 8:24:14 AM This report has been signed electronically. Number of Addenda: 0 Note Initiated On: 11/04/2023 7:58 AM 11/04/23823 Date Ugo Kelley DO Cosigner Signature: Date (if indicated) CC: Dr. Krystina Calle DO; Ugo Kelley DO Date Dictated: 11/04/23757 Date Transcribed: Chocolate Finisher: MISHA Signed [facility] MR/POSTOP.[facility] 11-04-2023 MR/POSTOP.[facility] Medical Records Department [address] [place] [address] Anesthesia Postop Eval I 11/04/23824 MR#: [id number] Acct: [id number] Name: NEELNORILIBIA TELLES FRIDA Rep #: [id number] : 1975 48 From: Tulio Pond PCP: Dr. Krystina Calle DO Status:REG SDC Y Race: C Location: [address] Anesthesia: Postop Eval I Current Vital [...] Tulio Moreno Signature: Date CC: Signed Normal [facility] MR/GXLPSYRO2yy 11-04-2023 MR/POSTOPAN2 [facility] Medical Records Department [address] [place] [address] Anesthesia Postop Eval II 11/04/23 1144 MR#: [id number] Acct: [id number] Name: LIBIA OLIVAS FRIDA Rep #: [id number] : 1975 48 From: Christian Roberts MD PCP: Dr. Krystina Calle, DO Status:[facility] Y Race: C Location: EN Anesthesia [...] Christian Robledoignshane Signature: Date CC: Signed Normal [facility] CNOVSPon 10-30-2023 CNOVSP Visit (SP) Office (H EMAWS) LIBIA OLIVAS ([id number]) 1975 F Date Time Provider Department 10/30/23 8:30 AM FABIANO LIZ During your visit [...] since hadn't had in a year) at [facility] and incidental leukocytosis with WBC count 135.68K. Hgb and platelets normal. Recheck at [facility] 07/21/2022 revealed total white count 131.8 [...] Abs Lymph 1.00 - 4.00 k/uL 1.59 Armstrong% % 5.5 Abs Armstrong <0.87 k/uL 0.52 Eosin% % 1.6 Abs [...] early satiet (more content not included)... Normal [facility] Ferritinon 10-30-2023 Ferritin [Mass/Vol] 42 ng/mL Normal 8-252 [facility] Comment on above: Performed By: #### L 503.6550, L503.6030 #### [facility] [address] [place], [address] Iron+Iron Binding Capacityon 10-30-2023 Iron [Mass/Vol] 40 ug/dL Low 50-170 [facility] Comment on above: Performed By: #### L 503.6550, L503.6030 #### [facility] [address] [place], [address] IRON SATURATION 10.5 Low 15.0-55.0 [facility] Comment on above: Performed By: #### L 503.6550, L503.6030 #### [facility] [address] [place], [address] TIBC 380 ug/dL Normal 250-450 [facility] Comment on above: Performed By: #### L 503.6550, L503.6030 #### [facility] [address] [place], [address] COVID & INFLUENZA A/B & RSV NAAT, ROUTINEon 06-11-2023 FLUAV RNA ABBIE+probe Ql (Unsp spec) Detected Abnormal Not Detected [facility] FLUBV RNA ABBIE+probe Ql (Unsp spec) Not detected Not Detected [facility] RSV A RNA ABBIE+probe Ql (Unsp spec) Not detected Not Detected [facility] SARS-CoV-2 (COVID-19) RNA ABBIE+probe Ql (Resp) Not detected See comment [facility] No Panel Informationon 04-26 [facility] FERRITIN BLDon 10-23-2022 Ferritin [Mass/Vol] 109.0 ng/mL 14.7 - 205.1 ng/mL [facility] Iron and Iron binding capaci ty panelon 10-23-2022 Iron [Mass/Vol] 39 ug/dL Low 41 - 186 ug/dL [facility] Iron binding capacity [Mass/Vol] 325 ug/dL 232 - 386 ug/dL [facility] Iron/TIBC [Molar ratio] 12.0 % Low 15.0 - 57.0 % [facility] 10-[facility]2022 Lipase [Catalytic activity/Vol] 38 U/L 16 - 61 U/L [facility] T4 FREE/FREE THYROXon 2022 Free T4 [Mass/Vol] 1.4 ng/dL 0.9 - 1.7 ng/dL [facility] TSH [facility] 10-23-2022 TSH Qn 0.762 m[IU]/L 0.270 - 4.200 mIU/L [facility] 10-[facility]-2022 Magnesium [Mass/Vol] 2.2 mg/dL 1.7 - 2 .3 mg/dL [facility] PHOSPHORUS INORGANICon 10-22 Phosphate [Mass/Vol] 3.6 mg/dL 2.7 - 4 .8 mg/dL [facility] XR CHEST 2V FRONTAL/LATon [facility] XR CHEST 2V FRONTAL/LATon [facility] XR Chest PA and Lateralon IMPRESSION: Within normal limits. No acute radiographic abnormality. Chocolate Finisher: CHRISTINA Transcribe Date/Time: Aug 27 2022 5:37P Dictated by : LEN BONNER MD This examination was interpreted and the report reviewed and electronically signed by: LEN BONNER MD on Aug 27 2022 5:37PM [facility] DIVISION OF RADIOLOGY * * *Final [...] spine. DIVISION OF RADIOLOGY Provider, Jennifer Genao [facility] - 08/27/2022 * * *Final Report* * [...] Within normal limits. No acute radiographic abnormality. Chocolate Finisher: PSCB Transcribe Date/Time: Aug 27 2022 5:37P Dictated by : LEN BONNER MD This examination was interpreted and the report reviewed and electronically signed by: LEN BONNER MD on Aug 27 2022 5:37PM EST [facility] Radiology Study observation (narrative) [facility] XR Chest PA and LateralOrder ed By: [facility] Provider on 08-27-2022 [facility] BONE MARROW ANALYSISon 07-27 Case Report Bone Marrow Patholog y Report Case: [id number] Authorizing Provider: Fabiano Liz DO Collected: 07/25/2022 12:40 PM Ordering Location: Hematology/Oncology Received: 07/25/2022 02:43 PM Pathologist: Flora Rosas MD Specimens: A) - BONE MARROW ASPIRATE RIGHT POSTERIOR ILIAC CREST B) - BONE MARROW BIOPSY RIGHT POSTERIOR ILIAC CREST C) - BONE MARROW CLOT RIGHT POSTERIOR ILIAC CREST [facility] Diagnosis Comment The patient is a [...] pending cytogenetic and molecular studies is recommended. [facility] FINAL DIAGNOSIS A-C. Bone marrow, as pirate smear, touch imprint and core biopsy, with clot section: - Chronic myeloid leukemia. - Stainable iron is decreased. - See comment. July 27, 2022 [facility] Gross Description A. BONE MARROW ASPIR [...] in one cassette. Gross examination performed at [facility], [address] [place] [address] FFS 07/25/2022 7:59 PM [facility] Microscopic Description PERIPHERAL BLOOD: CBC (07/25/2022 11:07 AM) Diff: Manual WBC 134.09 k/uL Neutrophils % 63 Hemoglobin 11.9 g/dL Lymphocytes % 5 MCV 89.3 fL Monocytes % 6 RDW-CV 17.2 % Eosinophils % 0 Platelet Count 220 k/uL Basophils % 1 Other: 10% [place], 14% Myelo, 1% Blasts Morphology/Interpretation: A peripheral [...] cytometry: Performed. See associated flow cytometry report [id number]. Cytogenetics: Pending. FISH: Not performed. Molecular: Buffy coat stored. BCR::ABL1 quantitative PCR studies performed on the peripheral blood were positive, detecting high levels of BCR::ABL1 p210 fusion transcripts. [facility] Performing Lab Diagnostic interpret ation performed at [facility], [address] [place] [address] CLIA# [id number] Solar Panel Technician: Jesus Sands M.D. [facility] FLOW CYTOMETRY BONE MARROW R EFLEXon 07-27-2022 Case Report Flow Cytometry Case: [id number] Authorizing Provider: Fabiano Liz DO Collected: 07/25/2022 01:17 PM Ordering Location: Hematology/Oncology Received: 07/26/2022 09:23 AM Pathologist: Flora Rosas MD Specimen: Bone Marrow [facility] Diagnosis Comment This assay is not de signed to detect minimal residual disease, plasma cell neoplasms, or myeloid antigen maturational patterns. This test was developed and its performance characteristics determined by [facility]'s Ezra JBriseyda [facility] Pathology and Laboratory Medicine [place] ([facility]). It has not been cleared or approved by the FDA. [facility] is regulated under CLIA as qualified to perform high-complexity testing. This test is used for clinical purposes. It should not be regarded as investigational or for research. [facility] Gross Description A. Bone Marrow Received 8 mL bone marrow in sodium heparin. [facility] Interpretation There is no evidence of involvement by a lymphoproliferative disorder or abnormal blast population. There is a notable granulocytic predominance. Correlation with the clinical and bone marrow histopathologic findings is suggested. [facility] Performing Lab Diagnostic interpret ation performed at [facility], [address] [place] [address] CLIA# [id number] Solar Panel Technician: Jesus Sands M.D. [facility] Results Specimen type: Bone marrow aspirate Morphology comments: See associated bone marrow pathology report [id number]. Viability: 89% Flow Cytometry Bone Marrow Immunophenotyping [...] events. Blasts are not increased. SB/NZ 07/26/2022 [facility] FLOW CYTOMETRY BONE MARROW H OLD (BMHOLD)on 07-26-2022 Flow Cytometry Order Status See Results in chart under F case ID [facility] ACTIVATED PTTon 07-23-2022 aPTT Coag (PPP) [Time] 24.8 s 23.0 - 32.4 sec [facility] Comprehensive metabolic 2000 panelon 07-23-2022 Albumin [Mass/Vol] 4.7 g/dL 3.9 - 4.9 g/dL [facility] ALP [Catalytic activity/Vol] 92 U/L 34 - 123 U/L [facility] ALT [Catalytic activity/Vol] 38 U/L 7 - 38 U/L [facility] Anion gap [Moles/Vol] 13 mmol/L 9 - 18 mmol/L [facility] AST [Catalytic activity/Vol] 25 U/L 13 - 35 U/L [facility] Bilirubin [Mass/Vol] 0.4 mg/dL 0.2 - 1 .3 mg/dL [facility] Calcium [Mass/Vol] 9.1 mg/dL 8.5 - 10. 2 mg/dL [facility] Chloride [Moles/Vol] 105 mmol/L 97 - 10 5 mmol/L [facility] CO2 [Moles/Vol] 22 mmol/L 22 - 30 mmol/L [facility] Creatinine [Mass/Vol] 0.76 mg/dL 0.58 - 0.96 mg/dL [facility] Estimated Glomerular Filtration Rate 99 mL/min/1.73m >=60 mL/min/1.73 m [facility] [facility] Glucose [Mass/Vol] 92 mg/dL 74 - 99 mg/dL [facility] Potassium [Moles/Vol] 3.4 mmol/L Low 3.7 - 5.1 mmol/L [facility] Protein [Mass/Vol] 6.9 g/dL 6.3 - 8.0 g/dL [facility] Sodium [Moles/Vol] 140 mmol/L 136 - 144 mmol/L [facility] Urea nitrogen [Mass/Vol] 12 mg/dL 7 - 21 mg/dL [facility] LD LACTATE DEHYDROon 023 LDH [Catalytic activity/Vol] 771 U/L High 135 - 214 U/L [facility] PT panel Coag (PPP)on 2022 INR Coag (PPP) [Relative time] 1.0 {INR} 0.9 - 1.3 [facility] PT Coag (PPP) [Time] 10.0 s <13.1 sec [facility] RETIC COUNTon 07-23-2022 Reticulocytes (Bld) [#/Vol] 0.10022 10*3/uL High 0.018 - 0.100 M/uL [facility] Reticulocytes (Bld) [#/Vol]o n 07-23-2022 Reticulocytes/100 RBC (Bld) 3.4 % High 0.4 - 2.0 % [facility] URIC ACID BLOODon 07-23-2022 Urate [Mass/Vol] 8.7 mg/dL High 2.5 - 6.6 mg/dL [facility] Absolute lymphocyte countOrd ered By: Dr. Calle on 07-21-2022 Lymphocytes Auto (Unsp spec) [#/Vol] 7.91 10*3/uL 0.83-4.51 [facility] Basophil percentageOrdered B y: Dr. Calle on 07-21-2022 Basophil percentage Not Reportable [facility] Cholesterol [Mass/Vol] 141 mg/dL <200 [facility] Comment on above: <200 mg/dL Desirable 200-240 mg/dL Borderline >240 mg/dL High Risk Neutrophils (Bld) [#/Vol] 90.9 10*3/uL 2.0-7.7 [facility] Triglyceride [Mass/Vol] 300 mg/dL <199 [facility] Comment on above: The drugs N-Acetylcy steine and Metamizole may falsely depress this assay.Serum Triglycerides Reference Interval Normal <150 mg/dL Borderline high 150 - 199 mg/dL High 200 - 499 mg/dL Very High > or = 500 mg/dL WBC (Bld) [#/Vol] 131.8 10*3/uL 4.4-11.0 [facility] Comment on above: CRITICAL VALUE VERIF IED. CALLED TO DR. CALLE07/21/22 0922 Yanely Duran.RESULTS READ BACK BY SAME . Blood band neutrophil count as percentage of total leukocytesOrdered By: Dr. Calle on 07-21-2022 Band form neutrophils/100 WBC (Bld) 15 % 0-5 [facility] Blood blasts/100 leukocytesO rdered By: Dr. Calle on 07-21-2022 Blasts/100 WBC (Bld) 6 % 0-0 [facility] Comment on above: RESULTS CALLED TO DR Briseyda CALLE 07/21/22 1042 Yanely Duran.REPORT READ BACK BY [].Previous reported result: 6 %Edited by: OSCAR on 07/21/22:1046 AMENDED REPORT 07/21/22 1046 BLAST previously reported as: 6 *H % Blood eosinophils/100 leukoc ytesOrdered By: Dr. Calle on 07-21-2022 Eosinophils/100 WBC (Bld) 3 % 0-5 [facility] Blood erythrocytes count (nu mber/volume)Ordered By: Dr. Calle on 07-21-2022 RBC (Bld) [#/Vol] 4.25 10*6/uL 4.2-5.4 [facility] Blood hemoglobin measurement (mass/volume)Ordered By: Dr. Calle on 07-21-2022 Hemoglobin (Bld) [Mass/Vol] 12.3 g/dL 12.0-15.0 [facility] Blood lymphocytes/100 leukoc ytesOrdered By: Dr. Calle on 07-21-2022 Lymphocytes/100 WBC (Bld) 6 % 19-41 [facility] Blood metamyelocytes/100 nancy kocytesOrdered By: Dr. Calle on 07-21-2022 Metamyelocytes/100 WBC (Bld) 6 % 0-1 [facility] Blood monocytes/100 leukocyt esOrdered By: Dr. Calle on 07-21-2022 Monocytes/100 WBC (Bld) 2 % 0-10 [facility] Blood platelet adequacy dete ction by light microscopyOrdered By: Dr. Calle on 07-21-2022 Platelets LM Ql (Bld) ADEQUATE ADEQ [facility] Blood platelet mean volumeOr dered By: Dr. Calle on 07-21-2022 Platelet mean volume (Bld) [Entitic vol] 10.2 fL 6.2-12.0 [facility] Blood promyelocytes/100 leuk ocytesOrdered By: Dr. Calle on 07-21-2022 Promyelocytes/100 WBC (Bld) 3 % 0-0 [facility] Blood segmented neutrophils/ [address]: [address] Calle on 07-21-2022 Segmented neutrophils/100 WBC (Bld) 54 % 47-70 [facility] Determination of erythrocyte mean corpuscular volume (MCV)Ordered By: Dr. Calle on 07-21-2022 MCV (RBC) [Entitic vol] 92.9 fL 81-99 [facility] Hematocrit Auto (Bld) [Volum e fraction]Ordered By: Dr. Calle on 07-21-2022 Hematocrit (Bld) [Volume fraction] 39.5 % 37-47 [facility] Laboratory - Hematology and Cell countsOrdered By: Dr. Calle on 07-21-2022 Erythrocyte distribution width (RBC) [Entitic vol] 59.3 fL 35.1-43.9 [facility] Erythrocyte distribution width (RBC) [Ratio] 17.4 % 11.6-14.6 [facility] MCH (RBC) [Entitic mass] 28.9 pg 27.0-32.0 [facility] Myelocytes/100 WBC (Bld) 5 % 0-0 [facility] MCHC Auto (RBC) [Mass/Vol]Or dered By: Dr. Calle on 07-21-2022 MCHC (RBC) [Mass/Vol] 31.1 g/dL 32-36 [facility] Platelets bldOrdered By: Dr. Calle on 07-21-2022 Platelets (Bld) [#/Vol] 211 10*3/uL 150-450 [facility] RBC morphologyOrdered By: Dr Briseyda Calle on 07-21-2022 RBC morphology finding Nom (Bld) NORM C+C NORMAL NORM C&C [facility] Review by pathologistOrdered By: Dr. Calle on 07-21-2022 Pathologist review Martinez (Unsp spec) [Interp] Reviewed [facility] Comment on above: Previous reported re [...] Cholesterol in HDL [Mass/Vol] 24 mg/dL >40 [facility] Comment on above: The drugs N-Acetylcy steine and Metamizole may falsely depress this assay. Reference Range HDL <40 mg/dL Low HDL Cholesterol HDL >or= 60 mg/dL High HDL Cholesterol Serum or plasma cholesterol in VLDL measurement (mass/volume)Ordered By: Dr. Calle on 07-21-2022 Cholesterol in VLDL [Mass/Vol] 60 mg/dL 5-40 [facility] Serum or plasma low density lipoprotein (LDL) cholesterol measurement (mass/volume)Ordered By: Dr. Calle on 07-21-2022 Cholesterol in LDL [Mass/Vol] 57 mg/dL 0-130 [facility] Total cell countOrdered By: Dr. Calle on 07-21-2022 Cells counted Molgen (Bld/Tiss) [#] 100 MANUAL DIFF [facility] Basophil percentageOrdered B y: Dr. Mkceon on 06-16-2022 Cholesterol [Mass/Vol] 151 mg/dL <200 [facility] Comment on above: <200 mg/dL Desirable 200-240 mg/dL Borderline >240 mg/dL High Risk Glucose [Mass/Vol] 108 mg/dL 74-106 [facility] Comment on above: Fasting Glucose resu lt from 100 to 125 mg/dL suggests IMPAIRED HOMEOSTASIS per A.D.A. criteria. Triglyceride [Mass/Vol] 351 mg/dL <199 [facility] Comment on above: The drugs N-Acetylcy steine and Metamizole may falsely depress this assay.Serum Triglycerides Reference Interval Normal <150 mg/dL Borderline high 150 - 199 mg/dL High 200 - 499 mg/dL Very High > or = 500 mg/dL Serum or plasma calcitriol m easurement (mass/volume)Ordered By: Dr. Mckeon on 06-16-2022 1,25-dihydroxyvitamin D3 [Mass/Vol] 43.8 pg/mL 24.8-81.5 [facility] Comment on above: Performed at: [address] [id number] Director: Anette Johnson MD, Phone: [phone] Serum or plasma cholesterol in HDL measurement (mass/volume)Ordered By: Dr. Mckeon on 06-16-2022 Cholesterol in HDL [Mass/Vol] 23 mg/dL >40 [facility] Comment on above: The drugs N-Acetylcy steine and Metamizole may falsely depress this assay. Reference Range HDL <40 mg/dL Low HDL Cholesterol HDL >or= 60 mg/dL High HDL Cholesterol Serum or plasma cholesterol in VLDL measurement (mass/volume)Ordered By: Dr. Mckeon on 06-16-2022 Cholesterol in VLDL [Mass/Vol] 70 mg/dL 5-40 [facility] Serum or plasma low density lipoprotein (LDL) cholesterol measurement (mass/volume)Ordered By: Dr. Mckeon on 06-16-2022 Cholesterol in LDL [Mass/Vol] 58 mg/dL 0-130 [facility] Whole blood hemoglobin A1c/t otal hemoglobin ratio (mass fraction)Ordered By: Dr. Mckeon on 06-16-2022 HbA1c (Bld) [Mass fraction] 5.3 % 3.8-5.6 [facility] Comment on above: Normal < 5.7 % Predi abetic 5.7 - 6.4 % Diabetic >or= 6.5 % Please note range changes. Laboratory - Chemistry and C hemistry - challengeOrdered By: Dr. Mckeon on 03-01-2022 Free T4 [Mass/Vol] 1.20 ng/dL 0.76-1.46 [facility] No Panel InformationOrdered By: Dr. Mckeon on 03-01-2022 Free Triiodothyronine (T3) pg/dL 2.6 pg/mL 2.18-3.98 [facility] Thyroid Stimulating Hormone (TSH) 0.59 uIU/mL 0.358-3.74 [facility] Varicella-Zoster V Ab, IgGon 01-02-2022 Varicella-Zoster V Ab, IgG Assay performed using [employer] CLIA methodology. VARICELLA ZOSTER IGG: Immune Testing Performed At: [facility] [address] [place] [address] Normal [facility] Comment on above: Performed By: #### V ARG #### [facility] (DEFAULT) [address] [place] [id number] Absolute lymphocyte counton 07-21-2021 Lymphocytes Auto (Unsp spec) [#/Vol] 1.49 10*3/uL 0.83-4.51 [facility] Work Phone: Basophil percentageon 2021 Basophils/100 WBC (Bld) 0.5 % 0-1 [facility] Work Phone: Bilirubin [Mass/Vol] 0.40 mg/dL 0.20-1.00 [facility] Work Phone: Comment on above: For patients on eltr ombopag therapy, use of Dimension [place] TBIL is not recommended. Chloride [Moles/Vol] 112 mmol/L 98-107 [facility] Work Phone: Eosinophils/100 WBC (Bld) 1.9 % 0-5 [facility] Work Phone: [phone] Glucose [Mass/Vol] 126 mg/dL 74-106 [facility] Work Phone: Comment on above: Fasting Glucose resu lt greater than or equal to 126 mg/dL suggests DIABETES MELLITUS per A.D.A. criteria. Neutrophils (Bld) [#/Vol] 5.3 10*3/uL 2.0-7.7 [facility] Work Phone: [phone] Neutrophils/100 WBC (Bld) 70.3 % 47-70 [facility] Work Phone: Potassium [Moles/Vol] 3.7 mmol/L 3.5-5.1 [facility] Work Phone: [phone] Protein [Mass/Vol] 7.0 g/dL 6.4-8.2 [facility] Work Phone: [phone] Sodium [Moles/Vol] 141 mmol/L 136-145 [facility] Work Phone: [phone] WBC (Bld) [#/Vol] 7.5 10*3/uL 4.4-11.0 [facility] Work Phone: [phone] Blood erythrocytes count (nu mber/volume)on 07-21-2021 RBC (Bld) [#/Vol] 5.06 10*6/uL 4.2-5.4 [facility] Work Phone: [phone] Blood hemoglobin measurement (mass/volume)on 07-21-2021 Hemoglobin (Bld) [Mass/Vol] 13.7 g/dL 12.0-15.0 [facility] Work Phone: [phone] Blood lymphocytes/100 leukoc yteson 07-21-2021 Lymphocytes/100 WBC (Bld) 19.9 % 19-41 [facility] Work Phone: [phone] Blood monocytes/100 leukocyt eson 07-21-2021 Monocytes/100 WBC (Bld) 6.7 % 0-10 [facility] Work Phone: Blood platelet mean volumeon 07-21-2021 Platelet mean volume (Bld) [Entitic vol] 10.2 fL 6.2-12.0 [facility] Work Phone: Determination of erythrocyte mean corpuscular volume (MCV)on 07-21-2021 MCV (RBC) [Entitic vol] 83.2 fL 81-99 [facility] Work Phone: Hematocrit Auto (Bld) [Volum e fraction]on 07-21-2021 Hematocrit (Bld) [Volume fraction] 42.1 % 37-47 [facility] Work Phone: Laboratory - Chemistry and C hemistry - challengeon 07-21-2021 ALP [Catalytic activity/Vol] 84 U/L 45-117 [facility] Work Phone: ALT [Catalytic activity/Vol] 56 U/L 13-56 [facility] Work Phone: CO2 [Moles/Vol] 24.0 mmol/L 21.0-32.0 [facility] Work Phone: Free T4 [Mass/Vol] 1.01 ng/dL 0.76-1.46 [facility] Work Phone: Globulin (S) [Mass/Vol] 3.6 g/dL 2.2-4.2 [facility] Work Phone: Urea nitrogen/Creatinine [Mass ratio] 17.6 mg/mg 10-20 [facility] Work Phone: Laboratory - Hematology and Cell countson 07-21-2021 Erythrocyte distribution width (RBC) [Entitic vol] 40.0 fL 35.1-43.9 [facility] Work Phone: Erythrocyte distribution width (RBC) [Ratio] 13.2 % 11.6-14.6 [facility] Work Phone: Immature granulocytes/100 WBC (Bld) 0.700 % 0.0-0.9 [facility] Work Phone: Comment on above: IG% - Immature Granu locytes (promyelocytes, myelocytes and metamyelocytes) > 1% indicates that a LEFT SHIFT is Present. MCH (RBC) [Entitic mass] 27.1 pg 27.0-32.0 [facility] Work Phone: Nucleated RBC/100 WBC (Bld) [Ratio] 0 % 0-5 [facility] Work Phone: MCHC Auto (RBC) [Mass/Vol]on 07-21-2021 MCHC (RBC) [Mass/Vol] 32.5 g/dL 32-36 [facility] Work Phone: No Panel Informationon 07-21 CA 125 Antigen 22.3 U/mL [facility] Work Phone: Comment on above: [employer] El ectrochemiluminescence Immunoassay(ECLIA)Values obtained with different assay methods or kits cannotbe used interchangeably. Results cannot be interpreted asabsolute evidence of the presence or absence of malignantdisease. Estimated GFR (MDRD) Amer 120 mL/min >60 [facility] Work Phone: Comment on above: GFR Calc Estimated GFR (MDRD) Non-Af Amer 100 mL/min >60 [facility] Work Phone: Comment on above: Non- GFR Calc Free Triiodothyronine (T3) pg/dL 2.1 pg/mL 2.18-3.98 [facility] Work Phone: Thyroid Stimulating Hormone (TSH) 1.18 uIU/mL 0.358-3.74 [facility] Work Phone: Platelets bldon 07-21-2021 Platelets (Bld) [#/Vol] 287 10*3/uL 150-450 [facility] Work Phone: Serum Helicobacter pylori Ig G antibody assay (units/volume)on 07-21-2021 H. pylori IgG Qn (S) 0.59 [facility] Work Phone: Comment on above: Result Units: Index Value Negative <0.80 Equivocal 0.80 - 0.89 Positive >0.89Performed at: CB - [facility] [id number] [place], [place] [id number] Director: Raffaele Barrera PhD, Phone: [phone] Serum or plasma albumin emmanuelle urement (mass/volume)on 07-21-2021 Albumin [Mass/Vol] 3.4 g/dL 3.2-5.0 [facility] Work Phone: Serum or plasma albumin/glob ulin mass ratioon 07-21-2021 Albumin/Globulin [Mass ratio] 0.9 {ratio} 0.9-2.4 [facility] Work Phone: Serum or plasma calcium emmanuelle urement (mass/volume)on 07-21-2021 Calcium [Mass/Vol] 8.6 mg/dL 8.5-10.1 [facility] Work Phone: Serum or plasma creatinine m easurement (mass/volume)on 07-21-2021 Creatinine [Mass/Vol] 0.68 mg/dL 0.55-1.02 [facility] Work Phone: Comment on above: The validity of the calculated GFR & GFRAA in patients over 70 years has not been determined. Clinical correlation is essential. Serum or plasma urea nitroge n measurement (mass/volume)on 07-21-2021 Urea nitrogen [Mass/Vol] 12 mg/dL 7-18 [facility] Work Phone: Thin prep Papanicolaou smear with manual screeningon 07-21-2021 Thin prep Papanicolaou smear with manual screening 21 U/L 15-37 [facility] Work Phone: Thin prep Papanicolaou smear with manual screening 5 5-15 [facility] Work Phone: Whole blood hemoglobin A1c/t otal hemoglobin ratio (mass fraction)on 07-21-2021 HbA1c (Bld) [Mass fraction] 5.4 % 3.8-5.6 [facility] Work Phone: Comment on above: Normal < 5.7 % Predi abetic 5.7 - 6.4 % Diabetic >or= 6.5 % Please note range changes. Culture, urineon 07-20-2021 Bacteria identified Cx Nom (U) Positive [facility] Work Phone: BONE MARROW BIOPSY [facility] Vital Signs Date Time Vital Sign Value Performing Clinician Facility 08-20-2024 08:06-0400 Body height 165.[address] Krystina Calle DO Work Phone: [facility] 08-20-2024 08:06-0400 Body mass index (BMI) [Ratio] 38.9 kg/m2 Dr. Krystina Calle DO Work Phone: [facility] 08-20-2024 08:06-0400 Body weight 106.[address] Krystina Calle DO Work Phone: [facility] 07-01-2024 11:00-0400 Body mass index (BMI) [Ratio] 38.06 kg/m2 Fabiano Gojee Work Phone: [facility] 07-01-2024 11:00-0400 Body temperature 98.71 [degF] Fabiano Unioncyi DO Work Phone: [facility] 07-01-2024 11:00-0400 Body weight 104.55 kg Fabiano Unioncyi DO Work Phone: [facility] 07-01-2024 11:00-0400 Diastolic blood pressure 82 mm[Hg] Fabiano Unioncyi DO Work Phone: [facility] 07-01-2024 11:00-0400 Heart rate 73 /min Fabiano Unioncyi DO Work Phone: [facility] 07-01-2024 11:00-0400 SaO2% (BldA) [Mass fraction] 97 % Fabiano Unioncyi DO Work Phone: [facility] 07-01-2024 11:00-0400 Systolic blood pressure 155 mm[Hg] Fabiano Masci DO Work Phone: [facility] 06-18-2024 10:33-0400 Body mass index (BMI) [Ratio] 38.23 kg/m2 Esha Read Work Phone: [facility] 06-18-2024 10:33-0400 Body temperature 98.6 [degF] Esha Read Work Phone: [facility] 06-18-2024 10:33-0400 Body weight 105.01 kg Esha Read Work Phone: [facility] 06-18-2024 10:33-0400 Diastolic blood pressure 86 mm[Hg] Esha Read Work Phone: [facility] 06-18-2024 10:33-0400 Heart rate 53 /min Esha Read Work Phone: [facility] 06-18-2024 10:33-0400 SaO2% (BldA) [Mass fraction] 98 % Esha Read Work Phone: [facility] 06-18-2024 10:33-0400 Systolic blood pressure 146 mm[Hg] Esha Read Work Phone: [facility] 04-27-2024 08:23-0500 Body mass index (BMI) [Ratio] 37.57 kg/m2 Fabiano Erichi DO Work Phone: [facility] 04-27-2024 08:23-0500 Body temperature 97.59 [degF] Fabiano Masci DO Work Phone: [facility] 04-27-2024 08:23-0500 Body weight 103.19 kg Fabiano Masci DO Work Phone: [facility] 04-27-2024 08:23-0500 Diastolic blood pressure 77 mm[Hg] Fabiano Masci DO Work Phone: [facility] 04-27-2024 08:23-0500 Heart rate 69 /min Fabiano Masci DO Work Phone: [facility] 04-27-2024 08:23-0500 SaO2% (BldA) [Mass fraction] 99 % Fabiano Masci DO Work Phone: [facility] 04-27-2024 08:23-0500 Systolic blood pressure 120 mm[Hg] Fabiano Masci DO Work Phone: [facility] 02-24-2024 09:13-0500 Diastolic blood pressure 83 mm[Hg] Dr. Krystina Calle DO Work Phone: [facility] 02-24-2024 09:13-0500 Systolic blood pressure 144 mm[Hg] Dr. Krystina Calle DO Work Phone: [facility] 02-24-2024 09:07-0500 Body height 165.[address] Krystina Calle DO Work Phone: [facility] 02-24-2024 09:07-0500 Body mass index (BMI) [Ratio] 39.2 kg/m2 Dr. Krystina Calle DO Work Phone: [facility] 02-24-2024 09:07-0500 Body weight 106.[address] Krystina Calle DO Work Phone: [facility] 01-30-2024 07:56-0500 Body mass index (BMI) [Ratio] 38.77 kg/m2 Devika Brush ELECTRIC REPAIR SUPERVISOR.SUGAR REFINERY SUPERVISOR Work Phone: [facility] 01-30-2024 07:56-0500 Body temperature 97.5 [degF] Devika Brush ELECTRIC REPAIR SUPERVISOR.SUGAR REFINERY SUPERVISOR Work Phone: [facility] 01-30-2024 07:56-0500 Body weight 106.5 kg Devika Brush ELECTRIC REPAIR SUPERVISOR.SUGAR REFINERY SUPERVISOR Work Phone: [facility] 01-30-2024 07:56-0500 Diastolic blood pressure 82 mm[Hg] Devika Brush ELECTRIC REPAIR SUPERVISOR.SUGAR REFINERY SUPERVISOR Work Phone: [facility] 01-30-2024 07:56-0500 Heart rate 99 /min Devika Brush ELECTRIC REPAIR SUPERVISOR.SUGAR REFINERY SUPERVISOR Work Phone: [facility] 01-30-2024 07:56-0500 SaO2% (BldA) [Mass fraction] 93 % Devika Brush ELECTRIC REPAIR SUPERVISOR.SUGAR REFINERY SUPERVISOR Work Phone: [facility] 11-07-2024 07:56-0500 Systolic blood pressure 126 mm[Hg] Shawnee Brush ELECTRIC REPAIR SUPERVISOR.SUGAR REFINERY SUPERVISOR Work Phone: [facility] 10-30-2023 08:31-0400 Body mass index (BMI) [Ratio] 39.38 kg/m2 Fabiano Masci DO Work Phone: [facility] 10-30-2023 08:31-0400 Body temperature 98.49 [degF] Fabiano Masci DO Work Phone: [facility] 10-30-2023 08:31-0400 Body weight 108.18 kg Fabiano Masci DO Work Phone: [facility] 10-30-2023 08:31-0400 Diastolic blood pressure 78 mm[Hg] Fabiano Masci DO Work Phone: [facility] 10-30-2023 08:31-0400 Heart rate 65 /min Fabiano Masci DO Work Phone: [facility] 10-30-2023 08:31-0400 SaO2% (BldA) [Mass fraction] 98 % Fabiano Masci DO Work Phone: [facility] 10-30-2023 08:31-0400 Systolic blood pressure 135 mm[Hg] Fabiano Masci DO Work Phone: [facility] 07-25-2023 08:24-0400 Body mass index (BMI) [Ratio] 38.86 kg/m2 Shawnee Brush ELECTRIC REPAIR SUPERVISOR.SUGAR REFINERY SUPERVISOR Work Phone: [facility] 07-25-2023 08:24-0400 Body temperature 98.71 [degF] Devika Brush ELECTRIC REPAIR SUPERVISOR.SUGAR REFINERY SUPERVISOR Work Phone: [facility] 07-25-2023 08:24-0400 Body weight 106.73 kg Shawnee Brush ELECTRIC REPAIR SUPERVISOR.SUGAR REFINERY SUPERVISOR Work Phone: [facility] 07-25-2023 08:24-0400 Diastolic blood pressure 70 mm[Hg] Devika Brush ELECTRIC REPAIR SUPERVISOR.SUGAR REFINERY SUPERVISOR Work Phone: [facility] 07-25-2023 08:24-0400 Heart rate 70 /min Devika Brush ELECTRIC REPAIR SUPERVISOR.SUGAR REFINERY SUPERVISOR Work Phone: [facility] 07-25-2023 08:24-0400 SaO2% (BldA) [Mass fraction] 99 % Devika Brothersenter ELECTRIC REPAIR SUPERVISOR.SUGAR REFINERY SUPERVISOR Work Phone: [facility] 07-25-2023 08:24-0400 Systolic blood pressure 152 mm[Hg] Devika Brothersenter ELECTRIC REPAIR SUPERVISOR.SUGAR REFINERY SUPERVISOR Work Phone: [facility] 06-11-2023 13:43-0400 Body temperature 98.01 [degF] Bee Athy PA-C Work Phone: [facility] 06-11-2023 13:43-0400 Body weight 106.7 kg Bee Athy PA-C Work Phone: [facility] 06-11-2023 13:43-0400 Diastolic blood pressure 72 mm[Hg] Bee Athy PA-C Work Phone: [facility] 06-11-2023 13:43-0400 Heart rate 76 /min Bee Athy PA-C Work Phone: [facility] 06-11-2023 13:43-0400 Respiratory rate 16 /min Bee Athy PA-C Work Phone: [facility] 06-11-2023 13:43-0400 SaO2% (BldA) [Mass fraction] 98 % Bee Athy PA-C Work Phone: [facility] 06-11-2023 13:43-0400 Systolic blood pressure 134 mm[Hg] Bee Athy PA-C Work Phone: [facility] 04-26-2023 08:36-0500 Body temperature 98.71 [degF] Fabiano Jungi DO Work Phone: [facility] 04-26-2023 08:36-0500 Body weight 105.69 kg Fabiano Jungi DO Work Phone: [facility] 04-26-2023 08:36-0500 Diastolic blood pressure 69 mm[Hg] Fabiano Jungi DO Work Phone: [facility] 04-26-2023 08:36-0500 Heart rate 62 /min Fabiano Liz DO Work Phone: [facility] 04-26-2023 08:36-0500 SaO2% (BldA) [Mass fraction] 99 % Fabiano Liz DO Work Phone: [facility] 04-26-2023 08:36-0500 Systolic blood pressure 135 mm[Hg] Fabiano Jungjesenia HART Work Phone: [facility] 02-19-2023 09:39-0500 Body height 167.[address] Krystina Calle Work Phone: [facility] 02-19-2023 09:28-0500 Body mass index (BMI) [Ratio] 37.5 kg/m2 Dr. Krystina Calle Work Phone: [facility] 02-19-2023 09:28-0500 Body weight 105.[address] Krystina Calle Work Phone: [facility] 02-19-2023 09:28-0500 Diastolic blood pressure 85 mm[Hg] Dr. Krystina Calle Work Phone: [facility] 02-19-2023 09:28-0500 Systolic blood pressure 137 mm[Hg] Dr. Krystina Calle Work Phone: [facility] 12-31-2022 12:59-0400 Body height 167.[address] Krystina Calle Work Phone: [facility] 12-31-2022 12:55-0400 Body mass index (BMI) [Ratio] 37.7 kg/m2 Dr. Krystina Calle Work Phone: [facility] 12-31-2022 12:55-0400 Body weight 105.[address] Krystina Calle Work Phone: [facility] 12-31-2022 12:55-0400 Diastolic blood pressure 88 mm[Hg] Dr. Krystina Calle Work Phone: [facility] 12-31-2022 12:55-0400 Systolic blood pressure 120 mm[Hg] Dr. Krystina Calle Work Phone: [facility] 10-22-2022 15:47-0400 Body temperature 99.1 [degF] Fabiano Erichi DO Work Phone: [facility] 10-22-2022 15:47-0400 Body weight 104.1 kg Fabiano Masci DO Work Phone: [facility] 10-22-2022 15:47-0400 Diastolic blood pressure 79 mm[Hg] Fabiano Masci DO Work Phone: [facility] 10-22-2022 15:47-0400 Heart rate 70 /min Fabiano Masci DO Work Phone: [facility] 10-22-2022 15:47-0400 SaO2% (BldA) [Mass fraction] 98 % Fabiano Erichi DO Work Phone: [facility] 10-22-2022 15:47-0400 Systolic blood pressure 122 mm[Hg] Fabiano Masci DO Work Phone: [facility] 08-27-2022 17:07-0400 Body temperature 98.91 [degF] Lori Solano ELECTRIC REPAIR SUPERVISOR.SUGAR REFINERY SUPERVISOR Work Phone: [facility] 08-27-2022 17:07-0400 Body weight 102.06 kg Lori Solano ELECTRIC REPAIR SUPERVISOR.SUGAR REFINERY SUPERVISOR Work Phone: [facility] 08-27-2022 17:07-0400 Diastolic blood pressure 74 mm[Hg] Lori Solano ELECTRIC REPAIR SUPERVISOR.SUGAR REFINERY SUPERVISOR Work Phone: [facility] 08-27-2022 17:07-0400 Heart rate 76 /min Lori Solano ELECTRIC REPAIR SUPERVISOR.SUGAR REFINERY SUPERVISOR Work Phone: [facility] 08-27-2022 17:07-0400 Respiratory rate 16 /min Lori Solano ELECTRIC REPAIR SUPERVISOR.SUGAR REFINERY SUPERVISOR Work Phone: [facility] 08-27-2022 17:07-0400 SaO2% (BldA) [Mass fraction] 95 % Lori Solano ELECTRIC REPAIR SUPERVISOR.SUGAR REFINERY SUPERVISOR Work Phone: [facility] 08-27-2022 17:07-0400 Systolic blood pressure 124 mm[Hg] Lori Solano ELECTRIC REPAIR SUPERVISOR.SUGAR REFINERY SUPERVISOR Work Phone: [facility] 07-25-2022 13:08-0400 Diastolic blood pressure 80 mm[Hg] Fabiano Masci DO Work Phone: [facility] 07-25-2022 13:08-0400 Heart rate 79 /min Fabiano Masci DO Work Phone: [facility] 07-25-2022 13:08-0400 Systolic blood pressure 127 mm[Hg] Fabiano Masci DO Work Phone: [facility] 07-25-2022 11:23-0400 Body height 165.7 cm Fabiano Masci DO Work Phone: [facility] 07-25-2022 11:23-0400 Body temperature 98.4 [degF] Fabiano Masci DO Work Phone: [facility] 07-25-2022 11:23-0400 Body weight 102.06 kg Fabiano Masci DO Work Phone: [facility] 07-25-2022 11:23-0400 Diastolic blood pressure 83 mm[Hg] Fabiano Masci DO Work Phone: [facility] 07-25-2022 11:23-0400 Heart rate 80 /min Fabiano Masci DO Work Phone: [facility] 07-25-2022 11:23-0400 Systolic blood pressure 136 mm[Hg] Fabiano Masci DO Work Phone: [facility] 06-28-2022 09:18-0400 Body height 167.[address] Krystina Calle Work Phone: [facility] 06-28-2022 09:16-0400 Body mass index (BMI) [Ratio] 36.5 kg/m2 Dr. Krystina Calle Work Phone: [facility] 06-28-2022 09:16-0400 Body weight 102.[address] Krystina Calle Work Phone: [facility] 06-28-2022 09:16-0400 Diastolic blood pressure 82 mm[Hg] Dr. Krystina Calle Work Phone: [facility] 06-28-2022 09:16-0400 Systolic blood pressure 132 mm[Hg] Dr. Krystina Calle Work Phone: [facility] 05-21-2022 15:55-0500 Body mass index (BMI) [Ratio] 37.8 kg/m2 Dr. Krystina Calle Work Phone: [facility] 05-21-2022 15:55-0500 Body weight 106.[address] Krystina Calle Work Phone: [facility] 05-21-2022 15:55-0500 Diastolic blood pressure 85 mm[Hg] Dr. Krystina Calle Work Phone: [facility] 05-21-2022 15:55-0500 Systolic blood pressure 134 mm[Hg] Dr. Krystina Calle Work Phone: [facility] 04-24-2022 15:29-0500 Body mass index (BMI) [Ratio] 37.8 kg/m2 Dr. Krystina Calle Work Phone: [facility] 04-24-2022 15:29-0500 Body weight 106.[address] Krystina Calle Work Phone: [facility] 04-24-2022 15:29-0500 Diastolic blood pressure 83 mm[Hg] Dr. Krystina Calle Work Phone: [facility] 04-24-2022 15:29-0500 Systolic blood pressure 130 mm[Hg] Dr. Krystina Calle Work Phone: [facility] 03-27-2022 15:47-0500 Body mass index (BMI) [Ratio] 39.2 kg/m2 Dr. Krystina Calle Work Phone: [facility] 03-27-2022 15:47-0500 Body weight 110.[address] Krystina Calle Work Phone: [facility] 03-27-2022 15:47-0500 Diastolic blood pressure 83 mm[Hg] Dr. Krystina Calle Work Phone: [facility] 03-27-2022 15:47-0500 Heart rate 85 /min Dr. Krystina Calle Work Phone: [facility] 03-27-2022 15:47-0500 Systolic blood pressure 134 mm[Hg] Dr. Krystina Calle Work Phone: [facility] 03-01-2022 15:01-0500 Body height 167.[address] Krystina Calle Work Phone: [facility] Work Phone: 03-01-2022 15:01-0500 Body mass index (BMI) [Ratio] 43 kg/m2 Dr. Krystina Calle Work Phone: [facility] 03-01-2022 15:01-0500 Body weight 110.[address] Krystina Calle Work Phone: [facility] 03-01-2022 15:01-0500 Diastolic blood pressure 73 mm[Hg] Dr. Krystina Calle Work Phone: [facility] 03-01-2022 15:01-0500 Heart rate 79 /min Dr. Krystina Calle Work Phone: [facility] 03-01-2022 15:01-0500 Systolic blood pressure 118 mm[Hg] Dr. Krystina Calle Work Phone: [facility] 02-08-2022 08:28-0500 Body height 167.[address] Krystina Calle Work Phone: [facility] Work Phone: 02-08-2022 08:25-0500 Body mass index (BMI) [Ratio] 39.6 kg/m2 Dr. Krystina Calle Work Phone: [facility] Work Phone: 02-08-2022 08:25-0500 Body weight 111.[address] Krystina Calle Work Phone: [facility] Work Phone: 02-08-2022 08:25-0500 Diastolic blood pressure 81 mm[Hg] Dr. Krystina Calle Work Phone: [facility] Work Phone: 02-08-2022 08:25-0500 Systolic blood pressure 148 mm[Hg] Dr. Krystina Calel Work Phone: [facility] Work Phone: Encounters Encounter Date Encounter Type Care Provider Facility Start: 11-02-2024 ambulatory Krystina Calle Facility:[facility] Start: 10-26-2024 End: 10-26-2024 Specialty Pharmacy [facility] Comment on above: SPP Oral Oncology/he matology - Medication Refill (Scemblix) Start: 10-12-2024 End: 10-12-2024 ambulatory KRYSTINA CALLE Facility:[facility] Start: 09-30-2024 End: 09-30-2024 Specialty Pharmacy [facility] Comment on above: SPP Oral Oncology/he matology - Medication Refill (Scemblix) Start: 09-28-2024 End: 09-29-2024 Refill Fabiano Liz DO Work Phone: Hematology/Oncology Comment on above: Refill Request Medication Problem Start: 08-20-2024 End: 08-20-[address] Dallas Rojas MD -[facility] Work Phone: Start: 08-20-2024 End: 08-20-[address] Krystina Calle DO Work Phone: [facility] Work Phone: Start: 08-10-2024 End: 08-10-[address] Krystina Calle DO Work Phone: [facility] Work Phone: Start: 08-10-2024 End: 08-10-[address] Krystina Calle DO Work Phone: [facility] Work Phone: Start: 08-10-2024 End: 08-10-2024 ambulatory QING Facility:[facility] Start: 07-29-2024 End: 07-29-2024 ambulatory KRYSTINA CALLE Facility:[facility] Start: 07-14-2024 End: 07-14-[address] Krystina Calle DO Work Phone: [facility] Work Phone: Start: 07-14-2024 End: 07-14-2024 Patient encounter procedure Mireya BOWIE -Radiology, [facility] Work Phone: Start: 07-14-2024 End: 07-14-2024 ambulatory Mireya Cortez Facility:[facility] Start: 07-01-2024 End: 07-01-2024 Office outpatient visit 25 minutes Fabiano Liz DO Work Phone: Hematology/Oncology Comment on above: CML (chronic myelocy tic leukemia) (HCC) (Primary Dx); Gastroesophageal reflux disease, unspecified whether esophagitis present; Sciatica, right side Start: 07-01-2024 End: 07-01-2024 ambulatory FABIANO LIZ Facility:[facility] Start: 06-26-2024 End: 06-26-2024 Telephone encounter Esha Read Work Phone: Hematology/Oncology Start: 06-18-2024 End: 06-18-[address] Krystina Calle DO Work Phone: [facility] Work Phone: Start: 06-18-2024 End: 06-18-[address] Krystina Calle DO Work Phone: -Radiology, [facility] Work Phone: Start: 06-18-2024 End: 06-18-2024 Patient encounter procedure Esha Read Work Phone: Hematology/Oncology Start: 06-18-2024 End: 06-18-2024 ambulatory Esha Roro Work Phone: Hematology/Oncology Comment on above: Acute bilateral low back pain with right-sided sciatica (Primary Dx); CML (chronic myelocytic leukemia) (HCC) Start: 06-18-2024 End: 06-18-2024 ambulatory [facility] Facility:[facility] Start: 06-15-2024 End: 06-15-[address] Krystina Calle DO Work Phone: [facility] Work Phone: Start: 06-15-2024 End: 06-15-[address] Fabiano Liz DO -Laboratory Work Phone: Start: 06-15-2024 End: 06-15-2024 [facility] Start: 06-12-2024 End: 06-15-2024 Telephone encounter Ligia Mtz RN Hematology/Oncology Comment on above: Milk Tanker Driver - O ther (Oral Anti-Cancer Agents Follow-up ) Start: 06-09-2024 End: 06-23-2024 ambulatory KRYSTINA CALLE Facility:[facility] Start: 06-08-2024 End: 06-08-2024 ambulatory Fabiano Liz DO Work Phone: Hematology/Oncology Comment on above: Scemblix Start: 05-13-2024 End: 05-13-2024 Refill Devika Brush ELECTRIC REPAIR SUPERVISOR.SUGAR REFINERY SUPERVISOR Work Phone: Hematology/Oncology Comment on above: Refill Request Start: 05-13-2024 End: 05-14-2024 Refill Devika Brush ELECTRIC REPAIR SUPERVISOR.SUGAR REFINERY SUPERVISOR Work Phone: Hematology/Oncology Comment on above: Refill Request Start: 05-05-2024 End: 06-02-2024 Telephone encounter Ligia Mtz RN Hematology/Oncology Comment on above: Milk Tanker Driver - O ther (Oral Anti-Cancer Agents Education (asciminib)) Start: 04-28-2024 End: 04-28-2024 ambulatory Jefferson Vuong [facility] Start: 04-28-2024 End: 04-28-2024 Patient encounter procedure Jefferson Vuong [facility] Comment on above: SPP Oral Oncology/he matology - Treatment Referral (Scemblix 40 mg) Start: 04-27-2024 End: 04-27-2024 ambulatory FABIANO LIZ Facility:[facility] Start: 04-27-2024 End: 04-27-2024 Office outpatient visit 25 minutes Fabiano Liz DO Work Phone: Hematology/Oncology Comment on above: CML (chronic myelocy tic leukemia) (HCC) (Primary Dx); History of iron deficiency; Gastroesophageal reflux disease, unspecified whether esophagitis present Start: 04-20-2024 End: 04-20-2024 ambulatory FABIANO LIZ Facility:[facility] Start: 04-03-2024 End: 04-03-2024 Refill Fabiano Liz DO Work Phone: Hematology/Oncology Comment on above: Refill Request Start: 03-31-2024 End: 03-31-2024 Refill Fabiano Liz DO Work Phone: Hematology/Oncology Comment on above: Refill Request Start: 02-24-2024 End: 02-24-[address] Monie Mckeon MD -[facility] Work Phone: Start: 02-24-2024 End: 02-24-[address] Monie Mckeon MD [facility] Start: 02-24-2024 End: 02-24-2024 ambulatory Monie Mckeon Facility:[facility] Start: 01-30-2024 End: 01-30-2024 Patient encounter procedure Devika Brush APRN.SUGAR REFINERY SUPERVISOR Work Phone: Hematology/Oncology Start: 01-30-2024 End: 01-30-2024 ambulatory Devika Brush APRN.SUGAR REFINERY SUPERVISOR Work Phone: Hematology/Oncology Comment on above: CML (chronic myelocy tic leukemia) (HCC) (Primary Dx) Start: 01-28-2024 End: 01-28-2024 Orders Only Fabiano Liz DO Work Phone: Hematology/Oncology Start: 01-09-2024 End: 01-09-2024 ambulatory Krystina Malys Facility:[facility] Start: 12-23-2023 End: 12-23-2023 ambulatory Krystina Malys Facility:[facility] Start: 12-19-2023 End: 12-19-2023 ambulatory Krystina Malys Facility:[facility] Start: 12-09-2023 End: 12-09-2023 ambulatory Fabiano Liz Facility:[facility] Start: 12-02-2023 End: 12-02-2023 ambulatory Krystina Malys Facility:[facility] Start: 11-29-2023 End: 11-29-2023 [facility] Start: 11-22-2023 End: 11-22-2023 ambulatory Krystina Malys Facility:[facility] Start: 11-12-2023 End: 11-12-2023 [facility] Start: 11-10-2023 End: 11-11-2023 Refill Fabiano Liz DO Work Phone: Hematology/Oncology Comment on above: Refill Request Start: 11-08-2023 End: 11-08-2023 [facility] Start: 11-04-2023 Telephone encounter Fabiano ventura DO Work Phone: Hematology/Oncology Comment on above: Orders Start: 11-04-2023 End: 11-04-2023 ambulatory Ugo Friend Facility:[facility] Start: 10-30-2023 End: 10-30-2023 ambulatory Fabiano Lzi DO Work Phone: Hematology/Oncology Comment on above: CML (chronic myelocy tic leukemia) (HCC) (Primary Dx); Iron deficiency anemia secondary to inadequate dietary iron intake Start: 10-30-2023 End: 10-30-2023 Patient encounter procedure Fabiano A Masci DO Work Phone: Hematology/Oncology Start: 10-30-2023 End: 10-30-2023 [facility] Start: 09-30-2023 ambulatory Fabiano Anderson O Work Phone: Hematology/Oncology Comment on above: New pharmacy Start: 07-30-2023 ambulatory Shawnee Carpente r ELECTRIC REPAIR SUPERVISOR.SUGAR REFINERY SUPERVISOR Work Phone: Hematology/Oncology Start: 07-30-2023 Patient encounter procedure Devika Brush ELECTRIC REPAIR SUPERVISOR.SUGAR REFINERY SUPERVISOR Work Phone: Hematology/Oncology Comment on above: Next appointment Start: 07-29-2023 ambulatory Devika Carpente r ELECTRIC REPAIR SUPERVISOR.SUGAR REFINERY SUPERVISOR Work Phone: Hematology/Oncology Comment on above: Response to voicemai l Start: 07-29-2023 Telephone encounter Devika carlson ELECTRIC REPAIR SUPERVISOR.SUGAR REFINERY SUPERVISOR Work Phone: Hematology/Oncology Start: 07-25-2023 End: 07-25-2023 Subsequent hospital visit by physician [facility] Work Phone: Radiology Comment on above: 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] Start: 07-25-2023 End: 07-25-2023 ambulatory Shawnee Brush ELECTRIC REPAIR SUPERVISOR.SUGAR REFINERY SUPERVISOR Work Phone: Hematology/Oncology Comment on above: CML (chronic myelocy tic leukemia) (HCC) (Primary Dx) Start: 07-25-2023 End: 07-25-2023 Patient encounter procedure Shawnee Brush ELECTRIC REPAIR SUPERVISOR.SUGAR REFINERY SUPERVISOR Work Phone: Hematology/Oncology Start: 07-16-2023 Orders Only Fabiano Anderson O Work Phone: Hematology/Oncology Comment on above: CML (chronic myelocy tic leukemia) (HCC) (Primary Dx) Start: 07-15-2023 Refill Shawnee Carpente r ELECTRIC REPAIR SUPERVISOR.SUGAR REFINERY SUPERVISOR Work Phone: Hematology/Oncology Comment on above: Refill Request Start: 06-12-2023 ambulatory Fabiano Anderson O Work Phone: Hematology/Oncology Comment on above: Viral test Start: 06-11-2023 End: 06-11-2023 ambulatory Fabiano Liz DO Work Phone: Hematology/Oncology Comment on above: Fever Start: 06-11-2023 End: 06-11-2023 Patient encounter procedure Bee LITTLEC Work Phone: [facility] Comment on above: URI, acute (Primary Dx) Start: 06-11-2023 Non-patient / Non-visit Dr. Joan Calle Work Phone: [facility] Start: 06-11-2023 End: 06-11-[address] Krystina Calle Work Phone: [facility]-Cardiovascul ar Services Work Phone: Start: 06-03-2023 Telephone encounter Fabiano ventura DO Work Phone: Hematology/Oncology Comment on above: medication PA Start: 05-30-2023 ambulatory Fabiano Liz D O Work Phone: Hematology/Oncology Comment on above: Bosulif Start: 04-26-2023 End: 04-26-2023 Subsequent hospital visit by physician Xr [facility] Work Phone: Radiology Comment on above: 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] Start: 04-26-2023 End: 04-26-2023 Office outpatient visit 25 minutes Fabiano Liz DO Work Phone: Hematology/Oncology Comment on above: CML (chronic myelocy tic leukemia) (HCC) (Primary Dx); Dyspnea and respiratory abnormalities; Gastroesophageal reflux disease, unspecified whether esophagitis present Start: 02-19-[address] Octavio Calle Work Phone: [facility] Start: 02-19-2023 End: 02-19-[address] Krystina Calle Work Phone: [facility] Start: 02-19-2023 End: 02-19-[address] Krystina Calle Work Phone: [facility] Work Phone: Start: 02-03-2023 Telephone encounter Fabiano ventura DO Work Phone: Hematology/Oncology Comment on above: Results Start: 01-23-2023 Orders Only Fabiano Emerson Work Phone: Hematology/Oncology Comment on above: CML (chronic myelocy tic leukemia) (HCC) (Primary Dx) Start: 01-07-2023 End: 01-07-[address] Krystina Calle Work Phone: [facility] Work Phone: Start: 01-07-2023 End: 01-07-[address] Krystina Calle Work Phone: [facility]-Outpatient Breast Imaging Work Phone: Start: 12-31-2022 End: 12-31-[address] Krystina Calle Work Phone: [facility] Work Phone: Start: 12-28-2022 Refill Devika francis APRN.CNP Work Phone: Hematology/Oncology Comment on above: Refill Request Allopurinal Start: 11-01-2022 Non-patient / Non-visit Dr. Joan Calle Work Phone: [facility] Start: 11-01-2022 End: 11-01-[address] Krystina Calle Work Phone: [facility] Work Phone: Start: 11-01-2022 End: 11-01-[address] Krystina Calle Work Phone: [facility]-Cardiovascul [facility] Services Work Phone: Start: 10-24-2022 Telephone encounter Fabiano ventura DO Work Phone: Hematology/Oncology Comment on above: Results (CXR) Start: 10-23-2022 ambulatory Fabiano Anderson O Work Phone: Hematology/Oncology Comment on above: Blood work Start: 10-22-2022 End: 10-22-2022 Subsequent hospital visit by physician Ehsan [facility] Russell [employer] Work Phone: Radiology Comment on above: Acquired hypothyroid ism [E03.9] Start: 10-22-2022 End: 10-22-2022 ambulatory Fabiano Liz DO Work Phone: Hematology/Oncology Comment on above: CML (chronic myelocy tic leukemia) (HCC) (Primary Dx); Acquired hypothyroidism; Iron deficiency anemia, unspecified iron deficiency anemia type Start: 10-22-2022 End: 10-22-2022 Patient encounter procedure Fabiano Liz DO Work Phone: [facility] Start: 09-20-2022 ambulatory Fabiano Anderson O Work Phone: Hematology/Oncology Comment on above: Dental implant infec tion Start: 08-30-2022 Telephone encounter Fabiano ventura DO Work Phone: Hematology/Oncology Comment on above: Results Start: 08-27-2022 End: 08-27-2022 Subsequent hospital visit by physician Ehsan [facility] Avelino Work Phone: Radiology Comment on above: Acute cough [R05.1] Start: 08-27-2022 End: 08-27-2022 Patient encounter procedure Lori Solano APRN.SUGAR REFINERY SUPERVISOR Work Phone: [facility] Comment on above: Acute cough (Primary Dx); Impacted cerumen, left ear; Hearing loss due to cerumen impaction, left Start: 08-23-2022 Telephone encounter Ligia Mtz RN He matology/Oncology Comment on above: Milk Tanker Driver - O ther (Follow-up ) Start: 08-17-2022 Telephone encounter Ligia Navarro matology/Oncology Comment on above: Milk Tanker Driver - O ther (Oral Anti-Cancer Agents Follow-up (Bosutinib) ) Start: 08-02-2022 Telephone encounter Fabiano ventura DO Work Phone: Hematology/Oncology Comment on above: Refill Request Start: 07-26-2022 ambulatory Duong Avila [facility] Start: 07-26-2022 Patient encounter procedure Duong Avila [facility] Comment on above: SPP [...] encounter procedure Fabiano Liz DO Work Phone: [facility] Start: 07-24-2022 Orders Only Fabiano Anderson O Work Phone: Hematology/Oncology Comment on above: CML (chronic myelocy tic leukemia) (HCC) (Primary Dx); Other elevated white blood cell (WBC) count Start: 07-23-2022 Refill Fabiano Emerson Work Phone: Hematology/Oncology Comment on above: Results (High uric a brad) Start: 07-21-2022 End: 07-21-[address] Krystina Calle Work Phone: [facility] Work Phone: Start: 07-21-2022 End: 07-21-[address] Krystina Calle Work Phone: [facility]-Laboratory Start: 06-28-2022 End: 06-28-[address] Krystina Calle Work Phone: [facility] Start: 06-16-2022 End: 06-16-[address] Krystina Calle Work Phone: [facility] Work Phone: Start: 06-16-2022 End: 06-16-[address] Krystina Calle Work Phone: [facility]-Laboratory Start: 05-21-2022 End: 05-21-[address] Krystina Calle Work Phone: [facility] Start: 04-24-2022 End: 04-24-[address] Krystina Calle Work Phone: [facility] Start: 03-27-2022 End: 03-27-[address] Krystina Calle Work Phone: [facility] Start: 03-03-2022 End: 03-03-2022 Non-patient / Non-visit Dr. Krystina Calle Work Phone: [facility] Start: 03-03-2022 End: 03-03-[address] Krystina Calle Work Phone: [facility] Work Phone: Start: 03-03-2022 End: 03-03-[address] Krystina Calle Work Phone: [facility]-Pulmonary Services/Neurology Start: 03-01-2022 End: 03-01-[address] Krystina Calle Work Phone: [facility] Work Phone: Start: 03-01-2022 End: 03-01-[address] Krystina Calle Work Phone: [facility] Start: 02-08-2022 End: 02-08-[address] Krystina Calle Work Phone: [facility] Work Phone: Start: 02-08-2022 End: 02-08-[address] Krystina Calle Work Phone: [facility] Start: 01-02-2022 End: 01-02-2022 ambulatory [employer] Facility:[facility] Start: 12-29-2021 End: 12-29-[address] Krystina Calle Work Phone: [facility]-MRI - [facility] Start: 12-19-2021 End: 12-19-2021 ambulatory [employer] EMPLOYEE Facility:[facility] Start: 07-27-2021 End: 07-27-2021 Patient encounter procedure [facility]-Cat Scan, [facility] Start: 07-21-2021 End: 07-21-2021 Patient encounter procedure [facility] Start: 07-20-2021 End: 07-20-2021 Patient encounter procedure [facility]-Laboratory, Specimen Procedures Date Procedure Procedure Detail [...] exam ches t 2 views Lori Solano ELECTRIC REPAIR SUPERVISOR.SUGAR REFINERY SUPERVISOR Work Phone: Start: 07-25-2022 FLOW CYTOMETRY BONE [...] Author Start: 10-13-2027 Diabetes Screening Diabetes Screening [facility] Start: 07-30-2027 Diabetes Screening Diabetes Screening [facility] Start: 04-20-2027 Diabetes Screening Diabetes Screening [facility] Start: 01-29-2027 Diabetes Screening Diabetes Screening [facility] Start: 10-22-2026 Diabetes Screening Diabetes Screening [facility] Start: 07-16-2026 Diabetes Screening Diabetes Screening [facility] Start: 04-26-2026 Diabetes Screening Diabetes Screening [facility] Start: 01-24-2026 Diabetes Screening Diabetes Screening [facility] Start: 12-20-2025 Diabetes Screening Diabetes Screening [facility] Start: 10-22-2025 DIABETES SCREEN DIABETES SCREEN [facility] Start: 09-20-2025 DIABETES SCREEN DIABETES SCREEN [facility] Start: 08-29-2025 DIABETES SCREEN DIABETES SCREEN [facility] Start: 08-16-2025 DIABETES SCREEN DIABETES SCREEN [facility] Start: 07-23-2025 DIABETES SCREEN DIABETES SCREEN [facility] Start: 11-23-2024 Influenza [facility] Start: 11-20-2024 End: 11-20-2024 Specialty Pharmacy 11/20/2024 7:45 AM EDT Specialty Pharmacy [facility] [address] [place] [address]- [place] [address] Pharmacist, [facility] [address] [place], [place] [address] [address] Refill Scemblix (30 mg) [facility] Comment on above: Refill Scemblix (30 mg) Start: 11-04-2024 End: 11-04-2024 ambulatory Hematology/Oncolog y Comment on above: Q6MO OV/ LABS 07/29 & 10/26* Q6MO OV/ LABS 10/12* Start: 10-26-2024 End: 10-26-2024 ambulatory 10/26/2024 8:00 AM EDT Results Only [facility] [address] [place] [address] CBC/CMP* [facility] Comment on above: CBC/CMP* Start: 10-22-2024 End: 10-22-2024 ambulatory 10/22/2024 9:10 AM EDT Visit (SP) Office Hematology/Oncology [address] [place] [address] Fabiano Liz, [address] [place] [address] OV/LABS 10/12* Hematology/Oncolog y Comment on above: OV/LABS 10/12* Start: 10-21-2024 End: 10-21-2024 Specialty Pharmacy 10/21/2024 7:30 AM EDT Specialty Pharmacy [facility] [address] [place] [address] [place] [address] Pharmacist, [facility] [address] [place] [address] [place] [address] Refill Scemblix (30 mg) [facility] Comment on above: Refill Scemblix (30 mg) Start: 10-12-2024 End: 10-12-2024 ambulatory 10/12/2024 10:00 AM EDT Results [facility] [address] [place] [address] CBC/CMP/BCR ABL P210 and P190 [facility] Comment on above: CBC/CMP/BCR ABL P210 and P190 Start: 07-29-2024 End: 07-29-2024 ambulatory 07/29/2024 8:00 AM EDT Results Only Avelinojavi [place] [facility] [address] [place] [address] CBC/CMP* [facility] Comment on above: CBC/CMP* Start: 07-01-2024 End: 07-01-2024 ambulatory [facility] Comment on above: CBC/Lipase-On Scemblix CBC/LIPASE/OV-On Sce mblix* Start: 06-23-2024 End: 06-23-2024 Specialty Pharmacy 06/23/2024 7:15 AM EDT Specialty Pharmacy [facility] [address] [place] [address] [place] [address] Pharmacist, [facility] [address] [place] [id number] Refill - Scemblix [30ds] [facility] Comment on above: Refill - Scemblix [30ds] Start: 06-18-2024 End: 06-18-2024 ambulatory [facility] Comment on above: CBC/Lipase-On Scemblix Blood pressure check -On Scemblix CBC/Lipase-On Scembl ix(LIPASE COMPLETED AT [facility]) OV-Per ,see phone note 06/15 Start: 06-15-2024 End: 09-14-2024 CBC W Auto Differential panel - Blood COMPLETE BLOOD COUNT AND DIFFERENTIAL Lab STAT CML (chronic myelocytic leukemia) (HCC) Expected: 06/15/2024, Expires: 09/14/2024 [facility] Work Phone: Comment on above: Expected: 06/15/2024, Expires: Start: 06-15-2024 End: 09-14-2024 Lipase [Enzymatic activity/volume] in Serum or Plasma LIPASE Lab Routine CML (chronic myelocytic leukemia) (HCC) Expected: 06/15/2024, Expires: 09/14/2024 [facility] Comment on above: Expected: 06/15/2024, Expires: Start: 04-27-2024 End: 04-27-2024 ambulatory 04/27/2024 8:30 AM EST Visit (SP) Office Hematology/Oncology [address] [place] [address] Fabiano Liz DO [address] [place], [place] [id number] Q3MO OV/ LABS 04/20* Hematology/Oncolog y Comment on above: Q3MO OV/ LABS 04/20* Start: 04-20-2024 End: 04-20-2024 ambulatory [facility] Comment on above: CBC/CMP/MAG/PHOS/BCR ABL1 P190 and P210* CBC/CMP/MAG/PHOS/BCR ABL1 P190 and P210* IRON STUDIES Start: 01-30-2024 End: 01-30-2024 ambulatory [facility] Comment on above: CBC/CMP* Q3MO OV/ LABS EARLY* CBC/CMP(S)* Start: 11-24-2023 [facility]enza [facility] Start: 10-30-2023 End: 01-29-2024 Ferritin [Mass/volume] in Serum or Plasma FERRITIN Lab Routine Iron deficiency anemia secondary to inadequate dietary iron intake Expected: 10/30/2023, Expires: 01/29/2024 [facility] Comment on above: Expected: 10/30/2023, Expires: Start: 10-30-2023 End: 01-29-2024 Iron and Iron binding capacity panel - Serum or Plasma IRON AND TIBC Lab Routine Iron deficiency anemia secondary to inadequate dietary iron intake Expected: 10/30/2023, Expires: 01/29/2024 [facility] Work Phone: Comment on above: Expected: 10/30/2023, Expires: Start: 10-30-2023 End: 10-30-2023 ambulatory 10/30/2023 8:30 AM EDT Visit (SP) Office Hematology/Oncology [address] [place], [place] [address] Fabiano Liz, DO [address] [place] [address] Q3MO OV/ LABS 10/22* Hematology/Oncolog y Comment on above: Q3MO OV/ LABS 10/22* Start: 10-23-2023 End: 10-23-2023 ambulatory 10/23/2023 4:00 PM EDT Results Only [facility] [address] [place] [address] (SO)CBC/CMP(S)/PCR BCR/ABL for both p210 and p190* [facility] Comment on above: (SO)CBC/CMP(S)/PCR BCR/ABL for both p210 and p190* Start: 07-25-2023 End: 07-25-2023 ambulatory 07/25/2023 8:30 AM EDT Visit (SP) Office Hematology/Oncology [address] [place], [place] [id number] Fabiano Liz, DO [address] [place] [address] Q3MO OV/ LABS 07/16* Hematology/Oncolog y Comment on above: Q3MO OV/ LABS 07/16* Start: 07-17-2023 End: 07-17-2023 ambulatory [facility] Comment on above: CBC/CMP/PCR BCR/ABL for both p210 and p1 90 (SO)CBC/CMP(S)/PCR B CR/ABL for both p210 and p190* Start: 07-17-2023 End: 10-16-2023 BCR/ABL1 P190 QUANTITATIVE PCR BLOOD BCR/ABL1 P190 QUANTITATIVE PCR BLOOD Lab Routine CML (chronic myelocytic leukemia) ([facility]) Expected: 07/17/2023, Expires: 10/16/2023 [facility] Work Phone: Comment on above: Expected: 07/17/2023, Expires: Start: 07-17-2023 End: 10-16-2023 BCR/ABL1 P210 QUANTITATIVE PCR BLOOD BCR/ABL1 P210 QUANTITATIVE PCR BLOOD Lab Routine CML (chronic myelocytic leukemia) ([facility]) Expected: 07/17/2023, Expires: 10/16/2023 [facility] Comment on above: Expected: 07/17/2023, Expires: Start: 04-26-2023 End: 07-26-2023 BCR/ABL1 P190 QUANTITATIVE PCR BLOOD [facility] Work Phone: Comment on above: Expected: 04/26/2023, Expires: Start: 04-26-2023 End: 07-26-2023 BCR/ABL1 P210 QUANTITATIVE PCR BLOOD [facility] Work Phone: Comment on above: Expected: 04/26/2023, Expires: Start: 03-25-2023 Behavioral Health Screening Behavioral Health Screening [facility] Start: 03-25-2023 Depression Assessment Depression Assessment [facility] Start: 01-24-2023 End: 04-25-2023 BCR/ABL1 P210 QUANTITATIVE PCR BLOOD BCR/ABL1 P210 QUANTITATIVE PCR BLOOD Lab Routine CML (chronic myelocytic leukemia) ([facility]) Expected: 01/24/2023, Expires: 04/25/2023 [facility] Work Phone: Comment on above: Expected: 01/24/2023, Expires: Start: 01-23-2023 End: 04-24-2023 BCR/ABL1 P190 QUANTITATIVE PCR BLOOD BCR/ABL1 P190 QUANTITATIVE PCR BLOOD Lab Routine CML (chronic myelocytic leukemia) ([facility]) Expected: 01/23/2023, Expires: 04/24/2023 [facility] Work Phone: Comment on above: Expected: 01/23/2023, Expires: 4 Start: 11-23-2022 Influenza vaccination INFLUENZA (#1) [facility] Start: 10-22-2022 End: 12-22-2022 BCR/ABL1 P190 QUANTITATIVE PCR BLOOD [facility] Work Phone: Comment on above: Expected: 10/22/2022, Expires: 3 Start: 10-22-2022 End: 12-22-2022 BCR/ABL1 P210 QUANTITATIVE PCR BLOOD [facility] Work Phone: Comment on above: Expected: 10/22/2022, Expires: 3 Start: 07-25-2022 End: 09-24-2022 CBC W Auto Differential panel - Blood CBC + DIFF Lab STAT CML (chronic myelocytic leukemia) (HCC) Other elevated white blood cell (WBC) count Expected: 07/25/2022, Expires: 09/24/2022 [facility] Work Phone: Comment on above: Expected: 07/25/2022, Expires: 3 Start: 07-23-2022 End: 09-22-2022 BCR/ABL1 P210 AND P190 DIAGNOSTIC PCR BLOOD [facility] Work Phone: Comment on above: Expected: 07/23/2022, Expires: 3 Start: 07-23-2022 End: 09-22-2022 Chronic hepatitis differentiation between hepatitis B and C virus panel - Serum or Plasma [facility] Work Phone: Comment on above: Expected: 07/23/2022, Expires: 3 Start: 07-23-2022 End: 09-22-2022 HIV 1+2 Ab [Presence] in Serum or Plasma by Immunoassay [facility] Work Phone: Comment on above: Expected: 07/23/2022, Expires: 3 Start: 03-25-2022 DEPRESSION ASSESSMENT DEPRESSION ASSESSMENT [facility] Start: 2022 COLOGUARD (FIT-DNA) COLOGUARD (FIT-DNA) [facility] Start: 2022 Colonoscopy COLONOSCOPY [facility] Start: 2022 COLORECTAL CANCER SCREENING COLORECTAL CANCER SCREENING [facility] Start: [address] COLONOGRAPHY [facility] Start: 2022 FECAL OCCULT BLOOD FECAL OCCULT BLOOD [facility] Start: 2022 Lipid 1996 panel - Serum or Plasma Lipid Screening [facility] Start: 2022 Lipid panel Lipid Screening [facility] Start: 2022 LIPID SCREEN LIPID SCREEN [facility] Start: 2022 Screening for malignant neoplasm of colon [facility] Start: 2022 SIGMOIDOSCOPY SIGMOIDOSCOPY [facility] Start: 03-03-2021 COVID-19 VACCINE (3 - Booster for Moderna series) COVID-19 VACCINE (3 - Booster for Moderna series) [facility] Start: 02-03-2021 COVID-19 VACCINE (3 - Moderna risk series) COVID-19 VACCINE (3 - Moderna risk series) [facility] Start: 10-23-2017 Urine microalbumin profile DTaP,Tdap,Td Vaccine (2 - Td or Tdap) [facility] Start: 2017 Mammography [facility] Start: 2017 Screening for malignant neoplasm of breast Mammogram Screening [facility] Start: 06-28-2007 PAP TESTING PAP TESTING [facility] Start: 06-28-2007 Screening for malignant neoplasm of cervix Pap Testing [facility] Start: 2007 HPV TESTING HPV TESTING [facility] Start: 2007 Screening for malignant neoplasm of cervix HPV Testing [facility] Start: 06-28-2003 Screening for malignant neoplasm of cervix Cervical Cancer Screening [facility] Start: 01-18-1996 Pneumococcal vaccination Pneumococcal Vaccine (1 of 2 - PCV) [facility] Start: 01-18-1996 SHINGRIX VACCINE (1 of 2) SHINGRIX VACCINE (1 of 2) [facility] Start: 01-18-1996 Urine microalbumin profile [facility] Start: 1995 Anxiety Screening Anxiety Screening [facility] Start: 1995 Depression Screening Depression Screening [facility] Start: 1995 HEPATITIS C SCREENING HEPATITIS C SCREENING [facility] Start: 1995 HIV SCREENING HIV SCREENING [facility] Start: 1983 PNEUMOCOCCAL (1 - PCV) PNEUMOCOCCAL (1 - PCV) [facility] Start: 1983 [facility] Start: [facility] HEPATITIS B (1 of 3 - 3-dose series) HEPATITIS B (1 of 3 - 3-dose series) [facility] BCR/ABL1 P190 NCN P2 10 % IS MR BONE MARROW BCR/ABL1 P190 NCN P210 % IS MR BONE MARROW Lab Routine Bandemia 07/25/2022 1:17 PM EDT [facility] Work Phone: BCR/ABL1 P210 AND P1 90 DIAGNOSTIC PCR BONE MARROW BCR/ABL1 P210 AND P190 DIAGNOSTIC PCR BONE MARROW Lab Routine Bandemia 07/25/2022 1:17 PM EDT [facility] Work Phone: BCR/ABL1 P210 AND P1 90 DIAGNOSTIC PCR BONE MARROW BCR/ABL1 P210 AND P190 DIAGNOSTIC PCR BONE MARROW Lab Routine Bandemia 07/25/2022 1:17 PM EDT [facility] Work Phone: BONE MARROW CHROMOSOME ANAL [facility] MARROW CHROMOSOME ANAL Lab Routine Bandemia 07/25/2022 1:17 PM EDT [facility] Work Phone: CBC W Ordered Manual Differential panel - Blood PATHOLOGIST INTERPRETATION WITH CBC AND DIFF Lab STAT Other elevated white blood cell (WBC) count 07/23/2022 2:52 PM EDT [facility] Work Phone: DNA EXTRACTION BONE MARROW (BUFFY COAT) DNA EXTRACTION BONE MARROW (BUFFY COAT) Lab Routine Bandemia 07/25/2022 1:17 PM T [facility] Work Phone: End: 04-26-2024 ECG COMPLETE ECG COMPLETE ECG Routine CML (chronic myelocytic leukemia) (HCC) Dyspnea and respiratory abnormalities 1 Occurrences starting 04/26/2023 until 04/26/2024 [facility] Work Phone: Comment on above: 1 Occurrences starting 04/26/2023 until 04/26/2024 End: 10-25-2023 Echocardiography ECHO Cardiology Routine CML (chronic myeloid leukemia) (HCC) Encounter for monitoring cardiotoxic drug therapy 1 Occurrences starting 10/24/2022 until 10/25/2023 [facility] Work Phone: Comment on above: 1 Occurrences starting 10/24/2022 until 10/25/2023 End: 04-26-2024 Echocardiography ECHO Cardiology Routine CML (chronic myelocytic leukemia) ([facility]) 1 Occurrences starting 04/26/2023 until 04/26/2024 [facility] Work Phone: Comment on above: 1 Occurrences starting 04/26/2023 until 04/26/2024 Electrocardiographic procedure [facility] Work Phone: End: 07-26-2025 MR Lumbar spine WO contrast MRI LUMBAR SPINE WO IVCON Radiology Routine Spinal stenosis of lumbar region, unspecified whether neurogenic claudication present 1 Occurrences starting 06/26/2024 until 07/26/2025 [facility] Work Phone: Comment on above: 1 Occurrences starting 06/26/2024 until 07/26/2025 End: 11-21-2023 Radiologic exam chest 2 views XR CHEST 2V FRONTAL/LAT Radiology Routine Acquired hypothyroidism Iron deficiency anemia, unspecified iron deficiency anemia type CML (chronic myelocytic leukemia) ([facility]) 1 Occurrences starting 10/22/2022 until 11/21/2023 [facility] Work Phone: Comment on above: 1 Occurrences starting 10/22/2022 until 11/21/2023 Radiologic exam chest 2 views XR CHEST 2V FRONTAL/LAT Radiology Routine Acquired hypothyroidism Iron deficiency anemia, unspecified iron deficiency anemia type CML (chronic myelocytic leukemia) ([facility]) 10/22/2022 4:56 PM EDT [facility] Work Phone: Removal impacted cer umen irrigation/lvg unilat AMBULATORY EAR LAVAGE/IRRIGATION Procedures Routine Impacted cerumen, left ear Ordered: 08/27/2022 [facility] Work Phone: Comment on above: Ordered: 08/27/2022 T4 free measurement [facility] Work Phone: Thyroid stimulating hormone measurement [facility] Work Phone: Triiodothyronine, fr ee measurement [facility] Work Phone: XR Femur - left AP a nd Lateral XR FEMUR GENERAL 2V AP/LAT LEFT Radiology Routine CML (chronic myelocytic leukemia) (HCC) 07/25/2023 9:12 AM EDT [facility] Work Phone: End: 08-23-2024 XR Femur - left AP and Lateral XR FEMUR GENERAL 2V AP/LAT LEFT Radiology Routine CML (chronic myelocytic leukemia) ([facility]) 1 Occurrences starting 07/25/2023 until 08/23/2024 [facility] Work Phone: Comment on above: 1 Occurrences starting 07/25/2023 until 08/23/2024 End: 07-18-2025 XR Lumbar spine AP and Lateral XR LUMBAR LIMITED 2V AP/LAT Radiology Routine Acute bilateral low back pain with right-sided sciatica 1 Occurrences starting 06/18/2024 until 07/18/2025 [facility] Work Phone: Comment on above: 1 Occurrences starting 06/18/2024 until 07/18/2025 [facility] Immunizations Immunization Date Immunization Notes Care Provider [facility] 01-23-2024 influenza, seasonal, injectable, preservative free Dr. Krystina Calle DO Work Phone: [facility] 01-23-2024 influenza virus vaccine, unspecified formulation Fabiano Liz DO Work Phone: [facility] 12-07-2022 influenza virus vaccine, unspecified formulation Fabiano Liz DO Work Phone: [facility] 01-06-2021 Covid (Moderna) [facility] 12-20-2020 influenza, injectabl e, quadrivalent, preservative free Dr. Krystina Calle Work Phone: [facility] 12-20-2020 influenza, seasonal, injectable [facility] 12-09-2020 Covid (Moderna) [facility] 12-22-2019 influenza, injectabl e, quadrivalent, preservative free Dr. Krystina Calle Work Phone: [facility] 12-22-2019 influenza, seasonal, injectable [facility] 12-18-2018 influenza, injectabl e, quadrivalent, preservative free Dr. Krystina Calle Work Phone: [facility] 12-18-2018 influenza, seasonal, injectable [facility] 12-18-2017 influenza, injectabl e, quadrivalent, preservative free Dr. Krystina Calle Work Phone: [facility] 12-18-2017 influenza, seasonal, injectable [facility] 12-19-2016 influenza, injectabl e, quadrivalent, preservative free Dr. Krystina Calle Work Phone: [facility] 12-19-2016 influenza, seasonal, injectable [facility] 12-22-2015 influenza, injectabl e, quadrivalent, preservative free Dr. Krystina Calle Work Phone: [facility] 12-22-2015 influenza, seasonal, injectable [facility] 12-22-2014 influenza, injectabl e, quadrivalent, preservative free Dr. Krystina Calle Work Phone: [facility] 12-22-2014 influenza, seasonal, injectable [facility] 12-23-2013 influenza, injectabl e, quadrivalent, preservative free Dr. Krystina Calle Work Phone: [facility] 12-23-2013 influenza, seasonal, injectable [facility] Payers Date Payer Category Payer Self-pay [id number] 2023 Private Health Insurance [id number] 2023 Unknown [id number] 2022 Unknown [id number] 2016 Unknown [id number] Unknown 0000 Unknown [id number] 2.16.8 [id number] Unknown [id number] 2.16.8 40.1.054707.3.579.2.383 Unknown [id number] 2.16.8 40.1.569720.3.579.2.462 Unknown [id number] 2.16.8 40.1.545945.3.579.2.462 Unknown [id number] 2.16.8 40.1.458563.3.579.2.462 Unknown [id number] 2.16.8 40.1.445464.3.579.2.462 Unknown [id number] 2.16.8 40.1.886347.3.579.2.462 Unknown [id number] 2.16.8 40.1.055157.3.579.2.462 Unknown [id number] 2.16.8 40.1.900862.3.579.2.462 Unknown [id number] 2.16.8 40.1.782833.3.579.2.462 Unknown [id number] 2.16.8 40.1.020029.3.579.2.462 Unknown [id number] 2.16.8 40.1.820453.3.579.2.462 Unknown [id number] 2.16.8 40.1.131487.3.579.2.462 Unknown [id number] 2.16.8 40.1.960552.3.579.2.462 Unknown [id number] 2.16.8 40.1.123977.3.579.2.462 Unknown [id number] 2.16.8 40.1.028005.3.579.2.462 Unknown [id number] 2.16.8 40.1.185918.3.579.2.462 Unknown [id number] 2.16.8 40.1.123326.3.579.2.462 Unknown [id number] 2.16.8 40.1.978904.3.579.2.462 Unknown [id number] 2.16.8 40.1.299815.3.579.2.462 Unknown [id number] 2.16.8 40.1.867185.3.579.2.462 Unknown [id number] 2.16.8 40.1.926394.3.579.2.462 Social History Date Type Detail Facility Start: 12-26-2020 End: 02-19-2023 Tobacco smoking status FLIS Unknown if ever smoked [facility] Start: 1975 Sex Assigned At Female [facility] Start: 07-25-2022 End: 02-24-2024 Tobacco smoking status FLIS Never smoked tobacco [facility] Start: 08-25-2017 End: 08-27-2022 Alcohol intake Current drinker of alcohol (finding) [facility] Start: 09-20-2009 Alcohol [facility] Start: 1975 Sex Assigned At Not on file [facility] Start: 07-25-2022 Tobacco use and exposure Smokeless tobacco non-user [facility] Start: 10-22-2022 End: 07-01-2024 Alcohol intake Ex-drinker (finding) [facility] Start: 10-22-2022 End: 06-18-2024 History of Social function [facility] Start: 10-22-2022 End: 06-18-2024 Tobacco use panel [facility] Adult Depression Screening Assessment 0 [facility] Start: 06-22-2024 End: 07-20-2024 Sex Female (finding) [facility] Clinical Notes 07-23-2022 to 10-26-2024 Mila (Mapping Pilot)Margaret - 10/26/2024 12:20 PM EDTStacia Grady - 09/30/2024 11:39 AM EDTTelephone Encounter - Marie Malhotra [facility] - 09/28/2024 4:29 PM EDT Note Date [...] been reviewed prior to dispensing the medication. [employer] Assessment Patient confirmed: Yes Med/dose confirmed: Yes Supplies needed: No supplies needed Missed doses: No Estimated days supply on hand: 6 Copay amount: 0 Payment confirmed: Yes Delivery method: FedEx Signature required: Waived on patient request Delivery address: [address] [place] [address] [place] [address] Delivery date: 10/29/24 Questions or concerns for [...] facility-administered medications on file prior to visit. [facility] CLINICAL ASSESSMENT - HEMATOLOGY ONCOLOGY [...] G3/4 - Cardio toxicity (ischemic cardiac and HVAC TECHNICIAN RESIDENTIAL events, thrombotic and embolic events, HF reported) [...] disease progression or unacceptable toxicity. Margaret Zaragoza (Populr) documented in this encounter [facility] 10-26-2024 Note HNO ID: [id number] Author: JEFFERSON VUONG RPh Service: ? Author [...] medication. Jefferson Vuong, DavidD Clinical Pharmacist, Oncology [facility] P: , F: Pool: P [facility] Pool #: [id number] [employer] Assessment Patient confirmed: Yes Med/dose confirmed: Yes Supplies needed: No supplies needed Missed doses: No Estimated days supply on hand: 6 Copay amount: 0 Payment confirmed: Yes Delivery method: FedEx Signature required: Waived on patient request Delivery address: [address] [place] [address] [place] [address] Delivery date: 10/29/24 Questions or concerns for [...] facility-administered medications on file prior to visit. [facility] CLINICAL ASSESSMENT - HEMATOLOGY [...] G3/4 - Cardio toxicity (ischemic cardiac and HVAC TECHNICIAN RESIDENTIAL events, thrombotic and embolic events, HF reported) [...] disease progression or unacceptable toxicity. Margaret Zaragoza (Mapping Pilot) [facility] 09-30-2024 History of Presen t illness Narrative [...] been reviewed prior to dispensing the medication. [employer] Assessment Patient confirmed: Yes Med/dose confirmed: Yes Supplies needed: No supplies needed Missed doses: No Estimated days supply on hand: 1 Copay amount: 0 Payment confirmed: Yes Delivery method: FedEx Signature required: No Delivery address: [address] [place] [address] Delivery date: 10/02/24 Questions or concerns for [...] facility-administered medications on file prior to visit. [facility] CLINICAL ASSESSMENT - HEMATOLOGY [...] G3/4 - Cardio toxicity (ischemic cardiac and HVAC TECHNICIAN RESIDENTIAL events, thrombotic and embolic events, HF reported) [...] toxicity. Stacia Grady documented in this encounter [facility] 09-30-2024 Note HNO ID: [id number] Author: JEFFERSON VUONG RPh Service: ? Author [...] medication so she is transferring back to [facility] for refills at this time. Jefferson Vuong, PharmD Clinical Pharmacist, Oncology [facility] P: , F: Pool: P [facility] ONCOLOG[facility] Pool #: [id number] [employer] Assessment Patient confirmed: Yes Med/dose confirmed: Yes Supplies needed: No supplies needed Missed doses: No Estimated days supply on hand: 1 Copay amount: 0 Payment confirmed: Yes Delivery method: FedEx Signature required: No Delivery address: [facility] [address] [place], [place] [id number] Delivery date: 10/02/24 Questions or concerns for [...] facility-administered medications on file prior to visit. [facility] CLINICAL ASSESSMENT - HEMATOLOGY [...] G3/4 - Cardio toxicity (ischemic cardiac and HVAC TECHNICIAN RESIDENTIAL events, thrombotic and embolic events, HF reported) [...] / Amylas ([place] (more content not included)... [facility] 09-28-2024 Miscellaneous Notes Patient would like to fill Scemblix through [facility], please sign attached prescription as appropriate. Marie Malhotra PharmD, ALEX, JENY Clinical Pharmacist, Oncology [facility] P: , F: Pool: P [facility] ONCOLOG[facility] Pool #: [id number] documented in this encounter [facility] 09-28-2024 Telephone encounter Note Patient would like to fill Scemblix through [facility], please sign attached prescription as appropriate. Marie Malhotra PharmD, ALEX, JENY Clinical Pharmacist, Oncology [facility] P: , F: Pool: P [facility] [facility] Pool #: [id number] [facility] 09-28-2024 Telephone encounter Note I reached out to [facility] and to the patient. Transfers are pharmacy to pharmacy, therefore, [facility] will need to reach out to [facility] to initiate the transfer of the Rx. I contacted [facility] and a message will be given to the pharmacist to contact [facility] to transfer the Rx. Dr. Liz is currently out of the office. Alisha Romero LPN [facility] 09-28-2024 Miscellaneous Notes I reached out to [facility] and to the patient. Transfers are pharmacy to pharmacy, therefore, [facility] will need to reach out to [facility] to initiate the transfer of the Rx. I contacted [facility] and a message will be given to the pharmacist to contact [facility] to transfer the Rx. Dr. Liz is currently out of the office. Alisha Romero LPN Patient called stating she contacted [facility] to fill prescription Scemblix. She was informed that is not available. They do not know when they would get it in. Patient has 2 days left of medication. She states if we contact [facility] they will be able to transfer the prescription to another location. Patient says that will save her some money. Please advise patient. documented in this encounter [facility] 09-28-2024 Telephone encounter Note Patient called stating she contacted [facility] to fill prescription Scemblix. She was informed that is not available. They do not know when they would get it in. Patient has 2 days left of medication. She states if we contact [facility] they will be able to transfer the prescription to another location. Patient says that will save her some money. Please advise patient. [facility] Work Phone: 07-14-2024 Radiology Diagnostic study note [facility] Imaging Services [address] [place], [place] [address] L/S Spine Bending Flex/Ext MR#: [id number] Acct: [id number] Name: LIBIA OLIVAS FRIDA Rep #: [id number] : 1975 F 49 From: Roverto Martinez MD PCP: Dr. Krystina Calle DO Status: REG CLI Study:L/S Spine Bending Flex/Ext Date of Exam : 07/14/24 Exam# [id number] Ordering Dr: Murray Cortez PROCEDURE: L/S SPINE [...] the flexion and extension views. Reading Location: [id number] CC: AZEB Love; Dr. Krystina Calle DO ~ Chocolate Finisher: Signed [facility] 07-01-2024 Note HNO ID: [id number] Author: FABIANO LIZ DO Service: ? Author [...] since hadn't had in a year) at [facility] and incidental leukocytosis with WBC count 135.68K. Hgb and platelets normal. Recheck at [facility] 07/21/2022 revealed total white count 131.8 [...] starting Scemblix. Plain film was done at [facility] indicating disc space narrowing at L4-L5 and [...] prednisone taper. P (more content not included)... [facility] 07-01-2024 History of Presen t illness Narrative [...] since hadn't had in a year) at [facility] and incidental leukocytosis with WBC count 135.68K. Hgb and platelets normal. Recheck at [facility] 07/21/2022 revealed total white count 131.8 [...] starting Scemblix. Plain film was done at [facility] indicating disc space narrowing at L4-L5 and [...] Fabiano Liz DO documented in this encounter [facility] 06-26-2024 Telephone encounter Note Referrals have been faxed to [facility], confirmation scanned into docs. Mode Moss [facility] 06-26-2024 Miscellaneous Notes Referrals have been faxed to [facility], confirmation scanned into docs. Mode Moss Called patient to review XR of spine. Recommend MRI lumbar to further evaluate. Should also get in to see ortho. Pt is agreeable. Will need imaging at [facility]. PSR: Can you please fax orders and get her set up to have MRI lumbar at [facility] please? Referral placed to ORTHO also at [facility]. Esha Read APRN.SUGAR REFINERY SUPERVISOR documented in this encounter [facility] 06-26-2024 Telephone encounter Note Called patient to review XR of spine. Recommend MRI lumbar to further evaluate. Should also get in to see ortho. Pt is agreeable. Will need imaging at [facility]. PSR: Can you please fax orders and get her set up to have MRI lumbar at [facility] please? Referral placed to ORTHO also at [facility]. Esha Read APRN.SUGAR REFINERY SUPERVISOR [facility] 06-19-2024 Radiology Diagnostic study note [facility] Imaging Services [address] [place] [address] Lumbar Spine 2 or 3 Views MR#: [id number] Acct: [id number] Name: LIBIA OLIVAS FRIDA Rep #: [id number] : 1975 F 49 From: Ezekiel Rock DO PCP: Dr. Krystina Calle DO Status: REG CLI Study:Lumbar Spine 2 or 3 Views Date of Exam: 06/18/24 Exam# [id number] Ordering Dr: Milana harrison,Out o. PROCEDURE: LUMBAR [...] symptomsand abnormal plain film findings. Reading Location: [id number] CC: ESHA READ; Dr. Krystina Calle DO ~ Chocolate Finisher: Signed [facility] 06-18-2024 History of Presen t illness [...] since hadn't had in a year) at [facility] and incidental leukocytosis with WBC count 135.68K. Hgb and platelets normal. Recheck at [facility] 07/21/2022 revealed total white count 131.8 [...] plan for xray to be done at [facility] - also recommended establishing with ortho for chronic spinal issues. - follow up pending XR, otherwise keep future appts as scheduled Esha Read APRN.SUGAR REFINERY SUPERVISOR I spent a total of 35 minutes on the date of the service which included preparing to see the patient, aufm-rk-syog patient care, completing clinical documentation, obtaining and/or [...] of this patient. documented in this encounter [facility] 06-18-2024 Note HNO ID: [id number] Author: ESHA READ, ? Service: ? Author [...] since hadn't had in a year) at [facility] and incidental leukocytosis with WBC count 135.68K. Hgb and platelets normal. Recheck at [facility] 07/21/2022 revealed total white count 131.8 [...] plan for xray to be done at [facility] - also recommended establishing with ortho for chronic spinal issues. - follow up pending XR, otherwise keep future appts as scheduled Esha Read APRN.SUGAR REFINERY SUPERVISOR I spent a total of 35 minutes on the date of the service which included preparing to see the patient, zubl-bt-nkwg patient care, completing clinical documentation, obtaining and/or reviewing separately obtained history, performing a medically appropriate examination, and orderi (more content not included)... [facility] 06-15-2024 Telephone encounter Note I called and spoke to Libia and schedule her to see Esha Roro on 06/18/24 she was schedule already that day for blood pressure check Patient confirmed this date and time Judith Yeboah [facility] 06-15-2024 Miscellaneous Notes I called and spoke to Libia and schedule her to see Esha Roro on 06/18/24 she was schedule already that day for blood pressure check Patient confirmed this date and time Judith Duke Pss That's good. Can we set up OV with WELFARE VISITOR to assess back pain further? Fabiano Liz DO Copied from [facility]: LIPASE 18 13-75 U/L Please note: LIPASE revised reference range effective 22. New Lipase methodology. Expected to produce lower values than the previous assay method. NEW Reference Range: 13 - 75 U/L Ligia Mtz RN Patient would like to have lab checked at [facility]. Order faxed. Patient informed of Dr. Liz's response and stated understanding. Ligia Mtz RN Thank you. Order filed. If lipase is normal then we will obtain plain film x-rays and schedule an WELFARE VISITOR visit. Fabiano Liz DO Dr. Liz would [...] Ligia Mtz RN documented in this encounter [facility] 06-15-2024 Telephone encounter Note That's good. Can we set up OV with WELFARE VISITOR to assess back pain further? Fabiano Liz DO [facility] 06-15-2024 Telephone encounter Note Copied from [facility]: LIPASE 18 13-75 U/L Please note: LIPASE revised reference range effective 22. New Lipase methodology. Expected to produce lower values than the previous assay method. NEW Reference Range: 13 - 75 U/L Ligia Mtz RN [facility] 06-15-2024 Telephone encounter Note Patient would like to have lab checked at [facility]. Order faxed. Patient informed of Dr. Liz's response and stated understanding. Ligia Mtz RN [facility] 06-15-2024 Telephone encounter Note Thank you. Order filed. If lipase is normal then we will obtain plain film x-rays and schedule an WELFARE VISITOR visit. Fabiano Liz DO [facility] 06-15-[address] Liz would like to check a lipase today. Called patient, no answer, left a VM requesting a call back. Order pended. Ligia Mtz RN [facility] 06-15-2024 Telephone encounter Note ORAL ANTI-CANCER [...] if unable to comply. Ligia Mtz RN [facility] 06-12-2024 Telephone encounter Note ORAL ANTI-CANCER AGENTS FOLLOW-UP PHONE CALL/VISIT Called patient, no answer, left a VM requesting a call back from patient. Ligia Mtz RN [facility] 05-13-2024 Telephone encounter Note Patient states she is taking potassium 10 meq, 2 tabs, once a day (20 meq). She is only taking Lasix prn and it's been a while since she's used that. Alisha Romero LPN [facility] 05-13-2024 Miscellaneous Notes Patient states she is taking potassium 10 meq, 2 tabs, once a day (20 meq). She is only taking Lasix prn and it's been a while since she's used that. Alisha Romero LPN documented in this encounter [facility] 05-13-2024 Miscellaneous Notes Refill request received from [facility] Next follow up 11/04/24 documented in this encounter [facility] 05-13-2024 Telephone encounter Note Refill request received from [facility] Next follow up 11/04/24 [facility] 05-05-2024 Telephone encounter Note ORAL ANTI-CANCER [...] teaching topics as needed. Ligia Mtz RN [facility] 05-05-2024 Miscellaneous Notes ORAL ANTI-CANCER AGENTS EDUCATION [...] Ligia Mtz RN documented in this encounter [facility] 04-28-2024 History of Presen t illness Narrative [facility] received prescription(s) for Scemblix [address] Liz's office. Benefits investigation was conducted, indicating that a prior authorization is required by patient's insurance plan with [employer]. Encounter will be updated once prior authorization has been submitted by [facility]. Margaret Zaragoza [employer] OFFICER documented in this encounter [facility] 04-28-2024 Note HNO ID: [id number] Author: JEFFERSON VUONG RPh Service: ? Author Type: Pharmacist Type: Progress Notes Filed: 06/01/2024 11:47 Note Text: [facility] received prescription(s) for asciminib from Dr. Liz's office. Benefits investigation was conducted, indicating that a prior authorization is required. PA was approved with details listed below: Plan Name: Med[employer] / Rx Benefits Commercial PA reference number: Prior Auth (EOC) ID: [id number] Approval Dates: 05/27/24 - 05/26/25 Pt's copay [...] of gallbladder 09/07/2009 Chau Preston MD No Bonding And Composite Fabricator Assessment Patient confirmed: Yes Med/dose confirmed: Yes Supplies needed: Welcome packet Missed doses: No Estimated days supply on hand: 0 Next cycle/dose due: (Per Dr. Liz's discretion) Copay amount: 30 Copay form of payment: (Copay Card) Payment confirmed: Yes Delivery method: FedEx Signature required: Waived on patient request Delivery address: [address] [place] [address] Delivery date: 06/02/24 Questions or concerns for the pharmacist?: Yes Patient questions/concerns: Medication cost, Co-pay/assistance programs, Medication dose, Medication route, Medication storage, Side effects, Delivery Did you have any side effects believed to be related to this medication, that resulted in hospitalization?: No [facility] SPECIALTY CLINICAL ASSESSMENT - HEMATOLOGY ONCOLOGY [...] G3/4 - Cardio toxicity (ischemic cardiac and HVAC TECHNICIAN RESIDENTIAL events, thrombotic and embolic events, HF reported) - GI Toxici (more content not included)... [facility] 04-28-2024 Note HNO ID: [id number] Author: MARIE MALHOTRA [facility] Service: ? Author Type: Pharmacist Type: Progress Notes Filed: 06/09/2024 16:42 Note Text: [facility] Discontinuation Assessment: Disease group: Oral Oncology/Hematology Medication: SCEMBLIX ORAL Discontinue reason: Change of pharmacy Chart notes indicate patient is filling through [facility] pharmacy, office already sent rx. No further follow-up required from [facility]. Marie Malhotra, PharmD, BCACP, BCOP Clinical Pharmacist, Oncology [facility] P: , F: Pool: P [facility] Pool #: [id number] [facility] 04-28-2024 Note HNO ID: [id number] Author: ?, ?, ? Service: ? Author Type: ? Type: Progress Notes Filed: 04/28/2024 08:03 Note Text: [facility] received prescription(s) for Scemblix [address] Liz's office. Benefits investigation was conducted, indicating that a prior authorization is required by patient's insurance plan with [employer]. Encounter will be updated once prior authorization has been submitted by [facility]. Margaret Zaragoza [facility] 04-28-2024 Note HNO ID: [id number] Author: MARIE MALHOTRA RPh Service: ? Author Type: Pharmacist Type: Progress Notes Filed: 05/28/2024 09:33 Note Text: [facility] received prescription(s) for asciminib (Scemblix) from Agusto's office. Benefits investigation was conducted, indicating that a prior authorization is required. PA was initiated and pending review. Plan Name: MedBen / Rx Benefits Commercial (Prompt PA portal: [email or web address] Case: Prior Auth (EOC) ID: [id number] Timeline: Urgent Esperanza Seay PharmD, BCPS, BCOP Clinical Coordinator, Specialty Pharmacy [facility] P: , F: Pool: P [facility] Pool #: [id number] Addendum May 28, 2024 5:47 AM : PA approved but unclear for how long. Will await letter and if not received by next week this pharmacist will check chart and call for dates. Esperanza Seay PharmD, BCPS, BCOP Clinical Coordinator, Specialty Pharmacy [facility] P: , F: Pool: P [facility] Pool #: [id number] Marie Malhotra PharmD, BCACP, BCOP Clinical Pharmacist, Oncology [facility] P: , F: Pool: P [facility] Pool #: [id number] [facility] 04-27-2024 Note HNO ID: [id number] Author: FABIANO LIZ DO Service: ? Author [...] since hadn't had in a year) at [facility] and incidental leukocytosis with WBC count 135.68K. Hgb and platelets normal. Recheck at [facility] 07/21/2022 revealed total white count 131.8 [...] and updated as necessary. Fabiano Liz DO [facility] 04-27-2024 History of Presen t illness Narrative [...] since hadn't had in a year) at [facility] and incidental leukocytosis with WBC count 135.68K. Hgb and platelets normal. Recheck at [facility] 07/21/2022 revealed total white count 131.8 [...] Fabiano Liz DO documented in this encounter [facility] 02-24-2024 Evaluation note Diagnosis Onset Date Resolution Climacteric acute February 24, 2024 9:00am Encounter for routine gynecological examination noneactive February 23 9:00am [facility] Work Phone: [phone]) 692-496011-07-2024 NoteHNO ID: [id number] Author: DEVIKA BRUSH APRN.SUGAR REFINERY SUPERVISOR Service: ? Author Type: Nurse Practitioner Type: [...] since hadn't had in a year) at [facility] and incidental leukocytosis with WBC count 135.68K. Hgb and platelets normal. Recheck at [facility] 07/21/2022 revealed total white count 131.8 [...] Lymph 1.00 - 4.00 k/uL 1.59 1.54 Armstrong% % 5.5 5.3 Abs Armstrong <0.87 k/uL 0.52 0.49 Eosin% % 1.6 [...] as necessary for today's visit. Devika Brush [facility] History of Present illness Narrative* Devika Brush APRN.SUGAR REFINERY SUPERVISOR - 01/30/2024 8:15 AM EST Chief Complaint [...] since hadn't had in a year) at [facility] and incidental leukocytosis with WBC count 135.68K. Hgb and platelets normal. Recheck at [facility] 07/21/2022 revealed total white count 131.8 [...] Lymph 1.00 - 4.00 k/uL 1.59 1.54 Armstrong% % 5.5 5.3 Abs Armstrong <0.87 k/uL 0.52 0.49 Eosin% % 1.6 [...] visit. Devika Brush APRN.BENTON [facility] Telephone encounter Note * Telephone Encounter [...] Reinoso LPN November 11, 2023 7:53 AM [facility]08-19-2024 Miscellaneous Notes* Telephone Encounter - Gia [...] 11, 2023 7:53 AM [facility] Telephone encounter Note * Telephone Encounter - Alisha Romero LPN - 11/04/2023 3:26 PM EDT Per OV note 10/30/2023- Intolerant to oral iron. Iron study result received from [facility]. Patient is iron deficient. Patient prefers to have her iron infusions at [facility] d/t insurance. Orders and demographics faxed to [facility] Infusion Suite. Patient is aware. Alisha Romero LPN [facility]08-12-2024 Miscellaneous Notes* Telephone Encounter - Alisha Romero LPN - 11/04/2023 3:26 PM EDT Per OV note 10/30/2023- Intolerant to oral iron. Iron study result received from [facility]. Patient is iron deficient. Patient prefers to have her iron infusions at [facility] d/t insurance. Orders and demographics faxed to [facility] Infusion Suite. Patient is aware. Alisha Romero LPN [facility] Medical Records Department [address] [place] [id number] History Physical Exam 11/04/23 0751 MR#: [id number] Acct: [id number] Name: LIBIA OLIVAS FRIDA Rep #: [id number] : 1975 48 From: Ugo Kelley DO PCP: Dr. Kyrstina Calle, Status:[facility] Location: [place] [address] HPI - General General Date of Admission: [...] any chest pain or shortness of breath. [facility] Medical History Wears glasses Wears [...] at home: Yes additional 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: - [facility] ER NURSE YAKOV [facility] ROS Review of Systems ROS Unobtainable: [...] Respiratory Rate 16 Respira (more content not included)...[facility]08-07-2024 Note HNO ID: [id number] Author: FABIANO LIZ, DO Service: ? Author [...] since hadn't had in a year) at [facility] and incidental leukocytosis with WBC count 135.68K. Hgb and platelets normal. Recheck at [facility] 07/21/2022 revealed total white count 131.8 [...] Abs Lymph 1.00 - 4.00 k/uL 1.59 Armstrong% % 5.5 Abs Armstrong <0.87 k/uL 0.52 Eosin% % 1.6 Abs [...] and chemistry panel. No (more content not included)...[facility]08-07-2024 History of Present illness Narrative* Fabiano Liz, [...] since hadn't had in a year) at [facility] and incidental leukocytosis with WBC count 135.68K. Hgb and platelets normal. Recheck at [facility] 07/21/2022 revealed total white count 131.8 [...] currently. SKIN: No jaundice. LABS: Latest Ref [facility] 10/23/2023 WBC 3.70 - 11.00 k/uL 9.47 [...] Abs Lymph 1.00 - 4.00 k/uL 1.59 Armstrong% % 5.5 Abs Armstrong <0.87 k/uL 0.52 Eosin% % 1.6 Abs [...] which included preparing to see the patient, zibp-be-dafw patient care, completing clinical documentation, obtaining and/or reviewing separately obtained history, performing a medically appropriate examination, counseling and educating the pat ient/family/caregiver, ordering medications, tests, or procedures, communicating with other HCPs (not separately reported), and communicating results to the patient/family/caregiver. Fabiano Liz DO [facility] Telephone encounter Note * Telephone Encounter [...] If using Lasix BID Devika Brush APRN.CNP [facility]07-11-2024 Miscellaneous Notes* Telephone Encounter - Devika [...] Daily, If using Lasix BID Devika Brush APRN.SUGAR REFINERY SUPERVISOR * Telephone Encounter - Alisha Romero LPN - 10/03/2023 10:06 AM EDT Please send Rx. Alisha Romero LPN * Telephone Encounter - Sona Carlos - 10/03/2023 9:50 AM EDT Patient calling on status of refills to be sent to [facility] Pharm. * Telephone Encounter - Alisha Romero LPN - 09/30/2023 10:53 AM EDT It doesn't look like we prescribe the levothyroxine. Alisha Romero LPN documented [facility] Telephone encounter Note * Telephone Encounter - Alisha Romero LPN - 10/03/2023 10:06 AM EDT Please send Rx. Alisha Romero LPN [facility]07-11-2024 Telephone encounter Note* Telephone Encounter - Sona Carlos - 10/03/2023 9:50 AM EDT Patient calling on status of refills to be sent to [facility] Pharm. [facility]07-08-2024 Telephone encounter Note* Telephone Encounter - Alisha Romeor LPN - 09/30/2023 10:53 AM EDT It doesn't look like we prescribe the levothyroxine. Alisha Romero LPN [facility]05-07-2024 Telephone encounter Note* Telephone Encounter - Devika Brush APRN.CNP - 07/30/2023 12:58 PM EDT Please schedule follow up OV with Dr. Liz in 3 months with same labs as on 07/16. Thank you. Devika Brush APRN.SUGAR REFINERY SUPERVISOR [facility]05-07-2024 Miscellaneous Notes* Telephone Encounter - Devika Brush APRN.BENTON - 07/30/2023 12:58 PM EDT Please schedule follow up OV with Dr. Liz in 3 months with same labs as on 07/16. Thank you. Devika Brush APRN.SUGAR REFINERY SUPERVISOR documented in [facility] encounter[facility]24 Telephone encounter Note * Telephone Encounter - Ligia Mtz RN - 07/30/2023 12:28 PM EDT See MC message. Ligia Mtz RN [facility]05-07-2024 Miscellaneous Notes* Telephone Encounter - Ligia Mtz RN - 07/30/2023 12:28 PM EDT See MC message. Ligia Mtz RN * Telephone Encounter - eDvika Brush APRN.CNP - 07/29/2023 2:34 PM EDT Left VM for pt. re:her labs last week and discussing plan with Dr. Liz. Advised pt. to call/my chart back with her decision on keeping current treatment or pricing Sprycel. Current therapy is very expensive out of pocket for pt. Devika Brush APRN.CNP documented in [facility] encounter[facility]05[facility] Telephone encounter Note * Telephone Encounter - Devika Brush APRN.CNP - 07/29/2023 2:59 PM EDT Pt. prefers [facility] for future refills of bosutinib. Devika Brush APRN.CNP [facility]05-06-2024 Miscellaneous Notes* Telephone Encounter - Devika Brush APRN.CNP - 07/29/2023 2:59 PM EDT Pt. prefers [facility] for future refills of bosutinib. Devika Brush APRN.CNP documented in this encounterL[facility]05-[facility]24 Telephone encounter Note * Telephone Encounter - Devika Brush APRN.CNP - 07/29/2023 2:34 PM EDT Left VM for pt. re:her labs last week and discussing plan with Dr. Liz. Advised pt. to call/my chart back with her decision on keeping current treatment or pricing Sprycel. Current therapy is very expensive out of pocket for pt. Devika Brush APRN.SUGAR REFINERY SUPERVISOR [facility]05-02-[facility] History of Present illness Narrative* Beatris [...] PATIENT PRESENTS WITH AN IMPLANTABLE OR ATTACHED X RAY ELECTRONICS WIRING TECHNICIAN: No RADIOLOGY DEPARTMENT: General X-ray: Exam(s) Completed: Lower Extremity X- Ray(s): Femur, Left PERIPHERAL IV DATA: Not applicable SIGNED BY: RT Velma(R) July 25, 2023 9:03 AM documented in this encounterLima City Hospital05-02-2024 History of Present illness Narrative* Devika Brush APRN.SUGAR REFINERY SUPERVISOR - 07/25/2023 8:28 AM EDT Chief Complaint [...] since hadn't had in a year) at [facility] and incidental leukocytosis with WBC count 135.68K. Hgb and platelets normal. Recheck at [facility] 07/21/2022 revealed total white count 131.8 [...] 1.00 - 4.00 k/uL 1.86 1.53 1.66 Armstrong% % 6.9 5.5 7.2 Abs Armstrong <0.87 k/uL 0.59 0.36 0.50 Eosin% % [...] visit. Devika Brush APRN.BENTON documented in this encounterLima City Hospital04-22-2024 Telephone encounter Note * Telephone Encounter [...] need to notify patient. Gia Reinoso LPN [facility]04-22-2024 Miscellaneous Notes* Telephone Encounter - Gia [...] patient. Gia Reinoso LPN documented in this encounterLima City Hospital03-20-2024 Miscellaneous Notes* Telephone Encounter - Ligia [...] understanding. Ligia Mtz RN documented in this encounterLima City Hospital03-19-2024 History of Present illness Narrative* Bee Patterson PA-C - 06/11/2023 2:18 PM EDT This note was created using Ounerter. Shiva Olivas is a 48 year old female. HPI [...] Bee R Athy, PA-C documented in this encounterLima City Hospital03-19-2024 Miscellaneous Notes* Telephone Encounter - Ligia Mtz RN - 06/11/2023 8:54 AM EDT Care Coordination Triage Note [facility] Situation: Patient reports Cough/Respiratory Concerns/SOB, Fever, and [...] 11, 2023 9:01 AM documented in this encounterLima City Hospital03-11-2024 Miscellaneous Notes* Telephone Encounter - Gia Reinoso LPN - 06/03/2023 8:50 AM EDT PA obtained for Bosulif 400 mg daily. 05/31/2023 thru 05/29/2024 Gia Reinoso LPN documented in this encounterLima City Hospital03-07-2024 Miscellaneous Notes* Telephone Encounter - Fabiano [...] [facility]. Alisha Romero LPN documented in this encounterLima City Hospital02-02-2024 History of Present illness Narrative* Ángela [...] PATIENT PRESENTS WITH AN IMPLANTABLE OR ATTACHED X RAY ELECTRONICS WIRING TECHNICIAN: No RADIOLOGY DEPARTMENT: General X-ray: Exam(s) Completed: Chest X-Ray PERIPHERAL IV DATA: Not applicable SIGNED BY: RT Stanford(R) April 26, 2023 9:38 AM documented in this encounterLima City Hospital02-02-2024 History of Present illness Narrative* Fabiano [...] since hadn't had in a year) at [facility] and incidental leukocytosis with WBC count 135.68K. Hgb and platelets normal. Recheck at [facility] 07/21/2022 revealed total white count 131.8 [...] visual acuity rather abruptly--about 2 weeks. Saw marriage counselor. No structural abnormality of eye. Got new Rx and okay now. Legs well end of day. 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 Down in the mornings. Diarrhea off and [...] Abs Lymph 1.00 - 4.00 k/uL 1.53 Armstrong% % 5.5 Abs Armstrong <0.87 k/uL 0.36 Eosin% % 2.1 Abs [...] necessary. Fabiano Liz DO documented in this encounterLima City Hospital11-13-2023 Miscellaneous Notes* Telephone Encounter - Gia [...] response. Fabiano Liz DO documented in this encounterLima City Hospital10-06-2023 Miscellaneous Notes* Telephone Encounter - Alisha Romero LPN - 12/28/2022 1:07 PM EDT Patient notified that Rx was sent in to [facility] in [place] as requested. Alisha Romero LPN documented in this encounterLima City Hospital10-06-2023 Miscellaneous Notes* Telephone Encounter - Gia [...] patient. Gia Reinoso LPN documented in this [facility]08-02-2023 Miscellaneous Notes* Telephone Encounter - Alisha Romero LPN - 10/24/2022 9:39 AM EDT Order and demographics faxed to [facility]. Alisha Romero LPN * Telephone Encounter - Sona Carlos - 10/24/2022 9:32 AM EDT Message relayed to patient. She is requesting order to be faxed to [facility] for Echo * Telephone Encounter - Alisha Romero LPN - 10/24/2022 8:54 AM EDT Message left on patient's VM asking her to contact the office. BraveNewTalent message also sent. Alisha Romero LPN * [...] to further evaluate. Can be done at [facility] if better for her. Still awaiting molecular testing which may take several more days. Fabiano Liz DO documented in this encounterLima City Hospital07-31-2023 History of Present illness Narrative* Fabiano [...] since hadn't had in a year) at [facility] and incidental leukocytosis with WBC count 135.68K. Hgb and platelets normal. Recheck at [facility] 07/21/2022 revealed total white count 131.8 [...] 4.00 k/uL 9.41 (H) 1.48 1.55 1.83 Armstrong% % 8.0 10.6 9.5 7.1 Abs Armstrong <0.87 k/uL 12.55 (H) 0.75 0.68 0.60 Eosin% % 5.0 6.9 1.8 3.2 Abs Eosin <0.46 k/uL 7.84 (H) 0.49 (H) 0.13 0.27 Baso% % 6.0 1.7 1.1 1.0 Abs Baso <0.11 k/uL 9.41 (H) 0.12 (H) 0.08 0.08 [place]% % 6.0 Myelo% % 10.0 Blast <=0.0 [...] which included preparing to see the patient, [id number] patient care, completing clinical documentation, obtaining and/or reviewing separately obtained history, performing a medically appropriate examination, counseling and educating the pat ient/family/caregiver, ordering medications, tests, or procedures, communicating with other HCPs (not separately reported), and communicating results to the patient/family/caregiver. Fabiano Liz DO documented in this encounterLima City Hospital06-29-2023 Miscellaneous Notes* Telephone Encounter - Ligia Mtz RN - 09/20/2022 4:29 PM EDT Patient informed of Dr. Liz's verbal response, stated understanding. Patient informed to contact her dentist if she has any worsening s/s. Patient stated understanding. Ligia Mtz RN documented in this encounterLima City Hospital06-08-2023 Miscellaneous Notes* Telephone Encounter - Alisha [...] CMP. Fabiano Liz DO documented in this encounterLima City Hospital06-06-2023 Miscellaneous Notes* Telephone Encounter - Ligia [...] Patient is on her way to the [facility] on [facility]. Patient stated she is prone to yeast infections if she goes on antibiotics;per mauromp diflucan and Bosutinib should be avoided. Patient advised to sweet pickle maker monistat (if prescribed antibiotics), increase probiotics and space out 2 hours apart from antibiotics, and eat yogurt . Patient stated understanding. This nurse will review express care notes tomorrow. Ligia Mtz RN * Telephone Encounter - Ligia Mtz RN - 08/27/2022 4:05 PM EDT [facility] Care Coordination FOLLOW-UP NOTE Patient identified by [...] Mtz RN - 08/23/2022 4:32 PM EDT [facility] Care Coordination FOLLOW-UP NOTE Patient identified by [...] RN August 23, 2022 documented in this encounterLima City Hospital06-05-2023 History of Present illness Narrative* Beatris [...] 27, 2022 5:29 PM documented in this encounterLima City Hospital06-05-2023 History of Present illness Narrative* Lori Solano APRN.SUGAR REFINERY SUPERVISOR - 08/27/2022 5:14 PM EDT This note was created using SmartCrowdzriter. Subjective Libia Olivas is a 47 year [...] been using Zyrtec She is leaving for [place] this . The history is provided by the patient. No full time staff interpreter was used. Cough This is a [...] visualized and normal. Hearing improved. Lori Solano APRN.SUGAR REFINERY SUPERVISOR documented in this encounterLima City Hospital05-31-2023 Miscellaneous Notes* Telephone Encounter - Sona Berrios Pss - 08/22/2022 3:10 PM EDT Scheduled [...] Mtz RN * Telephone Encounter - Sasha Bullard - 08/17/2022 4:59 PM EDT Patient called [...] comply. Ligia Mtz RN documented in this encounterLima City Hospital05-11-2023 Miscellaneous Notes* Telephone Encounter - Fabiano Liz DO - 08/02/2022 10:50 PM EDT The following approved medication requests have been transmitted electronically. Requested Prescriptions Signed Prescriptions Disp Refills bosutinib (BOSULIF) 400 mg tablet 30 tablet 5 Sig: Take 1 tablet (400 mg) by mouth once daily with food. Authorizing Provider: FABIANO LIZ DO * Telephone Encounter - Vilam Naqvi, [facility] - 08/02/2022 2:22 PM EDT Prior authorization was approved for Bosulif. Plan Name: Jasmyne BOWIE reference number: [id number] Approval Dates: 07/01/2022 - 07/31/2023 However, s/he is required to use [facility] to fill this medication. Will queue prescription(s) to go to designated specialty pharmacy. For reference, their pharmacy phone number is [phone]. No further action by [facility]. Vilma Naqvi, PharmD Clinical Pharmacist, Oncology [facility] P: , F: Pool: P CC [facility] Pool #: [id number] documented in this encounterLima City Hospital05-04-2023 History of Present illness Narrative* Margaret Zaragoza (Mapping Pilot) - 07/26/2022 2:52 PM EDT [facility] received prescription(s) for Bosulif from Dr. Liz's office. Benefits investigation was conducted, indicating that a prior authorization is required by patient's insurance plan with [employer]. Encounter will be updated once prior authorization has been submitted by [facility]. Margaret Zaragoza [facility] documented in this encounterLima City Hospital05-04-2023 Miscellaneous Notes* Telephone Encounter - Gia [...] pharmacy. Fabiano Liz DO documented in this encounterLima City Hospital05-03-2023 Miscellaneous Notes* Telephone Encounter - Gia [...] office. Gia Marsh LPN documented in this encounterLima City Hospital05-03-2023 Procedure note* Fabiano Liz DO - 07/25/2022 1:13 PM EDTAssociated Order(s): BONE MARROW BIOPSY Post-Procedure Diagnose(s): Bandemia BEDSIDE PROCEDURE NOTE BONE MARROW BIOPSY Performed by: Fabiano Liz DO Authorized by: Fabiano Liz DO Where was Patient When this Procedure was Performed [facility] Informed Consent Consent Obtained: Written [place] Protocol A moment to CARE was completed. SIGN IN Personnel directly involved with the procedure wore the appropriate PPE. Special Equipment: Yes (OnCText A Cab biopsy system) Patient/Surrogate Stated/Verified: Patient name, Date [...] 2022 TIME: 1:13 PM documented in this encounterLima City Hospital05-03-2023 History of Present illness Narrative* Claudia Foote RN - 07/25/2022 1:00 PM EDT Pt discharged to home with after BMBX with dry sterile dressing in place. No drainage noted. Post-procedure care reviewed with patient. Pt to call with any complaints of redness, swelling, increased or unresolved pain, bleeding, chills, bruising, and/or fever. Pt verbalized understanding. Claudia Foote RN documented in this encounterLima City Hospital05-03-2023 History of Present illness Narrative* Fabiano [...] since hadn't had in a year) at [facility] and incidental leukocytosis with WBC count 135.68K. Hgb and platelets normal. Recheck at [facility] 07/21/2022 revealed total white count 131.8 [...] No jaundice or rash. No petechiae. NEUROLOGIC: pug machine operator II-XII are grossly intact. No focal motor [...] Lymph 1.00 - 4.00 k/uL 4.22 (H) Armstrong% % 11.0 Abs Armstrong <0.87 k/uL 15.49 (H) Eosin% % 2.0 Abs Eosin <0.46 k/uL 2.82 (H) Baso% % 1.0 Abs Baso <0.11 k/uL 1.41 (H) [place]% % 6.0 Myelo% % 17.0 Blast <=0.0 [...] her recent CBC and differential done at [facility] and discussed the work- up with her [...] which included preparing to see the patient, [id number] patient care, completing clinical documentation, obtaining and/or reviewing separately obtained history, performing a medically appropriate examination, counseling and educating the pat ient/family/caregiver, communicating with other HCPs (not separately reported), independently interpreting results (not separately reported), and communicating results to the patient/family/caregiver. Fabiano Liz DO documented in this encounterJenny Ville [address]-02-2023 Miscellaneous Notes* Telephone Encounter - Alisha Romero LPN - 07/24/2022 8:53 AM EDT Patient read Texturat message. Alisha Romero LPN * Telephone Encounter - Fabiano Liz DO - 07/23/2022 6:06 PM EDT Her uric acid is elevated. Please advise her to start allopurinol 300 mg tablet once daily beginning tomorrow if possible. Fabiano Liz DO documented in this encounterLima City Hospital05-01-2023 Miscellaneous Notes* Telephone Encounter - Alisha [...] Romero LPN * Telephone Encounter - Alisha Romero LPN - 07/23/2022 12:00 PM EDT Information received placed in Dr. Liz's mailbox for review. Requested OV note and additional labs. Alisha Rmoero LPN * Telephone Encounter - Judith Duke Pss - 07/23/2022 11:12 AM EDT , Dr.Lisa Calle called wanting to speak to you about Pepper. She stated they had sent over a new patient referral, our nurses have requested additional information from their office. Krystina is requesting a call back to her on her cell phone when you are able at [phone] Judith Duke Pss documented in this encounterLima City HospitalEvaluation noteNo assessment information availableWUpper Valley Medical Center Work Phone: Evaluation note* Diagnosis Onset Date Resolution Status BMI 39.0-39.9,adult acute Climacteric acute Other obesity acute Encounter for routine gynecological examination noneactive [facility] Work Phone: Evaluation note* Diagnosis Onset Date Resolution Status BMI 39.0-39.9,adult acute Climacteric acute Other obesity acute Encounter for routine gynecological examination noneactive BMI 39.0-39.9,adult acute Climacteric acute GERD (gastroesophageal reflux disease) acute Other obesity acute [facility] Work Phone: evaluation note* Diagnosis Onset Date Resolution Status Climacteric acute GERD (gastroesophageal reflux disease) acute Other obesity acute Other obesity acute BMI 37.0-37.9, adult acute GERD (gastroesophageal reflux disease) acute Other obesity acute [facility] Work Phone: Evaluation note* Diagnosis Other [...] disease) acute Hypercholesterolemia acute Other obesity acute [facility] Work Phone: evaluation note* Diagnosis CML [...] Date Resolution Status Breast mass, right acute [facility] Work Phone: Evaluation note* Diagnosis CML [...] Diagnosis Onset Date Resolution Status Climacteric acute [id number] acute [facility] Work Phone: Evaluation note* Diagnosis CML [...] claudication present- Primary documented in this encounter [facility]* Diagnosis CML (chronic myelocytic leukemia) [...] having achieved remission documented in this encounter [facility] ClinicReason for referral (narrative)* Outpatient Procedure (Routine) - Pending Review Specialty Diagnoses / Procedures Referred By Contac t Referred To [facility] Diagnoses CML (chronic myeloid leukemia) (HCC) Encounter for monitoring cardiotoxic drug therapy Procedures ECHO ECHO TTHRC R-T 2D W/WOM-MODE COMPL SPEC&COLR D Fabiano Liz, [address] [place] [address] [facility] [place] [address] [place] [address] Referral ID Status Reason Start Date Expiration Date Visits Requested Visits Authorized [id number] Pending Review Auto-Generat ed Referral 10/24/2022 10/24/2023 1 1 [facility] for referral (narrative)* Outpatient Procedure (Routine) - Closed Specialty Diagnoses / Procedures Referred By Goldieac t Referred To Contact [facility] Diagnoses CML (chronic myelocytic leukemia) (HCC) Procedures ECHO ECHO TTHRC R-T 2D W/WOM-MODE COMPL SPEC&COLR D Fabiano Liz, DO [address] [place] [address] [facility] [place] [address] [place] [id number] Referral ID Status Reason Start Date Expiration Date V isits Requested Visits Authorized [id number] Closed Auto-Generate d Referral 04/26/2023 03/24/2024 1 1 * Outpatient Procedure (Routine) - Closed Specialty Diagnoses / Procedures [facility] Diagnoses CML (chronic myelocytic leukemia) (HCC) Dyspnea and respiratory abnormalities Procedures ECG COMPLETE ECG ROUTINE ECG W/LEAST 12 LDS W/I&R Fabiano Liz DO [address] [place] [address] [facility] [place] [address] [place] [id number] Referral ID Status Reason Start Date Expiration Date V isits Requested Visits Authorized [id number] Closed Auto-Generate d Referral 04/26/2023 04/25/2024 1 1 [facility] for referral (narrative)* Diagnostic Procedure Only (Routine) - Closed Specialty Diagnoses / Procedures [facility] Referred To Contact [facility] Diagnoses CML (chronic myelocytic leukemia) (HCC) Procedures XR FEMUR GENERAL 2V AP/LAT LEFT RADIOLOGIC EXAMINATION FEMUR MINIMUM 2 VIEWS Devika Brush APRN.SUGAR REFINERY SUPERVISOR [address] [place] [address] [place] [address] Referral ID Status Reason Start Date Expiration Date V isits Requested Visits Authorized [id number] Closed Auto-Generate d Referral 07/25/2023 08/23/2024 1 1 [facility] HospitalReason for referral (narrative)No reason for referral information availableWUpper Valley Medical Center Work Phone: Reason for visit Narrative* Diagnostic Procedure Only (Routine) - Closed Specialty Diagnoses / Procedures Referred By Contac t Referred To Contact XR IMAGING Diagnoses CML (chronic myelocytic leukemia) (HCC) Procedures XR FEMUR GENERAL 2V AP/LAT LEFT RADIOLOGIC EXAMINATION FEMUR MINIMUM 2 VIEWS Devika Brush APRN.CNP [address] [place] [address] [place] [address] Referral ID Status Reason Start Date Expiration Date V isits Requested Visits Authorized [id number] Closed Auto-Generate d Referral 07/25/2023 08/23/2024 1 1 [facility] Family History No Family History Records Found Relationship Condition Age at Onset Recorded Date/T brad Not Specified Myocardial infarction Unknown Hypertension Unknown Disorder of thyroid Unknown father Coronary artery disease Unknown Diabetes mellitus Unknown Advance Directives No Advanced Directives Records Found Advance Directive Response Recorded Date/ Time Advance Directives No October 01 2:28pm Living Will Yes May 08 12:54pm Power of Sewer Connector Yes May 08, 2019 12:54pm Advance Directive Response Recorded Date/ Time Advance Directives No October 01 1:28pm Living Will Yes May 08 11:54am Power of Sewer Connector Yes May 08, 2019 11:54am Advance Directive Response Recorded Date/ Time Advance Directives No April 5:39pm Living Will Yes May 21 5:39pm Power of Sewer Connector Yes May 21, 2022 5:39pm Advance Directive Response Recorded Date/ Time Living Will Yes October 30, 2023 10:59am Do you have a Healthcare Power of Sewer Connector? 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) Reason for Visit BMI 39.0-39.9,adult Climacteric Other obesity Encounter for routine gynecological examination Chief Complaint LUMBAR SPONDY SCREENING 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) E ORDER 3 WK FU, weight loss Reason for Visit BMI 39.0-39.9,adult Climacteric Other obesity Encounter for routine gynecological examination BMI 39.0-39.9,adult Climacteric GERD (gastroesophageal reflux disease) Other obesity Chief Complaint LUMBAR SPONDY SCREENING 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) E ORDER 3 WK FU, weight loss [...] Visit Breast mass, right Chief Complaint 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) CML Reason for Visit Climacteric [id number] Chief Complaint Admit Date 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 Krystina Calle DO Primary Care Provider Active Dr. Anabelle Peña MD Attending Provider Activ e Dr. Monie Mckeon MD Referring Provider Active Team Status: Inactive Member Role Status Dates Dr. Krystina Calle DO Primary Care Provider Active Dr. Monie Mckeon MD Attending Provider Active Med Surg Rn Relationship Specialty Start Date End Date Krystina Calle DO PCP - General Family Medicine 05/20/15 Med Surg Rn Relationship Specialty Start Date End Date Krystina Calle DO PCP - General Family Medicine 05/20/15 Med Surg Rn Relationship Specialty Start Date End Date Krystina Calle PCP - General Family Medicine 05/20/15 Med Surg Rn Relationship Specialty Start Date End Date Krystina CalleDO PCP - General Family Medicine 05/20/15 [address] Mckeon [address] [place] [address] MACHINE FEEDER 07/25/22 Med Surg Rn Relationship Specialty Start Date End Date Krystina Calle DO PCP - General Family Medicine 05/20/15 Monie Mckeon [address] [place] [address] MACHINE FEEDER 07/25/22 Med Surg Rn Relationship Specialty Start Date End Date Krystina Calle DO PCP - General Family Medicine 05/20/15 Monie Mckeon [address] [place] [address] MACHINE FEEDER 07/25/22 Med Surg Rn Relationship Specialty Start Date End Date Krystina Calle DO PCP - General Family Medicine 05/20/15 [address] [facility] [address] MACHINE FEEDER 07/25/22 Med Surg Rn Relationship Specialty Start Date End Date Krystina Calle PCP - General Family Medicine 05/20/15 Monie Mckeon [address] [facility] [address] MACHINE FEEDER 07/25/22 Med Surg Rn Relationship Specialty Start Date End Date Krystina Calle PCP - General Family Medicine 05/20/15 Monie Mckeon [address] [place] [address] MACHINE FEEDER 07/25/22 Ligia Mtz RN Specialty Milk Tanker Driver Oncology 07/30/22 Med Surg Rn Relationship Specialty Start Date End Date Krystina Calle DO PCP - General Family Medicine 05/20/15 [address] [facility] [address] MACHINE FEEDER 07/25/22 Ligia Mtz RN Specialty Milk Tanker Driver Oncology 07/30/22 Med Surg Rn Relationship Specialty Start Date End Date Krystina Calle PCP - General Family Medicine 05/20/15 [address]on [address] [place] [address] MACHINE FEEDER 07/25/22 Ligia Mtz RN Specialty Milk Tanker Driver Oncology 07/30/22 Med Surg Rn Relationship Specialty Start Date End Date CarlyleatulKrystina DO PCP - General Family Medicine 05/20/15 Monie Mckeon [address] [address] MACHINE FEEDER 07/25/22 Ligia Mtz RN Specialty Milk Tanker Driver Oncology 07/30/22 Med Surg Rn Relationship Specialty Start Date End Date LucKrystina DO PCP - General Family Medicine 05/20/15 Monie Mckeon [address] [id number] MACHINE FEEDER 07/25/22 Ligia Mtz RN Specialty Milk Tanker Driver Oncology 07/30/22 Med Surg Rn Relationship Specialty Start Date End Date Bisi Callea Aron PCP - General Family Medicine 05/20/15 Monie Mckeon [address] [id number] MACHINE FEEDER 07/25/22 Ligia Mtz RN Specialty Milk Tanker Driver Oncology 07/30/22 Med Surg Rn Relationship Specialty Start Date End Date LucKrystina DO PCP - General Family Medicine 05/20/15 Monie Mckeon [address] [address] MACHINE FEEDER 07/25/22 Ligia Mtz RN Specialty Milk Tanker Driver Oncology 07/30/22 Med Surg Rn Relationship Specialty Start Date End Date Krystina Calle DO PCP - General Family Medicine 05/20/15 Monie Mckeon [address] [facility], [place] [id number] MACHINE FEEDER 07/25/22 Ligia Mtz RN Specialty Milk Tanker Driver Oncology 07/30/22 Med Surg Rn Relationship Specialty Start Date End Date Krystina Calle DO PCP - General Family Medicine 05/20/15 Monie Mckeon [address] [place] [address], [place] [id number] MACHINE FEEDER 07/25/22 Ligia Mtz RN Specialty Milk Tanker Driver Oncology 07/30/22 Team Status: Inactive Member Role Status Dates Dr. Krystina Calle DO Primary Care Provider Active Mee Conroy WELFARE VISITOR, WELFARE VISITOR-C Attending Provider, Referring Provider Active Med Surg Rn Relationship Specialty Start Date End Date Krystina Calle DO PCP - General Family Medicine 05/20/15 Monie Mckeon [address] [place] [address], [place] [id number] MACHINE FEEDER 07/25/22 Ligia Mtz RN Specialty Milk Tanker Driver Oncology 07/30/22 Med Surg Rn Relationship Specialty Start Date End Date Krystina Calle DO PCP - General Family Medicine 05/20/15 Monie Mckeon [address] [place] [address], [place] [phone] MACHINE FEEDER 07/25/22 Ligia Mzt, RN Specialty Milk Tanker Driver Oncology 07/30/22 Kasandra Jones LISW [address] [place] [address] [facility]On[facility] 01/24/23 Med Surg Rn Relationship Specialty Start Date End Date Luc Krystina A, PCP - General Family Medicine 05/20/15 Monie Mckeon [address] [place] [address] Independent Freight Agent 07/25/22 Ligia Mtz RN Specialty Milk Tanker Driver Oncology 07/30/22 Kasandra Jones LISW [address] [place] [address] [facility] 01/24/23 Fabiano Liz DO [address] [place] [address] Hematology/Oncology 04/26/23 Med Surg Rn Relationship Specialty Start Date End Date Krystina Calle PCP - General Family Medicine 05/20/15 Monie Mckeon [address] [place] [address] Independent Freight Agent 07/25/22 Ligia Mtz RN Specialty Milk Tanker Driver Oncology 07/30/22 Kasandra Jones LISW [address] [place] [address] [facility] 01/24/23 Fabiano Liz DO [address] [place] [address] Hematology/Oncology 04/26/23 Med Surg Rn Relationship Specialty Start Date End Date Krystina Calle DO PCP - General Family Medicine 05/20/15 Monie Mckeon [address] [place] [address] Independent Freight Agent 07/25/22 Ligia Mtz, RN Specialty Milk Tanker Driver Oncology 07/30/22 Kasandra Jones, NEWS ASSIGNMENT EDITOR [address] [place] [address] [facility] 01/24/23 Fabiano Liz DO [address] [place] [address] Hematology/Oncology 04/26/23 Med Surg Rn Relationship Specialty Start Date End Date Krystina Calle DO PCP - General Family Medicine 05/20/15 Monie Mckeon [address] [facility] [address] Independent Freight Agent 07/25/22 Ligia Mtz RN Specialty Milk Tanker Driver Oncology 07/30/22 Kasandra Jones LISW [address] [place] [address] [facility]Oncology 01/24/23 Fabiano Liz DO [address] [place] [address] Hematology/Oncology 04/26/23 Med Surg Rn Relationship Specialty Start Date End Date Krystina Calle DO PCP - General Family Medicine 05/20/15 Monie Mckeon MD [address] [facility] [address] Independent Freight Agent 07/25/22 Ligia Mtz, RN Specialty Milk Tanker Driver Oncology 07/30/22 Kasandra Jones LISW [address] [place] [address] [facility]/Oncology 01/24/23 Fabiano Liz DO [address] [place] [address] Hematology/Oncology 04/26/23 Med Surg Rn Relationship Specialty Start Date End Date LucKrystina DO PCP - General Family Medicine 05/20/15 Monie Mckeon MD [address] [place] [address] Independent Freight Agent 07/25/22 Ligia Mtz RN Specialty Milk Tanker Driver Oncology 07/30/22 Kasandra Jones LISW [address] [place] [address] [facility]/Oncology 01/24/23 Fabiano Liz DO [address] [address] Hematology/Oncology 04/26/23 Med Surg Rn Relationship Specialty Start Date End Date LucKrystina DO PCP - General Family Medicine 05/20/15 Monie Mckeon MD [address] [facility] [address] Independent Freight Agent 07/25/22 Ligia Mtz RN Specialty Milk Tanker Driver Oncology 07/30/22 Kasandra Jones, ERNESTO [address] [place] [address] [facility]On[facility] 01/24/23 Fabiano Liz DO [address] [place] [address] Hematology/Oncology 04/26/23 Med Surg Rn Relationship Specialty Start Date End Date Krystina Calle PCP - General Family Medicine 05/20/15 Monie Mckeon MD [address] [place] [address] Independent Freight Agent 07/25/22 Ligia Mtz, WENDIE Specialty Milk Tanker Driver Oncology 07/30/22 Kasandra Jones LISW [address] [place] [address] [facility]On[facility] 01/24/23 Fabiano Liz DO [address] [place] [address] Hematology/Oncology 04/26/23 Med Surg Rn Relationship Specialty Start Date End Date Krystina Calle PCP - General Family Medicine 05/20/15 Monie Mckeon MD [address] [place] [address] Independent Freight Agent 07/25/22 Ligia Mtz RN Specialty Milk Tanker Driver Oncology 07/30/22 Kasandra Jones LISW [address] [place] [address] [facility]/Oncology 01/24/23 Fabiano Liz DO [address] [place] [address] Hematology/Oncology 04/26/23 Med Surg Rn Relationship Specialty Start Date End Date CarlyleatulKrystina DO PCP - General Family Medicine 05/20/15 Monie Mckeon MD [address] [facility] [address] Independent Freight Agent 07/25/22 Ligia Mtz, RN Specialty Milk Tanker Driver Oncology 07/30/22 Kasandra Jones, NEWS ASSIGNMENT EDITOR [address] [place] [address] [facility]On[facility] 01/24/23 Fabiano Liz DO [address] [place] [address] Hematology/Oncology 04/26/23 Med Surg Rn Relationship Specialty Start Date End Date Krystina Calle DO PCP - General Family Medicine 05/20/15 Monie Mckeon MD [address] [facility] [address] Independent Freight Agent 07/25/22 Ligia Mtz RN Specialty Milk Tanker Driver Oncology 07/30/22 Kasandra Jones LISW [address] [place] [address] [facility]On[facility] 01/24/23 Fabiano Liz DO [address] [place] [address] Hematology/Oncology 04/26/23 Med Surg Rn Relationship Specialty Start Date End Date Krystina Calle DO PCP - General Family Medicine 05/20/15 Monie Mckeon MD [address] [place] [address] Independent Freight Agent 07/25/22 Ligia Mtz RN Specialty Milk Tanker Driver Oncology 07/30/22 Kasandra Jones, NEWS ASSIGNMENT EDITOR [address] [place] [address] [facility]On[facility] 01/24/23 Fabiano Liz DO [address] [place] [address] Hematology/Oncology 04/26/23 Med Surg Rn Relationship Specialty Start Date End Date CarlyleatulKrystina DO PCP - General Family Medicine 05/20/15 Monie Mckeon MD [address] [place] [address] Independent Freight Agent 07/25/22 Ligia Mtz RN Specialty Milk Tanker Driver Oncology 07/30/22 Kasandra Jones, NEWS ASSIGNMENT EDITOR [address] [place] [address] [facility]Oncology 01/24/23 Fabiano Liz DO [address] [facility] [place] [address] Hematology/Oncology 04/26/23 Med Surg Rn Relationship Specialty Start Date End Date Krystina Calle DO PCP - General Family Medicine 05/20/15 Monie Mckeon MD [address] [place] [address] Independent Freight Agent 07/25/22 Doup, Ligia, RN Specialty Milk Tanker Driver Oncology 07/30/22 Med Surg Rn Relationship Specialty Start Date End Date Krystina Calle DO PCP - General Family Medicine 05/20/15 Monie Mckeon MD [address] [place] [address] Independent Freight Agent 07/25/22 Ligia Mtz RN Specialty Milk Tanker Driver Oncology 07/30/22 Kasandra Jones, NEWS ASSIGNMENT EDITOR [address] [place] [address] [facility]Oncology 01/24/23 Fabiano Liz DO [address] [place] [address] Hematology/Oncology 04/26/23 Med Surg Rn Relationship Specialty Start Date End Date Krystina Calle DO PCP - General Family Medicine 05/20/15 Monie Mckeon MD [address] [place] [address] Independent Freight Agent 07/25/22 Ligia Mtz RN Specialty Milk Tanker Driver Oncology 07/30/22 Kasandra Jones, NEWS ASSIGNMENT EDITOR [address] [place] [address] [facility]Oncology 01/24/23 Fabiano Liz DO [address] [place] [address] Hematology/Oncology 04/26/23 Med Surg Rn Relationship Specialty Start Date End Date Krystina Calle DO PCP - General Family Medicine 05/20/15 Monie Mckeon MD [address] [place] [address] Independent Freight Agent 07/25/22 Ligia Mtz RN Specialty Milk Tanker Driver Oncology 07/30/22 Kasandra Jones, NEWS ASSIGNMENT EDITOR [address] [place] [address] [facility]/Oncology 01/24/23 Fabiano Liz DO [address] [facility] [place] [address] Hematology/Oncology 04/26/23 Med Surg Rn Relationship Specialty Start Date End Date Krystina Calle DO PCP - General Family Medicine 05/20/15 Monie Mckeon MD [address] [place] [address] Independent Freight Agent 07/25/22 Ligia Mtz RN Specialty Milk Tanker Driver Oncology 07/30/22 Kasandra Jones, NEWS ASSIGNMENT EDITOR [address] [place] [address] [facility]/Oncology 01/24/23 Fabiano Liz DO [address] [facility] [place] [address] Hematology/Oncology 04/26/23 Med Surg Rn Relationship Specialty Start Date End Date Krystina Calle DO PCP - General Family Medicine 05/20/15 Monie Mckeon MD [address] [place] [address] Independent Freight Agent 07/25/22 Ligia Mtz RN Specialty Milk Tanker Driver Oncology 07/30/22 Kasandra Jones LISW [address] [place] [address] [facility]/Oncology 01/24/23 Fabiano Liz DO [address] [place] [address] Hematology/Oncology 04/26/23 Med Surg Rn Relationship Specialty Start Date End Date Krystina Calle DO PCP - General Family Medicine 05/20/15 Monie Mckeon MD [address] [place] [address] Independent Freight Agent 07/25/22 Ligia Mtz, WENDIE Specialty Milk Tanker Driver Oncology 07/30/22 Kasandra Jones LISW [address] [place] [address] [facility]/Oncology 01/24/23 Fabiano Liz DO [address] [place] [address] Hematology/Oncology 04/26/23 Team Status: Inactive Member Role [...] June 18, 2024 End: June 18, 2024 Med Surg Rn Relationship Specialty Start Date End Date Krystina Calle DO PCP - General Family Medicine 05/20/15 Monie Mckeon MD [address] [place] [id number] Independent Freight Agent 07/25/22 Ligia Mtz RN Specialty Milk Tanker Driver Oncology 07/30/22 Kasandra Jones LISW [address] [place] [address] [facility] H[facility]/Oncology 01/24/23 Fabiano Liz DO [address] [facility], [place] [id number] Hematology/Oncology 04/26/23 Team Status: Inactive Member Role [...] or prosecute any alcohol or drug abuse patient.[facility] the event this information is protected by the Federal Confidentiality of Alcohol and Drug Abuse Patient Records regulations: The Federal rules restrict any use of the information to criminally investigate or prosecute any alcohol or drug abuse patient.[facility]In the event this information is protected by the Federal Confidentiality of Alcohol and Drug Abuse Patient Records regulations: The Federal rules restrict any use of the information to criminally investigate or prosecute any alcohol or drug abuse patient.[facility]In the event this information is protected by the Federal Confidentiality of Alcohol and Drug Abuse Patient Records regulations: The Federal rules restrict any use of the information to criminally investigate or prosecute any alcohol or drug abuse patient.[facility]In the event this information is protected by the Federal Confidentiality of Alcohol and Drug Abuse Patient Records regulations: The Federal rules restrict any use of the information to criminally investigate or prosecute any alcohol or drug abuse patient.[facility]In the event this information is protected by the Federal Confidentiality of Alcohol and Drug Abuse Patient Records regulations: The Federal rules restrict any use of the information to criminally investigate or prosecute any alcohol or drug abuse patient.[facility]In the event this information is protected by the Federal Confidentiality of Alcohol and Drug Abuse Patient Records regulations: The Federal rules restrict any use of the information to criminally investigate or prosecute any alcohol or drug abuse patient.[facility]In the event this information is protected by the Federal Confidentiality of Alcohol and Drug Abuse Patient Records regulations: The Federal rules restrict any use of the information to criminally investigate or prosecute any alcohol or drug abuse patient.[facility]In the event this information is protected by the Federal Confidentiality of Alcohol and Drug Abuse Patient Records regulations: The Federal rules restrict any use of the information to criminally investigate or prosecute any alcohol or drug abuse patient.[facility]In the event this information is protected by the Federal Confidentiality of Alcohol and Drug Abuse Patient Records regulations: The Federal rules restrict any use of the information to criminally investigate or prosecute any alcohol or drug abuse patient.[facility] HospitalIn the event this information is protected by the Federal Confidentiality of Alcohol and Drug Abuse Patient Records regulations: The Federal rules restrict any use of the information to criminally investigate or prosecute any alcohol or drug abuse patient.[facility] HospitalIn the event this information is protected by the Federal Confidentiality of Alcohol and Drug Abuse Patient Records regulations: The Federal rules restrict any use of the information to criminally investigate or prosecute any alcohol or drug abuse patient.[facility] HospitalIn the event this information is protected by the Federal Confidentiality of Alcohol and Drug Abuse Patient Records regulations: The Federal rules restrict any use of the information to criminally investigate or prosecute any alcohol or drug abuse patient.[facility] HospitalIn the event this information is protected by the Federal Confidentiality of Alcohol and Drug Abuse Patient Records regulations: The Federal rules restrict any use of the information to criminally investigate or prosecute any alcohol or drug abuse patient.[facility] HospitalIn the event this information is protected by the Federal Confidentiality of Alcohol and Drug Abuse Patient Records regulations: The Federal rules restrict any use of the information to criminally investigate or prosecute any alcohol or drug abuse patient.[facility] HospitalIn the event this information is protected by the Federal Confidentiality of Alcohol and Drug Abuse Patient Records regulations: The Federal rules restrict any use of the information to criminally investigate or prosecute any alcohol or drug abuse patient.[facility] HospitalIn the event this information is protected by the Federal Confidentiality of Alcohol and Drug Abuse Patient Records regulations: The Federal rules restrict any use of the information to criminally investigate or prosecute any alcohol or drug abuse patient.[facility] HospitalIn the event this information is protected by the Federal Confidentiality of Alcohol and Drug Abuse Patient Records regulations: The Federal rules restrict any use of the information to criminally investigate or prosecute any alcohol or drug abuse patient.[facility] HospitalIn the event this information is protected by the Federal Confidentiality of Alcohol and Drug Abuse Patient Records regulations: The Federal rules restrict any use of the information to criminally investigate or prosecute any alcohol or drug abuse patient.[facility] HospitalIn the event this information is protected by the Federal Confidentiality of Alcohol and Drug Abuse Patient Records regulations: The Federal rules restrict any use of the information to criminally investigate or prosecute any alcohol or drug abuse patient.[facility] HospitalIn the event this information is protected by the Federal Confidentiality of Alcohol and Drug Abuse Patient Records regulations: The Federal rules restrict any use of the information to criminally investigate or prosecute any alcohol or drug abuse patient.[facility] HospitalIn the event this information is protected by the Federal Confidentiality of Alcohol and Drug Abuse Patient Records regulations: The Federal rules restrict any use of the information to criminally investigate or prosecute any alcohol or drug abuse patient.[facility] HospitalIn the event this information is protected by the Federal Confidentiality of Alcohol and Drug Abuse Patient Records regulations: The Federal rules restrict any use of the information to criminally investigate or prosecute any alcohol or drug abuse patient.[facility] HospitalIn the event this information is protected by the Federal Confidentiality of Alcohol and Drug Abuse Patient Records regulations: The Federal rules restrict any use of the information to criminally investigate or prosecute any alcohol or drug abuse patient.[facility] HospitalIn the event this information is protected by the Federal Confidentiality of Alcohol and Drug Abuse Patient Records regulations: The Federal rules restrict any use of the information to criminally investigate or prosecute any alcohol or drug abuse patient.[facility] HospitalIn the event this information is protected by the Federal Confidentiality of Alcohol and Drug Abuse Patient Records regulations: The Federal rules restrict any use of the information to criminally investigate or prosecute any alcohol or drug abuse patient.[facility] HospitalIn the event this information is protected by the Federal Confidentiality of Alcohol and Drug Abuse Patient Records regulations: The Federal rules restrict any use of the information to criminally investigate or prosecute any alcohol or drug abuse patient.[facility] HospitalIn the event this information is protected by the Federal Confidentiality of Alcohol and Drug Abuse Patient Records regulations: The Federal rules restrict any use of the information to criminally investigate or prosecute any alcohol or drug abuse patient.[facility] HospitalIn the event this information is protected by the Federal Confidentiality of Alcohol and Drug Abuse Patient Records regulations: The Federal rules restrict any use of the information to criminally investigate or prosecute any alcohol or drug abuse patient.[facility] HospitalIn the event this information is protected [...] or prosecute any alcohol or drug abuse patient.[facility] HospitalIn the event this information is protected by the Federal Confidentiality of Alcohol and Drug Abuse Patient Records regulations: The Federal rules restrict any use of the information to criminally investigate or prosecute any alcohol or drug abuse patient.[facility] HospitalIn the event this information is protected by the Federal Confidentiality of Alcohol and Drug Abuse Patient Records regulations: The Federal rules restrict any use of the information to criminally investigate or prosecute any alcohol or drug abuse patient.[facility] HospitalIn the event this information is protected by the Federal Confidentiality of Alcohol and Drug Abuse Patient Records regulations: The Federal rules restrict any use of the information to criminally investigate or prosecute any alcohol or drug abuse patient.[facility] HospitalIn the event this information is protected by the Federal Confidentiality of Alcohol and Drug Abuse Patient Records regulations: The Federal rules restrict any use of the information to criminally investigate or prosecute any alcohol or drug abuse patient.[facility] HospitalIn the event this information is protected by the Federal Confidentiality of Alcohol and Drug Abuse Patient Records regulations: The Federal rules restrict any use of the information to criminally investigate or prosecute any alcohol or drug abuse patient.[facility] HospitalIn the event this information is protected by the Federal Confidentiality of Alcohol and Drug Abuse Patient Records regulations: The Federal rules restrict any use of the information to criminally investigate or prosecute any alcohol or drug abuse patient.[facility] HospitalIn the event this information is protected by the Federal Confidentiality of Alcohol and Drug Abuse Patient Records regulations: The Federal rules restrict any use of the information to criminally investigate or prosecute any alcohol or drug abuse patient.[facility] HospitalIn the event this information is protected by the Federal Confidentiality of Alcohol and Drug Abuse Patient Records regulations: The Federal rules restrict any use of the information to criminally investigate or prosecute any alcohol or drug abuse patient.[facility] HospitalIn the event this information is protected by the Federal Confidentiality of Alcohol and Drug Abuse Patient Records regulations: The Federal rules restrict any use of the information to criminally investigate or prosecute any alcohol or drug abuse patient.[facility] HospitalIn the event this information is protected by the Federal Confidentiality of Alcohol and Drug Abuse Patient Records regulations: The Federal rules restrict any use of the information to criminally investigate or prosecute any alcohol or drug abuse patient.[facility] HospitalIn the event this information is protected by the Federal Confidentiality of Alcohol and Drug Abuse Patient Records regulations: The Federal rules restrict any use of the information to criminally investigate or prosecute any alcohol or drug abuse patient.[facility] HospitalIn the event this information is protected by the Federal Confidentiality of Alcohol and Drug Abuse Patient Records regulations: The Federal rules restrict any use of the information to criminally investigate or prosecute any alcohol or drug abuse patient.[facility] HospitalIn the event this information is protected by the Federal Confidentiality of Alcohol and Drug Abuse Patient Records regulations: The Federal rules restrict any use of the information to criminally investigate or prosecute any alcohol or drug abuse patient.[facility] HospitalIn the event this information is protected by the Federal Confidentiality of Alcohol and Drug Abuse Patient Records regulations: The Federal rules restrict any use of the information to criminally investigate or prosecute any alcohol or drug abuse patient.[facility] HospitalIn the event this information is protected by the Federal Confidentiality of Alcohol and Drug Abuse Patient Records regulations: The Federal rules restrict any use of the information to criminally investigate or prosecute any alcohol or drug abuse patient.[facility] HospitalIn the event this information is protected by the Federal Confidentiality of Alcohol and Drug Abuse Patient Records regulations: The Federal rules restrict any use of the information to criminally investigate or prosecute any alcohol or drug abuse patient.[facility] HospitalIn the event this information is protected by the Federal Confidentiality of Alcohol and Drug Abuse Patient Records regulations: The Federal rules restrict any use of the information to criminally investigate or prosecute any alcohol or drug abuse patient.[facility] HospitalIn the event this information is protected by the Federal Confidentiality of Alcohol and Drug Abuse Patient Records regulations: The Federal rules restrict any use of the information to criminally investigate or prosecute any alcohol or drug abuse patient.[facility] the event this information is protected by the Federal Confidentiality of Alcohol and Drug Abuse Patient Records regulations: The Federal rules restrict any use of the information to criminally investigate or prosecute any alcohol or drug abuse patient.[facility]In the event this information is protected by the Federal Confidentiality of Alcohol and Drug Abuse Patient Records regulations: The Federal rules restrict any use of the information to criminally investigate or prosecute any alcohol or drug abuse patient.[facility] the event this information is protected by the Federal Confidentiality of Alcohol and Drug Abuse Patient Records regulations: The Federal rules restrict any use of the information to criminally investigate or prosecute any alcohol or drug abuse patient.[facility] the event this information is protected by the Federal Confidentiality of Alcohol and Drug Abuse Patient Records regulations: The Federal rules restrict any use of the information to criminally investigate or prosecute any alcohol or drug abuse patient.[facility]In the event this information is protected by the Federal Confidentiality of Alcohol and Drug Abuse Patient Records regulations: The Federal rules restrict any use of the information to criminally investigate or prosecute any alcohol or drug abuse patient.[facility]In the event this information is protected by the Federal Confidentiality of Alcohol and Drug Abuse Patient Records regulations: The Federal rules restrict any use of the information to criminally investigate or prosecute any alcohol or drug abuse patient.[facility]In the event this information is protected by the Federal Confidentiality of Alcohol and Drug Abuse Patient Records regulations: The Federal rules restrict any use of the information to criminally investigate or prosecute any alcohol or drug abuse patient.[facility]In the event this information is protected by the Federal Confidentiality of Alcohol and Drug Abuse Patient Records regulations: The Federal rules restrict any use of the information to criminally investigate or prosecute any alcohol or drug abuse patient.[facility]In the event this information is protected by the Federal Confidentiality of Alcohol and Drug Abuse Patient Records regulations: The Federal rules restrict any use of the information to criminally investigate or prosecute any alcohol or drug abuse patient.[facility] HospitalIn the event this information is protected by the Federal Confidentiality of Alcohol and Drug Abuse Patient Records regulations: The Federal rules restrict any use of the information to criminally investigate or prosecute any alcohol or drug abuse patient.[facility] Reason for Visit (unrecogniz ed section and content) Reason Comments Results High uric acid Reason Comments New Patient Evaluation Specialty Diagnoses / Procedures Referred By rFeedom roman Referred To Contact Hematology/Oncology / HEMATOLOGY/ONCOLOGY Diagnoses 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 VISITOR/LEUKEMIA/REF.DR.LISA CALLE* Procedures NEW PATIENT Fabiano Liz, DO [address] [place] [address] Fabiano Liz, DO [address] [place] [address] Referral ID Status Reason Start Date Expiration Date V isits Requested Visits Authorized [id number] Pending Review 07/25/2022 10/23/2022 1 1 Reason Comments urgent results Reason Comments Results Blood PCR testing Reason Onset Date Comments SPP Oral Oncology/hematology - Treatment Referra l 07/26/2022 Bosulif Insurance Authorization 07/26/2022 AZEB villanueva Reason Comments Bone Marrow Aspirate/Biopsy Reason Onset Date Comments Refill Request 08/02/2022 Reason Comments 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 Driver - 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 Oral Anti-Cance r Agents Follow-up (Bosutinib) Reason Comments Chest Congestion cough x 8 days Reason Comments Milk Tanker Driver - Other Follow-up Reason Comments Results Reason Comments Established Patient Reason Comments Results CXR Reason Onset Date Comments Refill Request 12/28/2022 Reason Comments Established Patient Specialty Diagnoses / Procedures Referred By Contac t Referred To [facility] Diagnoses CML (chronic myelocytic leukemia) (HCC) Procedures ECHO ECHO TTHRC R-T 2D W/WOM-MODE COMPL SPEC&COLR D Fabiano Liz, DO [address] [place] [address] [facility] [place] [address] [place] [address] Referral ID Status Reason Start Date Expiration Date V isits Requested Visits Authorized [id number] Closed Auto-Generate d Referral 04/26/2023 03/24/2024 1 [...] Date Comments Refill Request 05/13/2024 Reason Comments Milk Tanker Driver - Other Oral Anti-Cance r Agents Education (asciminib) Reason Comments Milk Tanker Driver - Other Oral Anti-Cance r Agents Follow-up [...]
[2024-10-29 10:12] LABS: Free T3 3.0 pg/mL (2.18-3.98)
== END | disposition home or self-care (01) ==
LOC: LAB 08:15
PROVIDERS: PCP Family Medicine; Referring Provider Family Medicine; Visit Provider Family Medicine
DX: E03.9 Hypothyroidism, unspecified (principal); R73.01 Impaired fasting glucose
CPT/HCPCS: 36415; 83036; 84439; 84443; 84481

== ENCOUNTER 2024-11-28 12:14 | Emergency (ER) | payer OTHER, SELFPAY ==
[2024-11-28] VITALS (9 sets, daily range): BP systolic 133–208; BP diastolic 68–118; PULSE 60–92; RESP 14–18; TEMP 35.9–36.3; O2SAT 94–99; BMI 38.9
--- NOTE | 2024-11-28 12:34 | CT_ITS ---
PROCEDURE: CTA CHEST W/WO CONTRAST 11/28/2024 REASON FOR EXAM: SOB, HX OF CANCER TECHNIQUE: Procedure Code: [id number] Modality: CT Procedure: CTA CHEST W/WO CONTRAST Multiplanar Sagittal and Coronal images were obtained. CONTRAST: Please see CT data VOLUME: Please see CT data mL One or more dose reduction techniques were used (e.g., Automated exposure control, adjustment of the mA and/or kV according to patient size, use of iterative reconstruction technique). RADIATION DOSE SUMMARY: CTDlvol: Please see CT mGy DLP: 2643.10 mGycm COMPARISON: None FINDINGS: Pulmonary arteries: Diameter of the main pulmonary trunk at 2.9 cm is within normal range. Enhancement within the pulmonary arteries is preserved bilaterally through the proximal subsegmental levels, without evidence for acute appearing intraluminal occlusive pulmonary embolus. Evaluation of some smaller distal branches beyond the proximal subsegmental levels is nondiagnostic due to heterogeneous diminishing peripheral contrast bolus. Heart: Cardiothoracic ratio is mildly enlarged with slight prominence of left-sided chambers. Ventricular ratio is maintained. No cardiac chamber filling defect is seen to suggest cardiac thrombus. No significant pericardial effusion. Evaluation of coronary arteries is limited by motion. No dense appearing coronary calcification seen. Myocardial ischemia can not be assessed by this study. Aorta: The aortic root is not dilated. No thoracic aortic aneurysm or dissection. Maximal thoracic aortic diameter is 3.8 cm at the proximal ascending portion. No hemodynamically significant thoracic aortic stenosis. Three-vessel branch pattern noted off the aortic arch. Visualized proximal great vessels within the superior mediastinum are preserved. Mediastinum: No mediastinal hematoma. Small amount of fluid seen within the pericardial recesses. No mediastinal soft tissue emphysema. Lymph nodes: Prevascular lymph nodes are borderline up to 9.5 mm in short axis. Left hilar lymph nodes are prominent at up to 8 mm in short axis. Mildly enlarged right hilar lymph node at 12.6 mm in short axis of indeterminate significance. Given the patient's history of cancer, if indicated consider nonemergent whole- body PET for staging. Esophagus: No periesophageal inflammation. No hiatal hernia. Thyroid: The visualized thyroid gland is unremarkable. Lungs: The lungs are symmetrically expanded. Mild bibasal and dependent subpleural reticular and ground-glass opacities noted consistent with mild atelectasis. There is no consolidation or air bronchograms. Mild pulmonary edema can not be excluded. Clinical correlation with symptoms. Consider radiographic follow-up as clinically appropriate. No bronchiectasis or peribronchial thickening. No suspicious pulmonary parenchymal mass. Pleura: No pleural effusion. There is no pneumothorax. Upper abdomen: No free air or free fluid within the visualized upper most abdomen. There is hepatic steatosis. Body wall: No body wall hematoma or soft tissue emphysema. Osseous: Mild degenerative changes of the spine and bony thorax. No acute osseous injury is seen. CT/CTA Chest W/WO Contrast IMPRESSION: No evidence for acute pulmonary embolus through the proximal subsegmental level s as discussed above. - Mild cardiac enlargement. - No thoracic aortic aneurysm or dissection. - Prominent mediastinal lymph nodes and mildly enlarged right hilar lymph node of indeterminate cause. Nonemergent recommendations discussed above. - Other findings discussed above in detail. Reading Location: [id number]
--- NOTE | 2024-11-28 12:34 | EKG12_ITS ---
Test Reason : HTN Blood Pressure : */* mmHG Vent. Rate : 67 BPM Atrial Rate : 67 BPM P-R Int : 176 ms QRS Dur : 106 ms QT Int : 460 ms P-R-T Axes : 19 60 25 degrees QTcB Int : 486 ms Normal sinus rhythm QTcB >= 480 msec Abnormal ECG Confirmed by Escobar Grissom ([id number]), restaurant expeditor VANESA RUELAS ([id number]) on 12/01/2024 5:46:43 AM Referred By: Confirmed By: Escobar Grissom
--- NOTE | 2024-11-28 12:34 | CT_ITS ---
PROCEDURE: BRAIN/HEAD WITHOUT CONTRAST 11/28/2024 REASON FOR EXAM: HEADACHE TECHNIQUE: Procedure Code: CTBR Modality: CT Procedure: BRAIN/HEAD WITHOUT CONTRAST Coronal and Sagittal reconstruction series were provided. One or more dose reduction techniques were used (e.g., Automated exposure control, adjustment of the mA and/or kV according to patient size, use of iterative reconstruction technique. RADIATION DOSE SUMMARY: CTDlvol: 44.99 mGy DLP: 2643.10 mGycm COMPARISON: None FINDINGS: Brain: There is no acute intracranial hemorrhage. No region of vasogenic edema, mass effect, or midline shift. CSF Spaces: The ventricles are midline, without hydrocephalus. There is no significant extra-axial fluid collection. Bones: There is no skull fracture. Hyperostosis frontalis. CT/Brain/Head without Contrast IMPRESSION: There is no acute intracranial process Reading [id number]
--- NOTE | 2024-11-28 12:39 | CT_ITS ---
PROCEDURE: CTA HEAD AND NECK W/ CONTRAST 11/28/2024 REASON FOR EXAM: HEADACHE, DIZZINESS TECHNIQUE: Procedure Code: [id number].HDNCK Modality: CT Procedure: CTA HEAD AND NECK W/ CONTRAST Multiplanar Sagittal and Coronal images were obtained. CONTRAST: Currently not available. Refer to technologist paperwork One or more dose reduction techniques were used (e.g., Automated exposure control, adjustment of the mA and/or kV according to patient size, use of iterative reconstruction technique). RADIATION DOSE SUMMARY: CTDlvol: 44.99 mGy DLP: 2643.10 mGycm COMPARISON: None FINDINGS: Aortic Arch: Normal three-vessel arch Brachiocephalic and Subclavians: Mildly tortuous right subclavian artery. Otherwise normal. RIGHT Carotid: Right CCA: Unremarkable Right ICA: Unremarkable Maximum stenosis (NASCET): No significant stenosis % Right ECA: Unremarkable LEFT Carotid: Left CCA: Unremarkable Left ICA: Unremarkable Maximum stenosis (NASCET): No significant stenosis % Left ECA: Unremarkable Vertebrals: Codominant. Arise from the subclavians. Both vertebrals form the basilar. RIGHT Vertebral: Unremarkable LEFT Vertebral: Unremarkable Anatomy: [place] anatomy is normal. Aneurysm or avm: No intracranial aneurysms or large vascular malformations are identified. Anterior cerebral arteries: Unremarkable: Middle cerebral arteries: Unremarkable. Basilar artery: Unremarkable. Posterior cerebral arteries: Unremarkable. Other major branches of the posterior circulation: Unremarkable. Major venous structures: Unremarkable. Low-grade Other findings: Neck: Chronic appearing irregular mucoperiosteal thickening at the alveolar recess right maxillary sinus, with mixed sclerotic and erosive changes. No extraosseous enhancing soft tissue component. No cervical lymphadenopathy. Adjacent dental hardware. CT/CTA Head AND Neck W/ Contrast IMPRESSION: 1. No significant carotid stenosis according to NASCET criteria. 2. Unremarkable CTA head and neck. 3. Chronic appearing sclerotic and erosive changes at the alveolar recess right maxillary sinus. This may reflect longstanding changes related to dental hardware. However, chronic/smoldering osteomyelitis would be difficult to completely exclude. Reading Location: [id number]
--- NOTE | 2024-11-28 12:40 | EX.ED.DYSGE1 ---
HPI History of Present Illness Chief Complaint: Hypertension Narrative Narrative: Patient is a 49-year-old female with past medical history of LANIE, cancer, CML, chronic back pain, Dory's thyroiditis, anemia, GERD who presents to the emergency department the chief complaint of headache, blurred vision, high blood pressure. She also notes that she is having shortness of breath with exertion. 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 States that the longer distance she walks more short of breath she is. Patient notes that she had injections in her back for instability and pain recently and despite this her blood pressure has been elevated. Patient states that her symptoms started yesterday while at work. Patient denies any blood thinner medications. 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 GERD (gastroesophageal reflux disease) Anemia Home Medications ?Medication ?Instructions ?Recorded ?Last Taken ?Type levothyroxine 125 mcg capsule 125 mcg PO DAILY #90 caps 04/13/19 Unknown Rx (Tirosint) allopurinol 300 mg tablet 300 mg PO DAILY 02/19/23 Unknown History furosemide 20 mg tablet 20 mg PO Q OTHER DAY PRN edema 02/19/23 Unknown History ondansetron HCl 8 mg tablet 8 mg PO Q8H PRN nausea and vomiting 09/16/23 Unknown History potassium chloride 10 mEq 20 meq PO BID 02/24/24 Unknown History tablet,extended release (Klor-Con) amlodipine 5 mg tablet 5 mg PO DAILY #30 tabs 11/28/24 Unknown Rx Allergy/AdvReac Type Severity Reaction Status Date / Time Iodinated Contrast Media Allergy Hives Verified 11/28/24 14:02 nalbuphine HCl (From Nubain) AdvReac Vomiting Verified 11/28/24 12:16 Family History Father CAD (coronary artery disease) Diabetes Other Hypertension Myocardial infarction Thyroid disorder Surgical History History of bone marrow biopsy H/O tubal ligation (~2005) delivery delivered H/O: hysterectomy History of cholecystectomy Social History household members: spouse current occupational status: employed Smoking Status: Never smoker alcohol intake: current alcohol intake frequency: holidays/special occasions only details: social substance use type: does not use caffeine: Yes what type of physical activity do you participate in: walking and weight training seatbelt use: always do you feel safe at home: Yes additional 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: - [facility]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 ROS ED ROS Narrative Constitutional: Complains of headache, denies fevers, chills Eyes: Complains of blurry vision denies double vision Cardiovascular: Denies chest pain or palpitations Respiratory: Complains of shortness of breath Abdomen: Denies abdominal pain nausea vomit diarrhea : Denies urinary symptoms Neurological: Denies any numbness, weakness, tingling Musculoskeletal: Complains of chronic back pain this is not new Skin: Denies any rashes or lesions EXAM Physical Exam Narrative Exam Narrative: General: Patient was lying in bed rest comfortably did not appear to be acute distress Head: Atraumatic, normocephalic Eyes: PERRL bilaterally, EOMI bilaterally, no conjunctival injection noted Neck: Soft, supple, trachea midline Cardiovascular: Regular rate and rhythm Respiratory: Clear to auscultation bilaterally Extremities: +5/5 strength noted in the bilateral upper and lower extremities, radial pulses +2/4 in the bilateral extremities, no pedal edema on exam Neurological: Patient follow commands knew that she was at [facility] year is 2024. NIH of 0 GCS 15 patient completed finger-nose testing bilaterally finding difficulty sensation grossly intact Skin: Warm, dry, intact no rashes or lesions noted Const Vital Signs: 11/28/24 12:14 11/28/24 12:34 11/28/24 12:35 Temperature 97.3 F L Temperature Source Temporal Pulse Rate 78 Respiratory Rate 16 Respiratory Effort Short of Breath Respiratory Pattern Normal Blood Pressure 208/108 H Blood Pressure Mean 141 Pulse Ox 99 97 Oxygen Delivery Method Room Air Room Air 11/28/24 12:38 11/28/24 13:55 11/28/24 14:19 Temperature Temperature Source Pulse Rate 70 67 Respiratory Rate 15 18 Respiratory Effort Respiratory Pattern Blood Pressure 192/118 H 133/68 H 172/90 H Blood Pressure Mean 142 89 117 Pulse Ox 98 98 Oxygen Delivery Method Room Air Room Air 11/28/24 15:00 Temperature Temperature Source Pulse Rate 61 Respiratory Rate 16 Respiratory Effort Respiratory Pattern Blood Pressure 159/91 H Blood Pressure Mean 113 Pulse Ox 99 Oxygen Delivery Method Room Air MDM MDM MDM Narrative Medical decision making narrative: Patient is a 49-year-old female who presents to the emergency department chief complaint of hypertension, headache, blurry vision, shortness of breath. On the differential diagnose includes but not limited to ACS, pneumonia, pneumothorax, intracranial hemorrhage, intracerebral aneurysm, hypertensive emergency. Once workup is obtained reviewed she will be reevaluated. Patient does have an allergy to contrast and she states that she has to be given Solu-Medrol, Benadryl and Pepcid which were ordered. Patient be given IV fluids. Patient be given Reglan. Patient's CBC reviewed which showed no evidence leukocytosis white blood count 10.4, he was 13.4, plate count of 253. Patient's INR normal at 1, PT 12.9. Patient was 139, potassium 3.7, creatinine 0.55. Patient's calcium level 9.1, proBNP was noted be 186, troponin was 7 delta troponin pending. Patient EKG reviewed showed sinus rhythm rate of 67 bpm with a NV interval 176 and a QTc of 486.. Patient CT head brain without contrast reviewed which showed no acute cranial processes. Patient CTA head and neck reviewed and showed no significant carotid stenosis according to NASCET criteria. Unremarkable CT of the head and neck. Chronic appearing sclerotic and erosive changes of the alveolar recess right maxillary sinus may be reflective of longstanding changes related to dental hardware. However chronic/smoldering osteomyelitis will be difficult to completely exclude have low suspicion for osteomyelitis at this point time. Patient CTA of her chest reviewed which showed no evidence of pulmonary embolism however there was mild cardiac enlargement with prominent mediastinal lymph nodes and mildly enlarged right hilar lymph node she was given a hard copy of this for her own records and she was advised to take this to her oncologist further review and obtain a outpatient PET scan. After the CTA patient did develop hives on her face however these quickly resolved without any further intervention and she had no breathing difficulties no nausea or vomiting no shortness of breath associated with this. This was not despite of premedication. Patient stood up here in the emergency department after blood pressure normalized and immediately went to the 1 7180 range of systolic therefore she will be given 5 mg amlodipine. Patient will be started on 5 mg amlodipine daily. Her 2-hour troponin is pending therefore this to be signed out however pending this she will be discharged home in stable condition with instructions to return with worsening symptoms or concerns. All question concerns were answered at bedside. Lab Data Labs: Laboratory Results - last 24 hr 11/28/24 12:30 WBC 10.4 RBC 4.92 Hgb 13.4 Hct 39.2 MCV 79.7 L MCH 27.2 MCHC 34.2 RDW Std Deviation 38.1 RDW Coeff of Sheela 13.3 Plt Count 253 MPV 10.0 Immature Gran % (Auto) 0.800 Neut % (Auto) 69.9 Lymph % (Auto) 21.1 [place] % (Auto) 5.6 Eos % (Auto) 1.8 Baso % (Auto) 0.8 Absolute Neuts (auto) 7.3 Absolute Lymphs (auto) 2.19 Nucleated RBC % 0 PT 12.9 INR 1.0 APTT 24.9 Sodium 139 Potassium 3.7 Chloride 103 Carbon Dioxide 22.4 Anion Gap 13 BUN 13 Creatinine 0.55 L Est GFR (MDRD) Non-Af 114 BUN/Creatinine Ratio 22.6 H Glucose 121 H Calcium 9.1 Troponin T High Sens 7 NT pro BNP II 186 Radiography Diagnostic Testing: Clinical Impression(s) from Imaging Studies Brain CT 11/28/24 12:34 IMPRESSION: There is no acute intracranial process Reading [id number] Chest CTA 11/28/24 12:34 IMPRESSION: No evidence for acute pulmonary embolus through the proximal subsegmental levels as discussed above. - Mild cardiac enlargement. - No thoracic aortic aneurysm or dissection. - Prominent mediastinal lymph nodes and mildly enlarged right hilar lymph node of indeterminate cause. Nonemergent recommendations discussed above. - Other findings discussed above in detail. Reading Location: [id number] Head/Neck CTA 11/28/24 12:39 IMPRESSION: 1. No significant carotid stenosis according to NASCET criteria. 2. Unremarkable CTA head and neck. 3. Chronic appearing sclerotic and erosive changes at the alveolar recess right maxillary sinus. This may reflect longstanding changes related to dental hardware. However, chronic/smoldering osteomyelitis would be difficult to completely exclude. Reading [facility] Dis[facility] Triage Chief Complaint: Hypertension ED Provider: Terry Pond Dx/Rx/DC Orders Clinical Impression: Headache, CML (chronic myelocytic leukemia), Hypertension, Back pain, History of gastroesophageal reflux (GERD) Prescriptions: New amlodipine 5 mg tablet 5 mg PO DAILY Qty: 30 0RF No Action allopurinol 300 mg tablet 300 mg PO DAILY furosemide 20 mg tablet 20 mg PO Q OTHER DAY PRN (Reason: edema) potassium chloride [Klor-Con 10] 10 mEq tablet extended release 20 meq PO BID ondansetron HCl 8 mg tablet 8 mg PO Q8H PRN (Reason: nausea and vomiting) Tirosint 125 mcg capsule 125 mcg PO DAILY Qty: 90 3RF Primary Care Provider: Krystina Calle Referrals: Krystina Calle DO [Primary Care Provider] - Activity Restrictions/Additional Instructions: Follow-up with your doctors in outpatient setting showed them your CT report. Take the blood pressure medication as prescribed. Return with worsening symptoms or any concerns. Rotate Tylenol and ibuprofen [id number] for headache control when you do this you can take something every 3 hours max dose of ibuprofen in 24 hours 3200 mg max dose Tylenol in 24 hours 4000 mg. Print Language: Yoruba
[2024-11-28] MEDS: DiphenhydrAMINE 50 MG/ML Syringe 25 MG IV (12:49)
[2024-11-28 12:50] LABS: Hematocrit 39.2 % (37-47); Hemoglobin 13.4 g/dL (12.0-15.0); Immature Granulocytes Count 0.080 X10^3/uL (0.0-0.0); Mean Corp Hgb Conc 34.2 g/dL (32-36); Mean Corpuscular Volume 79.7 fL (81-99); Mean Platelet Vol. 10.0 fl (6.2-12.0); NRBC Flagged by Analyzer 0 % (0-5); Platelet Count 253 K/mm3 (150-450); RBC Distribution Width CV 13.3 % (11.6-14.6); RBC Distribution Width SD 38.1 fl (35.1-43.9); Red Blood Count 4.92 M/mm3 (4.2-5.4); White Blood Count 10.4 K/mm3 (4.4-11.0)
--- OUTSIDE RECORDS SUMMARY | 2024-11-28 12:52 | XMS RPT_ITS | CCD ---
Author Organization [facility] Care Team Providers Care Glassware Verifier Name Role Phone EMPLOYEE, HEALTH Attending Unavailable MISC, DOCTOR Primary Care Unavailable EMPLOYEE, HEALTH Attending Unavailable MISC, DOCTOR Primary Care Unavailable Dr. Krystina Calle Primary Care Provider [phone] Dr. Krystina Calle Referring Provider [phone] Monie Mckeon Attending Provider Dr. Krystina Calle Primary Care Provider Dr. Krystina Calle Referring Provider [phone] Monie Mckeon Attending Provider Dr. Anabelle Peña Attending Provider [phone] Dr. Monie Mckeon Referring Provider Marycarmen ROUTE VENDING MACHINE SERVICER, ROUTE VENDING MACHINE SERVICER-C Mee Attending Provider Krystina Calle DO Primary Care Provider [phone] Dr. Krystina Calle Primary Care Provider Dr. Krystina Calle Referring Provider Dr. Monie Mckeon Attending Provider Monie Mckeon Unavailable Bibi RN, Ligia Unavailable Unavailable Dr. Krystina Calle Primary Care Provider [phone] Dr. Anabelle Peña Attending Provider Bibi RN, Ligia Unavailable Unavailable Dr. Krystina Calle Referring Provider [phone] Marycarmen ROUTE VENDING MACHINE SERVICER, ROUTE VENDING MACHINE SERVICERChinmay Caban Attending Provider Kasandra Rg Unavailable Unavailabl e Luc HART, Krystina Sharp Primary Care Provider Fabiano Liz DO Unavailable Dr. Krystina Calle Primary Care Provider Dr. Krystina Calle Referring Provider Dr. Monie Mckeon Attending Provider [phone] Dr. Reggie Winslow Attending Provider Malys DO, Krystina Sharp Primary Care Provider Monie Mckeon MD Unavailable [phone] Luc HART, Dr. Flaherty Primary Care Provider Luc HART, Dr. Flaherty Referring Provider Dr. Monie Mckeon MD Attending Provider Dr. Fabiano Liz DO Attending Provider Agusto HART, Dr. Mario Referring Provider ESHA READ Attending Provider ESHA READ Referring Provider Dr. Krystina Calle DO Primary Care Provider [phone] Mireya Ashton Attending Provider ESHA READ Attending Provider ESHA READ Referring Provider Dr. Krystina Calle DO Referring Provider Dr. Dallas Rojas MD Attending Provider Luc HART, Dr. Flaherty Primary Care Provider Dr. Krystina Calle DO Attending Provider Assessment, Health Risk Attending Provider Unava ilable Assessment, Health Risk Referring Provider Unava ilable Bob RIVERA, Dr. Haynes Referring Provider Krystina Calle Primary Care Unavailable Dallas Rojas Referring Unavailable Dallas Rojas Attending Unavailable Fabiano Liz Referring Unavailable Malys, Krystina Primary Care Unavailable Masci, Fabiano Attending Unavailable Masci, Fabiano Referring Unavailable Masci, Fabiano Attending Unavailable Malys, Krystina Primary Care Unavailable Malys, Krystina Primary Care Unavailable Malys, Krystina Referring Unavailable Monie Mckeon Attending Unavailable Malys, Krystina Primary Care Unavailable Malys, Krystina Referring Unavailable Dallas Rojas Attending Unavailable Masci, Fabiano Referring Unavailable Masci, Fabiano Attending Unavailable Malys, Krystina Primary Care Unavailable Malys, Krystina Referring Unavailable Malys, Krystina Attending Unavailable Malys, Krystina Primary Care Unavailable Malys, Krystina Primary Care Unavailable Masci, Fabiano Referring Unavailable Masci, Fabiano Attending Unavailable Malys, Krystina Primary Care Unavailable GIRDHAR, VIKIL Referring Unavailable GIRDHAR, VIKIL Attending Unavailable Malys, Krystina Primary Care Unavailable Mireya Cortez Attending Unavailable Malys, Krystina Primary Care Unavailable GIRDHAR, VIKIL Referring Unavailable GIRDHAR, VIKIL Attending Unavailable Malys, Krystina Primary Care Unavailable Malys, Krystina Referring Unavailable Malys, Krystina Attending Unavailable Malys, Krystina Primary Care Unavailable Masci, Fabiano Referring Unavailable Masci, Fabiano Attending Unavailable Masci, Fabiano Referring Unavailable Malys, Krystina Primary Care Unavailable Masci, Fabiano Attending Unavailable Malys, Krystina Primary Care Unavailable Assessment, Health Risk Attending Unavaila ble Assessment, Health Risk Referring Unavaila ble MASCI, FABIANO A Attending Unavailable MASCI, FABIANO [...] Care Unavailable MASCI, FABIANO A Referring Unavailable KRYSTINA CALLE Primary Care Unavailable Allergies Allergy Classification Reported Allergen(s) Allergy Type Date of Onset Reaction(s) Facility (20 sources) Nalbuphine; Translations: [nalbuphine HCl] Drug Allergy 6 Vomiting [facility] (20 sources) Iodinated Contrast Media; Translations: [Iodinated Contrast Media] Allergy to substance 2 Hives, Swelling [facility] Medications Current Medications Medication Drug Class(es) Dates [...] Comment on above: Take 1 tablet by [facility] once daily. asciminib (SCEMBLIX) 40 mg tablet (20 sources) Start: 09-29-2024 take 2 tablets by mouth once daily asciminib (SCEMBLIX) 40 mg tablet Take 2 tablets (80 mg) by mouth once daily on an empty stomach, 1 hour before or 2 hours after eating 60 tablet 5 10/28/2024 11:12 AM EDT 09/29/2024 Active Start: 09-29-2024 take 2 tablets by [facility] once daily asciminib (SCEMBLIX) 40 mg tablet Take 2 tablets (80 mg) by mouth once daily on an empty stomach, 1 hour before or 2 hours after eating 60 tablet 5 10/01/2024 11:14 AM EDT 09/29/2024 Active Start: 09-29-2024 take 2 tablets by [facility] once daily asciminib (SCEMBLIX) 40 mg tablet Take 2 tablets (80 mg) by mouth once daily on an empty stomach, 1 hour before or 2 hours after eating 60 tablet 5 09/29/2024 Active Start: 06-08-2024 take 2 tablets by [facility] once [...] mcg capsule Active 125 ug PO DAILY 90 April 13, 2019 1:00am Start: 10-01-2013 End: [...] pantoprazole 40 mg delayed release oral tablet (8 sources) Proton Pump Inhibitor Start: 07-02-19 25 take 1 tablet by mouth once daily [...] release oral tablet (20 sources) Start: 05-13-19 25 take 2 tablets by mouth once daily [...] 2019 12:00am Start: 01-13-2019 Vit E-Vit K-Sa ffjanaeer Oil Active 52 January 12, 2019 11:00pm Completed/Discontinued Medications Medication [...] above: Take 1 tablet by [facility] one time only for 1 dose. Take [...] on above: Take 1,000 mg by [facility] once daily. bosutinib 400 mg oral tablet [...] mg / cholecalciferol 600 unt oral tablet (17 sources) Vitamin D Start: 08-16-2017 End: 02-19-2023 Calcium Carbonate-Vitamin D3 1 EACH tablet Discontinued 2 NMA PO DAILY August 16, 2017 12:00am February 19, 2023 10:30am Start: 08-16-2017 End: 02-19-2023 Calcium Carbonate-Vitamin D3 Discontinued 2 EACH PO DAILY August 16, 2017 12:00am February 19, 2023 10:30am celecoxib 200 mg oral capsule (17 sources) Nonsteroidal Anti-inflammatory Drug Start: 05-08-2019 End: [...] daily. cyclobenzaprine hydrochloride 10 mg oral tablet (17 sources) Muscle Relaxant Start: End: take 1 tablet by mouth three times daily as needed for muscle spasms Cyclobenzaprine 10 MG tablet Discontinued 10 mg PO THREE TIMES A DAY as needed for Muscle Spasm 20 0 January 13, 2019 12:00am December 24, 2019 [...] Comment on above: Take 1 tablet by [facility] one time only for 1 dose. Take 1 tablet 1 hour prior to bone marrow biopsy. Do not start before July 25, 2022. MULTI-VITAMIN ORAL (5 sources) End: MULTI-VITAMIN ORAL Take by mouth. 0 07/25/2022 [...] 2023 10:31am oseltamivir 75 mg oral capsule (17 sources) Neuraminidase Inhibitor Start: 05-08-2019 End: 12-24-2019 take 1 capsule by mouth twice daily Oseltamivir 75 MG capsule Discontinued 75 mg PO TWICE A DAY 9 0 May 08, 2019 1:00am December 24, 2019 11:34am phentermine hydrochloride 37.5 mg oral tablet (20 sources) Sympathomimetic Amine Anorectic Start: 05-21-2022 End: 02-19-2023 Phentermine (Adipex-P) 37.5 mg tablet Discontinued 18.75 mg PO daily 15 2 June 28, 2022 9:49am February 19, 2023 10:31am BMI 36 Start: 03-01-2022 End: 05-21-2022 take 1 tablet by mouth once daily Phentermine (Adipex-P) 37.5 mg tablet Discontinued 37.5 mg PO daily 30 0 April 24, 2022 5:07pm May 21, 2022 [...] release 24hr Discontinued 50 mg PO DAILY 30 June 28, 2022 12:00am July 04, 2022 7:58am Start: 06-28-2022 End: 07-04-2022 take 1 capsule by mouth once daily Topiramate 50 mg capsule,extended release 24hr Discontinued 50 mg PO DAILY June 28, 2022 12:00am July 04, 2022 7:58am Start: 06-28-2022 End: 07-04-2022 take 50 mg by mouth once daily Topiramate Discontinued 50 MG PO DAILY June 28, 2022 12:00am July 04, 2022 7:58am Start: 05-21-2022 End: 02-19-2023 take 1-2 tablets by mouth once daily Topiramate (Topamax) 25 mg tablet Discontinued 25 mg PO TWICE A DAY 60 July 04, 2022 7:57am February 19, 2023 10:31am 1-2 x daily. Vit E-Vit K-Safflower Oil 52 ML oil (6 sources) Start: 01-13-2019 End: 02-19-2023 Vit E-Vit K-Safflower Oil 52 ML oil Discontinued January 13, 2019 12:00am February 19, 2023 10:31am vitamin a 2.4 mg oral capsule (17 sources) Vitamin A Start: 12-24-2019 End: 02-19-2023 [...] Translations: [Other iron deficiency anemias] 10-30-2023 Episodic Deficiency and other anemia (1 source) Microcytic anemia; Translations: [Iron deficiency anemia, unspecified] 11-04-2024 Episodic Deficiency and other anemia (2 sources) Iron deficiency anemia, unspecified; Translations: [Iron deficiency anemia, unspecified] Onset: 01-15-2024 Episodic Diseases of white blood cells (5 sources) Leukocytosis; Translations: [Other elevated white blood cell count] Chronic Disorders of lipid metabolism (12 sources) Hypercholesterolemia; Translations: [Pure hypercholesterolemia, unspecified] 06-18-2022 Chronic Comment on above: continue weight loss , nutrition consult placed, referral to PCP to see if medication is desired Esophageal disorders (20 sources) Gastroesophageal reflux disease; Translations: [Gastro-esophageal reflux disease without esophagitis] Onset: 10-12-2024 Chronic Comment on above: weight loss planned Influenza (17 sources) Influenza due to Influenza A virus; [...] if desired. AEH ordered Nonmalignant breast conditions (9 sources) Breast lump; Translations: [Unspecified lump in the right breast, unspecified quadrant] 12-31-2022 Episodic Other acquired deformities (2 sources) Lumbar spondylolisthesis; Translations: [Spondylolisthesis, lumbar region] 08-20-2024 Episodic Other acquired deformities (1 source) Spondylolisthesis, lumbar region; Translations: [Spondylolisthesis, lumbar region] Onset: 11-24-2024 Episodic Other aftercare (1 source) Drug therapy [...] unspecified] 04-26-2023 Episodic Other non-traumatic joint disorders (17 sources) Pain in left knee; Translations: [Left knee pain] 03-27-2018 Episodic Other nutritional; endocrine; and metabolic disorders (14 sources) Obesity; Translations: [Other obesity] 05-21-2022 Chronic Comment on above: IF 16:8. discussed w eight management options, patient to decide on nutritional plan. - 245 4m- 226 discussed options- plan making generic qsymia with 1/2 dose phenteramine and switch to topamax extended release 50 mg. discussed calorie restriction [phone] mahi when in her eating window. use [employer] for tracking. nutrition consult Other nutritional; endocrine; and metabolic disorders (14 sources) Body mass index 30+ - obesity; Translations: [Body mass index (BMI) 39.0-39.9, adult] 05-21-2022 Chronic Comment on above: discussed calorie re striction during fasting window- [phone] mahi depending on activity Other nutritional; endocrine; [...] Spondylosis; intervertebral disc disorders; other back problems (17 sources) Acute back pain with sciatica; Translations: [Lumbago with sciatica, right side] Onset: 06-23-2024 06-19-2024 Episodic Thyroid disorders (3 sources) Acquired hypothyroidism; Translations: [Hypothyroidism, unspecified] Onset: 11-06-2024 10-22-2022 Chronic Unclassified (1 source) Spondylolisthesis of lumbar region Unclassified (2 sources) M43.16 - Spondylolisthesis, lumbar region Unclassified (1 source) Low back pain, unspecified; Translations: [Low back pain, unspecified] Onset: 08-20-2024 Past or Other Problems Problem Classification Problem Date Documented Da te Episodic/Chronic Biliary tract disease (20 sources) Disorder of gallbladder; Translations: [Other specified diseases of gallbladder] Onset: 09-07-2009 09-07-2009 Episodic Deficiency and other anemia (1 source) Other iron deficiency anemias; Translations: [Iron deficiency anemia secondary to inadequate dietary iron intake] Onset: 01-30-2024 Episodic Other and unspecified benign neoplasm (20 sources) Melanocytic nevus of skin ; Translations: [Melanocytic nevi of scalp and neck] Onset: 05-23-2015 05-23-2015 Episodic Other and unspecified benign neoplasm (20 sources) Dermal cellular nevus ; Translations: [Other benign neoplasm of skin, unspecified] Onset: 06-14-2015 06-14-2015 Episodic Other screening for suspected conditions (not mental disorders or infectious disease) (7 sources) Patient encounter status; Translations: [Encounter for screening for malignant neoplasm of colon] Onset: 01-30-2024 09-16-2023 Episodic Other skin disorders (20 sources) Sebaceous cyst of skin; Translations: [Sebaceous cyst] Onset: 05-23-2015 05-23-2015 Episodic Results Test Name Value Interpretation Reference Range Facility Inital Evaluation (1) - PTon 11-11-2024 Inital Evaluation (1) - PT [facility] [address] [place] [address] [address] [place] [address] / REHABILITATION SERVICES INITIAL EVALUATION MR#: [id number] Acct: [id number] Name: LIBIA OLIVAS FRIDA Rep #: [id number] : 1975 49 From: Alisa Grimes PT, Cert. MDT Referring Dr.: Dr. Dallas Rojas MD Status: REG RCR Insurance: [employer] [facility] SELF PAY INSURANCE Patient's Visit Information Visit Information Visit Information: LIBIA OLIVAS is a 49 year old F referred to Physical Therapy by Dr. Dallas Rojas MD with a diagnosis of Lumbar Spondylolisthesis. Date of Evaluation: 08/28/24 Physical Therapist: Alisa Grimes, PT, Cert MDT Visit Plan Frequency: 2x /Week Duration: 2-4 Months Plan: CONT PT X 10-12 VISITS WITH AQUATIC THERAPY PROGRESSING WITH NEUTRAL SPINE ONLY. *PATIENT HAS LUMBAR INSTABILITY ON FLEX/EXT X-RAYS* AQUATIC THERAPY FOR PAIN RELIEF, POSTURE CORRECTION/STRENGTHENING, INSTRUCTION IN APPROPRIATE BODY MECHANICS AND ACTIVITY MODIFICATIONS. DLS WITH A NEUTRAL SPINE ONLY. IKE LE ROM, STRETCHING AND STRENGTHENING. HEP INSTRUCTION. 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 Present symptoms: IKE LBP R>L, R THIGH, R LEG, R FOOT PAIN. PATIENT DENIES R LE NUMBNESS AND TINGLING. Present since: 21 YEARS AGO Pain Scale: WORST 5/10, LEAST 1/10 Currently: 1/10 Is it getting better, worse or staying the same: STAYING THE SAME THE LAST 2 MONTHS Commenced as a result of: BLOOD PATCH Symptoms at onset: SHARP BURNING PAIN DOWN RIGHT LEG Worse: PROLONGED SITTING, PROLONGED STANDING, MOPPING, PULLING AND PUSHING PATIENTS, RUNNING BACK AND FORTH TO THE FLOOR FROM THE ED DURING WORK. R SDLY. Better: 2 TYLONOL AND 4 IBUPROFEN USUALLY TAKES CARE OF IT, HEATING PAD APPLIED TO R LOW BACK, CHANGE OF POSITION. Disturbed sleep: YES Previous history/Previous treatment: CHIROPRACTIC EVERY 2 TO 6 WKS OVER THE LAST 21 YEARS. SOMETIMES 3 TIMES A WK NEEDED. SOME BENEFIT FOR A FEW DAYS AFTER VISITS. PRESCRIPTION MUSCLE RELAXERS 3-4 YEARS AGO. NO BACK SURGERY, NO MISTI'S, NO MASSAGE THERAPY, NO PHYSICAL THERAPY. Treatment this episode: STEROID DOSE MIGUEL A WITH BENEFIT JUNE 2024. CONSULT WITH DR. CRANDALL PENDING 09/02/24. Coughing/sneezing/strainin g: POSITIVE FOR INCREASED PAIN AT TIMES. Gait: INTERMITTENT LIMP. Bowel or Bladder Dysfunction: NO Accidents: NO Unexplained weight loss: NO Imaging: YES - SEE [employer] EMR AND DR. ROJAS'S RECENT ORTHO NOTE FOR X-RAY AND MRI RESULTS SHOWING L34 AND L5S1 HNP, L45 L5S1 STENOSIS AND SEVERE DDD WITH NERVE ROOT INVOLVEMENT. INSTABILITY SEEN ON FLEX/EXT X-RAY VIEWS ALONG WITH OTHER IMAGING FINDINGS PER REPORT NOTES. OTHER: PATIENT STATES DR. ROJAS SAID SURGERY IS A LAST RESORT DUE TO THE LEUKEMIA AND BECAUSE IT WOULD BE EXTENSIVE AND A HARD RECOVERY. PMH/Recent major surgery: Leukemia - on daily chemo pill, Hypothyroidism Pain LBP: Pain Intensity (Out of 10): 1 Pain Intensity Range: 1 and 5 Comment: 3-4/10 annoying LE radiculopathy: Pain Intensity (Out of 10): 1 Comment: burning hamstrings R>L Objective Objective: Sitting/Standing Posture: INCREASED LORDOSIS. ANTERIOR PELVIC TILT. NO RELEVANT LATERAL LUMBAR SHIFT. Active Correction of posture: WORSE Other Observations: INDEP SIT TO STAND WITHOUT UE ASSIST Sensory deficit: DECREASED LIGHT TOUCH SENSATION R ANT AND LAT THIGH COMPARED TO L. ROM deficit: IKE HS, HIP FLEX AND CALF TIGHTNESS Motor deficit: R HIP 4-/5, KNEE 4/5, ANKLE 5/5. L HIP 4/5, KNEE 5/5, ANKLE 5/5 Reflexes: R QUAD 1+, ACHILLES 2+. L QUAD 2+, ACHILLES 2+ Dural Signs: + R LE Lumbar mvmt loss: flex - MOD - DECREASES - NB ext - MOD - INCREASES - NW R SG - MOD - INCREASES, P R THIGH - W L SG - MOD - DECREASES BACK AND R THIGH - NB Core strength: POOR Palpation: TENDERNESS AND ATROPHY OF R LOWER THORACIC, LUMBAR PARASPINAS COMPARED TO L. OTHER: PATIENT IS ABLE TO WALK ON TOES AND HEELS WITHOUT UE ASSIST. TREATMENT: NEURO RE-ED - INTRO TO POSTURE CORRECTION AND ACTIVITY MODIFICATIONS FOR SITTING, STANDING, WALKING AND LYING. Balance/Special Test Scores Oswestry Low Back Score: 8 Goals Goal 1:: DECREASE C/O LOW BACK AND R LE SX'S BY AT LEAST 50% TO EASE ADL'S - GOAL MET. NEW GOAL - DECREASE C/O LOW BACK AND R LE SX'S BY AT LEAST 75% TO EASE ADL'S Goal Time Frame: 6-8 Weeks Goal 2:: IMPROVE PERSONAL CARE, LIFTING, SITTING, STANDING, SLEEP, SOCIAL LIFE, TRAVEL, WORK AND HOMEMAKING FUNCTION WITH AT LEAST 5 POINT IMPROVEMENT IN LUMBAR OSWESTRY QUESTIONNAIRE SCORE IMPROVEMENT. Goal Time Frame: 6-8 Weeks Goal 3:: INSTRUCT IN PROPHYLAXIS. Goal Time Frame: 6-8 Weeks Rehabilitation Potential Physical Therapy Diagnosis: CORE AND LE STIFFNESS AND WEAKNESS. Rehabilitation Potential: Fair Anticipated Interventions Patient/Client Instruction: Educate patien (more content not included)... Normal [facility] Re-Evaluation - PT (1)on Re-Evaluation - PT (1) [facility] [address] [place] [address] / REEVALUATION / MEDICARE RECERTIFICATION PHYSICAL THERAPY MR#: [id number] Acct: [id number] Name: LIBIA OLIVAS Rep #: [id number] : 1975 49 From: Alisa Grimes PT, Cert. MDT Referring Dr.: Dr. Dallas Rojas MD Status:REG RCR Insurance: [employer]/[facility] SELF PAY INSURANCE Re-Evaluation Intro: Dr. Dallas Rojas MD, It has been my pleasure to treat LIBIA OLIVAS over the last 9 visits for Lumbar Spondylolisthesis. Please see the progress note below for an update on the physical therapy plan of care! Subjective Subjective: PATIENT REPORTS PHYSICAL THERAPY IS HELPING SO MUCH. STILL REPORTING PAIN RANGING 1- 5/10 BUT SHE REPORTS APPROX 50% IMPROVEMENT OVER-ALL SINCE STARTING PT STATING NOW I HAVE SO MANY WAYS TO GET THE PAIN SHANA TO A 1/10. HAVING LESS PAIN MORE OFTEN. I CAN GET THROUGH A WORK DAY AND NOT BE SO PAINFUL AT THE END OF THE DAY THAT I DON'T WANT TO DO ANYTHING WHEN I GET HOME. PATIENT REPORTS SHE IS NO LONGER TAKING OTC TYLONOL AND IBUPROFEN DURING THE DAY BUT STILL TAKING IT BEFORE BED. SHE STATES SHE SAW DR. CRANDALL 11/04/24 AND HAS MISTI PLANNED 11/25/24. DURING EXAM HE FOUND A VERY TENDER SPOT IN HER R LOW BACK THAT ABOUT DROPPED ME TO MY KNEES. IT HURT UNTIL THE NEXT DAY. Objective Objective/Function: PATIENT WAS SEEN TODAY FOR RE-ASSESSMENT OF PROGRESS TOWARD THE SET PT GOALS AND THE NEED FOR FURTHER PHYSICAL THERAPY VS READINESS FOR DISCHARGE. THIS PATIENT IS MAKING SLOW BUT GOOD PROGRESS WITH PT AND IS A GOOD CANDIDATE TO CONTINUE PT BASED ON PROGRESS MADE, UP COMING MISTI AND ROOM FOR FURTHER IMPROVEMENT. PATIENT IS AGREEABLE. UPON EXAM TODAY: Sensory deficit: PATIENT HAS DECREASED LIGHT TOUCH SENSATION R ANT AND LAT THIGH COMPARED TO L BUT THE DIFFERENCE IS LESS NOTICEABLE FOR HER COMPARED TO INITIAL EVAL. ROM deficit: IKE HS, HIP FLEX AND CALF TIGHTNESS Motor deficit: R HIP 4-/5, KNEE 4/5, ANKLE 5/5. L HIP 4/5, KNEE 5/5, ANKLE 5/5 Reflexes: R QUAD 1+, ACHILLES 2+. L QUAD 2+, ACHILLES 2+ Dural Signs: NEGATIVE IKE LE'S. Lumbar mvmt loss: flex - MIN - NE ext - MOD - INCREASES BACK AND THIGH PAIN - NW R SG - MOD - INCREASES R BACK - NW L SG - MOD - NE Core strength: POOR Palpation: MILD TENDERNESS LOCALIZED TO THE RIGHT LOWER LUMBAR PARASPINAL REGION. PATIENT CONTINUES TO HAVE MUSCLE ATROPHY OF R PARASPINALS COMPARED TO L BUT IMPROVED FROM INITIAL EVAL. Plan Plan Plan: CONT PT X 10-12 VISITS WITH AQUATIC THERAPY PROGRESSING WITH NEUTRAL SPINE ONLY. *PATIENT HAS LUMBAR INSTABILITY ON FLEX/EXT X-RAYS* AQUATIC THERAPY FOR PAIN RELIEF, POSTURE CORRECTION/STRENGTHENING, INSTRUCTION IN APPROPRIATE BODY MECHANICS AND ACTIVITY MODIFICATIONS. DLS WITH A NEUTRAL SPINE ONLY. IKE LE ROM, STRETCHING AND STRENGTHENING. HEP INSTRUCTION. Balance/Gait/Functional tests Balance/Special Test Scores Oswestry Low Back Score: 8 Goals Goals Goal 1:: DECREASE C/O LOW BACK AND R LE SX'S BY AT LEAST 50% TO EASE ADL'S - GOAL MET. NEW GOAL - DECREASE C/O LOW BACK AND R LE SX'S BY AT LEAST 75% TO EASE ADL'S Goal Time Frame: 6-8 Weeks Goal 2:: IMPROVE PERSONAL CARE, LIFTING, SITTING, STANDING, SLEEP, SOCIAL LIFE, TRAVEL, WORK AND HOMEMAKING FUNCTION WITH AT LEAST 5 POINT IMPROVEMENT IN LUMBAR OSWESTRY QUESTIONNAIRE SCORE IMPROVEMENT. Goal Time Frame: 6-8 Weeks Goal Progress: Progressing Goal 3:: INSTRUCT IN PROPHYLAXIS. Goal Time Frame: 6-8 Weeks Goal Progress: Progressing Anticipated Interventions Anticipated Interventions Patient/Client Instruction: Educate patient on: Condition, Plan of Care and Risk Factors For the Purpose of:: To improve self management Therapeutic Exercise to Include: Strength training, Body mechanics, Postural training, Flexibilty training, Neuromotor development, In an aquatic setting and Dynamic Lumbar Stabilization For the Purpose of:: To decrease pain, To improve muscle performance and motor function, To increase tolerance to activity/condition/positio n, To improve ability of physical actions for home/community/work/leisur e, To increase flexibility/ROM and To improve self management Re-Evaluation Ending Re-evaluation ending: Please do not hesitate to contact me at [phone] by phone or if you have questions or concerns regarding this new plan of care! Sincerely, Alisa Grimes, PT, Cert MDT 11/11/24 0506 CC: Dr. Dallas Rojas MD; Dr. Krystina Calle DO BIBI Signed For Medicare only, by signing this I certify the plan of care. __ Physicians Signature Date [facility] CNOVSPon 11-04-2024 CNOVSP Visit (SP) Office (H EMAWS) -- LIBIA OLIVAS ([id number]) 1975 F Date Time Provider Department 11/04/24 8:30 AM FABIANO LIZ During your visit today, we recorded the following information about you: Temperature Pulse Blood pressure Weight 98.1 degrees 69/minute 150/88 107.7 kg Fabiano Liz DO 11/04/2024 8:46 AM Signed Diagnosis: 1) Chronic phase CML. [...] since hadn't had in a year) at [facility] and incidental leukocytosis with WBC count 135.68K. Hgb and platelets normal. Recheck at [facility] 07/21/2022 revealed total white count 131.8 thousand. [...] ongoing oncologic management. Interim history: Back pain found to be due to L4-L5 degenerative disease. Completing aquatic therapy. Following CPM and may received epidural injections. Reflux controlled. No subjective side effects. Has noted higher BPs. Not taking at home. Has cuff. PMH, medications and allergies personally reviewed by me today. Any changes documented in appropriate section. ROS: Constitutional: Normal appetite. Neuro: Denies BAÑUELOS, vertigo, dizziness and imbalance. [...] Normal mood. PHYSICAL EXAM: Vitals: Blood pressure 150/88, pulse 69, temperature 36.7 ?C (98.1 ?F), temperature source Temporal, weight 107.7 kg (237 lb 8 oz), SpO2 97%. Well-appearing and in no acute distress. EYES: Sclerae are anicteric bilaterally. LYMPHATIC: There is no palpable cervical, supraclavicular adenopathy. CARDIOVASCULAR: Rhythm is regular. ABDOMEN: The abdomen is nondistended. Cannot appreciate splenomegaly. Extremities: No swelling currently. SKIN: No jaundice. ASSESSMENT/PLAN: (C92.10) CML (chronic myelocytic leukemia) (HCC) (primary encounter diagnosis) (K21.9) Gastroesophageal reflux disease, unspecified whether esophagitis Microcytic anemia. 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 She had not had any bleeding or bruising issues. She had no constitutional symptoms. -Initial diagnostic PCR for BCR/ABL on peripheral blood demonstrated both p210 and p190 fusion transcripts with p210 being far greater. -MR for p210 at 9 months. p190 undetectable in under 2 months. -I reviewed the results of the PCR testing with her. Further DMR. Benefit of drug outweighs ongoing risk. -Tolerating Scemblix very well. Reviewed CBC. Decrease in MCV--discussed checking iron again. Will need parenteral iron. Doesn't tolerate oral iron well at all due to bad nausea. Will need repeat endoscopy if low. -Reflux controlled. Plan: -Continue Scemblix. -Lab work including CBC/CMP and PCR for BCR::ABL for both the P190 and P210 transcript in September. -Continue pantoprazole 40 mg once daily. Portions of this documentation were copied and pasted from my previous office visit note dated 07/01/2024 in order to provide a cohesive continuity of the history. The note has been reviewed and edited and updated as necessary. Fabiano Liz DO Referring Provider: FABIANO LIZ [[id number]] Allergies As of Date: 11/04/2024 Noted Allergy Reaction IV DYE (IODINATED CONTRAST MEDIA) (more content not included)... Normal [facility] Nelli 11-04-2024 [place]ENTONN Telephone ([facility]) -- REMYLIBIA ([id number]) 1975 F Date Time Provider Department 11/04/24 FABIANO LIZ During your visit today, we recorded the following information about you: Fabiano Liz DO 11/04/2024 8:47 AM Signed Forgot to address blood pressure with her. I would encourage her to start taking her blood pressure 3-4 times a week first thing in the morning after getting up and before any caffeine. She should sit at the dining room table or kitchen counter for about 3 to 5 minutes before taking blood pressure. Best to have arm parallel with heart. Record blood pressures for several weeks then review with Dr. Calle. DO Jay Rodriguez Melanie, LPN 11/04/2024 8:58 AM Signed Reviewed instructions with the patient and she verbalized understanding. Alisha Romero LPN Allergies As of Date: 11/04/2024 Noted Allergy Reaction IV DYE (IODINATED CONTRAST MEDIA) 07/25/2022 4 - Hives 7 - Swelling NUBAIN (NALBUPHINE HCL) 05/23/2015 11 - Vomiting Date Reviewed: 11/04/2024 Reviewed by: Fabiano Liz DO - Fully Assessed Reason for Visit: Follow Up [171] Prescriptions as of 11/04/2024 - asciminib (SCEMBLIX) 40 mg tablet Take 2 tablets (80 mg) by mouth once daily on an empty stomach, 1 hour before or 2 hours after eating - pantoprazole DR (PROTONIX) 40 mg tablet Take 1 tablet by mouth once daily. - allopurinol (ZYLOPRIM) 300 mg tablet Take [...] once daily. Problem List As Of Date 11/04/2024 Noted Resolved Other Specified Disorder of Gallbladder [K82.8] 09/07/2009 Sebaceous cyst [L72.3] 05/23/2015 Melanocytic nevi of scalp and neck [D22.4] 05/23/2015 Intradermal nevus [D23.9] 06/14/2015 Encounter Status:Closed by ALISHA ROMERO on 11/04/24 Normal [facility] Ferritin SerPl-mCncon 2024 Ferritin [Mass/Vol] 230.0 ng/mL High 14.7-205.1 [facility] Comment on above: Order Comment: Speci men Type: BLOOD SPECIMEN Ordering Facility: [facility] Address: [address] [place] [address] Performed By: #### 5 7021-8 #### [id number] [address] [place] [address] [place] Iron and Iron binding capaci ty panelon 11-04-2024 Iron [Mass/Vol] 53 ug/dL Normal 41-186 [facility] Comment on above: Order Comment: Kaitlin shafer Type: BLOOD SPECIMEN Ordering Facility: [facility] Address: [address] [place] [address] Performed By: #### 5 7021-8 #### [facility] CLIA [id number] [address] [place] [address] [place] Iron binding capacity [Mass/Vol] 295 ug/dL Normal 232-386 [facility] Comment on above: Order Comment: Speci men Type: BLOOD SPECIMEN Ordering Facility: [facility] Address: [address] [place] [address] Performed By: #### 5 7021-8 #### [facility] CLIA [id number] [address] [place] [address] [place] Iron/TIBC [Molar ratio] 18.0 % Normal 15.0-57.0 [facility] Comment on above: Order Comment: Speci men Type: BLOOD SPECIMEN Ordering Facility: [facility] Address: [address] [place] [address] Performed By: #### 5 7021-8 #### [facility] CLIA [id number] [address] [place] [address] [place] Absolute lymphocyte countOrd ered By: HEALTH ASSESSMENT on 10-29-2024 Lymphocytes Auto (Unsp spec) [#/Vol] 1.76 10*3/uL 0.83-4.51 [facility] Absolute neutrophil countOrd ered By: HEALTH ASSESSMENT on 10-29-2024 Neutrophils (Bld) [#/Vol] 4.4 10*3/uL 2.0-7.7 [facility] Absolute nucleated red blood cell countOrdered By: HEALTH ASSESSMENT on 10-29-2024 Nucleated RBC (Bld) [#/Vol] 0.00 10*3/uL 0-5 [facility] Anion gap in Serum or Plasma Ordered By: HEALTH ASSESSMENT on 10-29-2024 Anion gap [Moles/Vol] 11 mmol/L 5-15 [facility] BUN/creatinine ratioOrdered By: HEALTH ASSESSMENT on 10-29-2024 Urea nitrogen/Creatinine [Mass ratio] 23.2 mg/mg High 10-20 [facility] Bilirubin Test strip Ql (U)O rdered By: HEALTH ASSESSMENT on 10-29-2024 Bilirubin Ql (U) Negative Negative [facility] Bilirubin directOrdered By: HEALTH ASSESSMENT on 10-29-2024 Bilirubin.direct [Mass/Vol] 0.13 mg/dL 0.00-0.30 [facility] Bilirubin, totalOrdered By: HEALTH ASSESSMENT on 10-29-2024 Bilirubin [Mass/Vol] 0.37 mg/dL 0.00-1.30 [facility] Blood band neutrophil count as percentage of total leukocytesOrdered By: HEALTH ASSESSMENT on 10-29-2024 Band form neutrophils/100 WBC (Bld) 63.5 % 47-70 [facility] CBC, Employeeon 10-29-2024 Absolute Lymph 1.76 X10 3/uL Normal 0.83-4.51 [facility] Comment on above: Performed By: #### L 100.0200, L500.2900, L400.0100 ####[facility] [address] [place], [address] Absolute Neut 4.4 X10 3/uL Normal 2.0-7.7 [facility] Comment on above: Performed By: #### L 100.0200, L500.2900, L400.0100 ####[facility] [address] [place], [address] Basophils/100 WBC (Bld) 1.0 % Normal 0-1 [facility] Comment on above: Performed By: #### L 100.0200, L500.2900, L400.0100 ####[facility] [address] [place], [address] Eosinophils/100 WBC (Bld) 2.5 % Normal 0-5 [facility] Comment on above: Performed By: #### L 100.0200, L500.2900, L400.0100 ####[facility] [address] [place], [address] Erythrocyte distribution width (RBC) [Ratio] 12.9 % Normal 11.6-14.6 [facility] Comment on above: Performed By: #### L 100.0200, L500.2900, L400.0100 ####[facility] [address] [place], [address] Hematocrit (Bld) [Volume fraction] 40.0 % Normal 37-47 [facility] Comment on above: Performed By: #### L 100.0200, L500.2900, L400.0100 ####[facility] [address] [place], [address] Hemoglobin (Bld) [Mass/Vol] 13.4 g/dL Normal 12.0-15.0 [facility] Comment on above: Performed By: #### L 100.0200, L500.2900, L400.0100 ####[facility] [address] [place], [address] Lymphocytes/100 WBC (Bld) 25.6 % Normal 19-41 [facility] Comment on above: Performed By: #### L 100.0200, L500.2900, L400.0100 ####[facility] [address] [place], [address] MCH (RBC) [Entitic mass] 27.1 pg Normal 27.0-32.0 [facility] Comment on above: Performed By: #### L 100.0200, L500.2900, L400.0100 ####[facility] [address] [place], [address] MCHC (RBC) [Mass/Vol] 33.5 g/dL Normal 32-36 [facility] Comment on above: Performed By: #### L 100.0200, L500.2900, L400.0100 ####[facility] [address] [place], [address] MCV (RBC) [Entitic vol] 80.8 fL Low 81-99 [facility] Comment on above: Performed By: #### L 100.0200, L500.2900, L400.0100 ####[facility] [address] [place], [address] Monocytes/100 WBC (Bld) 7.0 % Normal 0-10 [facility] Comment on above: Performed By: #### L 100.0200, L500.2900, L400.0100 ####[facility] [address] [place], [address] Neutrophils/100 WBC (Bld) 63.5 % Normal 47-70 [facility] Comment on above: Performed By: #### L 100.0200, L500.2900, L400.0100 ####[facility] [address] [place], [address] NRBC # 0.00 10 3/uL Normal 0-5 [facility] Comment on above: Performed By: #### L 100.0200, L500.2900, L400.0100 ####[facility] [address] [place], [address] Nucleated RBC (Bld) [#/Vol] 0 10*3/uL Normal 0-5 [facility] Comment on above: Performed By: #### L 100.0200, L500.2900, L400.0100 ####[facility] [address] [place], [address] Platelet mean volume (Bld) [Entitic vol] 10.2 fL Normal 6.2-12.0 [facility] Comment on above: Performed By: #### L 100.0200, L500.2900, L400.0100 ####[facility] [address] [place], [address] Platelets (Bld) [#/Vol] 261 10*3/uL Normal 150-450 [facility] Comment on above: Performed By: #### L 100.0200, L500.2900, L400.0100 ####[facility] [address] [place], [address] RBC (Bld) [#/Vol] 4.95 10*6/uL Normal 4.2-5.4 [facility] Comment on above: Performed By: #### L 100.0200, L500.2900, L400.0100 ####[facility] [address] [place], [address] RDW SD 37.7 fl Normal 35.1-43.9 [facility] Comment on above: Performed By: #### L 100.0200, L500.2900, L400.0100 ####[facility] [address] [place], [address] WBC (Bld) [#/Vol] 6.9 10*3/uL Normal 4.4-11.0 [facility] Comment on above: Performed By: #### L 100.0200, L500.2900, L400.0100 ####[facility] [address] [place], [address] Calculated very low density lipoprotein (VLDL) cholesterol measurementOrdered By: HEALTH ASSESSMENT on 10-29-2024 Calculated very low density lipoprotein (VLDL) cholesterol measurement 30 mg/dL 5-40 [facility] Carbon dioxide, total [Moles /volume] in Central venous bloodOrdered By: HEALTH ASSESSMENT on 10-29-2024 CO2 [Moles/Vol] 23.7 mmol/L 21.0-32.0 [facility] Chloride assayOrdered By: HE ALTH ASSESSMENT on 10-29-2024 Chloride [Moles/Vol] 106 mmol/L 98-108 [facility] Employee Profileon CHOL:HDL 4.64 Normal [facility] Comment on above: Performed By: #### L 100.0200, L500.2900, L400.0100 ####[facility] [address] [place], [address] Cholesterol [Mass/Vol] 155 mg/dL Normal <=200 [facility] Comment on above: Result Comment: Chol esterol level, Desirable <200 mg/dL Borderline high cholesterol 200-239 mg/dL High cholesterol >=240 mg/dL Recommendations of the NCEP Adult Treatment Panel for the following risk-cutoff thresholds for the [place] population. Performed By: #### L 100.0200, L500.2900, L400.0100 ####[facility] [address] [place], [address] Cholesterol in HDL [Mass/Vol] 33 mg/dL Low [facility] Comment on above: Result Comment: Eugenia onal Cholesterol Education Program (NCEP) guidelines: <40 mg/dL: Low HDL-cholesterol (major risk factor for CHD) >= 60 mg/dL: High HDL-cholesterol (negative risk factor for CHD) HDL-cholesterol is affected by a number of factors, e.g. smoking, exercise, hormones, sex and age. Performed By: #### L 100.0200, L500.2900, L400.0100 ####[facility] [address] [place], [address] Cholesterol in LDL [Mass/Vol] 92 mg/dL Normal [facility] Comment on above: Result Comment: Bord imocrn=120-657 mg/dL Higher Nvst=126 mg/dL or greater Friedwald Equation for LDL-C Performed By: #### L 100.0200, L500.2900, L400.0100 ####[facility] [address] [place], [address] Cholesterol in VLDL [Mass/Vol] 30 mg/dL Normal 5-40 [facility] Comment on above: Performed By: #### L 100.0200, L500.2900, L400.0100 ####[facility] [address] [place], [address] LDH 164 U/L Normal 84-246 [facility] Comment on above: Performed By: #### L 100.0200, L500.2900, L400.0100 ####[facility] [address] [place], [address] Phosphate [Mass/Vol] 3.9 mg/dL Normal 2.7-4.5 [facility] Comment on above: Performed By: #### L 100.0200, L500.2900, L400.0100 ####[facility] [address] [place], [address] Triglyceride [Mass/Vol] 150 mg/dL Normal [facility] Comment on above: Result Comment: The drugs N-Acetylcysteine and Metamizole may falsely depress this assay. Normal range: <150 mg/dL Borderline High: 150-199 mg/dL High: 200-499 mg/dL Very High: >500 mg/dL Performed By: #### L 100.0200, L500.2900, L400.0100 ####[facility] [address] [place], [address] URIC 3.6 mg/dL Normal 2.6-6.0 [facility] Comment on above: Result Comment: The drugs N-Acetylcysteine and Metamizole may falsely depress this assay. Performed By: #### L 100.0200, L500.2900, L400.0100 ####[facility] [address] [place], [address] Erythrocyte distribution wid th ratioOrdered By: HEALTH ASSESSMENT on 10-29-2024 Erythrocyte distribution width (RBC) [Ratio] 12.9 % 11.6-14.6 [facility] Erythrocyte distribution wid th standard deviationOrdered By: HEALTH ASSESSMENT on 10-29-2024 Erythrocyte distribution width (RBC) [Ratio] 37.7 fl 35.1-43.9 [facility] Free T3on 10-29-2024 Free T3 [Mass/Vol] 3.0 pg/mL Normal 2.18-3.98 [facility] Comment on above: Performed By: #### L 506.0400, L501.9985, L501.95144, L501.9520 #### [facility] [address] [place], [place], [address] Free R3Sxnvbrp By: Krystina ash on 10-29-2024 Free T3 [Mass/Vol] 3.0 pg/mL 2.18-3.98 [facility] Glomerular filtration rate ( GFR) estimation/1.73 sq m using serum, plasma, or whole bOrdered By: HEALTH ASSESSMENT on 10-29-2024 GFR/1.73 sq M.predicted among non-blacks MDRD (S/P/Bld) [Vol rate/Area] 108 mL/min/{1.73_m2} >60 [facility] Comment on above: mL/min/1.73m2 CKD-EP I Creatinine Equation (2020) Hematocrit Auto (Bld) [Volum e fraction]Ordered By: HEALTH ASSESSMENT on 10-29-2024 Hematocrit (Bld) [Volume fraction] 40.0 % 37-47 [facility] Hemoglobin A1con 10-29-2024 HbA1c (Bld) [Mass fraction] 5.5 % Normal <=5.6 [facility] Comment on above: Result Comment: Norm al < 5.7 % Prediabetic 5.7 - 6.4 % Diabetic >or= 6.5 % Please note range changes. Performed By: #### L 506.0400, L501.9985, L501.07946, L501.9520 ####[facility] [address] [place], [place], [address] Hemoglobin A1c percentageOrd ered By: Krystina Calle on 10-29-2024 HbA1c (Bld) [Mass fraction] 5.5 % <5.7 [facility] Comment on above: Normal < 5.7 % Predi abetic 5.7 - 6.4 % Diabetic >or= 6.5 % Please note range changes. Hemoglobin measurementOrdere d By: HEALTH ASSESSMENT on 10-29-2024 Hemoglobin (Bld) [Mass/Vol] 13.4 g/dL 12.0-15.0 [facility] Ketones Test strip Ql (U)Ord ered By: HEALTH ASSESSMENT on 10-29-2024 Ketones Ql (U) Negative Negative [facility] LDL calc ser/plasOrdered By: HEALTH ASSESSMENT on 10-29-2024 Cholesterol in LDL [Mass/Vol] 92 mg/dL [facility] Comment on above: Cwfwqbywtx=696-148 m g/dL & Higher Jzsg=109 mg/dL or greaterFriedwald Equation for LDL-C Laboratory - Chemistry and C hemistry - challengeOrdered By: HEALTH ASSESSMENT on 10-29-2024 AST [Catalytic activity/Vol] 23 U/L <32 [facility] Lactate dehydrogenase (LDH) measurementOrdered By: HEALTH ASSESSMENT on 10-29-2024 LDH [Catalytic activity/Vol] 164 U/L 84-246 [facility] MCV (mean corpuscular volume ) determinationOrdered By: HEALTH ASSESSMENT on 10-29-2024 MCV (RBC) [Entitic vol] 80.8 fL Low 81-99 [facility] Mean corpuscular hemoglobin (MCH) determinationOrdered By: HEALTH ASSESSMENT on 10-29-2024 MCH (RBC) [Entitic mass] 27.1 pg 27.0-32.0 [facility] Mean corpuscular hemoglobin concentration (MCHC) determinationOrdered By: HEALTH ASSESSMENT on 10-29-2024 MCHC (RBC) [Mass/Vol] 33.5 g/dL 32-36 [facility] Mean platelet volume determi nationOrdered By: HEALTH ASSESSMENT on 10-29-2024 Platelet mean volume (Bld) [Entitic vol] 10.2 fL 6.2-12.0 [facility] Nitrite Test strip Ql (U)Ord ered By: HEALTH ASSESSMENT on 10-29-2024 Nitrite Ql (U) Negative Negative [facility] Nucleated red blood cell per centageOrdered By: HEALTH ASSESSMENT on 10-29-2024 Nucleated RBC/100 WBC (Bld) [Ratio] 0 % 0-5 [facility] Platelet countOrdered By: HE ALTH ASSESSMENT on 10-29-2024 Platelets (Bld) [#/Vol] 261 10*3/uL 150-450 [facility] Potassium measurement (mass/ volume)Ordered By: HEALTH ASSESSMENT on 10-29-2024 Potassium (Unsp spec) [Mass/Vol] 4.1 mmol/L 3.3-5.1 [facility] Protein Test strip Ql (U)Ord ered By: HEALTH ASSESSMENT on 10-29-2024 Protein Ql (U) 15 mg/dl High Negative [facility] RBC Auto (Bld) [#/Vol]Ordere d By: HEALTH ASSESSMENT on 10-29-2024 RBC (Bld) [#/Vol] 4.95 10*6/uL 4.2-5.4 [facility] Screening total cholesterol/ high density lipoprotein (HDL) cholesterol ratioOrdered By: HEALTH ASSESSMENT on 10-29-2024 Cholesterol.total/Chol esterol in HDL [Mass ratio] 4.64 {ratio} [facility] Serum creatinine measurement (mass/volume)Ordered By: HEALTH ASSESSMENT on 10-29-2024 Creatinine [Mass/Vol] 0.67 mg/dL Low 0.70-1.20 [facility] Serum globulin measurementOr dered By: HEALTH ASSESSMENT on 10-29-2024 Globulin (S) [Mass/Vol] 2.2 g/dL 2.2-4.2 [facility] Serum glucose measurement (m ass/volume)Ordered By: HEALTH ASSESSMENT on 10-29-2024 Glucose [Mass/Vol] 122 mg/dL High 70-99 [facility] Serum or plasma alanine brown otransferase (ALT) measurementOrdered By: HEALTH ASSESSMENT on 10-29-2024 ALT [Catalytic activity/Vol] 45 U/L High <35 [facility] Serum or plasma albumin emmanuelle urement (mass/volume)Ordered By: HEALTH ASSESSMENT on 10-29-2024 Albumin [Mass/Vol] 4.4 g/dL 3.5-5.0 [facility] Serum or plasma albumin/glob ulin mass ratioOrdered By: HEALTH ASSESSMENT on 10-29-2024 Albumin/Globulin [Mass ratio] 2.0 {ratio} 0.9-2.4 [facility] Serum or plasma alkaline hayley sphatase measurementOrdered By: HEALTH ASSESSMENT on 10-29-2024 ALP [Catalytic activity/Vol] 81 U/L 35-104 [facility] Serum or plasma calcium emmanuelle urement (mass/volume)Ordered By: HEALTH ASSESSMENT on 10-29-2024 Calcium [Mass/Vol] 9.1 mg/dL 7.6-11.0 [facility] Serum or plasma cholesterol in HDL measurement (mass/volume)Ordered By: HEALTH ASSESSMENT on 10-29-2024 Cholesterol in HDL [Mass/Vol] 33 mg/dL Low >40 [facility] Comment on above: National Cholesterol Education Program (NCEP) guidelines:<40 mg/dL: Low HDL-cholesterol (major risk factor for CHD)>= 60 mg/dL: High HDL-cholesterol (negative risk factor for CHD)HDL-cholesterol is affected by a number of factors, e.g. smoking, exercise, hormones, sex and age. Serum or plasma cholesterol measurement (mass/volume)Ordered By: HEALTH ASSESSMENT on 10-29-2024 Cholesterol [Mass/Vol] 155 mg/dL <201 [facility] Comment on above: Cholesterol level, D esirable <200 mg/dLBorderline high cholesterol 200-239 mg/dLHigh cholesterol >=240 mg/dLRecommendations of the NCEP Adult Treatment Panel for the following risk-cutoff thresholds for the [place] population. Serum or plasma urea nitroge n measurement (mass/volume)Ordered By: HEALTH ASSESSMENT on 10-29-2024 Urea nitrogen [Mass/Vol] 16 mg/dL 4-19 [facility] Serum or plasma uric acid me asurement (mass/volume)Ordered By: HEALTH ASSESSMENT on 10-29-2024 Urate [Mass/Vol] 3.6 mg/dL 2.6-6.0 [facility] Comment on above: The drugs N-Acetylcy steine and Metamizole may falsely depress this assay. Sodium levelOrdered By: [facility] ASSESSMENT on 10-29-2024 Sodium [Moles/Vol] 141 mmol/L 133-145 [facility] T4 Free Directon 10-29-2024 T4 FREE DIRECT 1.20 ng/dL Normal 0.76-1.46 [facility] Comment on above: Performed By: #### L 506.0400, L501.9985, L501.26812, L501.9520 ####[facility] [address] [place], [address] T4 freeOrdered By: Krystina ash on 10-29-2024 Free T4 [Mass/Vol] 1.20 ng/dL 0.76-1.46 [facility] TSH DL <= 0.005 mIU/L QnOrde red By: Krystina Calle on 10-29-2024 TSH Qn 1.720 uIU/mL 0.300-4.200 [facility] Thyroid Stim Hormone (TSH)on 10-29-2024 TSH 1.720 uIU/mL Normal 0.300-4.200 [facility] Comment on above: Performed By: #### L 506.0400, L501.9985, L501.53223, L501.9520 #### [facility] [address] [place], [place], [id number] Total proteinOrdered By: [facility] ASSESSMENT on 10-29-2024 Protein [Mass/Vol] 6.6 g/dL 5.9-8.4 [facility] Triglycerides measurementOrd ered By: HEALTH ASSESSMENT on 10-29-2024 Triglyceride [Mass/Vol] 150 mg/dL <199 [facility] Comment on above: The drugs N-Acetylcy steine and Metamizole may falsely depress this assay. Normal range: <150 mg/dLBorderline High: 150-199 mg/dLHigh: 200-499 mg/dLVery High: >500 mg/dL Urinalysis, Employeeon 10-29 BILIRUBIN URINE Negative Normal Negative [facility] Comment on above: Order Comment: Urine , Random Performed By: #### L 100.0200, L500.2900, L400.0100 ####[facility] [address] [place], [address] Clarity (U) Clear Normal Clear [facility] Comment on above: Order Comment: Urine , Random Performed By: #### L 100.0200, L500.2900, L400.0100 ####[facility] [address] [place], [address] Color (U) Yellow Normal Yellow [facility] Comment on above: Order Comment: Urine , Random Performed By: #### L 100.0200, L500.2900, L400.0100 ####[facility] [address] [place], [address] GLUCOSE, UR Normal Normal Normal [facility] Comment on above: Order Comment: Urine , Random Performed By: #### L 100.0200, L500.2900, L400.0100 ####[facility] [address] [place], [address] KETONE UR Negative Normal Negative [facility] Comment on above: Order Comment: Urine , Random Performed By: #### L 100.0200, L500.2900, L400.0100 ####[facility] [address] [place], [address] LEUK ESTERASE Negative Normal Negative [facility] [facility] Comment on above: Order Comment: Urine , Random Performed By: #### L 100.0200, L500.2900, L400.0100 ####[facility] [address] [place], [address] Nitrite Ql (U) Negative Normal Negative [facility] Comment on above: Order Comment: Urine , Random Performed By: #### L 100.0200, L500.2900, L400.0100 ####[facility] [address] [place], [address] OCCULT BLOOD-UR 10 /ul Abnormal Negative [facility] Comment on above: Order Comment: Urine , Random Performed By: #### L 100.0200, L500.2900, L400.0100 ####[facility] [address] [place], [address] pH UR 6.5 Normal 5.0 - 8.0 [facility] Comment on above: Order Comment: Urine , Random Performed By: #### L 100.0200, L500.2900, L400.0100 ####[facility] [address] [place], [address] PROT DIPSTX 15 mg/dl Abnormal Negative [facility] Comment on above: Order Comment: Urine , Random Performed By: #### L 100.0200, L500.2900, L400.0100 ####[facility] [address] [place], [address] SP.GR. DIPSTX 1.015 Normal 1.002-1.030 [facility] Comment on above: Order Comment: Urine , Random Performed By: #### L 100.0200, L500.2900, L400.0100 ####[facility] [address] [place], [address] UROBILI Normal Normal Normal [facility] Comment on above: Order Comment: Urine , Random Performed By: #### L 100.0200, L500.2900, L400.0100 ####[facility] [address] [place], [address] Urine clarityOrdered By: [facility] ASSESSMENT on 10-29-2024 Clarity (U) Clear Clear [facility] Urine color determinationOrd ered By: HEALTH ASSESSMENT on 10-29-2024 Color (U) Yellow Yellow [facility] Urine glucose detectionOrder ed By: HEALTH ASSESSMENT on 10-29-2024 Glucose Ql (U) Normal mg/dl Normal [facility] Urine leukocyte esterase det ection by dipstickOrdered By: HEALTH ASSESSMENT on 10-29-2024 Leukocyte esterase Test strip Ql (U) Negative Negative [facility] Urine pHOrdered By: HEALTH A SSESSMENT on 10-29-2024 pH (U) 6.5 [pH] 5.0 - 8.0 [facility] Urine specific gravity measu rementOrdered By: HEALTH ASSESSMENT on 10-29-2024 Specific gravity (U) [Rel density] 1.015 1.002-1.030 [facility] Urine urobilinogen measureme ntOrdered By: HEALTH ASSESSMENT on 10-29-2024 Urobilinogen Ql (U) Normal mg/dl Normal [facility] White blood cell (WBC) count Ordered By: HEALTH ASSESSMENT on 10-29-2024 WBC (Bld) [#/Vol] 6.9 10*3/uL 4.4-11.0 [facility] BCR/ABL1 P190 QUANTITATIVE P CR BLOODon 10-12-2024 BCR/ABL1 P190 INTERPRETATION Normal [facility] Comment on above: Order Comment: Speci men Type: BLOOD SPECIMENOrdering Facility: [facility] Address: [address] [place] [address] Result Comment: BCR/ ABL1 p190 Quantitative PCR Laboratory Accession Number: [id number] Result: UNDETECTED NCN: N/A Interpretation: p190 BCR/ABL1 [...] this sample, and cDNA prepared by reverse side gluer. Real time PCR was performed using primers for e1a2 BCR/ABL1 fusion transcripts and ABL1 transcripts (qPCR BCR/ABL minor, TrackIF, [place], [place]). This test does not detect p210 (e13a2 or e14a2) or other rare BCR/ABL1 transcripts. This assay has a limit of quantification of 0.0036% (LR4.4) and limit of detection of 0.0025% (LR4.6). Disclaimer: This test was developed and its performance characteristics determined by [facility]'s Pathology and Laboratory Medicine Department. It has not been cleared or approved by the FDA. [facility]'s Pathology and Laboratory Medicine Department is regulated under CLIA as certified to perform high-complexity testing. This test is used for clinical purposes. It should not be regarded as investigational or for research. Test performed at [facility], [address] [place] [address]. CLIA Number: [id number] Interpretation performed by Jessica Bennett, PhD, [facility] Performed By: #### P 210P, P190P ####[facility] LIMSCLIA [id number] [place] [address] [place]#### 190NCBP, 210ISBP ####[facility] LABCLIA [id number] [place] [address] [place] BCR/ABL1 Q045NHS BLOOD( AND BCR/ABL1:ABL1)on 10-12-2024 BCR/ABL1 P190 NCN(%BCR/ABL1:ABL1) N/A Normal [facility] Comment on above: Order Comment: Speci men Type: BLOOD SPECIMENOrdering Facility: [facility] Address: [address] [place] [address] Performed By: #### P 210P, P190P ####[facility] LIMSCLIA [id number] [place] [address] [place]#### 190NCBP, 210ISBP ####[facility] LABCLIA [id number] [place] [address] [place] BCR/ABL1 P210 %IS PANELon BCR/ABL1 P210 %IS 0.003 Normal [facility] Comment on above: Order Comment: Speci men Type: BLOOD SPECIMENOrdering Facility: [facility] Address: [address] [place] [address] Performed By: #### P 210P, P190P ####[facility] LIMSCLIA [id number] [place] [address] [place]#### 190NCBP, 210ISBP ####[facility] LABCLIA [id number] [address] [place] BCR/ABL1 P210 MR 4.53 Normal [facility] Comment on above: Order Comment: Speci men Type: BLOOD SPECIMENOrdering Facility: [facility] Address: [address] [place] [address] Performed By: #### P 210P, P190P ####[facility] LIMSCLIA [id number] [place] [address] [place]#### 190NCBP, 210ISBP ####[facility] LABCLIA [id number] [address] [place] BCR/ABL1 P210 QUANTITATIVE P CR BLOOD 10-12-2024 BCR/ABL1 P210 INTERPRETATION Normal [facility] Comment on above: Order Comment: Speci men Type: BLOOD SPECIMENOrdering Facility: [facility] Address: [address] [place] [address] Result Comment: BCR/ ABL1 p210 Quantitative PCR Laboratory Accession Number: [id number] Result: DETECTED MR: 4.53 %IS: 0.003 Interpretation: p210 BCR/ABL1 transcripts were detected. Quantitative results are expressed on the International Scale (IS) and a log molecular response (MR) is calculated. On this scale, a value of less than or equal to 0.1% corresponds to a major molecular response (MMR or MR3.0). Methodology: The TrackIF QuantideX BCR/ABL IS assay is an FDA-cleared [...] Blood 2006;108:28-37; Cornelio et al, Leukemia 2015;29:999-1003 Interpretation performed by Jessica Bennett, PhD, HCLD Performed By: #### P 210P, P190P ####[facility] LIMSCLIA [id number] [address] [place]#### 190NCBP, 210ISBP ####[facility] LABCLIA [id number] [place] [address] [place] CBC W Auto Differential pane l (Bld)on 10-12-2024 Basophils (Bld) [#/Vol] 0.06 10*3/uL Normal <0.11 [facility] Comment on above: Order Comment: Speci men Type: BLOOD SPECIMEN [facility] Address: [address] [place] [address] Performed By: #### 5 7021-8 #### [facility] [id number] [address] [place] [address] [place] Basophils/100 WBC (Bld) 0.6 % Normal [facility] Comment on above: Order Comment: Speci men Type: BLOOD SPECIMEN [facility] Address: [address] [place] [address] Performed By: #### 5 7021-8 #### [facility] CLIA [id number] [address] [place] [address] [place] Differential cell count method Nom (Bld) Auto Normal [facility] Comment on above: Order Comment: Speci men Type: BLOOD SPECIMEN [facility] Address: [address] [place] [address] Performed By: #### 5 7021-8 #### [facility] CLIA [id number] [address] [place] [address] [place] Eosinophils (Bld) [#/Vol] 0.18 10*3/uL Normal <0.46 [facility] Comment on above: Order Comment: Speci men Type: BLOOD SPECIMEN [facility] Address: [address] [place] [address] Performed By: #### 5 7021-8 #### [facility] CLIA [id number] [address] [place] [address] [place] Eosinophils/100 WBC (Bld) 1.8 % Normal [facility] Comment on above: Order Comment: Speci men Type: BLOOD SPECIMEN [facility] Address: [address] [place] [address] Performed By: #### 5 7021-8 #### [facility] CLIA [id number] [address] [place] [address] [place] Erythrocyte distribution width (RBC) [Ratio] 13.2 % Normal 11.5-15.0 [facility] Comment on above: Order Comment: Speci men Type: BLOOD SPECIMEN [facility] Address: [address] [place] [address] Performed By: #### 5 7021-8 #### [facility] CLIA [id number] [address] [place] [address] [place] Hematocrit (Bld) [Volume fraction] 39.8 % Normal 36.0-46.0 [facility] Comment on above: Order Comment: Speci men Type: BLOOD SPECIMEN [facility] Address: [address] [place] [address] Performed By: #### 5 7021-8 #### [facility] CLIA [id number] [address] [place] [address] [place] Hemoglobin (Bld) [Mass/Vol] 13.4 g/dL Normal 11.5-15.5 [facility] Comment on above: Order Comment: Speci men Type: BLOOD SPECIMEN [facility] Address: [address] [place] [address] Performed By: #### 5 7021-8 #### [facility] CLIA [id number] [address] [place] [address] [place] Immature granulocytes (Bld) [#/Vol] 0.06 10*3/uL Normal <0.10 [facility] Comment on above: Order Comment: Speci men Type: BLOOD SPECIMEN [facility] Address: [address] [place] [address] Performed By: #### 5 7021-8 #### [facility] CLIA [id number] [address] [place] [address] [place] Immature granulocytes/100 WBC (Bld) 0.6 % Normal [facility] Comment on above: Order Comment: Speci men Type: BLOOD SPECIMEN [facility] Address: [address] [place] [address] Performed By: #### 5 7021-8 #### [facility] CLIA [id number] [address] [place] [address] [place] Lymphocytes (Bld) [#/Vol] 1.85 10*3/uL Normal 1.00-4.00 [facility] Comment on above: Order Comment: Speci men Type: BLOOD SPECIMEN [facility] Address: [address] [place] [address] Performed By: #### 5 7021-8 #### [facility] CLIA [id number] [address] [place] [address] [place] Lymphocytes/100 WBC (Bld) 18.1 % Normal [facility] Comment on above: Order Comment: Speci men Type: BLOOD SPECIMEN [facility] Address: [address] [place] [place] [address] Performed By: #### 5 7021-8 #### [facility] CLIA [id number] [address] [place] [address] [place] MCH (RBC) [Entitic mass] 26.8 pg Normal 26.0-34.0 [facility] Comment on above: Order Comment: Speci men Type: BLOOD SPECIMEN [facility] Address: [address] [place] [address] Performed By: #### 5 7021-8 #### [facility] CLIA [id number] [address] [place] [address] [place] MCHC (RBC) [Mass/Vol] 33.7 g/dL Normal 30.5-36.0 [facility] Comment on above: Order Comment: Speci men Type: BLOOD SPECIMEN [facility] Address: [address] [place] [address] Performed By: #### 5 7021-8 #### [facility] [id number] [address] [place] [address] [place] MCV (RBC) [Entitic vol] 79.6 fL Low 80.0-100.0 [facility] Comment on above: Order Comment: Speci men Type: BLOOD SPECIMEN [facility] Address: [address] [place] [address] Performed By: #### 5 7021-8 #### [facility] CLIA [id number] [address] [place] [address] [place] Monocytes (Bld) [#/Vol] 0.55 10*3/uL Normal <0.87 [facility] Comment on above: Order Comment: Speci men Type: BLOOD SPECIMEN [facility] Address: [address] [place] [address] Performed By: #### 5 7021-8 #### [facility] CLIA [id number] [address] [place] [address] [place] Monocytes/100 WBC (Bld) 5.4 % Normal [facility] Comment on above: Order Comment: Speci men Type: BLOOD SPECIMEN [facility] Address: [address] [place] [address] Performed By: #### 5 7021-8 #### [facility] CLIA [id number] [address] [place] [address] [place] Neutrophils (Bld) [#/Vol] 7.53 10*3/uL High 1.45-7.50 [facility] Comment on above: Order Comment: Speci men Type: BLOOD SPECIMEN [facility] Address: [address] [place] [address] Performed By: #### 5 7021-8 #### [facility] CLIA [id number] [address] [place] [address] [place] Neutrophils/100 WBC (Bld) 73.5 % Normal [facility] Comment on above: Order Comment: Speci men Type: BLOOD SPECIMEN [facility] Address: [address] [place], [place] [address] Performed By: #### 5 7021-8 #### [facility] CLIA [id number] [address] [place] [address] [place] Nucleated RBC (Bld) [#/Vol] 10*3/uL Normal <0.01 [facility] Comment on above: Order Comment: Speci men Type: BLOOD SPECIMEN [facility] Address: [address] [place] [address] Performed By: #### 5 7021-8 #### [facility] CLIA [id number] [address] [place] [address] [place] Nucleated RBC/100 WBC (Bld) [Ratio] 0.0 /100 WBC Normal [facility] Comment on above: Order Comment: Speci men Type: BLOOD SPECIMEN [facility] Address: [address] [place], [place] [address] Performed By: #### 5 7021-8 #### [facility] CLIA [id number] [address] [place] [address] [place] Platelet mean volume (Bld) [Entitic vol] 10.0 fL Normal 9.0-12.7 [facility] Comment on above: Order Comment: Speci men Type: BLOOD SPECIMEN [facility] Address: [address] [place], [place] [address] Performed By: #### 5 7021-8 #### [facility] CLIA [id number] [address] [place] [address] [place] Platelets (Bld) [#/Vol] 254 10*3/uL Normal 150-400 [facility] Comment on above: Order Comment: Speci men Type: BLOOD SPECIMEN [facility] Address: [address] [place] [address] Performed By: #### 5 7021-8 #### [facility] CLIA [id number] [address] [place] [address] [place] RBC (Bld) [#/Vol] 5.00 10*6/uL Normal 3.90-5.20 [facility] Comment on above: Order Comment: Speci men Type: BLOOD SPECIMEN [facility] Address: [address] [place] [address] Performed By: #### 5 7021-8 #### [facility] CLIA [id number] [address] [place] [address] [place] WBC (Bld) [#/Vol] 10.23 10*3/uL Normal 3.70-11.00 [facility] Comment on above: Order Comment: Speci men Type: BLOOD SPECIMEN [facility] Address: [address] [place] [address] Performed By: #### 5 7021-8 #### [facility] CLIA [id number] [address] [place] [address] [place] Comprehensive metabolic 2000 panelon 10-12-2024 Albumin [Mass/Vol] 4.4 g/dL Normal 3.9-4.9 [facility] Comment on above: Order Comment: Speci men Type: BLOOD SPECIMEN [facility] Address: [address] [place] [address] Performed By: #### 5 7021-8 #### [facility] CLIA [id number] [address] [place] [address] [place] ALP [Catalytic activity/Vol] 81 U/L Normal 34-123 [facility] Comment on above: Order Comment: Speci men Type: BLOOD SPECIMEN [facility] Address: [address] [place] [address] Performed By: #### 5 7021-8 #### [facility] CLIA [id number] [address] [place] [address] [place] ALT [Catalytic activity/Vol] 34 U/L Normal 7-38 [facility] Comment on above: Order Comment: Speci men Type: BLOOD SPECIMEN [facility] Address: [address] [place] [address] Performed By: #### 5 7021-8 #### [facility] [id number] [address] [place] [address] [place] Anion gap [Moles/Vol] 16 mmol/L High 8-15 [facility] Comment on above: Order Comment: Speci men Type: BLOOD SPECIMEN [facility] Address: [address] [place] [address] Performed By: #### 5 7021-8 #### [facility] CL[facility] [id number] [address] [place] [address] [place] AST [Catalytic activity/Vol] 14 U/L Normal 13-35 [facility] Comment on above: Order Comment: Speci men Type: BLOOD SPECIMEN [facility] Address: [address] [place] [address] Performed By: #### 5 7021-8 #### [facility] CLIA [id number] [address] [place] [address] [place] Bilirubin [Mass/Vol] 0.5 mg/dL Normal 0.2-1.3 [facility] Comment on above: Order Comment: Speci men Type: BLOOD SPECIMEN [facility] Address: [address] [place] [address] Performed By: #### 5 7021-8 #### [facility] CLIA [id number] [address] [place] [address] [place] Calcium [Mass/Vol] 9.0 mg/dL Normal 8.5-10.2 [facility] Comment on above: Order Comment: Speci men Type: BLOOD SPECIMEN [facility] Address: [address] [place] [address] Performed By: #### 5 7021-8 #### [facility] CLIA [id number] [address] [place] [address] [place] Chloride [Moles/Vol] 104 mmol/L Normal 98-107 [facility] Comment on above: Order Comment: Speci men Type: BLOOD SPECIMEN [facility] Address: [address] [place] [address] Performed By: #### 5 7021-8 #### [facility] CLIA [id number] [address] [place] [address] [place] CO2 [Moles/Vol] 21 mmol/L Low 22-30 [facility] Comment on above: Order Comment: Speci men Type: BLOOD SPECIMEN [facility] Address: [address] [place] [address] Performed By: #### 5 7021-8 #### [facility] CLIA [id number] [address] [place] [address] [place] Creatinine [Mass/Vol] 0.60 mg/dL Normal 0.58-0.96 [facility] Comment on above: Order Comment: Speci men Type: BLOOD SPECIMEN [facility] Address: [address] [place] [address] Performed By: #### 5 7021-8 #### [facility] [id number] [address] [place] [address] [place] eGFRcr SerPlBld CKD-EPI 2020 112 mL/min/1.73m??? Normal >=60 [facility] Comment on above: Order Comment: Karenai men Type: BLOOD SPECIMEN [facility] Address: [address] [place] [address] Result Comment: Antoinette mated Glomerular Filtration Rate [...] accurately reflect actual GFR. Performed By: #### 5 7021-8 #### [facility] CLIA [id number] [address] [place] [address] [place] Glucose [Mass/Vol] 116 mg/dL High 74-99 [facility] Comment on above: Order Comment: Karenai men Type: BLOOD SPECIMEN [facility] Address: [address] [place] [address] Result Comment: The [place] Diabetes Association (ADA) provides guidance for cutoff [...] Standards of Medical Care in Diabetes 2016, [place] [employer] Association. Diabetes Care. 2016.39(Suppl 1). Performed By: #### 5 7021-8 #### [facility] CLIA [id number] [address] [place] [address] [place] Potassium [Moles/Vol] 3.9 mmol/L Normal 3.7-5.1 [facility] Comment on above: Order Comment: Karenai hollis Type: BLOOD SPECIMEN [facility] Address: [address] [place] [address] Performed By: #### 5 7021-8 #### [facility] CLIA [id number] [address] [place] [address] [place] Protein [Mass/Vol] 6.8 g/dL Normal 6.3-8.0 [facility] Comment on above: Order Comment: Kaitlin shafer Type: BLOOD SPECIMEN [facility] Address: [address] [place] [address] Performed By: #### 5 7021-8 #### [facility] CLIA [id number] [address] [place] [address] [place] Sodium [Moles/Vol] 141 mmol/L Normal 136-144 [facility] Comment on above: Order Comment: Karenai men Type: BLOOD SPECIMEN [facility] Address: [address] [place] [address] Performed By: #### 5 7021-8 #### [facility] CLIA [id number] [address] [place] [address] [place] Urea nitrogen [Mass/Vol] 10 mg/dL Normal 7-21 [facility] Comment on above: Order Comment: Kaitlin shafer Type: BLOOD SPECIMEN [facility] Address: [address] [place] [address] Performed By: #### 5 7021-8 #### [facility] CLIA [id number] [address] [place] CNPNon 09-28-2024 CNPN Telephone (HEMAWS) -- LIBIA OLIVAS ([id number]) 1975 F Date Time Provider Department 09/28/24 FABIANO LIZ HEMAWS During your visit today, we recorded the following information about you: Sona Carlos 09/28/2024 3:45 PM Signed Patient called stating she contacted [facility] to fill prescription Scemblix. She was informed that is not available. They do not know when they would get it in. Patient has 2 days left of medication. She states if we contact [facility] they will be able to transfer the prescription to another location. Patient says that will save her some money. Please advise patient. Alisha Romero LPN 09/28/2024 4:06 PM Signed I reached out to [facility] and to the patient. Transfers are pharmacy to pharmacy, therefore, [facility] will need to reach out to [facility] to initiate the transfer of the Rx. I contacted [facility] [place] and a message will be given to the pharmacist to contact [facility] to transfer the Rx. Dr. Liz [...] Status:Closed by ALISHA ROMERO on 09/29/24 Normal [facility] Orthopedic Visit Reporton Orthopedic Visit Report [facility] [address] [place] [address] OFFICE VISIT Date of Service: 08/20/24 MR#: [id number] Acct: [id number] Name: LIBIA LOIVAS FRIDA Rep #: [id number] : 1975 Provider: Dr. Dallas Rojas MD Age/Sex: 49/F Location: [facility] Status: Signed Intake Vital Signs 02/24/24 09:07 [...] 02/24/24 08/20/24 Hi story tablet,extended release (Klor-Con) PFSH Medical History Wears glasses Wears contact [...] home: Yes additional 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: - [facility] ER NURSE HPI LUMBAR SPINE Details: This documentation accurately reflects the service provided and the decisions made by me, Dr. Dallas Rojas MD 08/20/24 2260. 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 She denies any physical therapy. She was [...] Right s (more content not included)... Normal [facility] Magnetic resonance imaging r eportOrdered By: Lalit Romero on 08-11-2024 Study report [facility] Services [address] [place] [address] Spine Lumbar (Routine) MR#: [id number] Acct: [id number] Name: LIBIA OLIVAS FRIDA Rep #: [id number] : 1975 F 49 From: Lupe Romero MD PCP: Dr. Krystian Calle, Status: REG CLI Study:Spine Lumbar (Routine) Date of Exam: 08/10/24 Exam# [id number] Ordering Dr: Avelino READ PROCEDURE: SPINE LUMBAR [...] ESHA READ; Dr. Krystina Calle DO ~ Scaffold Setter: Signed [facility] Spine Lumbar (Routine)on Spine Lumbar (Routine) [facility] Services [address] [place] [address] Spine Lumbar (Routine) MR#: [id number] Acct: [id number] Name: LIBIA OLIVAS FRIDA Rep #: [id number] : 1975 F 49 From: Lalit Romero MD PCP: Dr. Krystina Calle DO Status: REG CLI Study: Spine Lumbar (Routine) Date of Exam: 08/10/24 Exam# [id number] Ordering Dr: ESHA READ PROCEDURE: SPINE LUMBAR [...] CC: ESHA READ; Dr. Krystina Calle DO Scaffold Setter: Signed Normal [facility] CBC W Auto Differential pane l (Bld)on 07-29-2024 Basophils (Bld) [#/Vol] 0.07 10*3/uL Normal <0.11 [facility] Comment on above: Order Comment: Speci men Type: BLOOD SPECIMEN Ordering Facility: [facility] Address: [address] [place] [address] Performed By: #### 5 7021-8 #### [facility] CLIA [id number] [address] [place] [address] [place] Basophils/100 WBC (Bld) 0.7 % Normal [facility] Comment on above: Order Comment: Speci men Type: BLOOD SPECIMEN Ordering Facility: [facility] Address: [address] [place] [address] Performed By: #### 5 7021-8 #### [facility] CLIA [id number] [address] [place] [address] [place] Differential cell count method Nom (Bld) Auto Normal [facility] Comment on above: Order Comment: Speci men Type: BLOOD SPECIMEN Ordering Facility: [facility] Address: [address] [place] [address] Performed By: #### 5 7021-8 #### [facility] CLIA [id number] [address] [place] [address] [place] Eosinophils (Bld) [#/Vol] 0.22 10*3/uL Normal <0.46 [facility] Comment on above: Order Comment: Speci men Type: BLOOD SPECIMEN Ordering Facility: [facility] Address: [address] [place] [address] Performed By: #### 5 7021-8 #### [facility] CLIA [id number] [address] [place] [address] [place] Eosinophils/100 WBC (Bld) 2.4 % Normal [facility] Comment on above: Order Comment: Speci men Type: BLOOD SPECIMEN Ordering Facility: [facility] Address: [address] [place] [address] Performed By: #### 5 7021-8 #### [facility] CLIA [id number] [address] [place] [address] [place] Erythrocyte distribution width (RBC) [Ratio] 13.2 % Normal 11.5-15.0 [facility] Comment on above: Order Comment: Speci men Type: BLOOD SPECIMEN Ordering Facility: [facility] Address: [address] [place] [address] Performed By: #### 5 7021-8 #### [facility] CLIA [id number] [address] [place] [address] [place] Hematocrit (Bld) [Volume fraction] 39.1 % Normal 36.0-46.0 [facility] Comment on above: Order Comment: Speci men Type: BLOOD SPECIMEN Ordering Facility: [facility] Address: [address] [place] [address] Performed By: #### 5 7021-8 #### [facility] CLIA [id number] [address] [place] [address] [place] Hemoglobin (Bld) [Mass/Vol] 13.0 g/dL Normal 11.5-15.5 [facility] Comment on above: Order Comment: Speci men Type: BLOOD SPECIMEN Ordering Facility: [facility] Address: [address] [place] [address] Performed By: #### 5 7021-8 #### [facility] CLIA [id number] [address] [place] [address] [place] Immature granulocytes (Bld) [#/Vol] 0.06 10*3/uL Normal <0.10 [facility] Comment on above: Order Comment: Speci men Type: BLOOD SPECIMEN Ordering Facility: [facility] Address: [address] [place] [address] Performed By: #### 5 7021-8 #### [facility] CLIA [id number] [address] [place] [address] [place] Immature granulocytes/100 WBC (Bld) 0.6 % Normal [facility] Comment on above: Order Comment: Speci men Type: BLOOD SPECIMEN Ordering Facility: [facility] Address: [address] [place] [address] Performed By: #### 5 7021-8 #### [facility] CLIA [id number] [address] [place] [address] [place] Lymphocytes (Bld) [#/Vol] 1.48 10*3/uL Normal 1.00-4.00 [facility] Comment on above: Order Comment: Speci men Type: BLOOD SPECIMEN Ordering Facility: [facility] Address: [address] [place] [address] Performed By: #### 5 7021-8 #### [facility] CLIA [id number] [address] [place] [address] [place] Lymphocytes/100 WBC (Bld) 15.8 % Normal [facility] Comment on above: Order Comment: Speci men Type: BLOOD SPECIMEN Ordering Facility: [facility] Address: [address] [place] [address] Performed By: #### 5 7021-8 #### [facility] CLIA [id number] [address] [place] [address] [place] MCH (RBC) [Entitic mass] 27.0 pg Normal 26.0-34.0 [facility] Comment on above: Order Comment: Speci men Type: BLOOD SPECIMEN Ordering Facility: [facility] Address: [address] [place] [address] Performed By: #### 5 7021-8 #### [facility] CLIA [id number] [address] [place] [address] [place] MCHC (RBC) [Mass/Vol] 33.2 g/dL Normal 30.5-36.0 [facility] Comment on above: Order Comment: Speci men Type: BLOOD SPECIMEN Ordering Facility: [facility] Address: [address] [place] [address] Performed By: #### 5 7021-8 #### [facility] CLIA [id number] [address] [place] [address] [place] MCV (RBC) [Entitic vol] 81.3 fL Normal 80.0-100.0 [facility] Comment on above: Order Comment: Speci men Type: BLOOD SPECIMEN Ordering Facility: [facility] Address: [address] [place] [address] Performed By: #### 5 7021-8 #### [facility] CLIA [id number] [address] [place] [address] [place] Monocytes (Bld) [#/Vol] 0.67 10*3/uL Normal <0.87 [facility] Comment on above: Order Comment: Speci men Type: BLOOD SPECIMEN Ordering Facility: [facility] Address: [address] [place] [address] Performed By: #### 5 7021-8 #### [facility] CLIA [id number] [address] [place] [address] [place] Monocytes/100 WBC (Bld) 7.2 % Normal [facility] Comment on above: Order Comment: Speci men Type: BLOOD SPECIMEN Ordering Facility: [facility] Address: [address] [place] [address] Performed By: #### 5 7021-8 #### [facility] CLIA [id number] [address] [place] [address] [place] Neutrophils (Bld) [#/Vol] 6.84 10*3/uL Normal 1.45-7.50 [facility] Comment on above: Order Comment: Speci men Type: BLOOD SPECIMEN Ordering Facility: [facility] Address: [address] [place] [address] Performed By: #### 5 7021-8 #### [facility] CLIA [id number] [address] [place] [address] [place] Neutrophils/100 WBC (Bld) 73.3 % Normal [facility] Comment on above: Order Comment: Speci men Type: BLOOD SPECIMEN Ordering Facility: [facility] Address: [address] [place] [address] Performed By: #### 5 7021-8 #### [facility] CLIA [id number] [address] [place] [address] [place] Nucleated RBC (Bld) [#/Vol] 10*3/uL Normal <0.01 [facility] Comment on above: Order Comment: Speci men Type: BLOOD SPECIMEN Ordering Facility: [facility] Address: [address] [place] [address] Performed By: #### 5 7021-8 #### [facility] CLIA [id number] [address] [place] [address] [place] Nucleated RBC/100 WBC (Bld) [Ratio] 0.0 /100 WBC Normal [facility] Comment on above: Order Comment: Speci men Type: BLOOD SPECIMEN Ordering Facility: [facility] Address: [address] [place] [address] Performed By: #### 5 7021-8 #### [facility] CLIA [id number] [address] [place] [address] [place] Platelet mean volume (Bld) [Entitic vol] 9.5 fL Normal 9.0-12.7 [facility] Comment on above: Order Comment: Speci men Type: BLOOD SPECIMEN Ordering Facility: [facility] Address: [address] [place] [place] [address] Performed By: #### 5 7021-8 #### [facility] CLIA [id number] [address] [place] [address] [place] Platelets (Bld) [#/Vol] 227 10*3/uL Normal 150-400 [facility] Comment on above: Order Comment: Speci men Type: BLOOD SPECIMEN Ordering Facility: [facility] Address: [address] [place] [address] Performed By: #### 5 7021-8 #### [facility] CLIA [id number] [address] [place] [address] [place] RBC (Bld) [#/Vol] 4.81 10*6/uL Normal 3.90-5.20 [facility] Comment on above: Order Comment: Speci men Type: BLOOD SPECIMEN Ordering Facility: [facility] Address: [address] [place], [place] [address] Performed By: #### 5 7021-8 #### [facility] CLIA [id number] [address] [place] [address] [place] WBC (Bld) [#/Vol] 9.34 10*3/uL Normal 3.70-11.00 [facility] Comment on above: Order Comment: Speci men Type: BLOOD SPECIMEN Ordering Facility: [facility] Address: [address] [place], [place] [address] Performed By: #### 5 7021-8 #### [facility] CLIA [id number] [address] [place] [address] [place] Comprehensive metabolic 2000 panelon 07-29-2024 Albumin [Mass/Vol] 4.1 g/dL Normal 3.9-4.9 [facility] Comment on above: Order Comment: Speci men Type: BLOOD SPECIMENOrdering Facility: [facility] Address: [address] [place] [address] Performed By: #### 2 4323-8 ####[facility] [id number] [place] [address] [place] ALP [Catalytic activity/Vol] 71 U/L Normal 34-123 [facility] Comment on above: Order Comment: Speci men Type: BLOOD SPECIMENOrdering Facility: [facility] Address: [address] [place], [place] [address] Performed By: #### 2 4323-8 ####[facility] [id number] [place] [address] [place] ALT [Catalytic activity/Vol] 22 U/L Normal 7-38 [facility] Comment on above: Order Comment: Speci men Type: BLOOD SPECIMENOrdering Facility: [facility] Address: [address] [place] [address] Performed By: #### 2 4323-8 ####[facility] [place] MILLTOWNCLIA [id number] [place] [address] [place] Anion gap [Moles/Vol] 7 mmol/L Low 8-15 [facility] Comment on above: Order Comment: Speci men Type: BLOOD SPECIMENOrdering Facility: [facility] Address: [address] [place] [address] Performed By: #### 2 4323-8 ####[facility] MILLWNCLIA [id number] [place] [address] [place] AST [Catalytic activity/Vol] 10 U/L Low 13-35 [facility] Comment on above: Order Comment: Speci men Type: BLOOD SPECIMENOrdering Facility: [facility] Address: [address] [place] [address] Performed By: #### 2 4323-8 ####[facility] MILLTOWNCLIA [id number] [place] [address] [place] Bilirubin [Mass/Vol] 0.4 mg/dL Normal 0.2-1.3 [facility] Comment on above: Order Comment: Speci men Type: BLOOD SPECIMENOrdering Facility: [facility] Address: [address] [place] [address] Performed By: #### 2 4323-8 ####[facility] MILLTOWNCLIA [id number] [place] [address] [place] Calcium [Mass/Vol] 8.9 mg/dL Normal 8.5-10.2 [facility] Comment on above: Order Comment: Speci men Type: BLOOD SPECIMENOrdering Facility: [facility] Address: [address] [place] [address] Performed By: #### 2 4323-8 ####[facility] DEEJAYWNCLIA [id number] [place] [address] [place] Chloride [Moles/Vol] 107 mmol/L Normal 98-107 [facility] Comment on above: Order Comment: Speci men Type: BLOOD SPECIMENOrdering Facility: [facility] Address: [address] [place] [address] Performed By: #### 2 4323-8 ####[facility]ITALWNCLIA [id number] [place] [address] [place] CO2 [Moles/Vol] 26 mmol/L Normal 22-30 [facility] Comment on above: Order Comment: Speci men Type: BLOOD SPECIMENOrdering Facility: [facility] Address: [address] [place] [address] Performed By: #### 2 4323-8 ####[facility] [id number] [place] [address] [place] Creatinine [Mass/Vol] 0.65 mg/dL Normal 0.58-0.96 [facility] Comment on above: Order Comment: Speci men Type: BLOOD SPECIMENOrdering Facility: [facility] Address: [address] [place] [address] Performed By: #### 2 4323-8 ####[facility]CL[facility] [id number] [place] [address] [place] Creatinine and Glomerular filtration rate.predicted panel (S/P/Bld) 109 mL/min/1.73m??? Normal >=60 [facility] Comment on above: Order Comment: Speci men Type: BLOOD SPECIMENOrdering Facility: [facility] Address: [address] [place], [place] [address] Result Comment: Antoinette mated Glomerular Filtration Rate [...] actual GFR. Performed By: #### 2 4323-8 ####[facility] [id number] [place] [address] [place] Glucose [Mass/Vol] 130 mg/dL High 74-99 [facility] Comment on above: Order Comment: Kaitlin shafer Type: BLOOD SPECIMENOrdering Facility: [facility] Address: [address] [place] [address] Result Comment: The [place] Diabetes Association (ADA) provides guidance for cutoff [...] Standards of Medical Care in Diabetes 2016, [place] Diabetes Association. Diabetes Care. 2016.39(Suppl 1). Performed By: #### 2 4323-8 ####[facility] [id number] [place] [address] [place] Potassium [Moles/Vol] 4.1 mmol/L Normal 3.7-5.1 [facility] Comment on above: Order Comment: Kaitlin shafer Type: BLOOD SPECIMENOrdering Facility: [facility] Address: [address] [place] [address] Performed By: #### 2 4323-8 ####[facility] [id number] [place] [address] [place] Protein [Mass/Vol] 6.4 g/dL Normal 6.3-8.0 [facility] Comment on above: Order Comment: Speci men Type: BLOOD SPECIMENOrdering Facility: [facility] Address: [address] [place] [address] Performed By: #### 2 4323-8 ####[facility] MILLWNCLIA [id number] [place] [address] [place] Sodium [Moles/Vol] 140 mmol/L Normal 136-144 [facility] Comment on above: Order Comment: Speci men Type: BLOOD SPECIMENOrdering Facility: [facility] Address: [address] [place] [address] Performed By: #### 2 4323-8 ####[facility]CL[facility] [id number] [place] [address] [place] Urea nitrogen [Mass/Vol] 10 mg/dL Normal 7-21 [facility] Comment on above: Order Comment: Speci men Type: BLOOD SPECIMENOrdering Facility: [facility] Address: [address] [place] [address] Performed By: #### 2 4323-8 ####[facility]CLIA [id number] [place] [address] [place] L/S Spine Bending Flex/[place] 07-14-2024 L/S Spine Bending Flex/Ext [facility] [address] [place] [address] L/S Spine Bending Flex/Ext MR#: [id number] Acct: [id number] Name: LIBIA OLIVAS FRIDA Rep #: [id number] : 1975 F 49 From: Chau Martinez MD PCP: Dr. Krystina Calle, DO Status: REG CLI Study: L/S Spine Bending Flex/Ext Date of Exam: 07/14 Exam# [id number] Ordering Dr: Mireya Cortez PROCEDURE: L/S SPINE [...] the flexion and extension views. Reading Location: [id number] CC: AZEB Love; Dr. Krystina Calle DO Scaffold Setter: Signed Normal [facility] CBC W Auto Differential pane l (Bld)on 07-01-2024 Basophils (Bld) [#/Vol] 0.05 10*3/uL Normal <0.11 [facility] Comment on above: Order Comment: Speci men Type: BLOOD SPECIMEN [facility] Address: [address] [place] [address] Performed By: #### 5 7021-8 #### [facility] CLIA [id number] [address] [place] [address] [place] Basophils/100 WBC (Bld) 0.9 % Normal [facility] Comment on above: Order Comment: Speci men Type: BLOOD SPECIMEN [facility] Address: [address] [place] [address] Performed By: #### 5 7021-8 #### [facility] CLIA [id number] [address] [place] [address] [place] Differential cell count method Nom (Bld) Auto Normal [facility] Comment on above: Order Comment: Speci men Type: BLOOD SPECIMEN [facility] Address: [address] [place] [address] Performed By: #### 5 7021-8 #### [facility] CLIA [id number] [address] [place] [address] [place] Eosinophils (Bld) [#/Vol] 0.18 10*3/uL Normal <0.46 [facility] Comment on above: Order Comment: Speci men Type: BLOOD SPECIMEN [facility] Address: [address] [place] [address] Performed By: #### 5 7021-8 #### [facility] CLIA [id number] [address] [place] [address] [place] Eosinophils/100 WBC (Bld) 3.2 % Normal [facility] Comment on above: Order Comment: Speci men Type: BLOOD SPECIMEN [facility] Address: [address] [place] [address] Performed By: #### 5 7021-8 #### [facility] [id number] [address] [place] [address] [place] Erythrocyte distribution width (RBC) [Ratio] 12.8 % Normal 11.5-15.0 [facility] Comment on above: Order Comment: Speci men Type: BLOOD SPECIMEN [facility] Address: [address] [place] [address] Performed By: #### 5 7021-8 #### [facility] CLIA [id number] [address] [place] [address] [place] Hematocrit (Bld) [Volume fraction] 39.1 % Normal 36.0-46.0 [facility] Comment on above: Order Comment: Speci men Type: BLOOD SPECIMEN [facility] Address: [address] [place] [address] Performed By: #### 5 7021-8 #### [facility] CLIA [id number] [address] [place] [address] [place] Hemoglobin (Bld) [Mass/Vol] 13.2 g/dL Normal 11.5-15.5 [facility] Comment on above: Order Comment: Speci men Type: BLOOD SPECIMEN [facility] Address: [address] [place] [address] Performed By: #### 5 7021-8 #### [facility] CLIA [id number] [address] [place] [address] [place] Immature granulocytes (Bld) [#/Vol] 0.03 10*3/uL Normal <0.10 [facility] Comment on above: Order Comment: Speci men Type: BLOOD SPECIMEN [facility] Address: [address] [place] [address] Performed By: #### 5 7021-8 #### [facility] CLIA [id number] [address] [place] [address] [place] Immature granulocytes/100 WBC (Bld) 0.5 % Normal [facility] Comment on above: Order Comment: Speci men Type: BLOOD SPECIMEN [facility] Address: [address] [place] [address] Performed By: #### 5 7021-8 #### [facility] CLIA [id number] [address] [place] [address] [place] Lymphocytes (Bld) [#/Vol] 1.25 10*3/uL Normal 1.00-4.00 [facility] Comment on above: Order Comment: Speci men Type: BLOOD SPECIMEN [facility] Address: [address] [place] [address] Performed By: #### 5 7021-8 #### [facility] CLIA [id number] [address] [place] [address] [place] Lymphocytes/100 WBC (Bld) 22.2 % Normal [facility] Comment on above: Order Comment: Speci men Type: BLOOD SPECIMEN [facility] Address: [address] [place] [address] Performed By: #### 5 7021-8 #### [facility] CLIA [id number] [address] [place] [address] [place] MCH (RBC) [Entitic mass] 27.3 pg Normal 26.0-34.0 [facility] Comment on above: Order Comment: Speci men Type: BLOOD SPECIMEN [facility] Address: [address] [place] [address] Performed By: #### 5 7021-8 #### [facility] [id number] [address] [place] [address] [place] MCHC (RBC) [Mass/Vol] 33.8 g/dL Normal 30.5-36.0 [facility] Comment on above: Order Comment: Speci men Type: BLOOD SPECIMEN [facility] Address: [address] [place] [address] Performed By: #### 5 7021-8 #### [facility] [id number] [address] [place] [address] [place] MCV (RBC) [Entitic vol] 81.0 fL Normal 80.0-100.0 [facility] Comment on above: Order Comment: Speci men Type: BLOOD SPECIMEN [facility] Address: [address] [place] [address] Performed By: #### 5 7021-8 #### [facility] [id number] [address] [place] [address] [place] Monocytes (Bld) [#/Vol] 0.48 10*3/uL Normal <0.87 [facility] Comment on above: Order Comment: Speci men Type: BLOOD SPECIMEN [facility] Address: [address] [place] [address] Performed By: #### 5 7021-8 #### [facility] [id number] [address] [place] [address] [place] Monocytes/100 WBC (Bld) 8.5 % Normal [facility] Comment on above: Order Comment: Speci men Type: BLOOD SPECIMEN Ordering Facility: [facility] Address: [address] [place] [id number] Performed By: #### 5 7021-8 #### [facility] CLIA [id number] [address] [place] [address] [place] Neutrophils (Bld) [#/Vol] 3.65 10*3/uL Normal 1.45-7.50 [facility] Comment on above: Order Comment: Speci men Type: BLOOD SPECIMEN Ordering Facility: [facility] Address: [address] [place] [address] Performed By: #### 5 7021-8 #### [facility] CLIA [id number] [address] [place] [address] [place] Neutrophils/100 WBC (Bld) 64.7 % Normal [facility] Comment on above: Order Comment: Speci men Type: BLOOD SPECIMEN Ordering Facility: [facility] Address: [address] [place] [address] Performed By: #### 5 7021-8 #### [facility] CLIA [id number] [address] [place] [address] [place] Nucleated RBC (Bld) [#/Vol] 10*3/uL Normal <0.01 [facility] Comment on above: Order Comment: Speci men Type: BLOOD SPECIMEN Ordering Facility: [facility] Address: [address] [place] [address] Performed By: #### 5 7021-8 #### [facility] CLIA [id number] [address] [place] [address] [place] Nucleated RBC/100 WBC (Bld) [Ratio] 0.0 /100 WBC Normal [facility] Comment on above: Order Comment: Speci men Type: BLOOD SPECIMEN Ordering Facility: [facility] Address: [address] [place] [address] Performed By: #### 5 7021-8 #### [facility] CLIA [id number] [address] [place] [address] [place] Platelet mean volume (Bld) [Entitic vol] 10.1 fL Normal 9.0-12.7 [facility] Comment on above: Order Comment: Speci men Type: BLOOD SPECIMEN Ordering Facility: [facility] Address: [address] [place] [address] Performed By: #### 5 7021-8 #### [facility] CLIA [id number] [address] [place] [address] [place] Platelets (Bld) [#/Vol] 209 10*3/uL Normal 150-400 [facility] Comment on above: Order Comment: Speci men Type: BLOOD SPECIMEN Ordering Facility: [facility] Address: [address] [place], [place] [address] Performed By: #### 5 7021-8 #### [facility] CLIA [id number] [address] [place] [address] [place] RBC (Bld) [#/Vol] 4.83 10*6/uL Normal 3.90-5.20 [facility] Comment on above: Order Comment: Speci men Type: BLOOD SPECIMEN Ordering Facility: [facility] Address: [address] [place], [place] [address] Performed By: #### 5 7021-8 #### [facility] CLIA [id number] [address] [place] [address] [place] WBC (Bld) [#/Vol] 5.64 10*3/uL Normal 3.70-11.00 [facility] Comment on above: Order Comment: Speci men Type: BLOOD SPECIMEN Ordering Facility: [facility] Address: [address] [place], [place] [address] Performed By: #### 5 7021-8 #### [facility] PADMINI [id number] [address] [place] [address] [place] CNOVSPon 07-01-2024 CNOVSP Visit (SP) Office (H EMAWS) -- LIBIA OLIVAS ([id number]) 1975 F Date Time Provider Department 07/01/24 [...] since hadn't had in a year) at [facility] and incidental leukocytosis with WBC count 135.68K. Hgb and platelets normal. Recheck at [facility] 07/21/2022 revealed total white count 131.8 thousand. [...] starting [employer]. Plain film was done at [facility] indicating disc space narrowing at L4-L5 [...] from sciatica. She has an appointment with davian galeas (more content not included)... Normal [facility] Lipase SerPl-cCncon 07-02-19 25 Lipase [Catalytic activity/Vol] 13 U/L Low 16-61 [facility] Comment on above: Order Comment: Speci men Type: BLOOD SPECIMENOrdering Facility: [facility] Address: [address] [place] [address] Performed By: #### 3 040-3 ####[facility] LABCLIA [id number] [place] [address] [place] CNPNon 06-26-2024 CNPN Telephone (PATRICK) -- LIBIA OLIVAS ([id number]) 1975 F Date Time Provider Department 06/26/24 ESHA READ During your visit today, we recorded the following information about you: Esha Read 06/26/2024 2:22 PM Signed Called patient to review XR of spine. Recommend MRI lumbar to further evaluate. Should also get in to see ortho. Pt is agreeable. Will need imaging at [facility]. PSR: Can you please fax orders and get her set up to have MRI lumbar at [facility] please? Referral placed to ORTHO also at [facility]. Esha Read APRN.Mode Clark 06/26/2024 3:51 PM Signed Referrals have been faxed to [facility], confirmation scanned into docs. Mode Moss Allergies As of Date: 06/26/2024 Noted Allergy Reaction IV DYE (IODINATED CONTRAST MEDIA) 07/25/2022 4 - Hives 7 - Swelling NUBAIN (NALBUPHINE HCL) 05/23/2015 11 - Vomiting Date Reviewed: 06/18/2024 Reviewed by: Esha Read - Fully Assessed Primary Visit Diagnosis:Spinal stenosis of lumbar region, unspecified whether neurogenic claudication present [M48.061] Order(s):MRI LUMBAR SPINE WO IVCON [[id number]] Order #: [id number] FUTURE CONSULT TO ORTHOPAEDICS [9026] Order #: [id number]: 1 FUTURE Prescriptions as of 06/26/2024 - [...] Status:Closed by MODE MOSS on 06/26/24 Normal [facility] CBC W Auto Differential pane l (Bld)on 06-18-2024 Basophils (Bld) [#/Vol] 0.06 10*3/uL Normal <0.11 [facility] Comment on above: Order Comment: Speci men Type: BLOOD SPECIMEN Ordering Facility[facility] Address: [address] [place] [address] Performed By: #### 5 7021-8 #### [facility] CLIA [id number] [address] [place] [address] [place] Basophils/100 WBC (Bld) 0.8 % Normal [facility] Comment on above: Order Comment: Speci men Type: BLOOD SPECIMEN Ordering Facility: [facility] Address: [address] [place] [address] Performed By: #### 5 7021-8 #### [facility] CLIA [id number] [address] [place] [address] [place] Differential cell count method Nom (Bld) Auto Normal [facility] Comment on above: Order Comment: Speci men Type: BLOOD SPECIMEN Ordering Facility: [facility] Address: [address] [place] [address] Performed By: #### 5 7021-8 #### [facility] CLIA [id number] [address] [place] [address] [place] Eosinophils (Bld) [#/Vol] 0.18 10*3/uL Normal <0.46 [facility] Comment on above: Order Comment: Speci men Type: BLOOD SPECIMEN Ordering Facility: [facility] Address: [address] [place] [address] Performed By: #### 5 7021-8 #### [facility] CLIA [id number] [address] [place] [address] [place] Eosinophils/100 WBC (Bld) 2.3 % Normal [facility] Comment on above: Order Comment: Speci men Type: BLOOD SPECIMEN Ordering Facility: [facility] Address: [address] [place] [address] Performed By: #### 5 7021-8 #### [facility] CLIA [id number] [address] [place] [address] [place] Erythrocyte distribution width (RBC) [Ratio] 13.0 % Normal 11.5-15.0 [facility] Comment on above: Order Comment: Speci men Type: BLOOD SPECIMEN Ordering Facility: [facility] Address: [address] [place] [address] Performed By: #### 5 7021-8 #### [facility] [id number] [address] [place] [address] [place] Hematocrit (Bld) [Volume fraction] 36.0 % Normal 36.0-46.0 [facility] Comment on above: Order Comment: Speci men Type: BLOOD SPECIMEN Ordering Facility: [facility] Address: [address] [place] [address] Performed By: #### 5 7021-8 #### [facility] CLIA [id number] [address] [place] [address] [place] Hemoglobin (Bld) [Mass/Vol] 12.4 g/dL Normal 11.5-15.5 [facility] Comment on above: Order Comment: Speci men Type: BLOOD SPECIMEN Ordering Facility: [facility] Address: [address] [place] [address] Performed By: #### 5 7021-8 #### [facility] CLIA [id number] [address] [place] [address] [place] Immature granulocytes (Bld) [#/Vol] 0.05 10*3/uL Normal <0.10 [facility] Comment on above: Order Comment: Speci men Type: BLOOD SPECIMEN Ordering Facility: [facility] Address: [address] [place] [address] Performed By: #### 5 7021-8 #### [facility] CLIA [id number] [address] [place] [address] [place] Immature granulocytes/100 WBC (Bld) 0.6 % Normal [facility] Comment on above: Order Comment: Speci men Type: BLOOD SPECIMEN Ordering Facility: [facility] Address: [address] [place] [address] Performed By: #### 5 7021-8 #### [facility] CLIA [id number] [address] [place] [address] [place] Lymphocytes (Bld) [#/Vol] 1.50 10*3/uL Normal 1.00-4.00 [facility] Comment on above: Order Comment: Speci men Type: BLOOD SPECIMEN Ordering Facility: [facility] Address: [address] [place] [address] Performed By: #### 5 7021-8 #### [facility] CLIA [id number] [address] [place] [address] [place] Lymphocytes/100 WBC (Bld) 18.9 % Normal [facility] Comment on above: Order Comment: Speci men Type: BLOOD SPECIMEN Ordering Facility: [facility] Address: [address] [place] [address] Performed By: #### 5 7021-8 #### [facility] CLIA [id number] [address] [place] [address] [place] MCH (RBC) [Entitic mass] 28.1 pg Normal 26.0-34.0 [facility] Comment on above: Order Comment: Speci men Type: BLOOD SPECIMEN Ordering Facility: [facility] Address: [address] [place] [address] Performed By: #### 5 7021-8 #### [facility] CLIA [id number] [address] [place] [address] [place] MCHC (RBC) [Mass/Vol] 34.4 g/dL Normal 30.5-36.0 [facility] Comment on above: Order Comment: Speci men Type: BLOOD SPECIMEN Ordering Facility: [facility] Address: [address] [place] [address] Performed By: #### 5 7021-8 #### [facility] CLIA [id number] [address] [place] [address] [place] MCV (RBC) [Entitic vol] 81.6 fL Normal 80.0-100.0 [facility] Comment on above: Order Comment: Speci men Type: BLOOD SPECIMEN [facility] Address: [address] [place] [address] Performed By: #### 5 7021-8 #### [facility] CLIA [id number] [address] [place] [address] [place] Monocytes (Bld) [#/Vol] 0.47 10*3/uL Normal <0.87 [facility] Comment on above: Order Comment: Speci men Type: BLOOD SPECIMEN Ordering [facility] Address: [address] [place] [address] Performed By: #### 5 7021-8 #### [facility] CLIA [id number] [address] [place] [address] [place] Monocytes/100 WBC (Bld) 5.9 % Normal [facility] Comment on above: Order Comment: Speci men Type: BLOOD SPECIMEN Ordering Facility[facility] Address: [address] [place] [address] Performed By: #### 5 7021-8 #### [facility] CLIA [id number] [address] [place] [address] [place] Neutrophils (Bld) [#/Vol] 5.66 10*3/uL Normal 1.45-7.50 [facility] Comment on above: Order Comment: Speci men Type: BLOOD SPECIMEN Ordering Facility: [facility] Address: [address] [place] [address] Performed By: #### 5 7021-8 #### [facility] CLIA [id number] [address] [place] [address] [place] Neutrophils/100 WBC (Bld) 71.5 % Normal [facility] Comment on above: Order Comment: Speci men Type: BLOOD SPECIMEN Ordering Facility[facility] Address: [address] [place] [address] Performed By: #### 5 7021-8 #### [facility] CLIA [id number] [address] [place] [address] [place] Nucleated RBC (Bld) [#/Vol] 10*3/uL Normal <0.01 [facility] Comment on above: Order Comment: Speci men Type: BLOOD SPECIMEN Ordering Facility: [facility] Address: [address] [place] [address] Performed By: #### 5 7021-8 #### [facility] CLIA [id number] [address] [place] [address] [place] Nucleated RBC/100 WBC (Bld) [Ratio] 0.0 /100 WBC Normal [facility] Comment on above: Order Comment: Speci men Type: BLOOD SPECIMEN Ordering Facility[facility] Address: [address] [place] [address] Performed By: #### 5 7021-8 #### [facility] CLIA [id number] [address] [place] [address] [place] Platelet mean volume (Bld) [Entitic vol] 10.5 fL Normal 9.0-12.7 [facility] Comment on above: Order Comment: Speci men Type: BLOOD SPECIMEN Ordering Facility: [facility] Address: [address] [place], [place] [address] Performed By: #### 5 7021-8 #### [facility] CLIA [id number] [address] [place] [address] [place] Platelets (Bld) [#/Vol] 240 10*3/uL Normal 150-400 [facility] Comment on above: Order Comment: Speci men Type: BLOOD SPECIMEN Ordering Facility[facility] Address: [address] [place] [address] Performed By: #### 5 7021-8 #### [facility] CLIA [id number] [address] [place] [address] [place] RBC (Bld) [#/Vol] 4.41 10*6/uL Normal 3.90-5.20 [facility] Comment on above: Order Comment: Speci men Type: BLOOD SPECIMEN Order[facility] Address: [address] [place] [address] Performed By: #### 5 7021-8 #### [facility] CLIA [id number] [address] [place] [address] [place] WBC (Bld) [#/Vol] 7.92 10*3/uL Normal 3.70-11.00 [facility] Comment on above: Order Comment: Speci men Type: BLOOD SPECIMEN [facility] Address: [address] [place] [address] Performed By: #### 5 7021-8 #### [facility] CLIA [id number] [address] [place] [address] [place] CNOVSPon 06-18-2024 CNOVSP Visit [facility]SP) [id number] -- NEELAHMETLIBIA JEAN ([id number]) 1975 F Date Time Provider Department 06/18/24 [...] since hadn't had in a year) at [facility] and incidental leukocytosis with WBC count 135.68K. Hgb and platelets normal. Recheck at [facility] 07/21/2022 revealed total white count 131.8 thousand. [...] plan for xray to be done at [facility] - also recommended establishing with ortho for chronic spinal issues. - follow up pending XR, otherwise keep future appts as scheduled Esha Read APRN.WAREHOUSE UNLOADER I spent (more content not included)... Normal [facility] Lipase SerPl-cCncon 06-19-19 25 Lipase [Catalytic activity/Vol] 15 U/L Low 16- [facility] Comment on above: Order Comment: Speci men Type: BLOOD SPECIMENOrdering Facility: [facility] Address: [address] [place] [address] Performed By: #### 3 040-3 ####[facility] LABCLIA [id number] [address] [facility] Lumbar Spine 2 or 3 Viewson 06-18-2024 Lumbar Spine 2 or 3 Views [facility] [address] [place] [address] 928851 Lumbar Spine 2 or 3 Views MR#: [id number] Acct: [id number] Name: LIBIA OLIVAS FRIDA Rep #: [id number] : 1975 F 49 From: Jana Emerson PCP: Dr. Krystina Calle, DO Status: REG CLI Study: Lumbar Spine 2 or 3 Views Date of Exam: Exam# [id number] Ordering Dr: Toño Brandon o. PROCEDURE: LUMBAR [...] and abnormal plain film findings. Reading Location: [id number] CC: ESHA READ; Dr. Krystina Calle DO Scaffold Setter: Signed Normal [facility] Lipaseon 06-15-2024 Lipase [Catalytic activity/Vol] 18 U/L Normal 13-75 [facility] Comment on above: Result Comment: [place] helms note: LIPASE revised reference range effective 22. New Lipase methodology. Expected to produce lower values than the previous assay method. NEW Reference Range: 13 - 75 U/L Performed By: #### L 501.2450 #### [facility] Laboratory [facility] [place], [address] Lipase measurementOrdered By : Fabiano Liz on 06-15-2024 Lipase [Catalytic activity/Vol] 18 U/L 13-75 [facility] Comment on above: Please note:LIPASE r evised reference range effective 22. New Lipase methodology. Expected to produce lower values than the previous assay method. NEW Reference Range: 13 - 75 U/L CNPChristina 06-12-2024 CNPN Telephone (HEMMIRYAM) -- LIBIA OLIVAS ([id number]) 1975 F Date Time Provider Department 06/12/24 [...] obtain plain film x-rays and schedule an ROUTE VENDING MACHINE SERVICER visit. DO Bibi Rodriguez Amber, RN 06/15/2024 11:46 AM Signed Patient would like to have lab checked at [facility]. Order faxed. Patient informed of Dr. Liz's response and stated understanding. WENDIE To Amber, RN 06/15/2024 4:14 PM Addendum Copied from [facility]: LIPASE 18 13-75 U/L Please note: LIPASE revised reference range effective 22. New Lipase methodology. Expected to produce lower values than the previous assay method. NEW Reference Range: 13 - 75 U/L WENDIE To Paul A, DO 06/15/2024 4:55 PM Signed That's good. Can we set up OV with ROUTE VENDING MACHINE SERVICER to assess back pain further? DO Leilani Rodriguez Brandy 06/15/2024 5:04 PM Addendum I called and spoke to Libia and schedule her to see Esha Read on 06/18/24 she was schedule already that day for blood pressure check Patient confirmed this date and time Judith Duke Pss Allergies As of Date: 06/12/2024 Noted Allergy Reaction IV DYE (IODINATED CONTRAST MEDIA) 07/25/2022 4 - Hives 7 - Swelling NUBAIN (NALBUPHINE HCL) 05/23/2015 11 - Vomiting Date Reviewed: 0 (more content not included)... Normal [facility] CNPChristina 05-05-2024 CNPN Telephone (PATRICK) -- LIBIA OLIVAS ([id number]) 1975 F Date Time Provider Department 05/05/24 LIGIA MTZ During your visit today, we [...] DO - Fully Assessed Reason for Visit: Pharmacist - Other [3602] Cmt: Oral Anti-Cancer Agents [...] Encounter Status:Closed by LIGIA MTZ on 06/02/24 Normal [facility] CNOVSPon 04-27-2024 CNOVSP Visit (SP) Office (H EMAWS) -- LIBIA OLIVAS ([id number]) 1975 F Date Time Provider Department 04/27/24 [...] since hadn't had in a year) at [facility] and incidental leukocytosis with WBC count 135.68K. Hgb and platelets normal. Recheck at [facility] 07/21/2022 revealed total white count 131.8 thousand. [...] Fabiano Liz DO Referring Provider: FABIANO LIZ [[id number]] Allergies As of Date: 04/27/2024 (more content not included)... Normal [facility] BCR/ABL1 P210 %IS PANELon BCR/ABL1 P210 %IS 0.01 Normal [facility] Comment on above: Order Comment: Kaitlin shafer Type: BLOOD SPECIMEN [facility] Address: [address] [place] [address] Performed By: #### 5 7021-8 #### [facility] CLIA [id number] [address] [place] [address] [place] BCR/ABL1 P210 MR 4 [facility] Comment on above: Order Comment: Speci men Type: BLOOD SPECIMEN [facility] Address: [address] [place] [address] Performed By: #### 5 7021-8 #### [facility] CLIA [id number] [address] [place] [address] OF [place] BCR/ABL1 P210 QUANTITATIVE P CR BLOODon 04-20-2024 BCR/ABL1 P210 INTERPRETATION Normal [facility] Comment on above: Order Comment: Speci men Type: BLOOD SPECIMEN [facility] Address: [address] [place] [address] Result Comment: BCR/ ABL1 p210 Quantitative PCR Laboratory Accession Number: [id number] Result: DETECTED MR: 4 %IS: 0.01 Interpretation: p210 BCR/ABL1 transcripts were detected. Quantitative results are expressed on the International Scale (IS) and a log molecular response (MR) is calculated. On this scale, a value of less than or equal to 0.1% corresponds to a major molecular response (MMR or MR3.0). Methodology: The TrackIF QuantideX BCR/ABL IS assay is an FDA-cleared [...] by Aaron Garcia MD Performed By: #### 5 7021-8 #### [facility] [id number] [address] [place] [address] [place] CBC W Auto Differential pane l (Bld)on 04-20-2024 Basophils (Bld) [#/Vol] 0.04 10*3/uL Normal <0.11 [facility] Comment on above: Order Comment: Speci men Type: BLOOD SPECIMENOrdering Facility: [facility] Address: [address] [place] [address] Performed By: #### 5 7021-8 ####[facility] DEEJAYWNCLIA [id number] [place] [address] [place] Basophils/100 WBC (Bld) 0.6 % Normal [facility] Comment on above: Order Comment: Speci men Type: BLOOD SPECIMENOrdering Facility: [facility] Address: [address] [place] [address] Performed By: #### 5 7021-8 ####[facility] [id number] [place] [address] [place] Differential cell count method Nom (Bld) Auto Normal [facility] Comment on above: Order Comment: Speci men Type: BLOOD SPECIMENOrdering Facility: [facility] Address: [address] [place] [address] Performed By: #### 5 7021-8 ####[facility] [id number] [place] [address] [place] Eosinophils (Bld) [#/Vol] 0.25 10*3/uL Normal <0.46 [facility] Comment on above: Order Comment: Speci men Type: BLOOD SPECIMENOrdering Facility: [facility] Address: [address] [place] [address] Performed By: #### 5 7021-8 ####[facility] MILLWNCLIA [id number] [place] [address] [place] Eosinophils/100 WBC (Bld) 3.5 % Normal [facility] Comment on above: Order Comment: Speci men Type: BLOOD SPECIMENOrdering Facility: [facility] Address: [address] [place] [address] Performed By: #### 5 7021-8 ####[facility] [id number] [place] [address] [place] Erythrocyte distribution width (RBC) [Ratio] 13.8 % Normal 11.5-15.0 [facility] Comment on above: Order Comment: Speci men Type: BLOOD SPECIMENOrdering Facility: [facility] Address: [address] [place] [address] Performed By: #### 5 7021-8 ####[facility] [id number] [place] [address] [place] Hematocrit (Bld) [Volume fraction] 37.1 % Normal 36.0-46.0 [facility] Comment on above: Order Comment: Speci men Type: BLOOD SPECIMENOrdering Facility: [facility] Address: [address] [place] [address] Performed By: #### 5 7021-8 ####[facility]ALIAron [id number] [place] [address] [place] Hemoglobin (Bld) [Mass/Vol] 12.4 g/dL Normal 11.5-15.5 [facility] Comment on above: Order Comment: Speci men Type: BLOOD SPECIMENOrdering Facility: [facility] Address: [address] [place] [address] Performed By: #### 5 7021-8 ####[facility] [id number] [place] [address] [place] Immature granulocytes (Bld) [#/Vol] 10*3/uL Normal <0.10 [facility] [facility] Comment on above: Order Comment: Speci men Type: BLOOD SPECIMENOrdering Facility: [facility] Address: [address] [place] [address] Performed By: #### 5 7021-8 ####[facility]ITAL[facility]CL[facility] [id number] [place] [address] [place] Immature granulocytes/100 WBC (Bld) 0.1 % Normal [facility] Comment on above: Order Comment: Speci men Type: BLOOD SPECIMENOrdering Facility: [facility] Address: [address] [place] [address] Performed By: #### 5 7021-8 ####[facility] [id number] [place] [address] [place] Lymphocytes (Bld) [#/Vol] 1.47 10*3/uL Normal 1.00-4.00 [facility] Comment on above: Order Comment: Speci men Type: BLOOD SPECIMENOrdering Facility: [facility] Address: [address] [place] [address] Performed By: #### 5 7021-8 ####[facility] [id number] [place] [address] [place] Lymphocytes/100 WBC (Bld) 20.9 % Normal [facility] Comment on above: Order Comment: Speci men Type: BLOOD SPECIMENOrdering Facility: [facility] Address: [address] [place] [address] Performed By: #### 5 7021-8 ####[facility] [id number] [place] [address] [place] MCH (RBC) [Entitic mass] 27.7 pg Normal 26.0-34.0 [facility] Comment on above: Order Comment: Speci men Type: BLOOD SPECIMENOrdering Facility: [facility] Address: [address] [place], [place] [address] Performed By: #### 5 7021-8 ####[facility] [id number] [place] [address] [place] MCHC (RBC) [Mass/Vol] 33.4 g/dL Normal 30.5-36.0 [facility] Comment on above: Order Comment: Speci men Type: BLOOD SPECIMENOrdering Facility: [facility] Address: [address] [place] [address] Performed By: #### 5 7021-8 ####[facility] DEEJAYVERNERCARYL [id number] [place] [address] [place] MCV (RBC) [Entitic vol] 83.0 fL Normal 80.0-100.0 [facility] Comment on above: Order Comment: Speci men Type: BLOOD SPECIMENOrdering Facility: [facility] Address: [address] [place] [address] Performed By: #### 5 7021-8 ####[facility] [id number] [place] [address] [place] Monocytes (Bld) [#/Vol] 0.38 10*3/uL Normal <0.87 [facility] Comment on above: Order Comment: Speci men Type: BLOOD SPECIMENOrdering Facility: [facility] Address: [address] [place] [address] Performed By: #### 5 7021-8 ####[facility]ITAL[facility] [id number] [place] [address] [place] Monocytes/100 WBC (Bld) 5.4 % Normal [facility] Comment on above: Order Comment: Speci men Type: BLOOD SPECIMENOrdering Facility: [facility] Address: [address] [place] [address] Performed By: #### 5 7021-8 ####[facility] BEACHWOODLIA [id number] [place] [address] [place] Neutrophils (Bld) [#/Vol] 4.90 10*3/uL Normal 1.45-7.50 [facility] Comment on above: Order Comment: Speci men Type: BLOOD SPECIMENOrdering Facility: [facility] Address: [address] [place] [address] Performed By: #### 5 7021-8 ####[facility] DEEJAYVERNERTINALIA [id number] [place] [address] [place] Neutrophils/100 WBC (Bld) 69.5 % Normal [facility] Comment on above: Order Comment: Speci men Type: BLOOD SPECIMENOrdering Facility: [facility] Address: [address] [place] [address] Performed By: #### 5 7021-8 ####[facility] [id number] [place] [address] [place] Nucleated RBC (Bld) [#/Vol] 10*3/uL Normal <0.01 [facility] Comment on above: Order Comment: Speci men Type: BLOOD SPECIMENOrdering Facility: [facility] Address: [address] [place] [address] Performed By: #### 5 7021-8 ####[facility] [id number] [place] [address] [place] Nucleated RBC/100 WBC (Bld) [Ratio] 0.0 /100 WBC Normal [facility] Comment on above: Order Comment: Speci men Type: BLOOD SPECIMENOrdering Facility: [facility] Address: [address] [place] [address] Performed By: #### 5 7021-8 ####[facility] [id number] [place] [address] [place] Platelet mean volume (Bld) [Entitic vol] 10.4 fL Normal 9.0-12.7 [facility] Comment on above: Order Comment: Speci men Type: BLOOD SPECIMENOrdering Facility: [facility] Address: [address] [place] [address] Performed By: #### 5 7021-8 ####[facility]PITALNCLI [id number] [place] [address] [place] Platelets (Bld) [#/Vol] 221 10*3/uL Normal 150-400 [facility] Comment on above: Order Comment: Speci men Type: BLOOD SPECIMENOrdering Facility: [facility] Address: [address] [place] [address] Performed By: #### 5 7021-8 ####[facility]PITALWNCLIA [id number] [place] [address] [place] RBC (Bld) [#/Vol] 4.47 10*6/uL Normal 3.90-5.20 [facility] Comment on above: Order Comment: Speci men Type: BLOOD SPECIMENOrdering Facility: [facility] Address: [address] [place] [address] Performed By: #### 5 7021-8 ####[facility]PITALNCLIA [id number] [place] [address] [place] WBC (Bld) [#/Vol] 7.05 10*3/uL Normal 3.70-11.00 [facility] Comment on above: Order Comment: Speci men Type: BLOOD SPECIMENOrdering Facility: [facility] Address: [address] [place] [address] Performed By: #### 5 7021-8 ####[facility]ITALNCLIA [id number] [place] [address] [place] Comprehensive metabolic 2000 panelon 04-20-2024 Albumin [Mass/Vol] 4.2 g/dL Normal 3.9-4.9 [facility] Comment on above: Order Comment: Speci men Type: BLOOD SPECIMENOrdering Facility: [facility] Address: [address] [place] [address] Performed By: #### 2 4323-8, 99284-6, 2777-1 ####[facility]PITALNCLIA [id number] [place] [address] [place] ALP [Catalytic activity/Vol] 75 U/L Normal 34-123 [facility] Comment on above: Order Comment: Speci men Type: BLOOD SPECIMENOrdering Facility: [facility] Address: [address] [place] [address] Performed By: #### 2 4323-8, , 2776-03 ####[facility]ITALNCLIA [id number] [place] [address] [place] ALT [Catalytic activity/Vol] 24 U/L Normal 7-38 [facility] Comment on above: Order Comment: Speci men Type: BLOOD SPECIMENOrdering Facility: [facility] Address: [address] [place] [address] Performed By: #### 2 4323-8, , 2776-03 ####[facility] HOSPITALNCA [id number] [place] [address] [place] Anion gap [Moles/Vol] 8 mmol/L Normal 8-15 [facility] Comment on above: Order Comment: Speci men Type: BLOOD SPECIMENOrdering Facility: [facility] Address: [address] [place] [address] Performed By: #### 2 4323-8, , 2776-03 ####[facility]OSPITALNCA [id number] [place] [address] [place] AST [Catalytic activity/Vol] 11 U/L Low 13-35 [facility] Comment on above: Order Comment: Speci men Type: BLOOD SPECIMENOrdering Facility: [facility] Address: [address] [place] [address] Performed By: #### 2 4323-8, , 2776-03 ####[facility]PITALNCLIA [id number] [place] [address] [place] Bilirubin [Mass/Vol] 0.3 mg/dL Normal 0.2-1.3 [facility] Comment on above: Order Comment: Speci men Type: BLOOD SPECIMENOrdering Facility: [facility] Address: [address] [place] [address] Performed By: #### 2 4323-8, , 2776-03 ####[facility]ITALNCLI [id number] [place] [address] [place] Calcium [Mass/Vol] 8.8 mg/dL Normal 8.5-10.2 [facility] Comment on above: Order Comment: Speci men Type: BLOOD SPECIMENOrdering Facility: [facility] Address: [address] [place] [address] Performed By: #### 2 4323-8, , 2776-03 ####[facility] [id number] [place] [address] [place] Chloride [Moles/Vol] 109 mmol/L High 98-107 [facility] Comment on above: Order Comment: Speci men Type: BLOOD SPECIMENOrdering Facility: [facility] Address: [address] [place] [address] Performed By: #### 2 4323-8, , 2776-03 ####[facility] [id number] [place] [address] [place] CO2 [Moles/Vol] 25 mmol/L Normal 22-30 [facility] Comment on above: Order Comment: Speci men Type: BLOOD SPECIMENOrdering Facility: [facility] Address: [address] [place] [address] Performed By: #### 2 4323-8, , 2776-03 ####[facility] [id number] [place] [address] [place] Creatinine [Mass/Vol] 0.70 mg/dL Normal 0.58-0.96 [facility] Comment on above: Order Comment: Speci men Type: BLOOD SPECIMENOrdering Facility: [facility] Address: [address] [place] [address] Performed By: #### 2 4323-8, 45449-2, 2777-1 ####[facility] DEEJAYVERNERNCLIA [id number] [place] [address] [place] Creatinine and Glomerular filtration rate.predicted panel (S/P/Bld) 108 mL/min/1.73m??? Normal >=60 [facility] Comment on above: Order Comment: Kaitlin hollis Type: BLOOD SPECIMENOrdering Facility: [facility] Address: [address] [place] [address] Result Comment: Antoinette mated Glomerular Filtration Rate [...] actual GFR. Performed By: #### 2 4323-8, 10866-1, 2777-1 ####[facility]PITALNCLIA [id number] [place] [address] [place] Glucose [Mass/Vol] 97 mg/dL Normal 74-99 [facility] Comment on above: Order Comment: Kaitlin hollis Type: BLOOD SPECIMENOrdering Facility: [facility] Address: [address] [place] [address] Result Comment: The [place] Diabetes Association (ADA) provides guidance for cutoff [...] Standards of Medical Care in Diabetes 2016, [place] Diabetes Association. Diabetes Care. 2016.39(Suppl 1). Performed By: #### 2 4323-8, , 2776-03 ####[facility] AVELINO ARAUJONCJOANA [id number] [place] [address] [place] Potassium [Moles/Vol] 3.7 mmol/L Normal 3.7-5.1 [facility] Comment on above: Order Comment: Speci men Type: BLOOD SPECIMENOrdering Facility: [facility] Address: [address] [place] [address] Performed By: #### 2 4323-8, , 2776-03 ####[facility]OSPITALNCJOANA [id number] [place] [address] [place] Protein [Mass/Vol] 6.1 g/dL Low 6.3-8.0 [facility] Comment on above: Order Comment: Speci men Type: BLOOD SPECIMENOrdering Facility: [facility] Address: [address] [place] [address] Performed By: #### 2 4323-8, , 2776-03 ####[facility]OSPITALNCJOANA [id number] [place] [address] [place] Sodium [Moles/Vol] 142 mmol/L Normal 136-144 [facility] Comment on above: Order Comment: Speci men Type: BLOOD SPECIMENOrdering Facility: [facility] Address: [address] [place], [place] [address] Performed By: #### 2 4323-8, , 2776-03 ####[facility]PITALNCLIA [id number] [place] [address] [place] Urea nitrogen [Mass/Vol] 11 mg/dL Normal 7-21 [facility] Comment on above: Order Comment: Speci men Type: BLOOD SPECIMENOrdering Facility: [facility] Address: [address] [place] [address] Performed By: #### 2 4323-8, 18737-8, 2777-1 ####[facility] AVELINO HENSLEYCARYL [id number] [place] [address] [place] Ferritin SerPl-ncon 2024 Ferritin [Mass/Vol] 169.0 ng/mL Normal 14.7-205.1 [facility] Comment on above: Order Comment: Speci men Type: BLOOD SPECIMENOrdering Facility: [facility] Address: [address] [place] [address] Performed By: #### 5 0190-8, 2276-4 ####[facility] LABCLIA [id number] [place] [address] [place] Iron and Iron binding capaci ty panelon 04-20-2024 Iron [Mass/Vol] 55 ug/dL Normal 41-186 [facility] Comment on above: Order Comment: Speci men Type: BLOOD SPECIMENOrdering Facility: [facility] Address: [address] [place] [address] Performed By: #### 5 0190-8, 2275-4 ####[facility] LABCLIA [id number] [place] [address] [place] Iron binding capacity [Mass/Vol] 318 ug/dL Normal 232-386 [facility] Comment on above: Order Comment: Speci men Type: BLOOD SPECIMENOrdering Facility: [facility] Address: [address] [place] [address] Performed By: #### 5 0190-8, 2275-4 ####[facility] LABCLIA [id number] [place] [address] [place] Iron/TIBC [Molar ratio] 17.3 % Normal 15.0-57.0 [facility] Comment on above: Order Comment: Speci men Type: BLOOD SPECIMENOrdering Facility: [facility] Address: [address] [place], [place] [address] Performed By: #### 5 0190-8, 2276-4 ####[facility] LABCLIA [id number] [place] [id number] [place] Magnesium SerPl-mCncon 04-20 Magnesium [Mass/Vol] 2.0 mg/dL Normal 1.7-2.3 [facility] Comment on above: Order Comment: Speci men Type: BLOOD SPECIMENOrdering Facility: [facility] Address: [address] [place], [place] [address] Performed By: #### 2 4323-8, 62890-7, 2777-1 ####[facility] HOSPITALNCA [id number] [place] [address] [place] Phosphate SerPl-mCncon 04-20 Phosphate [Mass/Vol] 2.9 mg/dL Normal 2.7-4.8 [facility] Comment on above: Order Comment: Speci men Type: BLOOD SPECIMENOrdering Facility: [facility] Address: [address] [place] [address] Performed By: #### 2 4323-8, 63284-1, 2777-1 ####[facility]PITALNCLIA [id number] [place] [address] [place] Mix House Tender Office Visit Reporton 02-24-2024 Mix House Tender Office Visit Report [facility] [address], [address] [place] [address] OFFICE VISIT Date of Service: 02/24/24 MR#: [id number] Acct: [id number] Name: LIBIA OLIVAS FRIDA Rep #: [id number] : 1975 Provider: Dr. 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 Date Name GA/Weeks Outcome Route Bth Weight Infant Gen Labor Lgth Anesthesia Del Locatn Provider FOB Unknown 1995 Ciaran Unknown summer Unknown 2003 [place] HPI Encounter for routine gynecological examination Details: LIBIA OLIVAS is a 49 year old who presents for annual exam. Last PAP: partial hyst History of abnormal PAP: Last mammogram: 01/09/2024 History of abnormal mammogram: Colon cancer screening: colonoscopy in December - , due in 10 years Other preventative health care screenings: PCP is Dr. Calle - labs have been getting done through [...] acute distress, well developed and well groomed HENMT Head: normal to inspection and normocephalic Ears: hearing grossly normal bilaterally and external ea (more content not included)... Normal [facility] CBC W Auto Differential pane l (Bld)on 01-30-2024 Basophils (Bld) [#/Vol] 0.07 10*3/uL Normal <0.11 [facility] Comment on above: Order Comment: Speci men Type: BLOOD SPECIMEN [facility] Address: [address] [place] [address] Performed By: #### 5 7021-8 #### [facility] CLIA [id number] [address] [place] [address] [place] Basophils/100 WBC (Bld) 0.8 % Normal [facility] Comment on above: Order Comment: Speci men Type: BLOOD SPECIMEN [facility] Address: [address] [place] [address] Performed By: #### 5 7021-8 #### [facility] CLIA [id number] [address] [place] [address] [place] Differential cell count method Nom (Bld) Auto Normal [facility] Comment on above: Order Comment: Speci men Type: BLOOD SPECIMEN [facility] Address: [address] [place] [address] Performed By: #### 5 7021-8 #### [facility] CLIA [id number] [address] [place] [address] [place] Eosinophils (Bld) [#/Vol] 0.27 10*3/uL Normal <0.46 [facility] Comment on above: Order Comment: Speci men Type: BLOOD SPECIMEN [facility] Address: [address] [place] [address] Performed By: #### 5 7021-8 #### [facility] CLIA [id number] [address] [place] [address] [place] Eosinophils/100 WBC (Bld) 2.9 % Normal [facility] Comment on above: Order Comment: Speci men Type: BLOOD SPECIMEN [facility] Address: [address] [place] [address] Performed By: #### 5 7021-8 #### [facility] CLIA [id number] [address] [place] [address] [place] Erythrocyte distribution width (RBC) [Ratio] 14.2 % Normal 11.5-15.0 [facility] Comment on above: Order Comment: Speci men Type: BLOOD SPECIMEN [facility] Address: [address] [place] [address] Performed By: #### 5 7021-8 #### [facility] CLIA [id number] [address] [place] [address] [place] Hematocrit (Bld) [Volume fraction] 37.7 % Normal 36.0-46.0 [facility] Comment on above: Order Comment: Speci men Type: BLOOD SPECIMEN [facility] Address: [address] [place] [address] Performed By: #### 5 7021-8 #### [facility] CLIA [id number] [address] [place] [address] [place] Hemoglobin (Bld) [Mass/Vol] 12.3 g/dL Normal 11.5-15.5 [facility] Comment on above: Order Comment: Speci men Type: BLOOD SPECIMEN [facility] Address: [address] [place] [address] Performed By: #### 5 7021-8 #### [facility] CLIA [id number] [address] [place] [address] [place] Immature granulocytes (Bld) [#/Vol] 0.04 10*3/uL Normal <0.10 [facility] Comment on above: Order Comment: Speci men Type: BLOOD SPECIMEN [facility] Address: [address] [place] [address] Performed By: #### 5 7021-8 #### [facility] CLIA [id number] [address] [place] [address] [place] Immature granulocytes/100 WBC (Bld) 0.4 % Normal [facility] Comment on above: Order Comment: Speci men Type: BLOOD SPECIMEN [facility] Address: [address] [place] [address] Performed By: #### 5 7021-8 #### [facility] CLIA [id number] [address] [place] [address] [place] Lymphocytes (Bld) [#/Vol] 1.54 10*3/uL Normal 1.00-4.00 [facility] Comment on above: Order Comment: Speci men Type: BLOOD SPECIMEN [facility] Address: [address] [place] [address] Performed By: #### 5 7021-8 #### [facility] [id number] [address] [place] [address] [place] Lymphocytes/100 WBC (Bld) 16.7 % Normal [facility] Comment on above: Order Comment: Speci men Type: BLOOD SPECIMEN [facility] Address: [address] [place] [address] Performed By: #### 5 7021-8 #### [facility] [id number] [address] [place] [address] [place] MCH (RBC) [Entitic mass] 27.3 pg Normal 26.0-34.0 [facility] Comment on above: Order Comment: Speci men Type: BLOOD SPECIMEN [facility] Address: [address] [place] [place] [address] Performed By: #### 5 7021-8 #### [facility] [id number] [address] [place] [address] [place] MCHC (RBC) [Mass/Vol] 32.6 g/dL Normal 30.5-36.0 [facility] Comment on above: Order Comment: Speci men Type: BLOOD SPECIMEN [facility] Address: [address] [place] [address] Performed By: #### 5 7021-8 #### [facility] CLIA [id number] [address] [place] [address] [place] MCV (RBC) [Entitic vol] 83.6 fL Normal 80.0-100.0 [facility] Comment on above: Order Comment: Speci men Type: BLOOD SPECIMEN [facility] Address: [address] [place] [address] Performed By: #### 5 7021-8 #### [facility] CLIA [id number] [address] [place] [address] [place] Monocytes (Bld) [#/Vol] 0.49 10*3/uL Normal <0.87 [facility] Comment on above: Order Comment: Speci men Type: BLOOD SPECIMEN [facility] Address: [address] [place] [address] Performed By: #### 5 7021-8 #### [facility] CLIA [id number] [address] [place] [address] [place] Monocytes/100 WBC (Bld) 5.3 % Normal [facility] Comment on above: Order Comment: Speci men Type: BLOOD SPECIMEN [facility] Address: [address] [place] [address] Performed By: #### 5 7021-8 #### [facility] CLIA [id number] [address] [place] [address] [place] Neutrophils (Bld) [#/Vol] 6.83 10*3/uL Normal 1.45-7.50 [facility] Comment on above: Order Comment: Speci men Type: BLOOD SPECIMEN [facility] Address: [address] [place] [address] Performed By: #### 5 7021-8 #### [facility] CLIA [id number] [address] [place] [address] [place] Neutrophils/100 WBC (Bld) 73.9 % Normal [facility] Comment on above: Order Comment: Speci men Type: BLOOD SPECIMEN Ordering Facility: [facility] Address: [address] [place] [address] Performed By: #### 5 7021-8 #### [facility] CLIA [id number] [address] [place] [address] [place] Nucleated RBC (Bld) [#/Vol] 10*3/uL Normal <0.01 [facility] Comment on above: Order Comment: Speci men Type: BLOOD SPECIMEN Ordering Facility: [facility] Address: [address] [place] [address] Performed By: #### 5 7021-8 #### [facility] CLIA [id number] [address] [place] [address] [place] Nucleated RBC/100 WBC (Bld) [Ratio] 0.0 /100 WBC Normal [facility] Comment on above: Order Comment: Speci men Type: BLOOD SPECIMEN [facility]ing Facility[facility] Address: [address] [place] [address] Performed By: #### 5 7021-8 #### [facility] CLIA [id number] [address] [place] [address] [place] Platelet mean volume (Bld) [Entitic vol] 10.3 fL Normal 9.0-12.7 [facility] Comment on above: Order Comment: Speci men Type: BLOOD SPECIMEN Ordering Facility: [facility] Address: [address] [place] [address] Performed By: #### 5 7021-8 #### [facility] CLIA [id number] [address] [place] [address] [place] Platelets (Bld) [#/Vol] 236 10*3/uL Normal 150-400 [facility] Comment on above: Order Comment: Speci men Type: BLOOD SPECIMEN Ordering Facility: [facility] Address: [address] [place] [address] Performed By: #### 5 7021-8 #### [facility] CLIA [id number] [address] [place] [address] [place] RBC (Bld) [#/Vol] 4.51 10*6/uL Normal 3.90-5.20 [facility] Comment on above: Order Comment: Speci men Type: BLOOD SPECIMEN [facility]ing [facility] Address: [address] [place] [address] Performed By: #### 5 7021-8 #### [facility] CLIA [id number] [address] [place] [address] [place] WBC (Bld) [#/Vol] 9.24 10*3/uL Normal 3.70-11.00 [facility] Comment on above: Order Comment: Speci men Type: BLOOD SPECIMEN [facility] Address: [address] [place] [address] Performed By: #### 5 7021-8 #### [id number] [address] [place] [address] [place] CNOVSPon 01-30-2024 CNOVSP Visit (SP) Office (H EMAWS) -- LIBIA OLIVAS ([id number]) 1975 F Date Time Provider Department 01/30/24 8:00 AM DEVIKA BRUSH During your visit today, we recorded the following information about you: Temperature Pulse Blood pressure Weight 97.5 degrees 99/minute 126/82 106.5 kg 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 Hgb and platelets normal. Recheck at [facility] 07/21/2022 revealed total white count 131.8 thousand. [...] Lymph 1.00 - 4.00 k/uL 1.59 1.54 Boyle% % 5.5 5.3 Abs Boyle <0.87 k/uL 0.52 0.49 Eosin% % 1.6 [...] of 10/29 (more content not included)... Normal [facility] Comprehensive metabolic 2000 panelon 01-30-2024 Albumin [Mass/Vol] 4.1 g/dL Normal 3.9-4.9 [facility] Comment on above: Order Comment: Speci men Type: BLOOD SPECIMENOrdering Facility: [facility] Address: [address] [place] [address] Performed By: #### 2 4323-8 ####[facility] [id number] [place] [address] [place] ALP [Catalytic activity/Vol] 89 U/L Normal 34-123 [facility] Comment on above: Order Comment: Speci men Type: BLOOD SPECIMENOrdering Facility: [facility] Address: [address] [place] [address] Performed By: #### 2 4323-8 ####[facility] DEEJAYMandyNCLIA [id number] [place] [address] [place] ALT [Catalytic activity/Vol] 25 U/L Normal 7-38 [facility] Comment on above: Order Comment: Speci men Type: BLOOD SPECIMENOrdering Facility: [facility] Address: [address] [place] [address] Performed By: #### 2 4323-8 ####[facility] [id number] [place] [address] [place] Anion gap [Moles/Vol] 10 mmol/L Normal 8-15 [facility] Comment on above: Order Comment: Speci men Type: BLOOD SPECIMENOrdering Facility: [facility] Address: [address] [place] [address] Performed By: #### 2 4323-8 ####[facility]ITAL[facility]CL[facility] [id number] [place] [address] [place] AST [Catalytic activity/Vol] 11 U/L Low 13-35 [facility] Comment on above: Order Comment: Speci men Type: BLOOD SPECIMENOrdering Facility: [facility] Address: [address] [place] [address] Performed By: #### 2 4323-8 ####[facility]ITAL[facility]CL[facility] [id number] [place] [address] [place] Bilirubin [Mass/Vol] 0.4 mg/dL Normal 0.2-1.3 [facility] Comment on above: Order Comment: Speci men Type: BLOOD SPECIMENOrdering Facility: [facility] Address: [address] [place] [address] Performed By: #### 2 4323-8 ####[facility] MILLTOWNCLIA [id number] [place] [address] [place] Calcium [Mass/Vol] 9.3 mg/dL Normal 8.5-10.2 [facility] Comment on above: Order Comment: Speci men Type: BLOOD SPECIMENOrdering Facility: [facility] Address: [address] [place] [address] Performed By: #### 2 4323-8 ####[facility] MILLTOWNCLIA [id number] [place] [address] [place] Chloride [Moles/Vol] 105 mmol/L Normal 98-107 [facility] Comment on above: Order Comment: Speci men Type: BLOOD SPECIMENOrdering Facility: [facility] Address: [address] [place] [address] Performed By: #### 2 4323-8 ####[facility]ACHWOODLIA [id number] [place] [address] [place] CO2 [Moles/Vol] 21 mmol/L Low 22-30 [facility] Comment on above: Order Comment: Speci men Type: BLOOD SPECIMENOrdering Facility: [facility] Address: [address] [place] [address] Performed By: #### 2 4323-8 ####[facility] H[facility]PITALWMNLIA [id number] [place] [address] [place] Creatinine [Mass/Vol] 0.75 mg/dL Normal 0.58-0.96 [facility] Comment on above: Order Comment: Speci men Type: BLOOD SPECIMENOrdering Facility: [facility] Address: [address] [place] [address] Performed By: #### 2 4323-8 ####[facility]ITAL[facility]CLIA [id number] [place] [address] [place] Creatinine and Glomerular filtration rate.predicted panel (S/P/Bld) 99 mL/min/1.73m??? Normal >=60 [facility] Comment on above: Order Comment: Kaitlin shafer Type: BLOOD SPECIMENOrdering Facility: [facility] Address: [address] [place] [address] Result Comment: Antoinette mated Glomerular Filtration Rate [...] actual GFR. Performed By: #### 2 4323-8 ####[facility] [id number] [place] [address] [place] Glucose [Mass/Vol] 142 mg/dL High 74-99 [facility] Comment on above: Order Comment: Kaitlin shafer Type: BLOOD SPECIMENOrdering Facility: [facility] Address: [address] [place] [address] Result Comment: The [place] Diabetes Association (ADA) provides guidance for cutoff [...] Standards of Medical Care in Diabetes 2016, [place] Diabetes Association. Diabetes Care. 2016.39(Suppl 1). Performed By: #### 2 4323-8 ####[facility] [id number] [place] [address] [place] Potassium [Moles/Vol] 3.8 mmol/L Normal 3.7-5.1 [facility] Comment on above: Order Comment: Speci men Type: BLOOD SPECIMENOrdering Facility: [facility] Address: [address] [place], [place] [address] Performed By: #### 2 4323-8 ####[facility] SHELLIEWNCLIA [id number] [place] [address] [place] Protein [Mass/Vol] 6.2 g/dL Low 6.3-8.0 [facility] Comment on above: Order Comment: Speci men Type: BLOOD SPECIMENOrdering Facility: [facility] Address: [address] [place] [address] Performed By: #### 2 4323-8 ####[facility]ITAL[facility]CLIA [id number] [place] [address] [place] Sodium [Moles/Vol] 136 mmol/L Normal 136-144 [facility] Comment on above: Order Comment: Speci men Type: BLOOD SPECIMENOrdering Facility: [facility] Address: [address] [place] [address] Performed By: #### 2 4323-8 ####[facility] DEEJAYVERNERNCLIA [id number] [place] [address] [place] Urea nitrogen [Mass/Vol] 14 mg/dL Normal 7-21 [facility] Comment on above: Order Comment: Speci men Type: BLOOD SPECIMENOrdering Facility: [facility] Address: [address] [place] [address] Performed By: #### 2 4323-8 ####[facility]ITALNCLIA [id number] [place] [address] [place] SCRN MAMM (CAD)W/MI BILATo n 01-09-2024 SCRN MAMM (CAD)W/MI BILAT [facility] [address] [address] SCRN MAMM (CAD)W/MI BILAT MR#: [id number] Acct: [id number] Name: LIBIA OLIVAS FRIDA Rep #: [id number] : 1975 F 48 From: Chau Martinez MD PCP: Dr. Krystina Calle DO Status: REG CLI Study: SCRN MAMM (CAD)W/MI BILAT Date of Exam: 12/23 10/15 Exam# [id number] Ordering Dr: Krystina Calle DO [id number] MAMMOGRAPHY - BILATERAL SCREENING 3-D TOMOSYNTHESIS REASON [...] EDT , CC: Dr. Krystina Calle DO Scaffold Setter: Signed Normal [facility] COVID & INFLUENZA A/B & RSV NAAT, ROUTINEon 06-11-2023 FLUAV RNA ABBIE+probe Ql (Unsp spec) Detected Abnormal Not Detected [facility] FLUBV RNA ABBIE+probe Ql (Unsp spec) Not detected Not Detected [facility] RSV A RNA ABBIE+probe Ql (Unsp spec) Not detected Not Detected [facility] SARS-CoV-2 (COVID-19) RNA ABBIE+probe Ql (Resp) Not detected See comment [facility] No Panel Informationon 04-26 [facility] FERRITIN [facility] 10-23-2022 Ferritin [Mass/Vol] 109.0 ng/mL 14.7 - 205.1 ng/mL [facility] Iron and Iron binding capaci ty panelon 10-23-2022 Iron [Mass/Vol] 39 ug/dL Low 41 - 186 ug/dL [facility] Iron binding capacity [Mass/Vol] 325 ug/dL 232 - 386 ug/dL [facility] Iron/TIBC [Molar ratio] 12.0 % Low 15.0 - 57.0 % [facility] LIPASE [facility] 10-23-2022 Lipase [Catalytic activity/Vol] 38 U/L 16 - 61 U/L [facility] T4 FREE/FREE THYROXon 2022 Free T4 [Mass/Vol] 1.4 ng/dL 0.9 - 1.7 ng/dL [facility] TSH [facility] 10-23-2022 TSH Qn 0.762 m[IU]/L 0.270 - 4.200 mIU/L [facility] MAGNESIUM BLDon 10-22-2022 Magnesium [Mass/Vol] 2.2 mg/dL 1.7 - 2 .3 mg/dL [facility] PHOSPHORUS INORGANICon 10-22 Phosphate [Mass/Vol] 3.6 mg/dL 2.7 - 4 .8 mg/dL [facility] XR CHEST 2V FRONTAL/LATon [facility] XR CHEST 2V FRONTAL/LATon [facility] XR Chest PA and Lateralon IMPRESSION: Within normal limits. No acute radiographic abnormality. Scaffold Setter: PSCB Transcribe Date/Time: Aug 27 2022 5:37P Dictated by : LEN BONNER MD This examination was interpreted and the report reviewed and electronically signed by: LEN BONNER MD on Aug 27 2022 5:37PM [facility] DIVISION OF RADIOLOGY * * *Final [...] the thoracic spine. DIVISION OF RADIOLOGY Provider, [facility] - 08/27/2022 * * *Final Report* [...] Within normal limits. No acute radiographic abnormality. Scaffold Setter: PSCB Transcribe Date/Time: Aug 27 2022 5:37P Dictated by : LEN BONNER MD This examination was interpreted and the report reviewed and electronically signed by: LEN BONNER MD on Aug 27 2022 5:37PM EST [facility] Radiology Study observation (narrative) [facility] XR Chest PA and LateralOrder ed By: Ccf Provider on 08-27-2022 [facility] BONE MARROW ANALYSISon 07-27 Case Report Bone Marrow Patholog y Report Case: [id number] Authorizing Provider: Fabiano Liz DO Collected: 07/25/2022 12:40 PM Ordering Location: Hematology/Oncology Received: 07/25/2022 02:43 PM Pathologist: Flora Rosas MD Specimens: A) - BONE MARROW ASPIRATE RIGHT POSTERIOR ILIAC CREST B) - BONE MARROW BIOPSY RIGHT POSTERIOR ILIAC CREST C) - BONE MARROW CLOT RIGHT POSTERIOR ILIAC CREST [facility] Diagnosis Comment The patient is a 47-year-old [...] pending cytogenetic and molecular studies is recommended. [facility] FINAL DIAGNOSIS A-C. Bone marrow, as pirate smear, touch imprint and core biopsy, with clot section: - Chronic myeloid leukemia. - Stainable iron is decreased. - See comment. / July 27, 2022 [facility] Gross Description A. BONE MARROW ASPIR ATE [...] in one cassette. Gross examination performed at [facility], [address] [place] [address] FFS 07/25/2022 7:59 PM [facility] Microscopic Description PERIPHERAL BLOOD: CBC (07/25/2022 11:07 AM) Diff: Manual WBC 134.09 k/uL Neutrophils % 63 Hemoglobin 11.9 g/dL Lymphocytes % 5 MCV 89.3 fL Monocytes % 6 RDW-CV 17.2 % Eosinophils % 0 Platelet Count 220 k/uL Basophils % 1 Other: 10% [place], 14% Myelo, 1% Blasts Morphology/Interpretation: A peripheral [...] cytometry: Performed. See associated flow cytometry report [id number]. Cytogenetics: Pending. FISH: Not performed. Molecular: Buffy coat stored. BCR::ABL1 quantitative PCR studies performed on the peripheral blood were positive, detecting high levels of BCR::ABL1 p210 fusion transcripts. [facility] Performing Lab Diagnostic interpret ation performed at [facility], [address] [place] [address] CLIA# [id number] Top Inventory Control Executive: Jesus Sands M.D. [facility] FLOW CYTOMETRY BONE MARROW R EFLEXon 07-27-2022 Case Report Flow Cytometry Case: [id number] Authorizing Provider: Fabiano Liz DO Collected: 07/25/2022 01:17 PM Ordering Location: Hematology/Oncology Received: 07/26/2022 09:23 AM Pathologist: Flora Rosas MD Specimen: Bone Marrow [facility] Diagnosis Comment This assay is not de signed to detect minimal residual disease, plasma cell neoplasms, or myeloid antigen maturational patterns. This test was developed and its performance characteristics determined by [facility]'s Ezra JBriseyda [facility] Pathology [facility] [place] ([facility]). It has not been cleared or approved by the FDA. [facility] is regulated under CLIA as qualified to perform high-complexity testing. This test is used for clinical purposes. It should not be regarded as investigational or for research. [facility] Gross Description A. Bone Marrow Received 8 mL bone marrow in sodium heparin. [facility] Interpretation There is no evidence of involvement by a lymphoproliferative disorder or abnormal blast population. There is a notable granulocytic predominance. Correlation with the clinical and bone marrow histopathologic findings is suggested. [facility] Performing Lab Diagnostic interpret ation performed at [facility], [address] [place], [place] [address] CLIA# [id number] Top Inventory Control Executive: Jesus Sands M.D. [facility] Results Specimen type: Bone marrow aspirate Morphology comments: See associated bone marrow pathology report [id number]. Viability: 89% Flow Cytometry Bone Marrow Immunophenotyping [...] events. Blasts are not increased. SB/NZ 07/26/2022 [facility] FLOW CYTOMETRY BONE MARROW H OLD (BMHOLD)on 07-26-2022 Flow Cytometry Order Status See Results in chart under F case ID [facility] ACTIVATED PTTon 07-23-2022 aPTT Coag (PPP) [Time] 24.8 s 23.0 - 32.4 sec [facility] Comprehensive metabolic 2000 panelon 07-23-2022 Albumin [Mass/Vol] 4.7 g/dL 3.9 - 4.9 g/dL [facility] ALP [Catalytic activity/Vol] 92 U/L 34 - 123 U/L [facility] ALT [Catalytic activity/Vol] 38 U/L 7 - 38 U/L [facility] Anion gap [Moles/Vol] 13 mmol/L 9 - 18 mmol/L [facility] AST [Catalytic activity/Vol] 25 U/L 13 - 35 U/L [facility] Bilirubin [Mass/Vol] 0.4 mg/dL 0.2 - 1 .3 mg/dL [facility] Calcium [Mass/Vol] 9.1 mg/dL 8.5 - 10. 2 mg/dL [facility] Chloride [Moles/Vol] 105 mmol/L 97 - 10 5 mmol/L [facility] CO2 [Moles/Vol] 22 mmol/L 22 - 30 mmol/L [facility] Creatinine [Mass/Vol] 0.76 mg/dL 0.58 - 0.96 mg/dL [facility] Estimated Glomerular Filtration Rate 99 mL/min/1.73m >=60 mL/min/1.73 m [facility] Glucose [Mass/Vol] 92 mg/dL 74 - 99 mg/dL [facility] Potassium [Moles/Vol] 3.4 mmol/L Low 3.7 - 5.1 mmol/L [facility] Protein [Mass/Vol] 6.9 g/dL 6.3 - 8.0 g/dL [facility] Sodium [Moles/Vol] 140 mmol/L 136 - 144 mmol/L [facility] Urea nitrogen [Mass/Vol] 12 mg/dL 7 - 21 mg/dL [facility] LD LACTATE DEHYDROon 023 LDH [Catalytic activity/Vol] 771 U/L High 135 - 214 U/L [facility] PT panel Coag (PPP)on 2022 INR Coag (PPP) [Relative time] 1.0 {INR} 0.9 - 1.3 [facility] PT Coag (PPP) [Time] 10.0 s <13.1 sec [facility] RETIC COUNTon 07-23-2022 Reticulocytes (Bld) [#/Vol] 0.23038 10*3/uL High 0.018 - 0.100 M/uL [facility] Reticulocytes (Bld) [#/Vol]o n 07-23-2022 Reticulocytes/100 RBC (Bld) 3.4 % High 0.4 - 2.0 % [facility] URIC ACID BLOODon 07-23-2022 Urate [Mass/Vol] 8.7 mg/dL High 2.5 - 6.6 mg/dL [facility] Absolute lymphocyte countOrd ered By: Dr. Calle on 07-21-2022 Lymphocytes Auto (Unsp spec) [#/Vol] 7.91 10*3/uL 0.83-4.51 [facility] Basophil percentageOrdered B y: Dr. Calle on 07-21-2022 Basophil percentage Not Reportable [facility] Cholesterol [Mass/Vol] 141 mg/dL <200 [facility] Comment on above: <200 mg/dL Desirable 200-240 mg/dL Borderline >240 mg/dL High Risk Neutrophils (Bld) [#/Vol] 90.9 10*3/uL 2.0-7.7 [facility] Triglyceride [Mass/Vol] 300 mg/dL <199 [facility] Comment on above: The drugs N-Acetylcy steine and Metamizole may falsely depress this assay.Serum Triglycerides Reference Interval Normal <150 mg/dL Borderline high 150 - 199 mg/dL High 200 - 499 mg/dL Very High > or = 500 mg/dL WBC (Bld) [#/Vol] 131.8 10*3/uL 4.4-11.0 [facility] Comment on above: CRITICAL VALUE VERIF IED. CALLED TO DR. CALLE07/21/22 0922 Yanely Duran.RESULTS READ BACK BY SAME . Blood band neutrophil count as percentage of total leukocytesOrdered By: Dr. Calle on 07-21-2022 Band form neutrophils/100 WBC (Bld) 15 % 0-5 [facility] Blood blasts/100 leukocytesO rdered By: Dr. Calle on 07-21-2022 Blasts/100 WBC (Bld) 6 % 0-0 [facility] Comment on above: RESULTS CALLED TO DR Briseyda CALLE 07/21/22 1042 Yanely Duran.REPORT READ BACK BY [].Previous reported result: 6 %Edited by: OSCAR on 07/21/22:1046 AMENDED REPORT 07/21/22 1046 BLAST previously reported as: 6 *H % Blood eosinophils/100 leukoc ytesOrdered By: Dr. Calle on 07-21-2022 Eosinophils/100 WBC (Bld) 3 % 0-5 [facility] Blood erythrocytes count (nu mber/volume)Ordered By: Dr. Calle on 07-21-2022 RBC (Bld) [#/Vol] 4.25 10*6/uL 4.2-5.4 [facility] Blood hemoglobin measurement (mass/volume)Ordered By: Dr. Calle on 07-21-2022 Hemoglobin (Bld) [Mass/Vol] 12.3 g/dL 12.0-15.0 [facility] Blood lymphocytes/100 leukoc ytesOrdered By: Dr. Calle on 07-21-2022 Lymphocytes/100 WBC (Bld) 6 % 19-41 [facility] Blood metamyelocytes/100 nancy kocytesOrdered By: Dr. Calle on 07-21-2022 Metamyelocytes/100 WBC (Bld) 6 % 0-1 [facility] Blood monocytes/100 leukocyt esOrdered By: Dr. Calle on 07-21-2022 Monocytes/100 WBC (Bld) 2 % 0-10 [facility] Blood platelet adequacy dete ction by light microscopyOrdered By: Dr. Calle on 07-21-2022 Platelets LM Ql (Bld) ADEQUATE ADEQ [facility] Blood platelet mean volumeOr dered By: Dr. Calle on 07-21-2022 Platelet mean volume (Bld) [Entitic vol] 10.2 fL 6.2-12.0 [facility] Blood promyelocytes/100 leuk ocytesOrdered By: Dr. Calle on 07-21-2022 Promyelocytes/100 WBC (Bld) 3 % 0-0 [facility] Blood segmented neutrophils/ [address]: [address] Calle on 07-21-2022 Segmented neutrophils/100 WBC (Bld) 54 % 47-70 [facility] Determination of erythrocyte mean corpuscular volume (MCV)Ordered By: Dr. Calle on 07-21-2022 MCV (RBC) [Entitic vol] 92.9 fL 81-99 [facility] Hematocrit Auto (Bld) [Volum e fraction]Ordered By: Dr. Calle on 07-21-2022 Hematocrit (Bld) [Volume fraction] 39.5 % 37-47 [facility] Laboratory - Hematology and Cell countsOrdered By: Dr. Calle on 07-21-2022 Erythrocyte distribution width (RBC) [Entitic vol] 59.3 fL 35.1-43.9 [facility] Erythrocyte distribution width (RBC) [Ratio] 17.4 % 11.6-14.6 [facility] MCH (RBC) [Entitic mass] 28.9 pg 27.0-32.0 [facility] Myelocytes/100 WBC (Bld) 5 % 0-0 [facility] MCHC Auto (RBC) [Mass/Vol]Or dered By: Dr. Calle on 07-21-2022 MCHC (RBC) [Mass/Vol] 31.1 g/dL 32-36 [facility] Platelets bldOrdered By: Dr. Calle on 07-21-2022 Platelets (Bld) [#/Vol] 211 10*3/uL 150-450 [facility] RBC morphologyOrdered By: Dr Briseyda Calle on 07-21-2022 RBC morphology finding Nom (Bld) NORM C+C NORMAL NORM C&C [facility] Review by pathologistOrdered By: Dr. Calle on 07-21-2022 Pathologist review Martinez (Unsp spec) [Interp] Reviewed [facility] Comment on above: Previous reported re sult: Gayle jefferson Edited by: [email or web address] on 07/24/22:0955Neutrophilic leukemoid reaction with left shift. [...] Cholesterol in HDL [Mass/Vol] 24 mg/dL >40 [facility] Comment on above: The drugs N-Acetylcy steine and Metamizole may falsely depress this assay. Reference Range HDL <40 mg/dL Low HDL Cholesterol HDL >or= 60 mg/dL High HDL Cholesterol Serum or plasma cholesterol in VLDL measurement (mass/volume)Ordered By: Dr. Calle on 07-21-2022 Cholesterol in VLDL [Mass/Vol] 60 mg/dL 5-40 [facility] Serum or plasma low density lipoprotein (LDL) cholesterol measurement (mass/volume)Ordered By: Dr. Calle on 07-21-2022 Cholesterol in LDL [Mass/Vol] 57 mg/dL 0-130 [facility] Total cell countOrdered By: Dr. Calle on 07-21-2022 Cells counted Molgen (Bld/Tiss) [#] 100 MANUAL DIFF [facility] Basophil percentageOrdered B y: Dr. Mckeon on 06-16-2022 Cholesterol [Mass/Vol] 151 mg/dL <200 [facility] Comment on above: <200 mg/dL Desirable 200-240 mg/dL Borderline >240 mg/dL High Risk Glucose [Mass/Vol] 108 mg/dL 74-106 [facility] Comment on above: Fasting Glucose resu lt from 100 to 125 mg/dL suggests IMPAIRED HOMEOSTASIS per A.D.A. criteria. Triglyceride [Mass/Vol] 351 mg/dL <199 [facility] Comment on above: The drugs N-Acetylcy steine and Metamizole may falsely depress this assay.Serum Triglycerides Reference Interval Normal <150 mg/dL Borderline high 150 - 199 mg/dL High 200 - 499 mg/dL Very High > or = 500 mg/dL Serum or plasma calcitriol m easurement (mass/volume)Ordered By: Dr. Mckeon on 06-16-2022 1,25-dihydroxyvitamin D3 [Mass/Vol] 43.8 pg/mL 24.8-81.5 [facility] Comment on above: Performed at: - [address] [id number] Director: Anette Johnson MD, Phone: [phone] Serum or plasma cholesterol in HDL measurement (mass/volume)Ordered By: Dr. Mckeon on 06-16-2022 Cholesterol in HDL [Mass/Vol] 23 mg/dL >40 [facility] Comment on above: The drugs N-Acetylcy steine and Metamizole may falsely depress this assay. Reference Range HDL <40 mg/dL Low HDL Cholesterol HDL >or= 60 mg/dL High HDL Cholesterol Serum or plasma cholesterol in VLDL measurement (mass/volume)Ordered By: Dr. Mckeon on 06-16-2022 Cholesterol in VLDL [Mass/Vol] 70 mg/dL 5-40 [facility] Serum or plasma low density lipoprotein (LDL) cholesterol measurement (mass/volume)Ordered By: Dr. Mckeon on 06-16-2022 Cholesterol in LDL [Mass/Vol] 58 mg/dL 0-130 [facility] Whole blood hemoglobin A1c/t otal hemoglobin ratio (mass fraction)Ordered By: Dr. Mckeon on 06-16-2022 HbA1c (Bld) [Mass fraction] 5.3 % 3.8-5.6 [facility] Comment on above: Normal < 5.7 % Predi abetic 5.7 - 6.4 % Diabetic >or= 6.5 % Please note range changes. Laboratory - Chemistry and C hemistry - challengeOrdered By: Dr. Mckeon on 03-01-2022 Free T4 [Mass/Vol] 1.20 ng/dL 0.76-1.46 [facility] No Panel InformationOrdered By: Dr. Mckeon on 03-01-2022 Free Triiodothyronine (T3) pg/dL 2.6 pg/mL 2.18-3.98 [facility] Thyroid Stimulating Hormone (TSH) 0.59 uIU/mL 0.358-3.74 [facility] Varicella-Zoster V Ab, IgGon 01-02-2022 Varicella-Zoster V Ab, IgG Assay performed using Diasorin CLIA methodology. VARICELLA ZOSTER IGG: Immune Testing Performed At: [facility] [address] [place] [address] [facility] Comment on above: Performed By: #### V ARG #### [facility] (DEFAULT) [address] [place] [address] Absolute lymphocyte counton 07-21-2021 Lymphocytes Auto (Unsp spec) [#/Vol] 1.49 10*3/uL 0.83-4.51 [facility] Work Phone: Basophil percentageon 2021 Basophils/100 WBC (Bld) 0.5 % 0-1 [facility] Work Phone: Bilirubin [Mass/Vol] 0.40 mg/dL 0.20-1.00 [facility] Work Phone: Comment on above: For patients on eltr ombopag therapy, use of Dimension Ulysses TBIL is not recommended. Chloride [Moles/Vol] 112 mmol/L 98-107 [facility] Work Phone: Eosinophils/100 WBC (Bld) 1.9 % 0-5 [facility] Work Phone: Glucose [Mass/Vol] 126 mg/dL 74-106 [facility] Work Phone: Comment on above: Fasting Glucose resu lt greater than or equal to 126 mg/dL suggests DIABETES MELLITUS per A.D.A. criteria. Neutrophils (Bld) [#/Vol] 5.3 10*3/uL 2.0-7.7 [facility] Work Phone: Neutrophils/100 WBC (Bld) 70.3 % 47-70 [facility] Work Phone: Potassium [Moles/Vol] 3.7 mmol/L 3.5-5.1 [facility] Work Phone: Protein [Mass/Vol] 7.0 g/dL 6.4-8.2 [facility] Work Phone: Sodium [Moles/Vol] 141 mmol/L 136-145 [facility] Work Phone: WBC (Bld) [#/Vol] 7.5 10*3/uL 4.4-11.0 [facility] Work Phone: Blood erythrocytes count (nu mber/volume)on 07-21-2021 RBC (Bld) [#/Vol] 5.06 10*6/uL 4.2-5.4 [facility] Work Phone: Blood hemoglobin measurement (mass/volume)on 07-21-2021 Hemoglobin (Bld) [Mass/Vol] 13.7 g/dL 12.0-15.0 [facility] Work Phone: Blood lymphocytes/100 leukoc yteson 07-21-2021 Lymphocytes/100 WBC (Bld) 19.9 % 19-41 [facility] Work Phone: Blood monocytes/100 leukocyt eson 07-21-2021 Monocytes/100 WBC (Bld) 6.7 % 0-10 [facility] Work Phone: Blood platelet mean volumeon 07-21-2021 Platelet mean volume (Bld) [Entitic vol] 10.2 fL 6.2-12.0 [facility] Work Phone: Determination of erythrocyte mean corpuscular volume (MCV)on 07-21-2021 MCV (RBC) [Entitic vol] 83.2 fL 81-99 [facility] Work Phone: Hematocrit Auto (Bld) [Volum e fraction]on 07-21-2021 Hematocrit (Bld) [Volume fraction] 42.1 % 37-47 [facility] Work Phone: Laboratory - Chemistry and C hemistry - challengeon 07-21-2021 ALP [Catalytic activity/Vol] 84 U/L 45-117 [facility] Work Phone: ALT [Catalytic activity/Vol] 56 U/L 13-56 [facility] Work Phone: CO2 [Moles/Vol] 24.0 mmol/L 21.0-32.0 [facility] Work Phone: Free T4 [Mass/Vol] 1.01 ng/dL 0.76-1.46 [facility] Work Phone: Globulin (S) [Mass/Vol] 3.6 g/dL 2.2-4.2 [facility] Work Phone: Urea nitrogen/Creatinine [Mass ratio] 17.6 mg/mg 10-20 [facility] Work Phone: Laboratory - Hematology and Cell countson 07-21-2021 Erythrocyte distribution width (RBC) [Entitic vol] 40.0 fL 35.1-43.9 [facility] Work Phone: Erythrocyte distribution width (RBC) [Ratio] 13.2 % 11.6-14.6 [facility] Work Phone: Immature granulocytes/100 WBC (Bld) 0.700 % 0.0-0.9 [facility] Work Phone: Comment on above: IG% - Immature Granu locytes (promyelocytes, myelocytes and metamyelocytes) > 1% indicates that a LEFT SHIFT is Present. MCH (RBC) [Entitic mass] 27.1 pg 27.0-32.0 [facility] Work Phone: Nucleated RBC/100 WBC (Bld) [Ratio] 0 % 0-5 [facility] Work Phone: MCHC Auto (RBC) [Mass/Vol]on 07-21-2021 MCHC (RBC) [Mass/Vol] 32.5 g/dL 32-36 [facility] Work Phone: No Panel Informationon 07-21 CA 125 Antigen 22.3 U/mL [facility] Work Phone: Comment on above: [facility] El ectrochemiluminescence Immunoassay(ECLIA)Values obtained with different assay methods or kits cannotbe used interchangeably. Results cannot be interpreted asabsolute evidence of the presence or absence of malignantdisease. Estimated GFR (MDRD) Amer 120 mL/min >60 [facility] Work Phone: Comment on above: GFR Calc Estimated GFR (MDRD) Non-Af Amer 100 mL/min >60 [facility] Work Phone: Comment on above: Non- GFR Calc Free Triiodothyronine (T3) pg/dL 2.1 pg/mL 2.18-3.98 [facility] Work Phone: Thyroid Stimulating Hormone (TSH) 1.18 uIU/mL 0.358-3.74 [facility] Work Phone: Platelets bldon 07-21-2021 Platelets (Bld) [#/Vol] 287 10*3/uL 150-450 [facility] Work Phone: Serum Helicobacter pylori Ig G antibody assay (units/volume)on 07-21-2021 H. pylori IgG Qn (S) 0.59 [facility] Work Phone: Comment on above: Result Units: Index Value Negative <0.80 Equivocal 0.80 - 0.89 Positive >0.89Performed at: [address] [id number] Director: Raffaele Barrera PhD, Phone: [phone] Serum or plasma albumin emmanuelle urement (mass/volume)on 07-21-2021 Albumin [Mass/Vol] 3.4 g/dL 3.2-5.0 [facility] Work Phone: Serum or plasma albumin/glob ulin mass ratioon 07-21-2021 Albumin/Globulin [Mass ratio] 0.9 {ratio} 0.9-2.4 [facility] Work Phone: Serum or plasma calcium emmanuelle urement (mass/volume)on 07-21-2021 Calcium [Mass/Vol] 8.6 mg/dL 8.5-10.1 [facility] Work Phone: Serum or plasma creatinine m easurement (mass/volume)on 07-21-2021 Creatinine [Mass/Vol] 0.68 mg/dL 0.55-1.02 [facility] Work Phone: Comment on above: The validity of the calculated GFR & GFRAA in patients over 70 years has not been determined. Clinical correlation is essential. Serum or plasma urea nitroge n measurement (mass/volume)on 07-21-2021 Urea nitrogen [Mass/Vol] 12 mg/dL 7-18 [facility] Work Phone: Thin prep Papanicolaou smear with manual screeningon 07-21-2021 Thin prep Papanicolaou smear with manual screening 21 U/L 15-37 [facility] Work Phone: Thin prep Papanicolaou smear with manual screening 5 5-15 [facility] Work Phone: Whole blood hemoglobin A1c/t otal hemoglobin ratio (mass fraction)on 07-21-2021 HbA1c (Bld) [Mass fraction] 5.4 % 3.8-5.6 [facility] Work Phone: Comment on above: Normal < 5.7 % Predi abetic 5.7 - 6.4 % Diabetic >or= 6.5 % Please note range changes. Culture, urineon 07-20-2021 Bacteria identified Cx Nom (U) Positive [facility] Work Phone: BONE MARROW BIOPSY [facility] Vital Signs Date Time Vital Sign Value Performing Clinician Facility 11-04-2024 08:17-0400 Body mass index (BMI) [Ratio] 39.22 kg/m2 Fabiano [employer] Phone: [facility] 11-04-2024 08:17-0400 Body temperature 98.1 [degF] [facility] [employer] Phone: [facility] 11-04-2024 08:17-0400 Body weight 107.73 kg Fabiano [employer] Phone: [facility] 11-04-2024 08:17-0400 Diastolic blood pressure 88 mm[Hg] [facility]iano [employer] Phone: [facility] 11-04-2024 08:17-0400 Heart rate 69 /min [facility] [employer] Phone: [facility] 11-04-2024 08:17-0400 SaO2% (BldA) [Mass fraction] 97 % [facility] [employer] Phone: [facility] 11-04-2024 08:17-0400 Systolic blood pressure 150 mm[Hg] [facility]iano [employer] Phone: [facility] 08-20-2024 08:06-0400 Body height 165.[address] Krystina Calle DO Work Phone: [facility] 08-20-2024 08:06-0400 Body mass index (BMI) [Ratio] 38.9 kg/m2 Dr. Krystina Calle DO Work Phone: [facility] 08-20-2024 08:06-0400 Body weight 106.[address] Krystina Calle DO Work Phone: [facility] 07-01-2024 11:00-0400 Body mass index (BMI) [Ratio] 38.06 kg/m2 Fabiano Masci DO Work Phone: [facility] 07-01-2024 11:00-0400 Body temperature 98.71 [degF] Fabiano Masci DO Work Phone: [facility] 07-01-2024 11:00-0400 Body weight 104.55 kg Fabiano Masci DO Work Phone: [facility] 07-01-2024 11:00-0400 Diastolic blood pressure 82 mm[Hg] Fabiano Masci DO Work Phone: [facility] 07-01-2024 11:00-0400 Heart rate 73 /min Fabiano Masci DO Work Phone: [facility] 07-01-2024 11:00-0400 SaO2% (BldA) [Mass fraction] 97 % Fabiano Masci DO Work Phone: [facility] 07-01-2024 11:00-0400 Systolic blood pressure 155 mm[Hg] Fabiano Masci DO Work Phone: [facility] 06-18-2024 10:33-0400 Body mass index (BMI) [Ratio] 38.23 kg/m2 Esha Read Work Phone: [facility] 06-18-2024 10:33-0400 Body temperature 98.6 [degF] Esha Read Work Phone: [facility] 06-18-2024 10:33-0400 Body weight 105.01 kg Esha Read Work Phone: [facility] 06-18-2024 10:33-0400 Diastolic blood pressure 86 mm[Hg] Esha Read Work Phone: [facility] 06-18-2024 10:33-0400 Heart rate 53 /min Esha Read Work Phone: [facility] 06-18-2024 10:33-0400 SaO2% (BldA) [Mass fraction] 98 % Esha Read Work Phone: [facility] 06-18-2024 10:33-0400 Systolic blood pressure 146 mm[Hg] Esha Read Work Phone: [facility] 04-27-2024 08:23-0500 Body mass index (BMI) [Ratio] 37.57 kg/m2 Fabiano Jungi DO Work Phone: [facility] 04-27-2024 08:23-0500 Body temperature 97.59 [degF] Fabiano Jungi DO Work Phone: [facility] 04-27-2024 08:23-0500 Body weight 103.19 kg Fabiano Jungi DO Work Phone: [facility] 04-27-2024 08:23-0500 Diastolic blood pressure 77 mm[Hg] Fabiano Jungi DO Work Phone: [facility] 04-27-2024 08:23-0500 Heart rate 69 /min Fabiano Jungi DO Work Phone: [facility] 04-27-2024 08:23-0500 SaO2% (BldA) [Mass fraction] 99 % Fabiano Jungi DO Work Phone: [facility] 04-27-2024 08:23-0500 Systolic blood pressure 120 mm[Hg] Fabiano Liz DO Work Phone: [facility] 02-24-2024 09:13-0500 Diastolic blood pressure 83 mm[Hg] Dr. Krystina Calle DO Work Phone: [facility] 02-24-2024 09:13-0500 Systolic blood pressure 144 mm[Hg] Dr. Krystina Calle DO Work Phone: [facility] 02-24-2024 09:07-0500 Body height 165.[address] Krystina Calle DO Work Phone: [facility] 02-24-2024 09:07-0500 Body mass index (BMI) [Ratio] 39.2 kg/m2 Dr. Krystina Calle DO Work Phone: [facility] 02-24-2024 09:07-0500 Body weight 106.[address] Krystina Calle DO Work Phone: [facility] 01-30-2024 07:56-0500 Body mass index (BMI) [Ratio] 38.77 kg/m2 Devika Brush SENIOR SALES DIRECTOR.WAREHOUSE [employer] Work Phone: [facility] 01-30-2024 07:56-0500 Body temperature 97.5 [degF] Devika Brush SENIOR SALES DIRECTOR.WAREHOUSE [employer] Work Phone: [facility] 01-30-2024 07:56-0500 Body weight 106.5 kg Devika Brush SENIOR SALES DIRECTOR.WAREHOUSE [employer]ER Work Phone: [facility] 01-30-2024 07:56-0500 Diastolic blood pressure 82 mm[Hg] Devika Brush SENIOR SALES DIRECTOR.WAREHOUSE [employer]LOADER Work Phone: [facility] 01-30-2024 07:56-0500 Heart rate 99 /min Devika Brush SENIOR SALES DIRECTOR.WAREHOUSE [employer]LOADER Work Phone: [facility] 01-30-2024 07:56-0500 SaO2% (BldA) [Mass fraction] 93 % Devika Brush SENIOR SALES DIRECTOR.WAREHOUSE UNLOADER Work Phone: [facility] 01-30-2024 07:56-0500 Systolic blood pressure 126 mm[Hg] Devika Brush SENIOR SALES DIRECTOR.WAREHOUSE [employer]LOADER Work Phone: [facility] 10-30-2023 08:31-0400 Body mass index (BMI) [Ratio] 39.38 kg/m2 Fabiano Liz DO Work Phone: [facility] 10-30-2023 08:31-0400 Body temperature 98.49 [degF] Fabiano Liz DO Work Phone: [facility] 10-30-2023 08:31-0400 Body weight 108.18 kg Fabiano Liz DO Work Phone: [facility] 10-30-2023 08:31-0400 Diastolic blood pressure 78 mm[Hg] Fabiano Jungi DO Work Phone: [facility] 10-30-2023 08:31-0400 Heart rate 65 /min Fabiano Jungi DO Work Phone: [facility] 10-30-2023 08:31-0400 SaO2% (BldA) [Mass fraction] 98 % Fabiano Jungi DO Work Phone: [facility] 10-30-2023 08:31-0400 Systolic blood pressure 135 mm[Hg] Fabiano Jungi DO Work Phone: [facility] 07-25-2023 08:24-0400 Body mass index (BMI) [Ratio] 38.86 kg/m2 Devika Brush SENIOR SALES DIRECTOR.WAREHOUSE [employer]ER Work Phone: [facility] 07-25-2023 08:24-0400 Body temperature 98.71 [degF] Devika Brothersenter SENIOR SALES DIRECTOR.WAREHOUSE UNLOADER Work Phone: [facility] 07-25-2023 08:24-0400 Body weight 106.73 kg Devika Brush SENIOR SALES DIRECTOR.WAREHOUSE [employer]LOADER Work Phone: [facility] 07-25-2023 08:24-0400 Diastolic blood pressure 70 mm[Hg] Devika Brush SENIOR SALES DIRECTOR.WAREHOUSE [employer]LOADER Work Phone: [facility] 07-25-2023 08:24-0400 Heart rate 70 /min Devika Brush SENIOR SALES DIRECTOR.WAREHOUSE [employer]LOADER Work Phone: [facility] 07-25-2023 08:24-0400 SaO2% (BldA) [Mass fraction] 99 % Devika Rbush SENIOR SALES DIRECTOR.WAREHOUSE [employer]LOADER Work Phone: [facility] 07-25-2023 08:24-0400 Systolic blood pressure 152 mm[Hg] Hamilton Brush SENIOR SALES DIRECTOR.WAREHOUSE UNLOADER Work Phone: [facility] 06-11-2023 13:43-0400 Body temperature 98.01 [degF] Bee Patterson PA-C Work Phone: [facility] 06-11-2023 13:43-0400 Body weight 106.7 kg Bee Athy PA-C Work Phone: [facility] 06-11-2023 13:43-0400 Diastolic blood pressure 72 mm[Hg] Bee Athy PA-C Work Phone: [facility] 06-11-2023 13:43-0400 Heart rate 76 /min Bee Athy PA-C Work Phone: [facility] 06-11-2023 13:43-0400 Respiratory rate 16 /min Bee Athy PA-C Work Phone: [facility] 06-11-2023 13:43-0400 SaO2% (BldA) [Mass fraction] 98 % Bee Athy PA-C Work Phone: [facility] 06-11-2023 13:43-0400 Systolic blood pressure 134 mm[Hg] Bee Athy PA-C Work Phone: [facility] 04-26-2023 08:36-0500 Body temperature 98.71 [degF] Fabiano Masci DO Work Phone: [facility] 04-26-2023 08:36-0500 Body weight 105.69 kg Fabiano Masci DO Work Phone: [facility] 04-26-2023 08:36-0500 Diastolic blood pressure 69 mm[Hg] Fabiano Masci DO Work Phone: [facility] 04-26-2023 08:36-0500 Heart rate 62 /min Fabiano Masci DO Work Phone: [facility] 04-26-2023 08:36-0500 SaO2% (BldA) [Mass fraction] 99 % Fabiano Masci DO Work Phone: [facility] 04-26-2023 08:36-0500 Systolic blood pressure 135 mm[Hg] Fabiano Masci DO Work Phone: [facility] 02-19-2023 09:39-0500 Body height 167.[address] Krystina Calle Work Phone: [facility] 02-19-2023 09:28-0500 Body mass index (BMI) [Ratio] 37.5 kg/m2 Dr. Krystina Calle Work Phone: [facility] 02-19-2023 09:28-0500 Body weight 105.[address] Krystina Calle Work Phone: [facility] 02-19-2023 09:28-0500 Diastolic blood pressure 85 mm[Hg] Dr. Krystina Calle Work Phone: [facility] 02-19-2023 09:28-0500 Systolic blood pressure 137 mm[Hg] Dr. Krystina Calle Work Phone: [facility] 12-31-2022 12:59-0400 Body height 167.[address] Krystina Calle Work Phone: [facility] 12-31-2022 12:55-0400 Body mass index (BMI) [Ratio] 37.7 kg/m2 Dr. Krystina Calle Work Phone: [facility] 12-31-2022 12:55-0400 Body weight 105.[address] Krystina Calle Work Phone: [facility] 12-31-2022 12:55-0400 Diastolic blood pressure 88 mm[Hg] Dr. Krystina Calle Work Phone: [facility] 12-31-2022 12:55-0400 Systolic blood pressure 120 mm[Hg] Dr. Krystina Calle Work Phone: [facility] 10-22-2022 15:47-0400 Body temperature 99.1 [degF] Fabiano Liz DO Work Phone: [facility] 10-22-2022 15:47-0400 Body weight 104.1 kg Fabiano Liz DO Work Phone: [facility] 10-22-2022 15:47-0400 Diastolic blood pressure 79 mm[Hg] Fabiano Liz DO Work Phone: [facility] 10-22-2022 15:47-0400 Heart rate 70 /min Fabiano Masci DO Work Phone: [facility] 10-22-2022 15:47-0400 SaO2% (BldA) [Mass fraction] 98 % Fabiano Masci DO Work Phone: [facility] 10-22-2022 15:47-0400 Systolic blood pressure 122 mm[Hg] Fabiano Masci DO Work Phone: [facility] 08-27-2022 17:07-0400 Body temperature 98.91 [degF] Lori Solano SENIOR SALES DIRECTOR.WAREHOUSE [employer]LOADER Work Phone: [facility] 08-27-2022 17:07-0400 Body weight 102.06 kg Lori Solano SENIOR SALES DIRECTOR.WAREHOUSE [employer]LOADER Work Phone: [facility] 08-27-2022 17:07-0400 Diastolic blood pressure 74 mm[Hg] Lori Solano SENIOR SALES DIRECTOR.WAREHOUSE [employer]LOADER Work Phone: [facility] 08-27-2022 17:07-0400 Heart rate 76 /min Lori Solano SENIOR SALES DIRECTOR.WAREHOUSE [employer]ER Work Phone: [facility] 08-27-2022 17:07-0400 Respiratory rate 16 /min Lori Solano SENIOR SALES DIRECTOR.WAREHOUSE [employer]ER Work Phone: [facility] 08-27-2022 17:07-0400 SaO2% (BldA) [Mass fraction] 95 % Lori Solano SENIOR SALES DIRECTOR.WAREHOUSE [employer] Work Phone: [facility] 08-27-2022 17:07-0400 Systolic blood pressure 124 mm[Hg] Lori Solano SENIOR SALES DIRECTOR.WAREHOUSE [employer]LOADER Work Phone: [facility] 07-25-2022 13:08-0400 Diastolic blood pressure 80 mm[Hg] Fabiano Masci DO Work Phone: [facility] 07-25-2022 13:08-0400 Heart rate 79 /min Fabiano Masci DO Work Phone: [facility] 07-25-2022 13:08-0400 Systolic blood pressure 127 mm[Hg] Fabiano Masci DO Work Phone: [facility] 07-25-2022 11:23-0400 Body height 165.7 cm Fabiano Masci DO Work Phone: [facility] 07-25-2022 11:23-0400 Body temperature 98.4 [degF] Fabiano Masci DO Work Phone: [facility] 07-25-2022 11:23-0400 Body weight 102.06 kg Fabiano Masci DO Work Phone: [facility] 07-25-2022 11:23-0400 Diastolic blood pressure 83 mm[Hg] Fabiano Masci DO Work Phone: [facility] 07-25-2022 11:23-0400 Heart rate 80 /min Fabiano Masci DO Work Phone: [facility] 07-25-2022 11:23-0400 Systolic blood pressure 136 mm[Hg] Fabiano Masci DO Work Phone: [facility] 06-28-2022 09:18-0400 Body height 167.[address] Krystina Calle Work Phone: [facility] 06-28-2022 09:16-0400 Body mass index (BMI) [Ratio] 36.5 kg/m2 Dr. Krystina Calle Work Phone: [facility] 06-28-2022 09:16-0400 Body weight 102.[address] Krystina Calle Work Phone: [facility] 06-28-2022 09:16-0400 Diastolic blood pressure 82 mm[Hg] Dr. Krystina Calle Work Phone: [facility] 06-28-2022 09:16-0400 Systolic blood pressure 132 mm[Hg] Dr. Krystina Calle Work Phone: [facility] 05-21-2022 15:55-0500 Body mass index (BMI) [Ratio] 37.8 kg/m2 Dr. Krystina Calle Work Phone: [facility] 05-21-2022 15:55-0500 Body weight 106.[address] Krystina Calle Work Phone: [facility] 05-21-2022 15:55-0500 Diastolic blood pressure 85 mm[Hg] Dr. Krystina Calle Work Phone: [facility] 05-21-2022 15:55-0500 Systolic blood pressure 134 mm[Hg] Dr. Krystina Calle Work Phone: [facility] 04-24-2022 15:29-0500 Body mass index (BMI) [Ratio] 37.8 kg/m2 Dr. Krystina Calle Work Phone: [facility] 04-24-2022 15:29-0500 Body weight 106.[address] Krystina Calle Work Phone: [facility] 04-24-2022 15:29-0500 Diastolic blood pressure 83 mm[Hg] Dr. Krystina Calle Work Phone: [facility] 04-24-2022 15:29-0500 Systolic blood pressure 130 mm[Hg] Dr. Krystina Calle Work Phone: [facility] 03-27-2022 15:47-0500 Body mass index (BMI) [Ratio] 39.2 kg/m2 Dr. Krystina Calle Work Phone: [facility] 03-27-2022 15:47-0500 Body weight 110.[address] Krystina Calle Work Phone: [facility] 03-27-2022 15:47-0500 Diastolic blood pressure 83 mm[Hg] Dr. Krystina Calle Work Phone: [facility] 03-27-2022 15:47-0500 Heart rate 85 /min Dr. Krystina Calle Work Phone: [facility] 03-27-2022 15:47-0500 Systolic blood pressure 134 mm[Hg] Dr. Krystina Calle Work Phone: [facility] 03-01-2022 15:01-0500 Body height 167.[address] Krystina Calle Work Phone: [facility] Work Phone: 03-01-2022 15:01-0500 Body mass index (BMI) [Ratio] 43 kg/m2 Dr. Krystina Calle Work Phone: [facility] 03-01-2022 15:01-0500 Body weight 110.[address] Krystina Calle Work Phone: [facility] 03-01-2022 15:01-0500 Diastolic blood pressure 73 mm[Hg] Dr. Krystina Calle Work Phone: [facility] 03-01-2022 15:01-0500 Heart rate 79 /min Dr. Krystina Calle Work Phone: [facility] 03-01-2022 15:01-0500 Systolic blood pressure 118 mm[Hg] Dr. Krystina Calle Work Phone: [facility] 02-08-2022 08:28-0500 Body height 167.[address] Krystina Calle Work Phone: [facility] Work Phone: 02-08-2022 08:25-0500 Body mass index (BMI) [Ratio] 39.6 kg/m2 Dr. Krystina Calle Work Phone: [facility] Work Phone: 02-08-2022 08:25-0500 Body weight 111.[address] Krystina Calle Work Phone: [facility] Work Phone: 02-08-2022 08:25-0500 Diastolic blood pressure 81 mm[Hg] Dr. Krystina Calle Work Phone: [facility] Work Phone: 02-08-2022 08:25-0500 Systolic blood pressure 148 mm[Hg] Dr. Krystina Calle Work Phone: [facility] Work Phone: Encounters Encounter Date Encounter Type Care Provider Facility Start: 11-20-2024 End: 11-20-2024 Specialty Pharmacy Lori Maynard [facility] Comment on above: SPP Oral Oncology/he matology - Medication Refill (Scemblix) Start: 11-19-2024 ambulatory Krystina Calle Facility:[facility] Start: 11-04-2024 End: 11-04-2024 Telephone encounter Fabiano Liz DO Work Phone: Hematology/Oncology Comment on above: Follow Up Start: 11-04-[address] Dallas fair MD -Physical Therapy Work Phone: Start: 11-04-2024 End: 11-04-2024 Office outpatient visit 25 minutes Fabiano Liz DO Work Phone: Hematology/Oncology Comment on above: CML (chronic myelocy tic leukemia) (HCC) (Primary Dx); Microcytic anemia; Gastroesophageal reflux disease, unspecified whether esophagitis present Start: 11-04-2024 End: 11-04-2024 ambulatory FABIANO LIZ Facility:[facility] Start: 10-29-2024 Registered Referred HEALTH RIS K ASSESSMENT -Employee Health Start: 10-29-2024 End: 10-29-[address] Krystina Calle DO Work Phone: -Laboratory Start: 10-29-2024 End: 10-29-[address] Krystina Calle DO -Laboratory Work Phone: Start: 10-29-2024 End: 10-29-2024 ambulatory Krystina Calle Facility:[facility] Start: 10-26-2024 End: 10-26-2024 Specialty Pharmacy Marie Malhotra [facility] Comment on above: SPP Oral Oncology/he matology - Medication Refill (Scemblix) Start: 10-12-2024 End: 10-12-2024 ambulatory KRYSTINA CALLE Facility:[facility] Start: 09-30-2024 End: 09-30-2024 Specialty Pharmacy Marie Malhotra [facility] Comment on above: SPP Oral Oncology/he matology - Medication Refill (Scemblix) Start: 09-28-2024 End: 09-29-2024 Refill Fabiano Liz DO Work Phone: Hematology/Oncology Comment on above: Refill Request Medication Problem Start: 08-20-2024 End: 08-20-[address] Dallas Rojas MD -[facility] Work Phone: Start: 08-20-2024 End: 08-20-[address] Krystina Calle DO Work Phone: [facility] Work Phone: Start: 08-10-2024 End: 08-10-[address] Krystina Calle DO Work Phone: [facility] Work Phone: Start: 08-10-2024 End: 08-10-[address] Krystina Calle DO Work Phone: [facility] Work Phone: Start: 08-10-2024 End: 08-10-2024 ambulatory Krystina Calle Facility:[facility] Start: 07-29-2024 End: 07-29-2024 ambulatory KRYSTINA CALLE Facility:[facility] Start: 07-14-2024 End: 07-14-[address] Krystina Calle DO Work Phone: [facility] Work Phone: Start: 07-14-2024 End: 07-14-2024 Patient encounter procedure Mireya BOWIE -[facility] Work Phone: Start: 07-14-2024 End: 07-14-2024 ambulatory Krystina Calle Facility:[facility] Start: 07-01-2024 End: 07-01-2024 Office outpatient visit 25 minutes Fabiano Liz DO Work Phone: Hematology/Oncology Comment on above: CML (chronic myelocy tic leukemia) (HCC) (Primary Dx); Gastroesophageal reflux disease, unspecified whether esophagitis present; Sciatica, right side Start: 07-01-2024 End: 07-01-2024 ambulatory FABIANO LIZ Facility:[facility] Start: 06-26-2024 End: 06-26-2024 Telephone encounter Esha Read Work Phone: Hematology/Oncology Start: 06-18-2024 End: 06-18-[address] Krystina Calle DO Work Phone: [facility] Work Phone: Start: 06-18-2024 End: 06-18-[address] Krystina Calle DO Work Phone: -[facility] Work Phone: Start: 06-18-2024 End: 06-18-2024 Patient encounter procedure Esha Read Work Phone: Hematology/Oncology Start: 06-18-2024 End: 06-18-2024 ambulatory Esha Read Work Phone: Hematology/Oncology Comment on above: Acute bilateral low back pain with right-sided sciatica (Primary Dx); CML (chronic myelocytic leukemia) (HCC) Start: 06-18-2024 End: 06-18-2024 ambulatory Krystina Calle Facility:[facility] Start: 06-15-2024 End: 06-15-[address] Krystina Calle DO Work Phone: [facility] Work Phone: Start: 06-15-2024 End: 06-15-[address] Fabiano Liz DO -Laboratory Work Phone: Start: 06-15-2024 End: 06-15-2024 ambulatory Krystina Calle Facility:[facility] Start: 06-12-2024 End: 06-15-2024 Telephone encounter Ligia Mtz RN Hematology/Oncology Comment on above: Pharmacist - O ther (Oral Anti-Cancer Agents Follow-up ) Start: 06-09-2024 End: 06-23-2024 ambulatory KRYSTINA CALLE Facility:[facility] Start: 06-08-2024 End: 06-08-2024 ambulatory Fabiano Liz DO Work Phone: Hematology/Oncology Comment on above: Scemblix Start: 05-13-2024 End: 05-13-2024 Refill Devikating Brush SENIOR SALES DIRECTOR.WAREHOUSE UNLOADER Work Phone: Hematology/Oncology Comment on above: Refill Request Start: 05-13-2024 End: 05-14-2024 Refill Hamilton Brush SENIOR SALES DIRECTOR.WAREHOUSE UNLOADER Work Phone: Hematology/Oncology Comment on above: Refill Request Start: 05-05-2024 End: 06-02-2024 Telephone encounter Ligia Mtz RN Hematology/Oncology Comment on above: Pharmacist - O ther (Oral Anti-Cancer Agents Education (asciminib)) Start: 04-28-2024 End: 04-28-2024 ambulatory Jefferson Vuong [facility] Start: 04-28-2024 End: 04-28-2024 Patient encounter procedure Jefferson Vuong [facility] Comment on above: SPP Oral Oncology/he matology - Treatment Referral (Scemblix 40 mg) Start: 04-27-2024 End: 04-27-2024 ambulatory FABIANO LIZ Facility:[facility] Start: 04-27-2024 End: 04-27-2024 Office outpatient visit 25 minutes Fabiano Liz DO Work Phone: Hematology/Oncology Comment on above: CML (chronic myelocy tic leukemia) (HCC) (Primary Dx); History of iron deficiency; Gastroesophageal reflux disease, unspecified whether esophagitis present Start: 04-20-2024 End: 04-20-2024 ambulatory FABIANO LIZ Facility:[facility] Start: 04-03-2024 End: 04-03-2024 Refill Fabiano Liz DO Work Phone: Hematology/Oncology Comment on above: Refill Request Start: 03-31-2024 End: 03-31-2024 Refill Fabiano A Masci DO Work Phone: Hematology/Oncology Comment on above: Refill Request Start: 02-24-2024 End: 02-24-[address] Monie Mckeon MD -[facility] Work Phone: Start: 02-24-2024 End: 02-24-[address] Monie Mckeon MD [facility] Start: 02-24-2024 End: 02-24-2024 ambulatory Krystina [facility] Facility[facility] Start: 01-30-2024 End: 01-30-2024 Patient encounter procedure Devika Brothersenter SENIOR SALES DIRECTOR.WAREHOUSE UNLOADER Work Phone: Hematology/Oncology Start: 01-30-2024 End: 01-30-2024 ambulatory Devika Brothersenter SENIOR SALES DIRECTOR.WAREHOUSE UNLOADER Work Phone: Hematology/Oncology Comment on above: CML (chronic myelocy tic leukemia) (HCC) (Primary Dx) Start: 01-28-2024 End: 01-28-2024 Orders Only Fabiano Liz DO Work Phone: Hematology/Oncology Start: 01-09-2024 End: 01-09-[address] [facility] Facility:[facility] Start: 12-23-2023 End: 12-23-2023 ambulatory Fabiano Masci Facility:[facility] Start: 12-19-2023 End: 12-19-2023 ambulatory Fabiano Masci Facility:[facility] Start: 12-09-2023 End: 12-09-2023 ambulatory Fabiano Masci Facility:[facility] Start: 12-02-2023 End: 12-02-2023 ambulatory Fabiano Masci Facility:[facility] Start: 11-29-2023 End: 11-29-2023 ambulatory Krystina [facility] Facility:[facility] Start: 11-10-2023 End: 11-11-2023 Refill Fabiano Liz DO Work Phone: Hematology/Oncology Comment on above: Refill Request Start: 11-04-2023 Telephone encounter Fabiano ventura DO Work Phone: Hematology/Oncology Comment on above: Orders Start: 10-30-2023 End: 10-30-2023 ambulatory Fabiano Liz DO Work Phone: Hematology/Oncology Comment on above: CML (chronic myelocy tic leukemia) (HCC) (Primary Dx); Iron deficiency anemia secondary to inadequate dietary iron intake Start: 10-30-2023 End: 10-30-2023 Patient encounter procedure Fabiano Liz DO Work Phone: Hematology/Oncology Start: 09-30-2023 ambulatory Fabiano Anderson O Work Phone: Hematology/Oncology Comment on above: New pharmacy Start: 07-30-2023 ambulatory Devika Stevens r SENIOR SALES DIRECTOR.WAREHOUSE UNLOADER Work Phone: Hematology/Oncology Start: 07-30-2023 Patient encounter procedure Devika Brush SENIOR SALES DIRECTOR.WAREHOUSE UNLOADER Work Phone: Hematology/Oncology Comment on above: Next appointment Start: 07-29-2023 ambulatory Devika francis SENIOR SALES DIRECTOR.WAREHOUSE UNLOADER Work Phone: Hematology/Oncology Comment on above: Response to voicemai l Start: 07-29-2023 Telephone encounter Devika carlson APRN.WAREHOUSE UNLOADER Work Phone: Hematology/Oncology Start: 07-25-2023 End: 07-25-2023 Subsequent hospital visit by physician [facility] Avelino Arizmendi Work Phone: Radiology Comment on above: 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] Start: 07-25-2023 End: 07-25-2023 ambulatory Devika Brush SENIOR SALES DIRECTOR.WAREHOUSE UNLOADER Work Phone: Hematology/Oncology Comment on above: CML (chronic myelocy tic leukemia) (HCC) (Primary Dx) Start: 07-25-2023 End: 07-25-2023 Patient encounter procedure Devika Brush SENIOR SALES DIRECTOR.WAREHOUSE UNLOADER Work Phone: Hematology/Oncology Start: 07-16-2023 Orders Only Fabiano Anderson O Work Phone: Hematology/Oncology Comment on above: CML (chronic myelocy tic leukemia) (HCC) (Primary Dx) Start: 07-15-2023 Refill Devika francis APRN.CNP Work Phone: Hematology/Oncology Comment on above: Refill Request Start: 06-12-2023 ambulatory Fabiano Emerson Work Phone: Hematology/Oncology Comment on above: Viral test Start: 06-11-2023 End: 06-11-2023 ambulatory Fabiano Liz DO Work Phone: Hematology/Oncology Comment on above: Fever Start: 06-11-2023 End: 06-11-2023 Patient encounter procedure Bee LITTLEC Work Phone: [facility] Comment on above: URI, acute (Primary Dx) Start: 06-11-2023 Non-patient / Non-visit Dr. Joan Calle Work Phone: [facility] Start: 06-11-2023 End: 06-11-[address] 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 Octavio Calle Work Phone: [facility] Start: 02-19-2023 End: 02-19-[address] Krystina Calle Work Phone: [facility] Start: 02-19-2023 End: 02-19-[address] Krystina Calle Work Phone: [facility] Work Phone: Start: 02-03-2023 Telephone encounter Fabiano ventura DO Work Phone: Hematology/Oncology Comment on above: Results Start: 01-23-2023 Orders Only Fabiano Emerson Work Phone: Hematology/Oncology Comment on above: CML (chronic myelocy tic leukemia) (HCC) (Primary Dx) Start: 01-07-2023 End: 01-07-[address] Krystina Calle Work Phone: [facility] Work Phone: Start: 01-07-2023 End: 01-07-[address] Krystina Calle Work Phone: [facility]-Outpatient Breast Imaging Work Phone: Start: 12-31-2022 End: 12-31-[address] Krystina Calle Work Phone: [facility] Work Phone: Start: 12-28-2022 Refill Devika francis APRN.CNP Work Phone: Hematology/Oncology Comment on above: Refill Request Allopurinal Start: 11-01-2022 Non-patient / Non-visit Dr. Joan Calle Work Phone: [facility] Start: 11-01-2022 End: 11-01-[address] Krystina Calle Work Phone: [facility] Work Phone: Start: 11-01-2022 End: 11-01-[address] Krystina Calle Work Phone: [facility]-Cardiovascul [facility] Services Work Phone: Start: 10-24-2022 Telephone encounter Fabiano ventura DO Work Phone: Hematology/Oncology Comment on above: Results (CXR) Start: 10-23-2022 ambulatory Fabiano Emerson Work Phone: Hematology/Oncology Comment on above: Blood work Start: 10-22-2022 End: 10-22-2022 Subsequent hospital visit by physician [facility] Work Phone: Radiology Comment on above: Acquired hypothyroid ism [E03.9] Start: 10-22-2022 End: 10-22-2022 ambulatory Fabiano Liz DO Work Phone: Hematology/Oncology Comment on above: CML (chronic myelocy tic leukemia) (HCC) (Primary Dx); Acquired hypothyroidism; Iron deficiency anemia, unspecified iron deficiency anemia type Start: 10-22-2022 End: 10-22-2022 Patient encounter procedure Fabiano Liz DO Work Phone: [facility] Start: 09-20-2022 ambulatory Fabiano Emerson Work Phone: Hematology/Oncology Comment on above: Dental implant infec tion Start: 08-30-2022 Telephone encounter Fabiano ventura DO Work Phone: Hematology/Oncology Comment on above: Results Start: 08-27-2022 End: 08-27-2022 Subsequent hospital visit by physician [facility] Work Phone: Radiology Comment on above: Acute cough [R05.1] Start: 08-27-2022 End: 08-27-2022 Patient encounter procedure Lori Solano APRN.WAREHOUSE UNLOADER Work Phone: [facility] Comment on above: Acute cough (Primary Dx); Impacted cerumen, left ear; Hearing loss due to cerumen impaction, left Start: 08-23-2022 Telephone encounter Ligia Mtz RN He matology/Oncology Comment on above: Pharmacist - O ther (Follow-up ) Start: 08-17-2022 Telephone encounter Ligia Mtz RN He matology/Oncology Comment on above: Pharmacist - O ther (Oral Anti-Cancer Agents Follow-up (Bosutinib) ) Start: 08-02-2022 Telephone encounter Fabiaon ventura DO Work Phone: Hematology/Oncology Comment on above: Refill Request Start: 07-26-2022 ambulatory Duong Avila [facility] Start: 07-26-2022 Patient encounter procedure Duong Avila [facility] Comment on above: SPP Oral Oncology/he matology - Treatment Referral (Bosulif); Insurance Authorization ([place] pending) Start: 07-26-2022 Telephone [...] encounter procedure Fabiano Liz DO Work Phone: [facility] Start: 07-24-2022 Orders Only Fabiano Emerson Work Phone: Hematology/Oncology Comment on above: CML (chronic myelocy tic leukemia) (HCC) (Primary Dx); Other elevated white blood cell (WBC) count Start: 07-23-2022 Refill Fabiano Emerson Work Phone: Hematology/Oncology Comment on above: Results (High uric a brad) Start: 07-21-2022 End: 07-21-[address] Krystina Calle Work Phone: [facility] Work Phone: Start: 07-21-2022 End: 07-21-[address] Krystina Calle Work Phone: [facility]-Laboratory Start: 06-28-2022 End: 06-28-[address] Krystina Calle Work Phone: [facility] Start: 06-16-2022 End: 06-16-[address] Krystina Calle Work Phone: [facility] Work Phone: Start: 06-16-2022 End: 06-16-[address] Krystina Calle Work Phone: [facility]-Laboratory Start: 05-21-2022 End: 05-21-[address] Krystina Calle Work Phone: [facility] Start: 04-24-2022 End: 04-24-[address] Krystina Calle Work Phone: [facility] Start: 03-27-2022 End: 03-27-[address] Krystina Calle Work Phone: [facility] Start: 03-03-2022 End: 03-03-2022 Non-patient / Non-visit Dr. Krystina Calle Work Phone: [facility] Start: 03-03-2022 End: 03-03-[address] Krystina Calle Work Phone: [facility] Work Phone: Start: 03-03-2022 End: 03-03-[address] Krystina Calle Work Phone: [facility]-Pulmonary Services/Neurology Start: 03-01-2022 End: 03-01-[address] Krystina Calle Work Phone: [facility] Work Phone: Start: 03-01-2022 End: 03-01-[address] Krystina Calle Work Phone: [facility] Start: 02-08-2022 End: 02-08-[address] Krystina Calle Work Phone: [facility] Work Phone: Start: 02-08-2022 End: 02-08-[address] Krystina Calle Work Phone: [facility] Start: 01-02-2022 End: 01-02-2022 ambulatory [employer]ALTH EMPLOYEE Facility:[facility] Start: 12-29-2021 End: 12-29-[address] Krystina Calle Work Phone: [facility]-MRI - [facility] Start: 12-19-2021 End: 12-19-2021 ambulatory HEALTH EMPLOYEE Facility:[facility] Start: 07-27-2021 End: 07-27-2021 Patient encounter procedure [facility]-Cat Scan, [facility] Start: 07-21-2021 End: 07-21-2021 Patient encounter procedure [facility]Laboratory Start: 07-20-2021 End: 07-20-2021 Patient encounter procedure [facility]-Laboratory, Specimen Procedures Date Procedure Procedure Detail Performing Clinician Start: 10-29-2024 Serum inorganic phos phate measurement Dr. Krystina aClle DO Work Phone: Start: 10-29-2024 Urnls dip stick/tabl et reagent auto microscopy Dr. Krystina Calle DO Work Phone: Start: 08-10-2024 MRI of lumbar spine Dr. Krystina Calle DO Work Phone: Start: 07-14-2024 X-ray of lumbosacral spine Dr. Krystina Calle DO Work Phone: Start: 06-18-2024 X-ray of lumbar spin e, two or three views Dr. Krystina Calle DO Work Phone: Start: 06-11-2023 COVID & INFLUENZA A/ B & RSV NAAT, ROUTINE Bee Patterson PA-C Work Phone: Start: 04-26-2023 Radiologic exam ches t 2 views Fabiano Aron Agusto DO Work Phone: Start: 01-07-2023 Bilateral mammography Monica Calle Work Phone: Start: 01-07-[address] Krystina Calle Work Phone: Start: 10-22-2022 Radiologic exam ches t 2 views Fabiano Jungi DO Work Phone: Start: 08-27-2022 Radiologic exam ches t 2 views Lori Solano APRN.CNP Work Phone: Start: 07-25-2022 FLOW CYTOMETRY BONE MARROW HOLD (BMHOLD) Fabiano Sharp Erichi DO Work Phone: Start: 07-25-2022 FLOW CYTOMETRY BONE MARROW REFLEX Fabiano Sharp Masci DO Work Phone: Start: 07-25-2022 Diagnostic bone idania ow biopsies & aspirations Fabiano Sharp Erichi DO Work Phone: Start: 07-25-2022 BONE MARROW ANALYSIS Azeb Sharp Masci DO Work Phone: Start: 02-08-2022 Screening mammography Monica Calle Work Phone: Start: 12-29-2021 MRI of lumbar spine Dr. Krystina Calle Work Phone: Start: 07-27-2021 Computed tomography of abdomen and pelvis with contrast Start: 07-20-2021 Urine culture Plan of Treatment Date Care Activity Detail Author Start: 10-13-2027 Diabetes Screening Diabetes Screening [facility] Start: 07-30-2027 Diabetes Screening Diabetes Screening [facility] Start: 04-20-2027 Diabetes Screening Diabetes Screening [facility] Start: 01-29-2027 Diabetes Screening Diabetes Screening [facility] Start: 10-22-2026 Diabetes Screening Diabetes Screening [facility] Start: 07-16-2026 Diabetes Screening Diabetes Screening [facility] Start: 04-26-2026 Diabetes Screening Diabetes Screening [facility] Start: 01-24-2026 Diabetes Screening Diabetes Screening [facility] Start: 12-20-2025 Diabetes Screening Diabetes Screening [facility] Start: 10-22-2025 DIABETES SCREEN DIABETES SCREEN [facility] Start: 09-20-2025 DIABETES SCREEN DIABETES SCREEN [facility] Start: 08-29-2025 DIABETES SCREEN DIABETES SCREEN [facility] Start: 08-16-2025 DIABETES SCREEN DIABETES SCREEN [facility] Start: 07-23-2025 DIABETES SCREEN DIABETES SCREEN [facility] Start: 02-04-2025 End: 02-04-2025 ambulatory 02/04/2025 8:30 AM EST Visit (SP) Office Hematology/Oncology [address] [place] [address] Fabiano Liz DO [address] [place] [address] 3MO OV Hematology/Oncolog y Comment on above: 3MO OV Start: 01-25-2025 End: 01-25-2025 ambulatory 01/25/2025 8:00 AM EST Results Only [facility] [address] [place] [address] CBC/CMP and PCR for BCR::ABL [facility] Comment on above: CBC/CMP and PCR for BCR::ABL Start: 12-21-2024 End: 12-21-2024 Specialty Pharmacy 12/21/2024 7:30 AM EDT Specialty Pharmacy [facility] [address] [place], [place] [id number] [place] [address] Pharmacist, [facility] [address] [place] [address] [place] [address] Refill Scemblix (30 mg) [facility] Comment on above: Refill Scemblix (30 mg) Start: 11-23-2024 Influenza vaccination [facility] Start: 11-20-2024 End: 11-20-2024 Specialty Pharmacy 11/20/2024 7:45 AM EDT Specialty Pharmacy [facility] [id number] [place] [address] Pharmacist, [facility] [address] [facility] [place] [address] Refill Scemblix (30 mg) [facility] Comment on above: Refill Scemblix (30 mg) Start: 11-04-2024 End: 02-03-2025 Ferritin [Mass/volume] in Serum or Plasma [facility] Comment on above: Expected: 11/04/2024, Expires: Start: 11-04-2024 End: 02-03-2025 Iron and Iron binding capacity panel - Serum or Plasma [facility] Work Phone: Comment on above: Expected: 11/04/2024, Expires: Start: 11-04-2024 End: 11-04-2024 ambulatory Hematology/Oncolog y Comment on above: Q6MO OV/ LABS 07/29 & 10/26* Q6MO OV/ LABS 10/12* Start: 10-26-2024 End: 10-26-2024 ambulatory 10/26/2024 8:00 AM EDT Results Only [facility] [address] [place] [address] CBC/CMP* [facility] Comment on above: CBC/CMP* Start: 10-22-2024 End: 10-22-2024 ambulatory 10/22/2024 9:10 AM EDT Visit (SP) Office Hematology/Oncology [address] [place] [address] Fabiano Liz DO [address] [place] [address] OV/LABS 10/12* Hematology/Oncolog y Comment on above: OV/LABS 10/12* Start: 10-21-2024 End: 10-21-2024 Specialty Pharmacy 10/21/2024 7:30 AM EDT Specialty Pharmacy [facility] [id number] [place] [address] Pharmacist, [facility] [address] [place] [address] [place] [address] Refill Scemblix (30 mg) [facility] Comment on above: Refill Scemblix (30 mg) Start: 10-12-2024 End: 10-12-2024 ambulatory 10/12/2024 10:00 AM EDT Results Only [facility] [address] [place] [address] CBC/CMP/BCR ABL P210 and P190 [facility] Comment on above: CBC/CMP/BCR ABL P210 and P190 Start: 07-29-2024 End: 07-29-2024 ambulatory 07/29/2024 8:00 AM EDT Results Only [facility] [address] [place] [address] CBC/CMP* [facility] Comment on above: CBC/CMP* Start: 07-01-2024 End: 07-01-2024 ambulatory [facility] Comment on above: CBC/Lipase-On Scemblix CBC/LIPASE/OV-On Sce mblix* Start: 06-23-2024 End: 06-23-2024 Specialty Pharmacy 06/23/2024 7:15 AM EDT Specialty Pharmacy [facility] [address] [place], [place] [id number] Pharmacist, [facility] [address] [place] [address] [place] [address] Refill - Scemblix [30ds] [facility] Comment on above: Refill - Scemblix [30ds] Start: 06-18-2024 End: 06-18-2024 ambulatory [facility] Comment on above: CBC/Lipase-On Scemblix Blood pressure check -On Scemblix CBC/Lipase-On Scembl ix(LIPASE COMPLETED AT [facility]) OV-Per ,see phone note 06/15 Start: 06-15-2024 End: 09-14-2024 CBC W Auto Differential panel - Blood COMPLETE BLOOD COUNT AND DIFFERENTIAL Lab STAT CML (chronic myelocytic leukemia) (HCC) Expected: 06/15/2024, Expires: 09/14/2024 [facility] Work Phone: Comment on above: Expected: 06/15/2024, Expires: Start: 06-15-2024 End: 09-14-2024 Lipase [Enzymatic activity/volume] in Serum or Plasma LIPASE Lab Routine CML (chronic myelocytic leukemia) (HCC) Expected: 06/15/2024, Expires: 09/14/2024 [facility] Comment on above: Expected: 06/15/2024, Expires: Start: 04-27-2024 End: 04-27-2024 ambulatory 04/27/2024 8:30 AM EST Visit (SP) Office Hematology/Oncology [address], [place] [id number] Fabiano Liz, [address] [place] [address] Q3MO OV/ LABS 04/20* Hematology/Oncolog y Comment on above: Q3MO OV/ LABS 04/20* Start: 04-20-2024 End: 04-20-2024 ambulatory [facility] Comment on above: CBC/CMP/MAG/PHOS/BCR ABL1 P190 and P210* CBC/CMP/MAG/PHOS/BCR ABL1 P190 and P210* IRON STUDIES Start: 01-30-2024 End: 01-30-2024 ambulatory [facility] Comment on above: CBC/CMP* Q3MO OV/ LABS EARLY* CBC/CMP(S)* Start: 11-24-2023 Influenza vaccination Influenza Vaccine (#1) [place] [facility] Start: 10-30-2023 End: 01-29-2024 Ferritin [Mass/volume] in Serum or Plasma FERRITIN Lab Routine Iron deficiency anemia secondary to inadequate dietary iron intake Expected: 10/30/2023, Expires: 01/29/2024 [facility] Comment on above: Expected: 10/30/2023, Expires: Start: 10-30-2023 End: 01-29-2024 Iron and Iron binding capacity panel - Serum or Plasma IRON AND TIBC Lab Routine Iron deficiency anemia secondary to inadequate dietary iron intake Expected: 10/30/2023, Expires: 01/29/2024 [facility] Work Phone: Comment on above: Expected: 10/30/2023, Expires: Start: 10-30-2023 End: 10-30-2023 ambulatory 10/30/2023 8:30 AM EDT Visit (SP) Office Hematology/Oncology [address] [place] [address] Fabiano Liz, DO [address] [place] [address] Q3MO OV/ LABS 10/22* Hematology/Oncolog y Comment on above: Q3MO OV/ LABS 10/22* Start: 10-23-2023 End: 10-23-2023 ambulatory 10/23/2023 4:00 PM EDT Results Only [place] [facility] [address] [place] [address] (SO)CBC/CMP(S)/PCR BCR/ABL for both p210 and p190* [facility] Comment on above: (SO)CBC/CMP(S)/PCR BCR/ABL for both p210 and p190* Start: 07-25-2023 End: 07-25-2023 ambulatory 07/25/2023 8:30 AM EDT Visit (SP) Office Hematology/Oncology [address] [place] [address] Fabiano Liz, DO [address] [place] [address] Q3MO OV/ LABS 07/16* Hematology/Oncolog y Comment on above: Q3MO OV/ LABS 07/16* Start: 07-17-2023 End: 07-17-2023 ambulatory [place] [facility] Comment on above: CBC/CMP/PCR BCR/ABL for both p210 and p1 90 (SO)CBC/CMP(S)/PCR B CR/ABL for both p210 and p190* Start: 07-17-2023 End: 10-16-2023 BCR/ABL1 P190 QUANTITATIVE PCR BLOOD BCR/ABL1 P190 QUANTITATIVE PCR BLOOD Lab Routine CML (chronic myelocytic leukemia) (HCC) Expected: 07/17/2023, Expires: 10/16/2023 [facility] Work Phone: Comment on above: Expected: 07/17/2023, Expires: Start: 07-17-2023 End: 10-16-2023 BCR/ABL1 P210 QUANTITATIVE PCR BLOOD BCR/ABL1 P210 QUANTITATIVE PCR BLOOD Lab Routine CML (chronic myelocytic leukemia) ([facility]) Expected: 07/17/2023, Expires: 10/16/2023 [facility] Comment on above: Expected: 07/17/2023, Expires: Start: 04-26-2023 End: 07-26-2023 BCR/ABL1 P190 QUANTITATIVE PCR BLOOD [facility] Work Phone: Comment on above: Expected: 04/26/2023, Expires: Start: 04-26-2023 End: 07-26-2023 BCR/ABL1 P210 QUANTITATIVE PCR BLOOD [facility] Work Phone: Comment on above: Expected: 04/26/2023, Expires: Start: 03-25-2023 Behavioral Health Screening Behavioral Health Screening [facility] Start: 03-25-2023 Depression Assessment Depression Assessment [facility] Start: 01-24-2023 End: 04-25-2023 BCR/ABL1 P210 QUANTITATIVE PCR BLOOD BCR/ABL1 P210 QUANTITATIVE PCR BLOOD Lab Routine CML (chronic myelocytic leukemia) (HCC) Expected: 01/24/2023, Expires: 04/25/2023 [facility] Work Phone: Comment on above: Expected: 01/24/2023, Expires: 4 Start: 01-23-2023 End: 04-24-2023 BCR/ABL1 P190 QUANTITATIVE PCR BLOOD BCR/ABL1 P190 QUANTITATIVE PCR BLOOD Lab Routine CML (chronic myelocytic leukemia) (HCC) Expected: 01/23/2023, Expires: 04/24/2023 [facility] Work Phone: Comment on above: Expected: 01/23/2023, Expires: 4 Start: 11-23-2022 Influenza vaccination INFLUENZA (#1) [facility] Start: 10-22-2022 End: 12-22-2022 BCR/ABL1 P190 QUANTITATIVE PCR BLOOD [facility] Work Phone: Comment on above: Expected: 10/22/2022, Expires: 3 Start: 10-22-2022 End: 12-22-2022 BCR/ABL1 P210 QUANTITATIVE PCR BLOOD [facility] Work Phone: Comment on above: Expected: 10/22/2022, Expires: 3 Start: 07-25-2022 End: 09-24-2022 CBC W Auto Differential panel - Blood CBC + DIFF Lab STAT CML (chronic myelocytic leukemia) (HCC) Other elevated white blood cell (WBC) count Expected: 07/25/2022, Expires: 09/24/2022 [facility] Work Phone: Comment on above: Expected: 07/25/2022, Expires: 3 Start: 07-23-2022 End: 09-22-2022 BCR/ABL1 P210 AND P190 DIAGNOSTIC PCR BLOOD [facility] Work Phone: Comment on above: Expected: 07/23/2022, Expires: 3 Start: 07-23-2022 End: 09-22-2022 Chronic hepatitis differentiation between hepatitis B and C virus panel - Serum or Plasma [facility] Work Phone: Comment on above: Expected: 07/23/2022, Expires: 3 Start: 07-23-2022 End: 09-22-2022 HIV 1+2 Ab [Presence] in Serum or Plasma by Immunoassay [facility] Work Phone: Comment on above: Expected: 07/23/2022, Expires: 3 Start: 03-25-2022 DEPRESSION ASSESSMENT DEPRESSION ASSESSMENT [facility] Start: 2022 COLOGUARD (FIT-DNA) COLOGUARD (FIT-DNA) [facility] Start: 2022 Colonoscopy COLONOSCOPY [facility] Start: 2022 COLORECTAL CANCER SCREENING COLORECTAL CANCER SCREENING [facility] Start: [address] COLONOGRAPHY [facility] Start: 2022 FECAL OCCULT BLOOD FECAL OCCULT BLOOD [facility] Start: 2022 Lipid 1996 panel - Serum or Plasma Lipid Screening [facility] Start: 2022 Lipid panel Lipid Screening [facility] Start: 2022 LIPID SCREEN LIPID SCREEN [facility] Start: 2022 Screening for malignant neoplasm of colon [facility] Start: 2022 SIGMOIDOSCOPY SIGMOIDOSCOPY [facility] Start: 03-03-2021 COVID-19 VACCINE (3 - Booster for Moderna series) COVID-19 VACCINE (3 - Booster for Moderna series) [facility] Start: 02-03-2021 COVID-19 VACCINE (3 - Moderna risk series) COVID-19 VACCINE (3 - Moderna risk series) [facility] Start: 10-23-2017 Urine microalbumin profile DTaP,Tdap,Td Vaccine (2 - Td or Tdap) [facility] Start: 2017 Mammography [facility] Start: 2017 Screening for malignant neoplasm of breast Mammogram Screening [facility] Start: 06-28-2007 PAP TESTING PAP TESTING [facility] Start: 06-28-2007 Screening for malignant neoplasm of cervix Pap Testing [facility] Start: 2007 HPV TESTING HPV TESTING [facility] Start: 2007 Screening for malignant neoplasm of cervix HPV Testing [facility] Start: 06-28-2003 Screening for malignant neoplasm of cervix Cervical Cancer Screening [facility] Start: 01-18-1996 Pneumococcal vaccination Pneumococcal Vaccine (1 of 2 - PCV) [facility] Start: 01-18-1996 SHINGRIX VACCINE (1 of 2) SHINGRIX VACCINE (1 of 2) [facility] Start: 01-18-1996 [facility] Start: 1995 Anxiety Screening Anxiety Screening [facility] Start: 1995 Depression Screening Depression Screening [facility] Start: 1995 HEPATITIS C SCREENING HEPATITIS C SCREENING [facility] Start: 1995 HIV SCREENING HIV SCREENING [facility] Start: 1983 PNEUMOCOCCAL (1 - PCV) PNEUMOCOCCAL (1 - PCV) [facility] Start: 1983 Pneumococcal vaccination [facility] Start: 1977 HEPATITIS B (1 of 3 - 3-dose series) HEPATITIS B (1 of 3 - 3-dose series) [facility] BCR/ABL1 P190 NCN P2 10 % IS MR BONE MARROW BCR/ABL1 P190 NCN P210 % IS MR BONE MARROW Lab Routine Bandemia 07/25/2022 1:17 PM T [facility] Work Phone: BCR/ABL1 P210 AND P1 90 DIAGNOSTIC PCR BONE MARROW BCR/ABL1 P210 AND P190 DIAGNOSTIC PCR BONE MARROW Lab Routine Bandemia 07/25/2022 1:17 PM T [facility] Work Phone: BCR/ABL1 P210 AND P1 90 DIAGNOSTIC PCR BONE MARROW BCR/ABL1 P210 AND P190 DIAGNOSTIC PCR BONE MARROW Lab Routine Bandemia 07/25/2022 1:17 PM T [facility] Work Phone: BONE MARROW CHROMOSOME ANAL BONE MARROW CHROMOSOME ANAL Lab Routine Bandemia 07/25/2022 1:17 PM T [facility] Work Phone: CBC W Ordered Manual Differential panel - Blood PATHOLOGIST INTERPRETATION WITH CBC AND DIFF Lab STAT Other elevated white blood cell (WBC) count 07/23/2022 2:52 PM EDT [facility] Work Phone: DNA EXTRACTION BONE MARROW (BUFFY COAT) DNA EXTRACTION BONE MARROW (BUFFY COAT) Lab Routine Bandemia 07/25/2022 1:17 PM [facility] Work Phone: End: 04-26-2024 ECG COMPLETE ECG COMPLETE ECG Routine CML (chronic myelocytic leukemia) (HCC) Dyspnea and respiratory abnormalities 1 Occurrences starting 04/26/2023 until 04/26/2024 [facility] Work Phone: Comment on above: 1 Occurrences starting 04/26/2023 until 04/26/2024 End: 10-25-2023 Echocardiography ECHO Cardiology Routine CML (chronic myeloid leukemia) (HCC) Encounter for monitoring cardiotoxic drug therapy 1 Occurrences starting 10/24/2022 until 10/25/2023 [facility] Work Phone: Comment on above: 1 Occurrences starting 10/24/2022 until 10/25/2023 End: 04-26-2024 Echocardiography ECHO Cardiology Routine CML (chronic myelocytic leukemia) (HCC) 1 Occurrences starting 04/26/2023 until 04/26/2024 [facility] Work Phone: Comment on above: 1 Occurrences starting 04/26/2023 until 04/26/2024 Electrocardiographic procedure [facility] Work Phone: End: 07-26-2025 MR Lumbar spine WO contrast MRI LUMBAR SPINE WO IVCON Radiology Routine Spinal stenosis of lumbar region, unspecified whether neurogenic claudication present 1 Occurrences starting 06/26/2024 until 07/26/2025 [facility] Work Phone: Comment on above: 1 Occurrences starting 06/26/2024 until 07/26/2025 End: 11-21-2023 Radiologic exam chest 2 views XR CHEST 2V FRONTAL/LAT Radiology Routine Acquired hypothyroidism Iron deficiency anemia, unspecified iron deficiency anemia type CML (chronic myelocytic leukemia) ([facility]) 1 Occurrences starting 10/22/2022 until 11/21/2023 [facility] Work Phone: Comment on above: 1 Occurrences starting 10/22/2022 until 11/21/2023 Radiologic exam chest 2 views XR CHEST 2V FRONTAL/LAT Radiology Routine Acquired hypothyroidism Iron deficiency anemia, unspecified iron deficiency anemia type CML (chronic myelocytic leukemia) (HCC) 10/22/2022 4:56 PM EDT [facility] Work Phone: Removal impacted cer umen irrigation/lvg unilat AMBULATORY EAR LAVAGE/IRRIGATION Procedures Routine Impacted cerumen, left ear Ordered: 08/27/2022 [facility] Work Phone: Comment on above: Ordered: 08/27/2022 T4 free measurement [facility] Work Phone: Thyroid stimulating hormone measurement [facility] Work Phone: Triiodothyronine, fr ee measurement [facility] Work Phone: XR Femur - left AP a nd Lateral XR FEMUR GENERAL 2V AP/LAT LEFT Radiology Routine CML (chronic myelocytic leukemia) (HCC) 07/25/2023 9:12 AM EDT [facility] Work Phone: End: 08-23-2024 XR Femur - left AP and Lateral XR FEMUR GENERAL 2V AP/LAT LEFT Radiology Routine CML (chronic myelocytic leukemia) ([facility]) 1 Occurrences starting 07/25/2023 until 08/23/2024 [facility] Work Phone: Comment on above: 1 Occurrences starting 07/25/2023 until 08/23/2024 End: 07-18-2025 XR Lumbar spine AP and Lateral XR LUMBAR LIMITED 2V AP/LAT Radiology Routine Acute bilateral low back pain with right-sided sciatica 1 Occurrences starting 06/18/2024 until 07/18/2025 [facility] Work Phone: Comment on above: 1 Occurrences starting 06/18/2024 until 07/18/2025 [facility] Immunizations Immunization Date Immunization Notes Care Provider [facility] 01-23-2024 influenza, seasonal, injectable, preservative free Dr. Krystina Calle DO Work Phone: [facility] 01-23-2024 influenza virus vaccine, unspecified formulation Fabiano Liz DO Work Phone: [facility] 12-07-2022 influenza virus vaccine, unspecified formulation Fabiano Liz DO Work Phone: [facility] 01-06-2021 Covid (Moderna) [facility] 12-20-2020 influenza, injectabl e, quadrivalent, preservative free Dr. Krystina Calle Work Phone: [facility] 12-20-2020 influenza, seasonal, injectable [facility] 12-09-2020 Covid (Moderna) [facility] 12-22-2019 influenza, injectabl e, quadrivalent, preservative free Dr. Krystina Calle Work Phone: [facility] 12-22-2019 influenza, seasonal, injectable [facility] 12-18-2018 influenza, injectabl e, quadrivalent, preservative free Dr. Krystina Calle Work Phone: [facility] 12-18-2018 influenza, seasonal, injectable [facility] 12-18-2017 influenza, injectabl e, quadrivalent, preservative free Dr. Krystina Calle Work Phone: [facility] 12-18-2017 influenza, seasonal, [facility] 12-19-2016 influenza, injectabl e, quadrivalent, preservative free Dr. Krystina Calle Work Phone: [facility] 12-19-2016 influenza, seasonal, [facility] 12-22-2015 influenza, injectabl e, quadrivalent, preservative free Dr. Krystina Calle Work Phone: [facility] 12-22-2015 influenza, seasonal, [facility] 12-22-2014 influenza, injectabl e, quadrivalent, preservative free Dr. Krystina Calle Work Phone: [facility] 12-22-2014 influenza, seasonal, injectable [facility] 12-23-2013 influenza, injectabl e, quadrivalent, preservative free Dr. Krystina Calle Work Phone: [facility] 12-23-2013 influenza, seasonal, injectable [facility] Payers Date Payer Category Payer Self-pay [id number] 2023 Private Health Insurance [id number] 2023 Unknown [id number] 2022 Unknown [id number] 2016 Unknown [id number] Unknown 0000 Unknown [id number] 2.16.8 [id number] Unknown [id number] 2.16.8 [id number] Unknown [id number] 2.16.8 [id number] Unknown [id number] 2.16.8 [id number] Unknown [id number] 2.16.8 [id number] Unknown [id number] 2.16.8 [id number] Unknown [id number] 2.16.8 [id number] Unknown [id number] 2.16.8 [id number] Unknown [id number] 2.16.8 [id number] Unknown [id number] 2.16.8 [id number] Unknown [id number] 2.16.8 [id number] Unknown [id number] 2.16.8 [id number] Unknown [id number] 2.16.8 [id number] Unknown [id number] 2.16.8 [id number] Unknown [id number] 2.16.8 [id number] Unknown [id number] 2.16.8 [id number] Unknown [id number] 2.16.8 [id number] Social History Date Type Detail Facility Start: 12-26-2020 End: 02-19-2023 Tobacco smoking status NHIS Unknown if ever smoked [facility] Start: 1975 Sex Assigned At Female [facility] Start: 07-25-2022 End: 02-24-2024 Tobacco smoking status NHIS Never smoked tobacco [facility] Start: 08-25-2017 End: 08-27-2022 Alcohol intake Current drinker of alcohol (finding) [facility] Start: 09-20-2009 Alcohol Comment Not often [facility] Start: 1975 Sex Assigned At Not on file [facility] Start: 07-25-2022 Tobacco use and exposure Smokeless tobacco non-user [facility] Start: 10-22-2022 End: 11-04-2024 Alcohol intake Ex-drinker (finding) [facility] Start: 10-22-2022 End: 06-18-2024 History of Social function [facility] Start: 10-22-2022 End: 06-18-2024 Tobacco use panel [facility] Start: 02-24-2012 Adult Depression Screening Assessment 0 [facility] Start: 06-22-2024 End: 07-20-2024 Sex Female (finding) [facility] Clinical Notes 07-23-2022 to 11-20-2024 Mila (Credit Control Assistant)Margaret - 11/20/2024 1:26 PM EDTTelephone Encounter - Alisha Romero LPN - 11/04/2024 8:57 AM EDTTelephone Encounter - Alisha Romero LPN - 11/04/2024 8:57 AM EDT Note Date & Type Note Facility 11-20-2024 History of Presen t illness Narrative [facility] [...] been reviewed prior to dispensing the medication. Application Helper Assessment Patient confirmed: Yes Med/dose confirmed: Yes Supplies needed: No supplies needed Missed doses: No Estimated days supply on hand: 10 Copay amount: 0 Payment confirmed: Yes Delivery method: FedEx Signature required: Waived on patient request Delivery Address Options from [facility]: [facility] Home Delivery Address Calculated: [address] [address] [id number] Delivery date: 11/26/24 Questions or concerns for the pharmacist?: No [...] facility-administered medications on file prior to visit. [facility] SPECIALTY CLINICAL ASSESSMENT - HEMATOLOGY ONCOLOGY [...] G3/4 - Cardio toxicity (ischemic cardiac and FINANCIAL SERVICES TECHNICIAN events, thrombotic and embolic events, HF reported) [...] disease progression or unacceptable toxicity. Margaret Zaragoza ([employer]) documented in this encounter [facility] 11-20-2024 Note HNO ID: [id number] Author: JEFFERSON VUONG RPh Service: ? Author Type: ? Type: Progress Notes Filed: 11/24/2024 15:31 Note Text: [facility] Assessment Medication(s): Scemblix Reviewed OV/TE note on 11/04 and TE 11/08. Pt's back pain found to be related to L4-L5 degenerative disease. Increased BP readings noted - pt notedly not monitoring at home. MD endorsed pt to start monitoring BP at home. Dr. Liz recommends continuation of therapy with no changes at this time. Refill appropriate. Labs reviewed from 11/04 - no dose limiting toxicities Next clinic visit scheduled 02/04/25. ALLERGIES Allergen Reactions Iv Dye [Iodinated C* [...] medication. Jefferson Vuong, DavidD Clinical Pharmacist, Oncology [facility] P: , F: Pool: P [facility] Pool #: [id number] Application Helper Assessment Patient confirmed: Yes Med/dose confirmed: Yes Supplies needed: No supplies needed Missed doses: No Estimated days supply on hand: 10 Copay amount: 0 Payment confirmed: Yes Delivery method: FedEx Signature required: Waived on patient request Delivery Address Options from [facility]: [facility] Home Delivery Address Calculated: [address] [place], [place] [id number] Delivery date: 11/26/24 Questions or concerns for the pharmacist?: No [...] facility-administered medications on file prior to visit. [facility] RX SPECIALTY CLINICAL ASSESSMENT - HEMATOLOGY ONCOLOGY [...] G3/4 - Cardio toxicity (ischemic cardiac and FINANCIAL SERVICES TECHNICIAN events, thrombotic and embolic events, HF reported) [...] 4.9 - BP: 120/77 - Hep B: 05/01/23 14:51 Hep B Core Ab, Total: Negative Hep B Surf Ab Quant: 23.54 Hep B Surface Ab, Qual: Positive Hep B Surface Ag: Negative Baseline: 04/20/24 09:54 BCR/ABL1 p210 MR: 4 BCR/ABL1 (more content not included)... [facility] 11-04-2024 Telephone encounter Note Reviewed instructions with the patient and she verbalized understanding. Alisha Romero LPN [facility] 11-04-2024 Miscellaneous Notes Reviewed instructions with the patient and she verbalized understanding. Alisha Romero LPN Forgot to address blood pressure with her. I would encourage her to start taking her blood pressure 3-4 times a week first thing in the morning after getting up and before any caffeine. She should sit at the dining room table or kitchen counter for about 3 to 5 minutes before taking blood pressure. Best to have arm parallel with heart. Record blood pressures for several weeks then review with Dr. Calle. Fabiano Liz DO documented in this encounter [facility] 11-04-2024 Telephone encounter Note Forgot to address blood pressure with her. I would encourage her to start taking her blood pressure 3-4 times a week first thing in the morning after getting up and before any caffeine. She should sit at the dining room table or kitchen counter for about 3 to 5 minutes before taking blood pressure. Best to have arm parallel with heart. Record blood pressures for several weeks then review with Dr. Calle. Fabiano Liz DO [facility] 11-04-2024 Note HNO ID: [id number] Author: FABIANO LIZ DO Service: ? Author Type: Physician Type: Progress Notes Filed: 11/04/2024 08:46 Note Text: Diagnosis: 1) Chronic phase CML. [...] since hadn't had in a year) at [facility] and incidental leukocytosis with WBC count 135.68K. Hgb and platelets normal. Recheck at [facility] 07/21/2022 revealed total white count 131.8 thousand. [...] ongoing oncologic management. Interim history: Back pain found to be due to L4-L5 degenerative disease. Completing aquatic therapy. Following CPM and may received epidural injections. Reflux controlled. No subjective side effects. Has noted higher BPs. Not taking at home. Has cuff. PMH, medications and allergies personally reviewed by me today. Any changes documented in appropriate section. ROS: Constitutional: Normal appetite. Neuro: Denies BAÑUELOS, vertigo, dizziness and imbalance. [...] Normal mood. PHYSICAL EXAM: Vitals: Blood pressure 150/88, pulse 69, temperature 36.7 ?C (98.1 ?F), temperature source Temporal, weight 107.7 kg (237 lb 8 oz), SpO2 97%. Well-appearing and in no acute distress. EYES: Sclerae are anicteric bilaterally. LYMPHATIC: There is no palpable cervical, supraclavicular adenopathy. CARDIOVASCULAR: Rhythm is regular. ABDOMEN: The abdomen is nondistended. Cannot appreciate splenomegaly. Extremities: No swelling currently. SKIN: No jaundice. ASSESSMENT/PLAN: (C92.10) CML (chronic myelocytic leukemia) (HCC) (primary encounter diagnosis) (K21.9) Gastroesophageal reflux disease, unspecified whether esophagitis Microcytic anemia. 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 She had not had any bleeding or bruising issues. She had no constitutional symptoms. -Initial diagnostic PCR for BCR/ABL on peripheral blood demonstrated both p210 and p190 fusion transcripts with p210 being far greater. -MR for p210 at 9 months. p190 undetectable in under 2 months. -I reviewed the results of the PCR testing with her. Further DMR. Benefit of drug outweighs ongoing risk. -Tolerating Scemblix very well. Reviewed CBC. Decrease in MCV--discussed checking iron again. Will need parenteral iron. Doesn't tolerate oral iron well at all due to bad nausea. Will need repeat endoscopy if low. -Reflux controlled. Plan: -Continue Scemblix. -Lab work including CBC/CMP and PCR for BCR::ABL for both the P190 and P210 transcript in September. -Continue pantoprazole 40 mg once daily. Portions of this documentation were copied and pasted from my previous office visit note dated 07/01/2024 in order to provide a cohesive continuity of the history. The note has been reviewed and edited and updated as necessary. Fabiano iLz, [facility] 11-04-2024 History of Presen t illness Narrative Diagnosis: [...] since hadn't had in a year) at [facility] and incidental leukocytosis with WBC count 135.68K. Hgb and platelets normal. Recheck at [facility] 07/21/2022 revealed total white count 131.8 thousand. [...] ongoing oncologic management. Interim history: Back pain found to be due to L4-L5 degenerative disease. Completing aquatic therapy. Following CPM and may received epidural injections. Reflux controlled. No subjective side effects. Has noted higher BPs. Not taking at home. Has cuff. PMH, medications and allergies personally reviewed by me today. Any changes documented in appropriate section. ROS: Constitutional: Normal appetite. Neuro: Denies BAÑUELOS, vertigo, dizziness and imbalance. [...] Normal mood. PHYSICAL EXAM: Vitals: Blood pressure 150/88, pulse 69, temperature 36.7 C (98.1 F), temperature source Temporal, weight 107.7 kg (237 lb 8 oz), SpO2 97%. Well-appearing and in no acute distress. EYES: Sclerae are anicteric bilaterally. LYMPHATIC: There is no palpable cervical, supraclavicular adenopathy. CARDIOVASCULAR: Rhythm is regular. ABDOMEN: The abdomen is nondistended. Cannot appreciate splenomegaly. Extremities: No swelling currently. SKIN: No jaundice. ASSESSMENT/PLAN: (C92.10) CML (chronic myelocytic leukemia) (HCC) (primary encounter diagnosis) (K21.9) Gastroesophageal reflux disease, unspecified whether esophagitis Microcytic anemia. 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 She had not had any bleeding or bruising issues. She had no constitutional symptoms. -Initial diagnostic PCR for BCR/ABL on peripheral blood demonstrated both p210 and p190 fusion transcripts with p210 being far greater. -MR for p210 at 9 months. p190 undetectable in under 2 months. -I reviewed the results of the PCR testing with her. Further DMR. Benefit of drug outweighs ongoing risk. -Tolerating Scemblix very well. Reviewed CBC. Decrease in MCV--discussed checking iron again. Will need parenteral iron. Doesn't tolerate oral iron well at all due to bad nausea. Will need repeat endoscopy if low. -Reflux controlled. Plan: -Continue Scemblix. -Lab work including CBC/CMP and PCR for BCR::ABL for both the P190 and P210 transcript in September. -Continue pantoprazole 40 mg once daily. Portions of this documentation were copied and pasted from my previous office visit note dated 07/01/2024 in order to provide a cohesive continuity of the history. The note has been reviewed and edited and updated as necessary. Fabiano Liz DO documented in this encounter [facility] 10-26-2024 History of Presen t illness Narrative [...] been reviewed prior to dispensing the medication. Application Helper Assessment Patient confirmed: Yes Med/dose confirmed: Yes Supplies needed: No supplies needed Missed doses: No Estimated days supply on hand: 6 Copay amount: 0 Payment confirmed: Yes Delivery method: FedEx Signature required: Waived on patient request Delivery address: [address] [place] [address] [place] [address] Delivery date: 10/29/24 Questions or concerns for [...] facility-administered medications on file prior to visit. [facility] RX SPECIALTY CLINICAL ASSESSMENT - HEMATOLOGY ONCOLOGY [...] G3/4 - Cardio toxicity (ischemic cardiac and FINANCIAL SERVICES TECHNICIAN events, thrombotic and embolic events, HF reported) [...] disease progression or unacceptable toxicity. Margaret Zaragoza ([employer]) documented in this encounter [facility] 10-26-2024 Note HNO ID: [id number] Author: JEFFERSON VUONG [facility] Service: ? Author Type: ? Type: Progress [...] prior to dispensing the medication. Jefferson Vuong, PharmD Clinical Pharmacist, Oncology [facility] P: , F: Pool: P [facility] Pool #: [id number] Application Helper Assessment Patient confirmed: Yes Med/dose confirmed: Yes Supplies needed: No supplies needed Missed doses: No Estimated days supply on hand: 6 Copay amount: 0 Payment confirmed: Yes Delivery method: FedEx Signature required: Waived on patient request Delivery address: [address] [place] [address] Delivery date: 10/29/24 Questions or concerns for [...] facility-administered medications on file prior to visit. [facility] RX SPECIALTY CLINICAL ASSESSMENT - HEMATOLOGY ONCOLOGY [...] G3/4 - Cardio toxicity (ischemic cardiac and FINANCIAL SERVICES TECHNICIAN events, thrombotic and embolic events, HF reported) [...] disease progression or unacceptable toxicity. Margaret Zaragoza (Credit Control Assistant) [facility] 09-30-2024 History of Presen t illness [...] been reviewed prior to dispensing the medication. Application Helper Assessment Patient confirmed: Yes Med/dose confirmed: Yes Supplies needed: No supplies needed Missed doses: No Estimated days supply on hand: 1 Copay amount: 0 Payment confirmed: Yes Delivery method: FedEx Signature required: No Delivery address: [address] [place] [address] Delivery date: 10/02/24 Questions or concerns for [...] facility-administered medications on file prior to visit. [facility] RX SPECIALTY CLINICAL ASSESSMENT - HEMATOLOGY ONCOLOGY [...] G3/4 - Cardio toxicity (ischemic cardiac and FINANCIAL SERVICES TECHNICIAN events, thrombotic and embolic events, HF reported) [...] toxicity. Stacia Grady documented in this encounter [facility] 09-30-2024 Note HNO ID: [id number] Author: JEFFERSON VUONG RPh Service: ? Author [...] medication so she is transferring back to [facility] for refills at this time. Jefferson Vuong, PharmD Clinical Pharmacist, Oncology [facility] P: , F: Pool: P [facility] Pool #: [id number] Application Helper Assessment Patient confirmed: Yes Med/dose confirmed: Yes Supplies needed: No supplies needed Missed doses: No Estimated days supply on hand: 1 Copay amount: 0 Payment confirmed: Yes Delivery method: FedEx Signature required: No Delivery address: [facility] [address] [id number] Delivery date: 10/02/24 Questions or concerns for [...] facility-administered medications on file prior to visit. [facility] RX SPECIALTY CLINICAL ASSESSMENT - HEMATOLOGY ONCOLOGY [...] G3/4 - Cardio toxicity (ischemic cardiac and FINANCIAL SERVICES TECHNICIAN events, thrombotic and embolic events, HF reported) [...] / Amylas (Mo (more content not included)... [facility] 09-28-2024 Miscellaneous Notes Patient would like to fill Scemblix through [facility], please sign attached prescription as appropriate. Marie Malhotra PharmD, MERVINCP, BCOP Clinical Pharmacist, Oncology [facility] P: , F: Pool: P [facility] Pool #: [id number] documented in this encounter [facility] 09-28-2024 Telephone encounter Note Patient would like to fill Scemblix through [facility], please sign attached prescription as appropriate. Marie Malhotra PharmD, MERVINCP, BCOP Clinical Pharmacist, Oncology [facility] P: , F: Pool: P [facility] Pool #: [id number] [facility] 09-28-2024 Telephone encounter Note I reached out to [facility] and to the patient. Transfers are pharmacy to pharmacy, therefore, [facility] will need to reach out to [facility] to initiate the transfer of the Rx. I contacted [facility] [place] and a message will be given to the pharmacist to contact [facility] to transfer the Rx. Dr. Liz is currently out of the office. Alisha Romero LPN [facility] 09-28-2024 Miscellaneous Notes I reached out to [facility] and to the patient. Transfers are pharmacy to pharmacy, therefore, [facility] will need to reach out to [facility] to initiate the transfer of the Rx. I contacted [facility] [place] and a message will be given to the pharmacist to contact [facility] to transfer the Rx. Dr. Liz is currently out of the office. Alisha Romero LPN Patient called stating she contacted [facility] to fill prescription Scemblix. She was informed that is not available. They do not know when they would get it in. Patient has 2 days left of medication. She states if we contact [facility] they will be able to transfer the prescription to another location. Patient says that will save her some money. Please advise patient. documented in this encounter [facility] 09-28-2024 Telephone encounter Note Patient called stating she contacted [facility] to fill prescription Scemblix. She was informed that is not available. They do not know when they would get it in. Patient has 2 days left of medication. She states if we contact [facility] they will be able to transfer the prescription to another location. Patient says that will save her some money. Please advise patient. [facility] Work Phone: 08-20-2024 Evaluation note Diagnosis Onset Date Resolution Lumbar radiculopathy acute August 20, 2024 7:45am Spinal stenosis of lumbar region with neurogenic claudication acute July 7:45am Spondylolisthesis, lumbar region acute August 20, 2024 7:45am [facility] Work Phone: 1(842) 370-864604-22-2025 Radiology Diagnostic study note [facility] Imaging Services [address] [place] [address] L/S Spine Bending Flex/Ext MR#: [id number] Acct: [id number] Name: LIBIA OLIVAS Rep #: [id number] : 1975 F 49 From: Roverto Martinez MD PCP: Dr. Krystina Calle DO Status: REG CLI Study:L/S Spine Bending Flex/Ext Date of Exam : 07/14/24 Exam# [id number] Ordering Dr: Murray Cortez PROCEDURE: L/S SPINE [...] the flexion and extension views. Reading Location: [id number] CC: AZEB Love; Dr. Krystina Calle DO ~ Scaffold Setter: Signed [facility]04-09-2025 NoteHNO ID: [id number] Author: FABIANO LIZ DO Service: ? Author [...] since hadn't had in a year) at [facility] and incidental leukocytosis with WBC count 135.68K. Hgb and platelets normal. Recheck at [facility] 07/21/2022 revealed total white count 131.8 thousand. [...] starting Scemblix. Plain film was done at [facility] indicating disc space narrowing at L4-L5 [...] -Rx prednisone taper. P (more content not included)...[facility]04-09-2025 History of Present illness Narrative* Fabiano Liz DO - 07/01/2024 11:28 AM EDT Diagnosis: 1) Chronic phase CML. [...] since hadn't had in a year) at [facility] and incidental leukocytosis with WBC count 135.68K. Hgb and platelets normal. Recheck at [facility] 07/21/2022 revealed total white count 131.8 thousand. [...] of one of her children. This was doneon the right paralumbar region. She has had occasional sciatica pain but significantly worsened after starting Scemblix. Plain film was done at [facility] indicating disc space narrowing at L4-L5 [...] advised her to resume PPI particularly since goingon prednisone. Plan: -Continue Scemblix. - Lab work including CBC/CMP and PCR for BCR::ABL for both the P190 and P210 transcript in September. -Rx pantoprazole 40 mg once daily. -Rx prednisone taper. Portions of this documentation were copied and pasted from my previous office visit note dated 04/27/2024 in order to provide a cohesive continuity of the history. The note has been reviewed and editedand updated as necessary. Fabiano Liz DO [facility] Telephone encounter Note * Telephone Encounter - Mode Moss - 06/26/2024 3:48 PM EDT Referrals have been faxed to [facility], confirmation scanned into docs. Mode Moss [facility]04-04-2025 Miscellaneous Notes* Telephone Encounter - Mode Moss - 06/26/2024 3:48 PM EDT Referrals have been faxed to [facility], confirmation scanned into docs. Mode Moss * Telephone Encounter - Esha Read - 06/26/2024 2:11 PM EDT Called patient to review XR of spine. Recommend MRI lumbar to further evaluate. Should also get in to see ortho. Pt is agreeable. Will need imaging at [facility]. PSR: Can you please fax orders and get her set up to have MRI lumbar at [facility] please? Referral placedto ORTHO also at [facility]. Esha Read APRN.WAREHOUSE UNLOADER [facility] Telephone encounter Note * Telephone Encounter - ReadFrancisco askewna - 06/26/2024 2:11 PM EDT Called patient to review XR of spine. Recommend MRI lumbar to further evaluate. Should also get in to see ortho. Pt is agreeable. Will need imaging at [facility]. PSR: Can you please fax orders and get her set up to have MRI lumbar at [facility] please? Referral placedto ORTHO also at [facility]. Esha Read APRN.WAREHOUSE UNLOADER [facility]03-28-2025 Radiology Diagnostic study note [facility] Imaging Services [address] [place], [place] [address] Lumbar Spine 2 or 3 Views MR#: [id number] Acct: [id number] Name: LIBIA OLIVAS FRIDA Rep #: [id number] : 1975 F 49 From: Ezekiel Rock DO PCP: Dr. Krystina Calle DO Status: REG CLI Study:Lumbar Spine 2 or 3 Views Date of Exam: 06/18/24 Exam# [id number] Ordering Dr: Subhash harrison,Out o. PROCEDURE: LUMBAR SPINE 2 OR [...] relationship to S1. Thereis a proximally 2 mmof anterolisthesis of L4 in relationship to L5. [...] disc spaces. This is most pronounced at theL5-S1 disc space. Recommendation: An MRI of the lumbar spine may be of value for further evaluation of the disc spaceand nerve roots in this patient who has having increasing low back pain with radiculopathy type symptomsand abnormal plain film findings. Reading Location: [id number] CC: ESHA READ; Dr. Krystina Calle DO ~ Scaffold Setter: Signed [facility]03-27-2025 History of Present illness Narrative* ReadFrancisco askewna - 06/18/2024 10:30 AM EDT Diagnosis: 1) Chronic phase CML. [...] since hadn't had in a year) at [facility] and incidental leukocytosis with WBC count 135.68K. Hgb and platelets normal. Recheck at [facility] 07/21/2022 revealed total white count 131.8 thousand. [...] symptom for her. -She was rotated to [facility] so she can resume PPI. Started about [...] plan for xray to be done at [facility] - also recommended establishing with ortho for chronic spinal issues. - follow up pending XR, otherwise keep future appts as scheduled Esha Read APRN.WAREHOUSE UNLOADER I spent a total of 35 minutes on the date of the service which included preparing to see the patient, [id number] patient care, completing clinical documentation, obtaining and/or [...] evaluation of this patient. [facility]2025 NoteHNO ID: [id number] Author: ESHA READ, ? Service: ? Author [...] since hadn't had in a year) at [facility] and incidental leukocytosis with WBC count 135.68K. Hgb and platelets normal. Recheck at [facility] 07/21/2022 revealed total white count 131.8 thousand. [...] plan for xray to be done at [facility] - also recommended establishing with ortho for chronic spinal issues. - follow up pending XR, otherwise keep future appts as scheduled Esha Read APRN.WAREHOUSE UNLOADER I spent a total of 35 minutes on the date of the service which included preparing to see the patient, [id number] patient care, completing clinical documentation, obtaining and/or reviewing separately obtained history, performing a medically appropriate examination, and orderi (more content not included)...[facility]03-24-2025 Telephone encounter Note* Telephone Encounter - Judith Ramires - 06/15/2024 5:03 PM EDT I called and spoke to Pepper and schedule her to see Esha Read on 06/18/24 she was schedule already that day for blood pressure check Patient confirmed this date and time Judith Yeboah [facility]03-24-2025 Miscellaneous Notes* Telephone Encounter - Judith Ramires - 06/15/2024 5:03 PM EDT I called and spoke to Libia and schedule her to see Esha Read on 06/18/24 she was schedule already that day for blood pressure check Patient confirmed this date and time Judith Yeboah * Telephone Encounter - Fabiano Liz DO - 06/15/2024 4:55 PM EDT That's good. Can we set up OV with ROUTE VENDING MACHINE SERVICER to assess back pain further? Fabiano Liz DO * Telephone Encounter - Ligia Mtz RN - 06/15/2024 4:12 PM EDT Copied from [facility]: LIPASE 18 13-75 U/L Please note: LIPASE revised reference range effective 22. New Lipase methodology. Expected to produce lower values than the previous assay method. NEW Reference Range: 13 - 75 U/L Ligia Mtz RN * Telephone Encounter - Ligia Mtz RN - 06/15/2024 11:42 AM EDT Patient would like to have lab checked at [facility]. Order faxed. Patient informed of Dr. Liz's response and stated understanding. Ligia Mtz RN * Telephone Encounter - Fabiano Liz DO - 06/15/2024 11:39 AM EDT Thank you. Order filed. If lipase is normal then we will obtain plain film x- rays and schedule an ROUTE VENDING MACHINE SERVICER visit. Fabiano Liz DO * Telephone Encounter - Ligia Mtz RN - 06/15/2024 11:[address] Liz would like to check a lipase today. Called patient, no answer, left a requesting a call back. Order pended. Ligia Mtz RN * Telephone Encounter - Ligia Mtz RN - 06/15/2024 10:55 AM EDT ORAL ANTI-CANCER AGENTS FOLLOW-UP PHONE [...] if unable to comply. Ligia Mtz RN * Telephone Encounter - Ligia Mtz RN - 06/12/2024 12:57 PM EDT ORAL ANTI-CANCER AGENTS FOLLOW-UP PHONE CALL/VISIT Called patient, no answer, left a VM requesting a call back from patient. Ligia Mtz RN [facility] Telephone encounter Note * Telephone Encounter - Fabiano Liz DO - 06/15/2024 4:55 PM EDT That's good. Can we set up OV with ROUTE VENDING MACHINE SERVICER to assess back pain further? Fabiano Liz DO [facility]03-24-2025 Telephone encounter Note* Telephone Encounter - Ligia Mtz RN - 06/15/2024 4:12 PM EDT Copied from [facility]: LIPASE 18 13-75 U/L Please note: LIPASE revised reference range effective 22. New Lipase methodology. Expected to produce lower values than the previous assay method. NEW Reference Range: 13 - 75 U/L Ligia Mtz RN [facility]03-24-2025 Telephone encounter Note* Telephone Encounter - Ligia Mtz RN - 06/15/2024 11:42 AM EDT Patient would like to have lab checked at [facility]. Order faxed. Patient informed of Dr. Liz's response and stated understanding. Ligia Mtz RN [facility]03-24-2025 Telephone encounter Note* Telephone Encounter - Fabiano Liz DO - 06/15/2024 11:39 AM EDT Thank you. Order filed. If lipase is normal then we will obtain plain film x- rays and schedule an ROUTE VENDING MACHINE SERVICER visit. Fabiano Liz DO [facility]03-24-2025 Telephone encounter Note* Telephone Encounter - Ligia Mtz RN - 06/15/2024 11:[address] Liz would like to check a lipase today. Called patient, no answer, left a VM requesting a call back. Order pended. Ligia Mtz RN [facility]03-24-2025 Telephone encounter Note* Telephone Encounter - Ligia Mtz RN - 06/15/2024 10:55 AM EDT ORAL ANTI-CANCER AGENTS FOLLOW-UP PHONE [...] if unable to comply. Ligia Mtz RN [facility]03-21-2025 Telephone encounter Note* Telephone Encounter - Ligia Mtz RN - 06/12/2024 12:57 PM EDT ORAL ANTI-CANCER AGENTS FOLLOW-UP PHONE CALL/VISIT Called patient, no answer, left a VM requesting a call back from patient. Ligia Mtz RN [facility]02-19-2025 Telephone encounter Note* Telephone Encounter - Alisha Romero LPN - 05/13/2024 11:48 AM EST Patient states she is taking potassium 10 meq, 2 tabs, once a day (20 meq). She is only taking Lasix prn and it's been a while since she's used that. Alisha Romero LPN [facility]02-19-2025 Miscellaneous Notes* Telephone Encounter - Alisha Romero LPN - 05/13/2024 11:48 AM EST Patient states she is taking potassium 10 meq, 2 tabs, once a day (20 meq). She is only taking Lasix prn and it's been a while since she's used that. Alisha Romero LPN documented in this [facility]02-[facility]-2025 Miscellaneous Notes* Telephone Encounter - Kathrine Ji LPN - 05/13/2024 8:39 AM EST Refill request received from [facility] Next follow up 11/04/24 documented in this encounterTr[facility]02-[facility]-2025 Telephone encounter Note * Telephone Encounter - Kathrine Ji LPN - 05/13/2024 8:39 AM EST Refill request received from [facility] Next follow up 11/04/24 [facility]02-11-2025 Telephone encounter Note* Telephone Encounter - Ligia Mtz RN - 05/05/2024 3:11 PM EST ORAL ANTI-CANCER AGENTS EDUCATION patient called today [...] teaching topics as needed. Ligia Mtz RN [facility]02-11-2025 Miscellaneous Notes* Telephone Encounter - Ligia Mtz RN - 05/05/2024 3:11 PM EST ORAL ANTI-CANCER AGENTS EDUCATION patient called today [...] reinforcement of teaching topics as needed. Ligia Mtz, WENDIE documented in this encounterTr[facility]02[facility]25 History of Present illness Narrative* Mila RestrepoCrowd PlayMargaret Denton - 04/28/2024 7:58 AM EST [facility] received prescription(s) for Scemblix [address] Liz's office. Benefits investigation was conducted, indicating that a prior authorization is required by patient's insurance plan with [employer]- [employer]. Encounter will be updated once prior authorization has been submitted by [facility]. Margaret Zaragoza [facility] documented in this encounterTr[facility]ull [facility]02-04-2025 NoteHNO ID: [id number] Author: JEFFERSON VUONG [facility] Service: ? Author Type: Pharmacist Type: Progress Notes Filed: 06/01/2024 11:47 Note Text: [facility] received prescription(s) for asciminib from Dr. Liz's office. Benefits investigation was conducted, indicating that a prior authorization is required. PA was approved with details listed below: Plan Name: MedBen / Rx Benefits Commercial PA reference number: Prior Auth (EOC) ID: [id number] Approval Dates: 05/27/24 - 05/26/25 Pt's copay [...] of gallbladder 09/07/2009 Chau Preston MD No Application Helper Assessment Patient confirmed: Yes Med/dose confirmed: Yes Supplies needed: Welcome packet Missed doses: No Estimated days supply on hand: 0 Next cycle/dose due: (Per Dr. Liz's discretion) Copay amount: 30 Copay form of payment: (Copay Card) Payment confirmed: Yes Delivery method: FedEx Signature required: Waived on patient request Delivery address: [address] [place] [address] Delivery date: 06/02/24 Questions or concerns for the pharmacist?: Yes Patient questions/concerns: Medication cost, Co-pay/assistance programs, Medication dose, Medication route, Medication storage, Side effects, Delivery Did you have any side effects believed to be related to this medication, that resulted in hospitalization?: No [facility] RX SPECIALTY CLINICAL ASSESSMENT - HEMATOLOGY [...] G3/4 - Cardio toxicity (ischemic cardiac and FINANCIAL SERVICES TECHNICIAN events, thrombotic and embolic events, HF reported) - GI Toxici (more content not included)...[facility]02-04-2025 NoteHNO ID: [id number] Author: MARIE MALHOTRA RP Service: ? Author Type: Pharmacist Type: Progress Notes Filed: 06/09/2024 16:42 Note Text: [facility] Discontinuation Assessment: Disease group: Oral Oncology/Hematology Medication: SCEMBLIX ORAL Discontinue reason: Change of pharmacy Chart notes indicate patient is filling through [facility] pharmacy, office already sent rx. No further follow-up required from [facility]. Marie Malhotra, PharmD, BCACP, BCOP Clinical Pharmacist, Oncology [facility] P: , F: Pool: P [facility] Pool #: [id number]02-04-2025 NoteHNO ID: [id number] Author: ?, ?, ? Service: ? Author Type: ? Type: Progress Notes Filed: 04/28/2024 08:03 Note Text: [facility] received prescription(s) for Scemblix [address] Liz's office. Benefits investigation was conducted, indicating that a prior authorization is required by patient's insurance plan with [employer]. Encounter will be updated once prior authorization has been submitted by [facility]. Margaretroseline Zaragoza [facility]02-04-2025 NoteHNO ID: [id number] Author: MARIE MALHOTRA RPh Service: ? Author Type: Pharmacist Type: Progress Notes Filed: 05/28/2024 09:33 Note Text: [facility] received prescription(s) for asciminib (Scemblix) from Agusto's office. Benefits investigation was conducted, indicating that a prior authorization is required. PA was initiated and pending review. Plan Name: MedBen / Rx Benefits Commercial (Prompt PA portal: [email or web address] Case: Prior Auth (EOC) ID: [id number] Timeline: Urgent Esperanza Seay PharmD, BCPS, BCOP Clinical Coordinator, Specialty Pharmacy [facility] P: , F: Pool: P [facility] Pool #: [id number] Addendum May 28, 2024 5:47 AM : PA approved but unclear for how long. Will await letter and if not received by next week this pharmacist will check chart and call for dates. Esperanza Seay PharmD, BCPS, BCOP Clinical Coordinator, Specialty Pharmacy [facility] P: , F: Pool: P [facility] Pool #: [id number] David CraigD, BCACP, BCOP Clinical Pharmacist, Oncology [facility] P: , F: Pool: P [facility] Pool #: [id number]02-03-2025 NoteHNO ID: [id number] Author: FABIANO LIZ, DO Service: ? Author [...] since hadn't had in a year) at [facility] and incidental leukocytosis with WBC count 135.68K. Hgb and platelets normal. Recheck at [facility] 07/21/2022 revealed total white count 131.8 thousand. [...] and edited and updated as necessary. Fabiano Liz, [facility]02-03-2025 History of Present illness Narrative* Fabiano Liz, DO - 04/27/2024 8:21 AM EST Diagnosis: 1) Chronic phase CML. [...] since hadn't had in a year) at [facility] and incidental leukocytosis with WBC count 135.68K. Hgb and platelets normal. Recheck at [facility] 07/21/2022 revealed total white count 131.8 thousand. [...] history. The note has been reviewed and editedand updated as necessary. Fabiano Liz DO documented in this encounterTrumbull Regional Medical Center12-02-2024 Evaluation note* Diagnosis Onset Date Resolution Status Admit Date Climacteric acute February 24, 2024 9:00am Encounter for routine gynecological examination noneactive [facility] 2023 9:00am [facility] Work Phone: [phone] 221-961611-07-2024 NoteHNO ID: [id number] Author: DEVIKA BRUSH APRN.WAREHOUSE UNLOADER Service: ? Author Type: Nurse Practitioner Type: [...] since hadn't had in a year) at [facility] and incidental leukocytosis with WBC count 135.68K. Hgb and platelets normal. Recheck at [facility] 07/21/2022 revealed total white count 131.8 thousand. [...] suspicious rashes or lesions LABS: Latest Ref Rn 10/23/2023 01/30/2024 WBC 3.70 - 11.00 k/uL [...] Lymph 1.00 - 4.00 k/uL 1.59 1.54 Boyle% % 5.5 5.3 Abs Boyle <0.87 k/uL 0.52 0.49 Eosin% % 1.6 2.9 Abs Eosin <0.46 k/uL 0.15 0.27 Baso% % 0.5 0.8 Abs Baso <0.11 k/uL 0.05 0.07 Immature Gran % % 0.2 0.4 IMMATURE GRANS (ABS) <0.10 k/uL <0.03 0.04 NRBC /100 WBC 0.0 0.0 Absolute nRBC <0.01 k/uL <0.01 <0.01 DTYPE Auto Auto Latest Ref [facility] 10/23/2023 01/30/2024 Protein, Total 6.3 - 8.0 [...] as necessary for today's visit. Devika Brush APRN.CNPMercy Health [facility]11-07-2024 History of Present illness Narrative* Devika Brush APRN.WAREHOUSE UNLOADER - 01/30/2024 8:15 AM EST Chief Complaint [...] since hadn't had in a year) at [facility] and incidental leukocytosis with WBC count 135.68K. Hgb and platelets normal. Recheck at [facility] 07/21/2022 revealed total white count 131.8 thousand. [...] Lymph 1.00 - 4.00 k/uL 1.59 1.54 Boyle% % 5.5 5.3 Abs Boyle <0.87 k/uL 0.52 0.49 Eosin% % 1.6 [...] as necessary for today's visit. Devika Brush APRN.CNP documented in this encounterTrumbull Regional Medical Center08-19-2024 Telephone encounter Note * Telephone Encounter - [...] Reinoso LPN November 11, 2023 7:53 AM [facility]08-19-2024 Miscellaneous Notes* Telephone Encounter - Gia Reinoso [...] 11, 2023 7:53 AM documented in this encounterTrumbull Regional Medical Center08-12-2024 Telephone encounter Note * Telephone Encounter - Alisha Romero LPN - 11/04/2023 3:26 PM EDT Per OV note 10/30/2023- Intolerant to oral iron. Iron study result received from [facility]. Patient is iron deficient. Patient prefers to have her iron infusions at [facility] d/t insurance. Orders and demographics faxed to [facility] Infusion Suite. Patient is aware. Alisha Romero LPN [facility]08-12-2024 Miscellaneous Notes* Telephone Encounter - Alisha Romero LPN - 11/04/2023 3:26 PM EDT Per OV note 10/30/2023- Intolerant to oral iron. Iron study result received from [facility]. Patient is iron deficient. Patient prefers to have her iron infusions at [facility] d/t insurance. Orders and demographics faxed to [facility] Infusion Suite. Patient is aware. Alisha Romero LPN documented in this encounterTrumbull Regional Medical Center08-07-2024 History of Present illness Narrative* [...] since hadn't had in a year) at [facility] and incidental leukocytosis with WBC count 135.68K. Hgb and platelets normal. Recheck at [facility] 07/21/2022 revealed total white count 131.8 thousand. [...] currently. SKIN: No jaundice. LABS: Latest Ref [facility] 10/23/2023 WBC 3.70 - 11.00 k/uL 9.47 [...] Abs Lymph 1.00 - 4.00 k/uL 1.59 Boyle% % 5.5 Abs Boyle <0.87 k/uL 0.52 Eosin% % 1.6 Abs [...] which included preparing to see the patient, [id number] patient care, completing clinical documentation, obtaining and/or reviewing separately obtained history, performing a medically appropriate examination, counseling and educating the pat ient/family/caregiver, ordering medications, tests, or procedures, communicating with other HCPs (not separately reported), and communicating results to the patient/family/caregiver. Fabiano Liz DO documented in this encounterTrumbull Regional Medical Center07-11-2024 Telephone encounter Note * Telephone Encounter - [...] If using Lasix BID Devika Brush APRN.CNP [facility]07-11-2024 Miscellaneous Notes* Telephone Encounter - Devika Brush [...] If using Lasix BID Devika Brush APRN.CNP * Telephone Encounter - Alisha Romero LPN - 10/03/2023 10:06 AM EDT Please send Rx. Alisha Romero LPN * Telephone Encounter - Sona Carlos - 10/03/2023 9:50 AM EDT Patient calling on status of refills to be sent to [facility] Pharm. * Telephone Encounter - Alisha Romero LPN - 09/30/2023 10:53 AM EDT It doesn't look like we prescribe the levothyroxine. Alisha Romero LPN documented in this encounterTrumbull Regional Medical Center07-11-2024 Telephone encounter Note * Telephone Encounter - Alisha Romero LPN - 10/03/2023 10:06 AM EDT Please send Rx. Alisha Romero LPN [facility]07-11-2024 Telephone encounter Note* Telephone Encounter - Sona Carlos - 10/03/2023 9:50 AM EDT Patient calling on status of refills to be sent to [facility] Pharm. [facility]07-08-2024 Telephone encounter Note* Telephone Encounter - Alisha Romero LPN - 09/30/2023 10:53 AM EDT It doesn't look like we prescribe the levothyroxine. Alisha Romero LPN [facility]05-07-2024 Telephone encounter Note* Telephone Encounter - Devika Brush APRN.CNP - 07/30/2023 12:58 PM EDT Please schedule follow up OV with Dr. Liz in 3 months with same labs as on 07/16. Thank you. Devika Brush APRN.[place] [facility]05-07-2024 Miscellaneous Notes* Telephone Encounter - Devika Brush APRN.CNP - 07/30/2023 12:58 PM EDT Please schedule follow up OV with Dr. Liz in 3 months with same labs as on 07/16. Thank you. Devika Brush APRN.[place] documented in this encounterTrumbull Regional Medical Center05-07-2024 Telephone encounter Note * Telephone Encounter - Ligia Mtz RN - 07/30/2023 12:28 PM EDT See MC message. Ligia Mtz RN [facility]05-07-2024 Miscellaneous Notes* Telephone Encounter - Ligia Mtz [...] pt. Devika Brush APRN.CNP documented in this encounterTrumbull Regional Medical Center05-06-2024 Telephone encounter Note * Telephone Encounter - Devika Brush APRN.CNP - 07/29/2023 2:59 PM EDT Pt. prefers [facility] for future refills of bosutinib. Devika Brush APRN.CNP [facility]05-06-2024 Miscellaneous Notes* Telephone Encounter - Devika Brush APRN.CNP - 07/29/2023 2:59 PM EDT Pt. prefers [facility] for future refills of bosutinib. Devika Brush APRN.CNP documented in this encounterTrumbull Regional Medical Center05-06-2024 Telephone encounter Note * Telephone Encounter - Devika Brush APRN.CNP - 07/29/2023 2:34 PM EDT Left VM for pt. re:her labs last week and discussing plan with Dr. Liz. Advised pt. to call/my chart back with her decision on keeping current treatment or pricing Sprycel. Current therapy is very expensive out of pocket for pt. Devika Brush APRN.CNP [facility]05-02-2024 History of Present illness Narrative* Beatris Saba [...] PATIENT PRESENTS WITH AN IMPLANTABLE OR ATTACHED INTERACTIVE MARKETING STRATEGIST: No RADIOLOGY DEPARTMENT: General X-ray: Exam(s) Completed: Lower Extremity X- Ray(s): Femur, Left PERIPHERAL IV DATA: Not applicable SIGNED BY: RT Velma(R) July 25, 2023 9:03 AM documented in this encounterTrumbull Regional Medical Center05-02-2024 History of Present illness Narrative* Devika Brush APRN.WAREHOUSE UNLOADER - 07/25/2023 8:28 AM EDT Chief Complaint [...] since hadn't had in a year) at [facility] and incidental leukocytosis with WBC count 135.68K. Hgb and platelets normal. Recheck at [facility] 07/21/2022 revealed total white count 131.8 thousand. [...] 1.00 - 4.00 k/uL 1.86 1.53 1.66 Boyle% % 6.9 5.5 7.2 Abs Boyle <0.87 k/uL 0.59 0.36 0.50 Eosin% % [...] as necessary for today's visit. Devika Brush APRN.WAREHOUSE UNLOADER documented in this encounterTrumbull Regional Medical Center04-22-2024 Telephone encounter Note * Telephone Encounter - [...] need to notify patient. Gia Reinoso LPN [facility]04-22-2024 Miscellaneous Notes* Telephone Encounter - Gia Reinoso [...] patient. Gia Reinoso LPN documented in this encounterTrumbull Regional Medical Center03-20-2024 Miscellaneous Notes* Telephone Encounter - Ligia Mtz [...] understanding. Ligia Mtz RN documented in this encounterTrumbull Regional Medical Center03-19-2024 History of Present illness Narrative* Bee Patterson PA-C - 06/11/2023 2:18 PM EDT This note was created using OpenGov. Shiva Olivas is a 48 year old [...] CHOLECYSTECTOMY W/CHOLANGIOGRAPHY 09/06/2009 Normal IOC LASIK Bilateral 2007 FAMILY HISTORY Problem Relation Age of Onset [...] INFLUENZA A/B & RSV NAAT, ROUTINE Bee Patterson PA-C documented in this encounterTrumbull Regional Medical Center03-19-2024 Miscellaneous Notes* Telephone Encounter - Ligia Mtz RN - 06/11/2023 8:54 AM EDT Care Coordination Triage Note [facility] Situation: Patient reports Cough/Respiratory Concerns/SOB, Fever, and [...] Patient instructed to send this nurse a MC message with an update after she is evaluated today. Patient stated understanding. Have you been around anyone diagnosed with strep or the flu/influenza? 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 Have you been tested for covid? Yes, negative today. Recommendations: Per RNCC, patient directed to: express/urgent care. Send MC message with an update. Ligia Mtz RN June 11, 2023 9:01 AM documented in this encounterTrumbull Regional Medical Center03-11-2024 Miscellaneous Notes* Telephone Encounter - Gia Reinoso LPN - 06/03/2023 8:50 AM EDT PA obtained for Bosulif 400 mg daily. 05/31/2023 thru 05/29/2024 Gia Reinoso LPN documented in this encounterTrumbull Regional Medical Center03-07-2024 Miscellaneous Notes* Telephone Encounter - Fabiano Liz [...] [facility]. Alisha Romero LPN documented in this encounterTrumbull Regional Medical Center02-02-2024 History of Present illness Narrative* Ángela Johnson [...] PATIENT PRESENTS WITH AN IMPLANTABLE OR ATTACHED INTERACTIVE MARKETING STRATEGIST: No RADIOLOGY DEPARTMENT: General X-ray: Exam(s) Completed: Chest X-Ray PERIPHERAL IV DATA: Not applicable SIGNED BY: RT Stanford(R) April 26, 2023 9:38 AM documented in this encounterTrumbull Regional Medical Center02-02-2024 History of Present illness Narrative* Fabiano Liz [...] since hadn't had in a year) at [facility] and incidental leukocytosis with WBC count 135.68K. Hgb and platelets normal. Recheck at [facility] 07/21/2022 revealed total white count 131.8 thousand. [...] visual acuity rather abruptly--about 2 weeks. Saw parole agent. No structural abnormality of eye. Got new Rx and okay now. Legs well end of day. 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. Down in the mornings. Diarrhea off [...] Abs Lymph 1.00 - 4.00 k/uL 1.53 Boyle% % 5.5 Abs Boyle <0.87 k/uL 0.36 Eosin% % 2.1 Abs [...] necessary. Fabiano Liz DO documented in this encounterTrumbull Regional Medical Center11-13-2023 Miscellaneous Notes* Telephone Encounter - Gia Reinoso [...] response. Fabiano Liz DO documented in this encounterTrumbull Regional Medical Center10-06-2023 Miscellaneous Notes* Telephone Encounter - Alisha Romero LPN - 12/28/2022 1:07 PM EDT Patient notified that Rx was sent in to [facility] in [place] as requested. Alisha Romero LPN documented in this encounterTrumbull Regional Medical Center10-06-2023 Miscellaneous Notes* Telephone Encounter - Gia Reinoso [...] patient. Gia Reinoso LPN documented in this encounterTrumbull Regional Medical Center08-02-2023 Miscellaneous Notes* Telephone Encounter - Alisha Romero LPN - 10/24/2022 9:39 AM EDT Order and demographics faxed to [facility]. Alisha Romero LPN * Telephone Encounter - Sona Carlos - 10/24/2022 9:32 AM EDT Message relayed to patient. She is requesting order to be faxed to [facility] for Echo * Telephone Encounter - Alisha Romero LPN - 10/24/2022 8:54 AM EDT Message left on patient's VM asking her to contact the office. IT Trading[employer] message also sent. Alisha Romero LPN * [...] to further evaluate. Can be done at [facility] if better for her. Still awaiting molecular testing which may take several more days. Fabiano Liz DO documented in this encounterTrumbull Regional Medical Center07-31-2023 History of Present illness Narrative* Fabiano Liz [...] since hadn't had in a year) at [facility] and incidental leukocytosis with WBC count 135.68K. Hgb and platelets normal. Recheck at [facility] 07/21/2022 revealed total white count 131.8 thousand. [...] 4.00 k/uL 9.41 (H) 1.48 1.55 1.83 Boyle% % 8.0 10.6 9.5 7.1 Abs Boyle <0.87 k/uL 12.55 (H) 0.75 0.68 0.60 Eosin% % 5.0 6.9 1.8 3.2 Abs Eosin <0.46 k/uL 7.84 (H) 0.49 (H) 0.13 0.27 Baso% % 6.0 1.7 1.1 1.0 Abs Baso <0.11 k/uL 9.41 (H) 0.12 (H) 0.08 0.08 [place]% % 6.0 Myelo% % 10.0 Blast <=0.0 [...] which included preparing to see the patient, [id number] patient care, completing clinical documentation, obtaining and/or reviewing separately obtained history, performing a medically appropriate examination, counseling and educating the pat ient/family/caregiver, ordering medications, tests, or procedures, communicating with other HCPs (not separately reported), and communicating results to the patient/family/caregiver. Fabiano Liz DO documented in this encounterTrumbull Regional Medical Center06-29-2023 Miscellaneous Notes* Telephone Encounter - Ligia Mtz RN - 09/20/2022 4:29 PM EDT Patient informed of Dr. Liz's verbal response, stated understanding. Patient informed to contact her dentist if she has any worsening s/s. Patient stated understanding. Ligia Mtz RN documented in this encounterTrumbull Regional Medical Center06-08-2023 Miscellaneous Notes* Telephone Encounter - Alisha Romero [...] CMP. Fabiano Liz DO documented in this encounterTrumbull Regional Medical Center06-06-2023 Miscellaneous Notes* Telephone Encounter - Ligia Mtz [...] [facility] Patient stated she is prone to yeast infections if she goes on antibiotics;per jesu diflucan and Bosutinib should be avoided. Patient advised to milk pickup truck driver monistat (if prescribed antibiotics), increase probiotics and space out 2 hours apart from antibiotics, and eat yogurt . Patient stated understanding. This nurse will review express care notes tomorrow. Ligia Mtz RN * Telephone Encounter - Ligia Mtz RN - 08/27/2022 4:05 PM EDT [facility] Care Coordination FOLLOW-UP NOTE Patient [...] 27, 2022 * Telephone Encounter - Sona Yeboah - 08/27/2022 10:26 AM EDT Patient called to update. Phone rings busy. Please call when able. * Telephone Encounter - Ligia Mtz RN - 08/23/2022 4:32 PM EDT [facility] Care Coordination FOLLOW-UP NOTE Patient [...] RN August 23, 2022 documented in this encounterTrumbull Regional Medical Center06-05-2023 History of Present illness Narrative* Beatris Saba [...] 27, 2022 5:29 PM documented in this encounterTrumbull Regional Medical Center06-05-2023 History of Present illness Narrative* Lori Solano APRN.WAREHOUSE UNLOADER - 08/27/2022 5:14 PM EDT This note was created using NoteWriter. Subjective Libia Olivas is a 47 year [...] been using Zyrtec She is leaving for [place] this . The history is provided by the patient. No mult au matic operator was used. Cough This is a new [...] - gastritis, mild reflux esophagitis HYSTERECTOMY HX 2013 LAPS SURG CHOLECYSTECTOMY W/CHOLANGIOGRAPHY 09/06/2009 Normal IOC [...] visualized and normal. Hearing improved. Lori Solano APRN.WAREHOUSE UNLOADER documented in this encounterTrumbull Regional Medical Center05-31-2023 Miscellaneous Notes* Telephone Encounter - Sona Berrios [...] F or higher. Patient stated understanding. Ligia Doup, RN * Telephone Encounter - Ligia Mtz [...] comply. Ligia Mtz RN documented in this encounterTrumbull Regional Medical Center05-11-2023 Miscellaneous Notes* Telephone Encounter - Fabiano Liz DO - 08/02/2022 10:50 PM EDT The following approved medication requests have been transmitted electronically. Requested Prescriptions Signed Prescriptions Disp Refills bosutinib (BOSULIF) 400 mg tablet 30 tablet 5 Sig: Take 1 tablet (400 mg) by mouth once daily with food. Authorizing Provider: FABIANO LIZ DO * Telephone Encounter - Vilma Naqvi RPh - 08/02/2022 2:22 PM EDT Prior authorization was approved for Bosulif. Plan Name: [employer] [place] reference number: [id number] Approval Dates: 07/01/2022 - 07/31/2023 However, s/he is required to use [facility] to fill this medication. Will queue prescription(s) to go to designated specialty pharmacy. For reference, their pharmacy phone number is [phone]. No further action by [facility]. Vilma Naqiv, PharmD Clinical Pharmacist, Oncology [facility] P: , F: Pool: P [facility] Pool #: [id number] documented in this encounterTrumbull Regional Medical Center05-04-2023 History of Present illness Narrative* Margaret Zorzi ([employer]) - 07/26/2022 2:52 PM EDT [facility] received prescription(s) for Bosulif from Dr. Liz's office. Benefits investigation was conducted, indicating that a prior authorization is required by patient's insurance plan with [employer]. Encounter will be updated once prior authorization has been submitted by [facility]. Margaret Zaragoza LEAD NURSE documented in this encounterTrumbull Regional Medical Center05-04-2023 Miscellaneous Notes* Telephone Encounter - Gia Marsh [...] pharmacy. Fabiano Liz DO documented in this encounterTrumbull Regional Medical Center05-03-2023 Miscellaneous Notes* Telephone Encounter - Gia Marsh [...] office. Gia Marsh LPN documented in this encounterTrumbull Regional Medical Center05-03-2023 Procedure note* Fabiano Liz DO - 07/25/2022 1:13 PM EDTAssociated Order(s): BONE MARROW BIOPSY Post-Procedure Diagnose(s): Bandemia BEDSIDE PROCEDURE NOTE BONE MARROW BIOPSY Performed by: Fabiano Liz DO Authorized by: Fabiano Liz DO Where was Patient When this Procedure was Performed [facility] Informed Consent Consent Obtained: Written [place] Protocol A moment to CARE was completed. SIGN IN Personnel directly involved with the procedure wore the appropriate PPE. Special Equipment: Yes (OnControl biopsy system) Patient/Surrogate Stated/Verified: Patient name, Date [...] Site: Right posterior sperior iliac crest . OnCComQi biopsy system was used. Using aseptic technique, [...] 2022 TIME: 1:13 PM documented in this encounterTrumbull Regional Medical Center05-03-2023 History of Present illness Narrative* Claudia Foote RN - 07/25/2022 1:00 PM EDT Pt discharged to home with after BMBX with dry sterile dressing in place. No drainage noted. Post-procedure care reviewed with patient. Pt to call with any complaints of redness, swelling, increased or unresolved pain, bleeding, chills, bruising, and/or fever. Pt verbalized understanding. Claudia Foote RN [facility] History of Present illness Narrative* Fabiano Liz [...] since hadn't had in a year) at [facility] and incidental leukocytosis with WBC count 135.68K. Hgb and platelets normal. Recheck at [facility] 07/21/2022 revealed total white count 131.8 thousand. [...] - gastritis, mild reflux esophagitis HYSTERECTOMY HX 2013 LAPS SURG CHOLECYSTECTOMY W/CHOLANGIOGRAPHY 09/06/2009 Normal IOC [...] No jaundice or rash. No petechiae. NEUROLOGIC: successfactors consultant II-XII are grossly intact. No focal motor [...] Lymph 1.00 - 4.00 k/uL 4.22 (H) Boyle% % 11.0 Abs Boyle <0.87 k/uL 15.49 (H) Eosin% % 2.0 Abs Eosin <0.46 k/uL 2.82 (H) Baso% % 1.0 Abs Baso <0.11 k/uL 1.41 (H) [place]% % 6.0 Myelo% % 17.0 Blast <=0.0 [...] B Core Ab, Total Negative Negative ASSESSMENT/PLAN: (D72.105) Bandemia (primary encounter diagnosis) Assessment: -The patient is a 47-year-old female recently incidentally found to have leukocytosis with immaturegranulocytes and mild splenomegaly suggestive of CML. She has not had any bleeding or bruising issues. No recent illnesses. No fever, night sweats or early satiety. -I reviewed her recent CBC and differential done at [facility] and discussed the work- up with [...] which included preparing to see the patient, [id number] patient care, completing clinical documentation, obtaining and/or reviewing separately obtained history, performing a medically appropriate examination, counseling and educating the pat ient/family/caregiver, communicating with other HCPs (not separately reported), independently interpreting results (not separately reported), and communicating results to the patient/family/caregiver. Fabiano Liz DO documented in [facility] Miscellaneous Notes* Telephone Encounter - Alisha Romero LPN - 07/24/2022 8:53 AM EDT Patient read IT Tradingt message. Alisha Romero LPN * Telephone Encounter - Fabiano Liz DO - 07/23/2022 6:06 PM EDT Her uric acid is elevated. Please advise her to start allopurinol 300 mg tablet once daily beginning tomorrow if possible. Fabiano Liz DO documented in this encounterTr[facility]23 Miscellaneous Notes* Telephone Encounter - Alisha Romero [...] cell phone when you are able at [phone] [facility] documented in this encounterEl [facility] ClinicEvaluation noteNo assessment information availableWMorrow County Hospital Work Phone: Evaluation note* Diagnosis Onset Date Resolution Status BMI 39.0-39.9,adult acute Climacteric acute Other obesity acute Encounter for routine gynecological examination noneactive [facility] Work Phone: Evaluation note* Diagnosis Onset Date Resolution Status BMI 39.0-39.9,adult acute Climacteric acute Other obesity acute Encounter for routine gynecological examination noneactive BMI 39.0-39.9,adult acute Climacteric acute GERD (gastroesophageal reflux disease) acute Other obesity acute [facility] Work Phone: Evaluation note* Diagnosis Onset Date Resolution Status Climacteric acute GERD (gastroesophageal reflux disease) acute Other obesity acute Other obesity acute BMI 37.0-37.9, adult acute GERD (gastroesophageal reflux disease) acute Other obesity acute [facility] Work Phone: Evaluation note* Diagnosis Other elevated [...] disease) acute Hypercholesterolemia acute Other obesity acute [facility] Work Phone: Evaluation note* Diagnosis CML (chronic [...] Date Resolution Status Breast mass, right acute [facility] Work Phone: Evaluation note* Diagnosis CML (chronic [...] Diagnosis Onset Date Resolution Status Climacteric acute [id number] acute [facility] Work Phone: Evaluation note* Diagnosis CML (chronic [...] having achieved remission documented [facility]* Diagnosis CML (chronic myelocytic leukemia) (HCC)- Primary Chronic myeloid leukemia, without mention of having achieved remission [facility]* Diagnosis Acute bilateral low back pain with right-sided sciatica- Primary CML (chronic myelocytic leukemia) (HCC) Chronic myeloid leukemia, without mention of having achieved remission [facility] Diagnosis Spinal stenosis of lumbar region, unspecified whether neurogenic claudication present- Primary [facility]* Diagnosis CML (chronic myelocytic leukemia) (HCC)- Primary Chronic myeloid leukemia, without mention of having achieved remission Gastroesophageal reflux disease, unspecified whether esophagitis present Sciatica, right side [facility]* Diagnosis CML (chronic myelocytic leukemia) (HCC)- Primary Chronic myeloid leukemia, without mention of having achieved remission [facility] Diagnosis CML (chronic myelocytic leukemia) (HCC)- Primary Chronic myeloid leukemia, without mention of having achieved remission [facility] Diagnosis CML (chronic myelocytic leukemia) (HCC)- Primary Chronic myeloid leukemia, without mention of having achieved remission Microcytic anemia Iron deficiency anemia, unspecified Gastroesophageal reflux disease, unspecified whether esophagitis present documented in this encounter [facility] for referral (narrative)* Outpatient Procedure (Routine) - Pending Review Specialty Diagnoses / Procedures Referred By Contac t Referred To [facility] Diagnoses CML (chronic myeloid leukemia) (HCC) Encounter for monitoring cardiotoxic drug therapy Procedures ECHO ECHO TTHRC R-T 2D W/WOM-MODE COMPL SPEC&COLR D Fabiano Liz DO [address] [place] [address] [facility] [place] [address] [place] [address] Referral ID Status Reason Start Date Expiration Date Visits Requested Visits Authorized [id number] Pending Review Auto-Generat ed Referral 10/24/2022 10/24/2023 1 1 [facility] for referral (narrative)* Outpatient Procedure (Routine) - Closed Specialty Diagnoses / Procedures Referred By Contac t Referred [facility] Diagnoses CML (chronic myelocytic leukemia) (HCC) Procedures ECHO ECHO TTHRC R-T 2D W/WOM-MODE COMPL SPEC&COLR D Fabiano Liz, DO [address] [place] [address] [facility] [place] [address] [place] [id number] Referral ID Status Reason Start Date Expiration Date V isits Requested Visits Authorized [id number] Closed Auto-Generate d Referral 04/26/2023 03/24/2024 1 1 * Outpatient Procedure (Routine) - Closed Specialty Diagnoses / Procedures Referred By Contac t Referred To [facility] Diagnoses CML (chronic myelocytic leukemia) (HCC) Dyspnea and respiratory abnormalities Procedures ECG COMPLETE ECG ROUTINE ECG W/LEAST 12 LDS W/I&R Fabiano Liz, DO [address] [place] [address] [facility] [place] [address] [place] [address] Referral ID Status Reason Start Date Expiration Date V isits Requested Visits Authorized [id number] Closed Auto-Generate d Referral 04/26/2023 04/25/2024 1 1 [facility] for referral (narrative)* Diagnostic Procedure Only (Routine) - Closed Specialty Diagnoses / Procedures Referred By Contac t Referred To Contact [facility] Diagnoses CML (chronic myelocytic leukemia) (HCC) Procedures XR FEMUR GENERAL 2V AP/LAT LEFT RADIOLOGIC EXAMINATION FEMUR MINIMUM 2 VIEWS Devika Brush APRN.WAREHOUSE UNLOADER [address] [place] [address] [place] [address] Referral ID Status Reason Start Date Expiration Date V isits Requested Visits Authorized [id number] Closed Auto-Generate d Referral 07/25/2023 08/23/2024 1 1 [facility] referral (narrative)No reason for referral information availableWMorrow County Hospital Work Phone: Reason for visit Narrative* Diagnostic Procedure Only (Routine) - Closed Specialty Diagnoses / Procedures Referred By Contac t Referred To Contact [facility] Diagnoses CML (chronic myelocytic leukemia) (HCC) Procedures XR FEMUR GENERAL 2V AP/LAT LEFT RADIOLOGIC EXAMINATION FEMUR MINIMUM 2 VIEWS Devika Brush APRN.CNP [address] [place] [address] [place] [address] Referral ID Status Reason Start Date Expiration Date V isits Requested Visits Authorized [id number] Closed Auto-Generate d Referral 07/25/2023 08/23/2024 1 1 [facility] Family History No Family History Records Found Relationship Condition Age at Onset Recorded Date/T brad Not Specified Myocardial infarction Unknown Hypertension Unknown Disorder of thyroid Unknown father Coronary artery disease Unknown Diabetes mellitus Unknown Advance Directives No Advanced Directives Records Found Advance Directive Response Recorded Date/ Time Advance Directives No October 01 2:28pm Living Will Yes May 08 12:54pm Power of Retail Service Specialist Yes May 08, 2019 12:54pm Advance Directive Response Recorded Date/ Time Advance Directives No October 01 1:28pm Living Will Yes May 08 11:54am Power of Retail Service Specialist Yes May 08, 2019 11:54am Advance Directive Response Recorded Date/ Time Advance Directives No April 5:39pm Living Will Yes May 21 5:39pm Power of Retail Service Specialist Yes May 21, 2022 5:39pm Advance Directive Response Recorded Date/ Time Living Will Yes October 30, 2023 10:59am Do you have a Healthcare Power of Retail Service Specialist? Yes October 30, 2023 10:59am Advance Directives No April 5:39pm Advance Directive Response Recorded Date/ Time Advance Directives No April 5:39pm Chief Complaint and Reason for Visit Chief Complaint ABDOMINAL PAIN Chief Complaint LUMBAR SPONDY SCREENING Annual (COORDINATOR VOLUNTEER SERVICES) Reason for Visit BMI 39.0-39.9,adult Climacteric Other obesity Encounter for routine gynecological examination Chief Complaint LUMBAR SPONDY SCREENING Annual (COORDINATOR VOLUN[employer]) E ORDER 3 WK FU, weight loss Reason for Visit BMI 39.0-39.9,adult Climacteric Other obesity Encounter for routine gynecological examination BMI 39.0-39.9,adult Climacteric GERD (gastroesophageal reflux disease) Other obesity Chief Complaint LUMBAR SPONDY SCREENING Annual (COORDINATOR VOLUN[employer]) E ORDER 3 WK FU, weight loss [...] Visit Breast mass, right Chief Complaint Annual (COORDIN[employer]) CML Reason for Visit Climacteric [id number] Chief Complaint Admit Date Annual ([employer]) February 24, 2024 9 :00am Reason for [...] LUMBAR SPINE August 20, 2024 7:45a m Chief Complaint Admit Date pain July 14, 2024 5:1 9pm SPINAL STENOSIS August 10, 2024 4:02p m LUMBAR SPINE August 20, 2024 7:45a m [employer] October 29, 2024 8:1 7am BACK. RX HERE November 04, 2024 10 :00am Reason for Visit Admit Date Lumbar radiculopathy August 20, 2024 7:45 am Spinal stenosis of lumbar region with ne urogenic claudication August 20, 2024 7:45am Spondylolisthesis, lumbar region July 7:45am Summary Purpose Health Concerns Infection Onset Date [...] section and content) DATE CREATED AUTHOR 01/03/2022 [facility] DATE CREATED AUTHOR AUTHOR'S ORGANIZ ATION 11/25/2024 [facility] DATE CREATED AUTHOR AUTHOR'S ORGANIZ ATION 11/25/2024 [facility] Care Teams (unrecognized sec tion and content) Team Status: Active Member Role Status Dates Dr. Krystina Calle , DO Primary Care Provider Active Team Status: Inactive Member Role Status Dates Dr. Krystina Calle , DO Primary Care Provider, Referring P alina Active Dr. Monie Mckeon MD Attending Provider Active Team Status: Active Member Role Status Dates Dr. Krystina Calle DO Primary Care Provider Active Dr. Reggie Winslow MD Attending Provider Active Team Status: Inactive Member Role Status Dates Dr. Krystina Calle DO Primary Care Provider Active Dr. Fabiano Liz , DO Attending Provider, Referring Prov ider Active Team Status: Active Member Role Status Dates Dr. Krystina Malys , DO Primary Care Provider Active Dr. Anabelle Peña MD Attending Provider Activ e Team Status: Inactive Member Role Status Dates Dr. Krystina Calle DO Primary Care Provide r, Attending Provider, Referring Provider Active Team Status: Inactive Member Role Status Dates Dr. Krystina Calle DO Primary Care Provider, Referring P rovider Active Mee Conroy ROUTE VENDING MACHINE SERVICER, ROUTE VENDING MACHINE SERVICER-C Attending Provider Active Team Status: Active Member Role Status Dates Dr. Krystina Calle DO Primary Care Provider Active Dr. Anabelle Peña MD Attending Provider Activ e Dr. Monie Mckeon MD Referring Provider Active Team Status: Inactive Member Role Status Dates Dr. Krystina Calle DO Primary Care Provider Active Dr. Monie Mckeon MD Attending Provider Active Glassware Verifier Relationship Specialty Start Date End Date Luc Krystina Sharp DO PCP - General Family Medicine 05/20/15 Glassware Verifier Relationship Specialty Start Date End Date LucKrystina DO PCP - General Family Medicine 05/20/15 Glassware Verifier Relationship Specialty Start Date End Date Bisi Callearon Sharp DO PCP - General Family Medicine 05/20/15 Glassware Verifier Relationship Specialty Start Date End Date Luc Krystina Sharp DO PCP - General Family Medicine 05/20/15 Monie Mckeon [address] [place] [address] GELATIN DYNAMITE PACKING OPERATOR 07/25/22 Glassware Verifier Relationship Specialty Start Date End Date Luc Krytsina Sharp DO PCP - General Family Medicine 05/20/15 Monie Mckeon [address] [place] [address] GELATIN DYNAMITE PACKING OPERATOR 07/25/22 Glassware Verifier Relationship Specialty Start Date End Date Krystina CalleDO PCP - General Family Medicine 05/20/15 [address] [place] [address] GELATIN DYNAMITE PACKING OPERATOR 07/25/22 Glassware Verifier Relationship Specialty Start Date End Date Krystina CalleDO PCP - General Family Medicine 05/20/15 Monie Mckeon [address] [place] [address] GELATIN DYNAMITE PACKING OPERATOR 07/25/22 Glassware Verifier Relationship Specialty Start Date End Date Krystina CalleDO PCP - General Family Medicine 05/20/15 Monie Mckeon [address] [place] [address] GELATIN DYNAMITE PACKING OPERATOR 07/25/22 Glassware Verifier Relationship Specialty Start Date End Date Krystina CalleDO PCP - General Family Medicine 05/20/[address] [place] [address] GELATIN DYNAMITE PACKING OPERATOR 07/25/22 Ligia Mtz RN Specialty Pharmacist Oncology 07/30/22 Glassware Verifier Relationship Specialty Start Date End Date Krystina CalleDO PCP - General Family Medicine 05/20/15 Monie Mckeon [address] [place] [address] GELATIN DYNAMITE PACKING OPERATOR 07/25/22 Ligia Mtz RN Specialty Pharmacist Oncology 07/30/22 Glassware Verifier Relationship Specialty Start Date End Date Krystina Calle PCP - General Family Medicine 05/20/15 Monie Mckeon [address] [place] [address] GELATIN DYNAMITE PACKING OPERATOR 07/25/22 Ligia Mtz RN Specialty Pharmacist Oncology 07/30/22 Glassware Verifier Relationship Specialty Start Date End Date Krystina Calle PCP - General Family Medicine 05/20/15 Monie Mckeon [address] [address] GELATIN DYNAMITE PACKING OPERATOR 07/25/22 Ligia Mtz RN Specialty Pharmacist Oncology 07/30/22 Glassware Verifier Relationship Specialty Start Date End Date CarlyleatulKrystina DO PCP - General Family Medicine 05/20/15 Monie Mckeon [address], [place] [address] GELATIN DYNAMITE PACKING OPERATOR 07/25/22 Ligia Mtz RN Specialty Pharmacist Oncology 07/30/22 Glassware Verifier Relationship Specialty Start Date End Date CarlyleatulKrystina DO PCP - General Family Medicine 05/20/15 Monie Mckeon [address] [phone] GELATIN DYNAMITE PACKING OPERATOR 07/25/22 Ligia Mtz RN Specialty Pharmacist Oncology 07/30/22 Glassware Verifier Relationship Specialty Start Date End Date Krystina Calle DO PCP - General Family Medicine 05/20/15 Monie Mckeon [address] [place] [address] [phone] GELATIN DYNAMITE PACKING OPERATOR 07/25/22 Ligia Mtz RN Specialty Pharmacist Oncology 07/30/22 Glassware Verifier Relationship Specialty Start Date End Date Krystina Calle DO PCP - General Family Medicine 05/20/15 Monie Mckeon [address] [address] GELATIN DYNAMITE PACKING OPERATOR 07/25/22 Ligia Mtz RN Specialty Pharmacist Oncology 07/30/22 Glassware Verifier Relationship Specialty Start Date End Date Krystina Calle DO PCP - General Family Medicine 05/20/[address] [place] [phone] GELATIN DYNAMITE PACKING OPERATOR 07/25/22 Ligia Mtz RN Specialty Pharmacist Oncology 07/30/22 Team Status: Inactive Member Role Status Dates Dr. Krystina Calle DO Primary Care Provider Active Mee Conroy ROUTE VENDING MACHINE SERVICER, ROUTE VENDING MACHINE SERVICER-C Attending Provider, Referring Provider Active Glassware Verifier Relationship Specialty Start Date End Date Krystina Calle DO PCP - General Family Medicine 05/20/15 Monie Mckeon [address] [place] [address] [phone] GELATIN DYNAMITE PACKING OPERATOR 07/25/22 Doup, Ligia, RN Specialty Pharmacist Oncology 07/30/22 Glassware Verifier Relationship Specialty Start Date End Date Bisi Callea Aron PCP - General Family Medicine 05/20/15 Monie Mckeon [address] [place] [address], [place] [address]331 GELATIN DYNAMITE PACKING OPERATOR 07/25/22 Ligia Mtz RN Specialty Pharmacist Oncology 07/30/22 Kasandra Jones, DRIVE MAN [address] [facility] [place] [address] French Teacher Hematology/Oncology 01/24/23 Glassware Verifier Relationship Specialty Start Date End Date Bisi Callea Aron PCP - General Family Medicine 05/20/15 Monie Mckeon [address] [place] [address], [place] [address] Mix House Tender 07/25/22 Ligia Mtz RN Specialty Pharmacist Oncology 07/30/22 Kasandra Jones, DRIVE MAN [address] [facility] [place] [address] French Teacher Hematology/Oncology 01/24/23 Fabiano Liz DO [address] [facility], [place] [address] Hematology/Oncology 04/26/23 Glassware Verifier Relationship Specialty Start Date End Date Bisi Callea AronDO PCP - General Family Medicine 05/20/15 Monie Mckeon [address] [place] [address], [place] [address] Mix House Tender 07/25/22 Ligia Mtz RN Specialty Pharmacist Oncology 07/30/22 Kasandra Jones LISW [address] [place] [address] French Teacher Hematology/Oncology 01/24/23 Fabiano Liz DO [address] [place] [address] Hematology/Oncology 04/26/23 Glassware Verifier Relationship Specialty Start Date End Date Luc Krystina Sharp DO PCP - General Family Medicine 05/20/15 Monie Mckeon [address] [place] [address] Mix House Tender 07/25/22 Ligia Mtz RN Specialty Pharmacist Oncology 07/30/22 Kasandra Jones LISW [address] [place] [address] French Teacher Hematology/Oncology 01/24/23 Fabiano Liz DO [address] [place] [address] Hematology/Oncology 04/26/23 Glassware Verifier Relationship Specialty Start Date End Date Carlyleatul Krystina Sharp DO PCP - General Family Medicine 05/20/15 Monie Mckeon [address] [place] [address] Mix House Tender 07/25/22 Ligia Mtz RN Specialty Pharmacist Oncology 07/30/22 Kasandra Jones, DRIVE MAN [address] [place] [address] French Teacher Hematology/Oncology 01/24/23 Fabiano Liz DO [address] [place] [address] Hematology/Oncology 04/26/23 Glassware Verifier Relationship Specialty Start Date End Date CarlyleatulKrystina DO PCP - General Family Medicine 05/20/15 Monie Mckeon MD [address] [place] [address] Mix House Tender 07/25/22 Ligia Mtz RN Specialty Pharmacist Oncology 07/30/22 Kasnadra Jones LISW [address] [place] [address] French Teacher Hematology/Oncology 01/24/23 Fabiano Liz DO [address] [place], [place] 488[address] [phone] Hematology/Oncology 04/26/23 Glassware Verifier Relationship Specialty Start Date End Date Krystina Calle DO PCP - General Family Medicine 05/20/15 Monie Mckeon MD [address] [facility] [place] [address] Mix House Tender 07/25/22 Ligia Mtz RN Specialty Pharmacist Oncology 07/30/22 Kasandra Jones, DRIVE MAN [address] [place] [address] French Teacher Hematology/Oncology 01/24/23 Fabiano Liz DO [address] [place] [address] Hematology/Oncology 04/26/23 Glassware Verifier Relationship Specialty Start Date End Date Krystina Calle DO PCP - General Family Medicine 05/20/15 Monie Mckeon MD [address] [place] [address] Mix House Tender 07/25/22 Ligia Mtz, RN Specialty Pharmacist Oncology 07/30/22 Kasandra Jones, DRIVE MAN [address] [place] [address] French Teacher Hematology/Oncology 01/24/23 Fabiano Liz DO [address] [place] [address] Hematology/Oncology 04/26/23 Glassware Verifier Relationship Specialty Start Date End Date Krystina Calle DO PCP - General Family Medicine 05/20/15 Monie Mckeon MD [address] [place] [address] Mix House Tender 07/25/22 Ligia Mtz, RN Specialty Pharmacist Oncology 07/30/22 Kasandra Jones, DRIVE MAN [address] [place] [address] French Teacher Hematology/Oncology 01/24/23 Fabiano Liz DO [address] [place] [address] Hematology/Oncology 04/26/23 Glassware Verifier Relationship Specialty Start Date End Date Krystina Calle DO PCP - General Family Medicine 05/20/15 Monie Mckeon MD [address] [place] [address] Mix House Tender 07/25/22 Ligia Mtz RN Specialty Pharmacist Oncology 07/30/22 Kasandra Jones, DRIVE MAN [address] [place] [address] French Teacher Hematology/Oncology 01/24/23 Fabiano Liz DO [address] [place] [address] Hematology/Oncology 04/26/23 Glassware Verifier Relationship Specialty Start Date End Date LucKrystina DO PCP - General Family Medicine 05/20/15 Monie Mckeon MD [address] [place] [address] Mix House Tender 07/25/22 Ligia Mtz RN Specialty Pharmacist Oncology 07/30/22 Kasandra Jones, DRIVE MAN [address] [place] [address] French Teacher Hematology/Oncology 01/24/23 Fabiano Liz DO [address] [place] [address] Hematology/Oncology 04/26/23 Glassware Verifier Relationship Specialty Start Date End Date CarlyleatulKrystina DO PCP - General Family Medicine 05/20/15 Monie Mckeon MD [address] [place] [address] Mix House Tender 07/25/22 Ligia Mtz RN Specialty Pharmacist Oncology 07/30/22 Kasandra Jones, DRIVE MAN [address] [place] [address] French Teacher Hematology/Oncology 01/24/23 Fabiano Liz DO [address] [place] [address] Hematology/Oncology 04/26/23 Glassware Verifier Relationship Specialty Start Date End Date CarlyleatulBisiaron SharpDO PCP - General Family Medicine 05/20/15 Monie Mckeon MD [address] [place] [address] Mix House Tender 07/25/22 Ligia Mtz, RN Specialty Pharmacist Oncology 07/30/22 Kasandra Jones, DRIVE MAN [address] [place] [address] French Teacher Hematology/Oncology 01/24/23 Fabiano Liz DO [address] [place] [address] Hematology/Oncology 04/26/23 Glassware Verifier Relationship Specialty Start Date End Date Krystina Calle DO PCP - General Family Medicine 05/20/15 Monie Mckeon MD [address] [place] [address] Mix House Tender 07/25/22 Ligia Mtz RN Specialty Pharmacist Oncology 07/30/22 Kasandra Jones LISW [address] [place] [address] French Teacher Hematology/Oncology 01/24/23 Fabiano Liz DO [address] [place] [address] Hematology/Oncology 04/26/23 Glassware Verifier Relationship Specialty Start Date End Date Krystina Calle DO PCP - General Family Medicine 05/20/15 Monie Mckeon MD [address] [place] [address], [place] [address] Mix House Tender 07/25/22 Ligia Mtz RN Specialty Pharmacist Oncology 07/30/22 Glassware Verifier Relationship Specialty Start Date End Date Krystina Calle PCP - General Family Medicine 05/20/15 Monie Mckeon MD [address] [place] [address], [place] [id number] Mix House Tender 07/25/22 Ligia Mtz RN Specialty Pharmacist Oncology 07/30/22 Kasandra Jones LISW [address] [facility] [place] [address] French Teacher Hematology/Oncology 01/24/23 Fabiano Liz DO [address] [place] [address] Hematology/Oncology 04/26/23 Glassware Verifier Relationship Specialty Start Date End Date CarlyleatulBisiaron SharpDO PCP - General Family Medicine 05/20/15 Monie Mckeon MD [address] [place] [address], [place] [id number] Mix House Tender 07/25/22 Ligia Mtz RN Specialty Pharmacist Oncology 07/30/22 Kasandra Jones LISW [address] [place] [address] French Teacher Hematology/Oncology 01/24/23 Fabiano Liz DO [address] [place] [address] Hematology/Oncology 04/26/23 Glassware Verifier Relationship Specialty Start Date End Date Krystina Calle DO PCP - General Family Medicine 05/20/15 Monie Mckeon MD [address] [place] [address] Mix House Tender 07/25/22 Ligia Mtz, RN Specialty Pharmacist Oncology 07/30/22 Kasandra Jones, DRIVE MAN [address] [place] [address] French Teacher Hematology/Oncology 01/24/23 Fabiano Liz DO [address] [place] [address] Hematology/Oncology 04/26/23 Glassware Verifier Relationship Specialty Start Date End Date Krystina Calle DO PCP - General Family Medicine 05/20/15 Monie Mckeon MD [address] [place] [address] Mix House Tender 07/25/22 Ligia Mtz, RN Specialty Pharmacist Oncology 07/30/22 Kasandra Jones LISW [address] [place] [address] French Teacher Hematology/Oncology 01/24/23 Fabiano Liz DO [address] [place] [address] Hematology/Oncology 04/26/23 Glassware Verifier Relationship Specialty Start Date End Date Krystina Calle DO PCP - General Family Medicine 05/20/15 Monie Mckeon MD [address] [place], [place] [id number] Mix House Tender 07/25/22 Ligia Mtz, RN Specialty Pharmacist Oncology 07/30/22 Kasandra Jones, DRIVE MAN [address] [place] [address] French Teacher Hematology/Oncology 01/24/23 Fabiano Liz DO [address] [place], [place] [id number] Hematology/Oncology 04/26/23 Glassware Verifier Relationship Specialty Start Date End Date Krystina Calle DO PCP - General Family Medicine 05/20/15 Monie Mckeon MD [address] [place] [address] Mix House Tender 07/25/22 Ligia Mtz, RN Specialty Pharmacist Oncology 07/30/22 Kasandra Jones, DRIVE MAN [address] [place] [address] French Teacher Hematology/Oncology 01/24/23 Fabiano Liz DO [address] [place] [address] Hematology/Oncology 04/26/23 Team Status: Inactive Member Role [...] Care Provider Active Start: June 18, 2024 DEEJAY VERDUGO Attending Provider Active Start: June 18, 2024 DEEJAY VERDUGO Referring Provider Active Start: June 18, 2024 Team Status: Inactive Member Role Status Dates Dr. Krystina Calle DO Primary Care Provider Active Start: June 18, 2024 End: June 18, 2024 DEEJAY VERDUGO Attending Provider Active Start: June 18, 2024 End: June 18, 2024 DEEJAY VERDUGO Referring Provider Active Start: June 18, 2024 End: June 18, 2024 Glassware Verifier Relationship Specialty Start Date End Date Krystina Calle DO PCP - General Family Medicine 05/20/15 Monie Mckeon MD [address] [place] [address] [id number] Mix House Tender 07/25/22 Ligia Mtz RN Specialty Pharmacist Oncology 07/30/22 Kasandra Jones LISW [address] [place] [address] French Teacher Hematology/Oncology 01/24/23 Fabiano Liz DO [address] [place], [place] [id number] Hematology/Oncology 04/26/23 Team Status: Inactive Member Role Status Dates Dr. Krystina Calle DO Primary Care Provider Active Start: July 14, 2024 End: July 14, 2024 AZEB Love Attending Provider Active Star t: July 14, 2024 End: July 14, 2024 Team Status: Inactive Member Role Status Dates Dr. Krystina Calle DO Primary Care Provider Active Start: August 10, 2024 End: August 10, 2024 DEEJAY VERDUGO Attending Provider Active Start: August 10, 2024 End: August 10, 2024 DEEJAY VERDUGO Referring Provider Active Start: August 10, [...] August 20, 2024 End: August 20, 2024 Team Status: Active Member Role/Relationship Status Dates Dr. Krystina Calle DO Primary Care Provider Active Team Status: Inactive Member Role/Relationship Status Dates Dr. Krystina Calle DO Primary Care Provider Active Start: July 14, 2024 End: July 14, 2024 AZEB Love Attending Provider Active Star t: July 14, 2024 End: July 14, 2024 Team Status: Inactive Member Role/Relationship Status Dates Dr. Krystina Calle DO Primary Care Provider Active Start: August 10, 2024 End: August 10, 2024 DEEJAY VERDUGO Attending Provider Active Start: August 10, 2024 End: August 10, 2024 DEEJAY VERDUGO Referring Provider Active Start: August 10, 2024 End: August 10, 2024 Team Status: Inactive Member Role/Relationship Status Dates Dr. Krystina Calle DO Primary Care Provider Active Start: August 20, 2024 End: August 20, 2024 Dr. Krystina Calle DO Referring Provider Active St art: August 20, 2024 End: August 20, 2024 Dr. Dallas Rojas MD Attending Provider Active Start: August 20, 2024 End: August 20, 2024 Team Status: Inactive Member Role/Relationship Status Dates Dr. Krystina Calle DO Primary Care Provider Active Start: October 29, 2024 End: October 29, 2024 Dr. Krystina Calle DO Attending Provider Active St art: October 29, 2024 End: October 29, 2024 Dr. Krystina Calle DO Referring Provider Active St art: October 29, 2024 End: October 29, 2024 Team Status: Active Member Role/Relationship Status Dates Dr. Krystina Calle DO Primary Care Provider Active Start: October 29, 2024 Health Risk Assessment Attending Provider Active Start: October 29, 2024 Health Risk Assessment Referring Provider Active Start: October 29, 2024 Team Status: Active Member Role/Relationship Status Dates Dr. Krystina Calle DO Primary Care Provider Active Start: November 04, 2024 Dr. Dallas Rojas MD Attending Provider Active Start: November 04, 2024 Dr. Dallas Rojas MD Referring Provider Active Start: November 04, 2024 Source Comments (unrecognize d section and content) In the event this informatio n is protected by the Federal Confidentiality of Alcohol and Drug Abuse Patient Records regulations: The Federal rules restrict any use of the information to criminally investigate or prosecute any alcohol or drug abuse patient.[facility] the event this information is protected by the Federal Confidentiality of Alcohol and Drug Abuse Patient Records regulations: The Federal rules restrict any use of the information to criminally investigate or prosecute any alcohol or drug abuse patient.[facility] CenterIn the event this information is protected by the Federal Confidentiality of Alcohol and Drug Abuse Patient Records regulations: The Federal rules restrict any use of the information to criminally investigate or prosecute any alcohol or drug abuse patient.[facility] CenterIn the event this information is protected by the Federal Confidentiality of Alcohol and Drug Abuse Patient Records regulations: The Federal rules restrict any use of the information to criminally investigate or prosecute any alcohol or drug abuse patient.[facility] CenterIn the event this information is protected by the Federal Confidentiality of Alcohol and Drug Abuse Patient Records regulations: The Federal rules restrict any use of the information to criminally investigate or prosecute any alcohol or drug abuse patient.[facility] CenterIn the event this information is protected by the Federal Confidentiality of Alcohol and Drug Abuse Patient Records regulations: The Federal rules restrict any use of the information to criminally investigate or prosecute any alcohol or drug abuse patient.[facility] CenterIn the event this information is protected by the Federal Confidentiality of Alcohol and Drug Abuse Patient Records regulations: The Federal rules restrict any use of the information to criminally investigate or prosecute any alcohol or drug abuse patient.[facility] CenterIn the event this information is protected by the Federal Confidentiality of Alcohol and Drug Abuse Patient Records regulations: The Federal rules restrict any use of the information to criminally investigate or prosecute any alcohol or drug abuse patient.[facility] CenterIn the event this information is protected by the Federal Confidentiality of Alcohol and Drug Abuse Patient Records regulations: The Federal rules restrict any use of the information to criminally investigate or prosecute any alcohol or drug abuse patient.[facility] CenterIn the event this information is protected by the Federal Confidentiality of Alcohol and Drug Abuse Patient Records regulations: The Federal rules restrict any use of the information to criminally investigate or prosecute any alcohol or drug abuse patient.[facility] CenterIn the event this information is protected by the Federal Confidentiality of Alcohol and Drug Abuse Patient Records regulations: The Federal rules restrict any use of the information to criminally investigate or prosecute any alcohol or drug abuse patient.[facility] CenterIn the event this information is protected by the Federal Confidentiality of Alcohol and Drug Abuse Patient Records regulations: The Federal rules restrict any use of the information to criminally investigate or prosecute any alcohol or drug abuse patient.[facility] CenterIn the event this information is protected by the Federal Confidentiality of Alcohol and Drug Abuse Patient Records regulations: The Federal rules restrict any use of the information to criminally investigate or prosecute any alcohol or drug abuse patient.[facility] CenterIn the event this information is protected by the Federal Confidentiality of Alcohol and Drug Abuse Patient Records regulations: The Federal rules restrict any use of the information to criminally investigate or prosecute any alcohol or drug abuse patient.[facility] CenterIn the event this information is protected by the Federal Confidentiality of Alcohol and Drug Abuse Patient Records regulations: The Federal rules restrict any use of the information to criminally investigate or prosecute any alcohol or drug abuse patient.[facility] CenterIn the event this information is protected by the Federal Confidentiality of Alcohol and Drug Abuse Patient Records regulations: The Federal rules restrict any use of the information to criminally investigate or prosecute any alcohol or drug abuse patient.[facility] CenterIn the event this information is protected by the Federal Confidentiality of Alcohol and Drug Abuse Patient Records regulations: The Federal rules restrict any use of the information to criminally investigate or prosecute any alcohol or drug abuse patient.[facility] CenterIn the event this information is protected by the Federal Confidentiality of Alcohol and Drug Abuse Patient Records regulations: The Federal rules restrict any use of the information to criminally investigate or prosecute any alcohol or drug abuse patient.[facility] CenterIn the event this information is protected by the Federal Confidentiality of Alcohol and Drug Abuse Patient Records regulations: The Federal rules restrict any use of the information to criminally investigate or prosecute any alcohol or drug abuse patient.[facility] CenterIn the event this information is protected by the Federal Confidentiality of Alcohol and Drug Abuse Patient Records regulations: The Federal rules restrict any use of the information to criminally investigate or prosecute any alcohol or drug abuse patient.[facility] CenterIn the event this information is protected by the Federal Confidentiality of Alcohol and Drug Abuse Patient Records regulations: The Federal rules restrict any use of the information to criminally investigate or prosecute any alcohol or drug abuse patient.[facility] CenterIn the event this information is protected by the Federal Confidentiality of Alcohol and Drug Abuse Patient Records regulations: The Federal rules restrict any use of the information to criminally investigate or prosecute any alcohol or drug abuse patient.[facility] CenterIn the event this information is protected by the Federal Confidentiality of Alcohol and Drug Abuse Patient Records regulations: The Federal rules restrict any use of the information to criminally investigate or prosecute any alcohol or drug abuse patient.[facility] CenterIn the event this information is protected by the Federal Confidentiality of Alcohol and Drug Abuse Patient Records regulations: The Federal rules restrict any use of the information to criminally investigate or prosecute any alcohol or drug abuse patient.[facility] CenterIn the event this information is protected by the Federal Confidentiality of Alcohol and Drug Abuse Patient Records regulations: The Federal rules restrict any use of the information to criminally investigate or prosecute any alcohol or drug abuse patient.[facility] CenterIn the event this information is protected by the Federal Confidentiality of Alcohol and Drug Abuse Patient Records regulations: The Federal rules restrict any use of the information to criminally investigate or prosecute any alcohol or drug abuse patient.[facility] CenterIn the event this information is protected by the Federal Confidentiality of Alcohol and Drug Abuse Patient Records regulations: The Federal rules restrict any use of the information to criminally investigate or prosecute any alcohol or drug abuse patient.[facility] CenterIn the event this information is protected by the Federal Confidentiality of Alcohol and Drug Abuse Patient Records regulations: The Federal rules restrict any use of the information to criminally investigate or prosecute any alcohol or drug abuse patient.[facility] CenterIn the event this information is protected by the Federal Confidentiality of Alcohol and Drug Abuse Patient Records regulations: The Federal rules restrict any use of the information to criminally investigate or prosecute any alcohol or drug abuse patient.[facility] CenterIn the event this information is protected by the Federal Confidentiality of Alcohol and Drug Abuse Patient Records regulations: The Federal rules restrict any use of the information to criminally investigate or prosecute any alcohol or drug abuse patient.[facility] CenterIn the event this information is protected by the Federal Confidentiality of Alcohol and Drug Abuse Patient Records regulations: The Federal rules restrict any use of the information to criminally investigate or prosecute any alcohol or drug abuse patient.[facility] CenterIn the event this information is protected by the Federal Confidentiality of Alcohol and Drug Abuse Patient Records regulations: The Federal rules restrict any use of the information to criminally investigate or prosecute any alcohol or drug abuse patient.[facility] CenterIn the event this information is protected by the Federal Confidentiality of Alcohol and Drug Abuse Patient Records regulations: The Federal rules restrict any use of the information to criminally investigate or prosecute any alcohol or drug abuse patient.[facility] CenterIn the event this information is protected by the Federal Confidentiality of Alcohol and Drug Abuse Patient Records regulations: The Federal rules restrict any use of the information to criminally investigate or prosecute any alcohol or drug abuse patient.[facility] CenterIn the event this information is protected by the Federal Confidentiality of Alcohol and Drug Abuse Patient Records regulations: The Federal rules restrict any use of the information to criminally investigate or prosecute any alcohol or drug abuse patient.[facility] CenterIn the event this information is protected by the Federal Confidentiality of Alcohol and Drug Abuse Patient Records regulations: The Federal rules restrict any use of the information to criminally investigate or prosecute any alcohol or drug abuse patient.[facility] CenterIn the event this information is protected by the Federal Confidentiality of Alcohol and Drug Abuse Patient Records regulations: The Federal rules restrict any use of the information to criminally investigate or prosecute any alcohol or drug abuse patient.[facility] CenterIn the event this information is protected by the Federal Confidentiality of Alcohol and Drug Abuse Patient Records regulations: The Federal rules restrict any use of the information to criminally investigate or prosecute any alcohol or drug abuse patient.[facility] CenterIn the event this information is protected by the Federal Confidentiality of Alcohol and Drug Abuse Patient Records regulations: The Federal rules restrict any use of the information to criminally investigate or prosecute any alcohol or drug abuse patient.[facility] CenterIn the event this information is protected by the Federal Confidentiality of Alcohol and Drug Abuse Patient Records regulations: The Federal rules restrict any use of the information to criminally investigate or prosecute any alcohol or drug abuse patient.[facility] CenterIn the event this information is protected by the Federal Confidentiality of Alcohol and Drug Abuse Patient Records regulations: The Federal rules restrict any use of the information to criminally investigate or prosecute any alcohol or drug abuse patient.[facility] CenterIn the event this information is protected by the Federal Confidentiality of Alcohol and Drug Abuse Patient Records regulations: The Federal rules restrict any use of the information to criminally investigate or prosecute any alcohol or drug abuse patient.[facility] CenterIn the event this information is protected by the Federal Confidentiality of Alcohol and Drug Abuse Patient Records regulations: The Federal rules restrict any use of the information to criminally investigate or prosecute any alcohol or drug abuse patient.[facility] CenterIn the event this information is protected by the Federal Confidentiality of Alcohol and Drug Abuse Patient Records regulations: The Federal rules restrict any use of the information to criminally investigate or prosecute any alcohol or drug abuse patient.[facility] CenterIn the event this information is protected by the Federal Confidentiality of Alcohol and Drug Abuse Patient Records regulations: The Federal rules restrict any use of the information to criminally investigate or prosecute any alcohol or drug abuse patient.[facility] CenterIn the event this information is protected by the Federal Confidentiality of Alcohol and Drug Abuse Patient Records regulations: The Federal rules restrict any use of the information to criminally investigate or prosecute any alcohol or drug abuse patient.[facility] CenterIn the event this information is protected by the Federal Confidentiality of Alcohol and Drug Abuse Patient Records regulations: The Federal rules restrict any use of the information to criminally investigate or prosecute any alcohol or drug abuse patient.[facility] CenterIn the event this information is protected by the Federal Confidentiality of Alcohol and Drug Abuse Patient Records regulations: The Federal rules restrict any use of the information to criminally investigate or prosecute any alcohol or drug abuse patient.[facility] CenterIn the event this information is protected by the Federal Confidentiality of Alcohol and Drug Abuse Patient Records regulations: The Federal rules restrict any use of the information to criminally investigate or prosecute any alcohol or drug abuse patient.[facility] CenterIn the event this information is protected by the Federal Confidentiality of Alcohol and Drug Abuse Patient Records regulations: The Federal rules restrict any use of the information to criminally investigate or prosecute any alcohol or drug abuse patient.[facility] CenterIn the event this information is protected by the Federal Confidentiality of Alcohol and Drug Abuse Patient Records regulations: The Federal rules restrict any use of the information to criminally investigate or prosecute any alcohol or drug abuse patient.[facility] CenterIn the event this information is protected by the Federal Confidentiality of Alcohol and Drug Abuse Patient Records regulations: The Federal rules restrict any use of the information to criminally investigate or prosecute any alcohol or drug abuse patient.[facility] CenterIn the event this information is protected by the Federal Confidentiality of Alcohol and Drug Abuse Patient Records regulations: The Federal rules restrict any use of the information to criminally investigate or prosecute any alcohol or drug abuse patient.[facility] CenterIn the event this information is protected by the Federal Confidentiality of Alcohol and Drug Abuse Patient Records regulations: The Federal rules restrict any use of the information to criminally investigate or prosecute any alcohol or drug abuse patient.[facility] CenterIn the event this information is protected by the Federal Confidentiality of Alcohol and Drug Abuse Patient Records regulations: The Federal rules restrict any use of the information to criminally investigate or prosecute any alcohol or drug abuse patient.[facility] CenterIn the event this information is protected by the Federal Confidentiality of Alcohol and Drug Abuse Patient Records regulations: The Federal rules restrict any use of the information to criminally investigate or prosecute any alcohol or drug abuse patient.[facility] CenterIn the event this information is protected by the Federal Confidentiality of Alcohol and Drug Abuse Patient Records regulations: The Federal rules restrict any use of the information to criminally investigate or prosecute any alcohol or drug abuse patient.[facility] CenterIn the event this information is protected by the Federal Confidentiality of Alcohol and Drug Abuse Patient Records regulations: The Federal rules restrict any use of the information to criminally investigate or prosecute any alcohol or drug abuse patient.[facility] CenterIn the event this information is protected by the Federal Confidentiality of Alcohol and Drug Abuse Patient Records regulations: The Federal rules restrict any use of the information to criminally investigate or prosecute any alcohol or drug abuse patient.[facility] CenterIn the event this information is protected by the Federal Confidentiality of Alcohol and Drug Abuse Patient Records regulations: The Federal rules restrict any use of the information to criminally investigate or prosecute any alcohol or drug abuse patient.[facility] CenterIn the event this information is protected by the Federal Confidentiality of Alcohol and Drug Abuse Patient Records regulations: The Federal rules restrict any use of the information to criminally investigate or prosecute any alcohol or drug abuse patient.[facility] CenterIn the event this information is protected by the Federal Confidentiality of Alcohol and Drug Abuse Patient Records regulations: The Federal rules restrict any use of the information to criminally investigate or prosecute any alcohol or drug abuse patient.[facility] Reason for Visit (unrecogniz ed section and content) Reason Comments Results High uric acid Reason Comments New Patient Evaluation Specialty Diagnoses / Procedures Referred By Contmarissa t Referred To Contact Hematology/Oncology / HEMATOLOGY/ONCOLOGY 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 CALLE* Procedures NEW PATIENT Fabiano Liz, DO [address] [place] [address] Fabiano Liz, DO [address] [place] [address] Referral ID Status Reason Start Date Expiration Date V isits Requested Visits Authorized [id number] Pending Review 07/25/2022 10/23/2022 1 1 Reason Comments urgent results Reason Comments Results Blood PCR testing Reason Onset Date Comments SPP Oral Oncology/hematology - Treatment Referra l 07/26/2022 Bosulif Insurance Authorization 07/26/2022 AZEB villanueva Reason Comments Bone Marrow Aspirate/Biopsy Reason Onset Date Comments Refill Request 08/02/2022 Reason Comments Pharmacist - Other Oral Anti-Cance r Agents Follow-up (Bosutinib) Reason Comments Chest Congestion cough x 8 days Reason Comments Pharmacist - Other Follow-up Reason Comments Results Reason Comments Established Patient Reason Comments Results CXR Reason Onset Date Comments Refill Request 12/28/2022 Reason Comments Established Patient Specialty Diagnoses / Procedures Referred By Contac t Referred To Contact [facility] Diagnoses CML (chronic myelocytic leukemia) (HCC) Procedures ECHO ECHO TTHRC R-T 2D W/WOM-MODE COMPL SPEC&COLR D Fabiano Liz, DO [address] [place] [address] [facility] [address] [place] [address] Referral ID Status Reason Start Date Expiration Date V isits Requested Visits Authorized [id number] Closed Auto-Generate d Referral 04/26/2023 03/24/2024 1 [...] Date Comments Refill Request 05/13/2024 Reason Comments Pharmacist - Other Oral Anti-Cance r Agents Education (asciminib) Reason Comments Pharmacist - Other Oral Anti-Cance r Agents Follow-up Reason Comments Medication Problem Reason Onset Date Comments SPP Oral Oncology/hematology - Medication Refill 09/30/2024 Scemblix Reason Onset Date Comments SPP Oral Oncology/hematology - Medication Refill 10/26/2024 Scemblix Reason Comments Follow Up Reason Onset Date Comments SPP Oral Oncology/hematology - Medication Refill 11/20/2024 Scemblix FOR RECORDS PERTAINING TO PATIENTS WHO [...] BE BASED ON THE PRIMARY CLINICAL RECORDS. [employer] provides no warranty or guarantee of the accuracy or completeness of information in this document.
[2024-11-28] MEDS: 0.9% Normal Saline (1000mL) 1,000 ML 999 ML IV (12:56)
[2024-11-28] MEDS: Famotidine 200 MG/20 ML MDV 20 MG in 0.9% Normal Saline (Pres. free 8 ML 300 MG IV (12:59)
[2024-11-28 13:06] LABS: Partial Thromboplast Time 24.9 Seconds (24.1-36.2); Prothrombin Time (Protime)PT. 12.9 SECONDS (11.7-14.9)
[2024-11-28 13:23] LABS: Anion Gap 13 (5-15); BUN 13 mg/dL (4-19); BUN/Creat Ratio 22.6 RATIO (10-20); Calcium,Total 9.1 mg/dL (7.6-11.0); Carbon Dioxide 22.4 mmol/L (21.0-32.0); Chloride 103 mmol/L (98-108); Glucose 121 mg/dL (70-99); Potassium 3.7 mmol/L (3.3-5.1)
[2024-11-28 13:26] LABS: Pro- Brain NATRIURETIC PEPTIDE 186 pg/mL (<=450); Troponin T High Sensitivity 7 ng/L (<=14)
--- NOTE | 2024-11-28 14:24 | RAD.NOTE ---
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 Patient has pre-existing allergy that was treated with the 1 hour pre-medication protocol. Called patient's nurse Marie to inform her of reaction at 14:00.
[2024-11-28 16:28] LABS: Troponin T High Sens 2 HR 7 ng/L (<=14)
--- NOTE | 2024-11-28 16:40 | NURSING ---
Pt ambulated in [place].
--- NOTE | 2024-11-28 16:50 | CM.ED ---
Social Work Date of referral: 11/28/24 Reason for referral: No Advanced Care Directives (ACD's) on file. Referred by: Social Work Identification Nicu Rn entered room however made the decision not to request a copy of patient's ACD's as the room had several visitors (co-workers) and addiction social worker wanted to respect patient's privacy. Tamera Thomas, CORRECTIONAL SUPERVISOR [employer], CUPOLA MECHANIC
== END 2024-11-28 17:43 | disposition home or self-care (01) ==
LOC: ED 12:49
PROVIDERS: Emergency Provider Emergency Medicine; PCP Family Medicine; Visit Provider Emergency Medicine
DX: I10 Essential (primary) hypertension (principal); C92.10 Chronic myeloid leukemia, BCR/ABL-positive, not having achieved remission; M54.9 Dorsalgia, unspecified; R51.9 Headache, unspecified; Z90.710 Acquired absence of both cervix and uterus; G47.30 Sleep apnea, unspecified; Z99.89 Dependence on other enabling machines and devices; Z85.830 Personal history of malignant neoplasm of bone; Z85.89 Personal history of malignant neoplasm of other organs and systems; E03.8 Other specified hypothyroidism; Z79.890 Hormone replacement therapy; Z79.899 Other long term (current) drug therapy; Z90.49 Acquired absence of other specified parts of digestive tract; Z98.51 Tubal ligation status; K21.9 Gastro-esophageal reflux disease without esophagitis; R06.02 Shortness of breath
CPT/HCPCS: 70450; 70496; 70498; 71275; 80048; 83880; 84484; 85025; 85610; 85730; 93005; 96365; 96375; 99284; Q9967; A4216

== ENCOUNTER → 2024-12-04 | Outpatient (CLI) | payer OTHER, SELFPAY ==
--- NOTE | 2024-12-04 08:15 | CT_ITS ---
PROCEDURE: ABDOMEN/PELVIS WITHOUT CONT 12/04/2024 REASON FOR EXAM: CML TECHNIQUE: Procedure Code: CTABDPEL Modality: CT Procedure: ABDOMEN/PELVIS WITHOUT CONT Noncontrast technique limits evaluation of the abdominal and pelvic viscera. Coronal and Sagittal reconstruction series were provided. One or more dose reduction techniques were used (e.g., Automated exposure control, adjustment of the mA and/or kV according to patient size, use of iterative reconstruction technique). RADIATION DOSE SUMMARY: CTDlvol: 23 mGy DLP: 1244 mGycm COMPARISON: July 27, 2021, January 13, 2019 FINDINGS: Lung bases: Clear Liver: Enlarged, diffusely fatty infiltrated liver. Gallbladder: Cholecystectomy. No biliary ductal dilation. Spleen: Normal. Pancreas: Normal. Adrenals: Right adrenal nodule is 15 x 10 mm. A prior exam is noncontrast showing of the nodule is 10 Hounsfield units consistent with an adenoma. Left adrenal is normal. Kidneys: 2 mm calculus right lower pole is nonobstructing. Bladder: Nearly empty Reproductive Organs: Hysterectomy. Left ovarian cyst is 2.3 x 2.7 x 2.8 cm. No right adnexal mass. Bowel: Small sliding hiatus hernia. Small bowel is normal. Colon appears normal. Appendix: Normal Lymph nodes: None appear enlarged. Vasculature: Normal Peritoneum / Retroperitoneum: No free air, free fluid or mass. Bones: Facet hypertrophy L3/4, L4/5 and L5/S1. CT/Abdomen/Pelvis without Cont IMPRESSION: 1. Hysterectomy. Left ovarian cyst measures up to 2.8 cm. ACR White Paper rec ommendations (Thierry, et al. J Am Vishnu Radiol 2020;17:248-254) suggest the following: No further imaging. 2. Right adrenal nodule represents a benign adenoma. No follow-up required. 3. Diffuse fatty liver. Reading Location: [id number]
== END | disposition home or self-care (01) ==
LOC: CT 08:11
PROVIDERS: PCP Family Medicine; Referring Provider Internal Medicine Hematology & Oncology; Visit Provider Internal Medicine Hematology & Oncology
DX: C92.01 Acute myeloblastic leukemia, in remission (principal); R59.0 Localized enlarged lymph nodes
CPT/HCPCS: 74176

== ENCOUNTER → 2025-01-01 | Outpatient (CLI) | payer OTHER, SELFPAY ==
--- NOTE | 2025-01-01 07:56 | US_ITS ---
PROCEDURE: PELVIC (NON ) 01/01/2025 REASON FOR EXAM: LEFT OVARIAN CYST TECHNIQUE: Procedure Code: USPEL Modality: US Procedure: PELVIC (NON ) COMPARISON: CT abdomen and pelvic study dated 12/04/2024 FINDINGS: Measurements: Uterus: The uterus is absent compatible with patient's history of hysterectomy. Right Ovary: 2.9 x 2.5 x 1.6 cm with a volume of 5.9 mL. Left Ovary: 5.4 3.4 x 2.6 cm x with a volume of 25 mL. Uterus: Patient had a hysterectomy. Right ovary: Size contour and echogenicity are within normal limits. There is blood flow to the ovary. Left ovary: There is a benign-appearing cyst measuring 2.8 x 2.8 x 2.3 cm. There is a dominant follicle measuring 14 mm. Other: Urinary bladder measures 7.9 x 5.0 x 3.1 cm. Bladder wall is smooth. Urinary bladder volume is 64 mL. There are no masses seen within the urinary bladder. There is no free fluid in the cul-de-sac. US/Pelvic (Non ) IMPRESSION: Evidence of previous hysterectomy. Benign-appearing left ovarian cyst. Normal appearance of the right ovary. Reading Location: [id number]
[2025-01-01 10:14] LABS: CRP 13.90 mg/L (0.0-3.0)
[2025-01-01 10:22] LABS: AST(SGOT) 36 U/L (<=31); Alanine Aminotransfer ALT/SGPT 62 U/L (<=34); Albumin, Serum 4.2 g/dL (3.5-5.0); Alkaline Phosphatase 93 U/L (35-104); Anion Gap 11 (5-15); BUN 14 mg/dL (4-19); BUN/Creat Ratio 21.5 RATIO (10-20); Calcium,Total 9.3 mg/dL (7.6-11.0); Carbon Dioxide 26.4 mmol/L (21.0-32.0); Chloride 104 mmol/L (98-108); Globulin 2.6 g/dL (2.2-4.2); Glucose 151 mg/dL (70-99); Potassium 4.1 mmol/L (3.3-5.1)
== END | disposition home or self-care (01) ==
PROVIDERS: PCP Family Medicine; Referring Provider Obstetrics & Gynecology; Visit Provider Obstetrics & Gynecology
DX: M25.50 Pain in unspecified joint (principal); Z51.81 Encounter for therapeutic drug level monitoring
CPT/HCPCS: 36415; 76856; 80053; 85652; 86140

== ENCOUNTER 2025-01-13 09:00 | Outpatient (RCR) | payer OTHER, SELFPAY ==
--- NOTE | 2024-11-11 14:13 | HP.PTEVAL ---
Patient's Visit Information Visit Information Visit Information: BHAVYA ALBERTO is a 49 year old F referred to Physical Therapy by Dr. Dallas Rojas MD with a diagnosis of Lumbar Spondylolisthesis. Date of Evaluation: 08/28/24 Physical Therapist: Alisa Grimes, PT, Cert MDT Visit Plan Frequency: 2x /Week Duration: 2-4 Months Plan: CONT PT X 10-12 VISITS WITH AQUATIC THERAPY PROGRESSING WITH NEUTRAL SPINE ONLY. *PATIENT HAS LUMBAR INSTABILITY ON FLEX/EXT X-RAYS* AQUATIC THERAPY FOR PAIN RELIEF, POSTURE CORRECTION/STRENGTHENING, INSTRUCTION IN APPROPRIATE BODY MECHANICS AND ACTIVITY MODIFICATIONS. DLS WITH A NEUTRAL SPINE ONLY. IKE LE ROM, STRETCHING AND STRENGTHENING. HEP INSTRUCTION. 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 Present symptoms: IKE LBP R>L, R THIGH, R LEG, R FOOT PAIN. PATIENT DENIES R LE NUMBNESS AND TINGLING. Present since: 21 YEARS AGO Pain Scale: WORST 5/10, LEAST 1/10 Currently: 1/10 Is it getting better, worse or staying the same: STAYING THE SAME THE LAST 2 MONTHS Commenced as a result of: BLOOD PATCH Symptoms at onset: SHARP BURNING PAIN DOWN RIGHT LEG Worse: PROLONGED SITTING, PROLONGED STANDING, MOPPING, PULLING AND PUSHING PATIENTS, RUNNING BACK AND FORTH TO THE FLOOR FROM THE ED DURING WORK. R SDLY. Better: 2 TYLONOL AND 4 IBUPROFEN USUALLY TAKES CARE OF IT, HEATING PAD APPLIED TO R LOW BACK, CHANGE OF POSITION. Disturbed sleep: YES Previous history/Previous treatment: CHIROPRACTIC EVERY 2 TO 6 WKS OVER THE LAST 21 YEARS. SOMETIMES 3 TIMES A WK NEEDED. SOME BENEFIT FOR A FEW DAYS AFTER VISITS. PRESCRIPTION MUSCLE RELAXERS 3-4 YEARS AGO. NO BACK SURGERY, NO MISTI'S, NO MASSAGE THERAPY, NO PHYSICAL THERAPY. Treatment this episode: STEROID DOSE MIGUEL A WITH BENEFIT JUNE 2024. CONSULT WITH DR. CRANDALL PENDING 09/02/24. Coughing/sneezing/straining: POSITIVE FOR INCREASED PAIN AT TIMES. Gait: INTERMITTENT LIMP. Bowel or Bladder Dysfunction: NO Accidents: NO Unexplained weight loss: NO Imaging: YES - SEE [facility] EMR AND DR. ROJAS'S RECENT ORTHO NOTE FOR X-RAY AND MRI RESULTS SHOWING L34 AND L5S1 HNP, L45 L5S1 STENOSIS AND SEVERE DDD WITH NERVE ROOT INVOLVEMENT. INSTABILITY SEEN ON FLEX/EXT X-RAY VIEWS ALONG WITH OTHER IMAGING FINDINGS PER REPORT NOTES. OTHER: PATIENT STATES DR. ROJAS SAID SURGERY IS A LAST RESORT DUE TO THE LEUKEMIA AND BECAUSE IT WOULD BE EXTENSIVE AND A HARD RECOVERY. PMH/Recent major surgery: Leukemia - on daily chemo pill, Hypothyroidism Pain LBP: Pain Intensity (Out of 10): 1 Pain Intensity Range: 1 and 5 Comment: 3-4/10 annoying LE radiculopathy: Pain Intensity (Out of 10): 1 Comment: burning hamstrings R>L Objective Objective: Sitting/Standing Posture: INCREASED LORDOSIS. ANTERIOR PELVIC TILT. NO RELEVANT LATERAL LUMBAR SHIFT. Active Correction of posture: WORSE Other Observations: INDEP SIT TO STAND WITHOUT UE ASSIST Sensory deficit: DECREASED LIGHT TOUCH SENSATION R ANT AND LAT THIGH COMPARED TO L. ROM deficit: IKE HS, HIP FLEX AND CALF TIGHTNESS Motor deficit: R HIP 4-/5, KNEE 4/5, ANKLE 5/5. L HIP 4/5, KNEE 5/5, ANKLE 5/5 Reflexes: R QUAD 1+, ACHILLES 2+. L QUAD 2+, ACHILLES 2+ Dural Signs: + R LE Lumbar mvmt loss: flex - MOD - DECREASES - NB ext - MOD - INCREASES - NW R SG - MOD - INCREASES, P R THIGH - W L SG - MOD - DECREASES BACK AND R THIGH - NB Core strength: POOR Palpation: TENDERNESS AND ATROPHY OF R LOWER THORACIC, LUMBAR PARASPINAS COMPARED TO L. OTHER: PATIENT IS ABLE TO WALK ON TOES AND HEELS WITHOUT UE ASSIST. TREATMENT: NEURO RE-ED - INTRO TO POSTURE CORRECTION AND ACTIVITY MODIFICATIONS FOR SITTING, STANDING, WALKING AND LYING. Balance/Special Test Scores Oswestry Low Back Score: 8 Goals Goal 1:: DECREASE C/O LOW BACK AND R LE SX'S BY AT LEAST 50% TO EASE ADL'S - GOAL MET. NEW GOAL - DECREASE C/O LOW BACK AND R LE SX'S BY AT LEAST 75% TO EASE ADL'S Goal Time Frame: 6-8 Weeks Goal 2:: IMPROVE PERSONAL CARE, LIFTING, SITTING, STANDING, SLEEP, SOCIAL LIFE, TRAVEL, WORK AND HOMEMAKING FUNCTION WITH AT LEAST 5 POINT IMPROVEMENT IN LUMBAR OSWESTRY QUESTIONNAIRE SCORE IMPROVEMENT. Goal Time Frame: 6-8 Weeks Goal 3:: INSTRUCT IN PROPHYLAXIS. Goal Time Frame: 6-8 Weeks Rehabilitation Potential Physical Therapy Diagnosis: CORE AND LE STIFFNESS AND WEAKNESS. Rehabilitation Potential: Fair Anticipated Interventions Patient/Client Instruction: Educate patient on: Condition, Plan of Care and Risk Factors For the Purpose of:: To improve self management Therapeutic Exercise to Include: Strength training, Body mechanics, Postural training, Flexibilty training, Neuromotor development, In an aquatic setting and Dynamic Lumbar Stabilization For the Purpose of:: To decrease pain, To improve muscle performance and motor function, To increase tolerance to activity/condition/position, To improve ability of physical actions for home/community/work/leisure, To increase flexibility/ROM and To improve self management Text: Thank you for the opportunity to evaluate your patient. For Medicare and Medicare HMO plans, please review the plan of care and approve it. It will need to be FAXED BACK to us at [phone] for Medicare purposes. For Medicare only, by signing this I certify the plan of care. Please let me know if there are questions or concerns regarding this plan of care. Physician Signature: Date:
--- NOTE | 2024-11-11 14:14 | HP.PTREVAL ---
Re-Evaluation Intro: Dr. Dallas Rojas MD, It has been my pleasure to treat BHAVYA ALBERTO over the last 9 visits for Lumbar Spondylolisthesis. Please see the progress note below for an update on the physical therapy plan of care! Subjective Subjective: PATIENT REPORTS PHYSICAL THERAPY IS HELPING SO MUCH. STILL REPORTING PAIN RANGING 1-5/10 BUT SHE REPORTS APPROX 50% IMPROVEMENT OVER-ALL SINCE STARTING PT STATING NOW I HAVE SO MANY WAYS TO GET THE PAIN SHANA TO A 1/10. HAVING LESS PAIN MORE OFTEN. I CAN GET THROUGH A WORK DAY AND NOT BE SO PAINFUL AT THE END OF THE DAY THAT I DON'T WANT TO DO ANYTHING WHEN I GET HOME. PATIENT REPORTS SHE IS NO LONGER TAKING OTC TYLONOL AND IBUPROFEN DURING THE DAY BUT STILL TAKING IT BEFORE BED. SHE STATES SHE SAW DR. CRANDALL 11/04/24 AND HAS MISTI PLANNED 11/25/24. DURING EXAM HE FOUND A VERY TENDER SPOT IN HER R LOW BACK THAT ABOUT DROPPED ME TO MY KNEES. IT HURT UNTIL THE NEXT DAY. Objective Objective/Function: PATIENT WAS SEEN TODAY FOR RE-ASSESSMENT OF PROGRESS TOWARD THE SET PT GOALS AND THE NEED FOR FURTHER PHYSICAL THERAPY VS READINESS FOR DISCHARGE. THIS PATIENT IS MAKING SLOW BUT GOOD PROGRESS WITH PT AND IS A GOOD CANDIDATE TO CONTINUE PT BASED ON PROGRESS MADE, UP COMING MISTI AND ROOM FOR FURTHER IMPROVEMENT. PATIENT IS AGREEABLE. UPON EXAM TODAY: Sensory deficit: PATIENT HAS DECREASED LIGHT TOUCH SENSATION R ANT AND LAT THIGH COMPARED TO L BUT THE DIFFERENCE IS LESS NOTICEABLE FOR HER COMPARED TO INITIAL EVAL. ROM deficit: IKE HS, HIP FLEX AND CALF TIGHTNESS Motor deficit: R HIP 4-/5, KNEE 4/5, ANKLE 5/5. L HIP 4/5, KNEE 5/5, ANKLE 5/5 Reflexes: R QUAD 1+, ACHILLES 2+. L QUAD 2+, ACHILLES 2+ Dural Signs: NEGATIVE IKE LE'S. Lumbar mvmt loss: flex - MIN - NE ext - MOD - INCREASES BACK AND THIGH PAIN - NW R SG - MOD - INCREASES R BACK - NW L SG - MOD - NE Core strength: POOR Palpation: MILD TENDERNESS LOCALIZED TO THE RIGHT LOWER LUMBAR PARASPINAL REGION. PATIENT CONTINUES TO HAVE MUSCLE ATROPHY OF R PARASPINALS COMPARED TO L BUT IMPROVED FROM INITIAL EVAL. Plan Plan Plan: CONT PT X 10-12 VISITS WITH AQUATIC THERAPY PROGRESSING WITH NEUTRAL SPINE ONLY. *PATIENT HAS LUMBAR INSTABILITY ON FLEX/EXT X-RAYS* AQUATIC THERAPY FOR PAIN RELIEF, POSTURE CORRECTION/STRENGTHENING, INSTRUCTION IN APPROPRIATE BODY MECHANICS AND ACTIVITY MODIFICATIONS. DLS WITH A NEUTRAL SPINE ONLY. IKE LE ROM, STRETCHING AND STRENGTHENING. HEP INSTRUCTION. Balance/Gait/Functional tests Balance/Special Test Scores Oswestry Low Back Score: 8 Goals Goals Goal 1:: DECREASE C/O LOW BACK AND R LE SX'S BY AT LEAST 50% TO EASE ADL'S - GOAL MET. NEW GOAL - DECREASE C/O LOW BACK AND R LE SX'S BY AT LEAST 75% TO EASE ADL'S Goal Time Frame: 6-8 Weeks Goal 2:: IMPROVE PERSONAL CARE, LIFTING, SITTING, STANDING, SLEEP, SOCIAL LIFE, TRAVEL, WORK AND HOMEMAKING FUNCTION WITH AT LEAST 5 POINT IMPROVEMENT IN LUMBAR OSWESTRY QUESTIONNAIRE SCORE IMPROVEMENT. Goal Time Frame: 6-8 Weeks Goal Progress: Progressing Goal 3:: INSTRUCT IN PROPHYLAXIS. Goal Time Frame: 6-8 Weeks Goal Progress: Progressing Anticipated Interventions Anticipated Interventions Patient/Client Instruction: Educate patient on: Condition, Plan of Care and Risk Factors For the Purpose of:: To improve self management Therapeutic Exercise to Include: Strength training, Body mechanics, Postural training, Flexibilty training, Neuromotor development, In an aquatic setting and Dynamic Lumbar Stabilization For the Purpose of:: To decrease pain, To improve muscle performance and motor function, To increase tolerance to activity/condition/position, To improve ability of physical actions for home/community/work/leisure, To increase flexibility/ROM and To improve self management Re-Evaluation Ending Re-evaluation ending: Please do not hesitate to contact me at [phone] by phone or if you have questions or concerns regarding this new plan of care! Sincerely, Alisa Grimes, PT, Cert MDT
--- NOTE | 2025-01-13 10:04 | HP.PTDCSUM_ITS ---
Discharge Summary D/C summary: It has been my pleasure to treat BHAVYA ALBERTO referred by Dr. Dallas Rojas MD, with the diagnosis of Lumbar Spondylolisthesis for a total of 22 visit(s). Discharge Date: 01/13/25 Please see the following information for a summary of their discharge status. Subjective Subjective: PATIENT REPORTS HER BACK PAIN IS MUCH BETTER HOWEVER COMPLICATION OF EMERGENCY EPISODE OF HTN AFTER MISTI AND SHE ENDED UP IN ED WITH BAÑUELOS, SOB AND BLUR RY VISION. SHE STATES SHE IS NOW ON 2 BLOOD PRESSURE MEDICATIONS AND THEY ARE STILL WORKING TO GET HER BLOOD PRESSURE DONW. NATHALY'T WITH DR. PATEL TODAY FOR R LE EDEMA WHICH PATIENT SUSPECTS IS DUE TO HTN MEDS. ALSO SLIPPED AND FELL DOWN 2 STEPS LANDING ON L SIDE SATURDAY DUE TO THEM BEING WET AND MOLDY. SHE HAD A LITTLE BACK PAIN AFTER THAT BUT IT WAS GONE IN 2 DAYS. SHE REPORTS SHE IS INDEP WITH LAND AND WATER EX PROGRAMS NOW AND WAS DOING GREAT WITH HER BACK UNTIL SHE LET THE CHIROPRACTOR ADJUST HER BACK 3 WKS AGO. SHE DOESN'T PLAN TO LET HIM ADJUST IT AGAIN. OTHER THAN A COUPLE OF DAYS OF BACK PAIN AFTER FALL AND CHIROPRACTIC ADJUSTMENT NO BACK PAIN. NO MORE THAN 1/10 R THIGH PAIN AFTER WORK LAST WEEK (PAIN DOWN R LEG TO TOES AFTER CHIROPRACTOR 3 WKS AGO). Pain LBP: Pain Intensity (Out of 10): 0 LE radiculopathy: Pain Intensity (Out of 10): 1 Overall Improvement % Improvement: 80 Objective Objective/Function: PATIENT WAS SEEN TODAY FOR RE-ASSESSMENT OF PROGRESS TOWARD THE SET PT GOALS AND THE NEED FOR FURTHER PHYSICAL THERAPY VS READINESS FOR DISCHARGE. THIS PATIENT HAS MADE GOOD PROGRESS WITH PT AND IS NOW INDEP WITH HOME AND WATER EX PROGRAMS AND IS APPROPRIATE FOR DISCHARGE. SHE DOES CONTINUE TO HAVE DECREASED R LE SENSATION AND STRENGTH COMPARED TO THE L. SHE ALSO HAS R LE EDEMA TODAY AND HAS AN NATHALY'T WITH HER PCP TO ADDRESS IT. SHE ALSO REPORTS UE SX'S TODAY THAT THIS PT RECOMMENDED SHE ADDRESS WITH HER PCP AND SHE IS AGREEABLE. SHE IS ALSO AGREEABLE TO D/C FROM PT AT THIS TIME. UPON EXAM TODAY: Sensory deficit: PATIENT CONTINUES TO HAVE DECREASED LIGHT TOUCH SENSATION R ANT AND LAT THIGH COMPARED TO L. ROM deficit: IKE HS, HIP FLEX AND CALF TIGHTNESS Motor deficit: R HIP 4-/5, KNEE 4/5, ANKLE 5/5. L HIP 5/5, KNEE 5/5, ANKLE 5/5 Dural Signs: NEGATIVE IKE LE'S. Lumbar mvmt loss: flex - MIN - NE ext - MOD - NE R SG - MOD - INCREASES R BACK - NW L SG - MOD - INCREASES R BACK - NW Core strength: POOR Palpation: MILD TENDERNESS LOCALIZED TO THE RIGHT LOWER LUMBAR PARASPINAL REGION. PATIENT CONTINUES TO HAVE MUSCLE ATROPHY OF R PARASPINALS COMPARED TO L. Goals Goal 1:: DECREASE C/O LOW BACK AND R LE SX'S BY AT LEAST 50% TO EASE ADL'S - GOAL MET. NEW GOAL - DECREASE C/O LOW BACK AND R LE SX'S BY AT LEAST 75% TO EASE ADL'S Goal Progress: Goal Met Goal 2:: IMPROVE PERSONAL CARE, LIFTING, SITTING, STANDING, SLEEP, SOCIAL LIFE, TRAVEL, WORK AND HOMEMAKING FUNCTION WITH AT LEAST 5 POINT IMPROVEMENT IN LUMBAR OSWESTRY QUESTIONNAIRE SCORE IMPROVEMENT. Goal Progress: Goal Met Goal 3:: INSTRUCT IN PROPHYLAXIS. Goal Progress: Goal Met Plan Plan: D/C TO INDEP HEP. D/C Information d/c sentence: If there are questions or concerns regarding this patient's physical therapy, please feel free to call me at [phone]. Thank you for the referral of this patient. Sincerely, Alisa Grimes, PT, Cert MDT Balance/Gait/Functional tests Balance/Special Test Scores Oswestry Low Back Score: 6 Improvement % Improvement: 80
== END 2025-01-13 19:00 | disposition home or self-care (01) ==
LOC: PT 09:00
PROVIDERS: PCP Family Medicine; Referring Provider Orthopaedic Surgery Orthopaedic Surgery of the Spine; Visit Provider Orthopaedic Surgery Orthopaedic Surgery of the Spine
DX: M43.16 Spondylolisthesis, lumbar region (principal)
CPT/HCPCS: 97112; 97113; 97162; 97530

== ENCOUNTER → 2025-02-16 | Outpatient (CLI) | payer OTHER, SELFPAY ==
--- NOTE | 2025-02-16 07:58 | US_ITS ---
PROCEDURE: PELVIC (NON ) 02/16/2025 REASON FOR EXAM: FOLLOW UP OVARIAN CYST TECHNIQUE: Procedure Code: USPEL Modality: US Procedure: PELVIC (NON ) COMPARISON: Pelvic ultrasound 01/01/2025 FINDINGS: Measurements: Uterus: Surgically absent Right Ovary: 3.8 x 2.2 x 2.3 cm for volume of 10.3 mL Left Ovary: 4.1 x 2.3 x 2.4 cm for volume of 11.7 mL Uterus: The uterus is surgically absent. Right ovary: Normal size and echotexture. Contains an avascular anechoic lesion measuring 2.3 x 2.1 x 2.2 cm. Left ovary: Normal size and echotexture. There is an avascular anechoic lesion within or adjacent to the left ovary measuring 2.0 x 1.8 x 2.1 cm (previously 2.8 x 2.8 x 2.3 cm on 01/01/2025). Other: Visualized portions of the urinary bladder are unremarkable. US/Pelvic (Non ) IMPRESSION: 1. Simple cyst within or adjacent to the left ovary measuring 1.3 cm, previous ly 2.8 cm on 01/01/2025. 2. Right ovarian simple cyst measuring 2.3 cm. No further follow-up required for these O-RADS 2 findings. Reading Location: [facility]
--- NOTE | 2025-02-16 08:50 | RAD_ITS ---
EXAM: XR Cervical Spine, 6 or More Views CLINICAL INDICATION: CERVICAL RADICULOPATHY TECHNIQUE: Frontal, lateral, oblique and flexion/extension views of the cervical spine. COMPARISON: No relevant prior studies available. FINDINGS: VERTEBRAE: Unremarkable. Normal alignment. No acute fracture or significant dynamic instability. DISC SPACES: No acute findings. No significant narrowing. SOFT TISSUES: Unremarkable. RAD/Cerv Spine Obl/Flex/Ext Comp IMPRESSION: No acute fracture or significant dynamic instability. Reading Location: [id number]
[2025-02-17 04:07] LABS: Carcinoembryonic Antigen 0.9 ng/mL (0.0-4.7)
== END | disposition home or self-care (01) ==
PROVIDERS: PCP Family Medicine; Referring Provider Obstetrics & Gynecology; Visit Provider Obstetrics & Gynecology
DX: M54.12 Radiculopathy, cervical region (principal); C92.10 Chronic myeloid leukemia, BCR/ABL-positive, not having achieved remission; N63.12 Unspecified lump in the right breast, upper inner quadrant; M54.50 Low back pain, unspecified; N83.202 Unspecified ovarian cyst, left side
CPT/HCPCS: 36415; 72052; 76856; 82378; 86304

== ENCOUNTER → 2025-03-10 | Outpatient (CLI) | payer OTHER, SELFPAY ==
--- OUTSIDE RECORDS SUMMARY | 2025-03-10 07:26 | XMS RPT_ITS | CCD ---
Author Organization [facility] Care Team Providers Care Chemical Recovery Operator Name Role Phone EMPLOYEE, HEALTH Attending Unavailable MISC, DOCTOR Primary Care Unavailable EMPLOYEE, HEALTH Attending Unavailable MISC, DOCTOR Primary Care Unavailable Dr. Krystina Calle Primary Care Provider Dr. Krystina Calle Referring Provider [phone] Monie Mckeon Attending Provider [phone] Dr. Krystina Calle Primary Care Provider Dr. Krystina Calle Referring Provider Dr. Monie Mckeon Attending Provider [phone] Dr. Anabelle Peña Attending Provider Dr. Monie Mckeon Referring Provider Marycarmen JAVASCRIPT UI DEVELOPER, JAVASCRIPT UI DEVELOPER-Dov Caban Attending Provider Krystina Calle DO Primary Care Provider [phone] Dr. Krystina Calle Primary Care Provider Dr. Krystina Calle Referring Provider [phone] Monie Mckeon Attending Provider [phone] Monie Mckeon Unavailable Bibi RN, Ligia Unavailable Unavailable Dr. Krystina Calle Primary Care Provider Dr. Anabelle Peña Attending Provider Bibi RN, Ligia Unavailable Unavailable Dr. Krystina Calle Referring Provider [phone] Marycarmen JAVASCRIPT UI DEVELOPER, JAVASCRIPT UI DEVELOPER-C Mee Attending Provider Kasandra Rg Unavailable Unavailabl e Luc HART, Krystina Sharp Primary Care Provider Fabiano Liz DO Unavailable Dr. Krystina Calle Primary Care Provider Dr. Krystina Calle Referring Provider Dr. Monie Mckeon Attending Provider [phone] Dr. Reggie Winslow Attending Provider Carlyleys DO, Krystina Sharp Primary Care Provider Monie Mckeon MD Unavailable [phone] Dr. Krystina Calle DO Primary Care Provider [phone] Luc HART, Dr. Flaherty Referring Provider Dr. Monie Mckeon MD Attending Provider [phone] Dr. Fabiano Liz DO Attending Provider Dr. Fabiano Liz DO Referring Provider ESHA READ Attending Provider ESHA READ Referring Provider Dr. Krystina Calle DO Primary Care Provider [phone] Mireya Ashton Attending Provider ESHA READ Attending Provider ESHA READ Referring Provider Dr. Krystina Calle DO Referring Provider [phone] Dr. Dallas Rojas MD Attending Provider Dr. Krystina Calle DO Primary Care Provider [phone] Krystina Calle DO Attending Provider Assessment, Health Risk Attending Provider Unava ilfabrice Assessment, Health Risk Referring Provider Cindava Dr. Dallas Caballero MD Referring Provider Dr. Krystina Calle DO Primary Care Provider [phone] Bob RIVERA, Dr. Haynes Referring Provider Pond DO, Dr. Stewart Emergency Provider [phone] Malys DO, Dr. Flaherty Primary Care Physician Malys DO, Dr. Flaherty Attending Physician [phone] Malys DO, Dr. Flaherty Referring Provider [phone] Assessment, Health Risk Attending Physician Unav ailable Dejah HART, Dr. Stewart Attending Physician Pond DO, Dr. Stewart Emergency Department Physic lyla Masci DO, Dr. Mario Attending Physician Mascjesenia DO, Dr. Mario Referring Provider Bob RIVERA, Dr. Haynes Attending Physician Bob RIVERA, Dr. Haynes Referring Provider MALYS, KRYSTINA A Primary Care Unavailable MASCI, FABIANO A Referring Unavailable ESHA READ Attending Unavailable MASCI, FABIANO A Referring Unavailable MALYS, KRYSTINA A Primary Care Unavailable MASCI, FABIANO A Referring Unavailable MALYS, KRYSTINA A Primary Care Unavailable MASCI, FABIANO Sharp Attending Unavailable MASCI, FABIANO A Referring Unavailable MALYS, KRYSTINA A Primary Care Unavailable MALYS, KRYSTINA A Primary Care Unavailable MALYS, KRYSTINA A Primary Care Unavailable MASCI, FABIANO A Attending Unavailable MALYS, KRYSTINA A Primary Care Unavailable MASCI, FABIANO A Referring Unavailable MASCI, FABIANO A Referring Unavailable MALYS, KRYSTINA A Primary Care Unavailable MALYS, KRYSTINA A Primary Care Unavailable MASCI, FABIANO A Referring Unavailable MALYS, KRYSTINA A Primary Care Unavailable MALYS, KRYSTINA A Primary Care Unavailable MASCI, FABIANO A Attending Unavailable MASCI, FABIANO A Referring Unavailable MALYS, KRYSTINA A Primary Care Unavailable Malys, Krystina Primary Care Unavailable Mireya Cortez Attending Unavailable Malys, Krystina Primary Care Unavailable SAMARAS, DEMETRIA Attending Unavailable SAMARAS, DEMETRIA Referring Unavailable Marcanthony, Monie Attending Unavailable Marcanthony, Monie Referring Unavailable Malys, Krystina Primary Care Unavailable Assessment, Health Risk Referring Unavaila ble Malys, Krystina Primary Care Unavailable Assessment, Health Risk Attending Unavaila ble Malys, Krystina Primary Care Unavailable Rojas, Dallas Attending Unavailable Rojas, Dallas Referring Unavailable Malys, Krystina Primary Care Unavailable Rojas, Dallas Attending Unavailable Malys, Krystina Referring Unavailable Marcanthony, Monie Attending Unavailable Malys, Krystina Primary Care Unavailable Malys, Krystina Referring Unavailable Malys, Krystina Primary Care Unavailable Malys, Krystina Attending Unavailable Malys, Krystina Referring Unavailable Malys, Krystina Primary Care Unavailable Masci, Fabiano Attending Unavailable Masci, Fabiano Referring Unavailable Malys, Krystina Primary Care Unavailable Marcanthony, Monie Referring Unavailable Marcanthony, Monie Attending Unavailable Masci, Fabiano Attending Unavailable Masci, Fabiano Referring Unavailable Malys, Krystina Primary Care Unavailable Malys, Krystina Primary Care Unavailable Terry Pond Attending Unavailable SAMARAS, DEMETRIA Attending Unavailable SAMARASDEMETRIA Referring Unavailable Malys, Krystina Primary Care Unavailable Allergies Allergy Classification Reported Allergen(s) Allergy Type Date of Onset Reaction(s) Facility (20 sources) Nalbuphine; Translations: [NALBUPHINE HCL] Drug Allergy 6 Vomiting [facility] (20 sources) Iodinated Contrast Media; Translations: [IODINATED CONTRAST MEDIA] Allergy to substance 2 Hives, Swelling [facility] Comment on above: gets hives even with 1 hour premeds Medications Current Medications Medication Drug Class(es) Dates [...] take 1 tablet by mouth once daily Comment on above: Take 1 tablet by todd once daily. amLODIPine 5 mg oral tablet (2 sources) Dihydropyridine Calcium Channel Cherelle Start: 11-28-2024 take 1 tablet by mouth once daily asciminib (SCEMBLIX) 40 mg tablet (20 sources) Start: 09-29-2024 take 2 tablets by mouth once daily asciminib (SCEMBLIX) 40 mg tablet Take 2 tablets (80 mg) by mouth once daily on an empty stomach, 1 hour before or 2 hours after eating 60 tablet 5 11/25/2024 3:11 PM EDT 09/29/2024 Active Start: 09-29-2024 take 2 tablets by mo uth once daily asciminib (SCEMBLIX) 40 mg tablet Take 2 tablets (80 mg) by mouth once daily on an empty stomach, 1 hour before or 2 hours after eating 60 tablet 5 10/28/2024 11:12 AM EDT 09/29/2024 Active Start: 09-29-2024 take 2 tablets by mo uth once daily asciminib (SCEMBLIX) 40 mg tablet Take 2 tablets (80 mg) by mouth once daily on an empty stomach, 1 hour before or 2 hours after eating 60 tablet 5 10/01/2024 11:14 AM EDT 09/29/2024 Active Start: 09-29-2024 take 2 tablets by mo uth once [...] once daily. 60 tablet 5 04/27/2024 Active cloNIDine hydrochloride 0.1 mg oral tablet (2 sources) Central alpha-2 Adrenergic Agonist Start: 11-28-2024 furosemide 20 mg oral tablet (20 sources) Loop Diuretic Start: 02-19-2023 take 1 tablet by mouth every other day as needed for edema Start: 10-22-2022 take 1 tablet by todd [...] mg oral capsule (20 sources) l-Thyroxine Start: take 1 capsule by mouth once daily Start: 10-01-2013 End: 07-25-2022 Levothyroxine 50 MCG [...] hours as needed for nausea and vomiting Comment on above: Take 1 tablet by todd th every 8 hours as needed (For chemotherapy induced nausea and vomiting). pantoprazole 40 mg delayed release oral tablet (9 sources) Proton Pump Inhibitor Start: 07-02-19 take [...] 180 tablet 3 05/13/2024 Active Start: 02-24-2024 Start: 10-03-2023 End: 05-13-2024 potassium chloride (K-TAB) [...] on above: Take 1 tablet by todd twice daily. Take 1 tablet by todd once daily. predniSONE 20 mg oral tablet [...] mg / cholecalciferol 600 unt oral tablet (19 sources) Vitamin D Start: 08-16-2017 End: 02-19-2023 Calcium Carbonate-Vitamin D3 1 EACH tablet Discontinued 2 NMA PO DAILY August 16, 2017 12:00am February 19, 2023 10:30am Start: 08-16-2017 End: 02-19-2023 Calcium Carbonate-Vitamin D3 Discontinued 2 EACH PO DAILY August 16, 2017 12:00am February 19, 2023 10:30am celecoxib 200 mg oral capsule (19 sources) Nonsteroidal Anti-inflammatory Drug Start: 05-08-2019 End: [...] daily. cyclobenzaprine hydrochloride 10 mg oral tablet (19 sources) Muscle Relaxant Start: End: take 1 tablet by mouth three times daily as needed for muscle spasms Cyclobenzaprine 10 MG tablet Discontinued 10 mg PO THREE TIMES A DAY as needed for Muscle Spasm 20 0 January 13, 2019 12:00am December 24, 2019 11:34am LORazepam 1 mg oral tablet (6 sources) Benzodiazepine Start: End: LORazepam (ATIVAN) 1 mg tablet Indications: [...] 2023 10:31am oseltamivir 75 mg oral capsule (19 sources) Neuraminidase Inhibitor Start: 05-08-2019 End: 12-24-2019 take 1 capsule by mouth twice daily Oseltamivir 75 MG capsule Discontinued 75 mg PO TWICE A DAY 9 May 08, 2019 1:00am December 24, 2019 [...] 24hr Discontinued 50 mg PO DAILY 30 2 June 28, 2022 12:00am July 04, 2022 7:58am Start: 06-28-2022 End: 07-04-2022 take 1 capsule by mouth once daily Topiramate 50 mg capsule,extended release 24hr Discontinued 50 mg PO DAILY 30 2 June 28, 2022 12:00am July 04, 2022 [...] Vit E-Vit K-Safflower Oil 52 ML oil (8 sources) Start: 01-13-2019 End: 02-19-2023 Vit E-Vit K-Safflower Oil 52 ML oil Discontinued January 13, 2019 12:00am February 19, 2023 10:31am vitamin a 2.4 mg oral capsule (19 sources) Vitamin A Start: 12-24-2019 End: 02-19-2023 [...] on above: Take 1,000 mcg by mo uth once daily. Problems Active Problems Problem Classification Problem Date Documented Da te Episodic/Chronic Deficiency and other anemia (2 sources) Iron deficiency anemia; Translations: [Iron deficiency anemia, unspecified] 10-22-2022 Episodic Deficiency and other anemia (1 source) Iron deficiency anemia secondary to inadequate dietary iron intake; Translations: [Other iron deficiency anemias] 10-30-2023 Episodic Deficiency and other anemia (1 source) Microcytic anemia; Translations: [Iron deficiency anemia, unspecified] 11-04-2024 Episodic Deficiency and other anemia (1 source) Iron deficiency anemia, unspecified; Translations: [Microcytic anemia] Onset: 5 Episodic Diseases of white blood cells (5 sources) Leukocytosis; Translations: [Other elevated white blood cell count] Chronic Disorders of lipid metabolism (14 sources) Hypercholesterolemia; Translations: [Pure hypercholesterolemia, unspecified] 06-18-2022 Chronic Comment on above: continue weight loss , nutrition consult placed, referral to PCP to see if medication is desired Esophageal disorders (20 sources) Gastroesophageal reflux disease; Translations: [Gastro-esophageal reflux disease without esophagitis] Onset: 5 Chronic Comment on above: weight loss planned Essential hypertension (3 sources) Hypertensive disorder; Translations: [Essential (primary) hypertension] Onset: 5 11-28-2024 Chronic Headache; including migraine (2 sources) Headache; Translations: [Headache] 11-28-2024 Episodic Influenza (19 sources) Influenza due to Influenza A virus; Translations: [Influenza due to other identified influenza virus with other respiratory manifestations] 05-09-2019 Episodic Leukemias (20 sources) Chronic myeloid leukemia; Translations: [Chronic myeloid leukemia, BCR/ABL-positive, not having achieved remission] Onset: Chronic Lymphadenitis (2 sources) Mediastinal lymphadenopathy; Translations: [Localized enlarged lymph nodes] 12-07-2024 Episodic Menopausal disorders (20 sources) Menopausal syndrome; Translations: [Menopausal and female climacteric states] Chronic Comment on above: vaginal dryness, patrizia allie and sensation changes. support given reviewed interventions if desired. AEH ordered Nonmalignant breast conditions (11 sources) Breast lump; Translations: [Unspecified lump in the right breast, unspecified quadrant] 12-31-2022 Episodic Other acquired deformities (5 sources) Lumbar spondylolisthesis; Translations: [Spondylolisthesis, lumbar region] 08-20-2024 Episodic Other acquired deformities (1 source) Spondylolisthesis, lumbar region; Translations: [Spondylolisthesis, lumbar region] Onset: Episodic Other aftercare (1 source) Drug therapy finding; Translations: [Encounter for therapeutic drug level monitoring] 10-24-2022 Episodic Other ear and sense organ disorders (1 source) Impacted cerumen in left ear; Translations: [Impacted cerumen, left ear] Episodic Other ear and sense organ disorders (1 source) Hearing loss of left ear; Translations: [Impacted cerumen, left ear] Episodic Other gastrointestinal disorders (2 sources) History of gastroesophageal reflux disease; Translations: [Personal history of other diseases of the digestive system] 11-28-2024 Episodic Other lower respiratory disease (2 sources) Cough; Translations: [Acute cough] Episodic Other lower respiratory disease (2 sources) Dyspnea; Translations: [Dyspnea, unspecified] 04-26-2023 Episodic Other non-traumatic joint disorders (19 sources) Pain in left knee; Translations: [Left knee pain] 03-27-2018 Episodic Other non-traumatic joint disorders (1 source) Pain in unspecified joint; Translations: [Pain in unspecified joint] Onset: 5 Episodic Other nutritional; endocrine; and metabolic disorders (16 sources) Obesity; Translations: [Other obesity] 05-21-2022 Chronic Comment on above: IF 16:8. discussed w eight management options, patient to decide on nutritional plan. - 245 4m- 226 discussed options- plan making generic qsymia with 1/2 dose phenteramine and switch to topamax extended release 50 mg. discussed calorie restriction [id number] mahi when in her eating window. use Debit[employer] for tracking. nutrition consult Other nutritional; endocrine; and metabolic disorders (16 sources) Body mass index 30+ - obesity; Translations: [Body mass index (BMI) 39.0-39.9, adult] 05-21-2022 Chronic Comment on above: discussed calorie re striction during fasting window- [phone] mahi depending on activity Other nutritional; endocrine; [...] nutritional and metabolic disease] 04-27-2024 Episodic Other screening for suspected conditions (not mental disorders or infectious disease) (8 sources) Patient encounter status; Translations: [Encounter for screening for malignant neoplasm of colon] 09-16-2023 Episodic Other upper respiratory infections (1 source) Acute upper respiratory infection; Translations: [Acute upper respiratory infection, unspecified] 06-11-2023 Episodic Ovarian cyst (1 source) Unspecified ovarian cyst, unspecified side; Translations: [Unspecified ovarian cyst, unspecified side] Onset: 5 Episodic Thyroid disorders (3 sources) Acquired hypothyroidism; Translations: [Hypothyroidism, unspecified] Onset: 5 10-22-2022 Chronic Unclassified (2 sources) Spondylolisthesis of lumbar region Unclassified (4 sources) M43.16 - Spondylolisthesis, lumbar region Unclassified (1 source) Low back pain, unspecified; Translations: [Low back pain, unspecified] Onset: 5 Past or Other Problems Problem Classification Problem Date Documented Da te Episodic/Chronic Biliary tract disease (20 sources) Disorder of gallbladder; Translations: [Other specified diseases of gallbladder] Onset: 09-07-2009 09-07-2009 Episodic Other and unspecified benign neoplasm (20 sources) Melanocytic nevus of skin ; Translations: [Melanocytic nevi of scalp and neck] Onset: 05-23-2015 05-23-2015 Episodic Other and unspecified benign neoplasm (20 sources) Dermal cellular nevus ; Translations: [Other benign neoplasm of skin, unspecified] Onset: 06-14-2015 06-14-2015 Episodic Other skin disorders (20 sources) Sebaceous cyst of skin; Translations: [Sebaceous cyst] Onset: 05-23-2015 05-23-2015 Episodic Spondylosis; intervertebral disc disorders; other back problems (20 sources) Acute back pain with sciatica; Translations: [Lumbago with sciatica, right side] Onset: 06-23-2024 06-19-2024 Episodic Results Test Name Value Interpretation Reference Range Facility BCR/ABL1 P190 QUANTITATIVE P CR BLOODon 01-25-2025 BCR/ABL1 P190 INTERPRETATION Normal [facility] Comment on above: Order Comment: Speci men Type: BLOOD SPECIMEN Ordering Facility: [facility] Address: [address] [place] [address] Result Comment: BCR/ ABL1 p190 Quantitative PCR Laboratory Accession Number: [id number] Result: UNDETECTED NCN: NA Interpretation: p190 BCR/ABL1 transcripts were not detected. [...] this sample, and cDNA prepared by reverse research engineer marine equipment. Real time PCR was performed using primers for e1a2 BCR/ABL1 fusion transcripts and ABL1 transcripts (qPCR BCR/ABL minor, Kanga, [place], [place]). This test does not detect p210 (e13a2 or e14a2) or other rare BCR/ABL1 transcripts. This assay has a limit of quantification of 0.0036% (LR4.4) and limit of detection of 0.0025% (LR4.6). Disclaimer: This test was developed and its performance characteristics determined by [facility]'s Pathology and Laboratory Medicine Department. It has not been cleared or approved by the FDA. [facility]'s Pathology and Laboratory Medicine Department is regulated under CLIA as certified to perform high-complexity testing. This test is used for clinical purposes. It should not be regarded as investigational or for research. Test performed at [facility], [address] [place] [address]. CLIA Number: [id number] Interpretation performed by Jessica Bennett, PhD, [facility] Performed By: #### 5 7021-8 #### [facility] CLIA [id number] [address] [place] [address] [place] BCR/ABL1 [id number] BLOOD( AND BCR/ABL1:ABL1)on 01-25-2025 BCR/ABL1 P190 NCN(%BCR/ABL1:ABL1) N/A Normal [facility] Comment on above: Order Comment: Speci men Type: BLOOD SPECIMEN Ordering Facility: [facility] Address: [address] [place] [address] Performed By: #### 5 7021-8 #### [facility] CLIA [id number] [address] [place] [address] [place] BCR/ABL1 P210 %IS PANELon BCR/ABL1 P210 %IS Less than 0.002 Normal [facility] Comment on above: Order Comment: Speci men Type: BLOOD SPECIMEN Ordering Facility: [facility] Address: [address] [place] [address] Performed By: #### 5 7021-8 #### [facility] CLIA [id number] [address] [place] [address] [place] BCR/ABL1 P210 MR Greater than 4.7 Normal [facility] Comment on above: Order Comment: Speci men Type: BLOOD SPECIMEN Ordering Facility: [facility] Address: [address] [place] [address] Performed By: #### 5 7021-8 #### [facility] CLIA [id number] [address] [place] [address] [place] BCR/ABL1 P210 QUANTITATIVE P CR BLOODon 01-25-2025 BCR/ABL1 P210 INTERPRETATION Normal [facility] Comment on above: Order Comment: Speci men Type: BLOOD SPECIMEN Ordering Facility: [facility] Address: [address] [place] [address] Result Comment: BCR/ ABL1 p210 Quantitative PCR Laboratory Accession Number: [id number] Result: DETECTED MR: Greater than 4.7 %IS: Less than 0.002 Interpretation: p210 BCR/ABL1 transcripts were detected below the limits of quantification of this assay. Quantitative results are expressed on the International Scale (IS) and a log molecular response (MR) is calculated. On this scale, a value of less than or equal to 0.1% corresponds to a major molecular response (MMR or MR3.0). Methodology: The [employer] QuantideX BCR/ABL IS assay is an FDA-cleared [...] 2015;29:999-1003 Interpretation performed by Jessica Bennett, PhD, [facility] Performed By: #### 5 7021-8 #### [facility] [id number] [address] [place] [address] [place] CBC W Auto Differential pane l (Bld)on 01-25-2025 Basophils (Bld) [#/Vol] 0.06 10*3/uL Normal <0.[address] [facility] Comment on above: Order Comment: Speci men Type: BLOOD SPECIMENOrdering Facility: [facility] Address: [address] [place] [address] Performed By: #### 5 7021-8 ####[facility] [id number] [place] [address] [place] Basophils/100 WBC (Bld) 0.8 % Normal [facility] Comment on above: Order Comment: Speci men Type: BLOOD SPECIMENOrdering Facility: [facility] Address: [address] [place] [address] Performed By: #### 5 7021-8 ####[facility] DEEJAYWTINALIA [id number] [place] [address] [place] Differential cell count method Nom (Bld) Auto Normal [facility] Comment on above: Order Comment: Speci men Type: BLOOD SPECIMENOrdering Facility: [facility] Address: [address] [place] [address] Performed By: #### 5 7021-8 ####[facility] [id number] [place] [address] [place] Eosinophils (Bld) [#/Vol] 0.25 10*3/uL Normal <0.[address] [facility] Comment on above: Order Comment: Speci men Type: BLOOD SPECIMENOrdering Facility: [facility] Address: [address] [place] [address] Performed By: #### 5 7021-8 ####[facility] DEEJAYMandyTINALIA [id number] [place] [address] [place] Eosinophils/100 WBC (Bld) 3.5 % Normal [facility] Comment on above: Order Comment: Speci men Type: BLOOD SPECIMENOrdering Facility: [facility] Address: [address] [place] [address] Performed By: #### 5 7021-8 ####[facility] [id number] [place] [address] [place] Erythrocyte distribution width (RBC) [Ratio] 12.9 % Normal 11.5-15.[address] [facility] Comment on above: Order Comment: Speci men Type: BLOOD SPECIMENOrdering Facility: [facility] Address: [address] [place] [address] Performed By: #### 5 7021-8 ####[facility] GAYLENCLETICIA [id number] [place] [address] [place] Hematocrit (Bld) [Volume fraction] 36.8 % Normal 36.0-46.[address] [facility] Comment on above: Order Comment: Speci men Type: BLOOD SPECIMENOrdering Facility: [facility] Address: [address] [place] [address] Performed By: #### 5 7021-8 ####[facility] [id number] [place] [address] [place] Hemoglobin (Bld) [Mass/Vol] 12.8 g/dL Normal 11.5-15.[address] [facility] Comment on above: Order Comment: Speci men Type: BLOOD SPECIMENOrdering Facility: [facility] Address: [address] [place] [address] Performed By: #### 5 7021-8 ####[facility]ICIA [id number] [place] [address] [place] Immature granulocytes (Bld) [#/Vol] 0.03 10*3/uL Normal <0.[address] [facility] Comment on above: Order Comment: Speci men Type: BLOOD SPECIMENOrdering Facility: [facility] Address: [address] [place] [address] Performed By: #### 5 7021-8 ####[facility] [id number] [place] [address] [place] Immature granulocytes/100 WBC (Bld) 0.4 % Normal [facility] Comment on above: Order Comment: Speci men Type: BLOOD SPECIMENOrdering Facility: [facility] Address: [address] [place] [address] Performed By: #### 5 7021-8 ####[facility] RIVERSIDEWNCLIA [id number] [place] [address] [place] Lymphocytes (Bld) [#/Vol] 1.79 10*3/uL Normal 1.00-4.[address] [facility] Comment on above: Order Comment: Speci men Type: BLOOD SPECIMENOrdering Facility: [facility] Address: [address] [place] [address] Performed By: #### 5 7021-8 ####[facility] [id number] [place] [address] [place] Lymphocytes/100 WBC (Bld) 24.9 % Normal [facility] Comment on above: Order Comment: Speci men Type: BLOOD SPECIMENOrdering Facility: [facility] Address: [address] [place] [address] Performed By: #### 5 7021-8 ####[facility]ENN[facility]I [id number] [place] [address] [place] MCH (RBC) [Entitic mass] 27.7 pg Normal 26.0-34.[address] [facility] Comment on above: Order Comment: Speci men Type: BLOOD SPECIMENOrdering Facility: [facility] Address: [address] [place] [address] Performed By: #### 5 7021-8 ####[facility] COMPANYLIA [id number] [place] [address] [place] MCHC (RBC) [Mass/Vol] 34.8 g/dL Normal 30.5-36.0 [facility] Comment on above: Order Comment: Speci men Type: BLOOD SPECIMENOrdering Facility: [facility] Address: [address] [place] [address] Performed By: #### 5 7021-8 ####[facility] [id number] [place] [address] [place] MCV (RBC) [Entitic vol] 79.7 fL Low 80.0-100.[address] [facility] Comment on above: Order Comment: Speci men Type: BLOOD SPECIMENOrdering Facility: [facility] Address: [address] [place] [address] Performed By: #### 5 7021-8 ####[facility] [id number] [place] [address] [place] Monocytes (Bld) [#/Vol] 0.50 10*3/uL Normal <0.[address] [facility] Comment on above: Order Comment: Speci men Type: BLOOD SPECIMENOrdering Facility: [facility] Address: [address] [place] [address] Performed By: #### 5 7021-8 ####[facility] [id number] [place] [address] [place] Monocytes/100 WBC (Bld) 7.0 % Normal [facility] Comment on above: Order Comment: Speci men Type: BLOOD SPECIMENOrdering Facility: [facility] Address: [address] [place] [address] Performed By: #### 5 7021-8 ####[facility] [id number] [place] [address] [place] Neutrophils (Bld) [#/Vol] 4.55 10*3/uL Normal 1.45-7.[address] [facility] Comment on above: Order Comment: Speci men Type: BLOOD SPECIMENOrdering Facility: [facility] Address: [address] [place] [address] Performed By: #### 5 7021-8 ####[facility] [id number] [place] [address] [place] Neutrophils/100 WBC (Bld) 63.4 % Normal [facility] Comment on above: Order Comment: Speci men Type: BLOOD SPECIMENOrdering Facility: [facility] Address: [address] [place] [address] Performed By: #### 5 7021-8 ####[facility] DEEJAYMandyNCLETICIA [id number] [place] [address] [place] Nucleated RBC (Bld) [#/Vol] 10*3/uL Normal <0.[address] [facility] Comment on above: Order Comment: Speci men Type: BLOOD SPECIMENOrdering Facility: [facility] Address: [address] [place] [address] Performed By: #### 5 7021-8 ####[facility] [id number] [place] [address] [place] Nucleated RBC/100 WBC (Bld) [Ratio] 0.0 /100 WBC Normal [facility] Comment on above: Order Comment: Speci men Type: BLOOD SPECIMENOrdering Facility: [facility] Address: [address] [place] [address] Performed By: #### 5 7021-8 ####[facility] [id number] [place] [address] [place] Platelet mean volume (Bld) [Entitic vol] 10.2 fL Normal 9.0-12.[address] [facility] Comment on above: Order Comment: Speci men Type: BLOOD SPECIMENOrdering Facility: [facility] Address: [address] [place] [address] Performed By: #### 5 7021-8 ####[facility] [id number] [place] [address] [place] Platelets (Bld) [#/Vol] 221 10*3/uL Normal 150-[address] [facility] Comment on above: Order Comment: Speci men Type: BLOOD SPECIMENOrdering Facility: [facility] Address: [address] [place] [address] Performed By: #### 5 7021-8 ####[facility]OMENNCLIA [id number] [place] [address] [place] RBC (Bld) [#/Vol] 4.62 10*6/uL Normal 3.90-5.20 [facility] Comment on above: Order Comment: Speci men Type: BLOOD SPECIMENOrdering Facility: [facility] Address: [address] [place] [address] Performed By: #### 5 7021-8 ####[facility] [id number] [place] [address] [place] WBC (Bld) [#/Vol] 7.18 10*3/uL Normal 3.70-11.00 [facility] Comment on above: Order Comment: Speci men Type: BLOOD SPECIMENOrdering Facility: [facility] Address: [address] [place] [address] Performed By: #### 5 7021-8 ####[facility]ENNCLIA [id number] [place] [address] [place] Comprehensive metabolic 2000 panelon 01-25-2025 Albumin [Mass/Vol] 4.0 g/dL Normal 3.9-4.[address] [facility] Comment on above: Order Comment: Speci men Type: BLOOD SPECIMENOrdering Facility: [facility] Address: [address] [place] [address] Performed By: #### 2 4323-8 ####[facility]ENN[facility] [id number] [place] [address] [place] ALP [Catalytic activity/Vol] 87 U/L Normal 34-[address] [facility] Comment on above: Order Comment: Speci men Type: BLOOD SPECIMENOrdering Facility: [facility] Address: [address] [place] [address] Performed By: #### 2 4323-8 ####[facility]PITALTOWNCLIA [id number] [place] [address] [place] ALT [Catalytic activity/Vol] 68 U/L High 7-[address] [facility] Comment on above: Order Comment: Speci men Type: BLOOD SPECIMENOrdering Facility: [facility] Address: [address] [place] [address] Performed By: #### 2 4323-8 ####[facility] MILLTOWNCLIA [id number] [place] [address] [place] Anion gap [Moles/Vol] 9 mmol/L Normal 8-15 [facility] Comment on above: Order Comment: Speci men Type: BLOOD SPECIMENOrdering Facility: [facility] Address: [address] [place] [address] Performed By: #### 2 4323-8 ####[facility] MILLTOWNCLIA [id number] [place] [address] [place] AST [Catalytic activity/Vol] 44 U/L High 13-[address] [facility] Comment on above: Order Comment: Speci men Type: BLOOD SPECIMENOrdering Facility: [facility] Address: [address] [place] [address] Performed By: #### 2 4323-8 ####[facility] MILLTOWNCLIA [id number] [place] [address] [place] Bilirubin [Mass/Vol] 0.5 mg/dL Normal 0.2-1.3 [facility] Comment on above: Order Comment: Speci men Type: BLOOD SPECIMENOrdering Facility: [facility] Address: [address] [place] [address] Performed By: #### 2 4323-8 ####[facility] MILLTOWNCLIA [id number] [place] [address] [place] Calcium [Mass/Vol] 8.8 mg/dL Normal 8.5-10.[address] [facility] Comment on above: Order Comment: Speci men Type: BLOOD SPECIMENOrdering Facility: [facility] Address: [address] [place] [address] Performed By: #### 2 4323-8 ####[facility] RIVERSIDEWNCLIA [id number] [place] [address] [place] Chloride [Moles/Vol] 106 mmol/L Normal 98-107 [facility] Comment on above: Order Comment: Speci men Type: BLOOD SPECIMENOrdering Facility: [facility] Address: [address] [place] [address] Performed By: #### 2 4323-8 ####[facility] RIVERSIDEWNCLIA [id number] [place] [address] [place] CO2 [Moles/Vol] 24 mmol/L Normal 22-[address] [facility] Comment on above: Order Comment: Speci men Type: BLOOD SPECIMENOrdering Facility: [facility] Address: [address] [place] [address] Performed By: #### 2 4323-8 ####[facility] [id number] [place] [address] [place] Creatinine [Mass/Vol] 0.59 mg/dL Normal 0.58-0.96 [facility] Comment on above: Order Comment: Speci men Type: BLOOD SPECIMENOrdering Facility: [facility] Address: [address] [place] [address] Performed By: #### 2 4323-8 ####[facility]ENNCLIA [id number] [place] [address] [place] eGFRcr SerPlBld CKD-EPI 2020 111 mL/min/1.73m??? Normal >=[address] [facility] Comment on above: Order Comment: Speci men Type: BLOOD SPECIMENOrdering Facility: [facility] Address: [address] [place] [address] Result Comment: Antoinette mated Glomerular Filtration Rate [...] Performed By: #### 2 4323-8 ####[facility] [id number] [place] [address] [place] Glucose [Mass/Vol] 149 mg/dL High 74-[address] [facility] Comment on above: Order Comment: Kaitlin shafer Type: BLOOD SPECIMENOrdering Facility: [facility] Address: [address] [place] [address] Result Comment: The [place] Diabetes Association (ADA) provides guidance for cutoff [...] Standards of Medical Care in Diabetes 2016, [place] [employer]. Diabetes Care. 2016.39(Suppl 1). Performed By: #### 2 4323-8 ####[facility] [id number] [place] [address] [place] Potassium [Moles/Vol] 3.5 mmol/L Low 3.7-5.1 [facility] Comment on above: Order Comment: Kaitlin shafer Type: BLOOD SPECIMENOrdering Facility: [facility] Address: [address] [place] [address] Performed By: #### 2 4323-8 ####[facility] [id number] [place] [address] [place] Protein [Mass/Vol] 6.3 g/dL Normal 6.3-8.[address] [facility] Comment on above: Order Comment: Speci men Type: BLOOD SPECIMENOrdering Facility: [facility] Address: [address] [place] [address] Performed By: #### 2 4323-8 ####[facility] HOSPITALAron [id number] [place] [address] [place] Sodium [Moles/Vol] 139 mmol/L Normal 136-[address] [facility] Comment on above: Order Comment: Speci men Type: BLOOD SPECIMENOrdering Facility: [facility] Address: [address] [place] [address] Performed By: #### 2 4323-8 ####[facility] DEEJAYOLIVIA HOSPITAL AND CLINICSAron [id number] [place] [address] [place] Urea nitrogen [Mass/Vol] 13 mg/dL Normal 7-[address] [facility] Comment on above: Order Comment: Speci men Type: BLOOD SPECIMENOrdering Facility: [facility] Address: [address] [place] [address] Performed By: #### 2 4323-8 ####[facility] COMPANYLIAron [id number] [place] [address] [place] PT D/C Summary (1)on 025 PT D/C Summary (1) [facility] Physical Therapy [address] [place] [address] / REHABILITATION SERVICES DISCHARGE SUMMARY MR#: [id number] Acct: [id number] Name: LIBIA OLIVAS FRIDA Rep #: [id number] : 1975 49 From: Alisa Grimes PT, Cert. MDT Referring Dr.: Dr. Dallas Rojas MD Status: REG RCR Insurance: [facility] SELF PAY INSURANCE Discharge Summary D/C summary: It has been my pleasure to treat LIBIA OLIVAS referred by Dr. Dallas Rojas MD, with the diagnosis of Lumbar Spondylolisthesis for a total of 22 visit(s). Discharge Date: 01/13/25 Please see the following information for a summary of their discharge status. Subjective Subjective: PATIENT REPORTS HER BACK PAIN IS MUCH BETTER HOWEVER COMPLICATION OF EMERGENCY EPISODE OF HTN AFTER MISTI AND SHE ENDED UP IN ED WITH BAÑUELOS, SOB AND BLURRY VISION. SHE STATES SHE IS NOW ON 2 BLOOD PRESSURE MEDICATIONS AND THEY ARE STILL WORKING TO GET HER BLOOD PRESSURE DONW. NATHALY'T WITH DR. CALLE TODAY FOR R LE EDEMA WHICH PATIENT SUSPECTS IS DUE TO HTN MEDS. ALSO SLIPPED AND FELL DOWN 2 STEPS LANDING ON L SIDE SATURDAY DUE TO THEM BEING WET AND MOLDY. SHE HAD A LITTLE BACK PAIN AFTER THAT BUT IT WAS GONE IN 2 DAYS. SHE REPORTS SHE IS INDEP WITH LAND AND WATER EX PROGRAMS NOW AND WAS DOING GREAT WITH HER BACK UNTIL SHE LET THE CHIROPRACTOR ADJUST HER BACK 3 WKS AGO. SHE DOESN'T PLAN TO LET HIM ADJUST IT AGAIN. OTHER THAN A COUPLE OF DAYS OF BACK PAIN AFTER FALL AND CHIROPRACTIC ADJUSTMENT NO BACK PAIN. NO MORE THAN 1/10 R THIGH PAIN AFTER WORK LAST WEEK (PAIN DOWN R LEG TO TOES AFTER CHIROPRACTOR 3 WKS AGO). Pain LBP: Pain Intensity (Out of 10): 0 LE radiculopathy: Pain Intensity (Out of 10): 1 Overall Improvement % Improvement: 80 Objective Objective/Function: PATIENT WAS SEEN TODAY FOR RE-ASSESSMENT OF PROGRESS TOWARD THE SET PT GOALS AND THE NEED FOR FURTHER PHYSICAL THERAPY VS READINESS FOR DISCHARGE. THIS PATIENT HAS MADE GOOD PROGRESS WITH PT AND IS NOW INDEP WITH HOME AND WATER EX PROGRAMS AND IS APPROPRIATE FOR DISCHARGE. SHE DOES CONTINUE TO HAVE DECREASED R LE SENSATION AND STRENGTH COMPARED TO THE L. SHE ALSO HAS R LE EDEMA TODAY AND HAS AN NATHALY'T WITH HER PCP TO ADDRESS IT. SHE ALSO REPORTS UE SX'S TODAY THAT THIS PT RECOMMENDED SHE ADDRESS WITH HER PCP AND SHE IS AGREEABLE. SHE IS ALSO AGREEABLE TO D/C FROM PT AT THIS TIME. UPON EXAM TODAY: Sensory deficit: PATIENT CONTINUES TO HAVE DECREASED LIGHT TOUCH SENSATION R ANT AND LAT THIGH COMPARED TO L. ROM deficit: IKE HS, HIP FLEX AND CALF TIGHTNESS Motor deficit: R HIP 4-/5, KNEE 4/5, ANKLE 5/5. L HIP 5/5, KNEE 5/5, ANKLE 5/5 Dural Signs: NEGATIVE IKE LE'S. Lumbar mvmt loss: flex - MIN - NE ext - MOD - NE R SG - MOD - INCREASES R BACK - NW L SG - MOD - INCREASES R BACK - NW Core strength: POOR Palpation: MILD TENDERNESS LOCALIZED TO THE RIGHT LOWER LUMBAR PARASPINAL REGION. PATIENT CONTINUES TO HAVE MUSCLE ATROPHY OF R PARASPINALS COMPARED TO L. Goals Goal 1:: DECREASE C/O LOW BACK AND R LE SX'S BY AT LEAST 50% TO EASE ADL'S - GOAL MET. NEW GOAL - DECREASE C/O LOW BACK AND R LE SX'S BY AT LEAST 75% TO EASE ADL'S Goal Progress: Goal Met Goal 2:: IMPROVE PERSONAL CARE, LIFTING, SITTING, STANDING, SLEEP, SOCIAL LIFE, TRAVEL, WORK AND HOMEMAKING FUNCTION WITH AT LEAST 5 POINT IMPROVEMENT IN LUMBAR OSWESTRY QUESTIONNAIRE SCORE IMPROVEMENT. Goal Progress: Goal Met Goal 3:: INSTRUCT IN PROPHYLAXIS. Goal Progress: Goal Met Plan Plan: D/C TO INDEP HEP. D/C Information d/c sentence: If there are questions or concerns regarding this patient's physical therapy, please feel free to call me at [phone]. Thank you for the referral of this patient. Sincerely, Alisa Grimes, PT, Cert MDT Balance/Gait/Functional tests Balance/Special Test Scores Oswestry Low Back Score: 6 Improvement % Improvement: 80 01/13/25 1005 CC: Dr. Dallas Rojas MD; Dr. Krystina Calle DO BIBI Signed Normal [facility] CRPon 01-01-2025 C-REACTIVE PROT 13.90 mg/L High 0.0-3.0 [facility] Comment on above: Performed By: #### L 101.9900, L500.4050, L501.6710 ####[facility] [address] [place], [address] Comprehensive Metabolic Prof ilon 01-01-2025 Albumin [Mass/Vol] 4.2 g/dL Normal 3.5-5.0 [facility] Comment on above: Performed By: #### L 101.9900, L500.4050, L501.6710 ####[facility] [address] [place], [address] Albumin/Globulin [Mass ratio] 1.6 {ratio} Normal 0.9-2.4 [facility] Comment on above: Performed By: #### L 101.9900, L500.4050, L501.6710 ####[facility] [address] [place], [address] ALK PHOS 93 U/L Normal 35-104 [facility] Comment on above: Performed By: #### L 101.9900, L500.4050, L501.6710 ####[facility] [address] [place], [address] ALT [Catalytic activity/Vol] 62 U/L High <=34 [facility] Comment on above: Performed By: #### L 101.9900, L500.4050, L501.6710 ####[facility] [address] [place], [address] AST [Catalytic activity/Vol] 36 U/L High <=31 [facility] Comment on above: Performed By: #### L 101.9900, L500.4050, L501.6710 ####[facility] [address] [place], [address] Bilirubin [Mass/Vol] 0.26 mg/dL Normal 0.00-1.[address] [facility] Comment on above: Performed By: #### L 101.9900, L500.4050, L501.6710 ####[facility] [address] [place], [address] BUN/CRE 21.5 RATIO High 10-20 [facility] Comment on above: Performed By: #### L 101.9900, L500.4050, L501.6710 ####[facility] [address] [place], [address] Calcium [Mass/Vol] 9.3 mg/dL Normal 7.6-11.0 [facility] Comment on above: Performed By: #### L 101.9900, L500.4050, L501.6710 ####[facility] [address] [place], [address] Chloride [Moles/Vol] 104 mmol/L Normal 98-[address] [facility] Comment on above: Performed By: #### L 101.9900, L500.4050, L501.6710 ####[facility] [address] [place], [address] CO2 [Moles/Vol] 26.4 mmol/L Normal 21.0-32.0 [facility] Comment on above: Performed By: #### L 101.9900, L500.4050, L501.6710 ####[facility] [address] [place], [address] Creatinine [Mass/Vol] 0.66 mg/dL Low 0.70-1.[address] [facility] Comment on above: Performed By: #### L 101.9900, L500.4050, L501.6710 ####[facility] [address] [place], [address] GAP 11 Normal 5-15 [facility] Comment on above: Performed By: #### L 101.9900, L500.4050, L501.6710 ####[facility] [address] [place], [address] GFR/1.73 sq M.predicted among non-blacks MDRD (S/P/Bld) [Vol rate/Area] 109 mL/min/{1.73_m2} Normal >60 [facility] Comment on above: Result Comment: mL/m in/1.73m2 CKD-EPI Creatinine Equation (2020) Performed By: #### L 101.9900, L500.4050, L501.6710 ####[facility] [address] [place], [address] Globulin (S) [Mass/Vol] 2.6 g/dL Normal 2.2-4.2 [facility] Comment on above: Performed By: #### L 101.9900, L500.4050, L501.6710 ####[facility] [address] [place], [address] Glucose [Mass/Vol] 151 mg/dL High 70-99 [facility] Comment on above: Performed By: #### L 101.9900, L500.4050, L501.6710 ####[facility] [address] [place], [address] Potassium [Moles/Vol] 4.1 mmol/L Normal 3.3-5.[address] [facility] Comment on above: Result Comment: Hemo lysis present, Results??could be affected. ?? Performed By: #### L 101.9900, L500.4050, L501.6710 ####[facility] [address] [place], [address] Sodium [Moles/Vol] 142 mmol/L Normal 133-145 [facility] Comment on above: Performed By: #### L 101.9900, L500.4050, L501.6710 ####[facility] [address] [place], [address] T PROT 6.8 g/dL Normal 5.9-8.4 [facility] Comment on above: Performed By: #### L 101.9900, L500.4050, L501.6710 ####[facility] [address] [place], [address] Urea nitrogen [Mass/Vol] 14 mg/dL Normal 4-19 [facility] Comment on above: Performed By: #### L 101.9900, L500.4050, L501.6710 ####[facility] [address] [place], [address] Erythrocyte Sed Rateon 01-01 SED RATE 1 mm/hr Normal 0-30 [facility] Comment on above: Performed By: #### L 101.9900, L500.4050, L501.6710 ####[facility] [address] [place], [address] Pelvic (Non )on 12-23 Pelvic (Non ) [facility] Imaging Services [address] [place] [address] Pelvic (Non ) MR#: [id number] Acct: [id number] Name: LIBIA OLIVAS FRIDA Rep #: [id number] : 1975 F 49 From: Jana Emerson PCP: Dr. Krystina Calle, Status: REG CLI Study: Pelvic (Non ) Date of Exam: 01/01/25 Exam# [id number] Ordering Dr: Monie Mckeon PROCEDURE: PELVIC (NON ) 01/01/2025 REASON FOR EXAM: LEFT OVARIAN CYST TECHNIQUE: Procedure Code: USPEL Modality: US Procedure: PELVIC (NON ) COMPARISON: CT abdomen and pelvic study dated 12/04/2024 FINDINGS: Measurements: Uterus: The uterus is absent compatible with patient's history of hysterectomy. Right Ovary: 2.9 x 2.5 x 1.6 cm with a volume of 5.9 mL. Left Ovary: 5.4 3.4 x 2.6 cm x with a volume of 25 mL. Uterus: Patient had a hysterectomy. Right ovary: Size contour and echogenicity are within normal limits. There is blood flow to the ovary. Left ovary: There is a benign-appearing cyst measuring 2.8 x 2.8 x 2.3 cm. There is a dominant follicle measuring 14 mm. Other: Urinary bladder measures 7.9 x 5.0 x 3.1 cm. Bladder wall is smooth. Urinary bladder volume is 64 mL. There are no masses seen within the urinary bladder. There is no free fluid in the cul-de-sac. US/Pelvic (Non ) IMPRESSION: Evidence of previous hysterectomy. Benign-appearing left ovarian cyst. Normal appearance of the right ovary. Reading Location: [id number] CC: Dr. Krystina Calle DO; Dr. Monie Mckeon MD Software Program Manager: Signed Normal [facility] Abdomen/Pelvis without Conto n 12-04-2024 Abdomen/Pelvis without Cont [facility] Imaging Services [address] [place] [address] Abdomen/Pelvis without Cont MR#: [id number] Acct: [id number] Name: LIBIA OLIVAS FRIDA Rep #: [id number] : 1975 F 49 From: Darion Livingston MD PCP: Dr. Krystina Calle DO Status: REG CLI Study: Abdomen/Pelvis without Cont Date of Exam: 11/23 05/19 Exam# [id number] Ordering Dr: Fabiano Liz DO PROCEDURE: ABDOMEN/PELVIS WITHOUT CONT 12/04/2024 REASON FOR EXAM: CML TECHNIQUE: Procedure Code: CTABDPEL Modality: CT Procedure: ABDOMEN/PELVIS WITHOUT CONT Noncontrast technique limits evaluation of the abdominal and pelvic viscera. Coronal and Sagittal reconstruction series were provided. One or more dose reduction techniques were used (e.g., Automated exposure control, adjustment of the mA and/or kV according to patient size, use of iterative reconstruction technique). RADIATION DOSE SUMMARY: CTDlvol: 23 mGy DLP: 1244 mGycm COMPARISON: July 27, 2021, January 13, 2019 FINDINGS: Lung bases: Clear Liver: Enlarged, diffusely fatty infiltrated liver. Gallbladder: Cholecystectomy. No biliary ductal dilation. Spleen: Normal. Pancreas: Normal. Adrenals: Right adrenal nodule is 15 x 10 mm. A prior exam is noncontrast showing of the nodule is 10 Hounsfield units consistent with an adenoma. Left adrenal is normal. Kidneys: 2 mm calculus right lower pole is nonobstructing. Bladder: Nearly empty Reproductive Organs: Hysterectomy. Left ovarian cyst is 2.3 x 2.7 x 2.8 cm. No right adnexal mass. Bowel: Small sliding hiatus hernia. Small bowel is normal. Colon appears normal. Appendix: Normal Lymph nodes: None appear enlarged. Vasculature: Normal Peritoneum / Retroperitoneum: No free air, free fluid or mass. Bones: Facet hypertrophy L3/4, L4/5 and L5/S1. CT/Abdomen/Pelvis without Cont IMPRESSION: 1. Hysterectomy. Left ovarian cyst measures up to 2.8 cm. ACR White Paper recommendations (Guadarrama, et al. J Am Vishnu Radiol 2020;17:248-254) suggest the following: No further imaging. 2. Right adrenal nodule represents a benign adenoma. No follow-up required. 3. Diffuse fatty liver. Reading Location: [id number] CC: Dr. Krystina Calle DO; Dr. Fabiano Liz DO Software Program Manager: Signed Normal [facility] 12 Lead EKGon 11-28-2024 12 Lead EKG [facility] Cardiovascular Services [address] [place] [address] 12 Lead EKG 11/28/24 1234 MR#: [id number] Acct: [id number] Name: LIBIA OLIVAS FRIDA Rep #: [id number] : 1975 49 From: Escobar Grissom MD Attending Dr: Status: DEP ER Ordering Dr: Terry Pond DO Date: 11/28/24 Location: ED Sex: F C Admitted: Test Reason : HTN Blood Pressure : */* mmHG Vent. Rate : 67 BPM Atrial Rate : 67 BPM P-R Int : 176 ms QRS Dur : 106 ms QT Int : 460 ms P-R-T Axes : 19 60 25 degrees QTcB Int : 486 ms Normal sinus rhythm QTcB >= 480 msec Abnormal ECG Confirmed by Escobar Grissom ([id number]), food expeditor KATHERYN RUELAS ([id number]) on 12/01/2024 5:46:43 AM Referred By: Confirmed By: Escobar Grissom 12/01/24 0546 Date Escobar Grissom MD CC: Dr. Krystina Calle DO; Dr. Terry Pond DO Signed Normal [facility] Absolute lymphocyte countOrd ered By: Terry Pond on 11-28-2024 Lymphocytes Auto (Unsp spec) [#/Vol] 2.19 10*3/uL 0.83-4.51 [facility] Absolute neutrophil countOrd ered By: Terry Pond on 11-28-2024 Neutrophils (Bld) [#/Vol] 7.3 10*3/uL 2.0-7.7 [facility] Activated partial thrombopla stin time (aPTT) in platelet poor plasma by coagulation aOrdered By: Terry Pond on 11-28-2024 aPTT Coag (PPP) [Time] 24.9 s 24.1-36.2 [facility] Anion gap in Serum or Plasma Ordered By: Terry Pond on 11-28-2024 Anion gap [Moles/Vol] 13 mmol/L 5-[address] [facility] Automated lymphocyte count a s percentage of total leukocytesOrdered By: Terry Pond on 11-28-2024 Lymphocytes/100 WBC Auto (Unsp spec) 21.1 % 19-41 [facility] BUN/creatinine ratioOrdered By: Terry Pond on 11-28-2024 Urea nitrogen/Creatinine [Mass ratio] 22.6 mg/mg High 10- [facility] Basic Metabolic Profile (BMP )on 11-28-2024 BUN/CRE 22.6 RATIO High 10- [facility] Comment on above: Performed By: #### L 100.0100, L500.2500, L501.4021, L503.7505 ####[facility] [address] [place], [address] Calcium [Mass/Vol] 9.1 mg/dL Normal 7.6-11.0 [facility] Comment on above: Performed By: #### L 100.0100, L500.2500, L501.4021, L503.7505 ####[facility] [address] [place], [address] Chloride [Moles/Vol] 103 mmol/L Normal 98-[address] [facility] Comment on above: Performed By: #### L 100.0100, L500.2500, L501.4021, L503.7505 ####[facility] [address] [place], [address] CO2 [Moles/Vol] 22.4 mmol/L Normal 21.0-32.0 [facility] Comment on above: Performed By: #### L 100.0100, L500.2500, L501.4021, L503.7505 ####[facility] [address] [place], [address] Creatinine [Mass/Vol] 0.55 mg/dL Low 0.70-1.[address] [facility] Comment on above: Performed By: #### L 100.0100, L500.2500, L501.4021, L503.7505 ####[facility] [address] [place], [address] GAP 13 Normal 5-15 [facility] Comment on above: Performed By: #### L 100.0100, L500.2500, L501.4021, L503.7505 ####[facility] [address] [place], [address] GFR/1.73 sq M.predicted among non-blacks MDRD (S/P/Bld) [Vol rate/Area] 114 mL/min/{1.73_m2} Normal >60 [facility] Comment on above: Result Comment: mL/m in/1.73m2 CKD-EPI Creatinine Equation (2020) Performed By: #### L 100.0100, L500.2500, L501.4021, L503.7505 ####[facility] [address] [place], [address] Glucose [Mass/Vol] 121 mg/dL High 70-99 [facility] Comment on above: Performed By: #### L 100.0100, L500.2500, L501.4021, L503.7505 ####[facility] [address] [place], [address] Potassium [Moles/Vol] 3.7 mmol/L Normal 3.3-5.[address] [facility] Comment on above: Performed By: #### L 100.0100, L500.2500, L501.4021, L503.7505 ####[facility] [address] [place], [address] Sodium [Moles/Vol] 139 mmol/L Normal 133-145 [facility] Comment on above: Performed By: #### L 100.0100, L500.2500, L501.4021, L503.7505 ####[facility] [address] [place], [address] Urea nitrogen [Mass/Vol] 13 mg/dL Normal 4-19 [facility] Comment on above: Performed By: #### L 100.0100, L500.2500, L501.4021, L503.7505 ####[facility] [address] [place], [address] Basophil percentageOrdered B y: Terry Pond on 11-28-2024 Basophils/100 WBC (Bld) 0.8 % 0-1 [facility] Brain/Head without Contrasto n 11-28-2024 Brain/Head without Contrast [facility] Imaging Services [address] [place] [address] Brain/Head without Contrast MR#: [id number] Acct: [id number] Name: LIBIA OLIVAS FRIDA Rep #: [id number] : 1975 F 49 From: Jeny asif MD PCP: Dr. Krystina Calle, DO Status: REG ER Study: Brain/Head without Contrast Date of Exam: 09/16 Exam# [id number] Ordering Dr: Terry Pond DO PROCEDURE: BRAIN/HEAD WITHOUT CONTRAST 11/28/2024 REASON FOR EXAM: HEADACHE TECHNIQUE: Procedure Code: CTBR Modality: CT Procedure: BRAIN/HEAD WITHOUT CONTRAST Coronal and Sagittal reconstruction series were provided. One or more dose reduction techniques were used (e.g., Automated exposure control, adjustment of the mA and/or kV according to patient size, use of iterative reconstruction technique. RADIATION DOSE SUMMARY: CTDlvol: 44.99 mGy DLP: 2643.10 mGycm COMPARISON: None FINDINGS: Brain: There is no acute intracranial hemorrhage. No region of vasogenic edema, mass effect, or midline shift. CSF Spaces: The ventricles are midline, without hydrocephalus. There is no significant extra-axial fluid collection. Bones: There is no skull fracture. Hyperostosis frontalis. CT/Brain/Head without Contrast IMPRESSION: There is no acute intracranial process Reading [facility] CC: Dr. Krystina Calle DO; Dr. Terry Pond DO Software Program Manager: Signed Normal [facility] CBC W/Diff, Automatedon 09-0 Absolute Lymph 2.19 X10 3/uL Normal 0.83-4.51 [facility] Comment on above: Performed By: #### L 100.0100, L500.2500, L501.4021, L503.7505 ####[facility] [address] [place], [address] Absolute Neut 7.3 X10 3/uL Normal 2.0-7.7 [facility] Comment on above: Performed By: #### L 100.0100, L500.2500, L501.4021, L503.7505 ####[facility] [address] [place], [address] Basophils/100 WBC (Bld) 0.8 % Normal 0-1 [facility] Comment on above: Performed By: #### L 100.0100, L500.2500, L501.4021, L503.7505 ####[facility] [address] [place], [address] Eosinophils/100 WBC (Bld) 1.8 % Normal 0-5 [facility] Comment on above: Performed By: #### L 100.0100, L500.2500, L501.4021, L503.7505 ####[facility] [address] [place], [address] Erythrocyte distribution width (RBC) [Ratio] 13.3 % Normal 11.6-14.6 [facility] Comment on above: Performed By: #### L 100.0100, L500.2500, L501.4021, L503.7505 ####[facility] [address] [place], [address] Hematocrit (Bld) [Volume fraction] 39.2 % Normal 37-47 [facility] Comment on above: Performed By: #### L 100.0100, L500.2500, L501.4021, L503.7505 ####[facility] [address] [place], [address] Hemoglobin (Bld) [Mass/Vol] 13.4 g/dL Normal 12.0-15.0 [facility] Comment on above: Performed By: #### L 100.0100, L500.2500, L501.4021, L503.7505 ####[facility] [address] [place], [address] IG% 0.800 Normal 0.0-0.9 [facility] Comment on above: Result Comment: IG% - Immature Granulocytes (promyelocytes, myelocytes and metamyelocytes) > 1% indicates that a LEFT SHIFT is Present. Performed By: #### L 100.0100, L500.2500, L501.4021, L503.7505 ####[facility] [address] [place], [address] Lymphocytes/100 WBC (Bld) 21.1 % Normal 19-41 [facility] Comment on above: Performed By: #### L 100.0100, L500.2500, L501.4021, L503.7505 ####[facility] [address] [place], [address] MCH (RBC) [Entitic mass] 27.2 pg Normal 27.0-32.0 [facility] Comment on above: Performed By: #### L 100.0100, L500.2500, L501.4021, L503.7505 ####[facility] [address] [place], [address] MCHC (RBC) [Mass/Vol] 34.2 g/dL Normal 32-[address] [facility] Comment on above: Performed By: #### L 100.0100, L500.2500, L501.4021, L503.7505 ####[facility] [address] [place], [address] MCV (RBC) [Entitic vol] 79.7 fL Low 81-99 [facility] Comment on above: Performed By: #### L 100.0100, L500.2500, L501.4021, L503.7505 ####[facility] [address] [place], [address] Monocytes/100 WBC (Bld) 5.6 % Normal 0-10 [facility] Comment on above: Performed By: #### L 100.0100, L500.2500, L501.4021, L503.7505 ####[facility] [address] [place], [address] Neutrophils/100 WBC (Bld) 69.9 % Normal 47-70 [facility] Comment on above: Performed By: #### L 100.0100, L500.2500, L501.4021, L503.7505 ####[facility] [address] [place], [address] Nucleated RBC (Bld) [#/Vol] 0 10*3/uL Normal 0-5 [facility] Comment on above: Performed By: #### L 100.0100, L500.2500, L501.4021, L503.7505 ####[facility] [address] [place], [address] Platelet mean volume (Bld) [Entitic vol] 10.0 fL Normal 6.2-12.0 [facility] Comment on above: Performed By: #### L 100.0100, L500.2500, L501.4021, L503.7505 ####[facility] [address] [place], [address] Platelets (Bld) [#/Vol] 253 10*3/uL Normal 150-450 [facility] Comment on above: Performed By: #### L 100.0100, L500.2500, L501.4021, L503.7505 ####[facility] [address] [place], [address] RBC (Bld) [#/Vol] 4.92 10*6/uL Normal 4.2-5.4 [facility] Comment on above: Performed By: #### L 100.0100, L500.2500, L501.4021, L503.7505 ####[facility] [address] [place], [address] RDW SD 38.1 fl Normal 35.1-43.9 [facility] Comment on above: Performed By: #### L 100.0100, L500.2500, L501.4021, L503.7505 ####[facility] [address] [place], [address] WBC (Bld) [#/Vol] 10.4 10*3/uL Normal 4.4-11.0 [facility] Comment on above: Performed By: #### L 100.0100, L500.2500, L501.4021, L503.7505 ####[facility] [address] [place], [address] CTA Chest W/WO Contraston CTA Chest W/WO Contrast [facility] Imaging Services [address] [place] [address] CTA Chest W/WO Contrast MR#: [id number] Acct: [id number] Name: LIBIA OLIVAS FRIDA Rep #: [id number] : 1975 F 49 From: Smason Valentine MD PCP: Dr. Krystina Calle, DO Status: REG ER Study: CTA Chest W/WO Contrast Date of Exam: 11/28/24 Exam# [id number] Ordering Dr: Terry Pond DO PROCEDURE: CTA CHEST W/WO CONTRAST 11/28/2024 REASON FOR EXAM: SOB, HX OF CANCER TECHNIQUE: Procedure Code: CTCTACHWW Modality: CT Procedure: CTA CHEST W/WO CONTRAST Multiplanar Sagittal and Coronal images were obtained. CONTRAST: Please see CT data VOLUME: Please see CT data mL One or more dose reduction techniques were used (e.g., Automated exposure control, adjustment of the mA and/or kV according to patient size, use of iterative reconstruction technique). RADIATION DOSE SUMMARY: CTDlvol: Please see CT mGy DLP: 2643.10 mGycm COMPARISON: None FINDINGS: Pulmonary arteries: Diameter of the main pulmonary trunk at 2.9 cm is within normal range. Enhancement within the pulmonary arteries is preserved bilaterally through the proximal subsegmental levels, without evidence for acute appearing intraluminal occlusive pulmonary embolus. Evaluation of some smaller distal branches beyond the proximal subsegmental levels is nondiagnostic due to heterogeneous diminishing peripheral contrast bolus. Heart: Cardiothoracic ratio is mildly enlarged with slight prominence of left-sided chambers. Ventricular ratio is maintained. No cardiac chamber filling defect is seen to suggest cardiac thrombus. No significant pericardial effusion. Evaluation of coronary arteries is limited by motion. No dense appearing coronary calcification seen. Myocardial ischemia can not be assessed by this study. Aorta: The aortic root is not dilated. No thoracic aortic aneurysm or dissection. Maximal thoracic aortic diameter is 3.8 cm at the proximal ascending portion. No hemodynamically significant thoracic aortic stenosis. Three-vessel branch pattern noted off the aortic arch. Visualized proximal great vessels within the superior mediastinum are preserved. Mediastinum: No mediastinal hematoma. Small amount of fluid seen within the pericardial recesses. No mediastinal soft tissue emphysema. Lymph nodes: Prevascular lymph nodes are borderline up to 9.5 mm in short axis. Left hilar lymph nodes are prominent at up to 8 mm in short axis. Mildly enlarged right hilar lymph node at 12.6 mm in short axis of indeterminate significance. Given the patient's history of cancer, if indicated consider nonemergent whole-body PET for staging. Esophagus: No periesophageal inflammation. No hiatal hernia. Thyroid: The visualized thyroid gland is unremarkable. Lungs: The lungs are symmetrically expanded. Mild bibasal and dependent subpleural reticular and ground-glass opacities noted consistent with mild atelectasis. There is no consolidation or air bronchograms. Mild pulmonary edema can not be excluded. Clinical correlation with symptoms. Consider radiographic follow-up as clinically appropriate. No bronchiectasis or peribronchial thickening. No suspicious pulmonary parenchymal mass. Pleura: No pleural effusion. There is no pneumothorax. Upper abdomen: No free air or free fluid within the visualized upper most abdomen. There is hepatic steatosis. Body wall: No body wall hematoma or soft tissue emphysema. Osseous: Mild degenerative changes of the spine and bony thorax. No acute osseous injury is seen. CT/CTA Chest W/WO Contrast IMPRESSION: No evidence for acute pulmonary embolus through the proximal subsegmental levels as discussed above. - Mild cardiac enlargement. - No thoracic aortic aneurysm or dissection. - Prominent mediastinal lymph nodes and mildly enlarged right hilar lymph node of indeterminate cause. Nonemergent recommendations discussed above. - Other findings discussed above in detail. Reading Location: [id number] CC: Dr. Krystina Calle DO; Dr. Terry Pond DO Software Program Manager: Signed Normal [facility] CTA Head AND Neck W/ Contras ton 11-28-2024 CTA Head AND Neck W/ Contrast [facility] Imaging Services [address] [place] [address] CTA Head AND Neck W/ Contrast MR#: [id number] Acct: [id number] Name: LIBIA OLIVAS FRIDA Rep #: [id number] : 1975 F 49 From: Jeny asif MD PCP: Dr. Krystina Calle DO Status: REG ER Study: CTA Head AND Neck W/ Contrast Date of Exam: Exam# [id number] Ordering Dr: Terry Pond DO PROCEDURE: CTA HEAD AND NECK W/ CONTRAST 11/28/2024 REASON FOR EXAM: HEADACHE, DIZZINESS TECHNIQUE: Procedure Code: CTCTA.HDNCK Modality: CT Procedure: CTA HEAD AND NECK W/ CONTRAST Multiplanar Sagittal and Coronal images were obtained. CONTRAST: Currently not available. Refer to technologist paperwork One or more dose reduction techniques were used (e.g., Automated exposure control, adjustment of the mA and/or kV according to patient size, use of iterative reconstruction technique). RADIATION DOSE SUMMARY: CTDlvol: 44.99 mGy DLP: 2643.10 mGycm COMPARISON: None FINDINGS: Aortic Arch: Normal three-vessel arch Brachiocephalic and Subclavians: Mildly tortuous right subclavian artery. Otherwise normal. RIGHT Carotid: Right CCA: Unremarkable Right ICA: Unremarkable Maximum stenosis (NASCET): No significant stenosis % Right ECA: Unremarkable LEFT Carotid: Left CCA: Unremarkable Left ICA: Unremarkable Maximum stenosis (NASCET): No significant stenosis % Left ECA: Unremarkable Vertebrals: Codominant. Arise from the subclavians. Both vertebrals form the basilar. RIGHT Vertebral: Unremarkable LEFT Vertebral: Unremarkable Anatomy: Native of [place] anatomy is normal. Aneurysm or avm: No intracranial aneurysms or large vascular malformations are identified. Anterior cerebral arteries: Unremarkable: Middle cerebral arteries: Unremarkable. Basilar artery: Unremarkable. Posterior cerebral arteries: Unremarkable. Other major branches of the posterior circulation: Unremarkable. Major venous structures: Unremarkable. Low-grade Other findings: Neck: Chronic appearing irregular mucoperiosteal thickening at the alveolar recess right maxillary sinus, with mixed sclerotic and erosive changes. No extraosseous enhancing soft tissue component. No cervical lymphadenopathy. Adjacent dental hardware. CT/CTA Head AND Neck W/ Contrast IMPRESSION: 1. No significant carotid stenosis according to NASCET criteria. 2. Unremarkable CTA head and neck. 3. Chronic appearing sclerotic and erosive changes at the alveolar recess right maxillary sinus. This may reflect longstanding changes related to dental hardware. However, chronic/smoldering osteomyelitis would be difficult to completely exclude. Reading Location: [facility] CC: Dr. Krystina Calle DO; Dr. Terry Pond DO Software Program Manager: Signed Normal [facility] Carbon dioxide, total [Moles /volume] in Central venous bloodOrdered By: Terry Pond on 11-28-2024 CO2 [Moles/Vol] 22.4 mmol/L 21.0-32.0 [facility] Chloride assayOrdered By: Darryl Pond on 11-28-2024 Chloride [Moles/Vol] 103 mmol/L 98-[address] [facility] Emergency Department Summary on 11-28-2024 Emergency Department Summary [facility] Medical Records Department [address] [place] [address] Emergency Department Summary 11/28/24 MR#: [id number] Acct: [id number] Name: LIBIA OLIVAS FRIDA Rep #: [id number] : 1975 49 From: Terry Pond DO PCP: Dr. Krystina Calle DO Status:REG ER Location: ED ADDENDUM by Dr. Ricardo Menendez DO on 11/28/24 at 1700 Patient was signed out to me by Dr. Pond. At the time of sign out, patient's second troponin was pending. Repeat troponin unremarkable. Delta 0. Patient was ambulated in the emergency department without difficulty. Her blood pressure has remained with SBP in the 160s. Original SBP in the 200s. Dr. Pond wrote a prescription for antihypertensive. Will write for clonidine as needed. Monitor blood pressure at home. Follow-up with PCP. Return precautions explained. She confirmed understand the plan. Patient stable to discharge home. 11/28/24 1700 Cosigner Signature (if applicable): cc: Dr. Krystina Calle DO * Signed HPI History of Present Illness Chief Complaint: Hypertension Narrative Narrative: Patient is a 49-year-old female with past medical history of LANIE, cancer, CML, chronic back pain, Dory's thyroiditis, anemia, GERD who presents to the emergency department the chief complaint of headache, blurred vision, high blood pressure. She also notes that she is having shortness of breath with exertion. 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 States that the longer distance she walks more short of breath she is. Patient notes that she had injections in her back for instability and pain recently and despite this her blood pressure has been elevated. Patient states that her symptoms started yesterday while at work. Patient denies any blood thinner medications. [facility] Medical History Wears glasses Wears contact lenses [...] tablet 300 mg PO DAILY 02/19/23 Unknown H istory furosemide 20 mg tablet 20 mg PO Q OTHER DAY PRN edema Unknown History ondansetron HCl 8 mg tablet 8 mg PO Q8H PRN nausea and vomitin g 09/16/23 Unknown History potassium chloride 10 mEq 20 meq PO BID 02/24/24 Unknown His tory tablet,extended release (Klor-Con) amlodipine 5 mg tablet 5 mg PO DAILY #30 tabs 11/28/24 Un known Rx Allergy/AdvReac Type Severity Reaction Status Date / Time Iodinated Contrast Media Allergy Hives Verified 11/28/24 14:02 nalbuphine HCl (From [place]) AdvReac Vomiting Verified 11/28/24 12:16 Family History Father CAD (coronary artery disease) [...] home: Yes additional 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: - [facility]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 ROS ED ROS Narrative Constitutional: Complains of headache, denies fevers, chills Eyes: Complains of blurry vision denies double vision Cardiovascular: Denies chest pain or palpitations Respiratory: Complains of shortness of breath Abdomen: Denies abdominal pain nausea vomit diarrhea : Denies urinary symptoms Neurological: Denies any numbness, weakness, tingling Musculoskeletal: Complains of chronic back pain this is not new Skin: Denies any rashes or lesions EXAM Physical Exam Narrative Exam Narrative: General: Patient was lying in bed rest comfortably did not appear to be acute distress Head: Atraumatic, normocephalic Eyes: PE (more content not included)... Normal [facility] Eosinophil percentageOrdered By: Terry Pond on 11-28-2024 Eosinophils/100 WBC (Bld) 1.8 % 0-5 [facility] Erythrocyte distribution wid th ratioOrdered By: Terry Pond on 11-28-2024 Erythrocyte distribution width (RBC) [Ratio] 13.3 % 11.6-14.6 [facility] Erythrocyte distribution wid th standard deviationOrdered By: Terry Pond on 11-28-2024 Erythrocyte distribution width (RBC) [Ratio] 38.1 fl 35.1-43.9 [facility] Glomerular filtration rate ( GFR) estimation/1.73 sq m using serum, plasma, or whole bOrdered By: Terry Pond on 11-28-2024 GFR/1.73 sq M.predicted among non-blacks MDRD (S/P/Bld) [Vol rate/Area] 114 mL/min/{1.73_m2} >60 [facility] Comment on above: mL/min/1.73m2 CKD-EP I Creatinine Equation (2020) Hematocrit Auto (Bld) [Volum e fraction]Ordered By: Terry Pond on 11-28-2024 Hematocrit (Bld) [Volume fraction] 39.2 % 37-47 [facility] Hemoglobin measurementOrdere d By: Terry Pond on 11-28-2024 Hemoglobin (Bld) [Mass/Vol] 13.4 g/dL 12.0-15.0 [facility] Immature granulocytes/100 WB C Auto (Bld)Ordered By: Terry Pond on 11-28-2024 Immature granulocytes/100 WBC (Bld) 0.800 % 0.0-0.9 [facility] Comment on above: IG% - Immature Granu locytes (promyelocytes, myelocytes and metamyelocytes) > 1% indicates that a LEFT SHIFT is Present. International normalized rat io (INR) calculationOrdered By: Terry Pond on 11-28-2024 INR Coag (Bld) [Relative time] 1.0 {INR} [facility] L501.4021on 11-28-2024 Trop T High Sen 7 ng/L Normal <=14 [facility] Comment on above: Performed By: #### L 100.0100, L500.2500, L501.4021, L503.7505 ####[facility] [address] [place], [address] MCV (mean corpuscular volume ) determinationOrdered By: Terry Pond on 11-28-2024 MCV (RBC) [Entitic vol] 79.7 fL Low 81-99 [facility] Mean corpuscular hemoglobin (MCH) determinationOrdered By: Terry Pond on 11-28-2024 MCH (RBC) [Entitic mass] 27.2 pg 27.0-32.0 [facility] Mean corpuscular hemoglobin concentration (MCHC) determinationOrdered By: Terry Pond on 11-28-2024 MCHC (RBC) [Mass/Vol] 34.2 g/dL 32-[address] [facility] Mean platelet volume determi nationOrdered By: Terry Pond on 11-28-2024 Platelet mean volume (Bld) [Entitic vol] 10.0 fL 6.2-12.0 [facility] Monocyte percentageOrdered B y: Terry Pond on 11-28-2024 Monocytes/100 WBC (Bld) 5.6 % 0-10 [facility] Natriuretic peptide.B prohor ted N-Terminal [Mass/volume] in Serum or PlasmaOrdered By: Terry Pond on 11-28-2024 Natriuretic peptide.B prohormone N-Terminal [Mass/Vol] 186 pg/mL <450 [facility] Comment on above: Heart Failure Unlike ly: < 300 pg/mLHeart Failure Likely< 50 Years: > 450 pg/mL50-75 Years: > 900 pg/mL>75 Years: > 1800 pg/mL Neutrophil percentageOrdered By: Terry Pond on 11-28-2024 Neutrophils/100 WBC (Bld) 69.9 % 47-70 [facility] Nucleated red blood cell per centageOrdered By: Terry Pond on 11-28-2024 Nucleated RBC/100 WBC (Bld) [Ratio] 0 % 0-5 [facility] Partial Thromboplast Timeon 11-28-2024 aPTT Coag (Bld) [Time] 24.9 s Normal 24.1-36.2 [facility] Comment on above: Performed By: #### L 300.3900, L300.4310 ####[facility] [address] [place], [address] Platelet countOrdered By: Darryl Pond on 11-28-2024 Platelets (Bld) [#/Vol] 253 10*3/uL 150-450 [facility] Potassium measurement (mass/ volume)Ordered By: Terry Pond on 11-28-2024 Potassium (Unsp spec) [Mass/Vol] 3.7 mmol/L 3.3-5.1 [facility] Pro- Brain NATRIURETIC PEPTI Shaji 11-28-2024 Natriuretic peptide B (Bld) [Mass/Vol] 186 pg/mL Normal <=450 [facility] Comment on above: Result Comment: Hear t Failure Unlikely: < 300 pg/mL Heart Failure Likely < 50 Years: > 450 pg/mL 50-75 Years: > 900 pg/mL >75 Years: > 1800 pg/mL Performed By: #### L 100.0100, L500.2500, L501.4021, L503.7505 ####[facility] [address] [place], [address] Prothrombin Time w/INRon INR Coag (PPP) [Relative time] 1.0 {INR} Normal [facility] Comment on above: Performed By: #### L 300.3900, L300.4310 #### [facility] [address] [place], [address] PT Coag (PPP) [Time] 12.9 s Normal 11.7-14.[address] [facility] Comment on above: Performed By: #### L 300.3900, L300.4310 #### [facility] [address] [place], [address] Prothrombin timeOrdered By: eTrry Pond on 11-28-2024 PT Coag (PPP) [Time] 12.9 s 11.7-14.[address] [facility] RBC Auto (Bld) [#/Vol]Ordere d By: Terry Pond on 11-28-2024 RBC (Bld) [#/Vol] 4.92 10*6/uL 4.2-5.4 [facility] Serum creatinine measurement (mass/volume)Ordered By: Terry Pond on 11-28-2024 Creatinine [Mass/Vol] 0.55 mg/dL Low 0.70-1.[address] [facility] Serum glucose measurement (m ass/volume)Ordered By: Terry Pond on 11-28-2024 Glucose [Mass/Vol] 121 mg/dL High 70-99 [facility] Serum or plasma calcium emmanuelle urement (mass/volume)Ordered By: Terry Pond on 11-28-2024 Calcium [Mass/Vol] 9.1 mg/dL 7.6-11.0 [facility] Serum or plasma urea nitroge n measurement (mass/volume)Ordered By: Terry Pond on 11-28-2024 Urea nitrogen [Mass/Vol] 13 mg/dL 4-19 [facility] Sodium levelOrdered By: Sanaz Pond on 11-28-2024 Sodium [Moles/Vol] 139 mmol/L 133-145 [facility] Troponin T HS 2 HRon 025 Trop T High Sen 7 ng/L Normal <=14 [facility] Comment on above: Performed By: #### L 499.0042 ####[facility] [address] [place], [address] Troponin T HS 4 HRon 025 Trop T High Sen Normal <=14 [facility] Comment on above: Performed By: #### L 499.0043 #### [facility] [address] [place], [place], [address] (628) Troponin T.cardiac [Mass/vol ume] in Serum or Plasma by High sensitivity methodOrdered By: Terry Pond on 11-28-2024 Troponin T.cardiac High sensitivity method [Mass/Vol] 7 ng/L <14 [facility] Troponin T.cardiac High sensitivity method [Mass/Vol] 7 ng/L <14 [facility] White blood cell (WBC) count Ordered By: Terry Pond on 11-28-2024 WBC (Bld) [#/Vol] 10.4 10*3/uL 4.4-11.0 [facility] Inital Evaluation (1) - PTon 11-11-2024 Inital Evaluation (1) - PT [facility] Physical Therapy [address] [place] [address] / REHABILITATION SERVICES INITIAL EVALUATION MR#: [id number] Acct: [id number] Name: LIBIA OLIVAS Rep #: [id number] : 1975 49 From: Alisa Grimes PT, Cert. MDT Referring Dr.: Dr. Dallas Rojas MD Status: REG RCR Insurance: [facility] [employer]/[facility] SELF PAY INSURANCE Patient's Visit Information Visit [...] INSTRUCTION. 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 ROJAS'S RECENT ORTHO NOTE [...] Educate patien (more content not included)... Normal [facility] Re-Evaluation - PT (1)on Re-Evaluation - PT (1) [facility] Physical Therapy [facility] [address] [place] [address] / REEVALUATION / MEDICARE RECERTIFICATION PHYSICAL THERAPY MR#: [id number] Acct: [id number] Name: LIBIA OLIVAS Rep #: [id number] : 1975 49 From: Alisa Grimes PT, Cert. MDT Referring Dr.: Dr. Dallas Rojas MD Status:REG RCR Insurance: [employer]/[facility] SELF PAY INSURANCE Re-Evaluation Intro: Dr. Dallas [...] do not hesitate to contact me at [phone] by phone or if you have questions or concerns regarding this new plan of care! Sincerely, Alisa Grimes, PT, Cert MDT 11/11/24 5100 CC: Dr. Dallas Rojas MD; Dr. Krystina Calle DO BIBI Signed For Medicare only, by signing this I certify the plan of care. __ Physicians Signature Date Normal [facility] CNOVSPon 11-04-2024 CNOVSP Visit (SP) Office (H EMAWS) -- LIBIA OLIVAS ([id number]) 1975 F Date Time Provider Department 11/04/24 [...] since hadn't had in a year) at [facility] and incidental leukocytosis with WBC count 135.68K. Hgb and platelets normal. Recheck at [facility] 07/21/2022 revealed total white count 131.8 [...] Fabiano Liz DO Referring Provider: FABIANO LIZ [[id number]] Allergies As of Date: 11/04/2024 Noted Allergy Reaction IV DYE (IODINATED CONTRAST MEDIA) (more content not included)... Normal [facility] Nelli 11-04-2024 MARY Telephone (HEMMIRYAM) -- LIBIA [id number]) 1975 F Date Time Provider Department 11/04/24 FABIANO LIZ HEMAWS During your visit today, [...] ALISHA ROMERO on 11/04/[address] [facility] Ferritin SerPl-mCncon 2024 Ferritin [Mass/Vol] 230.0 ng/mL High 14.7-205.1 [facility] Comment on above: Order Comment: Speci men Type: BLOOD SPECIMEN Ordering Facility: [facility] Address: [address] [place] [address] Performed By: #### 5 7021-8 #### [facility] CLIA [id number] [address] [place] [address] [place] Iron and Iron binding capaci ty panelon 11-04-2024 Iron [Mass/Vol] 53 ug/dL Normal 41-[address] [facility] Comment on above: Order Comment: Speci men Type: BLOOD SPECIMEN Ordering Facility: [facility] Address: [address] [place] [address] Performed By: #### 5 7021-8 #### [facility] CLIA [id number] [address] [place] [address] [place] Iron binding capacity [Mass/Vol] 295 ug/dL Normal 232-[address] [facility] Comment on above: Order Comment: Speci men Type: BLOOD SPECIMEN Ordering Facility: [facility] Address: [address] [place] [address] Performed By: #### 5 7021-8 #### [facility] CLIA [id number] [address] [place] [address] [place] Iron/TIBC [Molar ratio] 18.0 % Normal 15.0-57.[address] [facility] Comment on above: Order Comment: Speci men Type: BLOOD SPECIMEN Ordering Facility: [facility] Address: [address] [place] [address] Performed By: #### 5 7021-8 #### [facility] CLIA [id number] [address] [place] [address] [place] Absolute lymphocyte countOrd ered By: HEALTH ASSESSMENT on 10-29-2024 Lymphocytes Auto (Unsp spec) [#/Vol] 1.76 10*3/uL 0.83-4.51 [facility] Absolute neutrophil countOrd ered By: HEALTH ASSESSMENT on 10-29-2024 Neutrophils (Bld) [#/Vol] 4.4 10*3/uL 2.0-7.7 [facility] Absolute nucleated red blood cell countOrdered By: HEALTH ASSESSMENT on 10-29-2024 Nucleated RBC (Bld) [#/Vol] 0.00 10*3/uL 0-5 [facility] Anion gap in Serum or Plasma Ordered By: HEALTH ASSESSMENT on 10-29-2024 Anion gap [Moles/Vol] 11 mmol/L 5-[address] [facility] BUN/creatinine ratioOrdered By: HEALTH ASSESSMENT on 10-29-2024 Urea nitrogen/Creatinine [Mass ratio] 23.2 mg/mg High 10-20 [facility] Bilirubin Test strip Ql (U)O rdered By: HEALTH ASSESSMENT on 10-29-2024 Bilirubin Ql (U) Negative Negative [facility] Bilirubin directOrdered By: HEALTH ASSESSMENT on 10-29-2024 Bilirubin.direct [Mass/Vol] 0.13 mg/dL 0.00-0.30 [facility] Bilirubin, totalOrdered By: HEALTH ASSESSMENT on 10-29-2024 Bilirubin [Mass/Vol] 0.37 mg/dL 0.00-1.[address] [facility] Blood band neutrophil count as percentage of total leukocytesOrdered By: HEALTH ASSESSMENT on 10-29-2024 Band form neutrophils/100 WBC (Bld) 63.5 % 47-70 [facility] CBC, Employeeon 10-29-2024 Absolute Lymph 1.76 X10 3/uL Normal 0.83-4.51 [facility] Comment on above: Performed By: #### L 400.0100, L100.0200, L500.2900 #### [facility] [address] [place], [address] Absolute Neut 4.4 X10 3/uL Normal 2.0-7.7 [facility] Comment on above: Performed By: #### L 400.0100, L100.0200, L500.2900 #### [facility] [address] [place], [address] Basophils/100 WBC (Bld) 1.0 % Normal 0-1 [facility] Comment on above: Performed By: #### L 400.0100, L100.0200, L500.2900 #### [facility] [address] [place], [address] Eosinophils/100 WBC (Bld) 2.5 % Normal 0-5 [facility] Comment on above: Performed By: #### L 400.0100, L100.0200, L500.2900 #### [facility] [address] [place], [address] Erythrocyte distribution width (RBC) [Ratio] 12.9 % Normal 11.6-14.6 [facility] Comment on above: Performed By: #### L 400.0100, L100.0200, L500.2900 #### [facility] [address] [place], [address] Hematocrit (Bld) [Volume fraction] 40.0 % Normal 37-47 [facility] Comment on above: Performed By: #### L 400.0100, L100.0200, L500.2900 #### [facility] [address] [place], [address] Hemoglobin (Bld) [Mass/Vol] 13.4 g/dL Normal 12.0-15.0 [facility] Comment on above: Performed By: #### L 400.0100, L100.0200, L500.2900 #### [facility] [address] [place], [address] Lymphocytes/100 WBC (Bld) 25.6 % Normal 19-41 [facility] Comment on above: Performed By: #### L 400.0100, L100.0200, L500.2900 #### [facility] [address] [place], [address] MCH (RBC) [Entitic mass] 27.1 pg Normal 27.0-32.0 [facility] Comment on above: Performed By: #### L 400.0100, L100.0200, L500.2900 #### [facility] [address] [place], [address] MCHC (RBC) [Mass/Vol] 33.5 g/dL Normal 32-[address] [facility] Comment on above: Performed By: #### L 400.0100, L100.0200, L500.2900 #### [facility] [address] [place], [address] MCV (RBC) [Entitic vol] 80.8 fL Low 81-99 [facility] Comment on above: Performed By: #### L 400.0100, L100.0200, L500.2900 #### [facility] [address] [place], [address] Monocytes/100 WBC (Bld) 7.0 % Normal 0-10 [facility] Comment on above: Performed By: #### L 400.0100, L100.0200, L500.2900 #### [facility] [address] [place], [address] Neutrophils/100 WBC (Bld) 63.5 % Normal 47-70 [facility] Comment on above: Performed By: #### L 400.0100, L100.0200, L500.2900 #### [facility] [address] [place], [address] NRBC # 0.00 10 3/uL Normal 0-5 [facility] Comment on above: Performed By: #### L 400.0100, L100.0200, L500.2900 #### [facility] [address] [place], [address] Nucleated RBC (Bld) [#/Vol] 0 10*3/uL Normal 0-5 [facility] Comment on above: Performed By: #### L 400.0100, L100.0200, L500.2900 #### [facility] [address] [place], [address] Platelet mean volume (Bld) [Entitic vol] 10.2 fL Normal 6.2-12.0 [facility] Comment on above: Performed By: #### L 400.0100, L100.0200, L500.2900 #### [facility] [address] [place], [address] Platelets (Bld) [#/Vol] 261 10*3/uL Normal 150-450 [facility] Comment on above: Performed By: #### L 400.0100, L100.0200, L500.2900 #### [facility] [address] [place], [address] RBC (Bld) [#/Vol] 4.95 10*6/uL Normal 4.2-5.4 [facility] Comment on above: Performed By: #### L 400.0100, L100.0200, L500.2900 #### [facility] [address] [place], [address] RDW SD 37.7 fl Normal 35.1-43.9 [facility] Comment on above: Performed By: #### L 400.0100, L100.0200, L500.2900 #### [facility] [address] [place], [address] WBC (Bld) [#/Vol] 6.9 10*3/uL Normal 4.4-11.0 [facility] Comment on above: Performed By: #### L 400.0100, L100.0200, L500.2900 #### [facility] [address] [place], [address] Calculated very low density lipoprotein (VLDL) cholesterol measurementOrdered By: HEALTH ASSESSMENT on 10-29-2024 Calculated very low density lipoprotein (VLDL) cholesterol measurement 30 mg/dL 5-40 [facility] Carbon dioxide, total [Moles /volume] in Central venous bloodOrdered By: HEALTH ASSESSMENT on 10-29-2024 CO2 [Moles/Vol] 23.7 mmol/L 21.0-32.0 [facility] Chloride assayOrdered By: HE ALTH ASSESSMENT on 10-29-2024 Chloride [Moles/Vol] 106 mmol/L 98-[address] [facility] Employee [employer] CHOL:HDL 4.64 Normal [facility] Comment on above: Performed By: #### L 400.0100, L100.0200, L500.2900 #### [facility] [address] [place], [address] Cholesterol [Mass/Vol] 155 mg/dL Normal <=200 [facility] Comment on above: Result Comment: Chol esterol level, Desirable <200 mg/dL Borderline high cholesterol 200-239 mg/dL High cholesterol >=240 mg/dL Recommendations of the NCEP Adult Treatment Panel for the following risk-cutoff thresholds for the [place] population. Performed By: #### L 400.0100, L100.0200, L500.2900 #### [facility] [address] [place], [address] Cholesterol in HDL [Mass/Vol] 33 mg/dL Low [facility] Comment on above: Result Comment: Eugenia onal Cholesterol Education Program (NCEP) guidelines: <40 mg/dL: Low HDL-cholesterol (major risk factor for CHD) >= 60 mg/dL: High HDL-cholesterol (negative risk factor for CHD) HDL-cholesterol is affected by a number of factors, e.g. smoking, exercise, hormones, sex and age. Performed By: #### L 400.0100, L100.0200, L500.2900 #### [facility] [address] [place], [address] Cholesterol in LDL [Mass/Vol] 92 mg/dL Normal [facility] Comment on above: Result Comment: Bord lvzvtc=321-592 mg/dL Higher Rcsx=754 mg/dL or greater Friedwald Equation for LDL-C Performed By: #### L 400.0100, L100.0200, L500.2900 #### [facility] [address] [place], [address] Cholesterol in VLDL [Mass/Vol] 30 mg/dL Normal 5-40 [facility] Comment on above: Performed By: #### L 400.0100, L100.0200, L500.2900 #### [facility] [address] [place], [address] LDH 164 U/L Normal 84-246 [facility] Comment on above: Performed By: #### L 400.0100, L100.0200, L500.2900 #### [facility] [address] [place], [address] Phosphate [Mass/Vol] 3.9 mg/dL Normal 2.7-4.[address] [facility] Comment on above: Performed By: #### L 400.0100, L100.0200, L500.2900 #### [facility] [address] [place], [address] Triglyceride [Mass/Vol] 150 mg/dL Normal [facility] Comment on above: Result Comment: The drugs N-Acetylcysteine and Metamizole may falsely depress this assay. Normal range: <150 mg/dL Borderline High: 150-199 mg/dL High: 200-499 mg/dL Very High: >500 mg/dL Performed By: #### L 400.0100, L100.0200, L500.2900 #### [facility] [address] [place], [place], [address] URIC 3.6 mg/dL Normal 2.6-6.0 [facility] Comment on above: Result Comment: The drugs N-Acetylcysteine and Metamizole may falsely depress this assay. Performed By: #### L 400.0100, L100.0200, L500.2900 #### [facility] [address] [place], [address] Erythrocyte distribution wid th ratioOrdered By: HEALTH ASSESSMENT on 10-29-2024 Erythrocyte distribution width (RBC) [Ratio] 12.9 % 11.6-14.6 [facility] Erythrocyte distribution wid th standard deviationOrdered By: HEALTH ASSESSMENT on 10-29-2024 Erythrocyte distribution width (RBC) [Ratio] 37.7 fl 35.1-43.9 [facility] Free T3on 10-29-2024 Free T3 [Mass/Vol] 3.0 pg/mL Normal 2.18-3.98 [facility] Comment on above: Performed By: #### L 501.9520, L506.0400, L501.9985, L501.67575 ####[facility] [address] [place], [place], [address] Free C9Dhmaxrq By: Krystina ash on 10-29-2024 Free T3 [Mass/Vol] 3.0 pg/mL 2.18-3.98 [facility] Glomerular filtration rate ( GFR) estimation/1.73 sq m using serum, plasma, or whole bOrdered By: HEALTH ASSESSMENT on 10-29-2024 GFR/1.73 sq M.predicted among non-blacks MDRD (S/P/Bld) [Vol rate/Area] 108 mL/min/{1.73_m2} >60 [facility] Comment on above: mL/min/1.73m2 CKD-EP I Creatinine Equation (2020) Hematocrit Auto (Bld) [Volum e fraction]Ordered By: HEALTH ASSESSMENT on 10-29-2024 Hematocrit (Bld) [Volume fraction] 40.0 % 37-47 [facility] Hemoglobin A1con 10-29-2024 HbA1c (Bld) [Mass fraction] 5.5 % Normal <=5.6 [facility] Comment on above: Result Comment: Norm al < 5.7 % Prediabetic 5.7 - 6.4 % Diabetic >or= 6.5 % Please note range changes. Performed By: #### L 501.9520, L506.0400, L501.9985, L501.46181 ####[facility] [address] [place], [address] Hemoglobin A1c percentageOrd ered By: Krystina Calle on 10-29-2024 HbA1c (Bld) [Mass fraction] 5.5 % <5.7 [facility] Comment on above: Normal < 5.7 % Predi abetic 5.7 - 6.4 % Diabetic >or= 6.5 % Please note range changes. Hemoglobin measurementOrdere d By: HEALTH ASSESSMENT on 10-29-2024 Hemoglobin (Bld) [Mass/Vol] 13.4 g/dL 12.0-15.0 [facility] Ketones Test strip Ql (U)Ord ered By: HEALTH ASSESSMENT on 10-29-2024 Ketones Ql (U) Negative Negative [facility] LDL calc ser/plasOrdered By: HEALTH ASSESSMENT on 10-29-2024 Cholesterol in LDL [Mass/Vol] 92 mg/dL [facility] Comment on above: Wzbavnbnqv=325-356 m g/dL & Higher Ktid=217 mg/dL or greaterFriedwald Equation for LDL-C Laboratory - Chemistry and C hemistry - challengeOrdered By: HEALTH ASSESSMENT on 10-29-2024 AST [Catalytic activity/Vol] 23 U/L <32 [facility] Lactate dehydrogenase (LDH) measurementOrdered By: HEALTH ASSESSMENT on 10-29-2024 LDH [Catalytic activity/Vol] 164 U/L 84-246 [facility] MCV (mean corpuscular volume ) determinationOrdered By: HEALTH ASSESSMENT on 10-29-2024 MCV (RBC) [Entitic vol] 80.8 fL Low 81-99 [facility] Mean corpuscular hemoglobin (MCH) determinationOrdered By: HEALTH ASSESSMENT on 10-29-2024 MCH (RBC) [Entitic mass] 27.1 pg 27.0-32.0 [facility] Mean corpuscular hemoglobin concentration (MCHC) determinationOrdered By: HEALTH ASSESSMENT on 10-29-2024 MCHC (RBC) [Mass/Vol] 33.5 g/dL 32-[address] [facility] Mean platelet volume determi nationOrdered By: HEALTH ASSESSMENT on 10-29-2024 Platelet mean volume (Bld) [Entitic vol] 10.2 fL 6.2-12.0 [facility] Nitrite Test strip Ql (U)Ord ered By: HEALTH ASSESSMENT on 10-29-2024 Nitrite Ql (U) Negative Negative [facility] Nucleated red blood cell per centageOrdered By: HEALTH ASSESSMENT on 10-29-2024 Nucleated RBC/100 WBC (Bld) [Ratio] 0 % 0-5 [facility] Platelet countOrdered By: HE ALTH ASSESSMENT on 10-29-2024 Platelets (Bld) [#/Vol] 261 10*3/uL 150-450 [facility] Potassium measurement (mass/ volume)Ordered By: HEALTH ASSESSMENT on 10-29-2024 Potassium (Unsp spec) [Mass/Vol] 4.1 mmol/L 3.3-5.1 [facility] Protein Test strip Ql (U)Ord ered By: HEALTH ASSESSMENT on 10-29-2024 Protein Ql (U) 15 mg/dl High Negative [facility] RBC Auto (Bld) [#/Vol]Ordere d By: HEALTH ASSESSMENT on 10-29-2024 RBC (Bld) [#/Vol] 4.95 10*6/uL 4.2-5.4 [facility] Screening total cholesterol/ high density lipoprotein (HDL) cholesterol ratioOrdered By: HEALTH ASSESSMENT on 10-29-2024 Cholesterol.total/Chol esterol in HDL [Mass ratio] 4.64 {ratio} [facility] Serum creatinine measurement (mass/volume)Ordered By: HEALTH ASSESSMENT on 10-29-2024 Creatinine [Mass/Vol] 0.67 mg/dL Low 0.70-1.[address] [facility] Serum globulin measurementOr dered By: HEALTH ASSESSMENT on 10-29-2024 Globulin (S) [Mass/Vol] 2.2 g/dL 2.2-4.2 [facility] Serum glucose measurement (m ass/volume)Ordered By: HEALTH ASSESSMENT on 10-29-2024 Glucose [Mass/Vol] 122 mg/dL High 70-99 [facility] Serum or plasma alanine brown otransferase (ALT) measurementOrdered By: HEALTH ASSESSMENT on 10-29-2024 ALT [Catalytic activity/Vol] 45 U/L High <35 [facility] Serum or plasma albumin emmanuelle urement (mass/volume)Ordered By: HEALTH ASSESSMENT on 10-29-2024 Albumin [Mass/Vol] 4.4 g/dL 3.5-5.0 [facility] Serum or plasma albumin/glob ulin mass ratioOrdered By: HEALTH ASSESSMENT on 10-29-2024 Albumin/Globulin [Mass ratio] 2.0 {ratio} 0.9-2.4 [facility] Serum or plasma alkaline hayley sphatase measurementOrdered By: HEALTH ASSESSMENT on 10-29-2024 ALP [Catalytic activity/Vol] 81 U/L 35-104 [facility] Serum or plasma calcium emmanuelle urement (mass/volume)Ordered By: HEALTH ASSESSMENT on 10-29-2024 Calcium [Mass/Vol] 9.1 mg/dL 7.6-11.0 [facility] Serum or plasma cholesterol in HDL measurement (mass/volume)Ordered By: HEALTH ASSESSMENT on 10-29-2024 Cholesterol in HDL [Mass/Vol] 33 mg/dL Low >40 [facility] Comment on above: National Cholesterol Education Program (NCEP) guidelines:<40 mg/dL: Low HDL-cholesterol (major risk factor for CHD)>= 60 mg/dL: High HDL-cholesterol (negative risk factor for CHD)HDL-cholesterol is affected by a number of factors, e.g. smoking, exercise, hormones, sex and age. Serum or plasma cholesterol measurement (mass/volume)Ordered By: HEALTH ASSESSMENT on 10-29-2024 Cholesterol [Mass/Vol] 155 mg/dL <201 [facility] Comment on above: Cholesterol level, D esirable <200 mg/dLBorderline high cholesterol 200-239 mg/dLHigh cholesterol >=240 mg/dLRecommendations of the NCEP Adult Treatment Panel for the following risk-cutoff thresholds for the [place] population. Serum or plasma urea nitroge n measurement (mass/volume)Ordered By: HEALTH ASSESSMENT on 10-29-2024 Urea nitrogen [Mass/Vol] 16 mg/dL 4-19 [facility] Serum or plasma uric acid me asurement (mass/volume)Ordered By: HEALTH ASSESSMENT on 10-29-2024 Urate [Mass/Vol] 3.6 mg/dL 2.6-6.0 [facility] Comment on above: The drugs N-Acetylcy steine and Metamizole may falsely depress this assay. Sodium levelOrdered By: [facility] ASSESSMENT on 10-29-2024 Sodium [Moles/Vol] 141 mmol/L 133-145 [facility] T4 Free Directon 10-29-2024 T4 FREE DIRECT 1.20 ng/dL Normal 0.76-1.46 [facility] Comment on above: Performed By: #### L 501.9520, L506.0400, L501.9985, L501.37134 ####[facility] [address] [place], [address] T4 freeOrdered By: Krystina Shaikh s on 10-29-2024 Free T4 [Mass/Vol] 1.20 ng/dL 0.76-1.46 [facility] TSH DL <= 0.005 mIU/L QnOrde red By: Krystina Calle on 10-29-2024 TSH Qn 1.720 uIU/mL 0.300-4.200 [facility] Thyroid Stim Hormone (TSH)on 10-29-2024 TSH 1.720 uIU/mL Normal 0.300-4.200 [facility] Comment on above: Performed By: #### L 501.9520, L506.0400, L501.9985, L501.19172 ####[facility] [address] [place], [address] Total proteinOrdered By: LUCITA [facility] ASSESSMENT on 10-29-2024 Protein [Mass/Vol] 6.6 g/dL 5.9-8.4 [facility] Triglycerides measurementOrd ered By: HEALTH ASSESSMENT on 10-29-2024 Triglyceride [Mass/Vol] 150 mg/dL <199 [facility] Comment on above: The drugs N-Acetylcy steine and Metamizole may falsely depress this assay. Normal range: <150 mg/dLBorderline High: 150-199 mg/dLHigh: 200-499 mg/dLVery High: >500 mg/dL Urinalysis, Employeeon 10-29 BILIRUBIN URINE Negative Normal Negative [facility] Comment on above: Order Comment: Urine , Random Performed By: #### L 400.0100, L100.0200, L500.2900 #### [facility] [address] [place], [address] Clarity (U) Clear Normal Clear [facility] Comment on above: Order Comment: Urine , Random Performed By: #### L 400.0100, L100.0200, L500.2900 #### [facility] [address] [place], [address] Color (U) Yellow Normal Yellow [facility] Comment on above: Order Comment: Urine , Random Performed By: #### L 400.0100, L100.0200, L500.2900 #### [facility] [address] [place], [address] GLUCOSE, UR Normal Normal Normal [facility] Comment on above: Order Comment: Urine , Random Performed By: #### L 400.0100, L100.0200, L500.2900 #### [facility] [address] [place], [address] KETONE UR Negative Normal Negative [facility] Comment on above: Order Comment: Urine , Random Performed By: #### L 400.0100, L100.0200, L500.2900 #### [facility] [address] [place], [address] LEUK ESTERASE Negative Normal Negative [facility] Comment on above: Order Comment: Urine , Random Performed By: #### L 400.0100, L100.0200, L500.2900 #### [facility] [address] [place], [address] Nitrite Ql (U) Negative Normal Negative [facility] Comment on above: Order Comment: Urine , Random Performed By: #### L 400.0100, L100.0200, L500.2900 #### [facility] [address] [place], [address] OCCULT BLOOD-UR 10 /ul Abnormal Negative [facility] Comment on above: Order Comment: Urine , Random Performed By: #### L 400.0100, L100.0200, L500.2900 #### [facility] [address] [place], [address] pH UR 6.5 Normal 5.0 - 8.0 [facility] Comment on above: Order Comment: Urine , Random Performed By: #### L 400.0100, L100.0200, L500.2900 #### [facility] [address] [place], [address] PROT DIPSTX 15 mg/dl Abnormal Negative [facility] Comment on above: Order Comment: Urine , Random Performed By: #### L 400.0100, L100.0200, L500.2900 #### [facility] [address] [place], [address] SP.GR. DIPSTX 1.015 Normal 1.002-1.030 [facility] Comment on above: Order Comment: Urine , Random Performed By: #### L 400.0100, L100.0200, L500.2900 #### [facility] [address] [place], [address] UROBILI Normal Normal Normal [facility] Comment on above: Order Comment: Urine , Random Performed By: #### L 400.0100, L100.0200, L500.2900 #### [facility] [address] [place], [address] Urine clarityOrdered By: LUCITA LTH ASSESSMENT on 10-29-2024 Clarity (U) Clear Clear [facility] Urine color determinationOrd ered By: HEALTH ASSESSMENT on 10-29-2024 Color (U) Yellow Yellow [facility] Urine glucose detectionOrder ed By: HEALTH ASSESSMENT on 10-29-2024 Glucose Ql (U) Normal mg/dl Normal [facility] Urine leukocyte esterase det ection by dipstickOrdered By: HEALTH ASSESSMENT on 10-29-2024 Leukocyte esterase Test strip Ql (U) Negative Negative [facility] Urine pHOrdered By: HEALTH A SSESSMENT on 10-29-2024 pH (U) 6.5 [pH] 5.0 - 8.0 [facility] Urine specific gravity measu rementOrdered By: HEALTH ASSESSMENT on 10-29-2024 Specific gravity (U) [Rel density] 1.015 1.002-1.030 [facility] Urine urobilinogen measureme ntOrdered By: HEALTH ASSESSMENT on 10-29-2024 Urobilinogen Ql (U) Normal mg/dl Normal [facility] White blood cell (WBC) count Ordered By: HEALTH ASSESSMENT on 10-29-2024 WBC (Bld) [#/Vol] 6.9 10*3/uL 4.4-11.0 [facility] BCR/ABL1 P190 QUANTITATIVE P CR BLOODon 10-12-2024 BCR/ABL1 P190 INTERPRETATION Normal [facility] Comment on above: Order Comment: Speci men Type: BLOOD SPECIMENOrdering Facility: [facility] Address: [address] [place] [address] Result Comment: BCR/ ABL1 p190 Quantitative PCR Laboratory Accession Number: [id number] Result: UNDETECTED NCN: N/A Interpretation: p190 BCR/ABL1 [...] this sample, and cDNA prepared by reverse research engineer marine equipment. Real time PCR was performed using primers for e1a2 BCR/ABL1 fusion transcripts and ABL1 transcripts (qPCR BCR/ABL minor, [place], [place], [place]). This test does not detect p210 (e13a2 or e14a2) or other rare BCR/ABL1 transcripts. This assay has a limit of quantification of 0.0036% (LR4.4) and limit of detection of 0.0025% (LR4.6). Disclaimer: This test was developed and its performance characteristics determined by [facility]'s Pathology and Laboratory Medicine Department. It has not been cleared or approved by the FDA. [facility]'s Pathology and [facility] Medicine Department is regulated under CLIA as certified to perform high-complexity testing. This test is used for clinical purposes. It should not be regarded as investigational or for research. Test performed at [facility], [address] [place] [address]. CLIA Number: [id number] Interpretation performed by Jessica Bennett, PhD, [facility] Performed By: #### P 210P, P190P ####[facility] [id number] [address] [place]#### 210ISBP, 190NCBP ####[facility] [id number] [address] [place] BCR/ABL1 [id number] BLOOD( AND BCR/ABL1:ABL1)on 10-12-2024 BCR/ABL1 P190 NCN(%BCR/ABL1:ABL1) N/A Normal [facility] Comment on above: Order Comment: Speci men Type: BLOOD SPECIMENOrdering Facility: [facility] Address: [address] [place] [address] Performed By: #### P 210P, P190P ####[facility] [id number] [place] [address] [place]#### 210ISBP, 190NCBP ####[facility] [id number] [place] [address] [place] BCR/ABL1 P210 %IS PANELon BCR/ABL1 P210 %IS 0.003 Normal [facility] Comment on above: Order Comment: Speci men Type: BLOOD SPECIMENOrdering Facility: [facility] Address: [address] [place] [address] Performed By: #### P 210P, P190P ####[facility] [id number] [place] [address] [place]#### 210ISBP, 190NCBP ####[facility] [id number] [address] [place] BCR/ABL1 P210 MR 4.53 Normal [facility] Comment on above: Order Comment: Speci men Type: BLOOD SPECIMENOrdering Facility: [facility] Address: [address] [place] [address] Performed By: #### P 210P, P190P ####[facility] [id number] [place] [address] [place]#### 210ISBP, 190NCBP ####[facility] [id number] [place] [address] [place] BCR/ABL1 P210 QUANTITATIVE P CR BLOODon 10-12-2024 BCR/ABL1 P210 INTERPRETATION Normal [facility] Comment on above: Order Comment: Speci men Type: BLOOD SPECIMENOrdering Facility: [facility] Address: [address] [place] [address] Result Comment: BCR/ ABL1 p210 Quantitative PCR Laboratory Accession Number: [id number] Result: DETECTED MR: 4.53 %IS: 0.003 Interpretation: p210 BCR/ABL1 transcripts were detected. Quantitative results are expressed on the International Scale (IS) and a log molecular response (MR) is calculated. On this scale, a value of less than or equal to 0.1% corresponds to a major molecular response (MMR or MR3.0). Methodology: The [employer] QuantideX BCR/ABL IS assay is an FDA-cleared [...] #### P 210P, P190P ####[facility] [id number] [address] [place]#### 210ISBP, 190NCBP ####[facility] [id number] [place] [address] [place] CBC W Auto Differential pane l (Bld)on 10-12-2024 Basophils (Bld) [#/Vol] 0.06 10*3/uL Normal <0.[address] [facility] Comment on above: Order Comment: Speci men Type: BLOOD SPECIMEN Ordering Facility: [facility] Address: [address] [place] [address] Performed By: #### 5 7021-8 #### [facility] [id number] [address] [place] [address] [place] Basophils/100 WBC (Bld) 0.6 % Normal [facility] Comment on above: Order Comment: Speci men Type: BLOOD SPECIMEN Ordering Facility: [facility] Address: [address] [place] [address] Performed By: #### 5 7021-8 #### [facility] [id number] [address] [place] [address] [place] Differential cell count method Nom (Bld) Auto Normal [facility] Comment on above: Order Comment: Speci men Type: BLOOD SPECIMEN Ordering Facility: [facility] Address: [address] [place] [address] Performed By: #### 5 7021-8 #### [facility] CLIA [id number] [address] [place] [address] [place] Eosinophils (Bld) [#/Vol] 0.18 10*3/uL Normal <0.[address] [facility] Comment on above: Order Comment: Speci men Type: BLOOD SPECIMEN Ordering Facility: [facility] Address: [address] [place] [address] Performed By: #### 5 7021-8 #### [facility] CLIA [id number] [address] [place] [address] [place] Eosinophils/100 WBC (Bld) 1.8 % Normal [facility] Comment on above: Order Comment: Speci men Type: BLOOD SPECIMEN Ordering Facility: [facility] Address: [address] [place] [address] Performed By: #### 5 7021-8 #### [facility] CLIA [id number] [address] [place] [address] [place] Erythrocyte distribution width (RBC) [Ratio] 13.2 % Normal 11.5-15.[address] [facility] Comment on above: Order Comment: Speci men Type: BLOOD SPECIMEN Ordering Facility: [facility] Address: [address] [place] [address] Performed By: #### 5 7021-8 #### [facility] CLIA [id number] [address] [place] [address] [place] Hematocrit (Bld) [Volume fraction] 39.8 % Normal 36.0-46.[address] [facility] Comment on above: Order Comment: Speci men Type: BLOOD SPECIMEN Ordering Facility: [facility] Address: [address] [place] [address] Performed By: #### 5 7021-8 #### [facility] CLIA [id number] [address] [place] [address] [place] Hemoglobin (Bld) [Mass/Vol] 13.4 g/dL Normal 11.5-15.[address] [facility] Comment on above: Order Comment: Speci men Type: BLOOD SPECIMEN Ordering Facility: [facility] Address: [address] [place] [address] Performed By: #### 5 7021-8 #### [facility] CLIA [id number] [address] [place] [address] [place] Immature granulocytes (Bld) [#/Vol] 0.06 10*3/uL Normal <0.[address] [facility] Comment on above: Order Comment: Speci men Type: BLOOD SPECIMEN Ordering Facility: [facility] Address: [address] [place] [address] Performed By: #### 5 7021-8 #### [facility] CLIA [id number] [address] [place] [address] [place] Immature granulocytes/100 WBC (Bld) 0.6 % Normal [facility] Comment on above: Order Comment: Speci men Type: BLOOD SPECIMEN Ordering Facility: [facility] Address: [address] [place] [address] Performed By: #### 5 7021-8 #### [facility] CLIA [id number] [address] [place] [address] [place] Lymphocytes (Bld) [#/Vol] 1.85 10*3/uL Normal 1.00-4.[address] [facility] Comment on above: Order Comment: Speci men Type: BLOOD SPECIMEN Ordering Facility: [facility] Address: [address] [place] [address] Performed By: #### 5 7021-8 #### [facility] CLIA [id number] [address] [place] [address] [place] Lymphocytes/100 WBC (Bld) 18.1 % Normal [facility] Comment on above: Order Comment: Speci men Type: BLOOD SPECIMEN Ordering Facility: [facility] Address: [address] [place] [address] Performed By: #### 5 7021-8 #### [facility] CLIA [id number] [address] [place] [address] [place] MCH (RBC) [Entitic mass] 26.8 pg Normal 26.0-34.[address] [facility] Comment on above: Order Comment: Speci men Type: BLOOD SPECIMEN Ordering Facility: [facility] Address: [address] [place] [address] Performed By: #### 5 7021-8 #### [facility] CLIA [id number] [address] [place] [address] [place] MCHC (RBC) [Mass/Vol] 33.7 g/dL Normal 30.5-36.0 [facility] Comment on above: Order Comment: Speci men Type: BLOOD SPECIMEN Ordering Facility: [facility] Address: [address] [place] [address] Performed By: #### 5 7021-8 #### [facility] CLIA [id number] [address] [place] [address] [place] MCV (RBC) [Entitic vol] 79.6 fL Low 80.0-100.[address] [facility] Comment on above: Order Comment: Speci men Type: BLOOD SPECIMEN Ordering Facility: [facility] Address: [address] [place] [address] Performed By: #### 5 7021-8 #### [facility] CLIA [id number] [address] [place] [address] [place] Monocytes (Bld) [#/Vol] 0.55 10*3/uL Normal <0.[address] [facility] Comment on above: Order Comment: Speci men Type: BLOOD SPECIMEN Ordering Facility: [facility] Address: [address] [place] [address] Performed By: #### 5 7021-8 #### [facility] CLIA [id number] [address] [place] [address] [place] Monocytes/100 WBC (Bld) 5.4 % Normal [facility] Comment on above: Order Comment: Speci men Type: BLOOD SPECIMEN Ordering Facility: [facility] Address: [address] [place], [place] [address] Performed By: #### 5 7021-8 #### [facility] CLIA [id number] [address] [place] [address] [place] Neutrophils (Bld) [#/Vol] 7.53 10*3/uL High 1.45-7.[address] [facility] Comment on above: Order Comment: Speci men Type: BLOOD SPECIMEN Ordering Facility: [facility] Address: [address] [place] [address] Performed By: #### 5 7021-8 #### [facility] CLIA [id number] [address] [place] [address] [place] Neutrophils/100 WBC (Bld) 73.5 % Normal [facility] Comment on above: Order Comment: Speci men Type: BLOOD SPECIMEN Ordering Facility: [facility] Address: [address] [place] [address] Performed By: #### 5 7021-8 #### [facility] CLIA [id number] [address] [place] [address] [place] Nucleated RBC (Bld) [#/Vol] 10*3/uL Normal <0.[address] [facility] Comment on above: Order Comment: Speci men Type: BLOOD SPECIMEN Ordering Facility: [facility] Address: [address] [place] [address] Performed By: #### 5 7021-8 #### [facility] CLIA [id number] [address] [place] [address] [place] Nucleated RBC/100 WBC (Bld) [Ratio] 0.0 /100 WBC Normal [facility] Comment on above: Order Comment: Speci men Type: BLOOD SPECIMEN Ordering Facility: [facility] Address: [address] [place] [address] Performed By: #### 5 7021-8 #### [facility] CLIA [id number] [address] [place] [address] [place] Platelet mean volume (Bld) [Entitic vol] 10.0 fL Normal 9.0-12.[address] [facility] Comment on above: Order Comment: Speci men Type: BLOOD SPECIMEN Ordering Facility: [facility] Address: [address] [place] [address] Performed By: #### 5 7021-8 #### [facility] CLIA [id number] [address] [place] [address] [place] Platelets (Bld) [#/Vol] 254 10*3/uL Normal 150-[address] [facility] Comment on above: Order Comment: Speci men Type: BLOOD SPECIMEN Ordering Facility: [facility] Address: [address] [place] [address] Performed By: #### 5 7021-8 #### [facility] CLIA [id number] [address] [place] [address] [place] RBC (Bld) [#/Vol] 5.00 10*6/uL Normal 3.90-5.20 [facility] Comment on above: Order Comment: Speci men Type: BLOOD SPECIMEN Ordering Facility: [facility] Address: [address] [place] [address] Performed By: #### 5 7021-8 #### [facility] CLIA [id number] [address] [place] [address] [place] WBC (Bld) [#/Vol] 10.23 10*3/uL Normal 3.70-11.00 [facility] Comment on above: Order Comment: Speci men Type: BLOOD SPECIMEN Ordering Facility: [facility] Address: [address] [place] [address] Performed By: #### 5 7021-8 #### [facility] CLIA [id number] [address] [place] [address] [place] Comprehensive metabolic 2000 panelon 10-12-2024 Albumin [Mass/Vol] 4.4 g/dL Normal 3.9-4.[address] [facility] Comment on above: Order Comment: Speci men Type: BLOOD SPECIMEN Ordering Facility: [facility] Address: [address] [place] [id number] Performed By: #### 5 7021-8 #### [facility] [facility] CLIA [id number] [address] [place] [address] [place] ALP [Catalytic activity/Vol] 81 U/L Normal 34-[address] [facility] Comment on above: Order Comment: Speci men Type: BLOOD SPECIMEN Ordering Facility: [facility] Address: [address] [place] [address] Performed By: #### 5 7021-8 #### [facility] CLIA [id number] [address] [place] [address] [place] ALT [Catalytic activity/Vol] 34 U/L Normal 7-[address] [facility] Comment on above: Order Comment: Speci men Type: BLOOD SPECIMEN Ordering Facility: [facility] Address: [facility] [place] [id number] Performed By: #### 5 7021-8 #### [facility] CLIA [id number] [address] [place] [address] [place] Anion gap [Moles/Vol] 16 mmol/L High 8-15 [facility] Comment on above: Order Comment: Speci men Type: BLOOD SPECIMEN Ordering Facility: [facility] Address: [facility] [place] [id number] Performed By: #### 5 7021-8 #### [facility] CLIA [id number] [address] [place] [address] [place] AST [Catalytic activity/Vol] 14 U/L Normal 13-[address] [facility] Comment on above: Order Comment: Speci men Type: BLOOD SPECIMEN Ordering Facility: [facility] Address: [address] [place] [address] Performed By: #### 5 7021-8 #### [facility] CLIA [id number] [address] [place] [address] [place] Bilirubin [Mass/Vol] 0.5 mg/dL Normal 0.2-1.3 [facility] Comment on above: Order Comment: Speci men Type: BLOOD SPECIMEN Ordering Facility: [facility] Address: [address] [place] [address] Performed By: #### 5 7021-8 #### [facility] CLIA [id number] [address] [place] [address] [place] Calcium [Mass/Vol] 9.0 mg/dL Normal 8.5-10.[address] [facility] Comment on above: Order Comment: Speci men Type: BLOOD SPECIMEN Ordering Facility: [facility] Address: [address] [place] [address] Performed By: #### 5 7021-8 #### [facility] CLIA [id number] [address] [place] [address] [place] Chloride [Moles/Vol] 104 mmol/L Normal 98-107 [facility] Comment on above: Order Comment: Speci men Type: BLOOD SPECIMEN Ordering Facility: [facility] Address: [address] [place], [place] [address] Performed By: #### 5 7021-8 #### [facility] CLIA [id number] [address] [place] [address] [place] CO2 [Moles/Vol] 21 mmol/L Low 22-[address] [facility] Comment on above: Order Comment: Speci men Type: BLOOD SPECIMEN Ordering Facility: [facility] Address: [address] [place], [place] [address] Performed By: #### 5 7021-8 #### [facility] CLIA [id number] [address] [place] [address] [place] Creatinine [Mass/Vol] 0.60 mg/dL Normal 0.58-0.96 [facility] Comment on above: Order Comment: Speci men Type: BLOOD SPECIMEN Ordering Facility: [facility] Address: [address] [place], [place] [address] Performed By: #### 5 7021-8 #### [facility] CLIA [id number] [address] [place] [address] [place] eGFRcr SerPlBld CKD-EPI 2020 112 mL/min/1.73m??? Normal >=[address] [facility] Comment on above: Order Comment: Kaitlin men Type: BLOOD SPECIMEN Ordering Facility: [facility] Address: [address] [place] [address] Result Comment: Antoinette mated Glomerular Filtration Rate [...] GFR. Performed By: #### 5 7021-8 #### [facility] CLIA [id number] [address] [place] [address] [place] Glucose [Mass/Vol] 116 mg/dL High 74-[address] [facility] Comment on above: Order Comment: Speci men Type: BLOOD SPECIMEN Ordering Facility: [facility] Address: [address] [place] [id number] Result Comment: The [place] Diabetes Association (ADA) provides guidance for cutoff [...] Standards of Medical Care in Diabetes 2016, [place] [employer] Association. Diabetes Care. 2016.39(Suppl 1). Performed By: #### 5 7021-8 #### [facility] CLIA [id number] [address] [place] [address] [place] Potassium [Moles/Vol] 3.9 mmol/L Normal 3.7-5.1 [facility] Comment on above: Order Comment: Kaitlin shafer Type: BLOOD SPECIMEN Ordering Facility: [facility] Address: [address] [place] [address] Performed By: #### 5 7021-8 #### [facility] CLIA [id number] [address] [place] [address] [place] Protein [Mass/Vol] 6.8 g/dL Normal 6.3-8.[address] [facility] Comment on above: Order Comment: Kaitlin shafer Type: BLOOD SPECIMEN Ordering Facility: [facility] Address: [address] [place], [place] [address] Performed By: #### 5 7021-8 #### [facility] [id number] [address] [place] [address] [place] Sodium [Moles/Vol] 141 mmol/L Normal 136-[address] [facility] Comment on above: Order Comment: Kaitlin shafer Type: BLOOD SPECIMEN Ordering Facility: [facility] Address: [address] [place] [address] Performed By: #### 5 7021-8 #### [facility] CLIA [id number] [address] [place] [address] [place] Urea nitrogen [Mass/Vol] 10 mg/dL Normal 7-21 [facility] Comment on above: Order Comment: Kaitlin shafer Type: BLOOD SPECIMEN Ordering Facility: [facility] Address: [address] [place] [address] Performed By: #### 5 7021-8 #### [facility] PADMINI [id number] [address] [place] [address] [place] CNPNon 09-28-2024 CNPN Telephone (HEMAWS) -- LIBIA OLIVAS ([id number]) 1975 F Date Time Provider Department 09/28/24 FABIANO LIZ During your visit today, we recorded the following information about you: Sona Carlos 09/28/2024 3:45 PM Signed Patient called stating she contacted [facility] to fill prescription Scemblix. She was informed that is not available. They do not know when they would get it in. Patient has 2 days left of medication. She states if we contact [facility] they will be able to transfer the prescription to another location. Patient says that will save her some money. Please advise patient. Alisha Romero LPN 09/28/2024 4:06 PM Signed I reached out to [facility] Pharm[facility] and to the patient. Transfers are pharmacy to pharmacy, therefore, [facility] will need to reach out to [facility] to initiate the transfer of the Rx. I contacted [facility] and a message will be given to the pharmacist to contact [facility] to transfer the Rx. Dr. Liz is currently out of the office. WILIAN Mei Melissa 09/30/2024 10:55 AM Signed Patient calling on status of medication. She states she has 1 left. Please advise. Alisha Romero LPN 09/30/2024 11:02 AM Signed [facility] to schedule [facility]. [...] ALISHA ROMERO on 09/29/[address] [facility] Orthopedic Visit Reporton Orthopedic Visit Report [facility] [address] [place] [address] OFFICE VISIT Date of Service: 08/20/24 MR#: [id number] Acct: [id number] Name: LIBIA OLIVAS FRIDA Rep #: [id number] : 1975 Provider: Dr. Dallas Rojas MD Age/Sex: 49/F Location: [facility] Status: Signed Intake Vital Signs 02/24/24 09:07 [...] home: Yes additional 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: - Rodolfo [facility] ER NURSE HPI LUMBAR SPINE Details: This documentation accurately reflects the service provided and the decisions made by me, Dr. Dallas Rojas MD 08/20/24 4070. 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 She denies any physical therapy. She was [...] Right s (more content not included)... Normal [facility] Magnetic resonance imaging r eportOrdered By: Lalit Romero on 08-11-2024 Study report [facility] Imaging Services [address] [place] [address] Spine Lumbar (Routine) MR#: [id number] Acct: [id number] Name: LIBIA OLIVAS FRIDA Rep #: [id number] : 1975 F 49 From: Lupe Romero MD PCP: Dr. Krystina Calle, Status: REG CLI Study:Spine Lumbar (Routine) Date of Exam: 08/10/24 Exam# [id number] Ordering Dr: Avelino READ PROCEDURE: SPINE LUMBAR [...] is no significant interval change. [facility] CC: ESHA READ; Dr. Krystina Calle DO ~ Software Program Manager: Signed [facility] Spine Lumbar (Routine)on Spine Lumbar (Routine) [facility] Imaging Services [address] [place], [place] [address] Spine Lumbar (Routine) MR#: [id number] Acct: [id number] Name: LIBIA OLIVAS FRIDA Rep #: [id number] : 1975 F 49 From: Lalit Romero MD PCP: Dr. Krystina Calle DO Status: REG CLI Study: Spine Lumbar (Routine) Date of Exam: 08/10/24 Exam# [id number] Ordering Dr: ESHA READ PROCEDURE: SPINE LUMBAR [...] CC: ESHA READ; Dr. Krystina Calle DO Software Program Manager: Signed Normal [facility] CBC W Auto Differential pane l (Bld)on 07-29-2024 Basophils (Bld) [#/Vol] 0.07 10*3/uL Normal <0.[address] [facility] Comment on above: Order Comment: Speci men Type: BLOOD SPECIMENOrdering Facility: [facility] Address: [address] [place] [address] Performed By: #### 5 7021-8 ####[facility] DEEJAYWNCLIA [id number] [place] [address] [place] Basophils/100 WBC (Bld) 0.7 % Normal [facility] Comment on above: Order Comment: Speci men Type: BLOOD SPECIMENOrdering Facility: [facility] Address: [address] [place] [address] Performed By: #### 5 7021-8 ####[facility] [id number] [place] [address] [place] Differential cell count method Nom (Bld) Auto Normal [facility] Comment on above: Order Comment: Speci men Type: BLOOD SPECIMENOrdering Facility: [facility] Address: [address] [place] [address] Performed By: #### 5 7021-8 ####[facility] [id number] [place] [address] [place] Eosinophils (Bld) [#/Vol] 0.22 10*3/uL Normal <0.[address] [facility] Comment on above: Order Comment: Speci men Type: BLOOD SPECIMENOrdering Facility: [facility] Address: [address] [place] [address] Performed By: #### 5 7021-8 ####[facility] [id number] [place] [address] [place] Eosinophils/100 WBC (Bld) 2.4 % Normal [facility] Comment on above: Order Comment: Speci men Type: BLOOD SPECIMENOrdering Facility: [facility] Address: [address] [place] [address] Performed By: #### 5 7021-8 ####[facility] [id number] [place] [address] [place] Erythrocyte distribution width (RBC) [Ratio] 13.2 % Normal 11.5-15.[address] [facility] Comment on above: Order Comment: Speci men Type: BLOOD SPECIMENOrdering Facility: [facility] Address: [address] [place] [address] Performed By: #### 5 7021-8 ####[facility] [id number] [place] [address] [place] Hematocrit (Bld) [Volume fraction] 39.1 % Normal 36.0-46.[address] [facility] Comment on above: Order Comment: Speci men Type: BLOOD SPECIMENOrdering Facility: [facility] Address: [address] [place] [address] Performed By: #### 5 7021-8 ####[facility] [id number] [place] [address] [place] Hemoglobin (Bld) [Mass/Vol] 13.0 g/dL Normal 11.5-15.[address] [facility] Comment on above: Order Comment: Speci men Type: BLOOD SPECIMENOrdering Facility: [facility] Address: [address] [place] [address] Performed By: #### 5 7021-8 ####[facility] [id number] [place] [address] [place] Immature granulocytes (Bld) [#/Vol] 0.06 10*3/uL Normal <0.[address] [facility] Comment on above: Order Comment: Speci men Type: BLOOD SPECIMENOrdering Facility: [facility] Address: [address] [place] [address] Performed By: #### 5 7021-8 ####[facility] [id number] [place] [address] [place] Immature granulocytes/100 WBC (Bld) 0.6 % Normal [facility] Comment on above: Order Comment: Speci men Type: BLOOD SPECIMENOrdering Facility: [facility] Address: [address] [place] [address] Performed By: #### 5 7021-8 ####[facility] DEEJAYWNCLIA [id number] [place] [address] [place] Lymphocytes (Bld) [#/Vol] 1.48 10*3/uL Normal 1.00-4.[address] [facility] Comment on above: Order Comment: Speci men Type: BLOOD SPECIMENOrdering Facility: [facility] Address: [address] [place] [address] Performed By: #### 5 7021-8 ####[facility] [id number] [place] [address] [place] Lymphocytes/100 WBC (Bld) 15.8 % Normal [facility] Comment on above: Order Comment: Speci men Type: BLOOD SPECIMENOrdering Facility: [facility] Address: [address] [place] [address] Performed By: #### 5 7021-8 ####[facility] COMPANY[facility] [id number] [place] [address] [place] MCH (RBC) [Entitic mass] 27.0 pg Normal 26.0-34.[address] [facility] Comment on above: Order Comment: Speci men Type: BLOOD SPECIMENOrdering Facility: [facility] Address: [address] [place] [address] Performed By: #### 5 7021-8 ####[facility] RIVERSIDEWNCLIA [id number] [place] [address] [place] MCHC (RBC) [Mass/Vol] 33.2 g/dL Normal 30.5-36.0 [facility] Comment on above: Order Comment: Speci men Type: BLOOD SPECIMENOrdering Facility: [facility] Address: [address] [place] [address] Performed By: #### 5 7021-8 ####[facility] COMPANY[facility] [id number] [place] [address] [place] MCV (RBC) [Entitic vol] 81.3 fL Normal 80.0-100.[address] [facility] Comment on above: Order Comment: Speci men Type: BLOOD SPECIMENOrdering Facility: [facility] Address: [address] [place] [address] Performed By: #### 5 7021-8 ####[facility] [id number] [place] [address] [place] Monocytes (Bld) [#/Vol] 0.67 10*3/uL Normal <0.[address] [facility] Comment on above: Order Comment: Speci men Type: BLOOD SPECIMENOrdering Facility: [facility] Address: [address] [place] [address] Performed By: #### 5 7021-8 ####[facility] [id number] [place] [address] [place] Monocytes/100 WBC (Bld) 7.2 % Normal [facility] Comment on above: Order Comment: Speci men Type: BLOOD SPECIMENOrdering Facility: [facility] Address: [address] [place] [address] Performed By: #### 5 7021-8 ####[facility] [id number] [place] [address] [place] Neutrophils (Bld) [#/Vol] 6.84 10*3/uL Normal 1.45-7.[address] [facility] Comment on above: Order Comment: Speci men Type: BLOOD SPECIMENOrdering Facility: [facility] Address: [address] [place] [address] Performed By: #### 5 7021-8 ####[facility] COMPANY[facility] [id number] [place] [address] [place] Neutrophils/100 WBC (Bld) 73.3 % Normal [facility] Comment on above: Order Comment: Speci men Type: BLOOD SPECIMENOrdering Facility: [facility] Address: [address] [place] [address] Performed By: #### 5 7021-8 ####[facility] [id number] [place] [address] [place] Nucleated RBC (Bld) [#/Vol] 10*3/uL Normal <0.[address] [facility] Comment on above: Order Comment: Speci men Type: BLOOD SPECIMENOrdering Facility: [facility] Address: [address] [place] [address] Performed By: #### 5 7021-8 ####[facility] [id number] [place] [address] [place] Nucleated RBC/100 WBC (Bld) [Ratio] 0.0 /100 WBC Normal [facility] Comment on above: Order Comment: Speci men Type: BLOOD SPECIMENOrdering Facility: [facility] Address: [address] [place] [address] Performed By: #### 5 7021-8 ####[facility] [id number] [place] [address] [place] Platelet mean volume (Bld) [Entitic vol] 9.5 fL Normal 9.0-12.[address] [facility] Comment on above: Order Comment: Speci men Type: BLOOD SPECIMENOrdering Facility: [facility] Address: [address] [place] [address] Performed By: #### 5 7021-8 ####[facility] [id number] [place] [address] [place] Platelets (Bld) [#/Vol] 227 10*3/uL Normal 150-[address] [facility] Comment on above: Order Comment: Speci men Type: BLOOD SPECIMENOrdering Facility: [facility] Address: [address] [place] [address] Performed By: #### 5 7021-8 ####[facility] DEEJAYMandyNCLIA [id number] [place] [address] [place] RBC (Bld) [#/Vol] 4.81 10*6/uL Normal 3.90-5.20 [facility] Comment on above: Order Comment: Speci men Type: BLOOD SPECIMENOrdering Facility: [facility] Address: [address] [place] [address] Performed By: #### 5 7021-8 ####[facility] [id number] [place] [address] [place] WBC (Bld) [#/Vol] 9.34 10*3/uL Normal 3.70-11.00 [facility] Comment on above: Order Comment: Speci men Type: BLOOD SPECIMENOrdering Facility: [facility] Address: [address] [place] [address] Performed By: #### 5 7021-8 ####[facility] [id number] [place] [address] [place] Comprehensive metabolic 2000 panelon 07-29-2024 Albumin [Mass/Vol] 4.1 g/dL Normal 3.9-4.[address] [facility] Comment on above: Order Comment: Speci men Type: BLOOD SPECIMENOrdering Facility: [facility] Address: [address] [place] [address] Performed By: #### 2 4323-8 ####[facility] [id number] [place] [address] [place] ALP [Catalytic activity/Vol] 71 U/L Normal 34-[address] [facility] Comment on above: Order Comment: Speci men Type: BLOOD SPECIMENOrdering Facility: [facility] Address: [address] [place] [address] Performed By: #### 2 4323-8 ####[facility] MILLTOWNCLIA [id number] [place] [address] [place] ALT [Catalytic activity/Vol] 22 U/L Normal 7-[address] [facility] Comment on above: Order Comment: Speci men Type: BLOOD SPECIMENOrdering Facility: [facility] Address: [address] [place] [address] Performed By: #### 2 4323-8 ####[facility] MILLWNCLIA [id number] [place] [address] [place] Anion gap [Moles/Vol] 7 mmol/L Low 8-15 [facility] Comment on above: Order Comment: Speci men Type: BLOOD SPECIMENOrdering Facility: [facility] Address: [address] [place] [address] Performed By: #### 2 4323-8 ####[facility] [id number] [place] [address] [place] AST [Catalytic activity/Vol] 10 U/L Low 13-[address] [facility] Comment on above: Order Comment: Speci men Type: BLOOD SPECIMENOrdering Facility: [facility] Address: [address] [place] [address] Performed By: #### 2 4323-8 ####[facility] [id number] [place] [address] [place] Bilirubin [Mass/Vol] 0.4 mg/dL Normal 0.2-1.3 [facility] Comment on above: Order Comment: Speci men Type: BLOOD SPECIMENOrdering Facility: [facility] Address: [address] [place] [address] Performed By: #### 2 4323-8 ####[facility] [id number] [place] [address] [place] Calcium [Mass/Vol] 8.9 mg/dL Normal 8.5-10.[address] [facility] Comment on above: Order Comment: Speci men Type: BLOOD SPECIMENOrdering Facility: [facility] Address: [address] [place] [address] Performed By: #### 2 4323-8 ####[facility] [id number] [place] [address] [place] Chloride [Moles/Vol] 107 mmol/L Normal 98-107 [facility] Comment on above: Order Comment: Speci men Type: BLOOD SPECIMENOrdering Facility: [facility] Address: [address] [place] [address] Performed By: #### 2 4323-8 ####[facility] [id number] [place] [address] [place] CO2 [Moles/Vol] 26 mmol/L Normal 22-[address] [facility] Comment on above: Order Comment: Speci men Type: BLOOD SPECIMENOrdering Facility: [facility] Address: [address] [place] [address] Performed By: #### 2 4323-8 ####[facility] [id number] [place] [address] [place] Creatinine [Mass/Vol] 0.65 mg/dL Normal 0.58-0.96 [facility] Comment on above: Order Comment: Speci men Type: BLOOD SPECIMENOrdering Facility: [facility] Address: [address] [place] [address] Performed By: #### 2 4323-8 ####[facility] [id number] [place] [address] [place] Creatinine and Glomerular filtration rate.predicted panel (S/P/Bld) 109 mL/min/1.73m??? Normal >=[address] [facility] Comment on above: Order Comment: Speci men Type: BLOOD SPECIMENOrdering Facility: [facility] Address: [address] [place] [address] Result Comment: Antoinette mated Glomerular Filtration Rate [...] Performed By: #### 2 4323-8 ####[facility] [id number] [place] [address] [place] Glucose [Mass/Vol] 130 mg/dL High 74-[address] [facility] Comment on above: Order Comment: Kaitlin shafer Type: BLOOD SPECIMENOrdering Facility: [facility] Address: [address] [place] [address] Result Comment: The [place] [employer] (ADA) provides guidance for cutoff [...] Standards of Medical Care in Diabetes 2016, [place] [employer]. Diabetes Care. 2016.39(Suppl 1). Performed By: #### 2 4323-8 ####[facility] [id number] [place] [address] [place] Potassium [Moles/Vol] 4.1 mmol/L Normal 3.7-5.1 [facility] Comment on above: Order Comment: Kaitlin shafer Type: BLOOD SPECIMENOrdering Facility: [facility] Address: [address] [id number] Performed By: #### 2 4323-8 ####[facility] MILLTOWNCLIA [id number] [place] [address] [place] Protein [Mass/Vol] 6.4 g/dL Normal 6.3-8.[address] [facility] Comment on above: Order Comment: Speci men Type: BLOOD SPECIMENOrdering Facility: [facility] Address: [address] [place] [address] Performed By: #### 2 4323-8 ####[facility] MILLWNCLIA [id number] [place] [address] [place] Sodium [Moles/Vol] 140 mmol/L Normal 136-[address] [facility] Comment on above: Order Comment: Speci men Type: BLOOD SPECIMENOrdering Facility: [facility] Address: [address] [place] [address] Performed By: #### 2 4323-8 ####[facility] [id number] [place] [address] [place] Urea nitrogen [Mass/Vol] 10 mg/dL Normal 7-[address] [facility] Comment on above: Order Comment: Speci men Type: BLOOD SPECIMENOrdering Facility: [facility] Address: [address] [place] [address] Performed By: #### 2 4323-8 ####[facility] [id number] [place] [address] [place] L/S Spine Bending Flex/[place] 07-14-2024 L/S Spine Bending Flex/Ext [facility] Imaging Services [address] [place] [address] L/S Spine Bending Flex/Ext MR#: [id number] Acct: [id number] Name: LIBIA OLIVAS FRIDA Rep #: [id number] : 1975 F 49 From: Chau Martinez MD PCP: Dr. Krystina Calle, DO Status: REG CLI Study: L/S Spine Bending Flex/Ext Date of Exam: 07/14 Exam# [id number] Ordering Dr: Mireya Cortez PROCEDURE: L/S SPINE [...] the flexion and extension views. Reading Location: CNL-HLRXREL-GY CC: AZEB Love; Dr. Krystina Calle DO Software Program Manager: Signed Normal [facility] CBC W Auto Differential pane l (Bld)on 07-01-2024 Basophils (Bld) [#/Vol] 0.05 10*3/uL Normal <0.[address] [facility] Comment on above: Order Comment: Speci men Type: BLOOD SPECIMEN Ordering Facility: [facility] Address: [address] [place] [address] Performed By: #### 5 7021-8 #### [facility] CLIA [id number] [address] [place] [address] [place] Basophils/100 WBC (Bld) 0.9 % Normal [facility] Comment on above: Order Comment: Speci men Type: BLOOD SPECIMEN Ordering Facility: [facility] Address: [address] [place] [address] Performed By: #### 5 7021-8 #### [facility] CLIA [id number] [address] [place] [address] [place] Differential cell count method Nom (Bld) Auto Normal [facility] Comment on above: Order Comment: Speci men Type: BLOOD SPECIMEN Ordering Facility: [facility] Address: [address] [place] [address] Performed By: #### 5 7021-8 #### [facility] CLIA [id number] [address] [place] [address] [place] Eosinophils (Bld) [#/Vol] 0.18 10*3/uL Normal <0.[address] [facility] Comment on above: Order Comment: Speci men Type: BLOOD SPECIMEN Ordering Facility: [facility] Address: [address] [place] [address] Performed By: #### 5 7021-8 #### [facility] CLIA [id number] [address] [place] [address] [place] Eosinophils/100 WBC (Bld) 3.2 % Normal [facility] Comment on above: Order Comment: Speci men Type: BLOOD SPECIMEN Ordering Facility: [facility] Address: [address] [place] [address] Performed By: #### 5 7021-8 #### [facility] CLIA [id number] [address] [place] [address] [place] Erythrocyte distribution width (RBC) [Ratio] 12.8 % Normal 11.5-15.[address] [facility] Comment on above: Order Comment: Speci men Type: BLOOD SPECIMEN Ordering Facility: [facility] Address: [address] [place] [address] Performed By: #### 5 7021-8 #### [facility] CLIA [id number] [address] [place] [address] [place] Hematocrit (Bld) [Volume fraction] 39.1 % Normal 36.0-46.[address] [facility] Comment on above: Order Comment: Speci men Type: BLOOD SPECIMEN Ordering Facility: [facility] Address: [address] [place] [address] Performed By: #### 5 7021-8 #### [facility] CLIA [id number] [address] [place] [address] [place] Hemoglobin (Bld) [Mass/Vol] 13.2 g/dL Normal 11.5-15.[address] [facility] Comment on above: Order Comment: Speci men Type: BLOOD SPECIMEN Ordering Facility: [facility] Address: [address] [place] [address] Performed By: #### 5 7021-8 #### [facility] CLIA [id number] [address] [place] [address] [place] Immature granulocytes (Bld) [#/Vol] 0.03 10*3/uL Normal <0.[address] [facility] Comment on above: Order Comment: Speci men Type: BLOOD SPECIMEN Ordering Facility: [facility] Address: [address] [place] [address] Performed By: #### 5 7021-8 #### [facility] CLIA [id number] [address] [place] [address] [place] Immature granulocytes/100 WBC (Bld) 0.5 % Normal [facility] Comment on above: Order Comment: Speci men Type: BLOOD SPECIMEN Ordering Facility: [facility] Address: [address] [place] [address] Performed By: #### 5 7021-8 #### [facility] CLIA [id number] [address] [place] [address] [place] Lymphocytes (Bld) [#/Vol] 1.25 10*3/uL Normal 1.00-4.[address] [facility] Comment on above: Order Comment: Speci men Type: BLOOD SPECIMEN Ordering Facility: [facility] Address: [address] [place] [address] Performed By: #### 5 7021-8 #### [facility] CLIA [id number] [address] [place] [address] [place] Lymphocytes/100 WBC (Bld) 22.2 % Normal [facility] Comment on above: Order Comment: Speci men Type: BLOOD SPECIMEN Ordering Facility: [facility] Address: [address] [place] [address] Performed By: #### 5 7021-8 #### [facility] CLIA [id number] [address] [place] [address] [place] [facility] MCH (RBC) [Entitic mass] 27.3 pg Normal 26.0-34.[address] [facility] Comment on above: Order Comment: Speci men Type: BLOOD SPECIMEN Ordering Facility: [facility] Address: [address] [place] [address] Performed By: #### 5 7021-8 #### [facility] CLIA [id number] [address] [place] [address] [place] MCHC (RBC) [Mass/Vol] 33.8 g/dL Normal 30.5-36.0 [facility] Comment on above: Order Comment: Speci men Type: BLOOD SPECIMEN Ordering Facility: [facility] Address: [address] [place] [address] Performed By: #### 5 7021-8 #### [facility] CLIA [id number] [address] [place] [address] [place] MCV (RBC) [Entitic vol] 81.0 fL Normal 80.0-100.[address] [facility] Comment on above: Order Comment: Speci men Type: BLOOD SPECIMEN Ordering Facility: [facility] Address: [address] [place] [address] Performed By: #### 5 7021-8 #### [facility] CLIA [id number] [address] [place] [address] [place] Monocytes (Bld) [#/Vol] 0.48 10*3/uL Normal <0.[address] [facility] Comment on above: Order Comment: Speci men Type: BLOOD SPECIMEN Ordering Facility: [facility] Address: [address] [place] [address] Performed By: #### 5 7021-8 #### [facility] CLIA [id number] [address] [place] [address] [place] Monocytes/100 WBC (Bld) 8.5 % Normal [facility] Comment on above: Order Comment: Speci men Type: BLOOD SPECIMEN Ordering Facility: [facility] Address: [address] [place], [place] [address] Performed By: #### 5 7021-8 #### [facility] CLIA [id number] [address] [place] [address] [place] Neutrophils (Bld) [#/Vol] 3.65 10*3/uL Normal 1.45-7.[address] [facility] Comment on above: Order Comment: Speci men Type: BLOOD SPECIMEN Ordering Facility: [facility] Address: [address] [place] [address] Performed By: #### 5 7021-8 #### [facility] CLIA [id number] [address] [place] [address] [place] Neutrophils/100 WBC (Bld) 64.7 % Normal [facility] Comment on above: Order Comment: Speci men Type: BLOOD SPECIMEN Ordering Facility: [facility] Address: [address] [place] [address] Performed By: #### 5 7021-8 #### [facility] CLIA [id number] [address] [place] [address] [place] Nucleated RBC (Bld) [#/Vol] 10*3/uL Normal <0.[address] [facility] Comment on above: Order Comment: Speci men Type: BLOOD SPECIMEN Ordering Facility: [facility] Address: [address] [place] [address] Performed By: #### 5 7021-8 #### [facility] CLIA [id number] [address] [place] [address] [place] Nucleated RBC/100 WBC (Bld) [Ratio] 0.0 /100 WBC Normal [facility] Comment on above: Order Comment: Speci men Type: BLOOD SPECIMEN Ordering Facility: [facility] Address: [address] [place], [place] [address] Performed By: #### 5 7021-8 #### [facility] CLIA [id number] [address] [place] [address] [place] Platelet mean volume (Bld) [Entitic vol] 10.1 fL Normal 9.0-12.[address] [facility] Comment on above: Order Comment: Speci men Type: BLOOD SPECIMEN Ordering Facility: [facility] Address: [address] [place] [address] Performed By: #### 5 7021-8 #### [facility] CLIA [id number] [address] [place] [address] [place] Platelets (Bld) [#/Vol] 209 10*3/uL Normal 150-[address] [facility] Comment on above: Order Comment: Speci men Type: BLOOD SPECIMEN Ordering Facility: [facility] Address: [address] [place] [address] Performed By: #### 5 7021-8 #### [facility] CLIA [id number] [address] [place] [address] [place] RBC (Bld) [#/Vol] 4.83 10*6/uL Normal 3.90-5.20 [facility] Comment on above: Order Comment: Speci men Type: BLOOD SPECIMEN Ordering Facility: [facility] Address: [address] [place] [address] Performed By: #### 5 7021-8 #### [facility] CLIA [id number] [address] [place] [address] [place] WBC (Bld) [#/Vol] 5.64 10*3/uL Normal 3.70-11.00 [facility] Comment on above: Order Comment: Speci men Type: BLOOD SPECIMEN Ordering Facility: [facility] Address: [address] [place] [address] Performed By: #### 5 7021-8 #### [facility] CLIA [id number] [address] [place] [address] [place] CNOVSPon 07-01-2024 CNOVSP Visit (SP) Office (H EMAWS) -- LIBIA OLIVAS ([id number]) 1975 F Date Time Provider Department 07/01/24 [...] since hadn't had in a year) at [facility] and incidental leukocytosis with WBC count 135.68K. Hgb and platelets normal. Recheck at [facility] 07/21/2022 revealed total white count 131.8 [...] starting Scemblix. Plain film was done at [facility] indicating disc space narrowing at L4-L5 [...] (more content not included)... Normal [facility] Lipase SerPl-cCncon 07-02-19 25 Lipase [Catalytic activity/Vol] 13 U/L Low 16-[address] [facility] Comment on above: Order Comment: Speci men Type: BLOOD SPECIMENOrdering Facility: [facility] Address: [address] [place] [address] Performed By: #### 3 040-3 ####[facility] [id number] [address] [place] CNPNon 06-26-2024 CNPN Telephone (PATRICK) -- LIBIA OLIVAS ([id number]) 1975 F Date Time Provider Department 06/26/24 ESHA READ During your visit today, we recorded the following information about you: Esha Read 06/26/2024 2:22 PM Signed Called patient to review XR of spine. Recommend MRI lumbar to further evaluate. Should also get in to see ortho. Pt is agreeable. Will need imaging at [facility]. PSR: Can you please fax orders and get her set up to have MRI lumbar at [facility] please? Referral placed to ORTHO also at [facility]. Esha Read APRN.Mode Clark 06/26/2024 3:51 PM Signed Referrals have been faxed to [facility], confirmation scanned into docs. Mode Moss Allergies As of Date: 06/26/2024 Noted Allergy Reaction IV DYE (IODINATED CONTRAST MEDIA) 07/25/2022 4 - Hives 7 - Swelling NUBAIN (NALBUPHINE HCL) 05/23/2015 11 - Vomiting Date Reviewed: 06/18/2024 Reviewed by: Esha Read - Fully Assessed Primary Visit Diagnosis:Spinal stenosis of lumbar region, unspecified whether neurogenic claudication present [M48.061] Order(s):MRI LUMBAR SPINE WO IVCON [[id number]] Order #: [id number] FUTURE CONSULT TO ORTHOPAEDICS [9026] Order #: [id number]: 1 FUTURE Prescriptions as of 06/26/2024 - [...] MODE MOSS on 06/26/[address] [facility] CBC W Auto Differential pane l (Bld)on 06-18-2024 Basophils (Bld) [#/Vol] 0.06 10*3/uL Normal <0.[address] [facility] Comment on above: Order Comment: Speci men Type: BLOOD SPECIMEN Ordering Facility: [facility] Address: [address] [place] [address] Performed By: #### 5 7021-8 #### [facility] CLIA [id number] [address] [place] [address] [place] Basophils/100 WBC (Bld) 0.8 % Normal [facility] Comment on above: Order Comment: Speci men Type: BLOOD SPECIMEN Ordering Facility: [facility] Address: [address] [place] [address] Performed By: #### 5 7021-8 #### [facility] CLIA [id number] [address] [place] [address] [place] Differential cell count method Nom (Bld) Auto Normal [facility] Comment on above: Order Comment: Speci men Type: BLOOD SPECIMEN Ordering Facility: [facility] Address: [address] [place] [address] Performed By: #### 5 7021-8 #### [facility] CLIA [id number] [address] [place] [address] [place] Eosinophils (Bld) [#/Vol] 0.18 10*3/uL Normal <0.[address] [facility] Comment on above: Order Comment: Speci men Type: BLOOD SPECIMEN Ordering Facility: [facility] Address: [address] [place] [address] Performed By: #### 5 7021-8 #### [facility] CLIA [id number] [address] [place] [address] [place] Eosinophils/100 WBC (Bld) 2.3 % Normal [facility] Comment on above: Order Comment: Speci men Type: BLOOD SPECIMEN Ordering Facility: [facility] Address: [address] [place] [address] Performed By: #### 5 7021-8 #### [facility] CLIA [id number] [address] [place] [address] [place] Erythrocyte distribution width (RBC) [Ratio] 13.0 % Normal 11.5-15.[address] [facility] Comment on above: Order Comment: Speci men Type: BLOOD SPECIMEN Ordering Facility: [facility] Address: [address] [place] [address] Performed By: #### 5 7021-8 #### [facility] [id number] [address] [place] [address] [place] Hematocrit (Bld) [Volume fraction] 36.0 % Normal 36.0-46.[address] [facility] Comment on above: Order Comment: Speci men Type: BLOOD SPECIMEN Ordering Facility: [facility] Address: [address] [place] [address] Performed By: #### 5 7021-8 #### [facility] [id number] [address] [place] [address] [place] Hemoglobin (Bld) [Mass/Vol] 12.4 g/dL Normal 11.5-15.[address] [facility] Comment on above: Order Comment: Speci men Type: BLOOD SPECIMEN Ordering Facility: [facility] Address: [address] [place] [address] Performed By: #### 5 7021-8 #### [facility] [id number] [address] [place] [address] [place] Immature granulocytes (Bld) [#/Vol] 0.05 10*3/uL Normal <0.[address] [facility] Comment on above: Order Comment: Speci men Type: BLOOD SPECIMEN Ordering Facility: [facility] Address: [address] [place] [address] Performed By: #### 5 7021-8 #### [facility] CLIA [id number] [address] [place] [address] [place] Immature granulocytes/100 WBC (Bld) 0.6 % Normal [facility] Comment on above: Order Comment: Speci men Type: BLOOD SPECIMEN Ordering Facility: [facility] Address: [address] [place] [address] Performed By: #### 5 7021-8 #### [facility] CLIA [id number] [address] [place] [address] [place] Lymphocytes (Bld) [#/Vol] 1.50 10*3/uL Normal 1.00-4.[address] [facility] Comment on above: Order Comment: Speci men Type: BLOOD SPECIMEN Ordering Facility: [facility] Address: [address] [place] [address] Performed By: #### 5 7021-8 #### [facility] CLIA [id number] [address] [place] [address] [place] Lymphocytes/100 WBC (Bld) 18.9 % Normal [facility] Comment on above: Order Comment: Speci men Type: BLOOD SPECIMEN Ordering Facility: [facility] Address: [address] [place] [address] Performed By: #### 5 7021-8 #### [facility] CLIA [id number] [address] [place] [address] [place] MCH (RBC) [Entitic mass] 28.1 pg Normal 26.0-34.[address] [facility] Comment on above: Order Comment: Speci men Type: BLOOD SPECIMEN Ordering Facility: [facility] Address: [address] [place] [address] Performed By: #### 5 7021-8 #### [facility] CLIA [id number] [address] [place] [address] [place] MCHC (RBC) [Mass/Vol] 34.4 g/dL Normal 30.5-36.0 [facility] Comment on above: Order Comment: Speci men Type: BLOOD SPECIMEN Ordering Facility: [facility] Address: [address] [place] [address] Performed By: #### 5 7021-8 #### [facility] CLIA [id number] [address] [place] [address] [place] MCV (RBC) [Entitic vol] 81.6 fL Normal 80.0-100.[address] [facility] Comment on above: Order Comment: Speci men Type: BLOOD SPECIMEN Ordering Facility: [facility] Address: [address] [place] [address] Performed By: #### 5 7021-8 #### [facility] CLIA [id number] [address] [place] [address] [place] Monocytes (Bld) [#/Vol] 0.47 10*3/uL Normal <0.[address] [facility] Comment on above: Order Comment: Speci men Type: BLOOD SPECIMEN Ordering Facility: [facility] Address: [address] [place] [address] Performed By: #### 5 7021-8 #### [facility] CLIA [id number] [address] [place] [address] [place] Monocytes/100 WBC (Bld) 5.9 % Normal [facility] Comment on above: Order Comment: Speci men Type: BLOOD SPECIMEN Ordering Facility: [facility] Address: [address] [place] [address] Performed By: #### 5 7021-8 #### [facility] CLIA [id number] [address] [place] [address] [place] Neutrophils (Bld) [#/Vol] 5.66 10*3/uL Normal 1.45-7.[address] [facility] Comment on above: Order Comment: Speci men Type: BLOOD SPECIMEN Ordering Facility: [facility] Address: [address] [place] [address] Performed By: #### 5 7021-8 #### [facility] CLIA [id number] [address] [place] [address] [place] Neutrophils/100 WBC (Bld) 71.5 % Normal [facility] Comment on above: Order Comment: Speci men Type: BLOOD SPECIMEN Ordering Facility: [facility] Address: [address] [place] [address] Performed By: #### 5 7021-8 #### [facility] CLIA [id number] [address] [place] [address] [place] Nucleated RBC (Bld) [#/Vol] 10*3/uL Normal <0.[address] [facility] Comment on above: Order Comment: Speci men Type: BLOOD SPECIMEN Ordering Facility: [facility] Address: [address] [place] [address] Performed By: #### 5 7021-8 #### [facility] CLIA [id number] [address] [place] [address] [place] Nucleated RBC/100 WBC (Bld) [Ratio] 0.0 /100 WBC Normal [facility] Comment on above: Order Comment: Speci men Type: BLOOD SPECIMEN Ordering Facility: [facility] Address: [address] [place] [address] Performed By: #### 5 7021-8 #### [facility] CLIA [id number] [address] [place] [address] [place] Platelet mean volume (Bld) [Entitic vol] 10.5 fL Normal 9.0-12.[address] [facility] Comment on above: Order Comment: Speci men Type: BLOOD SPECIMEN Ordering Facility: [facility] Address: [address] [place] [address] Performed By: #### 5 7021-8 #### [facility] CLIA [id number] [address] [place] [address] [place] Platelets (Bld) [#/Vol] 240 10*3/uL Normal 150-[address] [facility] Comment on above: Order Comment: Speci men Type: BLOOD SPECIMEN Ordering Facility: [facility] Address: [address] [place], [place] [id number] Performed By: #### 5 7021-8 #### [facility] CLIA [id number] [address] [place] [address] [place] RBC (Bld) [#/Vol] 4.41 10*6/uL Normal 3.90-5.20 [facility] Comment on above: Order Comment: Speci men Type: BLOOD SPECIMEN Ordering Facility: [facility] Address: [address] [place], [place] [address] Performed By: #### 5 7021-8 #### [facility] CLIA [id number] [address] [place] [address] [place] WBC (Bld) [#/Vol] 7.92 10*3/uL Normal 3.70-11.00 [facility] Comment on above: Order Comment: Speci men Type: BLOOD SPECIMEN Ordering Facility: [facility] Address: [address] [place], [place] [address] Performed By: #### 5 7021-8 #### [facility] CLIA [id number] [address] [place] [address] [place] CNOVSPon 06-18-2024 CNOVSP [facility] REMYLIBIA ([id number]) 1975 F Date Time Provider Department 06/18/24 10:30 AM ESHA READ PATRICK During your visit today, we recorded the [...] since hadn't had in a year) at [facility] and incidental leukocytosis with WBC count 135.68K. Hgb and platelets normal. Recheck at [facility] 07/21/2022 revealed total white count 131.8 [...] symptom for her. -She was rotated to [facility] so she can resume PPI. Started about [...] plan for xray to be done at [facility] - also recommended establishing with ortho for chronic spinal issues. - follow up pending XR, otherwise keep future appts as scheduled Esha Read APRN.STUDY SPECIALIST I spent (more content not included)... Normal [facility] Lipase SerPl-cCncon 06-19-19 25 Lipase [Catalytic activity/Vol] 15 U/L Low 16-[address] [facility] Comment on above: Order Comment: Speci men Type: BLOOD SPECIMENOrdering Facility: [facility] Address: [address] [place] [address] Performed By: #### 3 040-3 ####[facility] LAB[facility] [id number] [place] [address] [place] Lumbar Spine 2 or 3 Viewson 06-18-2024 Lumbar Spine 2 or 3 Views [facility] Imaging Services [address] [place] [phone] Lumbar Spine 2 or 3 Views MR#: [id number] Acct: [id number] Name: LIBIA OLIVAS FRIDA Rep #: [id number] : 1975 F 49 From: Jana Emerson PCP: Dr. Krystina Calle, DO Status: REG CLI Study: Lumbar Spine 2 or 3 Views Date of Exam: Exam# [id number] Ordering Dr: Toño Brandon o. PROCEDURE: LUMBAR [...] and abnormal plain film findings. Reading Location: [id number] CC: ESHA READ; Dr. Krystina Calle DO Software Program Manager: Signed Normal [facility] Lipaseon 06-15-2024 Lipase [Catalytic activity/Vol] 18 U/L Normal 13-75 [facility] Comment on above: Result Comment: Guanakito helms note: LIPASE revised reference range effective 22. New Lipase methodology. Expected to produce lower values than the previous assay method. NEW Reference Range: 13 - 75 U/L Performed By: #### L 501.2450 #### [facility] Laboratory [facility] [place], [address] Lipase measurementOrdered By : Fabiano Liz on 06-15-2024 Lipase [Catalytic activity/Vol] 18 U/L 13-75 [facility] Comment on above: Please note:LIPASE r evised reference range effective 22. New Lipase methodology. Expected to produce lower values than the previous assay method. NEW Reference Range: 13 - 75 U/L CNPChristina 06-12-2024 CNPN Telephone (HEMAWS) -- LIBIA OLIVAS ([id number]) 1975 F Date Time Provider Department 06/12/24 LIGIA MTZ PATRICK During your visit today, we recorded the following information about you: Ligia Mtz RN 06/12/2024 1:32 PM Signed ORAL ANTI-CANCER AGENTS FOLLOW-UP PHONE CALL/VISIT Called patient, no answer, left a VM requesting a call back from patient. WENDEI To Amber, RN 06/15/2024 11:15 AM Signed [...] obtain plain film x-rays and schedule an JAVASCRIPT UI DEVELOPER visit. DO Bibi Rodriguez Amber, RN 06/15/2024 11:46 AM Signed Patient would like to have lab checked at [facility]. Order faxed. Patient informed of Dr. Liz's response and stated understanding. WENDIE To Amber, RN 06/15/2024 4:14 PM Addendum Copied from [facility]: LIPASE 18 13-75 U/L Please note: LIPASE revised reference range effective 22. New Lipase methodology. Expected to produce lower values than the previous assay method. NEW Reference Range: 13 - 75 U/L WENDIE To Paul A, DO 06/15/2024 4:55 PM Signed That's good. Can we set up OV with JAVASCRIPT UI DEVELOPER to assess back pain further? Fabiano Liz DO Paulaletty Judith Yeboah 06/15/2024 5:04 PM Addendum I called and spoke to Libia and schedule her to see Esha Read on 06/18/24 she was schedule already that day for blood pressure check Patient confirmed this date and time Judith Leilani Pss Allergies As of Date: 06/12/2024 Noted Allergy Reaction IV DYE (IODINATED CONTRAST MEDIA) 07/25/2022 4 - Hives 7 - Swelling NUBAIN (NALBUPHINE HCL) 05/23/2015 11 - Vomiting Date Reviewed: 0 (more content not included)... Normal 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 CNOVSPon 04-27-2024 CNOVSP Visit (SP) Office (H EMAWS) -- LIBIA OLIVAS ([id number]) 1975 F Date Time Provider Department 04/27/24 [...] since hadn't had in a year) at [facility] and incidental leukocytosis with WBC count 135.68K. Hgb and platelets normal. Recheck at [facility] 07/21/2022 revealed total white count 131.8 [...] Fabiano Liz DO Referring Provider: FABIANO LIZ [[id number]] Allergies As of Date: 04/27/2024 (more content not included)... Normal [facility] BCR/ABL1 P210 %IS PANELon BCR/ABL1 P210 %IS 0.01 Normal [facility] Comment on above: Order Comment: Kaitlin shafer Type: BLOOD SPECIMENOrdering Facility: [facility] Address: [address] [place], [place] [address] Performed By: #### 2 10ISBP ####[facility] LABCLIA [id number] [place] [address] [place]#### P210P ####[facility] LIMSCLIA [id number] [place] [address] [place] BCR/ABL1 P210 MR 4 Normal [facility] Comment on above: Order Comment: Speci men Type: BLOOD SPECIMENOrdering Facility: [facility] Address: [address] [place] [address] Performed By: #### 2 10ISBP ####[facility] LABCLIA [id number] [address] [place]#### P210P ####[facility] LIMSCLIA [id number] [address] [place] BCR/ABL1 P210 QUANTITATIVE P CR BLOODon 04-20-2024 BCR/ABL1 P210 INTERPRETATION Normal [facility] Comment on above: Order Comment: Speci men Type: BLOOD SPECIMENOrdering Facility: [facility] Address: [address] [place] [address] Result Comment: BCR/ ABL1 p210 Quantitative PCR Laboratory Accession Number: [id number] Result: DETECTED MR: 4 %IS: 0.01 Interpretation: p210 BCR/ABL1 transcripts were detected. Quantitative results are expressed on the International Scale (IS) and a log molecular response (MR) is calculated. On this scale, a value of less than or equal to 0.1% corresponds to a major molecular response (MMR or MR3.0). Methodology: The Kanga QuantideX BCR/ABL IS assay is an FDA-cleared [...] Aaron Garcia MD Performed By: #### 2 10ISBP ####[facility] LABCLIA [id number] [place] [address] [place]#### P210P ####[facility] LIMSCLIA [id number] [place] [address] [place] CBC W Auto Differential pane l (Bld)on 04-20-2024 Basophils (Bld) [#/Vol] 0.04 10*3/uL Normal <0.[address] [facility] Comment on above: Order Comment: Speci men Type: BLOOD SPECIMENOrdering Facility: [facility] Address: [address] [place] [address] Performed By: #### 5 7021-8 ####[facility] [id number] [place] [address] [place] Basophils/100 WBC (Bld) 0.6 % Normal [facility] Comment on above: Order Comment: Speci men Type: BLOOD SPECIMENOrdering Facility: [facility] Address: [address] [place] [address] Performed By: #### 5 7021-8 ####[facility] [id number] [place] [address] [place] Differential cell count method Nom (Bld) Auto Normal [facility] Comment on above: Order Comment: Speci men Type: BLOOD SPECIMENOrdering Facility: [facility] Address: [address] [place] [address] Performed By: #### 5 7021-8 ####[facility] [id number] [place] [address] [place] Eosinophils (Bld) [#/Vol] 0.25 10*3/uL Normal <0.[address] [facility] Comment on above: Order Comment: Speci men Type: BLOOD SPECIMENOrdering Facility: [facility] Address: [address] [place] [address] Performed By: #### 5 7021-8 ####[facility] DEEJAYWNCLIA [id number] [place] [address] [place] Eosinophils/100 WBC (Bld) 3.5 % Normal [facility] Comment on above: Order Comment: Speci men Type: BLOOD SPECIMENOrdering Facility: [facility] Address: [address] [place] [address] Performed By: #### 5 7021-8 ####[facility] [id number] [place] [address] [place] Erythrocyte distribution width (RBC) [Ratio] 13.8 % Normal 11.5-15.[address] [facility] Comment on above: Order Comment: Speci men Type: BLOOD SPECIMENOrdering Facility: [facility] Address: [address] [place] [address] Performed By: #### 5 7021-8 ####[facility] [id number] [place] [address] [place] Hematocrit (Bld) [Volume fraction] 37.1 % Normal 36.0-46.[address] [facility] Comment on above: Order Comment: Speci men Type: BLOOD SPECIMENOrdering Facility: [facility] Address: [address] [place] [address] Performed By: #### 5 7021-8 ####[facility] [id number] [place] [address] [place] Hemoglobin (Bld) [Mass/Vol] 12.4 g/dL Normal 11.5-15.[address] [facility] Comment on above: Order Comment: Speci men Type: BLOOD SPECIMENOrdering Facility: [facility] Address: [address] [place] [address] Performed By: #### 5 7021-8 ####[facility] [id number] [place] [address] [place] Immature granulocytes (Bld) [#/Vol] 10*3/uL Normal <0.[address] [facility] Comment on above: Order Comment: Speci men Type: BLOOD SPECIMENOrdering Facility: [facility] Address: [address] [place] [address] Performed By: #### 5 7021-8 ####[facility] MILLWNCLIA [id number] [place] [address] [place] Immature granulocytes/100 WBC (Bld) 0.1 % Normal [facility] Comment on above: Order Comment: Speci men Type: BLOOD SPECIMENOrdering Facility: [facility] Address: [address] [place] [address] Performed By: #### 5 7021-8 ####[facility] [id number] [place] [address] [place] Lymphocytes (Bld) [#/Vol] 1.47 10*3/uL Normal 1.00-4.[address] [facility] Comment on above: Order Comment: Speci men Type: BLOOD SPECIMENOrdering Facility: [facility] Address: [address] [place] [address] Performed By: #### 5 7021-8 ####[facility] COMPANYLIA [id number] [place] [address] [place] Lymphocytes/100 WBC (Bld) 20.9 % Normal [facility] Comment on above: Order Comment: Speci men Type: BLOOD SPECIMENOrdering Facility: [facility] Address: [address] [place] [address] Performed By: #### 5 7021-8 ####[facility] [id number] [place] [address] [place] MCH (RBC) [Entitic mass] 27.7 pg Normal 26.0-34.[address] [facility] Comment on above: Order Comment: Speci men Type: BLOOD SPECIMENOrdering Facility: [facility] Address: [address] [place] [address] Performed By: #### 5 7021-8 ####[facility] AVELINO GAYLENCLETICIA [id number] [place] [address] [place] MCHC (RBC) [Mass/Vol] 33.4 g/dL Normal 30.5-36.0 [facility] Comment on above: Order Comment: Speci men Type: BLOOD SPECIMENOrdering Facility: [facility] Address: [address] [place] [address] Performed By: #### 5 7021-8 ####[facility] [id number] [place] [address] [place] MCV (RBC) [Entitic vol] 83.0 fL Normal 80.0-100.[address] [facility] Comment on above: Order Comment: Speci men Type: BLOOD SPECIMENOrdering Facility: [facility] Address: [address] [place] [address] Performed By: #### 5 7021-8 ####[facility] [id number] [place] [address] [place] Monocytes (Bld) [#/Vol] 0.38 10*3/uL Normal <0.[address] [facility] Comment on above: Order Comment: Speci men Type: BLOOD SPECIMENOrdering Facility: [facility] Address: [address] [place] [address] Performed By: #### 5 7021-8 ####[facility]CA [id number] [address] [place] Monocytes/100 WBC (Bld) 5.4 % Normal [facility] Comment on above: Order Comment: Speci men Type: BLOOD SPECIMENOrdering Facility: [facility] Address: [address] [place] [address] Performed By: #### 5 7021-8 ####[facility] MILLTOWNCLIA [id number] [place] [address] [place] Neutrophils (Bld) [#/Vol] 4.90 10*3/uL Normal 1.45-7.[address] [facility] Comment on above: Order Comment: Speci men Type: BLOOD SPECIMENOrdering Facility: [facility] Address: [address] [place] [address] Performed By: #### 5 7021-8 ####[facility]CL[facility] [id number] [place] [address] [place] Neutrophils/100 WBC (Bld) 69.5 % Normal [facility] Comment on above: Order Comment: Speci men Type: BLOOD SPECIMENOrdering Facility: [facility] Address: [address] [place] [address] Performed By: #### 5 7021-8 ####[facility] COMPANYLIA [id number] [place] [address] [place] Nucleated RBC (Bld) [#/Vol] 10*3/uL Normal <0.[address] [facility] Comment on above: Order Comment: Speci men Type: BLOOD SPECIMENOrdering Facility: [facility] Address: [address] [place] [address] Performed By: #### 5 7021-8 ####[facility] RIVERSIDEWNCLIA [id number] [place] [address] [place] Nucleated RBC/100 WBC (Bld) [Ratio] 0.0 /100 WBC Normal [facility] Comment on above: Order Comment: Speci men Type: BLOOD SPECIMENOrdering Facility: [facility] Address: [address] [place] [address] Performed By: #### 5 7021-8 ####[facility] COMPANYLIA [id number] [place] [address] [place] Platelet mean volume (Bld) [Entitic vol] 10.4 fL Normal 9.0-12.[address] [facility] Comment on above: Order Comment: Speci men Type: BLOOD SPECIMENOrdering Facility: [facility] Address: [address] [place] [address] Performed By: #### 5 7021-8 ####[facility] DEEJAYSTERLINGSABRINAA [id number] [place] [address] [place] Platelets (Bld) [#/Vol] 221 10*3/uL Normal 150-[address] [facility] Comment on above: Order Comment: Speci men Type: BLOOD SPECIMENOrdering Facility: [facility] Address: [address] [place] [address] Performed By: #### 5 7021-8 ####[facility] WOMENNCJOANA [id number] [place] [address] [place] RBC (Bld) [#/Vol] 4.47 10*6/uL Normal 3.90-5.20 [facility] Comment on above: Order Comment: Speci men Type: BLOOD SPECIMENOrdering Facility: [facility] Address: [address] [place] [address] Performed By: #### 5 7021-8 ####[facility]CL[facility] [id number] [place] [address] [place] WBC (Bld) [#/Vol] 7.05 10*3/uL Normal 3.70-11.00 [facility] Comment on above: Order Comment: Speci men Type: BLOOD SPECIMENOrdering Facility: [facility] Address: [address] [place] [address] Performed By: #### 5 7021-8 ####[facility]CLIA [id number] [place] [address] [place] Comprehensive metabolic 2000 panelon 04-20-2024 Albumin [Mass/Vol] 4.2 g/dL Normal 3.9-4.[address] [facility] Comment on above: Order Comment: Speci men Type: BLOOD SPECIMENOrdering Facility: [facility] Address: [address] [place] [address] Performed By: #### 2 777-1, 35950-8, 75497-9 ####[facility] AVELINO VILLALBATONYA [id number] [place] [address] [place] ALP [Catalytic activity/Vol] 75 U/L Normal 34-[address] [facility] Comment on above: Order Comment: Speci men Type: BLOOD SPECIMENOrdering Facility: [facility] Address: [address] [place] [address] Performed By: #### 2 777-1, 33348-7, 38243-7 ####[facility] RIVERSIDETESFAYE [id number] [place] [address] [place] ALT [Catalytic activity/Vol] 24 U/L Normal 7-[address] [facility] Comment on above: Order Comment: Speci men Type: BLOOD SPECIMENOrdering Facility: [facility] Address: [address] [place] [address] Performed By: #### 2 777-1, 59735-7, ####[facility] DEEJAYTONYA [id number] [place] [address] [place] Anion gap [Moles/Vol] 8 mmol/L Normal 8-15 [facility] Comment on above: Order Comment: Speci men Type: BLOOD SPECIMENOrdering Facility: [facility] Address: [address] [place] [address] Performed By: #### 2 777-1, 65371-9, 99845-5 ####[facility] DEEJAYHERMELINDONCLIA [id number] [place] [address] [place] AST [Catalytic activity/Vol] 11 U/L Low 13-[address] [facility] Comment on above: Order Comment: Speci men Type: BLOOD SPECIMENOrdering Facility: [facility] Address: [address] [place] [address] Performed By: #### 2 777-1, 61392-3, ####[facility] DEEJAYWNCLIA [id number] [place] [address] [place] Bilirubin [Mass/Vol] 0.3 mg/dL Normal 0.2-1.3 [facility] Comment on above: Order Comment: Speci men Type: BLOOD SPECIMENOrdering Facility: [facility] Address: [address] [place] [address] Performed By: #### 2 777-1, 53075-4, ####[facility] WOMENTINAA [id number] [place] [address] [place] Calcium [Mass/Vol] 8.8 mg/dL Normal 8.5-10.[address] [facility] Comment on above: Order Comment: Speci men Type: BLOOD SPECIMENOrdering Facility: [facility] Address: [address] [place] [address] Performed By: #### 2 777-1, , ####[facility] WOMENSABRINAA [id number] [place] [address] [place] Chloride [Moles/Vol] 109 mmol/L High 98-107 [facility] Comment on above: Order Comment: Speci men Type: BLOOD SPECIMENOrdering Facility: [facility] Address: [address] [place] [address] Performed By: #### 2 777-1, 91863-4, ####[facility] RIVERSIDEWNCLIA [id number] [place] [address] [place] CO2 [Moles/Vol] 25 mmol/L Normal 22-[address] [facility] Comment on above: Order Comment: Speci men Type: BLOOD SPECIMENOrdering Facility: [facility] Address: [address] [place] [address] Performed By: #### 2 777-1, , ####[facility] [id number] [place] [address] [place] Creatinine [Mass/Vol] 0.70 mg/dL Normal 0.58-0.96 [facility] Comment on above: Order Comment: Speci men Type: BLOOD SPECIMENOrdering Facility: [facility] Address: [address] [place] [address] Performed By: #### 2 777-1, , ####[facility] [id number] [place] [address] [place] Creatinine and Glomerular filtration rate.predicted panel (S/P/Bld) 108 mL/min/1.73m??? Normal >=[address] [facility] Comment on above: Order Comment: Kaitlin shafer Type: BLOOD SPECIMENOrdering Facility: [facility] Address: [address] [place] [address] Result Comment: Antoinette mated Glomerular Filtration Rate [...] reflect actual GFR. Performed By: #### 2 777-1, , ####[facility]ENNCA [id number] [place] [address] [place] Glucose [Mass/Vol] 97 mg/dL Normal 74-[address] [facility] Comment on above: Order Comment: Karenai men Type: BLOOD SPECIMENOrdering Facility: [facility] Address: [address] [place] [address] [place] [address] Result Comment: The [place] Diabetes Association (ADA) provides guidance for cutoff [...] Standards of Medical Care in Diabetes 2016, [place] [employer]. Diabetes Care. 2016.39(Suppl 1). Performed By: #### 2 777-1, , ####[facility] HOSPITALAron [id number] [place] [address] [place] Potassium [Moles/Vol] 3.7 mmol/L Normal 3.7-5.1 [facility] Comment on above: Order Comment: Speci men Type: BLOOD SPECIMENOrdering Facility: [facility] Address: [address] [place] [place] [id number] Performed By: #### 2 777-1, , ####[facility] [id number] [place] [address] [place] Protein [Mass/Vol] 6.1 g/dL Low 6.3-8.[address] [facility] Comment on above: Order Comment: Speci men Type: BLOOD SPECIMENOrdering Facility: [facility] Address: [address] [place] [address] Performed By: #### 2 777-1, , ####[facility] COMPANYLIAron [id number] [place] [address] [place] Sodium [Moles/Vol] 142 mmol/L Normal 136-[address] [facility] Comment on above: Order Comment: Speci men Type: BLOOD SPECIMENOrdering Facility: [facility] Address: [address] [place] [address] Performed By: #### 2 777-1, 04932-3, 41907-0 ####[facility] [id number] [place] [address] [place] Urea nitrogen [Mass/Vol] 11 mg/dL Normal 7-[address] [facility] Comment on above: Order Comment: Speci men Type: BLOOD SPECIMENOrdering Facility: [facility] [place] Address: [address] [place] [address] Performed By: #### 2 777-1, 82413-8, ####[facility] [id number] [place] [address] [place] Ferritin [facility] 2024 Ferritin [Mass/Vol] 169.0 ng/mL Normal 14.7-205.1 [facility] Comment on above: Order Comment: Speci men Type: BLOOD SPECIMENOrdering Facility: [facility] Address: [address] [place] [address] Performed By: #### 5 0190-8, 6-4 ####[facility] [id number] [place] [address] [place] Iron and Iron binding capaci panelon 04-20-2024 Iron [Mass/Vol] 55 ug/dL Normal 41-[address] [facility] Comment on above: Order Comment: Speci men Type: BLOOD SPECIMENOrdering Facility: [facility] Address: [address] [place] [address] Performed By: #### 5 0190-8, 6-4 ####[facility] [id number] [place] [address] [place] Iron binding capacity [Mass/Vol] 318 ug/dL Normal 232-[address] [facility] Comment on above: Order Comment: Speci men Type: BLOOD SPECIMENOrdering Facility: [facility] Address: [address] [place] [address] Performed By: #### 5 0190-8, 2276-4 ####[facility] [id number] [address] [address] [place] Iron/TIBC [Molar ratio] 17.3 % Normal 15.0-57.[address] [facility] Comment on above: Order Comment: Speci men Type: BLOOD SPECIMENOrdering Facility: [facility] Address: [address] [place] [address] Performed By: #### 5 0190-8, 2276-4 ####[facility] [id number] [place] [id number] [place] Magnesium [facility] 04-20 Magnesium [Mass/Vol] 2.0 mg/dL Normal 1.7-2.3 [facility] Comment on above: Order Comment: Speci men Type: BLOOD SPECIMENOrdering Facility: [facility] Address: [address] [place] [address] Performed By: #### 2 777-1, 81376-3, 48185-5 ####[facility] [id number] [place] [address] [place] Phosphate SerPl-mCncon 04-20 Phosphate [Mass/Vol] 2.9 mg/dL Normal 2.7-4.8 [facility] Comment on above: Order Comment: Speci men Type: BLOOD SPECIMENOrdering Facility: [facility] Address: [address] [place] [address] Performed By: #### 2 777-1, 29117-9, 74288-5 ####[facility] [id number] [place] [address] [place] Food Checker Office Visit Reporton 02-24-2024 Food Checker Office Visit Report [facility]'s [address], [address] [place] [address] OFFICE VISIT Date of Service: 02/24/24 MR#: [id number] Acct: [id number] Name: LIBIA OLIVAS Rep #: [id number] : [id number] Provider: Dr. 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 Normal [facility] COVID & INFLUENZA A/B & RSV NAAT, ROUTINEon 06-11-2023 FLUAV RNA ABBIE+probe Ql (Unsp spec) Detected Abnormal Not Detected [facility] FLUBV RNA ABBIE+probe Ql (Unsp spec) Not detected Not Detected [facility] RSV A RNA ABBIE+probe Ql (Unsp spec) Not detected Not Detected [facility] SARS-CoV-2 (COVID-19) RNA ABBIE+probe Ql (Resp) Not detected See comment [facility] No Panel Informationon 04-26 [facility] FERRITIN [facility] 10-23-2022 Ferritin [Mass/Vol] 109.0 ng/mL 14.7 - 205.1 ng/mL [facility] Iron and Iron binding capaci ty panelon 10-23-2022 Iron [Mass/Vol] 39 ug/dL Low 41 - 186 ug/dL [facility] Iron binding capacity [Mass/Vol] 325 ug/dL 232 - 386 ug/dL [facility] Iron/TIBC [Molar ratio] 12.0 % Low 15.0 - 57.0 % [facility] LIPASE Don 10-23-2022 Lipase [Catalytic activity/Vol] 38 U/L 16 - 61 U/L [facility] T4 FREE/FREE THYROXon 2022 Free T4 [Mass/Vol] 1.4 ng/dL 0.9 - 1.7 ng/dL [facility] TSH Don 10-23-2022 TSH Qn 0.762 m[IU]/L 0.270 - 4.200 mIU/L [facility] MAGNESIUM BLDon 10-22-2022 Magnesium [Mass/Vol] 2.2 mg/dL 1.7 - 2 .3 mg/dL [facility] PHOSPHORUS INORGANICon 10-22 Phosphate [Mass/Vol] 3.6 mg/dL 2.7 - 4 .8 mg/dL [facility] XR CHEST 2V FRONTAL/LATon [facility] XR CHEST 2V FRONTAL/LATon [facility] XR Chest PA and Lateralon IMPRESSION: Within normal limits. No acute radiographic abnormality. Software Program Manager: CHRISTINA Transcribe Date/Time: Aug 27 2022 5:37P Dictated by : LEN BONNER MD This examination was interpreted and the report reviewed and electronically signed by: LEN BONNER MD on Aug 27 2022 5:37PM [facility] DIVISION OF RADIOLOGY * * *Final Report* [...] the thoracic spine. DIVISION OF RADIOLOGY Provider, [facility] - 08/27/2022 * * *Final Report* * [...] Within normal limits. No acute radiographic abnormality. Software Program Manager: PSCB Transcribe Date/Time: Aug 27 2022 5:37P Dictated by : LEN BONNER MD This examination was interpreted and the report reviewed and electronically signed by: LEN BONNER MD on Aug 27 2022 5:37PM EST [facility] Radiology Study observation (narrative) [facility] XR Chest PA and LateralOrder ed By: Ccf Provider on 08-27-2022 [facility] BONE MARROW ANALYSISon 07-27 Case Report Bone Marrow Patholog y Report Case: [id number] Authorizing Provider: Fabiano Liz DO Collected: 07/25/2022 12:40 PM Ordering Location: Hematology/Oncology Received: 07/25/2022 02:43 PM Pathologist: Flora Rosas MD Specimens: A) - BONE MARROW ASPIRATE RIGHT POSTERIOR ILIAC CREST B) - BONE MARROW BIOPSY RIGHT POSTERIOR ILIAC CREST C) - BONE MARROW CLOT RIGHT POSTERIOR ILIAC CREST [facility] Diagnosis Comment The patient is a [...] pending cytogenetic and molecular studies is recommended. [facility] FINAL DIAGNOSIS A-C. Bone marrow, as pirate smear, touch imprint and core biopsy, with clot section: - Chronic myeloid leukemia. - Stainable iron is decreased. - See comment. / July 27, 2022 [facility] Gross Description A. BONE MARROW ASPIR [...] in one cassette. Gross examination performed at [facility], [facility] [place] [address] FFS 07/25/2022 7:59 PM [facility] Microscopic Description PERIPHERAL BLOOD: CBC (07/25/2022 11:07 AM) Diff: Manual WBC 134.09 k/uL Neutrophils % 63 Hemoglobin 11.9 g/dL Lymphocytes % 5 MCV 89.3 fL Monocytes % 6 RDW-CV 17.2 % Eosinophils % 0 Platelet Count 220 k/uL Basophils % 1 Other: 10% [place], 14% Myelo, 1% Blasts Morphology/Interpretation: A peripheral [...] cytometry: Performed. See associated flow cytometry report [id number]. Cytogenetics: Pending. FISH: Not performed. Molecular: Buffy coat stored. BCR::ABL1 quantitative PCR studies performed on the peripheral blood were positive, detecting high levels of BCR::ABL1 p210 fusion transcripts. [facility] Performing Lab Diagnostic interpret ation performed at [facility], [address] [id number] CLIA# [id number] Chisel Grinder: Jesus Sands M.D. [facility] FLOW CYTOMETRY BONE MARROW R Lillie 07-27-2022 Case Report Flow Cytometry Case: [id number] Authorizing Provider: Fabinao Liz DO Collected: 07/25/2022 01:17 PM Ordering Location: Hematology/Oncology Received: 07/26/2022 09:23 AM Pathologist: Flora Rosas MD Specimen: Bone Marrow [facility] Diagnosis Comment This assay is not de signed to detect minimal residual disease, plasma cell neoplasms, or myeloid antigen maturational patterns. This test was developed and its performance characteristics determined by [facility]'s [facility] Pathology and Laboratory Medicine [place] [facility] It has not been cleared or approved by the FDA. -[facility] is regulated under CLIA as qualified to perform high-complexity testing. This test is used for clinical purposes. It should not be regarded as investigational or for research. [facility] Gross Description A. Bone Marrow Received 8 mL bone marrow in sodium heparin. [facility] Interpretation There is no evidence of involvement by a lymphoproliferative disorder or abnormal blast population. There is a notable granulocytic predominance. Correlation with the clinical and bone marrow histopathologic findings is suggested. [facility] Performing Lab Diagnostic interpret ation performed at [facility], [address] [place], [place] [address]IA# [id number] Chisel Grinder: Jesus Sands M.D. [facility] Results Specimen type: Bone marrow aspirate Morphology comments: See associated bone marrow pathology report [id number]. Viability: 89% Flow Cytometry Bone Marrow Immunophenotyping [...] events. Blasts are not increased. SB/NZ 07/26/2022 [facility] FLOW CYTOMETRY BONE MARROW H OLD (BMHOLD)on 07-26-2022 Flow Cytometry Order Status See Results in chart under F case ID [facility] ACTIVATED PTTon 07-23-2022 aPTT Coag (PPP) [Time] 24.8 s 23.0 - 32.4 sec [facility] Comprehensive metabolic 2000 panelon 07-23-2022 Albumin [Mass/Vol] 4.7 g/dL 3.9 - 4.9 g/dL [facility] ALP [Catalytic activity/Vol] 92 U/L 34 - 123 U/L [facility] ALT [Catalytic activity/Vol] 38 U/L 7 - 38 U/L [facility] Anion gap [Moles/Vol] 13 mmol/L 9 - 18 mmol/L [facility] AST [Catalytic activity/Vol] 25 U/L 13 - 35 U/L [facility] Bilirubin [Mass/Vol] 0.4 mg/dL 0.2 - 1 .3 mg/dL [facility] Calcium [Mass/Vol] 9.1 mg/dL 8.5 - 10. 2 mg/dL [facility] Chloride [Moles/Vol] 105 mmol/L 97 - 10 5 mmol/L [facility] CO2 [Moles/Vol] 22 mmol/L 22 - 30 mmol/L [facility] Creatinine [Mass/Vol] 0.76 mg/dL 0.58 - 0.96 mg/dL [facility] Estimated Glomerular Filtration Rate 99 mL/min/1.73m >=60 mL/min/1.73 m [facility] Glucose [Mass/Vol] 92 mg/dL 74 - 99 mg/dL [facility] Potassium [Moles/Vol] 3.4 mmol/L Low 3.7 - 5.1 mmol/L [facility] Protein [Mass/Vol] 6.9 g/dL 6.3 - 8.0 g/dL [facility] Sodium [Moles/Vol] 140 mmol/L 136 - 144 mmol/L [facility] Urea nitrogen [Mass/Vol] 12 mg/dL 7 - 21 mg/dL [facility] LD LACTATE DEHYDROon 023 LDH [Catalytic activity/Vol] 771 U/L High 135 - 214 U/L [facility] PT panel Coag (PPP)on 2022 INR Coag (PPP) [Relative time] 1.0 {INR} 0.9 - 1.3 [facility] PT Coag (PPP) [Time] 10.0 s <13.1 sec [facility] RETIC COUNTon 07-23-2022 Reticulocytes (Bld) [#/Vol] 0.16897 10*3/uL High 0.018 - 0.100 M/uL [facility] Reticulocytes (Bld) [#/Vol]o n 07-23-2022 Reticulocytes/100 RBC (Bld) 3.4 % High 0.4 - 2.0 % [facility] URIC ACID BLOODon 07-23-2022 Urate [Mass/Vol] 8.7 mg/dL High 2.5 - 6.6 mg/dL [facility] Absolute lymphocyte countOrd ered By: Dr. Calle on 07-21-2022 Lymphocytes Auto (Unsp spec) [#/Vol] 7.91 10*3/uL 0.83-4.51 [facility] Basophil percentageOrdered B y: Dr. Calle on 07-21-2022 Basophil percentage Not Reportable [facility] Cholesterol [Mass/Vol] 141 mg/dL <200 [facility] Comment on above: <200 mg/dL Desirable 200-240 mg/dL Borderline >240 mg/dL High Risk Neutrophils (Bld) [#/Vol] 90.9 10*3/uL 2.0-7.7 [facility] Triglyceride [Mass/Vol] 300 mg/dL <199 [facility] Comment on above: The drugs N-Acetylcy steine and Metamizole may falsely depress this assay.Serum Triglycerides Reference Interval Normal <150 mg/dL Borderline high 150 - 199 mg/dL High 200 - 499 mg/dL Very High > or = 500 mg/dL WBC (Bld) [#/Vol] 131.8 10*3/uL 4.4-11.[address] [facility] Comment on above: CRITICAL VALUE VERIF IED. CALLED TO DR. CALLE07/21/22 09 Yanely Duran.RESULTS READ BACK BY SAME . Blood band neutrophil count as percentage of total leukocytesOrdered By: Dr. Calle on 07-21-2022 Band form neutrophils/100 WBC (Bld) 15 % 0-5 [facility] Blood blasts/100 leukocytesO rdered By: Dr. Calle on 07-21-2022 Blasts/100 WBC (Bld) 6 % 0-[address] [facility] Comment on above: RESULTS CALLED TO DR Briseyda CALLE 07/21/22 1042 Yanely Duran.REPORT READ BACK BY [].Previous reported result: 6 %Edited by: OSCAR on 07/21/22:1046 AMENDED REPORT 07/21/22 1046 BLAST previously reported as: 6 *H % Blood eosinophils/100 leukoc ytesOrdered By: Dr. Calle on 07-21-2022 Eosinophils/100 WBC (Bld) 3 % 0-5 [facility] Blood erythrocytes count (nu mber/volume)Ordered By: Dr. Calle on 07-21-2022 RBC (Bld) [#/Vol] 4.25 10*6/uL 4.2-5.4 [facility] Blood hemoglobin measurement (mass/volume)Ordered By: Dr. Calle on 07-21-2022 Hemoglobin (Bld) [Mass/Vol] 12.3 g/dL 12.0-15.0 [facility] Blood lymphocytes/100 leukoc ytesOrdered By: Dr. Calle on 07-21-2022 Lymphocytes/100 WBC (Bld) 6 % 19-41 [facility] Blood metamyelocytes/100 nancy kocytesOrdered By: Dr. Calle on 07-21-2022 Metamyelocytes/100 WBC (Bld) 6 % 0-1 [facility] Blood monocytes/100 leukocyt esOrdered By: Dr. Calle on 07-21-2022 Monocytes/100 WBC (Bld) 2 % 0-10 [facility] Blood platelet adequacy dete ction by light microscopyOrdered By: Dr. Calle on 07-21-2022 Platelets LM Ql (Bld) ADEQUATE ADEQ [facility] Blood platelet mean volumeOr dered By: Dr. Calle on 07-21-2022 Platelet mean volume (Bld) [Entitic vol] 10.2 fL 6.2-12.0 [facility] Blood promyelocytes/100 leuk ocytesOrdered By: Dr. Calle on 07-21-2022 Promyelocytes/100 WBC (Bld) 3 % 0-0 [facility] Blood segmented neutrophils/ [address]: [address] Calle on 07-21-2022 Segmented neutrophils/100 WBC (Bld) 54 % 47-70 [facility] Determination of erythrocyte mean corpuscular volume (MCV)Ordered By: Dr. Calle on 07-21-2022 MCV (RBC) [Entitic vol] 92.9 fL 81-99 [facility] Hematocrit Auto (Bld) [Volum e fraction]Ordered By: Dr. Calle on 07-21-2022 Hematocrit (Bld) [Volume fraction] 39.5 % 37-47 [facility] Laboratory - Hematology and Cell countsOrdered By: Dr. Calle on 07-21-2022 Erythrocyte distribution width (RBC) [Entitic vol] 59.3 fL 35.1-43.9 [facility] Erythrocyte distribution width (RBC) [Ratio] 17.4 % 11.6-14.6 [facility] MCH (RBC) [Entitic mass] 28.9 pg 27.0-32.0 [facility] Myelocytes/100 WBC (Bld) 5 % 0-0 [facility] MCHC Auto (RBC) [Mass/Vol]Or dered By: Dr. Calle on 07-21-2022 MCHC (RBC) [Mass/Vol] 31.1 g/dL 32-[address] [facility] Platelets bldOrdered By: Dr. Calle on 07-21-2022 Platelets (Bld) [#/Vol] 211 10*3/uL 150-450 [facility] RBC morphologyOrdered By: Dr Briseyda Calle on 07-21-2022 RBC morphology finding Nom (Bld) NORM C+C NORMAL NORM C&C [facility] Review by pathologistOrdered By: Dr. Calle on 07-21-2022 Pathologist review Martinez (Unsp spec) [Interp] Reviewed [facility] Comment on above: Previous reported re sult: July li Edited by: GUILLAUME on 07/24/22:0955Neutrophilic leukemoid reaction with left shift. Immature cells consistent with blasts.NRBCs are noted.Clinical correlation necessary.Erik Jarrett M.D. 07/24/22This case was reviewed with Dr. Torres who concurs with the above diagnosis.This case is discussed with Dr. Calle and Dr. Liz on 07/23/22. AMENDED REPORT 07/24/22 0955 PATH REV previously reported as: May foll Serum or plasma cholesterol in HDL measurement (mass/volume)Ordered By: Dr. Calle on 07-21-2022 Cholesterol in HDL [Mass/Vol] 24 mg/dL >40 [facility] Comment on above: The drugs N-Acetylcy steine and Metamizole may falsely depress this assay. Reference Range HDL <40 mg/dL Low HDL Cholesterol HDL >or= 60 mg/dL High HDL Cholesterol Serum or plasma cholesterol in VLDL measurement (mass/volume)Ordered By: Dr. Calle on 07-21-2022 Cholesterol in VLDL [Mass/Vol] 60 mg/dL 5-40 [facility] Serum or plasma low density lipoprotein (LDL) cholesterol measurement (mass/volume)Ordered By: Dr. Calle on 07-21-2022 Cholesterol in LDL [Mass/Vol] 57 mg/dL 0-130 [facility] Total cell countOrdered By: Dr. Calle on 07-21-2022 Cells counted Molgen (Bld/Tiss) [#] 100 MANUAL DIFF [facility] Basophil percentageOrdered B y: Dr. Mckeon on 06-16-2022 Cholesterol [Mass/Vol] 151 mg/dL <200 [facility] Comment on above: <200 mg/dL Desirable 200-240 mg/dL Borderline >240 mg/dL High Risk Glucose [Mass/Vol] 108 mg/dL 74-106 [facility] Comment on above: Fasting Glucose resu lt from 100 to 125 mg/dL suggests IMPAIRED HOMEOSTASIS per A.D.A. criteria. Triglyceride [Mass/Vol] 351 mg/dL <199 [facility] Comment on above: The drugs N-Acetylcy steine and Metamizole may falsely depress this assay.Serum Triglycerides Reference Interval Normal <150 mg/dL Borderline high 150 - 199 mg/dL High 200 - 499 mg/dL Very High > or = 500 mg/dL Serum or plasma calcitriol m easurement (mass/volume)Ordered By: Dr. Mckeon on 06-16-2022 1,25-dihydroxyvitamin D3 [Mass/Vol] 43.8 pg/mL 24.8-81.5 [facility] Comment on above: Performed at: [address] [id number] Director: Anette Johnson MD, Phone: [phone] Serum or plasma cholesterol in HDL measurement (mass/volume)Ordered By: Dr. Mckeon on 06-16-2022 Cholesterol in HDL [Mass/Vol] 23 mg/dL >40 [facility] Comment on above: The drugs N-Acetylcy steine and Metamizole may falsely depress this assay. Reference Range HDL <40 mg/dL Low HDL Cholesterol HDL >or= 60 mg/dL High HDL Cholesterol Serum or plasma cholesterol in VLDL measurement (mass/volume)Ordered By: Dr. Mckeon on 06-16-2022 Cholesterol in VLDL [Mass/Vol] 70 mg/dL 5-40 [facility] Serum or plasma low density lipoprotein (LDL) cholesterol measurement (mass/volume)Ordered By: Dr. Mckeon on 06-16-2022 Cholesterol in LDL [Mass/Vol] 58 mg/dL 0-130 [facility] Whole blood hemoglobin A1c/t otal hemoglobin ratio (mass fraction)Ordered By: Dr. Mckeon on 06-16-2022 HbA1c (Bld) [Mass fraction] 5.3 % 3.8-5.6 [facility] Comment on above: Normal < 5.7 % Predi abetic 5.7 - 6.4 % Diabetic >or= 6.5 % Please note range changes. Laboratory - Chemistry and C hemistry - challengeOrdered By: Dr. Mckeon on 03-01-2022 Free T4 [Mass/Vol] 1.20 ng/dL 0.76-1.46 [facility] No Panel InformationOrdered By: Dr. Mckeon on 03-01-2022 Free Triiodothyronine (T3) pg/dL 2.6 pg/mL 2.18-3.98 [facility] Thyroid Stimulating Hormone (TSH) 0.59 uIU/mL 0.358-3.74 [facility] Varicella-Zoster V Ab, IgGon 01-02-2022 Varicella-Zoster V Ab, IgG Assay performed using Diasorin CLIA methodology. VARICELLA ZOSTER IGG: Immune Testing Performed At: [facility] [address] [place] [address] Normal [facility] Comment on above: Performed By: #### V ARG #### [facility] (DEFAULT) [address] [place], [place] [address] Absolute lymphocyte counton 07-21-2021 Lymphocytes Auto (Unsp spec) [#/Vol] 1.49 10*3/uL 0.83-4.51 [facility] Work Phone: Basophil percentageon 2021 Basophils/100 WBC (Bld) 0.5 % 0-1 [facility] Work Phone: Bilirubin [Mass/Vol] 0.40 mg/dL 0.20-1.[address] [facility] Work Phone: Comment on above: For patients on eltr ombopag therapy, use of Dimension [place] TBIL is not recommended. Chloride [Moles/Vol] 112 mmol/L 98-[address] [facility] Work Phone: Eosinophils/100 WBC (Bld) 1.9 % 0-5 [facility] Work Phone: Glucose [Mass/Vol] 126 mg/dL 74-106 [facility] Work Phone: Comment on above: Fasting Glucose resu lt greater than or equal to 126 mg/dL suggests DIABETES MELLITUS per A.D.A. criteria. Neutrophils (Bld) [#/Vol] 5.3 10*3/uL 2.0-7.7 [facility] Work Phone: Neutrophils/100 WBC (Bld) 70.3 % 47-70 [facility] Work Phone: Potassium [Moles/Vol] 3.7 mmol/L 3.5-5.[address] [facility] Work Phone: Protein [Mass/Vol] 7.0 g/dL 6.4-8.2 [facility] Work Phone: Sodium [Moles/Vol] 141 mmol/L 136-145 [facility] Work Phone: WBC (Bld) [#/Vol] 7.5 10*3/uL 4.4-11.0 [facility] Work Phone: Blood erythrocytes count (nu mber/volume)on 07-21-2021 RBC (Bld) [#/Vol] 5.06 10*6/uL 4.2-5.4 [facility] Work Phone: Blood hemoglobin measurement (mass/volume)on 07-21-2021 Hemoglobin (Bld) [Mass/Vol] 13.7 g/dL 12.0-15.0 [facility] Work Phone: Blood lymphocytes/100 leukoc yteson 07-21-2021 Lymphocytes/100 WBC (Bld) 19.9 % 19-41 [facility] Work Phone: Blood monocytes/100 leukocyt eson 07-21-2021 Monocytes/100 WBC (Bld) 6.7 % 0-10 [facility] Work Phone: Blood platelet mean volumeon 07-21-2021 Platelet mean volume (Bld) [Entitic vol] 10.2 fL 6.2-12.0 [facility] Work Phone: Determination of erythrocyte mean corpuscular volume (MCV)on 07-21-2021 MCV (RBC) [Entitic vol] 83.2 fL 81-99 [facility] Work Phone: Hematocrit Auto (Bld) [Volum e fraction]on 07-21-2021 Hematocrit (Bld) [Volume fraction] 42.1 % 37-47 [facility] Work Phone: Laboratory - Chemistry and C hemistry - challengeon 07-21-2021 ALP [Catalytic activity/Vol] 84 U/L 45-117 [facility] Work Phone: ALT [Catalytic activity/Vol] 56 U/L 13-56 [facility] Work Phone: CO2 [Moles/Vol] 24.0 mmol/L 21.0-32.0 [facility] Work Phone: Free T4 [Mass/Vol] 1.01 ng/dL 0.76-1.46 [facility] Work Phone: Globulin (S) [Mass/Vol] 3.6 g/dL 2.2-4.2 [facility] Work Phone: Urea nitrogen/Creatinine [Mass ratio] 17.6 mg/mg 10-20 [facility] Work Phone: Laboratory - Hematology and Cell countson 07-21-2021 Erythrocyte distribution width (RBC) [Entitic vol] 40.0 fL 35.1-43.9 [facility] Work Phone: Erythrocyte distribution width (RBC) [Ratio] 13.2 % 11.6-14.6 [facility] Work Phone: Immature granulocytes/100 WBC (Bld) 0.700 % 0.0-0.9 [facility] Work Phone: Comment on above: IG% - Immature Granu locytes (promyelocytes, myelocytes and metamyelocytes) > 1% indicates that a LEFT SHIFT is Present. MCH (RBC) [Entitic mass] 27.1 pg 27.0-32.0 [facility] Work Phone: Nucleated RBC/100 WBC (Bld) [Ratio] 0 % 0-5 [facility] Work Phone: MCHC Auto (RBC) [Mass/Vol]on 07-21-2021 MCHC (RBC) [Mass/Vol] 32.5 g/dL 32-36 [facility] Work Phone: No Panel Informationon 07-21 CA 125 Antigen 22.3 U/mL [facility] Work Phone: Comment on above: [facility] El ectrochemiluminescence Immunoassay(ECLIA)Values obtained with different assay methods or kits cannotbe used interchangeably. Results cannot be interpreted asabsolute evidence of the presence or absence of malignantdisease. Estimated GFR (MDRD) Amer 120 mL/min >60 [facility] Work Phone: Comment on above: GFR Calc Estimated GFR (MDRD) Non-Af Amer 100 mL/min >60 [facility] Work Phone: Comment on above: Non- GFR Calc Free Triiodothyronine (T3) pg/dL 2.1 pg/mL 2.18-3.98 [facility] Work Phone: Thyroid Stimulating Hormone (TSH) 1.18 uIU/mL 0.358-3.74 [facility] Work Phone: Platelets bldon 07-21-2021 Platelets (Bld) [#/Vol] 287 10*3/uL 150-450 [facility] Work Phone: Serum Helicobacter pylori Ig G antibody assay (units/volume)on 07-21-2021 H. pylori IgG Qn (S) 0.[address] [facility] Work Phone: Comment on above: Result Units: Index Value Negative <0.80 Equivocal 0.80 - 0.89 Positive >0.89Performed at: [facility] [place] [id number] Director: Raffaele Barrera PhD, Phone: [phone] Serum or plasma albumin emmanuelle urement (mass/volume)on 07-21-2021 Albumin [Mass/Vol] 3.4 g/dL 3.2-5.0 [facility] Work Phone: Serum or plasma albumin/glob ulin mass ratioon 07-21-2021 Albumin/Globulin [Mass ratio] 0.9 {ratio} 0.9-2.4 [facility] Work Phone: Serum or plasma calcium emmanuelle urement (mass/volume)on 07-21-2021 Calcium [Mass/Vol] 8.6 mg/dL 8.5-10.1 [facility] Work Phone: Serum or plasma creatinine m easurement (mass/volume)on 07-21-2021 Creatinine [Mass/Vol] 0.68 mg/dL 0.55-1.[address] [facility] Work Phone: Comment on above: The validity of the calculated GFR & GFRAA in patients over 70 years has not been determined. Clinical correlation is essential. Serum or plasma urea nitroge n measurement (mass/volume)on 07-21-2021 Urea nitrogen [Mass/Vol] 12 mg/dL 7-18 [facility] Work Phone: Thin prep Papanicolaou smear with manual screeningon 07-21-2021 Thin prep Papanicolaou smear with manual screening 21 U/L 15-37 [facility] Work Phone: Thin prep Papanicolaou smear with manual screening 5 5-15 [facility] Work Phone: Whole blood hemoglobin A1c/t otal hemoglobin ratio (mass fraction)on 07-21-2021 HbA1c (Bld) [Mass fraction] 5.4 % 3.8-5.6 [facility] Work Phone: Comment on above: Normal < 5.7 % Predi abetic 5.7 - 6.4 % Diabetic >or= 6.5 % Please note range changes. Culture, urineon 07-20-2021 Bacteria identified Cx Nom (U) Positive [facility] Work Phone: BONE MARROW BIOPSY [facility] Vital Signs Date Time Vital Sign Value Performing Clinician Facility 11-28-2024 17:00-0400 Body temperature 96.7 [degF] Dr. Krystina Calle DO Work Phone: [facility] 11-28-2024 17:00-0400 Diastolic blood pressure 92 mm[Hg] Dr. Krystina Calle DO Work Phone: [facility] 11-28-2024 17:00-0400 Heart rate 69 /min Dr. Krystina Calle DO Work Phone: [facility] 11-28-2024 17:00-0400 Respiratory rate 14 /min Dr. Krystina Calle DO Work Phone: [facility] 11-28-2024 17:00-0400 SaO2% (BldA) [Mass fraction] 96 % Dr. Krystina Calle DO Work Phone: [facility] 11-28-2024 17:00-0400 Systolic blood pressure 166 mm[Hg] Dr. Krystina Calle DO Work Phone: [facility] 11-28-2024 15:13-0400 Body mass index (BMI) [Ratio] 38.9 kg/m2 Dr. Krystina Calle DO Work Phone: [facility] 11-28-2024 15:13-0400 Body weight [address] Krystina Calle DO Work Phone: [facility] 11-28-2024 12:14-0400 Body height 165.[address] Krystina Calle DO Work Phone: [facility] 11-04-2024 08:17-0400 Body mass index (BMI) [Ratio] 39.22 kg/m2 Fabiano Jungi DO Work Phone: [facility] 11-04-2024 08:17-0400 Body temperature 98.1 [degF] Fabiano Masci DO Work Phone: [facility] 11-04-2024 08:17-0400 Body weight 107.73 kg Fabiano Masci DO Work Phone: [facility] 11-04-2024 08:17-0400 Diastolic blood pressure 88 mm[Hg] Fabiano Masci DO Work Phone: [facility] 11-04-2024 08:17-0400 Heart rate 69 /min Afbiano Masci DO Work Phone: [facility] 11-04-2024 08:17-0400 SaO2% (BldA) [Mass fraction] 97 % Fabiano Masci DO Work Phone: [facility] 11-04-2024 08:17-0400 Systolic blood pressure 150 mm[Hg] Fabiano Jungi DO Work Phone: [facility] 08-20-2024 08:06-0400 Body height 165.[address] Krystina Calle DO Work Phone: [facility] 08-20-2024 08:06-0400 Body mass index (BMI) [Ratio] 38.9 kg/m2 Dr. Krystina Calle DO Work Phone: [facility] 08-20-2024 08:06-0400 Body weight 106.[address] Krystina Calle DO Work Phone: [facility] 07-01-2024 11:00-0400 Body mass index (BMI) [Ratio] 38.06 kg/m2 Fabiano Erichi DO Work Phone: [facility] 07-01-2024 11:00-0400 Body temperature 98.71 [degF] Fabiano Masci DO Work Phone: [facility] 07-01-2024 11:00-0400 Body weight 104.55 kg Fabiano Masci DO Work Phone: [facility] 07-01-2024 11:00-0400 Diastolic blood pressure 82 mm[Hg] Fabiano Masci DO Work Phone: [facility] 07-01-2024 11:00-0400 Heart rate 73 /min Fabiano Masci DO Work Phone: [facility] 07-01-2024 11:00-0400 SaO2% (BldA) [Mass fraction] 97 % Fabiano Masci DO Work Phone: [facility] 07-01-2024 11:00-0400 Systolic blood pressure 155 mm[Hg] Fabiano Masci DO Work Phone: [facility] 06-18-2024 10:33-0400 Body mass index (BMI) [Ratio] 38.23 kg/m2 Esha Onealight Work Phone: [facility] 06-18-2024 10:33-0400 Body temperature 98.6 [degF] Esha Read Work Phone: [facility] 06-18-2024 10:33-0400 Body weight 105.01 kg Esha Onealight Work Phone: [facility] 06-18-2024 10:33-0400 Diastolic blood pressure 86 mm[Hg] Esha Read Work Phone: [facility] 06-18-2024 10:33-0400 Heart rate 53 /min Esha Read Work Phone: [facility] 06-18-2024 10:33-0400 SaO2% (BldA) [Mass fraction] 98 % Esha Read Work Phone: [facility] 06-18-2024 10:33-0400 Systolic blood pressure 146 mm[Hg] Esha Read Work Phone: [facility] 04-27-2024 08:23-0500 Body mass index (BMI) [Ratio] 37.57 kg/m2 Fabiano Jungi DO Work Phone: [facility] 04-27-2024 08:23-0500 Body temperature 97.59 [degF] Fabiano Jungi DO Work Phone: [facility] 04-27-2024 08:23-0500 Body weight 103.19 kg Fabiano Jungi DO Work Phone: [facility] 04-27-2024 08:23-0500 Diastolic blood pressure 77 mm[Hg] Fabiano Jungi DO Work Phone: [facility] 04-27-2024 08:23-0500 Heart rate 69 /min Fabiano Jungi DO Work Phone: [facility] 04-27-2024 08:23-0500 SaO2% (BldA) [Mass fraction] 99 % Fabiano Erichi DO Work Phone: [facility] 04-27-2024 08:23-0500 Systolic blood pressure 120 mm[Hg] Fabiano Liz DO Work Phone: [facility] 02-24-2024 09:13-0500 Diastolic blood pressure 83 mm[Hg] Dr. Krystina Calle DO Work Phone: [facility] 02-24-2024 09:13-0500 Systolic blood pressure 144 mm[Hg] Dr. Krystina Calle DO Work Phone: [facility] 02-24-2024 09:07-0500 Body height 165.[address] Krystina Calle DO Work Phone: [facility] 02-24-2024 09:07-0500 Body mass index (BMI) [Ratio] 39.2 kg/m2 Dr. Krystina Calle DO Work Phone: [facility] 02-24-2024 09:07-0500 Body weight 106.[address] Krystina Calle DO Work Phone: [facility] 01-30-2024 07:56-0500 Body mass index (BMI) [Ratio] 38.77 kg/m2 Devika Brush CHIROPRACTIC PHYSICIAN.STUDY SPECIALIST Work Phone: [facility] 01-30-2024 07:56-0500 Body temperature 97.5 [degF] Devika Brush CHIROPRACTIC PHYSICIAN.STUDY SPECIALIST Work Phone: [facility] 01-30-2024 07:56-0500 Body weight 106.5 kg Devika Brush CHIROPRACTIC PHYSICIAN.STUDY SPECIALIST Work Phone: [facility] 01-30-2024 07:56-0500 Diastolic blood pressure 82 mm[Hg] Devika Brush CHIROPRACTIC PHYSICIAN.STUDY SPECIALIST Work Phone: [facility] 01-30-2024 07:56-0500 Heart rate 99 /min Devika Brush CHIROPRACTIC PHYSICIAN.STUDY SPECIALIST Work Phone: [facility] 01-30-2024 07:56-0500 SaO2% (BldA) [Mass fraction] 93 % Devika Brush CHIROPRACTIC PHYSICIAN.STUDY SPECIALIST Work Phone: [facility] 01-30-2024 07:56-0500 Systolic blood pressure 126 mm[Hg] Devika Brush CHIROPRACTIC PHYSICIAN.STUDY SPECIALIST Work Phone: [facility] 10-30-2023 08:31-0400 Body mass index (BMI) [Ratio] 39.38 kg/m2 Fabiano Liz DO Work Phone: [facility] 08-07-2024 08:31-0400 Body temperature 98.49 [degF] Fabiano Jungi DO Work Phone: [facility] 10-30-2023 08:31-0400 Body weight 108.18 kg Fabiano Jungi DO Work Phone: [facility] 10-30-2023 08:31-0400 Diastolic blood pressure 78 mm[Hg] Fabiano Jungi DO Work Phone: [facility] 10-30-2023 08:31-0400 Heart rate 65 /min Fabiano Jungi DO Work Phone: [facility] 10-30-2023 08:31-0400 SaO2% (BldA) [Mass fraction] 98 % Fabiano Jungi DO Work Phone: [facility] 10-30-2023 08:31-0400 Systolic blood pressure 135 mm[Hg] Fabiano Jungi DO Work Phone: [facility] 07-25-2023 08:24-0400 Body mass index (BMI) [Ratio] 38.86 kg/m2 Devika Brush CHIROPRACTIC PHYSICIAN.STUDY SPECIALIST Work Phone: [facility] 07-25-2023 08:24-0400 Body temperature 98.71 [degF] [place] Brush CHIROPRACTIC PHYSICIAN.STUDY SPECIALIST Work Phone: [facility] 07-25-2023 08:24-0400 Body weight 106.73 kg Devika Brush CHIROPRACTIC PHYSICIAN.STUDY SPECIALIST Work Phone: [facility] 07-25-2023 08:24-0400 Diastolic blood pressure 70 mm[Hg] Devika Brush CHIROPRACTIC PHYSICIAN.STUDY SPECIALIST Work Phone: [facility] 07-25-2023 08:24-0400 Heart rate 70 /min Devika Brush CHIROPRACTIC PHYSICIAN.STUDY SPECIALIST Work Phone: [facility] 07-25-2023 08:24-0400 SaO2% (BldA) [Mass fraction] 99 % Devika Brush CHIROPRACTIC PHYSICIAN.STUDY SPECIALIST Work Phone: [facility] 07-25-2023 08:24-0400 Systolic blood pressure 152 mm[Hg] Devika Brush CHIROPRACTIC PHYSICIAN.STUDY SPECIALIST Work Phone: [facility] 06-11-2023 13:43-0400 Body temperature 98.01 [degF] Bee Athy PA-C Work Phone: [facility] 06-11-2023 13:43-0400 Body weight 106.7 kg Bee Athy PA-C Work Phone: [facility] 06-11-2023 13:43-0400 Diastolic blood pressure 72 mm[Hg] Bee Athy PA-C Work Phone: [facility] 06-11-2023 13:43-0400 Heart rate 76 /min Bee Athy PA-C Work Phone: [facility] 06-11-2023 13:43-0400 Respiratory rate 16 /min Bee Athy PA-C Work Phone: [facility] 06-11-2023 13:43-0400 SaO2% (BldA) [Mass fraction] 98 % Bee Athy PA-C Work Phone: [facility] 06-11-2023 13:43-0400 Systolic blood pressure 134 mm[Hg] Bee Athy PA-C Work Phone: [facility] 04-26-2023 08:36-0500 Body temperature 98.71 [degF] Fabiano Masci DO Work Phone: [facility] 04-26-2023 08:36-0500 Body weight 105.69 kg Fabiano Masci DO Work Phone: [facility] 04-26-2023 08:36-0500 Diastolic blood pressure 69 mm[Hg] Fabiano Masci DO Work Phone: [facility] 04-26-2023 08:36-0500 Heart rate 62 /min Fabiano Masci DO Work Phone: [facility] 04-26-2023 08:36-0500 SaO2% (BldA) [Mass fraction] 99 % Fabiano Masci DO Work Phone: [facility] 04-26-2023 08:36-0500 Systolic blood pressure 135 mm[Hg] Fabiano Liz DO Work Phone: [facility] 02-19-2023 09:39-0500 Body height 167.[address] Krystina Calle Work Phone: [facility] 02-19-2023 09:28-0500 Body mass index (BMI) [Ratio] 37.5 kg/m2 Dr. Krystina Calle Work Phone: [facility] 02-19-2023 09:28-0500 Body weight 105.[address] Krystina Calle Work Phone: [facility] 02-19-2023 09:28-0500 Diastolic blood pressure 85 mm[Hg] Dr. Krystina Calle Work Phone: [facility] 02-19-2023 09:28-0500 Systolic blood pressure 137 mm[Hg] Dr. Krystina Calle Work Phone: [facility] 12-31-2022 12:59-0400 Body height 167.[address] Krystina Calle Work Phone: [facility] 12-31-2022 12:55-0400 Body mass index (BMI) [Ratio] 37.7 kg/m2 Dr. Krystina Calle Work Phone: [facility] 12-31-2022 12:55-0400 Body weight 105.[address] Krystina Calle Work Phone: [facility] 12-31-2022 12:55-0400 Diastolic blood pressure 88 mm[Hg] Dr. Krystina Calle Work Phone: [facility] 12-31-2022 12:55-0400 Systolic blood pressure 120 mm[Hg] Dr. Krystina Calle Work Phone: [facility] 10-22-2022 15:47-0400 Body temperature 99.1 [degF] Fabiano Liz DO Work Phone: [facility] 10-22-2022 15:47-0400 Body weight 104.1 kg Fabiano Masci DO Work Phone: [facility] 10-22-2022 15:47-0400 Diastolic blood pressure 79 mm[Hg] Fabiano Masci DO Work Phone: [facility] 10-22-2022 15:47-0400 Heart rate 70 /min Fabiano Masci DO Work Phone: [facility] 10-22-2022 15:47-0400 SaO2% (BldA) [Mass fraction] 98 % Fabiano Masci DO Work Phone: [facility] 10-22-2022 15:47-0400 Systolic blood pressure 122 mm[Hg] Fabiano Masci DO Work Phone: [facility] 08-27-2022 17:07-0400 Body temperature 98.91 [degF] Lori Solano CHIROPRACTIC PHYSICIAN.STUDY SPECIALIST Work Phone: [facility] 08-27-2022 17:07-0400 Body weight 102.06 kg Lori Solano CHIROPRACTIC PHYSICIAN.STUDY SPECIALIST Work Phone: [facility] 08-27-2022 17:07-0400 Diastolic blood pressure 74 mm[Hg] Lori Solano CHIROPRACTIC PHYSICIAN.STUDY SPECIALIST Work Phone: [facility] 08-27-2022 17:07-0400 Heart rate 76 /min Lori Solano CHIROPRACTIC PHYSICIAN.STUDY SPECIALIST Work Phone: [facility] 08-27-2022 17:07-0400 Respiratory rate 16 /min Lori Solano CHIROPRACTIC PHYSICIAN.STUDY SPECIALIST Work Phone: [facility] 08-27-2022 17:07-0400 SaO2% (BldA) [Mass fraction] 95 % Lori Solano CHIROPRACTIC PHYSICIAN.STUDY SPECIALIST Work Phone: [facility] 08-27-2022 17:07-0400 Systolic blood pressure 124 mm[Hg] Lori Solano CHIROPRACTIC PHYSICIAN.STUDY SPECIALIST Work Phone: [facility] 07-25-2022 13:08-0400 Diastolic blood pressure 80 mm[Hg] Fabiano Masci DO Work Phone: [facility] 07-25-2022 13:08-0400 Heart rate 79 /min Fabiano Masci DO Work Phone: [facility] 07-25-2022 13:08-0400 Systolic blood pressure 127 mm[Hg] Fabiano Masci DO Work Phone: [facility] 07-25-2022 11:23-0400 Body height 165.7 cm Fabiano Masci DO Work Phone: [facility] 07-25-2022 11:23-0400 Body temperature 98.4 [degF] Fabiano Masci DO Work Phone: [facility] 07-25-2022 11:23-0400 Body weight 102.06 kg Fabiano Masci DO Work Phone: [facility] 07-25-2022 11:23-0400 Diastolic blood pressure 83 mm[Hg] Fabiano Masci DO Work Phone: [facility] 07-25-2022 11:23-0400 Heart rate 80 /min Fabiano Masci DO Work Phone: [facility] 07-25-2022 11:23-0400 Systolic blood pressure 136 mm[Hg] Fabiano Masci DO Work Phone: [facility] 06-28-2022 09:18-0400 Body height 167.[address] Krystina Calle Work Phone: [facility] 06-28-2022 09:16-0400 Body mass index (BMI) [Ratio] 36.5 kg/m2 Dr. Krystina Calle Work Phone: [facility] 06-28-2022 09:16-0400 Body weight 102.[address] Krystina Calle Work Phone: [facility] 06-28-2022 09:16-0400 Diastolic blood pressure 82 mm[Hg] Dr. Krystina Calle Work Phone: [facility] 06-28-2022 09:16-0400 Systolic blood pressure 132 mm[Hg] Dr. Krystina Calle Work Phone: [facility] 05-21-2022 15:55-0500 Body mass index (BMI) [Ratio] 37.8 kg/m2 Dr. Krystina Calle Work Phone: [facility] 05-21-2022 15:55-0500 Body weight 106.[address] Krystina Calle Work Phone: [facility] 05-21-2022 15:55-0500 Diastolic blood pressure 85 mm[Hg] Dr. Krystina Calle Work Phone: [facility] 05-21-2022 15:55-0500 Systolic blood pressure 134 mm[Hg] Dr. Krystina Calle Work Phone: [facility] 04-24-2022 15:29-0500 Body mass index (BMI) [Ratio] 37.8 kg/m2 Dr. Krystina Calle Work Phone: [facility] 04-24-2022 15:29-0500 Body weight 106.[address] Krystina Calle Work Phone: [facility] 04-24-2022 15:29-0500 Diastolic blood pressure 83 mm[Hg] Dr. Krystina Calle Work Phone: [facility] 04-24-2022 15:29-0500 Systolic blood pressure 130 mm[Hg] Dr. Krystina Calle Work Phone: [facility] 03-27-2022 15:47-0500 Body mass index (BMI) [Ratio] 39.2 kg/m2 Dr. Krystina Calle Work Phone: [facility] 03-27-2022 15:47-0500 Body weight 110.[address] Krystina Calle Work Phone: [facility] 03-27-2022 15:47-0500 Diastolic blood pressure 83 mm[Hg] Dr. Krystina Calle Work Phone: [facility] 03-27-2022 15:47-0500 Heart rate 85 /min Dr. Krystina Calle Work Phone: [facility] 03-27-2022 15:47-0500 Systolic blood pressure 134 mm[Hg] Dr. Krystina Calle Work Phone: [facility] 03-01-2022 15:01-0500 Body height 167.[address] Krystina Calle Work Phone: [facility] Work Phone: 03-01-2022 15:01-0500 Body mass index (BMI) [Ratio] 43 kg/m2 Dr. Krystina Calle Work Phone: [facility] 03-01-2022 15:01-0500 Body weight 110.[address] Krystina Calle Work Phone: [facility] 03-01-2022 15:01-0500 Diastolic blood pressure 73 mm[Hg] Dr. Krystina Calle Work Phone: [facility] 03-01-2022 15:01-0500 Heart rate 79 /min Dr. Krystina Calle Work Phone: [facility] 03-01-2022 15:01-0500 Systolic blood pressure 118 mm[Hg] Dr. Krystina Calle Work Phone: [facility] 02-08-2022 08:28-0500 Body height 167.[address] Krystina Calle Work Phone: [facility] Work Phone: 02-08-2022 08:25-0500 Body mass index (BMI) [Ratio] 39.6 kg/m2 Dr. Krystina Calle Work Phone: [facility] Work Phone: 02-08-2022 08:25-0500 Body weight 111.[address] Krystina Calle Work Phone: [facility] Work Phone: 02-08-2022 08:25-0500 Diastolic blood pressure 81 mm[Hg] Dr. Krystina Calle Work Phone: [facility] Work Phone: 02-08-2022 08:25-0500 Systolic blood pressure 148 mm[Hg] Dr. Krystina Calle Work Phone: [facility] Work Phone: Encounters Encounter Date Encounter Type Care Provider Facility Start: 02-16-2025 ambulatory Monie Linda Blair lity:[facility] Start: 01-25-2025 End: 01-25-2025 [facility] Start: 01-13-2025 End: 01-13-2025 [facility] Start: 01-01-2025 End: 01-01-2025 [facility] Start: 12-16-[address] Dallas fair MD -Physical Therapy Work Phone: Start: 12-04-2024 End: 12-04-[address] Krystina Calle DO Work Phone: -Cat Scan [facility] Start: 12-04-2024 End: 12-04-[address] Fabiano Liz DO -Cat Scan [facility] Work Phone: Start: 12-04-2024 End: 12-04-2024 ambulatory Krystina Calle Facility:[facility] Start: 11-29-2024 End: 12-07-2024 ambulatory Fabiano Liz DO Work Phone: Hematology/Oncology Comment on above: Abnormal CT results Start: 11-28-2024 End: 11-28-2024 Emergency department patient visit Dr. Krystina Calle DO Work Phone: -Emergency Department Work Phone: Start: 11-20-2024 End: 11-20-2024 Specialty Pharmacy Lori Martinez [facility] Comment on above: SPP Oral Oncology/he matology - Medication Refill (Scemblix) Start: 11-19-[address] Dallas fair MD -Physical Therapy Work Phone: Start: 11-04-2024 End: 11-04-2024 Telephone encounter Fabiano [...] Start: 11-04-2024 End: 11-04-2024 ambulatory FABIANO LIZ Facility:[facility] Start: 10-29-2024 Registered [facility] ASSESSMENT -Employee Health Start: 10-29-2024 End: 10-29-[address] Krystina Calle DO Work Phone: -Laboratory Start: 10-29-2024 End: 10-29-[address] Krystina Calle DO -Laboratory Work Phone: Start: 10-29-2024 End: 10-29-2024 ambulatory Krystina Calle Facility:[facility] Start: 10-26-2024 End: 10-26-2024 Specialty Pharmacy [facility] Comment on above: SPP Oral Oncology/he matology - Medication Refill (Scemblix) Start: 10-12-2024 End: 10-12-2024 ambulatory KRYSTINA CALLE Facility:[facility] Start: 09-30-2024 End: 09-30-2024 Specialty Pharmacy [facility] Comment on above: SPP Oral Oncology/he matology - Medication Refill (Scemblix) Start: 09-28-2024 End: 09-29-2024 Refill Fabiano Liz DO Work Phone: Hematology/Oncology Comment on above: Refill Request Medication Problem Start: 08-20-2024 End: 08-20-[address] [place] Rojas MD -[facility] Work Phone: Start: 08-20-2024 End: 08-20-[address] Krystina Calle DO Work Phone: [facility] Work Phone: Start: 08-10-2024 End: 08-10-[address] Krystina Calle DO Work Phone: [facility] Work Phone: Start: 08-10-2024 End: 08-10-[address] Krystina Calle DO Work Phone: [facility] Work Phone: Start: 08-10-2024 End: 08-10-2024 ambulatory Krystina Calle Facility:[facility] Start: 07-29-2024 End: 07-29-2024 ambulatory KRYSTINA CALLE Facility:[facility] Start: 07-14-2024 End: 07-14-[address] Krystina Calle DO Work Phone: [facility] Work Phone: Start: 07-14-2024 End: 07-14-2024 Patient encounter procedure Mireya BOWIE -[facility] Work Phone: Start: 07-14-2024 End: 07-14-2024 ambulatory Krystina Calle Facility:[facility] Start: 07-01-2024 End: 07-01-2024 Office outpatient visit 25 minutes Fabiano Liz DO Work Phone: Hematology/Oncology Comment on above: CML (chronic myelocy tic leukemia) (HCC) (Primary Dx); Gastroesophageal reflux disease, unspecified whether esophagitis present; Sciatica, right side Start: 07-01-2024 End: 07-01-2024 ambulatory FABIANO LIZ Facility:[facility] Start: 06-26-2024 End: 06-26-2024 Telephone encounter Esha Read Work Phone: Hematology/Oncology Start: 06-18-2024 End: 06-18-[address] Krystina Calle DO Work Phone: [facility] Work Phone: Start: 06-18-2024 End: 06-18-[address] Krystina Calle DO Work Phone: -Radiology, [facility] Work Phone: Start: 06-18-2024 End: 06-18-2024 Patient encounter procedure Esha Read Work Phone: Hematology/Oncology Start: 06-18-2024 End: 06-18-2024 ambulatory Esha Read Work Phone: Hematology/Oncology Comment on above: Acute bilateral low back pain with right-sided sciatica (Primary Dx); CML (chronic myelocytic leukemia) (HCC) Start: 06-18-2024 End: 06-18-2024 ambulatory [facility] Facility:[facility] Start: 06-15-2024 End: 06-15-[address] Krystina Calle DO Work Phone: [facility] Work Phone: Start: 06-15-2024 End: 06-15-[address] Fabiano Liz DO -Laboratory Work Phone: Start: 06-15-2024 End: 06-15-2024 ambulatory Fabiano Liz Facility:[facility] Start: 06-12-2024 End: 06-15-2024 Telephone encounter Ligia Mtz blower insulator/Oncology Comment on above: Back End Architect - O ther (Oral Anti-Cancer Agents Follow-up ) Start: 06-09-2024 End: 06-23-2024 ambulatory KRYSTINA CALLE Facility:[facility] Start: 06-08-2024 End: 06-08-2024 ambulatory Fabiano Liz DO Work Phone: Hematology/Oncology Comment on above: Scemblix Start: 05-13-2024 End: 05-13-2024 Refill Devika Brothersenter CHIROPRACTIC PHYSICIAN.STUDY SPECIALIST Work Phone: Hematology/Oncology Comment on above: Refill Request Start: 05-13-2024 End: 05-14-2024 Refill Devika Brothersenter CHIROPRACTIC PHYSICIAN.STUDY SPECIALIST Work Phone: Hematology/Oncology Comment on above: Refill Request Start: 05-05-2024 End: 06-02-2024 Telephone encounter Ligia Mtz RN Hematology/Oncology Comment on above: Back End Architect - O ther (Oral Anti-Cancer Agents Education (asciminib)) Start: 04-28-2024 End: 04-28-2024 ambulatory Jefferson Vuong [facility] Start: 04-28-2024 End: 04-28-2024 Patient encounter procedure Jefferson Vuong [facility] Comment on above: SPP Oral Oncology/he matology - Treatment Referral (Scemblix 40 mg) Start: 04-27-2024 End: 04-27-2024 ambulatory KRYSTINA CALLE Facility:[facility] Start: 04-27-2024 End: 04-27-2024 Office outpatient visit 25 minutes Fabiano Liz DO Work Phone: Hematology/Oncology Comment on above: CML (chronic myelocy tic leukemia) (HCC) (Primary Dx); History of iron deficiency; Gastroesophageal reflux disease, unspecified whether esophagitis present Start: 04-20-2024 End: 04-20-2024 ambulatory FABIANO LIZ Facility:[facility] Start: 04-03-2024 End: 04-03-2024 Refill Fabiano Liz DO Work Phone: Hematology/Oncology Comment on above: Refill Request Start: 03-31-2024 End: 03-31-2024 Refill Fabiano Liz DO Work Phone: Hematology/Oncology Comment on above: Refill Request Start: 02-24-2024 End: 02-24-[address] Monie Mckeon MD -[facility] Work Phone: Start: 02-24-2024 End: 02-24-[address] Monie Mckeon MD [facility] Start: 02-24-2024 End: 02-24-2024 ambulatory Monie Mckeon Facility:[facility] Start: 01-30-2024 End: 01-30-2024 ambulatory Devika Brush CHIROPRACTIC PHYSICIAN.STUDY SPECIALIST Work Phone: Hematology/Oncology Comment on above: CML (chronic myelocy tic leukemia) (HCC) (Primary Dx) Start: 01-30-2024 End: 01-30-2024 Patient encounter procedure Devika Brush CHIROPRACTIC PHYSICIAN.STUDY SPECIALIST Work Phone: Hematology/Oncology Start: 01-28-2024 End: 01-28-2024 Orders Only Fabiano Liz DO Work Phone: Hematology/Oncology Start: 11-10-2023 End: 11-11-2023 Refill Fabiano Liz [...] Work Phone: Hematology/Oncology Start: 09-30-2023 ambulatory Fabiano Liz D O Work Phone: Hematology/Oncology Comment on above: New pharmacy Start: 07-30-2023 ambulatory Devika francis CHIROPRACTIC PHYSICIAN.STUDY SPECIALIST Work Phone: Hematology/Oncology Start: 07-30-2023 Patient encounter procedure Devika Brush CHIROPRACTIC PHYSICIAN.STUDY SPECIALIST Work Phone: Hematology/Oncology Comment on above: Next appointment Start: 07-29-2023 ambulatory Devika francis CHIROPRACTIC PHYSICIAN.STUDY SPECIALIST Work Phone: Hematology/Oncology Comment on above: Response to voicemai l Start: 07-29-2023 Telephone encounter Devika carlson APRN.STUDY SPECIALIST Work Phone: Hematology/Oncology Start: 07-25-2023 End: 07-25-2023 Subsequent hospital visit by physician Xr [facility] Avelino Ugo Work Phone: Radiology Comment on above: 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] Start: 07-25-2023 End: 07-25-2023 ambulatory Devika Brush CHIROPRACTIC PHYSICIAN.STUDY SPECIALIST Work Phone: Hematology/Oncology Comment on above: CML (chronic myelocy tic leukemia) (HCC) (Primary Dx) Start: 07-25-2023 End: 07-25-2023 Patient encounter procedure Devika Brush CHIROPRACTIC PHYSICIAN.STUDY SPECIALIST Work Phone: Hematology/Oncology Start: 07-16-2023 Orders Only Fabiano Emerson Work Phone: Hematology/Oncology Comment on above: CML (chronic myelocy tic leukemia) (HCC) (Primary Dx) Start: 07-15-2023 Refill Devika francis APRN.STUDY SPECIALIST Work Phone: Hematology/Oncology Comment on above: Refill Request Start: 06-12-2023 ambulatory Fabiano Emerson Work Phone: Hematology/Oncology Comment on above: Viral test Start: 06-11-2023 End: 06-11-2023 ambulatory Fabiano Liz DO Work Phone: Hematology/Oncology Comment on above: Fever Start: 06-11-2023 End: 06-11-2023 Patient encounter procedure Bee Patterson PA-C Work Phone: [facility] Comment on above: URI, acute (Primary Dx) Start: 06-11-2023 Non-patient / Non-visit Dr. Joan Calle Work Phone: [facility] Start: 06-11-2023 End: 06-11-[address] Krystina Calle Work Phone: [facility]-Cardiovascul ar Services Work Phone: Start: 06-03-2023 Telephone encounter Fabiano ventura DO Work Phone: Hematology/Oncology Comment on above: medication PA Start: 05-30-2023 ambulatory Fabiano Emerson Work Phone: Hematology/Oncology Comment on above: Bosulif Start: 04-26-2023 End: 04-26-2023 Subsequent hospital visit by physician [facility] Work Phone: Radiology Comment on above: 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] Start: 04-26-2023 End: 04-26-2023 Office outpatient visit 25 minutes Fabiano Liz DO Work Phone: Hematology/Oncology Comment on above: CML (chronic myelocy tic leukemia) (HCC) (Primary Dx); Dyspnea and respiratory abnormalities; Gastroesophageal reflux disease, unspecified whether esophagitis present Start: 02-19-[address] Octavio Calle Work Phone: [facility] Start: 02-19-2023 End: 02-19-[address] Krystina Calle Work Phone: [facility] Start: 02-19-2023 End: 02-19-[address] Krystina Calle Work Phone: [facility] Work Phone: Start: 02-03-2023 Telephone encounter Fabiano ventura DO Work Phone: Hematology/Oncology Comment on above: Results Start: 01-23-2023 Orders Only Fabiano Emerson Work Phone: Hematology/Oncology Comment on above: CML (chronic myelocy tic leukemia) (HCC) (Primary Dx) Start: 01-07-2023 End: 01-07-[address] Krystina Calle Work Phone: [facility] Work Phone: Start: 01-07-2023 End: 01-07-[address] Krystina Calle Work Phone: [facility]-Outpatient Breast Imaging Work Phone: Start: 12-31-2022 End: 12-31-[address] Krystina Calle Work Phone: [facility] [facility] Work Phone: Start: 12-28-2022 Refill Devika francis APRN.STUDY SPECIALIST Work Phone: Hematology/Oncology Comment on above: Refill Request Allopurinal Start: 11-01-2022 Non-patient / Non-visit Dr. Joan Calle Work Phone: [facility] Start: 11-01-2022 End: 11-01-[address] Krystina Calle Work Phone: [facility] Work Phone: Start: 11-01-2022 End: 11-01-[address] Krystina Calle Work Phone: [facility]-Cardiovascul ar Services Work Phone: Start: 10-24-2022 Telephone encounter Fabiano ventura DO Work Phone: Hematology/Oncology Comment on above: Results (CXR) Start: 10-23-2022 ambulatory Fabiano Emerson Work Phone: Hematology/Oncology Comment on above: Blood work Start: 10-22-2022 End: 10-22-2022 Subsequent hospital visit by physician [facility] Work Phone: Radiology Comment on above: Acquired hypothyroid ism [E03.9] Start: 10-22-2022 End: 10-22-2022 ambulatory Fabiano Liz DO Work Phone: Hematology/Oncology Comment on above: CML (chronic myelocy tic leukemia) (HCC) (Primary Dx); Acquired hypothyroidism; Iron deficiency anemia, unspecified iron deficiency anemia type Start: 10-22-2022 End: 10-22-2022 Patient encounter procedure Fabiano Liz DO Work Phone: [facility] Start: 09-20-2022 ambulatory Fabiano Anderson O Work Phone: Hematology/Oncology Comment on above: Dental implant infec tion Start: 08-30-2022 Telephone encounter Fabiano ventura DO Work Phone: Hematology/Oncology Comment on above: Results Start: 08-27-2022 End: 08-27-2022 Subsequent hospital visit by physician Xr [facility] Work Phone: Radiology Comment on above: Acute cough [R05.1] Start: 08-27-2022 End: 08-27-2022 Patient encounter procedure Lori Xiomara FISHER.STUDY SPECIALIST Work Phone: [facility] Comment on above: Acute cough (Primary Dx); Impacted cerumen, left ear; Hearing loss due to cerumen impaction, left Start: 08-23-2022 Telephone encounter Ligia Mtz RN He matology/Oncology Comment on above: Back End Architect - O ther (Follow-up ) Start: 08-17-2022 Telephone encounter Ligia Mtz RN He matology/Oncology Comment on above: Back End Architect - O ther (Oral Anti-Cancer Agents Follow-up (Bosutinib) ) Start: 08-02-2022 Telephone encounter Fabiano ventura DO Work Phone: Hematology/Oncology Comment on above: Refill Request Start: 07-26-2022 ambulatory Duong Avila [facility] Start: 07-26-2022 Patient encounter procedure Duong Avila [facility] Comment on above: SPP [...] encounter procedure Fabiano Liz DO Work Phone: [facility] Start: 07-24-2022 Orders Only Fabiano Anderson O Work Phone: Hematology/Oncology Comment on above: CML (chronic myelocy tic leukemia) (HCC) (Primary Dx); Other elevated white blood cell (WBC) count Start: 07-23-2022 Refill Fabiano Anderson O Work Phone: Hematology/Oncology Comment on above: Results (High uric a brad) Start: 07-21-2022 End: 07-21-[address] Krystina Calle Work Phone: [facility] Work Phone: Start: 07-21-2022 End: 07-21-[address] Krystina Calle Work Phone: [facility]-Laboratory Start: 06-28-2022 End: 06-28-[address] Krystina Calle Work Phone: [facility] Start: 06-16-2022 End: 06-16-[address] Krystina Calle Work Phone: [facility] Work Phone: Start: 06-16-2022 End: 06-16-[address] [facility] Start: 05-21-2022 End: 05-21-[address] Krystina Calle Work Phone: [facility] Start: 04-24-2022 End: 04-24-[address] Krystina Calle Work Phone: [facility] Start: 03-27-2022 End: 03-27-[address] Krystina Calle Work Phone: [facility] Start: 03-03-2022 End: 03-03-2022 Non-patient / Non-visit Dr. Krystina Calle Work Phone: [facility] Start: 03-03-2022 End: 03-03-[address] Krystina Calle Work Phone: [facility] Work Phone: Start: 03-03-2022 End: 03-03-[address] Krystina Calle Work Phone: [facility]-Pulmonary Services/Neurology Start: 03-01-2022 End: 03-01-[address] Krystina Calle Work Phone: [facility] Work Phone: Start: 03-01-2022 End: 03-01-[address] Krystina Calle Work Phone: [facility] Start: 02-08-2022 End: 02-08-[address] Krystina Calle Work Phone: [facility] Work Phone: Start: 02-08-2022 End: 02-08-[address] Krystina Calle Work Phone: [facility] Start: 01-02-2022 End: 01-02-2022 ambulatory [employer] Facility:[facility] Start: 12-29-2021 End: 12-29-[address] Krystina Calle Work Phone: [facility] Start: 12-19-2021 End: 12-19-2021 ambulatory [employer]OY[employer] Facility:[facility] Start: 07-27-2021 End: 07-27-2021 Patient encounter procedure [facility]-Cat Scan, [facility] Start: 07-21-2021 End: 07-21-2021 Patient encounter procedure [facility]-Laboratory Start: 07-20-2021 End: 07-20-2021 Patient encounter procedure [facility]-Laboratory, Specimen Procedures Date Procedure Procedure Detail Performing Clinician Start: 12-04-2024 CT of abdomen and pe lvis without contrast Dr. Krystina Calle DO Work Phone: Start: 11-28-2024 CT angiography of he ad and neck Dr. Krystina Calle DO Work Phone: Start: 11-28-2024 CT angiography of ch est with contrast Dr. Krystina Calle DO Work Phone: Start: 11-28-2024 CT of head without contrast Dr. Krystina Calle DO Work Phone: Start: 10-29-2024 Serum inorganic phos phate measurement Dr. Krystina Calle DO Work Phone: Start: 10-29-2024 Urnls dip [...] A/ B & RSV NAAT, ROUTINE Bee Stephanie Patterson PA-C Work Phone: Start: 04-26-2023 Radiologic exam ches t 2 views Fabiano Liz DO Work Phone: Start: 01-07-2023 Bilateral mammography D jhonatan Calle Work Phone: Start: 01-07-[address] Krystina Calle Work Phone: Start: 10-22-2022 Radiologic exam ches t 2 views Fabiano Aron Erichi DO Work Phone: Start: 08-27-2022 Radiologic exam ches t 2 views Lori Solano CHIROPRACTIC PHYSICIAN.STUDY SPECIALIST Work Phone: Start: 07-25-2022 FLOW CYTOMETRY BONE MARROW HOLD (BMHOLD) Fabiano Aron [employer] DO Work Phone: Start: 07-25-2022 FLOW CYTOMETRY BONE MARROW REFLEX Fabiano A Masci DO Work Phone: Start: 07-25-2022 Diagnostic bone idania ow biopsies & aspirations Fabiano Aron [employer] DO Work Phone: Start: 07-25-2022 BONE MARROW ANALYSIS Pa meli A [employer] Work Phone: Start: 02-08-2022 Screening mammography Monica Calle Work Phone: Start: 12-29-2021 MRI of lumbar spine Dr. Krystina Calle Work Phone: Start: 07-27-2021 Computed tomography of abdomen and pelvis with contrast Start: 07-20-2021 Urine culture Plan of Treatment Date Care Activity Detail Author Start: 10-13-2027 Diabetes Screening Diabetes Screening [facility] Start: 07-30-2027 Diabetes Screening Diabetes Screening [facility] Start: 04-20-2027 Diabetes Screening Diabetes Screening [facility] Start: 01-29-2027 Diabetes Screening Diabetes Screening [facility] Start: 10-22-2026 Diabetes Screening Diabetes Screening [facility] Start: 07-16-2026 Diabetes Screening Diabetes Screening [facility] Start: 04-26-2026 Diabetes Screening Diabetes Screening [facility] Start: 01-24-2026 Diabetes Screening Diabetes Screening [facility] Start: 12-20-2025 Diabetes Screening Diabetes Screening [facility] Start: 10-22-2025 DIABETES SCREEN DIABETES SCREEN [facility] Start: 09-20-2025 DIABETES SCREEN DIABETES SCREEN [facility] Start: 08-29-2025 DIABETES SCREEN DIABETES SCREEN [facility] Start: 08-16-2025 DIABETES SCREEN DIABETES SCREEN [facility] Start: 07-23-2025 DIABETES SCREEN DIABETES SCREEN [facility] Start: 02-04-2025 End: 02-04-2025 ambulatory 02/04/2025 8:30 AM EST Visit (SP) Office Hematology/Oncology [address] [place] [address] Fabiano Liz DO [address] [place] [address] 3MO OV Hematology/Oncolog y Comment on above: 3MO OV Start: 01-25-2025 End: 01-25-2025 ambulatory 01/25/2025 8:00 AM EST Results Only [facility] [place] [facility] [address] [place] [address] CBC/CMP and PCR for BCR::ABL [facility] Comment on above: CBC/CMP and PCR for BCR::ABL Start: 12-21-2024 End: 12-21-2024 Specialty Pharmacy 12/21/2024 7:30 AM EDT Specialty Pharmacy [facility] [place] [address] Pharmacist, [facility] [address] [place] [address] [address] [place] [phone] Refill Scemblix (30 mg) [facility] Comment on above: Refill Scemblix (30 mg) Start: 11-28-2024 [facility] Start: 11-28-2024 [facility] Start: 11-28-2024 Chemotherapy care management [facility] Start: 11-23-2024 Influenza vaccination Influenza Vaccine (#1) [facility] Start: 11-20-2024 End: 11-20-2024 Specialty Pharmacy 11/20/2024 7:45 AM EDT Specialty Pharmacy [facility] [place] [address] Pharmacist, [facility] [address] [place] [address] [place] [address] Refill Scemblix (30 mg) [facility] Comment on above: Refill Scemblix (30 mg) Start: 11-04-2024 End: 02-03-2025 Ferritin [Mass/volume] in Serum or Plasma [facility] Comment on above: Expected: 11/04/2024, Expires: Start: 11-04-2024 End: 02-03-2025 Iron and Iron binding capacity panel - Serum or Plasma [facility] Work Phone: Comment on above: Expected: 11/04/2024, Expires: Start: 11-04-2024 End: 11-04-2024 ambulatory Hematology/Oncolog y Comment on above: Q6MO OV/ LABS 07/29 & 10/26* Q6MO OV/ LABS 10/12* Start: 10-26-2024 End: 10-26-2024 ambulatory 10/26/2024 8:00 AM EDT Results Only [facility] [address] [place] [address] CBC/CMP* [facility] Comment on above: CBC/CMP* Start: 10-22-2024 End: 10-22-2024 ambulatory 10/22/2024 9:10 AM EDT Visit (SP) Office Hematology/Oncology [address] [place] [address] Fabiano Liz, [address] [facility] [place] [address] OV/LABS 10/12* Hematology/Oncolog y Comment on above: OV/LABS 10/12* Start: 10-21-2024 End: 10-21-2024 Specialty Pharmacy 10/21/2024 7:30 AM EDT Specialty Pharmacy [facility] [place] [address] Pharmacist, [facility] [address] [place] [address] [place] [address] Refill Scemblix (30 mg) [facility] Comment on above: Refill Scemblix (30 mg) Start: 10-12-2024 End: 10-12-2024 ambulatory 10/12/2024 10:00 AM EDT Results Only [place] [facility] [address] [place] [address] CBC/CMP/BCR ABL P210 and P190 [facility] Comment on above: CBC/CMP/BCR ABL P210 and P190 Start: 07-29-2024 End: 07-29-2024 ambulatory 07/29/2024 8:00 AM EDT Results Only [place] [facility] [address] [place] [address] CBC/CMP* [facility] Comment on above: CBC/CMP* Start: 07-01-2024 End: 07-01-2024 ambulatory [facility] Comment on above: CBC/Lipase-On Scemblix CBC/LIPASE/OV-On Sce mblix* Start: 06-23-2024 End: 06-23-2024 Specialty Pharmacy 06/23/2024 7:15 AM EDT Specialty Pharmacy [facility] [address] [place], [place] [id number] [place] [id number] Pharmacist, [facility] [address] [place] [address] Refill - Scemblix [30ds] [facility] Comment on above: Refill - Scemblix [30ds] Start: 06-18-2024 End: 06-18-2024 ambulatory [facility] Comment on above: CBC/Lipase-On Scemblix Blood pressure check -On Scemblix CBC/Lipase-On Scembl ix(LIPASE COMPLETED AT [facility]) OV-Per ,see phone note 06/15 Start: 06-15-2024 End: 09-14-2024 CBC W Auto Differential panel - Blood COMPLETE BLOOD COUNT AND DIFFERENTIAL Lab STAT CML (chronic myelocytic leukemia) ([facility]) Expected: 06/15/2024, Expires: 09/14/2024 [facility] Work Phone: Comment on above: Expected: 06/15/2024, Expires: Start: 06-15-2024 End: 09-14-2024 Lipase [Enzymatic activity/volume] in Serum or Plasma LIPASE Lab Routine CML (chronic myelocytic leukemia) (HCC) Expected: 06/15/2024, Expires: 09/14/2024 [facility] Comment on above: Expected: 06/15/2024, Expires: Start: 04-27-2024 End: 04-27-2024 ambulatory 04/27/2024 8:30 AM EST Visit (SP) Office Hematology/Oncology [address], [place] [phone] Fabiano Liz DO [address] [place], [place] [id number] Q3MO OV/ LABS 04/20* Hematology/Oncolog y Comment on above: Q3MO OV/ LABS 04/20* Start: 04-20-2024 End: 04-20-2024 ambulatory [facility] Comment on above: CBC/CMP/MAG/PHOS/BCR ABL1 P190 and P210* CBC/CMP/MAG/PHOS/BCR ABL1 P190 and P210* IRON STUDIES Start: 01-30-2024 End: 01-30-2024 ambulatory [facility] Comment on above: CBC/CMP* Q3MO OV/ LABS EARLY* CBC/CMP(S)* Start: 11-24-2023 Influenza vaccination Influenza Vaccine (#1) [facility] Start: 10-30-2023 End: 01-29-2024 Ferritin [Mass/volume] in Serum or Plasma FERRITIN Lab Routine Iron deficiency anemia secondary to inadequate dietary iron intake Expected: 10/30/2023, Expires: 01/29/2024 [facility] Comment on above: Expected: 10/30/2023, Expires: Start: 10-30-2023 End: 01-29-2024 Iron and Iron binding capacity panel - Serum or Plasma IRON AND TIBC Lab Routine Iron deficiency anemia secondary to inadequate dietary iron intake Expected: 10/30/2023, Expires: 01/29/2024 [facility] Work Phone: Comment on above: Expected: 10/30/2023, Expires: Start: 10-30-2023 End: 10-30-2023 ambulatory 10/30/2023 8:30 AM EDT Visit (SP) Office Hematology/Oncology [address] [place], [place] [phone] Fabiano Liz, DO [address] [place] [address] Q3MO OV/ LABS 10/22* Hematology/Oncolog y Comment on above: Q3MO OV/ LABS 10/22* Start: 10-23-2023 End: 10-23-2023 ambulatory 10/23/2023 4:00 PM EDT Results Only Avelino Day [facility] [address] [place] [address] (SO)CBC/CMP(S)/PCR BCR/ABL for both p210 and p190* [facility] Comment on above: (SO)CBC/CMP(S)/PCR BCR/ABL for both p210 and p190* Start: 07-25-2023 End: 07-25-2023 ambulatory 07/25/2023 8:30 AM EDT Visit (SP) Office Hematology/Oncology [address] [place] [address] Fabiano Liz, DO [address] [place] [address] Q3MO OV/ LABS 07/16* Hematology/Oncolog y Comment on above: Q3MO OV/ LABS 07/16* Start: 07-17-2023 End: 07-17-2023 ambulatory [facility] Comment on above: CBC/CMP/PCR BCR/ABL for both p210 and p1 90 (SO)CBC/CMP(S)/PCR B CR/ABL for both p210 and p190* Start: 07-17-2023 End: 10-16-2023 BCR/ABL1 P190 QUANTITATIVE PCR BLOOD BCR/ABL1 P190 QUANTITATIVE PCR BLOOD Lab Routine CML (chronic myelocytic leukemia) (FORMERLY [facility]) Expected: 07/17/2023, Expires: 10/16/2023 [facility] Work Phone: Comment on above: Expected: 07/17/2023, Expires: Start: 07-17-2023 End: 10-16-2023 BCR/ABL1 P210 QUANTITATIVE PCR BLOOD BCR/ABL1 P210 QUANTITATIVE PCR BLOOD Lab Routine CML (chronic myelocytic leukemia) ([facility]) Expected: 07/17/2023, Expires: 10/16/2023 [facility] Comment on above: Expected: 07/17/2023, Expires: Start: 04-26-2023 End: 07-26-2023 BCR/ABL1 P190 QUANTITATIVE PCR BLOOD [facility] Work Phone: Comment on above: Expected: 04/26/2023, Expires: Start: 04-26-2023 End: 07-26-2023 BCR/ABL1 P210 QUANTITATIVE PCR BLOOD [facility] Work Phone: Comment on above: Expected: 04/26/2023, Expires: Start: 03-25-2023 Behavioral Health Screening Behavioral Health Screening [facility] Start: 03-25-2023 Depression Assessment Depression Assessment [facility] Start: 01-24-2023 End: 04-25-2023 BCR/ABL1 P210 QUANTITATIVE PCR BLOOD BCR/ABL1 P210 QUANTITATIVE PCR BLOOD Lab Routine CML (chronic myelocytic leukemia) ([facility]) Expected: 01/24/2023, Expires: 04/25/2023 [facility] Work Phone: Comment on above: Expected: 01/24/2023, Expires: Start: 01-23-2023 End: 04-24-2023 BCR/ABL1 P190 QUANTITATIVE PCR BLOOD BCR/ABL1 P190 QUANTITATIVE PCR BLOOD Lab Routine CML (chronic myelocytic leukemia) ([facility]) Expected: 01/23/2023, Expires: 04/24/2023 [facility] Work Phone: Comment on above: Expected: 01/23/2023, Expires: 4 Start: 11-23-2022 Influenza vaccination INFLUENZA (#1) [facility] Start: 10-22-2022 End: 12-22-2022 BCR/ABL1 P190 QUANTITATIVE PCR BLOOD [facility] Work Phone: Comment on above: Expected: 10/22/2022, Expires: 3 Start: 10-22-2022 End: 12-22-2022 BCR/ABL1 P210 QUANTITATIVE PCR BLOOD [facility] Work Phone: Comment on above: Expected: 10/22/2022, Expires: 3 Start: 07-25-2022 End: 09-24-2022 CBC W Auto Differential panel - Blood CBC + DIFF Lab STAT CML (chronic myelocytic leukemia) (HCC) Other elevated white blood cell (WBC) count Expected: 07/25/2022, Expires: 09/24/2022 [facility] Work Phone: Comment on above: Expected: 07/25/2022, Expires: 3 Start: 07-23-2022 End: 09-22-2022 BCR/ABL1 P210 AND P190 DIAGNOSTIC PCR BLOOD [facility] Work Phone: Comment on above: Expected: 07/23/2022, Expires: 3 Start: 07-23-2022 End: 09-22-2022 Chronic hepatitis differentiation between hepatitis B and C virus panel - Serum or Plasma [facility] Work Phone: Comment on above: Expected: 07/23/2022, Expires: 3 Start: 07-23-2022 End: 09-22-2022 HIV 1+2 Ab [Presence] in Serum or Plasma by Immunoassay [facility] Work Phone: Comment on above: Expected: 07/23/2022, Expires: 3 Start: 03-25-2022 DEPRESSION ASSESSMENT DEPRESSION ASSESSMENT [facility] Start: 2022 COLOGUARD (FIT-DNA) COLOGUARD (FIT-DNA) [facility] Start: 2022 Colonoscopy COLONOSCOPY [facility] Start: 2022 COLORECTAL CANCER SCREENING COLORECTAL CANCER SCREENING [facility] Start: [address] COLONOGRAPHY [facility] Start: 2022 FECAL OCCULT BLOOD FECAL OCCULT BLOOD [facility] Start: 2022 Lipid 1996 panel - Serum or Plasma Lipid Screening [facility] Start: 2022 Lipid panel Lipid Screening [facility] Start: 2022 LIPID SCREEN LIPID SCREEN [facility] Start: 2022 Screening for malignant neoplasm of colon [facility] Start: 2022 SIGMOIDOSCOPY SIGMOIDOSCOPY [facility] Start: 03-03-2021 COVID-19 VACCINE (3 - Booster for Moderna series) COVID-19 VACCINE (3 - Booster for Moderna series) [facility] Start: 02-03-2021 COVID-19 VACCINE (3 - Moderna risk series) COVID-19 VACCINE (3 - Moderna risk series) [facility] Start: 10-23-2017 Urine microalbumin profile DTaP,Tdap,Td Vaccine (2 - Td or Tdap) [facility] Start: 2017 Mammography [facility] Start: 2017 Screening for malignant neoplasm of breast Mammogram Screening [facility] Start: 06-28-2007 PAP TESTING PAP TESTING [facility] Start: 06-28-2007 Screening for malignant neoplasm of cervix Pap Testing [facility] Start: 2007 HPV TESTING HPV TESTING [facility] Start: 2007 Screening for malignant neoplasm of cervix HPV Testing [facility] Start: 06-28-2003 Screening for malignant neoplasm of cervix Cervical Cancer Screening [facility] Start: 01-18-1996 Pneumococcal vaccination Pneumococcal Vaccine (1 of 2 - PCV) [facility] Start: 01-18-1996 SHINGRIX VACCINE (1 of 2) SHINGRIX VACCINE (1 of 2) [facility] Start: 01-18-1996 Urine microalbumin profile [facility] Start: 1995 Anxiety Screening Anxiety Screening [facility] Start: 1995 Depression Screening Depression Screening [facility] Start: 1995 HEPATITIS C SCREENING HEPATITIS C SCREENING [facility] Start: 1995 HIV SCREENING HIV SCREENING [facility] Start: 1983 PNEUMOCOCCAL (1 - PCV) P[facility]UMOC[facility]CCAL (1 - PCV) [facility] Start: 1983 [facility] Start: [facility] HEPATITIS B (1 of 3 - 3-dose series) HEPATITIS B (1 of 3 - 3-dose series) [facility] BCR/ABL1 P190 NCN P2 10 % IS MR BONE MARROW BCR/ABL1 P190 NCN P210 % IS MR BONE MARROW Lab Routine Bandemia 07/25/2022 1:17 PM EDT [facility] Work Phone: BCR/ABL1 P210 AND P1 90 DIAGNOSTIC PCR BONE MARROW BCR/ABL1 P210 AND P190 DIAGNOSTIC PCR BONE MARROW Lab Routine Bandemia 07/25/2022 1:17 PM T [facility] Work Phone: BCR/ABL1 P210 AND P1 90 DIAGNOSTIC PCR BONE MARROW BCR/ABL1 P210 AND P190 DIAGNOSTIC PCR BONE MARROW Lab Routine Bandemia 07/25/2022 1:17 PM EDT [facility] Work Phone: BONE MARROW CHROMOSOME ANAL BONE MARROW CHROMOSOME ANAL Lab Routine Bandemia 07/25/2022 1:17 PM T [facility] Work Phone: CBC W Ordered Manual Differential panel - Blood PATHOLOGIST INTERPRETATION WITH CBC AND DIFF Lab STAT Other elevated white blood cell (WBC) count 07/23/2022 2:52 PM EDT [facility] Work Phone: End: 01-01-2026 CT Abdomen and Pelvis WO contrast CT ABD/PEL WO IVCON Radiology Routine CML (chronic myelocytic leukemia) (HCC) Mediastinal lymphadenopathy 1 Occurrences starting 12/02/2024 until 01/01/2026 [facility] Work Phone: Comment on above: 1 Occurrences starting 12/02/2024 until 01/01/2026 DNA EXTRACTION BONE MARROW (BUFFY COAT) DNA EXTRACTION BONE MARROW (BUFFY COAT) Lab Routine Bandemia 07/25/2022 1:17 PM EDT [facility] Work Phone: End: 04-26-2024 ECG COMPLETE ECG COMPLETE ECG Routine CML (chronic myelocytic leukemia) (HCC) Dyspnea and respiratory abnormalities 1 Occurrences starting 04/26/2023 until 04/26/2024 [facility] Work Phone: Comment on above: 1 Occurrences starting 04/26/2023 until 04/26/2024 End: 10-25-2023 Echocardiography ECHO Cardiology Routine CML (chronic myeloid leukemia) (HCC) Encounter for monitoring cardiotoxic drug therapy 1 Occurrences starting 10/24/2022 until 10/25/2023 [facility] Work Phone: Comment on above: 1 Occurrences starting 10/24/2022 until 10/25/2023 End: 04-26-2024 Echocardiography ECHO Cardiology Routine CML (chronic myelocytic leukemia) (HCC) 1 Occurrences starting 04/26/2023 until 04/26/2024 [facility] Work Phone: Comment on above: 1 Occurrences starting 04/26/2023 until 04/26/2024 Electrocardiographic procedure [facility] Work Phone: End: 07-26-2025 MR Lumbar spine WO contrast MRI LUMBAR SPINE WO IVCON Radiology Routine Spinal stenosis of lumbar region, unspecified whether neurogenic claudication present 1 Occurrences starting 06/26/2024 until 07/26/2025 [facility] Work Phone: Comment on above: 1 Occurrences starting 06/26/2024 until 07/26/2025 End: 11-21-2023 Radiologic exam chest 2 views XR CHEST 2V FRONTAL/LAT Radiology Routine Acquired hypothyroidism Iron deficiency anemia, unspecified iron deficiency anemia type CML (chronic myelocytic leukemia) (HCC) 1 Occurrences starting 10/22/2022 until 11/21/2023 [facility] Work Phone: Comment on above: 1 Occurrences starting 10/22/2022 until 11/21/2023 Radiologic exam ches t 2 views XR CHEST 2V FRONTAL/LAT Radiology Routine Acquired hypothyroidism Iron deficiency anemia, unspecified iron deficiency anemia type CML (chronic myelocytic leukemia) (HCC) 10/22/2022 4:56 PM EDT [facility] Work Phone: Removal impacted cer umen irrigation/lvg unilat AMBULATORY EAR LAVAGE/IRRIGATION Procedures Routine Impacted cerumen, left ear Ordered: 08/27/2022 [facility] Work Phone: Comment on above: Ordered: 08/27/2022 T4 free measurement [facility] Work Phone: Thyroid stimulating hormone measurement [facility] Work Phone: Triiodothyronine, fr ee measurement [facility] Work Phone: Troponin T.cardiac [Mass/volume] in Serum or Plasma by High sensitivity method [facility] XR Femur - left AP a nd Lateral XR FEMUR GENERAL 2V AP/LAT LEFT Radiology Routine CML (chronic myelocytic leukemia) ([facility]) 07/25/2023 9:12 AM EDT [facility] Work Phone: End: 08-23-2024 XR Femur - left AP and Lateral XR FEMUR GENERAL 2V AP/LAT LEFT Radiology Routine CML (chronic myelocytic leukemia) ([facility]) 1 Occurrences starting 07/25/2023 until 08/23/2024 [facility] Work Phone: Comment on above: 1 Occurrences starting 07/25/2023 until 08/23/2024 End: 07-18-2025 XR Lumbar spine AP and Lateral XR LUMBAR LIMITED 2V AP/LAT Radiology Routine Acute bilateral low back pain with right-sided sciatica 1 Occurrences starting 06/18/2024 until 07/18/2025 [facility] Work Phone: Comment on above: 1 Occurrences starting 06/18/2024 until 07/18/2025 [facility] Immunizations Immunization Date Immunization Notes Care Provider Fa [facility] 01-23-2024 influenza, seasonal, injectable, preservative free Dr. Krystina Calle DO Work Phone: [facility] 01-23-2024 influenza virus vaccine, unspecified formulation Fabiano Liz DO Work Phone: [facility] 12-07-2022 influenza virus vaccine, unspecified formulation Fabiano Liz DO Work Phone: [facility] 01-06-2021 Covid (Moderna) [facility] 12-20-2020 influenza, injectabl e, quadrivalent, preservative free Dr. Krystina Calle Work Phone: [facility] 12-20-2020 influenza, seasonal, injectable [facility] 12-09-2020 [facility] (Moderna) [facility] 12-22-2019 influenza, injectabl e, quadrivalent, preservative free Dr. Krystina Calle Work Phone: [facility] 12-22-2019 influenza, seasonal, [facility] 12-18-2018 influenza, injectabl e, quadrivalent, preservative free Dr. Krystina Calle Work Phone: [facility] 12-18-2018 influenza, seasonal, [facility] 12-18-2017 influenza, injectabl e, quadrivalent, preservative free Dr. Krystina Calle Work Phone: [facility] 12-18-2017 influenza, seasonal, [facility] 12-19-2016 influenza, injectabl e, quadrivalent, preservative free Dr. Krystina Calle Work Phone: [facility] 12-19-2016 influenza, seasonal, [facility] 12-22-2015 influenza, injectabl e, quadrivalent, preservative free Dr. Krystina Calle Work Phone: [facility] 12-22-2015 influenza, seasonal, injectable [facility] 12-22-2014 influenza, injectabl e, quadrivalent, preservative free Dr. Krystina Calle Work Phone: [facility] 12-22-2014 influenza, seasonal, injectable [facility] 12-23-2013 influenza, injectabl e, quadrivalent, preservative free Dr. Krystina Calle Work Phone: [facility] 12-23-2013 influenza, seasonal, injectable [facility] Payers Date Payer Category Payer Self-pay [id number] 2023 Private Health Insurance [id number] 2023 Unknown [id number] 2022 Unknown [id number].[facility] 2016 Unknown [id number] Unknown 0000 Unknown [id number] 2.16.8 [id number] Unknown [id number] 2.16.8 [id number] Unknown [id number] 2.16.8 [id number] Unknown [id number] 2.16.8 [id number] Unknown [id number] 2.16.8 [id number] Unknown [id number] 2.16.8 [id number] Unknown [id number] 2.16.8 [id number] Unknown [id number] 2.16.8 [id number] Unknown [id number] 2.16.8 [id number] Unknown [id number] 2.16.8 [id number] Unknown [id number] 2.16.8 [id number] Unknown [id number] 2.16.8 [id number] Unknown [id number] 2.16.8 [id number] Unknown [id number] 2.16.8 [id number] Unknown [id number] 2.16.8 [id number] Social History Date Type Detail Facility Start: 12-26-2020 End: 02-19-2023 Tobacco smoking status NHIS Unknown if ever smoked [facility] Start: 1975 Sex Assigned At Female [facility] Start: 07-25-2022 End: 11-28-2024 Tobacco smoking status NHIS Never smoked tobacco [facility] Start: 08-25-2017 End: 08-27-2022 Alcohol intake Current drinker of alcohol (finding) [facility] Start: 09-20-2009 Alcohol Comment [facility] Start: 1975 Sex Assigned At Not on file [facility] Start: 07-25-2022 Tobacco use and exposure Smokeless tobacco non-user [facility] Start: 10-22-2022 End: 11-04-2024 Alcohol intake Ex-drinker (finding) [facility] Start: 10-22-2022 End: 06-18-2024 History of Social function [facility] Start: 10-22-2022 End: 06-18-2024 Tobacco use panel [facility] Start: 02-24-2012 Adult Depression Screening Assessment 0 [facility] Start: 06-22-2024 End: 07-20-2024 Sex Female (finding) [facility] Mental Status Date Assessment Result Facility 11-28-2024 Cognitive function Level Of Cons ciousness Awake;Alert;Appropriate;Follow s Commands [facility] Work Phone: Clinical Notes 07-23-2022 to 01-19-2025 Telephone Encounter - Alisha Romero LPN - 12/03/2024 5:00 PM EDTTelephone Encounter - Alisha Romero LPN - 12/03/2024 5:00 PM EDTTelephone Encounter - Fabiano Liz DO - 12/02/2024 8:29 AM EDT Note Date & Type Note Facility 01-19-2025 Note HNO ID: [id number] Author: JEFFERSON VUONG RPh Service: ? Author Type: ? Type: Progress Notes Filed: 01/20/2025 14:00 Note Text: [facility] Refill Assessment Medication(s): Scemblix No new clinical information to review since last SPP refill encounter. Next OV scheduled 02/15/25. ALLERGIES Allergen Reactions Iv Dye [Iodinated C* [...] medication. Jefferson Vuong, PharmD Clinical Pharmacist, Oncology [facility] P: , F: Pool: P [facility] Pool #: [id number] Mechanism Inspector Assessment Patient confirmed: Yes Med/dose confirmed: Yes Supplies needed: No supplies needed Missed doses: No Estimated days supply on hand: 9 Copay amount: 0 Payment confirmed: Yes Delivery method: FedEx Signature required: Waived on patient request Delivery Address Options from [facility] Home Delivery Address Calculated: [address] [place] [address] Delivery date: 01/22/25 Questions or concerns for the pharmacist?: No Did you have any side effects believed to be related to this medication, that resulted in hospitalization?: No Current Outpatient Medications on File Prior to Visit Medication Sig ondansetron (ZOFRAN) 8 mg tablet Take 1 tablet by mouth every 8 hours as needed (For chemotherapy induced nausea and vomiting). allopurinol (ZYLOPRIM) 300 mg tablet TAKE 1 TABLET BY MOUTH ONCE DAILY asciminib (SCEMBLIX) 40 mg tablet Take 2 tablets (80 mg) by mouth once daily on an empty stomach, 1 hour before or 2 hours [address] eating pantop[address]ole [address] (PROTONIX) 40 mg tablet Take 1 tablet by mouth once daily. potassium chloride (K-TAB) 10 mEq tablet Take 2 tablets by mouth once daily. acetaminophen (TYLENOL) 325 mg tablet Take 325 [...] facility-administered medications on file prior to visit. [facility] SPECIALTY CLINICAL ASSESSMENT - HEMATOLOGY [...] G3/4 - Cardio toxicity (ischemic cardiac and SENIOR BENEFITS ANALYST events, thrombotic and embolic events, HF reported) [...] disease progression or unacceptable toxicity. Margaret Zaragoza (Chief Controller Station) [facility] 12-21-2024 Note HNO ID: [id number] Author: LORI MARTINEZ RPh Service: ? Author Type: ? Type: Progress Notes Filed: 12/23/2024 12:36 Note Text: [facility] Ref[facility] Assessment Medication(s): Scemblix Reviewed message notes on 11/29 and 12/18. Patient was in ED on 11/28 for elevated BP. Scan completed and showed some concerning lymph nodes. Started on Norvasc and Clonidine. Given size and spread, lymph nodes not likely of concern but repeat CT scan planned. Patient saw outside provider to follow up for BP concerns and was started also on HCTZ. No interactions noted with above and Scemblix. Repeat CT scan completed which showed small fluid filled cyst per MD evaluation. Planning to follow up with OBGYN in February. Labs reviewed. Next clinic visit scheduled 02/04. ALLERGIES Allergen Reactions Iv Dye [Iodinated C* [...] been reviewed prior to dispensing the medication. Lori Martinez RPh PharmD, BCPS Clinical Pharmacist, Oncology [facility] P: , F: Pool: P [facility] Pool #: [id number] Mechanism Inspector Assessment Patient confirmed: Yes Med/dose confirmed: Yes Supplies needed: No supplies needed Missed doses: No Estimated days supply on hand: 9 Copay amount: 0 Delivery method: FedEx Signature required: Waived on patient request Delivery Address Options from [facility] Home Delivery Address Calculated: [address], [place] [address] Delivery date: 12/25/24 Questions or concerns for the pharmacist?: No Did you have any side effects believed to be related to this medication, that resulted in hospitalization?: No Current Outpatient Medications on File Prior to Visit Medication Sig allopurinol (ZYLOPRIM) 300 mg tablet TAKE 1 TABLET BY MOUTH ONCE DAILY asciminib (SCEMBLIX) 40 mg tablet Take 2 [...] facility-administered medications on file prior to visit. [facility] SPECIALTY CLINICAL ASSESSMENT - HEMATOLOGY [...] G3/4 - Cardio toxicity (ischemic cardiac and SENIOR BENEFITS ANALYST events, thrombotic and embolic events, HF reported) [...] (Monthly or as clinically needed) - BP (more content not included)... [facility] 12-04-2024 Radiology Diagnostic study note [facility] Imaging Services [address] [place], [place] [id number] Abdomen/Pelvis without Cont MR#: [id number] Acct: [id number] Name: NEELPAXTONLIBIA FRIDA Rep #: [id number] : 1975 F 49 From: Annette Livingston MD PCP: Dr. Krystina Calle, Status: REG CLI Study:Abdomen/Pelvis without Cont Date of Exa m: 12/04/24 Exam# [id number] Ordering Dr: Azeb Liz DO PROCEDURE: ABDOMEN/PELVIS WITHOUT CONT 12/04/2024 REASON FOR EXAM: CML TECHNIQUE: Procedure Code: CTABDPEL Modality: CT Procedure: ABDOMEN/PELVIS WITHOUT CONT Noncontrast technique limits evaluation of the abdominal and pelvic viscera. Coronal and Sagittal reconstruction series were provided. One or more dose reduction techniques were used (e.g., Automated exposure control, adjustment of the mA and/or kV according to patient size, use of iterative reconstruction technique). RADIATION DOSE SUMMARY: CTDlvol: 23 mGy DLP: 1244 mGycm COMPARISON: July 27, 2021, January 13, 2019 FINDINGS: Lung bases: Clear Liver: Enlarged, diffusely fatty infiltrated liver. Gallbladder: Cholecystectomy. No biliary ductal dilation. Spleen: Normal. Pancreas: Normal. Adrenals: Right adrenal nodule is 15 x 10 mm. A prior exam is noncontrast showing of the nodule is 10 Hounsfield units consistent with an adenoma. Left adrenal is normal. Kidneys: 2 mm calculus right lower pole is nonobstructing. Bladder: Nearly empty Reproductive Organs: Hysterectomy. Left ovarian cyst is 2.3 x 2.7 x 2.8 cm. Noright adnexal mass. Bowel: Small sliding hiatus hernia. Small bowel is normal. Colon appears normal. Appendix: Normal Lymph nodes: None appear enlarged. Vasculature: Normal Peritoneum / Retroperitoneum: No free air, free fluid or mass. Bones: Facet hypertrophy L3/4, L4/5 and L5/S1. CT/Abdomen/Pelvis without Cont IMPRESSION: 1. Hysterectomy. Left ovarian cyst measures up to 2.8 cm. ACR White Paper recommendations (Guadarrama, et al. J Am Vishnu Radiol 2020;17:248-254) suggest the following: No further imaging. 2. Right adrenal nodule represents a benign adenoma. No follow-up required. 3. Diffuse fatty liver. Reading Location: [id number] CC: Dr. Krystina Calle DO; Dr. Fabiano Liz DO ~ Software Program Manager: Signed [facility] 12-03-2024 Telephone encounter Note [facility] CT called and wanted order faxed directly to them. Order faxed as requested. Alisha Romero LPN [facility] 12-03-2024 Miscellaneous Notes [facility] CT called and wanted order faxed directly to them. Order faxed as requested. Alisha Romero LPN PSS- CT abd/pel order has been placed. Please assist the patient in scheduling this at [facility]. Alisha Romero LPN Lets just order the CT of the abdomen pelvis without IV and without oral contrast. Mainly looking for obvious enlarged lymph nodes or splenomegaly. Fabiano Liz DO documented in this encounter [facility] 12-02-2024 Telephone encounter Note PSS- CT abd/pel order has been placed. Please assist the patient in scheduling this at [facility]. Alisha Romero LPN [facility] 12-02-2024 Telephone encounter Note Lets just order the CT of the abdomen pelvis without IV and without oral contrast. Mainly looking for obvious enlarged lymph nodes or splenomegaly. Fabiano Liz DO [facility] 11-28-2024 Discharge summary [facility] 11-28-2024 Radiology Diagnostic study note [facility] Imaging Services [address] [place] [address] [id number] CTA Chest W/WO Contrast MR#: [id number] Acct: [id number] Name: LIBIA OLIVAS FRIDA Rep #: [id number] : 1975 F 49 From: David Valentine MD PCP: Dr. Krystina Calle DO Status: [facility] ER Study:CTA Chest W/WO Contrast Date of Exam: 11/28/24 Exam# [id number] Ordering Dr: Mica Pond DO PROCEDURE: CTA CHEST W/WO CONTRAST 11/28/2024 REASON FOR EXAM: SOB, HX OF CANCER TECHNIQUE: Procedure Code: [id number] Modality: CT Procedure: CTA CHEST W/WO CONTRAST Multiplanar Sagittal and Coronal images were obtained. CONTRAST: Please see CT data VOLUME: Please see CT data mL One or more dose reduction techniques were used (e.g., Automated exposure control, adjustment of the mA and/or kV according to patient size, use of iterative reconstruction technique). RADIATION DOSE SUMMARY: CTDlvol: Please see CT mGy DLP: 2643.10 mGycm COMPARISON: None FINDINGS: Pulmonary arteries: Diameter of the main pulmonary trunk at 2.9 cm is within normal range. Enhancement within the pulmonary arteries is preserved bilaterally through the proximal subsegmental levels, without evidence for acute appearing intraluminal occlusive pulmonary embolus. Evaluation of some smaller distal branches beyond the proximal subsegmental levels is nondiagnostic due to heterogeneous diminishing peripheral contrast bolus. Heart: Cardiothoracic ratio is mildly enlarged with slight prominence of left-sided chambers. Ventricular ratio is maintained. No cardiac chamber filling defect is seen to suggest cardiac thrombus. No significant pericardial effusion. Evaluation of coronary arteries is limited by motion. No dense appearing coronary calcification seen. Myocardial ischemia can not be assessed by this study. Aorta: The aortic root is not dilated. No thoracic aortic aneurysm or dissection. Maximal thoracic aortic diameter is 3.8 cm at the proximal ascending portion. No hemodynamically significant thoracic aortic stenosis. Three-vessel branch pattern noted off the aortic arch. Visualized proximal great vessels within the superior mediastinum are preserved. Mediastinum: No mediastinal hematoma. Small amount of fluid seen within the pericardial recesses. No mediastinal soft tissue emphysema. Lymph nodes: Prevascular lymph nodes are borderline up to 9.5 mm in short axis. Left hilar lymph nodes are prominent at up to 8 mm in short axis. Mildly enlarged right hilar lymph node at 12.6 mm in short axis of indeterminatesignificance. Given the patient's history of cancer, if indicated consider nonemergent whole-body PET for staging. Esophagus: No periesophageal inflammation. No hiatal hernia. Thyroid: The visualized thyroid gland is unremarkable. Lungs: The lungs are symmetrically expanded. Mild bibasal and dependent subpleural reticular and ground-glass opacities notedconsistent with mild atelectasis. There is no consolidation or air bronchograms. Mild pulmonary edema can not be excluded. Clinical correlation with symptoms. Consider radiographic follow-up as clinically appropriate. No bronchiectasis or peribronchial thickening. No suspicious pulmonary parenchymal mass. Pleura: No pleural effusion. There is no pneumothorax. Upper abdomen: No free air or free fluid within the visualized upper most abdomen. There is hepatic steatosis. Body wall: No body wall hematoma or soft tissue emphysema. Osseous: Mild degenerative changes of the spine and bony thorax. No acute osseous injury is seen. CT/CTA Chest W/WO Contrast IMPRESSION: No evidence for acute pulmonary embolus through the proximal subsegmental levelsas discussed above. - Mild cardiac enlargement. - No thoracic aortic aneurysm or dissection. - Prominent mediastinal lymph nodes and mildly enlarged right hilar lymph node of indeterminate cause. Nonemergent recommendations discussed above. - Other findings discussed above in detail. Reading Location: [id number] CC: Dr. Krystina Calle DO; Dr. Terry Pond DO ~ Software Program Manager: Signed [facility] 11-28-2024 Radiology Diagnostic study note [facility] Imaging Services [address] [place], [place] [id number] CTA Head AND Neck W/ Contrast MR#: [id number] Acct: [id number] Name: LIBIA OLIVAS FRIDA Rep #: [id number] : 1975 F 49 From: Brannon Hair MD PCP: Dr. Krystina Calle DO Status: REG ER Study:CTA Head AND Neck W/ Contrast Date of E xam: 11/28/24 Exam# [id number] Ordering Dr: Mica Pond DO PROCEDURE: CTA HEAD AND NECK W/ CONTRAST 11/28/2024 REASON FOR EXAM: HEADACHE, DIZZINESS TECHNIQUE: Procedure Code: CTCTA.HDNCK Modality: CT Procedure: CTA HEAD AND NECK W/ CONTRAST Multiplanar Sagittal and Coronal images were obtained. CONTRAST: Currently not available. Refer to technologist paperwork One or more dose reduction techniques were used (e.g., Automated exposure control, adjustment of the mA and/or kV according to patient size, use of iterative reconstruction technique). RADIATION DOSE SUMMARY: CTDlvol: 44.99 mGy DLP: 2643.10 mGycm COMPARISON: None FINDINGS: Aortic Arch: Normal three-vessel arch Brachiocephalic and Subclavians: Mildly tortuous right subclavian artery. Otherwise normal. RIGHT Carotid: Right CCA: Unremarkable Right ICA: Unremarkable Maximum stenosis (NASCET): No significant stenosis % Right ECA: Unremarkable LEFT Carotid: Left CCA: Unremarkable Left ICA: Unremarkable Maximum stenosis (NASCET): No significant stenosis % Left ECA: Unremarkable Vertebrals: Codominant. Arise from the subclavians. Both vertebrals form the basilar. RIGHT Vertebral: Unremarkable LEFT Vertebral: Unremarkable Anatomy: Native of [place] anatomy is normal. Aneurysm or avm: No intracranial aneurysms or large vascular malformations are identified. Anterior cerebral arteries: Unremarkable: Middle cerebral arteries: Unremarkable. Basilar artery: Unremarkable. Posterior cerebral arteries: Unremarkable. Other major branches of the posterior circulation: Unremarkable. Major venous structures: Unremarkable. Low-grade Other findings: Neck: Chronic appearing irregular mucoperiosteal thickening at the alveolar recess right maxillary sinus, with mixed sclerotic and erosive changes. No extraosseous enhancing soft tissue component. No cervical lymphadenopathy. Adjacent dental hardware. CT/CTA Head AND Neck W/ Contrast IMPRESSION: 1. No significant carotid stenosis according to NASCET criteria. 2. Unremarkable CTA head and neck. 3. Chronic appearing sclerotic and erosive changes at the alveolar recess right maxillary sinus. This may reflect longstanding changes related to dental hardware. However, chronic/smoldering osteomyelitis would be difficult to completely exclude. Reading Location: [id number] CC: Dr. Krystina Calle DO; Dr. Terry Pond DO ~ Software Program Manager: Signed [facility] 11-28-2024 Radiology Diagnostic study note [facility] Imaging Services [address] [place], [place] [address] Brain/Head without Contrast MR#: [id number] Acct: [id number] Name: LIBIA OLIVAS FRIDA Rep #: [id number] : 1975 F 49 From: Brannon Hair MD PCP: Dr. Krystina Calle DO Status: REG ER Study:Brain/Head without Contrast Date of Exa m: 11/28/24 Exam# [id number] Ordering Dr: Mica Pond DO PROCEDURE: BRAIN/HEAD WITHOUT CONTRAST 11/28/2024 REASON FOR EXAM: HEADACHE TECHNIQUE: Procedure Code: CTBR Modality: CT Procedure: BRAIN/HEAD WITHOUT CONTRAST Coronal and Sagittal reconstruction series were provided. One or more dose reduction techniques were used (e.g., Automated exposure control, adjustment of the mA and/or kV according to patient size, use of iterative reconstruction technique. RADIATION DOSE SUMMARY: CTDlvol: 44.99 mGy DLP: 2643.10 mGycm COMPARISON: None FINDINGS: Brain: There is no acute intracranial hemorrhage. No region of vasogenic edema,mass effect, or midline shift. CSF Spaces: The ventricles are midline, without hydrocephalus. There is no significant extra-axial fluid collection. Bones: There is no skull fracture. Hyperostosis frontalis. CT/Brain/Head without Contrast IMPRESSION: There is no acute intracranial process Reading Location: [id number] CC: Dr. Krystina Calle DO; Dr. Terry Pond DO ~ Software Program Manager: Signed [facility] 11-28-2024 Discharge summary Note Date/Time November 28, 2024 5:00pm [facility] Medical Records Department [address] [place] [address] [place] [address] Emergency Department Summary 11/28/24 MR#: [id number] Acct: [id number] Name: LIBIA OLIVAS FRIDA Rep #:[id number] : 1975 49 From: Terry Pond DO PCP: Dr. Krystina Calle DO Status:REG ER Location: ED ADDENDUM by Dr. Ricardo Menendez DO on 11/28/24 at 1700 Patient was signed out to me by Dr. Pond. At the time of sign out, patient'ssecond troponin was pending. Repeat troponin unremarkable. Delta 0. Patient was ambulated in the emergency department without difficulty. Her blood pressure has remained with SBP in the 160s. Original SBP in the 200s. Dr. Pond wrote a prescription for antihypertensive. Will write for clonidine as needed. Monitor blood pressure at home. Follow-up with PCP. Return precautions explained. She confirmed understand the plan. Patient stable to discharge home. 11/28/24 1700<Electronically signed by Ricardo Menendez DO> Cosigner Signature (if applicable): cc: Dr. Krystina Calle DO ~* Signed HPI History of Present Illness Chief Complaint: Hypertension Narrative Narrative: Patient is a 49-year-old female with past medical history of LANIE, cancer, CML, chronic back pain, Dory's thyroiditis, anemia, GERD who presents to the emergency department the chief complaint of headache, blurred vision, high bloodpressure. She also notes that she is having shortness of breath with exertion. 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 States that the longer distance she walks more short of breath she is. Patient notes that she had injections in her back for instability and pain recently and despite this her blood pressure has been elevated. Patient states that her symptoms started yesterday while at work. Patient denies any blood thinner medications. [facility] Medical History Wears glasses Wears contact lenses [...] GERD (gastroesophageal reflux disease) Anemia Home Medications ?Medication ?Instructions ?Recorded ?Last Taken ?Type levothyroxine 125 mcg capsule 125 mcg PO DAILY #90 cap s 04/13/19 Unknown Rx (Tirosint) allopurinol 300 mg tablet 300 mg PO DAILY 02/19/23 Unk nown History furosemide 20 mg tablet 20 mg PO Q OTHER DAY PRN satinder ma 02/19/23 Unknown History ondansetron HCl 8 mg tablet 8 mg PO Q8H PRN nausea and vomiting 09/16/23 Unknown History potassium chloride 10 mEq 20 meq PO BID 02/24/24 Unkno wn History tablet,extended release (Klor-Con) amlodipine 5 mg tablet 5 mg PO DAILY #30 tabs 11/28 Unknown Rx Allergy/AdvReac Type Severity Reaction Status Date / Time Iodinated Contrast Media Allergy Hives Verified 11/28/24 14:02 nalbuphine HCl (From Nubain) AdvReac Vomiting Verified 11/28/24 12:16 Family History Father CAD (coronary artery disease) Diabetes Other Hypertension Myocardial infarction Thyroid disorder Surgical History History of bone marrow biopsy H/O tubal ligation (~2005) delivery delivered H/O: hysterectomy History of cholecystectomy [...] home: Yes additional 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: - [facility]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 ROS ED ROS Narrative Constitutional: Complains of headache, denies fevers, chills Eyes: Complains of blurry vision denies double vision Cardiovascular: Denies chest pain or palpitations Respiratory: Complains of shortness of breath Abdomen: Denies abdominal pain nausea vomit diarrhea : Denies urinary symptoms Neurological: Denies any numbness, weakness, tingling Musculoskeletal: Complains of chronic back pain this is not new Skin: Denies any rashes or lesions EXAM Physical Exam Narrative Exam Narrative: General: Patient was lying in bed rest comfortably did not appear to be acute distress Head: Atraumatic, normocephalic Eyes: PERRL bilaterally, EOMI bilaterally, no conjunctival injection noted Neck: Soft, supple, trachea midline Cardiovascular: Regular rate and rhythm Respiratory: Clear to auscultation bilaterally Extremities: +5/5 strength noted in the bilateral upper and lower extremities, radial pulses +2/4 in the bilateral extremities, no pedal edema on exam Neurological: Patient follow commands knew that she was at [facility] 2024. NIH of 0 GCS 15 patient completed finger-nose testing bilaterally finding difficulty sensation grossly intact Skin: Warm, dry, intact no rashes or lesions noted Const Vital Signs: 11/28/24 12:14 11/28/24 12:34 11/28/24 12:35 Temperature 97.3 F L Temperature Source Temporal Pulse Rate 78 Respiratory Rate 16 Respiratory Effort Short of Breath Respiratory Pattern Normal Blood Pressure 208/108 H Blood Pressure Mean 141 Pulse Ox 99 97 Oxygen Delivery Method Room Air Room Air 11/28/24 12:38 11/28/24 13:55 11/28/24 14:19 Temperature Temperature Source Pulse Rate 70 67 Respiratory Rate 15 18 Respiratory Effort Respiratory Pattern Blood Pressure 192/118 H 133/68 H 172/90 H Blood Pressure Mean 142 89 117 Pulse Ox 98 98 Oxygen Delivery Method Room Air Room Air 11/28/24 15:00 Temperature Temperature Source Pulse Rate 61 Respiratory Rate 16 Respiratory Effort Respiratory Pattern Blood Pressure 159/91 H Blood Pressure Mean 113 Pulse Ox 99 Oxygen Delivery Method Room Air MDM MDM MDM Narrative Medical decision making narrative: Patient is a 49-year-old female who presents to the emergency department chief complaint of hypertension, headache, blurry vision, shortness of breath. On thedifferential diagnose includes but not limited to ACS, pneumonia, pneumothorax, intracranial hemorrhage, intracerebral aneurysm, hypertensive emergency. Once workup is obtained reviewed she will be reevaluated. Patient does have an allergy to contrast and she states that she has to be given Solu-Medrol, Benadryl and Pepcid which were ordered. Patient be given IV fluids. Patient begiven Reglan. Patient's CBC reviewed which showed no evidence leukocytosis white blood count 10.4, he was 13.4, plate count of 253. Patient's INR normal at 1, PT 12.9. Patient was 139, potassium 3.7, creatinine 0.55. Patient's calcium level 9.1, proBNP was noted be 186, troponin was 7 delta troponin pending. Patient EKG reviewed showed sinus rhythm rate of 67 bpm with a NJ interval 176 and a QTc of 486.. Patient CT head brain without contrast reviewed which showed no acute cranial processes. Patient CTA head and neck reviewed and showed no significantcarotid stenosis according to NASCET criteria. Unremarkable CT of the head and neck. Chronic appearing sclerotic and erosive changes of the alveolar recess right maxillary sinus may be reflective of longstanding changes related to dental hardware. However chronic/smoldering osteomyelitis will be difficult to completely exclude have low suspicion for osteomyelitis at this point time. Patient CTA of her chest reviewed which showed no evidence of pulmonary embolismhowever there was mild cardiac enlargement with prominent mediastinal lymph nodes and mildly enlarged right hilar lymph node she was given a hard copy of this for her own records and she was advised to take this to her oncologist further review and obtain a outpatient PET scan. After the CTA patient did develop hives on her face however these quickly resolved without any further intervention and she had no breathing difficulties no nausea or vomiting no shortness of breath associated with this. This was notdespite of premedication. Patient stood up here in the emergency department after blood pressure normalized and immediately went to the 1 7180 range of systolic therefore she will be given 5 mg amlodipine. Patient will be started on 5 mg amlodipine daily. Her 2-hour troponin is pending therefore this to be signed out however pending this she will be discharged home in stable condition with instructions to return with worsening symptoms or concerns. All question concerns were answered at bedside. Lab Data Labs: Laboratory Results - last 24 hr 11/28/24 12:30 WBC 10.4 RBC 4.92 Hgb 13.4 Hct 39.2 MCV 79.7 L MCH 27.2 MCHC 34.2 RDW Std Deviation 38.1 RDW Coeff of Sheela 13.3 Plt Count 253 MPV 10.0 Immature Gran % (Auto) 0.800 Neut % (Auto) 69.9 Lymph % (Auto) 21.1 Sawyer % (Auto) 5.6 Eos % (Auto) 1.8 Baso % (Auto) 0.8 Absolute Neuts (auto) 7.3 Absolute Lymphs (auto) 2.19 Nucleated RBC % 0 PT 12.9 INR 1.0 APTT 24.9 Sodium 139 Potassium 3.7 Chloride 103 Carbon Dioxide 22.4 Anion Gap 13 BUN 13 Creatinine 0.55 L Est GFR (MDRD) Non-Af 114 BUN/Creatinine Ratio 22.6 H Glucose 121 H Calcium 9.1 Troponin T High Sens 7 NT pro BNP II 186 Radiography Diagnostic Testing: Clinical Impression(s) from Imaging Studies Brain CT 11/28/24 12:34 IMPRESSION: There is no acute intracranial process Reading Location: [id number] Chest CTA 11/28/24 12:34 IMPRESSION: No evidence for acute pulmonary embolus through the proximal subsegmental levelsas discussed above. - Mild cardiac enlargement. - No thoracic aortic aneurysm or dissection. - Prominent mediastinal lymph nodes and mildly enlarged right hilar lymph node of indeterminate cause. Nonemergent recommendations discussed above. - Other findings discussed above in detail. Reading Location: [id number] Head/Neck CTA 11/28/24 12:39 IMPRESSION: 1. No significant carotid stenosis according to NASCET criteria. 2. Unremarkable CTA head and neck. 3. Chronic appearing sclerotic and erosive changes at the alveolar recess right maxillary sinus. This may reflect longstanding changes related to dental hardware. However, chronic/smoldering osteomyelitis would be difficult to completely exclude. Reading Location: [id number] Discharge Plan Triage Chief Complaint: Hypertension ED Provider: Terry Pond Dx/Rx/DC Orders Clinical Impression: Headache, CML (chronic myelocytic leukemia), Hypertension, Back pain, History of gastroesophageal reflux (GERD) Prescriptions: New amlodipine 5 mg tablet 5 mg PO DAILY Qty: 30 0RF No Action allopurinol 300 mg tablet 300 mg PO DAILY furosemide 20 mg tablet 20 mg PO Q OTHER DAY PRN (Reason: edema) potassium chloride [Klor-Con 10] 10 mEq tablet extended release 20 meq PO BID ondansetron HCl 8 mg tablet 8 mg PO Q8H PRN (Reason: nausea and vomiting) Tirosint 125 mcg capsule 125 mcg PO DAILY Qty: 90 3RF Primary Care Provider: Krystina Calle Referrals: Krystina Calle DO [Primary Care Provider] - Activity Restrictions/Additional Instructions: Follow-up with your doctors in outpatient setting showed them your CT report. Take the blood pressure medication as prescribed. Return with worsening symptoms or any concerns. Rotate Tylenol and ibuprofen [id number] for headache control when you do this you can take something every 3 hours max dose of ibuprofen in 24 hours 3200 mg max dose Tylenol in 24 hours 4000 mg. Print Language: Togolese What to do if you have Problems For any increased pain, shortness of breath, bleeding, nausea or vomiting, chestpain, or any unexpected problems, contact your Primary Care Provider. Call [facility] ([phone]) or report to the closest Emergency Room. Call 911 if necessary. 11/28/24 1538 <Electronically signed by Terry Pond DO> Cosigner Signature (if applicable): CC: Dr. Krystina Calle DO ~ Signed [facility] Work Phone: [phone]) 606-622208-29-2025 History of Present illness Narrative* Mila (Chief Controller Station)Margaret - 11/20/2024 1:26 PM EDT [facility] Refill Assessment Medication(s): Scemblix Patient's [...] progressing towards achieving therapeutic goals based on medication- specific laboratory parameters, disease state markers and outcomes. Office/provider notes have been reviewed prior to dispensing the medication. Mechanism Inspector Assessment Patient confirmed: Yes Med/dose confirmed: Yes Supplies needed: No supplies needed Missed doses: No Estimated days supply on hand: 10 Copay amount: 0 Payment confirmed: Yes Delivery method: FedEx Signature required: Waived on patient request Delivery Address Options from [facility] Home Delivery Address Calculated: [address] [place] [address] Delivery date: 11/26/24 Questions or concerns for the pharmacist?: No Did you have any side effects believed to be related to this medication, that resulted in hospitalization?: No Current Outpatient Medications on File Prior to Visit Medication Sig asciminib (SCEMBLIX) 40 mg tablet Take 2 tablets (80 mg) by mouth once daily on an empty stomach, 1hour before or 2 hours after eating pantoprazole [...] facility-administered medications on file prior to visit. [facility] CLINICAL ASSESSMENT - HEMATOLOGY [...] G3/4 - Cardio toxicity (ischemic cardiac and SENIOR BENEFITS ANALYST events, thrombotic and embolic events, HF reported) [...] disease progression or unacceptable toxicity. Margaret Zaragoza (Appear) documented [facility]25 NoteHNO ID: [id number] Author: JEFFERSON VUONG [facility] Service: ? Author Type: ? Type: Progress [...] medication. Jefferson Vuong, DavidD Clinical Pharmacist, Oncology [facility] P: , F: Pool: P [facility] Pool #: [id number] Mechanism Inspector Assessment Patient confirmed: Yes Med/dose confirmed: Yes Supplies needed: No supplies needed Missed doses: No Estimated days supply on hand: 10 Copay amount: 0 Payment confirmed: Yes Delivery method: FedEx Signature required: Waived on patient request Delivery Address Options from [facility] Home Delivery Address Calculated: [address] [facility], [place] [id number] Delivery date: 11/26/24 Questions or concerns for [...] facility-administered medications on file prior to visit. [facility] CLINICAL ASSESSMENT - HEMATOLOGY [...] G3/4 - Cardio toxicity (ischemic cardiac and SENIOR BENEFITS ANALYST events, thrombotic and embolic events, HF reported) [...] p210 MR: 4 BCR/ABL1 (more content not included)...[facility]08-13-2025 Telephone encounter Note* Telephone Encounter - Alisha Romero LPN - 11/04/2024 8:57 AM EDT Reviewed instructions with the patient and she verbalized understanding. Alisha Romero LPN [facility]08-13-2025 Miscellaneous Notes* Telephone Encounter - Alisha Romero LPN - 11/04/2024 8:57 AM EDT Reviewed instructions with the patient and she verbalized understanding. Alisha Romero LPN * Telephone Encounter - Fabiano Liz DO - 11/04/2024 8:46 AM EDT Forgot to address blood pressure with her. I would encourage her to start taking her blood pressure3-4 times a week first thing in the morning after getting up and before any caffeine. She should sit at the dining room table or kitchen counter for about 3 to 5 minutes before taking blood pressure.Best to have arm parallel with heart. Record blood pressures for several weeks then review with . Fabiano Liz DO documented in this encounterA[facility]08-13-2025 Telephone encounter Note * Telephone Encounter - Fabiano Liz DO - 11/04/2024 8:46 AM EDT Forgot to address blood pressure with her. I would encourage her to start taking her blood pressure3-4 times a week first thing in the morning after getting up and before any caffeine. She should sit at the dining room table or kitchen counter for about 3 to 5 minutes before taking blood pressure.Best to have arm parallel with heart. Record blood pressures for several weeks then review with . Fabiano Liz DO [facility]08-13-2025 NoteHNO ID: [id number] Author: FABIANO LIZ DO Service: ? Author [...] since hadn't had in a year) at [facility] and incidental leukocytosis with WBC count 135.68K. Hgb and platelets normal. Recheck at [facility] 07/21/2022 revealed total white count 131.8 [...] edited and updated as necessary. Fabiano Liz, [facility]08-13-2025 History of Present illness Narrative* Fabiano Liz, DO - 11/04/2024 8:28 AM EDT Diagnosis: 1) Chronic phase CML. [...] since hadn't had in a year) at [facility] and incidental leukocytosis with WBC count 135.68K. Hgb and platelets normal. Recheck at [facility] 07/21/2022 revealed total white count 131.8 [...] her. Further DMR. Benefit of drug outweighs ongoingrisk. -Tolerating Scemblix very well. Reviewed CBC. Decrease [...] necessary. Fabiano Liz DO documented in this encounterAultman Orrville [facility]08-04-2025 History of Present illness Narrative* Mila (Chief Controller Station)Margaret - 10/26/2024 12:20 PM EDT [facility] Medication(s): Scemblix Patient's [...] progressing towards achieving therapeutic goals based on medication- specific laboratory parameters, disease state markers and outcomes. Office/provider notes have been reviewed prior to dispensing the medication. Mechanism Inspector Assessment Patient confirmed: Yes Med/dose confirmed: Yes Supplies needed: No supplies needed Missed doses: No Estimated days supply on hand: 6 Copay amount: 0 Payment confirmed: Yes Delivery method: FedEx Signature required: Waived on patient request Delivery address: [address] [place] [address] Delivery date: 10/29/24 Questions or concerns for the pharmacist?: No Did you have any side effects believed to be related to this medication, that resulted in hospitalization?: No Current Outpatient Medications on File Prior to Visit Medication Sig asciminib (SCEMBLIX) 40 mg tablet Take 2 tablets (80 mg) by mouth once daily on an empty stomach, 1hour before or 2 hours after eating pantoprazole [...] facility-administered medications on file prior to visit. [facility] SPECIALTY CLINICAL ASSESSMENT - HEMATOLOGY [...] G3/4 - Cardio toxicity (ischemic cardiac and SENIOR BENEFITS ANALYST events, thrombotic and embolic events, HF reported) [...] disease progression or unacceptable toxicity. Margaret Zaragoza (Appear) documented in this encounterAultman Orrville Hospital08-04-2025 NoteHNO ID: [id number] Author: JEFFERSON VUONG RPh Service: ? Author [...] medication. Jefferson Vuong, PharmD Clinical Pharmacist, Oncology [facility] P: , F: Pool: P [facility] Pool #: [id number] Mechanism Inspector Assessment Patient confirmed: Yes Med/dose confirmed: Yes Supplies needed: No supplies needed Missed doses: No Estimated days supply on hand: 6 Copay amount: 0 Payment confirmed: Yes Delivery method: FedEx Signature required: Waived on patient request Delivery address: [address] [place] [id number] Delivery date: 10/29/24 Questions or concerns for [...] facility-administered medications on file prior to visit. [facility]TY CLINICAL ASSESSMENT - HEMATOLOGY [...] G3/4 - Cardio toxicity (ischemic cardiac and SENIOR BENEFITS ANALYST events, thrombotic and embolic events, HF reported) [...] disease progression or unacceptable toxicity. Margaret Zaragoza (Chief Controller Station)[facility]07-09-2025 History of Present illness Narrative* Stacia Grady - 09/30/2024 11:39 AM EDT [facility] Medication(s): scemblix Patient's [...] progressing towards achieving therapeutic goals based on medication- specific laboratory parameters, disease state markers and outcomes. Office/provider notes have been reviewed prior to dispensing the medication. Mechanism Inspector Assessment Patient confirmed: Yes Med/dose confirmed: Yes Supplies needed: No supplies needed Missed doses: No Estimated days supply on hand: 1 Copay amount: 0 Payment confirmed: Yes Delivery method: FedEx Signature required: No Delivery address: [facility] [address] [place] [id number] Delivery date: 10/02/24 Questions or concerns for the pharmacist?: No Did you have any side effects believed to be related to this medication, that resulted in hospitalization?: No Current Outpatient Medications on File Prior to Visit Medication Sig asciminib (SCEMBLIX) 40 mg tablet Take 2 tablets (80 mg) by mouth once daily on an empty stomach, 1hour before or [address] eating [address] (PROTONIX) 40 mg tablet Take 1 tablet by mouth once daily. asciminib (SCEMBLIX) 40 mg tablet Take 2 tablets (80 mg) by mouth once daily on an empty stomach, 1hour before or 2 hours after eating allopurinol [...] facility-administered medications on file prior to visit. [facility] CLINICAL ASSESSMENT - HEMATOLOGY [...] G3/4 - Cardio toxicity (ischemic cardiac and SENIOR BENEFITS ANALYST events, thrombotic and embolic events, HF reported) [...] unacceptable toxicity. Stacia Grady documented in this encounterAultman Orrville Hospital07-09-2025 NoteHNO ID: [id number] Author: JEFFERSON VUONG RPh Service: ? Author [...] medication so she is transferring back to [facility] for refills at this time. Jefferson Vuong, PharmD Clinical Pharmacist, Oncology [facility] P: , F: Pool: P [facility] Pool #: [id number] Mechanism Inspector Assessment Patient confirmed: Yes Med/dose confirmed: Yes Supplies needed: No supplies needed Missed doses: No Estimated days supply on hand: 1 Copay amount: 0 Payment confirmed: Yes Delivery method: FedEx Signature required: No Delivery address: [address] [place] [address] Delivery date: 10/02/24 Questions or concerns for [...] facility-administered medications on file prior to visit. [facility]TY CLINICAL ASSESSMENT - HEMATOLOGY [...] G3/4 - Cardio toxicity (ischemic cardiac and SENIOR BENEFITS ANALYST events, thrombotic and embolic events, HF reported) [...] Lipase / Amylas (Mo (more content not included)...[facility] 09-28-2024 Miscellaneous Notes* Telephone Encounter - Marie Malhotra RPh - 09/28/2024 4:29 PM EDT Patient would like to fill Scemblix through [facility], please sign attached prescription as appropriate. Marie Malhotra, PharmD, BCACP, BCOP Clinical Pharmacist, Oncology [facility] P: , F: Pool: P [facility] Pool #: [id number] documented in this encounterAultman Orrville Hospital07-07-2025 Telephone encounter Note * Telephone Encounter - Marie Malhotra RPh - 09/28/2024 4:29 PM EDT Patient would like to fill Scemblix through [facility], please sign attached prescription as appropriate. Marie Malhotra, PharmD, BCACP, BCOP Clinical Pharmacist, Oncology [facility] P: , F: Pool: P [facility] Pool #: [id number] [facility]07-07-2025 Telephone encounter Note* Telephone Encounter - Alisha Romero LPN - 09/28/2024 4:04 PM EDT I reached out to [facility] and to the patient. Transfers are pharmacy to pharmacy, therefore, [facility] will need to reach out to [facility] to initiate the transfer of the Rx. I contacted [facility] and a message will be given to the pharmacist to contact [facility] to transfer the Rx. Dr. Liz is currently out of the office. Alisha Romero LPN [facility]07-07-2025 Miscellaneous Notes* Telephone Encounter - Alisha Romero LPN - 09/28/2024 4:04 PM EDT I reached out to [facility] and to the patient. Transfers are pharmacy to pharmacy, therefore, [facility] will need to reach out to [facility] to initiate the transfer of the Rx. I contacted [facility] and a message will be given to the pharmacist to contact [facility] to transfer the Rx. Dr. Liz is currently out of the office. Alisha Romero LPN * Telephone Encounter - Sona Carlos 09/28/2024 3:43 PM EDT Patient called stating she contacted [facility] to fill prescription Scemblix. She was informed that is not available. They do not know when they would get it in. Patient has 2 days left of medication. She states if we contact [facility] they will be able to transfer the prescription to another location. Patient says that will save her some money. Please advise patient. documented in this encounterAultman Orrville Hospital07-07-2025 Telephone encounter Note * Telephone Encounter - Agustina EdiliaSona - 09/28/2024 3:43 PM EDT Patient called stating she contacted [facility] to fill prescription Scemblix. She was informed that is not available. They do not know when they would get it in. Patient has 2 days left of medication. She states if we contact [facility] they will be able to transfer the prescription to another location. Patient says that will save her some money. Please advise patient. [facility] Work Phone: 1(219) 522-438305-29-2025 Evaluation note* Diagnosis Onset Date Resolution Status Admit Date Lumbar radiculopathy acute August 20, 2024 7:45am Spinal stenosis of lumbar re gion with neurogenic claudication acute August 20, 2024 7:45am Spondylolisthesis, lumbar region acu te August 20, 2024 7:45am [facility] Work Phone: 1(469) 247-307604-22-2025 Radiology Diagnostic study note [facility] Imaging Services [address] [place] [address] L/S Spine Bending Flex/Ext MR#: [id number] Acct: [id number] Name: LIBIA OLIVAS FRIDA Rep #: [id number] : 1975 F 49 From: Roverto Martinez MD PCP: Dr. Krystina Calle, DO Status: REG CLI Study:L/S Spine Bending Flex/Ext Date of Exam : 07/14/24 Exam# [id number] Ordering Dr: Murray Cortez PROCEDURE: L/S SPINE [...] the flexion and extension views. Reading Location: [id number] CC: AZEB Love; Dr. Krystina Calle DO ~ Software Program Manager: Signed [facility]04-09-2025 NoteHNO ID: [id number] Author: FABIANO LIZ DO Service: ? Author [...] since hadn't had in a year) at [facility] and incidental leukocytosis with WBC count 135.68K. Hgb and platelets normal. Recheck at [facility] 07/21/2022 revealed total white count 131.8 [...] starting Scemblix. Plain film was done at [facility] indicating disc space narrowing at L4-L5 [...] taper. P (more content not included)...[facility]04-09-2025 History of Present illness Narrative* Fabiano Liz [...] since hadn't had in a year) at [facility] and incidental leukocytosis with WBC count 135.68K. Hgb and platelets normal. Recheck at [facility] 07/21/2022 revealed total white count 131.8 [...] starting Scemblix. Plain film was done at [facility] indicating disc space narrowing at L4-L5 [...] necessary. Fabiano Liz DO documented in this encounterAultman Orrville Hospital04-04-2025 Telephone encounter Note * Telephone Encounter - Mode Moss - 06/26/2024 3:48 PM EDT Referrals have been faxed to [facility], confirmation scanned into docs. Mode Moss [facility]04-04-2025 Miscellaneous Notes* Telephone Encounter - Mode Moss - 06/26/2024 3:48 PM EDT Referrals have been faxed to [facility], confirmation scanned into docs. Mode Moss * Telephone Encounter - Esha Read - 06/26/2024 2:11 PM EDT Called patient to review XR of spine. Recommend MRI lumbar to further evaluate. Should also get in to see ortho. Pt is agreeable. Will need imaging at [facility]. PSR: Can you please fax orders and get her set up to have MRI lumbar at [facility] please? Referral placedto ORTHO also at [facility]. Esha Read APRN.STUDY SPECIALIST documented in this encounterAultman Orrville Hospital04-04-2025 Telephone encounter Note * Telephone Encounter - Esha Read - 06/26/2024 2:11 PM EDT Called patient to review XR of spine. Recommend MRI lumbar to further evaluate. Should also get in to see ortho. Pt is agreeable. Will need imaging at [facility]. PSR: Can you please fax orders and get her set up to have MRI lumbar at [facility] please? Referral placedto ORTHO also at [facility]. Esha Read APRN.STUDY SPECIALIST [facility]03-28-2025 Radiology Diagnostic study note [facility] Imaging Services [address] [place] [address] Lumbar Spine 2 or 3 Views MR#: [id number] Acct: [id number] Name: LIBIA OLIVAS Rep #: [id number] : 1975 F 49 From: Ezekiel Rock DO PCP: Dr. Krystina Calle DO Status: REG CLI Study:Lumbar Spine 2 or 3 Views Date of Exam: 06/18/24 Exam# [id number] Ordering Dr: Milana harrison,Out o. PROCEDURE: LUMBAR [...] symptomsand abnormal plain film findings. Reading Location: [id number] CC: ESHA READ; Dr. Krystina Calle DO ~ Software Program Manager: Signed [facility]03-27-2025 History of Present illness Narrative* Esha Read - 06/18/2024 10:30 AM EDT Diagnosis: 1) [...] since hadn't had in a year) at [facility] and incidental leukocytosis with WBC count 135.68K. Hgb and platelets normal. Recheck at [facility] 07/21/2022 revealed total white count 131.8 [...] plan for xray to be done at [facility] - also recommended establishing with ortho for chronic spinal issues. - follow up pending XR, otherwise keep future appts as scheduled Esha Read APRN.STUDY SPECIALIST I spent a total of 35 minutes on the date of the service which included preparing to see the patient, [id number] patient care, completing clinical documentation, obtaining and/or [...] evaluation of this patient. documented in this encounterAultman Orrville Hospital03-27-2025 NoteHNO ID: [id number] Author: ESHA READ, ? Service: ? Author [...] since hadn't had in a year) at [facility] and incidental leukocytosis with WBC count 135.68K. Hgb and platelets normal. Recheck at [facility] 07/21/2022 revealed total white count 131.8 [...] plan for xray to be done at [facility] - also recommended establishing with ortho for chronic spinal issues. - follow up pending XR, otherwise keep future appts as scheduled Esha Read APRN.STUDY SPECIALIST I spent a total of 35 minutes on the date of the service which included preparing to see the patient, [id number] patient care, completing clinical documentation, obtaining and/or reviewing separately obtained history, performing a medically appropriate examination, and orderi (more content not included)...[facility]03-24-2025 Telephone encounter Note* Telephone Encounter - Judith Ramires - 06/15/2024 5:03 PM EDT I called and spoke to Libia and schedule her to see Esha Read on 06/18/24 she was schedule already that day for blood pressure check Patient confirmed this date and time Judith Yeboah [facility]03-24-2025 Miscellaneous Notes* Telephone Encounter - Judith Ramires [...] good. Can we set up OV with JAVASCRIPT UI DEVELOPER to assess back pain further? Fabiano Liz DO * Telephone Encounter - Ligia Mtz RN - 06/15/2024 4:12 PM EDT Copied from [facility]: LIPASE 18 13-75 U/L Please note: LIPASE revised reference range effective 22. New Lipase methodology. Expected to produce lower values than the previous assay method. NEW Reference Range: 13 - 75 U/L Ligia Mtz RN * Telephone Encounter - Ligia Mtz RN - 06/15/2024 11:42 AM EDT Patient would like to have lab checked at [facility]. Order faxed. Patient informed of Dr. Liz's response and stated understanding. Ligia Mtz RN * Telephone Encounter - Fabiano Liz DO - 06/15/2024 11:39 AM EDT Thank you. Order filed. If lipase is normal then we will obtain plain film x- rays and schedule an JAVASCRIPT UI DEVELOPER visit. Fabiano Liz DO * Telephone Encounter [...] patient. Ligia Mtz RN documented in this encounterAultman Orrville Hospital03-24-2025 Telephone encounter Note * Telephone Encounter - Fabiano Liz DO - 06/15/2024 4:55 PM EDT That's good. Can we set up OV with JAVASCRIPT UI DEVELOPER to assess back pain further? Fabiano Liz DO [facility]03-24-2025 Telephone encounter Note* Telephone Encounter - Ligia Mtz RN - 06/15/2024 4:12 PM EDT Copied from [facility]: LIPASE 18 13-75 U/L Please note: LIPASE revised reference range effective 22. New Lipase methodology. Expected to produce lower values than the previous assay method. NEW Reference Range: 13 - 75 U/L Ligia Mtz RN [facility]03-24-2025 Telephone encounter Note* Telephone Encounter - Ligia Mtz RN - 06/15/2024 11:42 AM EDT Patient would like to have lab checked at [facility]. Order faxed. Patient informed of Dr. Liz's response and stated understanding. Ligia Mtz RN [facility]03-24-2025 Telephone encounter Note* Telephone Encounter - Fabiano Liz DO - 06/15/2024 11:39 AM EDT Thank you. Order filed. If lipase is normal then we will obtain plain film x- rays and schedule an JAVASCRIPT UI DEVELOPER visit. Fabiano Liz DO [facility]03-24-2025 Telephone encounter Note* Telephone Encounter - Ligia Mtz RN - 06/15/2024 11:[address] Liz would like to check a lipase today. Called patient, no answer, left a VM requesting a call back. Order pended. Ligia Mtz RN [facility]03-24-2025 Telephone encounter Note* Telephone Encounter - Ligia [...] if unable to comply. Ligia Mtz RN [facility]03-21-2025 Telephone encounter Note* Telephone Encounter - Ligia Mtz RN - 06/12/2024 12:57 PM EDT ORAL ANTI-CANCER AGENTS FOLLOW-UP PHONE CALL/VISIT Called patient, no answer, left a VM requesting a call back from patient. Ligia Mtz RN [facility]02-19-2025 Telephone encounter Note* Telephone Encounter - Alisha Romero LPN - 05/13/2024 11:48 AM EST Patient states she is taking potassium 10 meq, 2 tabs, once a day (20 meq). She is only taking Lasix prn and it's been a while since she's used that. Alisha Romero LPN [facility]02-19-2025 Miscellaneous Notes* Telephone Encounter - Alisha Romero LPN - 05/13/2024 11:48 AM EST Patient states she is taking potassium 10 meq, 2 tabs, once a day (20 meq). She is only taking Lasix prn and it's been a while since she's used that. Alisha Romero LPN documented in this encounterAultman Orrville Hospital02-19-2025 Miscellaneous Notes* Telephone Encounter - Kathrine Ji LPN - 05/13/2024 8:39 AM EST Refill request received from [facility] Next follow up 11/04/24 documented in this encounterAultman Orrville Hospital02-19-2025 Telephone encounter Note * Telephone Encounter - Kathrine Ji LPN - 05/13/2024 8:39 AM EST Refill request received from [facility] Next follow up 11/04/24 [facility]02-11-2025 Telephone encounter Note* Telephone Encounter - Ligia [...] teaching topics as needed. Ligia Mtz RN [facility]02-11-2025 Miscellaneous Notes* Telephone Encounter - Ligia [...] needed. Ligia Mtz RN documented in this encounterAultman Orrville Hospital02-04-2025 History of Present illness Narrative* Mila (Appear)Margaret - 04/28/2024 7:58 AM EST [facility] received prescription(s) for Scemblix [address] Liz's office. Benefits investigation was conducted, indicating that a prior authorization is required by patient's insurance plan with [employer]. Encounter will be updated once prior authorization has been submitted by [facility]. Margaret Zaragoza [facility] documented in this encounterAultman Orrville Hospital02-04-2025 NoteHNO ID: [id number] Author: JEFFERSON VUONG RPh Service: ? Author Type: Pharmacist Type: Progress Notes Filed: 06/01/2024 11:47 Note Text: [facility] received prescription(s) for asciminib from Dr. Liz's office. Benefits investigation was conducted, indicating that a prior authorization is required. PA was approved with details listed below: Plan Name: MedBen / Rx Benefits Commercial PA reference number: Prior Auth (EOC) ID: [id number] Approval Dates: 05/27/24 - 05/26/25 Pt's copay [...] of gallbladder 09/07/2009 Chau Preston MD No Mechanism Inspector Assessment Patient confirmed: Yes Med/dose confirmed: Yes Supplies needed: Welcome packet Missed doses: No Estimated days supply on hand: 0 Next cycle/dose due: (Per Dr. Liz's discretion) Copay amount: 30 Copay form of payment: (Copay Card) Payment confirmed: Yes Delivery method: FedEx Signature required: Waived on patient request Delivery address: [address] [place], [place] [address] Delivery date: 06/02/24 Questions or concerns for the pharmacist?: Yes Patient questions/concerns: Medication cost, Co-pay/assistance programs, Medication dose, Medication route, Medication storage, Side effects, Delivery Did you have any side effects believed to be related to this medication, that resulted in hospitalization?: No [facility] CLINICAL ASSESSMENT - HEMATOLOGY [...] G3/4 - Cardio toxicity (ischemic cardiac and SENIOR BENEFITS ANALYST events, thrombotic and embolic events, HF reported) - GI Toxici (more content not included)...[facility]02-04-2025 NoteHNO ID: [id number] Author: MARIE MALHOTRA RPh Service: ? Author Type: Pharmacist Type: Progress Notes Filed: 06/09/2024 16:42 Note Text: [facility] Discontinuation Assessment: Disease group: Oral Oncology/Hematology Medication: SCEMBLIX ORAL Discontinue reason: Change of pharmacy Chart notes indicate patient is filling through [facility] pharmacy, office already sent rx. No further follow-up required from [facility]. Marie Malhotra PharmD, BCACP, BCOP Clinical Pharmacist, Oncology [facility] P: , F: Pool: P [facility] Pool #: [id number]2025 NoteHNO ID: [id number] Author: ?, ?, ? Service: ? Author Type: ? Type: Progress Notes Filed: 04/28/2024 08:03 Note Text: [facility] received prescription(s) for Scemblix [address] Liz's office. Benefits investigation was conducted, indicating that a prior authorization is required by patient's insurance plan with [employer]- [employer]. Encounter will be updated once prior authorization has been submitted by [facility]. Margaret Zaragoza [facility]02-04-2025 NoteHNO ID: [id number] Author: MARIE MALHOTRA [facility] Service: ? Author Type: Pharmacist Type: Progress Notes Filed: 05/28/2024 09:33 Note Text: [facility] received prescription(s) for asciminib (Scemblix) from Agusto's office. Benefits investigation was conducted, indicating that a prior authorization is required. PA was initiated and pending review. Plan Name: MedBen / Rx Benefits Commercial (Prompt PA portal: [email or web address] Case: Prior Auth (EOC) ID: [id number] Timeline: Urgent Esperanza Seay PharmD, BCPS, BCOP Clinical Coordinator, Specialty Pharmacy [facility] P: , F: Pool: P [facility] Pool #: [id number] Addendum May 28, 2024 5:47 AM : PA approved but unclear for how long. Will await letter and if not received by next week this pharmacist will check chart and call for dates. Esperanza Seay PharmD, BCPS, BCOP Clinical Coordinator, Specialty Pharmacy [facility] P: , F: Pool: P [facility] Pool #: [id number] Marie Malhotra, PharmD, BCACP, BCOP Clinical Pharmacist, Oncology [facility] P: , F: Pool: P [facility] Pool #: [id number]25 NoteHNO ID: [id number] Author: FABIANO LIZ, DO Service: ? Author [...] since hadn't had in a year) at [facility] and incidental leukocytosis with WBC count 135.68K. Hgb and platelets normal. Recheck at [facility] 07/21/2022 revealed total white count 131.8 [...] edited and updated as necessary. Fabiano Liz, [facility]02-03-2025 History of Present illness Narrative* Fabiano Liz, [...] since hadn't had in a year) at [facility] and incidental leukocytosis with WBC count 135.68K. Hgb and platelets normal. Recheck at [facility] 07/21/2022 revealed total white count 131.8 [...] necessary. Fabiano Liz DO documented in this encounterAultman Orrville [facility]12-02-2024 Evaluation note* Diagnosis Onset Date Resolution Status Admit Date Climacteric acute February 24, 2024 9:00am Encounter for routine gynecological examination noneactive [facility] 2023 9:00am [facility] Work Phone: 1(825) 559-181611-07-2024 History of Present illness Narrative* Devika Brush APRN.STUDY SPECIALIST - 01/30/2024 8:15 AM EST Chief Complaint [...] since hadn't had in a year) at [facility] and incidental leukocytosis with WBC count 135.68K. Hgb and platelets normal. Recheck at [facility] 07/21/2022 revealed total white count 131.8 [...] Lymph 1.00 - 4.00 k/uL 1.59 1.54 Sawyer% % 5.5 5.3 Abs Sawyer <0.87 k/uL 0.52 0.49 Eosin% % 1.6 [...] visit. Devika Brush APRN.[place] documented in this encounterAultman Orrville Hospital08-19-2024 Telephone encounter Note * Telephone Encounter [...] Reinoso LPN November 11, 2023 7:53 AM [facility]08-19-2024 Miscellaneous Notes* Telephone Encounter - Gia [...] 11, 2023 7:53 AM documented in this encounterAultman Orrville Hospital08-12-2024 Telephone encounter Note * Telephone Encounter - Alisha Romero LPN - 11/04/2023 3:26 PM EDT Per OV note 10/30/2023- Intolerant to oral iron. Iron study result received from [facility]. Patient is iron deficient. Patient prefers to have her iron infusions at [facility] d/t insurance. Orders and demographics faxed to [facility] Infusion Suite. Patient is aware. Alisha Romero LPN [facility]08-12-2024 Miscellaneous Notes* Telephone Encounter - Alisha Romero LPN - 11/04/2023 3:26 PM EDT Per OV note 10/30/2023- Intolerant to oral iron. Iron study result received from [facility]. Patient is iron deficient. Patient prefers to have her iron infusions at [facility] d/t insurance. Orders and demographics faxed to [facility] Infusion [facility]. Patient is aware. Alisha Romero LPN documented in this encounterAultman Orrville Hospital08-07-2024 History of Present illness Narrative* Fabiano Liz DO - 10/30/2023 8:39 AM EDT Diagnosis: 1) [...] since hadn't had in a year) at [facility] and incidental leukocytosis with WBC count 135.68K. Hgb and platelets normal. Recheck at [facility] 07/21/2022 revealed total white count 131.8 [...] currently. SKIN: No jaundice. LABS: Latest Ref Rn 10/23/2023 WBC 3.70 - 11.00 k/uL 9.47 [...] Abs Lymph 1.00 - 4.00 k/uL 1.59 Sawyer% % 5.5 Abs Sawyer <0.87 k/uL 0.52 Eosin% % 1.6 Abs [...] which included preparing to see the patient, [id number] patient care, completing clinical documentation, obtaining and/or reviewing separately obtained history, performing a medically appropriate examination, counseling and educating the pat ient/family/caregiver, ordering medications, tests, or procedures, communicating with other HCPs (not separately reported), and communicating results to the patient/family/caregiver. Fabiano Liz DO documented in this encounterAultman Orrville Hospital07-11-2024 Telephone encounter Note * Telephone Encounter [...] If using Lasix BID Devika Brush APRN.CNP [facility]07-11-2024 Miscellaneous Notes* Telephone Encounter - Devika [...] status of refills to be sent to [facility] Pharm. * Telephone Encounter - Alisha Romero LPN - 09/30/2023 10:53 AM EDT It doesn't look like we prescribe the levothyroxine. Alisha Romero LPN documented in this encounterAultman Orrville Hospital07-11-2024 Telephone encounter Note * Telephone Encounter - Alisha Romero LPN - 10/03/2023 10:06 AM EDT Please send Rx. Alisha Romero LPN [facility]07-11-2024 Telephone encounter Note* Telephone Encounter - Sona Carlos - 10/03/2023 9:50 AM EDT Patient calling on status of refills to be sent to [facility] Pharm. [facility]07-08-2024 Telephone encounter Note* Telephone Encounter - Alisha Romero LPN - 09/30/2023 10:53 AM EDT It doesn't look like we prescribe the levothyroxine. Alisha Romero LPN [facility]05-07-2024 Telephone encounter Note* Telephone Encounter - Devika Brush APRN.CNP - 07/30/2023 12:58 PM EDT Please schedule follow up OV with Dr. Liz in 3 months with same labs as on 07/16. Thank you. Devika Brush APRN.STUDY SPECIALIST [facility]05-07-2024 Miscellaneous Notes* Telephone Encounter - Devika Brush APRN.CNP - 07/30/2023 12:58 PM EDT Please schedule follow up OV with Dr. Liz in 3 months with same labs as on 07/16. Thank you. Devika Brush APRN.CNP documented in this encounterAultman Orrville Hospital05-07-2024 Telephone encounter Note * Telephone Encounter - Ligia Mtz RN - 07/30/2023 12:28 PM EDT See MC message. Ligia Mtz RN [facility]05-07-2024 Miscellaneous Notes* Telephone Encounter - Ligia [...] out of pocket for pt. Devika Brush APRN.[place] documented in this encounterAultman Orrville Hospital05-06-2024 Telephone encounter Note * Telephone Encounter - Devika Brush APRN.CNP - 07/29/2023 2:59 PM EDT Pt. prefers [facility] for future refills of bosutinib. Devika Brush APRN.CNP [facility]05-06-2024 Miscellaneous Notes* Telephone Encounter - Devika Brush APRN.CNP - 07/29/2023 2:59 PM EDT Pt. prefers [facility] for future refills of bosutinib. Devika Brush APRN.CNP documented in this encounterAultman Orrville Hospital05-06-2024 Telephone encounter Note * Telephone Encounter - Devika Brush APRN.CNP - 07/29/2023 2:34 PM EDT Left VM for pt. re:her labs last week and discussing plan with Dr. Liz. Advised pt. to call/my chart back with her decision on keeping current treatment or pricing Sprycel. Current therapy is very expensive out of pocket for pt. 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 Hgb and platelets normal. Recheck at [facility] 07/21/2022 revealed total white count 131.8 [...] 1.00 - 4.00 k/uL 1.86 1.53 1.66 Sawyer% % 6.9 5.5 7.2 Abs Sawyer <0.87 k/uL 0.59 0.36 0.50 Eosin% % [...] visit. Devika Brush APRN.[place] documented in this encounterAultman Orrville Hospital04-22-2024 Telephone encounter Note * Telephone Encounter [...] need to notify patient. Gia Reinoso LPN [facility]04-22-2024 Miscellaneous Notes* Telephone Encounter - Gia [...] patient. Gia Reinoso LPN documented in this encounterAultman Orrville Hospital03-20-2024 Miscellaneous Notes* Telephone Encounter - Ligia [...] understanding. Ligia Mtz RN documented in this encounterAultman Orrville Hospital03-19-2024 History of Present illness Narrative* Bee Patterson PA-C - 06/11/2023 2:18 PM EDT This note was created using SmarTots. Subjective Libia Olivas is a 48 year old female. [...] ROUTINE Bee Patterson PA-C documented in this encounterAultman Orrville Hospital03-19-2024 Miscellaneous Notes* Telephone Encounter - Ligia Mtz RN - 06/11/2023 8:54 AM EDT Care Coordination Triage Note [facility] Situation: Patient reports Cough/Respiratory Concerns/SOB, Fever, [...] 11, 2023 9:01 AM documented in this encounterAultman Orrville Hospital03-11-2024 Miscellaneous Notes* Telephone Encounter - Gia Reinoso LPN - 06/03/2023 8:50 AM EDT PA obtained for Bosulif 400 mg daily. 05/31/2023 thru 05/29/2024 Gia Reinoso LPN documented in this encounterAultman Orrville Hospital03-07-2024 Miscellaneous Notes* Telephone Encounter - Fabiano [...] [facility]. Alisha Romero LPN documented in this encounterAultman Orrville Hospital02-02-2024 History of Present illness Narrative* Ángela [...] PATIENT PRESENTS WITH AN IMPLANTABLE OR ATTACHED [employer]DR[employer] ATTENDANT: No RADIOLOGY DEPARTMENT: General X-ray: Exam(s) Completed: Chest X-Ray PERIPHERAL IV DATA: Not applicable SIGNED BY: RT Stanford(R) April 26, 2023 9:38 AM documented in this encounterAultman Orrville Hospital02-02-2024 History of Present illness Narrative* Fabiano [...] since hadn't had in a year) at [facility] and incidental leukocytosis with WBC count 135.68K. Hgb and platelets normal. Recheck at [facility] 07/21/2022 revealed total white count 131.8 [...] visual acuity rather abruptly--about 2 weeks. 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 No structural abnormality of eye. Got new Rx and okay now. Legs well end of day. 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 Down in the mornings. Diarrhea off [...] Abs Lymph 1.00 - 4.00 k/uL 1.53 Sawyer% % 5.5 Abs Sawyer <0.87 k/uL 0.36 Eosin% % 2.1 Abs [...] necessary. Fabiano Liz DO documented in this encounterAultman Orrville Hospital11-13-2023 Miscellaneous Notes* Telephone Encounter - Gia [...] response. Fabiano Liz DO documented in this encounterAultman Orrville Hospital10-06-2023 Miscellaneous Notes* Telephone Encounter - Alisha Romero LPN - 12/28/2022 1:07 PM EDT Patient notified that Rx was sent in to [facility] in [place] as requested. Alisha Romero LPN documented in this encounterAultman Orrville Hospital10-06-2023 Miscellaneous Notes* Telephone Encounter - Gia [...] patient. Gia Reinoso LPN documented in this encounterAultman Orrville Hospital08-02-2023 Miscellaneous Notes* Telephone Encounter - Alisha Romero LPN - 10/24/2022 9:39 AM EDT Order and demographics faxed to [facility]. Alisha Romero LPN * Telephone Encounter - Sona Carlos - 10/24/2022 9:32 AM EDT Message relayed to patient. She is requesting order to be faxed to [facility] for Echo * Telephone Encounter - Alisha Romero LPN - 10/24/2022 8:54 AM EDT Message left on patient's VM asking her to contact the office. [employer] message also sent. Alisha Romero LPN * [...] to further evaluate. Can be done at [facility] if better for her. Still awaiting molecular testing which may take several more days. Fabiano Liz DO documented in this encounterAultman Orrville Hospital07-31-2023 History of Present illness Narrative* Fabiano [...] since hadn't had in a year) at [facility] and incidental leukocytosis with WBC count 135.68K. Hgb and platelets normal. Recheck at [facility] 07/21/2022 revealed total white count 131.8 [...] 4.00 k/uL 9.41 (H) 1.48 1.55 1.83 Sawyer% % 8.0 10.6 9.5 7.1 Abs Sawyer <0.87 k/uL 12.55 (H) 0.75 0.68 0.60 Eosin% % 5.0 6.9 1.8 3.2 Abs Eosin <0.46 k/uL 7.84 (H) 0.49 (H) 0.13 0.27 Baso% % 6.0 1.7 1.1 1.0 Abs Baso <0.11 k/uL 9.41 (H) 0.12 (H) 0.08 0.08 [place]% % 6.0 Myelo% % 10.0 Blast <=0.0 [...] which included preparing to see the patient, [id number] patient care, completing clinical documentation, obtaining and/or reviewing separately obtained history, performing a medically appropriate examination, counseling and educating the pat ient/family/caregiver, ordering medications, tests, or procedures, communicating with other HCPs (not separately reported), and communicating results to the patient/family/caregiver. Fabiano Liz DO documented in this encounterAultman Orrville Hospital06-29-2023 Miscellaneous Notes* Telephone Encounter - Ligia Mtz RN - 09/20/2022 4:29 PM EDT Patient informed of Dr. Liz's verbal response, stated understanding. Patient informed to contact her dentist if she has any worsening s/s. Patient stated understanding. Ligia Mtz RN documented in this encounterAultman Orrville Hospital06-08-2023 Miscellaneous Notes* Telephone Encounter - Alisha [...] CMP. Fabiano Liz DO documented in this encounterAultman Orrville Hospital06-06-2023 Miscellaneous Notes* Telephone Encounter - Ligia tMz RN - 08/28/2022 4:02 PM EDT Patient [...] [facility] Patient stated she is prone to yeast infections if she goes on antibiotics;per jesu diflucan and Bosutinib should be avoided. Patient advised to pick pulling machine tender monistat (if prescribed antibiotics), increase probiotics and space out 2 hours apart from antibiotics, and eat yogurt . Patient stated understanding. This nurse will review express care notes tomorrow. Ligia Mtz RN * Telephone Encounter - Ligia Mtz RN - 08/27/2022 4:05 PM EDT [facility] Care Coordination FOLLOW-UP NOTE Patient identified by [...] Mtz RN - 08/23/2022 4:32 PM EDT [facility] Care Coordination FOLLOW-UP NOTE Patient identified by [...] RN August 23, 2022 documented in this encounterAultman Orrville Hospital06-05-2023 History of Present illness Narrative* Beatris [...] 27, 2022 5:29 PM documented in this encounterAultman Orrville Hospital06-05-2023 History of Present illness Narrative* Lori Solano APRN.STUDY SPECIALIST - 08/27/2022 5:14 PM EDT This note was created using Poppinriter. Subjective Libia Olivas is a 47 year [...] been using Zyrtec She is leaving for [place] this . The history is provided by the patient. No foreign languages professor was used. Cough This is a new [...] visualized and normal. Hearing improved. Lori Solano APRN.STUDY SPECIALIST documented in this encounterAultman Orrville Hospital05-31-2023 Miscellaneous Notes* Telephone Encounter - Sona Yeboah - 08/22/2022 3:10 PM EDT Scheduled appts [...] scheduled andalso an OV. Thank you. Ligia tMz RN * Telephone Encounter - Ligia Mtz [...] Sasha Bullard * Telephone Encounter - Ligia ene RN - 08/17/2022 1:00 PM EDT ORAL [...] comply. Ligia Mtz RN documented in this encounterAultman Orrville Hospital05-11-2023 Miscellaneous Notes* Telephone Encounter - Fabiano Liz DO - 08/02/2022 10:50 PM EDT The following approved medication requests have been transmitted electronically. Requested Prescriptions Signed Prescriptions Disp Refills bosutinib (BOSULIF) 400 mg tablet 30 tablet 5 Sig: Take 1 tablet (400 mg) by mouth once daily with food. Authorizing Provider: FABIANO LIZ DO * Telephone Encounter - Vilma Naqvi RP - 08/02/2022 2:22 PM EDT Prior authorization was approved for Bosulif. Plan Name: [employer] [place] reference number: [id number] Approval Dates: 07/01/2022 - 07/31/2023 However, s/he is required to use [facility] to fill this medication. Will queue prescription(s) to go to designated specialty pharmacy. For reference, their pharmacy phone number is [phone]. No further action by [facility] Specialty. Vilma Naqvi, PharmD Clinical Pharmacist, Oncology [facility] P: , F: Pool: P CC [facility] Pool #: [id number] documented in this encounterAultman Orrville Hospital05-04-2023 History of Present illness Narrative* Margaret Zaragoza (Chief Controller Station) - 07/26/2022 2:52 PM EDT [facility] received prescription(s) for Bosulif from Dr. Liz's office. Benefits investigation was conducted, indicating that a prior authorization is required by patient's insurance plan with [employer]. Encounter will be updated once prior authorization has been submitted by [facility]. Margaret Zaragoza [facility] documented in this encounterAultman Orrville Hospital05-04-2023 Miscellaneous Notes* Telephone Encounter - Gia [...] pharmacy. Fabiano Liz DO documented in this encounterAultman Orrville Hospital05-03-2023 Miscellaneous Notes* Telephone Encounter - Gia [...] office. Gia Marsh LPN documented in this encounterAultman Orrville Hospital05-03-2023 Procedure note* Fabiano Liz DO - 07/25/2022 1:13 PM EDTAssociated Order(s): BONE MARROW BIOPSY Post-Procedure Diagnose(s): Bandemia BEDSIDE PROCEDURE NOTE BONE MARROW BIOPSY Performed by: Fabiano Liz DO Authorized by: Fabiano Liz DO Where was Patient When this Procedure was Performed [facility] Informed Consent Consent Obtained: Written Mozier Protocol A moment to CARE was completed. [...] Site: Right posterior sperior iliac crest . OnCTimeliner biopsy system was used. Using aseptic technique, [...] 2022 TIME: 1:13 PM documented in this encounterAultman Orrville Hospital05-03-2023 History of Present illness Narrative* Claudia Foote RN - 07/25/2022 1:00 PM EDT Pt discharged to home with after BMBX with dry sterile dressing in place. No drainage noted. Post-procedure care reviewed with patient. Pt to call with any complaints of redness, swelling, increased or unresolved pain, bleeding, chills, bruising, and/or fever. Pt verbalized understanding. Claudia Foote RN documented in this encounterAultman Orrville Hospital05-03-2023 History of Present illness Narrative* Fabiano [...] since hadn't had in a year) at [facility] and incidental leukocytosis with WBC count 135.68K. Hgb and platelets normal. Recheck at [facility] 07/21/2022 revealed total white count 131.8 [...] No jaundice or rash. No petechiae. NEUROLOGIC: care professional II-XII are grossly intact. No focal motor [...] Lymph 1.00 - 4.00 k/uL 4.22 (H) Sawyer% % 11.0 Abs Sawyer <0.87 k/uL 15.49 (H) Eosin% % 2.0 Abs Eosin <0.46 k/uL 2.82 (H) Baso% % 1.0 Abs Baso <0.11 k/uL 1.41 (H) [place]% % 6.0 Myelo% % 17.0 Blast <=0.0 [...] with left shift. . . . Pathologist (STFREV) Reviewed by Virginie Agosto MD LD 135 [...] her recent CBC and differential done at [facility] and discussed the work- up with [...] which included preparing to see the patient, cpzv-bm-zgeb patient care, completing clinical documentation, obtaining and/or reviewing separately obtained history, performing a medically appropriate examination, counseling and educating the pat ient/family/caregiver, communicating with other HCPs (not separately reported), independently interpreting results (not separately reported), and communicating results to the patient/family/caregiver. Fabiano Liz DO documented in this encounterAultman Orrville Hospital05-02-2023 Miscellaneous Notes* Telephone Encounter - Alisha Romero LPN - 07/24/2022 8:53 AM EDT Patient read [employer] message. Alisha Romero LPN * Telephone Encounter - Fabiano Liz DO - 07/23/2022 6:06 PM EDT Her uric acid is elevated. Please advise her to start allopurinol 300 mg tablet once daily beginning tomorrow if possible. Fabiano Liz DO documented in this encounterAultman Orrville Hospital05-01-2023 Miscellaneous Notes* Telephone Encounter - Alisha [...] Romero LPN * Telephone Encounter - Judith Yeboah - 07/23/2022 11:12 AM EDT , Dr.Lisa Calle called wanting to speak to you about Pepper. She stated they had sent over a new patient referral, our nurses have requested additional information from their office. Krystina is requesting a call back to her on her cell phone when you are able at [phone] Judith Yeboah documented in this encounterAultman Orrville HospitalEvaludelaware hospital for the chronically ill noteNo assessment information availableWWooster Community [facility] Work Phone: Evaluation note* Diagnosis Onset Date Resolution Status BMI 39.0-39.9,adult acute Climacteric acute Other obesity acute Encounter for routine gynecological examination noneactive [facility] Work Phone: Evaluation note* Diagnosis Onset Date Resolution Status BMI 39.0-39.9,adult acute Climacteric acute Other obesity acute Encounter for routine gynecological examination noneactive BMI 39.0-39.9,adult acute Climacteric acute GERD (gastroesophageal reflux disease) acute Other obesity acute [facility] Work Phone: Evaluation note* Diagnosis Onset Date Resolution Status Climacteric acute GERD (gastroesophageal reflux disease) acute Other obesity acute Other obesity acute BMI 37.0-37.9, adult acute GERD (gastroesophageal reflux disease) acute Other obesity acute [facility] Work Phone: Evaluation note* Diagnosis Other elevated white blood cell (WBC) count- Primary CML (chronic myelocytic leukemia) (HCC) Chronic myeloid leukemia, without mention of having achieved remission documented [facility]* Diagnosis Onset Date Resolution Status Other obesity acute BMI 37.0-37.9, adult acute GERD (gastroesophageal reflux disease) acute Other obesity acute BMI 37.0-37.9, adult acute GERD (gastroesophageal reflux disease) acute Hypercholesterolemia acute Other obesity acute [facility] Work Phone: Evaluation note* Diagnosis CML [...] Date Resolution Status Breast mass, right acute [facility] Work Phone: Evaluation note* Diagnosis CML [...] Diagnosis Onset Date Resolution Status Climacteric acute [id number] acute [facility] Work Phone: Evaluation note* Diagnosis CML [...] having achieved remission documented in this encounter [facility]* Diagnosis Spinal stenosis of lumbar region, unspecified whether neurogenic claudication present- Primary [facility] CML (chronic myelocytic leukemia) (HCC)- Primary Chronic myeloid leukemia, without mention of having achieved remission Gastroesophageal reflux disease, unspecified whether esophagitis present Sciatica, right side [facility] Diagnosis CML (chronic myelocytic leukemia) (HCC)- Primary Chronic myeloid leukemia, without mention of having achieved remission [facility] Diagnosis CML (chronic myelocytic leukemia) (HCC)- Primary Chronic myeloid leukemia, without mention of having achieved remission [facility] Diagnosis CML (chronic myelocytic leukemia) (HCC)- Primary Chronic myeloid leukemia, without mention of having achieved remission Microcytic anemia Iron deficiency anemia, unspecified Gastroesophageal reflux disease, unspecified whether esophagitis present [facility] Diagnosis CML (chronic myelocytic leukemia) (HCC)- Primary Chronic myeloid leukemia, without mention of having achieved remission Mediastinal lymphadenopathy Enlargement of lymph nodes [facility] Discharge instructionsAdditional Instructions Follow-up with your doctors in outpatient setting showed them your CT report. Take the blood pressure medication as prescribed. Return with worsening symptoms or any concerns. Rotate Tylenol and ibuprofen [id number] for headache control when you do this you can take something every 3 hours max dose of ibuprofen in 24 hours 3200 mg max dose Tylenol in 24 hours 4000 mg.[facility] Work Phone: Reason for referral (narrative)* Outpatient Procedure (Routine) - Pending Review Specialty Diagnoses / Procedures Referred By Contac t Referred [facility] Diagnoses CML (chronic myeloid leukemia) (HCC) Encounter for monitoring cardiotoxic drug therapy Procedures ECHO ECHO TTHRC R-T 2D W/WOM-MODE COMPL SPEC&COLR D Fabiano Liz, DO [address] [place] [address] [facility] [place] [address] [place] [address] Referral ID Status Reason Start Date Expiration Date Visits Requested Visits Authorized [id number] Pending Review Auto-Generat ed Referral 10/24/2022 10/24/2023 1 1 [facility] for referral (narrative)* Outpatient Procedure (Routine) - Closed Specialty Diagnoses / Procedures Referred By Contac t Referred To [facility] Diagnoses CML (chronic myelocytic leukemia) (HCC) Procedures ECHO ECHO TTHRC R-T 2D W/WOM-MODE COMPL SPEC&COLR D Fabiano Liz, DO [address] [place] [address] [facility] [place] [email or web address] [place] [address] Referral ID Status Reason Start Date Expiration Date V isits Requested Visits Authorized [id number] Closed Auto-Generate d Referral 04/26/2023 03/24/2024 1 1 * Outpatient Procedure (Routine) - Closed Specialty Diagnoses / Procedures Referred By Contac t Referred [facility] Diagnoses CML (chronic myelocytic leukemia) (HCC) Dyspnea and respiratory abnormalities Procedures ECG COMPLETE ECG ROUTINE ECG W/LEAST 12 LDS W/I&R Fabiano Liz DO [address] [place] [address] [facility] [place] [address] [place] [address] Referral ID Status Reason Start Date Expiration Date V isits Requested Visits Authorized [id number] Closed Auto-Generate d Referral 04/26/2023 04/25/2024 1 1 [facility] for referral (narrative)* Diagnostic Procedure Only (Routine) - Closed Specialty Diagnoses / Procedures Referred By Contac t Referred To Contact XR IMAGING Diagnoses CML (chronic myelocytic leukemia) (HCC) Procedures XR FEMUR GENERAL 2V AP/LAT LEFT RADIOLOGIC EXAMINATION FEMUR MINIMUM 2 VIEWS Devika Brush APRN.STUDY SPECIALIST [address] [place] [address] [place] [address] Referral ID Status Reason Start Date Expiration Date V isits Requested Visits Authorized [id number] Closed Auto-Generate d Referral 07/25/2023 08/23/2024 1 [facility]No reason for referral information availableWWooster [facility] Work Phone: Reason for visit Narrative* Diagnostic Procedure Only (Routine) - Closed Specialty Diagnoses / Procedures Referred By Contac t Referred To Contact XR IMAGING Diagnoses CML (chronic myelocytic leukemia) (HCC) Procedures XR FEMUR GENERAL 2V AP/LAT LEFT RADIOLOGIC EXAMINATION FEMUR MINIMUM 2 VIEWS Devika Brush APRN.CNP [address] [place] [address] [place] [address] Referral ID Status Reason Start Date Expiration Date V isits Requested Visits Authorized [id number] Closed Auto-Generate d Referral 07/25/2023 08/23/2024 1 1 [facility] Family History No Family History Records Found Relationship Condition Age at Onset Recorded Date/T brad Not Specified Myocardial infarction Unknown Hypertension Unknown Disorder of thyroid Unknown father Coronary artery disease Unknown Diabetes mellitus Unknown Advance Directives No Advanced Directives Records Found Advance Directive Response Recorded Date/ Time Advance Directives No October 01 2:28pm Living Will Yes May 08 12:54pm Power of Qa Software Tester Yes May 08, 2019 12:54pm Advance Directive Response Recorded Date/ Time Advance Directives No October 01 1:28pm Living Will Yes May 08 11:54am Power of Qa Software Tester Yes May 08, 2019 11:54am Advance Directive Response Recorded Date/ Time Advance Directives No April 5:39pm Living Will Yes May 21 5:39pm Power of Qa Software Tester Yes May 21, 2022 5:39pm Advance Directive Response Recorded Date/ Time Living Will Yes October 30, 2023 10:59am Do you have a Healthcare Power of Qa Software Tester? Yes October 30, 2023 10:59am Advance Directives No April 5:39pm Advance Directive Response Recorded Date/ Time Advance Directives No April 5:39pm Advance Directive Response Recorded Date/ Time Do you have a Healthcare Power of Qa Software Tester? Yes November 28, 2024 12:39pm Advance Directives No April 5:39pm Chief Complaint and Reason for Visit Chief Complaint ABDOMINAL PAIN Chief Complaint LUMBAR SPONDY SCREENING Annual (CLOUD SYSTEMS ADMINISTRATOR) Reason for Visit BMI 39.0-39.9,adult Climacteric Other obesity Encounter for routine gynecological examination Chief Complaint LUMBAR SPONDY SCREENING Annual (CLOUD SYSTEMS ADMINISTRATOR) E ORDER 3 WK FU, weight loss Reason for Visit BMI 39.0-39.9,adult Climacteric Other obesity Encounter for routine gynecological examination BMI 39.0-39.9,adult Climacteric GERD (gastroesophageal reflux disease) Other obesity Chief Complaint LUMBAR SPONDY SCREENING Annual (CLOUD SYSTEMS ADMINISTRATOR) E ORDER 3 WK FU, weight loss [...] Visit Breast mass, right Chief Complaint Annual (CLOUD SYSTEMS ADMINISTRATOR) CML Reason for Visit Climacteric [id number] Chief Complaint Admit Date Annual (CLOUD SYSTEMS ADMINISTRATOR) February 24, 2024 9 :00am Reason for [...] 2024 7:45am Spondylolisthesis, lumbar region July 7:45am Chief Complaint Admit Date SPINAL STENOSIS August 10, 2024 4:02p m LUMBAR SPINE August 20, 2024 7:45a m [employer] October 29, 2024 8:1 7am BACK. RX HERE November 19, 2024 11 :00am HYPERTENSION November 28, 2024 12:14pm Chief Complaint Admit Date EMPLOYEE [employer]S October 29, 2024 8:1 7am HYPERTENSION November 28, 2024 12:14pm HX OF CML December 04, 2024 8:09am BACK. RX HERE December 16, 2024 9:30am Summary Purpose Health Concerns Infection Onset Date [...] section and content) DATE CREATED AUTHOR 01/03/2022 [facility] DATE CREATED AUTHOR AUTHOR'S ORGANIZ ATION 01/29/[address] [facility] DATE CREATED AUTHOR AUTHOR'S ORGANIZ ATION 01/30/2025 [facility] Care Teams (unrecognized sec tion [...] Provider, Referring P rovider Active Mee Conroy JAVASCRIPT UI DEVELOPER, JAVASCRIPT UI DEVELOPER-C Attending Provider Active Team Status: Active Member Role Status Dates Dr. Krystina Calle DO Primary Care Provider Active Dr. Anabelle Peña MD Attending Provider Activ e Dr. Monie Mckeon MD Referring Provider Active Team Status: Inactive Member Role Status Dates Dr. Krystina Calle DO Primary Care Provider Active Dr. Monie Mckeon MD Attending Provider Active Chemical Recovery Operator Relationship Specialty Start Date End Date Krystina Calle DO PCP - General Family Medicine 05/20/15 Chemical Recovery Operator Relationship Specialty Start Date End Date Krystina Calle DO PCP - General Family Medicine 05/20/15 Chemical Recovery Operator Relationship Specialty Start Date End Date Krystina Calle DO PCP - General Family Medicine 05/20/15 Chemical Recovery Operator Relationship Specialty Start Date End Date Krystina Calle DO PCP - General Family Medicine 05/20/15 Monie Mckeon [address] [place] [address] DIRECTOR EPIDEMIOLOGY 07/25/22 Chemical Recovery Operator Relationship Specialty Start Date End Date Krystina Calle DO PCP - General Family Medicine 05/20/15 Monie Mckeon [address] [place] [address] DIRECTOR EPIDEMIOLOGY 07/25/22 Chemical Recovery Operator Relationship Specialty Start Date End Date Krystina Calle DO PCP - General Family Medicine 05/20/15 [address] Mckeon [address] [place] [address] DIRECTOR EPIDEMIOLOGY 07/25/22 Chemical Recovery Operator Relationship Specialty Start Date End Date Krystina Calle DO PCP - General Family Medicine 05/20/15 Monie Mckeon [address] [place] [address] DIRECTOR EPIDEMIOLOGY 07/25/22 Chemical Recovery Operator Relationship Specialty Start Date End Date Krystina Calle DO PCP - General Family Medicine 05/20/15 [address] [place] [address] DIRECTOR EPIDEMIOLOGY 07/25/22 Chemical Recovery Operator Relationship Specialty Start Date End Date Krystina Calle PCP - General Family Medicine 05/20/15 Monie Mckeon [address] [place] [address] DIRECTOR EPIDEMIOLOGY 07/25/22 Ligia Mtz RN Specialty Back End Architect Oncology 07/30/22 Chemical Recovery Operator Relationship Specialty Start Date End Date CarlyleKrystina pollard PCP - General Family Medicine 05/20/15 Monie Mckeon [address], [place] [phone]- DIRECTOR EPIDEMIOLOGY 07/25/22 Ligia Mtz RN Specialty Back End Architect Oncology 07/30/22 Chemical Recovery Operator Relationship Specialty Start Date End Date CarlyleKrystina pollardDO PCP - General Family Medicine 05/20/15 Monie Mckeon [address], [place] [address] 874- DIRECTOR EPIDEMIOLOGY 07/25/22 Ligia Mtz RN Specialty Back End Architect Oncology 07/30/22 Chemical Recovery Operator Relationship Specialty Start Date End Date Krystina Calle PCP - General Family Medicine 05/20/15 Monie Mckeon [address], [place] [address] 628- DIRECTOR EPIDEMIOLOGY 07/25/22 Ligia Mtz RN Specialty Back End Architect Oncology 07/30/22 Chemical Recovery Operator Relationship Specialty Start Date End Date Carlyleatul Krystina Sharp DO PCP - General Family Medicine 05/20/15 Monie Mckeon [address] [employer] [address] [place] [phone] DIRECTOR EPIDEMIOLOGY 07/25/22 Ligia Mtz RN Specialty Back End Architect Oncology 07/30/22 Chemical Recovery Operator Relationship Specialty Start Date End Date Krystina Calle DO PCP - General Family Medicine 05/20/15 Monie Mckeon [address] [employer] [phone] DIRECTOR EPIDEMIOLOGY 07/25/22 Ligia Mtz RN Specialty Back End Architect Oncology 07/30/22 Chemical Recovery Operator Relationship Specialty Start Date End Date Krystina Calle DO PCP - General Family Medicine 05/20/15 Monie Mckeon [address] [id number] DIRECTOR EPIDEMIOLOGY 07/25/22 Ligia Mtz RN Specialty Back End Architect Oncology 07/30/22 Chemical Recovery Operator Relationship Specialty Start Date End Date Krystina Calle DO PCP - General Family Medicine 05/20/15 Monie Mckeon [address] [phone]- DIRECTOR EPIDEMIOLOGY 07/25/22 Ligia Mtz RN Specialty Back End Architect Oncology 07/30/22 Chemical Recovery Operator Relationship Specialty Start Date End Date Krystina Calle DO PCP - General Family Medicine 05/20/15 [address]keon [address] [place] [phone] DIRECTOR EPIDEMIOLOGY 07/25/22 Ligia Mtz RN Specialty Back End Architect Oncology 07/30/22 Team Status: Inactive Member Role Status Dates Dr. Krystina Calle DO Primary Care Provider Active Mee Conroy JAVASCRIPT UI DEVELOPER, JAVASCRIPT UI DEVELOPER-C Attending Provider, Referring Provider Active Chemical Recovery Operator Relationship Specialty Start Date End Date Krystina Calle DO PCP - General Family Medicine 05/20/15 Monie Mckeon [address] [address] DIRECTOR EPIDEMIOLOGY 07/25/22 Ligia Mtz RN Specialty Back End Architect Oncology 07/30/22 Chemical Recovery Operator Relationship Specialty Start Date End Date Krystina Calle DO PCP - General Family Medicine 05/20/15 Monie Mckeon [address] [place] [address] DIRECTOR EPIDEMIOLOGY 07/25/22 Ligia Mtz, RN Specialty Back End Architect Oncology 07/30/22 Kasandra Jones LISW [address] [place] [address] Club Car Attendant Hematology/Oncology 01/24/23 Chemical Recovery Operator Relationship Specialty Start Date End Date Krystina Calle DO PCP - General Family Medicine 05/20/15 Monie Mckeon [address] [place] [phone] Food Checker 07/25/22 Ligia Mtz, RN Specialty Back End Architect Oncology 07/30/22 Kasandra Jones LISW [address] [place] [address] Club Car Attendant Hematology/Oncology 01/24/23 Fabiano Liz DO [address] [place] [address] Hematology/Oncology 04/26/23 Chemical Recovery Operator Relationship Specialty Start Date End Date Krystina Calle DO PCP - General Family Medicine 05/20/15 Monie Mckeon [address] [facility] [address] Food Checker 07/25/22 Ligia Mtz RN Specialty Back End Architect Oncology 07/30/22 Kasandra Jones, ERNESTO [address] [place] [address] Club Car Attendant Hematology/Oncology 01/24/23 Fabiano Liz DO [address] [place] [address] Hematology/Oncology 04/26/23 Chemical Recovery Operator Relationship Specialty Start Date End Date CarlyleatulKrystina DO PCP - General Family Medicine 05/20/15 Monie Mckeon [address] [facility] [address] Food Checker 07/25/22 Ligia Mtz RN Specialty Back End Architect Oncology 07/30/22 Kasandra Jones, DERMATOLOGICAL SURGEON [address] [place] [address] Club Car Attendant Hematology/Oncology 01/24/23 Fabiano Liz DO [address] [place] [address] Hematology/Oncology 04/26/23 Chemical Recovery Operator Relationship Specialty Start Date End Date Krystina Calle DO PCP - General Family Medicine 05/20/15 Monie Mckeon [address] [place] [address] Food Checker 07/25/22 Ligia Mtz, RN Specialty Back End Architect Oncology 07/30/22 Kasandra Jones LISW [address] [place] [address] Club Car Attendant Hematology/Oncology 01/24/23 Fabiano Liz DO [address] [place] [address] Hematology/Oncology 04/26/23 Chemical Recovery Operator Relationship Specialty Start Date End Date Krystina Calle DO PCP - General Family Medicine 05/20/15 Monie Mckeon MD [address] [facility] [address] Food Checker 07/25/22 Ligia Mtz RN Specialty Back End Architect Oncology 07/30/22 Kasandra Jones LISW [address] [place] [address] Club Car Attendant Hematology/Oncology 01/24/23 Fabiano Liz DO [address] [place] [address] Hematology/Oncology 04/26/23 Chemical Recovery Operator Relationship Specialty Start Date End Date Krystina Calle DO PCP - General Family Medicine 05/20/15 Monie Mckeon MD [address] [place] [address] Food Checker 07/25/22 Ligia Mtz, RN Specialty Back End Architect Oncology 07/30/22 Kasandra Jones, DERMATOLOGICAL SURGEON [address] [place] [address] Club Car Attendant Hematology/Oncology 01/24/23 Fabiano Liz DO [address] [place] [address] Hematology/Oncology 04/26/23 Chemical Recovery Operator Relationship Specialty Start Date End Date Krystina Calle DO PCP - General Family Medicine 05/20/15 Monie Mckeon MD [address] [place] [address] Food Checker 07/25/22 Ligia Mtz RN Specialty Back End Architect Oncology 07/30/22 Kasandra Jones, DERMATOLOGICAL SURGEON [address] [place] [address] Club Car Attendant Hematology/Oncology 01/24/23 Fabiano Liz DO [address] [place] [address] Hematology/Oncology 04/26/23 Chemical Recovery Operator Relationship Specialty Start Date End Date Krystina Calle DO PCP - General Family Medicine 05/20/15 Monie Mckeon MD [address] [place] [address] Food Checker 07/25/22 Ligia Mtz RN Specialty Back End Architect Oncology 07/30/22 Kasandra Jones LISW [address] [place] [address] Club Car Attendant Hematology/Oncology 01/24/23 Fabiano Liz DO [address] [place] [address] Hematology/Oncology 04/26/23 Chemical Recovery Operator Relationship Specialty Start Date End Date CarlyleatulKrystina DO PCP - General Family Medicine 05/20/15 Monie Mckeon MD [address] [facility] [address] Food Checker 07/25/22 Ligia Mtz RN Specialty Back End Architect Oncology 07/30/22 Kasandra Jones LISW [address] [place] [address] Club Car Attendant Hematology/Oncology 01/24/23 Fabiano Liz DO [address] [place] [address] Hematology/Oncology 04/26/23 Chemical Recovery Operator Relationship Specialty Start Date End Date LucKrystina DO PCP - General Family Medicine 05/20/15 Monie Mckeon MD [address] [facility] [address] Food Checker 07/25/22 Ligia Mtz RN Specialty Back End Architect Oncology 07/30/22 Kasandra Jones LISW [address] [place] [address] Club Car Attendant Hematology/Oncology 01/24/23 Fabiano Liz DO [address] [place] [address] Hematology/Oncology 04/26/23 Chemical Recovery Operator Relationship Specialty Start Date End Date Krystina Calle PCP - General Family Medicine 05/20/15 Monie Mckeon MD [address] [facility] [address] Food Checker 07/25/22 Ligia Mtz RN Specialty Back End Architect Oncology 07/30/22 Kasandra Jones LISW [address] [place] [address] Club Car Attendant Hematology/Oncology 01/24/23 Fabiano Liz DO [address] [place] [address] Hematology/Oncology 04/26/23 Chemical Recovery Operator Relationship Specialty Start Date End Date Krystina Calle PCP - General Family Medicine 05/20/15 Monie Mckeon MD [address] [facility] [address] Food Checker 07/25/22 Ligia Mtz RN Specialty Back End Architect Oncology 07/30/22 Kasandra Jones LISW [address] [place] [address] Club Car Attendant Hematology/Oncology 01/24/23 Fabiano Liz DO [address] [place] [address] Hematology/Oncology 04/26/23 Chemical Recovery Operator Relationship Specialty Start Date End Date Krystina aClle DO PCP - General Family Medicine 05/20/15 Monie Mckeon MD [address] [place], [place] [address] Food Checker 07/25/22 Ligia Mtz, RN Specialty Back End Architect Oncology 07/30/22 Kasandra Jones, DERMATOLOGICAL SURGEON [address] [place] [address] Club Car Attendant Hematology/Oncology 01/24/23 Fabiano Liz DO [address] [facility] [address] [place], [place] [address] Hematology/Oncology 04/26/23 Chemical Recovery Operator Relationship Specialty Start Date End Date Krystina Calle DO PCP - General Family Medicine 05/20/15 Monie Mckeon MD [address] [facility] [place], [place] [address] Food Checker 07/25/22 Ligia Mtz RN Specialty Back End Architect Oncology 07/30/22 Chemical Recovery Operator Relationship Specialty Start Date End Date Krystina Calle PCP - General Family Medicine 05/20/15 Monie Mckeon MD [address] [facility] [place], [place] [address] Food Checker 07/25/22 Ligia Mtz RN Specialty Back End Architect Oncology 07/30/22 Kasandra Jones, DERMATOLOGICAL SURGEON [address] [place] [address] Club Car Attendant Hematology/Oncology 01/24/23 Fabiano Liz DO [address] [place] [address] Hematology/Oncology 04/26/23 Chemical Recovery Operator Relationship Specialty Start Date End Date Krystina Calle PCP - General Family Medicine 05/20/15 Monie Mckeon MD [address] [place] [address] Food Checker 07/25/22 Ligia Mtz, RN Specialty Back End Architect Oncology 07/30/22 Kasandra Jones LISW [address] [place] [address] Club Car Attendant Hematology/Oncology 01/24/23 Fabiano Liz DO [address] [place] [address] Hematology/Oncology 04/26/23 Chemical Recovery Operator Relationship Specialty Start Date End Date Krystina Calle PCP - General Family Medicine 05/20/15 Monie Mckeon MD [address] [place] [address] Food Checker 07/25/22 Ligia Mtz, WENDIE Specialty Back End Architect Oncology 07/30/22 Kasandra Jones LISW [address] [place] [address] Club Car Attendant Hematology/Oncology 01/24/23 Fabiano Liz DO [address] [place] [address] Hematology/Oncology 04/26/23 Chemical Recovery Operator Relationship Specialty Start Date End Date Krystina Calle DO PCP - General Family Medicine 05/20/15 Monie Mckeon MD [address] [place] [address] Food Checker 07/25/22 Ligia Mtz RN Specialty Back End Architect Oncology 07/30/22 Kasandra Jones LISW [address] [place] [address] Club Car Attendant Hematology/Oncology 01/24/23 Fabiano Liz DO [address] [place] [address] Hematology/Oncology 04/26/23 Chemical Recovery Operator Relationship Specialty Start Date End Date Krystina Calle DO PCP - General Family Medicine 05/20/15 Monie Mckeon MD [address] [facility] [address] Food Checker 07/25/22 Ligia Mtz RN Specialty Back End Architect Oncology 07/30/22 Kasandra Jones LISW [address] [place] [address] Club Car Attendant Hematology/Oncology 01/24/23 Fabiano Liz DO [address] [place] [address] Hematology/Oncology 04/26/23 Chemical Recovery Operator Relationship Specialty Start Date End Date Krystina Calle DO PCP - General Family Medicine 05/20/15 Monie Mckeon MD [address] [facility] [address] Food Checker 07/25/22 Ligia Mtz, RN Specialty Back End Architect Oncology 07/30/22 Kasandra Jones LISW [address] [place] [address] Club Car Attendant Hematology/Oncology 01/24/23 Fabiano Liz DO [address] [place] [address] Hematology/Oncology 04/26/23 Team Status: Inactive Member Role [...] June 18, 2024 End: June 18, 2024 Chemical Recovery Operator Relationship Specialty Start Date End Date Krystina Calle DO PCP - General Family Medicine 05/20/15 Monie Mckeon MD [address] [place] [address] Food Checker 07/25/22 Ligia Mtz RN Specialty Back End Architect Oncology 07/30/22 Kasandra Jones LISW [address] [place] [address] Club Car Attendant Hematology/Oncology 01/24/23 Fabiano Liz DO [address] [place], [place] [id number] Hematology/Oncology 04/26/23 Team Status: Inactive Member Role [...] Active Start: November 04, 2024 Dr. Dallas oRjas MD Referring Provider Active Start: November 04, 2024 Team Status: Inactive Member Role/Relationship Status [...] DO Primary Care Provider Active Start: November 19, 2024 Dr. Dallas Rojas MD Attending Provider Active Start: November 19, 2024 Dr. Dallas Rojas MD Referring Provider Active Start: November 19, 2024 Team Status: Inactive Member Role/Relationship Status Dates Dr. Krystina Calle DO Primary Care Provider Active Start: November 28, 2024 End: November 28, 2024 Dr. Terry Pond DO Emergency Provider Active Start: November 28, 2024 End: November 28, 2024 Chemical Recovery Operator Relationship Specialty Start Date End Date Krystina Calle DO PCP - General Family Medicine 05/20/15 Monie Mckeon MD [address] [address] Food Checker 07/25/22 Ligia Mtz RN Specialty Back End Architect Oncology 07/30/22 Kasandra Jones LISW [address] [place] [address] Club Car Attendant Hematology/Oncology 01/24/23 Fabaino Liz DO [address] [place] [address] Hematology/Oncology 04/26/23 Team Status: Active Member Role/Relationship Status Dates Dr. Krystina Calle DO Primary care physician Active Team Status: Inactive Member Role/Relationship Status Dates Dr. Krystina Calle DO Primary care physician Active Start: October 29, 2024 End: October 29, 2024 Dr. Krystina Calle DO Attending physician Active S tart: October 29, 2024 End: October 29, 2024 Dr. Krystina Calle DO Referring Provider Active St art: October 29, 2024 End: October 29, 2024 Team Status: Active Member Role/Relationship Status Dates Dr. Krystina Calle DO Primary care physician Active Start: October 29, 2024 Health Risk Assessment Attending physician Active Start: October 29, 2024 Health Risk Assessment Referring Provider Active Start: October 29, 2024 Team Status: Inactive Member Role/Relationship Status Dates Dr. Krystina Calle DO Primary care physician Active Start: November 28, 2024 End: November 28, 2024 Dr. Terry Pond DO Attending physician Active Start: November 28, 2024 End: November 28, 2024 Dr. Terry Pond DO Emergency Departme nt Physician Active Start: November 28, 2024 End: November 28, 2024 Team Status: Inactive Member Role/Relationship Status Dates Dr. Krystina Calle DO Primary care physician Active Start: December 04, 2024 End: December 04, 2024 Dr. Fabiano Liz DO Attending physician Active S tart: December 04, 2024 End: December 04, 2024 Dr. Fabiano Liz DO Referring Provider Active St art: December 04, 2024 End: December 04, 2024 Team Status: Active Member Role/Relationship Status Dates Dr. Krystina Calle DO Primary care physician Active Start: December 16, 2024 Dr. Dallas Rojas MD Attending physician Active Start: December 16, 2024 Dr. Dallas Rojas MD Referring Provider Active Start: December 16, 2024 Source Comments (unrecognize d section and content) In the event this informatio n is protected by the Federal Confidentiality of Alcohol and Drug Abuse Patient Records regulations: The Federal rules restrict any use of the information to criminally investigate or prosecute any alcohol or drug abuse patient.[facility] HospitalIn the event this information is protected by the Federal Confidentiality of Alcohol and Drug Abuse Patient Records regulations: The Federal rules restrict any use of the information to criminally investigate or prosecute any alcohol or drug abuse patient.[facility] HospitalIn the event this information is protected by the Federal Confidentiality of Alcohol and Drug Abuse Patient Records regulations: The Federal rules restrict any use of the information to criminally investigate or prosecute any alcohol or drug abuse patient.[facility] HospitalIn the event this information is protected by the Federal Confidentiality of Alcohol and Drug Abuse Patient Records regulations: The Federal rules restrict any use of the information to criminally investigate or prosecute any alcohol or drug abuse patient.[facility] HospitalIn the event this information is protected by the Federal Confidentiality of Alcohol and Drug Abuse Patient Records regulations: The Federal rules restrict any use of the information to criminally investigate or prosecute any alcohol or drug abuse patient.[facility] HospitalIn the event this information is protected by the Federal Confidentiality of Alcohol and Drug Abuse Patient Records regulations: The Federal rules restrict any use of the information to criminally investigate or prosecute any alcohol or drug abuse patient.[facility] HospitalIn the event this information is protected by the Federal Confidentiality of Alcohol and Drug Abuse Patient Records regulations: The Federal rules restrict any use of the information to criminally investigate or prosecute any alcohol or drug abuse patient.[facility] HospitalIn the event this information is protected by the Federal Confidentiality of Alcohol and Drug Abuse Patient Records regulations: The Federal rules restrict any use of the information to criminally investigate or prosecute any alcohol or drug abuse patient.[facility] HospitalIn the event this information is protected by the Federal Confidentiality of Alcohol and Drug Abuse Patient Records regulations: The Federal rules restrict any use of the information to criminally investigate or prosecute any alcohol or drug abuse patient.[facility] HospitalIn the event this information is protected by the Federal Confidentiality of Alcohol and Drug Abuse Patient Records regulations: The Federal rules restrict any use of the information to criminally investigate or prosecute any alcohol or drug abuse patient.[facility] HospitalIn the event this information is protected by the Federal Confidentiality of Alcohol and Drug Abuse Patient Records regulations: The Federal rules restrict any use of the information to criminally investigate or prosecute any alcohol or drug abuse patient.[facility] HospitalIn the event this information is protected by the Federal Confidentiality of Alcohol and Drug Abuse Patient Records regulations: The Federal rules restrict any use of the information to criminally investigate or prosecute any alcohol or drug abuse patient.[facility] HospitalIn the event this information is protected by the Federal Confidentiality of Alcohol and Drug Abuse Patient Records regulations: The Federal rules restrict any use of the information to criminally investigate or prosecute any alcohol or drug abuse patient.[facility] HospitalIn the event this information is protected by the Federal Confidentiality of Alcohol and Drug Abuse Patient Records regulations: The Federal rules restrict any use of the information to criminally investigate or prosecute any alcohol or drug abuse patient.[facility] HospitalIn the event this information is protected by the Federal Confidentiality of Alcohol and Drug Abuse Patient Records regulations: The Federal rules restrict any use of the information to criminally investigate or prosecute any alcohol or drug abuse patient.[facility] HospitalIn the event this information is protected by the Federal Confidentiality of Alcohol and Drug Abuse Patient Records regulations: The Federal rules restrict any use of the information to criminally investigate or prosecute any alcohol or drug abuse patient.[facility] HospitalIn the event this information is protected by the Federal Confidentiality of Alcohol and Drug Abuse Patient Records regulations: The Federal rules restrict any use of the information to criminally investigate or prosecute any alcohol or drug abuse patient.[facility] HospitalIn the event this information is protected by the Federal Confidentiality of Alcohol and Drug Abuse Patient Records regulations: The Federal rules restrict any use of the information to criminally investigate or prosecute any alcohol or drug abuse patient.[facility] HospitalIn the event this information is protected by the Federal Confidentiality of Alcohol and Drug Abuse Patient Records regulations: The Federal rules restrict any use of the information to criminally investigate or prosecute any alcohol or drug abuse patient.[facility] HospitalIn the event this information is protected by the Federal Confidentiality of Alcohol and Drug Abuse Patient Records regulations: The Federal rules restrict any use of the information to criminally investigate or prosecute any alcohol or drug abuse patient.[facility] HospitalIn the event this information is protected by the Federal Confidentiality of Alcohol and Drug Abuse Patient Records regulations: The Federal rules restrict any use of the information to criminally investigate or prosecute any alcohol or drug abuse patient.[facility] HospitalIn the event this information is protected by the Federal Confidentiality of Alcohol and Drug Abuse Patient Records regulations: The Federal rules restrict any use of the information to criminally investigate or prosecute any alcohol or drug abuse patient.[facility] HospitalIn the event this information is protected by the Federal Confidentiality of Alcohol and Drug Abuse Patient Records regulations: The Federal rules restrict any use of the information to criminally investigate or prosecute any alcohol or drug abuse patient.[facility] HospitalIn the event this information is protected by the Federal Confidentiality of Alcohol and Drug Abuse Patient Records regulations: The Federal rules restrict any use of the information to criminally investigate or prosecute any alcohol or drug abuse patient.[facility] HospitalIn the event this information is protected by the Federal Confidentiality of Alcohol and Drug Abuse Patient Records regulations: The Federal rules restrict any use of the information to criminally investigate or prosecute any alcohol or drug abuse patient.[facility] HospitalIn the event this information is protected by the Federal Confidentiality of Alcohol and Drug Abuse Patient Records regulations: The Federal rules restrict any use of the information to criminally investigate or prosecute any alcohol or drug abuse patient.[facility] HospitalIn the event this information is protected by the Federal Confidentiality of Alcohol and Drug Abuse Patient Records regulations: The Federal rules restrict any use of the information to criminally investigate or prosecute any alcohol or drug abuse patient.[facility] HospitalIn the event this information is protected by the Federal Confidentiality of Alcohol and Drug Abuse Patient Records regulations: The Federal rules restrict any use of the information to criminally investigate or prosecute any alcohol or drug abuse patient.[facility] HospitalIn the event this information is protected by the Federal Confidentiality of Alcohol and Drug Abuse Patient Records regulations: The Federal rules restrict any use of the information to criminally investigate or prosecute any alcohol or drug abuse patient.[facility] HospitalIn the event this information is protected by the Federal Confidentiality of Alcohol and Drug Abuse Patient Records regulations: The Federal rules restrict any use of the information to criminally investigate or prosecute any alcohol or drug abuse patient.[facility] HospitalIn the event this information is protected by the Federal Confidentiality of Alcohol and Drug Abuse Patient Records regulations: The Federal rules restrict any use of the information to criminally investigate or prosecute any alcohol or drug abuse patient.[facility] HospitalIn the event this information is protected by the Federal Confidentiality of Alcohol and Drug Abuse Patient Records regulations: The Federal rules restrict any use of the information to criminally investigate or prosecute any alcohol or drug abuse patient.[facility] HospitalIn the event this information is protected by the Federal Confidentiality of Alcohol and Drug Abuse Patient Records regulations: The Federal rules restrict any use of the information to criminally investigate or prosecute any alcohol or drug abuse patient.[facility] HospitalIn the event this information is protected by the Federal Confidentiality of Alcohol and Drug Abuse Patient Records regulations: The Federal rules restrict any use of the information to criminally investigate or prosecute any alcohol or drug abuse patient.[facility] HospitalIn the event this information is protected by the Federal Confidentiality of Alcohol and Drug Abuse Patient Records regulations: The Federal rules restrict any use of the information to criminally investigate or prosecute any alcohol or drug abuse patient.[facility] HospitalIn the event this information is protected by the Federal Confidentiality of Alcohol and Drug Abuse Patient Records regulations: The Federal rules restrict any use of the information to criminally investigate or prosecute any alcohol or drug abuse patient.[facility] HospitalIn the event this information is protected by the Federal Confidentiality of Alcohol and Drug Abuse Patient Records regulations: The Federal rules restrict any use of the information to criminally investigate or prosecute any alcohol or drug abuse patient.[facility] HospitalIn the event this information is protected by the Federal Confidentiality of Alcohol and Drug Abuse Patient Records regulations: The Federal rules restrict any use of the information to criminally investigate or prosecute any alcohol or drug abuse patient.[facility] HospitalIn the event this information is protected by the Federal Confidentiality of Alcohol and Drug Abuse Patient Records regulations: The Federal rules restrict any use of the information to criminally investigate or prosecute any alcohol or drug abuse patient.[facility] HospitalIn the event this information is protected by the Federal Confidentiality of Alcohol and Drug Abuse Patient Records regulations: The Federal rules restrict any use of the information to criminally investigate or prosecute any alcohol or drug abuse patient.[facility] HospitalIn the event this information is protected by the Federal Confidentiality of Alcohol and Drug Abuse Patient Records regulations: The Federal rules restrict any use of the information to criminally investigate or prosecute any alcohol or drug abuse patient.[facility] HospitalIn the event this information is protected by the Federal Confidentiality of Alcohol and Drug Abuse Patient Records regulations: The Federal rules restrict any use of the information to criminally investigate or prosecute any alcohol or drug abuse patient.[facility] HospitalIn the event this information is protected by the Federal Confidentiality of Alcohol and Drug Abuse Patient Records regulations: The Federal rules restrict any use of the information to criminally investigate or prosecute any alcohol or drug abuse patient.[facility] HospitalIn the event this information is protected by the Federal Confidentiality of Alcohol and Drug Abuse Patient Records regulations: The Federal rules restrict any use of the information to criminally investigate or prosecute any alcohol or drug abuse patient.[facility] HospitalIn the event this information is protected by the Federal Confidentiality of Alcohol and Drug Abuse Patient Records regulations: The Federal rules restrict any use of the information to criminally investigate or prosecute any alcohol or drug abuse patient.[facility] HospitalIn the event this information is protected by the Federal Confidentiality of Alcohol and Drug Abuse Patient Records regulations: The Federal rules restrict any use of the information to criminally investigate or prosecute any alcohol or drug abuse patient.[facility] HospitalIn the event this information is protected by the Federal Confidentiality of Alcohol and Drug Abuse Patient Records regulations: The Federal rules restrict any use of the information to criminally investigate or prosecute any alcohol or drug abuse patient.[facility] HospitalIn the event this information is protected by the Federal Confidentiality of Alcohol and Drug Abuse Patient Records regulations: The Federal rules restrict any use of the information to criminally investigate or prosecute any alcohol or drug abuse patient.[facility] HospitalIn the event this information is protected by the Federal Confidentiality of Alcohol and Drug Abuse Patient Records regulations: The Federal rules restrict any use of the information to criminally investigate or prosecute any alcohol or drug abuse patient.[facility] HospitalIn the event this information is protected by the Federal Confidentiality of Alcohol and Drug Abuse Patient Records regulations: The Federal rules restrict any use of the information to criminally investigate or prosecute any alcohol or drug abuse patient.[facility] HospitalIn the event this information is protected by the Federal Confidentiality of Alcohol and Drug Abuse Patient Records regulations: The Federal rules restrict any use of the information to criminally investigate or prosecute any alcohol or drug abuse patient.[facility] HospitalIn the event this information is protected by the Federal Confidentiality of Alcohol and Drug Abuse Patient Records regulations: The Federal rules restrict any use of the information to criminally investigate or prosecute any alcohol or drug abuse patient.[facility] HospitalIn the event this information is protected by the Federal Confidentiality of Alcohol and Drug Abuse Patient Records regulations: The Federal rules restrict any use of the information to criminally investigate or prosecute any alcohol or drug abuse patient.[facility] HospitalIn the event this information is protected by the Federal Confidentiality of Alcohol and Drug Abuse Patient Records regulations: The Federal rules restrict any use of the information to criminally investigate or prosecute any alcohol or drug abuse patient.[facility] HospitalIn the event this information is protected by the Federal Confidentiality of Alcohol and Drug Abuse Patient Records regulations: The Federal rules restrict any use of the information to criminally investigate or prosecute any alcohol or drug abuse patient.[facility] HospitalIn the event this information is protected by the Federal Confidentiality of Alcohol and Drug Abuse Patient Records regulations: The Federal rules restrict any use of the information to criminally investigate or prosecute any alcohol or drug abuse patient.[facility] HospitalIn the event this information is protected by the Federal Confidentiality of Alcohol and Drug Abuse Patient Records regulations: The Federal rules restrict any use of the information to criminally investigate or prosecute any alcohol or drug abuse patient.[facility] HospitalIn the event this information is protected by the Federal Confidentiality of Alcohol and Drug Abuse Patient Records regulations: The Federal rules restrict any use of the information to criminally investigate or prosecute any alcohol or drug abuse patient.[facility] HospitalIn the event this information is protected by the Federal Confidentiality of Alcohol and Drug Abuse Patient Records regulations: The Federal rules restrict any use of the information to criminally investigate or prosecute any alcohol or drug abuse patient.[facility] HospitalIn the event this information is protected by the Federal Confidentiality of Alcohol and Drug Abuse Patient Records regulations: The Federal rules restrict any use of the information to criminally investigate or prosecute any alcohol or drug abuse patient.[facility] HospitalIn the event this information is protected by the Federal Confidentiality of Alcohol and Drug Abuse Patient Records regulations: The Federal rules restrict any use of the information to criminally investigate or prosecute any alcohol or drug abuse patient.[facility] HospitalIn the event this information is protected by the Federal Confidentiality of Alcohol and Drug Abuse Patient Records regulations: The Federal rules restrict any use of the information to criminally investigate or prosecute any alcohol or drug abuse patient.[facility] HospitalIn the event this information is protected by the Federal Confidentiality of Alcohol and Drug Abuse Patient Records regulations: The Federal rules restrict any use of the information to criminally investigate or prosecute any alcohol or drug abuse patient.[facility] Reason for Visit (unrecogniz ed section and content) Reason Comments Results High uric acid Reason Comments New Patient Evaluation Specialty Diagnoses / Procedures Referred By Contac t Referred To Contact Hematology/Oncology / HEMATOLOGY/ONCOLOGY Diagnoses 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.DR.LISA CALLE* Procedures NEW PATIENT Fabiano Liz, DO [address] [place] [address] Fabiano Liz, DO [address] [place] [address] Referral ID Status Reason Start Date Expiration Date V isits Requested Visits Authorized [id number] Pending Review 07/25/2022 10/23/2022 1 1 Reason Comments urgent results Reason Comments Results Blood PCR testing Reason Onset Date Comments SPP Oral Oncology/hematology - Treatment Referra l 07/26/2022 [employer] Insurance Authorization 07/26/2022 AZEB villanueva Reason Comments Bone Marrow Aspirate/Biopsy Reason Onset Date Comments Refill Request 08/02/2022 Reason Comments Back End Architect - Other Oral Anti-Cance r Agents Follow-up (Bosutinib) Reason Comments Chest Congestion cough x 8 days Reason Comments Back End Architect - Other Follow-up Reason Comments Results Reason Comments Established Patient Reason Comments Results CXR Reason Onset Date Comments Refill Request 12/28/2022 Reason Comments Established Patient Specialty Diagnoses / Procedures Referred By Contac t Referred To [facility] Diagnoses CML (chronic myelocytic leukemia) (HCC) Procedures ECHO ECHO TTHRC R-T 2D W/WOM-MODE COMPL SPEC&COLR D Fabiano Liz, DO [address] [place] [address] [facility] [address] [place] [address] Referral ID Status Reason Start Date Expiration Date V isits Requested Visits Authorized [id number] Closed Auto-Generate d Referral 04/26/2023 03/24/2024 1 [...] Date Comments Refill Request 05/13/2024 Reason Comments Back End Architect - Other Oral Anti-Cance r Agents Education (asciminib) Reason Comments Back End Architect - Other Oral Anti-Cance r Agents Follow-up [...] BE BASED ON THE PRIMARY CLINICAL RECORDS. [employer] provides no warranty or guarantee of the accuracy or completeness of information in this document.
--- NOTE | 2025-03-10 07:30 | BI_ITS ---
EXAM: SCRN MAMM (CAD)W/MI BILAT DATE: 03/10/2025 CLINICAL HISTORY: F, Age 50 y/o , SCREENING FOR BREAST CANCER No family history. TECHNIQUE: Procedure Code: [id number] Modality: MG Procedure: SCRN MAMM (CAD)W/MI BILAT COMPARISON: Prior exam(s) dated January 09, 2024.. FINDINGS: TISSUE DENSITY: There are scattered areas of fibroglandular density. Bilateral Breast Mammographic Findings: No significant masses, calcifications or other abnormalities are identified. No suspicious masses, areas of developing architectural distortion, or suspicious calcifications. There has been no significant interval change. BI/SCRN MAMM (CAD)W/MI BILAT IMPRESSION: Stable bilateral screening mammogram. OVERALL FINAL ASSESSMENT BI-RADS 1: NEGATIVE. RECOMMENDATION: Routine annual follow-up in 1 Year Additional Recommendation none A letter with findings and recommendations will be mailed to the patient. Reading Location: [facility]
== END | disposition home or self-care (01) ==
PROVIDERS: PCP Family Medicine; Referring Provider Obstetrics & Gynecology; Visit Provider Obstetrics & Gynecology
DX: Z12.31 Encounter for screening mammogram for malignant neoplasm of breast (principal)
CPT/HCPCS: 77063; 77067